=== PATIENT | male | born 1945 | race Caucasian/White ===

== ENCOUNTER 2016-07-30 07:43 | Day surgery (SDC) | payer MEDICARE, BC, OTHER ==
[2016-07-25 16:56] VITALS: BMI 29.7
[~2016-07-30 07:43] MED LIST: MOXIFLOXACIN HCL 0.5% DROPS 3 ML BTL OP ONE; TETRACAINE 0.5% OPHTH (PF) DROPS 4 ML BTL OP ONE; TIMOLOL 0.5% OPHTH SOLN (PF) 0.2 ML DROPERETTE OP ONE
[2016-07-30] MEDS ORDERED: LACTATED RINGERS 1,000 ML IV ONE (08:40)
[2016-07-30 08:45] VITALS: RESP 16; TEMP 97.2
[2016-07-30] MEDS: CYCLOPENTOLATE 1% OPHTH SOLN 2 ML BTL OP ONE ×3 (08:46→09:02)
[2016-07-30] MEDS: PHENYLEPHRINE 2.5% OPHTH DRP 2ML OP NR ×3 (08:50→09:05)
[2016-07-30] MEDS ORDERED: LACTATED RINGERS 1,000 ML IV SCH (09:03)
[2016-07-30] MEDS ORDERED: ALBUTEROL NEBULIZED 2.5 MG/3 ML INHALATION STA (09:07)
[2016-07-30 09:24] LABS: Glucose,Whole Blood 106 mg/dL (75-99)
[2016-07-30] MEDS ORDERED: BALANCED SALT IRRIG SOLN COMB2 15 ML IRRIG.SOLN IRRIGATION ONE (09:55)
[2016-07-30] MEDS ORDERED: LIDOCAINE 1% (PF) 10MG/ML VIAL MISCELLANE ONE (09:55)
[2016-07-30] MEDS ORDERED: HYALURONATE SODIUM INTRAOCULAR 1 EACH SYRINGE (12MG/ML) INTRAOCULA ONE (09:55)
[2016-07-30] MEDS ORDERED: ATROPINE OPHTH SOLN 1% 5ML BTL RIGHT EYE ONE (10:00)
[2016-07-30] MEDS ORDERED: MIDAZOLAM 2 MG/2 ML VIAL ONE (10:02)
[2016-07-30] MEDS ORDERED: EPINEPHrine (PF) 0.3 ML in BALANCED SALT IRRIG SOLN COMB2 500 ML IRRIGATION ONE (10:02)
[2016-07-30] MEDS ORDERED: fentaNYL (PF) 50 MCG/ML 2 ML AMP ONE (10:02)
--- NOTE | 2016-07-30 10:43 | P.OP ---
Date of Procedure: 07/30/16 Preoperative Diagnosis: NS & CS & reg Astig Postoperative Diagnosis: same Procedure(s) Performed: PIOL, OD Implants: BL1UT 19.50 x 2.00 Anesthesia: MAC Surgeon: Rickie Castaneda Estimated Blood Loss (ml): 0 Pathology: none sent Condition: stable Disposition: same day Indications for Procedure: blurry vision Operative Findings: no complications Description of Procedure:
[2016-07-30 11:02] VITALS: BP 152/87; PULSE 63
--- NOTE | 2016-07-31 07:09 | OP ---
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 POSTOPERATIVE DIAGNOSES: Nuclear sclerosis, cortical sclerosis, posterior subcapsular cataract and regular astigmatism. OPERATION: Phacoemulsification of cataract and intraocular lens implant of the right eye. ANESTHESIA: Topical. ESTIMATED BLOOD LOSS: None. SPECIMENS REMOVED: None. COMPLICATIONS: OPERATIVE FINDINGS: NARRATIVE: After obtaining the appropriate consent, the patient was brought to the operating room. There, he was asked to sit upright and the axis of 0 and 180 degrees was identified and marked with a gentian eric marker on the patient's corneal limbus. He was then laid in the proper supine position, prepped and draped in the usual sterile manner. He was approached from his right temporal side and a 5.5 mm Gustavo ring was placed centrally on the patient's cornea of the corneal reflection. The axis of 95 degrees which had been previously identified on preoperative examination was marked with a ( [employer] ) axis marker. At the 11 o'clock position a 1.1 mm stab blade was used to create a paracentesis port. Through this opening, 1% Xylocaine MPF 50-50 mix with balance salt solution was injected into the anterior chamber. This was followed by stabilization of the anterior chamber with Amvisc. At the 9 o'clock position a 2.75 mm sarahy keratome was used to create a self-sealing corneal flap incision. Through this opening, a cystotome was introduced to begin a continuous tear capsulorrhexis, which was completed using the Utrata forceps. Care was taken to ensure that the size of the rhexis was at least the size of the Gustavo eda placed on the patient's cornea. Hydrodissection and hydrodelineation of the lens was accomplished with balanced salt solution. Phacoemulsification of the lens utilizing phaco chop was accomplished in 14.8 seconds at 10% power. Additional Xylocaine MPF was instilled into the anterior chamber. This was followed by removal of the remaining cortex under irrigation and aspiration. Careful polishing was accomplished over the posterior capsule. Viscoelastic was then introduced into the capsular bag, and using both Clinton and pappose capsule polishers the equator and underside of the anterior capsule were polished using these devices. Additionally, the temporal incision was enlarged slightly with the sarahy keratome previously used to make the temporal incision. A [employer] Trulign Toric model BL1UT spherical equivalent of 19.5 diopters, cylindrical power 2.0, was inserted into the capsular bag without difficulty. The lens was rotated approximately 180 degrees to ensure that there was no residual cortex within the capsular bag. The lens was then brought back in alignment with the 95 degrees axis which had previously been noted on the patient's cornea. Removal of the viscoelastic from in and around the intraocular lens was accomplished using irrigation and aspiration as well as from within the anterior chamber. Final adjustments of the intraocular lens were made with a Sinskey hook to bring it into proper alignment. The eye was brought to normal intraocular pressure through the paracentesis port with balanced salt solution. ReSure was used to insure that the temporal and paracentesis wounds were to remain sealed to ensure watertight integrity. The patient received 2 drops of 0.5% timolol followed by 2 drops of Vigamox and a 1% drop of atropine. He was then lightly patched and shielded in the usual manner. There were no complications from the procedure. He tolerated the procedure well and was returned to outpatient recovery in good condition. CALVIN
== END 2016-07-30 11:47 | disposition home or self-care (01) ==
LOC: OR 07:43
PROVIDERS: ATTEND Ophthalmology
DX: H25.13 Age-related nuclear cataract, bilateral (principal); H25.013 Cortical age-related cataract, bilateral; H25.043 Posterior subcapsular polar age-related cataract, bilateral; H52.229 Regular astigmatism, unspecified eye; I10 Essential (primary) hypertension; J44.9 Chronic obstructive pulmonary disease, unspecified; J43.9 Emphysema, unspecified; Z79.82 Long term (current) use of aspirin; Z79.52 Long term (current) use of systemic steroids; Z79.899 Other long term (current) drug therapy; Z88.1 Allergy status to other antibiotic agents; Z91.030 Bee allergy status
CPT/HCPCS: 94640; 66984; V2632; V2788; J2250; J0171; J3010; J2001

== ENCOUNTER 2016-08-20 13:54 | Day surgery (SDC) | payer MEDICARE, BC ==
[2016-08-19 09:01] VITALS: BMI 29.7
[~2016-08-20 13:54] MED LIST changes: +LACTATED RINGERS 1,000 ML IV SCH
[2016-08-20 16:13] VITALS: TEMP 97.4
[2016-08-20] MEDS: PHENYLEPHRINE 2.5% OPHTH DRP 2ML OP NR ×3 (16:14→16:44)
[2016-08-20] MEDS: CYCLOPENTOLATE 1% OPHTH SOLN 2 ML BTL OP ONE ×3 (16:17→16:50)
[2016-08-20] MEDS ORDERED: ALBUTEROL NEBULIZED 2.5 MG/3 ML INHALATION STA (16:35)
[2016-08-20] MEDS ORDERED: MIDAZOLAM 2 MG/2 ML VIAL ONE (17:07)
[2016-08-20] MEDS ORDERED: fentaNYL (PF) 50 MCG/ML 2 ML AMP ONE (17:07)
[2016-08-20] MEDS ORDERED: DUOVISC KIT (GREEN BOX) INTRAOCULA ONE (17:22)
[2016-08-20] MEDS ORDERED: BALANCED SALT IRRIG SOLN COMB2 15 ML IRRIG.SOLN INTRAOCULA ONE (17:22)
[2016-08-20] MEDS ORDERED: EPINEPHrine (PF) 0.3 ML in BALANCED SALT IRRIG SOLN COMB2 500 ML IRRIGATION ONE (17:23)
[2016-08-20] MEDS ORDERED: LIDOCAINE 1% (PF) 10MG/ML VIAL MISCELLANE ONE (17:23)
[2016-08-20] MEDS ORDERED: ATROPINE OPHTH SOLN 1% 5ML BTL LEFT EYE ONE (17:45)
--- NOTE | 2016-08-20 17:51 | P.OP ---
Date of Procedure: 08/20/16 Preoperative Diagnosis: NS & CS & PSC reg astigmatism Postoperative Diagnosis: same Procedure(s) Performed: PIOL, OS Implants: BL1UT 20.50x1.25 Anesthesia: MAC Surgeon: Rickie Castaneda Estimated Blood Loss (ml): 0 Pathology: none sent Condition: stable Disposition: same day Indications for Procedure: blurry vision Operative Findings: No cmoplications Description of Procedure:
[2016-08-20 17:56] VITALS: RESP 16
[2016-08-20 18:12] VITALS: BP 156/73; PULSE 74
--- NOTE | 2016-08-21 12:42 | OP ---
DATE OF SERVICE: 08/20/2016 SURGEON: CATY CARPENTER MD PREOPERATIVE DIAGNOSIS: Nuclear sclerosis, cortical sclerosis, posterior subcapsular cataract and regular astigmatism. POSTOPERATIVE DIAGNOSIS: Nuclear sclerosis, cortical sclerosis, posterior subcapsular cataract and regular astigmatism. OPERATION: Phacoemulsification of cataract and intraocular lens implant of the left eye. ANESTHESIA: Topical. ESTIMATED BLOOD LOSS: None. SPECIMEN TAKEN: None. NARRATIVE: After obtaining the appropriate consent, the patient was brought to the operating room, he was asked to sit upright so that his corneal markings at 0 and 180 degrees were accomplished. This was done using a gentian eric marker. He was then placed in the proper supine position under cardiac monitoring then prepped and draped in the usual sterile manner. He was approached from his left temporal side. Using previously acquired corneal tomographic information axis of 65 degrees was identified and marked using the corneal axis marker inked in gentian eric. In addition to that a 5.5 mm Gustavo ring was placed directly over the Purkinje reflex. At the 5 o'clock position a 1.1 mm stab blade was used to create a paracentesis port. Through this opening, 1% Xylocaine MPF 50-50 mix with balance salt solution was injected into the anterior chamber. This was followed by stabilization of the anterior chamber with Amvisc. At the 3 o'clock position a 2.75 mm sarahy keratome was used to create a self-sealing corneal flap incision in a Langerman fashion. For this opening, a cystotome was introduced to begin a continuous tear capsulorrhexis, which was completed using the Utrata forceps. Care was taken to ensure that the size of the anterior rhexis was at least the size of the eda on the patient's eye from the Gustavo ring. Hydrodissection and hydrodelineation of the lens was accomplished with balanced salt solution. Phacoemulsification of the lens utilizing phaco chop was accomplished in 10.89 seconds at 8% power. Additional Xylocaine MPF was instilled into the anterior chamber. This was followed by removal of the remaining cortex under irrigation and aspiration along with careful polishing of the posterior capsule and capsule vacuum mode. Additional viscoelastic was then used to stabilize the capsular bag using both Elyssa and papoose capsule polishers. Care was taken to ensure as much of the debris from within the capsular equator, anterior capsule and any stubborn debris that was noted was removed from the posterior capsule. The temporal incision was then enlarged slightly with the keratome and a [employer] Trulign model BL1UT 20.5 diopter, 1.25 cylindrical intraocular lens was then inserted into the capsular bag without difficulty. The intraocular lens was rotated approximately 270 degrees and then finally set for alignment with the previously placed corneal axis [place]. The remaining viscoelastic was then removed from in and around the intraocular lens using irrigation and aspiration. Final adjustment of the intraocular lens position was confirmed using the corneal axis marker and the eye was then brought to normal intraocular pressure through the paracentesis port. The temporal incision was coated with ( ReSure ) to ensure proper maintenance of closure so that the intraocular lens did not rotate. He then received 2 drops of 0.5% timolol, 2 drops of 1% atropine and 2 drops of Vigamox. He was then lightly patched and shielded in the usual manner. There were no complications from the procedure. He tolerated the procedure well and was returned to outpatient recovery in good condition. CALVIN
== END 2016-08-20 18:31 | disposition home or self-care (01) ==
LOC: OR 13:54
PROVIDERS: ATTEND Ophthalmology
DX: H25.12 Age-related nuclear cataract, left eye (principal); H25.042 Posterior subcapsular polar age-related cataract, left eye; H52.222 Regular astigmatism, left eye; Z79.82 Long term (current) use of aspirin; Z79.899 Other long term (current) drug therapy; Z88.5 Allergy status to narcotic agent; J44.9 Chronic obstructive pulmonary disease, unspecified; I10 Essential (primary) hypertension
CPT/HCPCS: 94640; 66984; V2632; V2788; J2250; J0171; J3010; J2001

== ENCOUNTER 2018-09-01 15:31 | Inpatient (IN) | payer MEDICARE, BC ==
[2018-09-01] MEDS ORDERED: methylPREDNISolone SOD SUCCI 125 MG/2 ML VIAL IV STA (17:01)
[2018-09-01] MEDS ORDERED: IPRATROPIUM-ALBUTEROL 3 ML NEB INHALATION STA ×3 (17:01→19:43)
--- NOTE | 2018-09-01 17:08 | ED ---
SOB HPI - General Chief Complaint: Shortness of Breath Stated Complaint: SOB Time Seen by Provider: 09/01/18 15:50 Source: patient, RN notes reviewed Mode of arrival: wheelchair Limitations: no limitations - History of Present Illness Initial Comments: This is a 72-year-old male with a history of COPD who states he went out fishing in [place] 3 and 4 days ago who is been having trouble breathing since that time. He seen his advice clerk as late as yesterday with medications and increased home medication. He states is not helping very much she is here today because of the shortness of breath. He denies any fevers chills nausea vomiting sweats he was started on her right as well as amoxicillin. He states he is not getting better he denies any chest pain or other symptoms at this time MD Complaint: shortness of breath - Related Data Home Medications Medication Instructions Recorded Confirmed Montelukast Sodium [Singulair] 10 mg PO HS 01/24/14 09/01/18 Albuterol Nebulized [Ventolin 2.5 mg INHALATION RT-TID 07/25/16 09/01/18 Nebulized] Aspirin [Adult Low Dose Aspirin EC] 81 mg PO DAILY 07/25/16 09/01/18 Metoprolol Tartrate [Lopressor] 25 mg PO BID 07/25/16 09/01/18 Omeprazole 20 mg PO DAILY 07/25/16 09/01/18 Tiotropium [place] [Spiriva] 1 cap INHALATION RT-DAILY 07/25/16 09/01/18 Cetirizine HCl [Zyrtec] 10 mg PO DAILY 08/19/16 09/01/18 ALPRAZolam [Xanax] 0.5 mg PO TID 09/01/18 09/01/18 Amoxic-Pot Clav 875-125Mg 1 tab PO BID 09/01/18 09/01/18 [Augmentin 875-125] Ascorbic Acid [Vitamin C] 1,000 mg PO DAILY 09/01/18 09/01/18 Budesonide [Pulmicort] 0.5 mg INHALATION RT-BID 09/01/18 09/01/18 Cholecalciferol [Vitamin D3 (25 1,000 unit PO DAILY 09/01/18 09/01/18 Mcg = 1000 Iu)] Doxazosin [Cardura] 4 mg PO HS 09/01/18 09/01/18 Ipratropium-Albuterol Nebulize 3 ml INHALATION RT-BID 09/01/18 09/01/18 [Duoneb 0.5 mg-3 mg/3 ml Soln] L.acidoph,Paracasei, B.lactis 1 cap PO DAILY 09/01/18 09/01/18 [Probiotic] Lisinopril [Zestril] 5 mg PO DAILY 09/01/18 09/01/18 Melatonin 10 mg PO DAILY 09/01/18 09/01/18 Sodium Chloride 0.9% Nebuliz 3 ml INHALATION RT-BID 09/01/18 09/01/18 [Saline 0.9% For Nebulization] Tiotropium 18 Mcg/Puff [Spiriva] 1 puff INHALATION RT-DAILY 09/01/18 09/01/18 guaiFENesin 400 mg PO BID 09/01/18 09/01/18 predniSONE See Taper PO DAILY 09/01/18 09/01/18 Allergies Allergy/AdvReac Type Severity Reaction Status Date / Time cefepime Allergy SHUT DOWN Verified 09/01/18 16:41 KIDNEYS ether Allergy Anaphylaxis Verified 09/01/18 16:41 Iodinated Contrast- Oral and Allergy PAST Verified 09/01/18 16:41 IV Dye HISTORY OF [Iodinated Contrast Media - KIDNEY Oral and] PROBLEMS venom-honey bee Allergy Anaphylaxis Verified 09/01/18 16:41 Review of Systems ROS Statement: Those systems with pertinent positive or pertinent negative responses have been documented in the HPI. ROS Other: All systems not noted in ROS Statement are negative. Past Medical History Past Medical History: Blood Disorder, COPD, Eye Disorder, GERD/Reflux, Hypertension Additional Past Medical History / Comment(s): arthritis, diverticulits, Factor V Leiden, bronchial silicone stent, BILAT CATARACTS History of Any Multi-Drug Resistant Organisms: None Reported Past Surgical History: Tonsillectomy Additional Past Surgical History / Comment(s): bronchial silicone stent, fatty tumor removed from chest area, COLONOSCOPY,CATARACT RIGHT EYE Past Anesthesia/Blood Transfusion Reactions: Previous Problems w/ Anesthesia Additional Past Anesthesia/Blood Transfusion Reaction / Comment(s): "as infant turned black and blue from ETHER". FACTOR V LEIDEN Past Psychological History: Anxiety Smoking Status: Former smoker - Past Family History Father Family Medical History: Cancer Mother Family Medical History: Cancer General Exam - General Exam Comments Initial Comments: Is a well-developed sec appearing male who is awake alert oriented 3 Limitations: no limitations General appearance: alert, in no apparent distress Head exam: Present: atraumatic, normocephalic, normal inspection Eye exam: Present: normal appearance, PERRL, EOMI. Absent: scleral icterus, conjunctival injection, periorbital swelling ENT exam: Present: normal exam, mucous membranes moist Neck exam: Present: normal inspection. Absent: tenderness, meningismus, lymph adenopathy Respiratory exam: Present: wheezes, decreased breath sounds. Absent: respiratory distress, rales, rhonchi, stridor Cardiovascular Exam: Present: normal rhythm, tachycardia, normal heart sounds. Absent: systolic murmur, diastolic murmur, rubs, gallop, clicks GI/Abdominal exam: Present: soft, normal bowel sounds. Absent: distended, tenderness, guarding, rebound, rigid Extremities exam: Present: normal inspection, full ROM, normal capillary refill. Absent: tenderness, pedal edema, joint swelling, calf tenderness Back exam: Present: normal inspection Neurological exam: Present: alert, oriented X3, CN II-XII intact Psychiatric exam: Present: normal affect, normal mood Skin exam: Present: warm, dry, intact, normal color. Absent: rash Course Vital Signs 09/01/18 09/01/18 09/01/18 15:35 16:00 16:30 Temperature 97.9 F Pulse Rate 101 H 96 84 Respiratory 24 18 19 Rate Blood Pressure 155/80 146/74 141/69 O2 Sat by Pulse 94 L 94 L 97 Oximetry 09/01/18 09/01/18 09/01/18 17:00 17:02 17:27 Temperature Pulse Rate 80 77 79 Respiratory 20 22 Rate Blood Pressure 132/75 131/74 O2 Sat by Pulse 95 95 Oximetry 09/01/18 09/01/18 09/01/18 17:30 17:36 17:53 Temperature 97.8 F Pulse Rate 80 78 Respiratory 20 Rate Blood Pressure 131/74 O2 Sat by Pulse 97 Oximetry Medical Decision Making - Medical Decision Making I did reevaluate patient several occasions he seem very minimal improvement in his presenting symptoms this far he will be admitted to Dr. Pickering who is on city call Dr. Curry will be consulted. - Lab Data Result diagrams: 09/01/18 17:45 06/26/19 17:45 Lab Results 09/01/18 09/01/18 09/01/18 Range/Units 17:45 17:45 17:45 WBC 12.6 H (3.8-10.6) k/uL RBC 4.21 L (4.30-5.90) m/uL Hgb 12.1 L (13.0-17.5) gm/dL Hct 38.6 L (39.0-53.0) % MCV 91.7 (80.0-100.0) fL MCH 28.8 (25.0-35.0) pg MCHC 31.4 (31.0-37.0) g/dL RDW 15.0 (11.5-15.5) % Plt Count 316 (150-450) k/uL Neutrophils % 86 % Lymphocytes % 9 % Monocytes % 3 % Eosinophils % 1 % Basophils % 0 % Neutrophils # 10.9 H (1.3-7.7) k/uL Lymphocytes # 1.2 (1.0-4.8) k/uL Monocytes # 0.4 (0-1.0) k/uL Eosinophils # 0.1 (0-0.7) k/uL Basophils # 0.0 (0-0.2) k/uL PT (9.0-12.0) sec INR (<1.2) APTT (22.0-30.0) sec Sodium 140 (137-145) mmol/L Potassium 4.5 (3.5-5.1) mmol/L Chloride 106 (98-107) mmol/L Carbon Dioxide 25 (22-30) mmol/L Anion Gap 9 mmol/L BUN 33 H (9-20) mg/dL Creatinine 1.16 (0.66-1.25) mg/dL Est GFR (CKD-EPI)AfAm 72 (>60 ml/min/1.73 sqM) Est GFR (CKD-EPI)NonAf 62 (>60 ml/min/1.73 sqM) Glucose 111 H (74-99) mg/dL Calcium 9.7 (8.4-10.2) mg/dL Magnesium 1.9 (1.6-2.3) mg/dL Total Bilirubin 0.5 (0.2-1.3) mg/dL AST 27 (17-59) U/L ALT 30 (21-72) U/L Alkaline Phosphatase 64 (38-126) U/L Troponin I (0.000-0.034) ng/mL NT-Pro-B Natriuret Pep 1010 pg/mL Total Protein 7.0 (6.3-8.2) g/dL Albumin 4.2 (3.5-5.0) g/dL 09/01/18 09/01/18 Range/Units 17:45 17:45 WBC (3.8-10.6) k/uL RBC (4.30-5.90) m/uL Hgb (13.0-17.5) gm/dL Hct (39.0-53.0) % MCV (80.0-100.0) fL MCH (25.0-35.0) pg MCHC (31.0-37.0) g/dL RDW (11.5-15.5) % Plt Count (150-450) k/uL Neutrophils % % Lymphocytes % % Monocytes % % Eosinophils % % Basophils % % Neutrophils # (1.3-7.7) k/uL Lymphocytes # (1.0-4.8) k/uL Monocytes # (0-1.0) k/uL Eosinophils # (0-0.7) k/uL Basophils # (0-0.2) k/uL PT 10.0 (9.0-12.0) sec INR 0.9 (<1.2) APTT 24.3 (22.0-30.0) sec Sodium (137-145) mmol/L Potassium (3.5-5.1) mmol/L Chloride (98-107) mmol/L Carbon Dioxide (22-30) mmol/L Anion Gap mmol/L BUN (9-20) mg/dL Creatinine (0.66-1.25) mg/dL Est GFR (CKD-EPI)AfAm (>60 ml/min/1.73 sqM) Est GFR (CKD-EPI)NonAf (>60 ml/min/1.73 sqM) Glucose (74-99) mg/dL Calcium (8.4-10.2) mg/dL Magnesium (1.6-2.3) mg/dL Total Bilirubin (0.2-1.3) mg/dL AST (17-59) U/L ALT (21-72) U/L Alkaline Phosphatase (38-126) U/L Troponin I <0.012 (0.000-0.034) ng/mL NT-Pro-B Natriuret Pep pg/mL Total Protein (6.3-8.2) g/dL Albumin (3.5-5.0) g/dL - EKG Data -: EKG Interpreted by Me EKG shows normal: sinus rhythm (Sinus rhythm with frequent PVCs rate was 95. Interval 192 QRS duration 106 QT since QTC 368/[address] configuration) - Radiology Data Radiology results: report reviewed (I did review the imaging and report no acute changes are noted chronic changes are seen), image reviewed Critical Care Time Critical Care Time: Yes Critical Care Time: 31 minutes of critical care time which was initial presentation with history physical labs x-rays multiple reevaluation the patient responsive therapy review of old charting was available discussed with patient family members discussion with the main physician admission orders and documentation of the above Disposition Clinical Impression: Acute exacerbation of chronic obstructive airways disease, Adult respiratory distress syndrome, Failure of outpatient treatment Disposition: ADMITTED IP TO THIS HOSP Condition: Fair Referrals: Keshawn Suarez MD [Primary Care Provider] - 1-2 days
[2018-09-01 18:00] LABS: Basophils % (A) 0 %; Eosinophils # (A) 0.1 k/uL (0-0.7); Eosinophils % (A) 1 %; HCT 38.6 % (39.0-53.0); HGB 12.1 gm/dL (13.0-17.5); Lymphocytes # (A) 1.2 k/uL (1.0-4.8); Lymphocytes % (A) 9 %; MCH 28.8 pg (25.0-35.0); MCHC 31.4 g/dL (31.0-37.0); MCV 91.7 fL (80.0-100.0); Mean Platelet Volume 7.2; Monocytes # (A) 0.4 k/uL (0-1.0); Monocytes % (A) 3 %; Neutrophils # (A) 10.9 k/uL (1.3-7.7); Neutrophils % (A) 86 %; Platelet Count 316 k/uL (150-450); RBC 4.21 m/uL (4.30-5.90); WBC 12.6 k/uL (3.8-10.6)
--- NOTE | 2018-09-01 18:05 | XR ---
EXAMINATION: XR chest 2V DATE AND TIME: 09/01/2018 5:24 PM CLINICAL INDICATION: PHH; difficulty breathing TECHNIQUE: Departmental protocol COMPARISON: 08/31/2018 FINDINGS: There is hyperinflation, but the lungs are clear of acute processes. The lateral radiograph redemonst rates the previously seen band of added opacity over the cardiac silhouette, corresponding with the r ight middle lobe lateral segment. The pleural spaces are negative. The cardiac silhouette is not enlarged. The remainder of the mediastinal silhouette is unremarkable. The skeletal structures and soft tissues are negative for acute findings. IMPRESSION: 1. NO ACUTE PROCESS. 2. Chronic right middle lobe lateral segment band of volume loss redemonstrated, going back to 2018 r adiographs. Nonurgent follow-up chest CT with contrast is advised to further characterize.
[2018-09-01 18:09] LABS: INR 0.9 (<1.2); Partial Thromboplastin Time 24.3 sec (22.0-30.0)
[2018-09-01 18:11] LABS: Albumin 4.2 g/dL (3.5-5.0); Calcium 9.7 mg/dL (8.4-10.2); Magnesium 1.9 mg/dL (1.6-2.3); Potassium 4.5 mmol/L (3.5-5.1); Total Bilirubin 0.5 mg/dL (0.2-1.3)
[2018-09-01] MEDS ORDERED: MAGNESIUM SULFATE-D5W PMX 1 GM in DEXTROSE/WATER 1 100ML.BAG IVPB ONE (19:20)
[2018-09-01] MEDS: BUDESONIDE 0.5 MG/2 ML NEBU INHALATION SCH (20:11)
[2018-09-01] MEDS: IPRATROPIUM-ALBUTEROL 3 ML NEB INHALATION SCH ×2 (20:12→23:43)
[2018-09-01] MEDS: MONTELUKAST 10 MG TAB PO SCH (22:01)
[2018-09-01] MEDS: guaiFENesin SYRUP 100MG/5ML 200 MG/10 ML CUP PO SCH (22:02)
[2018-09-01] MEDS: METOPROLOL TARTRATE 25 MG TAB PO SCH (22:02)
[2018-09-01] MEDS: ALPRAZolam 0.5 MG TAB PO SCH (22:02)
[2018-09-01] MEDS: DOXAZOSIN 4 MG TAB PO SCH (22:02)
[2018-09-01] MEDS: AMOXIC-POT CLAV 875-125MG 1 EACH TAB PO SCH (22:05)
[2018-09-02] MEDS: methylPREDNISolone SOD SUCCI 125 MG/2 ML VIAL IV SCH ×5 (00:18→23:25)
[2018-09-02] MEDS: IPRATROPIUM-ALBUTEROL 3 ML NEB INHALATION SCH ×7 (03:08→23:32)
[2018-09-02] MEDS: BUDESONIDE 0.5 MG/2 ML NEBU INHALATION SCH ×2 (06:59→18:55)
[2018-09-02] MEDS ORDERED: NON-FORMULARY DRUG (Tiotropium Bromide [Spiriva] 1 CAP) INHALATION SCH (08:00)
[2018-09-02] MEDS ORDERED: MELATONIN 5 MG TABLET PO SCH ×2 (09:00→21:00)
[2018-09-02] MEDS ORDERED: PANTOPRAZOLE 40 MG TABLET PO SCH (09:00)
[2018-09-02] MEDS: CHOLECALCIFEROL 1,000 UNIT TAB PO SCH ×2 (09:19→09:20)
[2018-09-02] MEDS: METOPROLOL TARTRATE 25 MG TAB PO SCH ×2 (09:19→20:51)
[2018-09-02] MEDS: LISINOPRIL 5 MG TAB PO SCH (09:20)
[2018-09-02] MEDS: ALPRAZolam 0.5 MG TAB PO SCH ×3 (09:20→21:12)
[2018-09-02] MEDS: AMOXIC-POT CLAV 875-125MG 1 EACH TAB PO SCH ×2 (09:20→20:50)
[2018-09-02] MEDS: ASPIRIN 81 MG PO SCH (09:20)
[2018-09-02] MEDS: ASCORBIC ACID 500 MG TAB PO SCH (09:20)
[2018-09-02] MEDS: LORATADINE 10 MG TAB PO SCH (09:21)
[2018-09-02] MEDS: guaiFENesin SYRUP 100MG/5ML 200 MG/10 ML CUP PO SCH ×2 (09:21→20:52)
[2018-09-02] MEDS: LACTOBACILLUS ACIDOPH & BULGAR 1 EACH PACKET PO SCH (09:21)
--- NOTE | 2018-09-02 11:13 | P.HPIM ---
History of Present Illness This is a pleasant 72 years old male with past medical history of COPD status post bronchial stent, GERD, hypertension, diverticulitis, factor V laiden deficiency , bilateral cataract. [facility] His primary care physician is Dr. Keshawn Suarez. He presents with dyspnea and worsening cough with clear phlegm for 4-5 days duration. He denies chest pain only with coughing. 2 days ago on Thursday he so Dr. Cortez in the office, where his chest x-ray was negative as per patient, he was placed on prednisone and Augmentin. However Thursday evening and yesterday morning he noticed his oxygen was a dropping in the 80s on exertion and coming back to normal at rest so he came to emergency room. He has pulse oximetry at home He denies abdominal pain, no change in urine or bowel habits. No dizziness. Patient states that he has history of hyponatremia and certain point was 118 and that his physician recommended salt with diets, so his diet was changed from a heart healthy to regular upon his request he is not on home oxygen or steroids. Vital signs stable and patient is afebrile, saturating 93% on 3 L. leukocytosis of 12.6 k, creatinine 1.1, troponin is negative, rest of CBC and BMP were unremarkable. INR 0.9, liver enzymes not elevated. EKG showing normal sinus rhythm at 95 with PVC, nonspecific ST-T elevation, QTC 462. Chest x-ray: No acute process and right [place] lobe band of volume loss, recommended computed tomography scan with contrast. In the emergency room patient was started on bronchodilator and parenteral steroids. also Augmentin Review of Systems CONSTITUTIONAL: No fever, no malaise, no fatigue. HEENT: No recent visual problems or hearing problems. Denied any sore throat. CARDIOVASCULAR: No orthopnea, PND, no palpitations, no syncope. PULMONARY: No shortness of breath, no cough, no hemoptysis. GASTROINTESTINAL: No diarrhea, no nausea, no vomiting, no abdominal pain. Normoactive bowel sounds. NEUROLOGICAL: No headaches, no weakness, no numbness. HEMATOLOGICAL: Denies any bleeding or petechiae. GENITOURINARY: Denies any burning micturition, frequency, or urgency. MUSCULOSKELETAL/RHEUMATOLOGICAL: Denies any joint pain, swelling, or any muscle pain. ENDOCRINE: Denies any polyuria or polydipsia. Past Medical History Past Medical History: Blood Disorder, COPD, Eye Disorder, GERD/Reflux, Hypertension Additional Past Medical History / Comment(s): arthritis, diverticulits, Factor V Leiden, bronchial silicone stent, BILAT CATARACTS History of Any Multi-Drug Resistant Organisms: None Reported Past Surgical History: Hernia Repair, Tonsillectomy Additional Past Surgical History / Comment(s): bronchial silicone stent, fatty tumor removed from chest area, COLONOSCOPY,CATARACT RIGHT EYE Past Anesthesia/Blood Transfusion Reactions: Previous Problems w/ Anesthesia Additional Past Anesthesia/Blood Transfusion Reaction / Comment(s): "as turned black and blue from ETHER". FACTOR V LEIDEN Past Psychological History: Anxiety Smoking Status: Former smoker Past Alcohol Use History: None Reported Additional Past Alcohol Use History / Comment(s): STARTED SMOKING AT AGE 14 ,QUIT SMOKING 2012 Past Drug Use History: None Reported - Past Family History Father Family Medical History: Cancer Additional Family Medical History / Comment(s): colon cancer Mother Family Medical History: Cancer Additional Family Medical History / Comment(s): leukemia Medications and Allergies Home Medications Medication Instructions Recorded Confirmed Type Montelukast Sodium [Singulair] 10 mg PO HS 01/24/14 09/01/18 History Albuterol Nebulized [Ventolin 2.5 mg INHALATION RT-TID 07/25/16 09/01/18 History Nebulized] Aspirin [Adult Low Dose Aspirin EC] 81 mg PO DAILY 07/25/16 09/01/18 History Metoprolol Tartrate [Lopressor] 25 mg PO BID 07/25/16 09/01/18 History Omeprazole 20 mg PO DAILY 07/25/16 09/01/18 History Tiotropium [place] [Spiriva] 1 cap INHALATION RT-DAILY 07/25/16 09/01/18 History Cetirizine HCl [Zyrtec] 10 mg PO DAILY 08/19/16 09/01/18 History ALPRAZolam [Xanax] 0.5 mg PO TID 09/01/18 09/01/18 History Amoxic-Pot Clav 875-125Mg 1 tab PO BID 09/01/18 09/01/18 History [Augmentin 875-125] Ascorbic Acid [Vitamin C] 1,000 mg PO DAILY 09/01/18 09/01/18 History Budesonide [Pulmicort] 0.5 mg INHALATION RT-BID 09/01/18 09/01/18 History Cholecalciferol [Vitamin D3 (25 1,000 unit PO DAILY 09/01/18 09/01/18 History Mcg = 1000 Iu)] Doxazosin [Cardura] 4 mg PO HS 09/01/18 09/01/18 History Ipratropium-Albuterol Nebulize 3 ml INHALATION RT-BID 09/01/18 09/01/18 History [Duoneb 0.5 mg-3 mg/3 ml Soln] L.acidoph,Paracasei, B.lactis 1 cap PO DAILY 09/01/18 09/01/18 History [Probiotic] Lisinopril [Zestril] 5 mg PO DAILY 09/01/18 09/01/18 History Melatonin 10 mg PO DAILY 09/01/18 09/01/18 History Sodium Chloride 0.9% Nebuliz 3 ml INHALATION RT-BID 09/01/18 09/01/18 History [Saline 0.9% For Nebulization] Tiotropium 18 Mcg/Puff [Spiriva] 1 puff INHALATION RT-DAILY 09/01/18 09/01/18 History guaiFENesin 400 mg PO BID 09/01/18 09/01/18 History predniSONE See Taper PO DAILY 09/01/18 09/01/18 History Allergies Allergy/AdvReac Type Severity Reaction Status Date / Time cefepime Allergy SHUT DOWN Verified 09/01/18 16:41 KIDNEYS ether Allergy Anaphylaxis Verified 09/01/18 16:41 Iodinated Contrast- Oral and Allergy PAST Verified 09/01/18 16:41 IV Dye HISTORY OF [Iodinated Contrast Media - KIDNEY Oral and] PROBLEMS venom-honey bee Allergy Anaphylaxis Verified 09/01/18 16:41 Physical Exam Vitals: Vital Signs Temp Pulse Pulse Pulse Resp BP BP 09/02/18 10:52 98.2 F 83 20 128/67 09/02/18 08:00 77 18 09/02/18 07:15 82 09/02/18 06:59 80 09/02/18 04:57 88 09/02/18 04:49 88 09/02/18 04:35 97.5 F L 77 18 116/59 09/02/18 00:00 18 09/01/18 20:57 97.5 F L 88 18 136/64 09/01/18 20:08 84 09/01/18 19:40 80 09/01/18 19:23 98.2 F 95 18 118/66 09/01/18 17:53 97.8 F 09/01/18 17:36 78 09/01/18 17:30 80 20 131/74 09/01/18 17:27 79 09/01/18 17:02 77 22 131/74 09/01/18 17:00 80 20 132/75 09/01/18 16:30 84 19 141/69 09/01/18 16:00 96 18 146/74 09/01/18 15:35 97.9 F 101 H 24 155/80 Pulse Ox 09/02/18 10:52 95 09/02/18 08:00 09/02/18 07:15 09/02/18 06:59 09/02/18 04:57 09/02/18 04:49 09/02/18 04:35 93 L 09/02/18 00:00 09/01/18 20:57 96 09/01/18 20:08 09/01/18 19:40 09/01/18 19:23 97 09/01/18 17:53 09/01/18 17:36 09/01/18 17:30 97 09/01/18 17:27 09/01/18 17:02 95 09/01/18 17:00 95 09/01/18 16:30 97 09/01/18 16:00 94 L 09/01/18 15:35 94 L Intake and Output 09/01/18 09/02/18 09/02/18 22:59 06:59 14:59 Intake Total 236 Balance 236 Intake: Oral 236 Other: Voiding Method Toilet Toilet # Voids 1 Weight 74.843 kg GENERAL: The patient is alert and oriented x3, not in any acute distress. Well developed, well nourished. HEENT: Pupils are round and equally reacting to light. EOMI. No scleral icterus. No conjunctival pallor. Normocephalic, atraumatic. No pharyngeal erythema. No thyromegaly. CARDIOVASCULAR: S1 and S2 present. No murmurs, rubs, or gallops. -PULMONARY: Chest is clear to auscultation, scattered expiratory wheezing. No c rackles. ABDOMEN: Soft, nontender, nondistended, normoactive bowel sounds. No palpable organomegaly. MUSCULOSKELETAL: No joint swelling or deformity. EXTREMITIES: No cyanosis, clubbing, or pedal edema. NEUROLOGICAL: Gross neurological examination did not reveal any focal deficits. SKIN: No rashes. Results CBC & Chem 7: 09/01/18 17:45 09/01/18 17:45 Labs: Abnormal Lab Results - Last 24 Hours (Table) 09/01/18 09/01/18 Range/Units 17:45 17:45 WBC 12.6 H (3.8-10.6) k/uL RBC 4.21 L (4.30-5.90) m/uL Hgb 12.1 L (13.0-17.5) gm/dL Hct 38.6 L (39.0-53.0) % Neutrophils # 10.9 H (1.3-7.7) k/uL BUN 33 H (9-20) mg/dL Glucose 111 H (74-99) mg/dL Thrombosis Risk Factor Assmnt - Choose All That Apply Any of the Below Risk Factors Present?: Yes Each Factor Represents 1 point: Abnormal pulmonary function (COPD), Age 41-60 years Other Risk Factors: Yes Each Risk Factor Represents 2 Points: Age 61-74 years Thrombosis Risk Factor Assessment Total Risk Factor Score: 4 Thrombosis Risk Factor Assessment Level: Moderate Risk Assessment and Plan Assessment: Acute COPD exacerbation. Failed outpatient management Acute hypoxic respiratory failure Right middle lobe band of volume loss, recommended CAT scan of the chest by radiologist Hypertension Leukocytosis, He is on steroids as well History of hyponatremia History of GERD History of Diverticulitis History of factor V laiden deficiency Bilateral cataract Plan: This is a pleasant 72 years old male who presents because of COPD exacerbation. Continue with oxygen, steroids, breathing treatment and bronchodilator. Continue with antibiotic. Pulmonary consult. Labs and medication were reviewed.. Continue same treatment. Continue with symptomatic treatment. Resume home medication. Monitor lytes and vitals. DVT and GI prophylaxis. Further recommendations of the clinical course of the patient DVT prophylaxis: Subcutaneous heparin GI Prophylaxis: Pepcid PT/OT: Pending Prognosis is guarded
--- NOTE | 2018-09-02 13:02 | P.CNPUL ---
History of Present Illness Consult date: 09/02/18 Requesting physician: Beau Curry Reason for consult: dyspnea, cough, COPD, hypoxemia Chief complaint: Cough, congestion, acute on chronic hypoxemic respiratory failure History of present illness: This is a 72-year-old white male patient with past medical history of advanced COPD, with baseline FEV1 of 1.04 L or 39% of predicted, consistent with stage III COPD, patient used to wear oxygen, but has not worn it in the last year, who presented to the emergency department on 09/01/2018 with significant trouble breathing, patient's pulse ox was in the 80s at home, he has been progressively worse since the weekend. He states he has been out fishing on Thursday and Thursday morning, in the morning temp's were 49F, and increased humidity, may have precipitated his exacerbation of COPD. He denied any fevers, chills, denies any nausea vomiting. Patient follows with Dr. Keshawn Suarez for primary care services, also follows with Dr. Cortez in the pulmonary clinic, he was seen by Dr. Cortez on outpatient basis on Thursday, was given IM dose of Depo-Medrol, was started on Augmentin. He was started on a prednisone burst taper, his maintenance inhalers include nebulized Pulmicort and Perforomist, he was recently restarted on Spiriva, patient is on Singulair, and Claritin. Chest x-ray was completed showed no acute process. Showed chronic right middle lobe lateral segment volume loss, previously seen on radiographs from 2018. Lab work showed a white blood cell count of 12.6, hemoglobin of 12.1, platelet count was 316, electrodes are within normal limits, BUN is 33, creatinine is 1.16, proBNP is 1010, troponin was negative 1, LFTs within normal limits. Review of Systems All systems: negative Constitutional: Denies chills, Denies fever Eyes: denies blurred vision, denies pain Ears, nose, mouth and throat: Denies headache, Denies sore throat Cardiovascular: Denies chest pain, Denies shortness of breath Respiratory: Reports cough with sputum, Reports dyspnea, Reports home oxygen, Reports respiratory infections, Reports wheezing, Denies cough Gastrointestinal: Denies abdominal pain, Denies diarrhea, Denies nausea, Denies vomiting Musculoskeletal: Denies myalgias Integumentary: Denies pruritus, Denies rash Neurological: Denies numbness, Denies weakness Psychiatric: Denies anxiety, Denies depression Endocrine: Denies fatigue, Denies weight change Past Medical History Past Medical History: Blood Disorder, COPD, Eye Disorder, GERD/Reflux, Hypertension Additional Past Medical History / Comment(s): arthritis, diverticulits, Factor V Leiden, bronchial silicone stent, BILAT CATARACTS History of Any Multi-Drug Resistant Organisms: None Reported Past Surgical History: Hernia Repair, Tonsillectomy Additional Past Surgical History / Comment(s): bronchial silicone stent, fatty tumor removed from chest area, COLONOSCOPY,CATARACT RIGHT EYE Past Anesthesia/Blood Transfusion Reactions: Previous Problems w/ Anesthesia Additional Past Anesthesia/Blood Transfusion Reaction / Comment(s): "as infant turned black and blue from ETHER". FACTOR V LEIDEN Past Psychological History: Anxiety Smoking Status: Former smoker Past Alcohol Use History: None Reported Additional Past Alcohol Use History / Comment(s): STARTED SMOKING AT AGE 14 ,QUIT SMOKING 2012 Past Drug Use History: None Reported - Past Family History Father Family Medical History: Cancer Additional Family Medical History / Comment(s): colon cancer Mother Family Medical History: Cancer Additional Family Medical History / Comment(s): leukemia Medications and Allergies Home Medications Medication Instructions Recorded Confirmed Type Montelukast Sodium [Singulair] 10 mg PO HS 01/24/14 09/01/18 History Albuterol Nebulized [Ventolin 2.5 mg INHALATION RT-TID 07/25/16 09/01/18 History Nebulized] Aspirin [Adult Low Dose Aspirin EC] 81 mg PO DAILY 07/25/16 09/01/18 History Metoprolol Tartrate [Lopressor] 25 mg PO BID 07/25/16 09/01/18 History Omeprazole 20 mg PO DAILY 07/25/16 09/01/18 History Tiotropium [place] [Spiriva] 1 cap INHALATION RT-DAILY 07/25/16 09/01/18 History Cetirizine HCl [Zyrtec] 10 mg PO DAILY 08/19/16 09/01/18 History ALPRAZolam [Xanax] 0.5 mg PO TID 09/01/18 09/01/18 History Amoxic-Pot Clav 875-125Mg 1 tab PO BID 09/01/18 09/01/18 History [Augmentin 875-125] Ascorbic Acid [Vitamin C] 1,000 mg PO DAILY 09/01/18 09/01/18 History Budesonide [Pulmicort] 0.5 mg INHALATION RT-BID 09/01/18 09/01/18 History Cholecalciferol [Vitamin D3 (25 1,000 unit PO DAILY 09/01/18 09/01/18 History Mcg = 1000 Iu)] Doxazosin [Cardura] 4 mg PO HS 09/01/18 09/01/18 History Ipratropium-Albuterol Nebulize 3 ml INHALATION RT-BID 09/01/18 09/01/18 History [Duoneb 0.5 mg-3 mg/3 ml Soln] L.acidoph,Paracasei, B.lactis 1 cap PO DAILY 09/01/18 09/01/18 History [Probiotic] Lisinopril [Zestril] 5 mg PO DAILY 09/01/18 09/01/18 History Melatonin 10 mg PO DAILY 09/01/18 09/01/18 History Sodium Chloride 0.9% Nebuliz 3 ml INHALATION RT-BID 09/01/18 09/01/18 History [Saline 0.9% For Nebulization] Tiotropium 18 Mcg/Puff [Spiriva] 1 puff INHALATION RT-DAILY 09/01/18 09/01/18 History guaiFENesin 400 mg PO BID 09/01/18 09/01/18 History predniSONE See Taper PO DAILY 09/01/18 09/01/18 History Allergies Allergy/AdvReac Type Severity Reaction Status Date / Time cefepime Allergy SHUT DOWN Verified 09/01/18 16:41 KIDNEYS ether Allergy Anaphylaxis Verified 09/01/18 16:41 Iodinated Contrast- Oral and Allergy PAST Verified 09/01/18 16:41 IV Dye HISTORY OF [Iodinated Contrast Media - KIDNEY Oral and] PROBLEMS venom-honey bee Allergy Anaphylaxis Verified 09/01/18 16:41 Physical Exam Vitals: Vital Signs Temp Pulse Pulse Pulse Resp BP BP 09/02/18 12:14 97.6 F 80 17 115/65 09/02/18 12:12 83 77 20 09/02/18 11:05 85 09/02/18 10:54 84 09/02/18 10:52 98.2 F 83 20 128/67 09/02/18 08:00 77 18 09/02/18 07:15 82 09/02/18 06:59 80 09/02/18 04:57 88 09/02/18 04:49 88 09/02/18 04:35 97.5 F L 77 18 116/59 09/02/18 00:00 18 09/01/18 20:57 97.5 F L 88 18 136/64 09/01/18 20:08 84 09/01/18 19:40 80 09/01/18 19:23 98.2 F 95 18 118/66 09/01/18 17:53 97.8 F 09/01/18 17:36 78 09/01/18 17:30 80 20 131/74 09/01/18 17:27 79 09/01/18 17:02 77 22 131/74 09/01/18 17:00 80 20 132/75 09/01/18 16:30 84 19 141/69 09/01/18 16:00 96 18 146/74 09/01/18 15:35 97.9 F 101 H 24 155/80 Pulse Ox 09/02/18 12:14 95 09/02/18 12:12 09/02/18 11:05 09/02/18 10:54 09/02/18 10:52 95 09/02/18 08:00 09/02/18 07:15 09/02/18 06:59 09/02/18 04:57 09/02/18 04:49 09/02/18 04:35 93 L 09/02/18 00:00 09/01/18 20:57 96 09/01/18 20:08 09/01/18 19:40 09/01/18 19:23 97 09/01/18 17:53 09/01/18 17:36 09/01/18 17:30 97 09/01/18 17:27 09/01/18 17:02 95 09/01/18 17:00 95 09/01/18 16:30 97 09/01/18 16:00 94 L 09/01/18 15:35 94 L Intake and Output 09/01/18 09/02/18 09/02/18 22:59 06:59 14:59 Intake Total 236 240 Balance 236 240 Intake: Oral 236 240 Other: Voiding Method Toilet Toilet # Voids 1 3 Weight 74.843 kg GENERAL EXAM: Alert, wasn't, 72-year-old white male on 2 L of oxygen with a pulse ox of 95%, comfortable in no apparent distress. HEAD: Normocephalic/atraumatic. EYES: Normal reaction of pupils, equal size. Conjunctiva pink, sclera white. NOSE: Clear with pink turbinates. THROAT: No erythema or exudates. NECK: No masses, no JVD, no thyroid enlargement, no adenopathy. CHEST: No chest wall deformity. Symmetrical expansion. LUNGS: Equal air entry with diminished breath sounds at the bases, no significant wheezing, rhonchi or rales CVS: Regular rate and rhythm, normal S1 and S2, no gallops, no murmurs, no rubs ABDOMEN: Soft, nontender. No hepatosplenomegaly, normal bowel sounds, no guarding or rigidity. EXTREMITIES: No clubbing, no edema, no cyanosis, 2+ pulses and upper and lower extremities. MUSCULOSKELETAL: Muscle strength and tone normal. SPINE: No scoliosis or deformity SKIN: No rashes CENTRAL NERVOUS SYSTEM: Alert and oriented -3. No focal deficits, tone is normal in all 4 extremities. PSYCHIATRIC: Alert and oriented -3. Appropriate affect. Intact judgment and insight. Results - Laboratory Findings CBC and BMP: 09/01/18 17:45 09/01/18 17:45 PT/INR, D-dimer PT 10.0 sec (9.0-12.0) 09/01/18 17:45 INR 0.9 (<1.2) 09/01/18 17:45 Abnormal lab findings: Abnormal Labs 09/01/18 09/01/18 17:45 17:45 WBC 12.6 H RBC 4.21 L Hgb 12.1 L Hct 38.6 L Neutrophils # 10.9 H BUN 33 H Glucose 111 H - Diagnostic Findings Chest x-ray: report reviewed, image reviewed Assessment and Plan Plan: Assessment: #1. Acute on chronic hypoxemic respiratory failure related to acute exacerbation of COPD, chest x-ray showed no acute pulmonary process, failure of outpatient treatment. #2. History of advanced COPD, with a baseline FEV1 of 1.04 L or 39% predicted, consistent with stage III COPD, patient used to wear oxygen at home, however has not worn it lately in the last year, history of bronchial stenting, tracheobronchomalacia #3. GERD/reflux #4. Hypertension #5. Factor V Leiden deficiency #6. Bilateral cataracts #7. Former smoker, quit smoking 2012, carries 53 years of smoking #8. Anxiety #9. History of recurrent pseudomonal pulmonary infections #10. Obstructive sleep apnea on CPAP therapy Plan: We'll continue with current medical treatment, IV steroids, nebulized bronchodilators, Pulmicort and Perforomist, and antibiotics, will treat the patient's acute exacerbation of COPD. Chest X-ray has been reviewed, showing no acute pulmonary process. We'll obtain a sputum culture in view of patient's history of pseudomonal infections. We'll continue to follow. I performed a history & physical examination of the patient and discussed their management with my nurse practitioner, Koki Dwyer. I reviewed the nurse practitioner's note and agree with the documented findings and plan of care. Lung sounds are positive for diminished breath sounds throughout the lung diaz. The findings and the impression was discussed with the patient. I attest to the documentation by the nurse practitioner. Time with Patient: Greater than 30
[2018-09-02] MEDS: INSULIN ASPART (NovoLOG) 100 UNIT/ML VIAL SQ SCH ×3 (13:07→20:33)
[2018-09-02 17:50] LABS: Glucose,Whole Blood 199 mg/dL (75-99)
[2018-09-02 20:21] LABS: Glucose,Whole Blood 104 mg/dL (75-99)
[2018-09-02] MEDS: MONTELUKAST 10 MG TAB PO SCH (20:51)
[2018-09-02] MEDS: DOXAZOSIN 4 MG TAB PO SCH (21:13)
[2018-09-03] MEDS: IPRATROPIUM-ALBUTEROL 3 ML NEB INHALATION SCH ×3 (04:01→11:32)
[2018-09-03 05:59] VITALS: RESP 18; TEMP 97.6
[2018-09-03] MEDS ORDERED: PANTOPRAZOLE 40 MG TABLET PO SCH (06:00)
[2018-09-03] MEDS: methylPREDNISolone SOD SUCCI 125 MG/2 ML VIAL IV SCH ×2 (06:02→13:11)
[2018-09-03 07:23] LABS: Glucose,Whole Blood 146 mg/dL (75-99)
[2018-09-03] MEDS: BUDESONIDE 0.5 MG/2 ML NEBU INHALATION SCH (07:32)
[2018-09-03] MEDS: INSULIN ASPART (NovoLOG) 100 UNIT/ML VIAL SQ SCH ×2 (09:12→13:11)
[2018-09-03] MEDS: ASPIRIN 81 MG PO SCH (09:14)
[2018-09-03] MEDS: ALPRAZolam 0.5 MG TAB PO SCH (09:14)
[2018-09-03] MEDS: ASCORBIC ACID 500 MG TAB PO SCH (09:14)
[2018-09-03] MEDS: AMOXIC-POT CLAV 875-125MG 1 EACH TAB PO SCH (09:14)
[2018-09-03] MEDS: guaiFENesin SYRUP 100MG/5ML 200 MG/10 ML CUP PO SCH (09:15)
[2018-09-03] MEDS: LACTOBACILLUS ACIDOPH & BULGAR 1 EACH PACKET PO SCH (09:16)
[2018-09-03] MEDS: LORATADINE 10 MG TAB PO SCH (09:16)
[2018-09-03] MEDS: METOPROLOL TARTRATE 25 MG TAB PO SCH (09:25)
[2018-09-03] MEDS: LISINOPRIL 5 MG TAB PO SCH (09:25)
[2018-09-03 11:01] LABS: Glucose,Whole Blood 168 mg/dL (75-99)
[2018-09-03 11:29] VITALS: BP 113/62
[2018-09-03 11:35] VITALS: PULSE 74
--- NOTE | 2018-09-03 12:09 | P.DS ---
Providers Date of admission: 09/01/18 19:22 Attending physician: Beau Curry MD Consults: 09/01/18 19:22 Consult Physician Routine Consulting Provider: Ramona Cortez Consult Reason/Comments: COPD exacerbation, outpatient treatment failure Do you want consulting provider notified?: Yes 09/02/18 11:12 Consult Physician Urgent Consulting Provider: Roque Perez Consult Reason/Comments: copd failed outpt Rx Do you want consulting provider notified?: Yes Primary care physician: Keshawn Suarez MD Hospital Course: Diagnoses: Acute COPD exacerbation. Failed outpatient management Acute hypoxic respiratory failure Right middle lobe band of volume loss, recommended CAT scan of the chest by radiologist Hypertension Leukocytosis, He is on steroids as well History of hyponatremia History of GERD History of Diverticulitis History of factor V laiden deficiency Bilateral cataract Hospital course This is a pleasant 72 years old male with past medical history of COPD status post bronchial stent, GERD, hypertension, diverticulitis, factor V laiden deficiency , bilateral cataract. He follows with Dr. Cortez/Chris in the outpatient setting. His primary care physician is Dr. Keshawn Suarez. He presents with dyspnea and worsening cough with clear phlegm for 4-5 days duration. He denies chest pain only with coughing. 2 days ago on Thursday he so Dr. Cortez in the office, where his chest x-ray was negative as per patient, he was placed on prednisone and Augmentin. However Thursday evening and yesterday morning he noticed his oxygen was a dropping in the 80s on exertion and coming back to normal at rest so he came to emergency room. He has pulse oximetry at home. Patient was admitted to the hospital treated with intravenous steroids and antibiotics Augmentin, patient showed interval improvement in his back to his baseline. Patient has been evaluated by [facility] director Dr. Perez sees him in the office as well, Dr. Perez clears the patient today for discharge. Patient was eager to go home and states that his back to his baseline. Exertional oxygen is checked and about 90%. Problems and management plan were discussed with the patient and he verbalized understanding and acceptance Patient was found stable and can be discharged home however he needs follow-up as an outpatient. Patient was instructed to follow up with his PCP in one week and with his [facility] director Dr. Cortez in 2 weeks and he agrees Gen: patient is a AAOx3, no distress CVS: S1-S2, RRR, no murmur Lungs: B/L CTA, no wheezing Abdomen: soft, no distention, no tenderness, positive bowel sounds Extremity: no leg edema or induration Time spent more than 35 minutes Patient Condition at Discharge: Fair Plan - Discharge Summary Discharge Rx Participant: No New Discharge Prescriptions: Continue RX: Montelukast Sodium [Singulair] 10 mg PO HS RX: Tiotropium [place] [Spiriva] 1 cap INHALATION RT-DAILY RX: Omeprazole 20 mg PO DAILY RX: Metoprolol Tartrate [Lopressor] 25 mg PO BID RX: Albuterol Nebulized [Ventolin Nebulized] 2.5 mg INHALATION RT-TID RX: Aspirin [Adult Low Dose Aspirin EC] 81 mg PO DAILY RX: Cetirizine HCl [Zyrtec] 10 mg PO DAILY RX: Tiotropium 18 Mcg/Puff [Spiriva] 1 puff INHALATION RT-DAILY RX: Melatonin 10 mg PO DAILY RX: L.acidoph,Paracasei, B.lactis [Probiotic] 1 cap PO DAILY RX: Ascorbic Acid [Vitamin C] 1,000 mg PO DAILY RX: Sodium Chloride 0.9% Nebuliz [Saline 0.9% For Nebulization] 3 ml INHALATION RT-BID RX: Budesonide [Pulmicort] 0.5 mg INHALATION RT-BID RX: Lisinopril [Zestril] 5 mg PO DAILY RX: Ipratropium-Albuterol Nebulize [Duoneb 0.5 mg-3 mg/3 ml Soln] 3 ml INHALATION RT-BID RX: Cholecalciferol [Vitamin D3 (25 Mcg = 1000 Iu)] 1,000 unit PO DAILY RX: Doxazosin [Cardura] 4 mg PO HS RX: predniSONE See Taper PO DAILY RX: ALPRAZolam [Xanax] 0.5 mg PO TID RX: Amoxic-Pot Clav 875-125Mg [Augmentin 875-125] 1 tab PO BID RX: guaiFENesin 400 mg PO BID Discharge Medication List RX: Montelukast Sodium [Singulair] 10 mg PO HS 01/24/14 [History] RX: Albuterol Nebulized [Ventolin Nebulized] 2.5 mg INHALATION RT-TID 07/25/16 [History] RX: Aspirin [Adult Low Dose Aspirin EC] 81 mg PO DAILY 07/25/16 [History] RX: Metoprolol Tartrate [Lopressor] 25 mg PO BID 07/25/16 [History] RX: Omeprazole 20 mg PO DAILY 07/25/16 [History] RX: Tiotropium [place] [Spiriva] 1 cap INHALATION RT-DAILY 07/25/16 [History] RX: Cetirizine HCl [Zyrtec] 10 mg PO DAILY 08/19/16 [History] RX: ALPRAZolam [Xanax] 0.5 mg PO TID 09/01/18 [History] RX: Amoxic-Pot Clav 875-125Mg [Augmentin 875-125] 1 tab PO BID 09/01/18 [History] RX: Ascorbic Acid [Vitamin C] 1,000 mg PO DAILY 09/01/18 [History] RX: Budesonide [Pulmicort] 0.5 mg INHALATION RT-BID 09/01/18 [History] RX: Cholecalciferol [Vitamin D3 (25 Mcg = 1000 Iu)] 1,000 unit PO DAILY 09/01/18 [History] RX: Doxazosin [Cardura] 4 mg PO HS 09/01/18 [History] RX: Ipratropium-Albuterol Nebulize [Duoneb 0.5 mg-3 mg/3 ml Soln] 3 ml INHALATION RT-BID 09/01/18 [History] RX: L.acidoph,Paracasei, B.lactis [Probiotic] 1 cap PO DAILY 09/01/18 [History] RX: Lisinopril [Zestril] 5 mg PO DAILY 09/01/18 [History] RX: Melatonin 10 mg PO DAILY 09/01/18 [History] RX: Sodium Chloride 0.9% Nebuliz [Saline 0.9% For Nebulization] 3 ml INHALATION RT-BID 09/01/18 [History] RX: Tiotropium 18 Mcg/Puff [Spiriva] 1 puff INHALATION RT-DAILY 09/01/18 [History] RX: guaiFENesin 400 mg PO BID 09/01/18 [History] RX: predniSONE See Taper PO DAILY 09/01/18 [History] Follow up Appointment(s)/Referral(s): Keshawn Suarez MD [Primary Care Provider] - 1-2 days
--- NOTE | 2018-09-03 12:32 | P.PN ---
Subjective Progress Note Date: 09/03/18 Principal diagnosis: Cough, congestion, acute on chronic hypoxic respiratory failure This is a 72-year-old white male patient with past medical history of advanced COPD, with baseline FEV1 of 1.04 L or 39% of predicted, consistent with stage III COPD, patient used to wear oxygen, but has not worn it in the last year, who presented to the emergency department on 09/01/2018 with significant trouble breathing, patient's pulse ox was in the 80s at home, he has been progressively worse since the weekend. He states he has been out fishing on Thursday and Thursday morning, in the morning temp's were 49F, and increased humidity, may have precipitated his exacerbation of COPD. He denied any fevers, chills, denies any nausea vomiting. Patient follows with Dr. Keshawn Suarez for primary care services, also follows with Dr. Cortez in the pulmonary clinic, he was seen by Dr. Cortez on outpatient basis on Thursday, was given IM dose of Depo-Medrol, was started on Augmentin. He was started on a prednisone burst taper, his maintenance inhalers include nebulized Pulmicort and Perforomist, he was recently restarted on Spiriva, patient is on Singulair, and Claritin. Chest x- ray was completed showed no acute process. Showed chronic right middle lobe lateral segment volume loss, previously seen on radiographs from 2018. Lab work showed a white blood cell count of 12.6, hemoglobin of 12.1, platelet count was 316, electrodes are within normal limits, BUN is 33, creatinine is 1.16, proBNP is 1010, troponin was negative 1, LFTs within normal limits. On 09/03/2018 patient seen in follow-up on medical surgical floor. He is breathing much easier today, pulse ox is 95%, he has been up ambulating in the room, tolerating activity well, afebrile, hemodynamically stable, lung sounds are essentially clear on today's exam, slightly diminished in the bases, no significant cough or congestion. Much improved since admission, no new chest x- rays, no new labs. Objective - Vital Signs Vital signs: Vital Signs Temp 97.6 F 09/03/18 11:06 Pulse 74 09/03/18 11:45 Resp 18 09/03/18 11:06 BP 113/62 09/03/18 11:06 Pulse Ox 95 09/03/18 11:06 Intake & Output 09/02/18 09/03/18 09/03/18 18:59 06:59 18:59 Intake Total 240 540 Balance 240 540 Intake: Oral 240 540 Other: Voiding Method Toilet Toilet Toilet # Voids 3 2 - Exam GENERAL EXAM: Alert, wasn't, 72-year-old white male on room air, comfortable in no apparent distress. HEAD: Normocephalic/atraumatic. EYES: Normal reaction of pupils, equal size. Conjunctiva pink, sclera white. NOSE: Clear with pink turbinates. THROAT: No erythema or exudates. NECK: No masses, no JVD, no thyroid enlargement, no adenopathy. CHEST: No chest wall deformity. Symmetrical expansion. LUNGS: Equal air entry with diminished breath sounds at the bases, no significant wheezing, rhonchi or rales CVS: Regular rate and rhythm, normal S1 and S2, no gallops, no murmurs, no rubs ABDOMEN: Soft, nontender. No hepatosplenomegaly, normal bowel sounds, no guarding or rigidity. EXTREMITIES: No clubbing, no edema, no cyanosis, 2+ pulses and upper and lower extremities. MUSCULOSKELETAL: Muscle strength and tone normal. SPINE: No scoliosis or deformity SKIN: No rashes CENTRAL NERVOUS SYSTEM: Alert and oriented -3. No focal deficits, tone is normal in all 4 extremities. PSYCHIATRIC: Alert and oriented -3. Appropriate affect. Intact judgment and insight. - Labs CBC & Chem 7: 09/01/18 17:45 09/01/18 17:45 Labs: Abnormal Lab Results - Last 24 Hours (Table) 09/02/18 09/02/18 09/03/18 Range/Units 17:49 20:20 07:21 POC Glucose (mg/dL) 199 H 104 H 146 H (75-99) mg/dL 09/03/18 Range/Units 10:57 POC Glucose (mg/dL) 168 H (75-99) mg/dL Assessment and Plan Plan: Assessment: #1. Acute on chronic hypoxemic respiratory failure related to acute exacerbation of COPD, chest x-ray showed no acute pulmonary process, failure of outpatient treatment. #2. History of advanced COPD, with a baseline FEV1 of 1.04 L or 39% predicted, consistent with stage III COPD, patient used to wear oxygen at home, however has not worn it lately in the last year, history of bronchial stenting, tracheobronchomalacia #3. GERD/reflux #4. Hypertension #5. Factor V Leiden deficiency #6. Bilateral cataracts #7. Former smoker, quit smoking 2012, carries 53 years of smoking #8. Anxiety #9. History of recurrent pseudomonal pulmonary infections #10. Obstructive sleep apnea on CPAP therapy Plan: Patient significant improvement since admission, responded well to inpatient treatments, vital signs are stable, afebrile, room air pulse ox is 95%. No acute events overnight, tolerating ambulation, from pulmonary perspective patient is stable for discharge home today on prednisone taper, he can resume his Spiriva, and DuoNeb, and nebulized Pulmicort. Follow up Dr. Cortez in the office in 7-10 days. I performed a history & physical examination of the patient and discussed their management with my nurse practitioner, Koki Dwyer. I reviewed the nurse practitioner's note and agree with the documented findings and plan of care. Lung sounds are positive for diminished breath sounds throughout the lung diaz. The findings and the impression was discussed with the patient. I attest to the documentation by the nurse practitioner. Time with Patient: Less than 30
== END 2018-09-03 14:20 | disposition home or self-care (01) | DRG 190 ==
LOC: EC 15:31 → 3NMEDONC 19:22
PROVIDERS: ADMIT Internal Medicine; ATTEND Internal Medicine
DX: J44.1 Chronic obstructive pulmonary disease with (acute) exacerbation (principal); J96.21 Acute and chronic respiratory failure with hypoxia; D68.51 Activated protein C resistance; F41.9 Anxiety disorder, unspecified; G47.33 Obstructive sleep apnea (adult) (pediatric); I10 Essential (primary) hypertension; K21.9 Gastro-esophageal reflux disease without esophagitis; M19.90 Unspecified osteoarthritis, unspecified site; J98.4 Other disorders of lung; D72.829 Elevated white blood cell count, unspecified; Z79.82 Long term (current) use of aspirin; Z79.899 Other long term (current) drug therapy; Z80.0 Family history of malignant neoplasm of digestive organs; Z80.6 Family history of leukemia; Z87.891 Personal history of nicotine dependence; Z99.81 Dependence on supplemental oxygen; Z88.1 Allergy status to other antibiotic agents; Z91.030 Bee allergy status; Z91.041 Radiographic dye allergy status; Z98.42 Cataract extraction status, left eye; Z98.41 Cataract extraction status, right eye; Z90.89 Acquired absence of other organs; Z98.890 Other specified postprocedural states; Z86.39 Personal history of other endocrine, nutritional and metabolic disease; Z87.19 Personal history of other diseases of the digestive system; Z99.89 Dependence on other enabling machines and devices; Z88.8 Allergy status to other drugs, medicaments and biological substances
CPT/HCPCS: 36415; 71046; 80053; 83735; 83880; 84484; 85025; 85610; 85730; 93005; 94640; 94760; 96365; 96375; 99291

== ENCOUNTER → 2018-12-17 | Day surgery (SDC) | payer MEDICARE, BC ==
[2018-12-16 09:06] VITALS: BMI 27.4
[~2018-12-17] MED LIST changes: +ALBUTEROL NEB (CONC) 2.5 MG/0.5 ML INHALATION ONE; +GLYCOPYRROLATE 0.2 MG/ML 2 ML VIAL ONE; +KETAMINE 10 MG/ML 20 ML VIAL ONE; +LIDOCAINE 1% 20 ML VIAL (10MG/ML) FOR IV START INTRADERMA PRN; +LIDOCAINE 1% INJ 10MG/ML (20 ML MDV) ONE; +LIDOCAINE 2% (PF) 20 MG/ML 2 ML VIAL MISCELLANE ONE; +LIDOCAINE 2% (PF) 20 MG/ML 5 ML VIAL INHALATION ONE; +LIDOCAINE VISCOUS 300 MG/15 ML CUP MUCOUS MEM ONE; +MIDAZOLAM 2 MG/2 ML VIAL ONE; -MOXIFLOXACIN HCL 0.5% DROPS 3 ML BTL OP ONE; +PROPOFOL 10 MG/ML 20 ML VIAL IV ONE; +SODIUM CHLORIDE 0.9% 1,000 ML IV SCH; -TETRACAINE 0.5% OPHTH (PF) DROPS 4 ML BTL OP ONE; -TIMOLOL 0.5% OPHTH SOLN (PF) 0.2 ML DROPERETTE OP ONE
[2018-12-17 11:18] VITALS: TEMP 97.5
[2018-12-17 11:47] LABS: Glucose,Whole Blood 85 mg/dL (75-99)
--- NOTE | 2018-12-17 12:36 | P.PCN ---
Date of Procedure: 12/17/18 Preoperative Diagnosis: tracheobronchomalacia, recurrent respiratory infections including infections with pseudomonas aeruginosa Postoperative Diagnosis: 1 severe tracheobronchomalacia 2 copious purulent respiratory secretions, consider recurrent pseudomonal infection. Procedure(s) Performed: Flexible bronchoscopy, bronchioloalveolar lavage of the right lower lobe Anesthesia: RACHAEL Surgeon: Ramona Cortez Pathology: other Condition: stable Disposition: same day Operative Findings: This is a 73-year-old male patient with known history of severe tracheobronchomalacia/COPD. The patient has had also recurrent respiratory infections with pseudomonas. Recently he has been having increased shortness of breath and he was unable to give me any adequate sputum for analysis. For that reason, the patient was brought in for a bronchoscopy and a airway inspection and a BAL This procedure was done in the endoscopy suite. The patient was treated with a combination of propofol, ketamine and Versed. After achieving adequate sedation, the flexible bronchoscope was inserted to the right nostril. Exam ination of the posterior pharynx was within normal. Examination of the larynx involving the epiglottis, arytenoids, vallecula and the vocal cords and all of the structures were within normal limits. A total of 2 mL of 1% lidocaine was applied to the vocal cords and following that the bronchoscope was advanced into the upper trachea. As expected, there was evidence of severe tracheobronchomalacia with dynamic obstruction of the airway with exhalation and cough and. The membranous trachea was very much collapsible. There was also some irregularities over the anterior tracheal wall with the cartilaginous rings are present. In any rate, airway inspection was done and the patient was found to have significant amount of thick yellowish to creamy beige rest or secretions abundant mainly in the bilateral mainstem bronchi more so on the right and there was significant amount of rest or secretions occupying the orifice of the right lower lobe and the right middle lobe. As airway inspection was completed, therapeutic airway suctioning was done with a respiratory secretions were taken out without any major difficulties. The rest of the airway showed also bronchomalacia involving the lower lobes bilaterally and the various segments of the lower lobes. There was anatomic distortion yet the airways were patent and the colitis was essentially dynamic with exhalation and cough and. The visualized airways including the right upper lobe bronchus, bronchus intermedius, right middle lobe bronchus, right lower lobe bronchus, left upper lobe bronchus and left lower lobe bronchus and the various segments and subsegments. A lavage of the right lower lobe was done with a total of 30 mL of purulent secretion was suctioned out and 60 mL of saline was infused. At the completion of the procedure, therapeutic it was suctioning was done and the bronchoscope was removed. The bronchial mucosa was slightly inflamed specially in the right lower lobe. No endobronchial tumors or lesions. No polyps. No foreign bodies. Bronchoscope was removed and the patient was transferred recovery in stable condition.
[2018-12-17 13:07] VITALS: BP 106/78; PULSE 81; RESP 18
== END | disposition home or self-care (01) ==
LOC: ORWHC2ENDO 10:58
PROVIDERS: ATTEND Internal Medicine Critical Care Medicine
DX: Q32.2 Congenital bronchomalacia (principal); J44.9 Chronic obstructive pulmonary disease, unspecified; J15.1 Pneumonia due to Pseudomonas; I10 Essential (primary) hypertension; D68.51 Activated protein C resistance; F41.9 Anxiety disorder, unspecified; N28.9 Disorder of kidney and ureter, unspecified; K21.9 Gastro-esophageal reflux disease without esophagitis; Z88.2 Allergy status to sulfonamides; Z91.041 Radiographic dye allergy status; Z88.1 Allergy status to other antibiotic agents; Z87.891 Personal history of nicotine dependence; Z79.82 Long term (current) use of aspirin; Z79.51 Long term (current) use of inhaled steroids; Z79.899 Other long term (current) drug therapy; Z86.718 Personal history of other venous thrombosis and embolism; Z99.89 Dependence on other enabling machines and devices; Z86.14 Personal history of Methicillin resistant Staphylococcus aureus infection
CPT/HCPCS: 94640; 87798 ×3; 87496; 87498; 87529 ×2; 88108; 88305; 87252; 87502; 87634; 87070; 87205; 87102; 87077; 87186; 31624; J2250; J2001 ×3; J2704

== ENCOUNTER → 2019-09-24 | Outpatient (CLI) | payer MEDICARE, BC ==
--- NOTE | 2019-09-26 06:14 | PE ---
EXAMINATION TYPE: PET CT fusion skull to thigh DATE OF EXAM: 09/24/2019 COMPARISON: NONE at this institution. HISTORY: Right upper lung cancer diagnosed March 2019 treated with radiation through April. TECHNIQUE: Following the intravenous administration of 12.87 mCi of F-18 FDG, whole body images are performed from the skull base to the midthigh. Images are reviewed on the computer in the coronal, a xial, and sagittal planes. Reconstructed rotating images are created on independent workstation and reviewed on the computer. A noncontrast CT is performed in conjunction with the PET scan. SCAN: Subsequent Scan FINDINGS: SKULL BASE AND NECK: No areas of abnormal hypermetabolic uptake. CHEST, MEDIASTINUM, AND HILAR REGION: Background mild to moderate underlying emphysematous change. There is 9 x 8 mm right upper lobe nodule axial image 77 posteriorly that is ametabolic. Focal area of consolidation/atelectasis right middle lobe abutting mediastinum axial image 110 for re ference that is ametabolic. Additional mild to moderate linear scarring and/or atelectasis in both bases. No areas of suspicious hypermetabolic uptake or suspicious greater than 1 cm thoracic adenopathy. ABDOMEN AND PELVIS: Cortical bulging with increased hypermetabolic uptake measuring roughly 2.4 x 2.2 cm axial image 139 favoring solid mass or neoplasm. Max SUV is 5.36. Area of hypermetabolic uptake on PET images axial image 139 outside body without definitive CT correl ate. Presumed contamination. Focal increased bowel uptake sigmoid colon axial image 201, max SUV 6.[address] correlate presume d benign. No adrenal masses or additional areas of suspicious hypermetabolic uptake. OSSEOUS STRUCTURES: No areas of suspicious hypermetabolic uptake. OTHER CT: Moderate to severe calcified plaque right carotid bulb level with more mild calcified plaqu e left carotid bulb level. Mild to moderate coronary artery calcification which is noted marked underlying coronary artery disea se. Nonspecific scattered hypodense lesions throughout the liver favoring thin-walled cysts. No suspiciou s hypermetabolic uptake noted. Cortical thinning of both kidneys consistent with product of chronic m edical renal disease. Occasional distal colonic diverticula. Mildly enlarged prostate gland consistent with BPH. Central ca lcifications are present. Scoliotic curvature in the lumbar spine. Multilevel spurring and disc space narrowing. IMPRESSION: No residual hypermetabolic uptake in the 9 mm posterior right upper lobe nodule. Suspicio us area right kidney worrisome for focal renal cell carcinoma. No hypermetabolic metastatic malignanc y.
== END | disposition home or self-care (01) ==
LOC: RADPETMAIN 12:19
PROVIDERS: ATTEND Internal Medicine Critical Care Medicine
DX: R91.1 Solitary pulmonary nodule (principal)
CPT/HCPCS: 78815; A9552

== ENCOUNTER → 2019-10-24 | Outpatient (CLI) | payer MEDICARE, BC ==
--- NOTE | 2019-10-25 05:27 | MR ---
EXAMINATION TYPE: MR kidney wo con DATE OF EXAM: 10/24/2019 COMPARISON: HISTORY: Abnormal PET CT/renal mass, lung ca 2019 Multiplanar multiecho imaging of the kidneys was performed without contrast. FINDINGS: There are multiple cysts in the liver that measure up to 4.5 cm. Most of the cysts are less than 2 cm . Spleen has normal size and contour without focal defect. Stomach is intact. There is no evidence of pancreatic mass. Pancreatic duct appears normal. The bile ducts are not dilated. Common bile duct is 5 mm. There is no adrenal mass. There is sharply marginated rounded mass involving the anterior right kidney that measures 2.4 x 3.1 cm. This is not a cyst and has intermediate signal on T2 images. There are scattered cysts in both ki dneys that measure up to 1 cm. There is minimal bilateral perinephric edema. There are spondylotic changes in the lumbar spine with mild dextroscoliosis. There is no lumbar raman xiao mass. On the T2 images there is slight increased signal in the L2 vertebral body on the left si de that probably relates to degenerative phenomenon. There is no evidence of pleural effusion. There is no evidence of ascites. IMPRESSION: Sharply marginated rounded mass in the anterior right kidney consistent with tumor. This is shown to have increased metabolic activity on the recent PET/CT scan of 09/24/2019. Multiple hepatic cysts. Multiple small renal cortical cysts.
== END | disposition home or self-care (01) ==
LOC: RADMRIMAIN 18:21
PROVIDERS: ATTEND Internal Medicine Critical Care Medicine
DX: N28.89 Other specified disorders of kidney and ureter (principal); K76.89 Other specified diseases of liver; N28.1 Cyst of kidney, acquired
CPT/HCPCS: 74181

== ENCOUNTER → 2020-09-21 | Outpatient (CLI) | payer MEDICARE, BC ==
--- NOTE | 2020-09-25 10:16 | PE ---
Nuclear medicine PET/CT HISTORY: Solitary pulmonary nodule in the right, initial Patient received 12 mCi F-18 FDG intravenously in delayed scanning was performed from the skull base to the mid thighs. Localization and attenuation correction CT scan was performed. Correlation to prior nuclear medicine PET/CT 09/24/2019 Chest and neck: There is no supraclavicular or cervical adenopathy. No mediastinal, axillary adenopat hy. Calcified subcarinal node is present as is calcified left hilar node with mild uptake, SUV 2.1, l eft lower lobe calcified nodule. There is no pleural or pericardial effusion. There are coronary mandy ry calcifications. Calcification present at the root of the aorta. At the posterior right lung base there is abnormal increased attenuation present, mild uptake, SUV 1. 6, along the right lower lobe more anteriorly there may be seen mucous plugging, SUV 2.0. Right middl e lobe shows bronchiectasis and collapse as on prior exam, lower lobe on the right shows scattered ar eas of groundglass, tree-in-bud type density. Right upper lobe nodule seen on prior exam shows a amrita lar appearance, some local pleural thickening is present, groundglass opacity not seen on prior exam. No associated uptake. Prominence of pulmonary artery suggests possible pulmonary artery hypertension . ABDOMEN: Hypodense foci scattered within liver again noted likely represent cysts. There is a hiatal hernia. No retroperitoneal adenopathy or ascites. No suspicious uptake. Diverticular change noted in the sigmoid colon, there are associated areas of uptake which may represent inflammatory change, diff icult to exclude a mucosal lesion. Prostate shows calcification. There is a soft tissue mass associat ed with the anterior right kidney, there is associated uptake, SUV 4.2, the mass measures approximate ly 3.5 cm which is increased compared to prior exam. Osseous structures are remarkable for a focus of increased uptake seen at the level of the right acet abulum anteriorly questionable clinical significance. There is a spinal curvature present lumbar spin e, degenerative disc changes and facet arthropathy are present. IMPRESSION: Findings may represent renal cell carcinoma. Coronary artery disease, possible pulmonary artery hypertension. Old granulomatous disease. There may be underlying changes of aspiration pneumon ia, atelectasis, follow-up chest evaluation recommended.
== END | disposition home or self-care (01) ==
LOC: RADPETMAIN 12:27
PROVIDERS: ATTEND Internal Medicine Critical Care Medicine
DX: I25.10 Atherosclerotic heart disease of native coronary artery without angina pectoris (principal); J84.10 Pulmonary fibrosis, unspecified
CPT/HCPCS: 78815; A9552

== ENCOUNTER → 2021-09-13 | Outpatient (CLI) | payer MEDICARE, BC ==
--- NOTE | 2021-09-16 07:01 | PE ---
EXAMINATION TYPE: PET CT fusion skull to thigh DATE OF EXAM: 09/13/2021 COMPARISON: Prior PET/CT September 21, 2020 and September 24, 2019. HISTORY: Right upper lung cancer diagnosed March 2019 treated with radiation through 2020. TECHNIQUE: Following the intravenous administration of 14.4 mCi of F-18 FDG, whole body images are p erformed from the skull base to the midthigh. Images are reviewed on the computer in the coronal, ax ial, and sagittal planes. Reconstructed rotating images are created on independent workstation and r eviewed on the computer. A localization and attenuation correction CT is performed in conjunction w ith the PET scan. Blood glucose level equals 109. SCAN: Subsequent Scan FINDINGS: SKULL BASE AND NECK: Mild uptake anterior mandible is nonspecific. No new hypermetabolic adenopathy. CHEST, MEDIASTINUM, AND HILAR REGION: Background mild to moderate underlying emphysematous change is redemonstrated. There is a larger 2.3 x 2.1 cm right upper lobe nodule and/or nodular consolidation axial image 76 . This is ametabolic. Stable focal area of chronic consolidation/atelectasis right middle lobe abutting mediastinum axial i mage 115 for reference that remains ametabolic. More prominent right basilar acute opacities including lateral 1.8 x 1.4 cm nodule axial image 115. T his however is ametabolic. Trace right pleural effusion noted. No new areas of suspicious hypermetabolic uptake or suspicious greater than 1 cm thoracic adenopathy. ABDOMEN AND PELVIS: Cortical bulging anterior upper pole right kidney less prominent from Prior. Focal increased bowel left pelvis, adjacent to sigmoid rectal stump and sutures axial image 197 is co ncerning, the max SUV is 6.56. No suspicious new adrenal masses or additional areas of suspicious hypermetabolic uptake. OSSEOUS STRUCTURES: No areas of suspicious hypermetabolic uptake. OTHER CT: Moderate to severe calcified plaque right carotid bulb level with more mild calcified plaqu e left carotid bulb level. Mild to moderate coronary artery calcification which is noted marker for underlying coronary artery d isease. Nonspecific scattered hypodense lesions throughout the liver favoring thin-walled cysts. No suspiciou s hypermetabolic uptake noted. Cortical thinning of both kidneys consistent with product of chronic m edical renal disease. Occasional distal colonic diverticula. Mildly enlarged prostate gland consistent with BPH. Central ca lcifications are present. Left-sided ostomy Slight Scoliotic curvature in the lumbar spine. Multilevel spurring and disc space narrowing. IMPRESSION: Enlarging right-sided nodules are concerning despite lack of hypermetabolic uptake. Suspi cious lesion in the pelvis adjacent to surgical sutures should be correlated with diagnostic CT study to exclude recurrent colonic neoplasm as differential includes bladder diverticulum.
== END | disposition home or self-care (01) ==
LOC: RADPETMAIN 11:25
PROVIDERS: ATTEND Internal Medicine Critical Care Medicine
DX: C34.11 Malignant neoplasm of upper lobe, right bronchus or lung (principal)
CPT/HCPCS: 78815; A9552

== ENCOUNTER → 2021-09-20 | Outpatient (CLI) | payer MEDICARE, BC | END | disposition home or self-care (01) | LOC: LABWHC1 12:13 | PROVIDERS: ATTEND Internal Medicine Critical Care Medicine | DX: Z86.14 Personal history of Methicillin resistant Staphylococcus aureus infection (principal) | CPT/HCPCS: 87070; 87205 ==

== ENCOUNTER 2021-11-20 08:30 | Emergency (ER) | payer MEDICARE, BC ==
[2021-11-20 08:49] VITALS: TEMP 98.1
[2021-11-20] MEDS ORDERED: IPRATROPIUM-ALBUTEROL 3 ML NEB INHALATION STA (09:05)
[2021-11-20] MEDS ORDERED: methylPREDNISolone SOD SUCCI 125 MG/2 ML VIAL IV STA (09:05)
[2021-11-20] MEDS ORDERED: SODIUM CHLORIDE 0.9% 500 ML 500 ML IV STA (09:05)
--- NOTE | 2021-11-20 09:14 | ED ---
SOB HPI - General Chief Complaint: Shortness of Breath Stated Complaint: SOB Time Seen by Provider: 11/20/21 09:00 Source: patient, family, RN notes reviewed, old records reviewed Mode of arrival: wheelchair Limitations: no limitations - History of Present Illness Initial Comments: 76-year-old male alert and oriented 4 presents to the emergency room with family complaining of shortness of breath that started yesterday. Patient does have a known history of COPD. States that he has a productive cough that is creamy white in color. Denies any fevers. States he also has a sore throat. States that he does use oxygen occasionally at home usually couple liters in the morning and then he scattered throughout the day without oxygen. Patient also h as history of kidney disease, hypertension, DVT. He is a nonsmoker. MD Complaint: shortness of breath, cough -: days(s) (2) Severity scale (1-10): 0 Known History Of: COPD Associated Symptoms: cough, sputum production (cream), other (sore throat) Treatments Prior to Arrival: oxygen - Related Data Home Medications Medication Instructions Recorded Confirmed Montelukast Sodium [Singulair] 10 mg PO DAILY 01/24/14 10/21/21 Albuterol Nebulized [Ventolin 2.5 mg INHALATION RT-TID PRN 07/25/16 10/21/21 Nebulized] Aspirin [Adult Low Dose Aspirin EC] 81 mg PO DAILY 07/25/16 10/21/21 Metoprolol Tartrate [Lopressor] 25 mg PO BID 07/25/16 10/21/21 Cetirizine HCl [Zyrtec] 10 mg PO DAILY 08/19/16 10/21/21 ALPRAZolam [Xanax] 0.5 mg PO TID PRN 09/01/18 10/21/21 Cholecalciferol [Vitamin D3 (25 1,000 unit PO DAILY 09/01/18 10/21/21 Mcg = 1000 Iu)] Doxazosin [Cardura] 4 mg PO DAILY 09/01/18 10/21/21 L.acidoph,Paracasei, B.lactis 1 cap PO DAILY 09/01/18 10/21/21 [Probiotic] Sodium Chloride 0.9% Nebuliz 3 ml INHALATION RT-QID 09/01/18 10/21/21 [Saline 0.9% For Nebulization] guaiFENesin 400 mg PO BID 09/01/18 10/21/21 allopurinoL [Zyloprim] 100 mg PO DAILY 11/21/19 10/21/21 Albuterol Sulfate [Ventolin HFA] 2 puff INHALATION RT-QID PRN 10/21/21 10/21/21 Budesonide 0.25 mg INHALATION RT-BID 10/21/21 10/21/21 Fluticasone/Umeclidin/Vilanter 1 puff INHALATION RT-DAILY 10/21/21 10/21/21 [Trelegy Ellipta 100-62.5-25] Previous Rx's Medication Instructions Recorded Acetaminophen Tab [Tylenol] 650 mg PO Q6HR PRN tab 10/25/21 Amoxic-Pot Clav 875-125Mg 1 tab PO BID 7 Days #14 tab 10/25/21 [Augmentin 875-125] predniSONE 0 mg PO DIRECTED 15 Days #30 tab 10/25/21 Allergies Allergy/AdvReac Type Severity Reaction Status Date / Time cefepime Allergy SHUT DOWN Verified 11/20/21 08:46 KIDNEYS ether Allergy Anaphylaxis Verified 11/20/21 08:46 Iodinated Contrast Media Allergy PAST Verified 11/20/21 08:46 [Iodinated Contrast Media - HISTORY OF Oral and] KIDNEY PROBLEMS venom-honey bee Allergy Anaphylaxis Verified 11/20/21 08:46 sulfamethoxazole AdvReac states Verified 11/20/21 08:46 [From Bactrim] effects kidneys trimethoprim [From Bactrim] AdvReac states Verified 11/20/21 08:46 effects kidneys Review of Systems ROS Statement: Those systems with pertinent positive or pertinent negative responses have been documented in the HPI. ROS Other: All systems not noted in ROS Statement are negative. Past Medical History Past Medical History: Blood Disorder, Cancer, COPD, Deep Vein Thrombosis (DVT), GERD/Reflux, Hypertension, Renal Disease Additional Past Medical History / Comment(s): hx of pseudomonus lung infection, uses CPAP not for sleep apnea, O2 prn 2l prn, diverticulits, Factor V Leiden, hx of bronchial silicone stent now removed, PICC line in past now removed, past hx dialysis for kidney damage, none currently, Stage 3 renal disease, Lung cancer - diagnosed and treated down in [place], Colostomy, hernia repair History of Any Multi-Drug Resistant Organisms: MRSA Date of last positivie culture/infection: 08/30/21 MDRO Source:: Sputum Past Surgical History: Hernia Repair, Tonsillectomy Additional Past Surgical History / Comment(s): bronchoscopy, bronchial silicone stent, now removed, fatty tumor removed from chest area, COLONOSCOPY, alexandre cataract, hernia repair Past Anesthesia/Blood Transfusion Reactions: Previous Problems w/ Anesthesia Additional Past Anesthesia/Blood Transfusion Reaction / Comment(s): "as turned black and blue from ETHER". FACTOR V LEIDEN Past Psychological History: Anxiety Smoking Status: Former smoker Past Alcohol Use History: None Reported Past Drug Use History: None Reported - Past Family History Father Family Medical History: Cancer Additional Family Medical History / Comment(s): colon cancer Mother Family Medical History: Cancer Additional Family Medical History / Comment(s): leukemia General Exam Limitations: no limitations General appearance: alert, in no apparent distress Head exam: Present: atraumatic Eye exam: Present: normal appearance. Absent: scleral icterus, conjunctival injection, periorbital swelling ENT exam: Present: mucous membranes moist Neck exam: Present: normal inspection, full ROM. Absent: tenderness, meningismus Respiratory exam: Present: wheezes, rhonchi. Absent: respiratory distress, stridor, chest wall tenderness, accessory muscle use Cardiovascular Exam: Present: regular rate GI/Abdominal exam: Present: soft. Absent: distended, tenderness, guarding, rebound, rigid Extremities exam: Present: normal capillary refill. Absent: tenderness, pedal edema Neurological exam: Present: alert, oriented X3 Psychiatric exam: Present: normal affect, normal mood Skin exam: Present: warm, dry, normal color. Absent: cyanosis, diaphoretic, petechiae, pallor Course Vital Signs 11/20/21 11/20/21 11/20/21 08:47 10:00 10:13 Temperature 98.1 F Pulse Rate 69 85 Respiratory 16 24 24 Rate Blood Pressure 147/76 142/65 O2 Sat by Pulse 98 95 Oximetry 11/20/21 11/20/21 11/20/21 10:21 10:26 11:00 Temperature Pulse Rate 68 88 78 Respiratory 22 22 18 Rate Blood Pressure 145/68 O2 Sat by Pulse 95 Oximetry 11/20/21 11/20/21 12:37 13:01 Temperature Pulse Rate 78 78 Respiratory 18 18 Rate Blood Pressure 138/78 145/78 O2 Sat by Pulse 96 96 Oximetry Medical Decision Making - Medical Decision Making Patient presents with shortness of breath worsening since yesterday. Patient states over the weekend he was working out in the barn stirred up a lot of dust. He states he just finished antibiotics prescribed by his scale attendant on Thursday. X-ray shows a upper lobe nodule seen on PET scan 09/13/2021. There is a small right pleural effusion. Labs show no evidence of leukocytosis. Hemoglobin and hematocrit are stable. Troponin 0.026. EKG shows sinus rhythm with a left axis deviation. No ST elevation. Patient denies any chest pain. Patient will be discharged home to follow up with Dr. Cortez this week, use his oxygen 2 L nasal cannula at home and continue his breathing treatments and medications as previously prescribed. He was directed to return to the emergency room with any new other concerning symptoms. Patient is agreeable to this plan of care. Vital signs are stable Case discussed with Dr. Bhandari, - Lab Data Result diagrams: 11/20/21 09:17 11/20/21 09:17 Lab Results 11/20/21 11/20/21 11/20/21 Range/Units 09:17 09:17 09:17 WBC 9.3 (3.8-10.6) k/uL RBC 3.72 L (4.30-5.90) m/uL Hgb 11.2 L (13.0-17.5) gm/dL Hct 37.1 L (39.0-53.0) % MCV 99.6 (80.0-100.0) fL MCH 30.2 (25.0-35.0) pg MCHC 30.3 L (31.0-37.0) g/dL RDW 15.6 H (11.5-15.5) % Plt Count 220 (150-450) k/uL MPV 8.1 Neutrophils % 87 % Lymphocytes % 7 % Monocytes % 5 % Eosinophils % 0 % Basophils % 0 % Neutrophils # 8.1 H (1.3-7.7) k/uL Lymphocytes # 0.7 L (1.0-4.8) k/uL Monocytes # 0.4 (0-1.0) k/uL Eosinophils # 0.0 (0-0.7) k/uL Basophils # 0.0 (0-0.2) k/uL Hypochromasia Slight Macrocytosis Slight PT 10.2 (9.0-12.0) sec INR 0.9 (<1.2) APTT 24.3 (22.0-30.0) sec Sodium 138 (137-145) mmol/L Potassium 5.2 H (3.5-5.1) mmol/L Chloride 102 (98-107) mmol/L Carbon Dioxide 27 (22-30) mmol/L Anion Gap 9 mmol/L BUN 44 H (9-20) mg/dL Creatinine 1.15 (0.66-1.25) mg/dL Est GFR (CKD-EPI)AfAm 71 (>60 ml/min/1.73 sqM) Est GFR (CKD-EPI)NonAf 61 (>60 ml/min/1.73 sqM) Glucose 134 H (74-99) mg/dL Plasma Lactic Acid Fadi (0.7-2.0) mmol/L Calcium 9.1 (8.4-10.2) mg/dL Magnesium 2.0 (1.6-2.3) mg/dL Total Bilirubin 1.2 (0.2-1.3) mg/dL AST 62 H (17-59) U/L ALT 79 H (4-49) U/L Alkaline Phosphatase 64 (38-126) U/L Troponin I (0.000-0.034) ng/mL Total Protein 6.0 L (6.3-8.2) g/dL Albumin 3.8 (3.5-5.0) g/dL 11/20/21 11/20/21 Range/Units 09:17 09:17 WBC (3.8-10.6) k/uL RBC (4.30-5.90) m/uL Hgb (13.0-17.5) gm/dL Hct (39.0-53.0) % MCV (80.0-100.0) fL MCH (25.0-35.0) pg MCHC (31.0-37.0) g/dL RDW (11.5-15.5) % Plt Count (150-450) k/uL MPV Neutrophils % % Lymphocytes % % Monocytes % % Eosinophils % % Basophils % % Neutrophils # (1.3-7.7) k/uL Lymphocytes # (1.0-4.8) k/uL Monocytes # (0-1.0) k/uL Eosinophils # (0-0.7) k/uL Basophils # (0-0.2) k/uL Hypochromasia Macrocytosis PT (9.0-12.0) sec INR (<1.2) APTT (22.0-30.0) sec Sodium (137-145) mmol/L Potassium (3.5-5.1) mmol/L Chloride (98-107) mmol/L Carbon Dioxide (22-30) mmol/L Anion Gap mmol/L BUN (9-20) mg/dL Creatinine (0.66-1.25) mg/dL Est GFR (CKD-EPI)AfAm (>60 ml/min/1.73 sqM) Est GFR (CKD-EPI)NonAf (>60 ml/min/1.73 sqM) Glucose (74-99) mg/dL Plasma Lactic Acid Fadi 0.7 (0.7-2.0) mmol/L Calcium (8.4-10.2) mg/dL Magnesium (1.6-2.3) mg/dL Total Bilirubin (0.2-1.3) mg/dL AST (17-59) U/L ALT (4-49) U/L Alkaline Phosphatase (38-126) U/L Troponin I 0.026 (0.000-0.034) ng/mL Total Protein (6.3-8.2) g/dL Albumin (3.5-5.0) g/dL - EKG Data EKG shows normal: sinus rhythm (Ventricular rate 64, MD interval 0.169, QRS 0.143, QTC 0.407) Disposition Clinical Impression: COPD (chronic obstructive pulmonary disease) Disposition: HOME SELF-CARE Condition: Good Instructions (If sedation given, give patient instructions): COPD (Chronic Obstructive Pulmonary Disease) (ED) Additional Instructions: Increase your fluid intake. Use your oxygen at home for shortness of breath. Follow-up with Dr. Cortez this week. Return to the emergency room with any new or concerning symptoms including fevers, chest pain or difficulty in breathing. Is patient prescribed a controlled substance at d/c from ED?: No Referrals: Keshawn Suarez MD [Primary Care Provider] - 1-2 days Ramona Cortez MD [STAFF PHYSICIAN] - 1-2 days Time of Disposition: 12:33
[2021-11-20 09:36] LABS: Basophils % (A) 0 %; Eosinophils % (A) 0 %; HCT 37.1 % (39.0-53.0); HGB 11.2 gm/dL (13.0-17.5); Hypochromasia Slight; Lymphocytes # (A) 0.7 k/uL (1.0-4.8); Lymphocytes % (A) 7 %; MCH 30.2 pg (25.0-35.0); MCHC 30.3 g/dL (31.0-37.0); MCV 99.6 fL (80.0-100.0); Macrocytosis Slight; Mean Platelet Volume 8.1; Monocytes # (A) 0.4 k/uL (0-1.0); Monocytes % (A) 5 %; Neutrophils # (A) 8.1 k/uL (1.3-7.7); Neutrophils % (A) 87 %; Platelet Count 220 k/uL (150-450); RBC 3.72 m/uL (4.30-5.90); RDW 15.6 % (11.5-15.5); WBC 9.3 k/uL (3.8-10.6)
[2021-11-20 09:46] LABS: Albumin 3.8 g/dL (3.5-5.0); Calcium 9.1 mg/dL (8.4-10.2); Potassium 5.2 mmol/L (3.5-5.1); Total Bilirubin 1.2 mg/dL (0.2-1.3)
[2021-11-20 09:48] LABS: INR 0.9 (<1.2); Partial Thromboplastin Time 24.3 sec (22.0-30.0); Prothrombin Time 10.2 sec (9.0-12.0)
--- NOTE | 2021-11-20 11:57 | XR ---
EXAMINATION TYPE: XR chest 2V DATE OF EXAM: 11/20/2021 11:42 AM COMPARISON: PET 09/13/2021 TECHNIQUE: XR chest 2V Frontal and lateral views of the chest. CLINICAL INDICATION:Male, 76 years old with history of difficulty breathing; FINDINGS: Lungs/Pleura: small right pleural effusion with blunting of costophrenic angle. There is a opacity in the right upper lobe measuring up to 12 mm. This is similar to 10/22/2011. Streaky atelectasis seen l leonard bases. Pulmonary vascularity: Unremarkable. Heart/mediastinum: Cardiomediastinal silhouette is unremarkable. Musculoskeletal: No acute osseous pathology. IMPRESSION: 1. Similar upper lobe nodule which was FDG avid on prior PET on 09/13/2021. 2. Small right pleural effusion.
[2021-11-20 12:37] VITALS: PULSE 78; RESP 18
[2021-11-20 13:02] VITALS: BP 145/78
== END 2021-11-20 13:28 | disposition home or self-care (01) ==
LOC: EC 08:30
DX: J44.9 Chronic obstructive pulmonary disease, unspecified (principal); I10 Essential (primary) hypertension; K21.9 Gastro-esophageal reflux disease without esophagitis; Z79.83 Long term (current) use of bisphosphonates; Z87.891 Personal history of nicotine dependence; Z88.8 Allergy status to other drugs, medicaments and biological substances; Z88.2 Allergy status to sulfonamides; Z91.041 Radiographic dye allergy status; Z91.030 Bee allergy status
CPT/HCPCS: 36415; 94640; 93005; 80053; 83605; 83735; 84484; 85025; 85610; 85730; 87040; 87070; 87205; 71046; 99285; 96374; 96361; J2930

== ENCOUNTER 2021-12-06 12:56 | Inpatient (IN) | payer MEDICARE, BC ==
[2021-12-06] MEDS ORDERED: IPRATROPIUM-ALBUTEROL 3 ML NEB INHALATION STA (13:27)
[2021-12-06] MEDS ORDERED: methylPREDNISolone SOD SUCCI 125 MG/2 ML VIAL IV STA (13:27)
--- NOTE | 2021-12-06 13:29 | ED ---
General Adult HPI - General Chief complaint: Shortness of Breath Stated complaint: MARTA Time Seen by Provider: 12/06/21 13:11 Source: patient, RN notes reviewed Mode of arrival: wheelchair Limitations: no limitations - History of Present Illness Initial comments: Patient is a pleasant 76-year-old male presenting to the emergency department with difficulty in breathing. Symptoms have worsened over the past 3-4 days. Patient did see Dr. Cortez and started on antibiotics over a week ago. Patient was diagnosed with E. coli of the long. Patient does have COPD. Patient has been having yellow/green sputum. No fever. - Related Data Home Medications Medication Instructions Recorded Confirmed Montelukast Sodium [Singulair] 10 mg PO DAILY 01/24/14 10/21/21 Albuterol Nebulized [Ventolin 2.5 mg INHALATION RT-TID PRN 07/25/16 10/21/21 Nebulized] Aspirin [Adult Low Dose Aspirin EC] 81 mg PO DAILY 07/25/16 10/21/21 Metoprolol Tartrate [Lopressor] 25 mg PO BID 07/25/16 10/21/21 Cetirizine HCl [Zyrtec] 10 mg PO DAILY 08/19/16 10/21/21 ALPRAZolam [Xanax] 0.5 mg PO TID PRN 09/01/18 10/21/21 Cholecalciferol [Vitamin D3 (25 1,000 unit PO DAILY 09/01/18 10/21/21 Mcg = 1000 Iu)] Doxazosin [Cardura] 4 mg PO DAILY 09/01/18 10/21/21 L.acidoph,Paracasei, B.lactis 1 cap PO DAILY 09/01/18 10/21/21 [Probiotic] Sodium Chloride 0.9% Nebuliz 3 ml INHALATION RT-QID 09/01/18 10/21/21 [Saline 0.9% For Nebulization] guaiFENesin 400 mg PO BID 09/01/18 10/21/21 allopurinoL [Zyloprim] 100 mg PO DAILY 11/21/19 10/21/21 Albuterol Sulfate [Ventolin HFA] 2 puff INHALATION RT-QID PRN 10/21/21 10/21/21 Budesonide 0.25 mg INHALATION RT-BID 10/21/21 10/21/21 Fluticasone/Umeclidin/Vilanter 1 puff INHALATION RT-DAILY 10/21/21 10/21/21 [Trelegy Ellipta 100-62.5-25] Previous Rx's Medication Instructions Recorded Acetaminophen Tab [Tylenol] 650 mg PO Q6HR PRN tab 10/25/21 Amoxic-Pot Clav 875-125Mg 1 tab PO BID 7 Days #14 tab 10/25/21 [Augmentin 875-125] predniSONE 0 mg PO DIRECTED 15 Days #30 tab 10/25/21 Allergies Allergy/AdvReac Type Severity Reaction Status Date / Time cefepime Allergy SHUT DOWN Verified 12/06/21 13:00 KIDNEYS ether Allergy Anaphylaxis Verified 12/06/21 13:00 Iodinated Contrast Media Allergy PAST Verified 12/06/21 13:00 [Iodinated Contrast Media - HISTORY OF Oral and] KIDNEY PROBLEMS venom-honey bee Allergy Anaphylaxis Verified 12/06/21 13:00 sulfamethoxazole AdvReac states Verified 12/06/21 13:00 [From Bactrim] effects kidneys trimethoprim [From Bactrim] AdvReac states Verified 12/06/21 13:00 effects kidneys Review of Systems ROS Statement: Those systems with pertinent positive or pertinent negative responses have been documented in the HPI. ROS Other: All systems not noted in ROS Statement are negative. Constitutional: Denies: fever Eyes: Denies: eye pain ENT: Denies: ear pain Respiratory: Reports: cough, dyspnea Cardiovascular: Denies: chest pain Endocrine: Denies: fatigue Gastrointestinal: Denies: abdominal pain Genitourinary: Denies: dysuria Musculoskeletal: Denies: back pain Skin: Denies: rash Neurological: Denies: weakness Past Medical History Past Medical History: Blood Disorder, Cancer, COPD, Deep Vein Thrombosis (DVT), GERD/Reflux, Hypertension, Renal Disease Additional Past Medical History / Comment(s): hx of pseudomonus lung infection, uses CPAP not for sleep apnea, O2 prn 2l prn, diverticulits, Factor V Leiden, hx of bronchial silicone stent now removed, PICC line in past now removed, past hx dialysis for kidney damage, none currently, Stage 3 renal disease, Lung cancer - diagnosed and treated down in [place], Colostomy, hernia repair History of Any Multi-Drug Resistant Organisms: MRSA Date of last positivie culture/infection: 08/30/21 MDRO Source:: Sputum Past Surgical History: Hernia Repair, Tonsillectomy Additional Past Surgical History / Comment(s): bronchoscopy, bronchial silicone stent, now removed, fatty tumor removed from chest area, COLONOSCOPY, alexandre cataract, hernia repair Past Anesthesia/Blood Transfusion Reactions: Previous Problems w/ Anesthesia Additional Past Anesthesia/Blood Transfusion Reaction / Comment(s): "as infant turned black and blue from ETHER". FACTOR V LEIDEN Past Psychological History: Anxiety Smoking Status: Former smoker Past Alcohol Use History: None Reported Past Drug Use History: None Reported - Past Family History Father Family Medical History: Cancer Additional Family Medical History / Comment(s): colon cancer Mother Family Medical History: Cancer Additional Family Medical History / Comment(s): leukemia General Exam Limitations: no limitations General appearance: alert, in no apparent distress Head exam: Present: normocephalic Eye exam: Present: normal appearance Neck exam: Present: normal inspection Respiratory exam: Present: wheezes, rhonchi Cardiovascular Exam: Present: regular rate, normal rhythm GI/Abdominal exam: Present: soft. Absent: tenderness Extremities exam: Present: normal inspection. Absent: pedal edema, calf tenderness Neurological exam: Present: alert Psychiatric exam: Present: normal affect, normal mood Skin exam: Present: normal color Course Vital Signs 12/06/21 12/06/21 12/06/21 12:58 13:21 13:52 Temperature 98.0 F Pulse Rate 74 73 66 Respiratory 20 16 Rate Blood Pressure 193/79 160/78 O2 Sat by Pulse 98 99 Oximetry 12/06/21 12/06/21 12/06/21 14:01 14:05 14:08 Temperature Pulse Rate 64 85 Respiratory 22 22 Rate Blood Pressure 145/85 O2 Sat by Pulse 95 Oximetry 12/06/21 14:39 Temperature Pulse Rate 64 Respiratory 16 Rate Blood Pressure 172/77 O2 Sat by Pulse 96 Oximetry EKG Findings - EKG Comments: EKG Findings:: Sinus rhythm rate 69. MN 187. QRS 122. QT 372. QTC 391. Left axis. Right bundle branch block. No acute ST change. Medical Decision Making - Medical Decision Making Patient reevaluated. Patient updated on results and plan. Dr. Cervantes has been paged for admission covering Dr. Suarez - Lab Data Result diagrams: 12/06/21 14:03 12/06/21 14:03 Lab Results 09/12/06/21 12/06/21 Range/Units 14:03 14:03 14:03 WBC 10.5 (3.8-10.6) k/uL RBC 3.80 L (4.30-5.90) m/uL Hgb 11.5 L (13.0-17.5) gm/dL Hct 37.4 L (39.0-53.0) % MCV 98.4 (80.0-100.0) fL MCH 30.2 (25.0-35.0) pg MCHC 30.6 L (31.0-37.0) g/dL RDW 14.7 (11.5-15.5) % Plt Count 231 (150-450) k/uL MPV 8.3 Neutrophils % 93 % Lymphocytes % 4 % Monocytes % 3 % Eosinophils % 0 % Basophils % 0 % Neutrophils # 9.7 H (1.3-7.7) k/uL Lymphocytes # 0.4 L (1.0-4.8) k/uL Monocytes # 0.3 (0-1.0) k/uL Eosinophils # 0.0 (0-0.7) k/uL Basophils # 0.0 (0-0.2) k/uL Hypochromasia Moderate PT 10.4 (9.0-12.0) sec INR 1.0 (<1.2) APTT 23.6 (22.0-30.0) sec Sodium 137 (137-145) mmol/L Potassium 4.7 (3.5-5.1) mmol/L Chloride 100 (98-107) mmol/L Carbon Dioxide 30 (22-30) mmol/L Anion Gap 7 mmol/L BUN 52 H (9-20) mg/dL Creatinine 1.27 H (0.66-1.25) mg/dL Est GFR (CKD-EPI)AfAm 62 (>60 ml/min/1.73 sqM) Est GFR (CKD-EPI)NonAf 54 (>60 ml/min/1.73 sqM) Glucose 138 H (74-99) mg/dL Plasma Lactic Acid Fadi (0.7-2.0) mmol/L Calcium 9.3 (8.4-10.2) mg/dL Total Bilirubin 1.3 (0.2-1.3) mg/dL AST 25 (17-59) U/L ALT 34 (4-49) U/L Alkaline Phosphatase 57 (38-126) U/L Total Protein 6.4 (6.3-8.2) g/dL Albumin 4.0 (3.5-5.0) g/dL Coronavirus (PCR) (Not Detectd) Influenza Type A RNA (Not Detectd) Influenza Type B (PCR) (Not Detectd) 12/06/21 12/06/21 12/06/21 Range/Units 14:03 14:03 14:03 WBC (3.8-10.6) k/uL RBC (4.30-5.90) m/uL Hgb (13.0-17.5) gm/dL Hct (39.0-53.0) % MCV (80.0-100.0) fL MCH (25.0-35.0) pg MCHC (31.0-37.0) g/dL RDW (11.5-15.5) % Plt Count (150-450) k/uL MPV Neutrophils % % Lymphocytes % % Monocytes % % Eosinophils % % Basophils % % Neutrophils # (1.3-7.7) k/uL Lymphocytes # (1.0-4.8) k/uL Monocytes # (0-1.0) k/uL Eosinophils # (0-0.7) k/uL Basophils # (0-0.2) k/uL Hypochromasia PT (9.0-12.0) sec INR (<1.2) APTT (22.0-30.0) sec Sodium (137-145) mmol/L Potassium (3.5-5.1) mmol/L Chloride (98-107) mmol/L Carbon Dioxide (22-30) mmol/L Anion Gap mmol/L BUN (9-20) mg/dL Creatinine (0.66-1.25) mg/dL Est GFR (CKD-EPI)AfAm (>60 ml/min/1.73 sqM) Est GFR (CKD-EPI)NonAf (>60 ml/min/1.73 sqM) Glucose (74-99) mg/dL Plasma Lactic Acid Fadi 1.2 (0.7-2.0) mmol/L Calcium (8.4-10.2) mg/dL Total Bilirubin (0.2-1.3) mg/dL AST (17-59) U/L ALT (4-49) U/L Alkaline Phosphatase (38-126) U/L Total Protein (6.3-8.2) g/dL Albumin (3.5-5.0) g/dL Coronavirus (PCR) Not Detected (Not Detectd) Influenza Type A RNA Not Detected (Not Detectd) Influenza Type B (PCR) Not Detected (Not Detectd) - Radiology Data Radiology results: image reviewed (Chest x-ray shows right lower lobe infiltrate with effusion. 1.3 cm right upper lobe density.) Disposition Clinical Impression: Pneumonia Disposition: ADMITTED IP TO THIS HOSP Is patient prescribed a controlled substance at d/c from ED?: No Referrals: Keshawn Suarez MD [Primary Care Provider] - 1-2 days Time of Disposition: 15:13
[2021-12-06 14:18] LABS: Basophils % (A) 0 %; Eosinophils % (A) 0 %; HCT 37.4 % (39.0-53.0); HGB 11.5 gm/dL (13.0-17.5); Hypochromasia Moderate; Lymphocytes # (A) 0.4 k/uL (1.0-4.8); Lymphocytes % (A) 4 %; MCH 30.2 pg (25.0-35.0); MCHC 30.6 g/dL (31.0-37.0); MCV 98.4 fL (80.0-100.0); Mean Platelet Volume 8.3; Monocytes # (A) 0.3 k/uL (0-1.0); Monocytes % (A) 3 %; Neutrophils # (A) 9.7 k/uL (1.3-7.7); Neutrophils % (A) 93 %; Platelet Count 231 k/uL (150-450); RDW 14.7 % (11.5-15.5); WBC 10.5 k/uL (3.8-10.6)
[2021-12-06 14:31] LABS: Partial Thromboplastin Time 23.6 sec (22.0-30.0); Prothrombin Time 10.4 sec (9.0-12.0)
[2021-12-06 14:43] LABS: Calcium 9.3 mg/dL (8.4-10.2); Potassium 4.7 mmol/L (3.5-5.1); Total Bilirubin 1.3 mg/dL (0.2-1.3); Total Protein 6.4 g/dL (6.3-8.2)
--- NOTE | 2021-12-06 15:00 | XR ---
EXAMINATION TYPE: XR chest 2V DATE OF EXAM: 12/06/2021 COMPARISON: NONE HISTORY: Shortness of breath TECHNIQUE: Frontal and lateral views of the chest are obtained. FINDINGS: Right lower lobe infiltrate and/or atelectasis persists with small effusion. Nodular density right up per lobe measures 1.3 cm. The left lung is clear. Heart size is stable. Mediastinal structures are stable and grossly unremarkable. No evidence for hilar prominence. Degenerative changes dorsal spine. IMPRESSION: 1. Right lower lobe infiltrate and/or atelectasis persists with small effusion. Nodular density right upper lobe measures 1.3 cm. The left lung is clear.
[2021-12-06] MEDS ORDERED: AZITHROMYCIN 500 MG in SODIUM CHLORIDE 0.9% 250 ML IVPB STA (15:13)
[2021-12-06] MEDS ORDERED: IPRATROPIUM-ALBUTEROL 3 ML NEB INHALATION PRN (15:13)
[2021-12-06] MEDS ORDERED: PNEUMONIA PROTOCOL UTILIZED 1 EACH MISC PO PRN (15:13)
[2021-12-06] MEDS: IPRATROPIUM-ALBUTEROL 3 ML NEB INHALATION SCH ×2 (15:58→20:03)
[2021-12-06] MEDS: SODIUM CHLORIDE 0.9% 1,000 ML IV SCH (16:12)
[2021-12-06] MEDS ORDERED: ACETAMINOPHEN TAB 325 MG TAB PO PRN (18:01)
[2021-12-06] MEDS ORDERED: ALBUTEROL HFA INHALER INHALATION PRN (18:01)
[2021-12-06] MEDS ORDERED: ONDANSETRON 4 MG/2 ML VIAL IVP PRN (19:23)
[2021-12-06] MEDS ORDERED: CALCIUM CARBONATE 500 MG CHEWABLE PO PRN (19:23)
[2021-12-06] MEDS ORDERED: NALOXONE 0.4 MG/ML 1 ML VIAL IV PRN (19:23)
[2021-12-06] MEDS ORDERED: LACTULOSE 20 GM/30 ML CUP PO PRN (19:23)
--- NOTE | 2021-12-06 19:35 | P.HPIM ---
History of Present Illness H&P Date: 12/06/21 Chief Complaint: Cough This is a 76-year-old patient who follows with Dr. Keshawn Suarez. Chronic stable medical conditions include DVT, GERD, hypertension, uses CPAP, home oxygen 2 L as needed, factor 5 Leyden, bronchial silicone stent now removed, prior history of hemodialysis, lung cancer diagnosed and treated in [place]. Colostomy. On April 12 2021, in [place] - bowel perforation -had 4 inches of large bowel removed. - colostomy. During that hospitalization he also pneumonia. Then in July again had a lung infection. - port placed / 2 weeks of antibiotics. October 2021 admitted to [facility] in treated with ceftazidime. Following discharge diagnosed with E. coli on November 20 and treated with antibiotics by Dr. Cortez. Sputum color improved feeling better. Now for last 3 foot is having increasing sputum production take yellow-green in color. More congested in the chest. Short of breath. No fever and chills. Some decrease in appetite. Tired rundown. Admitted for the same. Possible pneumonia. Review of systems: GEN.: Tired EYES: None HEENT: None NECK: None RESPIRATORY: As above CARDIOVASCULAR: None GASTROINTESTINAL: None GENITOURINARY: None MUSCULOSKELETAL: joint pain LYMPHATICS: None HEMATOLOGICAL: None PSYCHIATRY: None NEUROLOGICAL: None Past medical history to include: Factor V Leyden mutation, COPD, DVT, GERD, hypertension, COPD, Pseudomonas lung infection, uses CPAP, oxygen when necessary, diverticulitis, bronchial silicone stent now removed, hemodialysis now discontinued CK D stage III, right lung solid nodule with radiation treatment. Social history: Lives alone. Smoked 1-2 packs a day for 50 years stopped in 2012. Did drink significant alcohol stopped some time ago. Retired from [employer] and [employer]. Family history: Colon cancer Physical examination: VITAL SIGNS: 88.3, 76, 19, 149/71, 98% on 2 L GENERAL: BMI 28, sitting up in chair, congested cough EYES: Pupils equal. Conjunctiva normal. HEENT: External appearance of nose and ears normal, oral cavity grossly normal. NECK: JVD not raised; masses not palpable. HEART: First and second heart sounds are normal; no edema. LUNGS:[ Respiratory rate increased; decreased breath sounds, coarse expiratory crackles especially anteriorly, expiratory wheezing. ABDOMEN: Soft, nontender, liver spleen not palpable, no masses palpable. PSYCH: Alert and oriented x3; mood and affect normal. MUSCULOSKELETAL:No Clubbing/cyanosis;muscles-grossly intact. OA NEUROLOGICAL: Cranial nerves grossly intact; no facial asymmetry, power and sensation grossly intact. LYMPHATICS: No lymph nodes palpable in the axilla and neck INVESTIGATIONS, reviewed in the clinical context: WBC 10.5 hemoglobin 11.5 platelets 231 potassium 4.7 BUN 52 creatinine 1.27 EKG tracing personally reviewed by me-normal sinus rhythm, right bundle branch block Chest x-ray film personally reviewed by [id number] nodule, right basilar infiltrate Previous labs: Creatinine 1.15 on November 20 Sputum E. coli on November 20 Assessment plan: -Acute pneumonia in a patient with Recurrent pneumonia in a patient with underlying COPD. recent cultures have been positive sputum positive for stenitophomas maltophilia, MRSA, E. coli. s received several courses of antibio tics. Consult pulmonary. May need bronchoscopy with lavage. Sputum for Gram stain and culture. -Acute COPD exacerbation in a previous smoker: DuoNeb. Add IV Solu-Medrol. Perforomist. Nebulized steroids. -Hyperuricemia Allopurinol 100 mg a day -Factor V Leyden mutation -Right upper lung nodule treated with the radiation Follow with pulmonary -Essential hypertension Lopressor 25 mg twice a day -Chronic kidney disease stage II likely nephrosclerosis Follow renal function -BPH Cardura 4 mg a day -Anxiety not otherwise specified Xanax when necessary DuoNeb. IV ceftriaxone. Nebulized Perforomist, Pulmicort. Mucinex. Flutter valve. Humidified oxygen. Consult pulmonary. Discussed with the patient. Past Medical History Past Medical History: Blood Disorder, Cancer, COPD, Deep Vein Thrombosis (DVT), GERD/Reflux, Hypertension, Renal Disease Additional Past Medical History / Comment(s): hx of pseudomonus lung infection, uses CPAP not for sleep apnea, O2 prn 2l prn, diverticulits, Factor V Leiden, hx of bronchial silicone stent now removed, PICC line in past now removed, past hx dialysis for kidney damage, none currently, Stage 3 renal disease, Lung cancer - diagnosed and treated down in [place], Colostomy, hernia repair History of Any Multi-Drug Resistant Organisms: MRSA Date of last positivie culture/infection: 08/30/21 MDRO Source:: Sputum Past Surgical History: Hernia Repair, Tonsillectomy Additional Past Surgical History / Comment(s): bronchoscopy, bronchial silicone stent, now removed, fatty tumor removed from chest area, COLONOSCOPY, alexandre cataract, hernia repair Past Anesthesia/Blood Transfusion Reactions: Previous Problems w/ Anesthesia Additional Past Anesthesia/Blood Transfusion Reaction / Comment(s): "as t urned black and blue from ETHER". FACTOR V LEIDEN Past Psychological History: Anxiety Smoking Status: Former smoker Past Alcohol Use History: None Reported Additional Past Alcohol Use History / Comment(s): STARTED SMOKING AT AGE 14, QUIT SMOKING 2012 Past Drug Use History: None Reported - Past Family History Father Family Medical History: Cancer Additional Family Medical History / Comment(s): colon cancer Mother Family Medical History: Cancer Additional Family Medical History / Comment(s): leukemia Medications and Allergies Home Medications Medication Instructions Recorded Confirmed Type Montelukast Sodium [Singulair] 10 mg PO DAILY 01/24/14 12/06/21 History Albuterol Nebulized [Ventolin 2.5 mg INHALATION RT-TID PRN 07/25/16 12/06/21 History Nebulized] Aspirin [Adult Low Dose Aspirin EC] 81 mg PO DAILY 07/25/16 12/06/21 History Metoprolol Tartrate [Lopressor] 25 mg PO BID 07/25/16 12/06/21 History Cetirizine HCl [Zyrtec] 10 mg PO DAILY 08/19/16 12/06/21 History ALPRAZolam [Xanax] 0.5 mg PO TID PRN 09/01/18 12/06/21 History Cholecalciferol [Vitamin D3 (25 1,000 unit PO DAILY 09/01/18 12/06/21 History Mcg = 1000 Iu)] Doxazosin [Cardura] 4 mg PO DAILY 09/01/18 12/06/21 History L.acidoph,Paracasei, B.lactis 1 cap PO DAILY 09/01/18 12/06/21 History [Probiotic] Sodium Chloride 0.9% Nebuliz 3 ml INHALATION RT-QID 09/01/18 12/06/21 History [Saline 0.9% For Nebulization] guaiFENesin 400 mg PO BID 09/01/18 12/06/21 History allopurinoL [Zyloprim] 100 mg PO DAILY 11/21/19 12/06/21 History Albuterol Sulfate [Ventolin HFA] 2 puff INHALATION RT-QID PRN 10/21/21 12/06/21 History Budesonide 0.25 mg INHALATION RT-BID 10/21/21 12/06/21 History Fluticasone/Umeclidin/Vilanter 1 puff INHALATION RT-DAILY 10/21/21 12/06/21 History [Trelegy Ellipta 100-62.5-25] Acetaminophen Tab [Tylenol] 650 mg PO Q6HR PRN tab 10/25/21 12/06/21 Rx cefUROXime axetiL [Ceftin] 500 mg PO BID 12/06/21 12/06/21 History Allergies Allergy/AdvReac Type Severity Reaction Status Date / Time cefepime Allergy SHUT DOWN Verified 12/06/21 13:00 KIDNEYS ether Allergy Anaphylaxis Verified 12/06/21 13:00 Iodinated Contrast Media Allergy PAST Verified 12/06/21 13:00 [Iodinated Contrast Media - HISTORY OF Oral and] KIDNEY PROBLEMS venom-honey bee Allergy Anaphylaxis Verified 12/06/21 13:00 sulfamethoxazole AdvReac states Verified 12/06/21 13:00 [From Bactrim] effects kidneys trimethoprim [From Bactrim] AdvReac states Verified 12/06/21 13:00 effects kidneys Physical Exam Vitals: Vital Signs Temp Pulse Pulse Resp BP BP Pulse Ox 12/06/21 18:45 98.3 F 76 19 149/71 98 12/06/21 16:07 66 18 12/06/21 16:00 66 18 12/06/21 14:39 64 16 172/77 96 12/06/21 14:08 22 12/06/21 14:05 85 22 145/85 95 12/06/21 14:01 64 12/06/21 13:52 66 12/06/21 13:21 73 16 160/78 99 12/06/21 12:58 98.0 F 74 20 193/79 98 Intake and Output 12/06/21 12/06/21 12/06/21 06:59 14:59 22:59 Intake Total 100 Balance 100 Intake: Intake, IV Titration 100 Amount cefTRIAXone 2 gm In 50 Sodium Chloride 0.9% 50 ml @ 100 mls/hr IVPB ONCE STA Rx#:[id number] cefTRIAXone 2 gm In 50 Sodium Chloride 0.9% 50 ml @ 100 mls/hr IVPB Q24HR [facility] Rx#:[id number] Other: Weight 76.204 kg 76.204 kg Results CBC & Chem 7: 12/06/21 14:03 12/06/21 14:03 Labs: Abnormal Lab Results - Last 24 Hours (Table) 12/06/21 12/06/21 Range/Units 14:03 14:03 RBC 3.80 L (4.30-5.90) m/uL Hgb 11.5 L (13.0-17.5) gm/dL Hct 37.4 L (39.0-53.0) % MCHC 30.6 L (31.0-37.0) g/dL Neutrophils # 9.7 H (1.3-7.7) k/uL Lymphocytes # 0.4 L (1.0-4.8) k/uL BUN 52 H (9-20) mg/dL Creatinine 1.27 H (0.66-1.25) mg/dL Glucose 138 H (74-99) mg/dL Thrombosis Risk Factor Assmnt - Choose All That Apply Any of the Below Risk Factors Present?: No Other Risk Factors: Yes Each Risk Factor Represents 3 Points: Age 75 years or older Thrombosis Risk Factor Assessment Total Risk Factor Score: 3 Thrombosis Risk Factor Assessment Level: Moderate Risk
[2021-12-06] MEDS ORDERED: BUDESONIDE 0.25 MG/2 ML NEBU INHALATION SCH (20:00)
[2021-12-06] MEDS: FORMOTEROL FUMARATE 20 MCG/2 ML NEBU INHALATION SCH (20:05)
[2021-12-06] MEDS: BUDESONIDE 1 MG/2 ML NEBU INHALATION SCH (20:06)
[2021-12-06] MEDS: SODIUM CHLORIDE 0.9% NEBULIZ 3 ML INHALATION SCH (20:07)
[2021-12-06] MEDS: methylPREDNISolone SOD SUCCI 40 MG/ML 1 ML VIAL IV SCH (20:55)
[2021-12-06] MEDS: METOPROLOL TARTRATE 25 MG TAB PO SCH (20:55)
[2021-12-06] MEDS: guaiFENesin 600 MG TABLET.ER PO SCH (20:55)
[2021-12-06] MEDS: ALPRAZolam 0.5 MG TAB PO PRN (21:00)
[2021-12-07] MEDS: methylPREDNISolone SOD SUCCI 40 MG/ML 1 ML VIAL IV SCH ×3 (00:10→16:49)
[2021-12-07] MEDS: SODIUM CHLORIDE 0.9% 1,000 ML IV SCH ×2 (04:17→16:49)
[2021-12-07] MEDS: BUDESONIDE 1 MG/2 ML NEBU INHALATION SCH ×2 (07:19→19:23)
[2021-12-07] MEDS: IPRATROPIUM-ALBUTEROL 3 ML NEB INHALATION SCH ×4 (07:19→19:27)
[2021-12-07] MEDS: FORMOTEROL FUMARATE 20 MCG/2 ML NEBU INHALATION SCH ×2 (07:19→19:23)
[2021-12-07] MEDS: SODIUM CHLORIDE 0.9% NEBULIZ 3 ML INHALATION SCH (07:23)
--- NOTE | 2021-12-07 08:08 | XR ---
EXAMINATION TYPE: XR chest 2V DATE OF EXAM: 12/07/2021 6:32 AM COMPARISON: Chest radiographs from 12/06/2021 TECHNIQUE: XR chest 2V Frontal and lateral views of the chest. CLINICAL INDICATION:Male, 76 years old with history of pneumonia; FINDINGS: Lungs/Pleura: Right basilar airspace opacities with pleural effusion. Similar right upper lobe airspa ce nodular-like opacity. The left lung is clear. Pulmonary vascularity: Unremarkable. Heart/mediastinum: Cardiomediastinal silhouette is unremarkable. Musculoskeletal: No acute osseous pathology. IMPRESSION: Slightly worsened right basilar airspace opacities and right trace pleural fusion. This could be due to phase of inspiration. Attention follow-up imaging.
[2021-12-07] MEDS: LORATADINE 10 MG TAB PO SCH (08:17)
[2021-12-07] MEDS: METOPROLOL TARTRATE 25 MG TAB PO SCH ×2 (08:17→20:19)
[2021-12-07] MEDS: CHOLECALCIFEROL 25 MCG (1000 IU) TABLET PO SCH (08:17)
[2021-12-07] MEDS: ASPIRIN 81 MG PO SCH (08:17)
[2021-12-07] MEDS: guaiFENesin 600 MG TABLET.ER PO SCH ×4 (08:18→21:41)
[2021-12-07] MEDS: LACTOBACILLUS ACIDOPH & BULGAR 1 EACH PACKET PO SCH (08:18)
[2021-12-07] MEDS ORDERED: VANCOMYCIN IV PER PHARMACY 1 EACH MISC MISCELLANE PRN (08:22)
[2021-12-07] MEDS ORDERED: DOXAZOSIN 4 MG TAB PO SCH (09:00)
[2021-12-07] MEDS ORDERED: allopurinoL 100 MG TAB PO SCH (09:00)
[2021-12-07] MEDS ORDERED: AZITHROMYCIN 500 MG TAB PO SCH (09:00)
[2021-12-07] MEDS ORDERED: MONTELUKAST 10 MG TAB PO SCH (09:00)
[2021-12-07] MEDS: PIPERACILLIN-TAZOBACTAM 3.375 GM in SODIUM CHLORIDE 0.9% 100 ML IVPB SCH ×2 (09:30→16:50)
[2021-12-07 10:39] LABS: African American GFR (CKD) 69.5 (60.0-200.0); Anion Gap 9.5 mmol/L (10.00-18.00); BUN/Creat Ratio 38.36 Ratio (12.00-20.00); Blood Urea Nitrogen 44.5 mg/dL (9.0-27.0); Calcium 8.6 mg/dL (8.7-10.3); Carbon Dioxide 26.3 mmol/L (20.0-27.5); Potassium 4.9 mmol/L (3.5-5.5)
[2021-12-07] MEDS ORDERED: guaiFENesin-Coden 100-10MG/5ML 10 ML CUP PO PRN (11:02)
[2021-12-07] MEDS: BENZONATATE 100 MG CAP PO SCH ×3 (11:16→21:43)
--- NOTE | 2021-12-07 11:20 | P.CNPUL ---
History of Present Illness Consult date: 12/07/21 Requesting physician: Brodie Cervantes Reason for consult: COPD Chief complaint: Shortness of breath, cough, congestion History of present illness: This is a 76-year-old male patient with a history of anxiety, factor V Leiden mutation, hypertension, chronic kidney disease, right renal mass, left lower extremity DVT, perforation the colon post colectomy with previous colostomy, tracheobronchomalacia, lung nodules, chronic obstructive pulmonary disease with an FEV1 value 55% of predicted and is maintained on Trelegy in the outpatient setting. He also has a history of a solitary nodule of the lung and the right upper lobe he did receive radiation therapy while in [place]. No biopsy was performed. No significant metabolic uptake of the nodule of the right upper lobe. He patient also has a history of multiple pulmonary infections with a previous pseudomonas aeruginosa infection back in 2019. More recently on 08/30/2021 is sputum was positive for MRSA. In September 2021 he was positive for E. coli and Stenotrophomonas maltophilia, 11/20/2021 sputum culture was positive for E. coli. He follows with Dr. Cortez in our office. He was just seen 12/02/2021 and was initiated on cefuroxime. He presented here to the emergency room yesterday with complaints of increasing shortness of breath, cough and congestion. Chest x-ray continues to show right basilar airspace opacities and a trace right pleural effusion. Some of which may be chronic in nature. Sputum culture pending. White count 10.5. Hemoglobin 11.5. Sodium 141. Potassium 4.9. BUN 45. Creatinine 1.2. Pro-calcitonin 0.19. Coronavirus by PCR not detected. Influenza screen negative. He is seen today in consultation on the regular medical floor. Awake and alert in no acute distress. Maintaining O2 saturations in the 90s on 2 L/m per nasal cannula. Afebrile. Hemodynamically stable. Review of Systems REVIEW OF SYSTEMS: CONSTITUTIONAL: Denies any recent significant weight loss or weight gain. EYES: Denies change in vision. EARS, NOSE, MOUTH, THROAT: Denies headaches, denies sore throat. CARDIOVASCULAR: Denies chest pain, palpitations or syncopal episodes. RESPIRATORY: Positive for shortness of breath, cough, congestion no hemoptysis. GASTROINTESTINAL: Denies change in appetite, denies abdominal pain GENITOURINARY: Denies hematuria, denies infections. MUSKULOSKELETAL: Denies pain, denies swelling. INTEGUMENTARY: Denies rash, denies eczema. NEUROLOGICAL: Denies recent memory loss, no recent seizure activity. PSYCHIATRIC: Denies anxiety, denies depression. HEMATOLOGIC/LYMPHATIC: Denies anemia, denies enlarged lymph nodes. Past Medical History Past Medical History: Blood Disorder, Cancer, COPD, Deep Vein Thrombosis (DVT), GERD/Reflux, Hypertension, Renal Disease Additional Past Medical History / Comment(s): hx of pseudomonus lung infection, uses CPAP not for sleep apnea, O2 prn 2l prn, diverticulits, Factor V Leiden, hx of bronchial silicone stent now removed, PICC line in past now removed, past hx dialysis for kidney damage, none currently, Stage 3 renal disease, Lung cancer - diagnosed and treated down in [place], Colostomy, hernia repair History of Any Multi-Drug Resistant Organisms: MRSA Date of last positivie culture/infection: 08/30/21 MDRO Source:: Sputum Past Surgical History: Hernia Repair, Tonsillectomy Additional Past Surgical History / Comment(s): bronchoscopy, bronchial silicone stent, now removed, fatty tumor removed from chest area, COLONOSCOPY, alexandre cataract, hernia repair Past Anesthesia/Blood Transfusion Reactions: Previous Problems w/ Anesthesia Additional Past Anesthesia/Blood Transfusion Reaction / Comment(s): "as turned black and blue from ETHER". FACTOR V LEIDEN Past Psychological History: Anxiety Smoking Status: Former smoker Past Alcohol Use History: None Reported Additional Past Alcohol Use History / Comment(s): STARTED SMOKING AT AGE 14, QUIT SMOKING 2012 Past Drug Use History: None Reported - Past Family History Father Family Medical History: Cancer Additional Family Medical History / Comment(s): colon cancer Mother Family Medical History: Cancer Additional Family Medical History / Comment(s): leukemia Medications and Allergies Home Medications Medication Instructions Recorded Confirmed Type Montelukast Sodium [Singulair] 10 mg PO DAILY 01/24/14 12/06/21 History Albuterol Nebulized [Ventolin 2.5 mg INHALATION RT-TID PRN 07/25/16 12/06/21 History Nebulized] Aspirin [Adult Low Dose Aspirin EC] 81 mg PO DAILY 07/25/16 12/06/21 History Metoprolol Tartrate [Lopressor] 25 mg PO BID 07/25/16 12/06/21 History Cetirizine HCl [Zyrtec] 10 mg PO DAILY 08/19/16 12/06/21 History ALPRAZolam [Xanax] 0.5 mg PO TID PRN 09/01/18 12/06/21 History Cholecalciferol [Vitamin D3 (25 1,000 unit PO DAILY 09/01/18 12/06/21 History Mcg = 1000 Iu)] Doxazosin [Cardura] 4 mg PO DAILY 09/01/18 12/06/21 History L.acidoph,Paracasei, B.lactis 1 cap PO DAILY 09/01/18 12/06/21 History [Probiotic] Sodium Chloride 0.9% Nebuliz 3 ml INHALATION RT-QID 09/01/18 12/06/21 History [Saline 0.9% For Nebulization] guaiFENesin 400 mg PO BID 09/01/18 12/06/21 History allopurinoL [Zyloprim] 100 mg PO DAILY 11/21/19 12/06/21 History Albuterol Sulfate [Ventolin HFA] 2 puff INHALATION RT-QID PRN 10/21/21 12/06/21 History Budesonide 0.25 mg INHALATION RT-BID 10/21/21 12/06/21 History Fluticasone/Umeclidin/Vilanter 1 puff INHALATION RT-DAILY 10/21/21 12/06/21 History [Trelegy Ellipta 100-62.5-25] Acetaminophen Tab [Tylenol] 650 mg PO Q6HR PRN tab 10/25/21 12/06/21 Rx cefUROXime axetiL [Ceftin] 500 mg PO BID 12/06/21 12/06/21 History Allergies Allergy/AdvReac Type Severity Reaction Status Date / Time cefepime Allergy SHUT DOWN Verified 12/06/21 13:00 KIDNEYS ether Allergy Anaphylaxis Verified 12/06/21 13:00 Iodinated Contrast Media Allergy PAST Verified 12/06/21 13:00 [Iodinated Contrast Media - HISTORY OF Oral and] KIDNEY PROBLEMS venom-honey bee Allergy Anaphylaxis Verified 12/06/21 13:00 sulfamethoxazole AdvReac states Verified 12/06/21 13:00 [From Bactrim] effects kidneys trimethoprim [From Bactrim] AdvReac states Verified 12/06/21 13:00 effects kidneys Physical Exam Vitals: Vital Signs Temp Pulse Pulse Resp BP BP Pulse Ox 12/07/21 07:48 70 12/07/21 07:41 72 12/07/21 07:40 72 12/07/21 07:23 66 98 12/07/21 05:00 97.7 F 63 12 153/79 93 L 12/06/21 20:27 70 12/06/21 20:15 68 12/06/21 20:14 68 12/06/21 20:05 67 12/06/21 18:45 98.3 F 76 19 149/71 98 12/06/21 16:07 66 18 12/06/21 16:00 66 18 12/06/21 14:39 64 16 172/77 96 12/06/21 14:08 22 12/06/21 14:05 85 22 145/85 95 12/06/21 14:01 64 12/06/21 13:52 66 12/06/21 13:21 73 16 160/78 99 12/06/21 12:58 98.0 F 74 20 193/79 98 Intake and Output 12/06/21 12/07/21 12/07/21 22:59 06:59 14:59 Intake Total 100 Balance 100 Intake: Intake, IV Titration 100 Amount cefTRIAXone 2 gm In 50 Sodium Chloride 0.9% 50 ml @ 100 mls/hr IVPB ONCE STA Rx#:[id number] cefTRIAXone 2 gm In 50 Sodium Chloride 0.9% 50 ml @ 100 mls/hr IVPB Q24HR ON LICENSE OF [facility] Rx#:[id number] Other: Voiding Method Toilet # Voids 2 Weight 76.204 kg GENERAL EXAM: Alert, pleasant 68-year-old male, on 2 L nasal cannula, comforta ble in no apparent distress. HEAD: Normocephalic. EYES: Normal reaction of pupils, equal size. NOSE: Clear with pink turbinates. THROAT: No erythema or exudates. NECK: No masses, no JVD. CHEST: No chest wall deformity. LUNGS: Equal air entry with crackles in the right lung base CVS: S1 and S2 normal with no audible murmur, regular rhythm. ABDOMEN: No hepatosplenomegaly, normal bowel sounds, no guarding or rigidity. SPINE: No scoliosis or deformity SKIN: No rashes CENTRAL NERVOUS SYSTEM: No focal deficits, tone is normal in all 4 extremities. EXTREMITIES: There is no peripheral edema. No clubbing, no cyanosis. Peripheral pulses are intact. Results - Laboratory Findings CBC and BMP: 12/06/21 14:03 12/07/21 03:44 PT/INR, D-dimer PT 10.4 sec (9.0-12.0) 12/06/21 14:03 INR 1.0 (<1.2) 12/06/21 14:03 Abnormal lab findings: Abnormal Labs 12/06/21 12/06/21 12/07/21 14:03 14:03 03:44 RBC 3.80 L Hgb 11.5 L Hct 37.4 L MCHC 30.6 L Neutrophils # 9.7 H Lymphocytes # 0.4 L Anion Gap BUN 52 H Creatinine 1.27 H BUN/Creatinine Ratio Glucose 138 H Calcium Procalcitonin 0.19 H 12/07/21 03:44 RBC Hgb Hct MCHC Neutrophils # Lymphocytes # Anion Gap 9.50 L BUN 44.5 H Creatinine BUN/Creatinine Ratio 38.36 H Glucose 172 H Calcium 8.6 L Procalcitonin - Diagnostic Findings Chest x-ray: image reviewed Assessment and Plan Assessment: Acute on chronic hypoxemic respiratory failure secondary to suspected right lower lobe pneumonia. Some changes of which are chronic. Sputum culture pending. Pro-calcitonin's and 0.19. Most recently on cefuroxime in the outpatient setting Frequent pulmonary infections and admissions, including pseudomonas aeruginosa, MRSA, E. coli, Stenotrophomonas maltophilia History of renal failure secondary to Bactrim Right upper lobe nodule being monitored in the outpatient setting. PET scan from 09/13/2021 revealed a 2.3 x 2.1 cm right upper lobe nodule. No metabolic uptake. Stable chronic consolidation/atelectasis of the right middle lobe. More prominent right basilar acute opacities including a 1.8 x 1.4 cm nodule that also has ametabolic. Did receive radiation therapy while in [place]. Chronic obstructive pulmonary disease on home oxygen Right renal mass being followed in the outpatient setting Severe tracheobronchomalacia Factor V Leiden mutation History of left lower extremity DVT Hypertension Chronic kidney disease stage II History of perforated colon with colectomy/colostomy Plan: The patient was seen and evaluated Chest x-rays, labs and medications reviewed Sputum culture pending, pro-calcitonin 0.19 Initiate Zosyn for now Continue DuoNeb inhalations, Pulmicort and Perforomist inhalations, IV Solu- Medrol We will continue to follow and make further recommendations based on his clini ashley status I have personally seen and examined the patient, performed the documentation and the assessment and plan as written. Number of minutes spent on the visit: 20.
--- NOTE | 2021-12-07 14:18 | P.PN ---
Progress Note - Text Progress Note Date: 12/07/21 Chief Complaint: Cough This is a 76-year-old patient who follows with Dr. Keshawn Suarez. Chronic stable medical conditions include DVT, GERD, hypertension, uses CPAP, home oxygen 2 L as needed, factor 5 Leyden, bronchial silicone stent now removed, prior history of hemodialysis, lung cancer diagnosed and treated in [place]. Colostomy. On April 12 2021, in [place] - bowel perforation -had 4 inches of large bowel removed. - colostomy. During that hospitalization he also pneumonia. Then in July again had a lung infection. - port placed / 2 weeks of antibiotics. October 2021 admitted to [facility] in treated with ceftazidime. Following discharge diagnosed with E. coli on November 20 and treated with antibiotics by Dr. Cortez. Sputum color improved feeling better. Now for last 3 days is having increasing sputum production take yellow-green in color. More congested in the chest. Short of breath. No fever and chills. Some decrease in appetite. Tired rundown. Admitted for the same. Possible pneumonia. December 07: Congested cough. Shortness of breath. IV Zosyn. Being followed by pulmonary. Discussed with the patient. May benefit from bronchial lavage. Will discuss with pulmonary. Active Medications Acetaminophen (Acetaminophen Tab 325 Mg Tab) 650 mg PO Q6HR PRN PRN Reason: Mild Pain or Fever > 100.5 Albuterol Sulfate (Albuterol Hfa Inhaler) 2 puff INHALATION RT-QID PRN PRN Reason: Shortness Of Breath Albuterol/Ipratropium (Ipratropium-Albuterol 3 Ml Neb) 3 ml INHALATION RT-QID [facility] Last Admin: 12/07/21 10:49 Dose: 3 ml Albuterol/Ipratropium (Ipratropium-Albuterol 3 Ml Neb) 3 ml INHALATION RT-Q4H PRN PRN Reason: shortness of breath Allopurinol (Allopurinol 100 Mg Tab) 100 mg PO HS [facility] Alprazolam (Alprazolam 0.5 Mg Tab) 0.5 mg PO TID PRN PRN Reason: Anxiety Last Admin: 12/06/21 21:00 Dose: 0.5 mg Aspirin (Aspirin 81 Mg) 81 mg PO DAILY [facility] Last Admin: 12/07/21 08:17 Dose: 81 mg Benzonatate (Benzonatate 100 Mg Cap) 200 mg PO TID [facility] Last Admin: 12/07/21 11:16 Dose: 200 mg Budesonide (Budesonide 1 Mg/2 Ml Nebu) 1 mg INHALATION RT-BID [facility] Last Admin: 12/07/21 07:19 Dose: 1 mg Calcium Carbonate/Glycine (Calcium Carbonate 500 Mg Chewable) 1,000 mg PO Q4HR PRN PRN Reason: Dyspepsia Cholecalciferol (Cholecalciferol 25 Mcg (1000 Iu) Tablet) 25 mcg PO DAILY [facility] Last Admin: 12/07/21 08:17 Dose: 25 mcg Doxazosin Mesylate (Doxazosin 4 Mg Tab) 4 mg PO [facility] Formoterol Fumarate (Formoterol Fumarate 20 Mcg/2 Ml Nebu) 20 mcg INHALATION RT-BID [facility] Last Admin: 12/07/21 07:19 Dose: 20 mcg Guaifenesin (Guaifenesin 600 Mg Tablet.Er) 600 mg PO QID [facility] Last Admin: 12/07/21 08:18 Dose: 600 mg Guaifenesin/Codeine Phosphate (Guaifenesin-Coden 100-10mg/5ml 10 Ml Cup) 5 ml PO Q4HR PRN PRN Reason: Cough Sodium Chloride (Saline 0.9%) 1,000 mls @ 100 mls/hr IV .Q10H [facility] Last Admin: 12/07/21 04:17 Dose: 100 mls/hr Piperacillin Sod/Tazobactam (Sod 3.375 gm/ Sodium Chloride) 100 mls @ 25 mls/hr IVPB Q8HR [facility]; Protocol Last Admin: 12/07/21 09:30 Dose: 25 mls/hr Lactobacillus Acidoph/Bulgaricus (Lactobacillus Acidoph & Bulgar 1 Each Packet) 1 each PO DAILY [facility] Last Admin: 12/07/21 08:18 Dose: 1 each Lactulose (Lactulose 20 Gm/30 Ml Cup) 20 gm PO DAILY PRN PRN Reason: Constipation Loratadine (Loratadine 10 Mg Tab) 10 mg PO DAILY [facility] Last Admin: 12/07/21 08:17 Dose: 10 mg Methylprednisolone Sodium Succinate (Methylprednisolone Sod Succi 40 Mg/Ml 1 Ml Vial) 40 mg IV Q8HR [facility] Last Admin: 12/07/21 08:18 Dose: 40 mg Metoprolol Tartrate (Metoprolol Tartrate 25 Mg Tab) 25 mg PO BID [facility] Last Admin: 12/07/21 08:17 Dose: 25 mg Miscellaneous Information (Pneumonia Protocol Utilized [address] [facility]) 1 each PO ONCE PRN PRN Reason: Per Protocol Montelukast Sodium (Montelukast 10 Mg Tab) 10 mg PO HS [facility] Naloxone HCl (Naloxone 0.4 Mg/Ml 1 Ml Vial) 0.2 mg IV Q2M PRN PRN Reason: Opioid Reversal Ondansetron HCl (Ondansetron 4 Mg/2 Ml Vial) 4 mg IVP Q8HR PRN PRN Reason: Nausea And Vomiting Past medical history to include: Factor V Leyden mutation, COPD, DVT, GERD, hypertension, COPD, Pseudomonas lung infection, uses CPAP, oxygen when necessary, diverticulitis, bronchial silicone stent now removed, hemodialysis now discontinued CK D stage III, right lung solid nodule with radiation treatment. Social history: Lives alone. Smoked 1-2 packs a day for 50 years stopped in 2012. Did drink significant alcohol stopped some time ago. Retired from [employer]. Family history: Colon cancer Physical examination: VITAL SIGNS: 97.8, 66, 17, 156.76, 94% room air GENERAL: BMI 28, sitting edge of the bed congested cough EYES: Pupils equal. Conjunctiva normal. HEENT: External appearance of nose and ears normal, oral cavity grossly normal. NECK: JVD not raised; masses not palpable. HEART: First and second heart sounds are normal; no edema. LUNGS:[ Respiratory rate increased; decreased breath sounds, coarse expiratory crackles especially anteriorly, expiratory wheezing. ABDOMEN: Soft, nontender, liver spleen not palpable, no masses palpable. PSYCH: Alert and oriented x3; mood and affect normal. MUSCULOSKELETAL:No Clubbing/cyanosis;muscles-grossly intact. OA INVESTIGATIONS, reviewed in the clinical context: December 07: Pro-calcitonin 0.19 WBC 10.5 hemoglobin 11.5 platelets 231 potassium 4.7 BUN 52 creatinine 1.27 EKG tracing personally reviewed by me-normal sinus rhythm, right bundle branch block Chest x-ray film personally reviewed by [id number] nodule, right basilar infiltrate Previous labs: Creatinine 1.15 on November 20 Sputum E. coli on November 20 Assessment plan: -Acute pneumonia in a patient with Recurrent pneumonia in a patient with underlying COPD. recent cultures have been positive sputum positive for stenitophomas maltophilia, MRSA, E. coli. s received several courses of antibiotics.: Slow to respond Follow with pulmonary. May need bronchoscopy with lavage. Sputum for Gram stain and culture. IV Zosyn -Acute COPD exacerbation in a previous smoker: Slow to respond DuoNeb. IV Solu-Medrol. Perforomist. Nebulized steroids. -Hyperuricemia Allopurinol 100 mg a day -Factor V Leyden mutation -Right upper lung nodule treated with the radiation Follow with pulmonary -Essential hypertension Lopressor 25 mg twice a day -Chronic kidney disease stage II likely nephrosclerosis Follow renal function -BPH Cardura 4 mg a day -Anxiety not otherwise specified Xanax when necessary DuoNeb. IV Zosyn. Nebulized Perforomist, Pulmicort. Mucinex. Flutter valve. Humidified oxygen. Follow with pulmonary. Discussed with the patient and daughter the bedside. Patient may benefit from bronchial lavage. Has a spade of multiple pneumonias recently.
[2021-12-07] MEDS: MONTELUKAST 10 MG TAB PO SCH (20:19)
[2021-12-07] MEDS: ALPRAZolam 0.5 MG TAB PO PRN (20:29)
[2021-12-08] MEDS: PIPERACILLIN-TAZOBACTAM 3.375 GM in SODIUM CHLORIDE 0.9% 100 ML IVPB SCH ×3 (00:16→15:26)
[2021-12-08] MEDS: methylPREDNISolone SOD SUCCI 40 MG/ML 1 ML VIAL IV SCH ×3 (00:16→15:25)
[2021-12-08] MEDS: SODIUM CHLORIDE 0.9% 1,000 ML IV SCH ×3 (00:18→15:25)
[2021-12-08] MEDS: IPRATROPIUM-ALBUTEROL 3 ML NEB INHALATION SCH ×4 (07:06→19:33)
[2021-12-08] MEDS: BUDESONIDE 1 MG/2 ML NEBU INHALATION SCH ×2 (07:06→19:31)
[2021-12-08] MEDS: FORMOTEROL FUMARATE 20 MCG/2 ML NEBU INHALATION SCH ×2 (07:08→19:31)
[2021-12-08] MEDS: LACTOBACILLUS ACIDOPH & BULGAR 1 EACH PACKET PO SCH (08:11)
[2021-12-08] MEDS: guaiFENesin 600 MG TABLET.ER PO SCH ×4 (08:11→21:32)
[2021-12-08] MEDS: ASPIRIN 81 MG PO SCH (08:11)
[2021-12-08] MEDS: LORATADINE 10 MG TAB PO SCH (08:11)
[2021-12-08] MEDS: CHOLECALCIFEROL 25 MCG (1000 IU) TABLET PO SCH (08:11)
[2021-12-08] MEDS: METOPROLOL TARTRATE 25 MG TAB PO SCH ×2 (08:11→21:32)
[2021-12-08] MEDS: BENZONATATE 100 MG CAP PO SCH ×3 (08:11→21:33)
[2021-12-08 11:36] LABS: African American GFR (CKD) 60.6 (60.0-200.0); Anion Gap 9.9 mmol/L (10.00-18.00); BUN/Creat Ratio 37.23 Ratio (12.00-20.00); Blood Urea Nitrogen 48.4 mg/dL (9.0-27.0); Calcium 8.5 mg/dL (8.7-10.3); Carbon Dioxide 24.1 mmol/L (20.0-27.5); Non-African American GFR(CKD) 52.3 (60.0-200.0); Potassium 4.7 mmol/L (3.5-5.5)
--- NOTE | 2021-12-08 12:59 | P.PN ---
Progress Note - Text Progress Note Date: 12/08/21 Chief Complaint: Cough This is a 76-year-old patient who follows with Dr. Keshawn Suarez. Chronic stable medical conditions include DVT, GERD, hypertension, uses CPAP, home oxygen 2 L as needed, factor 5 Leyden, bronchial silicone stent now removed, prior history of hemodialysis, lung cancer diagnosed and treated in [place]. Colostomy. On April 12 2021, in [place] - bowel perforation -had 4 inches of large bowel removed. - colostomy. During that hospitalization he also pneumonia. Then in July again had a lung infection. - port placed / 2 weeks of antibiotics. October 2021 admitted to [facility] in treated with ceftazidime. Following discharge diagnosed with E. coli on November 20 and treated with antibiotics by Dr. Cortez. Sputum color improved feeling better. Now for last 3 days is having increasing sputum production take yellow-green in color. More congested in the chest. Short of breath. No fever and chills. Some decrease in appetite. Tired rundown. Admitted for the same. Possible pneumonia. December 07: Congested cough. Shortness of breath. IV Zosyn. Being followed by pulmonary. Discussed with the patient. May benefit from bronchial lavage. Will discuss with pulmonary. December 08: Sitting at edge of bed. Less congested cough. Some shortness breath. On IV Zosyn. Using his flutter valve and incentive spirometry. Oral intake fair. Active Medications Acetaminophen (Acetaminophen Tab 325 Mg Tab) 650 mg PO Q6HR PRN PRN Reason: Mild Pain or Fever > 100.5 Albuterol Sulfate (Albuterol Hfa Inhaler) 2 puff INHALATION RT-QID PRN PRN Reason: Shortness Of Breath Albuterol/Ipratropium (Ipratropium-Albuterol 3 Ml Neb) 3 ml INHALATION RT-QID [facility] Last Admin: 12/08/21 11:00 Dose: 3 ml Albuterol/Ipratropium (Ipratropium-Albuterol 3 Ml Neb) 3 ml INHALATION RT-Q4H PRN PRN Reason: shortness of breath Allopurinol (Allopurinol 100 Mg Tab) 100 mg PO HS [facility] Alprazolam (Alprazolam 0.5 Mg Tab) 0.5 mg PO TID PRN PRN Reason: Anxiety Last Admin: 12/07/21 20:29 Dose: 0.5 mg Aspirin (Aspirin 81 Mg) 81 mg PO DAILY [facility] Last Admin: 12/08/21 08:11 Dose: 81 mg Benzonatate (Benzonatate 100 Mg Cap) 200 mg PO TID [facility] Last Admin: 12/08/21 08:11 Dose: 200 mg Budesonide (Budesonide 1 Mg/2 Ml Nebu) 1 mg INHALATION RT-BID [facility] Last Admin: 12/08/21 07:06 Dose: 1 mg Calcium Carbonate/Glycine (Calcium Carbonate 500 Mg Chewable) 1,000 mg PO Q4HR PRN PRN Reason: Dyspepsia Cholecalciferol (Cholecalciferol 25 Mcg (1000 Iu) Tablet) 25 mcg PO DAILY [facility] Last Admin: 12/08/21 08:11 Dose: 25 mcg Doxazosin Mesylate (Doxazosin 4 Mg Tab) 4 mg PO [facility] Formoterol Fumarate (Formoterol Fumarate 20 Mcg/2 Ml Nebu) 20 mcg INHALATION RT-BID [facility] Last Admin: 12/08/21 07:08 Dose: 20 mcg Guaifenesin (Guaifenesin 600 Mg Tablet.Er) 600 mg PO QID [facility] Last Admin: 12/08/21 12:45 Dose: 600 mg Guaifenesin/Codeine Phosphate (Guaifenesin-Coden 100-10mg/5ml 10 Ml Cup) 5 ml PO Q4HR PRN PRN Reason: Cough Last Admin: 12/07/21 14:19 Dose: 5 ml Sodium Chloride (Saline 0.9%) 1,000 mls @ 100 mls/hr IV .Q10H [facility] Last Admin: 12/08/21 12:31 Dose: Not Given Piperacillin Sod/Tazobactam (Sod 3.375 gm/ Sodium Chloride) 100 mls @ 25 mls/hr IVPB Q8HR [facility]; Protocol Last Admin: 12/08/21 08:14 Dose: 25 mls/hr Lactobacillus Acidoph/Bulgaricus (Lactobacillus Acidoph & Bulgar 1 Each Packet) 1 each PO DAILY [facility] Last Admin: 12/08/21 08:11 Dose: 1 each Lactulose (Lactulose 20 Gm/30 Ml Cup) 20 gm PO DAILY PRN PRN Reason: Constipation Loratadine (Loratadine 10 Mg Tab) 10 mg PO DAILY [facility] Last Admin: 12/08/21 08:11 Dose: 10 mg Methylprednisolone Sodium Succinate (Methylprednisolone Sod Succi 40 Mg/Ml 1 Ml Vial) 40 mg IV Q8HR [facility] Last Admin: 12/08/21 08:11 Dose: 40 mg Metoprolol Tartrate (Metoprolol Tartrate 25 Mg Tab) 25 mg PO BID [facility] Last Admin: 12/08/21 08:11 Dose: 25 mg Miscellaneous Information (Pneumonia Protocol Utilized 1 Each Misc) 1 each PO ONCE PRN PRN Reason: Per Protocol Montelukast Sodium (Montelukast 10 Mg Tab) 10 mg PO HS [facility] Last Admin: 12/07/21 20:19 Dose: 10 mg Naloxone HCl (Naloxone 0.4 Mg/Ml 1 Ml Vial) 0.2 mg IV Q2M PRN PRN Reason: Opioid Reversal Ondansetron HCl (Ondansetron 4 Mg/2 Ml Vial) 4 mg IVP Q8HR PRN PRN Reason: Nausea And Vomiting Past medical history to include: Factor V Leyden mutation, COPD, DVT, GERD, hypertension, COPD, Pseudomonas lung infection, uses CPAP, oxygen when necessary, diverticulitis, bronchial silicone stent now removed, hemodialysis now discontinued CK D stage III, right lung solid nodule with radiation treatment. Social history: Lives alone. Smoked 1-2 packs a day for 50 years stopped in 2012. Did drink significant alcohol stopped some time ago. Retired from [employer]. Family history: Colon cancer Physical examination: VITAL SIGNS: 97.6, 57, 17, 180/77, 100% room air GENERAL:, sitting edge of the bed, less congested cough EYES: Pupils equal. Conjunctiva normal. HEENT: External appearance of nose and ears normal, oral cavity grossly normal. NECK: JVD not raised; masses not palpable. HEART: First and second heart sounds are normal; no edema. LUNGS:[ Respiratory rate increased; decreased breath sounds, decreased coarse expiratory crackles especially anteriorly, less wheezing. ABDOMEN: Soft, nontender, liver spleen not palpable, no masses palpable. PSYCH: Alert and oriented x3; mood and affect normal. MUSCULOSKELETAL:No Clubbing/cyanosis;muscles-grossly intact. OA INVESTIGATIONS, reviewed in the clinical context: Sputum E. coli December 07: Pro-calcitonin 0.19 WBC 10.5 hemoglobin 11.5 platelets 231 potassium 4.7 BUN 52 creatinine 1.27 EKG tracing personally reviewed by me-normal sinus rhythm, right bundle branch block Chest x-ray film personally reviewed by [id number] nodule, right basilar infiltrate Previous labs: Creatinine 1.15 on November 20 Sputum E. coli on November 20 Assessment plan: -Acute pneumonia in a patient with Recurrent pneumonia in a patient with underlying COPD. recent cultures have been positive sputum positive for stenitophomas maltophilia, MRSA, E. coli. s received several courses of antibiotics.: This admission sputum culture positive for E. coli Slow to respond Follow with pulmonary. Consider bronchoscopy with lavage. IV Zosyn -Acute COPD exacerbation in a previous smoker: Slow to respond DuoNeb. IV Solu-Medrol. Perforomist. Nebulized steroids. -Hyperuricemia Allopurinol 100 mg a day -Factor V Leyden mutation -Right upper lung nodule treated with the radiation Follow with pulmonary -Essential hypertension Lopressor 25 mg twice a day -Chronic kidney disease stage II likely nephrosclerosis Follow renal function -BPH Cardura 4 mg a day -Anxiety not otherwise specified Xanax when necessary DuoNeb. IV Zosyn. Nebulized Perforomist, Pulmicort. Mucinex. Flutter valve. Humidified oxygen. Follow with pulmonary. Discussed with patient.
--- NOTE | 2021-12-08 14:44 | P.PN ---
Subjective Progress Note Date: 12/08/21 Principal diagnosis: Acute on chronic hypoxic respiratory failure secondary to right lower lobe pneumonia This is a 76-year-old male patient with a history of anxiety, factor V Leiden mutation, hypertension, chronic kidney disease, right renal mass, left lower extremity DVT, perforation the colon post colectomy with previous colostomy, tracheobronchomalacia, lung nodules, chronic obstructive pulmonary disease with an FEV1 value 55% of predicted and is maintained on Trelegy in the outpatient setting. He also has a history of a solitary nodule of the lung and the right upper lobe he did receive radiation therapy while in [place]. No biopsy was performed. No significant metabolic uptake of the nodule of the right upper lobe. He patient also has a history of multiple pulmonary infections with a previous pseudomonas aeruginosa infection back in 2019. More recently on 08/30/2021 is sputum was positive for MRSA. In September 2021 he was positive for E. coli and Stenotrophomonas maltophilia, 11/20/2021 sputum culture was positive for E. coli. He follows with Dr. Cortez in our office. He was just seen 12/02/2021 and was initiated on cefuroxime. He presented here to the emergency room yesterday with complaints of increasing shortness of breath, cough and congestion. Chest x-ray continues to show right basilar airspace opacities and a trace right pleural effusion. Some of which may be chronic in nature. Sputum culture pending. White count 10.5. Hemoglobin 11.5. Sodium 141. Potassium 4.9. BUN 45. Creatinine 1.2. Pro-calcitonin 0.19. Coronavirus by PCR not detected. Influenza screen negative. He is seen today in consultation on the regular medical floor. Awake and alert in no acute distress. Maintaining O2 saturations in the 90s on 2 L/m per nasal cannula. Afebrile. Hemodynamically stable. Reevaluated today on 12/08/21, patient is feeling better today, he remains on broad-spectrum antibiotics, patient is on Zosyn, off vancomycin, his sputum cultures are positive for E. coli, sensitive to Zosyn, resistant to multiple other antibiotics. Clinically the patient is feeling better, breathing easier, nonetheless he continues to have productive cough. WBC count was 10.5 on admission electrolytes are normal renal profile is slightly abnormal with a BUN of 48 creatinine 1.3 Objective - Vital Signs Vital signs: Vital Signs Temp 97.6 F 12/08/21 11:13 Pulse 57 L 12/08/21 11:13 Resp 17 12/08/21 11:13 BP 180/77 12/08/21 11:13 Pulse Ox 100 12/08/21 11:13 FiO2 Intake & Output 12/07/21 12/08/21 12/08/21 18:59 06:59 18:59 Intake Total 1400 500 Balance 1400 500 Intake: Intake, IV Titration 1400 500 Amount Piperacillin-Tazobactam 3 200 .375 gm In Sodium Chloride 0.9% 100 ml @ 25 mls/hr IVPB Q8HR [facility] Rx# :[id number] Sodium Chloride 0.9% 1, 1200 500 000 ml @ 100 mls/hr IV . Q10H [facility] Rx#:[id number] Other: Voiding Method Toilet # Voids 2 - Exam Physical Exam: Revealed a 76-year-old white male in no distress on 2 L nasal cannula Head: Atraumatic, normocephalic. HEENT:[Neck is supple.] [No neck masses.] [No thyromegaly.] [No JVD.] Chest: [The medical chest expansion crackles at the bases especially at the right base Cardiac Exam: [Normal S1 and S2, no S3 gallop, no murmur.] Abdomen: [Soft, nontender, no megaly, no rebound, no guarding, normal bowel sounds.] Extremities: [No clubbing, no edema, no cyanosis.] Neurological Exam: [No focal neurologic deficit.] Alert oriented 3 Psychiatric: Normal, affect and normal mental status examination. Skin: No rashes - Labs CBC & Chem 7: 12/06/21 14:03 12/08/21 06:53 Labs: Abnormal Lab Results - Last 24 Hours (Table) 12/08/21 Range/Units 06:53 Anion Gap 9.90 L (10.00-18.00) mmol/L BUN 48.4 H (9.0-27.0) mg/dL Est GFR (CKD-EPI)NonAf 52.3 L (60.0-200.0) BUN/Creatinine Ratio 37.23 H (12.00-20.00) Ratio Glucose 168 H (70-110) mg/dL Calcium 8.5 L (8.7-10.3) mg/dL Microbiology - Last 24 Hours (Table) 12/06/21 15:00 Gram Stain - Final Sputum Sputum Culture - Final Escherichia coli 12/06/21 14:03 Blood Culture - Preliminary Blood No Growth after 24 hours 12/06/21 14:03 Blood Culture - Preliminary Blood No Growth after 24 hours Assessment and Plan Assessment: Impression: Acute on chronic hypoxic respiratory failure secondary to E. coli pneumonia Recurrent multiple pulmonary infections in the past with multiple organisms Right upper lobe nodule being monitored by Dr. Cortez outpatient basis Chronic hypoxic respiratory failure secondary to COPD Right renal mass being followed on outpatient basis Severe tracheobronchomalacia Factor V Leyden mutation History of left lower extremity DVT Chronic kidney disease stage II History of colectomy/colostomy Recommendation: Continue Zosyn Continue bronchodilators Continue Solu-Medrol Consider discharge planning in the next 2-3 days. Follow-up with Dr. Cortez on outpatient basis. Time with Patient: Less than 30
[2021-12-08] MEDS: allopurinoL 100 MG TAB PO SCH (21:32)
[2021-12-08] MEDS: MONTELUKAST 10 MG TAB PO SCH (21:32)
[2021-12-08] MEDS: DOXAZOSIN 4 MG TAB PO SCH (21:33)
[2021-12-08] MEDS: ALPRAZolam 0.5 MG TAB PO PRN (21:33)
[2021-12-09] MEDS: PIPERACILLIN-TAZOBACTAM 3.375 GM in SODIUM CHLORIDE 0.9% 100 ML IVPB SCH ×4 (00:04→23:26)
[2021-12-09] MEDS: methylPREDNISolone SOD SUCCI 40 MG/ML 1 ML VIAL IV SCH ×4 (00:05→23:27)
[2021-12-09] MEDS: BUDESONIDE 1 MG/2 ML NEBU INHALATION SCH ×2 (07:19→20:58)
[2021-12-09] MEDS: IPRATROPIUM-ALBUTEROL 3 ML NEB INHALATION SCH ×4 (07:19→20:58)
[2021-12-09] MEDS: FORMOTEROL FUMARATE 20 MCG/2 ML NEBU INHALATION SCH ×2 (07:19→20:58)
[2021-12-09] MEDS: SODIUM CHLORIDE 0.9% 1,000 ML IV SCH ×2 (08:31→15:54)
[2021-12-09] MEDS: guaiFENesin 600 MG TABLET.ER PO SCH ×4 (08:35→23:27)
[2021-12-09] MEDS: METOPROLOL TARTRATE 25 MG TAB PO SCH ×2 (08:35→20:55)
[2021-12-09] MEDS: LORATADINE 10 MG TAB PO SCH ×2 (08:35→08:40)
[2021-12-09] MEDS: LACTOBACILLUS ACIDOPH & BULGAR 1 EACH PACKET PO SCH (08:35)
[2021-12-09] MEDS: BENZONATATE 100 MG CAP PO SCH ×3 (08:35→20:55)
[2021-12-09] MEDS: ASPIRIN 81 MG PO SCH (08:35)
[2021-12-09] MEDS: CHOLECALCIFEROL 25 MCG (1000 IU) TABLET PO SCH (08:35)
[2021-12-09 09:31] LABS: African American GFR (CKD) 50.5 (60.0-200.0); Anion Gap 8.2 mmol/L (10.00-18.00); BUN/Creat Ratio 34.64 Ratio (12.00-20.00); Blood Urea Nitrogen 52.3 mg/dL (9.0-27.0); Calcium 8.5 mg/dL (8.7-10.3); Carbon Dioxide 24.7 mmol/L (20.0-27.5); Non-African American GFR(CKD) 43.6 (60.0-200.0); Potassium 4.8 mmol/L (3.5-5.5)
--- NOTE | 2021-12-09 13:24 | P.PN ---
Progress Note - Text Progress Note Date: 12/09/21 Chief Complaint: Cough This is a 76-year-old patient who follows with Dr. Keshawn Suarez. Chronic stable medical conditions include DVT, GERD, hypertension, uses CPAP, home oxygen 2 L as needed, factor 5 Leyden, bronchial silicone stent now removed, prior history of hemodialysis, lung cancer diagnosed and treated in [place]. Colostomy. On April 12 2021, in [place] - bowel perforation -had 4 inches of large bowel removed. - colostomy. During that hospitalization he also pneumonia. Then in July again had a lung infection. - port placed / 2 weeks of antibiotics. October 2021 admitted to [place] in treated with ceftazidime. Following discharge diagnosed with E. coli on November 20 and treated with antibiotics by Dr. Cortez. Sputum color improved feeling better. Now for last 3 days is having increasing sputum production take yellow-green in color. More congested in the chest. Short of breath. No fever and chills. Some decrease in appetite. Tired rundown. Admitted for the same. Possible pneumonia. December 07: Congested cough. Shortness of breath. IV Zosyn. Being followed by pulmonary. Discussed with the patient. May benefit from bronchial lavage. Will discuss with pulmonary. December 08: Sitting at edge of bed. Less congested cough. Some shortness breath. On IV Zosyn. Using his flutter valve and incentive spirometry. Oral intake fair. December 09: Sitting up. Congested cough with some shortness of breath. IV Zosyn. Oral intake fair. Seen by Dr. Perez from pulmonary. ID consulted for outpatient IV antibiotics. Discussed with patient. Came back to speak to the patient and the daughter again. Blood pressure uncontrolled. Add lisinopril hydrochlorothiazide 12/18.5 one tablet twice a Active Medications Acetaminophen (Acetaminophen Tab 325 Mg Tab) 650 mg PO Q6HR PRN PRN Reason: Mild Pain or Fever > 100.5 Albuterol Sulfate (Albuterol Hfa Inhaler) 2 puff INHALATION RT-QID PRN PRN Reason: Shortness Of Breath Albuterol/Ipratropium (Ipratropium-Albuterol 3 Ml Neb) 3 ml INHALATION RT-QID [facility] Last Admin: 12/09/21 11:29 Dose: 3 ml Albuterol/Ipratropium (Ipratropium-Albuterol 3 Ml Neb) 3 ml INHALATION RT-Q4H PRN PRN Reason: shortness of breath Allopurinol (Allopurinol 100 Mg Tab) 100 mg PO HS [facility] Last Admin: 12/08/21 21:32 Dose: 100 mg Alprazolam (Alprazolam 0.5 Mg Tab) 0.5 mg PO TID PRN PRN Reason: Anxiety Last Admin: 12/08/21 21:33 Dose: 0.5 mg Aspirin (Aspirin 81 Mg) 81 mg PO DAILY [facility] Last Admin: 12/09/21 08:35 Dose: 81 mg Benzonatate (Benzonatate 100 Mg Cap) 200 mg PO TID [facility] Last Admin: 12/09/21 08:35 Dose: 200 mg Budesonide (Budesonide 1 Mg/2 Ml Nebu) 1 mg INHALATION RT-BID [facility] Last Admin: 12/09/21 07:19 Dose: 1 mg Calcium Carbonate/Glycine (Calcium Carbonate 500 Mg Chewable) 1,000 mg PO Q4HR PRN PRN Reason: Dyspepsia Cholecalciferol (Cholecalciferol 25 Mcg (1000 Iu) Tablet) 25 mcg PO DAILY [facility] Last Admin: 12/09/21 08:35 Dose: 25 mcg Doxazosin Mesylate (Doxazosin 4 Mg Tab) 4 mg PO HS [facility] Last Admin: 12/08/21 21:33 Dose: 4 mg Formoterol Fumarate (Formoterol Fumarate 20 Mcg/2 Ml Nebu) 20 mcg INHALATION RT-BID [facility] Last Admin: 12/09/21 07:19 Dose: 20 mcg Guaifenesin (Guaifenesin 600 Mg Tablet.Er) 600 mg PO QID [facility] Last Admin: 12/09/21 12:30 Dose: 600 mg Guaifenesin/Codeine Phosphate (Guaifenesin-Coden 100-10mg/5ml 10 Ml Cup) 5 ml PO Q4HR PRN PRN Reason: Cough Last Admin: 12/07/21 14:19 Dose: 5 ml Sodium Chloride (Saline 0.9%) 1,000 mls @ 100 mls/hr IV .Q10H [facility] Last Admin: 12/09/21 08:31 Dose: 100 mls/hr Piperacillin Sod/Tazobactam (Sod 3.375 gm/ Sodium Chloride) 100 mls @ 25 mls/hr IVPB Q8HR [facility]; Protocol Last Admin: 12/09/21 08:35 Dose: 25 mls/hr Lactobacillus Acidoph/Bulgaricus (Lactobacillus Acidoph & Bulgar 1 Each Packet) 1 each PO DAILY [facility] Last Admin: 12/09/21 08:35 Dose: 1 each Lactulose (Lactulose 20 Gm/30 Ml Cup) 20 gm PO DAILY PRN PRN Reason: Constipation Loratadine (Loratadine 10 Mg Tab) 10 mg PO DAILY [facility] Last Admin: 12/09/21 08:40 Dose: Not Given Methylprednisolone Sodium Succinate (Methylprednisolone Sod Succi 40 Mg/Ml 1 Ml Vial) 40 mg IV Q8HR [facility] Last Admin: 12/09/21 08:35 Dose: 40 mg Metoprolol Tartrate (Metoprolol Tartrate 25 Mg Tab) 25 mg PO BID [facility] Last Admin: 12/09/21 08:35 Dose: 25 mg Miscellaneous Information (Pneumonia Protocol Utilized 1 Each Misc) 1 each PO ONCE PRN PRN Reason: Per Protocol Montelukast Sodium (Montelukast 10 Mg Tab) 10 mg PO HS [facility] Last Admin: 12/08/21 21:32 Dose: 10 mg Naloxone HCl (Naloxone 0.4 Mg/Ml 1 Ml Vial) 0.2 mg IV Q2M PRN PRN Reason: Opioid Reversal Ondansetron HCl (Ondansetron 4 Mg/2 Ml Vial) 4 mg IVP Q8HR PRN PRN Reason: Nausea And Vomiting Past medical history to include: Factor V Leyden mutation, COPD, DVT, GERD, hypertension, COPD, Pseudomonas lung infection, uses CPAP, oxygen when necessary, diverticulitis, bronchial silicone stent now removed, hemodialysis now discontinued CK D stage III, right lung solid nodule with radiation treatment. Social history: Lives alone. Smoked 1-2 packs a day for 50 years stopped in 2012. Did drink significant alcohol stopped some time ago. 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 Family history: Colon cancer Physical examination: VITAL SIGNS: 37.8, 60, 20, 172/80, 98% room air GENERAL:, sitting edge of the bed, less congested cough EYES: Pupils equal. Conjunctiva normal. HEENT: External appearance of nose and ears normal, oral cavity grossly normal. NECK: JVD not raised; masses not palpable. HEART: First and second heart sounds are normal; no edema. LUNGS:[ Respiratory rate increased; decreased breath sounds, decreased coarse expiratory crackles especially anteriorly, less wheezing. ABDOMEN: Soft, nontender, liver spleen not palpable, no masses palpable. PSYCH: Alert and oriented x3; mood and affect normal. MUSCULOSKELETAL:No Clubbing/cyanosis;muscles-grossly intact. OA INVESTIGATIONS, reviewed in the clinical context: December 09: Potassium 4.8 creatinine 1.5 Sputum E. coli December 07: Pro-calcitonin 0.19 WBC 10.5 hemoglobin 11.5 platelets 231 potassium 4.7 BUN 52 creatinine 1.27 EKG tracing personally reviewed by me-normal sinus rhythm, right bundle branch block Chest x-ray film personally reviewed by [id number] nodule, right basilar infiltrate Previous labs: Creatinine 1.15 on November 20 Sputum E. coli on November 20 Assessment plan: -Acute pneumonia in a patient with Recurrent pneumonia in a patient with underlying COPD. recent cultures have been positive sputum positive for stenitophomas maltophilia, MRSA, E. coli. s received several courses of antibiotics.: This admission sputum culture positive for E. coli Slow to respond Follow with pulmonary. ID consulted.. IV Zosyn -Acute COPD exacerbation in a previous smoker: Slow to respond DuoNeb. IV Solu-Medrol. Perforomist. Nebulized steroids. -Hyperuricemia Allopurinol 100 mg a day -Factor V Leyden mutation -Right upper lung nodule treated with the radiation Follow with pulmonary -Essential hypertension Lopressor 25 mg twice a day -Chronic kidney disease stage II likely nephrosclerosis Follow renal function -BPH Cardura 4 mg a day -Anxiety not otherwise specified Xanax when necessary -Chronic kidney disease likely nephrosclerosis stage III Follow renal function DuoNeb. IV Zosyn. Nebulized Perforomist, Pulmicort. Mucinex. Flutter valve. Humidified oxygen. Discussed with patient daughter, pulmonary. ID consulted. For possible outpatient IV antibiotics.
[2021-12-09] MEDS: LISINOPRIL-HCTZ 10-12.5 MG 1 EACH TAB PO SCH ×2 (13:42→23:27)
--- NOTE | 2021-12-09 13:47 | P.PN ---
Subjective Progress Note Date: 12/09/21 This is a 76-year-old male patient with a history of anxiety, factor V Leiden mutation, hypertension, chronic kidney disease, right renal mass, left lower extremity DVT, perforation the colon post colectomy with previous colostomy, tracheobronchomalacia, lung nodules, chronic obstructive pulmonary disease with an FEV1 value 55% of predicted and is maintained on Trelegy in the outpatient setting. He also has a history of a solitary nodule of the lung and the right upper lobe he did receive radiation therapy while in [place]. No biopsy was performed. No significant metabolic uptake of the nodule of the right upper lobe. He patient also has a history of multiple pulmonary infections with a previous pseudomonas aeruginosa infection back in 2019. More recently on 08/30/2021 is sputum was positive for MRSA. In September 2021 he was positive for E. coli and Stenotrophomonas maltophilia, 11/20/2021 sputum culture was positive for E. coli. He follows with Dr. Cortez in our office. He was just seen 12/02/2021 and was initiated on cefuroxime. He presented here to the emergency room yesterday with complaints of increasing shortness of breath, cough and congestion. Chest x-ray continues to show right basilar airspace opacities and a trace right pleural effusion. Some of which may be chronic in nature. Sputum culture pending. White count 10.5. Hemoglobin 11.5. Sodium 141. Potassium 4.9. BUN 45. Creatinine 1.2. Pro-calcitonin 0.19. Coronavirus by PCR not detected. Influenza screen negative. He is seen today in consultation on the regular medical floor. Awake and alert in no acute distress. Maintaining O2 saturations in the 90s on 2 L/m per nasal cannula. Afebrile. Hemodynamically stable. Reevaluated today on 12/08/21, patient is feeling better today, he remains on broad-spectrum antibiotics, patient is on Zosyn, off vancomycin, his sputum cultures are positive for E. coli, sensitive to Zosyn, resistant to multiple other antibiotics. Clinically the patient is feeling better, breathing easier, nonetheless he continues to have productive cough. WBC count was 10.5 on admission electrolytes are normal renal profile is slightly abnormal with a BUN of 48 creatinine 1.3 The patient is seen today 12/09/2021 in follow-up on the regular medical floor. He is currently sitting up at the bedside. Awake and alert in no acute distress. He is currently maintaining O2 saturation 98% on room air. His sputum culture was positive for E. coli. Currently on Zosyn. He is feeling better. Less phlegm and congestion. The cultures revealed no growth. Sodium 137. Potassium 4.8. BUN 52. Creatinine 1.5. Glucose 178. He is continued on DuoNeb inhalations, Pulmicort and Perforomist inhalations, Mucinex, Robitussin, IV Solu-Medrol, Singulair. Objective - Vital Signs Vital signs: Vital Signs Temp 97.8 F 12/09/21 11:31 Pulse 61 12/09/21 11:41 Resp 20 12/09/21 11:31 BP 172/80 12/09/21 12:03 Pulse Ox 98 12/09/21 11:31 FiO2 Intake & Output 12/08/21 12/09/21 12/09/21 18:59 06:59 18:59 Intake Total 1400 1380 Balance 1400 1380 Intake: Intake, IV Titration 1400 900 Amount Piperacillin-Tazobactam 3 200 100 .375 gm In Sodium Chloride 0.9% 100 ml @ 25 mls/hr IVPB Q8HR [facility] Rx# :[id number] Sodium Chloride 0.9% 1, 1200 800 000 ml @ 100 mls/hr IV . Q10H [facility] Rx#:[id number] Oral 480 Other: Voiding Method Toilet # Voids 1 - Exam GENERAL EXAM: Alert, 76-year-old male, on room air, comfortable in no apparent distress. HEAD: Normocephalic. EYES: Normal reaction of pupils, equal size. NOSE: Clear with pink turbinates. THROAT: No erythema or exudates. NECK: No masses, no JVD. CHEST: No chest wall deformity. LUNGS: Equal air entry with crackles in the right lung base CVS: S1 and S2 normal with no audible murmur, regular rhythm. ABDOMEN: No hepatosplenomegaly, normal bowel sounds, no guarding or rigidity. SPINE: No scoliosis or deformity SKIN: No rashes CENTRAL NERVOUS SYSTEM: No focal deficits, tone is normal in all 4 extremities. EXTREMITIES: There is no peripheral edema. No clubbing, no cyanosis. Peripheral pulses are intact. - Labs CBC & Chem 7: 12/06/21 14:03 12/09/21 05:14 Labs: Abnormal Lab Results - Last 24 Hours (Table) 12/09/21 Range/Units 05:14 Anion Gap 8.20 L (10.00-18.00) mmol/L BUN 52.3 H (9.0-27.0) mg/dL Est GFR (CKD-EPI)AfAm 50.5 L (60.0-200.0) Est GFR (CKD-EPI)NonAf 43.6 L (60.0-200.0) BUN/Creatinine Ratio 34.64 H (12.00-20.00) Ratio Glucose 178 H (70-110) mg/dL Calcium 8.5 L (8.7-10.3) mg/dL Microbiology - Last 24 Hours (Table) 12/06/21 14:03 Blood Culture - Preliminary Blood No Growth after 48 hours 12/06/21 14:03 Blood Culture - Preliminary Blood No Growth after 48 hours Assessment and Plan Assessment: Acute on chronic hypoxemic respiratory failure secondary to suspected right lower lobe pneumonia. Some changes of which are chronic. Sputum culture positive for E. coli. Pro-calcitonin's and 0.19. Currently on Zosyn. Most recently on cefuroxime in the outpatient setting Frequent pulmonary infections and admissions, including pseudomonas aeruginosa, MRSA, E. coli, Stenotrophomonas maltophilia History of renal failure secondary to Bactrim Right upper lobe nodule being monitored in the outpatient setting. PET scan from 09/13/2021 revealed a 2.3 x 2.1 cm right upper lobe nodule. No metabolic uptake. Stable chronic consolidation/atelectasis of the right middle lobe. More prominent right basilar acute opacities including a 1.8 x 1.4 cm nodule that also has ametabolic. Did receive radiation therapy while in [place]. Chronic obstructive pulmonary disease on home oxygen Right renal mass being followed in the outpatient setting Severe tracheobronchomalacia Factor V Leiden mutation History of left lower extremity DVT Hypertension Chronic kidney disease stage II History of perforated colon with colectomy/colostomy Plan: The patient was seen and evaluated Labs and medications reviewed Sputum culture positive for E. coli, pro-calcitonin 0.19 Currently on Zosyn for now Consult ID services for long-term antibiotic use Continue DuoNebs, Pulmicort and Perforomist inhalations, IV Solu-Medrol We will continue to follow I have personally seen and examined the patient, performed the documentation and the assessment and plan as written. Number of minutes spent on the visit: 10.
[2021-12-09] MEDS: MONTELUKAST 10 MG TAB PO SCH (20:55)
[2021-12-09] MEDS: allopurinoL 100 MG TAB PO SCH (20:55)
[2021-12-09] MEDS: DOXAZOSIN 4 MG TAB PO SCH (20:55)
[2021-12-09] MEDS: ALPRAZolam 0.5 MG TAB PO PRN (20:56)
[2021-12-10] MEDS: FORMOTEROL FUMARATE 20 MCG/2 ML NEBU INHALATION SCH ×2 (07:22→19:36)
[2021-12-10] MEDS: BUDESONIDE 1 MG/2 ML NEBU INHALATION SCH ×2 (07:22→19:36)
[2021-12-10] MEDS: PIPERACILLIN-TAZOBACTAM 3.375 GM in SODIUM CHLORIDE 0.9% 100 ML IVPB SCH ×2 (07:22→15:27)
[2021-12-10] MEDS: IPRATROPIUM-ALBUTEROL 3 ML NEB INHALATION SCH ×4 (07:22→19:36)
[2021-12-10] MEDS: methylPREDNISolone SOD SUCCI 40 MG/ML 1 ML VIAL IV SCH ×3 (07:22→20:03)
--- NOTE | 2021-12-10 08:17 | P.CONS ---
History of Present Illness - Reason for Consult Consult date: 12/09/21 - History of Present Illness Patient is a 76-year-old male with a past medical history significant for advanced COPD home O2 history of recurrent pneumonia patient also have a recent admission at [facility] with the patient did have a perforated diverticulitis status post diverting colostomy presenting to the ER on 12/06/2021 for evaluation of increasing shortness of breath that has been getting worse for the last 3 to 4 days before presentation to the hospital patient complaining of shortness of breath on minimal exertion even at rest patient also have a cough moderate intensity and is bringing up some brian sputum no hemoptysis no pleuritic chest pain, patient did have some nausea but no vomiting no abdominal pain no diarrhea on presentation to the hospital patient was afebrile and no fever have been recorded subsequently patient did have a normal white count BUN/creatinine was elevated however creatinine is trending down platelets was mildly elevated influenza and COVID testing was negative patient did have a chest x-ray worsening right basilar airspace opacity and right effusion sputum culture has been finalized with the E. coli which showed some resistant pattern patient is allergic to cefepime currently on Zosyn infectious disease was consulted today for further management of antibiotic therapy Past Medical History Past Medical History: Blood Disorder, Cancer, COPD, Deep Vein Thrombosis (DVT), GERD/Reflux, Hypertension, Renal Disease Additional Past Medical History / Comment(s): hx of pseudomonus lung infection, uses CPAP not for sleep apnea, O2 prn 2l prn, diverticulits, Factor V Leiden, hx of bronchial silicone stent now removed, PICC line in past now removed, past hx dialysis for kidney damage, none currently, Stage 3 renal disease, Lung cancer - diagnosed and treated down in [place], Colostomy, hernia repair History of Any Multi-Drug Resistant Organisms: MRSA Year Discovered:: 08/30/21 MDRO Source:: Sputum Past Surgical History: Hernia Repair, Tonsillectomy Additional Past Surgical History / Comment(s): bronchoscopy, bronchial silicone stent, now removed, fatty tumor removed from chest area, COLONOSCOPY, alexandre cataract, hernia repair Past Anesthesia/Blood Transfusion Reactions: Previous Problems w/ Anesthesia Additional Past Anesthesia/Blood Transfusion Reaction / Comm: "as infant turned black and blue from ETHER". FACTOR V LEIDEN Past Psychological History: Anxiety Smoking Status: Former smoker Past Alcohol Use History: None Reported Additional Past Alcohol Use History / Comment(s): STARTED SMOKING AT AGE 14, QUIT SMOKING 2012 Past Drug Use History: None Reported - Past Family History Father Family Medical History: Cancer Additional Family Medical History / Comment(s): colon cancer Mother Family Medical History: Cancer Additional Family Medical History / Comment(s): leukemia Medications and Allergies Home Medications Medication Instructions Recorded Confirmed Type Montelukast Sodium [Singulair] 10 mg PO DAILY 01/24/14 12/06/21 History Albuterol Nebulized [Ventolin 2.5 mg INHALATION RT-TID PRN 07/25/16 12/06/21 History Nebulized] Aspirin [Adult Low Dose Aspirin EC] 81 mg PO DAILY 07/25/16 12/06/21 History Metoprolol Tartrate [Lopressor] 25 mg PO BID 07/25/16 12/06/21 History Cetirizine HCl [Zyrtec] 10 mg PO DAILY 08/19/16 12/06/21 History ALPRAZolam [Xanax] 0.5 mg PO TID PRN 09/01/18 12/06/21 History Cholecalciferol [Vitamin D3 (25 1,000 unit PO DAILY 09/01/18 12/06/21 History Mcg = 1000 Iu)] Doxazosin [Cardura] 4 mg PO DAILY 09/01/18 12/06/21 History L.acidoph,Paracasei, B.lactis 1 cap PO DAILY 09/01/18 12/06/21 History [Probiotic] Sodium Chloride 0.9% Nebuliz 3 ml INHALATION RT-QID 09/01/18 12/06/21 History [Saline 0.9% For Nebulization] guaiFENesin 400 mg PO BID 09/01/18 12/06/21 History allopurinoL [Zyloprim] 100 mg PO DAILY 11/21/19 12/06/21 History Albuterol Sulfate [Ventolin HFA] 2 puff INHALATION RT-QID PRN 10/21/21 12/06/21 History Budesonide 0.25 mg INHALATION RT-BID 10/21/21 12/06/21 History Fluticasone/Umeclidin/Vilanter 1 puff INHALATION RT-DAILY 10/21/21 12/06/21 History [Trelegy Ellipta 100-62.5-25] Acetaminophen Tab [Tylenol] 650 mg PO Q6HR PRN tab 10/25/21 12/06/21 Rx cefUROXime axetiL [Ceftin] 500 mg PO BID 12/06/21 12/06/21 History Allergies Allergy/AdvReac Type Severity Reaction Status Date / Time cefepime Allergy SHUT DOWN Verified 12/06/21 13:00 KIDNEYS ether Allergy Anaphylaxis Verified 12/06/21 13:00 Iodinated Contrast Media Allergy PAST Verified 12/06/21 13:00 [Iodinated Contrast Media - HISTORY OF Oral and] KIDNEY PROBLEMS venom-honey bee Allergy Anaphylaxis Verified 12/06/21 13:00 sulfamethoxazole AdvReac states Verified 12/06/21 13:00 [From Bactrim] effects kidneys trimethoprim [From Bactrim] AdvReac states Verified 12/06/21 13:00 effects kidneys Physical Exam Vitals: Vital Signs Temp Pulse Pulse Resp BP Pulse Ox 12/09/21 08:00 16 12/09/21 07:51 74 12/09/21 07:40 75 12/09/21 07:39 75 12/09/21 07:20 72 98 12/09/21 05:00 97.6 F 59 L 16 155/74 96 12/08/21 20:51 97.8 F 72 18 172/73 94 L 12/08/21 19:53 76 12/08/21 19:43 76 12/08/21 19:42 76 12/08/21 19:33 77 12/08/21 15:20 74 12/08/21 15:10 76 12/08/21 11:13 97.6 F 57 L 17 180/77 100 Intake and Output 12/08/21 12/09/21 12/09/21 22:59 06:59 14:59 Intake Total 1640 1140 Balance 1640 1140 Intake: Intake, IV Titration 1400 900 Amount Piperacillin-Tazobactam 3 200 100 .375 gm In Sodium Chloride 0.9% 100 ml @ 25 mls/hr IVPB Q8HR [facility] Rx# :[id number] Sodium Chloride 0.9% 1, 1200 800 000 ml @ 100 mls/hr IV . Q10H [facility] Rx#:[id number] Oral 240 240 Other: Voiding Method Toilet # Voids 1 Results CBC & Chem 7: 12/06/21 14:03 12/09/21 05:14 Labs: Abnormal Lab Results - Last 24 Hours (Table) 12/08/21 12/09/21 Range/Units 06:53 05:14 Anion Gap 9.90 L 8.20 L (10.00-18.00) mmol/L BUN 48.4 H 52.3 H (9.0-27.0) mg/dL Est GFR (CKD-EPI)AfAm 50.5 L (60.0-200.0) Est GFR (CKD-EPI)NonAf 52.3 L 43.6 L (60.0-200.0) BUN/Creatinine Ratio 37.23 H 34.64 H (12.00-20.00) Ratio Glucose 168 H 178 H (70-110) mg/dL Calcium 8.5 L 8.5 L (8.7-10.3) mg/dL Microbiology - Last 24 Hours (Table) 12/06/21 14:03 Blood Culture - Preliminary Blood No Growth after 48 hours 12/06/21 14:03 Blood Culture - Preliminary Blood No Growth after 48 hours 12/06/21 15:00 Gram Stain - Final Sputum Sputum Culture - Final Escherichia coli Assessment and Plan Plan: 1patient presented to hospital with increasing shortness of breath and cough in this patient with evidence of worsening pneumonia right lower lobe and sputum has been positive for drug-resistant E. coli likely etiology of his underlying pneumonia. 2-patient with multiple antibiotic allergies that would limit the number of antibiotics safe to use. 3Zosyn to continue and may need midline and outpatient IV antibiotics on discharge We will follow on clinical condition and cultures to further adjust medication if needed Thank you for this consultation will follow this patient along with you
[2021-12-10] MEDS: LACTOBACILLUS ACIDOPH & BULGAR 1 EACH PACKET PO SCH (08:40)
[2021-12-10] MEDS: guaiFENesin 600 MG TABLET.ER PO SCH ×3 (08:40→18:09)
[2021-12-10] MEDS: LISINOPRIL-HCTZ 10-12.5 MG 1 EACH TAB PO SCH ×2 (08:40→20:12)
[2021-12-10] MEDS: ASPIRIN 81 MG PO SCH (08:40)
[2021-12-10] MEDS: CHOLECALCIFEROL 25 MCG (1000 IU) TABLET PO SCH (08:40)
[2021-12-10] MEDS: BENZONATATE 100 MG CAP PO SCH ×3 (08:40→20:11)
[2021-12-10] MEDS: LORATADINE 10 MG TAB PO SCH (08:41)
[2021-12-10] MEDS: METOPROLOL TARTRATE 25 MG TAB PO SCH ×2 (08:41→20:12)
--- NOTE | 2021-12-10 13:43 | P.PN ---
Subjective Progress Note Date: 12/10/21 This is a 76-year-old male patient with a history of anxiety, factor V Leiden mutation, hypertension, chronic kidney disease, right renal mass, left lower extremity DVT, perforation the colon post colectomy with previous colostomy, tracheobronchomalacia, lung nodules, chronic obstructive pulmonary disease with an FEV1 value 55% of predicted and is maintained on Trelegy in the outpatient setting. He also has a history of a solitary nodule of the lung and the right upper lobe he did receive radiation therapy while in [place]. No biopsy was performed. No significant metabolic uptake of the nodule of the right upper lobe. He patient also has a history of multiple pulmonary infections with a previous pseudomonas aeruginosa infection back in 2019. More recently on 08/30/2021 is sputum was positive for MRSA. In September 2021 he was positive for E. coli and Stenotrophomonas maltophilia, 11/20/2021 sputum culture was positive for E. coli. He follows with Dr. Cortez in our office. He was just seen 12/02/2021 and was initiated on cefuroxime. He presented here to the emergency room yesterday with complaints of increasing shortness of breath, cough and congestion. Chest x-ray continues to show right basilar airspace opacities and a trace right pleural effusion. Some of which may be chronic in nature. Sputum culture pending. White count 10.5. Hemoglobin 11.5. Sodium 141. Potassium 4.9. BUN 45. Creatinine 1.2. Pro-calcitonin 0.19. Coronavirus by PCR not detected. Influenza screen negative. He is seen today in consultation on the regular medical floor. Awake and alert in no acute distress. Maintaining O2 saturations in the 90s on 2 L/m per nasal cannula. Afebrile. Hemodynamically stable. Reevaluated today on 12/08/21, patient is feeling better today, he remains on broad-spectrum antibiotics, patient is on Zosyn, off vancomycin, his sputum cultures are positive for E. coli, sensitive to Zosyn, resistant to multiple other antibiotics. Clinically the patient is feeling better, breathing easier, nonetheless he continues to have productive cough. WBC count was 10.5 on admission electrolytes are normal renal profile is slightly abnormal with a BUN of 48 creatinine 1.3 The patient is seen today 12/09/2021 in follow-up on the regular medical floor. He is currently sitting up at the bedside. Awake and alert in no acute distress. He is currently maintaining O2 saturation 98% on room air. His sputum culture was positive for E. coli. Currently on Zosyn. He is feeling better. Less phlegm and congestion. The cultures revealed no growth. Sodium 137. Potassium 4.8. BUN 52. Creatinine 1.5. Glucose 178. He is continued on DuoNeb inhalations, Pulmicort and Perforomist inhalations, Mucinex, Robitussin, IV Solu-Medrol, Singulair. The patient is seen today 12/10/2021 in follow-up on the regular medical floor. He is awake and alert in no acute distress. Sitting up at the bedside. He denies any worsening shortness of breath, cough or congestion. He is still dyspneic with conversation. Dyspneic on exertion. Loose productive cough. Sputum culture was positive drug resistant for E. coli. Blood cultures reveal no growth. He is currently on Zosyn. He may need a midline and outpatient IV antibiotics. ID is on the case. Objective - Vital Signs Vital signs: Vital Signs Temp 97.5 F L 12/10/21 11:03 Pulse 68 12/10/21 11:14 Resp 22 12/10/21 11:03 BP 188/82 12/10/21 11:03 Pulse Ox 95 12/10/21 11:03 FiO2 Intake & Output 12/09/21 12/10/21 12/10/21 18:59 06:59 18:59 Other: Voiding Method Toilet Toilet # Voids 2 2 - Exam GENERAL EXAM: Alert, pleasant 76-year-old male, on room air, comfortable in no apparent distress. HEAD: Normocephalic. EYES: Normal reaction of pupils, equal size. NOSE: Clear with pink turbinates. THROAT: No erythema or exudates. NECK: No masses, no JVD. CHEST: No chest wall deformity. LUNGS: Equal air entry with crackles in the right lung base CVS: S1 and S2 normal with no audible murmur, regular rhythm. ABDOMEN: No hepatosplenomegaly, normal bowel sounds, no guarding or rigidity. SPINE: No scoliosis or deformity SKIN: No rashes CENTRAL NERVOUS SYSTEM: No focal deficits, tone is normal in all 4 extremities. EXTREMITIES: There is no peripheral edema. No clubbing, no cyanosis. Peripheral pulses are intact. - Labs CBC & Chem 7: 12/06/21 14:03 12/09/21 05:14 Labs: Microbiology - Last 24 Hours (Table) 12/06/21 14:03 Blood Culture - Preliminary Blood No Growth after 72 hours 12/06/21 14:03 Blood Culture - Preliminary Blood No Growth after 72 hours Assessment and Plan Assessment: Acute on chronic hypoxemic respiratory failure secondary to suspected right lower lobe pneumonia. Some changes of which are chronic. Sputum culture positive for drug-resistant E. coli. Pro-calcitonin's and 0.19. Currently on Zosyn. Frequent pulmonary infections and admissions, including pseudomonas aeruginosa, MRSA, E. coli, Stenotrophomonas maltophilia History of renal failure secondary to Bactrim Right upper lobe nodule being monitored in the outpatient setting. PET scan from 09/13/2021 revealed a 2.3 x 2.1 cm right upper lobe nodule. No metabolic uptake. Stable chronic consolidation/atelectasis of the right middle lobe. More prominent right basilar acute opacities including a 1.8 x 1.4 cm nodule that also has ametabolic. Did receive radiation therapy while in [place]. Chronic obstructive pulmonary disease on home oxygen Right renal mass being followed in the outpatient setting Severe tracheobronchomalacia Factor V Leiden mutation History of left lower extremity DVT Hypertension Chronic kidney disease stage II History of perforated colon with colectomy/colostomy Plan: The patient was seen and evaluated Stable and on room air Sputum culture positive for drug-resistant E. coli Currently on Zosyn for now Continue DuoNebs, Pulmicort and Perforomist inhalations, IV Solu-Medrol We will continue to follow I have personally seen and examined the patient, performed the documentation and the assessment and plan as written. Number of minutes spent on the visit: 10.
[2021-12-10] MEDS: SODIUM CHLORIDE 0.9% 1,000 ML IV SCH ×2 (14:07→14:15)
--- NOTE | 2021-12-10 16:28 | P.PN ---
Progress Note - Text Progress Note Date: 12/10/21 Chief Complaint: Cough This is a 76-year-old patient who follows with Dr. Keshawn Suarez. Chronic stable medical conditions include DVT, GERD, hypertension, uses CPAP, home oxygen 2 L as needed, factor 5 Leyden, bronchial silicone stent now removed, prior history of hemodialysis, lung cancer diagnosed and treated in [place]. Colostomy. On April 12 2021, in [place] - bowel perforation -had 4 inches of large bowel removed. - colostomy. During that hospitalization he also pneumonia. Then in July again had a lung infection. - port placed / 2 weeks of antibiotics. October 2021 admitted to [place] in treated with ceftazidime. Following discharge diagnosed with E. coli on November 20 and treated with antibiotics by Dr. Cortez. Sputum color improved feeling better. Now for last 3 days is having increasing sputum production take yellow-green in color. More congested in the chest. Short of breath. No fever and chills. Some decrease in appetite. Tired rundown. Admitted for the same. Possible pneumonia. December 07: Congested cough. Shortness of breath. IV Zosyn. Being followed by pulmonary. Discussed with the patient. May benefit from bronchial lavage. Will discuss with pulmonary. December 08: Sitting at edge of bed. Less congested cough. Some shortness breath. On IV Zosyn. Using his flutter valve and incentive spirometry. Oral intake fair. December 09: Sitting up. Congested cough with some shortness of breath. IV Zosyn. Oral intake fair. Seen by Dr. Perez from pulmonary. ID consulted for outpatient IV antibiotics. Discussed with patient. Came back to speak to the patient and the daughter again. Blood pressure uncontrolled. Add lisinopril hydrochlorothiazide 12/18.5 one tablet twice daily December 10: Breathing stable. Some congested cough. Decrease sputum. Midline ordered. On IV Zosyn. Blood pressure medications adjusted yesterday. Awaiting manual blood pressure reading. Oral intake better. Active Medications Acetaminophen (Acetaminophen Tab 325 Mg Tab) 650 mg PO Q6HR PRN PRN Reason: Mild Pain or Fever > 100.5 Albuterol Sulfate (Albuterol Hfa Inhaler) 2 puff INHALATION RT-QID PRN PRN Reason: Shortness Of Breath Albuterol/Ipratropium (Ipratropium-Albuterol 3 Ml Neb) 3 ml INHALATION RT-QID PENDING SALE TO [facility] Last Admin: 12/10/21 15:17 Dose: 3 ml Albuterol/Ipratropium (Ipratropium-Albuterol 3 Ml Neb) 3 ml INHALATION RT-Q4H PRN PRN Reason: shortness of breath Allopurinol (Allopurinol 100 Mg Tab) 100 mg PO [facility] Last Admin: 12/09/21 20:55 Dose: 100 mg Alprazolam (Alprazolam 0.5 Mg Tab) 0.5 mg PO TID PRN PRN Reason: Anxiety Last Admin: 12/09/21 20:56 Dose: 0.5 mg Aspirin (Aspirin 81 Mg) 81 mg PO DAILY PENDING SALE TO [facility] Last Admin: 12/10/21 08:40 Dose: 81 mg Benzonatate (Benzonatate 100 Mg Cap) 200 mg PO TID PENDING SALE TO [facility] Last Admin: 12/10/21 15:28 Dose: 200 mg Budesonide (Budesonide 1 Mg/2 Ml Nebu) 1 mg INHALATION RT-BID PENDING SALE TO [facility] Last Admin: 12/10/21 07:22 Dose: 1 mg Calcium Carbonate/Glycine (Calcium Carbonate 500 Mg Chewable) 1,000 mg PO Q4HR PRN PRN Reason: Dyspepsia Cholecalciferol (Cholecalciferol 25 Mcg (1000 Iu) Tablet) 25 mcg PO DAILY [facility]END[facility] TO [facility] Last Admin: 12/10/21 08:40 Dose: 25 mcg Doxazosin Mesylate (Doxazosin 4 Mg Tab) 4 mg PO [facility] Last Admin: 12/09/21 20:55 Dose: 4 mg Formoterol Fumarate (Formoterol Fumarate 20 Mcg/2 Ml Nebu) 20 mcg INHALATION RT-BID PENDING SALE TO [facility] Last Admin: 12/10/21 07:22 Dose: 20 mcg Guaifenesin (Guaifenesin 600 Mg Tablet.Er) 600 mg PO QID PENDING SALE TO [facility] Last Admin: 12/10/21 14:07 Dose: 600 mg Guaifenesin/Codeine Phosphate (Guaifenesin-Coden 100-10mg/5ml 10 Ml Cup) 5 ml PO Q4HR PRN PRN Reason: Cough Last Admin: 12/07/21 14:19 Dose: 5 ml Lisinopril/HCTZ (Lisinopril-Hctz 10-12.5 Mg 1 Each Tab) 1 each PO BID PENDING SALE TO [facility] Last Admin: 12/10/21 08:40 Dose: 1 each Sodium Chloride (Saline 0.9%) 1,000 mls @ 100 mls/hr IV .Q10H PENDING SALE TO [facility] Last Admin: 12/10/21 14:15 Dose: Not Given Piperacillin Sod/Tazobactam (Sod 3.375 gm/ Sodium Chloride) 100 mls @ 25 mls/hr IVPB Q8HR PENDING SALE TO [facility]; Protocol Last Admin: 12/10/21 15:27 Dose: 25 mls/hr Lactobacillus Acidoph/Bulgaricus (Lactobacillus Acidoph & Bulgar 1 Each Packet) 1 each PO DAILY PENDING SALE TO [facility] Last Admin: 12/10/21 08:40 Dose: 1 each Lactulose (Lactulose 20 Gm/30 Ml Cup) 20 gm PO DAILY PRN PRN Reason: Constipation Loratadine (Loratadine 10 Mg Tab) 10 mg PO DAILY PENDING SALE TO [facility] Last Admin: 12/10/21 08:41 Dose: Not Given Methylprednisolone Sodium Succinate (Methylprednisolone Sod Succi 40 Mg/Ml 1 Ml Vial) 40 mg IV Q8HR PENDING SALE TO [facility] Last Admin: 12/10/21 15:28 Dose: 40 mg Metoprolol Tartrate (Metoprolol Tartrate 25 Mg Tab) 25 mg PO BID PENDING SALE TO [facility] Last Admin: 12/10/21 08:41 Dose: 25 mg Miscellaneous Information (Pneumonia Protocol Utilized 1 Each Misc) 1 each PO ONCE PRN PRN Reason: Per Protocol Montelukast Sodium (Montelukast 10 Mg Tab) 10 mg PO HS PENDING SALE TO [facility] Last Admin: 12/09/21 20:55 Dose: 10 mg Naloxone HCl (Naloxone 0.4 Mg/Ml 1 Ml Vial) 0.2 mg IV Q2M PRN PRN Reason: Opioid Reversal Ondansetron HCl (Ondansetron 4 Mg/2 Ml Vial) 4 mg IVP Q8HR PRN PRN Reason: Nausea And Vomiting Past medical history to include: Factor V Leyden mutation, COPD, DVT, GERD, hypertension, COPD, Pseudomonas lung infection, uses CPAP, oxygen when necessary, diverticulitis, bronchial silicone stent now removed, hemodialysis now discontinued CK D stage III, right lung solid nodule with radiation treatment. Social history: Lives alone. Smoked 1-2 packs a day for 50 years stopped in 2012. Did drink significant alcohol stopped some time ago. Retired from [employer]. Family history: Colon cancer Physical examination: VITAL SIGNS: 97.5, 63, 22, 180/82, 95% on room air GENERAL:, sitting edge of the bed, feeling better EYES: Pupils equal. Conjunctiva normal. HEENT: External appearance of nose and ears normal, oral cavity grossly normal. NECK: JVD not raised; masses not palpable. HEART: First and second heart sounds are normal; no edema. LUNGS:[ Respiratory rate increased; decreased breath sounds, decreased wheezing. ABDOMEN: Soft, nontender, liver spleen not palpable, no masses palpable. PSYCH: Alert and oriented x3; mood and affect normal. MUSCULOSKELETAL:No Clubbing/cyanosis;muscles-grossly intact. OA INVESTIGATIONS, reviewed in the clinical context: December 09: Potassium 4.8 creatinine 1.5 Sputum E. coli December 07: Pro-calcitonin 0.19 WBC 10.5 hemoglobin 11.5 platelets 231 potassium 4.7 BUN 52 creatinine 1.27 EKG tracing personally reviewed by me-normal sinus rhythm, right bundle branch block Chest x-ray film personally reviewed by [id number] nodule, right basilar infiltrate Previous labs: Creatinine 1.15 on November 20 Sputum E. coli on November 20 Assessment plan: -Acute pneumonia in a patient with Recurrent pneumonia in a patient with underlying COPD. recent cultures have been positive sputum positive for stenitophomas maltophilia, MRSA, E. coli. s received several courses of antibiotics.: This admission sputum culture positive for E. coli Slow to respond Follow with pulmonary. An infectious disease. IV Zosyn. Midline ordered. -Acute COPD exacerbation in a previous smoker: Slow to respond DuoNeb. IV Solu-Medrol decreased to 40 every 12. Perforomist. Nebulized steroids. -Hyperuricemia Allopurinol 100 mg a day -Factor V Leyden mutation -Right upper lung nodule treated with the radiation Follow with pulmonary -Essential hypertension Lopressor 25 mg twice a day -Chronic kidney disease stage II likely nephrosclerosis Follow renal function -BPH Cardura 4 mg a day -Anxiety not otherwise specified Xanax when necessary -Chronic kidney disease likely nephrosclerosis stage III Follow renal function DuoNeb. IV Zosyn. Nebulized Perforomist, Pulmicort. Mucinex. Flutter valve. Humidified oxygen. Pending midline. Decreased solid by every 12. Discussed with the patient.
[2021-12-10] MEDS: MONTELUKAST 10 MG TAB PO SCH (20:11)
[2021-12-10] MEDS: DOXAZOSIN 4 MG TAB PO SCH (20:11)
[2021-12-10] MEDS: allopurinoL 100 MG TAB PO SCH (20:12)
[2021-12-10] MEDS: ALPRAZolam 0.5 MG TAB PO PRN (20:27)
[2021-12-11] MEDS: PIPERACILLIN-TAZOBACTAM 3.375 GM in SODIUM CHLORIDE 0.9% 100 ML IVPB SCH ×4 (00:16→23:56)
[2021-12-11] MEDS: guaiFENesin 600 MG TABLET.ER PO SCH ×5 (00:16→22:32)
[2021-12-11] MEDS: SODIUM CHLORIDE 0.9% 1,000 ML IV SCH ×3 (00:20→16:59)
[2021-12-11] MEDS: IPRATROPIUM-ALBUTEROL 3 ML NEB INHALATION SCH ×4 (07:04→20:29)
[2021-12-11] MEDS: FORMOTEROL FUMARATE 20 MCG/2 ML NEBU INHALATION SCH ×2 (07:04→20:29)
[2021-12-11] MEDS: BUDESONIDE 1 MG/2 ML NEBU INHALATION SCH ×2 (07:04→20:29)
[2021-12-11] MEDS: CHOLECALCIFEROL 25 MCG (1000 IU) TABLET PO SCH (07:57)
[2021-12-11] MEDS: LORATADINE 10 MG TAB PO SCH (07:58)
[2021-12-11] MEDS: METOPROLOL TARTRATE 25 MG TAB PO SCH ×2 (07:58→22:32)
[2021-12-11] MEDS: LACTOBACILLUS ACIDOPH & BULGAR 1 EACH PACKET PO SCH (07:58)
[2021-12-11] MEDS: BENZONATATE 100 MG CAP PO SCH ×3 (07:58→22:32)
[2021-12-11] MEDS: LISINOPRIL-HCTZ 10-12.5 MG 1 EACH TAB PO SCH ×2 (07:58→22:33)
[2021-12-11] MEDS: ASPIRIN 81 MG PO SCH (07:58)
[2021-12-11] MEDS: methylPREDNISolone SOD SUCCI 40 MG/ML 1 ML VIAL IV SCH ×2 (07:59→22:33)
--- NOTE | 2021-12-11 11:15 | P.PN ---
Subjective Progress Note Date: 12/10/21 Principal diagnosis: MDRO E. coli pneumonia Patient is a 76-year male with a past medical history significant for end-stage COPD patient also have a history of recurrent pneumonias presented to hospital with an episode of pneumonia sputum has been finalized with the drug- resistant E. coli in this patient who do have a cefepime allergy. On today's evaluation that is 11/10/2021, the patient denies having any fever or any chills patient is breathing slightly comfortably the patient denies having any chest pain he did have a cough with occasional sputum no nausea no vomiting no abdominal pain or diarrhea Objective - Vital Signs Vital signs: Vital Signs Temp 97.5 F L 12/10/21 11:03 Pulse 68 12/10/21 11:14 Resp 22 12/10/21 11:03 BP 188/82 12/10/21 11:03 Pulse Ox 95 12/10/21 11:03 FiO2 Intake & Output 12/09/21 12/10/21 12/10/21 18:59 06:59 18:59 Other: Voiding Method Toilet Toilet # Voids 2 2 - Exam GENERAL DESCRIPTION elderly male lying in bed, no distress. No tachypnea or accessory muscle of respiration use. LUNGS: Unlabored breathing. Coarse breath sounds bilaterally occasional wheeze HEART: S1, S2, regular rate and rhythm. No loud murmur ABDOMEN: Soft, no tenderness , guarding or rigidity, no organomegaly EXTREMITIES: No edema of feet. - Labs CBC & Chem 7: 12/06/21 14:03 12/09/21 05:14 Labs: Microbiology - Last 24 Hours (Table) 12/06/21 14:03 Blood Culture - Preliminary Blood No Growth after 72 hours 12/06/21 14:03 Blood Culture - Preliminary Blood No Growth after 72 hours Assessment and Plan (1) Pneumonia Current Visit: Yes Status: Acute Code(s): J18.9 - PNEUMONIA, UNSPECIFIED ORGANISM SNOMED Code(s): 085225801 Plan: 1patient presented to hospital with increasing shortness of breath and cough in this patient with evidence of worsening pneumonia right lower lobe and sputum has been positive for drug-resistant E. coli likely etiology of his underlying pneumonia. 2-patient with multiple antibiotic allergies that would limit the number of antibiotics safe to use. 3Patient to continue with Zosyn in view of clinical response we will get a midline for outpatient IV antibiotic therapy Time with Patient: Less than 30
--- NOTE | 2021-12-11 11:16 | P.PN ---
Subjective Progress Note Date: 12/11/21 Principal diagnosis: MDRO E. coli pneumonia Patient is a 76-year male with a past medical history significant for end-stage COPD patient also have a history of recurrent pneumonias presented to hospital with an episode of pneumonia sputum has been finalized with the drug- resistant E. coli in this patient who do have a cefepime allergy. On today's evaluation that is 12/11/2021, the patient remains to be afebrile the patient is breathing more comfortably the patient denies having any chest pain no worsening cough or sputum production no abdominal pain and no diarrhea Objective - Vital Signs Vital signs: Vital Signs Temp 97.8 F 12/11/21 07:25 Pulse 74 12/11/21 07:25 Resp 18 12/11/21 07:25 BP 173/71 12/11/21 07:25 Pulse Ox 96 12/11/21 07:25 FiO2 Intake & Output 12/10/21 12/11/21 12/11/21 18:59 06:59 18:59 Intake Total 900 Balance 900 Intake: Intake, IV Titration 900 Amount Piperacillin-Tazobactam 3 100 .375 gm In Sodium Chloride 0.9% 100 ml @ 25 mls/hr IVPB Q8HR [facility] Rx# :[id number] Sodium Chloride 0.9% 1, 800 000 ml @ 100 mls/hr IV . Q10H [facility] Rx#:[id number] Other: Voiding Method Toilet Toilet - Exam GENERAL DESCRIPTION elderly male lying in bed, no distress. No tachypnea or accessory muscle of respiration use. LUNGS: Unlabored breathing. Coarse breath sounds bilaterally occasional wheeze HEART: S1, S2, regular rate and rhythm. No loud murmur ABDOMEN: Soft, no tenderness , guarding or rigidity, no organomegaly EXTREMITIES: No edema of feet. - Labs CBC & Chem 7: 12/06/21 14:03 12/09/21 05:14 Labs: Microbiology - Last 24 Hours (Table) 12/06/21 14:03 Blood Culture - Preliminary Blood No Growth after 96 hours 12/06/21 14:03 Blood Culture - Preliminary Blood No Growth after 96 hours Assessment and Plan (1) Pneumonia Current Visit: Yes Status: Acute Code(s): J18.9 - PNEUMONIA, UNSPECIFIED ORGANISM SNOMED Code(s): 370173453 Plan: 1patient presented to hospital with increasing shortness of breath and cough in this patient with evidence of worsening pneumonia right lower lobe and sputum has been positive for drug-resistant E. coli likely etiology of his underlying pneumonia. 2-patient with multiple antibiotic allergies that would limit the number of antibiotics safe to use. 3Patient to continue with Zosyn in view of clinical response , However we will be able to switch him over to Invanz 1 g daily x2 weeks on discharge currently waiting for midline placement and outpatient IV antibiotic arrangement Time with Patient: Less than 30
--- NOTE | 2021-12-11 12:56 | P.PN ---
Subjective Progress Note Date: 12/11/21 This is a 76-year-old male patient with a history of anxiety, factor V Leiden mutation, hypertension, chronic kidney disease, right renal mass, left lower extremity DVT, perforation the colon post colectomy with previous colostomy, tracheobronchomalacia, lung nodules, chronic obstructive pulmonary disease with an FEV1 value 55% of predicted and is maintained on Trelegy in the outpatient setting. He also has a history of a solitary nodule of the lung and the right upper lobe he did receive radiation therapy while in [place]. No biopsy was performed. No significant metabolic uptake of the nodule of the right upper lobe. He patient also has a history of multiple pulmonary infections with a previous pseudomonas aeruginosa infection back in 2019. More recently on 08/30/2021 is sputum was positive for MRSA. In September 2021 he was positive for E. coli and Stenotrophomonas maltophilia, 11/20/2021 sputum culture was positive for E. coli. He follows with Dr. Cortez in our office. He was just seen 12/02/2021 and was initiated on cefuroxime. He presented here to the emergency room yesterday with complaints of increasing shortness of breath, cough and congestion. Chest x-ray continues to show right basilar airspace opacities and a trace right pleural effusion. Some of which may be chronic in nature. Sputum culture pending. White count 10.5. Hemoglobin 11.5. Sodium 141. Potassium 4.9. BUN 45. Creatinine 1.2. Pro-calcitonin 0.19. Coronavirus by PCR not detected. Influenza screen negative. He is seen today in consultation on the regular medical floor. Awake and alert in no acute distress. Maintaining O2 saturations in the 90s on 2 L/m per nasal cannula. Afebrile. Hemodynamically stable. Reevaluated today on 12/08/21, patient is feeling better today, he remains on broad-spectrum antibiotics, patient is on Zosyn, off vancomycin, his sputum cultures are positive for E. coli, sensitive to Zosyn, resistant to multiple other antibiotics. Clinically the patient is feeling better, breathing easier, nonetheless he continues to have productive cough. WBC count was 10.5 on admission electrolytes are normal renal profile is slightly abnormal with a BUN of 48 creatinine 1.3 The patient is seen today 12/09/2021 in follow-up on the regular medical floor. He is currently sitting up at the bedside. Awake and alert in no acute distress. He is currently maintaining O2 saturation 98% on room air. His sputum culture was positive for E. coli. Currently on Zosyn. He is feeling better. Less phlegm and congestion. The cultures revealed no growth. Sodium 137. Potassium 4.8. BUN 52. Creatinine 1.5. Glucose 178. He is continued on DuoNeb inhalations, Pulmicort and Perforomist inhalations, Mucinex, Robitussin, IV Solu-Medrol, Singulair. The patient is seen today 12/10/2021 in follow-up on the regular medical floor. He is awake and alert in no acute distress. Sitting up at the bedside. He denies any worsening shortness of breath, cough or congestion. He is still dyspneic with conversation. Dyspneic on exertion. Loose productive cough. Sputum culture was positive drug resistant for E. coli. Blood cultures reveal no growth. He is currently on Zosyn. He may need a midline and outpatient IV antibiotics. ID is on the case. The patient is seen today 12/11/2021 in follow-up on the regular medical floor. Sitting up at the bedside. Awake and alert in no acute distress. Maintaining good O2 saturations in the 90s on 2 L/m per nasal cannula. He remains on Zosyn. Plan is for midline/PICC line placement today. Continued on DuoNeb inhalation s, Pulmicort and Perforomist inhalations, IV Solu-Medrol. Objective - Vital Signs Vital signs: Vital Signs Temp 97.8 F 12/11/21 07:25 Pulse 72 12/11/21 11:39 Resp 18 12/11/21 07:25 BP 173/71 12/11/21 07:25 Pulse Ox 96 12/11/21 07:25 FiO2 Intake & Output 12/10/21 12/11/21 12/11/21 18:59 06:59 18:59 Intake Total 900 Balance 900 Intake: Intake, IV Titration 900 Amount Piperacillin-Tazobactam 3 100 .375 gm In Sodium Chloride 0.9% 100 ml @ 25 mls/hr IVPB Q8HR [facility] Rx# :[id number] Sodium Chloride 0.9% 1, 800 000 ml @ 100 mls/hr IV . Q10H [facility] Rx#:[id number] Other: Voiding Method Toilet Toilet - Exam GENERAL EXAM: Alert, pleasant 76-year-old male, on room air, comfortable in no apparent distress. HEAD: Normocephalic. EYES: Normal reaction of pupils, equal size. NOSE: Clear with pink turbinates. THROAT: No erythema or exudates. NECK: No masses, no JVD. CHEST: No chest wall deformity. LUNGS: Equal air entry with crackles in the right lung base CVS: S1 and S2 normal with no audible murmur, regular rhythm. ABDOMEN: No hepatosplenomegaly, normal bowel sounds, no guarding or rigidity. SPINE: No scoliosis or deformity SKIN: No rashes CENTRAL NERVOUS SYSTEM: No focal deficits, tone is normal in all 4 extremities. EXTREMITIES: There is no peripheral edema. No clubbing, no cyanosis. Peripheral pulses are intact. - Labs CBC & Chem 7: 12/06/21 14:03 12/09/21 05:14 Labs: Microbiology - Last 24 Hours (Table) 12/06/21 14:03 Blood Culture - Preliminary Blood No Growth after 96 hours 12/06/21 14:03 Blood Culture - Preliminary Blood No Growth after 96 hours Assessment and Plan Assessment: Acute on chronic hypoxemic respiratory failure secondary to suspected right lower lobe pneumonia. Some changes of which are chronic. Sputum culture positive for drug-resistant E. coli. Pro-calcitonin's and 0.19. Currently on Zosyn. Frequent pulmonary infections and admissions, including pseudomonas aeruginosa, MRSA, E. coli, Stenotrophomonas maltophilia History of renal failure secondary to Bactrim Right upper lobe nodule being monitored in the outpatient setting. PET scan from 09/13/2021 revealed a 2.3 x 2.1 cm right upper lobe nodule. No metabolic uptake. Stable chronic consolidation/atelectasis of the right middle lobe. More prominent right basilar acute opacities including a 1.8 x 1.4 cm nodule that also has ametabolic. Did receive radiation therapy while in [place]. Chronic obstructive pulmonary disease on home oxygen Right renal mass being followed in the outpatient setting Severe tracheobronchomalacia Factor V Leiden mutation History of left lower extremity DVT Hypertension Chronic kidney disease stage II History of perforated colon with colectomy/colostomy Plan: The patient was seen and evaluated Sputum culture positive for drug-resistant E. coli Currently on Zosyn Plan is for midline/PICC line today Continue antibiotics per ID services Probable discharge in the a.m. We will continue to follow I have personally seen and examined the patient, performed the documentation and the assessment and plan as written. Number of minutes spent on the visit: 10.
--- NOTE | 2021-12-11 15:03 | CDI ---
Documentation Clarification Form Date: 12/11/2021 02:35:20 PM From: Tere Lee RN, CCDS Admit Date: 12/06/2021 03:13:00 PM Patient Name: Anival Chavez Visit Number: [id number] Discharge Date: ATTENTION: The Clinical Documentation Specialists (CDI) and [employer] Coding Staff appreciate your assistance in clarifying documentation. Please respond to the clarification below the line at the bottom and electronically sign. The CDI & [employer] Coding staff will review the response and follow-up if needed. Please note: Queries are made part of the Legal Health Record. If you have any questions, please contact the author of this message via ITS. Dr. Brodie Cervantes Conflicting documentation has been found in the medical record. As attending physician, please provide clarification. 12/08 attending progress note: chronic kidney disease likely nephrosclerosis stage II 12/09 attending progress note: chronic kidney disease stage II likely nephrosclerosis. Chronic kidney disease likely nephrosclerosis stage III History/Risk Factors: Cancer, COPD, DVT, Hypertension, Renal disease (hx of dialysis) Clinical Indicators: 76-year-olf male present with shortness of breath. He has a past history of dialysis for kidney damage. Past medical history indicates stage 2 renal disease. Progress notes has documentation of stage II and stage III renal failure. 12/06 BUN 52 CR 1.27 GFR 54 12/07 BUN 44.5 CR 1.2 GFR 60 12/08 BUN 48.4 CR 1.3 GFR 52 12/09 BUN 52 CR 1.5 GFR 43.6 Treatment: Monitor BUN, CR, Lytes, Daily per orders Please clarify which diagnosis is most appropriate: [ ] Chronic kidney disease stage II [ ] Chronic kidney disease stage III [ ] Other (please specify) [ ] Unable to determine (Template Last Revised: May 2020) Chronic kidney disease stage III MTDD
--- NOTE | 2021-12-11 16:07 | P.PN ---
Progress Note - Text Progress Note Date: 12/11/21 Chief Complaint: Cough This is a 76-year-old patient who follows with Dr. Keshawn Suarez. Chronic stable medical conditions include DVT, GERD, hypertension, uses CPAP, home oxygen 2 L as needed, factor 5 Leyden, bronchial silicone stent now removed, prior history of hemodialysis, lung cancer diagnosed and treated in [place]. Colostomy. On April 12 2021, in [place] - bowel perforation -had 4 inches of large bowel removed. - colostomy. During that hospitalization he also pneumonia. Then in July again had a lung infection. - port placed / 2 weeks of antibiotics. October 2021 admitted to [place] in treated with ceftazidime. Following discharge diagnosed with E. coli on November 20 and treated with antibiotics by Dr. Cortez. Sputum color improved feeling better. Now for last 3 days is having increasing sputum production take yellow-green in color. More congested in the chest. Short of breath. No fever and chills. Some decrease in appetite. Tired rundown. Admitted for the same. Possible pneumonia. December 07: Congested cough. Shortness of breath. IV Zosyn. Being followed by pulmonary. Discussed with the patient. May benefit from bronchial lavage. Will discuss with pulmonary. December 08: Sitting at edge of bed. Less congested cough. Some shortness breath. On IV Zosyn. Using his flutter valve and incentive spirometry. Oral intake fair. December 09: Sitting up. Congested cough with some shortness of breath. IV Zosyn. Oral intake fair. Seen by Dr. Perez from pulmonary. ID consulted for outpatient IV antibiotics. Discussed with patient. Came back to speak to the patient and the daughter again. Blood pressure uncontrolled. Add lisinopril hydrochlorothiazide 12/18.5 one tablet twice daily December 10: Breathing stable. Some congested cough. Decrease sputum. Midline ordered. On IV Zosyn. Blood pressure medications adjusted yesterday. Awaiting manual blood pressure reading. Oral intake better. December 11: Saw the patient this morning. Pending PICC line. Some cough. No sputum. Oral intake fair. Active Medications Acetaminophen (Acetaminophen Tab 325 Mg Tab) 650 mg PO Q6HR PRN PRN Reason: Mild Pain or Fever > 100.5 Albuterol Sulfate (Albuterol Hfa Inhaler) 2 puff INHALATION RT-QID PRN PRN Reason: Shortness Of Breath Albuterol/Ipratropium (Ipratropium-Albuterol 3 Ml Neb) 3 ml INHALATION RT-QID [facility] Last Admin: 12/11/21 15:46 Dose: 3 ml Albuterol/Ipratropium (Ipratropium-Albuterol 3 Ml Neb) 3 ml INHALATION RT-Q4H PRN PRN Reason: shortness of breath Allopurinol (Allopurinol 100 Mg Tab) 100 mg PO [facility] Last Admin: 12/10/21 20:12 Dose: 100 mg Alprazolam (Alprazolam 0.5 Mg Tab) 0.5 mg PO TID PRN PRN Reason: Anxiety Last Admin: 12/10/21 20:27 Dose: 0.5 mg Aspirin (Aspirin 81 Mg) 81 mg PO DAILY [facility] Last Admin: 12/11/21 07:58 Dose: 81 mg Benzonatate (Benzonatate 100 Mg Cap) 200 mg PO TID [facility] Last Admin: 12/11/21 07:58 Dose: 200 mg Budesonide (Budesonide 1 Mg/2 Ml Nebu) 1 mg INHALATION RT-BID [facility] Last Admin: 12/11/21 07:04 Dose: 1 mg Calcium Carbonate/Glycine (Calcium Carbonate 500 Mg Chewable) 1,000 mg PO Q4HR PRN PRN Reason: Dyspepsia Cholecalciferol (Cholecalciferol 25 Mcg (1000 Iu) Tablet) 25 mcg PO DAILY [facility] Last Admin: 12/11/21 07:57 Dose: 25 mcg Doxazosin Mesylate (Doxazosin 4 Mg Tab) 4 mg PO [facility] Last Admin: 12/10/21 20:11 Dose: 4 mg Formoterol Fumarate (Formoterol Fumarate 20 Mcg/2 Ml Nebu) 20 mcg INHALATION RT-BID [facility] Last Admin: 12/11/21 07:04 Dose: 20 mcg Guaifenesin (Guaifenesin 600 Mg Tablet.Er) 600 mg PO QID [facility] Last Admin: 12/11/21 12:05 Dose: 600 mg Guaifenesin/Codeine Phosphate (Guaifenesin-Coden 100-10mg/5ml 10 Ml Cup) 5 ml PO Q4HR PRN PRN Reason: Cough Last Admin: 12/07/21 14:19 Dose: 5 ml Lisinopril/HCTZ (Lisinopril-Hctz 10-12.5 Mg 1 Each Tab) 1 each PO BID [facility] Last Admin: 12/11/21 07:58 Dose: 1 each Sodium Chloride (Saline 0.9%) 1,000 mls @ 100 mls/hr IV .Q10H [facility] Last Admin: 12/11/21 09:54 Dose: Not Given Piperacillin Sod/Tazobactam (Sod 3.375 gm/ Sodium Chloride) 100 mls @ 25 mls/hr IVPB Q8HR [facility]; Protocol Last Admin: 12/11/21 07:58 Dose: 25 mls/hr Lactobacillus Acidoph/Bulgaricus (Lactobacillus Acidoph & Bulgar 1 Each Packet) 1 each PO DAILY [facility] Last Admin: 12/11/21 07:58 Dose: 1 each Lactulose (Lactulose 20 Gm/30 Ml Cup) 20 gm PO DAILY PRN PRN Reason: Constipation Loratadine (Loratadine 10 Mg Tab) 10 mg PO DAILY [facility] Last Admin: 12/11/21 07:58 Dose: 10 mg Methylprednisolone Sodium Succinate (Methylprednisolone Sod Succi 40 Mg/Ml 1 Ml Vial) 40 mg IV Q12H [facility] Last Admin: 12/11/21 07:59 Dose: 40 mg Metoprolol Tartrate (Metoprolol Tartrate 25 Mg Tab) 25 mg PO BID [facility] Last Admin: 12/11/21 07:58 Dose: 25 mg Miscellaneous Information (Pneumonia Protocol Utilized 1 Each Misc) 1 each PO ONCE PRN PRN Reason: Per Protocol Montelukast Sodium (Montelukast 10 Mg Tab) 10 mg PO HS [facility] Last Admin: 12/10/21 20:11 Dose: 10 mg Naloxone HCl (Naloxone 0.4 Mg/Ml 1 Ml Vial) 0.2 mg IV Q2M PRN PRN Reason: Opioid Reversal Ondansetron HCl (Ondansetron 4 Mg/2 Ml Vial) 4 mg IVP Q8HR PRN PRN Reason: Nausea And Vomiting Past medical history to include: Factor V Leyden mutation, COPD, DVT, GERD, hypertension, COPD, Pseudomonas lung infection, uses CPAP, oxygen when necessary, diverticulitis, bronchial silicone stent now removed, hemodialysis now discontinued CK D stage III, right lung solid nodule with radiation treatment. Social history: Lives alone. Smoked 1-2 packs a day for 50 years stopped in 2012. Did drink significant alcohol stopped some time ago. Retired from [employer]. Family history: Colon cancer Physical examination: VITAL SIGNS: 98.4, 66, 18, 1 75 x 70, 95% room air GENERAL:, sitting edge of the bed, comfortable EYES: Pupils equal. Conjunctiva normal. HEENT: External appearance of nose and ears normal, oral cavity grossly normal. NECK: JVD not raised; masses not palpable. HEART: First and second heart sounds are normal; no edema. LUNGS:[ Respiratory rate increased; decreased breath sounds, ABDOMEN: Soft, nontender, liver spleen not palpable, no masses palpable. PSYCH: Alert and oriented x3; mood and affect normal. MUSCULOSKELETAL:No Clubbing/cyanosis;muscles-grossly intact. OA INVESTIGATIONS, reviewed in the clinical context: December 09: Potassium 4.8 creatinine 1.5 Sputum E. coli December 07: Pro-calcitonin 0.19 WBC 10.5 hemoglobin 11.5 platelets 231 potassium 4.7 BUN 52 creatinine 1.27 EKG tracing personally reviewed by me-normal sinus rhythm, right bundle branch block Chest x-ray film personally reviewed by [id number] nodule, right basilar infiltrate Previous labs: Creatinine 1.15 on November 20 Sputum E. coli on November 20 Assessment plan: -Acute pneumonia in a patient with Recurrent pneumonia in a patient with underlying COPD. recent cultures have been positive sputum positive for stenitophomas maltophilia, MRSA, E. coli. s received several courses of antibiotics.: This admission sputum culture positive for E. coli Follow with pulmonary. An infectious disease. IV Zosyn. Midline pending -Acute COPD exacerbation in a previous smoker: Slow to respond DuoNeb. Changed to oral prednisone. Perforomist. Nebulized steroids. -Hyperuricemia Allopurinol 100 mg a day -Factor V Leyden mutation -Right upper lung nodule treated with the radiation Follow with pulmonary -Essential hypertension Lopressor 25 mg twice a day -Chronic kidney disease stage II likely nephrosclerosis Follow renal function -BPH Cardura 4 mg a day -Anxiety not otherwise specified Xanax when necessary -Chronic kidney disease likely nephrosclerosis stage III Follow renal function DuoNeb. IV Zosyn. Nebulized Perforomist, Pulmicort. Mucinex. Flutter valve. Humidified oxygen. Pending midline. Change IV Solu-Medrol to oral prednisone tomorrow. Follow with ID.
[2021-12-11 20:05] VITALS: RESP 16; TEMP 98.1
[2021-12-11] MEDS: allopurinoL 100 MG TAB PO SCH (22:32)
[2021-12-11] MEDS: MONTELUKAST 10 MG TAB PO SCH (22:32)
[2021-12-11] MEDS: DOXAZOSIN 4 MG TAB PO SCH (22:33)
[2021-12-11] MEDS: ALPRAZolam 0.5 MG TAB PO PRN (22:36)
[2021-12-12] MEDS: FORMOTEROL FUMARATE 20 MCG/2 ML NEBU INHALATION SCH (07:15)
[2021-12-12] MEDS: BUDESONIDE 1 MG/2 ML NEBU INHALATION SCH (07:15)
[2021-12-12] MEDS: IPRATROPIUM-ALBUTEROL 3 ML NEB INHALATION SCH ×3 (07:15→14:48)
[2021-12-12] MEDS: PIPERACILLIN-TAZOBACTAM 3.375 GM in SODIUM CHLORIDE 0.9% 100 ML IVPB SCH (08:00)
[2021-12-12] MEDS: LORATADINE 10 MG TAB PO SCH (08:01)
[2021-12-12] MEDS: CHOLECALCIFEROL 25 MCG (1000 IU) TABLET PO SCH (08:01)
[2021-12-12] MEDS: LACTOBACILLUS ACIDOPH & BULGAR 1 EACH PACKET PO SCH (08:01)
[2021-12-12] MEDS: guaiFENesin 600 MG TABLET.ER PO SCH (08:01)
[2021-12-12] MEDS: LISINOPRIL-HCTZ 10-12.5 MG 1 EACH TAB PO SCH (08:01)
[2021-12-12] MEDS: METOPROLOL TARTRATE 25 MG TAB PO SCH (08:01)
[2021-12-12] MEDS: ASPIRIN 81 MG PO SCH (08:01)
[2021-12-12] MEDS: BENZONATATE 100 MG CAP PO SCH (08:01)
[2021-12-12 08:09] VITALS: BP 153/71
--- NOTE | 2021-12-12 08:15 | P.PN ---
Subjective Progress Note Date: 12/12/21 This is a 76-year-old male patient with a history of anxiety, factor V Leiden mutation, hypertension, chronic kidney disease, right renal mass, left lower extremity DVT, perforation the colon post colectomy with previous colostomy, tracheobronchomalacia, lung nodules, chronic obstructive pulmonary disease with an FEV1 value 55% of predicted and is maintained on Trelegy in the outpatient setting. He also has a history of a solitary nodule of the lung and the right upper lobe he did receive radiation therapy while in [place]. No biopsy was performed. No significant metabolic uptake of the nodule of the right upper lobe. He patient also has a history of multiple pulmonary infections with a previous pseudomonas aeruginosa infection back in 2019. More recently on 08/30/2021 is sputum was positive for MRSA. In September 2021 he was positive for E. coli and Stenotrophomonas maltophilia, 11/20/2021 sputum culture was positive for E. coli. He follows with Dr. Cortez in our office. He was just seen 12/02/2021 and was initiated on cefuroxime. He presented here to the emergency room yesterday with complaints of increasing shortness of breath, cough and congestion. Chest x-ray continues to show right basilar airspace opacities and a trace right pleural effusion. Some of which may be chronic in nature. Sputum culture pending. White count 10.5. Hemoglobin 11.5. Sodium 141. Potassium 4.9. BUN 45. Creatinine 1.2. Pro-calcitonin 0.19. Coronavirus by PCR not detected. Influenza screen negative. He is seen today in consultation on the regular medical floor. Awake and alert in no acute distress. Maintaining O2 saturations in the 90s on 2 L/m per nasal cannula. Afebrile. Hemodynamically stable. Reevaluated today on 12/08/21, patient is feeling better today, he remains on broad-spectrum antibiotics, patient is on Zosyn, off vancomycin, his sputum cultures are positive for E. coli, sensitive to Zosyn, resistant to multiple other antibiotics. Clinically the patient is feeling better, breathing easier, nonetheless he continues to have productive cough. WBC count was 10.5 on admission electrolytes are normal renal profile is slightly abnormal with a BUN of 48 creatinine 1.3 The patient is seen today 12/09/2021 in follow-up on the regular medical floor. He is currently sitting up at the bedside. Awake and alert in no acute distress. He is currently maintaining O2 saturation 98% on room air. His sputum culture was positive for E. coli. Currently on Zosyn. He is feeling better. Less phlegm and congestion. The cultures revealed no growth. Sodium 137. Potassium 4.8. BUN 52. Creatinine 1.5. Glucose 178. He is continued on DuoNeb inhalations, Pulmicort and Perforomist inhalations, Mucinex, Robitussin, IV Solu-Medrol, Singulair. The patient is seen today 12/10/2021 in follow-up on the regular medical floor. He is awake and alert in no acute distress. Sitting up at the bedside. He denies any worsening shortness of breath, cough or congestion. He is still dyspneic with conversation. Dyspneic on exertion. Loose productive cough. Sputum culture was positive drug resistant for E. coli. Blood cultures reveal no growth. He is currently on Zosyn. He may need a midline and outpatient IV antibiotics. ID is on the case. The patient is seen today 12/11/2021 in follow-up on the regular medical floor. Sitting up at the bedside. Awake and alert in no acute distress. Maintaining good O2 saturations in the 90s on 2 L/m per nasal cannula. He remains on Zosyn. Plan is for midline/PICC line placement today. Continued on DuoNeb inhalation s, Pulmicort and Perforomist inhalations, IV Solu-Medrol. Patient is seen today 12/12/2021 in follow-up on the regular medical floor. He is currently sitting up in bed. Awake and alert in no acute distress. Maintaining good O2 saturations in the 90s on 2 L/m per nasal cannula. He is afebrile. Hemodynamically stable. Sputum cultures positive for E. coli. He is currently on Zosyn. The plan is to discharge home on Invanz. Midline in place. Continued on DuoNeb inhalations, Pulmicort and Perforomist inhalations, prednisone. Objective - Vital Signs Vital signs: Vital Signs Temp 98.1 F 12/12/21 05:00 Pulse 71 12/12/21 07:56 Resp 16 12/12/21 05:00 BP 153/71 12/12/21 07:56 Pulse Ox 98 12/12/21 05:00 FiO2 Intake & Output 12/11/21 12/12/21 12/12/21 18:59 06:59 18:59 Intake Total 220 590 Balance 220 590 Intake: Intake, IV Titration 220 Amount Piperacillin-Tazobactam 3 100 .375 gm In Sodium Chloride 0.9% 100 ml @ 25 mls/hr IVPB Q8HR [facility] Rx# :[id number] Sodium Chloride 0.9% 1, 120 000 ml @ 10 mls/hr IV . Q24H [facility] Rx#:[id number] Oral 590 Other: Voiding Method Toilet # Voids 2 - Exam GENERAL EXAM: Alert, 76-year-old male, on 2 L nasal cannula, comfortable in no apparent distress. HEAD: Normocephalic. EYES: Normal reaction of pupils, equal size. NOSE: Clear with pink turbinates. THROAT: No erythema or exudates. NECK: No masses, no JVD. CHEST: No chest wall deformity. LUNGS: Equal air entry with crackles in the right lung base CVS: S1 and S2 normal with no audible murmur, regular rhythm. ABDOMEN: No hepatosplenomegaly, normal bowel sounds, no guarding or rigidity. SPINE: No scoliosis or deformity SKIN: No rashes CENTRAL NERVOUS SYSTEM: No focal deficits, tone is normal in all 4 extremities. EXTREMITIES: There is no peripheral edema. No clubbing, no cyanosis. Peripheral pulses are intact. - Labs CBC & Chem 7: 12/06/21 14:03 12/09/21 05:14 Labs: Microbiology - Last 24 Hours (Table) 12/06/21 14:03 Blood Culture - Preliminary Blood No Growth after 120 hours 12/06/21 14:03 Blood Culture - Preliminary Blood No Growth after 120 hours Assessment and Plan Assessment: Acute on chronic hypoxemic respiratory failure secondary to suspected right lower lobe pneumonia. Some changes of which are chronic. Sputum culture positive for drug-resistant E. coli. Pro-calcitonin's and 0.19. Currently on Zosyn. Frequent pulmonary infections and admissions, including pseudomonas aeruginosa, MRSA, E. coli, Stenotrophomonas maltophilia History of renal failure secondary to Bactrim Right upper lobe nodule being monitored in the outpatient setting. PET scan from 09/13/2021 revealed a 2.3 x 2.1 cm right upper lobe nodule. No metabolic uptake. Stable chronic consolidation/atelectasis of the right middle lobe. More prominent right basilar acute opacities including a 1.8 x 1.4 cm nodule that also has ametabolic. Did receive radiation therapy while in [place]. Chronic obstructive pulmonary disease on home oxygen Right renal mass being followed in the outpatient setting Severe tracheobronchomalacia Factor V Leiden mutation History of left lower extremity DVT Hypertension Chronic kidney disease stage II History of perforated colon with colectomy/colostomy Plan: The patient was seen and evaluated Sputum culture positive for drug-resistant E. coli Currently on Zosyn Midline in place Cleared for discharge from pulmonary standpoint Plan is for continued on IV Invanz per ID services Follow-up in the office with Dr. Cortez in 1 week I have personally seen and examined the patient, performed the documentation and the assessment and plan as written. Number of minutes spent on the visit: 10.
[2021-12-12] MEDS ORDERED: predniSONE 20 MG TAB PO SCH (09:00)
[2021-12-12 10:24] VITALS: BMI 27.9
[2021-12-12 10:27] VITALS: PULSE 62
[2021-12-12] MEDS ORDERED: ERTAPENEM 1 GM in SODIUM CHLORIDE 0.9% 50 ML IVPB STA (10:43)
[2021-12-12 10:57] LABS: African American GFR (CKD) 61 (>60 ml/min/1.73 sqM); Anion Gap 7 mmol/L; Blood Urea Nitrogen 53 mg/dL (9-20); Calcium 8.8 mg/dL (8.4-10.2); Carbon Dioxide 28 mmol/L (22-30); Chloride 102 mmol/L (98-107); Glucose 154 mg/dL (74-99); Non-African American GFR(CKD) 53 (>60 ml/min/1.73 sqM); Potassium 4.9 mmol/L (3.5-5.1); Sodium 137 mmol/L (137-145)
[2021-12-12 12:02] LABS: HCT 36.7 % (39.0-53.0); HGB 11.5 gm/dL (13.0-17.5); Hypochromasia Slight; MCH 30.5 pg (25.0-35.0); MCHC 31.2 g/dL (31.0-37.0); MCV 97.5 fL (80.0-100.0); Mean Platelet Volume 8.9; Platelet Count 180 k/uL (150-450); RBC 3.76 m/uL (4.30-5.90); RDW 14.6 % (11.5-15.5); WBC 9.3 k/uL (3.8-10.6)
--- NOTE | 2021-12-12 17:37 | P.DS ---
Providers Date of admission: 12/06/21 15:13 Expected date of discharge: 12/12/21 Attending physician: Brodie Cervantes Consults: 12/06/21 15:13 Consult Physician Routine Consulting Provider: Ramona Cortez Consult Reason/Comments: pneumonia Do you want consulting provider notified?: Yes 12/09/21 10:57 Consult Physician Routine Consulting Provider: Leandro Castillo Consult Reason/Comments: Resistant e coli sputum Do you want consulting provider notified?: Yes Primary care physician: Keshawn Suarez MD Hospital Course: Chief Complaint: Cough This is a 76-year-old patient who follows with Dr. Keshawn Saurez. Chronic stable medical conditions include DVT, GERD, hypertension, uses CPAP, home oxygen 2 L as needed, factor 5 Leyden, bronchial silicone stent now removed, prior history of hemodialysis, lung cancer diagnosed and treated in [place]. Colostomy. On April 12 2021, in [place] - bowel perforation -had 4 inches of large bowel removed. - colostomy. During that hospitalization he also pneumonia. Then in July again had a lung infection. - port placed / 2 weeks of antibiotics. October 2021 admitted to [facility] in treated with ceftazidime. Following discharge diagnosed with E. coli on November 20 and treated with antibiotics by Dr. Cortez. Sputum color improved feeling better. Now for last 3 days is having increasing sputum production take yellow-green in color. More congested in the chest. Short of breath. No fever and chills. Some decrease in appetite. Tired rundown. Admitted for the same. Possible pneumonia. December 07: Congested cough. Shortness of breath. IV Zosyn. Being followed by pulmonary. Discussed with the patient. May benefit from bronchial lavage. Will discuss with pulmonary. December 08: Sitting at edge of bed. Less congested cough. Some shortness breath. On IV Zosyn. Using his flutter valve and incentive spirometry. Oral intake fair. December 09: Sitting up. Congested cough with some shortness of breath. IV Zosyn. Oral intake fair. Seen by Dr. Perez from pulmonary. ID consulted for outpatient IV antibiotics. Discussed with patient. Came back to speak to the patient and the daughter again. Blood pressure uncontrolled. Add lisinopril hydrochlorothiazide 12/18.5 one tablet twice daily December 10: Breathing stable. Some congested cough. Decrease sputum. Midline ordered. On IV Zosyn. Blood pressure medications adjusted yesterday. Awaiting manual blood pressure reading. Oral intake better. December 11: Saw the patient this morning. Pending PICC line. Some cough. No sputum. Oral intake fair. December 12: Discussed with ID. To be discharged today. Cleared by pulmonary. Prednisone taper. Discussed with patient. Discussed with telephonic nurse case manager. IV Invanz daily for 2 weeks. Discussion and discharge planning more than 35 minutes Past medical history to include: Factor V Leyden mutation, COPD, DVT, GERD, hypertension, COPD, Pseudomonas lung infection, uses CPAP, oxygen when necessary, diverticulitis, bronchial silicone stent now removed, hemodialysis now discontinued CK D stage III, right lung solid nodule with radiation treatment. Social history: Lives alone. Smoked 1-2 packs a day for 50 years stopped in 2012. Did drink significant alcohol stopped some time ago. Retired from [employer]. Family history: Colon cancer Physical examination: VITAL SIGNS: 98.1, 65, 16, 120/62, 98% on 2 L GENERAL:, sitting edge of the bed, comfortable EYES: Pupils equal. Conjunctiva normal. HEENT: External appearance of nose and ears normal, oral cavity grossly normal. NECK: JVD not raised; masses not palpable. HEART: First and second heart sounds are normal; no edema. LUNGS:[ Respiratory rate increased; decreased breath sounds, ABDOMEN: Soft, nontender, liver spleen not palpable, no masses palpable. PSYCH: Alert and oriented x3; mood and affect normal. MUSCULOSKELETAL:No Clubbing/cyanosis;muscles-grossly intact. OA INVESTIGATIONS, reviewed in the clinical context: December 12: White count 9.3 hemoglobin 10.5 potassium 4.9 BUN 53 creatinine 1.29 Sputum E. coli December 07: Pro-calcitonin 0.19 WBC 10.5 hemoglobin 11.5 platelets 231 potassium 4.7 BUN 52 creatinine 1.27 EKG tracing personally reviewed by me-normal sinus rhythm, right bundle branch block Chest x-ray film personally reviewed by [id number] nodule, right basilar infiltrate Previous labs: Creatinine 1.15 on November 20 Sputum E. coli on November 20 Assessment plan: -Acute pneumonia in a patient with Recurrent pneumonia in a patient with underlying COPD. recent cultures have been positive sputum positive for stenitophomas maltophilia, MRSA, E. coli. s received several courses of antibiotics.: This admission sputum culture positive for E. coli Follow with pulmonary. An infectious disease. Midline place. IV Invanz for 2 weeks -Acute COPD exacerbation in a previous smoker: Better DuoNeb. Prednisone taper. Perforomist. Nebulized steroids. -Hyperuricemia Allopurinol 100 mg a day -Factor V Leyden mutation -Right upper lung nodule treated with the radiation Follow with pulmonary -Essential hypertension Lopressor 25 mg twice a day -Chronic kidney disease stage II likely nephrosclerosis Follow renal function -BPH Cardura 4 mg a day -Anxiety not otherwise specified Xanax when necessary -Chronic kidney disease likely nephrosclerosis stage III Follow renal function Disposition: Home Plan - Discharge Summary Discharge Rx Participant: No New Discharge Prescriptions: New Ipratropium-Albuterol Nebulize [Duoneb 0.5 mg-3 mg/3 ml Soln] 3 ml INHALATION RT-QID #120 each Lisinopril-Hctz 10-12.5 mg [Zestoretic 10-12.5] 1 each PO BID #60 tab predniSONE 10 mg PO DAILY #30 tab Continue Montelukast Sodium [Singulair] 10 mg PO DAILY Metoprolol Tartrate [Lopressor] 25 mg PO BID Albuterol Nebulized [Ventolin Nebulized] 2.5 mg INHALATION RT-TID PRN PRN Reason: Shortness Of Breath Aspirin [Adult Low Dose Aspirin EC] 81 mg PO DAILY Cetirizine HCl [Zyrtec] 10 mg PO DAILY L.acidoph,Paracasei, B.lactis [Probiotic] 1 cap PO DAILY Sodium Chloride 0.9% Nebuliz [Saline 0.9% For Nebulization] 3 ml INHALATION RT-QID Cholecalciferol [Vitamin D3 (25 Mcg = 1000 Iu)] 1,000 unit PO DAILY Doxazosin [Cardura] 4 mg PO DAILY ALPRAZolam [Xanax] 0.5 mg PO TID PRN PRN Reason: Anxiety guaiFENesin 400 mg PO BID allopurinoL [Zyloprim] 100 mg PO DAILY Albuterol Sulfate [Ventolin HFA] 2 puff INHALATION RT-QID PRN PRN Reason: Shortness Of Breath Budesonide 0.25 mg INHALATION RT-BID Fluticasone/Umeclidin/Vilanter [Trelegy Ellipta 100-62.5-25] 1 puff INHALATION RT-DAILY Acetaminophen Tab [Tylenol] 650 mg PO Q6HR PRN tab PRN Reason: Mild Pain Or Fever > 100.5 Discontinued cefUROXime axetiL [Ceftin] 500 mg PO BID Discharge Medication List Montelukast Sodium [Singulair] 10 mg PO DAILY 01/24/14 [History] Albuterol Nebulized [Ventolin Nebulized] 2.5 mg INHALATION RT-TID PRN 07/25/16 [History] Aspirin [Adult Low Dose Aspirin EC] 81 mg PO DAILY 07/25/16 [History] Metoprolol Tartrate [Lopressor] 25 mg PO BID 07/25/16 [History] Cetirizine HCl [Zyrtec] 10 mg PO DAILY 08/19/16 [History] ALPRAZolam [Xanax] 0.5 mg PO TID PRN 09/01/18 [History] Cholecalciferol [Vitamin D3 (25 Mcg = 1000 Iu)] 1,000 unit PO DAILY 09/01/18 [History] Doxazosin [Cardura] 4 mg PO DAILY 09/01/18 [History] L.acidoph,Paracasei, B.lactis [Probiotic] 1 cap PO DAILY 09/01/18 [History] Sodium Chloride 0.9% Nebuliz [Saline 0.9% For Nebulization] 3 ml INHALATION RT- QID 09/01/18 [History] guaiFENesin 400 mg PO BID 09/01/18 [History] allopurinoL [Zyloprim] 100 mg PO DAILY 11/21/19 [History] Albuterol Sulfate [Ventolin HFA] 2 puff INHALATION RT-QID PRN 10/21/21 [History] Budesonide 0.25 mg INHALATION RT-BID 10/21/21 [History] Fluticasone/Umeclidin/Vilanter [Trelegy Ellipta 100-62.5-25] 1 puff INHALATION RT-DAILY 10/21/21 [History] Acetaminophen Tab [Tylenol] 650 mg PO Q6HR PRN tab 10/25/21 [Rx] Ipratropium-Albuterol Nebulize [Duoneb 0.5 mg-3 mg/3 ml Soln] 3 ml INHALATION RT-QID #120 each 12/12/21 [Rx] Lisinopril-Hctz 10-12.5 mg [Zestoretic 10-12.5] 1 each PO BID #60 tab 12/12/21 [Rx] predniSONE 10 mg PO DAILY #30 tab 12/12/21 [Rx] Follow up Appointment(s)/Referral(s): Keshawn Suarez MD [Primary Care Provider] - 12/18/21 1:30 pm [facility] [NON-STAFF] - 1 Week Leandro Castillo MD [STAFF PHYSICIAN] - 12/24/21 3:15 pm Ramona Cortez MD [STAFF PHYSICIAN] - 12/27/21 10:30 am [facility] Visiting Nurse, [NON-STAFF] - 1 Week Patient Instructions/Handouts: Pneumonia (DC) Activity/Diet/Wound Care/Special Instructions: antibiotics per ID Discharge Disposition: HOME SELF-CARE
== END 2021-12-12 15:18 | disposition home or self-care (01) | DRG 177 ==
LOC: EC 12:56 → 5NMEDONC 15:13
PROVIDERS: ADMIT Hospitalist; ATTEND Hospitalist
PROC: 05HA33Z Insertion of Infusion Device into Left Brachial Vein, Percutaneous Approach (ICD-10-PCS; principal; 2021-12-11 10:00)
DX: J15.5 Pneumonia due to Escherichia coli (principal); J96.21 Acute and chronic respiratory failure with hypoxia; D68.51 Activated protein C resistance; J44.0 Chronic obstructive pulmonary disease with (acute) lower respiratory infection; J44.1 Chronic obstructive pulmonary disease with (acute) exacerbation; Z16.24 Resistance to multiple antibiotics; J98.11 Atelectasis; I12.9 Hypertensive chronic kidney disease with stage 1 through stage 4 chronic kidney disease, or unspecified chronic kidney disease; N18.30 Chronic kidney disease, stage 3 unspecified; J39.8 Other specified diseases of upper respiratory tract; Z99.81 Dependence on supplemental oxygen; F41.9 Anxiety disorder, unspecified; N28.89 Other specified disorders of kidney and ureter; E79.0 Hyperuricemia without signs of inflammatory arthritis and tophaceous disease; K21.9 Gastro-esophageal reflux disease without esophagitis; I45.10 Unspecified right bundle-branch block; N40.0 Benign prostatic hyperplasia without lower urinary tract symptoms; Z20.822 Contact with and (suspected) exposure to COVID-19; Z93.3 Colostomy status; Z92.3 Personal history of irradiation; Z87.01 Personal history of pneumonia (recurrent); Z87.891 Personal history of nicotine dependence; Z85.118 Personal history of other malignant neoplasm of bronchus and lung; Z79.51 Long term (current) use of inhaled steroids; Z79.82 Long term (current) use of aspirin; Z86.718 Personal history of other venous thrombosis and embolism; Z86.19 Personal history of other infectious and parasitic diseases; Z86.14 Personal history of Methicillin resistant Staphylococcus aureus infection; Z91.030 Bee allergy status; Z88.1 Allergy status to other antibiotic agents; Z90.49 Acquired absence of other specified parts of digestive tract; Z79.899 Other long term (current) drug therapy; Z91.048 Other nonmedicinal substance allergy status; Z91.041 Radiographic dye allergy status
CPT/HCPCS: 36410; 36415; 71046; 76937; 80048; 80053; 83605; 84145; 85025; 85027; 85610; 85730; 87040; 87070; 87077; 87186; 87205; 87502; 87635; 93005; 94640; 94760; 96365; 96367; 96368; 96375; 99285

== ENCOUNTER → 2021-12-30 | Outpatient (CLI) | payer MEDICARE, BC ==
--- NOTE | 2021-12-30 11:27 | CT ---
EXAMINATION TYPE: CT chest wo con DATE OF EXAM: 12/30/2021 COMPARISON: PET/CT 09/13/2021 HISTORY: Pulmonary nodule CT DLP: 959.0 mGycm High-resolution noncontrast CT of the chest was performed with the patient in the prone and supine po sitions. Lung and mediastinal window settings are submitted. Mild/moderate underlying emphysematous changes noted. Mildly Spiculated right upper lobe pulmonary nodule measuring 2.1 cm is noted which demonstrated amet abolic activity on PET/CT. Additional 7.2 mm nodule right lower lobe superior segment. 5.4 cm area of right infrahilar right middle lobe atelectasis. Nodule right lower lobe medially measuring 1.2 cm. A dditional posterior sulcus nodule right lower lobe measuring 8.3 mm. 6 mm right upper lobe pulmonary nodule image 153. Bronchial wall thickening with mild bronchiectasis greatest at the right lower lobe. Mild right lower lobe pleural thickening seen. Subpleural fibrosis mild in degree left lower lobe laterally. No adenopathy greater than 1 cm. There is mild cardiomegaly. Ectasia of the thoracic aorta. Aneurysma l dilatation ascending thoracic aorta 4.1 cm. Calcified hilar mediastinal lymph nodes may reflect rem ote granulomatous process. Hypoattenuating lesions within the liver likely reflect cysts. IMPRESSION: 1. Pulmonary nodules as described are nonspecific however could reflect noncalcified granulomas given ametabolic activity on the recent PET/CT and calcified hilar lymph nodes. Low-grade neoplasm difficu lt to exclude however. Continued follow-up is advised. 2. Bronchiectasis with bronchial wall thickening greatest at the right lower lobe. Small area of subp leural fibrosis left lower lobe.
== END | disposition home or self-care (01) ==
LOC: RADCTMAIN 10:25
PROVIDERS: ATTEND Internal Medicine Critical Care Medicine
DX: J84.10 Pulmonary fibrosis, unspecified (principal); J47.9 Bronchiectasis, uncomplicated; R91.8 Other nonspecific abnormal finding of lung field
CPT/HCPCS: 71250

== ENCOUNTER 2022-01-25 14:23 | Emergency (ER) | payer MEDICARE, BC ==
[2022-01-25 14:43] VITALS: RESP 18; TEMP 98
--- NOTE | 2022-01-25 15:54 | ED ---
General Adult HPI - General Chief complaint: Abdominal Pain Stated complaint: bowel blockage Time Seen by Provider: 01/25/22 15:54 Source: patient Mode of arrival: wheelchair Limitations: no limitations - History of Present Illness Initial comments: Patient presents to the ED complaining of having generalized abdominal pain and watery colostomy output for the past 3-4 days or so. Patient also states that he has had an umbilical hernia since his colostomy surgery, and he states that his hernia has been less protuberant than usual over the past 3-4 days. Patient denies trauma or injury, fever or chills, headache, focal neuro deficit, chest pain or pressure, dyspnea, dizziness, nausea or vomiting, bloody colostomy output, dysuria or urinary symptoms, decreased urine output, back pain, or any other symptoms or complaints. Patient declines any pain medication at this time. - Related Data Home Medications Medication Instructions Recorded Confirmed Montelukast Sodium [Singulair] 10 mg PO DAILY 01/24/14 12/06/21 Albuterol Nebulized [Ventolin 2.5 mg INHALATION RT-TID PRN 07/25/16 12/06/21 Nebulized] Aspirin [Adult Low Dose Aspirin EC] 81 mg PO DAILY 07/25/16 12/06/21 Metoprolol Tartrate [Lopressor] 25 mg PO BID 07/25/16 12/06/21 Cetirizine HCl [Zyrtec] 10 mg PO DAILY 08/19/16 12/06/21 ALPRAZolam [Xanax] 0.5 mg PO TID PRN 09/01/18 12/06/21 Cholecalciferol [Vitamin D3 (25 1,000 unit PO DAILY 09/01/18 12/06/21 Mcg = 1000 Iu)] Doxazosin [Cardura] 4 mg PO DAILY 09/01/18 12/06/21 L.acidoph,Paracasei, B.lactis 1 cap PO DAILY 09/01/18 12/06/21 [Probiotic] Sodium Chloride 0.9% Nebuliz 3 ml INHALATION RT-QID 09/01/18 12/06/21 [Saline 0.9% For Nebulization] guaiFENesin 400 mg PO BID 09/01/18 12/06/21 allopurinoL [Zyloprim] 100 mg PO DAILY 11/21/19 12/06/21 Albuterol Sulfate [Ventolin HFA] 2 puff INHALATION RT-QID PRN 10/21/21 12/06/21 Budesonide 0.25 mg INHALATION RT-BID 10/21/21 12/06/21 Fluticasone/Umeclidin/Vilanter 1 puff INHALATION RT-DAILY 10/21/21 12/06/21 [Trelegy Ellipta 100-62.5-25] Previous Rx's Medication Instructions Recorded Acetaminophen Tab [Tylenol] 650 mg PO Q6HR PRN tab 10/25/21 Ipratropium-Albuterol Nebulize 3 ml INHALATION RT-QID #120 each 12/12/21 [Duoneb 0.5 mg-3 mg/3 ml Soln] Lisinopril-Hctz 10-12.5 mg 1 each PO BID #60 tab 12/12/21 [Zestoretic 10-12.5] predniSONE 10 mg PO DAILY #30 tab 12/12/21 Allergies Allergy/AdvReac Type Severity Reaction Status Date / Time cefepime Allergy SHUT DOWN Verified 01/25/22 14:43 KIDNEYS ether Allergy Anaphylaxis Verified 01/25/22 14:43 Iodinated Contrast Media Allergy PAST Verified 01/25/22 14:43 [Iodinated Contrast Media - HISTORY OF Oral and] KIDNEY PROBLEMS venom-honey bee Allergy Anaphylaxis Verified 01/25/22 14:43 sulfamethoxazole AdvReac states Verified 01/25/22 14:43 [From Bactrim] effects kidneys trimethoprim [From Bactrim] AdvReac states Verified 01/25/22 14:43 effects kidneys Review of Systems ROS Statement: Those systems with pertinent positive or pertinent negative responses have been documented in the HPI. ROS Other: All systems not noted in ROS Statement are negative. Past Medical History Past Medical History: Blood Disorder, Cancer, COPD, Deep Vein Thrombosis (DVT), GERD/Reflux, Hypertension, Renal Disease Additional Past Medical History / Comment(s): hx of pseudomonus lung infection, uses CPAP not for sleep apnea, O2 prn 2l prn, diverticulits, Factor V Leiden, hx of bronchial silicone stent now removed, PICC line in past now removed, past hx dialysis for kidney damage, none currently, Stage 3 renal disease, Lung cancer - diagnosed and treated down in [place], Colostomy, hernia repair History of Any Multi-Drug Resistant Organisms: MRSA Date of last positivie culture/infection: 08/30/21 MDRO Source:: Sputum Past Surgical History: Hernia Repair, Tonsillectomy Additional Past Surgical History / Comment(s): bronchoscopy, bronchial silicone stent, now removed, fatty tumor removed from chest area, COLONOSCOPY, alexandre cataract, hernia repair Past Anesthesia/Blood Transfusion Reactions: Previous Problems w/ Anesthesia Additional Past Anesthesia/Blood Transfusion Reaction / Comment(s): "as infant turned black and blue from ETHER". FACTOR V LEIDEN Past Psychological History: Anxiety Smoking Status: Former smoker Past Alcohol Use History: None Reported Past Drug Use History: None Reported - Past Family History Father Family Medical History: Cancer Additional Family Medical History / Comment(s): colon cancer Mother Family Medical History: Cancer Additional Family Medical History / Comment(s): leukemia General Exam Limitations: no limitations General appearance: alert, in no apparent distress Head exam: Present: atraumatic, normocephalic Eye exam: Present: normal appearance, EOMI ENT exam: Present: mucous membranes moist Neck exam: Present: other (Trachea is in midline) Respiratory exam: Present: normal lung sounds bilaterally. Absent: respiratory distress, wheezes, rales, rhonchi, stridor Cardiovascular Exam: Present: regular rate, normal rhythm, normal heart sounds, other (Normal radial pulses bilaterally) GI/Abdominal exam: Present: soft, hyperactive bowel sounds, other (Mild generalized abdominal tenderness; a soft and nontender periumbilical hernia is noted; + colostomy with bag). Absent: distended, guarding, rebound Extremities exam: Absent: tenderness, pedal edema Back exam: Absent: CVA tenderness (R), CVA tenderness (L) Neurological exam: Present: alert, oriented X3. Absent: motor sensory deficit Psychiatric exam: Present: normal affect, normal mood Skin exam: Present: warm, dry, intact, normal color Course Vital Signs 01/25/22 01/25/22 14:34 17:47 Temperature 98.0 F Pulse Rate 90 78 Respiratory 18 18 Rate Blood Pressure 133/74 137/78 O2 Sat by Pulse 96 99 Oximetry - Reevaluation(s) Reevaluation #1: 01/25/22 18:55 Patient denies development of any new symptoms while in the ED. Patient continues to have a soft and nonsurgical abdominal exam. Patient is aware of his test results CT findings, and he feels comfortable being discharged home at this time. Patient was counseled about abdominal pain and diarrhea. Patient was clearly explained return and follow-up instructions. Patient was instructed to follow up closely with his primary care provider, as well as his documentation manager. Patient feels comfortable with this plan. Medical Decision Making - Medical Decision Making Patient is afebrile and without leukocytosis. Patient's labs are fairly unremarkable. Patient's CT abdomen/pelvis is negative for acute abnormality in the abdomen and pelvis. Patient has a soft and nonsurgical abdominal exam. I have explained to the patient that I am uncertain of the exact etiology of his abdominal pain and watery colostomy output, but I do not suspect an emergent medical or surgical condition. Patient reports that he was recently being treated with IV Zosyn for a pulmonary infection, which likely explains his lung findings on CT. A C. diff study was ordered, but ED RN states that there is not enough specimen available in the patient's colostomy bag at this time to send for a C. diff study. Will discharge patient home at this time with instructions to follow up closely with his primary care provider, as well as his documentation manager. Patient feels comfortable with this plan. - Lab Data Result diagrams: 01/25/22 16:39 01/25/22 16:39 Lab Results 01/25/22 01/25/22 01/25/22 Range/Units 16:39 16:39 16:39 WBC 10.6 (3.8-10.6) k/uL RBC 3.77 L (4.30-5.90) m/uL Hgb 11.7 L (13.0-17.5) gm/dL Hct 35.5 L (39.0-53.0) % MCV 94.4 (80.0-100.0) fL MCH 31.1 (25.0-35.0) pg MCHC 33.0 (31.0-37.0) g/dL RDW 14.6 (11.5-15.5) % Plt Count 268 (150-450) k/uL MPV 8.9 Neutrophils % 77 % Lymphocytes % 12 % Monocytes % 6 % Eosinophils % 3 % Basophils % 0 % Neutrophils # 8.1 H (1.3-7.7) k/uL Lymphocytes # 1.3 (1.0-4.8) k/uL Monocytes # 0.6 (0-1.0) k/uL Eosinophils # 0.3 (0-0.7) k/uL Basophils # 0.0 (0-0.2) k/uL Hypochromasia Slight Sodium 137 (137-145) mmol/L Potassium 5.3 H (3.5-5.1) mmol/L Chloride 104 (98-107) mmol/L Carbon Dioxide 23 (22-30) mmol/L Anion Gap 10 mmol/L BUN 29 H (9-20) mg/dL Creatinine 1.18 (0.66-1.25) mg/dL Est GFR (CKD-EPI)AfAm 68 (>60 ml/min/1.73 sqM) Est GFR (CKD-EPI)NonAf 59 (>60 ml/min/1.73 sqM) Glucose 102 H (74-99) mg/dL Plasma Lactic Acid Fadi (0.7-2.0) mmol/L Calcium 9.4 (8.4-10.2) mg/dL Total Bilirubin 0.8 (0.2-1.3) mg/dL AST 34 (17-59) U/L ALT 17 (4-49) U/L Alkaline Phosphatase 43 (38-126) U/L Total Protein 6.7 (6.3-8.2) g/dL Albumin 4.0 (3.5-5.0) g/dL Lipase 60 (23-300) U/L Urine Color Yellow Urine Appearance Clear (Clear) Urine pH 5.5 (5.0-8.0) Ur Specific Monroe 1.015 (1.001-1.035) Urine Protein 1+ H (Negative) Urine Glucose (UA) Negative (Negative) Urine Ketones 1+ H (Negative) Urine Blood Negative (Negative) Urine Nitrite Negative (Negative) Urine Bilirubin Negative (Negative) Urine Urobilinogen <2.0 (<2.0) mg/dL Ur Leukocyte Esterase Moderate H (Negative) Urine RBC 2 (0-5) /hpf Urine WBC 11 H (0-5) /hpf Ur Squamous Epith Cells <1 (0-4) /hpf Hyaline Casts 3 H (0-2) /lpf Urine Mucus Rare H (None) /hpf 01/25/ Range/Units 16:39 WBC (3.8-10.6) k/uL RBC (4.30-5.90) m/uL Hgb (13.0-17.5) gm/dL Hct (39.0-53.0) % MCV (80.0-100.0) fL MCH (25.0-35.0) pg MCHC (31.0-37.0) g/dL RDW (11.5-15.5) % Plt Count (150-450) k/uL MPV Neutrophils % % Lymphocytes % % Monocytes % % Eosinophils % % Basophils % % Neutrophils # (1.3-7.7) k/uL Lymphocytes # (1.0-4.8) k/uL Monocytes # (0-1.0) k/uL Eosinophils # (0-0.7) k/uL Basophils # (0-0.2) k/uL Hypochromasia Sodium (137-145) mmol/L Potassium (3.5-5.1) mmol/L Chloride (98-107) mmol/L Carbon Dioxide (22-30) mmol/L Anion Gap mmol/L BUN (9-20) mg/dL Creatinine (0.66-1.25) mg/dL Est GFR (CKD-EPI)AfAm (>60 ml/min/1.73 sqM) Est GFR (CKD-EPI)NonAf (>60 ml/min/1.73 sqM) Glucose (74-99) mg/dL Plasma Lactic Acid Fadi 1.3 (0.7-2.0) mmol/L Calcium (8.4-10.2) mg/dL Total Bilirubin (0.2-1.3) mg/dL AST (17-59) U/L ALT (4-49) U/L Alkaline Phosphatase (38-126) U/L Total Protein (6.3-8.2) g/dL Albumin (3.5-5.0) g/dL Lipase (23-300) U/L Urine Color Urine Appearance (Clear) Urine pH (5.0-8.0) Ur Specific Monroe (1.001-1.035) Urine Protein (Negative) Urine Glucose (UA) (Negative) Urine Ketones (Negative) Urine Blood (Negative) Urine Nitrite (Negative) Urine Bilirubin (Negative) Urine Urobilinogen (<2.0) mg/dL Ur Leukocyte Esterase (Negative) Urine RBC (0-5) /hpf Urine WBC (0-5) /hpf Ur Squamous Epith Cells (0-4) /hpf Hyaline Casts (0-2) /lpf Urine Mucus (None) /hpf - Radiology Data Noncontrast CT abdomen/pelvis: Right pleural effusion and right lower lobe patchy infiltrates appear slightly worse than on computed tomography scan of 09/13/2021 consistent with progression of disease in this patient with a history of lung cancer. Colonic diverticulosis without diverticulitis. No acute abnormality within the abdomen and pelvis. Disposition Clinical Impression: Abdominal pain, Diarrhea Disposition: HOME SELF-CARE Condition: Stable Instructions (If sedation given, give patient instructions): Abdominal Pain (ED), Acute Diarrhea (ED) Additional Instructions: Return to the ER immediately should you develop new or worsening pain, bloody colostomy output, a fever, shortness of breath, feeling dizzy or faint, vomiting, or new or worsening symptoms. Follow up closely with your primary care provider, as well as your documentation manager. Is patient prescribed a controlled substance at d/c from ED?: No Referrals: Keshawn Suarez MD [Primary Care Provider] - 1-2 days Ramona Cortez MD [Family Provider] - 1-2 days Time of Disposition: 18:59
[2022-01-25] MEDS ORDERED: SODIUM CHLORIDE 0.9% 500 ML 500 ML IV ONE (16:09)
[2022-01-25 17:02] LABS: Basophils % (A) 0 %; Eosinophils # (A) 0.3 k/uL (0-0.7); Eosinophils % (A) 3 %; HCT 35.5 % (39.0-53.0); HGB 11.7 gm/dL (13.0-17.5); Hypochromasia Slight; Lymphocytes # (A) 1.3 k/uL (1.0-4.8); Lymphocytes % (A) 12 %; MCH 31.1 pg (25.0-35.0); MCV 94.4 fL (80.0-100.0); Mean Platelet Volume 8.9; Monocytes # (A) 0.6 k/uL (0-1.0); Monocytes % (A) 6 %; Neutrophils # (A) 8.1 k/uL (1.3-7.7); Neutrophils % (A) 77 %; Platelet Count 268 k/uL (150-450); RBC 3.77 m/uL (4.30-5.90); RDW 14.6 % (11.5-15.5); WBC 10.6 k/uL (3.8-10.6)
[2022-01-25 17:08] LABS: Appearance,Urine Clear (Clear); Bilirubin,Urine Negative (Negative); Blood,Urine Negative (Negative); Color,Urine Yellow; Glucose,Urine (UA) Negative (Negative); Hyaline Casts,Urine 3 /lpf (0-2); Ketones,Urine 1+ (Negative); Leukocyte Esterase,Urine Moderate (Negative); Mucus,Urine Rare /hpf; Nitrite,Urine Negative (Negative); PH, Urine 5.5 (5.0-8.0); Protein,Urine 1+ (Negative); RBC,Urine 2 /hpf (0-5); Specific Gravity,Urine 1.015 (1.001-1.035); Squamous Epithelial Cell,Urine <1 /hpf (0-4); Urobilinogen,Urine <2.0 mg/dL (<2.0); WBC,Urine 11 /hpf (0-5)
[2022-01-25 17:19] LABS: Calcium 9.4 mg/dL (8.4-10.2); Total Bilirubin 0.8 mg/dL (0.2-1.3); Total Protein 6.7 g/dL (6.3-8.2)
[2022-01-25 17:21] LABS: Potassium 5.3 mmol/L (3.5-5.1)
--- NOTE | 2022-01-25 17:21 | CT ---
EXAMINATION TYPE: CT abdomen pelvis wo con DATE OF EXAM: 01/25/2022 COMPARISON: 09/13/2021 HISTORY: abdominal pain, diarrhea CT DLP: 590 mGycm Automated exposure control for dose reduction was used. Images obtained from the diaphragm to the floor the pelvis without contrast. There is right pleural effusion. There is patchy consolidation in the right lower lobe. There are mul tiple hypodense foci in the liver that measure up to 4 cm. These have fluid density and are likely mu ltiple cysts. Unchanged. Spleen is intact. There is no evidence of pancreatic mass. The stomach is in tact the bile ducts are not dilated. Gallbladder is intact. There is no adrenal mass. Kidneys of normal size. No hydronephrosis. There is 2 cm cyst anterior righ t kidney. No retroperitoneal adenopathy. There is left side loop colostomy noted. There are multiple colonic diverticula. No diverticulitis. No evidence of a pelvic mass. Urinary bladder is almost empty . There is prostate calcification. No inguinal hernia there is a periumbilical hernia that is broad-b ased and measures 4 cm. No evidence of a bowel obstruction. Appendix not seen. There are surgical clips at the right colon. The lumbar vertebrae have normal alignment. There is degenerative disc space narrowing throughout the lumbar spine. No compression fracture. There is multilevel vacuum disc. The bony pelvis is intact. IMPRESSION: Right pleural effusion and right lower lobe patchy infiltrates appear slightly worse than on CT scan of 09/13/2021 and consistent with progression of disease in this patient with a history of lung cancer. Colonic diverticulosis without diverticulitis. No acute abnormality within the abdomen pelvis.
[2022-01-25 17:48] VITALS: BP 137/78; PULSE 78
== END 2022-01-25 19:38 | disposition home or self-care (01) ==
LOC: EC 14:23
DX: R10.33 Periumbilical pain (principal); R19.7 Diarrhea, unspecified; J44.9 Chronic obstructive pulmonary disease, unspecified; I82.409 Acute embolism and thrombosis of unspecified deep veins of unspecified lower extremity; K21.9 Gastro-esophageal reflux disease without esophagitis; I12.9 Hypertensive chronic kidney disease with stage 1 through stage 4 chronic kidney disease, or unspecified chronic kidney disease; N18.30 Chronic kidney disease, stage 3 unspecified; F41.9 Anxiety disorder, unspecified; Z87.891 Personal history of nicotine dependence; Z79.899 Other long term (current) drug therapy; Z79.51 Long term (current) use of inhaled steroids; Z79.82 Long term (current) use of aspirin; Z88.8 Allergy status to other drugs, medicaments and biological substances; Z88.2 Allergy status to sulfonamides; Z91.041 Radiographic dye allergy status; Z91.030 Bee allergy status
CPT/HCPCS: 36415; 74176; 80053; 81001; 83605; 83690; 85025; 87086; 96360; 96361; 99284

== ENCOUNTER 2022-01-29 15:09 | Inpatient (IN) | payer MEDICARE, BC ==
[2022-01-29] MEDS ORDERED: IPRATROPIUM-ALBUTEROL 3 ML NEB INHALATION STA (16:29)
[2022-01-29] MEDS ORDERED: methylPREDNISolone SOD SUCCI 125 MG/2 ML VIAL IV STA (16:29)
[2022-01-29] MEDS ORDERED: MEROPENEM 2 GM in SODIUM CHLORIDE 0.9% 100 ML IVPB ONE (16:45)
[2022-01-29 17:18] LABS: Basophils # (A) 0.1 k/uL (0-0.2); Basophils % (A) 1 %; Eosinophils # (A) 0.6 k/uL (0-0.7); Eosinophils % (A) 6 %; HCT 35.3 % (39.0-53.0); HGB 11.5 gm/dL (13.0-17.5); Hypochromasia Slight; Lymphocytes # (A) 1.7 k/uL (1.0-4.8); Lymphocytes % (A) 17 %; MCH 31.2 pg (25.0-35.0); MCHC 32.8 g/dL (31.0-37.0); MCV 95.3 fL (80.0-100.0); Mean Platelet Volume 8.6; Monocytes # (A) 0.4 k/uL (0-1.0); Monocytes % (A) 4 %; Neutrophils # (A) 6.9 k/uL (1.3-7.7); Neutrophils % (A) 70 %; Platelet Count 310 k/uL (150-450); RDW 14.7 % (11.5-15.5); WBC 9.9 k/uL (3.8-10.6)
[2022-01-29 17:29] LABS: INR 0.9 (<1.2); Partial Thromboplastin Time 24.4 sec (22.0-30.0); Prothrombin Time 10.3 sec (9.0-12.0)
--- NOTE | 2022-01-29 17:38 | XR ---
EXAMINATION TYPE: XR chest 2V DATE OF EXAM: 01/29/2022 COMPARISON: 12/27/2021 HISTORY: Difficulty breathing TECHNIQUE: 2 views FINDINGS: Heart is normal. There is some blunting of the right costophrenic angle with infiltrate rig ht lung base. There is right pleural effusion. Left lung is fairly clear. No heart failure. There are chest leads. IMPRESSION: Right lower lobe infiltrate and right pleural effusion are increased compared to old exam . No heart failure
[2022-01-29 17:39] LABS: Calcium 9.7 mg/dL (8.4-10.2); Magnesium 1.8 mg/dL (1.6-2.3); Potassium 4.6 mmol/L (3.5-5.1); Total Bilirubin 0.4 mg/dL (0.2-1.3); Total Protein 6.7 g/dL (6.3-8.2)
[2022-01-29] MEDS ORDERED: NALOXONE 0.4 MG/ML 1 ML VIAL IV PRN (17:53)
[2022-01-29] MEDS ORDERED: IPRATROPIUM-ALBUTEROL 3 ML NEB INHALATION PRN (18:32)
[2022-01-29] MEDS ORDERED: ACETAMINOPHEN TAB 325 MG TAB PO PRN (19:12)
[2022-01-29] MEDS ORDERED: LACTULOSE 20 GM/30 ML CUP PO PRN (19:15)
[2022-01-29] MEDS ORDERED: CALCIUM CARBONATE 500 MG CHEWABLE PO PRN (19:15)
[2022-01-29] MEDS ORDERED: ONDANSETRON 4 MG/2 ML VIAL IVP PRN (19:15)
--- NOTE | 2022-01-29 19:26 | P.HPIM ---
History of Present Illness H&P Date: 01/29/22 Chief Complaint: Congested cough This is a 76-year-old patient who follows with Dr. Keshawn Suarez. Chronic stable medical conditions include DVT, GERD, hypertension, uses CPAP, home oxygen 2 L , factor 5 Leyden, bronchial silicone stent now removed, prior history of hemodialysis, lung cancer diagnosed and treated in [place]. Colostomy. On April 12 2021, in [place] - bowel perforation -had 4 inches of large bowel removed. - colostomy. During that hospitalization he also pneumonia. Then in July again had a lung infection. - port placed / 2 weeks of antibiotics. October 2021 admitted to [facility] in treated with ceftazidime. Following discharge diagnosed with E. coli on November 20 and treated with antibiotics by Dr. Cortez. Patient discharged from the hospital on December 12 with drug- resistant E. coli with 2 weeks of IV Invanz. A weak following the patient started happening this very symptoms again. Congested cough. Tired. More short of breath. More limited exercise tolerance. No fever no chills. Fresh sputum samples were called. Came back positive for multidrug resistance Pseudomonas aeruginosa, sensitive to imipenem. Appetite is fair. Slightly loose stools. No abdominal pain. No fever no chills. Review of systems: GEN.: Tired EYES: None HEENT: None NECK: None RESPIRATORY: As above CARDIOVASCULAR: None GASTROINTESTINAL: As above GENITOURINARY: None MUSCULOSKELETAL: joint pain LYMPHATICS: None HEMATOLOGICAL: None PSYCHIATRY: None NEUROLOGICAL: None Past medical history to include: Factor V Leyden mutation, COPD, DVT, GERD, hypertension, COPD, Pseudomonas lung infection, uses CPAP, 2 L home oxygen when necessary, diverticulitis, bronchial silicone stent now removed, hemodialysis now discontinued CK D stage III, right lung solid nodule with radiation treatment. Social history: Lives alone. Smoked 1-2 packs a day for 50 years stopped in 2012. Did drink significant alcohol stopped some time ago. Retired from [employer]. Family history: Colon cancer Physical examination: VITAL SIGNS: 98.1, 92, 22, 155/70, 82% on 2 L GENERAL: Reclining in bed BMI 27.5 congested cough EYES: Pupils equal. Conjunctiva normal. HEENT: External appearance of nose and ears normal, oral cavity grossly normal. NECK: JVD not raised; masses not palpable. HEART: First and second heart sounds are normal; no edema. LUNGS:[ Respiratory rate increased; decreased breath sounds, some wheezing. ABDOMEN: Soft, nontender, liver spleen not palpable, no masses palpable. PSYCH: Alert and oriented x3; mood and affect normal. MUSCULOSKELETAL:No Clubbing/cyanosis;muscles-grossly intact. OA NEUROLOGICAL: Cranial nerves grossly intact; no facial asymmetry, power and sensation grossly intact. LYMPHATICS: No lymph nodes palpable in the axilla and neck INVESTIGATIONS, reviewed in the clinical context: White count 9.9 hemoglobin 11.5 platelets 310 potassium 4.6 BUN 37 creatinine 1.08 COVID 19/influenza type A/diabetes: Not detected Chest x-ray film personally reviewed by me-right lower lobe infiltrate with some confusion Previous labs: Sputum culture [January 23]: Pseudomonas aeruginosa Computed tomography scan chest abdomen pelvis without contrast: [January 25]: Right pleural effusion with right lower lobe patchy infiltrate. Worse September 13. Colonic diverticulosis. Assessment plan: -Acute right basal pneumonia in a patient with Recurrent pneumonia in a patient with underlying COPD. recent cultures have been positive sputum positive for stenitophomas maltophilia, MRSA, E. coli. And now on January 23 positive for pseudomonas aeruginosa. Start IV meropenem. Consult ID and pulmonary -Acute COPD exacerbation in a previous smoker: DuoNeb. IV Solu-Medrol. Perforomist. Nebulized steroids. -Chronic hypoxic respiratory failure from COPD Home oxygen 2 L -Hyperuricemia Allopurinol 100 mg a day -Factor V Leyden mutation -Right upper lung nodule treated with the radiation Follow with pulmonary -Essential hypertension Lopressor 25 mg twice a day -BPH Cardura 4 mg a day -Anxiety not otherwise specified Xanax when necessary -Chronic kidney disease likely nephrosclerosis stage III Follow renal function IV meropenem. Bronchodilators. IV Solu-Medrol. Resume home medications. Subcu Lovenox. Discussed with patient. Oxygen supplementation. Past Medical History Past Medical History: Blood Disorder, Cancer, COPD, Deep Vein Thrombosis (DVT), GERD/Reflux, Hypertension, Pneumonia, Renal Disease Additional Past Medical History / Comment(s): hx of pseudomonus lung infection, uses CPAP not for sleep apnea, O2 prn 2l prn, diverticulits, Factor V Leiden, hx of bronchial silicone stent now removed, PICC line in past now removed, past hx dialysis for kidney damage, none currently, Stage 3 renal disease, Lung cancer - diagnosed and treated down in [place], Colostomy, hernia repair History of Any Multi-Drug Resistant Organisms: MRSA Date of last positivie culture/infection: 08/30/21 MDRO Source:: Sputum Past Surgical History: Hernia Repair, Tonsillectomy Additional Past Surgical History / Comment(s): bronchoscopy, bronchial silicone stent, now removed, fatty tumor removed from chest area, COLONOSCOPY, alexandre cataract, hernia repair Past Anesthesia/Blood Transfusion Reactions: Previous Problems w/ Anesthesia Additional Past Anesthesia/Blood Transfusion Reaction / Comment(s): "as infant turned black and blue from ETHER". FACTOR V LEIDEN Past Psychological History: Anxiety Smoking Status: Former smoker Past Alcohol Use History: None Reported Past Drug Use History: None Reported - Past Family History Father Family Medical History: Cancer Additional Family Medical History / Comment(s): colon cancer Mother Family Medical History: Cancer Additional Family Medical History / Comment(s): leukemia Medications and Allergies Home Medications Medication Instructions Recorded Confirmed Type Montelukast Sodium [Singulair] 10 mg PO DAILY 01/24/14 01/29/22 History Albuterol Nebulized [Ventolin 2.5 mg INHALATION RT-TID PRN 07/25/16 01/29/22 History Nebulized] Metoprolol Tartrate [Lopressor] 25 mg PO BID 07/25/16 01/29/22 History Cetirizine HCl [Zyrtec] 10 mg PO DAILY 08/19/16 01/29/22 History ALPRAZolam [Xanax] 0.5 mg PO TID PRN 09/01/18 01/29/22 History Doxazosin [Cardura] 4 mg PO DAILY 09/01/18 01/29/22 History L.acidoph,Paracasei, B.lactis 1 cap PO DAILY 09/01/18 01/29/22 History [Probiotic] Sodium Chloride 0.9% Nebuliz 3 ml INHALATION RT-QID 09/01/18 01/29/22 History [Saline 0.9% For Nebulization] guaiFENesin 400 mg PO BID 09/01/18 01/29/22 History allopurinoL [Zyloprim] 100 mg PO DAILY 11/21/19 01/29/22 History Albuterol Sulfate [Ventolin HFA] 2 puff INHALATION RT-QID PRN 10/21/21 01/29/22 History Budesonide 0.25 mg INHALATION RT-BID 10/21/21 01/29/22 History Fluticasone/Umeclidin/Vilanter 1 puff INHALATION RT-DAILY 10/21/21 01/29/22 History [Trelegy Ellipta 100-62.5-25] Acetaminophen Tab [Tylenol] 650 mg PO Q6HR PRN tab 10/25/21 01/29/22 Rx Ascorbic Acid [Vitamin C] 1,000 mg PO DAILY 01/29/22 01/29/22 History Aspirin 81 mg PO DAILY 01/29/22 01/29/22 History Azithromycin [Zithromax] 250 mg PO DIRECTED 01/29/22 01/29/22 History Cholecalciferol [Vitamin D3 (25 50 mcg PO DAILY 01/29/22 01/29/22 History Mcg = 1000 Iu)] Ipratropium-Albuterol Nebulize 3 ml INHALATION RT-BID 01/29/22 01/29/22 History [Duoneb 0.5 mg-3 mg/3 ml Soln] Lisinopril-Hctz 10-12.5 mg 0.5 tab PO DAILY 01/29/22 01/29/22 History [Zestoretic 10-12.5] Magnesium Oxide [Mag-Ox] 400 mg PO HS 01/29/22 01/29/22 History Pantoprazole Sodium [Protonix] 20 mg PO DAILY 01/29/22 01/29/22 History Allergies Allergy/AdvReac Type Severity Reaction Status Date / Time cefepime Allergy SHUT DOWN Verified 01/29/22 17:51 KIDNEYS ether Allergy Anaphylaxis Verified 01/29/22 17:51 Iodinated Contrast Media Allergy PAST Verified 01/29/22 17:51 [Iodinated Contrast Media - HISTORY OF Oral and] KIDNEY PROBLEMS venom-honey bee Allergy Anaphylaxis Verified 01/29/22 17:51 sulfamethoxazole AdvReac states Verified 01/29/22 17:51 [From Bactrim] effects kidneys trimethoprim [From Bactrim] AdvReac states Verified 01/29/22 17:51 effects kidneys Physical Exam Vitals: Vital Signs Temp Pulse Resp BP Pulse Ox 01/29/22 18:28 75 18 141/70 01/29/22 18:12 77 01/29/22 18:03 74 01/29/22 15:33 98.1 F 92 22 155/70 92 L Intake and Output 01/29/22 01/29/22 01/29/22 06:59 14:59 22:59 Other: Weight 74.843 kg Results CBC & Chem 7: 01/29/22 16:45 01/29/22 16:45 Labs: Abnormal Lab Results - Last 24 Hours (Table) 01/29/22 01/29/22 Range/Units 16:45 16:45 RBC 3.70 L (4.30-5.90) m/uL Hgb 11.5 L (13.0-17.5) gm/dL Hct 35.3 L (39.0-53.0) % BUN 37 H (9-20) mg/dL Creatinine 1.28 H (0.66-1.25) mg/dL Glucose 109 H (74-99) mg/dL
[2022-01-29] MEDS ORDERED: IPRATROPIUM-ALBUTEROL 3 ML NEB INHALATION SCH (20:00)
[2022-01-29] MEDS ORDERED: BUDESONIDE 0.25 MG/2 ML NEBU INHALATION SCH (20:00)
[2022-01-29] MEDS ORDERED: SODIUM CHLORIDE 0.9% NEBULIZ 3 ML INHALATION SCH (20:00)
[2022-01-29] MEDS: IPRATROPIUM-ALBUTEROL 3 ML NEB INHALATION SCH (20:13)
[2022-01-29] MEDS: guaiFENesin 600 MG TABLET.ER PO SCH (20:58)
[2022-01-29] MEDS: MAGNESIUM OXIDE 400 MG TAB PO SCH (20:58)
[2022-01-29] MEDS: METOPROLOL TARTRATE 25 MG TAB PO SCH (20:58)
[2022-01-29] MEDS ORDERED: HEPARIN SODIUM,PORCINE/PF 5,000 UNIT/0.5 ML SYRINGE SQ SCH (21:00)
[2022-01-29] MEDS: ALPRAZolam 0.5 MG TAB PO PRN (21:05)
--- NOTE | 2022-01-29 22:00 | ED ---
General Adult HPI - General Chief complaint: Shortness of Breath Stated complaint: pneumonia Time Seen by Provider: 01/29/22 16:00 Source: patient, RN notes reviewed, old records reviewed Mode of arrival: ambulatory Limitations: no limitations - History of Present Illness Initial comments: Patient is a 76-year-old male who presents emergency department after being sent in with unknown sputum cultures with multidrug resistant Pseudomonas. Patient completed a course of IV antibiotics at home the midline last week. Sputum cultures obtained on the of this month group multidrug resistant Pseudomonas. He presents emergency department after being told to come back in for admission for IV antibiotics. Midline has been pulled. He does endorse m ild productive cough and shortness of breath. Does have a history of COPD as well. Is on when necessary oxygen at home. Denies any chest pain, abdominal pain, nausea, vomiting. Denies any fevers. Presents for admission for IV antibiotics. - Related Data Home Medications Medication Instructions Recorded Confirmed Montelukast Sodium [Singulair] 10 mg PO DAILY 01/24/14 01/29/22 Albuterol Nebulized [Ventolin 2.5 mg INHALATION RT-TID PRN 07/25/16 01/29/22 Nebulized] Metoprolol Tartrate [Lopressor] 25 mg PO BID 07/25/16 01/29/22 Cetirizine HCl [Zyrtec] 10 mg PO DAILY 08/19/16 01/29/22 ALPRAZolam [Xanax] 0.5 mg PO TID PRN 09/01/18 01/29/22 Doxazosin [Cardura] 4 mg PO DAILY 09/01/18 01/29/22 L.acidoph,Paracasei, B.lactis 1 cap PO DAILY 09/01/18 01/29/22 [Probiotic] Sodium Chloride 0.9% Nebuliz 3 ml INHALATION RT-QID 09/01/18 01/29/22 [Saline 0.9% For Nebulization] guaiFENesin 400 mg PO BID 09/01/18 01/29/22 allopurinoL [Zyloprim] 100 mg PO DAILY 11/21/19 01/29/22 Albuterol Sulfate [Ventolin HFA] 2 puff INHALATION RT-QID PRN 10/21/21 01/29/22 Budesonide 0.25 mg INHALATION RT-BID 10/21/21 01/29/22 Fluticasone/Umeclidin/Vilanter 1 puff INHALATION RT-DAILY 10/21/21 01/29/22 [Aria Lynnta 100-62.5-25] Ascorbic Acid [Vitamin C] 1,000 mg PO DAILY 01/29/22 01/29/22 Aspirin 81 mg PO DAILY 01/29/22 01/29/22 Azithromycin [Zithromax] 250 mg PO DIRECTED 01/29/22 01/29/22 Cholecalciferol [Vitamin D3 (25 50 mcg PO DAILY 01/29/22 01/29/22 Mcg = 1000 Iu)] Ipratropium-Albuterol Nebulize 3 ml INHALATION RT-BID 01/29/22 01/29/22 [Duoneb 0.5 mg-3 mg/3 ml Soln] Lisinopril-Hctz 10-12.5 mg 0.5 tab PO DAILY 01/29/22 01/29/22 [Zestoretic 10-12.5] Magnesium Oxide [Mag-Ox] 400 mg PO HS 01/29/22 01/29/22 Pantoprazole Sodium [Protonix] 20 mg PO DAILY 01/29/22 01/29/22 Previous Rx's Medication Instructions Recorded Acetaminophen Tab [Tylenol] 650 mg PO Q6HR PRN tab 10/25/21 Allergies Allergy/AdvReac Type Severity Reaction Status Date / Time cefepime Allergy SHUT DOWN Verified 01/29/22 17:51 KIDNEYS ether Allergy Anaphylaxis Verified 01/29/22 17:51 Iodinated Contrast Media Allergy PAST Verified 01/29/22 17:51 [Iodinated Contrast Media - HISTORY OF Oral and] KIDNEY PROBLEMS venom-honey bee Allergy Anaphylaxis Verified 01/29/22 17:51 sulfamethoxazole AdvReac states Verified 01/29/22 17:51 [From Bactrim] effects kidneys trimethoprim [From Bactrim] AdvReac states Verified 01/29/22 17:51 effects kidneys Review of Systems ROS Statement: Those systems with pertinent positive or pertinent negative responses have been documented in the HPI. Review of Systems: CONST: Denies fever EYES: Denies blurry vision ENT: Denies nasal congestion C/V: Denies Chest pain RESP: Endorses cough GI: Denies abdominal pain : Denies dysuria SKIN: Denies rash. MSK: Denies joint pain. NEURO: Denies headache ROS Other: All systems not noted in ROS Statement are negative. Past Medical History Past Medical History: Blood Disorder, Cancer, COPD, Deep Vein Thrombosis (DVT), GERD/Reflux, Hypertension, Pneumonia, Renal Disease Additional Past Medical History / Comment(s): hx of pseudomonus lung infection, uses CPAP not for sleep apnea, O2 prn 2l prn, diverticulits, Factor V Leiden, hx of bronchial silicone stent now removed, PICC line in past now removed, past hx dialysis for kidney damage, none currently, Stage 3 renal disease, Lung cancer - diagnosed and treated down in [place], Colostomy, hernia repair History of Any Multi-Drug Resistant Organisms: MRSA Date of last positivie culture/infection: 08/30/21 MDRO Source:: Sputum Past Surgical History: Hernia Repair, Tonsillectomy Additional Past Surgical History / Comment(s): bronchoscopy, bronchial silicone stent, now removed, fatty tumor removed from chest area, COLONOSCOPY, alexandre cataract, hernia repair Past Anesthesia/Blood Transfusion Reactions: Previous Problems w/ Anesthesia Additional Past Anesthesia/Blood Transfusion Reaction / Comment(s): "as turned black and blue from ETHER". FACTOR V LEIDEN Past Psychological History: Anxiety Smoking Status: Former smoker Past Alcohol Use History: None Reported Additional Past Alcohol Use History / Comment(s): STARTED SMOKING AT AGE 14, QUIT SMOKING 2012 Past Drug Use History: None Reported - Past Family History Father Family Medical History: Cancer Additional Family Medical History / Comment(s): colon cancer Mother Family Medical History: Cancer Additional Family Medical History / Comment(s): leukemia General Exam - General Exam Comments Initial Comments: General: Appears in no acute distress. HEAD: Normal with no signs of head trauma. EYES: PERRLA, EOMI, conjunctiva normal, no discharge. ENT: Hearing grossly intact, normal oropharynx. RESPIRATORY: Bilateral end expiratory wheezing. Mild hypoxia on his baseline 2- 3 L nasal cannula. Minimal increased work of breathing. C/V: Regular rate and rhythm. S1 and S2 auscultated, no edema, peripheral pulses 2+ and intact throughout ABD: Abd is soft, nontender, nondistended EXT: Normal range of motion, no obvious deformity SKIN: No rashes or lesions observed on exposed skin. NEURO: Alert and oriented 4. Limitations: no limitations Course Vital Signs 01/29/22 01/29/22 01/29/22 15:33 18:03 18:12 Temperature 98.1 F Pulse Rate 92 74 77 Respiratory 22 Rate Blood Pressure 155/70 O2 Sat by Pulse 92 L Oximetry 01/29/22 18:28 Temperature Pulse Rate 75 Respiratory 18 Rate Blood Pressure 141/70 O2 Sat by Pulse Oximetry Medical Decision Making - Medical Decision Making Based on the patient's presentation and physical exam, he presents for IV antibiotics for a known multidrug resistant Pseudomonas pneumonia. We will obtain cardiopulmonary labs. Chest x-ray will be repeated. We'll start an IV and start the patient on meropenem, which based on his susceptibility report is appropriate. He will be also treated for COPD exacerbation at this time. Patient was in agreement this plan. Vital signs are within acceptable limits at this time. He is requiring supplemental oxygenation. Patient's EKG shows no signs of acute ischemia. Chest x-ray as interpreted by myself reveals right lower lobe infiltrate and a right-sided pleural effusion which seems slightly worse from prior exam. No pneumothorax. No acute bony trauma process. Laboratory studies are remarkable for chronic normocytic anemia. Patient is a slightly elevated BUN/creatinine the setting of CK D. Lactic acid is within normal limits. Patient is Covid and flu negative. Remainder of the labs are unremarkable. At this time, I updated the patient on his workup. He will be admitted. His wheezing is somewhat improved. He was in agreement this plan. Dr. Castillo will be consulted, Dr. Cortez of pulmonology will be consulted. I spoke with Dr. Cervantes the admitting physician who accepted the patient. Patient was admitted in stable condition. We'll continue to treat him for his COPD exacerbation with IV steroids, breathing treatments. - Lab Data Result diagrams: 01/29/22 16:45 01/29/22 16:45 Lab Results 01/29/22 01/29/22 01/29/22 Range/Units 16:45 16:45 16:45 WBC 9.9 (3.8-10.6) k/uL RBC 3.70 L (4.30-5.90) m/uL Hgb 11.5 L (13.0-17.5) gm/dL Hct 35.3 L (39.0-53.0) % MCV 95.3 (80.0-100.0) fL MCH 31.2 (25.0-35.0) pg MCHC 32.8 (31.0-37.0) g/dL RDW 14.7 (11.5-15.5) % Plt Count 310 (150-450) k/uL MPV 8.6 Neutrophils % 70 % Lymphocytes % 17 % Monocytes % 4 % Eosinophils % 6 % Basophils % 1 % Neutrophils # 6.9 (1.3-7.7) k/uL Lymphocytes # 1.7 (1.0-4.8) k/uL Monocytes # 0.4 (0-1.0) k/uL Eosinophils # 0.6 (0-0.7) k/uL Basophils # 0.1 (0-0.2) k/uL Hypochromasia Slight PT 10.3 (9.0-12.0) sec INR 0.9 (<1.2) APTT 24.4 (22.0-30.0) sec Sodium 141 (137-145) mmol/L Potassium 4.6 (3.5-5.1) mmol/L Chloride 106 (98-107) mmol/L Carbon Dioxide 28 (22-30) mmol/L Anion Gap 7 mmol/L BUN 37 H (9-20) mg/dL Creatinine 1.28 H (0.66-1.25) mg/dL Est GFR (CKD-EPI)AfAm 62 (>60 ml/min/1.73 sqM) Est GFR (CKD-EPI)NonAf 53 (>60 ml/min/1.73 sqM) Glucose 109 H (74-99) mg/dL Plasma Lactic Acid Fadi (0.7-2.0) mmol/L Calcium 9.7 (8.4-10.2) mg/dL Magnesium 1.8 (1.6-2.3) mg/dL Total Bilirubin 0.4 (0.2-1.3) mg/dL AST 35 (17-59) U/L ALT 25 (4-49) U/L Alkaline Phosphatase 60 (38-126) U/L Total Protein 6.7 (6.3-8.2) g/dL Albumin 4.0 (3.5-5.0) g/dL Coronavirus (PCR) (Not Detectd) Influenza Type A RNA (Not Detectd) Influenza Type B (PCR) (Not Detectd) 01/29/22 01/29/2201/29/22 Range/Units 16:45 16:45 16:45 WBC (3.8-10.6) k/uL RBC (4.30-5.90) m/uL Hgb (13.0-17.5) gm/dL Hct (39.0-53.0) % MCV (80.0-100.0) fL MCH (25.0-35.0) pg MCHC (31.0-37.0) g/dL RDW (11.5-15.5) % Plt Count (150-450) k/uL MPV Neutrophils % % Lymphocytes % % Monocytes % % Eosinophils % % Basophils % % Neutrophils # (1.3-7.7) k/uL Lymphocytes # (1.0-4.8) k/uL Monocytes # (0-1.0) k/uL Eosinophils # (0-0.7) k/uL Basophils # (0-0.2) k/uL Hypochromasia PT (9.0-12.0) sec INR (<1.2) APTT (22.0-30.0) sec Sodium (137-145) mmol/L Potassium (3.5-5.1) mmol/L Chloride (98-107) mmol/L Carbon Dioxide (22-30) mmol/L Anion Gap mmol/L BUN (9-20) mg/dL Creatinine (0.66-1.25) mg/dL Est GFR (CKD-EPI)AfAm (>60 ml/min/1.73 sqM) Est GFR (CKD-EPI)NonAf (>60 ml/min/1.73 sqM) Glucose (74-99) mg/dL Plasma Lactic Acid Fadi 1.3 (0.7-2.0) mmol/L Calcium (8.4-10.2) mg/dL Magnesium (1.6-2.3) mg/dL Total Bilirubin (0.2-1.3) mg/dL AST (17-59) U/L ALT (4-49) U/L Alkaline Phosphatase (38-126) U/L Total Protein (6.3-8.2) g/dL Albumin (3.5-5.0) g/dL Coronavirus (PCR) Not Detected (Not Detectd) Influenza Type A RNA Not Detected (Not Detectd) Influenza Type B (PCR) Not Detected (Not Detectd) - EKG Data -: EKG Interpreted by Me EKG Comments: 12-lead Electrocardiogram Interpretation Note EKG was reviewed and interpreted by myself. 12-lead ECG performed at 1710 is interpreted by me as revealing normal sinus rhythm at a rate of 80 beats per minute. [place] is normal. VA interval is 202 ms, QRS durations 150 ms, QTc is 438 ms.. There is an isolated T-wave inversion in lead III.. R wave progression across the precordium was satisfactory. By my interpretation this EKG is non- diagnostic for acute ischemia. There are no acute ST segment or T-wave abnormalities to suggest acute ischemia. When compared with EKG from 11/20/2021, no significant change. Disposition Clinical Impression: Pneumonia, Infection due to multidrug-resistant Pseudomonas aeruginosa, COPD exacerbation Disposition: ADMITTED IP TO THIS HOSP Condition: Stable Is patient prescribed a controlled substance at d/c from ED?: No Time of Disposition: 17:45
[2022-01-29] MEDS: MEROPENEM 1 GM in SODIUM CHLORIDE 0.9% 100 ML IVPB SCH (23:25)
[2022-01-30] MEDS: PANTOPRAZOLE 40 MG TABLET PO SCH (05:07)
[2022-01-30] MEDS ORDERED: MEROPENEM 2 GM in SODIUM CHLORIDE 0.9% 100 ML IVPB SCH (06:00)
[2022-01-30] MEDS: SYMBICORT 80-4.5 MCG INHALER INHALATION SCH ×3 (07:16→20:14)
[2022-01-30] MEDS: IPRATROPIUM-ALBUTEROL 3 ML NEB INHALATION SCH ×4 (07:16→20:14)
[2022-01-30] MEDS: LORATADINE 10 MG TAB PO SCH (08:55)
[2022-01-30] MEDS: LACTOBACILLUS ACIDOPH & BULGAR 1 EACH PACKET PO SCH (08:55)
[2022-01-30] MEDS: MONTELUKAST 10 MG TAB PO SCH (08:55)
[2022-01-30] MEDS: MEROPENEM 1 GM in SODIUM CHLORIDE 0.9% 100 ML IVPB SCH ×2 (08:55→16:10)
[2022-01-30] MEDS: ASPIRIN 81 MG PO SCH (08:55)
[2022-01-30] MEDS: ASCORBIC ACID 500 MG TAB PO SCH (08:55)
[2022-01-30] MEDS: METOPROLOL TARTRATE 25 MG TAB PO SCH ×2 (08:55→20:56)
[2022-01-30] MEDS: guaiFENesin 600 MG TABLET.ER PO SCH ×2 (08:55→20:56)
[2022-01-30] MEDS: CHOLECALCIFEROL 25 MCG (1000 IU) TABLET PO SCH (08:55)
[2022-01-30] MEDS: allopurinoL 100 MG TAB PO SCH (08:55)
[2022-01-30] MEDS: DOXAZOSIN 4 MG TAB PO SCH (08:56)
[2022-01-30] MEDS: LISINOPRIL-HCTZ 10-12.5 MG 1 EACH TAB PO SCH (08:56)
[2022-01-30] MEDS: methylPREDNISolone SOD SUCCI 40 MG/ML 1 ML VIAL IV SCH (08:57)
[2022-01-30 12:12] LABS: Basophils # (A) 0.02 X 10*3/uL (0.00-0.10); Basophils % (A) 0.2 %; Eosinophils # (A) 0 X 10*3/uL (0.04-0.35); Eosinophils % (A) 0 %; HCT 32.8 % (39.6-50.0); HGB 10.4 g/dL (13.0-17.0); Immature Grans, Automated 0.6 %; Lymphocytes % (A) 6.7 %; MCHC 31.7 g/dL (32.0-37.0); MCV 94.5 fL (80.0-97.0); Mean Platelet Volume 11.4 fL (9.5-12.2); Monocytes # (A) 0.11 X 10*3/uL (0.20-1.00); Monocytes % (A) 1.2 %; NRBC Per 100 WBC 0 /100 WBCS (0.0-0.0); Neutrophils # (A) 8.11 X 10*3/uL (1.80-7.70); Neutrophils % (A) 91.3 %; Platelet Count 358 X 10*3/uL (140-440); RBC 3.47 X 10*6/uL (4.40-5.60); RDW 15.3 % (11.5-14.5); WBC 8.89 X 10*3/uL (4.50-10.00)
[2022-01-30 12:22] LABS: African American GFR (CKD) 59.5 (60.0-200.0); Anion Gap 10.1 mmol/L (10.00-18.00); BUN/Creat Ratio 30.98 Ratio (12.00-20.00); Blood Urea Nitrogen 40.9 mg/dL (9.0-27.0); Calcium 9.6 mg/dL (8.7-10.3); Carbon Dioxide 24.9 mmol/L (20.0-27.5); Non-African American GFR(CKD) 51.3 (60.0-200.0); Potassium 5.5 mmol/L (3.5-5.5)
--- NOTE | 2022-01-30 14:31 | P.PN ---
Progress Note - Text Progress Note Date: 01/30/22 Chief Complaint: Congested cough This is a 76-year-old patient who follows with Dr. Keshawn Suarez. Chronic stable medical conditions include DVT, GERD, hypertension, uses CPAP, home oxygen 2 L , factor 5 [place], bronchial silicone stent now removed, prior history of hemodialysis, lung cancer diagnosed and treated in [place]. Colostomy. On April 12 2021, in [place] - bowel perforation -had 4 inches of large bowel removed. - colostomy. During that hospitalization he also pneumonia. Then in July again had a lung infection. - port placed / 2 weeks of antibiotics. October 2021 admitted to [facility] in treated with ceftazidime. Following discharge diagnosed with E. coli on November 20 and treated with antibiotics by Dr. Cortez. Patient discharged from the hospital on December 12 with drug- resistant E. coli with 2 weeks of IV Invanz. A weak following the patient started happening this very symptoms again. Congested cough. Tired. More short of breath. More limited exercise tolerance. No fever no chills. Fresh sputum samples were called. Came back positive for multidrug resistance Pseudomonas aeruginosa, sensitive to imipenem. Appetite is fair. Slightly loose stools. No abdominal pain. No fever no chills. 01/30/2022: Admitted with Pseudomonas pneumonia. On IV meropenem. Some congested cough and expectoration. Some sputum. Tolerating diet. Daughter visiting. Active Medications Acetaminophen (Acetaminophen Tab 325 Mg Tab) 650 mg PO Q6HR PRN PRN Reason: Mild Pain or Fever > 100.5 Albuterol/Ipratropium (Ipratropium-Albuterol 3 Ml Neb) 3 ml INHALATION RT-QID [facility] Last Admin: 01/30/22 10:59 Dose: 3 ml Albuterol/Ipratropium (Ipratropium-Albuterol 3 Ml Neb) 3 ml INHALATION RT-Q2H PRN PRN Reason: Shortness Of Breath Or Wheezing Allopurinol (Allopurinol 100 Mg Tab) 100 mg PO DAILY [facility] Last Admin: 01/30/22 08:55 Dose: 100 mg Alprazolam (Alprazolam 0.5 Mg Tab) 0.5 mg PO TID PRN PRN Reason: Anxiety Last Admin: 01/29/22 21:05 Dose: 0.5 mg Ascorbic Acid (Ascorbic Acid 500 Mg Tab) 1,000 mg PO DAILY [facility] Last Admin: 01/30/22 08:55 Dose: 1,000 mg Aspirin (Aspirin 81 Mg) 81 mg PO DAILY [facility] Last Admin: 01/30/22 08:55 Dose: 81 mg Budesonide/Formoterol Fumarate (Symbicort 80-4.5 Mcg Inhaler) 2 puff INHALATION RT-BID [facility] Last Admin: 01/30/22 07:21 Dose: Not Given Calcium Carbonate/Glycine (Calcium Carbonate 500 Mg Chewable) 1,000 mg PO Q4HR PRN PRN Reason: Dyspepsia Cholecalciferol (Cholecalciferol 25 Mcg (1000 Iu) Tablet) 50 mcg PO DAILY [facility] Last Admin: 01/30/22 08:55 Dose: 50 mcg Doxazosin Mesylate (Doxazosin 4 Mg Tab) 4 mg PO DAILY [facility] Last Admin: 01/30/22 08:56 Dose: 4 mg Guaifenesin (Guaifenesin 600 Mg Tablet.Er) 600 mg PO BID [facility] Last Admin: 01/30/22 08:55 Dose: 600 mg Lisinopril/HCTZ (Lisinopril-Hctz 10-12.5 Mg 1 Each Tab) 0.5 each PO DAILY [facility] Last Admin: 01/30/22 08:56 Dose: 0.5 each Meropenem 1 gm/ Sodium (Chloride) 100 mls @ 33.3 mls/hr IVPB Q8H [facility]; Protocol Last Admin: 01/30/22 08:55 Dose: 33.3 mls/hr Lactobacillus Acidoph/Bulgaricus (Lactobacillus Acidoph & Bulgar 1 Each Packet) 1 each PO DAILY [facility] Last Admin: 01/30/22 08:55 Dose: 1 each Lactulose (Lactulose 20 Gm/30 Ml Cup) 20 gm PO DAILY PRN PRN Reason: Constipation Loratadine (Loratadine 10 Mg Tab) 10 mg PO DAILY [facility] Last Admin: 01/30/22 08:55 Dose: 10 mg Magnesium Oxide (Magnesium Oxide 400 Mg Tab) 400 mg PO HS [facility] Last Admin: 01/29/22 20:58 Dose: 400 mg Methylprednisolone Sodium Succinate (Methylprednisolone Sod Succi 40 Mg/Ml 1 Ml Vial) 40 mg IV DAILY [facility] Last Admin: 01/30/22 08:57 Dose: 40 mg Metoprolol Tartrate (Metoprolol Tartrate 25 Mg Tab) 25 mg PO BID [facility] Last Admin: 01/30/22 08:55 Dose: 25 mg Montelukast Sodium (Montelukast 10 Mg Tab) 10 mg PO DAILY [facility] Last Admin: 01/30/22 08:55 Dose: 10 mg Naloxone HCl (Naloxone 0.4 Mg/Ml 1 Ml Vial) 0.2 mg IV Q2M PRN PRN Reason: Opioid Reversal Ondansetron HCl (Ondansetron 4 Mg/2 Ml Vial) 4 mg IVP Q8HR PRN PRN Reason: Nausea And Vomiting Pantoprazole Sodium (Pantoprazole 40 Mg Tablet) 40 mg PO AC-BRKFST [facility] Last Admin: 01/30/22 05:07 Dose: 40 mg Past medical history to include: Factor V Leyden mutation, COPD, DVT, GERD, hypertension, COPD, Pseudomonas lung infection, uses CPAP, 2 L home oxygen when necessary, diverticulitis, bronchial silicone stent now removed, hemodialysis now discontinued CK D stage III, right lung solid nodule with radiation treatment. Social history: Lives alone. Smoked 1-2 packs a day for 50 years stopped in 2012. Did drink significant alcohol stopped some time ago. Retired from [employer]. Family history: Colon cancer Physical examination: VITAL SIGNS: 97.7, 83, 18, 1 46 x 71, 93% on 2 L GENERAL: Sitting regimen bed, sitting up slightly short of breath EYES: Pupils equal. Conjunctiva normal. HEENT: External appearance of nose and ears normal, oral cavity grossly normal. NECK: JVD not raised; masses not palpable. HEART: First and second heart sounds are normal; no edema. LUNGS:[ Respiratory rate increased; decreased breath sounds, some wheezing. ABDOMEN: Soft, nontender, liver spleen not palpable, no masses palpable. PSYCH: Alert and oriented x3; mood and affect normal. MUSCULOSKELETAL:No Clubbing/cyanosis;muscles-grossly intact. OA INVESTIGATIONS, reviewed in the clinical context: White count 8.8 hemoglobin 10.4 potassium 5.5 creatinine 1.3 White count 9.9 hemoglobin 11.5 platelets 310 potassium 4.6 BUN 37 creatinine 1.08 COVID 19/influenza type A/diabetes: Not detected Chest x-ray film personally reviewed by me-right lower lobe infiltrate with some confusion EKG tracing personally reviewed by me-normal sinus rhythm. Right bundle branch block. Previous labs: Sputum culture [January 23]: Pseudomonas aeruginosa Computed tomography scan chest abdomen pelvis without contrast: [January 25]: Right pleural effusion with right lower lobe patchy infiltrate. Worse September 13. Colonic diverticulosis. Assessment plan: -Acute right basal pneumonia in a patient with Recurrent pneumonia in a patient with underlying COPD. recent cultures have been positive sputum positive for stenitophomas maltophilia, MRSA, E. coli. And now on January 23 positive for pseudomonas aeruginosa. IV meropenem. Consult ID and pulmonary -Acute COPD exacerbation in a previous smoker: Slow to respond DuoNeb. IV Solu-Medrol. Perforomist. Nebulized steroids. -Chronic hypoxic respiratory failure from COPD Home oxygen 2 L -Hyperuricemia Allopurinol 100 mg a day -Factor V Leyden mutation -Right upper lung nodule treated with the radiation Follow with pulmonary -Essential hypertension Lopressor 25 mg twice a day -BPH Cardura 4 mg a day -Anxiety not otherwise specified Xanax when necessary -Chronic kidney disease likely nephrosclerosis stage III Follow renal function -Hyperkalemia from CK D No potassium diet. Lokelma for 3 doses. IV meropenem. Bronchodilators. IV Solu-Medrol. Lokelma. Renal diet. Discussed with Dr. Cortez and the patient.
[2022-01-30] MEDS: SODIUM ZIRCONIUM CYCLOSILICATE 10 GM PACKET PO SCH ×3 (15:50→20:56)
--- NOTE | 2022-01-30 16:25 | P.CNPUL ---
History of Present Illness Consult date: 01/30/22 Reason for consult: dyspnea, pneumonia History of present illness: This is another admission for this 76-year-old mentation was recurrent pneumon ias and tracheal bronchitis with gram-negative bacteria specifically pseudomonas. The patient has history of COPD, lung mass that was treated with SBR T and history of tracheal bronchomalacia. He has had multiple pneumonias and multiple hospitalizations in the past for the same. During the most recent hospitalization of November 2021, the patient was treated for an acute gram- negative pneumonia and his sputum culture was positive for E. coli. Note that the patient has had previous infections with Pseudomonas, stenotrophomonas, and MRSA. After his E. coli infection, the patient was treated with antibiotics and the patient also received outpatient antibiotics with Ceftin. Subsequently, he was given a midline/PICC line and he was given a course of Zosyn on outpatient basis. After completion of the antibiotic course, the patient started having true dyspnea and congestion and the patient has outpatient sputum showed pseudomonas aeruginosa and the patient was hospitalized. A chest x-ray showed a right lower lobe pulmonary infiltrate and right-sided pleural effusion. Currently is on IV meropenem. The WBC count of 8.8 with a hemoglobin of 10.4 and a platelet count of 358. D-dimer is 2.64. BUN is at 40 with a creatinine of 1.3 and a sodium level is at 142. The pro-calcitonin level is at 0.19. Covid 19 testing is negative. Influenza A and B are both negative. Review of Systems CONSTITUTIONAL: Denies any recent significant weight loss or weight gain. EYES: Denies change in vision. EARS, NOSE, MOUTH, THROAT: Denies headaches, denies sore throat. CARDIOVASCULAR: Denies chest pain, palpitations or syncopal episodes. RESPIRATORY: Positive for shortness of breath, cough, congestion no hemoptysis. GASTROINTESTINAL: Denies change in appetite, denies abdominal pain GENITOURINARY: Denies hematuria, denies infections. MUSKULOSKELETAL: Denies pain, denies swelling. INTEGUMENTARY: Denies rash, denies eczema. NEUROLOGICAL: Denies recent memory loss, no recent seizure activity. PSYCHIATRIC: Denies anxiety, denies depression. HEMATOLOGIC/LYMPHATIC: Denies anemia, denies enlarged lymph nodes. Past Medical History Past Medical History: Blood Disorder, Cancer, COPD, Deep Vein Thrombosis (DVT), GERD/Reflux, Hypertension, Pneumonia, Renal Disease Additional Past Medical History / Comment(s): hx of pseudomonus lung infection, uses CPAP not for sleep apnea, O2 prn 2l prn, diverticulits, Factor V Leiden, hx of bronchial silicone stent now removed, PICC line in past now removed, past hx dialysis for kidney damage, none currently, Stage 3 renal disease, Lung cancer - diagnosed and treated down in [place], Colostomy, hernia repair History of Any Multi-Drug Resistant Organisms: MRSA Date of last positivie culture/infection: 08/30/21 MDRO Source:: Sputum Past Surgical History: Hernia Repair, Tonsillectomy Additional Past Surgical History / Comment(s): bronchoscopy, bronchial silicone stent, now removed, fatty tumor removed from chest area, COLONOSCOPY, alexandre cataract, hernia repair Past Anesthesia/Blood Transfusion Reactions: Previous Problems w/ Anesthesia Additional Past Anesthesia/Blood Transfusion Reaction / Comment(s): "as infant turned black and blue from ETHER". FACTOR V LEIDEN Past Psychological History: Anxiety Smoking Status: Former smoker Past Alcohol Use History: None Reported Additional Past Alcohol Use History / Comment(s): STARTED SMOKING AT AGE 14, QUIT SMOKING 2012 Past Drug Use History: None Reported - Past Family History Father Family Medical History: Cancer Additional Family Medical History / Comment(s): colon cancer Mother Family Medical History: Cancer Additional Family Medical History / Comment(s): leukemia Medications and Allergies Home Medications Medication Instructions Recorded Confirmed Type Montelukast Sodium [Singulair] 10 mg PO DAILY 01/24/14 01/29/22 History Albuterol Nebulized [Ventolin 2.5 mg INHALATION RT-TID PRN 07/25/16 01/29/22 H istory Nebulized] Metoprolol Tartrate [Lopressor] 25 mg PO BID 07/25/16 01/29/22 History Cetirizine HCl [Zyrtec] 10 mg PO DAILY 08/19/16 01/29/22 History ALPRAZolam [Xanax] 0.5 mg PO TID PRN 09/01/18 01/29/22 History Doxazosin [Cardura] 4 mg PO DAILY 09/01/18 01/29/22 History L.acidoph,Paracasei, B.lactis 1 cap PO DAILY 09/01/18 01/29/22 History [Probiotic] Sodium Chloride 0.9% Nebuliz 3 ml INHALATION RT-QID 09/01/18 01/29/22 History [Saline 0.9% For Nebulization] guaiFENesin 400 mg PO BID 09/01/18 01/29/22 History allopurinoL [Zyloprim] 100 mg PO DAILY 11/21/19 01/29/22 History Albuterol Sulfate [Ventolin HFA] 2 puff INHALATION RT-QID PRN 10/21/21 01/29/22 History Budesonide 0.25 mg INHALATION RT-BID 10/21/21 01/29/22 History Fluticasone/Umeclidin/Vilanter 1 puff INHALATION RT-DAILY 10/21/21 01/29/22 History [Treleok Ellipta 100-62.5-25] Acetaminophen Tab [Tylenol] 650 mg PO Q6HR PRN tab 10/25/21 01/29/22 Rx Ascorbic Acid [Vitamin C] 1,000 mg PO DAILY 01/29/22 01/29/22 History Aspirin 81 mg PO DAILY 01/29/22 01/29/22 History Azithromycin [Zithromax] 250 mg PO DIRECTED 01/29/22 01/29/22 History Cholecalciferol [Vitamin D3 (25 50 mcg PO DAILY 01/29/22 01/29/22 History Mcg = 1000 Iu)] Ipratropium-Albuterol Nebulize 3 ml INHALATION RT-BID 01/29/22 01/29/22 History [Duoneb 0.5 mg-3 mg/3 ml Soln] Lisinopril-Hctz 10-12.5 mg 0.5 tab PO DAILY 01/29/22 01/29/22 History [Zestoretic 10-12.5] Magnesium Oxide [Mag-Ox] 400 mg PO HS 01/29/22 01/29/22 History Pantoprazole Sodium [Protonix] 20 mg PO DAILY 01/29/22 01/29/22 History Allergies Allergy/AdvReac Type Severity Reaction Status Date / Time cefepime Allergy SHUT DOWN Verified 01/29/22 17:51 KIDNEYS ether Allergy Anaphylaxis Verified 01/29/22 17:51 Iodinated Contrast Media Allergy PAST Verified 01/29/22 17:51 [Iodinated Contrast Media - HISTORY OF Oral and] KIDNEY PROBLEMS venom-honey bee Allergy Anaphylaxis Verified 01/29/22 17:51 sulfamethoxazole AdvReac states Verified 01/29/22 17:51 [From Bactrim] effects kidneys trimethoprim [From Bactrim] AdvReac states Verified 01/29/22 17:51 effects kidneys Physical Exam Vitals: Vital Signs Temp Pulse Pulse Resp BP BP Pulse Ox 01/30/22 16:06 74 01/30/22 15:54 74 01/30/22 14:00 97.4 F L 75 16 137/75 97 01/30/22 11:09 72 01/30/22 10:59 72 01/30/22 08:00 97.7 F 83 18 146/71 93 L 01/30/22 07:29 84 01/30/22 07:16 80 01/30/22 02:00 98.2 F 71 20 110/64 97 01/29/22 20:23 88 01/29/22 20:18 86 01/29/22 20:00 97.7 F 86 22 159/87 92 L 01/29/22 18:28 75 18 141/70 01/29/22 18:12 77 01/29/22 18:03 74 Intake and Output 01/30/22 01/30/22 01/30/22 06:59 14:59 22:59 Intake Total 780 Balance 780 Intake: Intake, IV Titration 100 Amount Meropenem 1 gm In Sodium 100 Chloride 0.9% 100 ml @ 33 .3 mls/hr IVPB Q8H [facility] Rx #:[id number] Oral 680 Other: # Voids 3 GENERAL EXAM: Alert, pleasant 68-year-old male, on 2 L nasal cannula, comfortable in no apparent distress. HEAD: Normocephalic. EYES: Normal reaction of pupils, equal size. NOSE: Clear with pink turbinates. THROAT: No erythema or exudates. NECK: No masses, no JVD. CHEST: No chest wall deformity. LUNGS: Equal air entry with crackles in the right lung base CVS: S1 and S2 normal with no audible murmur, regular rhythm. ABDOMEN: No hepatosplenomegaly, normal bowel sounds, no guarding or rigidity. SPINE: No scoliosis or deformity SKIN: No rashes CENTRAL NERVOUS SYSTEM: No focal deficits, tone is normal in all 4 extremities. EXTREMITIES: There is no peripheral edema. No clubbing, no cyanosis. Peripheral pulses are intact. Results - Laboratory Findings CBC and BMP: 01/30/22 06:59 01/30/22 06:59 PT/INR, D-dimer PT 10.3 sec (9.0-12.0) 01/29/22 16:45 INR 0.9 (<1.2) 01/29/22 16:45 D-Dimer 2.64 mg/L FEU (<0.60) H 01/30/22 06:59 Abnormal lab findings: Abnormal Labs 01/29/22 01/29/22 01/30/22 16:45 16:45 06:59 RBC 3.70 L Hgb 11.5 L Hct 35.3 L MCHC RDW Immature Gran # Neutrophils # Lymphocytes # Monocytes # Eosinophils # D-Dimer 2.64 H BUN 37 H Creatinine 1.28 H Est GFR (CKD-EPI)AfAm Est GFR (CKD-EPI)NonAf BUN/Creatinine Ratio Glucose 109 H Procalcitonin 01/30/22 01/30/22 01/30/22 06:59 06:59 06:59 RBC 3.47 L Hgb 10.4 L Hct 32.8 L MCHC 31.7 L RDW 15.3 H Immature Gran # 0.05 H Neutrophils # 8.11 H Lymphocytes # 0.60 L Monocytes # 0.11 L Eosinophils # 0 L D-Dimer BUN 40.9 H Creatinine Est GFR (CKD-EPI)AfAm 59.5 L Est GFR (CKD-EPI)NonAf 51.3 L BUN/Creatinine Ratio 30.98 H Glucose 160 H Procalcitonin 0.19 H - Diagnostic Findings Chest x-ray: image reviewed Assessment and Plan Plan: Recurrent pneumonia. The patient is having recurrent pneumonia/tracheobronchitis with pseudomonas and other gram-negative bacteria. Patient was treated recently for E. coli tracheal bronchitis/pneumonia with received inpatient and subsequent outpatient IV antibiotics. He is coming in for another bout of an infection with pseudomonas aeruginosa based on the most recent sputum sample. Currently on IV meropenem. Right-sided pleural effusion with patchy consolidation of the right lower lobe Acute on chronic hypoxic respiratory failure currently on 2 L of Oxymizer nasal cannula COPD maintain on Trelegy Ellipta on an outpatient basis Tracheobronchomalacia Recurrent respiratory tract infection with pseudomonas aeruginosa, E. coli, MRSA Right upper lobe pulmonary nodule avid on the previous PET scan and this was active on a PET scan and the patient was treated with SBR T Right renal mass being followed up on outpatient basis Infected 5 Leyden mutation Previous history of left lower extremity DVT Hypertension Chronic stage III kidney disease History of colonic perforation requiring colectomy and colostomy. Obstructive sleep apnea not using CPAP therapy Diverticulosis with previous history of diverticulitis Multiple hepatic cysts Plan Agree on the current treatment Continue same antibiotics with IV meropenem Continue DuoNeb about treatments [id number] Mass the patient uses on Trelegy Ellipta from home 1 puff a day Resume all medications Mucinex for cough and congestion We'll continue to follow
[2022-01-30] MEDS: MAGNESIUM OXIDE 400 MG TAB PO SCH (20:56)
[2022-01-30] MEDS: ALPRAZolam 0.5 MG TAB PO PRN (20:57)
[2022-01-31] MEDS: MEROPENEM 1 GM in SODIUM CHLORIDE 0.9% 100 ML IVPB SCH ×4 (00:05→23:44)
[2022-01-31] MEDS: PANTOPRAZOLE 40 MG TABLET PO SCH (06:15)
[2022-01-31] MEDS: CHOLECALCIFEROL 25 MCG (1000 IU) TABLET PO SCH (08:12)
[2022-01-31] MEDS: LORATADINE 10 MG TAB PO SCH (08:12)
[2022-01-31] MEDS: MONTELUKAST 10 MG TAB PO SCH (08:12)
[2022-01-31] MEDS: guaiFENesin 600 MG TABLET.ER PO SCH ×2 (08:12→20:08)
[2022-01-31] MEDS: ASCORBIC ACID 500 MG TAB PO SCH (08:12)
[2022-01-31] MEDS: ASPIRIN 81 MG PO SCH (08:13)
[2022-01-31] MEDS: SODIUM ZIRCONIUM CYCLOSILICATE 10 GM PACKET PO SCH ×2 (08:13→15:42)
[2022-01-31] MEDS: METOPROLOL TARTRATE 25 MG TAB PO SCH ×2 (08:13→20:08)
[2022-01-31] MEDS: allopurinoL 100 MG TAB PO SCH (08:13)
[2022-01-31] MEDS: LACTOBACILLUS ACIDOPH & BULGAR 1 EACH PACKET PO SCH (08:14)
[2022-01-31] MEDS: methylPREDNISolone SOD SUCCI 40 MG/ML 1 ML VIAL IV SCH (08:27)
[2022-01-31] MEDS: SYMBICORT 80-4.5 MCG INHALER INHALATION SCH ×4 (08:52→21:04)
[2022-01-31] MEDS: IPRATROPIUM-ALBUTEROL 3 ML NEB INHALATION SCH ×4 (08:52→20:58)
[2022-01-31] MEDS: DOXAZOSIN 4 MG TAB PO SCH (08:55)
[2022-01-31] MEDS: LISINOPRIL-HCTZ 10-12.5 MG 1 EACH TAB PO SCH (08:55)
--- NOTE | 2022-01-31 09:04 | P.CONS ---
History of Present Illness - Reason for Consult Consult date: 01/30/22 Multidrug-resistant Pseudomonas pneumonia Requesting physician: Madi Rodriguez - Chief Complaint Increasing shortness of breath and cough x few days - History of Present Illness Patient is a 76-year old male with a past medical history significant for end-stage COPD in this patient also with a history of recurrent pneumonia and has been on multiple courses of antibiotics patient recently did have a sputum culture in the outpatient setting by his engine tester on 01/23/2022 there was reported with a Pseudomonas aeruginosa drug-resistant sensitive only to the meropenem and tobramycin for the patient was advised to come back to the hospital patient denies any fever or any chills however has been complaining of increasing shortness of breath patient also having a congested cough which is moderate in intensity and is productive of mild dark sputum however mention he is not able to cough up sputum that frequently he is also complaining of becoming more hypoxic and need for supplemental oxygen with February the patient was evaluated on arrival to the ER the patient was afebrile patient did have a normal white count BUN/creatinine was mildly elevated patient was mildly hypoxic with O2 sats of 92% room air is currently 96% on 2 L nasal cannula patient did have a chest x-ray with right lower lobe infiltrate and right effusion has increased compared to old exam patient was started on meropenem admitted to hospital infectious disease was consulted for further management of antibiotic therapy Review of Systems Positive point has been mentioned in the HPI rest of the systems are negative Past Medical History Past Medical History: Blood Disorder, Cancer, COPD, Deep Vein Thrombosis (DVT), GERD/Reflux, Hypertension, Pneumonia, Renal Disease Additional Past Medical History / Comment(s): hx of pseudomonus lung infection, uses CPAP not for sleep apnea, O2 prn 2l prn, diverticulits, Factor V Leiden, hx of bronchial silicone stent now removed, PICC line in past now removed, past hx dialysis for kidney damage, none currently, Stage 3 renal disease, Lung cancer - diagnosed and treated down in [place], Colostomy, hernia repair History of Any Multi-Drug Resistant Organisms: MRSA Year Discovered:: 08/30/21 MDRO Source:: Sputum Past Surgical History: Hernia Repair, Tonsillectomy Additional Past Surgical History / Comment(s): bronchoscopy, bronchial silicone stent, now removed, fatty tumor removed from chest area, COLONOSCOPY, alexandre cataract, hernia repair Past Anesthesia/Blood Transfusion Reactions: Previous Problems w/ Anesthesia Additional Past Anesthesia/Blood Transfusion Reaction / Comm: "as infant turned black and blue from ETHER". FACTOR V LEIDEN Past Psychological History: Anxiety Smoking Status: Former smoker Past Alcohol Use History: None Reported Additional Past Alcohol Use History / Comment(s): STARTED SMOKING AT AGE 14, QUIT SMOKING 2012 Past Drug Use History: None Reported - Past Family History Father Family Medical History: Cancer Additional Family Medical History / Comment(s): colon cancer Mother Family Medical History: Cancer Additional Family Medical History / Comment(s): leukemia Medications and Allergies Home Medications Medication Instructions Recorded Confirmed Type Montelukast Sodium [Singulair] 10 mg PO DAILY 01/24/14 01/29/22 History Albuterol Nebulized [Ventolin 2.5 mg INHALATION RT-TID PRN 07/25/16 01/29/22 History Nebulized] Metoprolol Tartrate [Lopressor] 25 mg PO BID 07/25/16 01/29/22 History Cetirizine HCl [Zyrtec] 10 mg PO DAILY 08/19/16 01/29/22 History ALPRAZolam [Xanax] 0.5 mg PO TID PRN 09/01/18 01/29/22 History Doxazosin [Cardura] 4 mg PO DAILY 09/01/18 01/29/22 History L.acidoph,Paracasei, B.lactis 1 cap PO DAILY 09/01/18 01/29/22 History [Probiotic] Sodium Chloride 0.9% Nebuliz 3 ml INHALATION RT-QID 09/01/18 01/29/22 History [Saline 0.9% For Nebulization] allopurinoL [Zyloprim] 100 mg PO DAILY 11/21/19 01/29/22 History Albuterol Sulfate [Ventolin HFA] 2 puff INHALATION RT-QID PRN 10/21/21 01/29/22 History Budesonide 0.25 mg INHALATION RT-BID 10/21/21 01/29/22 History Fluticasone/Umeclidin/Vilanter 1 puff INHALATION RT-DAILY 10/21/21 01/29/22 History [Trelegy Ellipta 100-62.5-25] Acetaminophen Tab [Tylenol] 650 mg PO Q6HR PRN tab 10/25/21 01/29/22 Rx Ascorbic Acid [Vitamin C] 1,000 mg PO DAILY 01/29/22 01/29/22 History Aspirin 81 mg PO DAILY 01/29/22 01/29/22 History Cholecalciferol [Vitamin D3 (25 50 mcg PO DAILY 01/29/22 01/29/22 History Mcg = 1000 Iu)] Ipratropium-Albuterol Nebulize 3 ml INHALATION RT-BID 01/29/22 01/29/22 History [Duoneb 0.5 mg-3 mg/3 ml Soln] Lisinopril-Hctz 10-12.5 mg 0.5 tab PO DAILY 01/29/22 01/29/22 History [Zestoretic 10-12.5] Magnesium Oxide [Mag-Ox] 400 mg PO HS 01/29/22 01/29/22 History Pantoprazole Sodium [Protonix] 20 mg PO DAILY 01/29/22 01/29/22 History Levofloxacin [Levaquin] 750 mg PO DAILY 13 Days #13 tab 02/03/22 Rx Meropenem [Merrem] 1 gm IVPB Q8H each 02/03/22 Rx Psyllium Husk 100% [Metamucil 6 gm PO DAILY packet 02/03/22 Rx Packet] guaiFENesin [Mucinex] 600 mg PO TID #90 tab 02/03/22 Rx predniSONE 10 mg PO DAILY #30 tab 02/03/22 Rx Allergies Allergy/AdvReac Type Severity Reaction Status Date / Time cefepime Allergy SHUT DOWN Verified 01/29/22 17:51 KIDNEYS ether Allergy Anaphylaxis Verified 01/29/22 17:51 Iodinated Contrast Media Allergy PAST Verified 01/29/22 17:51 [Iodinated Contrast Media - HISTORY OF Oral and] KIDNEY PROBLEMS venom-honey bee Allergy Anaphylaxis Verified 01/29/22 17:51 sulfamethoxazole AdvReac states Verified 01/29/22 17:51 [From Bactrim] effects kidneys trimethoprim [From Bactrim] AdvReac states Verified 01/29/22 17:51 effects kidneys Physical Exam Vitals: Vital Signs Temp Pulse Pulse Resp BP BP Pulse Ox 01/30/22 11:09 72 01/30/22 10:59 72 01/30/22 08:00 97.7 F 83 18 146/71 93 L 01/30/22 07:29 84 01/30/22 07:16 80 01/30/22 02:00 98.2 F 71 20 110/64 97 01/29/22 20:23 88 01/29/22 20:18 86 01/29/22 20:00 97.7 F 86 22 159/87 92 L 01/29/22 18:28 75 18 141/70 01/29/22 18:12 77 01/29/22 18:03 74 01/29/22 15:33 98.1 F 92 22 155/70 92 L Intake and Output 01/29/22 01/30/22 01/30/22 22:59 06:59 14:59 Intake Total 780 Balance 780 Intake: Intake, IV Titration 100 Amount Meropenem 1 gm In Sodium 100 Chloride 0.9% 100 ml @ 33 .3 mls/hr IVPB Q8H [facility] Rx #:[id number] Oral 680 Other: # Voids 3 Weight 74.843 kg GENERAL DESCRIPTION: Elderly male lying in bed, no distress. No tachypnea or accessory muscle of respiration use. HEENT: Shows Pallor , no scleral icterus. Oral mucous membrane is dry. No pharyngeal erythema or thrush NECK: Trachea central, no thyromegaly. LUNGS: Unlabored breathing. Coarse breath sounds bilaterally. HEART: S1, S2, regular rate and rhythm. No loud murmur ABDOMEN: Soft, no tenderness , guarding or rigidity, no organomegaly EXTREMITIES: No edema of feet. SKIN: No rash, no masses palpable. NEUROLOGICAL: The patient is awake, alert, oriented x3, mood and affect normal. Results CBC & Chem 7: 02/03/22 04:49 02/03/22 04:49 Labs: Abnormal Lab Results - Last 24 Hours (Table) 01/29/22 01/29/22 01/30/22 Range/Units 16:45 16:45 06:59 RBC 3.70 L (4.30-5.90) m/uL Hgb 11.5 L (13.0-17.5) gm/dL Hct 35.3 L (39.0-53.0) % MCHC (32.0-37.0) g/dL RDW (11.5-14.5) % Immature Gran # (0.00-0.04) X 10*3/uL Neutrophils # (1.80-7.70) X 10*3/uL Lymphocytes # (0.90-5.00) X 10*3/uL Monocytes # (0.20-1.00) X 10*3/uL Eosinophils # (0.04-0.35) X 10*3/uL D-Dimer 2.64 H (<0.60) mg/L FEU BUN 37 H (9-20) mg/dL Creatinine 1.28 H (0.66-1.25) mg/dL Est GFR (CKD-EPI)AfAm (60.0-200.0) Est GFR (CKD-EPI)NonAf (60.0-200.0) BUN/Creatinine Ratio (12.00-20.00) Ratio Glucose 109 H (74-99) mg/dL Procalcitonin (0.02-0.09) ng/mL 01/30/22 01/30/22 01/30/22 Range/Units 06:59 06:59 06:59 RBC 3.47 L (4.30-5.90) m/uL Hgb 10.4 L (13.0-17.5) gm/dL Hct 32.8 L (39.0-53.0) % MCHC 31.7 L (32.0-37.0) g/dL RDW 15.3 H (11.5-14.5) % Immature Gran # 0.05 H (0.00-0.04) X 10*3/uL Neutrophils # 8.11 H (1.80-7.70) X 10*3/uL Lymphocytes # 0.60 L (0.90-5.00) X 10*3/uL Monocytes # 0.11 L (0.20-1.00) X 10*3/uL Eosinophils # 0 L (0.04-0.35) X 10*3/uL D-Dimer (<0.60) mg/L FEU BUN 40.9 H (9-20) mg/dL Creatinine (0.66-1.25) mg/dL Est GFR (CKD-EPI)AfAm 59.5 L (60.0-200.0) Est GFR (CKD-EPI)NonAf 51.3 L (60.0-200.0) BUN/Creatinine Ratio 30.98 H (12.00-20.00) Ratio Glucose 160 H (74-99) mg/dL Procalcitonin 0.19 H (0.02-0.09) ng/mL Assessment and Plan (1) Infection due to multidrug-resistant Pseudomonas aeruginosa Status: Acute Code(s): A49.8 - OTHER BACTERIAL INFECTIONS OF UNSPECIFIED SITE; Z16.24 - RESISTANCE TO MULTIPLE ANTIBIOTICS SNOMED Code(s): 600370351 (2) Pneumonia Status: Acute Code(s): J18.9 - PNEUMONIA, UNSPECIFIED ORGANISM SNOMED Code(s): 176919106 Plan: 1patient with positive sputum culture for multidrug-resistant Pseudomonas aeruginosa in this patient with end-stage COPD did have increased infiltrate right lower lobe concerning for possible pneumonia the patient not running any fever or elevated white count however keeping in mind his worsening respiratory symptoms and high risk of respiratory failure patient will need more aggressive treatment with antibiotic. 2meropenem 1 g every 8 hours. 3await repeat sputum and possible bronchoscopy planned by pulmonary. 4we will need a PICC line and outpatient IV antibiotic therapy and will be an ideal candidatefor suppressive inhaled tobramycin to prevent recurrent pseudomonal pneumonia We will follow on clinical condition and cultures to further adjust medication if needed Thank you for this consultation will follow this patient along with you Time with Patient: Greater than 30
[2022-01-31] MEDS: PSYLLIUM HUSK 100% 6 GM PACKET PO SCH (11:25)
--- NOTE | 2022-01-31 16:32 | P.PN ---
Subjective Progress Note Date: 01/31/22 This is another admission for this 76-year-old mentation was recurrent pneumonias and tracheal bronchitis with gram-negative bacteria specifically pseudomonas. The patient has history of COPD, lung mass that was treated with SBR T and history of tracheal bronchomalacia. He has had multiple pneumonias a nd multiple hospitalizations in the past for the same. During the most recent hospitalization of November 2021, the patient was treated for an acute gram- negative pneumonia and his sputum culture was positive for E. coli. Note that the patient has had previous infections with Pseudomonas, stenotrophomonas, and MRSA. After his E. coli infection, the patient was treated with antibiotics and the patient also received outpatient antibiotics with Ceftin. Subsequently, he was given a midline/PICC line and he was given a course of Zosyn on outpatient basis. After completion of the antibiotic course, the patient started having true dyspnea and congestion and the patient has outpatient sputum showed pseudomonas aeruginosa and the patient was hospitalized. A chest x-ray showed a right lower lobe pulmonary infiltrate and right-sided pleural effusion. Currently is on IV meropenem. The WBC count of 8.8 with a hemoglobin of 10.4 and a platelet count of 358. D-dimer is 2.64. BUN is at 40 with a creatinine of 1.3 and a sodium level is at 142. The pro-calcitonin level is at 0.19. Covid 19 testing is negative. Influenza A and B are both negative. . On 01/31/2022, the patient's condition is stable. The patient remains on IV meropenem. The patient on DuoNeb about treatments [id number] and IV Solu- Medrol. Doing well. No new complaints. No fever or chills. The pro-calciton in level was at 0.19. The vital screening was negative. Objective - Vital Signs Vital signs: Vital Signs Temp 97.6 F 01/31/22 14:01 Pulse 77 01/31/22 14:01 Resp 16 01/31/22 14:01 BP 152/79 01/31/22 14:01 Pulse Ox 96 01/31/22 14:01 FiO2 Intake & Output 01/30/22 01/31/22 01/31/22 18:59 06:59 18:59 Intake Total 1080 Balance 1080 Intake: Oral 1080 Other: Voiding Method Toilet # Voids 3 3 # Bowel Movements 1 - Exam GENERAL EXAM: Alert, pleasant 68-year-old male, on 2 L nasal cannula, comfortable in no apparent distress. HEAD: Normocephalic. EYES: Normal reaction of pupils, equal size. NOSE: Clear with pink turbinates. THROAT: No erythema or exudates. NECK: No masses, no JVD. CHEST: No chest wall deformity. LUNGS: Equal air entry with crackles in the right lung base CVS: S1 and S2 normal with no audible murmur, regular rhythm. ABDOMEN: No hepatosplenomegaly, normal bowel sounds, no guarding or rigidity. SPINE: No scoliosis or deformity SKIN: No rashes CENTRAL NERVOUS SYSTEM: No focal deficits, tone is normal in all 4 extremities. EXTREMITIES: There is no peripheral edema. No clubbing, no cyanosis. Perip heral pulses are intact. - Labs CBC & Chem 7: 01/30/22 06:59 01/30/22 06:59 Labs: Microbiology - Last 24 Hours (Table) 01/30/22 11:00 Gram Stain - Preliminary Sputum Sputum Culture - Preliminary 01/29/22 16:45 Blood Culture - Preliminary Blood No Growth after 24 hours 01/29/22 17:00 Blood Culture - Preliminary Blood No Growth after 24 hours Assessment and Plan Plan: Recurrent pneumonia. The patient is having recurrent pneumonia/tracheobronchitis with pseudomonas and other gram-negative bacteria. Patient was treated recently for E. coli tracheal bronchitis/pneumonia with received inpatient and subsequent outpatient IV antibiotics. He is coming in for another bout of an infection with pseudomonas aeruginosa based on the most recent sputum sample. Currently on IV meropenem. Clinically stable, slightly improved Right-sided pleural effusion with patchy consolidation of the right lower lobe Acute on chronic hypoxic respiratory failure currently on 2 L of Oxymizer nasal cannula COPD maintain on Trelegy Ellipta on an outpatient basis Tracheobronchomalacia Recurrent respiratory tract infection with pseudomonas aeruginosa, E. coli, MRSA Right upper lobe pulmonary nodule avid on the previous PET scan and this was active on a PET scan and the patient was treated with SBR T Right renal mass being followed up on outpatient basis Infected 5 Leyden mutation Previous history of left lower extremity DVT Hypertension Chronic stage III kidney disease History of colonic perforation requiring colectomy and colostomy. Obstructive sleep apnea not using CPAP therapy Diverticulosis with previous history of diverticulitis Multiple hepatic cysts Plan Continue same treatment Clinically slightly improved Infectious diseases on the case Continue same antibiotics with IV meropenem Continue DuoNeb about treatments [id number] Mass the patient uses on Trelegy Ellipta from home 1 puff a day Resume all medications Mucinex for cough and congestion We'll continue to follow
--- NOTE | 2022-01-31 20:03 | P.PN ---
Progress Note - Text Progress Note Date: 01/31/22 Chief Complaint: Congested cough This is a 76-year-old patient who follows with Dr. Keshawn Suarez. Chronic stable medical conditions include DVT, GERD, hypertension, uses CPAP, home oxygen 2 L , factor 5 Leyden, bronchial silicone stent now removed, prior history of hemodialysis, lung cancer diagnosed and treated in [place]. Colostomy. On April 12 2021, in [place] - bowel perforation -had 4 inches of large bowel removed. - colostomy. During that hospitalization he also pneumonia. Then in July again had a lung infection. - port placed / 2 weeks of antibiotics. October 2021 admitted to [facility] in treated with ceftazidime. Following discharge diagnosed with E. coli on November 20 and treated with antibiotics by Dr. Cortez. Patient discharged from the hospital on December 12 with drug- resistant E. coli with 2 weeks of IV Invanz. A weak following the patient started happening this very symptoms again. Congested cough. Tired. More short of breath. More limited exercise tolerance. No fever no chills. Fresh sputum samples were called. Came back positive for multidrug resistance Pseudomonas aeruginosa, sensitive to imipenem. Appetite is fair. Slightly loose stools. No abdominal pain. No fever no chills. 01/30/2022: Admitted with Pseudomonas pneumonia. On IV meropenem. Some congested cough and expectoration. Some sputum. Tolerating diet. Daughter visiting. 01/31/2022: Sitting at the edge of the bed. Some congested cough. Oral intake fair. Some sputum production. On IV meropenem. Active Medications Acetaminophen (Acetaminophen Tab 325 Mg Tab) 650 mg PO Q6HR PRN PRN Reason: Mild Pain or Fever > 100.5 Albuterol/Ipratropium (Ipratropium-Albuterol 3 Ml Neb) 3 ml INHALATION RT-QID [facility] Last Admin: 01/31/22 16:42 Dose: 3 ml Albuterol/Ipratropium (Ipratropium-Albuterol 3 Ml Neb) 3 ml INHALATION RT-Q2H PRN PRN Reason: Shortness Of Breath Or Wheezing Allopurinol (Allopurinol 100 Mg Tab) 100 mg PO DAILY [facility] Last Admin: 01/31/22 08:13 Dose: 100 mg Alprazolam (Alprazolam 0.5 Mg Tab) 0.5 mg PO TID PRN PRN Reason: Anxiety Last Admin: 01/30/22 20:57 Dose: 0.5 mg Ascorbic Acid (Ascorbic Acid 500 Mg Tab) 1,000 mg PO DAILY [facility] Last Admin: 01/31/22 08:12 Dose: 1,000 mg Aspirin (Aspirin 81 Mg) 81 mg PO DAILY [facility] Last Admin: 01/31/22 08:13 Dose: 81 mg Budesonide/Formoterol Fumarate (Symbicort 80-4.5 Mcg Inhaler) 2 puff INHALATION RT-BID [facility] Last Admin: 01/31/22 08:53 Dose: Not Given Calcium Carbonate/Glycine (Calcium Carbonate 500 Mg Chewable) 1,000 mg PO Q4HR PRN PRN Reason: Dyspepsia Cholecalciferol (Cholecalciferol 25 Mcg (1000 Iu) Tablet) 50 mcg PO DAILY [facility] Last Admin: 01/31/22 08:12 Dose: 50 mcg Doxazosin Mesylate (Doxazosin 4 Mg Tab) 4 mg PO DAILY [facility] Last Admin: 01/31/22 08:55 Dose: 4 mg Guaifenesin (Guaifenesin 600 Mg Tablet.Er) 600 mg PO BID [facility] Last Admin: 01/31/22 08:12 Dose: 600 mg Lisinopril/HCTZ (Lisinopril-Hctz 10-12.5 Mg 1 Each Tab) 0.5 each PO DAILY [facility] Last Admin: 01/31/22 08:55 Dose: 0.5 each Meropenem 1 gm/ Sodium (Chloride) 100 mls @ 33.3 mls/hr IVPB Q8H [facility]; Protocol Last Admin: 01/31/22 15:43 Dose: 33.3 mls/hr Lactobacillus Acidoph/Bulgaricus (Lactobacillus Acidoph & Bulgar 1 Each Packet) 1 each PO DAILY [facility] Last Admin: 01/31/22 08:14 Dose: 1 each Lactulose (Lactulose 20 Gm/30 Ml Cup) 20 gm PO DAILY PRN PRN Reason: Constipation Loratadine (Loratadine 10 Mg Tab) 10 mg PO DAILY [facility] Last Admin: 01/31/22 08:12 Dose: 10 mg Magnesium Oxide (Magnesium Oxide 400 Mg Tab) 400 mg PO HS [facility] Last Admin: 01/30/22 20:56 Dose: 400 mg Methylprednisolone Sodium Succinate (Methylprednisolone Sod Succi 40 Mg/Ml 1 Ml Vial) 40 mg IV DAILY [facility] Last Admin: 01/31/22 08:27 Dose: 40 mg Metoprolol Tartrate (Metoprolol Tartrate 25 Mg Tab) 25 mg PO BID [facility] Last Admin: 01/31/22 08:13 Dose: 25 mg Montelukast Sodium (Montelukast 10 Mg Tab) 10 mg PO DAILY [facility] Last Admin: 01/31/22 08:12 Dose: 10 mg Naloxone HCl (Naloxone 0.4 Mg/Ml 1 Ml Vial) 0.2 mg IV Q2M PRN PRN Reason: Opioid Reversal Ondansetron HCl (Ondansetron 4 Mg/2 Ml Vial) 4 mg IVP Q8HR PRN PRN Reason: Nausea And Vomiting Pantoprazole Sodium (Pantoprazole 40 Mg Tablet) 40 mg PO AC-BRKFST [facility] Last Admin: 01/31/22 06:15 Dose: 40 mg Psyllium Hydrophilic Mucilloid (Psyllium Husk 100% 6 Gm Packet) 6 gm PO DAILY [facility] Last Admin: 01/31/22 11:25 Dose: 6 gm Past medical history to include: Factor V Leyden mutation, COPD, DVT, GERD, hypertension, COPD, Pseudomonas lung infection, uses CPAP, 2 L home oxygen when necessary, diverticulitis, bronchial silicone stent now removed, hemodialysis now discontinued CK D stage III, right lung solid nodule with radiation treatment. Social history: Lives alone. Smoked 1-2 packs a day for 50 years stopped in 2012. Did drink significant alcohol stopped some time ago. Retired from [employer] and [employer]. Family history: Colon cancer Physical examination: VITAL SIGNS: 97.6, 77, 16, 152/79, 96% on 2 L GENERAL: Sitting on the bed, some shortness of breath EYES: Pupils equal. Conjunctiva normal. HEENT: External appearance of nose and ears normal, oral cavity grossly normal. NECK: JVD not raised; masses not palpable. HEART: First and second heart sounds are normal; no edema. LUNGS:[ Respiratory rate increased; decreased breath sounds, some wheezing. ABDOMEN: Soft, nontender, liver spleen not palpable, no masses palpable. PSYCH: Alert and oriented x3; mood and affect normal. MUSCULOSKELETAL:No Clubbing/cyanosis;muscles-grossly intact. OA INVESTIGATIONS, reviewed in the clinical context: White count 8.8 hemoglobin 10.4 potassium 5.5 creatinine 1.3 White count 9.9 hemoglobin 11.5 platelets 310 potassium 4.6 BUN 37 creatinine 1.08 COVID 19/influenza type A/diabetes: Not detected Chest x-ray film personally reviewed by me-right lower lobe infiltrate with some confusion EKG tracing personally reviewed by me-normal sinus rhythm. Right bundle branch block. Previous labs: Sputum culture [January 23]: Pseudomonas aeruginosa Computed tomography scan chest abdomen pelvis without contrast: [January 25]: Right pleural effusion with right lower lobe patchy infiltrate. Worse September 13. Colonic diverticulosis. Assessment plan: -Acute right basal pneumonia in a patient with Recurrent pneumonia in a patient with underlying COPD. recent cultures have been positive sputum positive for stenitophomas maltophilia, MRSA, E. coli. And now on January 23 positive for pseudomonas aeruginosa. IV meropenem. Follow with pulmonary and ID.. Late midline. -Acute COPD exacerbation in a previous smoker: DuoNeb. IV Solu-Medrol. Perforomist. Nebulized steroids. -Chronic hypoxic respiratory failure from COPD Home oxygen 2 L -Hyperuricemia Allopurinol 100 mg a day -Factor V Leyden mutation -Right upper lung nodule treated with the radiation Follow with pulmonary -Essential hypertension Lopressor 25 mg twice a day -BPH Cardura 4 mg a day -Anxiety not otherwise specified Xanax when necessary -Chronic kidney disease likely nephrosclerosis stage III Follow renal function -Hyperkalemia from CK D Low potassium diet. Lokelma for 3 doses. IV meropenem. Bronchodilators. IV Solu-Medrol. Renal diet. Discussed with patient. 4 PICC line.
[2022-01-31] MEDS: ALPRAZolam 0.5 MG TAB PO PRN (20:08)
[2022-01-31] MEDS: MAGNESIUM OXIDE 400 MG TAB PO SCH (20:08)
[2022-02-01] MEDS: PANTOPRAZOLE 40 MG TABLET PO SCH (06:13)
[2022-02-01 09:09] LABS: African American GFR (CKD) 73 (>60 ml/min/1.73 sqM); Anion Gap 6 mmol/L; Blood Urea Nitrogen 44 mg/dL (9-20); Calcium 9.3 mg/dL (8.4-10.2); Carbon Dioxide 28 mmol/L (22-30); Chloride 105 mmol/L (98-107); Glucose 120 mg/dL (74-99); Non-African American GFR(CKD) 63 (>60 ml/min/1.73 sqM); Potassium 4.7 mmol/L (3.5-5.1); Sodium 139 mmol/L (137-145)
[2022-02-01] MEDS: SYMBICORT 80-4.5 MCG INHALER INHALATION SCH ×2 (09:12→18:59)
[2022-02-01] MEDS: IPRATROPIUM-ALBUTEROL 3 ML NEB INHALATION SCH ×4 (09:12→18:59)
[2022-02-01] MEDS: MEROPENEM 1 GM in SODIUM CHLORIDE 0.9% 100 ML IVPB SCH ×3 (09:30→23:50)
[2022-02-01] MEDS: DOXAZOSIN 4 MG TAB PO SCH (09:31)
[2022-02-01] MEDS: MONTELUKAST 10 MG TAB PO SCH (09:31)
[2022-02-01] MEDS: LORATADINE 10 MG TAB PO SCH (09:31)
[2022-02-01] MEDS: PSYLLIUM HUSK 100% 6 GM PACKET PO SCH ×2 (09:31→20:14)
[2022-02-01] MEDS: LISINOPRIL-HCTZ 10-12.5 MG 1 EACH TAB PO SCH (09:31)
[2022-02-01] MEDS: METOPROLOL TARTRATE 25 MG TAB PO SCH ×2 (09:31→20:14)
[2022-02-01] MEDS: ASPIRIN 81 MG PO SCH (09:31)
[2022-02-01] MEDS: guaiFENesin 600 MG TABLET.ER PO SCH ×2 (09:31→20:14)
[2022-02-01] MEDS: allopurinoL 100 MG TAB PO SCH (09:31)
[2022-02-01] MEDS: ASCORBIC ACID 500 MG TAB PO SCH (09:31)
[2022-02-01] MEDS: CHOLECALCIFEROL 25 MCG (1000 IU) TABLET PO SCH (09:31)
[2022-02-01] MEDS: LACTOBACILLUS ACIDOPH & BULGAR 1 EACH PACKET PO SCH (09:31)
[2022-02-01] MEDS: methylPREDNISolone SOD SUCCI 40 MG/ML 1 ML VIAL IV SCH (10:22)
--- NOTE | 2022-02-01 15:12 | P.PN ---
Progress Note - Text Progress Note Date: 02/01/22 Chief Complaint: Congested cough This is a 76-year-old patient who follows with Dr. Keshawn Suarez. Chronic stable medical conditions include DVT, GERD, hypertension, uses CPAP, home oxygen 2 L , factor 5 Leyden, bronchial silicone stent now removed, prior history of hemodialysis, lung cancer diagnosed and treated in [place]. Colostomy. On April 12 2021, in [place] - bowel perforation -had 4 inches of large bowel removed. - colostomy. During that hospitalization he also pneumonia. Then in July again had a lung infection. - port placed / 2 weeks of antibiotics. October 2021 admitted to [facility] in treated with ceftazidime. Following discharge diagnosed with E. coli on November 20 and treated with antibiotics by Dr. Cortez. Patient discharged from the hospital on December 12 with drug- resistant E. coli with 2 weeks of IV Invanz. A weak following the patient started happening this very symptoms again. Congested cough. Tired. More short of breath. More limited exercise tolerance. No fever no chills. Fresh sputum samples were called. Came back positive for multidrug resistance Pseudomonas aeruginosa, sensitive to imipenem. Appetite is fair. Slightly loose stools. No abdominal pain. No fever no chills. 01/30/2022: Admitted with Pseudomonas pneumonia. On IV meropenem. Some congested cough and expectoration. Some sputum. Tolerating diet. Daughter visiting. 01/31/2022: Sitting at the edge of the bed. Some congested cough. Oral intake fair. Some sputum production. On IV meropenem. 02/01/2022: Congested cough present. Some sputum. Remains on IV meropenem. Oral intake good. Up to the bathroom. Patient had been having liquid stools. Colostomy pouch. More formed after being started on Metamucil. Active Medications Acetaminophen (Acetaminophen Tab 325 Mg Tab) 650 mg PO Q6HR PRN PRN Reason: Mild Pain or Fever > 100.5 Albuterol/Ipratropium (Ipratropium-Albuterol 3 Ml Neb) 3 ml INHALATION RT-QID [facility] Last Admin: 02/01/22 12:43 Dose: 3 ml Albuterol/Ipratropium (Ipratropium-Albuterol 3 Ml Neb) 3 ml INHALATION RT-Q2H PRN PRN Reason: Shortness Of Breath Or Wheezing Allopurinol (Allopurinol 100 Mg Tab) 100 mg PO DAILY [facility] Last Admin: 02/01/22 09:31 Dose: 100 mg Alprazolam (Alprazolam 0.5 Mg Tab) 0.5 mg PO TID PRN PRN Reason: Anxiety Last Admin: 01/31/22 20:08 Dose: 0.5 mg Ascorbic Acid (Ascorbic Acid 500 Mg Tab) 1,000 mg PO DAILY [facility] Last Admin: 02/01/22 09:31 Dose: 1,000 mg Aspirin (Aspirin 81 Mg) 81 mg PO DAILY [facility] Last Admin: 02/01/22 09:31 Dose: 81 mg Budesonide/Formoterol Fumarate (Symbicort 80-4.5 Mcg Inhaler) 2 puff INHALATION RT-BID [facility] Last Admin: 02/01/22 09:12 Dose: Not Given Calcium Carbonate/Glycine (Calcium Carbonate 500 Mg Chewable) 1,000 mg PO Q4HR PRN PRN Reason: Dyspepsia Cholecalciferol (Cholecalciferol 25 Mcg (1000 Iu) Tablet) 50 mcg PO DAILY [facility] Last Admin: 02/01/22 09:31 Dose: 50 mcg Doxazosin Mesylate (Doxazosin 4 Mg Tab) 4 mg PO DAILY [facility] Last Admin: 02/01/22 09:31 Dose: 4 mg Guaifenesin (Guaifenesin 600 Mg Tablet.Er) 600 mg PO BID [facility] Last Admin: 02/01/22 09:31 Dose: 600 mg Lisinopril/HCTZ (Lisinopril-Hctz 10-12.5 Mg 1 Each Tab) 0.5 each PO DAILY [facility] Last Admin: 02/01/22 09:31 Dose: 0.5 each Meropenem 1 gm/ Sodium (Chloride) 100 mls @ 33.3 mls/hr IVPB Q8H [facility]; Protocol Last Admin: 02/01/22 09:30 Dose: 33.3 mls/hr Lactobacillus Acidoph/Bulgaricus (Lactobacillus Acidoph & Bulgar 1 Each Packet) 1 each PO DAILY [facility] Last Admin: 02/01/22 09:31 Dose: 1 each Lactulose (Lactulose 20 Gm/30 Ml Cup) 20 gm PO DAILY PRN PRN Reason: Constipation Loratadine (Loratadine 10 Mg Tab) 10 mg PO DAILY [facility] Last Admin: 02/01/22 09:31 Dose: 10 mg Magnesium Oxide (Magnesium Oxide 400 Mg Tab) 400 mg PO HS [facility] Last Admin: 01/31/22 20:08 Dose: 400 mg Methylprednisolone Sodium Succinate (Methylprednisolone Sod Succi 40 Mg/Ml 1 Ml Vial) 40 mg IV DAILY [facility] Last Admin: 02/01/22 10:22 Dose: 40 mg Metoprolol Tartrate (Metoprolol Tartrate 25 Mg Tab) 25 mg PO BID [facility] Last Admin: 02/01/22 09:31 Dose: 25 mg Montelukast Sodium (Montelukast 10 Mg Tab) 10 mg PO DAILY [facility] Last Admin: 02/01/22 09:31 Dose: 10 mg Naloxone HCl (Naloxone 0.4 Mg/Ml 1 Ml Vial) 0.2 mg IV Q2M PRN PRN Reason: Opioid Reversal Ondansetron HCl (Ondansetron 4 Mg/2 Ml Vial) 4 mg IVP Q8HR PRN PRN Reason: Nausea And Vomiting Pantoprazole Sodium (Pantoprazole 40 Mg Tablet) 40 mg PO AC-BRKFST [facility] Last Admin: 02/01/22 06:13 Dose: 40 mg Psyllium Hydrophilic Mucilloid (Psyllium Husk 100% 6 Gm Packet) 6 gm PO DAILY [facility] Last Admin: 02/01/22 09:31 Dose: 6 gm Past medical history to include: Factor V Leyden mutation, COPD, DVT, GERD, hypertension, COPD, Pseudomonas lung infection, uses CPAP, 2 L home oxygen when necessary, diverticulitis, bronchial silicone stent now removed, hemodialysis now discontinued CK D stage III, right lung solid nodule with radiation treatment. Social history: Lives alone. Smoked 1-2 packs a day for 50 years stopped in 2012. Did drink significant alcohol stopped some time ago. Retired from [employer] and [employer]. Family history: Colon cancer Physical examination: VITAL SIGNS: 98.3, 62, 18, 1 37 x 70, 95% on 2 L GENERAL: some shortness of breath EYES: Pupils equal. Conjunctiva normal. HEENT: External appearance of nose and ears normal, oral cavity grossly normal. NECK: JVD not raised; masses not palpable. HEART: First and second heart sounds are normal; no edema. LUNGS:[ Respiratory rate increased; decreased breath sounds, some wheezing. ABDOMEN: Soft, nontender, liver spleen not palpable, no masses palpable. Colostomy pouch PSYCH: Alert and oriented x3; mood and affect normal. MUSCULOSKELETAL:No Clubbing/cyanosis;muscles-grossly intact. OA INVESTIGATIONS, reviewed in the clinical context: White count 8.8 hemoglobin 10.4 potassium 5.5 creatinine 1.3 White count 9.9 hemoglobin 11.5 platelets 310 potassium 4.6 BUN 37 creatinine 1.08 COVID 19/influenza type A/diabetes: Not detected Chest x-ray film personally reviewed by me-right lower lobe infiltrate with some confusion EKG tracing personally reviewed by me-normal sinus rhythm. Right bundle branch block. Previous labs: Sputum culture [January 23]: Pseudomonas aeruginosa Computed tomography scan chest abdomen pelvis without contrast: [January 25]: Right pleural effusion with right lower lobe patchy infiltrate. Worse September 13. Colonic diverticulosis. Assessment plan: -Acute right basal pneumonia in a patient with Recurrent pneumonia in a patient with underlying COPD. recent cultures have been positive sputum positive for stenitophomas maltophilia, MRSA, E. coli. And now on January 23 positive for pseudomonas aeruginosa. IV meropenem. Follow with pulmonary and ID.. -Acute COPD exacerbation in a previous smoker: DuoNeb. IV [id number] to oral prednisone. Perforomist. Nebulized steroids. -Chronic hypoxic respiratory failure from COPD Home oxygen 2 L -Hyperuricemia Allopurinol 100 mg a day -Factor V Leyden mutation -Right upper lung nodule treated with the radiation Follow with pulmonary -Essential hypertension Lopressor 25 mg twice a day -BPH Cardura 4 mg a day -Anxiety not otherwise specified Xanax when necessary -Chronic kidney disease likely nephrosclerosis stage III Follow renal function -Hyperkalemia from CK D Low potassium diet. Lokelma for 3 doses. IV meropenem. Bronchodilators. IV [id number] to prednisone. Renal diet. Discussed with patient.
--- NOTE | 2022-02-01 16:01 | P.PN ---
Subjective Progress Note Date: 02/01/22 This is another admission for this 76-year-old mentation was recurrent pneumonias and tracheal bronchitis with gram-negative bacteria specifically pseudomonas. The patient has history of COPD, lung mass that was treated with SBR T and history of tracheal bronchomalacia. He has had multiple pneumonias a nd multiple hospitalizations in the past for the same. During the most recent hospitalization of November 2021, the patient was treated for an acute gram- negative pneumonia and his sputum culture was positive for E. coli. Note that the patient has had previous infections with Pseudomonas, stenotrophomonas, and MRSA. After his E. coli infection, the patient was treated with antibiotics and the patient also received outpatient antibiotics with Ceftin. Subsequently, he was given a midline/PICC line and he was given a course of Zosyn on outpatient basis. After completion of the antibiotic course, the patient started having true dyspnea and congestion and the patient has outpatient sputum showed pseudomonas aeruginosa and the patient was hospitalized. A chest x-ray showed a right lower lobe pulmonary infiltrate and right-sided pleural effusion. Currently is on IV meropenem. The WBC count of 8.8 with a hemoglobin of 10.4 and a platelet count of 358. D-dimer is 2.64. BUN is at 40 with a creatinine of 1.3 and a sodium level is at 142. The pro-calcitonin level is at 0.19. Covid 19 testing is negative. Influenza A and B are both negative. . On 01/31/2022, the patient's condition is stable. The patient remains on IV meropenem. The patient on DuoNeb about treatments [id number] and IV Solu- Medrol. Doing well. No new complaints. No fever or chills. The pro-calciton in level was at 0.19. The vital screening was negative. On 02/01/2022, the patient remains on IV meropenem. He is active. No fever or chills. Producing sputum. Repeat sputum sample was collected and is showing gram-negative bacillus. Remains on bronchodilators. He remains on IV Solu- Medrol 40 mg every 24 hours. No other complaints otherwise for now. Vitals are all stable. No side effects of the antibiotics. No antibiotic toxicity. BUN is 44 with a creatinine of 1.1 and sodium level is at 139. Pro-calcitonin level is at 0.19. Objective - Vital Signs Vital signs: Vital Signs Temp 97.5 F L 02/01/22 14:00 Pulse 78 02/01/22 14:00 Resp 18 02/01/22 14:00 BP 137/70 02/01/22 08:00 Pulse Ox 97 02/01/22 14:00 FiO2 Intake & Output 01/31/22 02/01/22 02/01/22 18:59 06:59 18:59 Intake Total 1080 120 Balance 1080 120 Intake: Oral 1080 120 Other: Voiding Method Toilet # Voids 3 - Exam GENERAL EXAM: Alert, pleasant 68-year-old male, on 2 L nasal cannula, comfortable in no apparent distress. HEAD: Normocephalic. EYES: Normal reaction of pupils, equal size. NOSE: Clear with pink turbinates. THROAT: No erythema or exudates. NECK: No masses, no JVD. CHEST: No chest wall deformity. LUNGS: Equal air entry with crackles in the right lung base CVS: S1 and S2 normal with no audible murmur, regular rhythm. ABDOMEN: No hepatosplenomegaly, normal bowel sounds, no guarding or rigidity. SPINE: No scoliosis or deformity SKIN: No rashes CENTRAL NERVOUS SYSTEM: No focal deficits, tone is normal in all 4 extremities. EXTREMITIES: There is no peripheral edema. No clubbing, no cyanosis. Peripheral pulses are intact. - Labs CBC & Chem 7: 01/30/22 06:59 02/01/22 07:39 Labs: Abnormal Lab Results - Last 24 Hours (Table) 02/01/22 Range/Units 07:39 BUN 44 H (9-20) mg/dL Glucose 120 H (74-99) mg/dL Microbiology - Last 24 Hours (Table) 01/30/22 11:00 Gram Stain - Preliminary Sputum Sputum Culture - Preliminary Gram Neg Bacilli 01/29/22 17:00 Blood Culture - Preliminary Blood No Growth after 48 hours 01/29/22 16:45 Blood Culture - Preliminary Blood No Growth after 48 hours Assessment and Plan Plan: Recurrent pneumonia. The patient is having recurrent pneumonia/tracheobronchitis with pseudomonas and other gram-negative bacteria. Patient was treated recently for E. coli tracheal bronchitis/pneumonia with received inpatient and subsequent outpatient IV antibiotics. He is coming in for another bout of an infection with pseudomonas aeruginosa based on the most recent sputum sample. Currently on IV meropenem. Clinically stable, slightly improved Right-sided pleural effusion with patchy consolidation of the right lower lobe Acute on chronic hypoxic respiratory failure currently on 2 L of Oxymizer nasal cannula COPD maintain on Trelegy Ellipta on an outpatient basis Tracheobronchomalacia Recurrent respiratory tract infection with pseudomonas aeruginosa, E. coli, MRSA Right upper lobe pulmonary nodule avid on the previous PET scan and this was active on a PET scan and the patient was treated with SBR T Right renal mass being followed up on outpatient basis Infected 5 Leyden mutation Previous history of left lower extremity DVT Hypertension Chronic stage III kidney disease History of colonic perforation requiring colectomy and colostomy. Obstructive sleep apnea not using CPAP therapy Diverticulosis with previous history of diverticulitis Multiple hepatic cysts Plan Continue same treatment Clinically slightly improved Infectious diseases on the case Continue same antibiotics with IV meropenem no reported side effects to antibiotic treatment Continue DuoNeb about treatments [id number] The patient uses Trelegy Ellipta from home 1 puff a day, which should be able to allow the patient to use the same medication during his hospital stay. Awaiting the repeat sputum Ramsden and culture Pro calcitonin level is low at 0.19 Mucinex for cough and congestion We'll continue to follow
[2022-02-01] MEDS: MAGNESIUM OXIDE 400 MG TAB PO SCH (20:14)
[2022-02-01] MEDS: ALPRAZolam 0.5 MG TAB PO PRN (20:14)
--- NOTE | 2022-02-02 00:06 | P.PN ---
Subjective Progress Note Date: 01/31/22 Principal diagnosis: MDR Pseudomonas pneumonia Patient is a 76-year-old male with a past medical history significant for end-stage COPD history of recurrent pneumonia presented to hospital with increasing shortness of breath, hypoxemia with recent outpatient sputum culture positive for multidrug-resistant pseudomonas. On today's evaluation and that is 01/31/2022, the patient denies having any fever or any chills, the patient is feeling slightly comfortably, patient denies having any chest pain, contusion have a cough with occasional sputum, no hemoptysis. no abdominal pain or diarrhea Objective - Vital Signs Vital signs: Vital Signs Temp 97.6 F 01/31/22 07:24 Pulse 60 01/31/22 12:54 Resp 15 01/31/22 07:24 BP 143/69 01/31/22 07:24 Pulse Ox 96 01/31/22 08:52 FiO2 Intake & Output 01/30/22 01/31/22 01/31/22 18:59 06:59 18:59 Intake Total 1080 Balance 1080 Intake: Oral 1080 Other: Voiding Method Toilet # Voids 3 3 # Bowel Movements 1 - Exam GENERAL DESCRIPTION: An elderly male lying in bed in no distress RESPIRATORY SYSTEM: Unlabored breathing , course breath sounds bilaterally HEART: S1 S2 regular rate and rhythm , ABDOMEN: Soft , no tenderness EXTREMITIES: No edema feet - Labs CBC & Chem 7: 01/30/22 06:59 02/01/22 07:39 Labs: Microbiology - Last 24 Hours (Table) 01/30/22 11:00 Gram Stain - Preliminary Sputum Sputum Culture - Preliminary 01/29/22 16:45 Blood Culture - Preliminary Blood No Growth after 24 hours 01/29/22 17:00 Blood Culture - Preliminary Blood No Growth after 24 hours Assessment and Plan (1) Infection due to multidrug-resistant Pseudomonas aeruginosa Current Visit: Yes Status: Acute Code(s): A49.8 - OTHER BACTERIAL INFECTIONS OF UNSPECIFIED SITE; Z16.24 - RESISTANCE TO MULTIPLE ANTIBIOTICS SNOMED Code(s): 271380145 (2) Pneumonia Current Visit: Yes Status: Acute Code(s): J18.9 - PNEUMONIA, UNSPECIFIED ORGANISM SNOMED Code(s): 671505772 Plan: 1patient with positive sputum culture for multidrug-resistant Pseudomonas aeruginosa in this patient with end-stage COPD did have increased infiltrate right lower lobe concerning for possible pneumonia the patient not running any fever or elevated white count however keeping in mind his worsening respiratory symptoms and high risk of respiratory failure patient will need more aggressive treatment with antibiotic. 2patient seemed to have some clinical improvement and will continue with meropenem 1 g every 8 hours. Time with Patient: Less than 30
--- NOTE | 2022-02-02 00:07 | P.PN ---
Subjective Progress Note Date: 02/01/22 Principal diagnosis: MDR Pseudomonas pneumonia Patient is a 76-year-old male with a past medical history significant for end-stage COPD history of recurrent pneumonia presented to hospital with increasing shortness of breath, hypoxemia with recent outpatient sputum culture positive for multidrug-resistant pseudomonas. On today's evaluation and that is 02/01/2022, the patient remains to be afebrile, the patient is breathing comfortably on room air, patient denies hav ing any chest pain, contusion have a cough with occasional sputum, the patient denies nausea no vomiting no abdominal pain or diarrhea Objective - Vital Signs Vital signs: Vital Signs Temp 97.5 F L 02/01/22 14:00 Pulse 78 02/01/22 14:00 Resp 18 02/01/22 14:00 BP 137/70 02/01/22 08:00 Pulse Ox 97 02/01/22 14:00 FiO2 Intake & Output 01/31/22 02/01/22 02/01/22 18:59 06:59 18:59 Intake Total 1080 120 Balance 1080 120 Intake: Oral 1080 120 Other: Voiding Method Toilet # Voids 3 - Exam GENERAL DESCRIPTION: An elderly male lying in bed in no distress RESPIRATORY SYSTEM: Unlabored breathing , course breath sounds bilaterally HEART: S1 S2 regular rate and rhythm , ABDOMEN: Soft , no tenderness EXTREMITIES: No edema feet - Labs CBC & Chem 7: 01/30/22 06:59 02/01/22 07:39 Labs: Abnormal Lab Results - Last 24 Hours (Table) 02/01/22 Range/Units 07:39 BUN 44 H (9-20) mg/dL Glucose 120 H (74-99) mg/dL Microbiology - Last 24 Hours (Table) 01/30/22 11:00 Gram Stain - Preliminary Sputum Sputum Culture - Preliminary Gram Neg Bacilli 01/29/22 17:00 Blood Culture - Preliminary Blood No Growth after 48 hours 01/29/22 16:45 Blood Culture - Preliminary Blood No Growth after 48 hours Assessment and Plan (1) Infection due to multidrug-resistant Pseudomonas aeruginosa Current Visit: Yes Status: Acute Code(s): A49.8 - OTHER BACTERIAL INFECTIONS OF UNSPECIFIED SITE; Z16.24 - RESISTANCE TO MULTIPLE ANTIBIOTICS SNOMED Code(s): 455029266 (2) Pneumonia Current Visit: Yes Status: Acute Code(s): J18.9 - PNEUMONIA, UNSPECIFIED ORGANISM SNOMED Code(s): 859792542 Plan: 1patient with positive sputum culture for multidrug-resistant Pseudomonas aeruginosa in this patient with end-stage COPD did have increased infiltrate right lower lobe concerning for possible pneumonia the patient not running any fever or elevated white count however keeping in mind his worsening respiratory symptoms and high risk of respiratory failure patient will need more aggressive treatment with antibiotic. 2patient seemed to have some clinical improvement, repeat sputum culture showing gram-negative with the sensitivities pending, blood cultures so far negative, patient will continue with meropenem 1 g every 8 hours. Time with Patient: Less than 30
[2022-02-02] MEDS: PANTOPRAZOLE 40 MG TABLET PO SCH (06:35)
[2022-02-02] MEDS: SYMBICORT 80-4.5 MCG INHALER INHALATION SCH ×2 (07:43→21:26)
[2022-02-02] MEDS: IPRATROPIUM-ALBUTEROL 3 ML NEB INHALATION SCH ×4 (07:43→21:25)
[2022-02-02] MEDS: allopurinoL 100 MG TAB PO SCH (09:07)
[2022-02-02] MEDS: PSYLLIUM HUSK 100% 6 GM PACKET PO SCH ×2 (09:07→22:41)
[2022-02-02] MEDS: ASPIRIN 81 MG PO SCH (09:07)
[2022-02-02] MEDS: LACTOBACILLUS ACIDOPH & BULGAR 1 EACH PACKET PO SCH (09:07)
[2022-02-02] MEDS: ASCORBIC ACID 500 MG TAB PO SCH (09:08)
[2022-02-02] MEDS: METOPROLOL TARTRATE 25 MG TAB PO SCH ×2 (09:08→22:40)
[2022-02-02] MEDS: MEROPENEM 1 GM in SODIUM CHLORIDE 0.9% 100 ML IVPB SCH ×2 (09:08→15:53)
[2022-02-02] MEDS: LORATADINE 10 MG TAB PO SCH (09:08)
[2022-02-02] MEDS: CHOLECALCIFEROL 25 MCG (1000 IU) TABLET PO SCH (09:08)
[2022-02-02] MEDS: MONTELUKAST 10 MG TAB PO SCH (09:08)
[2022-02-02] MEDS: methylPREDNISolone SOD SUCCI 40 MG/ML 1 ML VIAL IV SCH (09:08)
[2022-02-02] MEDS: guaiFENesin 600 MG TABLET.ER PO SCH ×2 (09:08→22:40)
[2022-02-02] MEDS: LISINOPRIL-HCTZ 10-12.5 MG 1 EACH TAB PO SCH (09:17)
[2022-02-02] MEDS: DOXAZOSIN 4 MG TAB PO SCH (09:17)
--- NOTE | 2022-02-02 13:11 | P.PN ---
Subjective Progress Note Date: 02/02/22 This is another admission for this 76-year-old mentation was recurrent pneumonias and tracheal bronchitis with gram-negative bacteria specifically pseudomonas. The patient has history of COPD, lung mass that was treated with SBR T and history of tracheal bronchomalacia. He has had multiple pneumonias a nd multiple hospitalizations in the past for the same. During the most recent hospitalization of November 2021, the patient was treated for an acute gram- negative pneumonia and his sputum culture was positive for E. coli. Note that the patient has had previous infections with Pseudomonas, stenotrophomonas, and MRSA. After his E. coli infection, the patient was treated with antibiotics and the patient also received outpatient antibiotics with Ceftin. Subsequently, he was given a midline/PICC line and he was given a course of Zosyn on outpatient basis. After completion of the antibiotic course, the patient started having true dyspnea and congestion and the patient has outpatient sputum showed pseudomonas aeruginosa and the patient was hospitalized. A chest x-ray showed a right lower lobe pulmonary infiltrate and right-sided pleural effusion. Currently is on IV meropenem. The WBC count of 8.8 with a hemoglobin of 10.4 and a platelet count of 358. D-dimer is 2.64. BUN is at 40 with a creatinine of 1.3 and a sodium level is at 142. The pro-calcitonin level is at 0.19. Covid 19 testing is negative. Influenza A and B are both negative. . On 01/31/2022, the patient's condition is stable. The patient remains on IV meropenem. The patient on DuoNeb about treatments [id number] and IV Solu- Medrol. Doing well. No new complaints. No fever or chills. The pro-calciton in level was at 0.19. The vital screening was negative. On 02/01/2022, the patient remains on IV meropenem. He is active. No fever or chills. Producing sputum. Repeat sputum sample was collected and is showing gram-negative bacillus. Remains on bronchodilators. He remains on IV Solu- Medrol 40 mg every 24 hours. No other complaints otherwise for now. Vitals are all stable. No side effects of the antibiotics. No antibiotic toxicity. BUN is 44 with a creatinine of 1.1 and sodium level is at 139. Pro-calcitonin level is at 0.19. 02/02/2022, the patient continues to be on IV. Sputum Gram stain and culture showing gram-negative bacillus. The most recent sputum culture showed pseu domonas aeruginosa and antibiotic adjustments were made accordingly. Infectious diseases on the case. The patient is able to take antibiotic without any major side effects. Is also on IV Solu-Medrol. He is on bronchodilators. His cough is congested. No chest pain. No hemoptysis. No pleurisy. No altered mentation. No other significant events overnight. Objective - Vital Signs Vital signs: Vital Signs Temp 97.8 F 02/02/22 08:00 Pulse 78 02/02/22 11: Resp 17 02/02/22 08:00 BP 154/76 02/02/22 08:00 Pulse Ox 97 02/02/22 08:00 FiO2 28 02/01/22 18:59 Intake & Output 02/01/22 02/02/22 02/02/22 18:59 06:59 18:59 Other: Voiding Method Toilet # Voids 2 2 - Exam GENERAL EXAM: Alert, pleasant 68-year-old male, on 2 L nasal cannula, comf ortable in no apparent distress. HEAD: Normocephalic. EYES: Normal reaction of pupils, equal size. NOSE: Clear with pink turbinates. THROAT: No erythema or exudates. NECK: No masses, no JVD. CHEST: No chest wall deformity. LUNGS: Equal air entry with crackles in the right lung base CVS: S1 and S2 normal with no audible murmur, regular rhythm. ABDOMEN: No hepatosplenomegaly, normal bowel sounds, no guarding or rigidity. SPINE: No scoliosis or deformity SKIN: No rashes CENTRAL NERVOUS SYSTEM: No focal deficits, tone is normal in all 4 extremities. EXTREMITIES: There is no peripheral edema. No clubbing, no cyanosis. Peripheral pulses are intact. - Labs CBC & Chem 7: 01/30/22 06:59 02/01/22 07:39 Labs: Abnormal Lab Results - Last 24 Hours (Table) 02/02/22 Range/Units 04:40 Procalcitonin 0.14 H (0.02-0.09) ng/mL Microbiology - Last 24 Hours (Table) 01/29/22 17:00 Blood Culture - Preliminary Blood No Growth after 72 hours 01/29/22 16:45 Blood Culture - Preliminary Blood No Growth after 72 hours 01/30/22 11:00 Gram Stain - Preliminary Sputum Sputum Culture - Preliminary Gram Neg Bacilli Assessment and Plan Plan: Recurrent pneumonia. The patient is having recurrent pneumonia/tracheobronchitis with pseudomonas and other gram-negative bacteria. Patient was treated recently for E. coli tracheal bronchitis/pneumonia with received inpatient and subsequent outpatient IV antibiotics. He is coming in f or another bout of an infection with pseudomonas aeruginosa based on the most recent sputum sample. Currently on IV meropenem. Clinically stable, slightly improved Right-sided pleural effusion with patchy consolidation of the right lower lobe Acute on chronic hypoxic respiratory failure currently on 2 L of O2 nasal cannula COPD maintain on Trelegy Ellipta on an outpatient basis Tracheobronchomalacia Recurrent respiratory tract infection with pseudomonas aeruginosa, E. coli, MRSA Right upper lobe pulmonary nodule avid on the previous PET scan and this was active on a PET scan and the patient was treated with SBR T Right renal mass being followed up on outpatient basis Infected 5 Leyden mutation Previous history of left lower extremity DVT Hypertension Chronic stage III kidney disease History of colonic perforation requiring colectomy and colostomy. Obstructive sleep apnea not using CPAP therapy Diverticulosis with previous history of diverticulitis Multiple hepatic cysts Plan Seeing the results of the repeat sputum Gram stain and culture. Currently showing gram-negative bacteria Continue same treatment Continue same antibiotics with IV meropenem no reported side effects to antibiotic treatment Continue DuoNeb about treatments [id number] The patient uses Trelegy Ellipta from home 1 puff a day, which should be able to allow the patient to use the same medication during his hospital stay. Pro calcitonin level is low at 0.19 Mucinex for cough and congestion We'll continue to follow
--- NOTE | 2022-02-02 15:49 | P.PN ---
Subjective Progress Note Date: 02/02/22 Principal diagnosis: MDR Pseudomonas pneumonia Patient is a 76-year-old male with a past medical history significant for end-stage COPD history of recurrent pneumonia presented to hospital with increasing shortness of breath, hypoxemia with recent outpatient sputum culture positive for multidrug-resistant pseudomonas. On today's evaluation and that is 02/02/2022, the patient continues to be afebrile, the patient is breathing comfortably on room air, patient denies h aving any chest pain, the patient cough has decreased in intensity with occasional sputum the patient denies having any nausea no vomiting no abdominal pain or diarrhea Objective - Vital Signs Vital signs: Vital Signs Temp 97.8 F 02/02/22 14:00 Pulse 76 02/02/22 14:00 Resp 18 02/02/22 14:00 BP 119/73 02/02/22 14:00 Pulse Ox 93 L 02/02/22 14:00 FiO2 28 02/01/22 18:59 Intake & Output 02/01/22 02/02/22 02/02/22 18:59 06:59 18:59 Other: Voiding Method Toilet # Voids 2 2 - Exam GENERAL DESCRIPTION: An elderly male lying in bed in no distress RESPIRATORY SYSTEM: Unlabored breathing , course breath sounds bilaterally HEART: S1 S2 regular rate and rhythm , ABDOMEN: Soft , no tenderness EXTREMITIES: No edema feet - Labs CBC & Chem 7: 01/30/22 06:59 02/01/22 07:39 Labs: Abnormal Lab Results - Last 24 Hours (Table) 02/02/22 Range/Units 04:40 Procalcitonin 0.14 H (0.02-0.09) ng/mL Microbiology - Last 24 Hours (Table) 01/29/22 17:00 Blood Culture - Preliminary Blood No Growth after 72 hours 01/29/22 16:45 Blood Culture - Preliminary Blood No Growth after 72 hours 01/30/22 11:00 Gram Stain - Preliminary Sputum Sputum Culture - Preliminary Gram Neg Bacilli Assessment and Plan (1) Infection due to multidrug-resistant Pseudomonas aeruginosa Current Visit: Yes Status: Acute Code(s): A49.8 - OTHER BACTERIAL INFECTIONS OF UNSPECIFIED SITE; Z16.24 - RESISTANCE TO MULTIPLE ANTIBIOTICS SNOMED Code(s): 936471531 (2) Pneumonia Current Visit: Yes Status: Acute Code(s): J18.9 - PNEUMONIA, UNSPECIFIED ORGANISM SNOMED Code(s): 974110772 Plan: 1patient with positive sputum culture for multidrug-resistant Pseudomonas aeruginosa in this patient with end-stage COPD did have increased infiltrate right lower lobe concerning for possible pneumonia the patient not running any fever or elevated white count however keeping in mind his worsening respiratory symptoms and high risk of respiratory failure patient will need more aggressive treatment with antibiotic. 2patient slowly clinically improving, repeat sputum culture showing gram- negative with the sensitivities pending, the patient blood cultures so far negat hugh, patient will continue with meropenem 1 g every 8 hours, PICC line for outpatient IV antibiotics has been ordered Time with Patient: Less than 30
--- NOTE | 2022-02-02 18:39 | P.PN ---
Progress Note - Text Progress Note Date: 02/02/22 Chief Complaint: Congested cough This is a 76-year-old patient who follows with Dr. Keshawn Suarez. Chronic stable medical conditions include DVT, GERD, hypertension, uses CPAP, home oxygen 2 L , factor 5 Leyden, bronchial silicone stent now removed, prior history of hemodialysis, lung cancer diagnosed and treated in [place]. Colostomy. On April 12 2021, in [place] - bowel perforation -had 4 inches of large bowel removed. - colostomy. During that hospitalization he also pneumonia. Then in July again had a lung infection. - port placed / 2 weeks of antibiotics. October 2021 admitted to [facility] in treated with ceftazidime. Following discharge diagnosed with E. coli on November 20 and treated with antibiotics by Dr. Cortez. Patient discharged from the hospital on December 12 with drug- resistant E. coli with 2 weeks of IV Invanz. A weak following the patient started happening this very symptoms again. Congested cough. Tired. More short of breath. More limited exercise tolerance. No fever no chills. Fresh sputum samples were called. Came back positive for multidrug resistance Pseudomonas aeruginosa, sensitive to imipenem. Appetite is fair. Slightly loose stools. No abdominal pain. No fever no chills. 01/30/2022: Admitted with Pseudomonas pneumonia. On IV meropenem. Some congested cough and expectoration. Some sputum. Tolerating diet. Daughter visiting. 01/31/2022: Sitting at the edge of the bed. Some congested cough. Oral intake fair. Some sputum production. On IV meropenem. 02/01/2022: Congested cough present. Some sputum. Remains on IV meropenem. Oral intake good. Up to the bathroom. Patient had been having liquid stools. Colostomy pouch. More formed after being started on Metamucil. 02/02/2022: Sitting on edge of the bed. Some congested cough. Tolerating diet. Daughter the bedside. On IV meropenem. Repeat sputum culture pending. Active Medications Acetaminophen (Acetaminophen Tab 325 Mg Tab) 650 mg PO Q6HR PRN PRN Reason: Mild Pain or Fever > 100.5 Albuterol/Ipratropium (Ipratropium-Albuterol 3 Ml Neb) 3 ml INHALATION RT-QID [facility] Last Admin: 02/02/22 15:33 Dose: 3 ml Albuterol/Ipratropium (Ipratropium-Albuterol 3 Ml Neb) 3 ml INHALATION RT-Q2H PRN PRN Reason: Shortness Of Breath Or Wheezing Allopurinol (Allopurinol 100 Mg Tab) 100 mg PO DAILY [facility] Last Admin: 02/02/22 09:07 Dose: 100 mg Alprazolam (Alprazolam 0.5 Mg Tab) 0.5 mg PO TID PRN PRN Reason: Anxiety Last Admin: 02/01/22 20:14 Dose: 0.5 mg Ascorbic Acid (Ascorbic Acid 500 Mg Tab) 1,000 mg PO DAILY [facility] Last Admin: 02/02/22 09:08 Dose: 1,000 mg Aspirin (Aspirin 81 Mg) 81 mg PO DAILY [facility] Last Admin: 02/02/22 09:07 Dose: 81 mg Budesonide/Formoterol Fumarate (Symbicort 80-4.5 Mcg Inhaler) 2 puff INHALATION RT-BID [facility] Last Admin: 02/02/22 07:43 Dose: Not Given Calcium Carbonate/Glycine (Calcium Carbonate 500 Mg Chewable) 1,000 mg PO Q4HR PRN PRN Reason: Dyspepsia Cholecalciferol (Cholecalciferol 25 Mcg (1000 Iu) Tablet) 50 mcg PO DAILY [facility] Last Admin: 02/02/22 09:08 Dose: 50 mcg Doxazosin Mesylate (Doxazosin 4 Mg Tab) 4 mg PO DAILY [facility] Last Admin: 02/02/22 09:17 Dose: 4 mg Guaifenesin (Guaifenesin 600 Mg Tablet.Er) 600 mg PO BID [facility] Last Admin: 02/02/22 09:08 Dose: 600 mg Lisinopril/HCTZ (Lisinopril-Hctz 10-12.5 Mg 1 Each Tab) 0.5 each PO DAILY [facility] Last Admin: 02/02/22 09:17 Dose: 0.5 each Meropenem 1 gm/ Sodium (Chloride) 100 mls @ 33.3 mls/hr IVPB Q8H [facility]; Protocol Last Admin: 02/02/22 15:53 Dose: 33.3 mls/hr Lactobacillus Acidoph/Bulgaricus (Lactobacillus Acidoph & Bulgar 1 Each Packet) 1 each PO DAILY [facility] Last Admin: 02/02/22 09:07 Dose: 1 each Lactulose (Lactulose 20 Gm/30 Ml Cup) 20 gm PO DAILY PRN PRN Reason: Constipation Loratadine (Loratadine 10 Mg Tab) 10 mg PO DAILY [facility] Last Admin: 02/02/22 09:08 Dose: 10 mg Magnesium Oxide (Magnesium Oxide 400 Mg Tab) 400 mg PO HS [facility] Last Admin: 02/01/22 20:14 Dose: 400 mg Methylprednisolone Sodium Succinate (Methylprednisolone Sod Succi 40 Mg/Ml 1 Ml Vial) 40 mg IV DAILY [facility] Last Admin: 02/02/22 09:08 Dose: 40 mg Metoprolol Tartrate (Metoprolol Tartrate 25 Mg Tab) 25 mg PO BID [facility] Last Admin: 02/02/22 09:08 Dose: 25 mg Montelukast Sodium (Montelukast 10 Mg Tab) 10 mg PO DAILY [facility] Last Admin: 02/02/22 09:08 Dose: 10 mg Naloxone HCl (Naloxone 0.4 Mg/Ml 1 Ml Vial) 0.2 mg IV Q2M PRN PRN Reason: Opioid Reversal Ondansetron HCl (Ondansetron 4 Mg/2 Ml Vial) 4 mg IVP Q8HR PRN PRN Reason: Nausea And Vomiting Pantoprazole Sodium (Pantoprazole 40 Mg Tablet) 40 mg PO AC-BRKFST [facility] Last Admin: 02/02/22 06:35 Dose: 40 mg Psyllium Hydrophilic Mucilloid (Psyllium Husk 100% 6 Gm Packet) 6 gm PO BID [facility] Last Admin: 02/02/22 09:07 Dose: 6 gm Past medical history to include: Factor V Leyden mutation, COPD, DVT, GERD, hypertension, COPD, Pseudomonas lung infection, uses CPAP, 2 L home oxygen when necessary, diverticulitis, bronchial silicone stent now removed, hemodialysis now discontinued CK D stage III, right lung solid nodule with radiation treatment. Social history: Lives alone. Smoked 1-2 packs a day for 50 years stopped in 2012. Did drink significant alcohol stopped some time ago. Retired from [employer]. Family history: Colon cancer Physical examination: VITAL SIGNS: 97.8, 76, 18, 109/73, 93% on 2 L GENERAL: Sitting of the edge of the bed, slight short of breath EYES: Pupils equal. Conjunctiva normal. HEENT: External appearance of nose and ears normal, oral cavity grossly normal. NECK: JVD not raised; masses not palpable. HEART: First and second heart sounds are normal; no edema. LUNGS:[ Respiratory rate increased; decreased breath sounds, some wheezing. ABDOMEN: Soft, nontender, liver spleen not palpable, no masses palpable. Colostomy pouch PSYCH: Alert and oriented x3; mood and affect normal. MUSCULOSKELETAL:No Clubbing/cyanosis;muscles-grossly intact. OA INVESTIGATIONS, reviewed in the clinical context: February 02: Pro-calcitonin 0.14 White count 8.8 hemoglobin 10.4 potassium 5.5 creatinine 1.3 White count 9.9 hemoglobin 11.5 platelets 310 potassium 4.6 BUN 37 creatinine 1.08 COVID 19/influenza type A/diabetes: Not detected Chest x-ray film personally reviewed by me-right lower lobe infiltrate with some confusion EKG tracing personally reviewed by me-normal sinus rhythm. Right bundle branch block. Previous labs: Sputum culture [January 23]: Pseudomonas aeruginosa Computed tomography scan chest abdomen pelvis without contrast: [January 25]: Right pleural effusion with right lower lobe patchy infiltrate. Worse September 13. Colonic diverticulosis. Assessment plan: -Acute right basal pneumonia in a patient with Recurrent pneumonia in a patient with underlying COPD. recent cultures have been positive sputum positive for stenitophomas maltophilia, MRSA, E. coli. And now on January 23 positive for pseudomonas aeruginosa. IV meropenem. PICC line ordered. Follow with pulmonary and ID.. -Acute COPD exacerbation in a previous smoker: DuoNeb. oral prednisone. Perforomist. Nebulized steroids. -Chronic hypoxic respiratory failure from COPD Home oxygen 2 L -Hyperuricemia Allopurinol 100 mg a day -Factor V Leyden mutation -Right upper lung nodule treated with the radiation Follow with pulmonary -Essential hypertension Lopressor 25 mg twice a day -BPH Cardura 4 mg a day -Anxiety not otherwise specified Xanax when necessary -Chronic kidney disease likely nephrosclerosis stage III Follow renal function -Hyperkalemia from CK D Low potassium diet. Lokelma for 3 doses. IV meropenem. Bronchodilators. IV [id number] to prednisone. Renal diet. Discussed with patient.
[2022-02-02] MEDS: MAGNESIUM OXIDE 400 MG TAB PO SCH (22:40)
[2022-02-02] MEDS: ALPRAZolam 0.5 MG TAB PO PRN (22:42)
[2022-02-03] MEDS: MEROPENEM 1 GM in SODIUM CHLORIDE 0.9% 100 ML IVPB SCH ×3 (00:15→15:08)
[2022-02-03 05:20] LABS: Basophils % (A) 0 %; Eosinophils % (A) 0 %; HCT 34.9 % (39.0-53.0); HGB 11.5 gm/dL (13.0-17.5); Hypochromasia Slight; Lymphocytes # (A) 1.8 k/uL (1.0-4.8); Lymphocytes % (A) 15 %; MCH 31.4 pg (25.0-35.0); Mean Platelet Volume 8.8; Monocytes # (A) 0.6 k/uL (0-1.0); Monocytes % (A) 5 %; Neutrophils # (A) 9.2 k/uL (1.3-7.7); Neutrophils % (A) 79 %; Platelet Count 341 k/uL (150-450); RBC 3.67 m/uL (4.30-5.90); RDW 14.6 % (11.5-15.5); WBC 11.8 k/uL (3.8-10.6)
[2022-02-03 05:47] LABS: African American GFR (CKD) 71 (>60 ml/min/1.73 sqM); Anion Gap 5 mmol/L; Blood Urea Nitrogen 46 mg/dL (9-20); Calcium 9.3 mg/dL (8.4-10.2); Carbon Dioxide 29 mmol/L (22-30); Chloride 104 mmol/L (98-107); Glucose 89 mg/dL (74-99); Non-African American GFR(CKD) 62 (>60 ml/min/1.73 sqM); Potassium 4.8 mmol/L (3.5-5.1); Sodium 138 mmol/L (137-145)
[2022-02-03] MEDS: PANTOPRAZOLE 40 MG TABLET PO SCH (06:31)
[2022-02-03] MEDS: IPRATROPIUM-ALBUTEROL 3 ML NEB INHALATION SCH ×3 (07:17→16:06)
[2022-02-03] MEDS: ASCORBIC ACID 500 MG TAB PO SCH (08:22)
[2022-02-03] MEDS: guaiFENesin 600 MG TABLET.ER PO SCH (08:22)
[2022-02-03] MEDS: ASPIRIN 81 MG PO SCH (08:22)
[2022-02-03] MEDS: CHOLECALCIFEROL 25 MCG (1000 IU) TABLET PO SCH (08:22)
[2022-02-03] MEDS: allopurinoL 100 MG TAB PO SCH (08:23)
[2022-02-03] MEDS: DOXAZOSIN 4 MG TAB PO SCH (08:23)
[2022-02-03] MEDS: MONTELUKAST 10 MG TAB PO SCH (08:23)
[2022-02-03] MEDS: LACTOBACILLUS ACIDOPH & BULGAR 1 EACH PACKET PO SCH (08:23)
[2022-02-03] MEDS: METOPROLOL TARTRATE 25 MG TAB PO SCH (08:23)
[2022-02-03] MEDS: PSYLLIUM HUSK 100% 6 GM PACKET PO SCH (08:23)
[2022-02-03] MEDS: LORATADINE 10 MG TAB PO SCH (08:23)
[2022-02-03] MEDS: LISINOPRIL-HCTZ 10-12.5 MG 1 EACH TAB PO SCH (08:23)
[2022-02-03] MEDS ORDERED: predniSONE 20 MG TAB PO SCH (09:00)
[2022-02-03] MEDS ORDERED: LEVOFLOXACIN 750 MG TAB PO SCH (12:00)
[2022-02-03] MEDS ORDERED: LIDOCAINE 1% INJ 10MG/ML (5 ML VIAL-PF) SQ ONE (13:47)
--- NOTE | 2022-02-03 14:29 | P.PN ---
Progress Note - Text Progress Note Date: 02/03/22 Chief Complaint: Congested cough This is a 76-year-old patient who follows with Dr. Keshawn Suarez. Chronic stable medical conditions include DVT, GERD, hypertension, uses CPAP, home oxygen 2 L , factor 5 Leyden, bronchial silicone stent now removed, prior history of hemodialysis, lung cancer diagnosed and treated in [place]. Colostomy. On April 12 2021, in [place] - bowel perforation -had 4 inches of large bowel removed. - colostomy. During that hospitalization he also pneumonia. Then in July again had a lung infection. - port placed / 2 weeks of antibiotics. October 2021 admitted to [facility] in treated with ceftazidime. Following discharge diagnosed with E. coli on November 20 and treated with antibiotics by Dr. Cortez. Patient discharged from the hospital on December 12 with drug- resistant E. coli with 2 weeks of IV Invanz. A weak following the patient started happening this very symptoms again. Congested cough. Tired. More short of breath. More limited exercise tolerance. No fever no chills. Fresh sputum samples were called. Came back positive for multidrug resistance Pseudomonas aeruginosa, sensitive to imipenem. Appetite is fair. Slightly loose stools. No abdominal pain. No fever no chills. 01/30/2022: Admitted with Pseudomonas pneumonia. On IV meropenem. Some congested cough and expectoration. Some sputum. Tolerating diet. Daughter visiting. 01/31/2022: Sitting at the edge of the bed. Some congested cough. Oral intake fair. Some sputum production. On IV meropenem. 02/01/2022: Congested cough present. Some sputum. Remains on IV meropenem. Oral intake good. Up to the bathroom. Patient had been having liquid stools. Colostomy pouch. More formed after being started on Metamucil. 02/02/2022: Sitting on edge of the bed. Some congested cough. Tolerating diet. Daughter the bedside. On IV meropenem. Repeat sputum culture pending. 02/03/2022: Ambulatory in the hallway. Without oxygen. Pulse ox around 94%. Congested cough. Pending PICC line. Active Medications Acetaminophen (Acetaminophen Tab 325 Mg Tab) 650 mg PO Q6HR PRN PRN Reason: Mild Pain or Fever > 100.5 Albuterol/Ipratropium (Ipratropium-Albuterol 3 Ml Neb) 3 ml INHALATION RT-QID [facility] Last Admin: 02/03/22 11:03 Dose: 3 ml Albuterol/Ipratropium (Ipratropium-Albuterol 3 Ml Neb) 3 ml INHALATION RT-Q2H PRN PRN Reason: Shortness Of Breath Or Wheezing Allopurinol (Allopurinol 100 Mg Tab) 100 mg PO DAILY [facility] Last Admin: 02/03/22 08:23 Dose: 100 mg Alprazolam (Alprazolam 0.5 Mg Tab) 0.5 mg PO TID PRN PRN Reason: Anxiety Last Admin: 02/02/22 22:42 Dose: 0.5 mg Ascorbic Acid (Ascorbic Acid 500 Mg Tab) 1,000 mg PO DAILY [facility] Last Admin: 02/03/22 08:22 Dose: 1,000 mg Aspirin (Aspirin 81 Mg) 81 mg PO DAILY [facility] Last Admin: 02/03/22 08:22 Dose: 81 mg Calcium Carbonate/Glycine (Calcium Carbonate 500 Mg Chewable) 1,000 mg PO Q4HR PRN PRN Reason: Dyspepsia Cholecalciferol (Cholecalciferol 25 Mcg (1000 Iu) Tablet) 50 mcg PO DAILY [facility] Last Admin: 02/03/22 08:22 Dose: 50 mcg Doxazosin Mesylate (Doxazosin 4 Mg Tab) 4 mg PO DAILY [facility] Last Admin: 02/03/22 08:23 Dose: 4 mg Guaifenesin (Guaifenesin 600 Mg Tablet.Er) 600 mg PO BID [facility] Last Admin: 02/03/22 08:22 Dose: 600 mg Lisinopril/HCTZ (Lisinopril-Hctz 10-12.5 Mg 1 Each Tab) 0.5 each PO DAILY [facility] Last Admin: 02/03/22 08:23 Dose: 0.5 each Meropenem 1 gm/ Sodium (Chloride) 100 mls @ 33.3 mls/hr IVPB Q8H [facility]; Protocol Last Admin: 02/03/22 08:40 Dose: 33.3 mls/hr Lactobacillus Acidoph/Bulgaricus (Lactobacillus Acidoph & Bulgar 1 Each Packet) 1 each PO DAILY [facility] Last Admin: 02/03/22 08:23 Dose: 1 each Lactulose (Lactulose 20 Gm/30 Ml Cup) 20 gm PO DAILY PRN PRN Reason: Constipation Levofloxacin (Levofloxacin 750 Mg Tab) 750 mg PO DAILY [facility]; Protocol Stop: 02/03/22 18:00 Levofloxacin (Levofloxacin 750 Mg Tab) 750 mg PO Q48H [facility]; Protocol Loratadine (Loratadine 10 Mg Tab) 10 mg PO DAILY [facility] Last Admin: 02/03/22 08:23 Dose: 10 mg Magnesium Oxide (Magnesium Oxide 400 Mg Tab) 400 mg PO HS [facility] Last Admin: 02/02/22 22:40 Dose: 400 mg Metoprolol Tartrate (Metoprolol Tartrate 25 Mg Tab) 25 mg PO BID [facility] Last Admin: 02/03/22 08:23 Dose: 25 mg Montelukast Sodium (Montelukast 10 Mg Tab) 10 mg PO DAILY [facility] Last Admin: 02/03/22 08:23 Dose: 10 mg Naloxone HCl (Naloxone 0.4 Mg/Ml 1 Ml Vial) 0.2 mg IV Q2M PRN PRN Reason: Opioid Reversal Ondansetron HCl (Ondansetron 4 Mg/2 Ml Vial) 4 mg IVP Q8HR PRN PRN Reason: Nausea And Vomiting Pantoprazole Sodium (Pantoprazole 40 Mg Tablet) 40 mg PO AC-BRKFST [facility] Last Admin: 02/03/22 06:31 Dose: 40 mg Prednisone (Prednisone 20 Mg Tab) 60 mg PO DAILY [facility] Last Admin: 02/03/22 08:23 Dose: 60 mg Psyllium Hydrophilic Mucilloid (Psyllium Husk 100% 6 Gm Packet) 6 gm PO BID [facility] Last Admin: 02/03/22 08:23 Dose: 6 gm Past medical history to include: Factor V Leyden mutation, COPD, DVT, GERD, hypertension, COPD, Pseudomonas lung infection, uses CPAP, 2 L home oxygen when necessary, diverticulitis, bronchial silicone stent now removed, hemodialysis now discontinued CK D stage III, right lung solid nodule with radiation treatment. Social history: Lives alone. Smoked 1-2 packs a day for 50 years stopped in 2012. Did drink significant alcohol stopped some time ago. Retired from [employer]. Family history: Colon cancer Physical examination: VITAL SIGNS: 97.4, 72, 17, 134-73, 95% on 2 L GENERAL: slight short of breath EYES: Pupils equal. Conjunctiva normal. HEENT: External appearance of nose and ears normal, oral cavity grossly normal. NECK: JVD not raised; masses not palpable. HEART: First and second heart sounds are normal; no edema. LUNGS:[ Respiratory rate increased; decreased breath sounds, some wheezing. ABDOMEN: Soft, nontender, liver spleen not palpable, no masses palpable. Colostomy pouch PSYCH: Alert and oriented x3; mood and affect normal. MUSCULOSKELETAL:No Clubbing/cyanosis;muscles-grossly intact. OA INVESTIGATIONS, reviewed in the clinical context: February 03: White count 11.8 hemoglobin 9.5 potassium 4.8 creatinine 1.14 February 02: Pro-calcitonin 0.14 White count 8.8 hemoglobin 10.4 potassium 5.5 creatinine 1.3 White count 9.9 hemoglobin 11.5 platelets 310 potassium 4.6 BUN 37 creatinine 1.08 COVID 19/influenza type A/diabetes: Not detected Chest x-ray film personally reviewed by me-right lower lobe infiltrate with some confusion EKG tracing personally reviewed by me-normal sinus rhythm. Right bundle branch block. Previous labs: Sputum culture [January 23]: Pseudomonas aeruginosa Computed tomography scan chest abdomen pelvis without contrast: [January 25]: Right pleural effusion with right lower lobe patchy infiltrate. Worse 10 September 13. Colonic diverticulosis. Assessment plan: -Acute right basal pneumonia in a patient with Recurrent pneumonia in a patient with underlying COPD. recent cultures have been positive sputum positive for stenitophomas maltophilia, MRSA, E. coli. And now on January 23 positive for pseudomonas aeruginosa. IV meropenem. PICC line ordered. Follow with pulmonary and ID.. -Acute COPD exacerbation in a previous smoker: Better DuoNeb. oral prednisone. Perforomist. Nebulized steroids. -Chronic hypoxic respiratory failure from COPD Home oxygen 2 L -Hyperuricemia Allopurinol 100 mg a day -Factor V Leyden mutation -Right upper lung nodule treated with the radiation Follow with pulmonary -Essential hypertension Lopressor 25 mg twice a day -BPH Cardura 4 mg a day -Anxiety not otherwise specified Xanax when necessary -Chronic kidney disease likely nephrosclerosis stage III Follow renal function -Hyperkalemia from CK D Low potassium diet. Lokelma for 3 doses. IV meropenem. Bronchodilators. prednisone. Renal diet. Pending PICC line placement and home IV antibiotics and arrangement
--- NOTE | 2022-02-03 15:00 | P.DS ---
Providers Date of admission: 01/29/22 17:58 Expected date of discharge: 02/03/22 Attending physician: Brodie Cervantes Consults: 01/29/22 17:53 Consult Physician Routine Consulting Provider: Ramona Cortez Consult Reason/Comments: pneumonia, pleural effusion, copd Do you want consulting provider notified?: Yes, Notify in am Consult Physician Routine Consulting Provider: Leandro Castillo Consult Reason/Comments: multi drug resistant pseudomonas Do you want consulting provider notified?: Yes, Notify in am Primary care physician: Keshawn Suarez MD Hospital Course: Chief Complaint: Congested cough This is a 76-year-old patient who follows with Dr. Keshawn Suarez. Chronic stable medical conditions include DVT, GERD, hypertension, uses CPAP, home oxygen 2 L , factor 5 Leyden, bronchial silicone stent now removed, prior history of hemodialysis, lung cancer diagnosed and treated in [place]. Colostomy. On April 12 2021, in [place] - bowel perforation -had 4 inches of large bowel removed. - colostomy. During that hospitalization he also pneumonia. Then in July again had a lung infection. - port placed / 2 weeks of antibiotics. October 2021 admitted to [facility] in treated with ceftazidime. Following discharge diagnosed with E. coli on November 20 and treated with antibiotics by Dr. Cortez. Patient discharged from the hospital on December 12 with drug- resistant E. coli with 2 weeks of IV Invanz. A weak following the patient started happening this very symptoms again. Congested cough. Tired. More short of breath. More limited exercise tolerance. No fever no chills. Fresh sputum samples were called. Came back positive for multidrug resistance Pseudomonas aeruginosa, sensitive to imipenem. Appetite is fair. Slightly loose stools. No abdominal pain. No fever no chills. 01/30/2022: Admitted with Pseudomonas pneumonia. On IV meropenem. Some congested cough and expectoration. Some sputum. Tolerating diet. Daughter visiting. 01/31/2022: Sitting at the edge of the bed. Some congested cough. Oral intake fair. Some sputum production. On IV meropenem. 02/01/2022: Congested cough present. Some sputum. Remains on IV meropenem. Oral intake good. Up to the bathroom. Patient had been having liquid stools. Colostomy pouch. More formed after being started on Metamucil. 02/02/2022: Sitting on edge of the bed. Some congested cough. Tolerating diet. Daughter the bedside. On IV meropenem. Repeat sputum culture pending. 02/03/2022: Ambulatory in the hallway. . Pulse ox around 94%. Congested co ugh. PICC line placed. IV meropenem for home approved for every 8 hours. Discussed with transplant case manager. Discussion and discharge planning more than 35 minutes Past medical history to include: Factor V Leyden mutation, COPD, DVT, GERD, hypertension, COPD, Pseudomonas lung infection, uses CPAP, 2 L home oxygen when necessary, diverticulitis, bronchial silicone stent now removed, hemodialysis now discontinued CK D stage III, right lung solid nodule with radiation treatment. Social history: Lives alone. Smoked 1-2 packs a day for 50 years stopped in 2012. Did drink significant alcohol stopped some time ago. Retired from [employer]. Family history: Colon cancer Physical examination: VITAL SIGNS: 97.4, 72, 17, 134-73, 95% on 2 L GENERAL: slight short of breath EYES: Pupils equal. Conjunctiva normal. HEENT: External appearance of nose and ears normal, oral cavity grossly normal. NECK: JVD not raised; masses not palpable. HEART: First and second heart sounds are normal; no edema. LUNGS:[ Respiratory rate increased; decreased breath sounds, some wheezing. ABDOMEN: Soft, nontender, liver spleen not palpable, no masses palpable. Colostomy pouch PSYCH: Alert and oriented x3; mood and affect normal. MUSCULOSKELETAL:No Clubbing/cyanosis;muscles-grossly intact. OA INVESTIGATIONS, reviewed in the clinical context: February 03: White count 11.8 hemoglobin 9.5 potassium 4.8 creatinine 1.14 February 02: Pro-calcitonin 0.14 White count 8.8 hemoglobin 10.4 potassium 5.5 creatinine 1.3 White count 9.9 hemoglobin 11.5 platelets 310 potassium 4.6 BUN 37 creatinine 1.08 COVID 19/influenza type A/diabetes: Not detected Chest x-ray film personally reviewed by me-right lower lobe infiltrate with some confusion EKG tracing personally reviewed by me-normal sinus rhythm. Right bundle branch block. Previous labs: Sputum culture [January 23]: Pseudomonas aeruginosa Computed tomography scan chest abdomen pelvis without contrast: [January 25]: Right pleural effusion with right lower lobe patchy infiltrate. Worse 10 Dorcas 8. Colonic diverticulosis. Assessment plan: -Acute right basal pneumonia in a patient with Recurrent pneumonia in a patient with underlying COPD. recent cultures have been positive sputum positive for stenitophomas maltophilia, MRSA, E. coli. And now on January 23 positive for pseudomonas aeruginosa. IV meropenem every 8. PICC line . Follow with pulmonary and ID.. -Acute COPD exacerbation in a previous smoker: Better DuoNeb. oral prednisone. Perforomist. Nebulized steroids. -Chronic hypoxic respiratory failure from COPD Home oxygen 2 L -Hyperuricemia Allopurinol 100 mg a day -Factor V Leyden mutation -Right upper lung nodule treated with the radiation Follow with pulmonary -Essential hypertension Lopressor 25 mg twice a day -BPH Cardura 4 mg a day -Anxiety not otherwise specified Xanax when necessary -Chronic kidney disease likely nephrosclerosis stage III Follow renal function -Hyperkalemia from CK D Low potassium diet. Lokelma for 3 doses. Disposition: Home Plan - Discharge Summary Discharge Rx Participant: No New Discharge Prescriptions: No Action Montelukast Sodium [Singulair] 10 mg PO DAILY Metoprolol Tartrate [Lopressor] 25 mg PO BID Albuterol Nebulized [Ventolin Nebulized] 2.5 mg INHALATION RT-TID PRN PRN Reason: Shortness Of Breath Cetirizine HCl [Zyrtec] 10 mg PO DAILY L.acidoph,Paracasei, B.lactis [Probiotic] 1 cap PO DAILY Sodium Chloride 0.9% Nebuliz [Saline 0.9% For Nebulization] 3 ml INHALATION RT-QID Doxazosin [Cardura] 4 mg PO DAILY ALPRAZolam [Xanax] 0.5 mg PO TID PRN PRN Reason: Anxiety guaiFENesin 400 mg PO BID allopurinoL [Zyloprim] 100 mg PO DAILY Albuterol Sulfate [Ventolin HFA] 2 puff INHALATION RT-QID PRN PRN Reason: Shortness Of Breath Cholecalciferol [Vitamin D3 (25 Mcg = 1000 Iu)] 50 mcg PO DAILY Magnesium Oxide [Mag-Ox] 400 mg PO HS Budesonide 0.25 mg INHALATION RT-BID Fluticasone/Umeclidin/Vilanter [Trelegy Ellipta 100-62.5-25] 1 puff INHALATION RT-DAILY Acetaminophen Tab [Tylenol] 650 mg PO Q6HR PRN tab PRN Reason: Mild Pain Or Fever > 100.5 Aspirin 81 mg PO DAILY Lisinopril-Hctz 10-12.5 mg [Zestoretic 10-12.5] 0.5 tab PO DAILY Ipratropium-Albuterol Nebulize [Duoneb 0.5 mg-3 mg/3 ml Soln] 3 ml INHALATION RT-BID Pantoprazole Sodium [Protonix] 20 mg PO DAILY Azithromycin [Zithromax] 250 mg PO DIRECTED Ascorbic Acid [Vitamin C] 1,000 mg PO DAILY Discharge Medication List Montelukast Sodium [Singulair] 10 mg PO DAILY 01/24/14 [History] Albuterol Nebulized [Ventolin Nebulized] 2.5 mg INHALATION RT-TID PRN 07/25/16 [History] Metoprolol Tartrate [Lopressor] 25 mg PO BID 07/25/16 [History] Cetirizine HCl [Zyrtec] 10 mg PO DAILY 08/19/16 [History] ALPRAZolam [Xanax] 0.5 mg PO TID PRN 09/01/18 [History] Doxazosin [Cardura] 4 mg PO DAILY 09/01/18 [History] L.acidoph,Paracasei, B.lactis [Probiotic] 1 cap PO DAILY 09/01/18 [History] Sodium Chloride 0.9% Nebuliz [Saline 0.9% For Nebulization] 3 ml INHALATION RT- QID 09/01/18 [History] guaiFENesin 400 mg PO BID 09/01/18 [History] allopurinoL [Zyloprim] 100 mg PO DAILY 11/21/19 [History] Albuterol Sulfate [Ventolin HFA] 2 puff INHALATION RT-QID PRN 10/21/21 [History] Budesonide 0.25 mg INHALATION RT-BID 10/21/21 [History] Fluticasone/Umeclidin/Vilanter [Trelegy Ellipta 100-62.5-25] 1 puff INHALATION RT-DAILY 10/21/21 [History] Acetaminophen Tab [Tylenol] 650 mg PO Q6HR PRN tab 10/25/21 [Rx] Ascorbic Acid [Vitamin C] 1,000 mg PO DAILY 01/29/22 [History] Aspirin 81 mg PO DAILY 01/29/22 [History] Azithromycin [Zithromax] 250 mg PO DIRECTED 01/29/22 [History] Cholecalciferol [Vitamin D3 (25 Mcg = 1000 Iu)] 50 mcg PO DAILY 01/29/22 [History] Ipratropium-Albuterol Nebulize [Duoneb 0.5 mg-3 mg/3 ml Soln] 3 ml INHALATION RT-BID 01/29/22 [History] Lisinopril-Hctz 10-12.5 mg [Zestoretic 10-12.5] 0.5 tab PO DAILY 01/29/22 [History] Magnesium Oxide [Mag-Ox] 400 mg PO HS 01/29/22 [History] Pantoprazole Sodium [Protonix] 20 mg PO DAILY 01/29/22 [History] Follow up Appointment(s)/Referral(s): Keshawn Suarez MD [Primary Care Provider] - 1 Week [facility], [REFERRING] - As Needed ([facility] will deliver supplies for outpatient IV antibiotics to your house by the morning of 02/04/22.) Leandro Castillo MD [STAFF PHYSICIAN] - 1 Week [facility] Visiting Nurse, [NON-STAFF] - ([facility] will call you to schedule your in home visits. Your first visit will be on the morning of 02/04/22. )
--- NOTE | 2022-02-03 15:06 | IR ---
PICC LINE PLACEMENT: HISTORY: Infection requiring long-term antibiotic therapy PROCEDURE: Ultrasound and fluoroscopic guidance of PICC line placement. COMPLICATIONS: None ANESTHESIA: 1. 1% Lidocaine locally. FLUOROSCOPY TIME: 0.7 minutes RADIATION DOSE, Ka,r: 0.200 Gy*cm FINDINGS/TECHNIQUE: The procedure was explained to the patient. The risks, complications, benefits and alternatives were discussed and any questions were answered. Informed consent was obtained. The patient was placed supine on the fluoroscopic table and prepped and draped in the usual sterile replaced by [facility]. Utilizing a 21 gauge needle and sonographic and fluoroscopic guidance, access in the left basi lic vein was achieved and there is placement of a 0.018 guidewire. The vein is patent. A 4-F sheath was placed over the guidewire. The guidewire and dilator were removed and a 4-F. PICC line was plac ed through the sheath with the tip at the level of the SVC. The sheath was removed, the catheter was flushed and sutured into position. The patient was stable throughout the procedure and remained sta ble upon discharge from the Department of Radiology. The vein puncture was patent under ultrasound. A brain scale image was obtained to document patency of the vein punctured. All elements of the maximal barrier technique were utilized. IMPRESSION: Successful 4 [place] single lumen 43 cm PICC line placement under ultrasound and fluoroscopic guidance .
--- NOTE | 2022-02-03 15:45 | P.PN ---
Subjective Progress Note Date: 02/03/22 This is another admission for this 76-year-old mentation was recurrent pneumonias and tracheal bronchitis with gram-negative bacteria specifically pseudomonas. The patient has history of COPD, lung mass that was treated with SBR T and history of tracheal bronchomalacia. He has had multiple pneumonias an d multiple hospitalizations in the past for the same. During the most recent hospitalization of November 2021, the patient was treated for an acute gram- negative pneumonia and his sputum culture was positive for E. coli. Note that the patient has had previous infections with Pseudomonas, stenotrophomonas, and MRSA. After his E. coli infection, the patient was treated with antibiotics and the patient also received outpatient antibiotics with Ceftin. Subsequently, he was given a midline/PICC line and he was given a course of Zosyn on outpatient basis. After completion of the antibiotic course, the patient started having true dyspnea and congestion and the patient has outpatient sputum showed pseudomonas aeruginosa and the patient was hospitalized. A chest x-ray showed a right lower lobe pulmonary infiltrate and right-sided pleural effusion. Currently is on IV meropenem. The WBC count of 8.8 with a hemoglobin of 10.4 and a platelet count of 358. D-dimer is 2.64. BUN is at 40 with a creatinine of 1.3 and a sodium level is at 142. The pro-calcitonin level is at 0.19. Covid 19 testing is negative. Influenza A and B are both negative. . On 01/31/2022, the patient's condition is stable. The patient remains on IV meropenem. The patient on DuoNeb about treatments [id number] and IV Solu- Medrol. Doing well. No new complaints. No fever or chills. The pro-calcitoni n level was at 0.19. The vital screening was negative. On 02/01/2022, the patient remains on IV meropenem. He is active. No fever or chills. Producing sputum. Repeat sputum sample was collected and is showing gram-negative bacillus. Remains on bronchodilators. He remains on IV Solu- Medrol 40 mg every 24 hours. No other complaints otherwise for now. Vitals are all stable. No side effects of the antibiotics. No antibiotic toxicity. BUN is 44 with a creatinine of 1.1 and sodium level is at 139. Pro-calcitonin level is at 0.19. 02/02/2022, the patient continues to be on IV. Sputum Gram stain and culture showing gram-negative bacillus. The most recent sputum culture showed pseud omonas aeruginosa and antibiotic adjustments were made accordingly. Infectious diseases on the case. The patient is able to take antibiotic without any major side effects. Is also on IV Solu-Medrol. He is on bronchodilators. His cough is congested. No chest pain. No hemoptysis. No pleurisy. No altered mentation. No other significant events overnight. The patient is seen today 02/03/2022 in follow-up on the regular medical floor. He is currently sitting up at the bedside. Awake and alert in no acute distress. He is currently maintaining good O2 saturations in the mid 90s on 2 L/m per nasal cannula. Afebrile. Hemodynamically stable. White count 11.8. Hemoglobin 11.5. Sodium 1:30. Potassium 4.8. BUN 46. Creatinine 1.14. Pro- calcitonin 0.14. Blood cultures positive for pseudomonas aeruginosa and stenotrophomonas maltophilia. A PICC line has been placed. The plan is for a prolonged treatment with meropenem 1 g every 8 hours per ID services. Objective - Vital Signs Vital signs: Vital Signs Temp 97.4 F L 02/03/22 08:01 Pulse 76 02/03/22 11:12 Resp 17 02/03/22 08:01 BP 134/73 02/03/22 08:01 Pulse Ox 95 02/03/22 08:01 FiO2 28 02/01/22 18:59 Intake & Output 02/02/22 02/03/22 02/03/22 18:59 06:59 18:59 Other: Voiding Method Toilet # Voids 1 - Exam GENERAL EXAM: Alert, pleasant 68-year-old male, on 2 L nasal cannula, comfortable in no apparent distress. HEAD: Normocephalic. EYES: Normal reaction of pupils, equal size. NOSE: Clear with pink turbinates. THROAT: No erythema or exudates. NECK: No masses, no JVD. CHEST: No chest wall deformity. LUNGS: Equal air entry with crackles in the right lung base CVS: S1 and S2 normal with no audible murmur, regular rhythm. ABDOMEN: No hepatosplenomegaly, normal bowel sounds, no guarding or rigidity. SPINE: No scoliosis or deformity SKIN: No rashes CENTRAL NERVOUS SYSTEM: No focal deficits, tone is normal in all 4 extremities. EXTREMITIES: There is no peripheral edema. No clubbing, no cyanosis. Peripheral pulses are intact. - Labs CBC & Chem 7: 02/03/22 04:49 02/03/22 04:49 Labs: Abnormal Lab Results - Last 24 Hours (Table) 02/03/22 02/03/22 Range/Units 04:49 04:49 WBC 11.8 H (3.8-10.6) k/uL RBC 3.67 L (4.30-5.90) m/uL Hgb 11.5 L (13.0-17.5) gm/dL Hct 34.9 L (39.0-53.0) % Neutrophils # 9.2 H (1.3-7.7) k/uL BUN 46 H (9-20) mg/dL Microbiology - Last 24 Hours (Table) 01/30/22 11:00 Gram Stain - Final Sputum Sputum Culture - Final Pseudomonas aeruginosa Stenotrophomonas maltophilia 01/29/22 17:00 Blood Culture - Preliminary Blood No Growth after 96 hours 01/29/22 16:45 Blood Culture - Preliminary Blood No Growth after 96 hours Assessment and Plan Assessment: Recurrent pneumonia. The patient is having recurrent pneumonia/tracheobro nchitis with pseudomonas and other gram-negative bacteria. Patient was treated recently for E. coli tracheal bronchitis/pneumonia with received inpatient and subsequent outpatient IV antibiotics. He is coming in for another bout of an infection with pseudomonas aeruginosa and stenotrophomonas maltophilia based on the most recent sputum sample. Currently on IV meropenem. PICC line has been placed. Duration of antibiotics per ID services. Right-sided pleural effusion with patchy consolidation of the right lower lobe Acute on chronic hypoxic respiratory failure currently on 2 L of O2 nasal cannula COPD maintain on Trelegy Ellipta on an outpatient basis Tracheobronchomalacia Recurrent respiratory tract infection with pseudomonas aeruginosa, E. coli, MRSA Right upper lobe pulmonary nodule avid on the previous PET scan and this was active on a PET scan and the patient was treated with SBR T Right renal mass being followed up on outpatient basis Infected 5 Leyden mutation Previous history of left lower extremity DVT Hypertension Chronic stage III kidney disease History of colonic perforation requiring colectomy and colostomy. Obstructive sleep apnea not using CPAP therapy Diverticulosis with previous history of diverticulitis Multiple hepatic cysts Plan: The patient was seen and evaluated Labs and medications reviewed PICC line has been placed To continue meropenem per ID services Follow up in our office in 1 week I have personally seen and examined the patient, performed the documentation and the assessment and plan as written. Number of minutes spent on the visit: 10.
[2022-02-03 16:00] VITALS: BP 129/65; RESP 18; TEMP 97.5
[2022-02-03 16:21] VITALS: PULSE 73
[2022-02-05] MEDS ORDERED: LEVOFLOXACIN 750 MG TAB PO SCH (12:00)
--- NOTE | 2022-02-10 23:00 | P.PN ---
Subjective Progress Note Date: 02/03/22 Principal diagnosis: MDR Pseudomonas pneumonia Patient is a 76-year-old male with a past medical history significant for end-stage COPD history of recurrent pneumonia presented to hospital with increasing shortness of breath, hypoxemia with recent outpatient sputum culture positive for multidrug-resistant pseudomonas. On today's evaluation and that is 02/03/2022, the patient is afebrile, the patient is breathing comfortably on room air, patient denies having any chest pain, the patient cough has decreased in intensity and mostly dry in nature, the patient denies having any nausea no vomiting no abdominal pain or diarrhea patient is feeling better Objective - Vital Signs Vital signs: Vital Signs Temp 97.4 F L 02/03/22 08:01 Pulse 76 02/03/22 11:12 Resp 17 02/03/22 08:01 BP 134/73 02/03/22 08:01 Pulse Ox 95 02/03/22 08:01 FiO2 28 02/01/22 18:59 Intake & Output 02/02/22 02/03/22 02/03/22 18:59 06:59 18:59 Other: Voiding Method Toilet # Voids 1 - Exam GENERAL DESCRIPTION: An elderly male lying in bed in no distress RESPIRATORY SYSTEM: Unlabored breathing , course breath sounds bilaterally HEART: S1 S2 regular rate and rhythm , ABDOMEN: Soft , no tenderness EXTREMITIES: No edema feet - Labs CBC & Chem 7: 02/03/22 04:49 02/03/22 04:49 Labs: Abnormal Lab Results - Last 24 Hours (Table) 02/03/22 02/03/22 Range/Units 04:49 04:49 WBC 11.8 H (3.8-10.6) k/uL RBC 3.67 L (4.30-5.90) m/uL Hgb 11.5 L (13.0-17.5) gm/dL Hct 34.9 L (39.0-53.0) % Neutrophils # 9.2 H (1.3-7.7) k/uL BUN 46 H (9-20) mg/dL Microbiology - Last 24 Hours (Table) 01/30/22 11:00 Gram Stain - Final Sputum Sputum Culture - Final Pseudomonas aeruginosa Stenotrophomonas maltophilia 01/29/22 17:00 Blood Culture - Preliminary Blood No Growth after 96 hours 11/23/22 16:45 Blood Culture - Preliminary Blood No Growth after 96 hours Assessment and Plan (1) Infection due to multidrug-resistant Pseudomonas aeruginosa Status: Acute Code(s): A49.8 - OTHER BACTERIAL INFECTIONS OF UNSPECIFIED SITE; Z16.24 - RESISTANCE TO MULTIPLE ANTIBIOTICS SNOMED Code(s): 922496947 (2) Pneumonia Status: Acute Code(s): J18.9 - PNEUMONIA, UNSPECIFIED ORGANISM SNOMED Code(s): 315055047 Plan: 1patient with positive sputum culture for multidrug-resistant Pseudomonas aeruginosa in this patient with end-stage COPD did have increased infiltrate right lower lobe concerning for possible pneumonia the patient not running any fever or elevated white count however keeping in mind his worsening respiratory symptoms and high risk of respiratory failure patient will need more aggressive treatment with antibiotic. 2patient slowly clinically improving, repeat sputum culture is growing Pseudomonas multidrug resistant and stenotrophomonas patient did cut the midline and is to continue with the meropenem 1 g daily 2 week along with oral Levaquin 750 mg daily for 2 weeks and close outpatient follow-up prescription sent to the pharmacy Time with Patient: Less than 30
== END 2022-02-03 18:45 | disposition home health service (06) | DRG 177 ==
LOC: EC 15:09 → 4SSUR 17:58
PROVIDERS: ADMIT Hospitalist; ATTEND Hospitalist
PROC: 02HV33Z Insertion of Infusion Device into Superior Vena Cava, Percutaneous Approach (ICD-10-PCS; principal; 2022-02-03 15:30)
DX: J15.1 Pneumonia due to Pseudomonas (principal); J96.21 Acute and chronic respiratory failure with hypoxia; D68.51 Activated protein C resistance; J44.0 Chronic obstructive pulmonary disease with (acute) lower respiratory infection; J44.1 Chronic obstructive pulmonary disease with (acute) exacerbation; J90 Pleural effusion, not elsewhere classified; Z16.24 Resistance to multiple antibiotics; Z87.891 Personal history of nicotine dependence; I12.9 Hypertensive chronic kidney disease with stage 1 through stage 4 chronic kidney disease, or unspecified chronic kidney disease; N18.30 Chronic kidney disease, stage 3 unspecified; D63.1 Anemia in chronic kidney disease; F41.9 Anxiety disorder, unspecified; I45.10 Unspecified right bundle-branch block; G47.33 Obstructive sleep apnea (adult) (pediatric); J39.8 Other specified diseases of upper respiratory tract; K21.9 Gastro-esophageal reflux disease without esophagitis; K57.30 Diverticulosis of large intestine without perforation or abscess without bleeding; K59.00 Constipation, unspecified; K76.89 Other specified diseases of liver; E87.5 Hyperkalemia; N28.89 Other specified disorders of kidney and ureter; Z99.81 Dependence on supplemental oxygen; Z20.822 Contact with and (suspected) exposure to COVID-19; Z79.2 Long term (current) use of antibiotics; Z79.51 Long term (current) use of inhaled steroids; N40.0 Benign prostatic hyperplasia without lower urinary tract symptoms; Z79.82 Long term (current) use of aspirin; Z79.899 Other long term (current) drug therapy; R91.1 Solitary pulmonary nodule; Z86.718 Personal history of other venous thrombosis and embolism; Z87.01 Personal history of pneumonia (recurrent); Z93.3 Colostomy status; Z85.118 Personal history of other malignant neoplasm of bronchus and lung; Z88.2 Allergy status to sulfonamides; Z88.1 Allergy status to other antibiotic agents; Z91.030 Bee allergy status; Z91.041 Radiographic dye allergy status; Z60.2 Problems related to living alone; Z86.14 Personal history of Methicillin resistant Staphylococcus aureus infection; Z90.49 Acquired absence of other specified parts of digestive tract
CPT/HCPCS: 36415; 36573; 71046; 80048; 80053; 83605; 83735; 84145; 85025; 85379; 85610; 85730; 87040; 87070; 87077; 87186; 87205; 87502; 87635; 93005; 94640; 94760; 96374; 96375; 99285

== ENCOUNTER 2022-02-17 09:07 | Inpatient (IN) | payer MEDICARE, BC ==
[2022-02-17] MEDS ORDERED: SODIUM CHLORIDE 0.9% 1,000 ML IV STA (09:35)
[2022-02-17 10:01] LABS: Basophils # (A) 0.1 k/uL (0-0.2); Basophils % (A) 1 %; Eosinophils # (A) 0.3 k/uL (0-0.7); Eosinophils % (A) 3 %; HCT 36.9 % (39.0-53.0); HGB 12.3 gm/dL (13.0-17.5); Lymphocytes # (A) 0.6 k/uL (1.0-4.8); Lymphocytes % (A) 5 %; MCH 31.4 pg (25.0-35.0); MCHC 33.2 g/dL (31.0-37.0); MCV 94.5 fL (80.0-100.0); Monocytes # (A) 0.5 k/uL (0-1.0); Monocytes % (A) 4 %; Neutrophils % (A) 87 %; Platelet Count 209 k/uL (150-450); RBC 3.91 m/uL (4.30-5.90); RDW 14.8 % (11.5-15.5); WBC 11.6 k/uL (3.8-10.6)
[2022-02-17 10:10] LABS: Albumin 3.3 g/dL (3.5-5.0); Potassium 4.7 mmol/L (3.5-5.1); Total Bilirubin 2.2 mg/dL (0.2-1.3); Total Protein 5.8 g/dL (6.3-8.2)
--- NOTE | 2022-02-17 10:12 | CT ---
EXAMINATION TYPE: CT abdomen pelvis wo con DATE OF EXAM: 02/17/2022 COMPARISON: 01/25/2022 HISTORY: abd pain and distention CT DLP: 672.1 mGycm Examination of the solid and hollow viscera is limited given the lack of contrast. FINDINGS: LUNG BASES: No evidence for nodule. No evidence for infiltrate. Bronchiectasis right lower lobe. LIVER/GB: Gallbladder sludge suggested. Hypoattenuating hepatic lesions may reflect multiple cysts un changed from prior examination. PANCREAS: No pancreatic mass identified. No inflammatory process seen . SPLEEN: No evidence for splenomegaly. No intrasplenic lesions seen. ADRENALS: No adrenal nodules identified. No evidence for thickening. KIDNEYS: No evidence for renal mass. No nephrolithiasis. No hydronephrosis. BOWEL: There is dilated small bowel measuring up to 4.4 cm compatible with obstruction. There is umbi lical hernia which contains fluid density. This could reflect a small portion of the bowel as well. D ifficult to say with certainty. There is left lower quadrant ostomy with fluid surrounding the coloni c segment. Colon demonstrates moderate fecal stasis. Lymph nodes: No evidence for adenopathy greater than 1 cm. Abdominal aorta: Atheromatous changes seen. No evidence for aneurysm. Genital organs: No significant abnormality. Other: No significant abnormality. IMPRESSION: 1. Findings compatible with small bowel obstruction with distal right lower quadrant transition zone noted. There is also umbilical hernia which may contain a short segment of small bowel and/or fluid. 2. Left lower quadrant ostomy 3. Multiple hepatic cysts. 4 right lower lobe bronchiectasis.
[2022-02-17] MEDS ORDERED: NALOXONE 0.4 MG/ML 1 ML VIAL IV PRN (10:54)
[2022-02-17] MEDS ORDERED: ONDANSETRON 4 MG/2 ML VIAL IVP PRN ×2 (10:54→14:25)
--- NOTE | 2022-02-17 10:54 | ED ---
Abdominal Pain HPI - General Chief Complaint: Abdominal Pain Stated Complaint: Abd pain Time Seen by Provider: 02/17/22 09:09 Source: patient, RN notes reviewed Mode of arrival: EMS Limitations: no limitations - History of Present Illness Initial Comments: 76-year-old male presents emergency department tingling abdominal pain. Patient states that something he had severe abdominal pain has persisted. Patient states his abdomen is hard, distended. Patient states she's had essentially no output in his colostomy. Patient states he had prior resection with colostomy after diverticulitis with perforation. Patient reports no fevers or chills. Patient states that he is currently on meropenem for Pseudomonas lung infection. Patient denies any dysuria, hematuria or decreased in output. Patient offers no other associated complaints. - Related Data Home Medications Medication Instructions Recorded Confirmed Montelukast Sodium [Singulair] 10 mg PO DAILY 01/24/14 01/29/22 Albuterol Nebulized [Ventolin 2.5 mg INHALATION RT-TID PRN 07/25/16 01/29/22 Nebulized] Metoprolol Tartrate [Lopressor] 25 mg PO BID 07/25/16 01/29/22 Cetirizine HCl [Zyrtec] 10 mg PO DAILY 08/19/16 01/29/22 ALPRAZolam [Xanax] 0.5 mg PO TID PRN 09/01/18 01/29/22 Doxazosin [Cardura] 4 mg PO DAILY 09/01/18 01/29/22 L.acidoph,Paracasei, B.lactis 1 cap PO DAILY 09/01/18 01/29/22 [Probiotic] Sodium Chloride 0.9% Nebuliz 3 ml INHALATION RT-QID 09/01/18 01/29/22 [Saline 0.9% For Nebulization] allopurinoL [Zyloprim] 100 mg PO DAILY 11/21/19 01/29/22 Albuterol Sulfate [Ventolin HFA] 2 puff INHALATION RT-QID PRN 10/21/21 01/29/22 Budesonide 0.25 mg INHALATION RT-BID 10/21/21 01/29/22 Fluticasone/Umeclidin/Vilanter 1 puff INHALATION RT-DAILY 10/21/21 01/29/22 [Trelegy Ellipta 100-62.5-25] Ascorbic Acid [Vitamin C] 1,000 mg PO DAILY 01/29/22 01/29/22 Aspirin 81 mg PO DAILY 01/29/22 01/29/22 Cholecalciferol [Vitamin D3 (25 50 mcg PO DAILY 01/29/22 01/29/22 Mcg = 1000 Iu)] Ipratropium-Albuterol Nebulize 3 ml INHALATION RT-BID 01/29/22 01/29/22 [Duoneb 0.5 mg-3 mg/3 ml Soln] Lisinopril-Hctz 10-12.5 mg 0.5 tab PO DAILY 01/29/22 01/29/22 [Zestoretic 10-12.5] Magnesium Oxide [Mag-Ox] 400 mg PO HS 01/29/22 01/29/22 Pantoprazole Sodium [Protonix] 20 mg PO DAILY 01/29/22 01/29/22 Previous Rx's Medication Instructions Recorded Acetaminophen Tab [Tylenol] 650 mg PO Q6HR PRN tab 10/25/21 Levofloxacin [Levaquin] 750 mg PO DAILY 13 Days #13 tab 02/03/22 Meropenem [Merrem] 1 gm IVPB Q8H each 02/03/22 Psyllium Husk 100% [Metamucil 6 gm PO DAILY packet 02/03/22 Packet] guaiFENesin [Mucinex] 600 mg PO TID #90 tab 02/03/22 predniSONE 10 mg PO DAILY #30 tab 02/03/22 Allergies Allergy/AdvReac Type Severity Reaction Status Date / Time cefepime Allergy SHUT DOWN Verified 02/17/22 09:11 KIDNEYS ether Allergy Anaphylaxis Verified 02/17/22 09:11 Iodinated Contrast Media Allergy PAST Verified 02/17/22 09:11 [Iodinated Contrast Media - HISTORY OF Oral and] KIDNEY PROBLEMS venom-honey bee Allergy Anaphylaxis Verified 02/17/22 09:11 sulfamethoxazole AdvReac states Verified 02/17/22 09:11 [From Bactrim] effects kidneys trimethoprim [From Bactrim] AdvReac states Verified 02/17/22 09:11 effects kidneys Review of Systems ROS Statement: Those systems with pertinent positive or pertinent negative responses have been documented in the HPI. ROS Other: All systems not noted in ROS Statement are negative. Past Medical History Past Medical History: Blood Disorder, Cancer, COPD, Deep Vein Thrombosis (DVT), GERD/Reflux, Hypertension, Pneumonia, Renal Disease Additional Past Medical History / Comment(s): hx of pseudomonus lung infection, uses CPAP not for sleep apnea, O2 prn 2l prn, diverticulits, Factor V Leiden, hx of bronchial silicone stent now removed, PICC line in past now removed, past hx dialysis for kidney damage, none currently, Stage 3 renal disease, Lung cancer - diagnosed and treated down in [place], Colostomy, hernia repair History of Any Multi-Drug Resistant Organisms: MRSA Date of last positivie culture/infection: 08/30/21 MDRO Source:: Sputum Past Surgical History: Hernia Repair, Tonsillectomy Additional Past Surgical History / Comment(s): bronchoscopy, bronchial silicone stent, now removed, fatty tumor removed from chest area, COLONOSCOPY, alexandre ca taract, hernia repair Past Anesthesia/Blood Transfusion Reactions: Previous Problems w/ Anesthesia Additional Past Anesthesia/Blood Transfusion Reaction / Comment(s): "as infant turned black and blue from ETHER". FACTOR V LEIDEN Past Psychological History: Anxiety Smoking Status: Former smoker Past Alcohol Use History: None Reported Past Drug Use History: None Reported - Past Family History Father Family Medical History: Cancer Additional Family Medical History / Comment(s): colon cancer Mother Family Medical History: Cancer Additional Family Medical History / Comment(s): leukemia General Exam Limitations: no limitations Course Vital Signs 02/17/22 09:08 Temperature 97.5 F L Pulse Rate 96 Respiratory 24 Rate Blood Pressure 97/55 O2 Sat by Pulse 97 Oximetry Medical Decision Making - Medical Decision Making Patient CT interpreted shows evidence of small bowel obstruction, umbilical hernia. Transition point in the right lower. Patient's lab work did not reveal any acute findings. Patient's case discussed with surgery Dr. Munoz accepts admission with consult to medicine. - Lab Data Result diagrams: 02/17/22 09:48 02/17/22 09:48 Lab Results 02/17/22 02/17/22 Range/Units 09:48 09:48 WBC 11.6 H (3.8-10.6) k/uL RBC 3.91 L (4.30-5.90) m/uL Hgb 12.3 L (13.0-17.5) gm/dL Hct 36.9 L (39.0-53.0) % MCV 94.5 (80.0-100.0) fL MCH 31.4 (25.0-35.0) pg MCHC 33.2 (31.0-37.0) g/dL RDW 14.8 (11.5-15.5) % Plt Count 209 (150-450) k/uL MPV 9.0 Neutrophils % 87 % Lymphocytes % 5 % Monocytes % 4 % Eosinophils % 3 % Basophils % 1 % Neutrophils # 10.0 H (1.3-7.7) k/uL Lymphocytes # 0.6 L (1.0-4.8) k/uL Monocytes # 0.5 (0-1.0) k/uL Eosinophils # 0.3 (0-0.7) k/uL Basophils # 0.1 (0-0.2) k/uL Sodium 137 (137-145) mmol/L Potassium 4.7 (3.5-5.1) mmol/L Chloride 102 (98-107) mmol/L Carbon Dioxide 28 (22-30) mmol/L Anion Gap 7 mmol/L BUN 39 H (9-20) mg/dL Creatinine 1.55 H (0.66-1.25) mg/dL Est GFR (CKD-EPI)AfAm 49 (>60 ml/min/1.73 sqM) Est GFR (CKD-EPI)NonAf 42 (>60 ml/min/1.73 sqM) Glucose 106 H (74-99) mg/dL Calcium 9.0 (8.4-10.2) mg/dL Total Bilirubin 2.2 H (0.2-1.3) mg/dL AST 25 (17-59) U/L ALT 23 (4-49) U/L Alkaline Phosphatase 51 (38-126) U/L Total Protein 5.8 L (6.3-8.2) g/dL Albumin 3.3 L (3.5-5.0) g/dL Amylase 96 (30-110) U/L Lipase 327 H (23-300) U/L Disposition Clinical Impression: SBO (small bowel obstruction) Disposition: ADMITTED IP TO THIS [facility] Condition: Fair Referrals: Keshawn Suarez MD [Primary Care Provider] - 1-2 days Time of Disposition: 10:41
[2022-02-17] MEDS: SODIUM CHLORIDE 0.9% 1,000 ML IV SCH ×2 (12:21→23:58)
--- NOTE | 2022-02-17 12:39 | XR ---
EXAMINATION TYPE: XR chest 1V portable DATE OF EXAM: 02/17/2022 12:27 PM COMPARISON: Chest radiographs from 01/29/2022 TECHNIQUE: XR chest 1V portable Portable AP radiograph of the chest. CLINICAL INDICATION:Male, 76 years old with history of NG tube placement; FINDINGS: Lungs/Pleura: Bibasilar atelectasis. No evidence for pneumothorax, pleural effusion or focal consolid ation. Pulmonary vascularity: Unremarkable. Heart/mediastinum: Cardiomediastinal silhouette is unremarkable. Musculoskeletal: No acute osseous pathology. Left-sided PICC with distal tip at the superior vena cava. Nasogastric tube with distal tip and side-port projecting under the diaphragm. IMPRESSION: 1. Nasogastric tube in appropriate position. 2. Left PICC in appropriate position. 3. Bibasilar atelectasis
[2022-02-17] MEDS ORDERED: ALBUTEROL NEBULIZED 2.5 MG/3 ML INHALATION PRN (13:03)
[2022-02-17 13:26] LABS: Appearance,Urine Clear (Clear); Bilirubin,Urine Negative (Negative); Blood,Urine Negative (Negative); Color,Urine Yellow; Glucose,Urine (UA) Negative (Negative); Ketones,Urine 1+ (Negative); Leukocyte Esterase,Urine Small (Negative); Mucus,Urine Rare /hpf; Nitrite,Urine Negative (Negative); Protein,Urine 1+ (Negative); RBC,Urine 1 /hpf (0-5); Squamous Epithelial Cell,Urine <1 /hpf (0-4); Urobilinogen,Urine <2.0 mg/dL (<2.0); WBC,Urine 7 /hpf (0-5)
--- NOTE | 2022-02-17 14:27 | P.GSHP ---
History of Present Illness H&P Date: 02/17/22 CHIEF COMPLAINT: Abdominal pain HISTORY OF PRESENT ILLNESS: This is a 76-year-old male who presented to the ER with complaints of diffuse abdominal pain but more in the right lower abdomen. Patient reports that his abdominal pain started Thursday morning. The pain came on suddenly. He'd been nauseated and having acid reflux. She reports that his ostomy output had decreased he was still making a small amount of stool through his ostomy. But has stopped having any flatus over the last couple a days. Patient does have a prior history of diverticulitis with perforation requiring bowel resection with colostomy placement in March 2021 in [place]. He also has a past surgical history of a right inguinal hernia repair. Patient had a computed tomography scan abdomen and pelvis showing a small bowel obstruction. NG tube is being placed in the ER. History of a pulmonary lung nodule requiring radiation treatment. He also has active pneumonia and Pseudomonas infection on antibiotics outpatient. He does have factor V Leiden mutation. PAST MEDICAL HISTORY: Lung nodule status post radiation treatment, factor V Leiden mutation, right renal mass followed outpatient, Pseudomonas pneumonia on antibiotics outpatient, hepatic cysts, chronic kidney disease PAST SURGICAL HISTORY: See below MEDICATIONS: See below ALLERGIES: See below SOCIAL HISTORY: No illicit drug use. REVIEW OF SYSTEMS: CONSTITUTIONAL: Denies fever or chills. HEENT: Denies blurred vision, vision changes, or eye pain. Denies hemoptysis CARDIOVASCULAR: Denies chest pain or pressure. RESPIRATORY: No shortness of breath. GASTROINTESTINAL: See HPI for pertinent findings HEMATOLOGIC: Denies bleeding disorders. GENITOURINARY: Denies any blood in urine or increased urinary frequency. SKIN: Denies pruitis. Denies rash. PHYSICAL EXAM: VITAL SIGNS: Reviewed GENERAL: Well-developed in no acute distress. HEENT: No sclera icterus. Extraocular movements grossly intact. Moist buccal mucosa. Head is atraumatic, normocephalic. No nasal drainage. ABDOMEN: Distended. Umbilical hernia reducible nontender. Tenderness at palpation diffuse abdomen but more in the right lower quadrant. Ostomy bag on the side of abdomen NEUROLOGIC: Alert and oriented. Cranial nerves II through XII grossly intact. LABORATORY DATA: WBC 11.6 Hgb 12.3 platelets 209 Sodium is 137 potassium 4.7 creatinine 1.55 Glucose 106 Total bilirubin 2.2 AST 25 ALT 23 alk phos 51 lipase 327 Urinalysis small leukocyte esterase WBC 7 IMAGING: Computed tomography scan abdomen and pelvis findings compatible with small bowel obstruction with distal right lower quadrant transition zone noted. There is also umbilical hernia which may contain a short segment of small bowel and/or fluid. Left lower quadrant ostomy. Multiple hepatic cysts. Right lower lobe bronchiectasis. Gallbladder sludge ASSESSMENT: 1. Small bowel obstruction with distal right lower quadrant transition point noted on computed tomography scan 2. Umbilical hernia reducible 3. Gallbladder sludge noted on CT. Patient denies any right upper quadrant kleber n 4. Prior history of diverticulitis with perforation and bowel resection with colostomy placement PLAN: -NG tube placed for decompression -Keep patient nothing by mouth -Continue IV fluids -Continue pain medication as needed -Continue antiemetics as needed -Medical service consulted for medical management -GI prophylaxis Protonix and DVT prophylaxis subcu heparin Physician Human Factors Engineer note has been reviewed by physician. Signing provider agrees with the documented findings, assessment, and plan of care. Past Medical History Past Medical History: Blood Disorder, Cancer, COPD, Deep Vein Thrombosis (DVT), GERD/Reflux, Hypertension, Pneumonia, Renal Disease Additional Past Medical History / Comment(s): hx of pseudomonus lung infection, uses CPAP not for sleep apnea, O2 prn 2l prn, diverticulits, Factor V Leiden, hx of bronchial silicone stent now removed, PICC line in past now removed, past hx dialysis for kidney damage, none currently, Stage 3 renal disease, Lung cancer - diagnosed and treated down in [place], Colostomy, hernia repair History of Any Multi-Drug Resistant Organisms: MRSA Date of last positivie culture/infection: 08/30/21 MDRO Source:: Sputum Past Surgical History: Hernia Repair, Tonsillectomy Additional Past Surgical History / Comment(s): bronchoscopy, bronchial silicone stent, now removed, fatty tumor removed from chest area, COLONOSCOPY, alexandre cataract, hernia repair Past Anesthesia/Blood Transfusion Reactions: Previous Problems w/ Anesthesia Additional Past Anesthesia/Blood Transfusion Reaction / Comment(s): "as turned black and blue from ETHER". FACTOR V LEIDEN Past Psychological History: Anxiety Smoking Status: Former smoker Past Alcohol Use History: None Reported Past Drug Use History: None Reported - Past Family History Father Family Medical History: Cancer Additional Family Medical History / Comment(s): colon cancer Mother Family Medical History: Cancer Additional Family Medical History / Comment(s): leukemia Medications and Allergies Home Medications Medication Instructions Recorded Confirmed Type Montelukast Sodium [Singulair] 10 mg PO DAILY 01/24/14 02/17/22 History Albuterol Nebulized [Ventolin 2.5 mg INHALATION RT-TID PRN 07/25/16 02/17/22 History Nebulized] Metoprolol Tartrate [Lopressor] 25 mg PO BID 07/25/16 02/17/22 History Cetirizine HCl [Zyrtec] 10 mg PO DAILY 08/19/16 02/17/22 History ALPRAZolam [Xanax] 0.5 mg PO TID PRN 09/01/18 02/17/22 History Doxazosin [Cardura] 4 mg PO DAILY 09/01/18 02/17/22 History L.acidoph,Paracasei, B.lactis 1 cap PO DAILY 09/01/18 02/17/22 History [Probiotic] Sodium Chloride 0.9% Nebuliz 3 ml INHALATION RT-QID 09/01/18 02/17/22 History [Saline 0.9% For Nebulization] allopurinoL [Zyloprim] 100 mg PO DAILY 11/21/19 02/17/22 History Albuterol Sulfate [Ventolin HFA] 2 puff INHALATION RT-QID PRN 10/21/21 02/17/22 History Budesonide 0.25 mg INHALATION RT-BID 10/21/21 02/17/22 History Fluticasone/Umeclidin/Vilanter 1 puff INHALATION RT-DAILY 10/21/21 02/17/22 History [Trelegy Ellipta 100-62.5-25] Acetaminophen Tab [Tylenol] 650 mg PO Q6HR PRN tab 10/25/21 02/17/22 Rx Ascorbic Acid [Vitamin C] 1,000 mg PO DAILY 01/29/22 02/17/22 History Aspirin 81 mg PO DAILY 01/29/22 02/17/22 History Cholecalciferol [Vitamin D3 (25 50 mcg PO DAILY 01/29/22 02/17/22 History Mcg = 1000 Iu)] Ipratropium-Albuterol Nebulize 3 ml INHALATION RT-BID 01/29/22 02/17/22 History [Duoneb 0.5 mg-3 mg/3 ml Soln] Lisinopril-Hctz 10-12.5 mg 0.5 tab PO DAILY 01/29/22 02/17/22 History [Zestoretic 10-12.5] Magnesium Oxide [Mag-Ox] 400 mg PO HS 01/29/22 02/17/22 History Pantoprazole Sodium [Protonix] 20 mg PO DAILY 01/29/22 02/17/22 History Psyllium Husk 100% [Metamucil 6 gm PO DAILY packet 02/03/22 02/17/22 Rx Packet] Levofloxacin [Levaquin] 750 mg PO DAILY@1200 02/17/22 02/17/22 History Meropenem [Merrem] 1 gm IVPB TID@0000,0800,1600 02/17/22 02/17/22 History guaiFENesin [Mucinex] 600 mg PO BID 02/17/22 02/17/22 History Allergies Allergy/AdvReac Type Severity Reaction Status Date / Time cefepime Allergy SHUT DOWN Verified 02/17/22 11:36 KIDNEYS ether Allergy Anaphylaxis Verified 02/17/22 11:36 Iodinated Contrast Media Allergy PAST Verified 02/17/22 11:36 [Iodinated Contrast Media - HISTORY OF Oral and] KIDNEY PROBLEMS venom-honey bee Allergy Anaphylaxis Verified 02/17/22 11:36 sulfamethoxazole AdvReac states Verified 02/17/22 11:36 [From Bactrim] effects kidneys trimethoprim [From Bactrim] AdvReac states Verified 02/17/22 11:36 effects kidneys Surgical - Exam Vital Signs Temp Pulse Resp BP Pulse Ox 97.5 F L 96 24 97/55 97 02/17/22 09:08 02/17/22 09:08 02/17/22 09:08 02/17/22 09:08 02/17/22 09:08 Results - Labs 02/17/22 09:48 02/17/22 09:48 Abnormal Lab Results - Last 24 Hours (Table) 02/17/22 02/17/22 Range/Units 09:48 09:48 WBC 11.6 H (3.8-10.6) k/uL RBC 3.91 L (4.30-5.90) m/uL Hgb 12.3 L (13.0-17.5) gm/dL Hct 36.9 L (39.0-53.0) % Neutrophils # 10.0 H (1.3-7.7) k/uL Lymphocytes # 0.6 L (1.0-4.8) k/uL BUN 39 H (9-20) mg/dL Creatinine 1.55 H (0.66-1.25) mg/dL Glucose 106 H (74-99) mg/dL Total Bilirubin 2.2 H (0.2-1.3) mg/dL Total Protein 5.8 L (6.3-8.2) g/dL Albumin 3.3 L (3.5-5.0) g/dL Lipase 327 H (23-300) U/L Diabetes panel 02/17/22 Range/Units 09:48 Sodium 137 (137-145) mmol/L Potassium 4.7 (3.5-5.1) mmol/L Chloride 102 (98-107) mmol/L Carbon Dioxide 28 (22-30) mmol/L BUN 39 H (9-20) mg/dL Creatinine 1.55 H (0.66-1.25) mg/dL Glucose 106 H (74-99) mg/dL Calcium 9.0 (8.4-10.2) mg/dL AST 25 (17-59) U/L ALT 23 (4-49) U/L Alkaline Phosphatase 51 (38-126) U/L Total Protein 5.8 L (6.3-8.2) g/dL Albumin 3.3 L (3.5-5.0) g/dL Calcium panel 02/17/22 Range/Units 09:48 Calcium 9.0 (8.4-10.2) mg/dL Albumin 3.3 L (3.5-5.0) g/dL Pituitary panel 02/17/22 Range/Units 09:48 Sodium 137 (137-145) mmol/L Potassium 4.7 (3.5-5.1) mmol/L Chloride 102 (98-107) mmol/L Carbon Dioxide 28 (22-30) mmol/L BUN 39 H (9-20) mg/dL Creatinine 1.55 H (0.66-1.25) mg/dL Glucose 106 H (74-99) mg/dL Calcium 9.0 (8.4-10.2) mg/dL Adrenal panel 02/17/22 Range/Units 09:48 Sodium 137 (137-145) mmol/L Potassium 4.7 (3.5-5.1) mmol/L Chloride 102 (98-107) mmol/L Carbon Dioxide 28 (22-30) mmol/L BUN 39 H (9-20) mg/dL Creatinine 1.55 H (0.66-1.25) mg/dL Glucose 106 H (74-99) mg/dL Calcium 9.0 (8.4-10.2) mg/dL Total Bilirubin 2.2 H (0.2-1.3) mg/dL AST 25 (17-59) U/L ALT 23 (4-49) U/L Alkaline Phosphatase 51 (38-126) U/L Total Protein 5.8 L (6.3-8.2) g/dL Albumin 3.3 L (3.5-5.0) g/dL
--- NOTE | 2022-02-17 14:45 | P.CONS ---
History of Present Illness - Reason for Consult Consult date: 02/17/22 Medical management Requesting physician: Que Munoz - Chief Complaint Abdominal pain - History of Present Illness This is a 76-year-old patient who follows with Dr. Keshawn Suarez. Chronic stable medical conditions include DVT, GERD, hypertension, uses CPAP, home oxy gen 2 L , factor 5 Leyden, bronchial silicone stent now removed, prior history of hemodialysis, lung cancer diagnosed and treated in [place]. Colostomy.April 12 2021, in [place] - bowel perforation -had 4 inches of large bowel removed. - colostomy. During that hospitalization he also pneumonia. Then in July again had a lung infection. - port placed / 2 weeks of antibiotics. October 2021 admitted to [facility] in treated with ceftazidime. Following discharge diagnosed with E. coli on November 20 and treated with antibiotics by Dr. Cortez. Patient discharged from the hospital on December 12 with drug-resistant E. coli with 2 weeks of IV Invanz. Subsequent pneumonia with multidrug resistance Pseudomonas aeruginosa, sensitive to imipenem. 01/30/2022 again admitted with pneumonia. This occasion sputum positive for Pseudomonas aeruginosa and Stenotrophomonas maltophilia. Discharge and IV meropenem and Levaquin. To be completed on February 17. Yesterday morning around 3:00 patient started having increasing abdominal pain. Pain progressed to get worse. No nausea vomiting. Became somewhat uncomfortable. Last bowel movement was 2 days ago. Patient's breathing is better. Some congestion. She does phlegm. No fever no chills. Finally presented to the ER. Computed tomography scan showed small bowel obstruction. NG tube placed. Review of systems: GEN.: Tired EYES: None HEENT: None NECK: None RESPIRATORY: As above CARDIOVASCULAR: None GASTROINTESTINAL: As above GENITOURINARY: None MUSCULOSKELETAL: joint pain LYMPHATICS: None HEMATOLOGICAL: None PSYCHIATRY: None NEUROLOGICAL: None Past medical history to include: Factor V Leyden mutation, COPD, DVT, GERD, hypertension, COPD, Pseudomonas lung infection, uses CPAP, 2 L home oxygen when necessary, diverticulitis, bronchial silicone stent now removed, hemodialysis now discontinued CK D stage III, right lung solid nodule with radiation treatment. Social history: Lives alone. Smoked 1-2 packs a day for 50 years stopped in 2012. Did drink significant alcohol stopped some time ago. Retired from [employer] and [employer]. Family history: Colon cancer Physical examination: VITAL SIGNS: 97.1, 67, 16, 87/59, 95% on 2 L] GENERAL: [BMI 27.6 reclining in bed awake COVID anxious. EYES: Pupils equal. Conjunctiva normal. HEENT: External appearance of nose and ears normal, oral cavity grossly normal NG tube to suction. NECK: JVD not raised; masses not palpable. HEART: First and second heart sounds are normal; no edema. LUNGS: Respiratory rate increased; increased breath sound mild wheezing. ABDOMEN: Soft, nontender, liver spleen not palpable, no masses palpable colostomy. PSYCH: Alert and oriented x3; mood and affect anxiousl. MUSCULOSKELETAL:No Clubbing/cyanosis;muscles-grossly intact. OA NEUROLOGICAL: Cranial nerves grossly intact; no facial asymmetry, power and sensation grossly intact. LYMPHATICS: No lymph nodes palpable in the axilla and neck INVESTIGATIONS, reviewed in the clinical context: WBC 11.6 hemoglobin 12.3 platelets 209 potassium 4.7 BUN 39 creatinine 1.55 Computed tomography scan abdomen and pelvis: Small bowel obstruction with distal right lower quadrant transition zone noted. Umbilical hernia may contain a short segment of small bowel. Assessment plan: -'s acute small bowel obstruction with distal right lower quadrant transition zone noted. Patient had surgery earlier in the year in [place]. NG tube to suction. Patient may take his medications. -Recent Acute right basal pneumonia in a patient with Recurrent pneumonia in a patient with underlying COPD. recent cultures have been positive sputum positive for stenitophomas maltophilia, MRSA, E. coli. And now on January 23 positive for pseudomonas aeruginosa. IV meropenem every 8. Levaquin. PICC line . Patient will complete after today 2 weeks of antibiotics as prescribed. -COPD in a previous smoker: Better DuoNeb 4 times a day. oral prednisone. Perforomist. Nebulized steroids. -Chronic hypoxic respiratory failure from COPD Home oxygen 2 L -Hyperuricemia Allopurinol 100 mg a day -Factor V Leyden mutation -Right upper lung nodule treated with the radiation Follow with pulmonary -Essential hypertension Lopressor 25 mg twice a day -BPH Cardura 4 mg a day -Anxiety not otherwise specified Xanax when necessary -Chronic kidney disease likely nephrosclerosis stage III Follow renal function -Acute kidney injury, prerenal from decreased oral intake. IV fluids Baseline creatinine 1.11 Continue IV meropenem and Levaquin through today. That'll complete 2 weeks of antibiotics. NG tube to suction. GIVE medications through NG tube. Also suction 2 hours of the same. IV fluids. Repeat labs. Care was discussed with the patient. Thank you Dr. Munoz Past Medical History Past Medical History: Blood Disorder, Cancer, COPD, Deep Vein Thrombosis (DVT), GERD/Reflux, Hypertension, Pneumonia, Renal Disease Additional Past Medical History / Comment(s): hx of pseudomonus lung infection, uses CPAP not for sleep apnea, O2 prn 2l prn, diverticulits, Factor V Leiden, hx of bronchial silicone stent now removed, PICC line in past now removed, past hx dialysis for kidney damage, none currently, Stage 3 renal disease, Lung cancer - diagnosed and treated down in [place], Colostomy, hernia repair History of Any Multi-Drug Resistant Organisms: MRSA Year Discovered:: 08/30/21 MDRO Source:: Sputum Past Surgical History: Hernia Repair, Tonsillectomy Additional Past Surgical History / Comment(s): bronchoscopy, bronchial silicone stent, now removed, fatty tumor removed from chest area, COLONOSCOPY, alexandre cataract, hernia repair Past Anesthesia/Blood Transfusion Reactions: Previous Problems w/ Anesthesia Additional Past Anesthesia/Blood Transfusion Reaction / Comm: "as turned black and blue from ETHER". FACTOR V LEIDEN Past Psychological History: Anxiety Smoking Status: Former smoker Past Alcohol Use History: None Reported Past Drug Use History: None Reported - Past Family History Father Family Medical History: Cancer Additional Family Medical History / Comment(s): colon cancer Mother Family Medical History: Cancer Additional Family Medical History / Comment(s): leukemia Medications and Allergies Home Medications Medication Instructions Recorded Confirmed Type Montelukast Sodium [Singulair] 10 mg PO DAILY 01/24/14 02/17/22 History Albuterol Nebulized [Ventolin 2.5 mg INHALATION RT-TID PRN 07/25/16 02/17/22 History Nebulized] Metoprolol Tartrate [Lopressor] 25 mg PO BID 07/25/16 02/17/22 History Cetirizine HCl [Zyrtec] 10 mg PO DAILY 08/19/16 02/17/22 History ALPRAZolam [Xanax] 0.5 mg PO TID PRN 09/01/18 02/17/22 History Doxazosin [Cardura] 4 mg PO DAILY 09/01/18 02/17/22 History L.acidoph,Paracasei, B.lactis 1 cap PO DAILY 09/01/18 02/17/22 History [Probiotic] Sodium Chloride 0.9% Nebuliz 3 ml INHALATION RT-QID 09/01/18 02/17/22 History [Saline 0.9% For Nebulization] allopurinoL [Zyloprim] 100 mg PO DAILY 11/21/19 02/17/22 History Albuterol Sulfate [Ventolin HFA] 2 puff INHALATION RT-QID PRN 10/21/21 02/17/22 History Budesonide 0.25 mg INHALATION RT-BID 10/21/21 02/17/22 History Fluticasone/Umeclidin/Vilanter 1 puff INHALATION RT-DAILY 10/21/21 02/17/22 History [Trelegy Ellipta 100-62.5-25] Acetaminophen Tab [Tylenol] 650 mg PO Q6HR PRN tab 10/25/21 02/17/22 Rx Ascorbic Acid [Vitamin C] 1,000 mg PO DAILY 01/29/22 02/17/22 History Aspirin 81 mg PO DAILY 01/29/22 02/17/22 History Cholecalciferol [Vitamin D3 (25 50 mcg PO DAILY 01/29/22 02/17/22 History Mcg = 1000 Iu)] Ipratropium-Albuterol Nebulize 3 ml INHALATION RT-BID 01/29/22 02/17/22 History [Duoneb 0.5 mg-3 mg/3 ml Soln] Lisinopril-Hctz 10-12.5 mg 0.5 tab PO DAILY 01/29/22 02/17/22 History [Zestoretic 10-12.5] Magnesium Oxide [Mag-Ox] 400 mg PO HS 01/29/22 02/17/22 History Pantoprazole Sodium [Protonix] 20 mg PO DAILY 01/29/22 02/17/22 History Psyllium Husk 100% [Metamucil 6 gm PO DAILY packet 02/03/22 02/17/22 Rx Packet] Levofloxacin [Levaquin] 750 mg PO DAILY@1200 02/17/22 02/17/22 History Meropenem [Merrem] 1 gm IVPB TID@0000,0800,1600 02/17/22 02/17/22 History guaiFENesin [Mucinex] 600 mg PO BID 02/17/22 02/17/22 History Allergies Allergy/AdvReac Type Severity Reaction Status Date / Time cefepime Allergy SHUT DOWN Verified 02/17/22 11:36 KIDNEYS ether Allergy Anaphylaxis Verified 02/17/22 11:36 Iodinated Contrast Media Allergy PAST Verified 02/17/22 11:36 [Iodinated Contrast Media - HISTORY OF Oral and] KIDNEY PROBLEMS venom-honey bee Allergy Anaphylaxis Verified 02/17/22 11:36 sulfamethoxazole AdvReac states Verified 02/17/22 11:36 [From Bactrim] effects kidneys trimethoprim [From Bactrim] AdvReac states Verified 02/17/22 11:36 effects kidneys Physical Exam Vitals: Vital Signs Temp Pulse Resp BP Pulse Ox 02/17/22 14:00 66 17 109/63 100 02/17/22 12:50 97.1 F L 67 16 87/59 95 02/17/22 12:48 69 17 92 L 02/17/22 09:08 97.5 F L 96 24 97/55 97 Intake and Output 02/16/22 02/17/22 02/17/22 22:59 06:59 14:59 Other: Weight 75.296 kg Results CBC & Chem 7: 02/17/22 09:48 02/17/22 09:48 Labs: Abnormal Lab Results - Last 24 Hours (Table) 02/17/22 02/17/22 02/17/22 Range/Units 09:48 09:48 13:06 WBC 11.6 H (3.8-10.6) k/uL RBC 3.91 L (4.30-5.90) m/uL Hgb 12.3 L (13.0-17.5) gm/dL Hct 36.9 L (39.0-53.0) % Neutrophils # 10.0 H (1.3-7.7) k/uL Lymphocytes # 0.6 L (1.0-4.8) k/uL BUN 39 H (9-20) mg/dL Creatinine 1.55 H (0.66-1.25) mg/dL Glucose 106 H (74-99) mg/dL Total Bilirubin 2.2 H (0.2-1.3) mg/dL Total Protein 5.8 L (6.3-8.2) g/dL Albumin 3.3 L (3.5-5.0) g/dL Lipase 327 H (23-300) U/L Urine Protein 1+ H (Negative) Urine Ketones 1+ H (Negative) Ur Leukocyte Esterase Small H (Negative) Urine WBC 7 H (0-5) /hpf Urine Mucus Rare H (None) /hpf
[2022-02-17] MEDS ORDERED: MEROPENEM 1 GM VIAL IVPB SCH (16:00)
[2022-02-17] MEDS: MEROPENEM 1 GM in SODIUM CHLORIDE 0.9% 100 ML IVPB SCH ×2 (16:27→23:58)
[2022-02-17] MEDS: HYDROmorphone 0.5 MG/0.5 ML SYRINGE IVP PRN ×3 (16:30→22:00)
[2022-02-17] MEDS: IPRATROPIUM 0.5 MG/2.5 ML NEBU INHALATION SCH ×2 (16:53→18:08)
[2022-02-17] MEDS: IPRATROPIUM-ALBUTEROL 3 ML NEB INHALATION SCH ×3 (16:53→20:00)
[2022-02-17] MEDS ORDERED: IPRATROPIUM-ALBUTEROL 3 ML NEB INHALATION SCH (20:00)
[2022-02-17] MEDS: SYMBICORT 80-4.5 MCG INHALER INHALATION SCH (20:00)
[2022-02-17] MEDS ORDERED: BUDESONIDE 0.25 MG/2 ML NEBU INHALATION SCH (20:00)
--- NOTE | 2022-02-17 20:03 | P.CNPUL ---
History of Present Illness Consult date: 02/17/22 Reason for consult: COPD History of present illness: This is a 76-year-old male who is very well-known to me, hospitalized on multiple occasions for pneumonia with gram-negative most recent infection was related to Pseudomonas and the patient was taken off the patient antibiotics with IV meropenem. The patient has history of COPD, lung mass that was treated with SBR T and history of tracheal bronchomalacia. He has had multiple pneumonias and multiple hospitalizations in the past for the same. During the most recent hospitalization of jan 2022, the patient was treated for a recurrent Pseudomonas pneumonia Note that the patient has had previous infections with Pseudomonas, stenotrophomonas, and MRSA. The patient came into the ED with complaints of diffuse abdominal pain but more in the right lower abdomen. Patient reports that his abdominal pain started Thursday morning. The pain came on suddenly. He'd been nauseated and having acid reflux. She reports that his ostomy output had decreased he was still making a small amount of stool through his ostomy. But has stopped having any flatus over the last couple a days. Patient does have a prior history of diverticulitis with perforation requiring bowel resection with colostomy placement in March 2021 in [place]. He also has a past surgical history of a right inguinal hernia repair. Patient had a computed tomography scan abdomen and pelvis showing a small bowel obstruction. NG tube is being placed in the ER. History of a pulmonary lung nodule requiring radiation treatment. . He does have factor V Leiden mutation. Review of Systems CONSTITUTIONAL: Denies any recent significant weight loss or weight gain. EYES: Denies change in vision. EARS, NOSE, MOUTH, THROAT: Denies headaches, denies sore throat. CARDIOVASCULAR: Denies chest pain, palpitations or syncopal episodes. RESPIRATORY: Positive for shortness of breath, cough, congestion no hemoptysis. GASTROINTESTINAL: Abdominal pain and distention and diminished with from the colostomy site GENITOURINARY: Denies hematuria, denies infections. MUSKULOSKELETAL: Denies pain, denies swelling. INTEGUMENTARY: Denies rash, denies eczema. NEUROLOGICAL: Denies recent memory loss, no recent seizure activity. PSYCHIATRIC: Denies anxiety, denies depression. HEMATOLOGIC/LYMPHATIC: Denies anemia, denies enlarged lymph nodes. Past Medical History Past Medical History: Blood Disorder, Cancer, COPD, Deep Vein Thrombosis (DVT), GERD/Reflux, Hypertension, Pneumonia, Renal Disease Additional Past Medical History / Comment(s): hx of pseudomonus lung infection, uses CPAP not for sleep apnea, O2 prn 2l prn, diverticulits, Factor V Leiden, hx of bronchial silicone stent now removed, PICC line in past now removed, past hx dialysis for kidney damage, none currently, Stage 3 renal disease, Lung cancer - diagnosed and treated down in [place], Colostomy, hernia repair History of Any Multi-Drug Resistant Organisms: MRSA Date of last positivie culture/infection: 08/30/21 MDRO Source:: Sputum Past Surgical History: Hernia Repair, Tonsillectomy Additional Past Surgical History / Comment(s): bronchoscopy, bronchial silicone stent, now removed, fatty tumor removed from chest area, COLONOSCOPY, alexandre cataract, hernia repair Past Anesthesia/Blood Transfusion Reactions: Previous Problems w/ Anesthesia Additional Past Anesthesia/Blood Transfusion Reaction / Comment(s): "as turned black and blue from ETHER". FACTOR V LEIDEN Past Psychological History: Anxiety Smoking Status: Former smoker Past Alcohol Use History: None Reported Past Drug Use History: None Reported - Past Family History Father Family Medical History: Cancer Additional Family Medical History / Comment(s): colon cancer Mother Family Medical History: Cancer Additional Family Medical History / Comment(s): leukemia Medications and Allergies Home Medications Medication Instructions Recorded Confirmed Type Montelukast Sodium [Singulair] 10 mg PO DAILY 01/24/14 02/17/22 History Albuterol Nebulized [Ventolin 2.5 mg INHALATION RT-TID PRN 07/25/16 02/17/22 History Nebulized] Metoprolol Tartrate [Lopressor] 25 mg PO BID 07/25/16 02/17/22 History Cetirizine HCl [Zyrtec] 10 mg PO DAILY 08/19/16 02/17/22 History ALPRAZolam [Xanax] 0.5 mg PO TID PRN 09/01/18 02/17/22 History Doxazosin [Cardura] 4 mg PO DAILY 09/01/18 02/17/22 History L.acidoph,Paracasei, B.lactis 1 cap PO DAILY 09/01/18 02/17/22 History [Probiotic] Sodium Chloride 0.9% Nebuliz 3 ml INHALATION RT-QID 09/01/18 02/17/22 History [Saline 0.9% For Nebulization] allopurinoL [Zyloprim] 100 mg PO DAILY 11/21/19 02/17/22 History Albuterol Sulfate [Ventolin HFA] 2 puff INHALATION RT-QID PRN 10/21/21 02/17/22 History Budesonide 0.25 mg INHALATION RT-BID 10/21/21 02/17/22 History Fluticasone/Umeclidin/Vilanter 1 puff INHALATION RT-DAILY 10/21/21 02/17/22 History [Trelegy Ellipta 100-62.5-25] Acetaminophen Tab [Tylenol] 650 mg PO Q6HR PRN tab 10/25/21 02/17/22 Rx Ascorbic Acid [Vitamin C] 1,000 mg PO DAILY 01/29/22 02/17/22 History Aspirin 81 mg PO DAILY 01/29/22 02/17/22 History Cholecalciferol [Vitamin D3 (25 50 mcg PO DAILY 01/29/22 02/17/22 History Mcg = 1000 Iu)] Ipratropium-Albuterol Nebulize 3 ml INHALATION RT-BID 01/29/22 02/17/22 History [Duoneb 0.5 mg-3 mg/3 ml Soln] Lisinopril-Hctz 10-12.5 mg 0.5 tab PO DAILY 01/29/22 02/17/22 History [Zestoretic 10-12.5] Magnesium Oxide [Mag-Ox] 400 mg PO HS 01/29/22 02/17/22 History Pantoprazole Sodium [Protonix] 20 mg PO DAILY 01/29/22 02/17/22 History Psyllium Husk 100% [Metamucil 6 gm PO DAILY packet 02/03/22 02/17/22 Rx Packet] Levofloxacin [Levaquin] 750 mg PO DAILY@1200 02/17/22 02/17/22 History Meropenem [Merrem] 1 gm IVPB TID@0000,0800,1600 02/17/22 02/17/22 History guaiFENesin [Mucinex] 600 mg PO BID 02/17/22 02/17/22 History Allergies Allergy/AdvReac Type Severity Reaction Status Date / Time cefepime Allergy SHUT DOWN Verified 02/17/22 11:36 KIDNEYS ether Allergy Anaphylaxis Verified 02/17/22 11:36 Iodinated Contrast Media Allergy PAST Verified 02/17/22 11:36 [Iodinated Contrast Media - HISTORY OF Oral and] KIDNEY PROBLEMS venom-honey bee Allergy Anaphylaxis Verified 02/17/22 11:36 sulfamethoxazole AdvReac states Verified 02/17/22 11:36 [From Bactrim] effects kidneys trimethoprim [From Bactrim] AdvReac states Verified 02/17/22 11:36 effects kidneys Physical Exam Vitals: Vital Signs Temp Pulse Resp BP Pulse Ox 02/17/22 19:20 103 H 13 112/66 93 L 02/17/22 18:34 90 22 104/77 94 L 02/17/22 16:32 77 16 107/65 94 L 02/17/22 15:37 77 17 116/67 96 02/17/22 14:00 66 17 109/63 100 02/17/22 12:50 97.1 F L 67 16 87/59 95 02/17/22 12:48 69 17 92 L 02/17/22 09:08 97.5 F L 96 24 97/55 97 Intake and Output 02/17/22 02/17/22 02/17/22 06:59 14:59 22:59 Other: Weight 75.296 kg GENERAL EXAM: Alert, pleasant 68-year-old male, on 2 L nasal cannula, comfortable in no apparent distress. The patient is a NG tube in place HEAD: Normocephalic. EYES: Normal reaction of pupils, equal size. NOSE: Clear with pink turbinates. THROAT: No erythema or exudates. NECK: No masses, no JVD. CHEST: No chest wall deformity. LUNGS: Equal air entry with crackles in the right lung base CVS: S1 and S2 normal with no audible murmur, regular rhythm. ABDOMEN: Distended. Umbilical hernia reducible nontender. Tenderness at palpation diffuse abdomen but more in the right lower quadrant. Ostomy bag on the side of abdomen SPINE: No scoliosis or deformity SKIN: No rashes CENTRAL NERVOUS SYSTEM: No focal deficits, tone is normal in all 4 extremities. EXTREMITIES: There is no peripheral edema. No clubbing, no cyanosis. Peripheral pulses are intact. Results - Laboratory Findings CBC and BMP: 02/17/22 09:48 02/17/22 09:48 Abnormal lab findings: Abnormal Labs 02/17/22 02/17/2222 09:48 09:48 13:06 WBC 11.6 H RBC 3.91 L Hgb 12.3 L Hct 36.9 L Neutrophils # 10.0 H Lymphocytes # 0.6 L BUN 39 H Creatinine 1.55 H Glucose 106 H Total Bilirubin 2.2 H Total Protein 5.8 L Albumin 3.3 L Lipase 327 H Urine Protein 1+ H Urine Ketones 1+ H Ur Leukocyte Esterase Small H Urine WBC 7 H Urine Mucus Rare H - Diagnostic Findings Chest x-ray: image reviewed Assessment and Plan Plan: Small bowel obstruction with distal right lower quadrant transition point noted on computed tomography scan, Prior history of diverticulitis with perforation and bowel resection with colostomy placement Umbilical hernia reducible Gallbladder sludge noted on CT, no evidence of cholecystitis Recurrent pneumonia. The patient is having recurrent pneumon ia/tracheobronchitis with pseudomonas and other gram-negative bacteria. Currently on IV meropenem. 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 coli, MRSA Right upper lobe pulmonary nodule avid on the previous PET scan and this was active on a PET scan and the patient was treated with SBRT Right renal mass being followed up on outpatient basis Factor 5 Leyden mutation Previous history of left lower extremity DVT Hypertension Chronic stage III kidney disease History of colonic perforation requiring colectomy and colostomy. Obstructive sleep apnea not using CPAP therapy Diverticulosis with previous history of diverticulitis Multiple hepatic cysts Plan NG tube placed for decompression Gen surgery consult Keep patient nothing by mouth Continue IV fluids Continue pain medication as needed Continue antiemetics as needed Continue and complete the course of Merrem Use Trelegy from home for COPD Heparin SC for DVT prophylaxis
[2022-02-17] MEDS: HEPARIN SODIUM,PORCINE/PF 5,000 UNIT/0.5 ML SYRINGE SQ SCH (21:59)
[2022-02-17] MEDS: METOPROLOL TARTRATE 25 MG TAB PO SCH (22:01)
[2022-02-17] MEDS: MAGNESIUM OXIDE 400 MG TAB PO SCH (22:01)
[2022-02-17] MEDS: guaiFENesin 600 MG TABLET.ER PO SCH (22:01)
[2022-02-18] MEDS: HYDROmorphone 0.5 MG/0.5 ML SYRINGE IVP PRN ×5 (05:26→21:42)
[2022-02-18] MEDS: SYMBICORT 80-4.5 MCG INHALER INHALATION SCH ×2 (07:14→20:32)
[2022-02-18] MEDS: IPRATROPIUM-ALBUTEROL 3 ML NEB INHALATION SCH ×4 (07:14→20:32)
[2022-02-18 09:02] LABS: Basophils # (A) 0.02 X 10*3/uL (0.00-0.10); Basophils % (A) 0.1 %; Eosinophils # (A) 0.18 X 10*3/uL (0.04-0.35); Eosinophils % (A) 1.2 %; HCT 30.2 % (39.6-50.0); Immature Grans, Automated 0.6 %; Lymphocytes # (A) 0.73 X 10*3/uL (0.90-5.00); Lymphocytes % (A) 4.9 %; MCH 30.8 pg (27.0-32.0); MCHC 33.1 g/dL (32.0-37.0); MCV 92.9 fL (80.0-97.0); Mean Platelet Volume 11.6 fL (9.5-12.2); Monocytes # (A) 0.83 X 10*3/uL (0.20-1.00); Monocytes % (A) 5.5 %; NRBC Per 100 WBC 0 /100 WBCS (0.0-0.0); Neutrophils # (A) 13.15 X 10*3/uL (1.80-7.70); Neutrophils % (A) 87.7 %; Platelet Count 199 X 10*3/uL (140-440); RBC 3.25 X 10*6/uL (4.40-5.60); RDW 15.8 % (11.5-14.5)
[2022-02-18 09:27] LABS: African American GFR (CKD) 43.8 (60.0-200.0); Anion Gap 7.9 mmol/L (10.00-18.00); BUN/Creat Ratio 22.47 Ratio (12.00-20.00); Blood Urea Nitrogen 38.2 mg/dL (9.0-27.0); Calcium 8.4 mg/dL (8.7-10.3); Carbon Dioxide 25.1 mmol/L (20.0-27.5); Non-African American GFR(CKD) 37.8 (60.0-200.0); Potassium 4.8 mmol/L (3.5-5.5)
[2022-02-18] MEDS: MEROPENEM 1 GM in SODIUM CHLORIDE 0.9% 100 ML IVPB SCH ×3 (09:36→23:16)
[2022-02-18] MEDS: PANTOPRAZOLE 40 MG TABLET PO SCH (09:38)
[2022-02-18] MEDS: LACTOBACILLUS ACIDOPH & BULGAR 1 EACH PACKET PO SCH (09:38)
[2022-02-18] MEDS: DOXAZOSIN 4 MG TAB PO SCH (09:38)
[2022-02-18] MEDS: LISINOPRIL-HCTZ 10-12.5 MG 1 EACH TAB PO SCH (09:38)
[2022-02-18] MEDS: allopurinoL 100 MG TAB PO SCH (09:38)
[2022-02-18] MEDS: guaiFENesin 600 MG TABLET.ER PO SCH ×2 (09:38→20:08)
[2022-02-18] MEDS: HEPARIN SODIUM,PORCINE/PF 5,000 UNIT/0.5 ML SYRINGE SQ SCH ×2 (09:38→20:08)
[2022-02-18] MEDS: MONTELUKAST 10 MG TAB PO SCH (09:38)
[2022-02-18] MEDS: METOPROLOL TARTRATE 25 MG TAB PO SCH ×2 (09:38→20:08)
[2022-02-18] MEDS ORDERED: LEVOFLOXACIN 750 MG TAB PO SCH (12:00)
--- NOTE | 2022-02-18 13:25 | P.PN ---
Subjective Progress Note Date: 02/18/22 This is a 76-year-old male who is very well-known to me, hospitalized on multiple occasions for pneumonia with gram-negative most recent infection was related to Pseudomonas and the patient was taken off the patient antibiotics with IV meropenem. The patient has history of COPD, lung mass that was treated with SBR T and history of tracheal bronchomalacia. He has had multiple pneumonias and multiple hospitalizations in the past for the same. During the most recent hospitalization of jan 2022, the patient was treated for a recurrent Pseudomonas pneumonia Note that the patient has had previous infections with Pseudomonas, stenotrophomonas, and MRSA. The patient came into the ED with complaints of diffuse abdominal pain but more in the right lower abdomen. Patient reports that his abdominal pain started Thursday morning. The pain came on suddenly. He'd been nauseated and having acid reflux. She reports that his ostomy output had decreased he was still making a small amount of stool through his ostomy. But has stopped having any flatus over the last couple a days. Patient does have a prior history of diverticulitis with perforation requiring bowel resection with colostomy placement in March 2021 in [place]. He also has a past surgical history of a right inguinal hernia repair. Patient had a computed tomography scan abdomen and pelvis showing a small bowel obstruction. NG tube is being placed in the ER. History of a pulmonary lung nodule requiring radiation treatment. He does have factor V Leiden mutation. The patient is seen today 02/18/2022 in follow-up on the regular medical floor. He is currently sitting up at the bedside. Awake and alert in no acute distr ess. Nasogastric tube remains in place. Still with very minimal output of the ostomy. White count 15.0. Hemoglobin 10.0. Sodium 139. Potassium 4.8. BUN 38. Creatinine 1.7. He is continued on DuoNeb inhalations, Symbicort, Singulair. Heparin for DVT prophylaxis. Surgical services are on the case. He is currently on antibiotics in the form of meropenem. Objective - Vital Signs Vital signs: Vital Signs Temp 99.7 F H 02/18/22 04:57 Pulse 106 H 02/18/22 11:25 Resp 20 02/18/22 04:57 BP 115/66 02/18/22 09:31 Pulse Ox 89 L 02/18/22 07:19 FiO2 Intake & Output 02/17/22 02/18/22 02/18/22 18:59 06:59 18:59 Intake Total 0 Output Total 300 Balance -300 Weight 75.296 kg Intake: Oral 0 Output: Urine 300 - Exam GENERAL EXAM: Alert, pleasant 76-year-old male, on 4 L nasal cannula, comfortable in no apparent distress. HEAD: Normocephalic. EYES: Normal reaction of pupils, equal size. NOSE: Nasogastric tube secured in place. Clear with pink turbinates. THROAT: No erythema or exudates. NECK: No masses, no JVD. CHEST: No chest wall deformity. LUNGS: Equal air entry with crackles in the right lung base CVS: S1 and S2 normal with no audible murmur, regular rhythm. ABDOMEN: Distended. Umbilical hernia reducible nontender. Tenderness at palpation diffuse abdomen but more in the right lower quadrant. Ostomy bag on the side of abdomen SPINE: No scoliosis or deformity SKIN: No rashes CENTRAL NERVOUS SYSTEM: No focal deficits, tone is normal in all 4 extremities. EXTREMITIES: There is no peripheral edema. No clubbing, no cyanosis. Peripheral pulses are intact. - Labs CBC & Chem 7: 02/18/22 06:13 02/18/22 06:13 Labs: Abnormal Lab Results - Last 24 Hours (Table) 02/17/22 02/18/22 02/18/22 Range/Units 13:06 06:13 06:13 WBC 15.00 H (4.50-10.00) X 10*3/uL RBC 3.25 L (4.40-5.60) X 10*6/uL Hgb 10.0 L (13.0-17.0) g/dL Hct 30.2 L (39.6-50.0) % RDW 15.8 H (11.5-14.5) % Immature Gran # 0.09 H (0.00-0.04) X 10*3/uL Neutrophils # 13.15 H (1.80-7.70) X 10*3/uL Lymphocytes # 0.73 L (0.90-5.00) X 10*3/uL Anion Gap 7.90 L (10.00-18.00) mmol/L BUN 38.2 H (9.0-27.0) mg/dL Creatinine 1.7 H (0.6-1.5) mg/dL Est GFR (CKD-EPI)AfAm 43.8 L (60.0-200.0) Est GFR (CKD-EPI)NonAf 37.8 L (60.0-200.0) BUN/Creatinine Ratio 22.47 H (12.00-20.00) Ratio Calcium 8.4 L (8.7-10.3) mg/dL Urine Protein 1+ H (Negative) Urine Ketones 1+ H (Negative) Ur Leukocyte Esterase Small H (Negative) Urine WBC 7 H (0-5) /hpf Urine Mucus Rare H (None) /hpf Assessment and Plan Assessment: Small bowel obstruction with distal right lower quadrant transition point noted on computed tomography scan, Prior history of diverticulitis with perforation and bowel resection with colostomy placement Umbilical hernia reducible Gallbladder sludge noted on CT, no evidence of cholecystitis Recurrent pneumonia. The patient is having recurrent pneumonia/tracheobronchitis with pseudomonas and other gram-negative bacteria. Currently on IV meropenem. 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 coli, MRSA Right upper lobe pulmonary nodule avid on the previous PET scan and this was active on a PET scan and the patient was treated with SBRT Right renal mass being followed up on outpatient basis Factor 5 Leyden mutation Previous history of left lower extremity DVT Hypertension Chronic stage III kidney disease History of colonic perforation requiring colectomy and colostomy. Obstructive sleep apnea not using CPAP therapy Diverticulosis with previous history of diverticulitis Multiple hepatic cysts Plan: The patient was seen and evaluated Medications and labs reviewed Currently stable from the pulmonary standpoint Remains nothing by mouth with nasogastric tube in place per surgical services We will continue to follow I have personally seen and examined the patient, performed the documentation and the assessment and plan as written. Number of minutes spent on the visit: 10. There is a joint evaluation that was done along with a nurse practitioner. His evaluation was done in more than 20 minutes.
[2022-02-18] MEDS: SODIUM CHLORIDE 0.9% 1,000 ML IV SCH ×2 (13:37→23:17)
--- NOTE | 2022-02-18 14:52 | P.PN ---
Subjective Progress Note Date: 02/18/22 CHIEF COMPLAINT: Small bowel obstruction HISTORY OF PRESENT ILLNESS: Patient continues to have abdominal pain. No output through his ostomy. He denies any nausea. He does have NG tube in place there is about 200 mL output in canister. He is afebrile. Mildly tachycardic. He is followed closely by pulmonary service. He does have active pneumonia. He does have cough. WBC is up from 11-15 hemoglobin is 10 platelets 199 sodium is 139 potassium 4.8 creatinine is 1.7 Patient seen and examined by Dr. mackay PHYSICAL EXAM: VITAL SIGNS: Reviewed. GENERAL: Well-developed in no acute distress. HEENT: No sclera icterus. Extraocular movements grossly intact. Moist buccal mucosa. Head is atraumatic, normocephalic. ABDOMEN: Distended. Right lower abdomen tenderness. Ostomy bag with no air or stool. Does have evidence of a parastomal hernia and umbilical hernia NEUROLOGIC: Alert and oriented. Cranial nerves II through XII grossly intact. ASSESSMENT: 1. Small bowel obstruction with distal right lower quadrant transition point noted on computed tomography scan 2. Umbilical hernia reducible 3. Parastomal hernia 4. Gallbladder sludge noted on CT. Patient denies any right upper quadrant pain 5. Prior history of diverticulitis with perforation and bowel resection with colostomy placement PLAN: -Patient scheduled for exploratory laparotomy and lysis of adhesions tomorrow, 1 04/22/[address] mackay -Keep patient nothing by mouth -Continue NG tube for decompression -Appreciate pulmonary services recommendations -Continue antibiotics for pneumonia -Continue IV fluids -Continue pain medication and antiemetics -Continue GI and DVT prophylaxis Physician Exhibit Technician note has been reviewed by physician. Signing provider agrees with the documented findings, assessment, and plan of care. Objective - Vital Signs Vital signs: Vital Signs Temp 98.2 F 02/18/22 12:55 Pulse 81 02/18/22 12:55 Resp 18 02/18/22 12:55 BP 98/61 02/18/22 12:55 Pulse Ox 97 02/18/22 12:55 FiO2 Intake & Output 02/17/22 02/18/22 02/18/22 18:59 06:59 18:59 Intake Total 0 Output Total 300 Balance -300 Weight 75.296 kg Intake: Oral 0 Output: Urine 300 - Labs CBC & Chem 7: 02/18/22 06:13 02/18/22 06:13 Labs: Abnormal Lab Results - Last 24 Hours (Table) 02/18/22 02/18/22 Range/Units 06:13 06:13 WBC 15.00 H (4.50-10.00) X 10*3/uL RBC 3.25 L (4.40-5.60) X 10*6/uL Hgb 10.0 L (13.0-17.0) g/dL Hct 30.2 L (39.6-50.0) % RDW 15.8 H (11.5-14.5) % Immature Gran # 0.09 H (0.00-0.04) X 10*3/uL Neutrophils # 13.15 H (1.80-7.70) X 10*3/uL Lymphocytes # 0.73 L (0.90-5.00) X 10*3/uL Anion Gap 7.90 L (10.00-18.00) mmol/L BUN 38.2 H (9.0-27.0) mg/dL Creatinine 1.7 H (0.6-1.5) mg/dL Est GFR (CKD-EPI)AfAm 43.8 L (60.0-200.0) Est GFR (CKD-EPI)NonAf 37.8 L (60.0-200.0) BUN/Creatinine Ratio 22.47 H (12.00-20.00) Ratio Calcium 8.4 L (8.7-10.3) mg/dL
--- NOTE | 2022-02-18 17:29 | P.PN ---
Progress Note - Text Progress Note Date: 02/18/22 - Chief Complaint Abdominal pain Hospital course: This is a 76-year-old patient who follows with Dr. Keshawn Suarez. Chronic stable medical conditions include DVT, GERD, hypertension, uses CPAP, home oxygen 2 L , factor 5 Leyden, bronchial silicone stent now removed, prior history of hemodialysis, lung cancer diagnosed and treated in [place]. Colostomy.April 12 2021, in [place] - bowel perforation -had 4 inches of large bowel removed. - colostomy. During that hospitalization he also pneumonia. Then in July again had a lung infection. - port placed / 2 weeks of antibiotics. October 2021 admitted to [facility] in treated with ceftazidime. Following discharge diagnosed with E. coli on November 20 and treated with antibiotics by Dr. Cortez. Patient discharged from the hospital on December 12 with drug-resistant E. coli with 2 weeks of IV Invanz. Subsequent pneumonia with multidrug resistance Pseudomonas aeruginosa, sensitive to imipenem. 01/30/2022 again admitted with pneumonia. This occasion sputum positive for Pseudomonas aeruginosa and Stenotrophomonas maltophilia. Discharge and IV meropenem and Levaquin. To be completed on February 17. Yesterday morning around 3:00 patient started having increasing abdominal pain. Pain progressed to get worse. No nausea vomiting. Became somewhat uncomfortable. Last bowel movement was 2 days ago. Patient's breathing is better. Some congestion. She does phlegm. No fever no chills. Finally presented to the ER. Computed tomography scan showed small bowel obstruction. NG tube placed. 02/18/2022: Seen by me this morning today. NG tube in place. No stool out of the ostomy bag. Abdomen still distended. We'll continue antibiotics for now. Active Medications Albuterol Sulfate (Albuterol Nebulized 2.5 Mg/3 Ml) 2.5 mg INHALATION RT-TID PRN PRN Reason: Shortness Of Breath Albuterol/Ipratropium (Ipratropium-Albuterol 3 Ml Neb) 3 ml INHALATION RT-QID [facility] Last Admin: 02/18/22 16:16 Dose: Not Given Allopurinol (Allopurinol 100 Mg Tab) 100 mg PO DAILY [facility] Last Admin: 02/18/22 09:38 Dose: 100 mg Alprazolam (Alprazolam 0.5 Mg Tab) 0.5 mg PO TID PRN PRN Reason: Anxiety Budesonide/Formoterol Fumarate (Symbicort 80-4.5 Mcg Inhaler) 2 puff INHALATION RT-BID [facility] Last Admin: 02/18/22 07:14 Dose: 2 puff Doxazosin Mesylate (Doxazosin 4 Mg Tab) 4 mg PO DAILY [facility] Last Admin: 02/18/22 09:38 Dose: 4 mg Guaifenesin (Guaifenesin 600 Mg Tablet.Er) 600 mg PO BID [facility] Last Admin: 02/18/22 09:38 Dose: 600 mg Lisinopril/HCTZ (Lisinopril-Hctz 10-12.5 Mg 1 Each Tab) 0.5 each PO DAILY [facility] Last Admin: 02/18/22 09:38 Dose: 0.5 each Heparin Sodium (Porcine) (Heparin Sodium,Porcine/Pf 5,000 Unit/0.5 Ml Syringe) 5,000 unit SQ Q12HR [facility] Last Admin: 02/18/22 09:38 Dose: 5,000 unit Hydromorphone HCl (Hydromorphone 0.5 Mg/0.5 Ml Syringe) 0.5 mg IVP Q3HR PRN PRN Reason: Moderate Pain (Scale 4 to 6) Last Admin: 02/18/22 13:36 Dose: 0.5 mg Sodium Chloride (Saline 0.9%) 1,000 mls @ 75 mls/hr IV .[id number] [facility] Last Admin: 02/18/22 13:37 Dose: 75 mls/hr Meropenem 1 gm/ Sodium (Chloride) 100 mls @ 33.333 mls/hr IVPB Q8HR [facility]; Protocol Last Admin: 02/18/22 16:32 Dose: 33.333 mls/hr Lactobacillus Acidoph/Bulgaricus (Lactobacillus Acidoph & Bulgar 1 Each Packet) 1 each PO DAILY [facility] Last Admin: 02/18/22 09:38 Dose: Not Given Magnesium Oxide (Magnesium Oxide 400 Mg Tab) 400 mg PO HS [facility] Last Admin: 02/17/22 22:01 Dose: Not Given Metoprolol Tartrate (Metoprolol Tartrate 25 Mg Tab) 25 mg PO BID [facility] Last Admin: 02/18/22 09:38 Dose: 25 mg Montelukast Sodium (Montelukast 10 Mg Tab) 10 mg PO DAILY [facility] Last Admin: 02/18/22 09:38 Dose: Not Given Naloxone HCl (Naloxone 0.4 Mg/Ml 1 Ml Vial) 0.2 mg IV Q2M PRN PRN Reason: Opioid Reversal Ondansetron HCl (Ondansetron 4 Mg/2 Ml Vial) 4 mg IVP Q6HR PRN PRN Reason: Nausea And Vomiting Pantoprazole Sodium (Pantoprazole 40 Mg Tablet) 40 mg PO DAILY [facility] Last Admin: 02/18/22 09:38 Dose: 40 mg Past medical history to include: Factor V Leyden mutation, COPD, DVT, GERD, hypertension, COPD, Pseudomonas lung infection, uses CPAP, 2 L home oxygen when necessary, diverticulitis, bronchial silicone stent now removed, hemodialysis now discontinued CK D stage III, right lung solid nodule with radiation treatment. Social history: Lives alone. Smoked 1-2 packs a day for 50 years stopped in 2012. Did drink significant alcohol stopped some time ago. Retired from [employer] and [employer]. Family history: Colon cancer Physical examination: VITAL SIGNS: 98.2, 81, 18, 98/61, 97% on 3 L GENERAL: reclining in bed, anxious. EYES: Pupils equal. Conjunctiva normal. HEENT: External appearance of nose and ears normal, oral cavity grossly normal NG tube to suction. NECK: JVD not raised; masses not palpable. HEART: First and second heart sounds are normal; no edema. LUNGS: Respiratory rate increased; increased breath sound mild wheezing. ABDOMEN: Soft, distended, minimally tender, liver spleen not palpable, no masses palpable colostomy bag with no stool. PSYCH: Alert and oriented x3; mood and affect anxiousl. MUSCULOSKELETAL:No Clubbing/cyanosis;muscles-grossly intact. OA INVESTIGATIONS, reviewed in the clinical context: 02/18/2022: White count 15 hemoglobin 10 potassium 4.8 creatinine 1.7 WBC 11.6 hemoglobin 12.3 platelets 209 potassium 4.7 BUN 39 creatinine 1.55 Computed tomography scan abdomen and pelvis: Small bowel obstruction with distal right lower quadrant transition zone noted. Umbilical hernia may contain a short segment of small bowel. Assessment plan: - acute small bowel obstruction with distal right lower quadrant transition zone noted. Bowel surgery earlier in the year in [place].: Not improving NG tube to suction. Patient may take his medications. -Recent Acute right basal pneumonia in a patient with Recurrent pneumonia in a patient with underlying COPD. recent cultures have been positive sputum positive for stenitophomas maltophilia, MRSA, E. coli. And now on January 23 positive for pseudomonas aeruginosa. IV meropenem every 8. Levaquin. PICC line . Patient will complete after today 2 weeks of antibiotics as prescribed. -COPD in a previous smoker: Better DuoNeb 4 times a day. oral prednisone. Perforomist. Nebulized steroids. -Chronic hypoxic respiratory failure from COPD Home oxygen 2 L -Hyperuricemia Allopurinol 100 mg a day -Factor V Leyden mutation -Right upper lung nodule treated with the radiation Follow with pulmonary -Essential hypertension Lopressor 25 mg twice a day -BPH Cardura 4 mg a day -Anxiety not otherwise specified Xanax when necessary -Chronic kidney disease likely nephrosclerosis stage III Follow renal function -Acute kidney injury, prerenal from decreased oral intake. IV fluids Baseline creatinine 1.11 Continue IV meropenem and Levaquin in view of possible surgery coming up. NG tube continue with medications. Discussed with patient. Thank you Dr. Munoz
[2022-02-18] MEDS: MAGNESIUM OXIDE 400 MG TAB PO SCH (20:08)
[2022-02-19] MEDS: HYDROmorphone 0.5 MG/0.5 ML SYRINGE IVP PRN ×3 (05:31→21:34)
[2022-02-19 06:44] LABS: African American GFR (CKD) 53 (>60 ml/min/1.73 sqM); Anion Gap 9 mmol/L; Blood Urea Nitrogen 39 mg/dL (9-20); Carbon Dioxide 22 mmol/L (22-30); Chloride 108 mmol/L (98-107); Glucose 69 mg/dL (74-99); Non-African American GFR(CKD) 45 (>60 ml/min/1.73 sqM); Potassium 4.3 mmol/L (3.5-5.1); Sodium 139 mmol/L (137-145)
[2022-02-19 06:56] LABS: Basophils % (A) 0 %; Eosinophils % (A) 0 %; HCT 30.1 % (39.0-53.0); Hypochromasia Slight; Lymphocytes # (A) 0.6 k/uL (1.0-4.8); Lymphocytes % (A) 4 %; MCH 31.2 pg (25.0-35.0); MCHC 32.4 g/dL (31.0-37.0); MCV 96.4 fL (80.0-100.0); Mean Platelet Volume 9.1; Monocytes # (A) 0.5 k/uL (0-1.0); Monocytes % (A) 3 %; Neutrophils # (A) 13.3 k/uL (1.3-7.7); Neutrophils % (A) 92 %; Platelet Count 180 k/uL (150-450); RBC 3.12 m/uL (4.30-5.90); RDW 14.5 % (11.5-15.5); WBC 14.5 k/uL (3.8-10.6)
[2022-02-19 06:57] LABS: HGB 9.8 gm/dL (13.0-17.5)
[2022-02-19 07:20] LABS: Partial Thromboplastin Time 29.1 sec (22.0-30.0); Prothrombin Time 10.2 sec (9.0-12.0)
[2022-02-19] MEDS: IPRATROPIUM-ALBUTEROL 3 ML NEB INHALATION SCH ×4 (07:34→21:29)
[2022-02-19] MEDS: SYMBICORT 80-4.5 MCG INHALER INHALATION SCH ×2 (07:34→21:29)
[2022-02-19] MEDS: DOXAZOSIN 4 MG TAB PO SCH (09:27)
[2022-02-19] MEDS: PANTOPRAZOLE 40 MG TABLET PO SCH (09:27)
[2022-02-19] MEDS: METOPROLOL TARTRATE 25 MG TAB PO SCH ×2 (09:27→21:34)
[2022-02-19] MEDS: LISINOPRIL-HCTZ 10-12.5 MG 1 EACH TAB PO SCH (09:27)
[2022-02-19] MEDS: allopurinoL 100 MG TAB PO SCH (09:27)
[2022-02-19] MEDS: guaiFENesin 600 MG TABLET.ER PO SCH ×2 (09:27→21:34)
[2022-02-19] MEDS: MEROPENEM 1 GM in SODIUM CHLORIDE 0.9% 100 ML IVPB SCH ×3 (09:29→23:46)
[2022-02-19] MEDS: HEPARIN SODIUM,PORCINE/PF 5,000 UNIT/0.5 ML SYRINGE SQ SCH ×2 (09:42→21:34)
[2022-02-19] MEDS: LACTOBACILLUS ACIDOPH & BULGAR 1 EACH PACKET PO SCH (09:42)
[2022-02-19] MEDS: MONTELUKAST 10 MG TAB PO SCH (09:43)
[2022-02-19] MEDS: SODIUM CHLORIDE 0.9% 1,000 ML IV SCH ×2 (11:45→12:47)
[2022-02-19 11:47] LABS: Glucose,Whole Blood 76 mg/dL (70-110)
[2022-02-19] MEDS ORDERED: HEPARIN SODIUM,PORCINE 5,000 UNIT/ML 1 ML VIAL SQ ONE (12:20)
[2022-02-19] MEDS ORDERED: PHENYLEPHRINE-0.9% NACL SYG 1,000 MCG/10 ML SYRINGE ONE (12:42)
[2022-02-19] MEDS ORDERED: SUCCINYLCHOLINE CHLORIDE 200 MG/10 ML VIAL IV ONE (12:42)
[2022-02-19] MEDS ORDERED: LIDOCAINE 2% INJ 20 MG/ML (2 ML VIAL) ONE (12:42)
[2022-02-19] MEDS ORDERED: ROCURONIUM 10 MG/ML (5 ML VIAL) IV ONE (12:42)
[2022-02-19] MEDS ORDERED: HYDROmorphone (PF) 1 MG/ML ONE (12:42)
[2022-02-19] MEDS ORDERED: PROPOFOL 10 MG/ML 20 ML VIAL IV ONE (12:42)
[2022-02-19] MEDS ORDERED: GLYCOPYRROLATE 0.2 MG/ML 2 ML VIAL ONE (12:42)
[2022-02-19] MEDS ORDERED: NEOSTIGMINE 1 MG/ML 10 ML VIAL ONE (12:42)
[2022-02-19] MEDS ORDERED: fentaNYL (PF) 50 MCG/ML 2 ML AMP ONE (12:42)
[2022-02-19] MEDS ORDERED: SODIUM CHLORIDE 0.9% 1,000 ML IV ONE (14:04)
[2022-02-19] MEDS ORDERED: HYDROmorphone 0.5 MG/0.5 ML SYRINGE IVP ONE (14:24)
--- NOTE | 2022-02-19 14:56 | P.PN ---
Subjective Progress Note Date: 02/19/22 This is a 76-year-old male who is very well-known to me, hospitalized on multiple occasions for pneumonia with gram-negative most recent infection was related to Pseudomonas and the patient was taken off the patient antibiotics with IV meropenem. The patient has history of COPD, lung mass that was treated with SBR T and history of tracheal bronchomalacia. He has had multiple pneumonias and multiple hospitalizations in the past for the same. During the most recent hospitalization of jan 2022, the patient was treated for a recurrent Pseudomonas pneumonia Note that the patient has had previous infections with Pseudomonas, stenotrophomonas, and MRSA. The patient came into the ED with complaints of diffuse abdominal pain but more in the right lower abdomen. Patient reports that his abdominal pain started Thursday morning. The pain came on suddenly. He'd been nauseated and having acid reflux. She reports that his ostomy output had decreased he was still making a small amount of stool through his ostomy. But has stopped having any flatus over the last couple a days. Patient does have a prior history of diverticulitis with perforation requiring bowel resection with colostomy placement in March 2021 in [place]. He also has a past surgical history of a right inguinal hernia repair. Patient had a computed tomography scan abdomen and pelvis showing a small bowel obstruction. NG tube is being placed in the ER. History of a pulmonary lung nodule requiring radiation treatment. He does have factor V Leiden mutation. The patient is seen today 02/18/2022 in follow-up on the regular medical floor. He is currently sitting up at the bedside. Awake and alert in no acute distr ess. Nasogastric tube remains in place. Still with very minimal output of the ostomy. White count 15.0. Hemoglobin 10.0. Sodium 139. Potassium 4.8. BUN 38. Creatinine 1.7. He is continued on DuoNeb inhalations, Symbicort, Singulair. Heparin for DVT prophylaxis. Surgical services are on the case. He is currently on antibiotics in the form of meropenem. The patient is seen today 02/19/2022 in follow-up. He did undergo a exploratory laparotomy with lysis of adhesions with Dr. Maribel laguna. He tolerated the procedure well. His back in the regular medical floor. He is maintaining good O2 saturations in the 90s on 2 L/m per nasal cannula. Afebrile. Hemodynamically stable. White count 14.5. Hemoglobin 9.8. Sodium 139. Potassium 4.3. Chloride 108. Bicarb 22. BUN 39. Creatinine 1.46. Glucose 69. Objective - Vital Signs Vital signs: Vital Signs Temp 97.6 F 02/19/22 14:04 Pulse 90 02/19/22 14:30 Resp 18 02/19/22 14:30 BP 121/56 02/19/22 14:30 Pulse Ox 96 02/19/22 14:30 FiO2 Intake & Output 02/18/22 02/19/22 02/19/22 18:59 06:59 18:59 Intake Total 1100 1000 50 Output Total 760 Balance 1100 240 50 Weight 75.296 kg Intake: IV 50 Intake, IV Titration 1100 1000 Amount Meropenem 1 gm In Sodium 200 100 Chloride 0.9% 100 ml @ 33 .333 mls/hr IVPB Q8HR [facility] Rx#:[id number] Sodium Chloride 0.9% 1, 900 900 000 ml @ 75 mls/hr IV . [id number] Rx#:[id number] Output: Gastric Drainage 260 Urine 500 Other: # Voids 400 - Exam GENERAL EXAM: Alert, 76-year-old male, on 2 L nasal cannula, comfortable in no apparent distress. HEAD: Normocephalic. EYES: Normal reaction of pupils, equal size. NOSE: Nasogastric tube secured in place. Clear with pink turbinates. THROAT: No erythema or exudates. NECK: No masses, no JVD. CHEST: No chest wall deformity. LUNGS: Equal air entry with crackles in the right lung base CVS: S1 and S2 normal with no audible murmur, regular rhythm. ABDOMEN: Surgical dressing dry and intact. Umbilical hernia reducible nontender. Ostomy bag on the side of abdomen SPINE: No scoliosis or deformity SKIN: No rashes CENTRAL NERVOUS SYSTEM: No focal deficits, tone is normal in all 4 extremities. EXTREMITIES: There is no peripheral edema. No clubbing, no cyanosis. Peripheral pulses are intact. - Labs CBC & Chem 7: 02/19/22 05:52 02/19/22 05:52 Labs: Abnormal Lab Results - Last 24 Hours (Table) 02/19/22 02/19/22 Range/Units 05:52 05:52 WBC 14.5 H (3.8-10.6) k/uL RBC 3.12 L (4.30-5.90) m/uL Hgb 9.8 L D (13.0-17.5) gm/dL Hct 30.1 L (39.0-53.0) % Neutrophils # 13.3 H (1.3-7.7) k/uL Lymphocytes # 0.6 L (1.0-4.8) k/uL Chloride 108 H (98-107) mmol/L BUN 39 H (9-20) mg/dL Creatinine 1.46 H (0.66-1.25) mg/dL Glucose 69 L (74-99) mg/dL Calcium 8.0 L (8.4-10.2) mg/dL Assessment and Plan Assessment: Small bowel obstruction with distal right lower quadrant transition point noted on computed tomography scan, Prior history of diverticulitis with perforation and bowel resection with colostomy placement. Status post exploratory laparotomy with lysis of adhesions. Postoperative day #0. Umbilical hernia reducible Gallbladder sludge noted on CT, no evidence of cholecystitis Recurrent pneumonia. The patient is having recurrent pneumonia/tracheobronchitis with pseudomonas and other gram-negative bacteria. Currently on IV meropenem. 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 coli, MRSA Right upper lobe pulmonary nodule avid on the previous PET scan and this was active on a PET scan and the patient was treated with SBRT Right renal mass being followed up on outpatient basis Factor 5 Leyden mutation Previous history of left lower extremity DVT Hypertension Chronic stage III kidney disease History of colonic perforation requiring colectomy and colostomy. Obstructive sleep apnea not using CPAP therapy Diverticulosis with previous history of diverticulitis Multiple hepatic cysts Plan: The patient was seen and evaluated Medications and labs reviewed The patient had undergone an exploratory laparotomy with lysis of adhesions today Tolerated the procedure well and currently on 2 L nasal cannula We will continue to follow I have personally seen and examined the patient, performed the documentation and the assessment and plan as written. Number of minutes spent on the visit: 10. This is a joint evaluation that was done along with CUSTOMER SERVICE OPERATOR. The patient was seen and evaluated personally. I reviewed and discussed the the above-mentioned plan with the patient and the CUSTOMER SERVICE OPERATOR. This evaluation was done in more than 20 minutes. I agree to the above-mentioned evaluation, information and planning.
[2022-02-19] MEDS: HYDROmorphone 1 MG/ML 1 ML SYRINGE IVP PRN ×2 (15:02→18:06)
--- NOTE | 2022-02-19 15:41 | P.OP ---
Date of Procedure: 02/19/22 Preoperative Diagnosis: Small bowel obstruction Postoperative Diagnosis: Small bowel obstruction secondary to internal hernia from adhesive band Incisional hernia Procedure(s) Performed: Extensive lysis of adhesions Small bowel resection Repair of incisional hernia Anesthesia: CAYDEN Surgeon: Que Munoz Estimated Blood Loss (ml): 5 Pathology: other (Small bowel) Condition: stable Disposition: PACU Description of Procedure: The patient's placed on the operative table in the supine position. He received general endotracheal tube anesthesia. His abdomen was prepped and draped in sterile fashion. The patient a colostomy in the left lower quadrant. A midline skin incision was made. Then using left cautery subcu tissue divided. The peritoneal cavity is opened. There was an incisional hernia noted. There was some ascites in the pleural cavity. This was aspirated. The small bowel was grossly dilated. Small bowel was then run and then in the level of the right lower quadrant there was adhesive band causing an internal hernia. This was approximately 6 inches from the the cecal valve. The feasibility lysed. There is evidence of some focal necrosis of the small bowel this area. The small bowel was then transected approximately distally around the stricture using the MARK stapler. And then using the MARK and TA stapler a [id number] functional end-to-end staple anastomosis created between the small bowel loops. A 3-0 GI silk sutures a crotch stitch. There were several other adhesions that were lysed. There were extensive adhesions that were lysed in the left side of the abdomen. Proximally 20 minutes of operative time used to lyse adhesions. There was a small bowel enterotomy made with the adhesive band was cut off of the small bowel. This was repaired using 3-0 GI silk suture. The abdomen was irrigated. There is no bleeding seen. At this point the fascia was closed with looped #1 PDS suture. The incisional hernia repair was performed during fascial closure. The skin was closed escobar. Patient top she will was sent to recovery room in stable condition.
--- NOTE | 2022-02-19 17:59 | P.PN ---
Progress Note - Text Progress Note Date: 02/19/22 - Chief Complaint Abdominal pain Hospital course: This is a 76-year-old patient who follows with Dr. Keshawn Suarez. Chronic stable medical conditions include DVT, GERD, hypertension, uses CPAP, home oxygen 2 L , factor 5 Leyden, bronchial silicone stent now removed, prior history of hemodialysis, lung cancer diagnosed and treated in [place]. Colostomy.April 12 2021, in [place] - bowel perforation -had 4 inches of large bowel removed. - colostomy. During that hospitalization he also pneumonia. Then in July again had a lung infection. - port placed / 2 weeks of antibiotics. October 2021 admitted to [facility] in treated with ceftazidime. Following discharge diagnosed with E. coli on November 20 and treated with antibiotics by Dr. Cortez. Patient discharged from the hospital on December 12 with drug-resistant E. coli with 2 weeks of IV Invanz. Subsequent pneumonia with multidrug resistance Pseudomonas aeruginosa, sensitive to imipenem. 01/30/2022 again admitted with pneumonia. This occasion sputum positive for Pseudomonas aeruginosa and Stenotrophomonas maltophilia. Discharge and IV meropenem and Levaquin. To be completed on February 17. Yesterday morning around 3:00 patient started having increasing abdominal pain. Pain progressed to get worse. No nausea vomiting. Became somewhat uncomfortable. Last bowel movement was 2 days ago. Patient's breathing is better. Some congestion. She does phlegm. No fever no chills. Finally presented to the ER. Computed tomography scan showed small bowel obstruction. NG tube placed. 02/18/2022: Seen by me this morning today. NG tube in place. No stool out of the ostomy bag. Abdomen still distended. We'll continue antibiotics for now. In 02/19/2022: NG tube remains in place. No stool output fluoroscopy back. Breathing stable. Will need surgical intervention. Later this afternoon patient did undergo surgery. Lysis of adhesions. Internal hernia. Some small bowel resection. Active Medications Albuterol Sulfate (Albuterol Nebulized 2.5 Mg/3 Ml) 2.5 mg INHALATION RT-TID PRN PRN Reason: Shortness Of Breath Albuterol/Ipratropium (Ipratropium-Albuterol 3 Ml Neb) 3 ml INHALATION RT-QID [facility] Last Admin: 02/19/22 16:28 Dose: 3 ml Allopurinol (Allopurinol 100 Mg Tab) 100 mg PO DAILY [facility] Last Admin: 02/19/22 09:27 Dose: 100 mg Alprazolam (Alprazolam 0.5 Mg Tab) 0.5 mg PO TID PRN PRN Reason: Anxiety Budesonide/Formoterol Fumarate (Symbicort 80-4.5 Mcg Inhaler) 2 puff INHALATION RT-BID [facility] Last Admin: 02/19/22 07:34 Dose: 2 puff Doxazosin Mesylate (Doxazosin 4 Mg Tab) 4 mg PO DAILY [facility] Last Admin: 02/19/22 09:27 Dose: 4 mg Enoxaparin Sodium (Enoxaparin 40 Mg/0.4 Ml Syringe) 40 mg SQ DAILY [facility] Guaifenesin (Guaifenesin 600 Mg Tablet.Er) 600 mg PO BID [facility] Last Admin: 02/19/22 09:27 Dose: 600 mg Lisinopril/HCTZ (Lisinopril-Hctz 10-12.5 Mg 1 Each Tab) 0.5 each PO DAILY [facility] Last Admin: 02/19/22 09:27 Dose: 0.5 each Heparin Sodium (Porcine) (Heparin Sodium,Porcine/Pf 5,000 Unit/0.5 Ml Syringe) 5,000 unit SQ Q12HR [facility] Stop: 02/19/22 23:00 Last Admin: 02/19/22 09:42 Dose: Not Given Hydromorphone HCl (Hydromorphone 0.5 Mg/0.5 Ml Syringe) 0.5 mg IVP Q3HR PRN PRN Reason: Moderate Pain (Scale 4 to 6) Last Admin: 02/19/22 09:27 Dose: 0.5 mg Hydromorphone HCl (Hydromorphone 1 Mg/Ml 1 Ml Syringe) 1 mg IVP Q3HR PRN PRN Reason: SEVERE Pain Last Admin: 02/19/22 15:02 Dose: 1 mg Sodium Chloride (Saline 0.9%) 1,000 mls @ 75 mls/hr IV .[id number] [facility] Last Admin: 02/19/22 12:47 Dose: 50 mls Meropenem 1 gm/ Sodium (Chloride) 100 mls @ 33.333 mls/hr IVPB Q8HR [facility]; Prot ocol Last Admin: 02/19/22 15:03 Dose: 33.333 mls/hr Lactobacillus Acidoph/Bulgaricus (Lactobacillus Acidoph & Bulgar 1 Each Packet) 1 each PO DAILY [facility] Last Admin: 02/19/22 09:42 Dose: Not Given Magnesium Oxide (Magnesium Oxide 400 Mg Tab) 400 mg PO HS [facility] Last Admin: 02/18/22 20:08 Dose: 400 mg Metoprolol Tartrate (Metoprolol Tartrate 25 Mg Tab) 25 mg PO BID [facility] Last Admin: 02/19/22 09:27 Dose: 25 mg Montelukast Sodium (Montelukast 10 Mg Tab) 10 mg PO DAILY [facility] Last Admin: 02/19/22 09:43 Dose: Not Given Naloxone HCl (Naloxone 0.4 Mg/Ml 1 Ml Vial) 0.2 mg IV Q2M PRN PRN Reason: Opioid Reversal Ondansetron HCl (Ondansetron 4 Mg/2 Ml Vial) 4 mg IVP Q6HR PRN PRN Reason: Nausea And Vomiting Pantoprazole Sodium (Pantoprazole 40 Mg Tablet) 40 mg PO DAILY [facility] Last Admin: 02/19/22 09:27 Dose: 40 mg Past medical history to include: Factor V Leyden mutation, COPD, DVT, GERD, hypertension, COPD, Pseudomonas lung infection, uses CPAP, 2 L home oxygen when necessary, diverticulitis, bronchial silicone stent now removed, hemodialysis now discontinued CK D stage III, right lung solid nodule with radiation treatment. Social history: Lives alone. Smoked 1-2 packs a day for 50 years stopped in 2012. Did drink significant alcohol stopped some time ago. Retired from [employer]. Family history: Colon cancer Physical examination: VITAL SIGNS: 98.7, 95, 20, 98/62, 94% on 3 L GENERAL: Laying in bed, anxious. EYES: Pupils equal. Conjunctiva normal. HEENT: External appearance of nose and ears normal, oral cavity grossly normal NG tube to suction. NECK: JVD not raised; masses not palpable. HEART: First and second heart sounds are normal; no edema. LUNGS: Respiratory rate increased; increased breath sound mild wheezing. ABDOMEN: Soft, distended, minimally tender, liver spleen not palpable, no masses palpable colostomy bag with no stool. PSYCH: Alert and oriented x3; mood and affect anxiousl. MUSCULOSKELETAL:No Clubbing/cyanosis;muscles-grossly intact. OA INVESTIGATIONS, reviewed in the clinical context: 02/19/2022: White count 14.5 hemoglobin 9.8 platelets 182 potassium 4.3 creatinine 1.46 02/18/2022: White count 15 hemoglobin 10 potassium 4.8 creatinine 1.7 WBC 11.6 hemoglobin 12.3 platelets 209 potassium 4.7 BUN 39 creatinine 1.55 Computed tomography scan abdomen and pelvis: Small bowel obstruction with distal right lower quadrant transition zone noted. Umbilical hernia may contain a short segment of small bowel. Assessment plan: - acute small bowel obstruction with distal right lower quadrant transition zone noted. Bowel surgery earlier in the year in [place].: Not improving NG tube to suction. 02/19/2022: Patient underwent extensive lysis of adhesions and small bowel resection and repair of incisional hernia by Dr. Munoz -Recent Acute right basal pneumonia in a patient with Recurrent pneumonia in a patient with underlying COPD. recent cultures have been positive sputum positive for stenitophomas maltophilia, MRSA, E. coli. And now on January 23 positive for pseudomonas aeruginosa. IV meropenem every 8. Levaquin. PICC line . Will DC Levaquin. -COPD in a previous smoker: Better DuoNeb 4 times a day. oral prednisone. Perforomist. Nebulized steroids. -Chronic hypoxic respiratory failure from COPD Home oxygen 2 L -Hyperuricemia Allopurinol 100 mg a day -Factor V Leyden mutation -Right upper lung nodule treated with the radiation Follow with pulmonary -Essential hypertension Lopressor 25 mg twice a day -BPH Cardura 4 mg a day -Anxiety not otherwise specified Xanax when necessary -Chronic kidney disease likely nephrosclerosis stage III Follow renal function -Acute kidney injury, prerenal from decreased oral intake. IV fluids Baseline creatinine 1.11 Continue IV meropenem . Levaquin discontinued. IV fluids. Postsurgical orders. Thank you Dr. Munoz
[2022-02-19] MEDS: ALPRAZolam 0.5 MG TAB PO PRN (21:34)
[2022-02-19] MEDS: MAGNESIUM OXIDE 400 MG TAB PO SCH (21:34)
[2022-02-20] MEDS: HYDROmorphone 1 MG/ML 1 ML SYRINGE IVP PRN ×8 (00:15→22:45)
[2022-02-20] MEDS: SODIUM CHLORIDE 0.9% 1,000 ML IV SCH ×2 (04:02→20:05)
[2022-02-20] MEDS: MEROPENEM 1 GM in SODIUM CHLORIDE 0.9% 100 ML IVPB SCH ×3 (08:31→23:18)
[2022-02-20] MEDS: DOXAZOSIN 4 MG TAB PO SCH (08:36)
[2022-02-20] MEDS: MONTELUKAST 10 MG TAB PO SCH (08:36)
[2022-02-20] MEDS: METOPROLOL TARTRATE 25 MG TAB PO SCH ×2 (08:36→19:46)
[2022-02-20] MEDS: PANTOPRAZOLE 40 MG TABLET PO SCH (08:36)
[2022-02-20] MEDS: guaiFENesin 600 MG TABLET.ER PO SCH ×2 (08:36→19:46)
[2022-02-20] MEDS: LISINOPRIL-HCTZ 10-12.5 MG 1 EACH TAB PO SCH (08:36)
[2022-02-20] MEDS: allopurinoL 100 MG TAB PO SCH (08:37)
[2022-02-20] MEDS: LACTOBACILLUS ACIDOPH & BULGAR 1 EACH PACKET PO SCH (08:37)
[2022-02-20] MEDS ORDERED: ENOXAPARIN 40 MG/0.4 ML SYRINGE SQ SCH (09:00)
[2022-02-20 09:01] LABS: African American GFR (CKD) 39 (>60 ml/min/1.73 sqM); Anion Gap 10 mmol/L; Blood Urea Nitrogen 56 mg/dL (9-20); Calcium 7.6 mg/dL (8.4-10.2); Carbon Dioxide 21 mmol/L (22-30); Chloride 111 mmol/L (98-107); Glucose 103 mg/dL (74-99); Non-African American GFR(CKD) 34 (>60 ml/min/1.73 sqM); Potassium 4.7 mmol/L (3.5-5.1); Sodium 142 mmol/L (137-145)
[2022-02-20] MEDS: IPRATROPIUM-ALBUTEROL 3 ML NEB INHALATION SCH ×4 (09:05→21:14)
[2022-02-20] MEDS: SYMBICORT 80-4.5 MCG INHALER INHALATION SCH ×2 (09:05→21:14)
[2022-02-20 09:17] LABS: Basophils % (A) 0 %; Eosinophils % (A) 0 %; HCT 30.8 % (39.0-53.0); HGB 9.7 gm/dL (13.0-17.5); Hypochromasia Slight; Lymphocytes # (A) 0.7 k/uL (1.0-4.8); Lymphocytes % (A) 7 %; MCH 30.7 pg (25.0-35.0); MCHC 31.5 g/dL (31.0-37.0); MCV 97.5 fL (80.0-100.0); Mean Platelet Volume 9.3; Monocytes # (A) 0.4 k/uL (0-1.0); Monocytes % (A) 4 %; Neutrophils # (A) 8.7 k/uL (1.3-7.7); Neutrophils % (A) 87 %; Platelet Count 177 k/uL (150-450); RBC 3.15 m/uL (4.30-5.90); RDW 14.8 % (11.5-15.5); WBC 9.9 k/uL (3.8-10.6)
--- NOTE | 2022-02-20 11:53 | P.PN ---
Subjective Progress Note Date: 02/20/22 This is a 76-year-old male who is very well-known to me, hospitalized on multiple occasions for pneumonia with gram-negative most recent infection was related to Pseudomonas and the patient was taken off the patient antibiotics with IV meropenem. The patient has history of COPD, lung mass that was treated with SBR T and history of tracheal bronchomalacia. He has had multiple pneumonias and multiple hospitalizations in the past for the same. During the most recent hospitalization of jan 2022, the patient was treated for a recurrent Pseudomonas pneumonia Note that the patient has had previous infections with Pseudomonas, stenotrophomonas, and MRSA. The patient came into the ED with complaints of diffuse abdominal pain but more in the right lower abdomen. Patient reports that his abdominal pain started Thursday morning. The pain came on suddenly. He'd been nauseated and having acid reflux. She reports that his ostomy output had decreased he was still making a small amount of stool through his ostomy. But has stopped having any flatus over the last couple a days. Patient does have a prior history of diverticulitis with perforation requiring bowel resection with colostomy placement in March 2021 in [place]. He also has a past surgical history of a right inguinal hernia repair. Patient had a computed tomography scan abdomen and pelvis showing a small bowel obstruction. NG tube is being placed in the ER. History of a pulmonary lung nodule requiring radiation treatment. He does have factor V Leiden mutation. The patient is seen today 02/18/2022 in follow-up on the regular medical floor. He is currently sitting up at the bedside. Awake and alert in no acute distr ess. Nasogastric tube remains in place. Still with very minimal output of the ostomy. White count 15.0. Hemoglobin 10.0. Sodium 139. Potassium 4.8. BUN 38. Creatinine 1.7. He is continued on DuoNeb inhalations, Symbicort, Singulair. Heparin for DVT prophylaxis. Surgical services are on the case. He is currently on antibiotics in the form of meropenem. The patient is seen today 02/19/2022 in follow-up. He did undergo a exploratory laparotomy with lysis of adhesions with Dr. Maribel laguna. He tolerated the procedure well. His back in the regular medical floor. He is maintaining good O2 saturations in the 90s on 2 L/m per nasal cannula. Afebrile. Hemodynamically stable. White count 14.5. Hemoglobin 9.8. Sodium 139. Potassium 4.3. Chloride 108. Bicarb 22. BUN 39. Creatinine 1.46. Glucose 69. The patient is seen today 02/20/2022 in follow-up on the regular medical floor. He is postoperative day #1. He did undergo extensive lysis of adhesions, small bowel resection and repair of incisional hernia. He is awake and alert. he is maintaining O2 saturations in the low 90s on 4 L/m per nasal cannula. There is a small amount of stool in his ostomy. White count 9.9. Hemoglobin 9.7. Sodium 142. Potassium 4.7. Bicarb 21. BUN 56. Creatinine 1.88. Glucose 103. He is working with the incentive spirometer. He is continued on DuoNeb inhalations, Symbicort, Mucinex, Singulair. He is on antibiotics in the form of meropenem. Objective - Vital Signs Vital signs: Vital Signs Temp 97.8 F 02/20/22 04:52 Pulse 92 02/20/22 09:23 Resp 18 02/20/22 04:52 BP 116/65 02/20/22 08:00 Pulse Ox 92 L 02/20/22 08:00 FiO2 Intake & Output 02/19/22 02/20/22 02/20/22 18:59 06:59 18:59 Intake Total 1150 118 Output Total 300 Balance 1150 -182 Weight 75.296 kg Intake: IV 50 Intake, IV Titration 1100 Amount Meropenem 1 gm In Sodium 200 Chloride 0.9% 100 ml @ 33 .333 mls/hr IVPB Q8HR [facility] Rx#:[id number] Sodium Chloride 0.9% 1, 900 000 ml @ 75 mls/hr IV . [id number] [facility] Rx#:[id number] Oral 118 Output: Urine 300 Other: Voiding Method Indwelling Catheter Indwelling Catheter - Exam GENERAL EXAM: Alert, pleasant 76-year-old male, on 4 L nasal cannula, comfortable in no apparent distress. HEAD: Normocephalic. EYES: Normal reaction of pupils, equal size. NOSE: Nasogastric tube secured in place. Clear with pink turbinates. THROAT: No erythema or exudates. NECK: No masses, no JVD. CHEST: No chest wall deformity. LUNGS: Equal air entry with crackles in the right lung base CVS: S1 and S2 normal with no audible murmur, regular rhythm. ABDOMEN: Surgical dressing dry and intact. Umbilical hernia reducible nontender. Ostomy bag on the side of abdomen SPINE: No scoliosis or deformity SKIN: No rashes CENTRAL NERVOUS SYSTEM: No focal deficits, tone is normal in all 4 extremities. EXTREMITIES: There is no peripheral edema. No clubbing, no cyanosis. Peripheral pulses are intact. - Labs CBC & Chem 7: 02/20/22 08:20 02/20/22 08:20 Labs: Abnormal Lab Results - Last 24 Hours (Table) 02/20/22 02/20/22 Range/Units 08:20 08:20 RBC 3.15 L (4.30-5.90) m/uL Hgb 9.7 L (13.0-17.5) gm/dL Hct 30.8 L (39.0-53.0) % Neutrophils # 8.7 H (1.3-7.7) k/uL Lymphocytes # 0.7 L (1.0-4.8) k/uL Chloride 111 H (98-107) mmol/L Carbon Dioxide 21 L (22-30) mmol/L BUN 56 H (9-20) mg/dL Creatinine 1.88 H (0.66-1.25) mg/dL Glucose 103 H (74-99) mg/dL Calcium 7.6 L (8.4-10.2) mg/dL Assessment and Plan Assessment: Small bowel obstruction with distal right lower quadrant transition point noted on computed tomography scan, Prior history of diverticulitis with perforation and bowel resection with colostomy placement. Status post exploratory laparotomy with lysis of adhesions, small bowel resection, repair of incisional hernia. Postoperative day #1. Umbilical hernia reduciblestatus post repair Gallbladder sludge noted on CT, no evidence of cholecystitis Recurrent pneumonia. The patient is having recurrent pneumonia/tracheobronchitis with pseudomonas and other gram-negative bacteria. Currently on IV meropenem. 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 coli, MRSA Right upper lobe pulmonary nodule avid on the previous PET scan and this was active on a PET scan and the patient was treated with SBRT Right renal mass being followed up on outpatient basis Factor 5 Leyden mutation Previous history of left lower extremity DVT Hypertension Chronic stage III kidney disease History of colonic perforation requiring colectomy and colostomy. Obstructive sleep apnea not using CPAP therapy Diverticulosis with previous history of diverticulitis Multiple hepatic cysts Plan: The patient was seen and evaluated Medications and labs reviewed Encourage increased use of the incentive spirometer and cough and deep breathing exercises Continue bronchodilators Remains on meropenem Increase his activity as tolerated We will continue to follow I have personally seen and examined the patient, performed the documentation and the assessment and plan as written. Number of minutes spent on the visit: 10. This is a joint evaluation that was done along with the nurse practitioner. I was present during the time of evaluation. I performed evaluation along with CONVEYOR LOADER and I reviewed the medical records and the treatment plan. I do agree on information mentioned above in the medical progress note. This information was done in more than 20 minutes.
--- NOTE | 2022-02-20 16:16 | P.PN ---
Subjective Progress Note Date: 02/20/22 CHIEF COMPLAINT: Small bowel obstruction HISTORY OF PRESENT ILLNESS: Patient is postop day #1 status post small bowel resection, extensive lysis of adhesions and repair of incisional hernia. Patient's pain is controlled. He has NG tube in place with bilious output. Has small amount of stool noted at ostomy. Afebrile Patient seen and examined by Dr. mackay PHYSICAL EXAM: VITAL SIGNS: Reviewed. GENERAL: Well-developed in no acute distress. HEENT: No sclera icterus. Extraocular movements grossly intact. Moist buccal mucosa. Head is atraumatic, normocephalic. ABDOMEN: Soft. Tender at incision site. Dressing clean dry and intact. Small amount of stool noted at stoma NEUROLOGIC: Alert and oriented. Cranial nerves II through XII grossly intact. ASSESSMENT: 1. Small bowel obstruction secondary to internal hernia from adhesive band status post extensive lysis of adhesions, small bowel resection and repair of incisional hernia 2. Gallbladder sludge noted on CT. Patient denies any right upper quadrant pain 3. Prior history of diverticulitis with perforation and bowel resection with colostomy placement 4. Pneumonia PLAN: -Keep patient nothing by mouth -Continue NG tube for decompression -Continue IV fluids -Continue pain management -Continue GI prophylaxis Protonix and DVT prophylaxis Lovenox Physician Nc Manager note has been reviewed by physician. Signing provider agrees with the documented findings, assessment, and plan of care. Objective - Vital Signs Vital signs: Vital Signs Temp 98.6 F 02/20/22 12:47 Pulse 96 02/20/22 13:15 Resp 18 02/20/22 12:47 BP 97/61 02/20/22 12:47 Pulse Ox 92 L 02/20/22 12:47 FiO2 Intake & Output 02/19/22 02/20/22 02/20/22 18:59 06:59 18:59 Intake Total 1150 118 Output Total 300 Balance 1150 -182 Weight 75.296 kg Intake: IV 50 Intake, IV Titration 1100 Amount Meropenem 1 gm In Sodium 200 Chloride 0.9% 100 ml @ 33 .333 mls/hr IVPB Q8HR [facility] Rx#:[id number] Sodium Chloride 0.9% 1, 900 000 ml @ 75 mls/hr IV . [id number] [facility] Rx#:[id number] Oral 118 Output: Urine 300 Other: Voiding Method Indwelling Catheter Indwelling Catheter - Labs CBC & Chem 7: 02/20/22 08:20 12 08:20 Labs: Abnormal Lab Results - Last 24 Hours (Table) 02/20/22 02/20/22 Range/Units 08:20 08:20 RBC 3.15 L (4.30-5.90) m/uL Hgb 9.7 L (13.0-17.5) gm/dL Hct 30.8 L (39.0-53.0) % Neutrophils # 8.7 H (1.3-7.7) k/uL Lymphocytes # 0.7 L (1.0-4.8) k/uL Chloride 111 H (98-107) mmol/L Carbon Dioxide 21 L (22-30) mmol/L BUN 56 H (9-20) mg/dL Creatinine 1.88 H (0.66-1.25) mg/dL Glucose 103 H (74-99) mg/dL Calcium 7.6 L (8.4-10.2) mg/dL
--- NOTE | 2022-02-20 17:29 | P.PN ---
Progress Note - Text Progress Note Date: 02/20/22 - Chief Complaint Abdominal pain Hospital course: This is a 76-year-old patient who follows with Dr. Keshawn Suarez. Chronic stable medical conditions include DVT, GERD, hypertension, uses CPAP, home oxygen 2 L , factor 5 Leyden, bronchial silicone stent now removed, prior history of hemodialysis, lung cancer diagnosed and treated in [place]. Colostomy.April 12 2021, in [place] - bowel perforation -had 4 inches of large bowel removed. - colostomy. During that hospitalization he also pneumonia. Then in July again had a lung infection. - port placed / 2 weeks of antibiotics. October 2021 admitted to [facility] in treated with ceftazidime. Following discharge diagnosed with E. coli on November 20 and treated with antibiotics by Dr. Cortez. Patient discharged from the hospital on December 12 with drug-resistant E. coli with 2 weeks of IV Invanz. Subsequent pneumonia with multidrug resistance Pseudomonas aeruginosa, sensitive to imipenem. 01/30/2022 again admitted with pneumonia. This occasion sputum positive for Pseudomonas aeruginosa and Stenotrophomonas maltophilia. Discharge and IV meropenem and Levaquin. To be completed on February 17. Yesterday morning around 3:00 patient started having increasing abdominal pain. Pain progressed to get worse. No nausea vomiting. Became somewhat uncomfortable. Last bowel movement was 2 days ago. Patient's breathing is better. Some congestion. She does phlegm. No fever no chills. Finally presented to the ER. Computed tomography scan showed small bowel obstruction. NG tube placed. 02/18/2022: Seen by me this morning today. NG tube in place. No stool out of the ostomy bag. Abdomen still distended. We'll continue antibiotics for now. In 02/19/2022: NG tube remains in place. No stool output colostomy bag.. Breathing stable. Will need surgical intervention. Later this afternoon patient did undergo surgery. Lysis of adhesions. Internal hernia. Some small bowel resection. 02/20/2022: NG tube to suction. Nothing by mouth. No output through the colostomy bag. Family is at bedside. Patient told to use a pillow if he coughs. IV meropenem. IV fluids. Active Medications Albuterol Sulfate (Albuterol Nebulized 2.5 Mg/3 Ml) 2.5 mg INHALATION RT-TID PRN PRN Reason: Shortness Of Breath Albuterol/Ipratropium (Ipratropium-Albuterol 3 Ml Neb) 3 ml INHALATION RT-QID [facility] Last Admin: 02/20/22 12:59 Dose: 3 ml Allopurinol (Allopurinol 100 Mg Tab) 100 mg PO DAILY [facility] Last Admin: 02/20/22 08:37 Dose: 100 mg Alprazolam (Alprazolam 0.5 Mg Tab) 0.5 mg PO TID PRN PRN Reason: Anxiety Last Admin: 02/19/22 21:34 Dose: 0.5 mg Budesonide/Formoterol Fumarate (Symbicort 80-4.5 Mcg Inhaler) 2 puff INHALATION RT-BID [facility] Last Admin: 02/20/22 09:05 Dose: 2 puff Doxazosin Mesylate (Doxazosin 4 Mg Tab) 4 mg PO DAILY [facility] Last Admin: 02/20/22 08:36 Dose: 4 mg Enoxaparin Sodium (Enoxaparin 30 Mg/0.3 Ml Syringe) 30 mg SQ DAILY [facility] Guaifenesin (Guaifenesin 600 Mg Tablet.Er) 600 mg PO BID [facility] Last Admin: 02/20/22 08:36 Dose: 600 mg Lisinopril/HCTZ (Lisinopril-Hctz 10-12.5 Mg 1 Each Tab) 0.5 each PO DAILY [facility] Last Admin: 02/20/22 08:36 Dose: 0.5 each Hydromorphone HCl (Hydromorphone 0.5 Mg/0.5 Ml Syringe) 0.5 mg IVP Q3HR PRN PRN Reason: Moderate Pain (Scale 4 to 6) Last Admin: 02/19/22 21:34 Dose: 0.5 mg Hydromorphone HCl (Hydromorphone 1 Mg/Ml 1 Ml Syringe) 1 mg IVP Q3HR PRN PRN Reason: SEVERE Pain Last Admin: 02/20/22 16:41 Dose: 1 mg Sodium Chloride (Saline 0.9%) 1,000 mls @ 75 mls/hr IV .[id number] [facility] Last Admin: 02/20/22 04:02 Dose: 75 mls/hr Meropenem 1 gm/ Sodium (Chloride) 100 mls @ 33.333 mls/hr IVPB Q8HR [facility]; Protocol Last Admin: 02/20/22 16:41 Dose: 33.333 mls/hr Lactobacillus Acidoph/Bulgaricus (Lactobacillus Acidoph & Bulgar 1 Each Packet) 1 each PO DAILY [facility] Last Admin: 02/20/22 08:37 Dose: 1 each Magnesium Oxide (Magnesium Oxide 400 Mg Tab) 400 mg PO HS [facility] Last Admin: 02/19/22 21:34 Dose: 400 mg Metoprolol Tartrate (Metoprolol Tartrate 25 Mg Tab) 25 mg PO BID [facility] Last Admin: 02/20/22 08:36 Dose: 25 mg Montelukast Sodium (Montelukast 10 Mg Tab) 10 mg PO DAILY [facility] Last Admin: 02/20/22 08:36 Dose: 10 mg Naloxone HCl (Naloxone 0.4 Mg/Ml 1 Ml Vial) 0.2 mg IV Q2M PRN PRN Reason: Opioid Reversal Ondansetron HCl (Ondansetron 4 Mg/2 Ml Vial) 4 mg IVP Q6HR PRN PRN Reason: Nausea And Vomiting Pantoprazole Sodium (Pantoprazole 40 Mg Tablet) 40 mg PO DAILY [facility] Last Admin: 02/20/22 08:36 Dose: 40 mg Past medical history to include: Factor V Leyden mutation, COPD, DVT, GERD, hypertension, COPD, Pseudomonas lung infection, uses CPAP, 2 L home oxygen when necessary, diverticulitis, bronchial silicone stent now removed, hemodialysis now discontinued CK D stage III, right lung solid nodule with radiation treatment. Social history: Lives alone. Smoked 1-2 packs a day for 50 years stopped in 2012. Did drink significant alcohol stopped some time ago. Retired from [employer] and [employer]. Family history: Colon cancer Physical examination: VITAL SIGNS: At 8.6, 90, 18, 97 was 61, 92% on 4 L GENERAL: Laying in bed, anxious. EYES: Pupils equal. Conjunctiva normal. HEENT: External appearance of nose and ears normal, oral cavity grossly normal NG tube to suction. NECK: JVD not raised; masses not palpable. HEART: First and second heart sounds are normal; no edema. LUNGS: Respiratory rate increased; decreased breath sounds occasional crackles. ABDOMEN: Soft, distended, minimally tender, liver spleen not palpable, no masses palpable colostomy bag with no stool. PSYCH: Alert and oriented x3; mood and affect anxiousl. MUSCULOSKELETAL:No Clubbing/cyanosis;muscles-grossly intact. OA INVESTIGATIONS, reviewed in the clinical context: 02/20/2022: White count 9.9 hemoglobin 9.7 potassium 4.7 BUN 56 creatinine 1.88 02/19/2022: White count 14.5 hemoglobin 9.8 platelets 182 potassium 4.3 creatinine 1.46 02/18/2022: White count 15 hemoglobin 10 potassium 4.8 creatinine 1.7 WBC 11.6 hemoglobin 12.3 platelets 209 potassium 4.7 BUN 39 creatinine 1.55 Computed tomography scan abdomen and pelvis: Small bowel obstruction with distal right lower quadrant transition zone noted. Umbilical hernia may contain a short segment of small bowel. Assessment plan: - acute small bowel obstruction with distal right lower quadrant transition zone noted. Bowel surgery earlier in the year in [place].: NG tube to suction. 02/19/2022:extensive lysis of adhesions and small bowel resection and repair of incisional hernia by Dr. Munoz -Recent Acute right basal pneumonia in a patient with Recurrent pneumonia in a patient with underlying COPD. recent cultures have been positive sputum positive for stenitophomas maltophilia, MRSA, E. coli. And now on January 23 positive for pseudomonas aeruginosa. IV meropenem every 8. -COPD in a previous smoker: Better DuoNeb 4 times a day. Symbicort -Chronic hypoxic respiratory failure from COPD Home oxygen 2 L -Hyperuricemia Allopurinol 100 mg a day -Factor V Leyden mutation -Right upper lung nodule treated with the radiation Follow with pulmonary -Essential hypertension Lopressor 25 mg twice a day -BPH Cardura 4 mg a day -Anxiety not otherwise specified Xanax when necessary -Chronic kidney disease likely nephrosclerosis stage III Follow renal function Continue IV meropenem . Nothing by mouth. IV fluids. This with patient and family at the bedside. Thank you Dr. Munoz
[2022-02-20] MEDS: MAGNESIUM OXIDE 400 MG TAB PO SCH (19:46)
[2022-02-21] MEDS: SYMBICORT 80-4.5 MCG INHALER INHALATION SCH ×3 (00:31→19:37)
[2022-02-21] MEDS: HYDROmorphone 1 MG/ML 1 ML SYRINGE IVP PRN ×7 (01:52→22:59)
[2022-02-21] MEDS: IPRATROPIUM-ALBUTEROL 3 ML NEB INHALATION SCH ×4 (09:09→19:37)
[2022-02-21] MEDS: MEROPENEM 1 GM in SODIUM CHLORIDE 0.9% 100 ML IVPB SCH ×3 (09:16→23:03)
[2022-02-21] MEDS: allopurinoL 100 MG TAB PO SCH (09:17)
[2022-02-21] MEDS: DOXAZOSIN 4 MG TAB PO SCH (09:17)
[2022-02-21] MEDS: guaiFENesin 600 MG TABLET.ER PO SCH ×2 (09:17→19:53)
[2022-02-21] MEDS: LACTOBACILLUS ACIDOPH & BULGAR 1 EACH PACKET PO SCH (09:17)
[2022-02-21] MEDS: ENOXAPARIN 30 MG/0.3 ML SYRINGE SQ SCH (09:17)
[2022-02-21] MEDS: LISINOPRIL-HCTZ 10-12.5 MG 1 EACH TAB PO SCH (09:18)
[2022-02-21] MEDS: MONTELUKAST 10 MG TAB PO SCH (09:18)
[2022-02-21] MEDS: METOPROLOL TARTRATE 25 MG TAB PO SCH ×2 (09:18→19:53)
[2022-02-21] MEDS: PANTOPRAZOLE 40 MG TABLET PO SCH (09:18)
[2022-02-21 11:13] VITALS: BMI 27.6
--- NOTE | 2022-02-21 14:19 | P.PN ---
Subjective Progress Note Date: 02/21/22 This is a 76-year-old male who is very well-known to me, hospitalized on multiple occasions for pneumonia with gram-negative most recent infection was related to Pseudomonas and the patient was taken off the patient antibiotics with IV meropenem. The patient has history of COPD, lung mass that was treated with SBR T and history of tracheal bronchomalacia. He has had multiple pneumonias and multiple hospitalizations in the past for the same. During the most recent hospitalization of jan 2022, the patient was treated for a recurrent Pseudomonas pneumonia Note that the patient has had previous infections with Pseudomonas, stenotrophomonas, and MRSA. The patient came into the ED with complaints of diffuse abdominal pain but more in the right lower abdomen. Patient reports that his abdominal pain started Thursday morning. The pain came on suddenly. He'd been nauseated and having acid reflux. She reports that his ostomy output had decreased he was still making a small amount of stool through his ostomy. But has stopped having any flatus over the last couple a days. Patient does have a prior history of diverticulitis with perforation requiring bowel resection with colostomy placement in March 2021 in [place]. He also has a past surgical history of a right inguinal hernia repair. Patient had a computed tomography scan abdomen and pelvis showing a small bowel obstruction. NG tube is being placed in the ER. History of a pulmonary lung nodule requiring radiation treatment. He does have factor V Leiden mutation. The patient is seen today 02/18/2022 in follow-up on the regular medical floor. He is currently sitting up at the bedside. Awake and alert in no acute distr ess. Nasogastric tube remains in place. Still with very minimal output of the ostomy. White count 15.0. Hemoglobin 10.0. Sodium 139. Potassium 4.8. BUN 38. Creatinine 1.7. He is continued on DuoNeb inhalations, Symbicort, Singulair. Heparin for DVT prophylaxis. Surgical services are on the case. He is currently on antibiotics in the form of meropenem. The patient is seen today 02/19/2022 in follow-up. He did undergo a exploratory laparotomy with lysis of adhesions with Dr. Maribel laguna. He tolerated the procedure well. His back in the regular medical floor. He is maintaining good O2 saturations in the 90s on 2 L/m per nasal cannula. Afebrile. Hemodynamically stable. White count 14.5. Hemoglobin 9.8. Sodium 139. Potassium 4.3. Chloride 108. Bicarb 22. BUN 39. Creatinine 1.46. Glucose 69. The patient is seen today 02/20/2022 in follow-up on the regular medical floor. He is postoperative day #1. He did undergo extensive lysis of adhesions, small bowel resection and repair of incisional hernia. He is awake and alert. he is maintaining O2 saturations in the low 90s on 4 L/m per nasal cannula. There is a small amount of stool in his ostomy. White count 9.9. Hemoglobin 9.7. Sodium 142. Potassium 4.7. Bicarb 21. BUN 56. Creatinine 1.88. Glucose 103. He is working with the incentive spirometer. He is continued on DuoNeb inhalations, Symbicort, Mucinex, Singulair. He is on antibiotics in the form of meropenem. 02/21/2022, Anival is doing well. He remains nothing by mouth. NG tube is in place and there are plans to remove the NG tube today. The colostomy site has without some minimal amount of output. Surgical once is striking and intact. Roland espana has a congested cough. he is bringing minimal amount of sputum. He remains on IV meropenem regarding recurrent pseudomonal pneumonias. Note that the patient underwent an extensive surgery which involved last of adhesions, small bowel resection and repair of an incisional hernia. He had complete bowel obstruction. He remains on Lovenox portably prophylaxis. Remains on bronchodilators. Incentive spirometer and flutter valve at the bedside. Labs from today are still pending. Creatinine from yesterday was 1.88 with a BUN of 56 and a sodium level of 142. Normocytic on is down to 9.9. He is awake and alert and sitting up on a chair is postop day #2. Objective - Vital Signs Vital signs: Vital Signs Temp 97.4 F L 02/21/22 12:00 Pulse 102 H 02/21/22 12:51 Resp 18 02/21/22 12:00 BP 127/61 02/21/22 12:00 Pulse Ox 95 02/21/22 12:00 FiO2 36 02/21/22 00:31 Intake & Output 02/20/22 02/21/22 02/21/22 18:59 06:59 18:59 Intake Total 200 1000 Output Total 1550 300 Balance 200 -550 -300 Weight 75.296 kg Intake: Intake, IV Titration 200 1000 Amount Meropenem 1 gm In Sodium 200 100 Chloride 0.9% 100 ml @ 33 .333 mls/hr IVPB Q8HR [facility] Rx#:[id number] Sodium Chloride 0.9% 1, 900 000 ml @ 75 mls/hr IV . [id number] [facility] Rx#:[id number] Output: Gastric Drainage 1150 Urine 400 300 Uretheral (Madsen) 300 Other: Voiding Method Indwelling Catheter Indwelling Catheter Indwelling Catheter - Exam GENERAL EXAM: Alert, pleasant 76-year-old male, on 4 L nasal cannula, comfortable in no apparent distress. NG tube still in place HEAD: Normocephalic. EYES: Normal reaction of pupils, equal size. NOSE: Nasogastric tube secured in place. Clear with pink turbinates. THROAT: No erythema or exudates. NECK: No masses, no JVD. CHEST: No chest wall deformity. LUNGS: Equal air entry with crackles in the right lung base CVS: S1 and S2 normal with no audible murmur, regular rhythm. ABDOMEN: Surgical dressing dry and intact. Umbilical hernia reducible nontender. Ostomy bag on the side of abdomen, bowel sounds are hypoactive SPINE: No scoliosis or deformity SKIN: No rashes CENTRAL NERVOUS SYSTEM: No focal deficits, tone is normal in all 4 extremities. EXTREMITIES: There is no peripheral edema. No clubbing, no cyanosis. Peripheral pulses are intact. - Labs CBC & Chem 7: 02/20/22 08:20 02/20/ 08:20 Assessment and Plan Assessment: Small bowel obstruction with distal right lower quadrant transition point noted on computed tomography scan, Prior history of diverticulitis with perforation and bowel resection with colostomy placement. Status post exploratory laparo joel with lysis of adhesions, small bowel resection, repair of incisional hernia. Postoperative day # 2, remains nothing by mouth and NG tube is still in place. There may be some minimal amount of activity in the ileostomy bag. Surgical one-sided dry clean and intact. Umbilical hernia reduciblestatus post repair Gallbladder sludge noted on CT, no evidence of cholecystitis Recurrent pneumonia. The patient is having recurrent pneumonia/tracheobronchitis with pseudomonas and other gram-negative bacteria. Currently on IV meropenem. 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 coli, MRSA Right upper lobe pulmonary nodule avid on the previous PET scan and this was active on a PET scan and the patient was treated with SBRT Right renal mass being followed up on outpatient basis Factor 5 Leyden mutation Previous history of left lower extremity DVT Hypertension Chronic stage III kidney disease History of colonic perforation requiring colectomy and colostomy. Obstructive sleep apnea not using CPAP therapy Diverticulosis with previous history of diverticulitis Multiple hepatic cysts Plan: Monitor the GI and the ball progression. Possible NG tube removal today Incentive spirometer Flutter valve Mobility 4 L of oxygen by nasal cannula Remains on meropenem Increase his activity as tolerated We will continue to follow repeat labs in the morning including CBC and complete metabolic profile
[2022-02-21] MEDS: SODIUM CHLORIDE 0.9% 1,000 ML IV SCH ×2 (14:40→23:00)
--- NOTE | 2022-02-21 14:43 | P.PN ---
Subjective Progress Note Date: 02/21/22 CHIEF COMPLAINT: Small bowel obstruction HISTORY OF PRESENT ILLNESS: Patient is postop day #2 status post small bowel resection, extensive lysis of adhesions and repair of incisional hernia. Patient's pain is controlled. He has NG tube in place with minimal output. No further output from ostomy. Afebrile. WBC has normalized from 14.5-9.9 Hgb 9.7 platelets 177; 42 potassium 4.7 creatinine 1.88 Patient seen and examined by Dr. mackay PHYSICAL EXAM: VITAL SIGNS: Reviewed. GENERAL: Well-developed in no acute distress. HEENT: No sclera icterus. Extraocular movements grossly intact. Moist buccal mucosa. Head is atraumatic, normocephalic. ABDOMEN: Soft. Incision site clean dry and intact. Small old stool in colostomy bag NEUROLOGIC: Alert and oriented. Cranial nerves II through XII grossly intact. ASSESSMENT: 1. Small bowel obstruction secondary to internal hernia from adhesive band status post extensive lysis of adhesions, small bowel resection and repair of incisional hernia 2. Gallbladder sludge noted on CT. Patient denies any right upper quadrant pain 3. Prior history of diverticulitis with perforation and bowel resection with colostomy placement 4. Pneumonia PLAN: -Discontinue NG tube -Keep patient nothing by mouth except for ice chips until bowel function incre ases -Continue IV fluids -Continue pain management -Encouraged patient to increase activity level -Encouraged patient she is incentive spirometer -Continue GI prophylaxis Protonix and DVT prophylaxis Lovenox [employer] note has been reviewed by physician. Signing provider agrees with the documented findings, assessment, and plan of care. Objective - Vital Signs Vital signs: Vital Signs Temp 97.4 F L 02/21/22 12:00 Pulse 102 H 02/21/22 12:51 Resp 18 02/21/22 12:00 BP 127/61 02/21/22 12:00 Pulse Ox 95 02/21/22 12:00 FiO2 36 02/21/22 00:31 Intake & Output 02/20/22 02/21/22 02/21/22 18:59 06:59 18:59 Intake Total 200 1000 Output Total 1550 300 Balance 200 -550 -300 Weight 75.296 kg Intake: Intake, IV Titration 200 1000 Amount Meropenem 1 gm In Sodium 200 100 Chloride 0.9% 100 ml @ 33 .333 mls/hr IVPB Q8HR [facility] Rx#:[id number] Sodium Chloride 0.9% 1, 900 000 ml @ 75 mls/hr IV . [id number] [id number] Rx#:[id number] Output: Gastric Drainage 1150 Urine 400 300 Uretheral (Madsen) 300 Other: Voiding Method Indwelling Catheter Indwelling Catheter Indwelling Catheter - Labs CBC & Chem 7: 02/20/22 08:20 02/20/22 08:20
--- NOTE | 2022-02-21 15:36 | P.PN ---
Progress Note - Text Progress Note Date: 02/21/22 - Chief Complaint Abdominal pain Hospital course: This is a 76-year-old patient who follows with Dr. Keshawn Suarez. Chronic stable medical conditions include DVT, GERD, hypertension, uses CPAP, home oxygen 2 L , factor 5 Leyden, bronchial silicone stent now removed, prior history of hemodialysis, lung cancer diagnosed and treated in [place]. Colostomy.April 12 2021, in [place] - bowel perforation -had 4 inches of large bowel removed. - colostomy. During that hospitalization he also pneumonia. Then in July again had a lung infection. - port placed / 2 weeks of antibiotics. October 2021 admitted to [facility] in treated with ceftazidime. Following discharge diagnosed with E. coli on November 20 and treated with antibiotics by Dr. Cortez. Patient discharged from the hospital on December 12 with drug-resistant E. coli with 2 weeks of IV Invanz. Subsequent pneumonia with multidrug resistance Pseudomonas aeruginosa, sensitive to imipenem. 01/30/2022 again admitted with pneumonia. This occasion sputum positive for Pseudomonas aeruginosa and Stenotrophomonas maltophilia. Discharge and IV meropenem and Levaquin. To be completed on February 17. Yesterday morning around 3:00 patient started having increasing abdominal pain. Pain progressed to get worse. No nausea vomiting. Became somewhat uncomfortable. Last bowel movement was 2 days ago. Patient's breathing is better. Some congestion. She does phlegm. No fever no chills. Finally presented to the ER. Computed tomography scan showed small bowel obstruction. NG tube placed. 02/18/2022: Seen by me this morning today. NG tube in place. No stool out of the ostomy bag. Abdomen still distended. We'll continue antibiotics for now. In 02/19/2022: NG tube remains in place. No stool output colostomy bag.. Breathing stable. Will need surgical intervention. Later this afternoon patient did undergo surgery. Lysis of adhesions. Internal hernia. Some small bowel resection. 02/20/2022: NG tube to suction. Nothing by mouth. No output through the colostomy bag. Family is at bedside. Patient told to use a pillow if he coughs. IV meropenem. IV fluids. 02/21/2022: NG tube to suction. Minimal output. No output from ostomy. Some cough. Getting IV cefepime. Up in a chair. Active Medications Albuterol Sulfate (Albuterol Nebulized 2.5 Mg/3 Ml) 2.5 mg INHALATION RT-TID PRN PRN Reason: Shortness Of Breath Last Admin: 02/21/22 00:31 Dose: 2.5 mg Albuterol/Ipratropium (Ipratropium-Albuterol 3 Ml Neb) 3 ml INHALATION RT-QID [facility] Last Admin: 02/21/22 12:40 Dose: 3 ml Allopurinol (Allopurinol 100 Mg Tab) 100 mg PO DAILY [facility] Last Admin: 02/21/22 09:17 Dose: 100 mg Alprazolam (Alprazolam 0.5 Mg Tab) 0.5 mg PO TID PRN PRN Reason: Anxiety Last Admin: 02/19/22 21:34 Dose: 0.5 mg Budesonide/Formoterol Fumarate (Symbicort 80-4.5 Mcg Inhaler) 2 puff INHALATION RT-BID [facility] Last Admin: 02/21/22 09:09 Dose: 2 puff Doxazosin Mesylate (Doxazosin 4 Mg Tab) 4 mg PO DAILY [facility] Last Admin: 02/21/22 09:17 Dose: 4 mg Enoxaparin Sodium (Enoxaparin 30 Mg/0.3 Ml Syringe) 30 mg SQ DAILY [facility] Last Admin: 02/21/22 09:17 Dose: 30 mg Guaifenesin (Guaifenesin 600 Mg Tablet.Er) 600 mg PO BID [facility] Last Admin: 02/21/22 09:17 Dose: 600 mg Lisinopril/HCTZ (Lisinopril-Hctz 10-12.5 Mg 1 Each Tab) 0.5 each PO DAILY [facility] Last Admin: 02/21/22 09:18 Dose: 0.5 each Hydromorphone HCl (Hydromorphone 0.5 Mg/0.5 Ml Syringe) 0.5 mg IVP Q3HR PRN PRN Reason: Moderate Pain (Scale 4 to 6) Last Admin: 02/19/22 21:34 Dose: 0.5 mg Hydromorphone HCl (Hydromorphone 1 Mg/Ml 1 Ml Syringe) 1 mg IVP Q3HR PRN PRN Reason: SEVERE Pain Last Admin: 02/21/22 12:37 Dose: 1 mg Sodium Chloride (Saline 0.9%) 1,000 mls @ 75 mls/hr IV .[id number] [facility] Last Admin: 02/21/22 14:40 Dose: 75 mls/hr Meropenem 1 gm/ Sodium (Chloride) 100 mls @ 33.333 mls/hr IVPB Q8HR [facility]; Protocol Last Admin: 02/21/22 09:16 Dose: 33.333 mls/hr Lactobacillus Acidoph/Bulgaricus (Lactobacillus Acidoph & Bulgar 1 Each Packet) 1 each PO DAILY [facility] Last Admin: 02/21/22 09:17 Dose: Not Given Magnesium Oxide (Magnesium Oxide 400 Mg Tab) 400 mg PO HS [facility] Last Admin: 02/20/22 19:46 Dose: 400 mg Metoprolol Tartrate (Metoprolol Tartrate 25 Mg Tab) 25 mg PO BID [facility] Last Admin: 02/21/22 09:18 Dose: 25 mg Montelukast Sodium (Montelukast 10 Mg Tab) 10 mg PO DAILY [facility] Last Admin: 02/21/22 09:18 Dose: Not Given Naloxone HCl (Naloxone 0.4 Mg/Ml 1 Ml Vial) 0.2 mg IV Q2M PRN PRN Reason: Opioid Reversal Ondansetron HCl (Ondansetron 4 Mg/2 Ml Vial) 4 mg IVP Q6HR PRN PRN Reason: Nausea And Vomiting Pantoprazole Sodium (Pantoprazole 40 Mg Tablet) 40 mg PO DAILY [facility] Last Admin: 02/21/22 09:18 Dose: 40 mg Past medical history to include: Factor V Leyden mutation, COPD, DVT, GERD, hypertension, COPD, Pseudomonas lung infection, uses CPAP, 2 L home oxygen when necessary, diverticulitis, bronchial silicone stent now removed, hemodialysis now discontinued CK D stage III, right lung solid nodule with radiation treatment. Social history: Lives alone. Smoked 1-2 packs a day for 50 years stopped in 2012. Did drink significant alcohol stopped some time ago. Retired from [employer]. Family history: Colon cancer Physical examination: VITAL SIGNS: 97.4, 98, 18, 127/61, 95% room air GENERAL: Up in a chair, slightly anxious EYES: Pupils equal. Conjunctiva normal. HEENT: External appearance of nose and ears normal, oral cavity grossly normal NG tube to suction. NECK: JVD not raised; masses not palpable. HEART: First and second heart sounds are normal; no edema. LUNGS: Respiratory rate increased; decreased breath sounds occasional crackles. ABDOMEN: Soft, distended, minimally tender, liver spleen not palpable, no masses palpable : colostomy bag with no stool. PSYCH: Alert and oriented x3; mood and affect anxiousl. MUSCULOSKELETAL:No Clubbing/cyanosis;muscles-grossly intact. OA INVESTIGATIONS, reviewed in the clinical context: 02/20/2022: White count 9.9 hemoglobin 9.7 potassium 4.7 BUN 56 creatinine 1.88 02/19/2022: White count 14.5 hemoglobin 9.8 platelets 182 potassium 4.3 creatinine 1.46 02/18/2022: White count 15 hemoglobin 10 potassium 4.8 creatinine 1.7 WBC 11.6 hemoglobin 12.3 platelets 209 potassium 4.7 BUN 39 creatinine 1.55 Computed tomography scan abdomen and pelvis: Small bowel obstruction with distal right lower quadrant transition zone noted. Umbilical hernia may contain a short segment of small bowel. Assessment plan: - acute small bowel obstruction with distal right lower quadrant transition zone noted. Bowel surgery earlier in the year in [place].: NG tube to suction. 02/19/2022:extensive lysis of adhesions and small bowel resection and repair of incisional hernia by Dr. Munoz. No output from colostomy bag. -Recent Acute right basal pneumonia in a patient with Recurrent pneumonia in a patient with underlying COPD. recent cultures have been positive sputum positive for stenitophomas maltophilia, MRSA, E. coli. And now on January 23 positive for pseudomonas aeruginosa. IV meropenem every 8. -COPD in a previous smoker: Better DuoNeb 4 times a day. Symbicort -Chronic hypoxic respiratory failure from COPD Home oxygen 2 L -Hyperuricemia Allopurinol 100 mg a day -Factor V Leyden mutation -Right upper lung nodule treated with the radiation Follow with pulmonary -Essential hypertension Lopressor 25 mg twice a day -BPH Cardura 4 mg a day -Anxiety not otherwise specified Xanax when necessary -Chronic kidney disease likely nephrosclerosis stage III Follow renal function Continue IV meropenem . Nothing by mouth. IV fluids. Up in a chair. Discussed with patient. Thank you Dr. Munoz
[2022-02-21] MEDS: MAGNESIUM OXIDE 400 MG TAB PO SCH (19:53)
[2022-02-22] MEDS: HYDROmorphone 1 MG/ML 1 ML SYRINGE IVP PRN ×5 (03:29→23:28)
[2022-02-22] MEDS: IPRATROPIUM-ALBUTEROL 3 ML NEB INHALATION SCH ×4 (07:40→19:17)
[2022-02-22] MEDS: SYMBICORT 80-4.5 MCG INHALER INHALATION SCH ×2 (07:40→19:17)
[2022-02-22] MEDS: MEROPENEM 1 GM in SODIUM CHLORIDE 0.9% 100 ML IVPB SCH ×3 (08:19→23:29)
[2022-02-22] MEDS: LISINOPRIL-HCTZ 10-12.5 MG 1 EACH TAB PO SCH (08:20)
[2022-02-22] MEDS: guaiFENesin 600 MG TABLET.ER PO SCH ×2 (08:20→21:26)
[2022-02-22] MEDS: PANTOPRAZOLE 40 MG TABLET PO SCH (08:20)
[2022-02-22] MEDS: METOPROLOL TARTRATE 25 MG TAB PO SCH ×2 (08:20→21:26)
[2022-02-22] MEDS: allopurinoL 100 MG TAB PO SCH (08:20)
[2022-02-22] MEDS: DOXAZOSIN 4 MG TAB PO SCH (08:20)
[2022-02-22] MEDS: MONTELUKAST 10 MG TAB PO SCH (08:21)
[2022-02-22] MEDS: ENOXAPARIN 30 MG/0.3 ML SYRINGE SQ SCH (08:21)
[2022-02-22] MEDS: LACTOBACILLUS ACIDOPH & BULGAR 1 EACH PACKET PO SCH (08:21)
--- NOTE | 2022-02-22 11:12 | P.PN ---
Subjective Progress Note Date: 02/22/22 Principal diagnosis: Bowel obstruction Patient doing fairly well. Denies nausea or vomiting. No bowel function. Pain is gradually improving he says. No labs from today. Mild tachycardia. Objective - Vital Signs Vital signs: Vital Signs Temp 98.5 F 02/22/22 03:45 Pulse 114 H 02/22/22 08:00 Resp 20 02/22/22 03:45 BP 107/63 02/22/22 08:00 Pulse Ox 96 02/22/22 08:00 FiO2 36 02/21/22 00:31 Intake & Output 02/21/22 02/22/22 02/22/22 18:59 06:59 18:59 Intake Total 775 900 Output Total 500 700 Balance 275 200 Weight 75.296 kg Intake: Intake, IV Titration 775 900 Amount Meropenem 1 gm In Sodium 100 Chloride 0.9% 100 ml @ 33 .333 mls/hr IVPB Q8HR [facility] Rx#:[id number] Sodium Chloride 0.9% 1, 675 900 000 ml @ 75 mls/hr IV . [id number] [facility] Rx#:[id number] Output: Urine 500 700 Uretheral (Madsen) 300 Other: Voiding Method Indwelling Catheter Urinal Urinal - Exam Abdomen: Soft, mild distention, mild tenderness, dressing clean and dry, ostomy with minimal output - Labs CBC & Chem 7: 02/20/22 08:20 02/20/22 08:20 Assessment and Plan (1) SBO (small bowel obstruction) Narrative/Plan: Patient doing slightly better today. Keep nothing by mouth until bowel function improved. Crease activity. Repeat labs tomorrow. Current Visit: Yes Status: Acute Code(s): K56.609 - UNSP INTESTNL OBST, UNSP TO PARTIAL VERSUS COMPLETE OBST SNOMED Code(s): 955614181
[2022-02-22 12:53] LABS: Basophils % (A) 0 %; Eosinophils # (A) 0.1 k/uL (0-0.7); Eosinophils % (A) 1 %; HCT 31.3 % (39.0-53.0); HGB 9.4 gm/dL (13.0-17.5); Hypochromasia Marked; Lymphocytes # (A) 0.3 k/uL (1.0-4.8); Lymphocytes % (A) 3 %; MCH 29.9 pg (25.0-35.0); MCHC 30.1 g/dL (31.0-37.0); MCV 99.2 fL (80.0-100.0); Monocytes # (A) 0.3 k/uL (0-1.0); Monocytes % (A) 3 %; Neutrophils # (A) 7.9 k/uL (1.3-7.7); Neutrophils % (A) 90 %; Platelet Count 206 k/uL (150-450); RBC 3.15 m/uL (4.30-5.90); RDW 14.5 % (11.5-15.5); WBC 8.8 k/uL (3.8-10.6)
[2022-02-22 13:09] LABS: African American GFR (CKD) 48 (>60 ml/min/1.73 sqM); Anion Gap 9 mmol/L; Blood Urea Nitrogen 66 mg/dL (9-20); Calcium 8.1 mg/dL (8.4-10.2); Carbon Dioxide 20 mmol/L (22-30); Chloride 112 mmol/L (98-107); Glucose 97 mg/dL (74-99); Non-African American GFR(CKD) 42 (>60 ml/min/1.73 sqM); Potassium 4.5 mmol/L (3.5-5.1); Sodium 141 mmol/L (137-145)
[2022-02-22] MEDS: SODIUM CHLORIDE 0.9% 1,000 ML IV SCH ×2 (14:24→23:30)
--- NOTE | 2022-02-22 15:06 | P.PN ---
Subjective Progress Note Date: 02/22/22 This is a 76 year old male who initially has been followed by Dr. Cervantes, picking up coverage today. He is monitored on medical floor, today he is postoperative day #3 for abdominal surgery secondary to bowel obstruction. Bowel sounds are noted on examination, there is small brown soft stool in ostomy bag. Stoma site in tact. midline dressing intact. He does report 10/10 abdominal pain has been receiving IV dialudid for this. Would benefit from adding oral pain medication. Reports some improvement with pain medication but not much. He is achieving 1500 on incentive spirometer. He continues on IV meropenem for history of recurrent pseudomonas pneumonia. White count today is 8.8, hgb 9.4, sodium 141, potassium 4.5, BUN 66, creatinine 1.57, glucose 97. He is currently NPO with ice chips. Being hydrated with normal saline at 75 mls per hour. He does report some left shoulder discomfort, has full range of motion no pain with range of motion exercises he had been ambulating in room with walker when happened. Will monitor. Review of Systems Constitutional: Denied any fatigue denied any fever. Cardio vascular: denied any chest pain, palpitations Gastrointestinal: denied any nausea, vomiting, diarrhea Pulmonary: Denied any shortness of breath cough Neurologic denied any new focal deficits All inpatient medications were reviewed and appropriate changes in these medications as dictated in the interval history and assessment and plan. PHYSICAL EXAMINATION: GENERAL: The patient is alert and oriented x3, not in any acute distress. Well developed, well nourished. HEENT: Pupils are round and equally reacting to light. EOMI. No scleral icterus. No conjunctival pallor. Normocephalic, atraumatic. No pharyngeal erythema. No thyromegaly. CARDIOVASCULAR: S1 and S2 present. No murmurs, rubs, or gallops. PULMONARY: Chest is clear to auscultation, no wheezing or crackles. ABDOMEN: Soft, nontender, nondistended, normoactive bowel sounds. No palpable organomegaly. MUSCULOSKELETAL: No joint swelling or deformity. EXTREMITIES: No cyanosis, clubbing, or pedal edema. NEUROLOGICAL: Gross neurological examination did not reveal any focal deficits. SKIN: No rashes. Assessment and Plan - Acute small bowel obstruction with distal right lower quadrant transition zone noted. Bowel surgery earlier in the year in [place].: 02/19/2022:extensive lysis of adhesions and small bowel resection and repair of incisional hernia by Dr. Munoz. NG tube has been discontinued he has minimal brown stool from colostomy. NPO with ice chips.Receiving IV hydration. Increased bowel sounds. -Recent Acute right basal pneumonia in a patient with Recurrent pneumonia in a patient with underlying COPD. recent cultures have been positive sputum positive for stenitophomas maltophilia, MRSA, E. coli. And now on January 23 positive for pseudomonas aeruginosa. IV meropenem every 8. Pulmonary following. -COPD in a previous smoker: Better DuoNeb 4 times a day. Symbicort -Chronic hypoxic respiratory failure from COPD Home oxygen 2 L currently with acute on chronic hypoxic respiratory failure on 4L nasal cannula -Hyperuricemia Allopurinol 100 mg a day -Factor V Leyden mutation -Right upper lung nodule treated with the radiation Follow with pulmonary -Essential hypertension Lopressor 25 mg twice a day also on lisonorpil/hctz, blood pressure is normotensive currently -BPH Cardura 4 mg a day -Anxiety not otherwise specified Xanax when necessary -Chronic kidney disease likely nephrosclerosis stage III Follow renal function Plan Continue IV meropenem, inhalers, oxygen support. Continue NPO diet with ice chips, Increase activity as tolerated. Continue with supportive care. Diet recommendations from surgery. Pulmonary following. The impression and plan of care has been dictated by Cathy Terry, Nurse Practitioner as directed. Dr. Marisol MD I have performed a history and physical examination and medical decision making of this patient, discussed the same with the dictator, and agree with the dictators assessment and plan as written, documented as a scribe. Based on total visit time, I have performed more than 50% of this visit. Objective - Vital Signs Vital signs: Vital Signs Temp 97.5 F L 02/22/22 11:04 Pulse 90 02/22/22 11:56 Resp 20 02/22/22 11:04 BP 114/65 02/22/22 11:04 Pulse Ox 95 02/22/22 11:04 FiO2 36 02/21/22 00:31 Intake & Output 02/21/22 02/22/22 02/22/22 18:59 06:59 18:59 Intake Total 775 900 Output Total 500 700 Balance 275 200 Weight 75.296 kg Intake: Intake, IV Titration 775 900 Amount Meropenem 1 gm In Sodium 100 Chloride 0.9% 100 ml @ 33 .333 mls/hr IVPB Q8HR [facility] Rx#:[id number] Sodium Chloride 0.9% 1, 675 900 000 ml @ 75 mls/hr IV . [id number] [facility] Rx#:[id number] Output: Urine 500 700 Uretheral (Madsen) 300 Other: Voiding Method Indwelling Catheter Urinal Urinal - Labs CBC & Chem 7: 02/22/22 12:36 02/22/22 12:36 Labs: Abnormal Lab Results - Last 24 Hours (Table) 02/22/22 02/22/22 Range/Units 12:36 12:36 RBC 3.15 L (4.30-5.90) m/uL Hgb 9.4 L (13.0-17.5) gm/dL Hct 31.3 L (39.0-53.0) % MCHC 30.1 L (31.0-37.0) g/dL Neutrophils # 7.9 H (1.3-7.7) k/uL Lymphocytes # 0.3 L (1.0-4.8) k/uL Chloride 112 H (98-107) mmol/L Carbon Dioxide 20 L (22-30) mmol/L BUN 66 H (9-20) mg/dL Creatinine 1.57 H (0.66-1.25) mg/dL Calcium 8.1 L (8.4-10.2) mg/dL Assessment and Plan Time with Patient: Less than 30
--- NOTE | 2022-02-22 18:35 | P.PN ---
Subjective Progress Note Date: 02/22/22 This is a 76-year-old male who is very well-known to me, hospitalized on multiple occasions for pneumonia with gram-negative most recent infection was related to Pseudomonas and the patient was taken off the patient antibiotics with IV meropenem. The patient has history of COPD, lung mass that was treated with SBR T and history of tracheal bronchomalacia. He has had multiple pneumonias and multiple hospitalizations in the past for the same. During the most recent hospitalization of jan 2022, the patient was treated for a recurrent Pseudomonas pneumonia Note that the patient has had previous infections with Pseudomonas, stenotrophomonas, and MRSA. The patient came into the ED with complaints of diffuse abdominal pain but more in the right lower abdomen. Patient reports that his abdominal pain started Thursday morning. The pain came on suddenly. He'd been nauseated and having acid reflux. She reports that his ostomy output had decreased he was still making a small amount of stool through his ostomy. But has stopped having any flatus over the last couple a days. Patient does have a prior history of diverticulitis with perforation requiring bowel resection with colostomy placement in March 2021 in [place]. He also has a past surgical history of a right inguinal hernia repair. Patient had a computed tomography scan abdomen and pelvis showing a small bowel obstruction. NG tube is being placed in the ER. History of a pulmonary lung nodule requiring radiation treatment. He does have factor V Leiden mutation. The patient is seen today 02/18/2022 in follow-up on the regular medical floor. He is currently sitting up at the bedside. Awake and alert in no acute distr ess. Nasogastric tube remains in place. Still with very minimal output of the ostomy. White count 15.0. Hemoglobin 10.0. Sodium 139. Potassium 4.8. BUN 38. Creatinine 1.7. He is continued on DuoNeb inhalations, Symbicort, Singulair. Heparin for DVT prophylaxis. Surgical services are on the case. He is currently on antibiotics in the form of meropenem. The patient is seen today 02/19/2022 in follow-up. He did undergo a exploratory laparotomy with lysis of adhesions with Dr. Maribel laguna. He tolerated the procedure well. His back in the regular medical floor. He is maintaining good O2 saturations in the 90s on 2 L/m per nasal cannula. Afebrile. Hemodynamically stable. White count 14.5. Hemoglobin 9.8. Sodium 139. Potassium 4.3. Chloride 108. Bicarb 22. BUN 39. Creatinine 1.46. Glucose 69. The patient is seen today 02/20/2022 in follow-up on the regular medical floor. He is postoperative day #1. He did undergo extensive lysis of adhesions, small bowel resection and repair of incisional hernia. He is awake and alert. he is maintaining O2 saturations in the low 90s on 4 L/m per nasal cannula. There is a small amount of stool in his ostomy. White count 9.9. Hemoglobin 9.7. Sodium 142. Potassium 4.7. Bicarb 21. BUN 56. Creatinine 1.88. Glucose 103. He is working with the incentive spirometer. He is continued on DuoNeb inhalations, Symbicort, Mucinex, Singulair. He is on antibiotics in the form of meropenem. 02/21/2022, Anival is doing well. He remains nothing by mouth. NG tube is in place and there are plans to remove the NG tube today. The colostomy site has without some minimal amount of output. Surgical once is striking and intact. Roland espana has a congested cough. he is bringing minimal amount of sputum. He remains on IV meropenem regarding recurrent pseudomonal pneumonias. Note that the patient underwent an extensive surgery which involved last of adhesions, small bowel resection and repair of an incisional hernia. He had complete bowel obstruction. He remains on Lovenox portably prophylaxis. Remains on bronchodilators. Incentive spirometer and flutter valve at the bedside. Labs from today are still pending. Creatinine from yesterday was 1.88 with a BUN of 56 and a sodium level of 142. Normocytic on is down to 9.9. He is awake and alert and sitting up on a chair is postop day #2. On 02/22/2022, the patient is sitting up on a chair. He has a congested cough. He remains on IV meropenem. Limited activity and his colostomy bag. Bowel sounds are still hypoactive. Surgical once is striking and intact. NG tube was removed. His taken no chills. No new complaints. White cell count is at 8.8 with a hemoglobin of 9.4. BUN is at 66 with a creatinine of 1.7 and sodium level is at 141. He is ambulating without a walker. Objective - Vital Signs Vital signs: Vital Signs Temp 97.5 F L 02/22/22 11:04 Pulse 94 02/22/22 15:55 Resp 20 02/22/22 11:04 BP 114/65 02/22/22 11:04 Pulse Ox 95 02/22/22 11:04 FiO2 36 02/21/22 00:31 Intake & Output 02/21/22 02/22/22 02/22/22 18:59 06:59 18:59 Intake Total 233 522 4416 Output Total 500 700 Balance 108 335 6355 Weight 75.296 kg Intake: Intake, IV Titration 368 657 2532 Amount Meropenem 1 gm In Sodium 100 200 Chloride 0.9% 100 ml @ 33 .333 mls/hr IVPB Q8HR [facility] Rx#:[id number] Sodium Chloride 0.9% 1, 675 900 900 000 ml @ 75 mls/hr IV . [id number] [facility] Rx#:[id number] Output: Urine 500 700 Uretheral (Madsen) 300 Other: Voiding Method Indwelling Catheter Urinal Urinal - Exam GENERAL EXAM: Alert, pleasant 76-year-old male, on 4 L nasal cannula, comfortable in no apparent distress. HEAD: Normocephalic. EYES: Normal reaction of pupils, equal size. NOSE: Nasogastric tube secured in place. Clear with pink turbinates. THROAT: No erythema or exudates. NECK: No masses, no JVD. CHEST: No chest wall deformity. LUNGS: Equal air entry with crackles in the right lung base CVS: S1 and S2 normal with no audible murmur, regular rhythm. ABDOMEN: Surgical dressing dry and intact. Umbilical hernia reducible nontender. Ostomy bag on the side of abdomen, bowel sounds are hypoactive SPINE: No scoliosis or deformity SKIN: No rashes CENTRAL NERVOUS SYSTEM: No focal deficits, tone is normal in all 4 extremities. EXTREMITIES: There is no peripheral edema. No clubbing, no cyanosis. Peripheral pulses are intact. - Labs CBC & Chem 7: 02/22/22 12:36 02/22/22 12:36 Labs: Abnormal Lab Results - Last 24 Hours (Table) 02/22/22 02/22/22 Range/Units 12:36 12:36 RBC 3.15 L (4.30-5.90) m/uL Hgb 9.4 L (13.0-17.5) gm/dL Hct 31.3 L (39.0-53.0) % MCHC 30.1 L (31.0-37.0) g/dL Neutrophils # 7.9 H (1.3-7.7) k/uL Lymphocytes # 0.3 L (1.0-4.8) k/uL Chloride 112 H (98-107) mmol/L Carbon Dioxide 20 L (22-30) mmol/L BUN 66 H (9-20) mg/dL Creatinine 1.57 H (0.66-1.25) mg/dL Calcium 8.1 L (8.4-10.2) mg/dL Assessment and Plan Assessment: Small bowel obstruction with distal right lower quadrant transition point noted on computed tomography scan, Prior history of diverticulitis with perforation and bowel resection with colostomy placement. Status post exploratory laparotomy with lysis of adhesions, small bowel resection, repair of incisional hernia. Postoperative day # 3, NG tube was removed. There may be some minimal amount of activity in the ileostomy bag. Surgical one-sided dry clean and intact. Umbilical hernia , post repair Gallbladder sludge noted on CT, no evidence of cholecystitis Recurrent pneumonia. The patient is having recurrent p neumonia/tracheobronchitis with pseudomonas and other gram-negative bacteria. Currently on IV meropenem. 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 coli, MRSA Right upper lobe pulmonary nodule avid on the previous PET scan and this was active on a PET scan and the patient was treated with SBRT Right renal mass being followed up on outpatient basis Factor 5 Leyden mutation Previous history of left lower extremity DVT Hypertension Chronic stage III kidney disease History of colonic perforation requiring colectomy and colostomy. Obstructive sleep apnea not using CPAP therapy Diverticulosis with previous history of diverticulitis Multiple hepatic cysts Plan: Incentive spirometer Flutter valve Mobility 4 L of oxygen by nasal cannula Remains on meropenem Increase his activity as tolerated NG tube was then removed We will continue to follow
[2022-02-22] MEDS: MAGNESIUM OXIDE 400 MG TAB PO SCH (21:26)
[2022-02-23] MEDS: HYDROmorphone 1 MG/ML 1 ML SYRINGE IVP PRN ×4 (05:11→22:08)
[2022-02-23] MEDS: SYMBICORT 80-4.5 MCG INHALER INHALATION SCH ×2 (07:27→19:41)
[2022-02-23] MEDS: IPRATROPIUM-ALBUTEROL 3 ML NEB INHALATION SCH ×4 (07:27→19:42)
[2022-02-23] MEDS: MEROPENEM 1 GM in SODIUM CHLORIDE 0.9% 100 ML IVPB SCH ×3 (08:43→23:27)
[2022-02-23] MEDS: METOPROLOL TARTRATE 25 MG TAB PO SCH ×2 (08:44→22:06)
[2022-02-23] MEDS: DOXAZOSIN 4 MG TAB PO SCH (08:44)
[2022-02-23] MEDS: LISINOPRIL-HCTZ 10-12.5 MG 1 EACH TAB PO SCH (08:44)
[2022-02-23] MEDS: MONTELUKAST 10 MG TAB PO SCH (08:45)
[2022-02-23] MEDS: LACTOBACILLUS ACIDOPH & BULGAR 1 EACH PACKET PO SCH (08:45)
[2022-02-23] MEDS: guaiFENesin 600 MG TABLET.ER PO SCH ×2 (08:45→21:52)
[2022-02-23] MEDS: PANTOPRAZOLE 40 MG TABLET PO SCH (08:45)
[2022-02-23] MEDS: ENOXAPARIN 40 MG/0.4 ML SYRINGE SQ SCH (08:45)
[2022-02-23] MEDS: allopurinoL 100 MG TAB PO SCH (08:45)
[2022-02-23 09:32] LABS: Basophils # (A) 0.02 X 10*3/uL (0.00-0.10); Basophils % (A) 0.3 %; Eosinophils # (A) 0.31 X 10*3/uL (0.04-0.35); HCT 30.6 % (39.6-50.0); HGB 9.5 g/dL (13.0-17.0); Immature Grans, Automated 0.4 %; Lymphocytes # (A) 0.64 X 10*3/uL (0.90-5.00); Lymphocytes % (A) 8.3 %; MCH 30.4 pg (27.0-32.0); MCV 97.8 fL (80.0-97.0); Mean Platelet Volume 11.8 fL (9.5-12.2); Monocytes # (A) 0.67 X 10*3/uL (0.20-1.00); Monocytes % (A) 8.7 %; NRBC Per 100 WBC 0 /100 WBCS (0.0-0.0); Neutrophils # (A) 6.07 X 10*3/uL (1.80-7.70); Neutrophils % (A) 78.3 %; Platelet Count 231 X 10*3/uL (140-440); RBC 3.13 X 10*6/uL (4.40-5.60); RDW 15.5 % (11.5-14.5); WBC 7.74 X 10*3/uL (4.50-10.00)
[2022-02-23 09:54] LABS: African American GFR (CKD) 47.1 (60.0-200.0); Anion Gap 12.7 mmol/L (10.00-18.00); BUN/Creat Ratio 38.31 Ratio (12.00-20.00); Blood Urea Nitrogen 61.3 mg/dL (9.0-27.0); Calcium 8.7 mg/dL (8.7-10.3); Carbon Dioxide 23.3 mmol/L (20.0-27.5); Non-African American GFR(CKD) 40.7 (60.0-200.0); Potassium 4.3 mmol/L (3.5-5.5)
--- NOTE | 2022-02-23 10:51 | P.PN ---
Subjective Progress Note Date: 02/23/22 Principal diagnosis: Bowel obstruction Patient is having some increased pain today. He says he was trying to space out his narcotic use. No bowel function. Denies nausea or vomiting. Labs noted. Objective - Vital Signs Vital signs: Vital Signs Temp 98.3 F 02/23/22 05:11 Pulse 105 H 02/23/22 08:40 Resp 18 02/23/22 05:11 BP 148/70 02/23/22 08:40 Pulse Ox 94 L 02/23/22 08:40 FiO2 36 02/21/22 00:31 Intake & Output 02/22/22 02/23/22 02/23/22 18:59 06:59 18:59 Intake Total 1100 1100 Output Total 1000 Balance 1100 100 Intake: Intake, IV Titration 1100 1100 Amount Meropenem 1 gm In Sodium 200 200 Chloride 0.9% 100 ml @ 33 .333 mls/hr IVPB Q8HR [facility] Rx#:[id number] Sodium Chloride 0.9% 1, 900 900 000 ml @ 75 mls/hr IV . [id number] [facility] Rx#:[id number] Output: Urine 1000 Other: Voiding Method Urinal Urinal - Exam Abdomen: Soft, mild distention, mild incisional tenderness, ostomy without significant function - Labs CBC & Chem 7: 02/23/22 05:38 02/23/22 05:38 Labs: Abnormal Lab Results - Last 24 Hours (Table) 02/22/22 02/22/22 02/23/22 Range/Units 12:36 12:36 05:38 RBC 3.15 L 3.13 L (4.30-5.90) m/uL Hgb 9.4 L 9.5 L (13.0-17.5) gm/dL Hct 31.3 L 30.6 L (39.0-53.0) % MCV 97.8 H (80.0-97.0) fL MCHC 30.1 L 31.0 L (31.0-37.0) g/dL RDW 15.5 H (11.5-14.5) % Neutrophils # 7.9 H (1.3-7.7) k/uL Lymphocytes # 0.3 L 0.64 L (1.0-4.8) k/uL Chloride 112 H (98-107) mmol/L Carbon Dioxide 20 L (22-30) mmol/L BUN 66 H (9-20) mg/dL Creatinine 1.57 H (0.66-1.25) mg/dL Est GFR (CKD-EPI)AfAm (60.0-200.0) Est GFR (CKD-EPI)NonAf (60.0-200.0) BUN/Creatinine Ratio (12.00-20.00) Ratio Calcium 8.1 L (8.4-10.2) mg/dL 02/23/22 Range/Units 05:38 RBC (4.30-5.90) m/uL Hgb (13.0-17.5) gm/dL Hct (39.0-53.0) % MCV (80.0-97.0) fL MCHC (31.0-37.0) g/dL RDW (11.5-14.5) % Neutrophils # (1.3-7.7) k/uL Lymphocytes # (1.0-4.8) k/uL Chloride (98-107) mmol/L Carbon Dioxide (22-30) mmol/L BUN 61.3 H (9-20) mg/dL Creatinine 1.6 H (0.66-1.25) mg/dL Est GFR (CKD-EPI)AfAm 47.1 L (60.0-200.0) Est GFR (CKD-EPI)NonAf 40.7 L (60.0-200.0) BUN/Creatinine Ratio 38.31 H (12.00-20.00) Ratio Calcium (8.4-10.2) mg/dL Assessment and Plan (1) SBO (small bowel obstruction) Narrative/Plan: Patient doing about the same. Bowel function still yet to return. Continue ice chips only. Increase activity as tolerated. We'll add Toradol for pain control so we can use less narcotics. Current Visit: Yes Status: Acute Code(s): K56.609 - UNSP INTESTNL OBST, UNSP TO PARTIAL VERSUS COMPLETE OBST SNOMED Code(s): 319509890
[2022-02-23] MEDS ORDERED: KETOROLAC 15 MG/ML 1 ML VIAL IVP SCH (12:00)
--- NOTE | 2022-02-23 13:09 | XR ---
EXAMINATION TYPE: XR chest 1V portable DATE OF EXAM: 02/23/2022 1:06 PM COMPARISON: Chest radiographs from 02/17/2022 TECHNIQUE: XR chest 1V portable Frontal view of the chest. CLINICAL INDICATION:Male, 76 years old with history of dyspnea; FINDINGS: Lungs/Pleura: Right lower lobe airspace opacities more prominent exam. There is no evidence of pleura l effusion, or pneumothorax. Pulmonary vascularity: Unremarkable. Heart/mediastinum: Cardiomediastinal silhouette is unremarkable. Musculoskeletal: No acute osseous pathology. IMPRESSION: Right lower lobe airspace opacities concerning for pneumonia.
[2022-02-23] MEDS: SIMETHICONE 40 MG/0.6 ML DROPS 2,000 MG/30 ML BOTTLE PO SCH ×3 (13:33→21:53)
--- NOTE | 2022-02-23 15:03 | P.PN ---
Subjective Progress Note Date: 02/23/22 This is a 76-year-old male who is very well-known to me, hospitalized on multiple occasions for pneumonia with gram-negative most recent infection was related to Pseudomonas and the patient was taken off the patient antibiotics with IV meropenem. The patient has history of COPD, lung mass that was treated with SBR T and history of tracheal bronchomalacia. He has had multiple pneumonias and multiple hospitalizations in the past for the same. During the most recent hospitalization of jan 2022, the patient was treated for a recurrent Pseudomonas pneumonia Note that the patient has had previous infections with Pseudomonas, stenotrophomonas, and MRSA. The patient came into the ED with complaints of diffuse abdominal pain but more in the right lower abdomen. Patient reports that his abdominal pain started Thursday morning. The pain came on suddenly. He'd been nauseated and having acid reflux. She reports that his ostomy output had decreased he was still making a small amount of stool through his ostomy. But has stopped having any flatus over the last couple a days. Patient does have a prior history of diverticulitis with perforation requiring bowel resection with colostomy placement in March 2021 in [place]. He also has a past surgical history of a right inguinal hernia repair. Patient had a computed tomography scan abdomen and pelvis showing a small bowel obstruction. NG tube is being placed in the ER. History of a pulmonary lung nodule requiring radiation treatment. He does have factor V Leiden mutation. The patient is seen today 02/18/2022 in follow-up on the regular medical floor. He is currently sitting up at the bedside. Awake and alert in no acute distr ess. Nasogastric tube remains in place. Still with very minimal output of the ostomy. White count 15.0. Hemoglobin 10.0. Sodium 139. Potassium 4.8. BUN 38. Creatinine 1.7. He is continued on DuoNeb inhalations, Symbicort, Singulair. Heparin for DVT prophylaxis. Surgical services are on the case. He is currently on antibiotics in the form of meropenem. The patient is seen today 02/19/2022 in follow-up. He did undergo a exploratory laparotomy with lysis of adhesions with Dr. Maribel laguna. He tolerated the procedure well. His back in the regular medical floor. He is maintaining good O2 saturations in the 90s on 2 L/m per nasal cannula. Afebrile. Hemodynamically stable. White count 14.5. Hemoglobin 9.8. Sodium 139. Potassium 4.3. Chloride 108. Bicarb 22. BUN 39. Creatinine 1.46. Glucose 69. The patient is seen today 02/20/2022 in follow-up on the regular medical floor. He is postoperative day #1. He did undergo extensive lysis of adhesions, small bowel resection and repair of incisional hernia. He is awake and alert. he is maintaining O2 saturations in the low 90s on 4 L/m per nasal cannula. There is a small amount of stool in his ostomy. White count 9.9. Hemoglobin 9.7. Sodium 142. Potassium 4.7. Bicarb 21. BUN 56. Creatinine 1.88. Glucose 103. He is working with the incentive spirometer. He is continued on DuoNeb inhalations, Symbicort, Mucinex, Singulair. He is on antibiotics in the form of meropenem. 02/21/2022, Anival is doing well. He remains nothing by mouth. NG tube is in place and there are plans to remove the NG tube today. The colostomy site has without some minimal amount of output. Surgical once is striking and intact. Roland espana has a congested cough. he is bringing minimal amount of sputum. He remains on IV meropenem regarding recurrent pseudomonal pneumonias. Note that the patient underwent an extensive surgery which involved last of adhesions, small bowel resection and repair of an incisional hernia. He had complete bowel obstruction. He remains on Lovenox portably prophylaxis. Remains on bronchodilators. Incentive spirometer and flutter valve at the bedside. Labs from today are still pending. Creatinine from yesterday was 1.88 with a BUN of 56 and a sodium level of 142. Normocytic on is down to 9.9. He is awake and alert and sitting up on a chair is postop day #2. On 02/22/2022, the patient is sitting up on a chair. He has a congested cough. He remains on IV meropenem. Limited activity and his colostomy bag. Bowel sounds are still hypoactive. Surgical once is striking and intact. NG tube was removed. His taken no chills. No new complaints. White cell count is at 8.8 with a hemoglobin of 9.4. BUN is at 66 with a creatinine of 1.7 and sodium level is at 141. He is ambulating without a walker. On today's evaluation of 02/23/2022, the patient denies having any nausea and vomiting. GI surgeries on the case regarding the progress of the surgery. NG tube remains out. The bowel function has not returned yet. The patient is taking anxious. He is active. He is having total for pain control. Restasis as remains stable and the patient remains on IV meropenem. Remains on DuoNeb about treatments [id number]. Using incentive spirometer. Blood work from today shows that the dermis count is at 7.4 with a hemoglobin drop 9.5. BUN is at 61 with a creatinine 1.6 and a sodium level is at 144. Objective - Vital Signs Vital signs: Vital Signs Temp 98.3 F 02/23/22 11:35 Pulse 98 02/23/22 11:35 Resp 20 02/23/22 11:35 BP 148/70 02/23/22 08:40 Pulse Ox 94 L 02/23/22 11:35 FiO2 36 02/21/22 00:31 Intake & Output 02/22/22 02/23/22 02/23/22 18:59 06:59 18:59 Intake Total 1100 1100 Output Total 1000 Balance 1100 100 Intake: Intake, IV Titration 1100 1100 Amount Meropenem 1 gm In Sodium 200 200 Chloride 0.9% 100 ml @ 33 .333 mls/hr IVPB Q8HR [facility] Rx#:[id number] Sodium Chloride 0.9% 1, 900 900 000 ml @ 75 mls/hr IV . [id number] [facility] Rx#:[id number] Output: Urine 1000 Other: Voiding Method Urinal Urinal - Exam GENERAL EXAM: Alert, pleasant 76-year-old male, on 4 L nasal cannula, comfortable in no apparent distress. HEAD: Normocephalic. EYES: Normal reaction of pupils, equal size. NOSE: Nasogastric tube secured in place. Clear with pink turbinates. THROAT: No erythema or exudates. NECK: No masses, no JVD. CHEST: No chest wall deformity. LUNGS: Equal air entry with crackles in the right lung base CVS: S1 and S2 normal with no audible murmur, regular rhythm. ABDOMEN: Surgical dressing dry and intact. Umbilical hernia reducible nontender. Ostomy bag on the side of abdomen, bowel sounds are hypoactive SPINE: No scoliosis or deformity SKIN: No rashes CENTRAL NERVOUS SYSTEM: No focal deficits, tone is normal in all 4 extremities. EXTREMITIES: There is no peripheral edema. No clubbing, no cyanosis. Peripheral pulses are intact. - Labs CBC & Chem 7: 02/23/22 05:38 02/23/22 05:38 Labs: Abnormal Lab Results - Last 24 Hours (Table) 02/23/22 02/23/22 Range/Units 05:38 05:38 RBC 3.13 L (4.40-5.60) X 10*6/uL Hgb 9.5 L (13.0-17.0) g/dL Hct 30.6 L (39.6-50.0) % MCV 97.8 H (80.0-97.0) fL MCHC 31.0 L (32.0-37.0) g/dL RDW 15.5 H (11.5-14.5) % Lymphocytes # 0.64 L (0.90-5.00) X 10*3/uL BUN 61.3 H (9.0-27.0) mg/dL Creatinine 1.6 H (0.6-1.5) mg/dL Est GFR (CKD-EPI)AfAm 47.1 L (60.0-200.0) Est GFR (CKD-EPI)NonAf 40.7 L (60.0-200.0) BUN/Creatinine Ratio 38.31 H (12.00-20.00) Ratio Assessment and Plan Assessment: Small bowel obstruction with distal right lower quadrant transition point noted on computed tomography scan, Prior history of diverticulitis with perforation and bowel resection with colostomy placement. Status post exploratory laparotomy with lysis of adhesions, small bowel resection, repair of incisional hernia. Postoperative day # 3, NG tube was removed. There may be some minimal amount of activity in the ileostomy bag. Surgical one-sided dry clean and intact. Umbilical hernia , post repair Gallbladder sludge noted on CT, no evidence of cholecystitis Recurrent pneumonia. The patient is having recurrent pneumonia/tracheobronchitis with pseudomonas and other gram-negative bacteria. Currently on IV meropenem. 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 coli, MRSA Right upper lobe pulmonary nodule avid on the previous PET scan and this was active on a PET scan and the patient was treated with SBRT Right renal mass being followed up on outpatient basis Factor 5 Leyden mutation Previous history of left lower extremity DVT Hypertension Chronic stage III kidney disease History of colonic perforation requiring colectomy and colostomy. Obstructive sleep apnea not using CPAP therapy Diverticulosis with previous history of diverticulitis Multiple hepatic cysts Plan: Ice chips Bowel function has not returned yet Incentive spirometer Flutter valve Mobility 4 L of oxygen by nasal cannula Continue meropenem Increase his activity as tolerated NG tube was then removed We will continue to follow
[2022-02-23] MEDS ORDERED: FUROSEMIDE 10 MG/ML 4 ML VIAL IV STA (15:18)
--- NOTE | 2022-02-23 15:28 | P.PN ---
Subjective Progress Note Date: 02/23/22 This is a 76 year old male who initially has been followed by Dr. Cervantes, picking up coverage today. He is monitored on medical floor, today he is postoperative day #3 for abdominal surgery secondary to bowel obstruction. Bowel sounds are noted on examination, there is small brown soft stool in ostomy bag. Stoma site in tact. midline dressing intact. He does report 10/10 abdominal pain has been receiving IV dialudid for this. Would benefit from adding oral pain medication. Reports some improvement with pain medication but not much. He is achieving 1500 on incentive spirometer. He continues on IV meropenem for history of recurrent pseudomonas pneumonia. White count today is 8.8, hgb 9.4, sodium 141, potassium 4.5, BUN 66, creatinine 1.57, glucose 97. He is currently NPO with ice chips. Being hydrated with normal saline at 75 mls per hour. He does report some left shoulder discomfort, has full range of motion no pain with range of motion exercises he had been ambulating in room with walker when happened. Will monitor. 02/23/2022 Patient is evaluated today resting in bed. He has increased abdominal pain today and also increased abdominal distention. Bowels are hypoactive, minimal stool in ostomy bag. He feels more gassy today which mylicon will be added. Additionally he is more short of breath today and has crackles noted on exam. Chest xray will be ordered and patient will most likely need a dose of IV lasix, no prior history of heart failure noted in medical history. Possibly volume overload. Patient is NPO at this time per surgery recommendations. Hold IV fluids for now, continues on IV meropenem. Hgb stable today at 7.5. No white count. Creatinine increased slightly to 1.6 today. 1L of urine output noted in the last 24 hours. Remains afebrile, oxygen has been increased to 5L nasal cannula. Review of Systems Constitutional: Denied any fatigue denied any fever. Cardio vascular: denied any chest pain, palpitations Gastrointestinal: denied any nausea, vomiting, diarrhea. Reports increased abdominal pain and increased gas and distention. Pulmonary: Reports shortness of breath, cough Neurologic denied any new focal deficits All inpatient medications were reviewed and appropriate changes in these medications as dictated in the interval history and assessment and plan. PHYSICAL EXAMINATION: GENERAL: The patient is alert and oriented x3, not in any acute distress. Well developed, well nourished. HEENT: Pupils are round and equally reacting to light. EOMI. No scleral icterus. No conjunctival pallor. Normocephalic, atraumatic. No pharyngeal erythema. No thyromegaly. CARDIOVASCULAR: S1 and S2 present. No murmurs, rubs, or gallops. PULMONARY: Scattered crackles noted with congested cough. ABDOMEN: Soft, Tender, distended, hypoactive bowel sounds. No palpable organomegaly. Post surgical abdomen with colostomy bag left lower quadrant small amount of brown stool in bag. MUSCULOSKELETAL: No joint swelling or deformity. EXTREMITIES: No cyanosis, clubbing, Pitting ankle edema +1. NEUROLOGICAL: Gross neurological examination did not reveal any focal deficits. SKIN: No rashes. Assessment and Plan -Acute hypoxic respiratory failure secondary to possible acute CHF, diastolic secondary to continued IV fluids. -Acute small bowel obstruction with distal right lower quadrant transition zone noted. Bowel surgery earlier in the year in [place].: 02/19/2022:extensive lysis of adhesions and small bowel resection and repair of incisional hernia by Dr. Munoz. NG tube has been discontinued he has minimal brown stool from colostomy. NPO with ice chips Increased abdominal distention and gas today mylicon gtts have been added QID -Recent Acute right basal pneumonia in a patient with Recurrent pneumonia in a patient with underlying COPD. recent cultures have been positive sputum positive for stenitophomas maltophilia, MRSA, E. coli. And now on January 23 positive for pseudomonas aeruginosa. IV meropenem every 8. Pulmonary following. -COPD in a previous smoker: Better DuoNeb 4 times a day. Symbicort -Chronic hypoxic respiratory failure from COPD Home oxygen 2 L currently with acute on chronic hypoxic respiratory failure on 5L nasal cannula -Hyperuricemia Allopurinol 100 mg a day -Factor V Leyden mutation -Right upper lung nodule treated with the radiation Follow with pulmonary -Essential hypertension Lopressor 25 mg twice a day also on lisonorpil/hctz, blood pressure is normotensive currently -BPH Cardura 4 mg a day -Anxiety not otherwise specified Xanax when necessary -Chronic kidney disease likely nephrosclerosis stage III Follow renal function Plan Continue IV meropenem, inhalers, oxygen support. Continue NPO diet with ice chips, Increase activity as tolerated. Continue with supportive care. Diet recommendations from surgery. Pulmonary following. Chest xray ordered and also proBNP recommend to hold IV fluids for now patient may need a dose of IV lasix. Has some ankle edema as well today. Reports increa sed shortness of breath. Mylicon gtts added for increased gas and abdominal distention. The impression and plan of care has been dictated by Cathy Terry, Nurse Practitioner as directed. Dr. Marisol MD I have performed a history and physical examination and medical decision making of this patient, discussed the same with the dictator, and agree with the dictators assessment and plan as written, documented as a scribe. Based on total visit time, I have performed more than 50% of this visit. Objective - Vital Signs Vital signs: Vital Signs Temp 98.3 F 02/23/22 11:35 Pulse 98 02/23/22 11:35 Resp 20 02/23/22 11:35 BP 148/70 02/23/22 08:40 Pulse Ox 94 L 02/23/22 11:35 FiO2 36 02/21/22 00:31 Intake & Output 02/22/22 02/23/22 02/23/22 18:59 06:59 18:59 Intake Total 1100 1100 Output Total 1000 Balance 1100 100 Intake: Intake, IV Titration 1100 1100 Amount Meropenem 1 gm In Sodium 200 200 Chloride 0.9% 100 ml @ 33 .333 mls/hr IVPB Q8HR [facility] Rx#:[id number] Sodium Chloride 0.9% 1, 900 900 000 ml @ 75 mls/hr IV . [id number] [facility] Rx#:[id number] Output: Urine 1000 Other: Voiding Method Urinal Urinal - Labs CBC & Chem 7: 02/23/22 05:38 02/23/22 05:38 Labs: Abnormal Lab Results - Last 24 Hours (Table) 02/22/22 02/22/22 02/23/22 Range/Units 12:36 12:36 05:38 RBC 3.15 L 3.13 L (4.30-5.90) m/uL Hgb 9.4 L 9.5 L (13.0-17.5) gm/dL Hct 31.3 L 30.6 L (39.0-53.0) % MCV 97.8 H (80.0-97.0) fL MCHC 30.1 L 31.0 L (31.0-37.0) g/dL RDW 15.5 H (11.5-14.5) % Neutrophils # 7.9 H (1.3-7.7) k/uL Lymphocytes # 0.3 L 0.64 L (1.0-4.8) k/uL Chloride 112 H (98-107) mmol/L Carbon Dioxide 20 L (22-30) mmol/L BUN 66 H (9-20) mg/dL Creatinine 1.57 H (0.66-1.25) mg/dL Est GFR (CKD-EPI)AfAm (60.0-200.0) Est GFR (CKD-EPI)NonAf (60.0-200.0) BUN/Creatinine Ratio (12.00-20.00) Ratio Calcium 8.1 L (8.4-10.2) mg/dL 02/23/22 Range/Units 05:38 RBC (4.30-5.90) m/uL Hgb (13.0-17.5) gm/dL Hct (39.0-53.0) % MCV (80.0-97.0) fL MCHC (31.0-37.0) g/dL RDW (11.5-14.5) % Neutrophils # (1.3-7.7) k/uL Lymphocytes # (1.0-4.8) k/uL Chloride (98-107) mmol/L Carbon Dioxide (22-30) mmol/L BUN 61.3 H (9-20) mg/dL Creatinine 1.6 H (0.66-1.25) mg/dL Est GFR (CKD-EPI)AfAm 47.1 L (60.0-200.0) Est GFR (CKD-EPI)NonAf 40.7 L (60.0-200.0) BUN/Creatinine Ratio 38.31 H (12.00-20.00) Ratio Calcium (8.4-10.2) mg/dL Assessment and Plan Time with Patient: Less than 30
[2022-02-23] MEDS: MAGNESIUM OXIDE 400 MG TAB PO SCH (21:52)
[2022-02-24] MEDS: HYDROmorphone 1 MG/ML 1 ML SYRINGE IVP PRN ×4 (06:28→22:01)
[2022-02-24] MEDS: SYMBICORT 80-4.5 MCG INHALER INHALATION SCH ×2 (08:08→20:28)
[2022-02-24] MEDS: IPRATROPIUM-ALBUTEROL 3 ML NEB INHALATION SCH ×4 (08:08→20:28)
[2022-02-24] MEDS: ENOXAPARIN 40 MG/0.4 ML SYRINGE SQ SCH (09:31)
[2022-02-24] MEDS: PANTOPRAZOLE 40 MG TABLET PO SCH (09:31)
[2022-02-24] MEDS: allopurinoL 100 MG TAB PO SCH (09:31)
[2022-02-24] MEDS: LACTOBACILLUS ACIDOPH & BULGAR 1 EACH PACKET PO SCH ×2 (09:31→11:19)
[2022-02-24] MEDS: MEROPENEM 1 GM in SODIUM CHLORIDE 0.9% 100 ML IVPB SCH ×2 (09:31→18:37)
[2022-02-24] MEDS: guaiFENesin 600 MG TABLET.ER PO SCH ×2 (09:31→22:01)
[2022-02-24] MEDS: MONTELUKAST 10 MG TAB PO SCH (09:31)
[2022-02-24] MEDS: METOPROLOL TARTRATE 25 MG TAB PO SCH ×2 (09:31→22:01)
[2022-02-24] MEDS: LISINOPRIL-HCTZ 10-12.5 MG 1 EACH TAB PO SCH (09:31)
[2022-02-24] MEDS: DOXAZOSIN 4 MG TAB PO SCH (09:32)
[2022-02-24] MEDS: SIMETHICONE 40 MG/0.6 ML DROPS 2,000 MG/30 ML BOTTLE PO SCH ×4 (09:35→22:13)
[2022-02-24 09:46] LABS: African American GFR (CKD) 51 (>60 ml/min/1.73 sqM); Anion Gap 7 mmol/L; Blood Urea Nitrogen 67 mg/dL (9-20); Calcium 8.4 mg/dL (8.4-10.2); Carbon Dioxide 27 mmol/L (22-30); Chloride 111 mmol/L (98-107); Glucose 81 mg/dL (74-99); Non-African American GFR(CKD) 44 (>60 ml/min/1.73 sqM); Potassium 3.9 mmol/L (3.5-5.1); Sodium 145 mmol/L (137-145)
[2022-02-24] MEDS ORDERED: SODIUM CHLORIDE 0.9% 1,000 ML IV SCH (10:00)
--- NOTE | 2022-02-24 12:24 | P.PN ---
Subjective Progress Note Date: 02/24/22 This is a 76-year-old male who is very well-known to me, hospitalized on multiple occasions for pneumonia with gram-negative most recent infection was related to Pseudomonas and the patient was taken off the patient antibiotics with IV meropenem. The patient has history of COPD, lung mass that was treated with SBR T and history of tracheal bronchomalacia. He has had multiple pneumonias and multiple hospitalizations in the past for the same. During the most recent hospitalization of jan 2022, the patient was treated for a recurrent Pseudomonas pneumonia Note that the patient has had previous infections with Pseudomonas, stenotrophomonas, and MRSA. The patient came into the ED with complaints of diffuse abdominal pain but more in the right lower abdomen. Patient reports that his abdominal pain started Thursday morning. The pain came on suddenly. He'd been nauseated and having acid reflux. She reports that his ostomy output had decreased he was still making a small amount of stool through his ostomy. But has stopped having any flatus over the last couple a days. Patient does have a prior history of diverticulitis with perforation requiring bowel resection with colostomy placement in March 2021 in [place]. He also has a past surgical history of a right inguinal hernia repair. Patient had a computed tomography scan abdomen and pelvis showing a small bowel obstruction. NG tube is being placed in the ER. History of a pulmonary lung nodule requiring radiation treatment. He does have factor V Leiden mutation. The patient is seen today 02/18/2022 in follow-up on the regular medical floor. He is currently sitting up at the bedside. Awake and alert in no acute distr ess. Nasogastric tube remains in place. Still with very minimal output of the ostomy. White count 15.0. Hemoglobin 10.0. Sodium 139. Potassium 4.8. BUN 38. Creatinine 1.7. He is continued on DuoNeb inhalations, Symbicort, Singulair. Heparin for DVT prophylaxis. Surgical services are on the case. He is currently on antibiotics in the form of meropenem. The patient is seen today 02/19/2022 in follow-up. He did undergo a exploratory laparotomy with lysis of adhesions with Dr. Maribel laguna. He tolerated the procedure well. His back in the regular medical floor. He is maintaining good O2 saturations in the 90s on 2 L/m per nasal cannula. Afebrile. Hemodynamically stable. White count 14.5. Hemoglobin 9.8. Sodium 139. Potassium 4.3. Chloride 108. Bicarb 22. BUN 39. Creatinine 1.46. Glucose 69. The patient is seen today 02/20/2022 in follow-up on the regular medical floor. He is postoperative day #1. He did undergo extensive lysis of adhesions, small bowel resection and repair of incisional hernia. He is awake and alert. he is maintaining O2 saturations in the low 90s on 4 L/m per nasal cannula. There is a small amount of stool in his ostomy. White count 9.9. Hemoglobin 9.7. Sodium 142. Potassium 4.7. Bicarb 21. BUN 56. Creatinine 1.88. Glucose 103. He is working with the incentive spirometer. He is continued on DuoNeb inhalations, Symbicort, Mucinex, Singulair. He is on antibiotics in the form of meropenem. 02/21/2022, Anival is doing well. He remains nothing by mouth. NG tube is in place and there are plans to remove the NG tube today. The colostomy site has without some minimal amount of output. Surgical once is striking and intact. He has a congested cough. he is bringing minimal amount of sputum. He remains on IV meropenem regarding recurrent pseudomonal pneumonias. Note that the patient underwent an extensive surgery which involved last of adhesions, small bowel resection and repair of an incisional hernia. He had complete bowel obstruction. He remains on Lovenox portably prophylaxis. Remains on bronchodilators. Incentive spirometer and flutter valve at the bedside. Labs from today are still pending. Creatinine from yesterday was 1.88 with a BUN of 56 and a sodium level of 142. Normocytic on is down to 9.9. He is awake and alert and sitting up on a chair is postop day #2. On 02/22/2022, the patient is sitting up on a chair. He has a congested cough. He remains on IV meropenem. Limited activity and his colostomy bag. Bowel sounds are still hypoactive. Surgical once is striking and intact. NG tube was removed. His taken no chills. No new complaints. White cell count is at 8.8 with a hemoglobin of 9.4. BUN is at 66 with a creatinine of 1.7 and sodium level is at 141. He is ambulating without a walker. On today's evaluation of 02/23/2022, the patient denies having any nausea and vomiting. GI surgeries on the case regarding the progress of the surgery. NG tube remains out. The bowel function has not returned yet. The patient is taking anxious. He is active. He is having total for pain control. Restasis as remains stable and the patient remains on IV meropenem. Remains on DuoNeb about treatments [id number]. Using incentive spirometer. Blood work from today shows that the dermis count is at 7.4 with a hemoglobin drop 9.5. BUN is at 61 with a creatinine 1.6 and a sodium level is at 144. The patient is seen today 02/24/2022 in follow-up on the regular medical floor. He is currently resting fairly comfortably in bed. He is awake and alert in no acute distress. He is having some ongoing issues with abdominal discomfort. He was having episodes of nausea and vomiting last night and a nasogastric tube was reinserted. He is maintaining good O2 saturation in the 90s on 4 L/m per nasal cannula. He is afebrile. Hemodynamically stable. Most recent chest x-ray still revealing a right lower lobe opacities. Sodium 145. Potassium 3.9. BUN 67. Creatinine 1.49. ProBNP 1400. The patient is continued on Symbicort, DuoNeb inhalations. Antibiotics in the form of meropenem. DVT prophylaxis with Lovenox. Normal saline at 50 MLS per hour. Objective - Vital Signs Vital signs: Vital Signs Temp 98 F 02/24/22 04:49 Pulse 80 02/24/22 12:08 Resp 16 02/24/22 08:00 BP 131/74 02/24/22 04:49 Pulse Ox 95 02/24/22 08:08 FiO2 36 02/21/22 00:31 Intake & Output 02/23/22 02/24/22 02/24/22 18:59 06:59 18:59 Intake Total 1100 1000 Output Total 2100 Balance 1100 -1100 Intake: Intake, IV Titration 1100 1000 Amount Meropenem 1 gm In Sodium 200 100 Chloride 0.9% 100 ml @ 33 .333 mls/hr IVPB Q8HR [facility] Rx#:[id number] Sodium Chloride 0.9% 1, 900 900 000 ml @ 75 mls/hr IV . [id number] [facility] Rx#:[id number] Output: Gastric Drainage 1000 Urine 1100 Other: Voiding Method Urinal Urinal - Exam GENERAL EXAM: Alert, 76-year-old male, on 4 L nasal cannula, fairly comfortable in no apparent distress. HEAD: Normocephalic. EYES: Normal reaction of pupils, equal size. NOSE: Nasogastric tube secured in place. Clear with pink turbinates. THROAT: No erythema or exudates. NECK: No masses, no JVD. CHEST: No chest wall deformity. LUNGS: Equal air entry with crackles in the right lung base CVS: S1 and S2 normal with no audible murmur, regular rhythm. ABDOMEN: Some tenderness on palpation. Surgical dressing dry and intact. Umbilical hernia reducible nontender. Ostomy bag on the side of abdomen SPINE: No scoliosis or deformity SKIN: No rashes CENTRAL NERVOUS SYSTEM: No focal deficits, tone is normal in all 4 extremities. EXTREMITIES: There is no peripheral edema. No clubbing, no cyanosis. Peripheral pulses are intact. - Labs CBC & Chem 7: 02/23/22 05:38 02/24/22 08:09 Labs: Abnormal Lab Results - Last 24 Hours (Table) 02/24/22 Range/Units 08:09 Chloride 111 H (98-107) mmol/L BUN 67 H (9-20) mg/dL Creatinine 1.49 H (0.66-1.25) mg/dL Assessment and Plan Assessment: Small bowel obstruction with distal right lower quadrant transition point noted on computed tomography scan, Prior history of diverticulitis with perforation and bowel resection with colostomy placement. Status post exploratory laparotomy with lysis of adhesions, small bowel resection, repair of incisional hernia on 02/19/2022. Developed nausea and vomiting and required nasal tube reinsertion on 02/23/2022. Umbilical hernia reduciblestatus post repair Gallbladder sludge noted on CT, no evidence of cholecystitis Recurrent pneumonia. The patient is having recurrent pneumonia/tracheobronchitis with pseudomonas and other gram-negative bacteria. Currently on IV meropenem. 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 coli, MRSA Right upper lobe pulmonary nodule avid on the previous PET scan and this was active on a PET scan and the patient was treated with SBRT Right renal mass being followed up on outpatient basis Factor 5 Leyden mutation Previous history of left lower extremity DVT Hypertension Chronic stage III kidney disease History of colonic perforation requiring colectomy and colostomy. Obstructive sleep apnea not using CPAP therapy Diverticulosis with previous history of diverticulitis Multiple hepatic cysts Plan: The patient was seen and evaluated Chest x-ray, medications and labs reviewed Required reinsertion of nasogastric tube Continues with abdominal discomfort Surgery remains on the case Remains on meropenem Increase his activity as tolerated We will continue to follow I have personally seen and examined the patient, performed the documentation and the assessment and plan as written. Number of minutes spent on the visit: 10.
[2022-02-24 13:03] LABS: Magnesium 2.2 mg/dL (1.6-2.3); Phosphorus 4.1 mg/dL (2.5-4.5)
--- NOTE | 2022-02-24 13:06 | P.PN ---
Subjective Progress Note Date: 02/24/22 CHIEF COMPLAINT: Small bowel obstruction HISTORY OF PRESENT ILLNESS: Patient is postop day #5 status post small bowel resection, extensive lysis of adhesions and repair of incisional hernia. Patient developed an ileus the weekend. Had have NG tube reinserted. He had been having vomiting, abdominal pain and abdominal distention. Patient reports improvement with the NG tube. He had 1 L output through NG tube when NG tube was inserted last night. Patient has very minimal output through ostomy. He reports that most of his pains in the right lower quadrant. Afebrile. Creatinine 1.49 chest x-ray right lower lobe airspace opacities concerning for pneumonia. Patient seen and examined by Dr. mackay PHYSICAL EXAM: VITAL SIGNS: Reviewed. GENERAL: Well-developed in no acute distress. HEENT: No sclera icterus. Extraocular movements grossly intact. Moist buccal mucosa. Head is atraumatic, normocephalic. ABDOMEN: Soft. Distended. Tenderness right lower quadrant. Ostomy with very minimal liquidy stool. Incision site clean dry and intact NEUROLOGIC: Alert and oriented. Cranial nerves II through XII grossly intact. ASSESSMENT: 1. Small bowel obstruction secondary to internal hernia from adhesive band status post extensive lysis of adhesions, small bowel resection and repair of incisional hernia 2. Gallbladder sludge noted on CT. Patient denies any right upper quadrant pain 3. Prior history of diverticulitis with perforation and bowel resection with colostomy placement 4. Pneumonia 5. Postoperative ileus PLAN: -Continue NG tube for decompression -Keep patient nothing by mouth except for ice chips -PICC line ordered for TPN -Consult dietitian for TPN for nutrition support -Start normal saline at 50 mL an hour -Continue pain management -Encouraged patient to increase activity level -Encouraged patient to use incentive spirometer -Continue GI prophylaxis Protonix and DVT prophylaxis Lovenox Physician Employment And Claims Aide note has been reviewed by physician. Signing provider agrees with the documented findings, assessment, and plan of care. Objective - Vital Signs Vital signs: Vital Signs Temp 97.7 F 02/24/22 12:15 Pulse 84 02/24/22 12:19 Resp 20 02/24/22 12:15 BP 105/63 02/24/22 12:15 Pulse Ox 94 L 02/24/22 12:15 FiO2 36 02/21/22 00:31 Intake & Output 1202/24/22 02/24/22 18:59 06:59 18:59 Intake Total 1100 1000 Output Total 2100 Balance 1100 -1100 Intake: Intake, IV Titration 1100 1000 Amount Meropenem 1 gm In Sodium 200 100 Chloride 0.9% 100 ml @ 33 .333 mls/hr IVPB Q8HR [facility] Rx#:[id number] Sodium Chloride 0.9% 1, 900 900 000 ml @ 75 mls/hr IV . [id number] [facility] Rx#:[id number] Output: Gastric Drainage 1000 Urine 1100 Other: Voiding Method Urinal Urinal - Labs CBC & Chem 7: 02/23/22 05:38 02/24/22 08:09 Labs: Abnormal Lab Results - Last 24 Hours (Table) 02/24/22 Range/Units 08:09 Chloride 111 H (98-107) mmol/L BUN 67 H (9-20) mg/dL Creatinine 1.49 H (0.66-1.25) mg/dL
[2022-02-24] MEDS ORDERED: MVI, ADULT NO.4 WITH VIT K 10 ML, TRACE (CONC-1ML/DOSE) 1 ML, SODIUM ACETATE 30 MEQ, PO... IV ONE ×6 (15:00)
[2022-02-24] MEDS: BARIUM SULFATE 450 ML ORAL.SUSP BOTTLE PO PRN ×2 (15:53→19:12)
[2022-02-24] MEDS: FAT EMULSION 20% 250 ML IV SCH (18:03)
[2022-02-24 18:17] LABS: Glucose,Whole Blood 90 mg/dL (70-110)
--- NOTE | 2022-02-24 20:51 | CT ---
EXAMINATION TYPE: CT abdomen pelvis wo con CT DLP: 668.5 mGycm, Automated exposure control for dose reduction was used. DATE OF EXAM: 02/24/2022 8:22 PM COMPARISON: CT abdomen pelvis most recent from 02/17/2022 . CLINICAL INDICATION:Male, 76 years old with history of abdominal pain, distention; PAIN, DISTENTION. SBO. TECHNIQUE: Standard CT of the abdomen and pelvis following the administration of oral contrast. Cor onal and sagittal reformats were performed. FINDINGS: LOWER CHEST: Small bilateral pleural effusions with associated atelectasis. Patchy tree-in-bud opacit ies within the bilateral lower lobes. ABDOMEN LIVER: Multiple hypoattenuating lesions within the liver most consistent with cysts. GALLBLADDER AND BILE DUCTS: Layering hyperattenuating material within the gallbladder which may repre sent vicarious region of contrast versus gallstones. PANCREAS: Unremarkable noncontrast appearance. SPLEEN: Calcified granuloma. ADRENAL GLANDS: Unremarkable noncontrast appearance. KIDNEYS AND URETERS: No evidence of hydronephrosis or renal calculus. Bilateral renal vascular calcif ications. Right renal cyst redemonstrated. Nonspecific bilateral perinephric fat stranding. PELVIS BLADDER: Unremarkable REPRODUCTIVE: Coarse calcifications of the prostate gland are identified. ABDOMEN & PELVIS STOMACH AND BOWEL: Enteric tube terminates within the stomach body lumen. Dilated gas and fluid-fille d small bowel measuring up to 4.5 cm. No focal transition point identified. Enteric contrast reaches the mid small bowel. Postsurgical changes with anastomosis in the right lower quadrant. Distal coloni c diverticulosis without evidence for acute diverticulitis. PERITONEUM: No evidence of pneumoperitoneum or free fluid. VASCULATURE: Moderate atherosclerotic calcifications are present throughout the abdominal aorta and i ts branches. No evidence of aortic aneurysm. MUSCULOSKELETAL: No acute osseous abnormalities. Mild disc degeneration changes are present throughou t the thoracolumbar spine. LYMPH NODES: No gross evidence for lymphadenopathy. SOFT TISSUE/ABDOMINAL WALL: Postsurgical changes of the anterior wall skin escobar identified. Few fo ci of gas identified likely related to recent postsurgical change. Left lower quadrant ostomy contain ing fat and fluid redemonstrated. IMPRESSION: 1. Fluid and gas-filled dilated small bowel with postsurgical changes. Focal transition point is not well identified. Findings suggest postoperative ileus. Continued follow-up is recommended. 2. Small bilateral pleural effusions with bilateral lower lobe tree-in-bud opacities concerning for i nfiltrates.
[2022-02-24] MEDS: MAGNESIUM OXIDE 400 MG TAB PO SCH (22:01)
--- NOTE | 2022-02-25 00:03 | P.PN ---
Subjective Progress Note Date: 02/24/22 This is a 76 year old male who initially has been followed by Dr. Cervantes, picking up coverage today. He is monitored on medical floor, today he is postoperative day #3 for abdominal surgery secondary to bowel obstruction. Bowel sounds are noted on examination, there is small brown soft stool in ostomy bag. Stoma site in tact. midline dressing intact. He does report 10/10 abdominal pain has been receiving IV dialudid for this. Would benefit from adding oral pain medication. Reports some improvement with pain medication but not much. He is achieving 1500 on incentive spirometer. He continues on IV meropenem for history of recurrent pseudomonas pneumonia. White count today is 8.8, hgb 9.4, sodium 141, potassium 4.5, BUN 66, creatinine 1.57, glucose 97. He is currently NPO with ice chips. Being hydrated with normal saline at 75 mls per hour. He does report some left shoulder discomfort, has full range of motion no pain with range of motion exercises he had been ambulating in room with walker when happened. Will monitor. 02/23/2022 Patient is evaluated today resting in bed. He has increased abdominal pain today and also increased abdominal distention. Bowels are hypoactive, minimal stool in ostomy bag. He feels more gassy today which mylicon will be added. Additionally he is more short of breath today and has crackles noted on exam. Chest xray will be ordered and patient will most likely need a dose of IV lasix, no prior history of heart failure noted in medical history. Possibly volume overload. Patient is NPO at this time per surgery recommendations. Hold IV fluids for now, continues on IV meropenem. Hgb stable today at 7.5. No white count. Creatinine increased slightly to 1.6 today. 1L of urine output noted in the last 24 hours. Remains afebrile, oxygen has been increased to 5L nasal cannula. 02/24/2022 Patient is evaluated today sitting up in chair, family at bedside. patient received a dose of IV lasix yesterday and appears to be breathing more comfortably today. He had NG tube reinserted last night which he had about 1.6 Liters of greenish output. He reports improvement in abdominal discomfort. Patient was monitored off IV fluids overnight. Creatinine did improve today down to 1.49. He diuresed about 1.1 L overnight. Echocardiogram has been ordered for further evaluation, proBNP was 1400 which is normal for patients age. Colostomy output remains same as yesterday. Patient has remained NPO with ice chips, will be started on TPN today. Review of Systems Constitutional: Denied any fatigue denied any fever. Cardio vascular: denied any chest pain, palpitations Gastrointestinal: Nausea vomiting overnight, reports decreased abdominal pain Pulmonary: Reports shortness of breath, cough Neurologic denied any new focal deficits All inpatient medications were reviewed and appropriate changes in these medications as dictated in the interval history and assessment and plan. PHYSICAL EXAMINATION: GENERAL: The patient is alert and oriented x3, not in any acute distress. Well developed, well nourished. HEENT: Pupils are round and equally reacting to light. EOMI. No scleral icterus. No conjunctival pallor. Normocephalic, atraumatic. No pharyngeal erythema. No thyromegaly. CARDIOVASCULAR: S1 and S2 present. No murmurs, rubs, or gallops. PULMONARY: Scattered crackles noted with congested cough. ABDOMEN: Soft, Tender, distended, hypoactive bowel sounds. No palpable organomegaly. Post surgical abdomen with colostomy bag left lower quadrant small amount of brown stool in bag. MUSCULOSKELETAL: No joint swelling or deformity. EXTREMITIES: No cyanosis, clubbing, Pitting ankle edema +1. NEUROLOGICAL: Gross neurological examination did not reveal any focal deficits. SKIN: No rashes. Assessment and Plan -Acute hypoxic respiratory failure secondary to possible acute CHF, diastolic secondary to continued IV fluids. IV lasix x 1 and monitored off fluids overnight. Breathing improved. -Acute small bowel obstruction with distal right lower quadrant transition zone noted. Bowel resection earlier in the year in [place] for colonic perforation with colostomy formation. 02/19/2022:extensive lysis of adhesions and small bowel resection and repair of incisional hernia by Dr. Munoz. NPO with ice chips NG tube reinserted on 02/23/22 secondary to nausea and vomiting. -Recent Acute right basal pneumonia in a patient with Recurrent pneumonia in a patient with underlying COPD. recent cultures have been positive sputum positive for stenitophomas maltophilia, MRSA, E. coli. And now on January 23 positive for pseudomonas aeruginosa. IV meropenem every 8. Pulmonary following. -COPD in a previous smoker: Better DuoNeb 4 times a day. Symbicort -Chronic hypoxic respiratory failure from COPD Home oxygen 2 L currently with acute on chronic hypoxic respiratory failure on 3L nasal cannula -Hyperuricemia Allopurinol 100 mg a day -Factor V Leyden mutation -Right upper lung nodule treated with the radiation Follow with pulmonary -Essential hypertension Lopressor 25 mg twice a day also on lisonorpil/hctz, blood pressure is no rmotensive currently -BPH Cardura 4 mg a day -Anxiety not otherwise specified Xanax when necessary -Chronic kidney disease likely nephrosclerosis stage III Follow renal function -Right renal mass being followed outpatient -History of DVT Plan NG tube reinserted 02/23/2022, started on TPN. Abdominal discomfort has somewhat improved with decompression. Continues NPO with Ice chips. Pulmonary following. Repeat labs in AM. The impression and plan of care has been dictated by Cathy Terry, Nurse Practitioner as directed. Dr. Marisol MD I have performed a history and physical examination and medical decision making of this patient, discussed the same with the dictator, and agree with the dictators assessment and plan as written, documented as a scribe. Based on total visit time, I have performed more than 50% of this visit. Objective - Vital Signs Vital signs: Vital Signs Temp 97.7 F 02/24/22 12:15 Pulse 84 02/24/22 16:20 Resp 20 02/24/22 12:15 BP 105/63 02/24/22 12:15 Pulse Ox 94 L 02/24/22 12:15 FiO2 36 02/21/22 00:31 Intake & Output 02/23/22 02/24/22 02/24/22 18:59 06:59 18:59 Intake Total 1100 1000 Output Total 2100 Balance 1100 -1100 Weight 75.296 kg Intake: Intake, IV Titration 1100 1000 Amount Meropenem 1 gm In Sodium 200 100 Chloride 0.9% 100 ml @ 33 .333 mls/hr IVPB Q8HR [facility] Rx#:[id number] Sodium Chloride 0.9% 1, 900 900 000 ml @ 75 mls/hr IV . [id number] Rx#:[id number] Output: Gastric Drainage 1000 Urine 1100 Other: Voiding Method Urinal Urinal - Labs CBC & Chem 7: 02/23/22 05:38 02/24/22 08:09 Labs: Abnormal Lab Results - Last 24 Hours (Table) 02/24/22 Range/Units 08:09 Chloride 111 H (98-107) mmol/L BUN 67 H (9-20) mg/dL Creatinine 1.49 H (0.66-1.25) mg/dL Assessment and Plan Time with Patient: Less than 30
[2022-02-25 00:38] LABS: Glucose,Whole Blood 153 mg/dL (70-110)
[2022-02-25] MEDS: HYDROmorphone 1 MG/ML 1 ML SYRINGE IVP PRN ×6 (02:59→21:24)
[2022-02-25 06:34] LABS: Glucose,Whole Blood 160 mg/dL (70-110)
[2022-02-25 06:59] LABS: ALT 13 U/L (4-49); AST 20 U/L (17-59); African American GFR (CKD) 52 (>60 ml/min/1.73 sqM); Albumin 2.4 g/dL (3.5-5.0); Albumin/Globulin Ratio 1.1; Alkaline Phosphatase 41 U/L (38-126); Anion Gap 0 mmol/L; Blood Urea Nitrogen 62 mg/dL (9-20); Calcium 8.5 mg/dL (8.4-10.2); Carbon Dioxide 35 mmol/L (22-30); Chloride 108 mmol/L (98-107); Globulin 2.2 g/dL; Glucose 161 mg/dL (74-99); Magnesium 2.1 mg/dL (1.6-2.3); Non-African American GFR(CKD) 45 (>60 ml/min/1.73 sqM); Phosphorus 3.3 mg/dL (2.5-4.5); Potassium 3.7 mmol/L (3.5-5.1); Sodium 143 mmol/L (137-145); Total Bilirubin 0.6 mg/dL (0.2-1.3); Total Protein 4.6 g/dL (6.3-8.2)
[2022-02-25 07:25] LABS: Ionized Calcium 5.3 mg/dL (4.5-5.3)
[2022-02-25] MEDS: METOPROLOL TARTRATE 25 MG TAB PO SCH ×2 (09:46→21:15)
[2022-02-25] MEDS: PANTOPRAZOLE 40 MG TABLET PO SCH (09:46)
[2022-02-25] MEDS: DOXAZOSIN 4 MG TAB PO SCH (09:46)
[2022-02-25] MEDS: allopurinoL 100 MG TAB PO SCH (09:46)
[2022-02-25] MEDS: ENOXAPARIN 40 MG/0.4 ML SYRINGE SQ SCH (09:46)
[2022-02-25] MEDS: MONTELUKAST 10 MG TAB PO SCH (09:46)
[2022-02-25] MEDS: LACTOBACILLUS ACIDOPH & BULGAR 1 EACH PACKET PO SCH (09:47)
[2022-02-25] MEDS: guaiFENesin 600 MG TABLET.ER PO SCH ×2 (09:47→21:15)
[2022-02-25] MEDS: LISINOPRIL-HCTZ 10-12.5 MG 1 EACH TAB PO SCH (09:47)
--- NOTE | 2022-02-25 11:39 | P.PN ---
Subjective Progress Note Date: 02/25/22 This is a 76-year-old male who is very well-known to me, hospitalized on multiple occasions for pneumonia with gram-negative most recent infection was related to Pseudomonas and the patient was taken off the patient antibiotics with IV meropenem. The patient has history of COPD, lung mass that was treated with SBR T and history of tracheal bronchomalacia. He has had multiple pneumonias and multiple hospitalizations in the past for the same. During the most recent hospitalization of jan 2022, the patient was treated for a recurrent Pseudomonas pneumonia Note that the patient has had previous infections with Pseudomonas, stenotrophomonas, and MRSA. The patient came into the ED with complaints of diffuse abdominal pain but more in the right lower abdomen. Patient reports that his abdominal pain started Thursday morning. The pain came on suddenly. He'd been nauseated and having acid reflux. She reports that his ostomy output had decreased he was still making a small amount of stool through his ostomy. But has stopped having any flatus over the last couple a days. Patient does have a prior history of diverticulitis with perforation requiring bowel resection with colostomy placement in March 2021 in [place]. He also has a past surgical history of a right inguinal hernia repair. Patient had a computed tomography scan abdomen and pelvis showing a small bowel obstruction. NG tube is being placed in the ER. History of a pulmonary lung nodule requiring radiation treatment. He does have factor V Leiden mutation. The patient is seen today 02/18/2022 in follow-up on the regular medical floor. He is currently sitting up at the bedside. Awake and alert in no acute distr ess. Nasogastric tube remains in place. Still with very minimal output of the ostomy. White count 15.0. Hemoglobin 10.0. Sodium 139. Potassium 4.8. BUN 38. Creatinine 1.7. He is continued on DuoNeb inhalations, Symbicort, Singulair. Heparin for DVT prophylaxis. Surgical services are on the case. He is currently on antibiotics in the form of meropenem. The patient is seen today 02/19/2022 in follow-up. He did undergo a exploratory laparotomy with lysis of adhesions with Dr. Maribel laguna. He tolerated the procedure well. His back in the regular medical floor. He is maintaining good O2 saturations in the 90s on 2 L/m per nasal cannula. Afebrile. Hemodynamically stable. White count 14.5. Hemoglobin 9.8. Sodium 139. Potassium 4.3. Chloride 108. Bicarb 22. BUN 39. Creatinine 1.46. Glucose 69. The patient is seen today 02/20/2022 in follow-up on the regular medical floor. He is postoperative day #1. He did undergo extensive lysis of adhesions, small bowel resection and repair of incisional hernia. He is awake and alert. he is maintaining O2 saturations in the low 90s on 4 L/m per nasal cannula. There is a small amount of stool in his ostomy. White count 9.9. Hemoglobin 9.7. Sodium 142. Potassium 4.7. Bicarb 21. BUN 56. Creatinine 1.88. Glucose 103. He is working with the incentive spirometer. He is continued on DuoNeb inhalations, Symbicort, Mucinex, Singulair. He is on antibiotics in the form of meropenem. 02/21/2022, Anival is doing well. He remains nothing by mouth. NG tube is in place and there are plans to remove the NG tube today. The colostomy site has without some minimal amount of output. Surgical once is striking and intact. He has a congested cough. he is bringing minimal amount of sputum. He remains on IV meropenem regarding recurrent pseudomonal pneumonias. Note that the patient underwent an extensive surgery which involved last of adhesions, small bowel resection and repair of an incisional hernia. He had complete bowel obstruction. He remains on Lovenox portably prophylaxis. Remains on bronchodilators. Incentive spirometer and flutter valve at the bedside. Labs from today are still pending. Creatinine from yesterday was 1.88 with a BUN of 56 and a sodium level of 142. Normocytic on is down to 9.9. He is awake and alert and sitting up on a chair is postop day #2. On 02/22/2022, the patient is sitting up on a chair. He has a congested cough. He remains on IV meropenem. Limited activity and his colostomy bag. Bowel sounds are still hypoactive. Surgical once is striking and intact. NG tube was removed. His taken no chills. No new complaints. White cell count is at 8.8 with a hemoglobin of 9.4. BUN is at 66 with a creatinine of 1.7 and sodium level is at 141. He is ambulating without a walker. On today's evaluation of 02/23/2022, the patient denies having any nausea and vomiting. GI surgeries on the case regarding the progress of the surgery. NG tube remains out. The bowel function has not returned yet. The patient is taking anxious. He is active. He is having total for pain control. Restasis as remains stable and the patient remains on IV meropenem. Remains on DuoNeb about treatments [id number]. Using incentive spirometer. Blood work from today shows that the dermis count is at 7.4 with a hemoglobin drop 9.5. BUN is at 61 with a creatinine 1.6 and a sodium level is at 144. The patient is seen today 02/24/2022 in follow-up on the regular medical floor. He is currently resting fairly comfortably in bed. He is awake and alert in no acute distress. He is having some ongoing issues with abdominal discomfort. He was having episodes of nausea and vomiting last night and a nasogastric tube was reinserted. He is maintaining good O2 saturation in the 90s on 4 L/m per nasal cannula. He is afebrile. Hemodynamically stable. Most recent chest x-ray still revealing a right lower lobe opacities. Sodium 145. Potassium 3.9. BUN 67. Creatinine 1.49. ProBNP 1400. The patient is continued on Symbicort, DuoNeb inhalations. Antibiotics in the form of meropenem. DVT prophylaxis with Lovenox. Normal saline at 50 MLS per hour. Evaluating this patient on 02/25/2022 on a regular medical floor. He appears fairly comfortable. NG tube remains in place to low intermittent suction. No more episodes of nausea and vomiting. Although, the abdomen is distillery manager to palpation. Abdominal CT from yesterday shows postoperative ileus, and small bilateral pleural effusions. Surgery is still on the case. His oxygen saturation is adequate on 4 L nasal cannula. Patient denies shortness of breath. He still has a congested productive cough. No new CBC today. BMP shows sodium 143, potassium 3.7, chloride 108, serum CO2 35, BUN 62, creatinine 1.47, glucose 161. He is receiving PPN at 80 ml/hr. He is receiving DuoNeb 4 times a day and Symbicort inhaler. DVT prophylaxis with Lovenox, and GI prophylaxis with Protonix. Objective - Vital Signs Vital signs: Vital Signs Temp 98.3 F 02/25/22 04:07 Pulse 91 02/25/22 08:00 Resp 18 02/25/22 08:00 BP 132/70 02/25/22 04:07 Pulse Ox 93 L 02/25/22 04:07 FiO2 36 02/21/22 00:31 Intake & Output 02/24/22 02/25/22 02/25/22 18:59 06:59 18:59 Intake Total 1300 Output Total 650 2200 Balance -650 -900 Weight 75.296 kg Intake: Intake, IV Titration 1300 Amount Fat Emulsion 20% 250 ml @ 240 20.833 mls/hr IV MoTh@ 1500 [facility] Rx#:[id number] Meropenem 1 gm In Sodium 100 Chloride 0.9% 100 ml @ 33 .333 mls/hr IVPB Q8HR [facility] Rx#:[id number] Mvi, Adult No.4 with Vit 960 K 10 ml Trace (Conc-1Ml/ Dose) 1 ml Sodium Acetate 30 meq Potassium Chloride 20 meq Calcium Gluconate 1 gm Magnesium Sulfate gm 0.5 gm In Amino Acids 5 %/Dextrose 20 % 1,000 ml @ 80 mls/hr IV .BY DURATION [facility] Rx#: [id number] Output: Gastric Drainage 650 1400 Urine 800 Other: Voiding Method Urinal Urinal Urinal - Exam GENERAL EXAM: Alert, 76-year-old male, on 4 L nasal cannula, fairly comfortable in no apparent distress. HEAD: Normocephalic. EYES: Normal reaction of pupils, equal size. NOSE: Nasogastric tube secured in place. Clear with pink turbinates. THROAT: No erythema or exudates. NECK: No masses, no JVD. CHEST: No chest wall deformity. LUNGS: Equal air entry with crackles in the right lung base CVS: S1 and S2 normal with no audible murmur, regular rhythm. ABDOMEN: Some tenderness on palpation. Surgical dressing dry and intact. Umbilical hernia reducible nontender. Ostomy bag on the side of abdomen SPINE: No scoliosis or deformity SKIN: No rashes CENTRAL NERVOUS SYSTEM: No focal deficits, tone is normal in all 4 extremities. EXTREMITIES: There is no peripheral edema. No clubbing, no cyanosis. Peripheral pulses are intact. - Labs CBC & Chem 7: 02/23/22 05:38 02/25/22 06:24 Labs: Abnormal Lab Results - Last 24 Hours (Table) 02/25/22 02/25/22 02/25/22 Range/Units 00:35 06:24 06:32 Chloride 108 H (98-107) mmol/L Carbon Dioxide 35 H (22-30) mmol/L BUN 62 H (9-20) mg/dL Creatinine 1.47 H (0.66-1.25) mg/dL Glucose 161 H (74-99) mg/dL POC Glucose (mg/dL) 153 H 160 H (70-110) mg/dL Total Protein 4.6 L (6.3-8.2) g/dL Albumin 2.4 L (3.5-5.0) g/dL Assessment and Plan Assessment: Small bowel obstruction with distal right lower quadrant transition point noted on computed tomography scan, Prior history of diverticulitis with perforation and bowel resection with colostomy placement. Status post exploratory laparotomy with lysis of adhesions, small bowel resection, repair of incisional hernia on 02/19/2022. Developed nausea and vomiting and required nasal tube reinsertion on 02/23/2022. Postoperative ileus. Continue gastric decompression with NG tube to low intermittent suction. Surgery is on the case. Umbilical hernia reducible. status post repair Gallbladder sludge noted on CT, no evidence of cholecystitis Recurrent pneumonia. The patient is having recurrent pneumonia/tracheobro nchitis with pseudomonas and other gram-negative bacteria. Completed course Meropenem. Patient remains afebrile. Right-sided pleural effusion with patchy consolidation of the right lower lobe chronic hypoxic respiratory failure currently on 4 L of O2 nasal cannula Chronic COPD maintain on Trelegy Ellipta on an outpatient basis Tracheobronchomalacia Recurrent respiratory tract infection with pseudomonas aeruginosa, E. coli, MRSA Right upper lobe pulmonary nodule avid on the previous PET scan and this was active on a PET scan and the patient was treated with SBRT Right renal mass being followed up on outpatient basis Factor 5 Leyden mutation Previous history of left lower extremity DVT Hypertension Chronic stage III kidney disease History of colonic perforation requiring colectomy and colostomy. Obstructive sleep apnea not using CPAP therapy Diverticulosis with previous history of diverticulitis Multiple hepatic cysts Plan: The patient was seen and evaluated Chest x-ray, medications and labs reviewed Continue gastric decompression with NG tube to low intermittent suction. Continued abdominal discomfort Surgery remains on the case Completed course of meropenem Increase his activity as tolerated We will continue to follow, prognosis is guarded. I have personally seen and examined the patient, performed the documentation and the assessment and plan as written. Number of minutes spent on the visit: [10 ]. Time with Patient: Less than 30
[2022-02-25] MEDS: SYMBICORT 80-4.5 MCG INHALER INHALATION SCH ×2 (12:15→19:23)
[2022-02-25] MEDS: IPRATROPIUM-ALBUTEROL 3 ML NEB INHALATION SCH ×4 (12:15→19:22)
[2022-02-25 12:31] LABS: Glucose,Whole Blood 140 mg/dL (70-110)
[2022-02-25] MEDS: SIMETHICONE 40 MG/0.6 ML DROPS 2,000 MG/30 ML BOTTLE PO SCH ×4 (12:41→21:36)
--- NOTE | 2022-02-25 12:47 | CDI ---
Documentation Clarification Form Date: 02/25/2022 12:34:12 PM From: Danuta SimpsonDEEPAK gomes, CCDS Admit Date: 02/17/2022 11:14:00 AM Patient Name: Anival Chavze Visit Number: [id number] Discharge Date: ATTENTION: The Clinical Documentation Specialists (CDI) and [facility] Coding Staff appreciate your assistance in clarifying documentation. Please respond to the clarification below the line at the bottom and electronically sign. The CDI & [facility] Coding staff will review the response and follow-up if needed. Please note: Queries are made part of the Legal Health Record. If you have any questions, please contact the author of this message via ITS. Dr. Que Munoz: Postoperative Ileus is documented in the 02/24 Surgeon's Progress note, the patient had a Bowel Resection on 02/19 for a SBO secondary to Internal Hernia from Adhesive Bands and Incisional Hernia. Additional clarification is requested regarding the relationship, if any, that exists between the diagnosis and the procedure. Patients Admitting Diagnosis 02/19: SBO secondary to Internal hernia from Adhesive Bands, Incisional Hernia and Extensive Lysis of Adhesions. Post-Operative Diagnosis 02/19: same. Procedure performed 02/19: Extensive Lysis of Adhesions, Small Bowel Resection, Repair of Incisional Hernia. History/Risk Factors per the 02/17 History & Physical: Diverticulitis with Perforation requiring a bowel resection with Colostomy in March 2021 in [place], history of Right Inguinal Hernia Repair. Recurrent Pneumonia, Factor V Leiden Mutation. Lung nodule status post radiation. Hepatic Cysts an CKD. Clinical Indicators: Presented to the ED on 02/17 via EMS with Abdominal pain, abdominal distention. Currently on antibiotics for Pseudomonas pneumonia. Admit with SBO. 02/17 CT Abdomen/Pelvis: Findings compatible with small bowel obstruction with distal right lower quadrant transition zone noted. There is also umbilical hernia which may contain a short segment of small bowel and/or fluid. Left lower quadrant ostomy. Multiple hepatic cysts. Right lower lobe bronchiectasis. 02/24 Ct Abdomen/Pelvis: Fluid and gas-filled dilated small bowel with postsurgical changes. Focal transition point is not well identified. Findings suggest postoperative ileus. Continued follow-up is recommended. Small bilateral pleural effusions with bilateral lower lobe tree-in-bud opacities concerning for infiltrates. Treatment status post Bowel Resection on 02/19: 02/21: NPO, Lovenox sq Daily. 02/23: NGT, IV Lasix 40 mg x1, IV Toradol 15 mg q6H 02/24: Dietitian Consult for Nutrition support, IV Na Chl 1,000 mls @ 50 ms/hr q20H, PICC line & TPN. What relationship, if any, exists between the diagnosis of Postoperative Ileus and the procedure: [ ] Postoperative Ileus is a complication of surgical procedure [ ] Postoperative Ileus is an expected outcome of the surgical procedure [ ] Postoperative Ileus is related to patients co-morbid condition(s), please specify: and is not a complication of the procedure [ ] Other please specify: [ xx] Unable to determine (Template Last Revised: May 2020) MTDD
--- NOTE | 2022-02-25 13:27 | P.PN ---
Subjective Progress Note Date: 02/25/22 CHIEF COMPLAINT: Small bowel obstruction HISTORY OF PRESENT ILLNESS: Patient is postop day #6 status post small bowel resection, extensive lysis of adhesions and repair of incisional hernia. Patient had computed tomography scan abdomen and pelvis showing fluid and gas- filled dilated small bowel with postsurgical changes. Focal transition point is not well identified. Findings suggest postoperative ileus. Patient has NG tube in place. He had 200 mL bilious output this morning either recording 1400 mL output through the day yesterday. Having ice chips. Ice chips but be contributing to the total output. Patient has had no bowel activity through his ostomy. He is on TPN for nutrition support. Pain is slightly decreased from yesterday. Pain is mostly in the right lower abdomen. Denies any nausea. Afebrile. Sodium 143 potassium 3.7 creatinine 1.47 mg 2.1 Patient seen and examined by Dr. mackay PHYSICAL EXAM: VITAL SIGNS: Reviewed. GENERAL: Well-developed in no acute distress. HEENT: No sclera icterus. Extraocular movements grossly intact. Moist buccal mucosa. Head is atraumatic, normocephalic. ABDOMEN: Soft. Distended. Tenderness right lower quadrant. Ostomy no new output. Incision with blood leakage. The area was cleaned. Now incision is clean dry and intact. NEUROLOGIC: Alert and oriented. Cranial nerves II through XII grossly intact. ASSESSMENT: 1. Small bowel obstruction secondary to internal hernia from adhesive band status post extensive lysis of adhesions, small bowel resection and repair of incisional hernia 2. Gallbladder sludge noted on CT. Patient denies any right upper quadrant pain 3. Prior history of diverticulitis with perforation and bowel resection with colostomy placement 4. Pneumonia 5. Postoperative ileus PLAN: -Continue NG tube for decompression -Keep patient nothing by mouth except for ice chips -Continue TPN for nutrition support -Continue pain management -Encouraged patient to increase activity level -Encouraged patient to use incentive spirometer -Continue GI prophylaxis Protonix and DVT prophylaxis Lovenox Physician Funeral Service Manager note has been reviewed by physician. Signing provider agrees with the documented findings, assessment, and plan of care. Objective - Vital Signs Vital signs: Vital Signs Temp 98.3 F 02/25/22 04:07 Pulse 96 02/25/22 12:34 Resp 18 02/25/22 08:00 BP 132/70 02/25/22 04:07 Pulse Ox 93 L 02/25/22 04:07 FiO2 36 02/21/22 00:31 Intake & Output 02/24/22 02/25/22 02/25/22 18:59 06:59 18:59 Intake Total 1300 Output Total 650 2200 Balance -650 -900 Weight 75.296 kg Intake: Intake, IV Titration 1300 Amount Fat Emulsion 20% 250 ml @ 240 20.833 mls/hr IV MoTh@ 1500 [facility] Rx#:[id number] Meropenem 1 gm In Sodium 100 Chloride 0.9% 100 ml @ 33 .333 mls/hr IVPB Q8HR [facility] Rx#:[id number] Mvi, Adult No.4 with Vit 960 K 10 ml Trace (Conc-1Ml/ Dose) 1 ml Sodium Acetate 30 meq Potassium Chloride 20 meq Calcium Gluconate 1 gm Magnesium Sulfate gm 0.5 gm In Amino Acids 5 %/Dextrose 20 % 1,000 ml @ 80 mls/hr IV .BY DURATION [facility] Rx#: [id number] Output: Gastric Drainage 650 1400 Urine 800 Other: Voiding Method Urinal Urinal Urinal - Labs CBC & Chem 7: 02/23/22 05:38 02/25/22 06:24 Labs: Abnormal Lab Results - Last 24 Hours (Table) 02/25/22 02/25/22 02/25/22 Range/Units 00:35 06:24 06:32 Chloride 108 H (98-107) mmol/L Carbon Dioxide 35 H (22-30) mmol/L BUN 62 H (9-20) mg/dL Creatinine 1.47 H (0.66-1.25) mg/dL Glucose 161 H (74-99) mg/dL POC Glucose (mg/dL) 153 H 160 H (70-110) mg/dL Total Protein 4.6 L (6.3-8.2) g/dL Albumin 2.4 L (3.5-5.0) g/dL 02/25/22 Range/Units 12:29 Chloride (98-107) mmol/L Carbon Dioxide (22-30) mmol/L BUN (9-20) mg/dL Creatinine (0.66-1.25) mg/dL Glucose (74-99) mg/dL POC Glucose (mg/dL) 140 H (70-110) mg/dL Total Protein (6.3-8.2) g/dL Albumin (3.5-5.0) g/dL
--- NOTE | 2022-02-25 15:39 | P.PN ---
Subjective Progress Note Date: 02/25/22 This is a 76 year old male who initially has been followed by Dr. Cervantes, picking up coverage today. He is monitored on medical floor, today he is postoperative day #3 for abdominal surgery secondary to bowel obstruction. Bowel sounds are noted on examination, there is small brown soft stool in ostomy bag. Stoma site in tact. midline dressing intact. He does report 10/10 abdominal pain has been receiving IV dialudid for this. Would benefit from adding oral pain medication. Reports some improvement with pain medication but not much. He is achieving 1500 on incentive spirometer. He continues on IV meropenem for history of recurrent pseudomonas pneumonia. White count today is 8.8, hgb 9.4, sodium 141, potassium 4.5, BUN 66, creatinine 1.57, glucose 97. He is currently NPO with ice chips. Being hydrated with normal saline at 75 mls per hour. He does report some left shoulder discomfort, has full range of motion no pain with range of motion exercises he had been ambulating in room with walker when happened. Will monitor. 02/23/2022 Patient is evaluated today resting in bed. He has increased abdominal pain today and also increased abdominal distention. Bowels are hypoactive, minimal stool in ostomy bag. He feels more gassy today which mylicon will be added. Additionally he is more short of breath today and has crackles noted on exam. Chest xray will be ordered and patient will most likely need a dose of IV lasix, no prior history of heart failure noted in medical history. Possibly volume overload. Patient is NPO at this time per surgery recommendations. Hold IV fluids for now, continues on IV meropenem. Hgb stable today at 7.5. No white count. Creatinine increased slightly to 1.6 today. 1L of urine output noted in the last 24 hours. Remains afebrile, oxygen has been increased to 5L nasal cannula. 02/24/2022 Patient is evaluated today sitting up in chair, family at bedside. patient received a dose of IV lasix yesterday and appears to be breathing more comfortably today. He had NG tube reinserted last night which he had about 1.6 Liters of greenish output. He reports improvement in abdominal discomfort. Patient was monitored off IV fluids overnight. Creatinine did improve today down to 1.49. He diuresed about 1.1 L overnight. Echocardiogram has been ordered for further evaluation, proBNP was 1400 which is normal for patients age. Colostomy output remains same as yesterday. Patient has remained NPO with ice chips, will be started on TPN today. 02/25/2022 Patient started on TPN currently infusing. He remains NPO with NG tube in place. Has 2.050 L gastric output overnight. 800 mls of urine output. Abdominal pelvis CT showing postoperative ileus. Labs today showing sodium 143, potassium 3.7, BUN 62, creatinine 1.47. He continues with congested cough. on 4L nasal cannula. proBNP improved continues with pitting lower extremity edema. Monitor off lasix. Review of Systems Constitutional: Denied any fatigue denied any fever. Cardio vascular: denied any chest pain, palpitations Gastrointestinal: Nausea vomiting overnight, reports decreased abdominal pain Pulmonary: Reports shortness of breath, cough Neurologic denied any new focal deficits All inpatient medications were reviewed and appropriate changes in these medications as dictated in the interval history and assessment and plan. PHYSICAL EXAMINATION: GENERAL: The patient is alert and oriented x3, not in any acute distress. Well developed, well nourished. HEENT: Pupils are round and equally reacting to light. EOMI. No scleral icterus. No conjunctival pallor. Normocephalic, atraumatic. No pharyngeal erythema. No thyromegaly. CARDIOVASCULAR: S1 and S2 present. No murmurs, rubs, or gallops. PULMONARY: Scattered crackles noted with congested cough. ABDOMEN: Soft, Tender, distended, hypoactive bowel sounds. No palpable organomegaly. Post surgical abdomen with colostomy bag left lower quadrant small amount of brown stool in bag. NG tube in place. MUSCULOSKELETAL: No joint swelling or deformity. EXTREMITIES: No cyanosis, clubbing, Pitting ankle edema +1. NEUROLOGICAL: Gross neurological examination did not reveal any focal deficits. SKIN: No rashes. Assessment and Plan -Acute hypoxic respiratory failure secondary to possible acute CHF, likely diastolic. Patient refused echocardiogram. Received a dose of lasix X1. Has had large amount of gastric output from NG Tube recommend to monitor off lasix. -Acute small bowel obstruction with distal right lower quadrant transition zone noted. Bowel resection earlier in the year in [place] for colonic perforation with colostomy formation. 02/19/2022:extensive lysis of adhesions and small bowel resection and repair of incisional hernia by Dr. Munoz. NPO with ice chips NG tube reinserted on 02/23/22 secondary to nausea and vomiting. Possible postoperative ileus per abdominal CT. -Recent Acute right basal pneumonia in a patient with Recurrent pneumonia in a patient with underlying COPD. recent cultures have been positive sputum positive for stenitophomas maltophilia, MRSA, E. coli. And now on January 23 positive for pseudomonas aeruginosa. IV meropenem every 8 - discontinued, finished therapy. Pulmonary following. -COPD in a previous smoker: Better DuoNeb 4 times a day. Symbicort -Chronic hypoxic respiratory failure from COPD Home oxygen 2 L currently with acute on chronic hypoxic respiratory failure on 3L nasal cannula -Hyperuricemia Allopurinol 100 mg a day -Factor V Leyden mutation -Right upper lung nodule treated with the radiation Follow with pulmonary -Essential hypertension Lopressor 25 mg twice a day also on lisonorpil/hctz, blood pressure is normotensive currently -BPH Cardura 4 mg a day -Anxiety not otherwise specified Xanax when necessary -Chronic kidney disease likely nephrosclerosis stage III Follow renal function -Right renal mass being followed outpatient -History of DVT Plan NG tube reinserted 02/23/2022, started on TPN. Abdominal discomfort has somewhat improved with decompression. Continues NPO with Ice chips. Pulmonary following. Repeat labs in AM. The impression and plan of care has been dictated by Cathy Terry, Nurse Practitioner as directed. Dr. Marisol MD I have performed a history and physical examination and medical decision making of this patient, discussed the same with the dictator, and agree with the dictators assessment and plan as written, documented as a scribe. Based on total visit time, I have performed more than 50% of this visit. Objective - Vital Signs Vital signs: Vital Signs Temp 98.3 F 02/25/22 04:07 Pulse 96 02/25/22 12:34 Resp 18 02/25/22 08:00 BP 132/70 02/25/22 04:07 Pulse Ox 93 L 02/25/22 04:07 FiO2 36 02/21/22 00:31 Intake & Output 02/24/22 02/25/22 02/25/22 18:59 06:59 18:59 Intake Total 1300 Output Total 650 2200 Balance -650 -900 Weight 75.296 kg Intake: Intake, IV Titration 1300 Amount Fat Emulsion 20% 250 ml @ 240 20.833 mls/hr IV MoTh@ 1500 [facility] Rx#:[id number] Meropenem 1 gm In Sodium 100 Chloride 0.9% 100 ml @ 33 .333 mls/hr IVPB Q8HR [facility] Rx#:[id number] Mvi, Adult No.4 with Vit 960 K 10 ml Trace (Conc-1Ml/ Dose) 1 ml Sodium Acetate 30 meq Potassium Chloride 20 meq Calcium Gluconate 1 gm Magnesium Sulfate gm 0.5 gm In Amino Acids 5 %/Dextrose 20 % 1,000 ml @ 80 mls/hr IV .BY DURATION [facility] Rx#: [id number] Output: Gastric Drainage 650 1400 Urine 800 Other: Voiding Method Urinal Urinal Urinal - Labs CBC & Chem 7: 02/23/22 05:38 02/25/22 06:24 Labs: Abnormal Lab Results - Last 24 Hours (Table) 02/25/22 02/25/22 02/25/22 Range/Units 00:35 06:24 06:32 Chloride 108 H (98-107) mmol/L Carbon Dioxide 35 H (22-30) mmol/L BUN 62 H (9-20) mg/dL Creatinine 1.47 H (0.66-1.25) mg/dL Glucose 161 H (74-99) mg/dL POC Glucose (mg/dL) 153 H 160 H (70-110) mg/dL Total Protein 4.6 L (6.3-8.2) g/dL Albumin 2.4 L (3.5-5.0) g/dL 02/25/22 Range/Units 12:29 Chloride (98-107) mmol/L Carbon Dioxide (22-30) mmol/L BUN (9-20) mg/dL Creatinine (0.66-1.25) mg/dL Glucose (74-99) mg/dL POC Glucose (mg/dL) 140 H (70-110) mg/dL Total Protein (6.3-8.2) g/dL Albumin (3.5-5.0) g/dL Assessment and Plan Time with Patient: Less than 30
[2022-02-25] MEDS: 1: MVI, ADULT NO.4 WITH VIT K 10 ML, TRACE (CONC-1ML/DOSE) 1 ML, SODIUM ACETATE 30 MEQ, IV SCH ×14 (17:36→17:39)
[2022-02-25 18:07] LABS: Glucose,Whole Blood 162 mg/dL (70-110)
[2022-02-25] MEDS: MAGNESIUM OXIDE 400 MG TAB PO SCH (21:15)
[2022-02-25] MEDS: ALPRAZolam 0.5 MG TAB PO PRN (21:22)
[2022-02-26 02:12] LABS: Glucose,Whole Blood 159 mg/dL (70-110)
[2022-02-26] MEDS: HYDROmorphone 1 MG/ML 1 ML SYRINGE IVP PRN (05:40)
[2022-02-26 06:28] LABS: Glucose,Whole Blood 180 mg/dL (70-110)
[2022-02-26 07:18] LABS: ALT 11 U/L (4-49); AST 19 U/L (17-59); African American GFR (CKD) 66 (>60 ml/min/1.73 sqM); Albumin 2.2 g/dL (3.5-5.0); Alkaline Phosphatase 41 U/L (38-126); Anion Gap 3 mmol/L; Blood Urea Nitrogen 59 mg/dL (9-20); Calcium 8.6 mg/dL (8.4-10.2); Carbon Dioxide 31 mmol/L (22-30); Chloride 108 mmol/L (98-107); Globulin 2.3 g/dL; Glucose 182 mg/dL (74-99); Non-African American GFR(CKD) 57 (>60 ml/min/1.73 sqM); Phosphorus 2.4 mg/dL (2.5-4.5); Potassium 3.6 mmol/L (3.5-5.1); Sodium 142 mmol/L (137-145); Total Bilirubin 0.5 mg/dL (0.2-1.3); Total Protein 4.5 g/dL (6.3-8.2)
[2022-02-26] MEDS: 1: MVI, ADULT NO.4 WITH VIT K 10 ML, TRACE (CONC-1ML/DOSE) 1 ML, SODIUM ACETATE 30 MEQ, IV SCH ×14 (07:39→21:58)
[2022-02-26] MEDS: SYMBICORT 80-4.5 MCG INHALER INHALATION SCH ×2 (07:49→20:12)
[2022-02-26] MEDS: IPRATROPIUM-ALBUTEROL 3 ML NEB INHALATION SCH ×4 (07:49→20:12)
[2022-02-26 08:05] LABS: Glucose,Whole Blood 156 mg/dL (70-110)
[2022-02-26 09:34] LABS: HCT 28.8 % (39.6-50.0); HGB 8.8 g/dL (13.0-17.0); MCH 30.2 pg (27.0-32.0); MCHC 30.6 g/dL (32.0-37.0); Mean Platelet Volume 12.1 fL (9.5-12.2); NRBC Per 100 WBC 0 /100 WBCS (0.0-0.0); Platelet Count 257 X 10*3/uL (140-440); RBC 2.91 X 10*6/uL (4.40-5.60); RDW 15.1 % (11.5-14.5); WBC 9.06 X 10*3/uL (4.50-10.00)
[2022-02-26] MEDS: LACTOBACILLUS ACIDOPH & BULGAR 1 EACH PACKET PO SCH (09:45)
[2022-02-26] MEDS: MONTELUKAST 10 MG TAB PO SCH (09:46)
[2022-02-26] MEDS: LISINOPRIL-HCTZ 10-12.5 MG 1 EACH TAB PO SCH (09:47)
[2022-02-26] MEDS: DOXAZOSIN 4 MG TAB PO SCH (09:47)
[2022-02-26] MEDS: allopurinoL 100 MG TAB PO SCH (09:47)
[2022-02-26] MEDS: METOPROLOL TARTRATE 25 MG TAB PO SCH ×2 (09:48→21:59)
[2022-02-26] MEDS: ENOXAPARIN 40 MG/0.4 ML SYRINGE SQ SCH (09:48)
[2022-02-26] MEDS: SIMETHICONE 40 MG/0.6 ML DROPS 2,000 MG/30 ML BOTTLE PO SCH ×4 (09:48→21:59)
[2022-02-26] MEDS: PANTOPRAZOLE 40 MG TABLET PO SCH (09:48)
[2022-02-26] MEDS: guaiFENesin 600 MG TABLET.ER PO SCH ×2 (09:53→21:59)
[2022-02-26] MEDS: POTASSIUM CHLORIDE 10 MEQ in WATER FOR INJECTION 1 100ML.BAG IVPB SCH ×2 (09:57→11:50)
[2022-02-26 12:19] LABS: Glucose,Whole Blood 161 mg/dL (70-110)
--- NOTE | 2022-02-26 12:58 | P.PN ---
Subjective Progress Note Date: 02/26/22 CHIEF COMPLAINT: Small bowel obstruction HISTORY OF PRESENT ILLNESS: Patient is postop day #7 status post small bowel resection, extensive lysis of adhesions and repair of incisional hernia. Patient with postoperative ileus. He is finally having some air in a small amount of stool noted in his ostomy bag. He is on TPN for nutrition support. NG tube output had been 800 tonight and 500 at this morning however patient is drinking the ice chip water and eating a lot of ice chips which is likely contr ibuting to the NG tube output. Patient noted to have a cough and upper airway congestion. Afebrile. WBC is 9.06 Hgb 8.8 platelets 257 then symptoms 142 potassium 3.6 creatinine 1.21 magnesium 2 phosphorus 2.4 Patient seen and examined by Dr. mackay PHYSICAL EXAM: VITAL SIGNS: Reviewed. GENERAL: Well-developed in no acute distress. HEENT: No sclera icterus. Extraocular movements grossly intact. Moist buccal mucosa. Head is atraumatic, normocephalic. ABDOMEN: Soft. mildly distended. Tenderness right lower quadrant. Ostomy with air and small amount of soft stool. Mild erythema noted at the lower mid incision site. no drainage. NEUROLOGIC: Alert and oriented. Cranial nerves II through XII grossly intact. ASSESSMENT: 1. Small bowel obstruction secondary to internal hernia from adhesive band status post extensive lysis of adhesions, small bowel resection and repair of incisional hernia 2. Gallbladder sludge noted on CT. Patient denies any right upper quadrant pain 3. Prior history of diverticulitis with perforation and bowel resection with colostomy placement 4. Pneumonia 5. Postoperative ileus PLAN: -Discontinue NG tube -Start clear liquid diet -Continue TPN for nutrition support -Continue pain management -Encouraged patient to increase activity level -Encouraged patient to use incentive spirometer -Continue GI prophylaxis Protonix and DVT prophylaxis Lovenox Physician Cotton Tipper note has been reviewed by physician. Signing provider agrees with the documented findings, assessment, and plan of care. Objective - Vital Signs Vital signs: Vital Signs Temp 98.6 F 02/26/22 05:00 Pulse 92 02/26/22 08:02 Resp 24 02/26/22 05:00 BP 128/71 02/26/22 05:00 Pulse Ox 94 L 02/26/22 05:00 FiO2 36 02/21/22 00:31 Intake & Output 02/25/22 02/26/22 02/26/22 18:59 06:59 18:59 Intake Total 600 1036 Output Total 800 1200 200 Balance -200 -164 -200 Intake: Intake, IV Titration 600 1036 Amount Sodium Acetate 30 meq 600 1036 Potassium Chloride 20 meq Calcium Gluconate 1 gm Magnesium Sulfate gm 0.5 gm In Amino Acids 5 %/ Dextrose 20 % 1,000 ml @ 80 mls/hr IV .BY DURATION [facility] Rx#:[id number] Output: Gastric Drainage 800 500 200 Urine 700 Other: Voiding Method Urinal Urinal Urinal - Labs CBC & Chem 7: 02/26/22 06:19 02/26/22 06:19 Labs: Abnormal Lab Results - Last 24 Hours (Table) 02/25/22 02/25/22 02/26/22 Range/Units 12:29 18:05 02:09 RBC (4.40-5.60) X 10*6/uL Hgb (13.0-17.0) g/dL Hct (39.6-50.0) % MCV (80.0-97.0) fL MCHC (32.0-37.0) g/dL RDW (11.5-14.5) % Chloride (98-107) mmol/L Carbon Dioxide (22-30) mmol/L BUN (9-20) mg/dL Glucose (74-99) mg/dL POC Glucose (mg/dL) 140 H 162 H 159 H (70-110) mg/dL Phosphorus (2.5-4.5) mg/dL Total Protein (6.3-8.2) g/dL Albumin (3.5-5.0) g/dL 02/26/22 02/26/22 02/26/22 Range/Units 06:19 06:19 06:27 RBC 2.91 L (4.40-5.60) X 10*6/uL Hgb 8.8 L (13.0-17.0) g/dL Hct 28.8 L (39.6-50.0) % MCV 99.0 H (80.0-97.0) fL MCHC 30.6 L (32.0-37.0) g/dL RDW 15.1 H (11.5-14.5) % Chloride 108 H (98-107) mmol/L Carbon Dioxide 31 H (22-30) mmol/L BUN 59 H (9-20) mg/dL Glucose 182 H (74-99) mg/dL POC Glucose (mg/dL) 180 H (70-110) mg/dL Phosphorus 2.4 L (2.5-4.5) mg/dL Total Protein 4.5 L (6.3-8.2) g/dL Albumin 2.2 L (3.5-5.0) g/dL 02/26/22 Range/Units 08:03 RBC (4.40-5.60) X 10*6/uL Hgb (13.0-17.0) g/dL Hct (39.6-50.0) % MCV (80.0-97.0) fL MCHC (32.0-37.0) g/dL RDW (11.5-14.5) % Chloride (98-107) mmol/L Carbon Dioxide (22-30) mmol/L BUN (9-20) mg/dL Glucose (74-99) mg/dL POC Glucose (mg/dL) 156 H (70-110) mg/dL Phosphorus (2.5-4.5) mg/dL Total Protein (6.3-8.2) g/dL Albumin (3.5-5.0) g/dL
--- NOTE | 2022-02-26 14:28 | P.PN ---
Subjective Progress Note Date: 02/26/22 Principal diagnosis: Small bowel obstruction, postoperative ileus. This is a 76-year-old male who is very well-known to me, hospitalized on multiple occasions for pneumonia with gram-negative most recent infection was related to Pseudomonas and the patient was taken off the patient antibiotics with IV meropenem. The patient has history of COPD, lung mass that was treated with SBR T and history of tracheal bronchomalacia. He has had multiple pneumonias and multiple hospitalizations in the past for the same. During the most recent hospitalization of jan 2022, the patient was treated for a recurrent Pseudomonas pneumonia Note that the patient has had previous infections with Pseudomonas, stenotrophomonas, and MRSA. The patient came into the ED with complaints of diffuse abdominal pain but more in the right lower abdomen. Patient reports that his abdominal pain started Thursday morning. The pain came on suddenly. He'd been nauseated and having acid reflux. She reports that his ostomy output had decreased he was still making a small amount of stool through his ostomy. But has stopped having any flatus over the last couple a days. Patient does have a prior history of diverticulitis with perforation requiring bowel resection with colostomy placement in March 2021 in [place]. He also has a past surgical history of a right inguinal hernia repair. Patient had a computed tomography scan abdomen and pelvis showing a small bowel obstruction. NG tube is being placed in the ER. History of a pulmonary lung nodule requiring radiation treatment. He does have factor V Leiden mutation. The patient is seen today 02/18/2022 in follow-up on the regular medical floor. He is currently sitting up at the bedside. Awake and alert in no acute distress. Nasogastric tube remains in place. Still with very minimal output of the ostomy. White count 15.0. Hemoglobin 10.0. Sodium 139. Potassium 4.8. BUN 38. Creatinine 1.7. He is continued on DuoNeb inhalations, Symbicort, Singulair. Heparin for DVT prophylaxis. Surgical services are on the case. He is currently on antibiotics in the form of meropenem. The patient is seen today 02/19/2022 in follow-up. He did undergo a exploratory laparotomy with lysis of adhesions with Dr. Maribel laguna. He tolerated the procedure well. His back in the regular medical floor. He is maintaining good O2 saturations in the 90s on 2 L/m per nasal cannula. Afebrile. Hemodynamically stable. White count 14.5. Hemoglobin 9.8. Sodium 139. Potassium 4.3. Chloride 108. Bicarb 22. BUN 39. Creatinine 1.46. Glucose 69. The patient is seen today 02/20/2022 in follow-up on the regular medical floor. He is postoperative day #1. He did undergo extensive lysis of adhesions, small bowel resection and repair of incisional hernia. He is awake and alert. he is maintaining O2 saturations in the low 90s on 4 L/m per nasal cannula. There is a small amount of stool in his ostomy. White count 9.9. Hemoglobin 9.7. Sodium 142. Potassium 4.7. Bicarb 21. BUN 56. Creatinine 1.88. Glucose 103. He is working with the incentive spirometer. He is continued on DuoNeb inhalations, Symbicort, Mucinex, Singulair. He is on antibiotics in the form of meropenem. 02/21/2022, Anival is doing well. He remains nothing by mouth. NG tube is in place and there are plans to remove the NG tube today. The colostomy site has without some minimal amount of output. Surgical once is striking and intact. He has a congested cough. he is bringing minimal amount of sputum. He remains on IV meropenem regarding recurrent pseudomonal pneumonias. Note that the patient underwent an extensive surgery which involved last of adhesions, small bowel resection and repair of an incisional hernia. He had complete bowel obstruction. He remains on Lovenox portably prophylaxis. Remains on bronchodilators. Incentive spirometer and flutter valve at the bedside. Labs from today are still pending. Creatinine from yesterday was 1.88 with a BUN of 56 and a sodium level of 142. Normocytic on is down to 9.9. He is awake and alert and sitting up on a chair is postop day #2. On 02/22/2022, the patient is sitting up on a chair. He has a congested cough. He remains on IV meropenem. Limited activity and his colostomy bag. Bowel sounds are still hypoactive. Surgical once is striking and intact. NG tube was removed. His taken no chills. No new complaints. White cell count is at 8.8 with a hemoglobin of 9.4. BUN is at 66 with a creatinine of 1.7 and sodium level is at 141. He is ambulating without a walker. On today's evaluation of 02/23/2022, the patient denies having any nausea and vomiting. GI surgeries on the case regarding the progress of the surgery. NG tube remains out. The bowel function has not returned yet. The patient is taking anxious. He is active. He is having total for pain control. Restasis as remains stable and the patient remains on IV meropenem. Remains on DuoNeb about treatments [id number]. Using incentive spirometer. Blood work from today shows that the dermis count is at 7.4 with a hemoglobin drop 9.5. BUN is at 61 with a creatinine 1.6 and a sodium level is at 144. The patient is seen today 02/24/2022 in follow-up on the regular medical floor. He is currently resting fairly comfortably in bed. He is awake and alert in no acute distress. He is having some ongoing issues with abdominal discomfort. He was having episodes of nausea and vomiting last night and a nasogastric tube was reinserted. He is maintaining good O2 saturation in the 90s on 4 L/m per nasal cannula. He is afebrile. Hemodynamically stable. Most recent chest x-ray still revealing a right lower lobe opacities. Sodium 145. Potassium 3.9. BUN 67. Creatinine 1.49. ProBNP 1400. The patient is continued on Symbicort, DuoNeb inhalations. Antibiotics in the form of meropenem. DVT prophylaxis with Lovenox. Normal saline at 50 MLS per hour. Evaluating this patient on 02/25/2022 on a regular medical floor. He appears fairly comfortable. NG tube remains in place to low intermittent suction. No more episodes of nausea and vomiting. Although, the abdomen is press and blow machine tender to palpation. Abdominal CT from yesterday shows postoperative ileus, and small bila teral pleural effusions. Surgery is still on the case. His oxygen saturation is adequate on 4 L nasal cannula. Patient denies shortness of breath. He still has a congested productive cough. No new CBC today. BMP shows sodium 143, potassium 3.7, chloride 108, serum CO2 35, BUN 62, creatinine 1.47, glucose 161. He is receiving PPN at 80 ml/hr. He is receiving DuoNeb 4 times a day and Symbicort inhaler. DVT prophylaxis with Lovenox, and GI prophylaxis with Protonix. Evaluating this patient today on 02/26/2022, on regular medical floor. His abdominal tenderness has slightly improved over the last 24 hours. His NG tube remains to low intermittent suction, and he denies any nausea or vomiting . Receiving TPN at 80 ML's per hour through left upper arm PICC. Patient reports small amount of air an ostomy pouch. Surgery continues to follow this patient daily. From respiratory standpoint, patient remains on 4 L nasal cannula. He denies any respiratory distress. He does have a congested, nonproductive cough and is receiving Mucinex. Incentive spirometer is at bedside. He remains afebrile. CBC count from today reveals no leukocytosis. WBC count 9, in Damar 8.8, hematocrit 29, platelet 250,000. BMP from today is stable sodium 142, potassium 3.6, chloride 108, serum CO2 31, BUN 59, serum creatinine 1.21, glucose 180. Maintained empirically on meropenem. Continues receiving DuoNeb nebulization and Symbicort inhaler. Receiving Lovenox for DVT prophylaxis and Protonix for GI prophylaxis. Overall condition is slightly improved from yesterday. Objective - Vital Signs Vital signs: Vital Signs Temp 97.9 F 02/26/22 13:00 Pulse 99 02/26/22 13:00 Resp 16 02/26/22 13:00 BP 115/68 02/26/22 13:00 Pulse Ox 95 02/26/22 13:00 FiO2 36 02/21/22 00:31 Intake & Output 02/25/22 02/26/22 02/26/22 18:59 06:59 18:59 Intake Total 600 1036 Output Total 800 1200 200 Balance -200 -164 -200 Weight 75.296 kg Intake: Intake, IV Titration 600 1036 Amount Sodium Acetate 30 meq 600 1036 Potassium Chloride 20 meq Calcium Gluconate 1 gm Magnesium Sulfate gm 0.5 gm In Amino Acids 5 %/ Dextrose 20 % 1,000 ml @ 80 mls/hr IV .BY DURATION [facility] Rx#:[id number] Output: Gastric Drainage 800 500 200 Urine 700 Other: Voiding Method Urinal Urinal Urinal - Exam GENERAL EXAM: Alert, 76-year-old male, on 4 L nasal cannula, fairly comfortable in no apparent distress. HEAD: Normocephalic. EYES: Normal reaction of pupils, equal size. NOSE: Nasogastric tube secured in place. Clear with pink turbinates. THROAT: No erythema or exudates. NECK: No masses, no JVD. CHEST: No chest wall deformity. LUNGS: Equal air entry with crackles in the right lung base. Congested cough. CVS: S1 and S2 normal with no audible murmur, regular rhythm. ABDOMEN: Improved tenderness on palpation. Surgical dressing dry and intact. Umbilical hernia reducible nontender. Ostomy bag on the side of abdomen with some air in the pouch. SPINE: No scoliosis or deformity SKIN: No rashes CENTRAL NERVOUS SYSTEM: No focal deficits, tone is normal in all 4 extremities. EXTREMITIES: There is no peripheral edema. No clubbing, no cyanosis. Peripheral pulses are intact. - Labs CBC & Chem 7: 02/26/22 06:19 02/26/22 06:19 Labs: Abnormal Lab Results - Last 24 Hours (Table) 02/25/22 02/26/22 02/26/22 Range/Units 18:05 02:09 06:19 RBC (4.40-5.60) X 10*6/uL Hgb (13.0-17.0) g/dL Hct (39.6-50.0) % MCV (80.0-97.0) fL MCHC (32.0-37.0) g/dL RDW (11.5-14.5) % Chloride 108 H (98-107) mmol/L Carbon Dioxide 31 H (22-30) mmol/L BUN 59 H (9-20) mg/dL Glucose 182 H (74-99) mg/dL POC Glucose (mg/dL) 162 H 159 H (70-110) mg/dL Phosphorus 2.4 L (2.5-4.5) mg/dL Total Protein 4.5 L (6.3-8.2) g/dL Albumin 2.2 L (3.5-5.0) g/dL 02/26/22 02/26/22 02/26/22 Range/Units 06:19 06:27 08:03 RBC 2.91 L (4.40-5.60) X 10*6/uL Hgb 8.8 L (13.0-17.0) g/dL Hct 28.8 L (39.6-50.0) % MCV 99.0 H (80.0-97.0) fL MCHC 30.6 L (32.0-37.0) g/dL RDW 15.1 H (11.5-14.5) % Chloride (98-107) mmol/L Carbon Dioxide (22-30) mmol/L BUN (9-20) mg/dL Glucose (74-99) mg/dL POC Glucose (mg/dL) 180 H 156 H (70-110) mg/dL Phosphorus (2.5-4.5) mg/dL Total Protein (6.3-8.2) g/dL Albumin (3.5-5.0) g/dL 02/26/22 Range/Units 12:13 RBC (4.40-5.60) X 10*6/uL Hgb (13.0-17.0) g/dL Hct (39.6-50.0) % MCV (80.0-97.0) fL MCHC (32.0-37.0) g/dL RDW (11.5-14.5) % Chloride (98-107) mmol/L Carbon Dioxide (22-30) mmol/L BUN (9-20) mg/dL Glucose (74-99) mg/dL POC Glucose (mg/dL) 161 H (70-110) mg/dL Phosphorus (2.5-4.5) mg/dL Total Protein (6.3-8.2) g/dL Albumin (3.5-5.0) g/dL Assessment and Plan Assessment: Small bowel obstruction with distal right lower quadrant transition point noted on computed tomography scan, Prior history of diverticulitis with perforation and bowel resection with colostomy placement. Status post exploratory laparotomy with lysis of adhesions, small bowel resection, repair of incisional hernia on 02/19/2022. Developed nausea and vomiting and required nasal tube reinsertion on 02/23/2022. Postoperative ileus. Continue gastric decompression with NG tube to low intermittent suction. Surgery is on the case. Umbilical hernia reducible. status post repair Gallbladder sludge noted on CT, no evidence of cholecystitis Recurrent pneumonia. The patient is having recurrent pneumonia /tracheobronchitis with pseudomonas and other gram-negative bacteria. Completed course Meropenem. Patient remains afebrile. Right-sided pleural effusion with patchy consolidation of the right lower lobe chronic hypoxic respiratory failure currently on 4 L of O2 nasal cannula Chronic COPD maintain on Trelegy Ellipta on an outpatient basis Tracheobronchomalacia Recurrent respiratory tract infection with pseudomonas aeruginosa, E. coli, MRSA Right upper lobe pulmonary nodule avid on the previous PET scan and this was active on a PET scan and the patient was treated with SBRT Right renal mass being followed up on outpatient basis Factor 5 Leyden mutation Previous history of left lower extremity DVT Hypertension Chronic stage III kidney disease History of colonic perforation requiring colectomy and colostomy. Obstructive sleep apnea not using CPAP therapy Diverticulosis with previous history of diverticulitis Multiple hepatic cystsis Plan: The patient was seen and evaluated Chest x-ray, medications and labs reviewed Continue gastric decompression with NG tube to low intermittent suction. Slightly improved abdominal tenderness Surgery remains on the case Continue course of meropenem Mucinex for congestion, Continue DuoNeb and Symbicort inhaler. Increase his activity as tolerated We will continue to follow I have personally seen and examined the patient, performed the documentation and the assessment and plan as written. Number of minutes spent on the visit: [10 ]. Time with Patient: Less than 30
[2022-02-26] MEDS: MEROPENEM 500 MG in SODIUM CHLORIDE 0.9% 100 ML IVPB SCH (16:38)
--- NOTE | 2022-02-26 17:31 | P.PN ---
Subjective Progress Note Date: 02/26/22 This is a 76 year old male who initially has been followed by Dr. Cervantes, picking up coverage today. He is monitored on medical floor, today he is postoperative day #3 for abdominal surgery secondary to bowel obstruction. Bowel sounds are noted on examination, there is small brown soft stool in ostomy bag. Stoma site in tact. midline dressing intact. He does report 10/10 abdominal pain has been receiving IV dialudid for this. Would benefit from adding oral pain medication. Reports some improvement with pain medication but not much. He is achieving 1500 on incentive spirometer. He continues on IV meropenem for history of recurrent pseudomonas pneumonia. White count today is 8.8, hgb 9.4, sodium 141, potassium 4.5, BUN 66, creatinine 1.57, glucose 97. He is currently NPO with ice chips. Being hydrated with normal saline at 75 mls per hour. He does report some left shoulder discomfort, has full range of motion no pain with range of motion exercises he had been ambulating in room with walker when happened. Will monitor. 02/23/2022 Patient is evaluated today resting in bed. He has increased abdominal pain today and also increased abdominal distention. Bowels are hypoactive, minimal stool in ostomy bag. He feels more gassy today which mylicon will be added. Additionally he is more short of breath today and has crackles noted on exam. Chest xray will be ordered and patient will most likely need a dose of IV lasix, no prior history of heart failure noted in medical history. Possibly volume overload. Patient is NPO at this time per surgery recommendations. Hold IV fluids for now, continues on IV meropenem. Hgb stable today at 7.5. No white count. Creatinine increased slightly to 1.6 today. 1L of urine output noted in the last 24 hours. Remains afebrile, oxygen has been increased to 5L nasal cannula. 02/24/2022 Patient is evaluated today sitting up in chair, family at bedside. patient received a dose of IV lasix yesterday and appears to be breathing more comfortably today. He had NG tube reinserted last night which he had about 1.6 Liters of greenish output. He reports improvement in abdominal discomfort. Patient was monitored off IV fluids overnight. Creatinine did improve today down to 1.49. He diuresed about 1.1 L overnight. Echocardiogram has been ordered for further evaluation, proBNP was 1400 which is normal for patients age. Colostomy output remains same as yesterday. Patient has remained NPO with ice chips, will be started on TPN today. 02/25/2022 Patient started on TPN currently infusing. He remains NPO with NG tube in place. Has 2.050 L gastric output overnight. 800 mls of urine output. Abdominal pelvis CT showing postoperative ileus. Labs today showing sodium 143, potassium 3.7, BUN 62, creatinine 1.47. He continues with congested cough. on 4L nasal cannula. proBNP improved continues with pitting lower extremity edema. Monitor off lasix. 02/26/2022 Patient evaluated today resting in bed. He has been up to the chair for meals. He has NG tube in place with about 1.5 L out in the last 24 hours. He has been started on TPN which is running at 80 mls /hr. His creatinine has improved to 1.21. Hemoglobin today is 8.8. Lisinopril has been stopped, blood pressure on the lower side. He does report some improvement in abdominal pain and will recommend to back off the dilaudid a bit. He does have increased bowel sounds today. Discussed with pulmonary who have added back on meropenem. Review of Systems Constitutional: Denied any fatigue denied any fever. Cardio vascular: denied any chest pain, palpitations Gastrointestinal: Nausea vomiting overnight, reports decreased abdominal pain Pulmonary: Reports shortness of breath, cough Neurologic denied any new focal deficits All inpatient medications were reviewed and appropriate changes in these medications as dictated in the interval history and assessment and plan. PHYSICAL EXAMINATION: GENERAL: The patient is alert and oriented x3, not in any acute distress. Well developed, well nourished. HEENT: Pupils are round and equally reacting to light. EOMI. No scleral icterus. No conjunctival pallor. Normocephalic, atraumatic. No pharyngeal erythema. No thyromegaly. CARDIOVASCULAR: S1 and S2 present. No murmurs, rubs, or gallops. PULMONARY: Scattered crackles noted with congested cough. ABDOMEN: Soft, Tender, distended, hypoactive bowel sounds. No palpable organomegaly. Post surgical abdomen with colostomy bag left lower quadrant small amount of brown stool in bag. There is also gas in the ostomy bag. NG tube in place. MUSCULOSKELETAL: No joint swelling or deformity. EXTREMITIES: No cyanosis, clubbing, Pitting ankle edema +1. NEUROLOGICAL: Gross neurological examination did not reveal any focal deficits. SKIN: No rashes. Assessment and Plan -Acute hypoxic respiratory failure secondary to possible acute CHF, likely diastolic. Patient refused echocardiogram. Received a dose of lasix X1. Has had large amount of gastric output from NG Tube recommend to monitor off lasix. -Acute small bowel obstruction with distal right lower quadrant transition zone noted. Bowel resection earlier in the year in [place] for colonic perforation with colostomy formation. 02/19/2022:extensive lysis of adhesions and small bowel resection and repair of incisional hernia by Dr. Munoz. NPO with ice chips NG tube reinserted on 02/23/22 secondary to nausea and vomiting. Possible postoperative ileus per abdominal CT. -Recent Acute right basal pneumonia in a patient with Recurrent pneumonia in a patient with underlying COPD. recent cultures have been positive sputum positive for stenitophomas maltophilia, MRSA, E. coli. And now on January 23 positive for pseudomonas aeruginosa. IV meropenem every 8hrs has been resumed. -COPD in a previous smoker: Better DuoNeb 4 times a day. Symbicort -Chronic hypoxic respiratory failure from COPD Home oxygen 2 L currently with acute on chronic hypoxic respiratory failure on 3L nasal cannula -Hyperuricemia Allopurinol 100 mg a day -Factor V Leyden mutation -Right upper lung nodule treated with the radiation Follow with pulmonary -Essential hypertension Lopressor 25 mg twice a day also on lisonorpil/hctz, blood pressure is normotensive currently -BPH Cardura 4 mg a day -Anxiety not otherwise specified Xanax when necessary -Chronic kidney disease likely nephrosclerosis stage III Follow renal function -Right renal mass being followed outpatient -History of DVT Plan NG tube reinserted 02/23/2022, started on TPN. Abdominal discomfort has somewhat improved with decompression. Continues NPO with Ice chips. Resumed on meropenem. Kidney function improving, repeat labs in AM. Encourage incentive spirometer. Pu lmonary following. Repeat labs in AM. The impression and plan of care has been dictated by Cathy Terry, Nurse Practitioner as directed. Dr. Marisol MD I have performed a history and physical examination and medical decision making of this patient, discussed the same with the dictator, and agree with the dictators assessment and plan as written, documented as a scribe. Based on total visit time, I have performed more than 50% of this visit. Objective - Vital Signs Vital signs: Vital Signs Temp 97.9 F 02/26/22 13:00 Pulse 101 H 02/26/22 15:53 Resp 16 02/26/22 13:00 BP 115/68 02/26/22 13:00 Pulse Ox 92 L 02/26/22 15:44 FiO2 36 02/21/22 00:31 Intake & Output 02/25/22 02/26/22 02/26/22 18:59 06:59 18:59 Intake Total 600 1036 Output Total 800 1200 200 Balance -200 -164 -200 Weight 75.296 kg Intake: Intake, IV Titration 600 1036 Amount Sodium Acetate 30 meq 600 1036 Potassium Chloride 20 meq Calcium Gluconate 1 gm Magnesium Sulfate gm 0.5 gm In Amino Acids 5 %/ Dextrose 20 % 1,000 ml @ 80 mls/hr IV .BY DURATION [facility] Rx#:[id number] Output: Gastric Drainage 800 500 200 Urine 700 Other: Voiding Method Urinal Urinal Urinal - Labs CBC & Chem 7: 02/26/22 06:19 02/26/22 06:19 Labs: Abnormal Lab Results - Last 24 Hours (Table) 02/25/22 02/26/22 02/26/22 Range/Units 18:05 02:09 06:19 RBC (4.40-5.60) X 10*6/uL Hgb (13.0-17.0) g/dL Hct (39.6-50.0) % MCV (80.0-97.0) fL MCHC (32.0-37.0) g/dL RDW (11.5-14.5) % Chloride 108 H (98-107) mmol/L Carbon Dioxide 31 H (22-30) mmol/L BUN 59 H (9-20) mg/dL Glucose 182 H (74-99) mg/dL POC Glucose (mg/dL) 162 H 159 H (70-110) mg/dL Phosphorus 2.4 L (2.5-4.5) mg/dL Total Protein 4.5 L (6.3-8.2) g/dL Albumin 2.2 L (3.5-5.0) g/dL 02/26/22 02/26/22 02/26/22 Range/Units 06:19 06:27 08:03 RBC 2.91 L (4.40-5.60) X 10*6/uL Hgb 8.8 L (13.0-17.0) g/dL Hct 28.8 L (39.6-50.0) % MCV 99.0 H (80.0-97.0) fL MCHC 30.6 L (32.0-37.0) g/dL RDW 15.1 H (11.5-14.5) % Chloride (98-107) mmol/L Carbon Dioxide (22-30) mmol/L BUN (9-20) mg/dL Glucose (74-99) mg/dL POC Glucose (mg/dL) 180 H 156 H (70-110) mg/dL Phosphorus (2.5-4.5) mg/dL Total Protein (6.3-8.2) g/dL Albumin (3.5-5.0) g/dL 02/26/22 Range/Units 12:13 RBC (4.40-5.60) X 10*6/uL Hgb (13.0-17.0) g/dL Hct (39.6-50.0) % MCV (80.0-97.0) fL MCHC (32.0-37.0) g/dL RDW (11.5-14.5) % Chloride (98-107) mmol/L Carbon Dioxide (22-30) mmol/L BUN (9-20) mg/dL Glucose (74-99) mg/dL POC Glucose (mg/dL) 161 H (70-110) mg/dL Phosphorus (2.5-4.5) mg/dL Total Protein (6.3-8.2) g/dL Albumin (3.5-5.0) g/dL Assessment and Plan Time with Patient: Less than 30
[2022-02-26 17:35] LABS: Glucose,Whole Blood 179 mg/dL (70-110)
[2022-02-26] MEDS: MAGNESIUM OXIDE 400 MG TAB PO SCH (21:59)
[2022-02-26 23:50] LABS: Glucose,Whole Blood 162 mg/dL (70-110)
[2022-02-27] MEDS: MEROPENEM 500 MG in SODIUM CHLORIDE 0.9% 100 ML IVPB SCH ×3 (00:48→18:52)
[2022-02-27 05:43] LABS: Glucose,Whole Blood 181 mg/dL (70-110)
[2022-02-27 08:19] LABS: ALT 12 U/L (4-49); AST 21 U/L (17-59); African American GFR (CKD) 68 (>60 ml/min/1.73 sqM); Albumin 2.1 g/dL (3.5-5.0); Alkaline Phosphatase 42 U/L (38-126); Anion Gap -1 mmol/L; Blood Urea Nitrogen 55 mg/dL (9-20); Calcium 8.5 mg/dL (8.4-10.2); Carbon Dioxide 33 mmol/L (22-30); Chloride 108 mmol/L (98-107); Globulin 2.2 g/dL; Glucose 164 mg/dL (74-99); Magnesium 1.9 mg/dL (1.6-2.3); Non-African American GFR(CKD) 59 (>60 ml/min/1.73 sqM); Phosphorus 1.7 mg/dL (2.5-4.5); Potassium 3.7 mmol/L (3.5-5.1); Sodium 140 mmol/L (137-145); Total Bilirubin 0.5 mg/dL (0.2-1.3); Total Protein 4.3 g/dL (6.3-8.2)
[2022-02-27] MEDS: SYMBICORT 80-4.5 MCG INHALER INHALATION SCH ×2 (09:02→19:49)
[2022-02-27] MEDS: IPRATROPIUM-ALBUTEROL 3 ML NEB INHALATION SCH ×4 (09:02→19:48)
--- NOTE | 2022-02-27 09:19 | XR ---
EXAMINATION TYPE: XR chest 1V portable DATE OF EXAM: 02/27/2022 COMPARISON: 02/23/2022 HISTORY: Shortness of breath TECHNIQUE: Frontal and lateral views of the chest are obtained. FINDINGS: Scattered senescent parenchymal changes noted. Hyperinflation compatible with COPD. Patchy basilar infiltrates with small effusions. Nodular density right upper lobe. Overall stable kimmie earance of the chest. Heart size is stable. Mediastinal structures are stable and grossly unremarkable. No evidence for hilar prominence. Degenerative changes dorsal spine. IMPRESSION: 1. Patchy basilar infiltrates with small effusions. Nodular density right upper lobe. Overall stable appearance of the chest.
[2022-02-27] MEDS: DOXAZOSIN 4 MG TAB PO SCH (09:21)
[2022-02-27] MEDS: PANTOPRAZOLE 40 MG TABLET PO SCH (09:21)
[2022-02-27] MEDS: guaiFENesin 600 MG TABLET.ER PO SCH ×3 (09:21→21:14)
[2022-02-27] MEDS: MONTELUKAST 10 MG TAB PO SCH (09:21)
[2022-02-27] MEDS: LACTOBACILLUS ACIDOPH & BULGAR 1 EACH PACKET PO SCH ×2 (09:21→09:32)
[2022-02-27] MEDS: allopurinoL 100 MG TAB PO SCH (09:22)
[2022-02-27] MEDS: HYDROmorphone 1 MG/ML 1 ML SYRINGE IVP PRN ×2 (09:22→15:10)
[2022-02-27] MEDS: ENOXAPARIN 40 MG/0.4 ML SYRINGE SQ SCH (09:22)
[2022-02-27] MEDS: METOPROLOL TARTRATE 25 MG TAB PO SCH ×2 (09:22→21:13)
[2022-02-27] MEDS: SIMETHICONE 40 MG/0.6 ML DROPS 2,000 MG/30 ML BOTTLE PO SCH ×4 (09:23→21:15)
[2022-02-27] MEDS: 1: MVI, ADULT NO.4 WITH VIT K 10 ML, TRACE (CONC-1ML/DOSE) 1 ML, SODIUM ACETATE 30 MEQ, IV SCH ×7 (11:30)
[2022-02-27] MEDS: SODIUM PHOSPHATE 10 MMOL in SODIUM CHLORIDE 0.9% 250 ML IVPB SCH ×3 (11:30→16:23)
--- NOTE | 2022-02-27 12:14 | P.PN ---
Subjective Progress Note Date: 02/27/22 Principal diagnosis: Small bowel obstruction, postoperative ileus. This is a 76-year-old male who is very well-known to me, hospitalized on multiple occasions for pneumonia with gram-negative most recent infection was related to Pseudomonas and the patient was taken off the patient antibiotics with IV meropenem. The patient has history of COPD, lung mass that was treated with SBR T and history of tracheal bronchomalacia. He has had multiple pneumonias and multiple hospitalizations in the past for the same. During the most recent hospitalization of jan 2022, the patient was treated for a recurrent Pseudomonas pneumonia Note that the patient has had previous infections with Pseudomonas, stenotrophomonas, and MRSA. The patient came into the ED with complaints of diffuse abdominal pain but more in the right lower abdomen. Patient reports that his abdominal pain started Thursday morning. The pain came on suddenly. He'd been nauseated and having acid reflux. She reports that his ostomy output had decreased he was still making a small amount of stool through his ostomy. But has stopped having any flatus over the last couple a days. Patient does have a prior history of diverticulitis with perforation requiring bowel resection with colostomy placement in March 2021 in [place]. He also has a past surgical history of a right inguinal hernia repair. Patient had a computed tomography scan abdomen and pelvis showing a small bowel obstruction. NG tube is being placed in the ER. History of a pulmonary lung nodule requiring radiation treatment. He does have factor V Leiden mutation. The patient is seen today 02/18/2022 in follow-up on the regular medical floor. He is currently sitting up at the bedside. Awake and alert in no acute distress. Nasogastric tube remains in place. Still with very minimal output of the ostomy. White count 15.0. Hemoglobin 10.0. Sodium 139. Potassium 4.8. BUN 38. Creatinine 1.7. He is continued on DuoNeb inhalations, Symbicort, Singulair. Heparin for DVT prophylaxis. Surgical services are on the case. He is currently on antibiotics in the form of meropenem. The patient is seen today 02/19/2022 in follow-up. He did undergo a exploratory laparotomy with lysis of adhesions with Dr. Maribel laguna. He tolerated the procedure well. His back in the regular medical floor. He is maintaining good O2 saturations in the 90s on 2 L/m per nasal cannula. Afebrile. Hemodynamically stable. White count 14.5. Hemoglobin 9.8. Sodium 139. Potassium 4.3. Chloride 108. Bicarb 22. BUN 39. Creatinine 1.46. Glucose 69. The patient is seen today 02/20/2022 in follow-up on the regular medical floor. He is postoperative day #1. He did undergo extensive lysis of adhesions, small bowel resection and repair of incisional hernia. He is awake and alert. he is maintaining O2 saturations in the low 90s on 4 L/m per nasal cannula. There is a small amount of stool in his ostomy. White count 9.9. Hemoglobin 9.7. Sodium 142. Potassium 4.7. Bicarb 21. BUN 56. Creatinine 1.88. Glucose 103. He is working with the incentive spirometer. He is continued on DuoNeb inhalations, Symbicort, Mucinex, Singulair. He is on antibiotics in the form of meropenem. 02/21/2022, Anival is doing well. He remains nothing by mouth. NG tube is in place and there are plans to remove the NG tube today. The colostomy site has without some minimal amount of output. Surgical once is striking and intact. He has a congested cough. he is bringing minimal amount of sputum. He remains on IV meropenem regarding recurrent pseudomonal pneumonias. Note that the patient underwent an extensive surgery which involved last of adhesions, small bowel resection and repair of an incisional hernia. He had complete bowel obstruction. He remains on Lovenox portably prophylaxis. Remains on bronchodilators. Incentive spirometer and flutter valve at the bedside. Labs from today are still pending. Creatinine from yesterday was 1.88 with a BUN of 56 and a sodium level of 142. Normocytic on is down to 9.9. He is awake and alert and sitting up on a chair is postop day #2. On 02/22/2022, the patient is sitting up on a chair. He has a congested cough. He remains on IV meropenem. Limited activity and his colostomy bag. Bowel sounds are still hypoactive. Surgical once is striking and intact. NG tube was removed. His taken no chills. No new complaints. White cell count is at 8.8 with a hemoglobin of 9.4. BUN is at 66 with a creatinine of 1.7 and sodium level is at 141. He is ambulating without a walker. On today's evaluation of 02/23/2022, the patient denies having any nausea and vomiting. GI surgeries on the case regarding the progress of the surgery. NG tube remains out. The bowel function has not returned yet. The patient is taking anxious. He is active. He is having total for pain control. Restasis as remains stable and the patient remains on IV meropenem. Remains on DuoNeb about treatments [id number]. Using incentive spirometer. Blood work from today shows that the dermis count is at 7.4 with a hemoglobin drop 9.5. BUN is at 61 with a creatinine 1.6 and a sodium level is at 144. The patient is seen today 02/24/2022 in follow-up on the regular medical floor. He is currently resting fairly comfortably in bed. He is awake and alert in no acute distress. He is having some ongoing issues with abdominal discomfort. He was having episodes of nausea and vomiting last night and a nasogastric tube was reinserted. He is maintaining good O2 saturation in the 90s on 4 L/m per nasal cannula. He is afebrile. Hemodynamically stable. Most recent chest x-ray still revealing a right lower lobe opacities. Sodium 145. Potassium 3.9. BUN 67. Creatinine 1.49. ProBNP 1400. The patient is continued on Symbicort, DuoNeb inhalations. Antibiotics in the form of meropenem. DVT prophylaxis with Lovenox. Normal saline at 50 MLS per hour. Evaluating this patient on 02/25/2022 on a regular medical floor. He appears fairly comfortable. NG tube remains in place to low intermittent suction. No more episodes of nausea and vomiting. 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 Abdominal CT from yesterday shows postoperative ileus, and small bila teral pleural effusions. Surgery is still on the case. His oxygen saturation is adequate on 4 L nasal cannula. Patient denies shortness of breath. He still has a congested productive cough. No new CBC today. BMP shows sodium 143, potassium 3.7, chloride 108, serum CO2 35, BUN 62, creatinine 1.47, glucose 161. He is receiving PPN at 80 ml/hr. He is receiving DuoNeb 4 times a day and Symbicort inhaler. DVT prophylaxis with Lovenox, and GI prophylaxis with Protonix. Evaluating this patient today on 02/26/2022, on regular medical floor. His abdominal tenderness has slightly improved over the last 24 hours. His NG tube remains to low intermittent suction, and he denies any nausea or vomiting . Receiving TPN at 80 ML's per hour through left upper arm PICC. Patient reports small amount of air an ostomy pouch. Surgery continues to follow this patient daily. From respiratory standpoint, patient remains on 4 L nasal cannula. He denies any respiratory distress. He does have a congested, nonproductive cough and is receiving Mucinex. Incentive spirometer is at bedside. He remains afebrile. CBC count from today reveals no leukocytosis. WBC count 9, in [place] 8.8, hematocrit 29, platelet 250,000. BMP from today is stable sodium 142, potassium 3.6, chloride 108, serum CO2 31, BUN 59, serum creatinine 1.21, glucose 180. Maintained empirically on meropenem. Continues receiving DuoNeb nebulization and Symbicort inhaler. Receiving Lovenox for DVT prophylaxis and Protonix for GI prophylaxis. Overall condition is slightly improved from yesterday. I'm reevaluating this patient today on 02/27/2022. He remains on a general medical floor. He is still on 4 L nasal cannula, and denies any respiratory distress. Sputum culture is pending. He continues to have a congested nonproductive cough receiving Mucinex. He has a flutter valve and incentive spirometer at bedside. His abdominal tenderness continues to improve, and he has not had any further nausea or vomiting. His NG tube was discontinued by surgery, and he was started on a clear liquid diet. He continues to's receiving supplemental nutrition in the form of TPN at 80 ML's per hour through a left upper arm PICC. Patient has small amount of air and stool in his ostomy pouch. Surgery is still following this patient. No CBC from today. BMP is stable sodium 140, potassium 3.7, chloride 108, serum CO2 33, BUN 55, creatinine 1.18, glucose 164. Continues receiving DuoNeb nebulization and Symbicort inhaler. Receiving Lovenox for DVT prophylaxis and Protonix for GI prophylaxis. Objective - Vital Signs Vital signs: Vital Signs Temp 98.5 F 02/27/22 04:20 Pulse 93 02/27/22 09:13 Resp 18 02/27/22 04:20 BP 114/61 02/27/22 04:20 Pulse Ox 95 02/27/22 09:04 FiO2 36 02/21/22 00:31 Intake & Output 02/26/22 02/27/22 02/27/22 18:59 06:59 18:59 Intake Total 2095 Output Total 200 1000 400 Balance -200 1096 -400 Weight 75.296 kg Intake: Intake, IV Titration 2095 Amount Meropenem 500 mg In 100 Sodium Chloride 0.9% 100 ml @ 33.3 mls/hr IVPB Q8HR [facility] Rx#:[id number] Mvi, Adult No.4 with Vit 960 K 10 ml Trace (Conc-1Ml/ Dose) 1 ml Sodium Acetate 30 meq Potassium Chloride 20 meq Calcium Gluconate 1 gm Magnesium Sulfate gm 0.5 gm In Amino Acids 5 %/Dextrose 20 % 1,000 ml @ 80 mls/hr IV .BY DURATION [facility] Rx#: [id number] Sodium Acetate 30 meq 1036 Potassium Chloride 20 meq Calcium Gluconate 1 gm Magnesium Sulfate gm 0.5 gm In Amino Acids 5 %/ Dextrose 20 % 1,000 ml @ 80 mls/hr IV .BY DURATION [facility] Rx#:[id number] Output: Gastric Drainage 200 Urine 750 Stool 250 400 Other: Voiding Method Urinal Urinal # Voids 3 2 - Exam GENERAL EXAM: Alert, 76-year-old male, on 4 L nasal cannula, fairly comfortable in no apparent distress. HEAD: Normocephalic. EYES: Normal reaction of pupils, equal size. NOSE: Nasogastric tube secured in place. Clear with pink turbinates. THROAT: No erythema or exudates. NECK: No masses, no JVD. CHEST: No chest wall deformity. LUNGS: Equal air entry with crackles in the right lung base. Congested cough. CVS: S1 and S2 normal with no audible murmur, regular rhythm. ABDOMEN: Improved tenderness on palpation. Surgical dressing dry and intact. Umbilical hernia reducible nontender. Ostomy bag on the side of abdomen with some air and stool in the pouch. SPINE: No scoliosis or deformity SKIN: No rashes CENTRAL NERVOUS SYSTEM: No focal deficits, tone is normal in all 4 extremities. EXTREMITIES: There is no peripheral edema. No clubbing, no cyanosis. Peripheral pulses are intact. - Labs CBC & Chem 7: 02/26/22 06:19 02/27/22 05:49 Labs: Abnormal Lab Results - Last 24 Hours (Table) 02/26/22 02/26/22 02/26/22 Range/Units 12:13 17:32 23:46 Chloride (98-107) mmol/L Carbon Dioxide (22-30) mmol/L BUN (9-20) mg/dL Glucose (74-99) mg/dL POC Glucose (mg/dL) 161 H 179 H 162 H (70-110) mg/dL Phosphorus (2.5-4.5) mg/dL Total Protein (6.3-8.2) g/dL Albumin (3.5-5.0) g/dL 02/27/22 02/27/22 Range/Units 05:41 05:49 Chloride 108 H (98-107) mmol/L Carbon Dioxide 33 H (22-30) mmol/L BUN 55 H (9-20) mg/dL Glucose 164 H (74-99) mg/dL POC Glucose (mg/dL) 181 H (70-110) mg/dL Phosphorus 1.7 L (2.5-4.5) mg/dL Total Protein 4.3 L (6.3-8.2) g/dL Albumin 2.1 L (3.5-5.0) g/dL Microbiology - Last 24 Hours (Table) 02/26/22 20:45 Sputum Culture - Preliminary Sputum Assessment and Plan Assessment: Small bowel obstruction with distal right lower quadrant transition point noted on computed tomography scan, Prior history of diverticulitis with perforation and bowel resection with colostomy placement. Status post exploratory laparoto my with lysis of adhesions, small bowel resection, repair of incisional hernia on 02/19/2022. Developed nausea and vomiting and required nasal tube reinsertion on 02/23/2022. Postoperative ileus. NG tube discontinued today 02/27/2022. Reinitiated on a clear liquid diet. Umbilical hernia reducible. status post repair Gallbladder sludge noted on CT, no evidence of cholecystitis Recurrent pneumonia. The patient is having recurrent pneumonia/tracheobronchitis with pseudomonas and other gram-negative bacteria. Completed course Meropenem. Patient remains afebrile. Right-sided pleural effusion with patchy consolidation of the right lower lobe chronic hypoxic respiratory failure currently on 4 L of O2 nasal cannula Chronic COPD maintain on Trelegy Ellipta on an outpatient basis Tracheobronchomalacia Recurrent respiratory tract infection with pseudomonas aeruginosa, E. coli, MRSA Right upper lobe pulmonary nodule avid on the previous PET scan and this was active on a PET scan and the patient was treated with SBRT Right renal mass being followed up on outpatient basis Factor 5 Leyden mutation Previous history of left lower extremity DVT Hypertension Chronic stage III kidney disease History of colonic perforation requiring colectomy and colostomy. Obstructive sleep apnea not using CPAP therapy Diverticulosis with previous history of diverticulitis Multiple hepatic cystsis Plan: The patient was seen and evaluated Chest x-ray, medications and labs reviewed Slightly improved abdominal tenderness Surgery remains on the case Continue course of meropenem Mucinex for congestion, Continue DuoNeb and Symbicort inhaler. Increase his activity as tolerated Lovenox for DVT prophylaxis Protonix for GI prophylaxis We will continue to follow I have personally seen and examined the patient, performed the documentation and the assessment and plan as written. Number of minutes spent on the visit: [10 ].
[2022-02-27 12:52] LABS: Glucose,Whole Blood 173 mg/dL (70-110)
--- NOTE | 2022-02-27 14:27 | P.PN ---
Progress Note - Text Progress Note Date: 02/27/22 patient is resting comfortably in his bed. He describes some crampy abdominal pain. He has had stool and flatus through his colostomy bag. On exam vital signs are stable. Abdomen is soft. Incision is clean dry intact. Colostomy bag shows evidence of stool and liquid and air. Status post small bowel resection for small bowel obstruction. Patient will continue on clear liquids today. We will plan on advancing his diet tomorrow.
[2022-02-27] MEDS: FAT EMULSION 20% 250 ML IV SCH (16:23)
[2022-02-27] MEDS ORDERED: FUROSEMIDE 10 MG/ML 4 ML VIAL IV STA (17:12)
[2022-02-27 17:13] LABS: Glucose,Whole Blood 135 mg/dL (70-110)
--- NOTE | 2022-02-27 17:52 | XR ---
EXAMINATION TYPE: XR chest 1V portable DATE OF EXAM: 02/27/2022 COMPARISON: 02/27/2022 earlier exam INDICATION: Short of breath CHF TECHNIQUE: Single frontal view of the chest is obtained. FINDINGS: The heart size is normal. The pulmonary vasculature is normal. There is a 1.9 spiculated density right upper lung field. Mild right lower lobe infiltrate is present . Small bilateral pleural effusions are likely present. IMPRESSION: 1. Suspicious spiculated 1.9 cm density right midlung. 2. Small bilateral pleural effusions. 3. Right lower lobe infiltrate. Correlate for atelectasis or pneumonia
[2022-02-27 20:30] LABS: Glucose,Whole Blood 149 mg/dL (70-110)
--- NOTE | 2022-02-27 20:40 | P.PN ---
Subjective Progress Note Date: 02/27/22 This is a 76 year old male who initially has been followed by Dr. Cervantes, picking up coverage today. He is monitored on medical floor, today he is postoperative day #3 for abdominal surgery secondary to bowel obstruction. Bowel sounds are noted on examination, there is small brown soft stool in ostomy bag. Stoma site in tact. midline dressing intact. He does report 10/10 abdominal pain has been receiving IV dialudid for this. Would benefit from adding oral pain medication. Reports some improvement with pain medication but not much. He is achieving 1500 on incentive spirometer. He continues on IV meropenem for history of recurrent pseudomonas pneumonia. White count today is 8.8, hgb 9.4, sodium 141, potassium 4.5, BUN 66, creatinine 1.57, glucose 97. He is currently NPO with ice chips. Being hydrated with normal saline at 75 mls per hour. He does report some left shoulder discomfort, has full range of motion no pain with range of motion exercises he had been ambulating in room with walker when happened. Will monitor. 02/23/2022 Patient is evaluated today resting in bed. He has increased abdominal pain today and also increased abdominal distention. Bowels are hypoactive, minimal stool in ostomy bag. He feels more gassy today which mylicon will be added. Additionally he is more short of breath today and has crackles noted on exam. Chest xray will be ordered and patient will most likely need a dose of IV lasix, no prior history of heart failure noted in medical history. Possibly volume overload. Patient is NPO at this time per surgery recommendations. Hold IV fluids for now, continues on IV meropenem. Hgb stable today at 7.5. No white count. Creatinine increased slightly to 1.6 today. 1L of urine output noted in the last 24 hours. Remains afebrile, oxygen has been increased to 5L nasal cannula. 02/24/2022 Patient is evaluated today sitting up in chair, family at bedside. patient received a dose of IV lasix yesterday and appears to be breathing more comfortably today. He had NG tube reinserted last night which he had about 1.6 Liters of greenish output. He reports improvement in abdominal discomfort. Patient was monitored off IV fluids overnight. Creatinine did improve today down to 1.49. He diuresed about 1.1 L overnight. Echocardiogram has been ordered for further evaluation, proBNP was 1400 which is normal for patients age. Colostomy output remains same as yesterday. Patient has remained NPO with ice chips, will be started on TPN today. 02/25/2022 Patient started on TPN currently infusing. He remains NPO with NG tube in place. Has 2.050 L gastric output overnight. 800 mls of urine output. Abdominal pelvis CT showing postoperative ileus. Labs today showing sodium 143, potassium 3.7, BUN 62, creatinine 1.47. He continues with congested cough. on 4L nasal cannula. proBNP improved continues with pitting lower extremity edema. Monitor off lasix. 02/26/2022 Patient evaluated today resting in bed. He has been up to the chair for meals. He has NG tube in place with about 1.5 L out in the last 24 hours. He has been started on TPN which is running at 80 mls /hr. His creatinine has improved to 1.21. Hemoglobin today is 8.8. Lisinopril has been stopped, blood pressure on the lower side. He does report some improvement in abdominal pain and will recommend to back off the dilaudid a bit. He does have increased bowel sounds today. Discussed with pulmonary who have added back on meropenem. 02/27/2022 Patient is evaluated today on medical floor. NG tube has been removed. He has had his ostomy emptied twice today. He is passing gas through ostomy as well as stool. Continues to receive TPN through PICC LIne. Kidney function has improved today creatinine is down to 1.18. Blood glucose in the 160s. He remains afebrile, heart rate 103, blood pressure 114/61, 97% on 4L nasal cannula. Repeat chest xray today shows suspicious spiculated 1.9 cm density right midlung, small bilateral pleural effusions, right lower lobe infiltrate, correlate for atelec tasis or pneumonia. He has been continued on IV meropenem from prior recommendation. Repeat sputum culture ordered and is pending. Labs today showing sodium 140, potassium 3.7, BUN 55 creatinine 1.18. Blood glucose 140s. Phosphorous is 1.7 and has been replaced. He has remained afebrile, heart rate 100s, blood pressure 104/62, 96% on 4L nasal cannula. Pulmonary and surgery following. Review of Systems Constitutional: Denied any fatigue denied any fever. Cardio vascular: denied any chest pain, palpitations Gastrointestinal: Denies nausea, vomiting, Passing stool through ostomy. Pulmonary: Reports shortness of breath, cough Neurologic denied any new focal deficits All inpatient medications were reviewed and appropriate changes in these medications as dictated in the interval history and assessment and plan. PHYSICAL EXAMINATION: GENERAL: The patient is alert and oriented x3, not in any acute distress. Well developed, well nourished. HEENT: Pupils are round and equally reacting to light. EOMI. No scleral icterus. No conjunctival pallor. Normocephalic, atraumatic. No pharyngeal erythema. No thyromegaly. CARDIOVASCULAR: S1 and S2 present. No murmurs, rubs, or gallops. PULMONARY: Scattered crackles noted with congested cough. ABDOMEN: Soft, Tender, nondistended hypoactive bowel sounds. No palpable organomegaly. Post surgical abdomen with colostomy bag LLQ with stool and gas in bag. NG tube discontinued. MUSCULOSKELETAL: No joint swelling or deformity. EXTREMITIES: No cyanosis, clubbing, Pitting ankle edema +1. NEUROLOGICAL: Gross neurological examination did not reveal any focal deficits. SKIN: No rashes. Assessment and Plan -Acute hypoxic respiratory failure secondary to possible acute CHF, likely diastolic. Patient refused echocardiogram. He has been monitored off lasix, creatinine is improving. -Acute small bowel obstruction with distal right lower quadrant transition zone noted. Bowel resection earlier in the year in [place] for colonic perforation w ith colostomy formation. 02/19/2022:extensive lysis of adhesions and small bowel resection and repair of incisional hernia by Dr. Munoz. NPO with ice chips NG tube reinserted on 02/23/22 secondary to nausea and vomiting. Possible postoperative ileus per abdominal CT. -Recent Acute right basal pneumonia in a patient with Recurrent pneumonia in a patient with underlying COPD. recent cultures have been positive sputum positive for stenitophomas maltophilia, MRSA, E. coli. And now on January 23 positive for pseudomonas aeruginosa. IV meropenem every 8hrs has been resumed. -COPD in a previous smoker: Better DuoNeb 4 times a day. Symbicort -Chronic hypoxic respiratory failure from COPD Home oxygen 2 L currently with acute on chronic hypoxic respiratory failure on 3L nasal cannula -Hyperuricemia Allopurinol 100 mg a day -Factor V Leyden mutation -Right upper lung nodule treated with the radiation Follow with pulmonary -Essential hypertension Lopressor 25 mg twice a day also on lisonorpil/hctz, blood pressure is normotensive currently -BPH Cardura 4 mg a day -Anxiety not otherwise specified Xanax when necessary -Chronic kidney disease likely nephrosclerosis stage III Follow renal function -Right renal mass being followed outpatient -History of DVT Plan NG tube has been discontinued, patient has been maintained on TPN and diet has been advanced to clear liquid. He is passing stool and gas through his ostomy. He is working with physical therapy. Has been continued on meropenem. Repeat sputum is pending. His abdominal pain is improving. Repeat labs in AM. Pulmonary and surgery following. The impression and plan of care has been dictated by Cathy Terry, Nurse Practitioner as directed. Dr. Marisol MD I have performed a history and physical examination and medical decision making of this patient, discussed the same with the dictator, and agree with the dictators assessment and plan as written, documented as a scribe. Based on total visit time, I have performed more than 50% of this visit. Objective - Vital Signs Vital signs: Vital Signs Temp 98.5 F 02/27/22 04:20 Pulse 79 02/27/22 04:20 Resp 18 02/27/22 04:20 BP 114/61 02/27/22 04:20 Pulse Ox 97 02/27/22 04:20 FiO2 36 02/21/22 00:31 Intake & Output 02/26/22 02/27/22 02/27/22 18:59 06:59 18:59 Intake Total 1060 Output Total 200 1000 Balance -200 60 Weight 75.296 kg Intake: Intake, IV Titration 1060 Amount Meropenem 500 mg In 100 Sodium Chloride 0.9% 100 ml @ 33.3 mls/hr IVPB Q8HR [facility] Rx#:[id number] Mvi, Adult No.4 with Vit 960 K 10 ml Trace (Conc-1Ml/ Dose) 1 ml Sodium Acetate 30 meq Potassium Chloride 20 meq Calcium Gluconate 1 gm Magnesium Sulfate gm 0.5 gm In Amino Acids 5 %/Dextrose 20 % 1,000 ml @ 80 mls/hr IV .BY DURATION BIJU Rx#: [id number] Output: Gastric Drainage 200 Urine 750 Stool 250 Other: Voiding Method Urinal Urinal # Voids 3 2 - Labs CBC & Chem 7: 02/26/22 06:19 02/27/22 05:49 Labs: Abnormal Lab Results - Last 24 Hours (Table) 02/26/22 02/26/22 02/26/22 Range/Units 06:19 12:13 17:32 RBC 2.91 L (4.40-5.60) X 10*6/uL Hgb 8.8 L (13.0-17.0) g/dL Hct 28.8 L (39.6-50.0) % MCV 99.0 H (80.0-97.0) fL MCHC 30.6 L (32.0-37.0) g/dL RDW 15.1 H (11.5-14.5) % Chloride (98-107) mmol/L Carbon Dioxide (22-30) mmol/L BUN (9-20) mg/dL Glucose (74-99) mg/dL POC Glucose (mg/dL) 161 H 179 H (70-110) mg/dL Phosphorus (2.5-4.5) mg/dL Total Protein (6.3-8.2) g/dL Albumin (3.5-5.0) g/dL 02/26/22 02/27/22 02/27/22 Range/Units 23:46 05:41 05:49 RBC (4.40-5.60) X 10*6/uL Hgb (13.0-17.0) g/dL Hct (39.6-50.0) % MCV (80.0-97.0) fL MCHC (32.0-37.0) g/dL RDW (11.5-14.5) % Chloride 108 H (98-107) mmol/L Carbon Dioxide 33 H (22-30) mmol/L BUN 55 H (9-20) mg/dL Glucose 164 H (74-99) mg/dL POC Glucose (mg/dL) 162 H 181 H (70-110) mg/dL Phosphorus 1.7 L (2.5-4.5) mg/dL Total Protein 4.3 L (6.3-8.2) g/dL Albumin 2.1 L (3.5-5.0) g/dL Microbiology - Last 24 Hours (Table) 02/26/22 20:45 Sputum Culture - Preliminary Sputum Assessment and Plan Time with Patient: Less than 30
--- NOTE | 2022-02-27 21:00 | P.CONS ---
History of Present Illness - Reason for Consult Consult date: 02/27/22 Pneumonia, antibiotic management Requesting physician: Cathy Terry - Chief Complaint Abdominal pain x few days - History of Present Illness Patient is a 76 year old male with a past medical history significant for end-stage COPD patient did have a history of recurrent pneumonias recently did have a multidrug resistant Pseudomonas for the patient was getting IV meropenem at home patient presented to [facility] ER on 02/17/2022 for evaluation of abdominal pain and vomiting patient has been diagnosed with a small bowel obstruction secondary to internal hernia and adhesive band patient is status post laparotomy on 02/19/2022 and did have excessive lysis of adhesion small bowel resection and repair of incisional hernia, patient did have a low-g rade fever of 99.7F on 02/18/2022 the patient has been afebrile since then patient did have mild tachycardia and is currently requiring 4 L nasal cannula oxygen with the patient mention has been more for him as he usually does not require supplemental oxygen patient also complaining of cough which has been moderate intensity and some thick sputum denies any hemoptysis or pleuritic chest pain, patient did have elevated white count admission however the patient white count has been normal for the last few days, daily for infection has been normal liver enzymes are normalx right lower lobe infiltrate correlate for His pneumonia sputum cultures have been repeated patient was restarted on meropenem infectious disease was consulted for further management of antibiotic therapy Review of Systems Positive point has been mentioned in the HPI rest of the systems are negative Past Medical History Past Medical History: Blood Disorder, Cancer, COPD, Deep Vein Thrombosis (DVT), GERD/Reflux, Hypertension, Pneumonia, Renal Disease Additional Past Medical History / Comment(s): hx of pseudomonus lung infection, uses CPAP not for sleep apnea, O2 prn 2l prn, diverticulits, Factor V Leiden, hx of bronchial silicone stent now removed, PICC line in past now removed, past hx dialysis for kidney damage, none currently, Stage 3 renal disease, Lung cancer - diagnosed and treated down in [place], Colostomy, hernia repair History of Any Multi-Drug Resistant Organisms: MRSA, Other MDRO Year Discovered:: 01/30/22-MDRO Pseudomonas; 08/30/21-MRSA MDRO Source:: Sputum-MDRO & MRSA Past Surgical History: Hernia Repair, Tonsillectomy Additional Past Surgical History / Comment(s): bronchoscopy, bronchial silicone stent, now removed, fatty tumor removed from chest area, COLONOSCOPY, alexandre ca taract, hernia repair Past Anesthesia/Blood Transfusion Reactions: Previous Problems w/ Anesthesia Additional Past Anesthesia/Blood Transfusion Reaction / Comm: "as turned black and blue from ETHER". FACTOR V LEIDEN Past Psychological History: Anxiety Smoking Status: Former smoker Past Alcohol Use History: None Reported Past Drug Use History: None Reported - Past Family History Father Family Medical History: Cancer Additional Family Medical History / Comment(s): colon cancer Mother Family Medical History: Cancer Additional Family Medical History / Comment(s): leukemia Medications and Allergies Home Medications Medication Instructions Recorded Confirmed Type Montelukast Sodium [Singulair] 10 mg PO DAILY 01/24/14 02/17/22 History Albuterol Nebulized [Ventolin 2.5 mg INHALATION RT-TID PRN 07/25/16 02/17/22 History Nebulized] Metoprolol Tartrate [Lopressor] 25 mg PO BID 07/25/16 02/17/22 History Cetirizine HCl [Zyrtec] 10 mg PO DAILY 08/19/16 02/17/22 History Doxazosin [Cardura] 4 mg PO DAILY 09/01/18 02/17/22 History L.acidoph,Paracasei, B.lactis 1 cap PO DAILY 09/01/18 02/17/22 History [Probiotic] Sodium Chloride 0.9% Nebuliz 3 ml INHALATION RT-QID 09/01/18 02/17/22 History [Saline 0.9% For Nebulization] allopurinoL [Zyloprim] 100 mg PO DAILY 11/21/19 02/17/22 History Albuterol Sulfate [Ventolin HFA] 2 puff INHALATION RT-QID PRN 10/21/21 02/17/22 History Budesonide 0.25 mg INHALATION RT-BID 10/21/21 02/17/22 History Fluticasone/Umeclidin/Vilanter 1 puff INHALATION RT-DAILY 10/21/21 02/17/22 History [Trelegy Ellipta 100-62.5-25] Acetaminophen Tab [Tylenol] 650 mg PO Q6HR PRN tab 10/25/21 02/17/22 Rx Ascorbic Acid [Vitamin C] 1,000 mg PO DAILY 01/29/22 02/17/22 History Aspirin 81 mg PO DAILY 01/29/22 02/17/22 History Cholecalciferol [Vitamin D3 (25 50 mcg PO DAILY 01/29/22 02/17/22 History Mcg = 1000 Iu)] Ipratropium-Albuterol Nebulize 3 ml INHALATION RT-BID 01/29/22 02/17/22 History [Duoneb 0.5 mg-3 mg/3 ml Soln] Magnesium Oxide [Mag-Ox] 400 mg PO HS 01/29/22 02/17/22 History Pantoprazole Sodium [Protonix] 20 mg PO DAILY 01/29/22 02/17/22 History Meropenem [Merrem] 1 gm IVPB TID@0000,0800,1600 02/17/22 02/17/22 History HYDROcodone/APAP 5-325MG [Montross 1 each PO Q6HR PRN 5 Days #20 tab 03/07/22 Rx 5-325] Piperacillin-Tazobactam [Zosyn] 3.375 gm IVPB Q8HR #42 each 03/07/22 Rx Psyllium Husk 100% [Metamucil 6 gm PO DAILY PRN #0 packet 03/07/22 02/17/22 Rx Packet] guaiFENesin [Mucinex] 600 mg PO BID PRN #0 03/07/22 02/17/22 Rx Allergies Allergy/AdvReac Type Severity Reaction Status Date / Time cefepime Allergy SHUT DOWN Verified 02/17/22 11:36 KIDNEYS ether Allergy Anaphylaxis Verified 02/17/22 11:36 Iodinated Contrast Media Allergy PAST Verified 02/17/22 11:36 [Iodinated Contrast Media - HISTORY OF Oral and] KIDNEY PROBLEMS venom-honey bee Allergy Anaphylaxis Verified 02/17/22 11:36 sulfamethoxazole AdvReac states Verified 02/17/22 11:36 [From Bactrim] effects kidneys trimethoprim [From Bactrim] AdvReac states Verified 02/17/22 11:36 effects kidneys Physical Exam Vitals: Vital Signs Temp Pulse Pulse Resp BP Pulse Ox 02/27/22 09:13 93 02/27/22 09:04 95 02/27/22 09:02 91 02/27/22 04:20 98.5 F 79 18 114/61 97 12/21/22 20:26 103 H 02/26/22 20:15 106 H 02/26/22 20:00 18 02/26/22 19:23 98.5 F 102 H 19 124/68 96 02/26/22 15:53 101 H 02/26/22 15:44 98 92 L 02/26/22 13:00 97.9 F 99 16 115/68 95 02/26/22 12:00 96 02/26/22 11:48 96 Intake and Output 02/26/22 02/27/22 02/27/22 22:59 06:59 14:59 Intake Total 1060 Output Total 500 500 400 Balance -500 560 -400 Intake: Intake, IV Titration 1060 Amount Meropenem 500 mg In 100 Sodium Chloride 0.9% 100 ml @ 33.3 mls/hr IVPB Q8HR [facility] Rx#:[id number] Mvi, Adult No.4 with Vit 960 K 10 ml Trace (Conc-1Ml/ Dose) 1 ml Sodium Acetate 30 meq Potassium Chloride 20 meq Calcium Gluconate 1 gm Magnesium Sulfate gm 0.5 gm In Amino Acids 5 %/Dextrose 20 % 1,000 ml @ 80 mls/hr IV .BY DURATION BIJ[facility] Rx#: [id number] Output: Urine 500 250 Stool 250 400 Other: Voiding Method Urinal # Voids 2 GENERAL DESCRIPTION: Elderly male lying in bed, no distress. No tachypnea or accessory muscle of respiration use. HEENT: Shows Pallor , no scleral icterus. Oral mucous membrane is dry. No pharyngeal erythema or thrush NECK: Trachea central, no thyromegaly. LUNGS: Unlabored breathing. Course this was bilaterally. No wheeze or crackle. HEART: S1, S2, regular rate and rhythm. No loud murmur ABDOMEN: Soft, midline incision is intact with minimal swelling no redness or drainage EXTREMITIES: No edema of feet. SKIN: No rash, no masses palpable. NEUROLOGICAL: The patient is awake, alert, oriented x3, mood and affect normal. Results CBC & Chem 7: 03/07/22 06:58 03/07/22 06:58 Labs: Abnormal Lab Results - Last 24 Hours (Table) 02/26/22 02/26/22 02/26/22 Range/Units 12:13 17:32 23:46 Chloride (98-107) mmol/L Carbon Dioxide (22-30) mmol/L BUN (9-20) mg/dL Glucose (74-99) mg/dL POC Glucose (mg/dL) 161 H 179 H 162 H (70-110) mg/dL Phosphorus (2.5-4.5) mg/dL Total Protein (6.3-8.2) g/dL Albumin (3.5-5.0) g/dL 02/27/22 02/27/22 Range/Units 05:41 05:49 Chloride 108 H (98-107) mmol/L Carbon Dioxide 33 H (22-30) mmol/L BUN 55 H (9-20) mg/dL Glucose 164 H (74-99) mg/dL POC Glucose (mg/dL) 181 H (70-110) mg/dL Phosphorus 1.7 L (2.5-4.5) mg/dL Total Protein 4.3 L (6.3-8.2) g/dL Albumin 2.1 L (3.5-5.0) g/dL Microbiology - Last 24 Hours (Table) 02/26/22 20:45 Sputum Culture - Preliminary Sputum Assessment and Plan (1) Pneumonia Status: Acute Code(s): J18.9 - PNEUMONIA, UNSPECIFIED ORGANISM SNOMED Code(s): 748086439 Plan: 1patient with end-stage COPD this patient with a history of recurrent pneumonias and patient was getting treatment for multidrug resistant Pseudomonas pneumonia when he got admitted to the hospital for Bowel obstruction in this patient who is status post laparotomy lysis of adhesion repair of incisional hernia and small bowel resection patient becomes the gum or shortness of breath requiring supplemental oxygen concerning for possible pneumonia. 2sputum culture had been obtained and results will be followed. 3UA check his inflammatory markers. 4continue with the meropenem while waiting for the cultures to finalize. We will follow on clinical condition and cultures to further adjust medication if needed Thank you for this consultation will follow this patient with you Time with Patient: Greater than 30
[2022-02-27] MEDS: MAGNESIUM OXIDE 400 MG TAB PO SCH (21:13)
[2022-02-28 00:23] LABS: Glucose,Whole Blood 190 mg/dL (70-110)
[2022-02-28] MEDS: 1: MVI, ADULT NO.4 WITH VIT K 10 ML, TRACE (CONC-1ML/DOSE) 1 ML, SODIUM ACETATE 30 MEQ, IV SCH ×22 (00:55→13:48)
[2022-02-28] MEDS: MEROPENEM 500 MG in SODIUM CHLORIDE 0.9% 100 ML IVPB SCH ×4 (00:55→23:42)
[2022-02-28 06:04] LABS: Glucose,Whole Blood 178 mg/dL (70-110)
[2022-02-28 08:02] LABS: Basophils % (A) 0 %; Eosinophils # (A) 0.5 k/uL (0-0.7); Eosinophils % (A) 6 %; HCT 26.4 % (39.0-53.0); HGB 8.5 gm/dL (13.0-17.5); Hypochromasia Slight; Lymphocytes # (A) 0.9 k/uL (1.0-4.8); Lymphocytes % (A) 11 %; MCH 31.1 pg (25.0-35.0); MCHC 32.3 g/dL (31.0-37.0); MCV 96.3 fL (80.0-100.0); Mean Platelet Volume 10.1; Monocytes # (A) 0.4 k/uL (0-1.0); Monocytes % (A) 5 %; Neutrophils # (A) 6.7 k/uL (1.3-7.7); Neutrophils % (A) 77 %; Platelet Count 286 k/uL (150-450); RBC 2.74 m/uL (4.30-5.90); RDW 13.9 % (11.5-15.5); WBC 8.7 k/uL (3.8-10.6)
[2022-02-28 08:05] LABS: ALT 20 U/L (4-49); AST 31 U/L (17-59); African American GFR (CKD) 70 (>60 ml/min/1.73 sqM); Albumin/Globulin Ratio 0.8; Alkaline Phosphatase 48 U/L (38-126); Anion Gap 2 mmol/L; Blood Urea Nitrogen 52 mg/dL (9-20); Calcium 8.3 mg/dL (8.4-10.2); Carbon Dioxide 32 mmol/L (22-30); Chloride 102 mmol/L (98-107); Globulin 2.4 g/dL; Glucose 171 mg/dL (74-99); Magnesium 1.6 mg/dL (1.6-2.3); Non-African American GFR(CKD) 60 (>60 ml/min/1.73 sqM); Phosphorus 1.8 mg/dL (2.5-4.5); Potassium 3.5 mmol/L (3.5-5.1); Sodium 136 mmol/L (137-145); Total Bilirubin 0.5 mg/dL (0.2-1.3); Total Protein 4.4 g/dL (6.3-8.2)
[2022-02-28] MEDS: HYDROmorphone 1 MG/ML 1 ML SYRINGE IVP PRN ×4 (08:11→21:25)
[2022-02-28] MEDS: ENOXAPARIN 40 MG/0.4 ML SYRINGE SQ SCH (08:14)
[2022-02-28] MEDS: SIMETHICONE 40 MG/0.6 ML DROPS 2,000 MG/30 ML BOTTLE PO SCH ×4 (08:14→20:41)
[2022-02-28] MEDS: LACTOBACILLUS ACIDOPH & BULGAR 1 EACH PACKET PO SCH (08:15)
[2022-02-28] MEDS: METOPROLOL TARTRATE 25 MG TAB PO SCH ×2 (08:15→20:38)
[2022-02-28] MEDS: allopurinoL 100 MG TAB PO SCH (08:15)
[2022-02-28] MEDS: guaiFENesin 600 MG TABLET.ER PO SCH ×2 (08:15→20:38)
[2022-02-28] MEDS: PANTOPRAZOLE 40 MG TABLET PO SCH (08:15)
[2022-02-28] MEDS: MONTELUKAST 10 MG TAB PO SCH (08:15)
[2022-02-28] MEDS: DOXAZOSIN 4 MG TAB PO SCH (08:20)
[2022-02-28] MEDS: IPRATROPIUM-ALBUTEROL 3 ML NEB INHALATION SCH ×4 (08:49→20:58)
[2022-02-28] MEDS: SYMBICORT 80-4.5 MCG INHALER INHALATION SCH ×2 (08:49→20:58)
[2022-02-28 09:33] LABS: C Reactive Protein 7.3 mg/dL (<1.0)
--- NOTE | 2022-02-28 11:21 | P.PN ---
Progress Note - Text Progress Note Date: 02/28/22 The patient still has complaints of pain. He is requiring IV pain control. He is tolerating his liquid diet. On exam vessels are still. Abdomen soft. Incisions clean and intact. There is some minimal tenderness throughout. There is no rebound or guarding. There is stool the colostomy site. Status post exploratory brought with small bowel resection for small bowel obstruction. The patient will have his diet increased. Hopefully his pain medicine requirement we'll decrease. We despite discharged next 48 hours.
--- NOTE | 2022-02-28 12:37 | P.PN ---
Subjective Progress Note Date: 02/28/22 Principal diagnosis: Small bowel obstruction, postoperative ileus. This is a 76-year-old male who is very well-known to me, hospitalized on multiple occasions for pneumonia with gram-negative most recent infection was related to Pseudomonas and the patient was taken off the patient antibiotics with IV meropenem. The patient has history of COPD, lung mass that was treated with SBR T and history of tracheal bronchomalacia. He has had multiple pneumonias and multiple hospitalizations in the past for the same. During the most recent hospitalization of jan 2022, the patient was treated for a recurrent Pseudomonas pneumonia Note that the patient has had previous infections with Pseudomonas, stenotrophomonas, and MRSA. The patient came into the ED with complaints of diffuse abdominal pain but more in the right lower abdomen. Patient reports that his abdominal pain started Thursday morning. The pain came on suddenly. He'd been nauseated and having acid reflux. She reports that his ostomy output had decreased he was still making a small amount of stool through his ostomy. But has stopped having any flatus over the last couple a days. Patient does have a prior history of diverticulitis with perforation requiring bowel resection with colostomy placement in March 2021 in [place]. He also has a past surgical history of a right inguinal hernia repair. Patient had a computed tomography scan abdomen and pelvis showing a small bowel obstruction. NG tube is being placed in the ER. History of a pulmonary lung nodule requiring radiation treatment. He does have factor V Leiden mutation. The patient is seen today 02/18/2022 in follow-up on the regular medical floor. He is currently sitting up at the bedside. Awake and alert in no acute distress. Nasogastric tube remains in place. Still with very minimal output of the ostomy. White count 15.0. Hemoglobin 10.0. Sodium 139. Potassium 4.8. BUN 38. Creatinine 1.7. He is continued on DuoNeb inhalations, Symbicort, Singulair. Heparin for DVT prophylaxis. Surgical services are on the case. He is currently on antibiotics in the form of meropenem. The patient is seen today 02/19/2022 in follow-up. He did undergo a exploratory laparotomy with lysis of adhesions with Dr. Maribel laguna. He tolerated the procedure well. His back in the regular medical floor. He is maintaining good O2 saturations in the 90s on 2 L/m per nasal cannula. Afebrile. Hemodynamically stable. White count 14.5. Hemoglobin 9.8. Sodium 139. Potassium 4.3. Chloride 108. Bicarb 22. BUN 39. Creatinine 1.46. Glucose 69. The patient is seen today 02/20/2022 in follow-up on the regular medical floor. He is postoperative day #1. He did undergo extensive lysis of adhesions, small bowel resection and repair of incisional hernia. He is awake and alert. he is maintaining O2 saturations in the low 90s on 4 L/m per nasal cannula. There is a small amount of stool in his ostomy. White count 9.9. Hemoglobin 9.7. Sodium 142. Potassium 4.7. Bicarb 21. BUN 56. Creatinine 1.88. Glucose 103. He is working with the incentive spirometer. He is continued on DuoNeb inhalations, Symbicort, Mucinex, Singulair. He is on antibiotics in the form of meropenem. 02/21/2022, Anival is doing well. He remains nothing by mouth. NG tube is in place and there are plans to remove the NG tube today. The colostomy site has without some minimal amount of output. Surgical once is striking and intact. He has a congested cough. he is bringing minimal amount of sputum. He remains on IV meropenem regarding recurrent pseudomonal pneumonias. Note that the patient underwent an extensive surgery which involved last of adhesions, small bowel resection and repair of an incisional hernia. He had complete bowel obstruction. He remains on Lovenox portably prophylaxis. Remains on bronchodilators. Incentive spirometer and flutter valve at the bedside. Labs from today are still pending. Creatinine from yesterday was 1.88 with a BUN of 56 and a sodium level of 142. Normocytic on is down to 9.9. He is awake and alert and sitting up on a chair is postop day #2. On 02/22/2022, the patient is sitting up on a chair. He has a congested cough. He remains on IV meropenem. Limited activity and his colostomy bag. Bowel sounds are still hypoactive. Surgical once is striking and intact. NG tube was removed. His taken no chills. No new complaints. White cell count is at 8.8 with a hemoglobin of 9.4. BUN is at 66 with a creatinine of 1.7 and sodium level is at 141. He is ambulating without a walker. On today's evaluation of 02/23/2022, the patient denies having any nausea and vomiting. GI surgeries on the case regarding the progress of the surgery. NG tube remains out. The bowel function has not returned yet. The patient is taking anxious. He is active. He is having total for pain control. Restasis as remains stable and the patient remains on IV meropenem. Remains on DuoNeb about treatments [id number]. Using incentive spirometer. Blood work from today shows that the dermis count is at 7.4 with a hemoglobin drop 9.5. BUN is at 61 with a creatinine 1.6 and a sodium level is at 144. The patient is seen today 02/24/2022 in follow-up on the regular medical floor. He is currently resting fairly comfortably in bed. He is awake and alert in no acute distress. He is having some ongoing issues with abdominal discomfort. He was having episodes of nausea and vomiting last night and a nasogastric tube was reinserted. He is maintaining good O2 saturation in the 90s on 4 L/m per nasal cannula. He is afebrile. Hemodynamically stable. Most recent chest x-ray still revealing a right lower lobe opacities. Sodium 145. Potassium 3.9. BUN 67. Creatinine 1.49. ProBNP 1400. The patient is continued on Symbicort, DuoNeb inhalations. Antibiotics in the form of meropenem. DVT prophylaxis with Lovenox. Normal saline at 50 MLS per hour. Evaluating this patient on 02/25/2022 on a regular medical floor. He appears fairly comfortable. NG tube remains in place to low intermittent suction. No more episodes of nausea and vomiting. Although, the abdomen is [place] tender to palpation. Abdominal CT from yesterday shows postoperative ileus, and small bila teral pleural effusions. Surgery is still on the case. His oxygen saturation is adequate on 4 L nasal cannula. Patient denies shortness of breath. He still has a congested productive cough. No new CBC today. BMP shows sodium 143, potassium 3.7, chloride 108, serum CO2 35, BUN 62, creatinine 1.47, glucose 161. He is receiving PPN at 80 ml/hr. He is receiving DuoNeb 4 times a day and Symbicort inhaler. DVT prophylaxis with Lovenox, and GI prophylaxis with Protonix. Evaluating this patient today on 02/26/2022, on regular medical floor. His abdominal tenderness has slightly improved over the last 24 hours. His NG tube remains to low intermittent suction, and he denies any nausea or vomiting . Receiving TPN at 80 ML's per hour through left upper arm PICC. Patient reports small amount of air an ostomy pouch. Surgery continues to follow this patient daily. From respiratory standpoint, patient remains on 4 L nasal cannula. He denies any respiratory distress. He does have a congested, nonproductive cough and is receiving Mucinex. Incentive spirometer is at bedside. He remains afebrile. CBC count from today reveals no leukocytosis. WBC count 9, in [place] 8.8, hematocrit 29, platelet 250,000. BMP from today is stable sodium 142, potassium 3.6, chloride 108, serum CO2 31, BUN 59, serum creatinine 1.21, glucose 180. Maintained empirically on meropenem. Continues receiving DuoNeb nebulization and Symbicort inhaler. Receiving Lovenox for DVT prophylaxis and Protonix for GI prophylaxis. Overall condition is slightly improved from yesterday. I'm reevaluating this patient today on 02/27/2022. He remains on a general medical floor. He is still on 4 L nasal cannula, and denies any respiratory distress. Sputum culture is pending. He continues to have a congested nonproductive cough receiving Mucinex. He has a flutter valve and incentive spirometer at bedside. His abdominal tenderness continues to improve, and he has not had any further nausea or vomiting. His NG tube was discontinued by surgery, and he was started on a clear liquid diet. He continues to's receiving supplemental nutrition in the form of TPN at 80 ML's per hour through a left upper arm PICC. Patient has small amount of air and stool in his ostomy pouch. Surgery is still following this patient. No CBC from today. BMP is stable sodium 140, potassium 3.7, chloride 108, serum CO2 33, BUN 55, creatinine 1.18, glucose 164. Continues receiving DuoNeb nebulization and Symbicort inhaler. Receiving Lovenox for DVT prophylaxis and Protonix for GI prophylaxis. Reevaluating this patient today on 02/28/2022. He remains on a general medical floor. He remains on 4 L nasal cannula, and denies any respiratory distress. He does have congested nonproductive cough and is receiving Mucinex. Repeat chest x-ray was performed yesterday on 02/27/2022. It showed suspicious spiculated 1.9 cm density in the right midlung, small bilateral pleural effusions, and a right lower lobe infiltrate. The right lower lobe infiltrate looks slightly better from prior study The preliminary results of the patient's sputum culture is negative so far. Patient remains afebrile. CBC from today 1222 continues to show no leukocytosis WBC count is 8.7, hemoglobin 5, hematocrit 26, platelet 286,000. Patient remains on meropenem. He is still receiving DuoNeb nebulization and Symbicort inhaler. He is receiving supplemental nutritional support form of TPN at 80 ML's per hour through a left upper arm PICC. BMP remained stable with a sodium level of 136, potassium 3.5, chloride 102, serum CO2 32, BUN 52, creatinine 1.16, glucose 171. Patient's generalized abdominal pain continues. He has good ostomy output. Surgery is on the case. Coughing and deep breathing have been encouraged. Incentive spirometer at bedside. Receiving Lovenox for DVT prophylaxis and Protonix for GI prophylaxis. Objective - Vital Signs Vital signs: Vital Signs Temp 98.2 F 02/28/22 07:05 Pulse 89 02/28/22 11:53 Resp 19 02/28/22 07:05 BP 124/65 02/28/22 07:05 Pulse Ox 95 02/28/22 08:50 FiO2 36 02/21/22 00:31 Intake & Output 02/27/22 02/28/22 02/28/22 18:59 06:59 18:59 Intake Total 1036 Output Total 1000 2300 300 Balance -1000 -1264 -300 Intake: Intake, IV Titration 1036 Amount Sodium Acetate 30 meq 1036 Potassium Chloride 20 meq Calcium Gluconate 1 gm Magnesium Sulfate gm 0.5 gm In Amino Acids 5 %/ Dextrose 20 % 1,000 ml @ 80 mls/hr IV .BY DURATION [facility] Rx#:[id number] Output: Urine 1600 300 Stool 1000 700 Other: Voiding Method Urinal # Voids 2 - Exam GENERAL EXAM: Alert, 76-year-old male, on 4 L nasal cannula, fairly comfortable in no apparent distress. HEAD: Normocephalic. EYES: Normal reaction of pupils, equal size. NOSE: Nasogastric tube secured in place. Clear with pink turbinates. THROAT: No erythema or exudates. NECK: No masses, no JVD. CHEST: No chest wall deformity. LUNGS: Equal air entry with crackles in the right lung base. Congested cough. CVS: S1 and S2 normal with no audible murmur, regular rhythm. ABDOMEN: Improved tenderness on palpation. Surgical dressing dry and intact. Umbilical hernia reducible nontender. Ostomy bag on the side of abdomen with some air and stool in the pouch. SPINE: No scoliosis or deformity SKIN: No rashes CENTRAL NERVOUS SYSTEM: No focal deficits, tone is normal in all 4 extremities. EXTREMITIES: There is no peripheral edema. No clubbing, no cyanosis. Peripheral pulses are intact. - Labs CBC & Chem 7: 02/28/22 05:32 02/28/22 05:32 Labs: Abnormal Lab Results - Last 24 Hours (Table) 02/27/22 02/27/22 02/27/22 Range/Units 12:51 17:04 20:27 RBC (4.30-5.90) m/uL Hgb (13.0-17.5) gm/dL Hct (39.0-53.0) % Lymphocytes # (1.0-4.8) k/uL Sodium (137-145) mmol/L Carbon Dioxide (22-30) mmol/L BUN (9-20) mg/dL Glucose (74-99) mg/dL POC Glucose (mg/dL) 173 H 135 H 149 H (70-110) mg/dL Calcium (8.4-10.2) mg/dL Phosphorus (2.5-4.5) mg/dL C-Reactive Protein (<1.0) mg/dL Total Protein (6.3-8.2) g/dL Albumin (3.5-5.0) g/dL 02/28/22 02/28/22 02/28/22 Range/Units 00:20 05:32 05:32 RBC 2.74 L (4.30-5.90) m/uL Hgb 8.5 L (13.0-17.5) gm/dL Hct 26.4 L (39.0-53.0) % Lymphocytes # 0.9 L (1.0-4.8) k/uL Sodium 136 L (137-145) mmol/L Carbon Dioxide 32 H (22-30) mmol/L BUN 52 H (9-20) mg/dL Glucose 171 H (74-99) mg/dL POC Glucose (mg/dL) 190 H (70-110) mg/dL Calcium 8.3 L (8.4-10.2) mg/dL Phosphorus 1.8 L (2.5-4.5) mg/dL C-Reactive Protein 7.3 H (<1.0) mg/dL Total Protein 4.4 L (6.3-8.2) g/dL Albumin 2.0 L (3.5-5.0) g/dL 02/28/22 Range/Units 05:58 RBC (4.30-5.90) m/uL Hgb (13.0-17.5) gm/dL Hct (39.0-53.0) % Lymphocytes # (1.0-4.8) k/uL Sodium (137-145) mmol/L Carbon Dioxide (22-30) mmol/L BUN (9-20) mg/dL Glucose (74-99) mg/dL POC Glucose (mg/dL) 178 H (70-110) mg/dL Calcium (8.4-10.2) mg/dL Phosphorus (2.5-4.5) mg/dL C-Reactive Protein (<1.0) mg/dL Total Protein (6.3-8.2) g/dL Albumin (3.5-5.0) g/dL Microbiology - Last 24 Hours (Table) 02/26/22 20:45 Gram Stain - Preliminary Sputum Sputum Culture - Preliminary Assessment and Plan Assessment: Small bowel obstruction with distal right lower quadrant transition point noted on computed tomography scan, Prior history of diverticulitis with perforation and bowel resection with colostomy placement. Status post exploratory laparotomy with lysis of adhesions, small bowel resection, repair of incisional hernia on 02/19/2022. Developed nausea and vomiting and required nasal tube reinsertion on 02/23/2022. Postoperative ileus. NG tube discontinued today 02/27/2022. Reinitiated on a clear liquid diet. Abdominal pain continues, but no further nausea or vomiting. There is good ostomy output. Umbilical hernia reducible. status post repair Gallbladder sludge noted on CT, no evidence of cholecystitis Recurrent pneumonia. The patient is having recurrent pneumonia/tracheobronchitis with pseudomonas and other gram-negative bacteria. Completed course Meropenem. Patient remains afebrile. Right-sided pleural effusion with patchy consolidation of the right lower lobe chronic hypoxic respiratory failure currently on 4 L of O2 nasal cannula Chronic COPD maintain on Trelegy Ellipta on an outpatient basis Tracheobronchomalacia Recurrent respiratory tract infection with pseudomonas aeruginosa, E. coli, MRSA Right upper lobe pulmonary nodule avid on the previous PET scan and this was active on a PET scan and the patient was treated with SBRT Right renal mass being followed up on outpatient basis Factor 5 Leyden mutation Previous history of left lower extremity DVT Hypertension Chronic stage III kidney disease History of colonic perforation requiring colectomy and colostomy. Obstructive sleep apnea not using CPAP therapy Diverticulosis with previous history of diverticulitis Multiple hepatic cystsis Plan: The patient was seen and evaluated Chest x-ray, medications and labs reviewed Slightly improved abdominal tenderness with good ostomy output. Surgery remains on the case Continue course of meropenem Mucinex for congestion, Continue DuoNeb and Symbicort inhaler. Increase his activity as tolerated Lovenox for DVT prophylaxis Protonix for GI prophylaxis We will continue to follow I have personally seen and examined the patient, performed the documentation and the assessment and plan as written. Number of minutes spent on the visit: [10 ].
[2022-02-28 13:09] LABS: Glucose,Whole Blood 148 mg/dL (70-110)
[2022-02-28] MEDS: MAGNESIUM SULFATE-D5W PMX 1 GM in DEXTROSE/WATER 1 100ML.BAG IVPB SCH ×2 (13:45→15:40)
[2022-02-28] MEDS: POTASSIUM PHOSPHATE 10 MMOL in SODIUM CHLORIDE 0.9% 100 ML IV SCH ×2 (13:47→15:39)
[2022-02-28 17:50] LABS: Glucose,Whole Blood 163 mg/dL (70-110)
[2022-02-28] MEDS: MAGNESIUM OXIDE 400 MG TAB PO SCH (20:38)
--- NOTE | 2022-02-28 20:58 | P.PN ---
Subjective Progress Note Date: 02/28/22 Principal diagnosis: Pneumonia Patient is a 76 year old male with a past medical history significant for end-stage COPD patient did have a history of recurrent pneumonias recently did have a multidrug resistant Pseudomonas , admitted to the hospital abdominal pain diagnosed with a small bowel obstruction status post lysis of adhesions probable resection and repair of incisional hernia. On today's evaluation that is 02/28/2022, the patient denies having any fever or any chills has been complaining of increasing shortness of breath and also having a cough, the patient did have abdominal pain this morning subsequently has resolved no nausea or vomiting Objective - Vital Signs Vital signs: Vital Signs Temp 98.2 F 02/28/22 07:05 Pulse 89 02/28/22 11:53 Resp 19 02/28/22 07:05 BP 124/65 02/28/22 07:05 Pulse Ox 95 02/28/22 08:50 FiO2 36 02/21/22 00:31 Intake & Output 02/27/22 02/28/22 02/28/22 18:59 06:59 18:59 Intake Total 1036 Output Total 1000 2300 300 Balance -1000 -1264 -300 Intake: Intake, IV Titration 1036 Amount Sodium Acetate 30 meq 1036 Potassium Chloride 20 meq Calcium Gluconate 1 gm Magnesium Sulfate gm 0.5 gm In Amino Acids 5 %/ Dextrose 20 % 1,000 ml @ 80 mls/hr IV .BY DURATION [facility] Rx#:[id number] Output: Urine 1600 300 Stool 1000 700 Other: Voiding Method Urinal # Voids 2 - Exam GENERAL DESCRIPTION: An elderly male lying in bed in no distress RESPIRATORY SYSTEM: Unlabored breathing , coarse breath sounds bilaterally HEART: S1 S2 regular rate and rhythm , ABDOMEN: Soft , no tenderness EXTREMITIES: No edema feet - Labs CBC & Chem 7: 02/28/22 05:32 02/28/22 05:32 Labs: Abnormal Lab Results - Last 24 Hours (Table) 02/27/22 02/27/22 02/28/22 Range/Units 17:04 20:27 00:20 RBC (4.30-5.90) m/uL Hgb (13.0-17.5) gm/dL Hct (39.0-53.0) % Lymphocytes # (1.0-4.8) k/uL Sodium (137-145) mmol/L Carbon Dioxide (22-30) mmol/L BUN (9-20) mg/dL Glucose (74-99) mg/dL POC Glucose (mg/dL) 135 H 149 H 190 H (70-110) mg/dL Calcium (8.4-10.2) mg/dL Phosphorus (2.5-4.5) mg/dL C-Reactive Protein (<1.0) mg/dL Total Protein (6.3-8.2) g/dL Albumin (3.5-5.0) g/dL 02/28/22 02/28/22 02/28/22 Range/Units 05:32 05:32 05:58 RBC 2.74 L (4.30-5.90) m/uL Hgb 8.5 L (13.0-17.5) gm/dL Hct 26.4 L (39.0-53.0) % Lymphocytes # 0.9 L (1.0-4.8) k/uL Sodium 136 L (137-145) mmol/L Carbon Dioxide 32 H (22-30) mmol/L BUN 52 H (9-20) mg/dL Glucose 171 H (74-99) mg/dL POC Glucose (mg/dL) 178 H (70-110) mg/dL Calcium 8.3 L (8.4-10.2) mg/dL Phosphorus 1.8 L (2.5-4.5) mg/dL C-Reactive Protein 7.3 H (<1.0) mg/dL Total Protein 4.4 L (6.3-8.2) g/dL Albumin 2.0 L (3.5-5.0) g/dL Microbiology - Last 24 Hours (Table) 02/26/22 20:45 Gram Stain - Preliminary Sputum Sputum Culture - Preliminary Assessment and Plan (1) Pneumonia Current Visit: No Status: Acute Code(s): J18.9 - PNEUMONIA, UNSPECIFIED ORGANISM SNOMED Code(s): 448984501 Plan: 1patient with end-stage COPD this patient with a history of recurrent pneumonias and patient was getting treatment for multidrug resistant Pseudomonas pneumonia when he got admitted to the hospital for Bowel obstruction in this patient who is status post laparotomy lysis of adhesion repair of incisional hernia and small bowel resection patient becomes the gum or shortness of breath requiring supplemental oxygen concerning for possible pneumonia. 2sputum culture had been obtained and currently pending. 3patient did have mildly elevated pro calcitonin. 4patient to continue with the meropenem while waiting for the cultures to finalize. Time with Patient: Less than 30
[2022-03-01 00:15] LABS: Glucose,Whole Blood 195 mg/dL (70-110)
[2022-03-01] MEDS: HYDROmorphone 1 MG/ML 1 ML SYRINGE IVP PRN ×2 (02:55→21:33)
[2022-03-01] MEDS: 1: MVI, ADULT NO.4 WITH VIT K 10 ML, TRACE (CONC-1ML/DOSE) 1 ML, SODIUM ACETATE 30 MEQ, IV SCH ×8 (04:05)
[2022-03-01 05:50] LABS: Glucose,Whole Blood 165 mg/dL (70-110)
--- NOTE | 2022-03-01 06:51 | PN ---
PROGRESS NOTE DATE OF SERVICE: 02/28/2022 SUBJECTIVE: This 76-year-old gentleman who was admitted initially after small-bowel obstruction and also respiratory difficulties. Patient was closely monitored. No chest pain. No palpitations. OBJECTIVE: VITAL SIGNS: Pulse n, blood pressure n, respirations 19. HEENT: Conjunctivae normal. n CARDIOVASCULAR: S1, S2. RESPIRATIONS: n. Scattered rhonchi and crackles. ABDOMEN: Soft, status post surgery. LABS: Reviewed. ASSESSMENT: 1. Status post small bowel resection for small-bowel obstruction. 2. Congestive heart failure with acute exacerbation and acute hypoxic respiratory failure. 3. Right basilar pneumonia. 4. Chronic obstructive pulmonary disease. 5. Chronic hypoxic respiratory failure. 6. Factor 5 Leiden mutation. 7. Multiple medical issues. RECOMMENDATIONS: Repeat labs. Continue the medications. PT/OT evaluation. Closely follow up with multiple consultants. Bronchodilators. Further recommendations to follow. MMODL / IJN: [id number] / MTDD
[2022-03-01] MEDS: IPRATROPIUM-ALBUTEROL 3 ML NEB INHALATION SCH ×4 (07:21→19:12)
[2022-03-01] MEDS: SYMBICORT 80-4.5 MCG INHALER INHALATION SCH ×2 (07:21→19:12)
[2022-03-01] MEDS: MEROPENEM 500 MG in SODIUM CHLORIDE 0.9% 100 ML IVPB SCH (07:52)
[2022-03-01] MEDS: allopurinoL 100 MG TAB PO SCH (08:30)
[2022-03-01] MEDS: guaiFENesin 600 MG TABLET.ER PO SCH ×2 (08:30→21:31)
[2022-03-01] MEDS: ENOXAPARIN 40 MG/0.4 ML SYRINGE SQ SCH (08:30)
[2022-03-01] MEDS: DOXAZOSIN 4 MG TAB PO SCH (08:30)
[2022-03-01] MEDS: MONTELUKAST 10 MG TAB PO SCH (08:31)
[2022-03-01] MEDS: METOPROLOL TARTRATE 25 MG TAB PO SCH ×2 (08:31→21:31)
[2022-03-01] MEDS: LACTOBACILLUS ACIDOPH & BULGAR 1 EACH PACKET PO SCH (08:31)
[2022-03-01] MEDS: PANTOPRAZOLE 40 MG TABLET PO SCH (08:31)
[2022-03-01] MEDS: SIMETHICONE 40 MG/0.6 ML DROPS 2,000 MG/30 ML BOTTLE PO SCH ×4 (08:31→21:32)
[2022-03-01 10:53] LABS: Basophils # (A) 0.01 X 10*3/uL (0.00-0.10); Basophils % (A) 0.1 %; Eosinophils # (A) 0.48 X 10*3/uL (0.04-0.35); Eosinophils % (A) 4.5 %; HCT 24.2 % (39.6-50.0); HGB 7.8 g/dL (13.0-17.0); Immature Grans, Automated 1.1 %; Lymphocytes # (A) 0.88 X 10*3/uL (0.90-5.00); Lymphocytes % (A) 8.3 %; MCH 29.8 pg (27.0-32.0); MCHC 32.2 g/dL (32.0-37.0); MCV 92.4 fL (80.0-97.0); Mean Platelet Volume 12.2 fL (9.5-12.2); Monocytes # (A) 1.04 X 10*3/uL (0.20-1.00); Monocytes % (A) 9.8 %; NRBC Per 100 WBC 0 /100 WBCS (0.0-0.0); Neutrophils % (A) 76.2 %; Platelet Count 290 X 10*3/uL (140-440); RBC 2.62 X 10*6/uL (4.40-5.60); RDW 14.9 % (11.5-14.5); WBC 10.63 X 10*3/uL (4.50-10.00)
[2022-03-01 11:37] LABS: African American GFR (CKD) 66.7 (60.0-200.0); Anion Gap 8.4 mmol/L (10.00-18.00); BUN/Creat Ratio 41.17 Ratio (12.00-20.00); Blood Urea Nitrogen 49.4 mg/dL (9.0-27.0); Calcium 8.5 mg/dL (8.7-10.3); Carbon Dioxide 28.6 mmol/L (20.0-27.5); Magnesium 1.9 mg/dL (1.5-2.4); Non-African American GFR(CKD) 57.6 (60.0-200.0); Phosphorus 3.2 mg/dL (2.4-5.1); Potassium 4.2 mmol/L (3.5-5.5)
[2022-03-01 12:14] LABS: Glucose,Whole Blood 182 mg/dL (70-110)
--- NOTE | 2022-03-01 12:40 | P.PN ---
Subjective Progress Note Date: 03/01/22 This is a 76-year-old male who is very well-known to me, hospitalized on multiple occasions for pneumonia with gram-negative most recent infection was related to Pseudomonas and the patient was taken off the patient antibiotics with IV meropenem. The patient has history of COPD, lung mass that was treated with SBR T and history of tracheal bronchomalacia. He has had multiple pneumonias and multiple hospitalizations in the past for the same. During the most recent hospitalization of jan 2022, the patient was treated for a recurrent Pseudomonas pneumonia Note that the patient has had previous infections with Pseudomonas, stenotrophomonas, and MRSA. The patient came into the ED with complaints of diffuse abdominal pain but more in the right lower abdomen. Patient reports that his abdominal pain started Thursday morning. The pain came on suddenly. He'd been nauseated and having acid reflux. She reports that his ostomy output had decreased he was still making a small amount of stool through his ostomy. But has stopped having any flatus over the last couple a days. Patient does have a prior history of diverticulitis with perforation requiring bowel resection with colostomy placement in March 2021 in [place]. He also has a past surgical history of a right inguinal hernia repair. Patient had a computed tomography scan abdomen and pelvis showing a small bowel obstruction. NG tube is being placed in the ER. History of a pulmonary lung nodule requiring radiation treatment. He does have factor V Leiden mutation. The patient is seen today 02/18/2022 in follow-up on the regular medical floor. He is currently sitting up at the bedside. Awake and alert in no acute distr ess. Nasogastric tube remains in place. Still with very minimal output of the ostomy. White count 15.0. Hemoglobin 10.0. Sodium 139. Potassium 4.8. BUN 38. Creatinine 1.7. He is continued on DuoNeb inhalations, Symbicort, Singulair. Heparin for DVT prophylaxis. Surgical services are on the case. He is currently on antibiotics in the form of meropenem. The patient is seen today 02/19/2022 in follow-up. He did undergo a exploratory laparotomy with lysis of adhesions with Dr. Maribel laguna. He tolerated the procedure well. His back in the regular medical floor. He is maintaining good O2 saturations in the 90s on 2 L/m per nasal cannula. Afebrile. Hemodynamically stable. White count 14.5. Hemoglobin 9.8. Sodium 139. Potassium 4.3. Chloride 108. Bicarb 22. BUN 39. Creatinine 1.46. Glucose 69. The patient is seen today 02/20/2022 in follow-up on the regular medical floor. He is postoperative day #1. He did undergo extensive lysis of adhesions, small bowel resection and repair of incisional hernia. He is awake and alert. he is maintaining O2 saturations in the low 90s on 4 L/m per nasal cannula. There is a small amount of stool in his ostomy. White count 9.9. Hemoglobin 9.7. Sodium 142. Potassium 4.7. Bicarb 21. BUN 56. Creatinine 1.88. Glucose 103. He is working with the incentive spirometer. He is continued on DuoNeb inhalations, Symbicort, Mucinex, Singulair. He is on antibiotics in the form of meropenem. 02/21/2022, Anival is doing well. He remains nothing by mouth. NG tube is in place and there are plans to remove the NG tube today. The colostomy site has without some minimal amount of output. Surgical once is striking and intact. He has a congested cough. he is bringing minimal amount of sputum. He remains on IV meropenem regarding recurrent pseudomonal pneumonias. Note that the patient underwent an extensive surgery which involved last of adhesions, small bowel resection and repair of an incisional hernia. He had complete bowel obstruction. He remains on Lovenox portably prophylaxis. Remains on bronchodilators. Incentive spirometer and flutter valve at the bedside. Labs from today are still pending. Creatinine from yesterday was 1.88 with a BUN of 56 and a sodium level of 142. Normocytic on is down to 9.9. He is awake and alert and sitting up on a chair is postop day #2. On 02/22/2022, the patient is sitting up on a chair. He has a congested cough. He remains on IV meropenem. Limited activity and his colostomy bag. Bowel sounds are still hypoactive. Surgical once is striking and intact. NG tube was removed. His taken no chills. No new complaints. White cell count is at 8.8 with a hemoglobin of 9.4. BUN is at 66 with a creatinine of 1.7 and sodium level is at 141. He is ambulating without a walker. On today's evaluation of 02/23/2022, the patient denies having any nausea and vomiting. GI surgeries on the case regarding the progress of the surgery. NG tube remains out. The bowel function has not returned yet. The patient is taking anxious. He is active. He is having total for pain control. Restasis as remains stable and the patient remains on IV meropenem. Remains on DuoNeb about treatments [id number]. Using incentive spirometer. Blood work from today shows that the dermis count is at 7.4 with a hemoglobin drop 9.5. BUN is at 61 with a creatinine 1.6 and a sodium level is at 144. The patient is seen today 02/24/2022 in follow-up on the regular medical floor. He is currently resting fairly comfortably in bed. He is awake and alert in no acute distress. He is having some ongoing issues with abdominal discomfort. He was having episodes of nausea and vomiting last night and a nasogastric tube was reinserted. He is maintaining good O2 saturation in the 90s on 4 L/m per nasal cannula. He is afebrile. Hemodynamically stable. Most recent chest x-ray still revealing a right lower lobe opacities. Sodium 145. Potassium 3.9. BUN 67. Creatinine 1.49. ProBNP 1400. The patient is continued on Symbicort, DuoNeb inhalations. Antibiotics in the form of meropenem. DVT prophylaxis with Lovenox. Normal saline at 50 MLS per hour. The patient is seen today 03/01/2022 in follow-up on the regular medical floor. He is awake and alert in no acute distress. He is still having some abdominal discomfort. He is passing flatus and stool in the ostomy bag. He is tolerating a regular diet. Patient culture is positive for pseudomonas aeruginosa. The patient is a colonizer. He is currently on meropenem however this is resistant. He is maintaining good O2 saturation in the 90s on 4 L/m per nasal cannula. He is afebrile. Hemodynamically stable. Remains on Symbicort, DuoNeb inhalations. Adequate pain control. Objective - Vital Signs Vital signs: Vital Signs Temp 98.6 F 03/01/22 08:18 Pulse 94 03/01/22 11:16 Resp 20 03/01/22 08:18 BP 119/64 12/24/22 08:18 Pulse Ox 91 L 03/01/22 08:18 FiO2 36 02/21/22 00:31 Intake & Output 02/28/22 03/01/22 03/01/22 18:59 06:59 18:59 Intake Total 250 Output Total 900 600 Balance -650 -600 Weight 75.296 kg Intake: Oral 250 Output: Urine 800 600 Stool 100 Other: Voiding Method Urinal Urinal Urinal # Voids 2 - Exam GENERAL EXAM: Alert, 76-year-old male, on 4 L nasal cannula, fairly comfortable in no apparent distress. HEAD: Normocephalic. EYES: Normal reaction of pupils, equal size. NOSE: Nasogastric tube secured in place. Clear with pink turbinates. THROAT: No erythema or exudates. NECK: No masses, no JVD. CHEST: No chest wall deformity. LUNGS: Equal air entry with scattered rhonchi, crackles in the right lung base CVS: S1 and S2 normal with no audible murmur, regular rhythm. ABDOMEN: Some tenderness on palpation. Ostomy bag on the side of abdomen extending. SPINE: No scoliosis or deformity SKIN: No rashes CENTRAL NERVOUS SYSTEM: No focal deficits, tone is normal in all 4 extremities. EXTREMITIES: There is no peripheral edema. No clubbing, no cyanosis. Peripheral pulses are intact. - Labs CBC & Chem 7: 03/01/22 05:33 03/01/22 05:33 Labs: Abnormal Lab Results - Last 24 Hours (Table) 02/28/22 02/28/22 02/28/22 Range/Units 05:32 13:07 17:48 WBC (4.50-10.00) X 10*3/uL RBC (4.40-5.60) X 10*6/uL Hgb (13.0-17.0) g/dL Hct (39.6-50.0) % RDW (11.5-14.5) % Immature Gran # (0.00-0.04) X 10*3/uL Neutrophils # (1.80-7.70) X 10*3/uL Lymphocytes # (0.90-5.00) X 10*3/uL Monocytes # (0.20-1.00) X 10*3/uL Eosinophils # (0.04-0.35) X 10*3/uL Carbon Dioxide (20.0-27.5) mmol/L Anion Gap (10.00-18.00) mmol/L BUN (9.0-27.0) mg/dL Est GFR (CKD-EPI)NonAf (60.0-200.0) BUN/Creatinine Ratio (12.00-20.00) Ratio Glucose (70-110) mg/dL POC Glucose (mg/dL) 148 H 163 H (70-110) mg/dL Calcium (8.7-10.3) mg/dL Procalcitonin 0.38 H (0.02-0.09) ng/mL 03/01/22 03/01/22 03/01/22 Range/Units 00:13 05:33 05:33 WBC 10.63 H (4.50-10.00) X 10*3/uL RBC 2.62 L (4.40-5.60) X 10*6/uL Hgb 7.8 L (13.0-17.0) g/dL Hct 24.2 L (39.6-50.0) % RDW 14.9 H (11.5-14.5) % Immature Gran # 0.12 H (0.00-0.04) X 10*3/uL Neutrophils # 8.10 H (1.80-7.70) X 10*3/uL Lymphocytes # 0.88 L (0.90-5.00) X 10*3/uL Monocytes # 1.04 H (0.20-1.00) X 10*3/uL Eosinophils # 0.48 H (0.04-0.35) X 10*3/uL Carbon Dioxide 28.6 H (20.0-27.5) mmol/L Anion Gap 8.40 L (10.00-18.00) mmol/L BUN 49.4 H (9.0-27.0) mg/dL Est GFR (CKD-EPI)NonAf 57.6 L (60.0-200.0) BUN/Creatinine Ratio 41.17 H (12.00-20.00) Ratio Glucose 177 H (70-110) mg/dL POC Glucose (mg/dL) 195 H (70-110) mg/dL Calcium 8.5 L (8.7-10.3) mg/dL Procalcitonin (0.02-0.09) ng/mL 03/01/22 03/01/22 Range/Units 05:47 12:12 WBC (4.50-10.00) X 10*3/uL RBC (4.40-5.60) X 10*6/uL Hgb (13.0-17.0) g/dL Hct (39.6-50.0) % RDW (11.5-14.5) % Immature Gran # (0.00-0.04) X 10*3/uL Neutrophils # (1.80-7.70) X 10*3/uL Lymphocytes # (0.90-5.00) X 10*3/uL Monocytes # (0.20-1.00) X 10*3/uL Eosinophils # (0.04-0.35) X 10*3/uL Carbon Dioxide (20.0-27.5) mmol/L Anion Gap (10.00-18.00) mmol/L BUN (9.0-27.0) mg/dL Est GFR (CKD-EPI)NonAf (60.0-200.0) BUN/Creatinine Ratio (12.00-20.00) Ratio Glucose (70-110) mg/dL POC Glucose (mg/dL) 165 H 182 H (70-110) mg/dL Calcium (8.7-10.3) mg/dL Procalcitonin (0.02-0.09) ng/mL Microbiology - Last 24 Hours (Table) 02/26/22 20:45 Gram Stain - Final Sputum Sputum Culture - Final Pseudomonas aeruginosa Assessment and Plan Assessment: Small bowel obstruction with distal right lower quadrant transition point noted on computed tomography scan, Prior history of diverticulitis with perforation and bowel resection with colostomy placement. Status post exploratory laparotomy with lysis of adhesions, small bowel resection, repair of incisional hernia on 02/19/2022. Developed nausea and vomiting and required nasal tube reinsertion on 02/23/2022 and again subsequent removal. Ostomy functioning. Recovered and tolerating a regular diet today 03/01/2022 Recurrent pneumonia. The patient is having recurrent pneumonia/tracheobronchitis with recurrent pseudomonas. Currently on IV meropenem. 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 coli, MRSA Right upper lobe pulmonary nodule avid on the previous PET scan and this was active on a PET scan and the patient was treated with SBRT Right renal mass being followed up on outpatient basis Factor 5 Leyden mutation Previous history of left lower extremity DVT Hypertension Chronic stage III kidney disease History of colonic perforation requiring colectomy and colostomy. Obstructive sleep apnea not using CPAP therapy Diverticulosis with previous history of diverticulitis Multiple hepatic cysts Plan: The patient was seen and evaluated Medications and labs reviewed Remains on meropenem but resistant to pseudomonas ID service is on the case, may need to change to Zosyn Increase his activity as tolerated Titrate the FiO2 as tolerated Currently tolerating a regular diet We will continue to follow I have personally seen and examined the patient, performed the documentation and the assessment and plan as written. Number of minutes spent on the visit: 10.
--- NOTE | 2022-03-01 12:45 | P.PN ---
Progress Note - Text Progress Note Date: 03/01/22 Patient is resting in his bed. He is tolerating her diet. He is having stool through his colostomy. He still has a productive cough. On exam vital signs are stable. Abdomen soft incision is clean dry intact. Colostomy dysfunction. The patient is doing well from a surgical standpoint. However he will need IV antibody therapy for his pseudomonas infection of his lungs. When he is cleared by the medical team he'll be discharged.
--- NOTE | 2022-03-01 14:12 | P.PN ---
Subjective Progress Note Date: 03/01/22 Principal diagnosis: Pneumonia Patient is a 76 year old male with a past medical history significant for end-stage COPD patient did have a history of recurrent pneumonias recently did have a multidrug resistant Pseudomonas , admitted to the hospital abdominal pain diagnosed with a small bowel obstruction status post lysis of adhesions probable resection and repair of incisional hernia. On today's evaluation that is 03/01/2022, the patient remains to be afebrile, the patient continued to be complaining of shortness of breath and also having a cough with some thick purulent sputum, the patient abdominal pain has resolved no nausea or vomiting Objective - Vital Signs Vital signs: Vital Signs Temp 98.6 F 03/01/22 08:18 Pulse 94 03/01/22 11:16 Resp 20 03/01/22 08:18 BP 119/64 03/01/22 08:18 Pulse Ox 91 L 03/01/22 08:18 FiO2 36 02/21/22 00:31 Intake & Output 02/28/22 03/01/22 03/01/22 18:59 06:59 18:59 Intake Total 250 Output Total 900 600 Balance -650 -600 Weight 75.296 kg Intake: Oral 250 Output: Urine 800 600 Stool 100 Other: Voiding Method Urinal Urinal Urinal # Voids 2 - Exam GENERAL DESCRIPTION: An elderly male lying in bed in no distress RESPIRATORY SYSTEM: Unlabored breathing , coarse breath sounds bilaterally HEART: S1 S2 regular rate and rhythm , ABDOMEN: Soft , no tenderness EXTREMITIES: No edema feet - Labs CBC & Chem 7: 03/01/22 05:33 03/01/22 05:33 Labs: Abnormal Lab Results - Last 24 Hours (Table) 02/28/22 02/28/22 02/28/22 Range/Units 05:32 13:07 17:48 WBC (4.50-10.00) X 10*3/uL RBC (4.40-5.60) X 10*6/uL Hgb (13.0-17.0) g/dL Hct (39.6-50.0) % RDW (11.5-14.5) % Immature Gran # (0.00-0.04) X 10*3/uL Neutrophils # (1.80-7.70) X 10*3/uL Lymphocytes # (0.90-5.00) X 10*3/uL Monocytes # (0.20-1.00) X 10*3/uL Eosinophils # (0.04-0.35) X 10*3/uL Carbon Dioxide (20.0-27.5) mmol/L Anion Gap (10.00-18.00) mmol/L BUN (9.0-27.0) mg/dL Est GFR (CKD-EPI)NonAf (60.0-200.0) BUN/Creatinine Ratio (12.00-20.00) Ratio Glucose (70-110) mg/dL POC Glucose (mg/dL) 148 H 163 H (70-110) mg/dL Calcium (8.7-10.3) mg/dL Procalcitonin 0.38 H (0.02-0.09) ng/mL 03/01/22 03/01/22 03/01/22 Range/Units 00:13 05:33 05:33 WBC 10.63 H (4.50-10.00) X 10*3/uL RBC 2.62 L (4.40-5.60) X 10*6/uL Hgb 7.8 L (13.0-17.0) g/dL Hct 24.2 L (39.6-50.0) % RDW 14.9 H (11.5-14.5) % Immature Gran # 0.12 H (0.00-0.04) X 10*3/uL Neutrophils # 8.10 H (1.80-7.70) X 10*3/uL Lymphocytes # 0.88 L (0.90-5.00) X 10*3/uL Monocytes # 1.04 H (0.20-1.00) X 10*3/uL Eosinophils # 0.48 H (0.04-0.35) X 10*3/uL Carbon Dioxide 28.6 H (20.0-27.5) mmol/L Anion Gap 8.40 L (10.00-18.00) mmol/L BUN 49.4 H (9.0-27.0) mg/dL Est GFR (CKD-EPI)NonAf 57.6 L (60.0-200.0) BUN/Creatinine Ratio 41.17 H (12.00-20.00) Ratio Glucose 177 H (70-110) mg/dL POC Glucose (mg/dL) 195 H (70-110) mg/dL Calcium 8.5 L (8.7-10.3) mg/dL Procalcitonin (0.02-0.09) ng/mL 03/01/22 03/01/22 Range/Units 05:47 12:12 WBC (4.50-10.00) X 10*3/uL RBC (4.40-5.60) X 10*6/uL Hgb (13.0-17.0) g/dL Hct (39.6-50.0) % RDW (11.5-14.5) % Immature Gran # (0.00-0.04) X 10*3/uL Neutrophils # (1.80-7.70) X 10*3/uL Lymphocytes # (0.90-5.00) X 10*3/uL Monocytes # (0.20-1.00) X 10*3/uL Eosinophils # (0.04-0.35) X 10*3/uL Carbon Dioxide (20.0-27.5) mmol/L Anion Gap (10.00-18.00) mmol/L BUN (9.0-27.0) mg/dL Est GFR (CKD-EPI)NonAf (60.0-200.0) BUN/Creatinine Ratio (12.00-20.00) Ratio Glucose (70-110) mg/dL POC Glucose (mg/dL) 165 H 182 H (70-110) mg/dL Calcium (8.7-10.3) mg/dL Procalcitonin (0.02-0.09) ng/mL Microbiology - Last 24 Hours (Table) 02/26/22 20:45 Gram Stain - Final Sputum Sputum Culture - Final Pseudomonas aeruginosa Assessment and Plan (1) Pneumonia Current Visit: No Status: Acute Code(s): J18.9 - PNEUMONIA, UNSPECIFIED ORGANISM SNOMED Code(s): 078754950 Plan: 1patient with end-stage COPD this patient with a history of recurrent pneumonias and patient was getting treatment for multidrug resistant Pseudomonas pneumonia when he got admitted to the hospital for Bowel obstruction in this patient who is status post laparotomy lysis of adhesion repair of incisional hernia and small bowel resection patient becomes the gum or shortness of breath requiring supplemental oxygen concerning for possible pneumonia. 2sputum culture had been obtained and currently pending. 3patient did have mildly elevated pro calcitonin. 4patient sputum did grow pseudomonas that is resistant to meropenem but sensitive to Zosyn antibiotic will be switched over to Zosyn and will monitor his clinical course closely Time with Patient: Less than 30
[2022-03-01] MEDS: PIPERACILLIN-TAZOBACTAM 3.375 GM in SODIUM CHLORIDE 0.9% 100 ML IVPB SCH (16:00)
[2022-03-01] MEDS: MAGNESIUM OXIDE 400 MG TAB PO SCH (21:31)
[2022-03-02] MEDS: PIPERACILLIN-TAZOBACTAM 3.375 GM in SODIUM CHLORIDE 0.9% 100 ML IVPB SCH ×3 (00:38→17:41)
[2022-03-02] MEDS: HYDROmorphone 1 MG/ML 1 ML SYRINGE IVP PRN ×2 (04:23→22:00)
[2022-03-02] MEDS: SYMBICORT 80-4.5 MCG INHALER INHALATION SCH ×2 (07:54→20:05)
[2022-03-02] MEDS: IPRATROPIUM-ALBUTEROL 3 ML NEB INHALATION SCH ×4 (07:54→20:05)
[2022-03-02 09:36] LABS: Basophils # (A) 0.02 X 10*3/uL (0.00-0.10); Basophils % (A) 0.3 %; Eosinophils # (A) 0.44 X 10*3/uL (0.04-0.35); Eosinophils % (A) 5.5 %; HCT 25.2 % (39.6-50.0); HGB 7.9 g/dL (13.0-17.0); Immature Grans, Automated 1.9 %; Lymphocytes % (A) 12.5 %; MCH 29.5 pg (27.0-32.0); MCHC 31.3 g/dL (32.0-37.0); Mean Platelet Volume 12.3 fL (9.5-12.2); Monocytes # (A) 1.02 X 10*3/uL (0.20-1.00); Monocytes % (A) 12.8 %; NRBC Per 100 WBC 0 /100 WBCS (0.0-0.0); Neutrophils # (A) 5.34 X 10*3/uL (1.80-7.70); Platelet Count 329 X 10*3/uL (140-440); RBC 2.68 X 10*6/uL (4.40-5.60); RDW 14.9 % (11.5-14.5); WBC 7.97 X 10*3/uL (4.50-10.00)
[2022-03-02 09:42] LABS: Magnesium 1.9 mg/dL (1.5-2.4); Phosphorus 2.8 mg/dL (2.4-5.1)
[2022-03-02] MEDS: PANTOPRAZOLE 40 MG TABLET PO SCH (09:45)
[2022-03-02] MEDS: allopurinoL 100 MG TAB PO SCH (09:45)
[2022-03-02] MEDS: MONTELUKAST 10 MG TAB PO SCH (09:46)
[2022-03-02] MEDS: ENOXAPARIN 40 MG/0.4 ML SYRINGE SQ SCH (09:46)
[2022-03-02] MEDS: DOXAZOSIN 4 MG TAB PO SCH (09:46)
[2022-03-02] MEDS: guaiFENesin 600 MG TABLET.ER PO SCH ×2 (09:46→20:34)
[2022-03-02] MEDS: SIMETHICONE 40 MG/0.6 ML DROPS 2,000 MG/30 ML BOTTLE PO SCH ×4 (09:46→19:43)
[2022-03-02] MEDS: LACTOBACILLUS ACIDOPH & BULGAR 1 EACH PACKET PO SCH (09:46)
[2022-03-02] MEDS: METOPROLOL TARTRATE 25 MG TAB PO SCH ×2 (09:46→20:34)
--- NOTE | 2022-03-02 09:53 | XR ---
EXAMINATION TYPE: XR chest 1V portable DATE OF EXAM: 03/02/2022 Comparison: 02/27/2022, 08/30/2021. Clinical History: 76-year-old male SOB Findings: The heart is upper limits of normal in size. Low lung volumes. Small right foraminal pleural effusion s persist. Increasing adjacent patchy bibasilar opacities. 2.4 cm oval nodule projecting of the right upper lobe/lung cancer should be excluded. Impression: 1. Ongoing small right greater the left pleural effusions. Slight increasing adjacent bibasilar atele ctasis and/or consolidation. 2. Right upper lobe nodule appears larger compared to prior exam of 08/30/2021. Early lung cancer stan ins to be excluded. Appropriate pulmonary medicine follow-up recommended.
[2022-03-02 10:12] LABS: African American GFR (CKD) 61.7 (60.0-200.0); Anion Gap 5.9 mmol/L (10.00-18.00); BUN/Creat Ratio 33.44 Ratio (12.00-20.00); Blood Urea Nitrogen 42.8 mg/dL (9.0-27.0); Calcium 8.5 mg/dL (8.7-10.3); Carbon Dioxide 30.5 mmol/L (20.0-27.5); Non-African American GFR(CKD) 53.3 (60.0-200.0); Potassium 4.6 mmol/L (3.5-5.5)
--- NOTE | 2022-03-02 12:09 | P.PN ---
Progress Note - Text Progress Note Date: 03/02/22 The patient's complaint productive cough. On exam vital signs are stable. Abdomen soft. Incision is clean dry intact. Status post small bowel resection for small bowel obstruction. Patient is doing well from a surgical standpoint however his chronic Pseudomonas pneumonia is still causing pulmonary issues. The patient is not ready to be discharged due to his chronic pneumonia. Patient will be evaluated by the infectious disease services and pulmonary service.
--- NOTE | 2022-03-02 13:50 | P.PN ---
Subjective Progress Note Date: 03/02/22 Principal diagnosis: Small bowel obstruction, postoperative ileus. This is a 76-year-old male who is very well-known to me, hospitalized on multiple occasions for pneumonia with gram-negative most recent infection was related to Pseudomonas and the patient was taken off the patient antibiotics with IV meropenem. The patient has history of COPD, lung mass that was treated with SBR T and history of tracheal bronchomalacia. He has had multiple pneumonias and multiple hospitalizations in the past for the same. During the most recent hospitalization of jan 2022, the patient was treated for a recurrent Pseudomonas pneumonia Note that the patient has had previous infections with Pseudomonas, stenotrophomonas, and MRSA. The patient came into the ED with complaints of diffuse abdominal pain but more in the right lower abdomen. Patient reports that his abdominal pain started Thursday morning. The pain came on suddenly. He'd been nauseated and having acid reflux. She reports that his ostomy output had decreased he was still making a small amount of stool through his ostomy. But has stopped having any flatus over the last couple a days. Patient does have a prior history of diverticulitis with perforation requiring bowel resection with colostomy placement in March 2021 in [place]. He also has a past surgical history of a right inguinal hernia repair. Patient had a computed tomography scan abdomen and pelvis showing a small bowel obstruction. NG tube is being placed in the ER. History of a pulmonary lung nodule requiring radiation treatment. He does have factor V Leiden mutation. The patient is seen today 02/18/2022 in follow-up on the regular medical floor. He is currently sitting up at the bedside. Awake and alert in no acute distress. Nasogastric tube remains in place. Still with very minimal output of the ostomy. White count 15.0. Hemoglobin 10.0. Sodium 139. Potassium 4.8. BUN 38. Creatinine 1.7. He is continued on DuoNeb inhalations, Symbicort, Singulair. Heparin for DVT prophylaxis. Surgical services are on the case. He is currently on antibiotics in the form of meropenem. The patient is seen today 02/19/2022 in follow-up. He did undergo a exploratory laparotomy with lysis of adhesions with Dr. Maribel laguna. He tolerated the procedure well. His back in the regular medical floor. He is maintaining good O2 saturations in the 90s on 2 L/m per nasal cannula. Afebrile. Hemodynamically stable. White count 14.5. Hemoglobin 9.8. Sodium 139. Potassium 4.3. Chloride 108. Bicarb 22. BUN 39. Creatinine 1.46. Glucose 69. The patient is seen today 02/20/2022 in follow-up on the regular medical floor. He is postoperative day #1. He did undergo extensive lysis of adhesions, small bowel resection and repair of incisional hernia. He is awake and alert. he is maintaining O2 saturations in the low 90s on 4 L/m per nasal cannula. There is a small amount of stool in his ostomy. White count 9.9. Hemoglobin 9.7. Sodium 142. Potassium 4.7. Bicarb 21. BUN 56. Creatinine 1.88. Glucose 103. He is working with the incentive spirometer. He is continued on DuoNeb inhalations, Symbicort, Mucinex, Singulair. He is on antibiotics in the form of meropenem. 02/21/2022, Anival is doing well. He remains nothing by mouth. NG tube is in place and there are plans to remove the NG tube today. The colostomy site has without some minimal amount of output. Surgical once is striking and intact. He has a congested cough. he is bringing minimal amount of sputum. He remains on IV meropenem regarding recurrent pseudomonal pneumonias. Note that the patient underwent an extensive surgery which involved last of adhesions, small bowel resection and repair of an incisional hernia. He had complete bowel obstruction. He remains on Lovenox portably prophylaxis. Remains on bronchodilators. Incentive spirometer and flutter valve at the bedside. Labs from today are still pending. Creatinine from yesterday was 1.88 with a BUN of 56 and a sodium level of 142. Normocytic on is down to 9.9. He is awake and alert and sitting up on a chair is postop day #2. On 02/22/2022, the patient is sitting up on a chair. He has a congested cough. He remains on IV meropenem. Limited activity and his colostomy bag. Bowel sounds are still hypoactive. Surgical once is striking and intact. NG tube was removed. His taken no chills. No new complaints. White cell count is at 8.8 with a hemoglobin of 9.4. BUN is at 66 with a creatinine of 1.7 and sodium level is at 141. He is ambulating without a walker. On today's evaluation of 02/23/2022, the patient denies having any nausea and vomiting. GI surgeries on the case regarding the progress of the surgery. NG tube remains out. The bowel function has not returned yet. The patient is taking anxious. He is active. He is having total for pain control. Restasis as remains stable and the patient remains on IV meropenem. Remains on DuoNeb about treatments [id number]. Using incentive spirometer. Blood work from today shows that the dermis count is at 7.4 with a hemoglobin drop 9.5. BUN is at 61 with a creatinine 1.6 and a sodium level is at 144. The patient is seen today 02/24/2022 in follow-up on the regular medical floor. He is currently resting fairly comfortably in bed. He is awake and alert in no acute distress. He is having some ongoing issues with abdominal discomfort. He was having episodes of nausea and vomiting last night and a nasogastric tube was reinserted. He is maintaining good O2 saturation in the 90s on 4 L/m per nasal cannula. He is afebrile. Hemodynamically stable. Most recent chest x-ray still revealing a right lower lobe opacities. Sodium 145. Potassium 3.9. BUN 67. Creatinine 1.49. ProBNP 1400. The patient is continued on Symbicort, DuoNeb inhalations. Antibiotics in the form of meropenem. DVT prophylaxis with Lovenox. Normal saline at 50 MLS per hour. Evaluating this patient on 02/25/2022 on a regular medical floor. He appears fairly comfortable. NG tube remains in place to low intermittent suction. No more episodes of nausea and vomiting. Although, the abdomen is lead oxide mill tender to palpation. Abdominal CT from yesterday shows postoperative ileus, and small bila teral pleural effusions. Surgery is still on the case. His oxygen saturation is adequate on 4 L nasal cannula. Patient denies shortness of breath. He still has a congested productive cough. No new CBC today. BMP shows sodium 143, potassium 3.7, chloride 108, serum CO2 35, BUN 62, creatinine 1.47, glucose 161. He is receiving PPN at 80 ml/hr. He is receiving DuoNeb 4 times a day and Symbicort inhaler. DVT prophylaxis with Lovenox, and GI prophylaxis with Protonix. Evaluating this patient today on 02/26/2022, on regular medical floor. His abdominal tenderness has slightly improved over the last 24 hours. His NG tube remains to low intermittent suction, and he denies any nausea or vomiting . Receiving TPN at 80 ML's per hour through left upper arm PICC. Patient reports small amount of air an ostomy pouch. Surgery continues to follow this patient daily. From respiratory standpoint, patient remains on 4 L nasal cannula. He denies any respiratory distress. He does have a congested, nonproductive cough and is receiving Mucinex. Incentive spirometer is at bedside. He remains afebrile. CBC count from today reveals no leukocytosis. WBC count 9, in [place] 8.8, hematocrit 29, platelet 250,000. BMP from today is stable sodium 142, potassium 3.6, chloride 108, serum CO2 31, BUN 59, serum creatinine 1.21, glucose 180. Maintained empirically on meropenem. Continues receiving DuoNeb nebulization and Symbicort inhaler. Receiving Lovenox for DVT prophylaxis and Protonix for GI prophylaxis. Overall condition is slightly improved from yesterday. I'm reevaluating this patient today on 02/27/2022. He remains on a general medical floor. He is still on 4 L nasal cannula, and denies any respiratory distress. Sputum culture is pending. He continues to have a congested nonproductive cough receiving Mucinex. He has a flutter valve and incentive spirometer at bedside. His abdominal tenderness continues to improve, and he has not had any further nausea or vomiting. His NG tube was discontinued by surgery, and he was started on a clear liquid diet. He continues to's receiving supplemental nutrition in the form of TPN at 80 ML's per hour through a left upper arm PICC. Patient has small amount of air and stool in his ostomy pouch. Surgery is still following this patient. No CBC from today. BMP is stable sodium 140, potassium 3.7, chloride 108, serum CO2 33, BUN 55, creatinine 1.18, glucose 164. Continues receiving DuoNeb nebulization and Symbicort inhaler. Receiving Lovenox for DVT prophylaxis and Protonix for GI prophylaxis. Reevaluated today on 03/02/22, yesterday patient had sputum culture positive for Pseudomonas which is resistant to Merrem, patient is now on Zosyn. Doing well, continues to gradually improve, continues to have intermittent episode of vague abdominal pain, intermittent cough, intermittent wheezing, overall the patient is slowly getting better. Objective - Vital Signs Vital signs: Vital Signs Temp 98.1 F 03/02/22 12:10 Pulse 65 03/02/22 12:10 Resp 18 03/02/22 12:10 BP 93/54 03/02/22 12:10 Pulse Ox 94 L 03/02/22 12:10 FiO2 36 02/21/22 00:31 Intake & Output 03/01/22 03/02/22 03/02/22 18:59 06:59 18:59 Intake Total 100 Output Total 150 350 50 Balance -50 -350 -50 Intake: Intake, IV Titration 100 Amount Piperacillin-Tazobactam 3 100 .375 gm In Sodium Chloride 0.9% 100 ml @ 25 mls/hr IVPB Q8HR [facility] Rx# :[id number] Output: Urine 150 200 Stool 100 50 Urine/Stool Mix 50 Other: Voiding Method Urinal Urinal Urinal # Voids 0 # Bowel Movements 0 - Exam GENERAL EXAM: Alert, 76-year-old male, on 4 L nasal cannula, fairly comfortable in no apparent distress. HEAD: Normocephalic. EYES: Normal reaction of pupils, equal size. THROAT: No erythema or exudates. NECK: No masses, no JVD. CHEST: No chest wall deformity. LUNGS: Fine crackles at the right base CVS: S1 and S2 normal with no audible murmur, regular rhythm. ABDOMEN: Soft, slightly tender, colostomy bag is functioning SPINE: No scoliosis or deformity SKIN: No rashes CENTRAL NERVOUS SYSTEM: No focal deficits, tone is normal in all 4 extremities. EXTREMITIES: There is no peripheral edema. No clubbing, no cyanosis. Pe ripheral pulses are intact. - Labs CBC & Chem 7: 03/02/22 05:46 03/02/22 05:46 Labs: Abnormal Lab Results - Last 24 Hours (Table) 03/02/22 03/02/22 Range/Units 05:46 05:46 RBC 2.68 L (4.40-5.60) X 10*6/uL Hgb 7.9 L (13.0-17.0) g/dL Hct 25.2 L (39.6-50.0) % MCHC 31.3 L (32.0-37.0) g/dL RDW 14.9 H (11.5-14.5) % MPV 12.3 H (9.5-12.2) fL Immature Gran # 0.15 H (0.00-0.04) X 10*3/uL Monocytes # 1.02 H (0.20-1.00) X 10*3/uL Eosinophils # 0.44 H (0.04-0.35) X 10*3/uL Carbon Dioxide 30.5 H (20.0-27.5) mmol/L Anion Gap 5.90 L (10.00-18.00) mmol/L BUN 42.8 H (9.0-27.0) mg/dL Est GFR (CKD-EPI)NonAf 53.3 L (60.0-200.0) BUN/Creatinine Ratio 33.44 H (12.00-20.00) Ratio Calcium 8.5 L (8.7-10.3) mg/dL Microbiology - Last 24 Hours (Table) 02/26/22 20:45 Gram Stain - Final Sputum Sputum Culture - Final Pseudomonas aeruginosa Assessment and Plan Assessment: Impression: Small bowel obstruction with distal right lower quadrant transition point noted on computed tomography scan, Prior history of diverticulitis with perforation and bowel resection with colostomy placement. Status post exploratory laparotomy with lysis of adhesions, small bowel resection, repair of incisional hernia on 02/19/2022. Developed nausea and vomiting and required nasal tube reinsertion on 02/23/2022 and again subsequent removal. Ostomy functioning. Recovered and tolerating a regular diet today 03/01/2022 Recurrent pneumonia. The patient is having recurrent pneumoni a/tracheobronchitis with recurrent pseudomonas. Currently on IV Zosyn Right-sided pleural effusion with patchy consolidation of the right lower lobe chronic hypoxic respiratory failure currently on 2 L of O2 nasal cannula COPD maintain on Trelegy Ellipta on an outpatient basis Tracheobronchomalacia Recurrent respiratory tract infection with pseudomonas aeruginosa, E. coli, MRSA Right upper lobe pulmonary nodule avid on the previous PET scan and this was active on a PET scan and the patient was treated with SBRT Right renal mass being followed up on outpatient basis Factor 5 Leyden mutation Previous history of left lower extremity DVT Hypertension Chronic stage III kidney disease History of colonic perforation requiring colectomy and colostomy. Obstructive sleep apnea not using CPAP therapy Diverticulosis with previous history of diverticulitis Multiple hepatic cysts Plan: Tinea Zosyn Medications and labs reviewed no changes. Increase his activity as tolerated Titrate the FiO2 as tolerated Currently tolerating a regular diet We will continue to follow Time with Patient: Less than 30
--- NOTE | 2022-03-02 15:38 | P.PN ---
Subjective Progress Note Date: 03/02/22 Principal diagnosis: Pneumonia Patient is a 76 year old male with a past medical history significant for end-stage COPD patient did have a history of recurrent pneumonias recently did have a multidrug resistant Pseudomonas , admitted to the hospital abdominal pain diagnosed with a small bowel obstruction status post lysis of adhesions probable resection and repair of incisional hernia. On today's evaluation that is 03/02/2022, the patient continues to be afebrile, the patient is breathing slightly comfortably on 4 L nasal cannula, the patient continued to have a cough with some thick purulent sputum, the patient abdominal pain has resolved no nausea or vomiting Objective - Vital Signs Vital signs: Vital Signs Temp 98.1 F 03/02/22 12:10 Pulse 65 03/02/22 12:10 Resp 18 03/02/22 12:10 BP 93/54 03/02/22 12:10 Pulse Ox 94 L 03/02/22 12:10 FiO2 36 02/21/22 00:31 Intake & Output 03/01/22 03/02/22 03/02/22 18:59 06:59 18:59 Intake Total 100 Output Total 150 350 50 Balance -50 -350 -50 Intake: Intake, IV Titration 100 Amount Piperacillin-Tazobactam 3 100 .375 gm In Sodium Chloride 0.9% 100 ml @ 25 mls/hr IVPB Q8HR [facility] Rx# :[id number] Output: Urine 150 200 Stool 100 50 Urine/Stool Mix 50 Other: Voiding Method Urinal Urinal Urinal # Voids 0 # Bowel Movements 0 - Exam GENERAL DESCRIPTION: An elderly male lying in bed in no distress RESPIRATORY SYSTEM: Unlabored breathing , coarse breath sounds bilaterally HEART: S1 S2 regular rate and rhythm , ABDOMEN: Soft , no tenderness EXTREMITIES: No edema feet - Labs CBC & Chem 7: 03/02/22 05:46 03/02/22 05:46 Labs: Abnormal Lab Results - Last 24 Hours (Table) 03/02/22 03/02/22 Range/Units 05:46 05:46 RBC 2.68 L (4.40-5.60) X 10*6/uL Hgb 7.9 L (13.0-17.0) g/dL Hct 25.2 L (39.6-50.0) % MCHC 31.3 L (32.0-37.0) g/dL RDW 14.9 H (11.5-14.5) % MPV 12.3 H (9.5-12.2) fL Immature Gran # 0.15 H (0.00-0.04) X 10*3/uL Monocytes # 1.02 H (0.20-1.00) X 10*3/uL Eosinophils # 0.44 H (0.04-0.35) X 10*3/uL Carbon Dioxide 30.5 H (20.0-27.5) mmol/L Anion Gap 5.90 L (10.00-18.00) mmol/L BUN 42.8 H (9.0-27.0) mg/dL Est GFR (CKD-EPI)NonAf 53.3 L (60.0-200.0) BUN/Creatinine Ratio 33.44 H (12.00-20.00) Ratio Calcium 8.5 L (8.7-10.3) mg/dL Microbiology - Last 24 Hours (Table) 02/26/22 20:45 Gram Stain - Final Sputum Sputum Culture - Final Pseudomonas aeruginosa Assessment and Plan (1) Pneumonia Current Visit: No Status: Acute Code(s): J18.9 - PNEUMONIA, UNSPECIFIED ORGANISM SNOMED Code(s): 799019801 Plan: 1patient with end-stage COPD this patient with a history of recurrent pneumonias and patient was getting treatment for multidrug resistant Pseudomonas pneumonia when he got admitted to the hospital for Bowel obstruction in this patient who is status post laparotomy lysis of adhesion repair of incisional hernia and small bowel resection patient becomes the gum or shortness of breath requiring supplemental oxygen concerning for possible pneumonia. 2sputum culture had been obtained and currently pending. 3patient did have mildly elevated pro calcitonin. 4patient sputum did grow pseudomonas that is resistant to meropenem but sensitive to Zosyn, patient to continue with the Zosyn and will monitor clinical course closely Time with Patient: Less than 30
--- NOTE | 2022-03-02 16:13 | PN ---
PROGRESS NOTE DATE OF SERVICE: 03/01/2022 SUBJECTIVE: This is a 76-year-old gentleman, who was admitted with small bowel resection, also had respiratory difficulties. The patient is being closely monitored. No chest pain. No palpitations. No fever. OBJECTIVE: VITAL SIGNS: Pulse is 93, blood pressure 119/64, respirations 20. HEENT: Conjunctivae are normal. NECK: No jugular venous distention. CARDIOVASCULAR: S1 and S2. RESPIRATORY: Breath sounds diminished at the bases. Few scattered rhonchi. ABDOMEN: Soft. LABORATORY DATA: Hemoglobin 7.8. The rest of the labs are noted. ASSESSMENT: 1. Status post small bowel resection for small bowel obstruction. 2. Congestive heart failure acute exacerbation with acute hypoxic respiratory failure. 3. Right basilar pneumonia. 4. Chronic obstructive pulmonary disease. 5. Chronic hypoxic respiratory failure. 6. Factor V Leiden mutation. 7. Multiple medical issues. RECOMMENDATIONS: Recommend to continue current medications and symptomatic treatment. Otherwise, PT and OT evaluation. Closely follow with Pulmonary. Guarded prognosis because of the multiple complex medical issues. See orders for the details. Further recommendations to follow. MMODL / IJN: [id number] /
[2022-03-02] MEDS: MAGNESIUM OXIDE 400 MG TAB PO SCH (20:34)
[2022-03-03] MEDS: PIPERACILLIN-TAZOBACTAM 3.375 GM in SODIUM CHLORIDE 0.9% 100 ML IVPB SCH ×3 (00:01→16:15)
--- NOTE | 2022-03-03 03:25 | PN ---
PROGRESS NOTE DATE OF SERVICE: 03/02/2022 SUBJECTIVE: This 76-year-old gentleman was admitted with small bowel obstruction, also had respiratory difficulties. The patient is being closely monitored. No chest pain. No palpitation. The most recent chest x-ray, which I reviewed personally, showed pleural effusion and nodular changes. OBJECTIVE: VITAL SIGNS: Pulse is 88, blood pressure 115/60, respiration 20. CHEST: A few scattered rhonchi. ABDOMEN: Soft. NERVOUS SYSTEM: No focal deficits. LABORATORY DATA: Hemoglobin 7.9. The rest of the labs reviewed. ASSESSMENT: 1. Status post small bowel resection for small-bowel obstruction. 2. Congestive heart failure acute exacerbation with acute hypoxic respiratory failure. 3. Right basilar pneumonia. 4. Chronic obstructive pulmonary disease. 5. Chronic hypoxic respiratory failure. 6. Factor 5 Leiden mutation. 7. Multiple medical issues. RECOMMENDATIONS: Recommend to continue current medications and symptomatic PT, OT evaluation. Closely follow with multiple consultants. Possible ECF rehab. Further recommendations to follow. Repeat labs will be ordered. MMROLANDL / CONCHAN: [id number] /
[2022-03-03] MEDS: ENOXAPARIN 40 MG/0.4 ML SYRINGE SQ SCH (08:45)
[2022-03-03] MEDS: IPRATROPIUM-ALBUTEROL 3 ML NEB INHALATION SCH ×4 (08:57→19:14)
[2022-03-03] MEDS: SYMBICORT 80-4.5 MCG INHALER INHALATION SCH ×2 (08:57→19:15)
[2022-03-03 09:22] LABS: African American GFR (CKD) 55.9 (60.0-200.0); Anion Gap 8.2 mmol/L (10.00-18.00); BUN/Creat Ratio 25.97 Ratio (12.00-20.00); Basophils # (A) 0.02 X 10*3/uL (0.00-0.10); Basophils % (A) 0.3 %; Blood Urea Nitrogen 36.1 mg/dL (9.0-27.0); Calcium 8.6 mg/dL (8.7-10.3); Carbon Dioxide 30.2 mmol/L (20.0-27.5); Eosinophils # (A) 0.38 X 10*3/uL (0.04-0.35); Eosinophils % (A) 5.4 %; HCT 25.1 % (39.6-50.0); Immature Grans, Automated 1.3 %; Lymphocytes # (A) 1.04 X 10*3/uL (0.90-5.00); Lymphocytes % (A) 14.7 %; MCH 30.8 pg (27.0-32.0); MCHC 31.9 g/dL (32.0-37.0); MCV 96.5 fL (80.0-97.0); Mean Platelet Volume 12.5 fL (9.5-12.2); Monocytes # (A) 0.92 X 10*3/uL (0.20-1.00); NRBC Per 100 WBC 0 /100 WBCS (0.0-0.0); Neutrophils # (A) 4.62 X 10*3/uL (1.80-7.70); Neutrophils % (A) 65.3 %; Non-African American GFR(CKD) 48.2 (60.0-200.0); Platelet Count 367 X 10*3/uL (140-440); Potassium 4.7 mmol/L (3.5-5.5); RDW 14.9 % (11.5-14.5); WBC 7.07 X 10*3/uL (4.50-10.00)
--- NOTE | 2022-03-03 12:22 | P.PN ---
Progress Note - Text Progress Note Date: 03/03/22 The patient states he feels better today. He is doing well from his abdominal surgery aspect. However his lungs remain an issue. A pair of on exam vital signs are stable. Abdomen soft. Incisions clean dry intact. Colostomy function well. Patient appears to have have less upper rectum, today. Patient to receive IV antibiotics for his chronic Pseudomonas pneumonia.
--- NOTE | 2022-03-03 12:55 | FL ---
EXAMINATION TYPE: FL barium swallow w video DATE OF EXAM: 03/03/2022 CLINICAL HISTORY: 76-year-old male possible aspiration, patient on nectar thickened consistencies, Dy sphagia. TECHNIQUE: Deglutition study is performed utilizing thin liquid barium, nectar thick liquid barium, barium thick pudding, and barium coated cracker. COMPARISON: None. Total fluoroscopy time: 1 minute 30 seconds. Total images: None. Real-time fluoroscopy support was provided to speech pathology. FINDINGS: The oral and pharyngeal phases show satisfactory initiation and propagation with all modalities teste d. There is silent aspiration with thin liquids. Single episode of transient penetration with nectar consistency. No other penetration or aspiration is seen. No significant pharyngeal residue was appre ciated. IMPRESSION: Silent aspiration with thin liquids. Please refer to speech therapist notes for further details if n ecessary.
[2022-03-03] MEDS: CHOLECALCIFEROL 25 MCG (1000 IU) TABLET PO SCH (13:04)
[2022-03-03] MEDS: METOPROLOL TARTRATE 25 MG TAB PO SCH ×2 (13:05→22:09)
[2022-03-03] MEDS: PANTOPRAZOLE 40 MG TABLET PO SCH (13:05)
[2022-03-03] MEDS: guaiFENesin 600 MG TABLET.ER PO SCH ×2 (13:05→22:07)
[2022-03-03] MEDS: MONTELUKAST 10 MG TAB PO SCH (13:05)
[2022-03-03] MEDS: LACTOBACILLUS ACIDOPH & BULGAR 1 EACH PACKET PO SCH ×2 (13:05→13:12)
[2022-03-03] MEDS: ASCORBIC ACID 500 MG TAB PO SCH (13:05)
[2022-03-03] MEDS: DOXAZOSIN 4 MG TAB PO SCH (13:05)
[2022-03-03] MEDS: allopurinoL 100 MG TAB PO SCH (13:05)
[2022-03-03] MEDS: SIMETHICONE 40 MG/0.6 ML DROPS 2,000 MG/30 ML BOTTLE PO SCH ×4 (13:05→22:22)
--- NOTE | 2022-03-03 13:53 | P.PN ---
Subjective Progress Note Date: 03/03/22 This is a 76-year-old male who is very well-known to me, hospitalized on multiple occasions for pneumonia with gram-negative most recent infection was related to Pseudomonas and the patient was taken off the patient antibiotics with IV meropenem. The patient has history of COPD, lung mass that was treated with SBR T and history of tracheal bronchomalacia. He has had multiple pneumonias and multiple hospitalizations in the past for the same. During the most recent hospitalization of jan 2022, the patient was treated for a recurrent Pseudomonas pneumonia Note that the patient has had previous infections with Pseudomonas, stenotrophomonas, and MRSA. The patient came into the ED with complaints of diffuse abdominal pain but more in the right lower abdomen. Patient reports that his abdominal pain started Thursday morning. The pain came on suddenly. He'd been nauseated and having acid reflux. She reports that his ostomy output had decreased he was still making a small amount of stool through his ostomy. But has stopped having any flatus over the last couple a days. Patient does have a prior history of diverticulitis with perforation requiring bowel resection with colostomy placement in March 2021 in [place]. He also has a past surgical history of a right inguinal hernia repair. Patient had a computed tomography scan abdomen and pelvis showing a small bowel obstruction. NG tube is being placed in the ER. History of a pulmonary lung nodule requiring radiation treatment. He does have factor V Leiden mutation. The patient is seen today 02/18/2022 in follow-up on the regular medical floor. He is currently sitting up at the bedside. Awake and alert in no acute distr ess. Nasogastric tube remains in place. Still with very minimal output of the ostomy. White count 15.0. Hemoglobin 10.0. Sodium 139. Potassium 4.8. BUN 38. Creatinine 1.7. He is continued on DuoNeb inhalations, Symbicort, Singulair. Heparin for DVT prophylaxis. Surgical services are on the case. He is currently on antibiotics in the form of meropenem. The patient is seen today 02/19/2022 in follow-up. He did undergo a exploratory laparotomy with lysis of adhesions with Dr. Maribel laguna. He tolerated the procedure well. His back in the regular medical floor. He is maintaining good O2 saturations in the 90s on 2 L/m per nasal cannula. Afebrile. Hemodynamically stable. White count 14.5. Hemoglobin 9.8. Sodium 139. Potassium 4.3. Chloride 108. Bicarb 22. BUN 39. Creatinine 1.46. Glucose 69. The patient is seen today 02/20/2022 in follow-up on the regular medical floor. He is postoperative day #1. He did undergo extensive lysis of adhesions, small bowel resection and repair of incisional hernia. He is awake and alert. he is maintaining O2 saturations in the low 90s on 4 L/m per nasal cannula. There is a small amount of stool in his ostomy. White count 9.9. Hemoglobin 9.7. Sodium 142. Potassium 4.7. Bicarb 21. BUN 56. Creatinine 1.88. Glucose 103. He is working with the incentive spirometer. He is continued on DuoNeb inhalations, Symbicort, Mucinex, Singulair. He is on antibiotics in the form of meropenem. 02/21/2022, Anival is doing well. He remains nothing by mouth. NG tube is in place and there are plans to remove the NG tube today. The colostomy site has without some minimal amount of output. Surgical once is striking and intact. He has a congested cough. he is bringing minimal amount of sputum. He remains on IV meropenem regarding recurrent pseudomonal pneumonias. Note that the patient underwent an extensive surgery which involved last of adhesions, small bowel resection and repair of an incisional hernia. He had complete bowel obstruction. He remains on Lovenox portably prophylaxis. Remains on bronchodilators. Incentive spirometer and flutter valve at the bedside. Labs from today are still pending. Creatinine from yesterday was 1.88 with a BUN of 56 and a sodium level of 142. Normocytic on is down to 9.9. He is awake and alert and sitting up on a chair is postop day #2. On 02/22/2022, the patient is sitting up on a chair. He has a congested cough. He remains on IV meropenem. Limited activity and his colostomy bag. Bowel sounds are still hypoactive. Surgical once is striking and intact. NG tube was removed. His taken no chills. No new complaints. White cell count is at 8.8 with a hemoglobin of 9.4. BUN is at 66 with a creatinine of 1.7 and sodium level is at 141. He is ambulating without a walker. On today's evaluation of 02/23/2022, the patient denies having any nausea and vomiting. GI surgeries on the case regarding the progress of the surgery. NG tube remains out. The bowel function has not returned yet. The patient is taking anxious. He is active. He is having total for pain control. Restasis as remains stable and the patient remains on IV meropenem. Remains on DuoNeb about treatments [id number]. Using incentive spirometer. Blood work from today shows that the dermis count is at 7.4 with a hemoglobin drop 9.5. BUN is at 61 with a creatinine 1.6 and a sodium level is at 144. The patient is seen today 02/24/2022 in follow-up on the regular medical floor. He is currently resting fairly comfortably in bed. He is awake and alert in no acute distress. He is having some ongoing issues with abdominal discomfort. He was having episodes of nausea and vomiting last night and a nasogastric tube was reinserted. He is maintaining good O2 saturation in the 90s on 4 L/m per nasal cannula. He is afebrile. Hemodynamically stable. Most recent chest x-ray still revealing a right lower lobe opacities. Sodium 145. Potassium 3.9. BUN 67. Creatinine 1.49. ProBNP 1400. The patient is continued on Symbicort, DuoNeb inhalations. Antibiotics in the form of meropenem. DVT prophylaxis with Lovenox. Normal saline at 50 MLS per hour. The patient is seen today 03/01/2022 in follow-up on the regular medical floor. He is awake and alert in no acute distress. He is still having some abdominal discomfort. He is passing flatus and stool in the ostomy bag. He is tolerating a regular diet. Patient culture is positive for pseudomonas aeruginosa. The patient is a colonizer. He is currently on meropenem however this is resistant. He is maintaining good O2 saturation in the 90s on 4 L/m per nasal cannula. He is afebrile. Hemodynamically stable. Remains on Symbicort, DuoNeb inhalations. Adequate pain control. The patient is seen today 03/03/2022 in follow-up on the regular medical floor. He is currently resting fairly comfortably in bed. Awake and alert in no acute distress. Currently maintaining good O2 saturations in the 90s on 4 L/m per nasal cannula. He is afebrile. Hemodynamically stable. Barium swallow today reveals silent aspiration with thin liquids. Single episode of transient penetration with nectar consistency. No other penetration or aspiration is seen. Patient's therapy recommending continuation of a dysphagia III, chopped texture diet. Colostomy continues to function well. White count 7.0. Hem oglobin 8.0. Platelets 367. Sodium 140. Potassium 4.7. BUN 36. Creatinine 1.4. Glucose 75. He remains on Symbicort, DuoNeb inhalations. Antibiotics in the form of Zosyn. Lovenox for DVT prophylaxis. Objective - Vital Signs Vital signs: Vital Signs Temp 98.2 F 03/03/22 07:16 Pulse 90 03/03/22 09:11 Resp 19 03/03/22 07:16 BP 106/59 03/03/22 07:16 Pulse Ox 94 L 03/03/22 07:16 FiO2 36 02/21/22 00:31 Intake & Output 03/02/22 03/03/22 03/03/22 18:59 06:59 18:59 Intake Total 240 100 Output Total 450 800 100 Balance -210 -700 -100 Intake: Intake, IV Titration 100 Amount Piperacillin-Tazobactam 3 100 .375 gm In Sodium Chloride 0.9% 100 ml @ 25 mls/hr IVPB Q8HR [facility] Rx# :[id number] Oral 240 Output: Urine 400 600 Stool 50 200 100 Other: Voiding Method Urinal Urinal # Voids 0 # Bowel Movements 1 1 - Exam GENERAL EXAM: Alert, 76-year-old male, resting in bed, on 4 L nasal cannula, fairly comfortable in no apparent distress. HEAD: Normocephalic. EYES: Normal reaction of pupils, equal size. NOSE: Nasogastric tube secured in place. Clear with pink turbinates. THROAT: No erythema or exudates. NECK: No masses, no JVD. CHEST: No chest wall deformity. LUNGS: Equal air entry with scattered rhonchi, crackles in the right lung base CVS: S1 and S2 normal with no audible murmur, regular rhythm. ABDOMEN: Some tenderness on palpation. Ostomy bag on the side of abdomen, functional. SPINE: No scoliosis or deformity SKIN: No rashes CENTRAL NERVOUS SYSTEM: No focal deficits, tone is normal in all 4 extremities. EXTREMITIES: There is no peripheral edema. No clubbing, no cyanosis. Peripheral pulses are intact. - Labs CBC & Chem 7: 03/03/22 05:12 03/03/22 05:12 Labs: Abnormal Lab Results - Last 24 Hours (Table) 03/03/22 03/03/22 Range/Units 05:12 05:12 RBC 2.60 L (4.40-5.60) X 10*6/uL Hgb 8.0 L (13.0-17.0) g/dL Hct 25.1 L (39.6-50.0) % MCHC 31.9 L (32.0-37.0) g/dL RDW 14.9 H (11.5-14.5) % MPV 12.5 H (9.5-12.2) fL Immature Gran # 0.09 H (0.00-0.04) X 10*3/uL Eosinophils # 0.38 H (0.04-0.35) X 10*3/uL Carbon Dioxide 30.2 H (20.0-27.5) mmol/L Anion Gap 8.20 L (10.00-18.00) mmol/L BUN 36.1 H (9.0-27.0) mg/dL Est GFR (CKD-EPI)AfAm 55.9 L (60.0-200.0) Est GFR (CKD-EPI)NonAf 48.2 L (60.0-200.0) BUN/Creatinine Ratio 25.97 H (12.00-20.00) Ratio Calcium 8.6 L (8.7-10.3) mg/dL Assessment and Plan Assessment: Small bowel obstruction with distal right lower quadrant transition point noted on computed tomography scan, Prior history of diverticulitis with perforation and bowel resection with colostomy placement. Status post exploratory laparotomy with lysis of adhesions, small bowel resection, repair of incisional hernia on 02/19/2022. Developed nausea and vomiting and required nasal tube reinsertion on 02/23/2022 and again subsequent removal. Ostomy functioning. Recovered and tolerating a dysphagia 3 chopped diet today 03/03/2022 Recurrent pneumonia. The patient is having recurrent pneumonia/tracheobronchitis with recurrent pseudomonas. Currently on Zosyn. 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 coli, MRSA Right upper lobe pulmonary nodule avid on the previous PET scan and this was active on a PET scan and the patient was treated with SBRT Right renal mass being followed up on outpatient basis Factor 5 Leyden mutation Previous history of left lower extremity DVT Hypertension Chronic stage III kidney disease History of colonic perforation requiring colectomy and colostomy. Obstructive sleep apnea not using CPAP therapy Diverticulosis with previous history of diverticulitis Multiple hepatic cysts Plan: The patient was seen and evaluated Medications and labs reviewed Remains on [facility] services for out patient treatment Increase his activity as tolerated Titrate the FiO2 as tolerated Cleared for transfer to subacute rehab once cleared surgically/medically I have personally seen and examined the patient, performed the documentation and the assessment and plan as written. Number of minutes spent on the visit: 10.
--- NOTE | 2022-03-03 16:35 | P.PN ---
Subjective Progress Note Date: 03/03/22 Principal diagnosis: Pneumonia Patient is a 76 year old male with a past medical history significant for end-stage COPD patient did have a history of recurrent pneumonias recently did have a multidrug resistant Pseudomonas , admitted to the hospital abdominal pain diagnosed with a small bowel obstruction status post lysis of adhesions probable resection and repair of incisional hernia. On today's evaluation that is 03/03/2022, the patient remains to be afebrile, the patient is breathing comfortably on 4 L nasal cannula, the patient continued to have a cough however overall intensity has decreased to have some thick sputum no hemoptysis, no chest pain no abdominal pain or diarrhea Objective - Vital Signs Vital signs: Vital Signs Temp 98.2 F 03/03/22 07:16 Pulse 90 03/03/22 09:11 Resp 19 03/03/22 07:16 BP 106/59 03/03/22 07:16 Pulse Ox 94 L 03/03/22 07:16 FiO2 36 02/21/22 00:31 Intake & Output 03/02/22 03/03/22 03/03/22 18:59 06:59 18:59 Intake Total 240 100 Output Total 450 800 100 Balance -210 -700 -100 Intake: Intake, IV Titration 100 Amount Piperacillin-Tazobactam 3 100 .375 gm In Sodium Chloride 0.9% 100 ml @ 25 mls/hr IVPB Q8HR [facility] Rx# :[id number] Oral 240 Output: Urine 400 600 Stool 50 200 100 Other: Voiding Method Urinal Urinal # Voids 0 # Bowel Movements 1 1 - Exam GENERAL DESCRIPTION: An elderly male lying in bed in no distress RESPIRATORY SYSTEM: Unlabored breathing , coarse breath sounds bilaterally HEART: S1 S2 regular rate and rhythm , ABDOMEN: Soft , no tenderness EXTREMITIES: No edema feet - Labs CBC & Chem 7: 03/03/22 05:12 03/03/22 05:12 Labs: Abnormal Lab Results - Last 24 Hours (Table) 03/03/22 03/03/22 Range/Units 05:12 05:12 RBC 2.60 L (4.40-5.60) X 10*6/uL Hgb 8.0 L (13.0-17.0) g/dL Hct 25.1 L (39.6-50.0) % MCHC 31.9 L (32.0-37.0) g/dL RDW 14.9 H (11.5-14.5) % MPV 12.5 H (9.5-12.2) fL Immature Gran # 0.09 H (0.00-0.04) X 10*3/uL Eosinophils # 0.38 H (0.04-0.35) X 10*3/uL Carbon Dioxide 30.2 H (20.0-27.5) mmol/L Anion Gap 8.20 L (10.00-18.00) mmol/L BUN 36.1 H (9.0-27.0) mg/dL Est GFR (CKD-EPI)AfAm 55.9 L (60.0-200.0) Est GFR (CKD-EPI)NonAf 48.2 L (60.0-200.0) BUN/Creatinine Ratio 25.97 H (12.00-20.00) Ratio Calcium 8.6 L (8.7-10.3) mg/dL Assessment and Plan (1) Pneumonia Current Visit: No Status: Acute Code(s): J18.9 - PNEUMONIA, UNSPECIFIED ORGANISM SNOMED Code(s): 253365970 Plan: 1patient with end-stage COPD this patient with a history of recurrent pneumonias and patient was getting treatment for multidrug resistant Pseudomonas pneumonia when he got admitted to the hospital for Bowel obstruction in this patient who is status post laparotomy lysis of adhesion repair of incisional hernia and small bowel resection patient becomes the gum or shortness of breath requiring supplemental oxygen concerning for possible pneumonia. 2sputum culture had been obtained and currently pending. 3patient did have mildly elevated pro calcitonin. 4patient sputum did grow pseudomonas that is resistant to meropenem but sensitive to Zosyn 5- patient seemed to have shown some clinical improvement and will continue with the Zosyn and will monitor clinical course closely Time with Patient: Less than 30
[2022-03-03] MEDS: MAGNESIUM OXIDE 400 MG TAB PO SCH (22:09)
[2022-03-03] MEDS: HYDROmorphone 1 MG/ML 1 ML SYRINGE IVP PRN (22:10)
[2022-03-04] MEDS: PIPERACILLIN-TAZOBACTAM 3.375 GM in SODIUM CHLORIDE 0.9% 100 ML IVPB SCH ×4 (00:47→23:08)
--- NOTE | 2022-03-04 01:28 | PN ---
PROGRESS NOTE DATE OF SERVICE: 03/03/2022 SUBJECTIVE: This 76-year-old gentleman, who was admitted after small bowel resection, had multiple medical issues including CHF, pneumonia, and possible right lung nodule. Also multiple consultations including Infectious Disease and Pulmonary are following the patient. No chest pain. No palpitations. No fever. OBJECTIVE: VITAL SIGNS: Pulse is 78, blood pressure ntd_, respirations 16. CHEST: Few scattered rhonchi. ABDOMEN: Soft, status post surgery. CARDIOVASCULAR: S1, S2 normal. LABORATORY DATA: Hemoglobin 8. Rest of the labs reviewed. ASSESSMENT: 1. Status post small bowel resection for small bowel obstruction. 2. Congestive heart failure with acute exacerbation and acute hypoxic respiratory failure. 3. Right basilar pneumonia. 4. Right pulmonary nodule. 5. Chronic obstructive pulmonary disease. 6. Chronic hypoxic respiratory failure. 7. Factor V Leiden mutation. 8. Multiple medical issues. RECOMMENDATIONS: I recommend to continue current management and symptomatic treatment. Closely follow with Infectious Disease and Pulmonary. Recommend close followup with Pulmonary and Infectious Disease in the outpatient setting also. The patient understands and agrees. Further recommendations to follow. The rest of the recommendations per Surgery. MMODL / IJN: [id number] / CALVIN
[2022-03-04] MEDS: HYDROmorphone 1 MG/ML 1 ML SYRINGE IVP PRN ×3 (04:06→23:07)
[2022-03-04 06:54] LABS: African American GFR (CKD) 49 (>60 ml/min/1.73 sqM); Anion Gap 2 mmol/L; Blood Urea Nitrogen 32 mg/dL (9-20); Calcium 8.1 mg/dL (8.4-10.2); Carbon Dioxide 31 mmol/L (22-30); Chloride 103 mmol/L (98-107); Glucose 92 mg/dL (74-99); Magnesium 1.8 mg/dL (1.6-2.3); Non-African American GFR(CKD) 42 (>60 ml/min/1.73 sqM); Potassium 4.3 mmol/L (3.5-5.1); Sodium 136 mmol/L (137-145)
[2022-03-04 07:52] LABS: Basophils % (A) 0 %; Eosinophils # (A) 0.3 k/uL (0-0.7); Eosinophils % (A) 3 %; HCT 25.1 % (39.0-53.0); Hypochromasia Slight; Lymphocytes # (A) 1.2 k/uL (1.0-4.8); Lymphocytes % (A) 15 %; MCH 30.3 pg (25.0-35.0); MCHC 31.7 g/dL (31.0-37.0); MCV 95.4 fL (80.0-100.0); Mean Platelet Volume 10.4; Monocytes # (A) 0.5 k/uL (0-1.0); Monocytes % (A) 6 %; Neutrophils # (A) 5.8 k/uL (1.3-7.7); Neutrophils % (A) 73 %; Platelet Count 378 k/uL (150-450); RBC 2.63 m/uL (4.30-5.90); RDW 14.3 % (11.5-15.5); WBC 7.9 k/uL (3.8-10.6)
[2022-03-04] MEDS: ASCORBIC ACID 500 MG TAB PO SCH (09:01)
[2022-03-04] MEDS: ENOXAPARIN 40 MG/0.4 ML SYRINGE SQ SCH (09:01)
[2022-03-04] MEDS: PANTOPRAZOLE 40 MG TABLET PO SCH (09:01)
[2022-03-04] MEDS: SIMETHICONE 40 MG/0.6 ML DROPS 2,000 MG/30 ML BOTTLE PO SCH ×4 (09:01→21:35)
[2022-03-04] MEDS: allopurinoL 100 MG TAB PO SCH (09:01)
[2022-03-04] MEDS: DOXAZOSIN 4 MG TAB PO SCH (09:01)
[2022-03-04] MEDS: CHOLECALCIFEROL 25 MCG (1000 IU) TABLET PO SCH (09:01)
[2022-03-04] MEDS: MONTELUKAST 10 MG TAB PO SCH (09:01)
[2022-03-04] MEDS: METOPROLOL TARTRATE 25 MG TAB PO SCH ×2 (09:01→21:34)
[2022-03-04] MEDS: LACTOBACILLUS ACIDOPH & BULGAR 1 EACH PACKET PO SCH (09:11)
[2022-03-04] MEDS: IPRATROPIUM-ALBUTEROL 3 ML NEB INHALATION SCH ×4 (09:46→19:03)
[2022-03-04] MEDS: SYMBICORT 80-4.5 MCG INHALER INHALATION SCH (09:46)
[2022-03-04] MEDS: guaiFENesin 600 MG TABLET.ER PO SCH ×2 (10:30→21:34)
--- NOTE | 2022-03-04 11:02 | XR ---
EXAMINATION TYPE: XR chest 1V portable DATE OF EXAM: 03/04/2022 Comparison: 03/02/2022 Clinical History: 76-year-old male SOB Findings: Heart margin is partially obscured by adjacent parenchymal opacity. Ongoing small to moderate right p leural effusion and patchy retrocardiac and left basilar opacity. Right upper lobe nodularity 1.8 cm versus 2.4 cm, previously. Left PICC tip not well seen due to the degree of penetration. Impression: Underlying [id number] right pleural effusion with prominent bilateral lower lung atelectasis a nd/or consolidation. Right upper lobe nodularity redemonstrated. Early lung cancer remains to be excl uded. Appropriate pulmonary medicine follow-up recommended.
--- NOTE | 2022-03-04 11:30 | P.PN ---
Subjective Progress Note Date: 03/04/22 This is a 76-year-old male who is very well-known to me, hospitalized on multiple occasions for pneumonia with gram-negative most recent infection was related to Pseudomonas and the patient was taken off the patient antibiotics with IV meropenem. The patient has history of COPD, lung mass that was treated with SBR T and history of tracheal bronchomalacia. He has had multiple pneumonias and multiple hospitalizations in the past for the same. During the most recent hospitalization of jan 2022, the patient was treated for a recurrent Pseudomonas pneumonia Note that the patient has had previous infections with Pseudomonas, stenotrophomonas, and MRSA. The patient came into the ED with complaints of diffuse abdominal pain but more in the right lower abdomen. Patient reports that his abdominal pain started Thursday morning. The pain came on suddenly. He'd been nauseated and having acid reflux. She reports that his ostomy output had decreased he was still making a small amount of stool through his ostomy. But has stopped having any flatus over the last couple a days. Patient does have a prior history of diverticulitis with perforation requiring bowel resection with colostomy placement in March 2021 in [place]. He also has a past surgical history of a right inguinal hernia repair. Patient had a computed tomography scan abdomen and pelvis showing a small bowel obstruction. NG tube is being placed in the ER. History of a pulmonary lung nodule requiring radiation treatment. He does have factor V Leiden mutation. The patient is seen today 02/18/2022 in follow-up on the regular medical floor. He is currently sitting up at the bedside. Awake and alert in no acute distr ess. Nasogastric tube remains in place. Still with very minimal output of the ostomy. White count 15.0. Hemoglobin 10.0. Sodium 139. Potassium 4.8. BUN 38. Creatinine 1.7. He is continued on DuoNeb inhalations, Symbicort, Singulair. Heparin for DVT prophylaxis. Surgical services are on the case. He is currently on antibiotics in the form of meropenem. The patient is seen today 02/19/2022 in follow-up. He did undergo a exploratory laparotomy with lysis of adhesions with Dr. Maribel laguna. He tolerated the procedure well. His back in the regular medical floor. He is maintaining good O2 saturations in the 90s on 2 L/m per nasal cannula. Afebrile. Hemodynamically stable. White count 14.5. Hemoglobin 9.8. Sodium 139. Potassium 4.3. Chloride 108. Bicarb 22. BUN 39. Creatinine 1.46. Glucose 69. The patient is seen today 02/20/2022 in follow-up on the regular medical floor. He is postoperative day #1. He did undergo extensive lysis of adhesions, small bowel resection and repair of incisional hernia. He is awake and alert. he is maintaining O2 saturations in the low 90s on 4 L/m per nasal cannula. There is a small amount of stool in his ostomy. White count 9.9. Hemoglobin 9.7. Sodium 142. Potassium 4.7. Bicarb 21. BUN 56. Creatinine 1.88. Glucose 103. He is working with the incentive spirometer. He is continued on DuoNeb inhalations, Symbicort, Mucinex, Singulair. He is on antibiotics in the form of meropenem. 02/21/2022, Anival is doing well. He remains nothing by mouth. NG tube is in place and there are plans to remove the NG tube today. The colostomy site has without some minimal amount of output. Surgical once is striking and intact. He has a congested cough. he is bringing minimal amount of sputum. He remains on IV meropenem regarding recurrent pseudomonal pneumonias. Note that the patient underwent an extensive surgery which involved last of adhesions, small bowel resection and repair of an incisional hernia. He had complete bowel obstruction. He remains on Lovenox portably prophylaxis. Remains on bronchodilators. Incentive spirometer and flutter valve at the bedside. Labs from today are still pending. Creatinine from yesterday was 1.88 with a BUN of 56 and a sodium level of 142. Normocytic on is down to 9.9. He is awake and alert and sitting up on a chair is postop day #2. On 02/22/2022, the patient is sitting up on a chair. He has a congested cough. He remains on IV meropenem. Limited activity and his colostomy bag. Bowel sounds are still hypoactive. Surgical once is striking and intact. NG tube was removed. His taken no chills. No new complaints. White cell count is at 8.8 with a hemoglobin of 9.4. BUN is at 66 with a creatinine of 1.7 and sodium level is at 141. He is ambulating without a walker. On today's evaluation of 02/23/2022, the patient denies having any nausea and vomiting. GI surgeries on the case regarding the progress of the surgery. NG tube remains out. The bowel function has not returned yet. The patient is taking anxious. He is active. He is having total for pain control. Restasis as remains stable and the patient remains on IV meropenem. Remains on DuoNeb about treatments [id number]. Using incentive spirometer. Blood work from today shows that the dermis count is at 7.4 with a hemoglobin drop 9.5. BUN is at 61 with a creatinine 1.6 and a sodium level is at 144. The patient is seen today 02/24/2022 in follow-up on the regular medical floor. He is currently resting fairly comfortably in bed. He is awake and alert in no acute distress. He is having some ongoing issues with abdominal discomfort. He was having episodes of nausea and vomiting last night and a nasogastric tube was reinserted. He is maintaining good O2 saturation in the 90s on 4 L/m per nasal cannula. He is afebrile. Hemodynamically stable. Most recent chest x-ray still revealing a right lower lobe opacities. Sodium 145. Potassium 3.9. BUN 67. Creatinine 1.49. ProBNP 1400. The patient is continued on Symbicort, DuoNeb inhalations. Antibiotics in the form of meropenem. DVT prophylaxis with Lovenox. Normal saline at 50 MLS per hour. The patient is seen today 03/01/2022 in follow-up on the regular medical floor. He is awake and alert in no acute distress. He is still having some abdominal discomfort. He is passing flatus and stool in the ostomy bag. He is tolerating a regular diet. Patient culture is positive for pseudomonas aeruginosa. The patient is a colonizer. He is currently on meropenem however this is resistant. He is maintaining good O2 saturation in the 90s on 4 L/m per nasal cannula. He is afebrile. Hemodynamically stable. Remains on Symbicort, DuoNeb inhalations. Adequate pain control. The patient is seen today 03/03/2022 in follow-up on the regular medical floor. He is currently resting fairly comfortably in bed. Awake and alert in no acute distress. Currently maintaining good O2 saturations in the 90s on 4 L/m per nasal cannula. He is afebrile. Hemodynamically stable. Barium swallow today reveals silent aspiration with thin liquids. Single episode of transient penetration with nectar consistency. No other penetration or aspiration is seen. Patient's therapy recommending continuation of a dysphagia III, chopped texture diet. Colostomy continues to function well. White count 7.0. Hem oglobin 8.0. Platelets 367. Sodium 140. Potassium 4.7. BUN 36. Creatinine 1.4. Glucose 75. He remains on Symbicort, DuoNeb inhalations. Antibiotics in the form of Zosyn. Lovenox for DVT prophylaxis. The patient is seen today 03/04/2022 in follow-up on the regular medical floor. He is awake and alert in no acute distress. Currently resting fairly comfortably in bed. Maintaining O2 saturations in the low 90s on 4 L/m per nasal cannula. He is afebrile. Hemodynamically stable. Continues with a loose cough. Sputum culture again positive for pseudomonas aeruginosa. White count 7.9. Hemoglobin 8.0. Sodium 136. Potassium 4.6. BUN 32. Creatinine 1.56. He remains on Zosyn, DuoNeb inhalations, Symbicort. Lovenox for DVT prophylaxis. Dilaudid for pain control. Encouraged regarding the increased use of the incentive spirometer. Chest x-ray continues to show small to moderate right pleural effusion with bilateral lower lung atelectasis/consolidation. Right upper lobe nodularity region demonstrated. The patient has received stereotactic radiation treatment to the right upper lobe in the past. Objective - Vital Signs Vital signs: Vital Signs Temp 98.2 F 03/04/22 08:00 Pulse 92 03/04/22 09:58 Resp 19 03/04/22 08:00 BP 126/69 03/04/22 08:00 Pulse Ox 91 L 03/04/22 08:00 FiO2 36 02/21/22 00:31 Intake & Output 03/03/22 03/04/22 03/04/22 18:59 06:59 18:59 Output Total 100 250 Balance -100 -250 Weight 75.296 kg Output: Urine 250 Stool 100 Other: Voiding Method Urinal # Voids 1 # Bowel Movements 1 3 - Exam GENERAL EXAM: Alert, 76-year-old male, weak, debilitated, on 4 L nasal cannula, fairly comfortable in no apparent distress. HEAD: Normocephalic. EYES: Normal reaction of pupils, equal size. NOSE: Nasogastric tube secured in place. Clear with pink turbinates. THROAT: No erythema or exudates. NECK: No masses, no JVD. CHEST: No chest wall deformity. LUNGS: Equal air entry with scattered rhonchi, crackles in the right lung base CVS: S1 and S2 normal with no audible murmur, regular rhythm. ABDOMEN: Some tenderness on palpation. Ostomy bag on the side of abdomen, functional. SPINE: No scoliosis or deformity SKIN: No rashes CENTRAL NERVOUS SYSTEM: No focal deficits, tone is normal in all 4 extremities. EXTREMITIES: There is no peripheral edema. No clubbing, no cyanosis. Peripheral pulses are intact. - Labs CBC & Chem 7: 03/04/22 06:24 03/04/22 06:24 Labs: Abnormal Lab Results - Last 24 Hours (Table) 03/04/22 03/04/22 Range/Units 06:24 06:24 RBC 2.63 L (4.30-5.90) m/uL Hgb 8.0 L (13.0-17.5) gm/dL Hct 25.1 L (39.0-53.0) % Sodium 136 L (137-145) mmol/L Carbon Dioxide 31 H (22-30) mmol/L BUN 32 H (9-20) mg/dL Creatinine 1.56 H (0.66-1.25) mg/dL Calcium 8.1 L (8.4-10.2) mg/dL Assessment and Plan Assessment: Small bowel obstruction with distal right lower quadrant transition point noted on computed tomography scan, Prior history of diverticulitis with perforation and bowel resection with colostomy placement. Status post exploratory laparotomy with lysis of adhesions, small bowel resection, repair of incisional hernia on 02/19/2022. Developed nausea and vomiting and required nasal tube reinsertion on 02/23/2022 and again subsequent removal. Ostomy functioning. Recovered and tolerating a dysphagia 3 chopped diet Recurrent pneumonia. The patient is having recurrent pneumonia/tra cheobronchitis with recurrent pseudomonas. Currently on Zosyn. 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 coli, MRSA Right upper lobe pulmonary nodule avid on the previous PET scan and this was active on a PET scan and the patient was treated with SBRT Right renal mass being followed up on outpatient basis Factor 5 Leyden mutation Previous history of left lower extremity DVT Hypertension Chronic stage III kidney disease History of colonic perforation requiring colectomy and colostomy. Obstructive sleep apnea not using CPAP therapy Diverticulosis with previous history of diverticulitis Multiple hepatic cysts Plan: The patient was seen and evaluated Chest x-ray, medications and labs reviewed Remains on [facility] services for out patient treatment Increase his activity as tolerated Titrate the FiO2 as tolerated Encourage increased use of the incentive spirometer and cough and deep breathing exercises Cleared for transfer to subacute rehab once cleared surgically/medically I have personally seen and examined the patient, performed the documentation and the assessment and plan as written. Number of minutes spent on the visit: 10.
--- NOTE | 2022-03-04 14:33 | P.PN ---
Subjective Progress Note Date: 03/04/22 CHIEF COMPLAINT: Small bowel obstruction HISTORY OF PRESENT ILLNESS: Patient is Status post small bowel resection, extensive lysis of adhesions and repair of incisional hernia on 02/19/22. Patient is having stool and air through his ostomy. Denies any nausea or vomiting. He did report increased right-sided abdominal pain that started last night. It did recur again this morning and he is due for pain medication. He reports increased drainage from his abdomen. He denies any nausea or vomiting. He still sounds congested. Patient evaluated by speech therapy they have adjusted diet to dysphagia chopped nectar thin liquids. Afebrile. WBC is 7.9 Patient seen and examined by Dr. mackay PHYSICAL EXAM: VITAL SIGNS: Reviewed. GENERAL: Well-developed in no acute distress. HEENT: No sclera icterus. Extraocular movements grossly intact. Moist buccal mucosa. Head is atraumatic, normocephalic. ABDOMEN: Soft. Nondistended Tenderness right lower quadrant. Ostomy with stool present. Incision site is clean dry and intact. On the left side of the incision there appears to be a skin tissue flap with serosanguineous drainage. NEUROLOGIC: Alert and oriented. Cranial nerves II through XII grossly intact. ASSESSMENT: 1. Small bowel obstruction secondary to internal hernia from adhesive band status post extensive lysis of adhesions, small bowel resection and repair of incisional hernia 2. Gallbladder sludge noted on CT. Patient denies any right upper quadrant pain 3. Prior history of diverticulitis with perforation and bowel resection with colostomy placement 4. Pneumonia 5. Postoperative ileus resolved PLAN: -Continue dysphagia chopped diet -Continue pain management -Continue to monitor incision site -Encouraged patient to increase activity level -Encouraged patient to use incentive spirometer -Continue GI prophylaxis Protonix and DVT prophylaxis Lovenox Physician Control Analyst note has been reviewed by physician. Signing provider agrees with the documented findings, assessment, and plan of care. Objective - Vital Signs Vital signs: Vital Signs Temp 98.2 F 03/04/22 08:00 Pulse 88 03/04/22 13:09 Resp 19 03/04/22 08:00 BP 126/69 03/04/22 08:00 Pulse Ox 91 L 03/04/22 08:00 FiO2 36 02/21/22 00:31 Intake & Output 03/03/22 03/04/22 03/04/22 18:59 06:59 18:59 Output Total 100 250 Balance -100 -250 Weight 75.296 kg Output: Urine 250 Stool 100 Other: Voiding Method Urinal # Voids 1 # Bowel Movements 1 3 - Labs CBC & Chem 7: 03/04/22 06:24 03/04/22 06:24 Labs: Abnormal Lab Results - Last 24 Hours (Table) 03/04/22 03/04/22 Range/Units 06:24 06:24 RBC 2.63 L (4.30-5.90) m/uL Hgb 8.0 L (13.0-17.5) gm/dL Hct 25.1 L (39.0-53.0) % Sodium 136 L (137-145) mmol/L Carbon Dioxide 31 H (22-30) mmol/L BUN 32 H (9-20) mg/dL Creatinine 1.56 H (0.66-1.25) mg/dL Calcium 8.1 L (8.4-10.2) mg/dL
--- NOTE | 2022-03-04 15:56 | P.PN ---
Subjective Progress Note Date: 03/04/22 Principal diagnosis: Pneumonia Patient is a 76 year old male with a past medical history significant for end-stage COPD patient did have a history of recurrent pneumonias recently did have a multidrug resistant Pseudomonas , admitted to the hospital abdominal pain diagnosed with a small bowel obstruction status post lysis of adhesions probable resection and repair of incisional hernia. On today's evaluation that is 03/04/2022, the patient continues to be afebrile, the patient is breathing comfortably on 4 L nasal cannula, the patient coughs it up slightly decreased in intensity still bringing up some purulent sputum no hemoptysis patient denies any abdominal pain however noticed to have some drainage from the incision Objective - Vital Signs Vital signs: Vital Signs Temp 98.2 F 03/04/22 08:00 Pulse 92 03/04/22 09:58 Resp 19 03/04/22 08:00 BP 126/69 03/04/22 08:00 Pulse Ox 91 L 03/04/22 08:00 FiO2 36 02/21/22 00:31 Intake & Output 03/03/22 03/04/22 03/04/22 18:59 06:59 18:59 Output Total 100 250 Balance -100 -250 Weight 75.296 kg Output: Urine 250 Stool 100 Other: Voiding Method Urinal # Voids 1 # Bowel Movements 1 3 - Exam GENERAL DESCRIPTION: An elderly male lying in bed in no distress RESPIRATORY SYSTEM: Unlabored breathing , coarse breath sounds bilaterally HEART: S1 S2 regular rate and rhythm , ABDOMEN: Soft , incision is intact no redness did have some serous drainage on the dressing EXTREMITIES: No edema feet - Labs CBC & Chem 7: 03/04/22 06:24 03/04/22 06:24 Labs: Abnormal Lab Results - Last 24 Hours (Table) 03/04/22 03/04/22 Range/Units 06:24 06:24 RBC 2.63 L (4.30-5.90) m/uL Hgb 8.0 L (13.0-17.5) gm/dL Hct 25.1 L (39.0-53.0) % Sodium 136 L (137-145) mmol/L Carbon Dioxide 31 H (22-30) mmol/L BUN 32 H (9-20) mg/dL Creatinine 1.56 H (0.66-1.25) mg/dL Calcium 8.1 L (8.4-10.2) mg/dL Assessment and Plan (1) Pneumonia Current Visit: No Status: Acute Code(s): J18.9 - PNEUMONIA, UNSPECIFIED ORGANISM SNOMED Code(s): 700628037 Plan: 1patient with end-stage COPD this patient with a history of recurrent pneumonias and patient was getting treatment for multidrug resistant Pseudomonas pneumonia when he got admitted to the hospital for Bowel obstruction in this patient who is status post laparotomy lysis of adhesion repair of incisional hernia and small bowel resection patient becomes the gum or shortness of breath requiring supplemental oxygen concerning for possible pneumonia. 2 patient sputum did grow pseudomonas that is resistant to meropenem but sensitive to Zosyn 5- patient did have some clinical improvement and the patient will continue with the Zosyn and continues with supportive care Time with Patient: Less than 30
[2022-03-04] MEDS: FORMOTEROL FUMARATE 20 MCG/2 ML NEBU INHALATION SCH (19:03)
[2022-03-04] MEDS: BUDESONIDE 1 MG/2 ML NEBU INHALATION SCH (19:03)
[2022-03-04] MEDS: MAGNESIUM OXIDE 400 MG TAB PO SCH (21:34)
--- NOTE | 2022-03-05 03:11 | PN ---
PROGRESS NOTE DATE OF SERVICE: 03/04/2022 SUBJECTIVE: This 76-year-old gentleman admitted after surgery and multiple complex medical issues. The patient is complaining of some respiratory difficulties at this time. Chest x-ray showed bilateral lower lobe consolidation possibly with some effusions also. The patient is already receiving antibiotic. Reviewed the x-ray personally. Multiple consultants including Infectious Disease, Pulmonary, and Surgery following the patient closely. Dr. Castillo has seen the patient and is being closely monitored. The sputum culture showed multidrug-resistant Pseudomonas. PAST MEDICAL HISTORY: Reviewed. REVIEW OF SYSTEMS: A 14-point review of systems is negative as mentioned earlier. CURRENT MEDICATIONS: Reviewed include DuoNeb, dose and rest of medications noted. PHYSICAL EXAMINATION: VITAL SIGNS: Pulse is 93, blood pressure n, respirations 20. HEENT: Conjunctivae are normal. NECK: No JVD. CARDIOVASCULAR: S1, S2. RESPIRATIONS: A few scattered rhonchi and crackles. ABDOMEN: Soft. Status post surgery. LABORATORY DATA: Noted the hemoglobin is 8, creatinine is 1.56. ASSESSMENT: 1. Status post small bowel resection for small bowel obstruction. 2. Bibasilar pneumonia with resistant Pseudomonas aeruginosa. 3. Congestive heart failure with acute exacerbation and acute hypoxic respiratory failure. 4. Right pulmonary nodule. 5. Chronic obstructive pulmonary disease. 6. Chronic hypoxic respiratory failure. 7. Factor V Leiden mutation. 8. Multiple medical issues. RECOMMENDATIONS: Recommend to continue current medications and symptomatic treatment. Otherwise, optimize bronchodilator treatment. Other than that, I would recommend to continue the antibiotics. Incentive spirometry. The patient is currently on Zosyn and further recommendations to follow. MMODL / IJN: [id number] / MTDD
[2022-03-05] MEDS: HYDROmorphone 1 MG/ML 1 ML SYRINGE IVP PRN ×4 (03:55→21:24)
[2022-03-05] MEDS: FORMOTEROL FUMARATE 20 MCG/2 ML NEBU INHALATION SCH ×2 (07:56→20:13)
[2022-03-05] MEDS: IPRATROPIUM-ALBUTEROL 3 ML NEB INHALATION SCH ×4 (07:56→20:13)
[2022-03-05] MEDS: BUDESONIDE 1 MG/2 ML NEBU INHALATION SCH ×2 (07:56→20:13)
[2022-03-05] MEDS: PIPERACILLIN-TAZOBACTAM 3.375 GM in SODIUM CHLORIDE 0.9% 100 ML IVPB SCH ×3 (08:56→23:20)
[2022-03-05] MEDS: METOPROLOL TARTRATE 25 MG TAB PO SCH ×2 (08:57→20:51)
[2022-03-05] MEDS: PANTOPRAZOLE 40 MG TABLET PO SCH (08:57)
[2022-03-05] MEDS: allopurinoL 100 MG TAB PO SCH (08:57)
[2022-03-05] MEDS: LACTOBACILLUS ACIDOPH & BULGAR 1 EACH PACKET PO SCH (08:57)
[2022-03-05] MEDS: SIMETHICONE 40 MG/0.6 ML DROPS 2,000 MG/30 ML BOTTLE PO SCH ×4 (08:57→19:35)
[2022-03-05] MEDS: CHOLECALCIFEROL 25 MCG (1000 IU) TABLET PO SCH (08:57)
[2022-03-05] MEDS: DOXAZOSIN 4 MG TAB PO SCH (08:57)
[2022-03-05] MEDS: ENOXAPARIN 40 MG/0.4 ML SYRINGE SQ SCH (08:57)
[2022-03-05] MEDS: MONTELUKAST 10 MG TAB PO SCH (08:57)
[2022-03-05] MEDS: ASCORBIC ACID 500 MG TAB PO SCH (08:57)
[2022-03-05] MEDS: guaiFENesin 600 MG TABLET.ER PO SCH ×3 (08:57→19:35)
[2022-03-05 10:23] LABS: Basophils # (A) 0.01 X 10*3/uL (0.00-0.10); Basophils % (A) 0.1 %; Eosinophils # (A) 0.29 X 10*3/uL (0.04-0.35); Eosinophils % (A) 3.6 %; HGB 7.1 g/dL (13.0-17.0); Immature Grans, Automated 1.1 %; Lymphocytes # (A) 1.59 X 10*3/uL (0.90-5.00); Lymphocytes % (A) 19.7 %; MCH 30.5 pg (27.0-32.0); MCHC 32.3 g/dL (32.0-37.0); MCV 94.4 fL (80.0-97.0); Mean Platelet Volume 11.7 fL (9.5-12.2); Monocytes # (A) 0.71 X 10*3/uL (0.20-1.00); Monocytes % (A) 8.8 %; NRBC Per 100 WBC 0 /100 WBCS (0.0-0.0); Neutrophils # (A) 5.38 X 10*3/uL (1.80-7.70); Neutrophils % (A) 66.7 %; Platelet Count 420 X 10*3/uL (140-440); RBC 2.33 X 10*6/uL (4.40-5.60); RDW 15.2 % (11.5-14.5); WBC 8.07 X 10*3/uL (4.50-10.00)
[2022-03-05 10:24] LABS: African American GFR (CKD) 43.8 (60.0-200.0); Anion Gap 10.2 mmol/L (10.00-18.00); BUN/Creat Ratio 14.94 Ratio (12.00-20.00); Blood Urea Nitrogen 25.4 mg/dL (9.0-27.0); Calcium 8.6 mg/dL (8.7-10.3); Carbon Dioxide 26.8 mmol/L (20.0-27.5); Non-African American GFR(CKD) 37.8 (60.0-200.0); Potassium 4.7 mmol/L (3.5-5.5)
--- NOTE | 2022-03-05 13:38 | P.PN ---
Subjective Progress Note Date: 03/05/22 CHIEF COMPLAINT: Small bowel obstruction HISTORY OF PRESENT ILLNESS: Patient is status post small bowel resection, extensive lysis of adhesions and repair of incisional hernia on 02/19/22. Ostomy is functioning. He reports his pain is controlled. He is eating and tolerating diet. Patient reports improvement in his breathing. He still has cough. Afebrile. WBC is 8.07 Hgb dropped from 8 to 7.1 and platelets 07/03/2040 potassium 4.7 creatinine 1.7. Medicine service has ordered 1 unit of blood for hemoglobin 7.1 PHYSICAL EXAM: VITAL SIGNS: Reviewed. GENERAL: Well-developed in no acute distress. HEENT: No sclera icterus. Extraocular movements grossly intact. Moist buccal mucosa. Head is atraumatic, normocephalic. ABDOMEN: Soft. Nondistended. Ostomy with stool present. Incision site is clean dry and intact. And left-sided abdomen between the incision and ostomy there is an area of loose skin with small pinpoint opening with serossanguinous drainage. NEUROLOGIC: Alert and oriented. Cranial nerves II through XII grossly intact. ASSESSMENT: 1. Small bowel obstruction secondary to internal hernia from adhesive band status post extensive lysis of adhesions, small bowel resection and repair of incisional hernia 2. Gallbladder sludge noted on CT. Patient denies any right upper quadrant pain 3. Prior history of diverticulitis with perforation and bowel resection with co lostomy placement 4. Pneumonia 5. Postoperative ileus resolved PLAN: -Continue dysphagia chopped diet -Continue pain management -Continue to monitor incision site -Encouraged patient to increase activity level -Encouraged patient to use incentive spirometer -Continue GI prophylaxis Protonix and DVT prophylaxis Lovenox Physician Electronic Equipment Repairer note has been reviewed by physician. Signing provider agrees with the documented findings, assessment, and plan of care. Objective - Vital Signs Vital signs: Vital Signs Temp 99.0 F 03/05/22 13:25 Pulse 95 03/05/22 13:25 Resp 16 03/05/22 13:25 BP 113/68 03/05/22 13:25 Pulse Ox 97 03/05/22 13:25 FiO2 36 02/21/22 00:31 Intake & Output 03/04/22 03/05/22 03/05/22 18:59 06:59 18:59 Intake Total 100 240 Output Total 400 200 Balance 100 -400 40 Weight 75.296 kg Intake: Intake, IV Titration 100 Amount Piperacillin-Tazobactam 3 100 .375 gm In Sodium Chloride 0.9% 100 ml @ 25 mls/hr IVPB Q8HR [facility] Rx# :[id number] Oral 240 Output: Urine 200 200 Stool 200 Other: Voiding Method Urinal Urinal # Bowel Movements 1 - Labs CBC & Chem 7: 03/05/22 07:08 03/05/22 07:08 Labs: Abnormal Lab Results - Last 24 Hours (Table) 03/05/22 03/05/22 Range/Units 07:08 07:08 RBC 2.33 L (4.40-5.60) X 10*6/uL Hgb 7.1 L (13.0-17.0) g/dL Hct 22.0 L (39.6-50.0) % RDW 15.2 H (11.5-14.5) % Immature Gran # 0.09 H (0.00-0.04) X 10*3/uL Creatinine 1.7 H (0.6-1.5) mg/dL Est GFR (CKD-EPI)AfAm 43.8 L (60.0-200.0) Est GFR (CKD-EPI)NonAf 37.8 L (60.0-200.0) Calcium 8.6 L (8.7-10.3) mg/dL
--- NOTE | 2022-03-05 14:08 | PN ---
PROGRESS NOTE DATE OF SERVICE: 03/05/2022 SUBJECTIVE: This is a 76-year-old gentleman who was admitted after small-bowel obstruction and multiple medical issues including pneumonia and CHF, also patient was closely monitored. Most recent chest x-ray reviewed. OBJECTIVE: VITAL SIGNS: Pulse is 90, blood pressure is 111/60, and respirations 18. CHEST: Few scattered rhonchi. ABDOMEN: Soft, status post surgery. LEGS: No edema. LABORATORY DATA: Hemoglobin 7.1. ASSESSMENT: 1. Status post small bowel resection for small-bowel obstruction. 2. Bibasilar pneumonia, persistent Pseudomonas aeruginosa. 3. Congestive heart failure acute exacerbation, acute hypoxic respiratory failure. 4. Right pulmonary nodule. 5. Chronic obstructive pulmonary disease. 6. Chronic hypoxic respiratory failure. 7. Factor V Leiden mutation. 8. Symptomatic anemia. 9. Multiple medical issues. RECOMMENDATIONS: Recommended to continue current medical management and continue symptomatic treatment. I recommend 1 unit of transfusion with Lasix. Continue the rest of medications. Repeat labs. Guarded prognosis. Further recommendations to follow. See orders for further details. MMODL / IJN: [id number] /
--- NOTE | 2022-03-05 14:41 | P.PN ---
Subjective Progress Note Date: 03/05/22 Principal diagnosis: Small bowel obstruction, postoperative ileus. This is a 76-year-old male who is very well-known to me, hospitalized on multiple occasions for pneumonia with gram-negative most recent infection was related to Pseudomonas and the patient was taken off the patient antibiotics with IV meropenem. The patient has history of COPD, lung mass that was treated with SBR T and history of tracheal bronchomalacia. He has had multiple pneumonias and multiple hospitalizations in the past for the same. During the most recent hospitalization of jan 2022, the patient was treated for a recurrent Pseudomonas pneumonia Note that the patient has had previous infections with Pseudomonas, stenotrophomonas, and MRSA. The patient came into the ED with complaints of diffuse abdominal pain but more in the right lower abdomen. Patient reports that his abdominal pain started Thursday morning. The pain came on suddenly. He'd been nauseated and having acid reflux. She reports that his ostomy output had decreased he was still making a small amount of stool through his ostomy. But has stopped having any flatus over the last couple a days. Patient does have a prior history of diverticulitis with perforation requiring bowel resection with colostomy placement in March 2021 in [place]. He also has a past surgical history of a right inguinal hernia repair. Patient had a computed tomography scan abdomen and pelvis showing a small bowel obstruction. NG tube is being placed in the ER. History of a pulmonary lung nodule requiring radiation treatment. He does have factor V Leiden mutation. The patient is seen today 02/18/2022 in follow-up on the regular medical floor. He is currently sitting up at the bedside. Awake and alert in no acute distress. Nasogastric tube remains in place. Still with very minimal output of the ostomy. White count 15.0. Hemoglobin 10.0. Sodium 139. Potassium 4.8. BUN 38. Creatinine 1.7. He is continued on DuoNeb inhalations, Symbicort, Singulair. Heparin for DVT prophylaxis. Surgical services are on the case. He is currently on antibiotics in the form of meropenem. The patient is seen today 02/19/2022 in follow-up. He did undergo a exploratory laparotomy with lysis of adhesions with Dr. Maribel laguna. He tolerated the procedure well. His back in the regular medical floor. He is maintaining good O2 saturations in the 90s on 2 L/m per nasal cannula. Afebrile. Hemodynamically stable. White count 14.5. Hemoglobin 9.8. Sodium 139. Potassium 4.3. Chloride 108. Bicarb 22. BUN 39. Creatinine 1.46. Glucose 69. The patient is seen today 02/20/2022 in follow-up on the regular medical floor. He is postoperative day #1. He did undergo extensive lysis of adhesions, small bowel resection and repair of incisional hernia. He is awake and alert. he is maintaining O2 saturations in the low 90s on 4 L/m per nasal cannula. There is a small amount of stool in his ostomy. White count 9.9. Hemoglobin 9.7. Sodium 142. Potassium 4.7. Bicarb 21. BUN 56. Creatinine 1.88. Glucose 103. He is working with the incentive spirometer. He is continued on DuoNeb inhalations, Symbicort, Mucinex, Singulair. He is on antibiotics in the form of meropenem. 02/21/2022, Anival is doing well. He remains nothing by mouth. NG tube is in place and there are plans to remove the NG tube today. The colostomy site has without some minimal amount of output. Surgical once is striking and intact. He has a congested cough. he is bringing minimal amount of sputum. He remains on IV meropenem regarding recurrent pseudomonal pneumonias. Note that the patient underwent an extensive surgery which involved last of adhesions, small bowel resection and repair of an incisional hernia. He had complete bowel obstruction. He remains on Lovenox portably prophylaxis. Remains on bronchodilators. Incentive spirometer and flutter valve at the bedside. Labs from today are still pending. Creatinine from yesterday was 1.88 with a BUN of 56 and a sodium level of 142. Normocytic on is down to 9.9. He is awake and alert and sitting up on a chair is postop day #2. On 02/22/2022, the patient is sitting up on a chair. He has a congested cough. He remains on IV meropenem. Limited activity and his colostomy bag. Bowel sounds are still hypoactive. Surgical once is striking and intact. NG tube was removed. His taken no chills. No new complaints. White cell count is at 8.8 with a hemoglobin of 9.4. BUN is at 66 with a creatinine of 1.7 and sodium level is at 141. He is ambulating without a walker. On today's evaluation of 02/23/2022, the patient denies having any nausea and vomiting. GI surgeries on the case regarding the progress of the surgery. NG tube remains out. The bowel function has not returned yet. The patient is taking anxious. He is active. He is having total for pain control. Restasis as remains stable and the patient remains on IV meropenem. Remains on DuoNeb about treatments [id number]. Using incentive spirometer. Blood work from today shows that the dermis count is at 7.4 with a hemoglobin drop 9.5. BUN is at 61 with a creatinine 1.6 and a sodium level is at 144. The patient is seen today 02/24/2022 in follow-up on the regular medical floor. He is currently resting fairly comfortably in bed. He is awake and alert in no acute distress. He is having some ongoing issues with abdominal discomfort. He was having episodes of nausea and vomiting last night and a nasogastric tube was reinserted. He is maintaining good O2 saturation in the 90s on 4 L/m per nasal cannula. He is afebrile. Hemodynamically stable. Most recent chest x-ray still revealing a right lower lobe opacities. Sodium 145. Potassium 3.9. BUN 67. Creatinine 1.49. ProBNP 1400. The patient is continued on Symbicort, DuoNeb inhalations. Antibiotics in the form of meropenem. DVT prophylaxis with Lovenox. Normal saline at 50 MLS per hour. Evaluating this patient on 02/25/2022 on a regular medical floor. He appears fairly comfortable. NG tube remains in place to low intermittent suction. No more episodes of nausea and vomiting. Although, the abdomen is naphthalene still operator to palpation. Abdominal CT from yesterday shows postoperative ileus, and small bila teral pleural effusions. Surgery is still on the case. His oxygen saturation is adequate on 4 L nasal cannula. Patient denies shortness of breath. He still has a congested productive cough. No new CBC today. BMP shows sodium 143, potassium 3.7, chloride 108, serum CO2 35, BUN 62, creatinine 1.47, glucose 161. He is receiving PPN at 80 ml/hr. He is receiving DuoNeb 4 times a day and Symbicort inhaler. DVT prophylaxis with Lovenox, and GI prophylaxis with Protonix. Evaluating this patient today on 02/26/2022, on regular medical floor. His abdominal tenderness has slightly improved over the last 24 hours. His NG tube remains to low intermittent suction, and he denies any nausea or vomiting . Receiving TPN at 80 ML's per hour through left upper arm PICC. Patient reports small amount of air an ostomy pouch. Surgery continues to follow this patient daily. From respiratory standpoint, patient remains on 4 L nasal cannula. He denies any respiratory distress. He does have a congested, nonproductive cough and is receiving Mucinex. Incentive spirometer is at bedside. He remains afebrile. CBC count from today reveals no leukocytosis. WBC count 9, in [place] 8.8, hematocrit 29, platelet 250,000. BMP from today is stable sodium 142, potassium 3.6, chloride 108, serum CO2 31, BUN 59, serum creatinine 1.21, glucose 180. Maintained empirically on meropenem. Continues receiving DuoNeb nebulization and Symbicort inhaler. Receiving Lovenox for DVT prophylaxis and Protonix for GI prophylaxis. Overall condition is slightly improved from yesterday. I'm reevaluating this patient today on 02/27/2022. He remains on a general medical floor. He is still on 4 L nasal cannula, and denies any respiratory distress. Sputum culture is pending. He continues to have a congested nonproductive cough receiving Mucinex. He has a flutter valve and incentive spirometer at bedside. His abdominal tenderness continues to improve, and he has not had any further nausea or vomiting. His NG tube was discontinued by surgery, and he was started on a clear liquid diet. He continues to's receiving supplemental nutrition in the form of TPN at 80 ML's per hour through a left upper arm PICC. Patient has small amount of air and stool in his ostomy pouch. Surgery is still following this patient. No CBC from today. BMP is stable sodium 140, potassium 3.7, chloride 108, serum CO2 33, BUN 55, creatinine 1.18, glucose 164. Continues receiving DuoNeb nebulization and Symbicort inhaler. Receiving Lovenox for DVT prophylaxis and Protonix for GI prophylaxis. Reevaluating this patient today on 02/28/2022. He remains on a general medical floor. He remains on 4 L nasal cannula, and denies any respiratory distress. He does have congested nonproductive cough and is receiving Mucinex. Repeat chest x-ray was performed yesterday on 02/27/2022. It showed suspicious spiculated 1.9 cm density in the right midlung, small bilateral pleural effusions, and a right lower lobe infiltrate. The right lower lobe infiltrate looks slightly better from prior study The preliminary results of the patient's sputum culture is negative so far. Patient remains afebrile. CBC from today 1222 continues to show no leukocytosis WBC count is 8.7, hemoglobin 5, hematocrit 26, platelet 286,000. Patient remains on meropenem. He is still receiving DuoNeb nebulization and Symbicort inhaler. He is receiving supplemental nutritional support form of TPN at 80 ML's per hour through a left upper arm PICC. BMP remained stable with a sodium level of 136, potassium 3.5, chloride 102, serum CO2 32, BUN 52, creatinine 1.16, glucose 171. Patient's generalized abdominal pain continues. He has good ostomy output. Surgery is on the case. Coughing and deep breathing have been encouraged. Incentive spirometer at bedside. Receiving Lovenox for DVT prophylaxis and Protonix for GI prophylaxis. The patient is seen today 03/01/2022 in follow-up on the regular medical floor. He is awake and alert in no acute distress. He is still having some abdominal discomfort. He is passing flatus and stool in the ostomy bag. He is tolerating a regular diet. Patient culture is positive for pseudomonas aeruginosa. The patient is a colonizer. He is currently on meropenem however this is resistant. He is maintaining good O2 saturation in the 90s on 4 L/m per nasal cannula. He is afebrile. Hemodynamically stable. Remains on Symbicort, DuoNeb inhalations. Adequate pain control. The patient is seen today 03/03/2022 in follow-up on the regular medical floor. He is currently resting fairly comfortably in bed. Awake and alert in no acute distress. Currently maintaining good O2 saturations in the 90s on 4 L/m per nasal cannula. He is afebrile. Hemodynamically stable. Barium swallow today reveals silent aspiration with thin liquids. Single episode of transient penetration with nectar consistency. No other penetration or aspiration is seen. Patient's therapy recommending continuation of a dysphagia III, chopped texture diet. Colostomy continues to function well. White count 7.0. Hemoglobin 8.0. Platelets 367. Sodium 140. Potassium 4.7. BUN 36. Creatinine 1.4. Glucose 75. He remains on Symbicort, DuoNeb inhalations. Antibiotics in the form of Zosyn. Lovenox for DVT prophylaxis. The patient is seen today 03/04/2022 in follow-up on the regular medical floor. He is awake and alert in no acute distress. Currently resting fairly comfortably in bed. Maintaining O2 saturations in the low 90s on 4 L/m per nasal cannula. He is afebrile. Hemodynamically stable. Continues with a loose cough. Sputum culture again positive for pseudomonas aeruginosa. White count 7.9. Hemoglobin 8.0. Sodium 136. Potassium 4.6. BUN 32. Creatinine 1.56. He remains on Zosyn, DuoNeb inhalations, Symbicort. Lovenox for DVT prophylaxis. Dilaudid for pain control. Encouraged regarding the increased use of the incentive spirometer. Chest x-ray continues to show small to moderate right pleural effusion with bilateral lower lung atelectasis/consolidation. Right upper lobe nodularity region demonstrated. The patient has received stereotactic radiation treatment to the right upper lobe in the past. I'm reevaluating this patient today on 03/05/2022 on a regular medical floor. He is awake and alert in no acute distress, sitting up in bed, on 4 L nasal cannula. Denies any significant shortness of breath, chest pain, fever. His abdominal tenderness continues to improve, there is output in his ostomy pouch. Vital signs all remain stable. CBC from today is continues to show some anemia with a WBC count of 8, hemoglobin is 7.1, hematocrit 22, platelets 120,000. BMP from today was stable with a sodium of 141, potassium 4.7, chloride 104, serum CO2 27, BUN 25, creatinine 1.7, glucose 92. He remains on Zosyn for a positive sputum culture on 02/25/2022 for pseudomonas aerogunisa. No new x-rays to review today. Patient continues to receive DuoNeb inhalation, budesonide inhalation, formoterol inhalation, Singulair, Mucinex. Patient has been encouraged to use his incentive spirometer is currently at his bedside. Objective - Vital Signs Vital signs: Vital Signs Temp 99.0 F 03/05/22 13:25 Pulse 95 03/05/22 13:25 Resp 16 03/05/22 13:25 BP 113/68 03/05/22 13:25 Pulse Ox 97 03/05/22 13:25 FiO2 36 02/21/22 00:31 Intake & Output 03/04/22 03/05/22 03/05/22 18:59 06:59 18:59 Intake Total 100 358 Output Total 400 200 Balance 100 -400 158 Weight 75.296 kg Intake: Intake, IV Titration 100 Amount Piperacillin-Tazobactam 3 100 .375 gm In Sodium Chloride 0.9% 100 ml @ 25 mls/hr IVPB Q8HR [facility] Rx# :[id number] Oral 358 Output: Urine 200 200 Stool 200 Other: Voiding Method Urinal Urinal # Bowel Movements 1 - Exam GENERAL EXAM: Alert, 76-year-old male, on 4 L nasal cannula, fairly comfortable in no apparent distress. HEAD: Normocephalic. EYES: Normal reaction of pupils, equal size. NOSE: Clear with pink turbinates. THROAT: No erythema or exudates. NECK: No masses, no JVD. CHEST: No chest wall deformity. LUNGS: Equal air entry with crackles in the right lung base. Congested cough. CVS: S1 and S2 normal with no audible murmur, regular rhythm. ABDOMEN: Improved tenderness on palpation. Incisional dressing dry and intact. Umbilical hernia reducible nontender. Ostomy bag on the side of abdomen with some air and stool in the pouch. SPINE: No scoliosis or deformity SKIN: No rashes CENTRAL NERVOUS SYSTEM: No focal deficits, tone is normal in all 4 extremities. EXTREMITIES: There is no peripheral edema. No clubbing, no cyanosis. Peripheral pulses are intact. - Labs CBC & Chem 7: 03/05/22 07:08 03/05/22 07:08 Labs: Abnormal Lab Results - Last 24 Hours (Table) 03/05/22 03/05/22 03/05/22 Range/Units 07:08 07:08 12: RBC 2.33 L (4.40-5.60) X 10*6/uL Hgb 7.1 L (13.0-17.0) g/dL Hct 22.0 L (39.6-50.0) % RDW 15.2 H (11.5-14.5) % Immature Gran # 0.09 H (0.00-0.04) X 10*3/uL Creatinine 1.7 H (0.6-1.5) mg/dL Est GFR (CKD-EPI)AfAm 43.8 L (60.0-200.0) Est GFR (CKD-EPI)NonAf 37.8 L (60.0-200.0) Calcium 8.6 L (8.7-10.3) mg/dL Crossmatch See Detail Assessment and Plan Assessment: Small bowel obstruction with distal right lower quadrant transition point noted on computed tomography scan, Prior history of diverticulitis with perforation and bowel resection with colostomy placement. Status post exploratory laparotomy with lysis of adhesions, small bowel resection, repair of incisional hernia on 02/19/2022. Developed nausea and vomiting and required nasal tube reinsertion on 02/23/2022. Postoperative ileus resolved. NG tube discontinued 02/27/2022. Abdominal pain improved, and no further nausea or vomiting. Diet was advanced to a dysphagia level III chopped diet with nectar thick liquids. There is good ostomy output. Umbilical hernia reducible. status post repair Gallbladder sludge noted on CT, no evidence of cholecystitis Recurrent pneumonia. The patient is having recurrent pneumoni a/tracheobronchitis with pseudomonas and other gram-negative bacteria. Completed course Meropenem. Patient remains afebrile. Right-sided pleural effusion with patchy consolidation of the right lower lobe chronic hypoxic respiratory failure currently on 4 L of O2 nasal cannula Chronic COPD maintain on Trelegy Ellipta on an outpatient basis Tracheobronchomalacia Recurrent respiratory tract infection with pseudomonas aeruginosa, E. coli, MRSA Right upper lobe pulmonary nodule avid on the previous PET scan and this was active on a PET scan and the patient was treated with SBRT Right renal mass being followed up on outpatient basis Factor 5 Leyden mutation Previous history of left lower extremity DVT Hypertension Chronic stage III kidney disease History of colonic perforation requiring colectomy and colostomy. Obstructive sleep apnea not using CPAP therapy Diverticulosis with previous history of diverticulitis Multiple hepatic cystsis Plan: The patient was seen and evaluated medications and labs reviewed Continue Zosyn Mucinex for congestion, Continue DuoNeb, budesonide, formoterol inhalations. Encourage incentive spirometer use. Increase his activity as tolerated Lovenox for DVT prophylaxis Protonix for GI prophylaxis Cleared from a pulmonary standpoint, to a subacute rehab center in order to finish outpatient treatment. We will continue to follow as needed I have personally seen and examined the patient, performed the documentation and the assessment and plan as written. Number of minutes spent on the visit: [10 ]. Time with Patient: Less than 30
--- NOTE | 2022-03-05 15:11 | P.PN ---
Subjective Progress Note Date: 03/05/22 Principal diagnosis: Pneumonia Patient is a 76 year old male with a past medical history significant for end-stage COPD patient did have a history of recurrent pneumonias recently did have a multidrug resistant Pseudomonas , admitted to the hospital abdominal pain diagnosed with a small bowel obstruction status post lysis of adhesions probable resection and repair of incisional hernia. On today's evaluation that is 03/05/2022, the patient remains to be afebrile, the patient is breathing comfortably on 4 L nasal cannula, the patient cough has slightly decreased in intensity, however still bringing up some purulent sputum no hemoptysis patient denies any abdominal pain or any worsening drainage from incision Objective - Vital Signs Vital signs: Vital Signs Temp 97.9 F 03/05/22 07:15 Pulse 90 03/05/22 08:16 Resp 18 03/05/22 07:15 BP 111/63 03/05/22 07:15 Pulse Ox 97 03/05/22 07:58 FiO2 36 02/21/22 00:31 Intake & Output 03/04/22 03/05/22 03/05/22 18:59 06:59 18:59 Intake Total 100 240 Output Total 400 200 Balance 100 -400 40 Weight 75.296 kg Intake: Intake, IV Titration 100 Amount Piperacillin-Tazobactam 3 100 .375 gm In Sodium Chloride 0.9% 100 ml @ 25 mls/hr IVPB Q8HR [facility] Rx# :[id number] Oral 240 Output: Urine 200 200 Stool 200 Other: Voiding Method Urinal Urinal - Exam GENERAL DESCRIPTION: An elderly male lying in bed in no distress RESPIRATORY SYSTEM: Unlabored breathing , coarse breath sounds bilaterally HEART: S1 S2 regular rate and rhythm , ABDOMEN: Soft , incision is intact and currently dressed EXTREMITIES: No edema feet - Labs CBC & Chem 7: 03/05/22 07:08 03/05/22 07:08 Labs: Abnormal Lab Results - Last 24 Hours (Table) 03/05/22 03/05/22 Range/Units 07:08 07:08 RBC 2.33 L (4.40-5.60) X 10*6/uL Hgb 7.1 L (13.0-17.0) g/dL Hct 22.0 L (39.6-50.0) % RDW 15.2 H (11.5-14.5) % Immature Gran # 0.09 H (0.00-0.04) X 10*3/uL Creatinine 1.7 H (0.6-1.5) mg/dL Est GFR (CKD-EPI)AfAm 43.8 L (60.0-200.0) Est GFR (CKD-EPI)NonAf 37.8 L (60.0-200.0) Calcium 8.6 L (8.7-10.3) mg/dL Assessment and Plan (1) Pneumonia Current Visit: No Status: Acute Code(s): J18.9 - PNEUMONIA, UNSPECIFIED ORGANISM SNOMED Code(s): 646201371 Plan: 1patient with end-stage COPD this patient with a history of recurrent pneumo nias and patient was getting treatment for multidrug resistant Pseudomonas pneumonia when he got admitted to the hospital for Bowel obstruction in this patient who is status post laparotomy lysis of adhesion repair of incisional hernia and small bowel resection patient becomes the gum or shortness of breath requiring supplemental oxygen concerning for possible pneumonia. 2 patient sputum did grow pseudomonas that is resistant to meropenem but sensitive to Zosyn 5- patient did have a minimal clinical improvement as far as respiratory status and the patient will continue with the Zosyn and monitor clinical course closely Time with Patient: Less than 30
[2022-03-05] MEDS: MAGNESIUM OXIDE 400 MG TAB PO SCH (20:51)
[2022-03-06] MEDS: HYDROmorphone 1 MG/ML 1 ML SYRINGE IVP PRN ×2 (00:27→23:49)
[2022-03-06 07:54] VITALS: RESP 18
[2022-03-06] MEDS: FORMOTEROL FUMARATE 20 MCG/2 ML NEBU INHALATION SCH ×2 (08:08→20:14)
[2022-03-06] MEDS: BUDESONIDE 1 MG/2 ML NEBU INHALATION SCH ×2 (08:08→20:14)
[2022-03-06] MEDS: IPRATROPIUM-ALBUTEROL 3 ML NEB INHALATION SCH ×4 (08:08→20:14)
[2022-03-06 08:31] LABS: Basophils # (A) 0.04 X 10*3/uL (0.00-0.10); Basophils % (A) 0.4 %; Eosinophils # (A) 0.38 X 10*3/uL (0.04-0.35); Eosinophils % (A) 3.7 %; HCT 25.3 % (39.6-50.0); Immature Grans, Automated 1.3 %; Lymphocytes # (A) 1.81 X 10*3/uL (0.90-5.00); Lymphocytes % (A) 17.4 %; MCH 30.7 pg (27.0-32.0); MCHC 31.6 g/dL (32.0-37.0); MCV 96.9 fL (80.0-97.0); Mean Platelet Volume 11.7 fL (9.5-12.2); Monocytes # (A) 0.88 X 10*3/uL (0.20-1.00); Monocytes % (A) 8.5 %; NRBC Per 100 WBC 0 /100 WBCS (0.0-0.0); Neutrophils # (A) 7.14 X 10*3/uL (1.80-7.70); Neutrophils % (A) 68.7 %; Platelet Count 474 X 10*3/uL (140-440); RBC 2.61 X 10*6/uL (4.40-5.60); RDW 14.6 % (11.5-14.5); WBC 10.38 X 10*3/uL (4.50-10.00)
[2022-03-06] MEDS: PIPERACILLIN-TAZOBACTAM 3.375 GM in SODIUM CHLORIDE 0.9% 100 ML IVPB SCH ×3 (08:35→23:30)
[2022-03-06] MEDS: LACTOBACILLUS ACIDOPH & BULGAR 1 EACH PACKET PO SCH (08:36)
[2022-03-06] MEDS: MONTELUKAST 10 MG TAB PO SCH (08:36)
[2022-03-06] MEDS: METOPROLOL TARTRATE 25 MG TAB PO SCH ×2 (08:36→20:19)
[2022-03-06] MEDS: CHOLECALCIFEROL 25 MCG (1000 IU) TABLET PO SCH (08:36)
[2022-03-06] MEDS: PANTOPRAZOLE 40 MG TABLET PO SCH (08:36)
[2022-03-06] MEDS: DOXAZOSIN 4 MG TAB PO SCH (08:36)
[2022-03-06] MEDS: ASCORBIC ACID 500 MG TAB PO SCH (08:36)
[2022-03-06] MEDS: ENOXAPARIN 40 MG/0.4 ML SYRINGE SQ SCH (08:36)
[2022-03-06] MEDS: guaiFENesin 600 MG TABLET.ER PO SCH ×2 (08:36→19:58)
[2022-03-06] MEDS: allopurinoL 100 MG TAB PO SCH (08:36)
[2022-03-06] MEDS: SIMETHICONE 40 MG/0.6 ML DROPS 2,000 MG/30 ML BOTTLE PO SCH ×4 (08:37→19:58)
[2022-03-06 08:44] LABS: African American GFR (CKD) 47.1 (60.0-200.0); Anion Gap 8.6 mmol/L (10.00-18.00); BUN/Creat Ratio 13.13 Ratio (12.00-20.00); Calcium 8.6 mg/dL (8.7-10.3); Carbon Dioxide 28.4 mmol/L (20.0-27.5); Non-African American GFR(CKD) 40.7 (60.0-200.0); Potassium 4.5 mmol/L (3.5-5.5)
--- NOTE | 2022-03-06 13:56 | P.PN ---
Subjective Progress Note Date: 03/06/22 CHIEF COMPLAINT: Small bowel obstruction HISTORY OF PRESENT ILLNESS: Patient is status post small bowel resection, extensive lysis of adhesions and repair of incisional hernia on 02/19/22. Ostomy is functioning. He reports his pain is controlled. He is eating and tolerating diet. Patient reports improvement in his breathing. He still has cough. Afebrile. WBC is mildly up 10.38. hgb 7.1 to 8 after 1 unit. Cr 1.6. Pulmonary is cleared patient for discharge PHYSICAL EXAM: VITAL SIGNS: Reviewed. GENERAL: Well-developed in no acute distress. HEENT: No sclera icterus. Extraocular movements grossly intact. Moist buccal mucosa. Head is atraumatic, normocephalic. ABDOMEN: Soft. Nondistended. Ostomy with stool present. Incision intact. Mild drainage noted at the distal aspect of the incision And left-sided abdomen between the incision and ostomy there is an area of loose skin with small pinpoint opening with serossanguinous drainage. NEUROLOGIC: Alert and oriented. Cranial nerves II through XII grossly intact. ASSESSMENT: 1. Small bowel obstruction secondary to internal hernia from adhesive band status post extensive lysis of adhesions, small bowel resection and repair of incisional hernia 2. Gallbladder sludge noted on CT. Patient denies any right upper quadrant pain 3. Prior history of diverticulitis with perforation and bowel resection with colostomy placement 4. Pneumonia 5. Postoperative ileus resolved PLAN: -Continue dysphagia chopped diet -Continue pain management -Continue to monitor incision site -Encouraged patient to increase activity level -Encouraged patient to use incentive spirometer -Continue GI prophylaxis Protonix and DVT prophylaxis Lovenox Physician Character Artist note has been reviewed by physician. Signing provider agrees with the documented findings, assessment, and plan of care. Objective - Vital Signs Vital signs: Vital Signs Temp 98.5 F 03/06/22 13:38 Pulse 77 03/06/22 13:38 Resp 18 03/06/22 13:38 BP 111/65 03/06/22 13:38 Pulse Ox 96 03/06/22 13:38 FiO2 36 02/21/22 00:31 Intake & Output 03/05/22 03/06/22 03/06/22 18:59 06:59 18:59 Intake Total 645 500 Output Total 500 1700 200 Balance 145 -1200 -200 Weight 75.296 kg Intake: Intake, IV Titration 100 Amount Piperacillin-Tazobactam 3 100 .375 gm In Sodium Chloride 0.9% 100 ml @ 25 mls/hr IVPB Q8HR [facility] Rx# :[id number] Oral 358 400 Blood Product 287 Rc Pheresis 2 As3 Unit 287 [id number] Output: Urine 200 1500 Stool 300 200 200 Other: Voiding Method Urinal Urinal # Bowel Movements 1 - Labs CBC & Chem 7: 03/06/22 06:23 03/06/22 06:23 Labs: Abnormal Lab Results - Last 24 Hours (Table) 03/05/22 03/06/22 03/06/22 Range/Units 12: 06:23 06:23 WBC 10.38 H (4.50-10.00) X 10*3/uL RBC 2.61 L (4.40-5.60) X 10*6/uL Hgb 8.0 L (13.0-17.0) g/dL Hct 25.3 L (39.6-50.0) % MCHC 31.6 L (32.0-37.0) g/dL RDW 14.6 H (11.5-14.5) % Plt Count 474 H (140-440) X 10*3/uL Immature Gran # 0.13 H (0.00-0.04) X 10*3/uL Eosinophils # 0.38 H (0.04-0.35) X 10*3/uL Carbon Dioxide 28.4 H (20.0-27.5) mmol/L Anion Gap 8.60 L (10.00-18.00) mmol/L Creatinine 1.6 H (0.6-1.5) mg/dL Est GFR (CKD-EPI)AfAm 47.1 L (60.0-200.0) Est GFR (CKD-EPI)NonAf 40.7 L (60.0-200.0) Calcium 8.6 L (8.7-10.3) mg/dL Crossmatch See Detail
--- NOTE | 2022-03-06 14:13 | P.PN ---
Subjective Progress Note Date: 03/06/22 Principal diagnosis: Small bowel obstruction, postoperative ileus. This is a 76-year-old male who is very well-known to me, hospitalized on multiple occasions for pneumonia with gram-negative most recent infection was related to Pseudomonas and the patient was taken off the patient antibiotics with IV meropenem. The patient has history of COPD, lung mass that was treated with SBR T and history of tracheal bronchomalacia. He has had multiple pneumonias and multiple hospitalizations in the past for the same. During the most recent hospitalization of jan 2022, the patient was treated for a recurrent Pseudomonas pneumonia Note that the patient has had previous infections with Pseudomonas, stenotrophomonas, and MRSA. The patient came into the ED with complaints of diffuse abdominal pain but more in the right lower abdomen. Patient reports that his abdominal pain started Thursday morning. The pain came on suddenly. He'd been nauseated and having acid reflux. She reports that his ostomy output had decreased he was still making a small amount of stool through his ostomy. But has stopped having any flatus over the last couple a days. Patient does have a prior history of diverticulitis with perforation requiring bowel resection with colostomy placement in March 2021 in [place]. He also has a past surgical history of a right inguinal hernia repair. Patient had a computed tomography scan abdomen and pelvis showing a small bowel obstruction. NG tube is being placed in the ER. History of a pulmonary lung nodule requiring radiation treatment. He does have factor V Leiden mutation. The patient is seen today 02/18/2022 in follow-up on the regular medical floor. He is currently sitting up at the bedside. Awake and alert in no acute distress. Nasogastric tube remains in place. Still with very minimal output of the ostomy. White count 15.0. Hemoglobin 10.0. Sodium 139. Potassium 4.8. BUN 38. Creatinine 1.7. He is continued on DuoNeb inhalations, Symbicort, Singulair. Heparin for DVT prophylaxis. Surgical services are on the case. He is currently on antibiotics in the form of meropenem. The patient is seen today 02/19/2022 in follow-up. He did undergo a exploratory laparotomy with lysis of adhesions with Dr. Maribel laguna. He tolerated the procedure well. His back in the regular medical floor. He is maintaining good O2 saturations in the 90s on 2 L/m per nasal cannula. Afebrile. Hemodynamically stable. White count 14.5. Hemoglobin 9.8. Sodium 139. Potassium 4.3. Chloride 108. Bicarb 22. BUN 39. Creatinine 1.46. Glucose 69. The patient is seen today 02/20/2022 in follow-up on the regular medical floor. He is postoperative day #1. He did undergo extensive lysis of adhesions, small bowel resection and repair of incisional hernia. He is awake and alert. he is maintaining O2 saturations in the low 90s on 4 L/m per nasal cannula. There is a small amount of stool in his ostomy. White count 9.9. Hemoglobin 9.7. Sodium 142. Potassium 4.7. Bicarb 21. BUN 56. Creatinine 1.88. Glucose 103. He is working with the incentive spirometer. He is continued on DuoNeb inhalations, Symbicort, Mucinex, Singulair. He is on antibiotics in the form of meropenem. 02/21/2022, Anival is doing well. He remains nothing by mouth. NG tube is in place and there are plans to remove the NG tube today. The colostomy site has without some minimal amount of output. Surgical once is striking and intact. He has a congested cough. he is bringing minimal amount of sputum. He remains on IV meropenem regarding recurrent pseudomonal pneumonias. Note that the patient underwent an extensive surgery which involved last of adhesions, small bowel resection and repair of an incisional hernia. He had complete bowel obstruction. He remains on Lovenox portably prophylaxis. Remains on bronchodilators. Incentive spirometer and flutter valve at the bedside. Labs from today are still pending. Creatinine from yesterday was 1.88 with a BUN of 56 and a sodium level of 142. Normocytic on is down to 9.9. He is awake and alert and sitting up on a chair is postop day #2. On 02/22/2022, the patient is sitting up on a chair. He has a congested cough. He remains on IV meropenem. Limited activity and his colostomy bag. Bowel sounds are still hypoactive. Surgical once is striking and intact. NG tube was removed. His taken no chills. No new complaints. White cell count is at 8.8 with a hemoglobin of 9.4. BUN is at 66 with a creatinine of 1.7 and sodium level is at 141. He is ambulating without a walker. On today's evaluation of 02/23/2022, the patient denies having any nausea and vomiting. GI surgeries on the case regarding the progress of the surgery. NG tube remains out. The bowel function has not returned yet. The patient is taking anxious. He is active. He is having total for pain control. Restasis as remains stable and the patient remains on IV meropenem. Remains on DuoNeb about treatments [id number]. Using incentive spirometer. Blood work from today shows that the dermis count is at 7.4 with a hemoglobin drop 9.5. BUN is at 61 with a creatinine 1.6 and a sodium level is at 144. The patient is seen today 02/24/2022 in follow-up on the regular medical floor. He is currently resting fairly comfortably in bed. He is awake and alert in no acute distress. He is having some ongoing issues with abdominal discomfort. He was having episodes of nausea and vomiting last night and a nasogastric tube was reinserted. He is maintaining good O2 saturation in the 90s on 4 L/m per nasal cannula. He is afebrile. Hemodynamically stable. Most recent chest x-ray still revealing a right lower lobe opacities. Sodium 145. Potassium 3.9. BUN 67. Creatinine 1.49. ProBNP 1400. The patient is continued on Symbicort, DuoNeb inhalations. Antibiotics in the form of meropenem. DVT prophylaxis with Lovenox. Normal saline at 50 MLS per hour. Evaluating this patient on 02/25/2022 on a regular medical floor. He appears fairly comfortable. NG tube remains in place to low intermittent suction. No more episodes of nausea and vomiting. Although, the abdomen is mason tender restoration labor to palpation. Abdominal CT from yesterday shows postoperative ileus, and small bila teral pleural effusions. Surgery is still on the case. His oxygen saturation is adequate on 4 L nasal cannula. Patient denies shortness of breath. He still has a congested productive cough. No new CBC today. BMP shows sodium 143, potassium 3.7, chloride 108, serum CO2 35, BUN 62, creatinine 1.47, glucose 161. He is receiving PPN at 80 ml/hr. He is receiving DuoNeb 4 times a day and Symbicort inhaler. DVT prophylaxis with Lovenox, and GI prophylaxis with Protonix. Evaluating this patient today on 02/26/2022, on regular medical floor. His abdominal tenderness has slightly improved over the last 24 hours. His NG tube remains to low intermittent suction, and he denies any nausea or vomiting . Receiving TPN at 80 ML's per hour through left upper arm PICC. Patient reports small amount of air an ostomy pouch. Surgery continues to follow this patient daily. From respiratory standpoint, patient remains on 4 L nasal cannula. He denies any respiratory distress. He does have a congested, nonproductive cough and is receiving Mucinex. Incentive spirometer is at bedside. He remains afebrile. CBC count from today reveals no leukocytosis. WBC count 9, in [place] 8.8, hematocrit 29, platelet 250,000. BMP from today is stable sodium 142, potassium 3.6, chloride 108, serum CO2 31, BUN 59, serum creatinine 1.21, glucose 180. Maintained empirically on meropenem. Continues receiving DuoNeb nebulization and Symbicort inhaler. Receiving Lovenox for DVT prophylaxis and Protonix for GI prophylaxis. Overall condition is slightly improved from yesterday. I'm reevaluating this patient today on 02/27/2022. He remains on a general medical floor. He is still on 4 L nasal cannula, and denies any respiratory distress. Sputum culture is pending. He continues to have a congested nonproductive cough receiving Mucinex. He has a flutter valve and incentive spirometer at bedside. His abdominal tenderness continues to improve, and he has not had any further nausea or vomiting. His NG tube was discontinued by surgery, and he was started on a clear liquid diet. He continues to's receiving supplemental nutrition in the form of TPN at 80 ML's per hour through a left upper arm PICC. Patient has small amount of air and stool in his ostomy pouch. Surgery is still following this patient. No CBC from today. BMP is stable sodium 140, potassium 3.7, chloride 108, serum CO2 33, BUN 55, creatinine 1.18, glucose 164. Continues receiving DuoNeb nebulization and Symbicort inhaler. Receiving Lovenox for DVT prophylaxis and Protonix for GI prophylaxis. Reevaluating this patient today on 02/28/2022. He remains on a general medical floor. He remains on 4 L nasal cannula, and denies any respiratory distress. He does have congested nonproductive cough and is receiving Mucinex. Repeat chest x-ray was performed yesterday on 02/27/2022. It showed suspicious spiculated 1.9 cm density in the right midlung, small bilateral pleural effusions, and a right lower lobe infiltrate. The right lower lobe infiltrate looks slightly better from prior study The preliminary results of the patient's sputum culture is negative so far. Patient remains afebrile. CBC from today 1222 continues to show no leukocytosis WBC count is 8.7, hemoglobin 5, hematocrit 26, platelet 286,000. Patient remains on meropenem. He is still receiving DuoNeb nebulization and Symbicort inhaler. He is receiving supplemental nutritional support form of TPN at 80 ML's per hour through a left upper arm PICC. BMP remained stable with a sodium level of 136, potassium 3.5, chloride 102, serum CO2 32, BUN 52, creatinine 1.16, glucose 171. Patient's generalized abdominal pain continues. He has good ostomy output. Surgery is on the case. Coughing and deep breathing have been encouraged. Incentive spirometer at bedside. Receiving Lovenox for DVT prophylaxis and Protonix for GI prophylaxis. The patient is seen today 03/01/2022 in follow-up on the regular medical floor. He is awake and alert in no acute distress. He is still having some abdominal discomfort. He is passing flatus and stool in the ostomy bag. He is tolerating a regular diet. Patient culture is positive for pseudomonas aeruginosa. The patient is a colonizer. He is currently on meropenem however this is resistant. He is maintaining good O2 saturation in the 90s on 4 L/m per nasal cannula. He is afebrile. Hemodynamically stable. Remains on Symbicort, DuoNeb inhalations. Adequate pain control. The patient is seen today 03/03/2022 in follow-up on the regular medical floor. He is currently resting fairly comfortably in bed. Awake and alert in no acute distress. Currently maintaining good O2 saturations in the 90s on 4 L/m per nasal cannula. He is afebrile. Hemodynamically stable. Barium swallow today reveals silent aspiration with thin liquids. Single episode of transient penetration with nectar consistency. No other penetration or aspiration is seen. Patient's therapy recommending continuation of a dysphagia III, chopped texture diet. Colostomy continues to function well. White count 7.0. Hemoglobin 8.0. Platelets 367. Sodium 140. Potassium 4.7. BUN 36. Creatinine 1.4. Glucose 75. He remains on Symbicort, DuoNeb inhalations. Antibiotics in the form of Zosyn. Lovenox for DVT prophylaxis. The patient is seen today 03/04/2022 in follow-up on the regular medical floor. He is awake and alert in no acute distress. Currently resting fairly comfortably in bed. Maintaining O2 saturations in the low 90s on 4 L/m per nasal cannula. He is afebrile. Hemodynamically stable. Continues with a loose cough. Sputum culture again positive for pseudomonas aeruginosa. White count 7.9. Hemoglobin 8.0. Sodium 136. Potassium 4.6. BUN 32. Creatinine 1.56. He remains on Zosyn, DuoNeb inhalations, Symbicort. Lovenox for DVT prophylaxis. Dilaudid for pain control. Encouraged regarding the increased use of the incentive spirometer. Chest x-ray continues to show small to moderate right pleural effusion with bilateral lower lung atelectasis/consolidation. Right upper lobe nodularity region demonstrated. The patient has received stereotactic radiation treatment to the right upper lobe in the past. I'm reevaluating this patient today on 03/05/2022 on a regular medical floor. He is awake and alert in no acute distress, sitting up in bed, on 4 L nasal cannula. Denies any significant shortness of breath, chest pain, fever. His abdominal tenderness continues to improve, there is output in his ostomy pouch. Vital signs all remain stable. CBC from today is continues to show some anemia with a WBC count of 8, hemoglobin is 7.1, hematocrit 22, platelets 120,000. BMP from today was stable with a sodium of 141, potassium 4.7, chloride 104, serum CO2 27, BUN 25, creatinine 1.7, glucose 92. He remains on Zosyn for a positive sputum culture on 02/25/2022 for pseudomonas aerogunisa. No new x-rays to review today. Patient continues to receive DuoNeb inhalation, budesonide inhalation, formoterol inhalation, Singulair, Mucinex. Patient has been encouraged to use his incentive spirometer is currently at his bedside. I'm reevaluating this patient today on 03/06/2022 on a regular medical floor. Patient in bed on 4 L nasal cannula. Denies any significant respiratory distress. he continues to have a nonproductive congested cough. Incentive spirometer is at bedside. saline is using KVO. He continues on Zosyn for a positive sputum culture on 02/25/2022 for pseudomonas. He remains afebrile. CBC from today is stable with a WBC count of 10.4, hemoglobin 8, hematocrit 25, platelets 474,000. BMP results include a sodium of 140, potassium 4.5, chloride 103, serum CO2 28.4, BUN 21, creatinine 1.6, glucose 76. Continuing DuoNeb inhalation, budesonide inhalation, formoterol inhalation. Patient is hemodynamically stable. The plan is for discharge to [facility] for rehab. Objective - Vital Signs Vital signs: Vital Signs Temp 98.5 F 03/06/22 13:38 Pulse 77 03/06/22 13:38 Resp 18 03/06/22 13:38 BP 111/65 03/06/22 13:38 Pulse Ox 96 03/06/22 13:38 FiO2 36 02/21/22 00:31 Intake & Output 03/05/22 03/06/22 03/06/22 18:59 06:59 18:59 Intake Total 645 500 Output Total 500 1700 200 Balance 145 -1200 -200 Weight 75.296 kg Intake: Intake, IV Titration 100 Amount Piperacillin-Tazobactam 3 100 .375 gm In Sodium Chloride 0.9% 100 ml @ 25 mls/hr IVPB Q8HR [facility] Rx# :[id number] Oral 358 400 Blood Product 287 Rc Pheresis 2 As3 Unit 287 [id number] Output: Urine 200 1500 Stool 300 200 200 Other: Voiding Method Urinal Urinal # Bowel Movements 1 - Exam GENERAL EXAM: Alert, 76-year-old male, on 4 L nasal cannula, fairly comfortable in no apparent distress. HEAD: Normocephalic. EYES: Normal reaction of pupils, equal size. NOSE: Clear with pink turbinates. THROAT: No erythema or exudates. NECK: No masses, no JVD. CHEST: No chest wall deformity. LUNGS: Equal air entry with scattered crackles in the right lung base. Congested cough. CVS: S1 and S2 normal with no audible murmur, regular rhythm. ABDOMEN: Improved tenderness on palpation. Incisional dressing dry and intact. Umbilical hernia reducible nontender. Ostomy bag on the side of abdomen with some air and stool in the pouch. SPINE: No scoliosis or deformity SKIN: No rashes CENTRAL NERVOUS SYSTEM: No focal deficits, tone is normal in all 4 extremities. EXTREMITIES: There is no peripheral edema. No clubbing, no cyanosis. Periphera l pulses are intact. - Labs CBC & Chem 7: 03/06/22 06:23 03/06/22 06:23 Labs: Abnormal Lab Results - Last 24 Hours (Table) 03/05/22 03/06/22 03/06/22 Range/Units : 06: 06:23 WBC 10.38 H (4.50-10.00) X 10*3/uL RBC 2.61 L (4.40-5.60) X 10*6/uL Hgb 8.0 L (13.0-17.0) g/dL Hct 25.3 L (39.6-50.0) % MCHC 31.6 L (32.0-37.0) g/dL RDW 14.6 H (11.5-14.5) % Plt Count 474 H (140-440) X 10*3/uL Immature Gran # 0.13 H (0.00-0.04) X 10*3/uL Eosinophils # 0.38 H (0.04-0.35) X 10*3/uL Carbon Dioxide 28.4 H (20.0-27.5) mmol/L Anion Gap 8.60 L (10.00-18.00) mmol/L Creatinine 1.6 H (0.6-1.5) mg/dL Est GFR (CKD-EPI)AfAm 47.1 L (60.0-200.0) Est GFR (CKD-EPI)NonAf 40.7 L (60.0-200.0) Calcium 8.6 L (8.7-10.3) mg/dL Crossmatch See Detail Assessment and Plan Assessment: Small bowel obstruction with distal right lower quadrant transition point noted on computed tomography scan, Prior history of diverticulitis with perforation and bowel resection with colostomy placement. Status post exploratory laparotomy with lysis of adhesions, small bowel resection, repair of incisional hernia on 02/19/2022. Developed nausea and vomiting and required nasal tube reinsertion on 02/23/2022. Postoperative ileus resolved. NG tube discontinued 02/27/2022. Abdominal pain improved, and no further nausea or vomiting. Diet was advanced to a dysphagia level III chopped diet with nectar thick liquids. There is good ostomy output. Umbilical hernia reducible. status post repair Gallbladder sludge noted on CT, no evidence of cholecystitis Recurrent pneumonia. The patient is having recurrent pneumonia/tracheobronchitis with pseudomonas and other gram-negative bacteria. Completed course Meropenem. Patient remains afebrile. Right-sided pleural effusion with patchy consolidation of the right lower lobe chronic hypoxic respiratory failure currently on 4 L of O2 nasal cannula Chronic COPD maintain on Trelegy Ellipta on an outpatient basis Tracheobronchomalacia Recurrent respiratory tract infection with pseudomonas aeruginosa, E. coli, MRSA Right upper lobe pulmonary nodule avid on the previous PET scan and this was active on a PET scan and the patient was treated with SBRT Right renal mass being followed up on outpatient basis Factor 5 Ley[place] mutation Previous history of left lower extremity DVT Hypertension Chronic stage III kidney disease History of colonic perforation requiring colectomy and colostomy. Obstructive sleep apnea not using CPAP therapy Diverticulosis with previous history of diverticulitis Multiple hepatic cystsis Plan: The patient was seen and evaluated medications and labs reviewed Continue Zosyn Mucinex for congestion, Continue DuoNeb, budesonide, formoterol inhalations. Encourage incentive spirometer use. Increase his activity as tolerated Lovenox for DVT prophylaxis Protonix for GI prophylaxis Cleared from a pulmonary standpoint, to a subacute rehab center in order to finish outpatient treatment. I have personally seen and examined the patient, performed the documentation and the assessment and plan as written. Number of minutes spent on the visit: [10 ] . Time with Patient: Less than 30
--- NOTE | 2022-03-06 14:46 | CDI ---
Documentation Clarification Form Date: 03/06/2022 02:31:19 PM From: Danuta Simpson CCS, CCDS Admit Date: 02/17/2022 11:14:00 AM Patient Name: Anival Chavez Visit Number: [id number] Discharge Date: ATTENTION: The Clinical Documentation Specialists (CDI) and [facility] Coding Staff appreciate your assistance in clarifying documentation. Please respond to the clarification below the line at the bottom and electronically sign. The CDI & [facility] Coding staff will review the response and follow-up if needed. Please note: Queries are made part of the Legal Health Record. If you have any questions, please contact the author of this message via ITS. Dr. Sloan Chen: Symptomatic Anemia is documented in the 03/05 Attending Physician Progress note without further specificity. Additional specificity regarding the Type & Acuity of Anemia is requested. History/Risk Factors per the 02/17 H/P: Diverticulitis with perforation requiring bowel resection with Colostomy March 2021 in [place] & history of right inguinal hernia repair. Factor V Leiden mutation, Renal mass, Pseudomonas Pneumonia, Hepatic cysts, CKD, Hypertension, GERD, COPD, DVT, Home O2, Sleep apnea, MRSA sputum infection 08/28. Clinical indicators: presented to the ED on 02/17 with Abdominal pain via EMS. Abdomen is hard & distended. Admit with SBO 02/19 Procedure for SBO: Extensive lysis of adhesions, Small bowel resection, Repair of incisional hernia. Hemoglobin 02/17: 12.3. 02/19: 9.8. 02/26: 8.8. 02/28: 8.5. 03/01: 7.8. 03/04: 8.0. 03/06: 8.0. Hematocrit 02/17: 36.9. 02/19: 30.1. 02/26: 28.8. 02/28: 26.4. 03/01: 24.2. 03/04: 25.1. 03/06: 25.3. Treatment 02/17: Pulmonary Consult. IVF Na Chl 1,000 mls @ 999 mls/hr q1H, IV Dilaudid 0.5 mg q3H/prn, IV Zofran 4 mg q8H/prn, IVF 1,000 mls @ 75 mls/hr q13H, INH Ventolin, IV Merrem 1 gm TID, IV Meropenem 100 mls @ 33.333 mls/hr q8H, INH Duoneb BID, INH Pulmicort 0.25 mg BID, INH Symbicort 2 puffs BID, Heparin sq 03/05 Blood Transfusion: 1 unit PRBCs. Please clarify the Type & Acuity of Anemia: [ ] Acute blood loss anemia [ ] Acute on chronic blood loss anemia [ ] Chronic blood loss anemia [ ] Hemolytic anemia [ ] Drug induced anemia [ ] Anemia due to malignancy [ ] Nutritional anemia [ ] Anemia of chronic kidney disease [ ] Anemia due to other chronic disease [ ] Unable to determine [ ] Other, please specify (Template Last Revised: April 2020) Unable to determine MTDD
--- NOTE | 2022-03-06 19:00 | P.PN ---
Subjective This is a pleasant 76 years old male with multiple medical problems including COPD, history of deep venous thrombosis more than 10 years ago with history of factor V Leiden mutation, patient currently is not on anticoagulation. History of GERD, hypertension, chronic kidney disease, sleep apnea, chronic hypoxic respiratory failure and 2 L, history of lung cancer patient was admitted secondary to signs symptoms of small bowel obstruction secondary to internal hernia he then underwent exploratory laparotomy with lysis of adhesion and 02/19 with hernia repair by surgery team, patient has been monitored in the ICU closely and transferred to the general medical floor recently. Patient currently lying in bed, not in distress, mildly tachypneic. No significant abdominal pain or tenderness, tenderness diet well and is eating 2500% of his meals. Patient states that he is having bowel movements, it looks brown stool in his left lower quadrant colostomy bag. Patient is been filled closely by surgery team Also patient is on antibiotics Zosyn with ID team on the case. Patient also with evidence of right lower lobe pneumonia, recurrent with sputum culture grown Pseudomonas, it looks improving and pulmonary team or rigidity. The patient for discharge to rehab. When I talked to the patient today is feeling he needs to go to rehab and he is agreeable. He denies chest pain or dyspnea at rest however he complains from exertional dyspnea, no urinary complaints, no headache dizziness weakness or numbness. Patient also aware about his right upper lung nodule, stating he will follow up with pulmonology service as an outpatient Also he follows up with [facility] for his renal mass, patient states he will follow-up in 2 weeks and he has the contact information with family who help him follow up with his appointment. He is saturating 9742 oxygen via nasal cannula WBC 10.3, hemoglobin 8 is stable, creatinine at baseline of 1.6 Objective - Vital Signs Vital signs: Vital Signs Temp 98.2 F 03/06/22 07:53 Pulse 90 03/06/22 08:30 Resp 18 03/06/22 07:53 BP 125/72 03/06/22 07:53 Pulse Ox 94 L 03/06/22 08:09 FiO2 36 02/21/22 00:31 Intake & Output 03/05/22 03/06/22 03/06/22 18:59 06:59 18:59 Intake Total 645 500 Output Total 500 1700 200 Balance 145 -1200 -200 Weight 75.296 kg Intake: Intake, IV Titration 100 Amount Piperacillin-Tazobactam 3 100 .375 gm In Sodium Chloride 0.9% 100 ml @ 25 mls/hr IVPB Q8HR ON LICENSE OF [facility] Rx# :[id number] Oral 358 400 Blood Product 287 Rc Pheresis 2 As3 Unit 287 [id number] Output: Urine 200 1500 Stool 300 200 200 Other: Voiding Method Urinal Urinal # Bowel Movements 1 - Exam -GENERAL: The patient is alert and oriented x3, not in any acute distress. Well developed, well nourished. Generally weak HEENT: Pupils are round and equally reacting to light. EOMI. No scleral icterus. No conjunctival pallor. Normocephalic, atraumatic. No pharyngeal erythema. No thyromegaly. CARDIOVASCULAR: S1 and S2 present. No murmurs, rubs, or gallops. -PULMONARY: Chest is clear to auscultation, no wheezing or crackles. Mildly tachypneic -ABDOMEN: Soft, nontender, nondistended, normoactive bowel sounds. No palpable organomegaly. Colostomy with light brown stool MUSCULOSKELETAL: No joint swelling or deformity. EXTREMITIES: No cyanosis, clubbing, or pedal edema. NEUROLOGICAL: Gross neurological examination did not reveal any focal deficits. SKIN: No rashes. no petechiae. - Labs CBC & Chem 7: 03/06/22 06:23 03/06/22 06:23 Labs: Abnormal Lab Results - Last 24 Hours (Table) 03/05/22 03/06/22 03/06/22 Range/Units 12: 06:23 06:23 WBC 10.38 H (4.50-10.00) X 10*3/uL RBC 2.61 L (4.40-5.60) X 10*6/uL Hgb 8.0 L (13.0-17.0) g/dL Hct 25.3 L (39.6-50.0) % MCHC 31.6 L (32.0-37.0) g/dL RDW 14.6 H (11.5-14.5) % Plt Count 474 H (140-440) X 10*3/uL Immature Gran # 0.13 H (0.00-0.04) X 10*3/uL Eosinophils # 0.38 H (0.04-0.35) X 10*3/uL Carbon Dioxide 28.4 H (20.0-27.5) mmol/L Anion Gap 8.60 L (10.00-18.00) mmol/L Creatinine 1.6 H (0.6-1.5) mg/dL Est GFR (CKD-EPI)AfAm 47.1 L (60.0-200.0) Est GFR (CKD-EPI)NonAf 40.7 L (60.0-200.0) Calcium 8.6 L (8.7-10.3) mg/dL Crossmatch See Detail Assessment and Plan Assessment: Small bowel obstruction secondary to internal hernia status post exploratory laparotomy and lysis of adhesion and hernia repair on 02/19 Recurrent right lower lobe pneumonia Acute and chronic hypoxic respiratory failure History of diverticulitis and perforation status post colostomy Chronic kidney disease stage III Chronic hypoxic respiratory failure Right upper lung pulmonary nodule, patient is aware of the testis to follow up with pulmonary as an outpatient History of factor V Leiden mutation with remote history of DVT more than 10 years, currently not on anticoagulation History of renal mass status post SBFT and follow-up outpatient Plan: Continue with diet as tolerated Continue assisting Off IV fluid Pulmonary team cleared the patient for discharge Patient still follow by surgery and infectious disease team Labs and medication were reviewed.. Continue same treatment. Continue with symptomatic treatment. Resume home medication. Monitor lytes and vitals. DVT and GI prophylaxis. Further recommendations as per clinical course of the patient DVT prophylaxis: Subcutaneous Lovenox GI Prophylaxis: Ppi PT/OT: CR, patient is agreeable Prognosis is guarded
[2022-03-06] MEDS: MAGNESIUM OXIDE 400 MG TAB PO SCH (20:19)
--- NOTE | 2022-03-06 20:19 | P.PN ---
Subjective Progress Note Date: 03/06/22 Principal diagnosis: Pneumonia Patient is a 76 year old male with a past medical history significant for end-stage COPD patient did have a history of recurrent pneumonias recently did have a multidrug resistant Pseudomonas , admitted to the hospital abdominal pain diagnosed with a small bowel obstruction status post lysis of adhesions probable resection and repair of incisional hernia. On today's evaluation that is 03/06/2022, the patient continues to be afebrile, the patient is breathing comfortably on 4 L nasal cannula, the patient cough has decreased in intensity and less productive patient denies any abdominal pain , no nausea no vomiting Objective - Vital Signs Vital signs: Vital Signs Temp 98.5 F 03/06/22 13:38 Pulse 77 03/06/22 13:38 Resp 18 03/06/22 13:38 BP 111/65 03/06/22 13:38 Pulse Ox 96 03/06/22 13:38 FiO2 36 02/21/22 00:31 Intake & Output 03/05/22 03/06/22 03/06/22 18:59 06:59 18:59 Intake Total 645 500 Output Total 500 1700 200 Balance 145 -1200 -200 Weight 75.296 kg Intake: Intake, IV Titration 100 Amount Piperacillin-Tazobactam 3 100 .375 gm In Sodium Chloride 0.9% 100 ml @ 25 mls/hr IVPB Q8HR [facility] Rx# :[id number] Oral 358 400 Blood Product 287 Rc Pheresis 2 As3 Unit 287 [id number] Output: Urine 200 1500 Stool 300 200 200 Other: Voiding Method Urinal Urinal # Bowel Movements 1 - Exam GENERAL DESCRIPTION: An elderly male lying in bed in no distress RESPIRATORY SYSTEM: Unlabored breathing , coarse breath sounds bilaterally HEART: S1 S2 regular rate and rhythm , ABDOMEN: Soft , incision is intact and currently dressed EXTREMITIES: No edema feet - Labs CBC & Chem 7: 03/06/22 06:23 03/06/22 06:23 Labs: Abnormal Lab Results - Last 24 Hours (Table) 03/05/22 03/06/22 03/06/22 Range/Units 12: 06:23 06:23 WBC 10.38 H (4.50-10.00) X 10*3/uL RBC 2.61 L (4.40-5.60) X 10*6/uL Hgb 8.0 L (13.0-17.0) g/dL Hct 25.3 L (39.6-50.0) % MCHC 31.6 L (32.0-37.0) g/dL RDW 14.6 H (11.5-14.5) % Plt Count 474 H (140-440) X 10*3/uL Immature Gran # 0.13 H (0.00-0.04) X 10*3/uL Eosinophils # 0.38 H (0.04-0.35) X 10*3/uL Carbon Dioxide 28.4 H (20.0-27.5) mmol/L Anion Gap 8.60 L (10.00-18.00) mmol/L Creatinine 1.6 H (0.6-1.5) mg/dL Est GFR (CKD-EPI)AfAm 47.1 L (60.0-200.0) Est GFR (CKD-EPI)NonAf 40.7 L (60.0-200.0) Calcium 8.6 L (8.7-10.3) mg/dL Crossmatch See Detail Assessment and Plan (1) Pneumonia Current Visit: No Status: Acute Code(s): J18.9 - PNEUMONIA, UNSPECIFIED ORGANISM SNOMED Code(s): 719276162 Plan: 1patient with end-stage COPD this patient with a history of recurrent pneumonias and patient was getting treatment for multidrug resistant Pseudomonas pneumonia when he got admitted to the hospital for Bowel obstruction in this patient who is status post laparotomy lysis of adhesion repair of incisional hernia and small bowel resection patient becomes the gum or shortness of breath requiring supplemental oxygen concerning for possible pneumonia. 2 patient sputum did grow pseudomonas that is resistant to meropenem but sensitive to Zosyn 5- patient did have been improvement in his respiratory status, patient to continue continue with the Zosyn and monitor clinical course closely Time with Patient: Less than 30
[2022-03-07] MEDS: HYDROmorphone 1 MG/ML 1 ML SYRINGE IVP PRN (06:12)
[2022-03-07] MEDS: FORMOTEROL FUMARATE 20 MCG/2 ML NEBU INHALATION SCH (07:29)
[2022-03-07] MEDS: IPRATROPIUM-ALBUTEROL 3 ML NEB INHALATION SCH ×3 (07:29→15:19)
[2022-03-07] MEDS: BUDESONIDE 1 MG/2 ML NEBU INHALATION SCH (07:29)
[2022-03-07] MEDS: PIPERACILLIN-TAZOBACTAM 3.375 GM in SODIUM CHLORIDE 0.9% 100 ML IVPB SCH (08:22)
[2022-03-07] MEDS: ASCORBIC ACID 500 MG TAB PO SCH (08:23)
[2022-03-07] MEDS: MONTELUKAST 10 MG TAB PO SCH (08:23)
[2022-03-07] MEDS: DOXAZOSIN 4 MG TAB PO SCH (08:23)
[2022-03-07] MEDS: allopurinoL 100 MG TAB PO SCH (08:23)
[2022-03-07] MEDS: ENOXAPARIN 40 MG/0.4 ML SYRINGE SQ SCH (08:23)
[2022-03-07] MEDS: PANTOPRAZOLE 40 MG TABLET PO SCH (08:23)
[2022-03-07] MEDS: LACTOBACILLUS ACIDOPH & BULGAR 1 EACH PACKET PO SCH (08:24)
[2022-03-07] MEDS: CHOLECALCIFEROL 25 MCG (1000 IU) TABLET PO SCH (08:24)
[2022-03-07] MEDS: METOPROLOL TARTRATE 25 MG TAB PO SCH (08:24)
[2022-03-07] MEDS: SIMETHICONE 40 MG/0.6 ML DROPS 2,000 MG/30 ML BOTTLE PO SCH (08:24)
[2022-03-07] MEDS: guaiFENesin 600 MG TABLET.ER PO SCH (08:26)
--- NOTE | 2022-03-07 10:08 | P.PN ---
Subjective Progress Note Date: 03/07/22 Principal diagnosis: Bowel obstruction Patient feels better today. Yesterday he was quite depressed about his shortness of breath. He says he slept well last night and his breathing is improved this morning. No abdominal pain. Tolerating diet. Normal bowel function through ostomy. Objective - Vital Signs Vital signs: Vital Signs Temp 98.5 F 03/07/22 07:43 Pulse 84 03/07/22 07:55 Resp 18 03/07/22 07:43 BP 120/70 03/07/22 07:43 Pulse Ox 97 03/07/22 07:43 FiO2 36 02/21/22 00:31 Intake & Output 03/06/22 03/07/22 03/07/22 18:59 06:59 18:59 Intake Total 200 1060 Output Total 1700 1000 Balance -1500 60 Intake: Intake, IV Titration 200 100 Amount Piperacillin-Tazobactam 3 200 100 .375 gm In Sodium Chloride 0.9% 100 ml @ 25 mls/hr IVPB Q8HR REPLACED BY [facility] Rx# :[id number] Oral 960 Output: Urine 600 Stool 1100 1000 Other: Voiding Method Urinal Urinal # Voids 2 - Exam Abdomen: Soft, nondistended, serous drainage from the lower midline incision and a small area between the midline incision and the ostomy, nontender - Labs CBC & Chem 7: 03/06/22 06:23 03/06/22 06:23 Assessment and Plan (1) SBO (small bowel obstruction) Narrative/Plan: Patient slowly improving. Continue pulmonary optimization. Continue diet as tolerated. Monitor incisional drainage. Will follow. Current Visit: Yes Status: Acute Code(s): K56.609 - UNSP INTESTNL OBST, UNSP TO PARTIAL VERSUS COMPLETE OBST SNOMED Code(s): 765210022
[2022-03-07] MEDS ORDERED: HYDROcodone/APAP 5-325MG 1 EACH TAB PO PRN (10:43)
[2022-03-07 10:45] LABS: Basophils # (A) 0.03 X 10*3/uL (0.00-0.10); Basophils % (A) 0.3 %; Eosinophils # (A) 0.36 X 10*3/uL (0.04-0.35); Eosinophils % (A) 3.4 %; HCT 24.9 % (39.6-50.0); HGB 7.7 g/dL (13.0-17.0); Immature Grans, Automated 0.8 %; Lymphocytes # (A) 1.51 X 10*3/uL (0.90-5.00); Lymphocytes % (A) 14.3 %; MCH 30.3 pg (27.0-32.0); MCHC 30.9 g/dL (32.0-37.0); Mean Platelet Volume 11.5 fL (9.5-12.2); Monocytes # (A) 0.71 X 10*3/uL (0.20-1.00); Monocytes % (A) 6.7 %; NRBC Per 100 WBC 0 /100 WBCS (0.0-0.0); Neutrophils # (A) 7.86 X 10*3/uL (1.80-7.70); Neutrophils % (A) 74.5 %; Platelet Count 484 X 10*3/uL (140-440); RBC 2.54 X 10*6/uL (4.40-5.60); RDW 14.6 % (11.5-14.5); WBC 10.55 X 10*3/uL (4.50-10.00)
[2022-03-07 11:03] LABS: African American GFR (CKD) 47.1 (60.0-200.0); Anion Gap 8.1 mmol/L (10.00-18.00); BUN/Creat Ratio 10.56 Ratio (12.00-20.00); Blood Urea Nitrogen 16.9 mg/dL (9.0-27.0); Calcium 8.6 mg/dL (8.7-10.3); Carbon Dioxide 27.9 mmol/L (20.0-27.5); Non-African American GFR(CKD) 40.7 (60.0-200.0); Potassium 4.4 mmol/L (3.5-5.5)
--- NOTE | 2022-03-07 11:30 | P.DS ---
Providers Date of admission: 02/17/22 11:14 Attending physician: Sloan Chen Consults: 02/17/22 13:01 Consult Physician Routine Consulting Provider: Ramona Cortez Consult Reason/Comments: copd Do you want consulting provider notified?: Yes 02/27/22 09:34 Consult Physician Routine Consulting Provider: Leandro Castillo Consult Reason/Comments: pneumonia, antibiotic mgt Do you want consulting provider notified?: Yes 03/03/22 12:35 Consult Physician Routine Consulting Provider: Que Munoz Consult Reason/Comments: abdominal pain Do you want consulting provider notified?: Already Contacted Primary care physician: Keshawn Suarez MD Hospital Course: Diagnoses: -Right lower lobe pneumonia, sputum culture growing Pseudomonas, resistant to Cipro Small bowel obstruction secondary to internal hernia status post exploratory laparotomy and lysis of adhesion and hernia repair on 02/19 Recurrent right lower lobe pneumonia -Acute on chronic hypoxic respiratory failure -History of diverticulitis and perforation status post colostomy -Chronic kidney disease stage III -Chronic hypoxic respiratory failure -Right upper lung pulmonary nodule, patient is aware of these nodules and he intends to follow up with pulmonary as an outpatient -History of factor V Leiden mutation with remote history of DVT more than 10 years, currently not on anticoagulation -History of renal mass status post SBFT and follow-up outpatient patient states that he follow up with efficiency miner Dr. Heath -history of lung cancer, diagnosed and treated down in [place]. He was treated with radiotherapy 2 years ago and currently he follow-up with Dr. Comer in every 6 months, next appointment should be on this coming March Hospital course: This is a pleasant 76 years old male with multiple medical problems including COPD, history of deep venous thrombosis more than 10 years ago with history of factor V Leiden mutation, patient currently is not on anticoagulation. History of GERD, hypertension, chronic kidney disease, sleep apnea, chronic hypoxic respiratory failure and 2 L, history of lung cancer patient was admitted secondary to signs symptoms of small bowel obstruction secondary to internal hernia he then underwent exploratory laparotomy with lysis of adhesion and 02/19 with hernia repair by surgery team, patient has been monitored in the ICU closely and transferred to the general medical floor recently. Patient Doing well and he has normal bowel movement with normal color going through the ostomy, patient tolerates diet well 25 -100%. A shunt was cleared for discharge by surgery team with recommendation to follow up as an outpatient and he has some very mild oozing from the surgical midline woundfor his laparotomy, however I looked at the wounds, escobar in place, wound is closed and there is very mild serous fluid from the middle , no purulent discharge, no bleeding. Besides patient was cleared by surgery team however over this. Patient also has been covered with Zosyn for culture is growing Pseudomonas which is resistant. Patient will be discharged on antibiotic as per ID team. Other than that patient denies chest pain or dyspnea, no abdominal pain, he is fully awake and oriented with no weakness or numbness. No neurologic complaints. Patient feels generally weak. He agrees for discharge to rehab today. Patient is aware about his left kidney mass and he states that he follows up with Dr. Heath regarding this and also he is aware about his lung nodule and he was to follow up with wood pattern maker Dr. Cortez. Patient was cleared for discharge by all consultants including infectious disease, pulmonary team and surgery team. Problems and management plan were discussed with the patient and he verbalized understanding and acceptance Patient was found stable and can be dischargedto ECF for rehab in guarded prognosis however he needs follow-up as an outpatient. Patient was instructed to follow up with PCP Dr. Suarez within one week and patient agrees Patient was instructed to follow up with wood pattern maker Dr. Cortez in 1-2 weeks and he agrees with the surgical team Dr. Godfrey in one week and he agrees as well as with his efficiency miner Dr. Heath in 1-2 weeks and he agrees to call and make his own appointments Upon patient request I called Dr. Suarez's office, he was not available and I left message with Dr. tacho cortez the took a message to follow-up with Dr. Cortez regarding his lung nodules and efficiency miner regarding his kidney mass. Also I called to the PCP sales promotion officer Caitlin and family preservation caseworker came is going to call the patient with a 24 hours for appointment Physical exam -GENERAL: The patient is alert and oriented x3, not in any acute distress. Well developed, well nourished. Generally weak HEENT: Pupils are round and equally reacting to light. EOMI. No scleral icterus. No conjunctival pallor. Normocephalic, atraumatic. No pharyngeal erythema. No thyromegaly. CARDIOVASCULAR: S1 and S2 present. No murmurs, rubs, or gallops. -PULMONARY: Chest is clear to auscultation, no wheezing or crackles. Mildly tachypneic -ABDOMEN: Soft, nontender, nondistended, normoactive bowel sounds. No palpable organomegaly. Colostomy with light brown stool MUSCULOSKELETAL: No joint swelling or deformity. EXTREMITIES: No cyanosis, clubbing, or pedal edema. NEUROLOGICAL: Gross neurological examination did not reveal any focal deficits. SKIN: No rashes. no petechiae. Time spent more than 35 minutes Patient Condition at Discharge: Fair Plan - Discharge Summary New Discharge Prescriptions: New Piperacillin-Tazobactam [Zosyn] 3.375 gm IVPB Q8HR #42 each HYDROcodone/APAP 5-325MG [Varna 5-325] 1 each PO Q6HR PRN 5 Days #20 tab PRN Reason: Moderate Pain (Scale 4 To 6) Changed Psyllium Husk 100% [Metamucil Packet] 6 gm PO DAILY PRN #0 packet PRN Reason: Constipation guaiFENesin [Mucinex] 600 mg PO BID PRN #0 PRN Reason: Cough Discontinued ALPRAZolam [Xanax] 0.5 mg PO TID PRN PRN Reason: Anxiety Levofloxacin [Levaquin] 750 mg PO DAILY@1200 Lisinopril-Hctz 10-12.5 mg [Zestoretic 10-12.5] 0.5 tab PO DAILY No Action Montelukast Sodium [Singulair] 10 mg PO DAILY Metoprolol Tartrate [Lopressor] 25 mg PO BID Albuterol Nebulized [Ventolin Nebulized] 2.5 mg INHALATION RT-TID PRN PRN Reason: Shortness Of Breath Cetirizine HCl [Zyrtec] 10 mg PO DAILY L.acidoph,Paracasei, B.lactis [Probiotic] 1 cap PO DAILY Sodium Chloride 0.9% Nebuliz [Saline 0.9% For Nebulization] 3 ml INHALATION RT-QID Doxazosin [Cardura] 4 mg PO DAILY allopurinoL [Zyloprim] 100 mg PO DAILY Albuterol Sulfate [Ventolin HFA] 2 puff INHALATION RT-QID PRN PRN Reason: Shortness Of Breath Cholecalciferol [Vitamin D3 (25 Mcg = 1000 Iu)] 50 mcg PO DAILY Magnesium Oxide [Mag-Ox] 400 mg PO HS Meropenem [Merrem] 1 gm IVPB TID@0000,0800,1600 Budesonide 0.25 mg INHALATION RT-BID Fluticasone/Umeclidin/Vilanter [Trelegy Ellipta 100-62.5-25] 1 puff INHALATION RT-DAILY Acetaminophen Tab [Tylenol] 650 mg PO Q6HR PRN tab PRN Reason: Mild Pain Or Fever > 100.5 Aspirin 81 mg PO DAILY Ipratropium-Albuterol Nebulize [Duoneb 0.5 mg-3 mg/3 ml Soln] 3 ml INHALATION RT-BID Pantoprazole Sodium [Protonix] 20 mg PO DAILY Ascorbic Acid [Vitamin C] 1,000 mg PO DAILY Discharge Medication List Montelukast Sodium [Singulair] 10 mg PO DAILY 01/24/14 [History] Albuterol Nebulized [Ventolin Nebulized] 2.5 mg INHALATION RT-TID PRN 07/25/16 [History] Metoprolol Tartrate [Lopressor] 25 mg PO BID 07/25/16 [History] Cetirizine HCl [Zyrtec] 10 mg PO DAILY 08/19/16 [History] Doxazosin [Cardura] 4 mg PO DAILY 09/01/18 [History] L.acidoph,Paracasei, B.lactis [Probiotic] 1 cap PO DAILY 09/01/18 [History] Sodium Chloride 0.9% Nebuliz [Saline 0.9% For Nebulization] 3 ml INHALATION RT- QID 09/01/18 [History] allopurinoL [Zyloprim] 100 mg PO DAILY 11/21/19 [History] Albuterol Sulfate [Ventolin HFA] 2 puff INHALATION RT-QID PRN 10/21/21 [History] Budesonide 0.25 mg INHALATION RT-BID 10/21/21 [History] Fluticasone/Umeclidin/Vilanter [Trelegy Ellipta 100-62.5-25] 1 puff INHALATION RT-DAILY 10/21/21 [History] Acetaminophen Tab [Tylenol] 650 mg PO Q6HR PRN tab 10/25/21 [Rx] Ascorbic Acid [Vitamin C] 1,000 mg PO DAILY 01/29/22 [History] Aspirin 81 mg PO DAILY 01/29/22 [History] Cholecalciferol [Vitamin D3 (25 Mcg = 1000 Iu)] 50 mcg PO DAILY 01/29/22 [History] Ipratropium-Albuterol Nebulize [Duoneb 0.5 mg-3 mg/3 ml Soln] 3 ml INHALATION RT-BID 01/29/22 [History] Magnesium Oxide [Mag-Ox] 400 mg PO HS 01/29/22 [History] Pantoprazole Sodium [Protonix] 20 mg PO DAILY 01/29/22 [History] Meropenem [Merrem] 1 gm IVPB TID@0000,0800,1600 02/17/22 [History] HYDROcodone/APAP 5-325MG [Varna 5-325] 1 each PO Q6HR PRN 5 Days #20 tab 03/07/22 [Rx] Piperacillin-Tazobactam [Zosyn] 3.375 gm IVPB Q8HR #42 each 03/07/22 [Rx] Psyllium Husk 100% [Metamucil Packet] 6 gm PO DAILY PRN #0 packet 03/07/22 [Rx] guaiFENesin [Mucinex] 600 mg PO BID PRN #0 03/07/22 [Rx] Follow up Appointment(s)/Referral(s): Keshawn Suarez MD [Primary Care Provider] - 1-2 days Anthony Heath DO [STAFF PHYSICIAN] - 10 Days ([facility] for your kidney mass) Ramona Cortez MD [STAFF PHYSICIAN] - 1 Week Que Munoz MD [STAFF PHYSICIAN] - 1 Week Activity/Diet/Wound Care/Special Instructions: Dysphagia level III: Chopped diet with nectar thick liquids Activity as tolerated
--- NOTE | 2022-03-07 12:52 | CDI ---
Documentation Clarification Form Date: 03/07/2022 12:33:19 PM From: Danuta Simpson CCS, CCDS Admit Date: 02/17/2022 11:14:00 AM Patient Name: Anival Chavez Visit Number: [id number] Discharge Date: ATTENTION: The Clinical Documentation Specialists (CDI) and [facility] Coding Staff appreciate your assistance in clarifying documentation. Please respond to the clarification below the line at the bottom and electronically sign. The CDI & [facility] Coding staff will review the response and follow-up if needed. Please note: Queries are made part of the Legal Health Record. If you have any questions, please contact the author of this message via ITS. Dr. Denisa Damon: Your patient has the documented diagnosis of unspecified CHF requiring a dose of IV Lasix in the 02/23 Attending Physician Progress Note and in subsequent Progress Notes including the 02/28, & Attending Physician Progress Note: CHF acute exacerbation with Acute Hypoxic Respiratory Failure without further specificity. Additional information regarding the Type & Acuity of CHF is requested. History/Risk Factors per the 02/17 H/P: Diverticulitis and bowel perforation requiring bowel resection with Colostomy in 2021 in [place] and history of a Right Inguinal Hernia Repair. Lung Nodule status post radiation treatment. Factor V Leiden mutation, Renal mass being followed outpatient, Pseudomonas Pneumonia on antibiotic, Hepatic Cysts, CKD stage 3, COPD, DVT, Sleep Apnea, Anxiety & Former smoker. Clinical Indicators: Presented to the ED on 02/17 via EMS with Abdominal pain, abdomen hard & distention, currently on Meropenem for Pseudomonas Pneumonia. Admit with SOB 02/17 VS: T 97.5, P 96, R 24, BP 97/55, PO 97 2Lnc - 92 RA, BMI: 27.6 02/17 LAB: CO2 28, BUN 39, Creatinine 1.55, Glucose 106, Total Bilirubin 2.2, Total Protein 5.8, Albumin 3.3, Lipase 327. 02/23 BNP: 1400 02/17 CXR: NGT, Left PICC line, Bibasilar atelectasis. 02/23 CXR: RLL airspace opacities concerning for pneumonia. 03/02 CXR: Ongoing small right > left pleural effusions. Treatment 02/17: O2, IV Fluid bolus Na Chl 1,000 mls @ 999 mls/hr q1H, IV Dilaudid 0.5 mg q3H, IV Zofran 4 mg q8H/prn, IV fluid Na Chl 1,000 mls @ 75 mls/hr q13H, INH Ventolin 2.5 mg TID/prn, INH Atrovent 0.5 mg John, IV Meropenem 1 gm 100 mls @ 33.333 mls/hr q8H, INH Duoneb 3 ml QID, INH Pulmicort 0.25 mg BID, INH Symbicort 2 puff BID. 02/23: IV Lasix 40 mg x1. 02/27: IV Lasix 40 mg x1. No ECHO, Cardiology not consulted. In your professional opinion, can you please clarify the Acuity & Type of CHF if known? [ ] Acute Systolic Heart Failure [ ] Chronic Systolic Heart Failure [ ] Acute on Chronic Systolic Heart Failure [ ] Acute Diastolic Heart Failure [ ] Chronic Diastolic Heart Failure [ ] Acute on Chronic Diastolic Heart Failure [ ] Acute Systolic & Diastolic Heart Failure [ ] Chronic Systolic & Diastolic Heart Failure [ ] Acute on Chronic Heart Failure Systolic & Diastolic Heart Failure [ ] Other, please specify [ x] Unable to determine (Template Last Revised: April 2020) MTDD
[2022-03-07 13:37] VITALS: BP 110/65; TEMP 98.6
--- NOTE | 2022-03-07 14:57 | P.PN ---
Subjective Progress Note Date: 03/07/22 Principal diagnosis: Small bowel obstruction, postoperative ileus, COPD exacerbation This is a 76-year-old male who is very well-known to me, hospitalized on multiple occasions for pneumonia with gram-negative most recent infection was related to Pseudomonas and the patient was taken off the patient antibiotics with IV meropenem. The patient has history of COPD, lung mass that was treated with SBR T and history of tracheal bronchomalacia. He has had multiple pneumonias and multiple hospitalizations in the past for the same. During the most recent hospitalization of jan 2022, the patient was treated for a recurrent Pseudomonas pneumonia Note that the patient has had previous infections with Pseudomonas, stenotrophomonas, and MRSA. The patient came into the ED with complaints of diffuse abdominal pain but more in the right lower abdomen. Patient reports that his abdominal pain started Thursday morning. The pain came on suddenly. He'd been nauseated and having acid reflux. She reports that his ostomy output had decreased he was still making a small amount of stool through his ostomy. But has stopped having any flatus over the last couple a days. Patient does have a prior history of diverticulitis with perforation requiring bowel resection with colostomy placement in March 2021 in [place]. He also has a past surgical history of a right inguinal hernia repair. Patient had a computed tomography scan abdomen and pelvis showing a small bowel obstruction. NG tube is being placed in the ER. History of a pulmonary lung nodule requiring radiation treatment. He does have factor V Leiden mutation. The patient is seen today 02/18/2022 in follow-up on the regular medical floor. He is currently sitting up at the bedside. Awake and alert in no acute distress. Nasogastric tube remains in place. Still with very minimal output of the ostomy. White count 15.0. Hemoglobin 10.0. Sodium 139. Potassium 4.8. BUN 38. Creatinine 1.7. He is continued on DuoNeb inhalations, Symbicort, Singulair. Heparin for DVT prophylaxis. Surgical services are on the case. He is currently on antibiotics in the form of meropenem. The patient is seen today 02/19/2022 in follow-up. He did undergo a exploratory laparotomy with lysis of adhesions with Dr. Maribel laguna. He tolerated the procedure well. His back in the regular medical floor. He is maintaining good O2 saturations in the 90s on 2 L/m per nasal cannula. Afebrile. Hemodynamically stable. White count 14.5. Hemoglobin 9.8. Sodium 139. Potassium 4.3. Chloride 108. Bicarb 22. BUN 39. Creatinine 1.46. Glucose 69. The patient is seen today 02/20/2022 in follow-up on the regular medical floor. He is postoperative day #1. He did undergo extensive lysis of adhesions, small bowel resection and repair of incisional hernia. He is awake and alert. he is maintaining O2 saturations in the low 90s on 4 L/m per nasal cannula. There is a small amount of stool in his ostomy. White count 9.9. Hemoglobin 9.7. Sodium 142. Potassium 4.7. Bicarb 21. BUN 56. Creatinine 1.88. Glucose 103. He is working with the incentive spirometer. He is continued on DuoNeb inhalations, Symbicort, Mucinex, Singulair. He is on antibiotics in the form of meropenem. 02/21/2022, Anival is doing well. He remains nothing by mouth. NG tube is in place and there are plans to remove the NG tube today. The colostomy site has without some minimal amount of output. Surgical once is striking and intact. He has a congested cough. he is bringing minimal amount of sputum. He remains on IV meropenem regarding recurrent pseudomonal pneumonias. Note that the patient underwent an extensive surgery which involved last of adhesions, small bowel resection and repair of an incisional hernia. He had complete bowel obstruction. He remains on Lovenox portably prophylaxis. Remains on bronchodi lators. Incentive spirometer and flutter valve at the bedside. Labs from today are still pending. Creatinine from yesterday was 1.88 with a BUN of 56 and a sodium level of 142. Normocytic on is down to 9.9. He is awake and alert and sitting up on a chair is postop day #2. On 02/22/2022, the patient is sitting up on a chair. He has a congested cough. He remains on IV meropenem. Limited activity and his colostomy bag. Bowel sounds are still hypoactive. Surgical once is striking and intact. NG tube was removed. His taken no chills. No new complaints. White cell count is at 8.8 with a hemoglobin of 9.4. BUN is at 66 with a creatinine of 1.7 and sodium level is at 141. He is ambulating without a walker. On today's evaluation of 02/23/2022, the patient denies having any nausea and vomiting. GI surgeries on the case regarding the progress of the surgery. NG tube remains out. The bowel function has not returned yet. The patient is taking anxious. He is active. He is having total for pain control. Restasis as remains stable and the patient remains on IV meropenem. Remains on DuoNeb about treatments [id number]. Using incentive spirometer. Blood work from today shows that the dermis count is at 7.4 with a hemoglobin drop 9.5. BUN is at 61 with a creatinine 1.6 and a sodium level is at 144. The patient is seen today 02/24/2022 in follow-up on the regular medical floor. He is currently resting fairly comfortably in bed. He is awake and alert in no acute distress. He is having some ongoing issues with abdominal discomfort. He was having episodes of nausea and vomiting last night and a nasogastric tube was reinserted. He is maintaining good O2 saturation in the 90s on 4 L/m per nasal cannula. He is afebrile. Hemodynamically stable. Most recent chest x-ray still revealing a right lower lobe opacities. Sodium 145. Potassium 3.9. BUN 67. Creatinine 1.49. ProBNP 1400. The patient is continued on Symbicort, DuoNeb inhalations. Antibiotics in the form of meropenem. DVT prophylaxis with Lovenox. Normal saline at 50 MLS per hour. Evaluating this patient on 02/25/2022 on a regular medical floor. He appears fairly comfortable. NG tube remains in place to low intermittent suction. No more episodes of nausea and vomiting. Although, the abdomen is hydrogenation still operator to palpation. Abdominal CT from yesterday shows postoperative ileus, and small bilateral pleural effusions. Surgery is still on the case. His oxygen saturation is adequate on 4 L nasal cannula. Patient denies shortness of breath. He still has a congested productive cough. No new CBC today. BMP shows sodium 143, potassium 3.7, chloride 108, serum CO2 35, BUN 62, creatinine 1.47, glucose 161. He is receiving PPN at 80 ml/hr. He is receiving DuoNeb 4 times a day and Symbicort inhaler. DVT prophylaxis with Lovenox, and GI prophylaxis with Protonix. Evaluating this patient today on 02/26/2022, on regular medical floor. His abdominal tenderness has slightly improved over the last 24 hours. His NG tube remains to low intermittent suction, and he denies any nausea or vomiting . Receiving TPN at 80 ML's per hour through left upper arm PICC. Patient reports small amount of air an ostomy pouch. Surgery continues to follow this patient daily. From respiratory standpoint, patient remains on 4 L nasal cannula. He denies any respiratory distress. He does have a congested, nonproductive cough and is receiving Mucinex. Incentive spirometer is at bedside. He remains afebrile. CBC count from today reveals no leukocytosis. WBC count 9, in [place] 8.8, hematocrit 29, platelet 250,000. BMP from today is stable sodium 142, potassium 3.6, chloride 108, serum CO2 31, BUN 59, serum creatinine 1.21, glucose 180. Maintained empirically on meropenem. Continues receiving DuoNeb nebulization and Symbicort inhaler. Receiving Lovenox for DVT prophylaxis and Protonix for GI prophylaxis. Overall condition is slightly improved from yesterday. I'm reevaluating this patient today on 02/27/2022. He remains on a general medical floor. He is still on 4 L nasal cannula, and denies any respiratory distress. Sputum culture is pending. He continues to have a congested nonproductive cough receiving Mucinex. He has a flutter valve and incentive spi rometer at bedside. His abdominal tenderness continues to improve, and he has not had any further nausea or vomiting. His NG tube was discontinued by surgery, and he was started on a clear liquid diet. He continues to's receiving supplemental nutrition in the form of TPN at 80 ML's per hour through a left upper arm PICC. Patient has small amount of air and stool in his ostomy pouch. Surgery is still following this patient. No CBC from today. BMP is stable sodium 140, potassium 3.7, chloride 108, serum CO2 33, BUN 55, creatinine 1.18, glucose 164. Continues receiving DuoNeb nebulization and Symbicort inhaler. Receiving Lovenox for DVT prophylaxis and Protonix for GI prophylaxis. Reevaluating this patient today on 02/28/2022. He remains on a general medical floor. He remains on 4 L nasal cannula, and denies any respiratory distress. He does have congested nonproductive cough and is receiving Mucinex. Repeat chest x-ray was performed yesterday on 02/27/2022. It showed suspicious spiculated 1.9 cm density in the right midlung, small bilateral pleural effusions, and a right lower lobe infiltrate. The right lower lobe infiltrate looks slightly better from prior study The preliminary results of the patient's sputum culture is negative so far. Patient remains afebrile. CBC from today 1222 continues to show no leukocytosis WBC count is 8.7, hemoglobin 5, hematocrit 26, platelet 286,000. Patient remains on meropenem. He is still receiving DuoNeb nebulization and Symbicort inhaler. He is receiving supplemental nutritional support form of TPN at 80 ML's per hour through a left upper arm PICC. BMP remained stable with a sodium level of 136, potassium 3.5, chloride 102, serum CO2 32, BUN 52, creatinine 1.16, glucose 171. Patient's generalized abdominal pain continues. He has good ostomy output. Surgery is on the case. Coughing and deep breathing have been encouraged. Incentive spirometer at bedside. Receiving Lovenox for DVT prophylaxis and Protonix for GI prophylaxis. The patient is seen today 03/01/2022 in follow-up on the regular medical floor. He is awake and alert in no acute distress. He is still having some abdominal discomfort. He is passing flatus and stool in the ostomy bag. He is tolerating a regular diet. Patient culture is positive for pseudomonas aeruginosa. The patient is a colonizer. He is currently on meropenem however this is resistant. He is maintaining good O2 saturation in the 90s on 4 L/m per nasal cannula. He is afebrile. Hemodynamically stable. Remains on Symbicort, DuoNeb inhalations. Adequate pain control. The patient is seen today 03/03/2022 in follow-up on the regular medical floor. He is currently resting fairly comfortably in bed. Awake and alert in no acute distress. Currently maintaining good O2 saturations in the 90s on 4 L/m per nasal cannula. He is afebrile. Hemodynamically stable. Barium swallow today reveals silent aspiration with thin liquids. Single episode of transient penetr ation with nectar consistency. No other penetration or aspiration is seen. Patient's therapy recommending continuation of a dysphagia III, chopped texture diet. Colostomy continues to function well. White count 7.0. Hemoglobin 8.0. Platelets 367. Sodium 140. Potassium 4.7. BUN 36. Creatinine 1.4. Glucose 75. He remains on Symbicort, DuoNeb inhalations. Antibiotics in the form of Zosyn. Lovenox for DVT prophylaxis. The patient is seen today 03/04/2022 in follow-up on the regular medical floor. He is awake and alert in no acute distress. Currently resting fairly comfortably in bed. Maintaining O2 saturations in the low 90s on 4 L/m per nasal cannula. He is afebrile. Hemodynamically stable. Continues with a loose cough. Sputum culture again positive for pseudomonas aeruginosa. White count 7.9. Hemoglobin 8.0. Sodium 136. Potassium 4.6. BUN 32. Creatinine 1.56. H e remains on Zosyn, DuoNeb inhalations, Symbicort. Lovenox for DVT prophylaxis. Dilaudid for pain control. Encouraged regarding the increased use of the incentive spirometer. Chest x-ray continues to show small to moderate right pleural effusion with bilateral lower lung atelectasis/consolidation. Right upper lobe nodularity region demonstrated. The patient has received stereotactic radiation treatment to the right upper lobe in the past. I'm reevaluating this patient today on 03/05/2022 on a regular medical floor. He is awake and alert in no acute distress, sitting up in bed, on 4 L nasal cannula. Denies any significant shortness of breath, chest pain, fever. His abdominal tenderness continues to improve, there is output in his ostomy pouch. Vital signs all remain stable. CBC from today is continues to show some anemia with a WBC count of 8, hemoglobin is 7.1, hematocrit 22, platelets 120,000. BMP from today was stable with a sodium of 141, potassium 4.7, chloride 104, serum CO2 27, BUN 25, creatinine 1.7, glucose 92. He remains on Zosyn for a positive sputum culture on 02/25/2022 for pseudomonas aerogunisa. No new x-rays to review today. Patient continues to receive DuoNeb inhalation, budesonide inhalation, formoterol inhalation, Singulair, Mucinex. Patient has been encouraged to use his incentive spirometer is currently at his bedside. I'm reevaluating this patient today on 03/06/2022 on a regular medical floor. Patient in bed on 4 L nasal cannula. Denies any significant respiratory distress. he continues to have a nonproductive congested cough. Incentive spirometer is at bedside. saline is using KVO. He continues on Zosyn for a positive sputum culture on 02/25/2022 for pseudomonas. He remains afebrile. CBC from today is stable with a WBC count of 10.4, hemoglobin 8, hematocrit 25, platelets 474,000. BMP results include a sodium of 140, potassium 4.5, chloride 103, serum CO2 28.4, BUN 21, creatinine 1.6, glucose 76. Continuing DuoNeb inhalation, budesonide inhalation, formoterol inhalation. Patient is hemodynamically stable. The plan is for discharge to [facility] for rehab. Patient today on 03/07/2022 regular medical floor. Patient is resting comfortably, in bed, on 4 L nasal cannula. Denies any significant respiratory distress, fever, or chest pain. He continues to have a nonproductive congested cough. Flutter valve is at bedside. Patient is hemodynamically stable. Patient is awaiting discharge to [facility]. New chest x-ray to review. CBC is stable today with a WBC count of 10.6, hemoglobin 7.7, hematocrit 24.9, p latelets 484,000. BMP also stable with a sodium 142, potassium 4.4, chloride 106, serum CO2 28, creatinine 1.6, BUN 17, glucose 90. He continues to receive Zosyn empirically, Protonix for GI prophylaxis, Lovenox for DVT prophylaxis. He is also receiving DuoNeb inhalation, budesonide inhalation, formoterol inhalation, and Singulair. Objective - Vital Signs Vital signs: Vital Signs Temp 98.6 F 03/07/22 13:36 Pulse 77 03/07/22 13:36 Resp 18 03/07/22 13:36 BP 110/65 03/07/22 13:36 Pulse Ox 97 03/07/22 13:36 FiO2 36 02/21/22 00:31 Intake & Output 03/06/22 03/07/22 03/07/22 18:59 06:59 18:59 Intake Total 200 1060 Output Total 1700 1000 300 Balance -1500 60 -300 Weight 75.296 kg Intake: Intake, IV Titration 200 100 Amount Piperacillin-Tazobactam 3 200 100 .375 gm In Sodium Chloride 0.9% 100 ml @ 25 mls/hr IVPB Q8HR [facility] Rx# :[id number] Oral 960 Output: Urine 600 Stool 1100 1000 300 Other: Voiding Method Urinal Urinal # Voids 2 - Exam GENERAL EXAM: Alert, 76-year-old male, on 4 L nasal cannula, fairly comfortable in no apparent distress. HEAD: Normocephalic. EYES: Normal reaction of pupils, equal size. NOSE: Clear with pink turbinates. THROAT: No erythema or exudates. NECK: No masses, no JVD. CHEST: No chest wall deformity. LUNGS: Equal air entry with scattered crackles in the right lung base. Congested cough. CVS: S1 and S2 normal with no audible murmur, regular rhythm. ABDOMEN: Improved tenderness on palpation. Incisional dressing dry and intact. Umbilical hernia reducible nontender. Ostomy bag on the side of abdomen with some air and stool in the pouch. SPINE: No scoliosis or deformity SKIN: No rashes CENTRAL NERVOUS SYSTEM: No focal deficits, tone is normal in all 4 extremities. EXTREMITIES: There is no peripheral edema. No clubbing, no cyanosis. Peripheral pulses are intact. - Labs CBC & Chem 7: 03/07/22 06:58 03/07/22 06:58 Labs: Abnormal Lab Results - Last 24 Hours (Table) 03/07/22 03/07/22 Range/Units 06:58 06:58 WBC 10.55 H (4.50-10.00) X 10*3/uL RBC 2.54 L (4.40-5.60) X 10*6/uL Hgb 7.7 L (13.0-17.0) g/dL Hct 24.9 L (39.6-50.0) % MCV 98.0 H (80.0-97.0) fL MCHC 30.9 L (32.0-37.0) g/dL RDW 14.6 H (11.5-14.5) % Plt Count 484 H (140-440) X 10*3/uL Immature Gran # 0.08 H (0.00-0.04) X 10*3/uL Neutrophils # 7.86 H (1.80-7.70) X 10*3/uL Eosinophils # 0.36 H (0.04-0.35) X 10*3/uL Carbon Dioxide 27.9 H (20.0-27.5) mmol/L Anion Gap 8.10 L (10.00-18.00) mmol/L Creatinine 1.6 H (0.6-1.5) mg/dL Est GFR (CKD-EPI)AfAm 47.1 L (60.0-200.0) Est GFR (CKD-EPI)NonAf 40.7 L (60.0-200.0) BUN/Creatinine Ratio 10.56 L (12.00-20.00) Ratio Calcium 8.6 L (8.7-10.3) mg/dL Assessment and Plan Assessment: Small bowel obstruction with distal right lower quadrant transition point noted on computed tomography scan, Prior history of diverticulitis with perforation and bowel resection with colostomy placement. Status post exploratory laparotomy with lysis of adhesions, small bowel resection, repair of incisional hernia on 02/19/2022. Developed nausea and vomiting and required nasal tube reinsertion on 02/23/2022. Postoperative ileus resolved. NG tube discontinued 02/27/2022. Abdominal pain improved, and no further nausea or vomiting. Diet was advanced to a dysphagia level III chopped diet with nectar thick liquids. There is good ostomy output. Umbilical hernia reducible. status post repair Gallbladder sludge noted on CT, no evidence of cholecystitis Recurrent pneumonia. The patient is having recurrent pneumonia/tracheobronchitis with pseudomonas and other gram-negative bacteria. Completed course Meropenem. Patient remains afebrile. Right-sided pleural effusion with patchy consolidation of the right lower lobe chronic hypoxic respiratory failure currently on 4 L of O2 nasal cannula Chronic COPD maintain on Trelegy Ellipta on an outpatient basis Tracheobronchomalacia Recurrent respiratory tract infection with pseudomonas aeruginosa, E. coli, MRSA Right upper lobe pulmonary nodule avid on the previous PET scan and this was active on a PET scan and the patient was treated with SBRT Right renal mass being followed up on outpatient basis Factor 5 Leyden mutation Previous history of left lower extremity DVT Hypertension Chronic stage III kidney disease History of colonic perforation requiring colectomy and colostomy. Obstructive sleep apnea not using CPAP therapy Diverticulosis with previous history of diverticulitis Multiple hepatic cystsis Plan: The patient was seen and evaluated medications and labs reviewed Continue Zosyn Mucinex for congestion, Continue DuoNeb, budesonide, formoterol inhalations. Encourage incentive spirometer use and flutter valve. Increase his activity as tolerated Lovenox for DVT prophylaxis Protonix for GI prophylaxis Cleared from a pulmonary standpoint, to a subacute rehab center in order to finish outpatient treatment. I have personally seen and examined the patient, performed the documentation and the assessment and plan as written. Number of minutes spent on the visit: [10 ]. Time with Patient: Less than 30
[2022-03-07 15:30] VITALS: PULSE 90
--- NOTE | 2022-03-07 15:56 | P.PN ---
Subjective Progress Note Date: 03/07/22 Principal diagnosis: Pneumonia Patient is a 76 year old male with a past medical history significant for end-stage COPD patient did have a history of recurrent pneumonias recently did have a multidrug resistant Pseudomonas , admitted to the hospital abdominal pain diagnosed with a small bowel obstruction status post lysis of adhesions probable resection and repair of incisional hernia. On today's evaluation that is 03/07/2022, the patient remains to be afebrile, the patient is breathing comfortably on 4 L nasal cannula, the patient cough has decreased in intensity and occasional sputum production no hemoptysis, patient denies any abdominal pain mention some drainage from the incision surgery is following the patient closely , no nausea no vomiting Objective - Vital Signs Vital signs: Vital Signs Temp 98.5 F 03/07/22 07:43 Pulse 84 03/07/22 07:55 Resp 18 03/07/22 07:43 BP 120/70 03/07/22 07:43 Pulse Ox 97 03/07/22 07:43 FiO2 36 02/21/22 00:31 Intake & Output 03/06/22 03/07/22 03/07/22 18:59 06:59 18:59 Intake Total 200 1060 Output Total 1700 1000 Balance -1500 60 Intake: Intake, IV Titration 200 100 Amount Piperacillin-Tazobactam 3 200 100 .375 gm In Sodium Chloride 0.9% 100 ml @ 25 mls/hr IVPB Q8HR [facility] Rx# :[id number] Oral 960 Output: Urine 600 Stool 1100 1000 Other: Voiding Method Urinal Urinal # Voids 2 - Exam GENERAL DESCRIPTION: An elderly male lying in bed in no distress RESPIRATORY SYSTEM: Unlabored breathing , coarse breath sounds bilaterally HEART: S1 S2 regular rate and rhythm , ABDOMEN: Soft , incision is intact and currently dressed EXTREMITIES: No edema feet - Labs CBC & Chem 7: 03/07/22 06:58 03/07/22 06:58 Labs: Abnormal Lab Results - Last 24 Hours (Table) 03/07/22 03/07/22 Range/Units 06:58 06:58 WBC 10.55 H (4.50-10.00) X 10*3/uL RBC 2.54 L (4.40-5.60) X 10*6/uL Hgb 7.7 L (13.0-17.0) g/dL Hct 24.9 L (39.6-50.0) % MCV 98.0 H (80.0-97.0) fL MCHC 30.9 L (32.0-37.0) g/dL RDW 14.6 H (11.5-14.5) % Plt Count 484 H (140-440) X 10*3/uL Immature Gran # 0.08 H (0.00-0.04) X 10*3/uL Neutrophils # 7.86 H (1.80-7.70) X 10*3/uL Eosinophils # 0.36 H (0.04-0.35) X 10*3/uL Carbon Dioxide 27.9 H (20.0-27.5) mmol/L Anion Gap 8.10 L (10.00-18.00) mmol/L Creatinine 1.6 H (0.6-1.5) mg/dL Est GFR (CKD-EPI)AfAm 47.1 L (60.0-200.0) Est GFR (CKD-EPI)NonAf 40.7 L (60.0-200.0) BUN/Creatinine Ratio 10.56 L (12.00-20.00) Ratio Calcium 8.6 L (8.7-10.3) mg/dL Assessment and Plan (1) Pneumonia Status: Acute Code(s): J18.9 - PNEUMONIA, UNSPECIFIED ORGANISM SNOMED Code(s): 963754991 Plan: 1patient with end-stage COPD this patient with a history of recurrent pneumonias and patient was getting treatment for multidrug resistant Pseudomonas pneumonia when he got admitted to the hospital for Bowel obstruction in this patient who is status post laparotomy lysis of adhesion repair of incisional hernia and small bowel resection patient becomes the gum or shortness of breath requiring supplemental oxygen concerning for possible pneumonia. 2 patient sputum did grow pseudomonas that is resistant to meropenem but sensitive to Zosyn 5- patient continued to show slow clinical improvement in his respiratory status, patient to continue continue with the Zosyn 2 weeks on discharge and close outpatient follow-up Time with Patient: Less than 30
== END 2022-03-07 15:47 | DRG 329 ==
LOC: EC 09:07 → 5NMEDONC 11:14
PROVIDERS: ADMIT Hospitalist; ATTEND Hospitalist
PROC: 0D9670Z Drainage of Stomach with Drainage Device, Via Natural or Artificial Opening (ICD-10-PCS; 2022-02-17)
PROC: 0DN80ZZ Release Small Intestine, Open Approach (ICD-10-PCS; 2022-02-19)
PROC: 0WQF0ZZ Repair Abdominal Wall, Open Approach (ICD-10-PCS; 2022-02-19)
PROC: 0DT90ZZ Resection of Duodenum, Open Approach (ICD-10-PCS; principal; 2022-02-19 13:25)
PROC: 3E0436Z Introduction of Nutritional Substance into Central Vein, Percutaneous Approach (ICD-10-PCS; 2022-02-24)
DX: K56.50 Intestinal adhesions [bands], unspecified as to partial versus complete obstruction (principal); J15.1 Pneumonia due to Pseudomonas; K55.029 Acute infarction of small intestine, extent unspecified; J96.21 Acute and chronic respiratory failure with hypoxia; K91.89 Other postprocedural complications and disorders of digestive system; K94.03 Colostomy malfunction; N17.9 Acute kidney failure, unspecified; I13.0 Hypertensive heart and chronic kidney disease with heart failure and stage 1 through stage 4 chronic kidney disease, or unspecified chronic kidney disease; K43.0 Incisional hernia with obstruction, without gangrene; K42.0 Umbilical hernia with obstruction, without gangrene; Z16.24 Resistance to multiple antibiotics; D68.51 Activated protein C resistance; Z16.23 Resistance to quinolones and fluoroquinolones; J98.11 Atelectasis; Z16.19 Resistance to other specified beta lactam antibiotics; J39.8 Other specified diseases of upper respiratory tract; R13.10 Dysphagia, unspecified; I50.9 Heart failure, unspecified; K76.89 Other specified diseases of liver; Z99.81 Dependence on supplemental oxygen; N18.30 Chronic kidney disease, stage 3 unspecified; J47.9 Bronchiectasis, uncomplicated; F10.11 Alcohol abuse, in remission; Z95.828 Presence of other vascular implants and grafts; D64.9 Anemia, unspecified; K56.7 Ileus, unspecified; R91.1 Solitary pulmonary nodule; K21.9 Gastro-esophageal reflux disease without esophagitis; K82.8 Other specified diseases of gallbladder; E79.0 Hyperuricemia without signs of inflammatory arthritis and tophaceous disease; N40.0 Benign prostatic hyperplasia without lower urinary tract symptoms; F41.9 Anxiety disorder, unspecified; G47.33 Obstructive sleep apnea (adult) (pediatric); R00.0 Tachycardia, unspecified; Z20.822 Contact with and (suspected) exposure to COVID-19; Z79.899 Other long term (current) drug therapy; Z79.82 Long term (current) use of aspirin; Z79.51 Long term (current) use of inhaled steroids; Z91.030 Bee allergy status; Z91.041 Radiographic dye allergy status; Z88.1 Allergy status to other antibiotic agents; Z91.048 Other nonmedicinal substance allergy status; Z85.118 Personal history of other malignant neoplasm of bronchus and lung; Z87.891 Personal history of nicotine dependence; Z86.718 Personal history of other venous thrombosis and embolism; Z92.3 Personal history of irradiation; Z86.14 Personal history of Methicillin resistant Staphylococcus aureus infection; Z87.01 Personal history of pneumonia (recurrent)
CPT/HCPCS: 36415; 71045; 74176; 74230; 80048; 80053; 81001; 82150; 82330; 83690; 83735; 83880; 84100; 84145; 84478; 85025; 85027; 85610; 85730; 86140; 86850; 86900; 86901; 86920; 87070; 87077; 87186; 87205; 87502; 87634; 87635; 88307; 88309; 94640; 94760; 96361; 96374; 96376; 99285

== ENCOUNTER 2022-07-02 10:16 | Inpatient (IN) | payer MEDICARE, BC ==
[2022-07-02 11:28] LABS: Basophils % (A) 0 %; Eosinophils % (A) 0 %; HCT 31.5 % (39.0-53.0); HGB 10.2 gm/dL (13.0-17.5); Lymphocytes # (A) 0.9 k/uL (1.0-4.8); Lymphocytes % (A) 8 %; MCH 30.6 pg (25.0-35.0); MCHC 32.4 g/dL (31.0-37.0); MCV 94.4 fL (80.0-100.0); Mean Platelet Volume 9.5; Monocytes # (A) 0.4 k/uL (0-1.0); Monocytes % (A) 4 %; Neutrophils # (A) 9.3 k/uL (1.3-7.7); Neutrophils % (A) 86 %; Platelet Count 217 k/uL (150-450); RBC 3.34 m/uL (4.30-5.90); RDW 15.6 % (11.5-15.5); WBC 10.8 k/uL (3.8-10.6)
[2022-07-02 11:33] LABS: Albumin 3.9 g/dL (3.5-5.0); Calcium 9.3 mg/dL (8.4-10.2); Potassium 5.8 mmol/L (3.5-5.1); Total Bilirubin 0.7 mg/dL (0.2-1.3); Total Protein 6.8 g/dL (6.3-8.2)
--- NOTE | 2022-07-02 12:14 | ED ---
General Adult HPI - General Chief complaint: Recheck/Abnormal Lab/Rx Stated complaint: Cough Dr sent Time Seen by Provider: 07/02/22 10:53 Source: patient, RN notes reviewed Mode of arrival: ambulatory Limitations: no limitations - History of Present Illness Initial comments: 76-year-old male presents emergency Department with chief complaint of elevated potassium. Patient states he follow-up with nephrology yesterday had lab work drawn she is a phone call today stating that his kidney function was elevated along with his potassium. Patient states he's had kidney problems in the past in which this is why he is followed by nephrology. They found it was caused by antibiotics. He denies any recent antibiotic usage. Patient denies any chest pain shortness breath of usual, headache dizziness - Related Data Home Medications Medication Instructions Recorded Confirmed Montelukast Sodium [Singulair] 10 mg PO DAILY 01/24/14 02/17/22 Albuterol Nebulized [Ventolin 2.5 mg INHALATION RT-TID PRN 07/25/16 02/17/22 Nebulized] Metoprolol Tartrate [Lopressor] 25 mg PO BID 07/25/16 02/17/22 Cetirizine HCl [Zyrtec] 10 mg PO DAILY 08/19/16 02/17/22 Doxazosin [Cardura] 4 mg PO DAILY 09/01/18 02/17/22 L.acidoph,Paracasei, B.lactis 1 cap PO DAILY 09/01/18 02/17/22 [Probiotic] Sodium Chloride 0.9% Nebuliz 3 ml INHALATION RT-QID 09/01/18 02/17/22 [Saline 0.9% For Nebulization] allopurinoL [Zyloprim] 100 mg PO DAILY 11/21/19 02/17/22 Albuterol Sulfate [Ventolin HFA] 2 puff INHALATION RT-QID PRN 10/21/21 02/17/22 Budesonide 0.25 mg INHALATION RT-BID 10/21/21 02/17/22 Fluticasone/Umeclidin/Vilanter 1 puff INHALATION RT-DAILY 10/21/21 02/17/22 [Trelegy Ellipta 100-62.5-25] Ascorbic Acid [Vitamin C] 1,000 mg PO DAILY 01/29/22 02/17/22 Aspirin 81 mg PO DAILY 01/29/22 02/17/22 Cholecalciferol [Vitamin D3 (25 50 mcg PO DAILY 01/29/22 02/17/22 Mcg = 1000 Iu)] Ipratropium-Albuterol Nebulize 3 ml INHALATION RT-BID 01/29/22 02/17/22 [Duoneb 0.5 mg-3 mg/3 ml Soln] Magnesium Oxide [Mag-Ox] 400 mg PO HS 01/29/22 02/17/22 Pantoprazole Sodium [Protonix] 20 mg PO DAILY 01/29/22 02/17/22 Meropenem [Merrem] 1 gm IVPB TID@0000,0800,1600 02/17/22 02/17/22 Previous Rx's Medication Instructions Recorded Acetaminophen Tab [Tylenol] 650 mg PO Q6HR PRN tab 10/25/21 HYDROcodone/APAP 5-325MG [Bosler 1 each PO Q6HR PRN 5 Days #20 tab 03/07/22 5-325] Piperacillin-Tazobactam [Zosyn] 3.375 gm IVPB Q8HR #42 each 03/07/22 Psyllium Husk 100% [Metamucil 6 gm PO DAILY PRN #0 packet 03/07/22 Packet] guaiFENesin [Mucinex] 600 mg PO BID PRN #0 03/07/22 Allergies Allergy/AdvReac Type Severity Reaction Status Date / Time cefepime Allergy SHUT DOWN Verified 07/02/22 10:30 KIDNEYS ether Allergy Anaphylaxis Verified 07/02/22 10:30 Iodinated Contrast Media Allergy PAST Verified 07/02/22 10:30 [Iodinated Contrast Media - HISTORY OF Oral and] KIDNEY PROBLEMS venom-honey bee Allergy Anaphylaxis Verified 07/02/22 10:30 sulfamethoxazole AdvReac states Verified 07/02/22 10:30 [From Bactrim] effects kidneys trimethoprim [From Bactrim] AdvReac states Verified 07/02/22 10:30 effects kidneys Review of Systems ROS Statement: Those systems with pertinent positive or pertinent negative responses have been documented in the HPI. ROS Other: All systems not noted in ROS Statement are negative. Past Medical History Past Medical History: Blood Disorder, Cancer, COPD, Deep Vein Thrombosis (DVT), GERD/Reflux, Hypertension, Pneumonia, Renal Disease Additional Past Medical History / Comment(s): hx of pseudomonus lung infection, uses CPAP not for sleep apnea, O2 prn 2l prn, diverticulits, Factor V Leiden, hx of bronchial silicone stent now removed, PICC line in past now removed, past hx dialysis for kidney damage, none currently, Stage 3 renal disease, Lung cancer - diagnosed and treated down in [place], Colostomy, hernia repair History of Any Multi-Drug Resistant Organisms: MRSA, Other MDRO Date of last positivie culture/infection: 08/30/21-MRSA MDRO Source:: Sputum-MDRO & MRSA Past Surgical History: Hernia Repair, Tonsillectomy Additional Past Surgical History / Comment(s): bronchoscopy, bronchial silicone stent, now removed, fatty tumor removed from chest area, COLONOSCOPY, alexandre cataract, hernia repair Past Anesthesia/Blood Transfusion Reactions: Previous Problems w/ Anesthesia Additional Past Anesthesia/Blood Transfusion Reaction / Comment(s): "as infant turned black and blue from ETHER". FACTOR V LEIDEN Past Psychological History: Anxiety Smoking Status: Former smoker Past Alcohol Use History: None Reported Past Drug Use History: None Reported - Past Family History Father Family Medical History: Cancer Additional Family Medical History / Comment(s): colon cancer Mother Family Medical History: Cancer Additional Family Medical History / Comment(s): leukemia General Exam Limitations: no limitations General appearance: alert, in no apparent distress Head exam: Present: atraumatic, normocephalic, normal inspection Eye exam: Present: normal appearance, PERRL, EOMI. Absent: scleral icterus, conjunctival injection, periorbital swelling ENT exam: Present: normal exam, normal oropharynx, mucous membranes moist Neck exam: Present: normal inspection, full ROM. Absent: tenderness, meningismus, lymphadenopathy Respiratory exam: Present: wheezes. Absent: normal lung sounds bilaterally, respiratory distress, rales, rhonchi, stridor Cardiovascular Exam: Present: regular rate, normal rhythm, normal heart sounds. Absent: systolic murmur, diastolic murmur, rubs, gallop, clicks GI/Abdominal exam: Present: soft, normal bowel sounds, other (Colostomy noted). Absent: distended, tenderness, guarding, rebound, rigid Course Vital Signs 07/02/22 10:27 Temperature 97.9 F Pulse Rate 64 Respiratory 20 Rate Blood Pressure 110/62 O2 Sat by Pulse 96 Oximetry EKG Findings - EKG Comments: EKG Findings:: EKG performed at 10:53 sinus rhythm with rate of 72 ME 202 QRS 146 QT/QTC 388/408 - EKG Results: EKG: interpreted by GUERREROD Medical Decision Making - Medical Decision Making Was pt. sent in by a medical professional or institution (, [employer], [employer], urgent care, hospital, or [facility]...) When possible be specific @ -Manager Demand Dr. Heath Did you speak to anyone other than the patient for history (EMS, parent, family, police, friend...)? What history was obtained from this source @ -No Did you review nursing and triage notes (agree or disagree)? Why? @ -I reviewed and agree with nursing and triage notes Were old charts reviewed (outside hosp., previous admission, EMS record, old EKG, old radiological studies, urgent care reports/EKG's, [facility] records)? Report findings @ -Review prior CBC, comp, ultrasounds Differential Diagnosis (chest pain, altered mental status, abdominal pain women, abdominal pain men, vaginal bleeding, weakness, fever, dyspnea, syncope, headache, dizziness, GI bleed, back pain, seizure, CVA, palpatations, mental health, musculoskeletal)? @ -Renal failure, dehydration, hyperkalemia EKG interpreted by me (3pts min.). @ -As above X-rays interpreted by me (1pt min.). @ -None done CT interpreted by me (1pt min.). @ -None done U/S interpreted by me (1pt. min.). @ -None done What testing was considered but not performed or refused? (CT, X-rays, U/S, labs)? Why? @ -None What meds were considered but not given or refused? Why? @ -None Did you discuss the management of the patient with other professionals (professionals i.e. , [employer], [employer], lab, RT, psych nurse, social media sr strategy manager, pet supplies salesperson, teacher, mobile patrol officer, showcase trimmer)? Give summary @ - sheet covering for for admission with consult to nephrology Was smoking cessation discussed for >3mins.? @ -No Was critical care preformed (if so, how long)? @ -No Were there social determinants of health that impacted care today? How? (Homelessness, low income, unemployed, alcoholism, drug addiction, transportation, low edu. Level, literacy, decrease access to med. care, senior care, rehab)? @ -No Was there de-escalation of care discussed even if they declined (Discuss DNR or withdrawal of care, Hospice)? DNR status @ -No What co-morbidities impacted this encounter? (DM, HTN, Smoking, COPD, CAD, Cancer, CVA, ARF, Chemo, Hep., AIDS, mental health diagnosis, sleep apnea, morbid obesity)? @ -Chronic renal disease Was patient admitted / discharged? Hospital course, mention meds given and route, prescriptions, significant lab abnormalities, going to OR and other pertinent info. @ -Admitted for acute kidney injury, dehydration, hyperkalemia. Patient will have consult to nephrology Undiagnosed new problem with uncertain prognosis? @ -No Drug Therapy requiring intensive monitoring for toxicity (Heparin, Nitro, Insulin, Cardizem)? @ -No Were any procedures done? @ -No Diagnosis/symptom? @ -Acute kidney injury, hyperkalemia Acute, or Chronic, or Acute on Chronic? @ -Acute Uncomplicated (without systemic symptoms) or Complicated (systemic symptoms)? @ -Uncomplicated Side effects of treatment? @ -No Exacerbation, Progression, or Severe Exacerbation? @ -No Poses a threat to life or bodily function? How? (Chest pain, USA, ND, pneumonia, PE, COPD, DKA, ARF, appy, cholecystitis, CVA, Diverticulitis, Homicidal, Suicidal, threat to staff... and all critical care pts) @ -No - Lab Data Result diagrams: 07/02/22 11:16 07/02/22 11:16 Lab Results 07/02/22 07/02/22 07/02/22 Range/Units 11:16 11:16 11:16 WBC 10.8 H (3.8-10.6) k/uL RBC 3.34 L (4.30-5.90) m/uL Hgb 10.2 L (13.0-17.5) gm/dL Hct 31.5 L (39.0-53.0) % MCV 94.4 (80.0-100.0) fL MCH 30.6 (25.0-35.0) pg MCHC 32.4 (31.0-37.0) g/dL RDW 15.6 H (11.5-15.5) % Plt Count 217 (150-450) k/uL MPV 9.5 Neutrophils % 86 % Lymphocytes % 8 % Monocytes % 4 % Eosinophils % 0 % Basophils % 0 % Neutrophils # 9.3 H (1.3-7.7) k/uL Lymphocytes # 0.9 L (1.0-4.8) k/uL Monocytes # 0.4 (0-1.0) k/uL Eosinophils # 0.0 (0-0.7) k/uL Basophils # 0.0 (0-0.2) k/uL Sodium 138 (137-145) mmol/L Potassium 5.8 H (3.5-5.1) mmol/L Chloride 109 H (98-107) mmol/L Carbon Dioxide 19 L (22-30) mmol/L Anion Gap 10 mmol/L BUN 92 H (9-20) mg/dL Creatinine 3.08 H (0.66-1.25) mg/dL Est GFR (CKD-EPI)AfAm 21 (>60 ml/min/1.73 sqM) Est GFR (CKD-EPI)NonAf 18 (>60 ml/min/1.73 sqM) Glucose 103 H (74-99) mg/dL Calcium 9.3 (8.4-10.2) mg/dL Magnesium 2.0 (1.6-2.3) mg/dL Total Bilirubin 0.7 (0.2-1.3) mg/dL AST 22 (17-59) U/L ALT 17 (4-49) U/L Alkaline Phosphatase 61 (38-126) U/L Total Protein 6.8 (6.3-8.2) g/dL Albumin 3.9 (3.5-5.0) g/dL Urine Color Light Yellow Urine Appearance Clear (Clear) Urine pH 5.0 (5.0-8.0) Ur Specific Anna 1.011 (1.001-1.035) Urine Protein Trace H (Negative) Urine Glucose (UA) Negative (Negative) Urine Ketones Negative (Negative) Urine Blood Negative (Negative) Urine Nitrite Negative (Negative) Urine Bilirubin Negative (Negative) Urine Urobilinogen <2.0 (<2.0) mg/dL Ur Leukocyte Esterase Moderate H (Negative) Urine RBC 1 (0-5) /hpf Urine WBC 13 H (0-5) /hpf Ur Squamous Epith Cells <1 (0-4) /hpf Urine Bacteria Rare H (None) /hpf Urine Mucus Rare H (None) /hpf Disposition Clinical Impression: Hyperkalemia, VIOLET (acute kidney injury) Disposition: ADMITTED IP TO THIS HOSP Condition: Fair Referrals: Keshawn Suarez MD [Primary Care Provider] - 1-2 days Time of Disposition: 13:01
[2022-07-02 12:19] LABS: Appearance,Urine Clear (Clear); Bacteria,Urine Rare /hpf; Bilirubin,Urine Negative (Negative); Blood,Urine Negative (Negative); Color,Urine Light Yellow; Glucose,Urine (UA) Negative (Negative); Ketones,Urine Negative (Negative); Leukocyte Esterase,Urine Moderate (Negative); Mucus,Urine Rare /hpf; Nitrite,Urine Negative (Negative); Protein,Urine Trace (Negative); RBC,Urine 1 /hpf (0-5); Specific Gravity,Urine 1.011 (1.001-1.035); Squamous Epithelial Cell,Urine <1 /hpf (0-4); Urobilinogen,Urine <2.0 mg/dL (<2.0); WBC,Urine 13 /hpf (0-5)
[2022-07-02] MEDS ORDERED: SODIUM BICARB 8.4% 50 ML SYR (1 MEQ/ML) IV STA (13:41)
[2022-07-02] MEDS ORDERED: DEXTROSE 50% SYRINGE 50 ML IVP STA (13:43)
[2022-07-02] MEDS ORDERED: INSULIN REGULAR 100 UNIT/ML VIAL (IV) IV ONE (13:43)
[2022-07-02] MEDS ORDERED: SODIUM ZIRCONIUM CYCLOSILICATE 10 GM PACKET PO ONE (13:44)
--- NOTE | 2022-07-02 13:45 | P.HPIM ---
History of Present Illness This is a pleasant 76 years old male with multiple medical problems. Patient states that about 2 weeks ago he had similar problem of high potassium and he was in the hospital and discharge home from [facility], yesterday she was doing regular follow-up with his plasticator Dr. Heath and he was called today to come to emergency room because of high potassium level and high creatinine. Patient denies any specific symptoms other than feel little more tired than usual Also reports increased frequency of urination but no change in volume or dysuria or urgency He denies chest pain or dyspnea or coughing, no headache dizziness weakness of extremities or abnormal sensation. No blurred vision or slurred speech. No diarrhea abdominal pain or vomiting. He does not take any extra pain medication currently, he is not on antibiotic currently. He states only baby aspirin and brought on anticoagulation patient supposed to follow-up with his surgeon Dr. Sainz next Thursday for reversal of his colostomy, he states that 1 year ago he had the sigmoid colon removed and had colostomy since then. Vital signs stable That showed mild leukocytosis of 13.8, hemoglobin 10.2, platelet count normal. Creatinine is elevated 3.0, baseline 1.3-1.7 Potassium 5.8. Liver enzymes not elevated. Urine analysis showing trace protein and moderate leukocyte esterase and WBC 13. EKG showing normal sinus rhythm at 70 bpm with left axis deviation, no ST-T changes. QRS is 146 prolonged which is similar to old EKG Review of Systems Review of systems CONSTITUTIONAL: No fever, no malaise, no fatigue. HEENT: No recent visual problems or hearing problems. Denied any sore throat. CARDIOVASCULAR: No orthopnea, PND, no palpitations, no syncope. PULMONARY: No shortness of breath, no cough, no hemoptysis. GASTROINTESTINAL: No diarrhea, no nausea, no vomiting, no abdominal pain. Normoactive bowel sounds. NEUROLOGICAL: No headaches, no weakness, no numbness. HEMATOLOGICAL: Denies any bleeding or petechiae. GENITOURINARY: Denies any burning micturition, frequency, or urgency. MUSCULOSKELETAL/RHEUMATOLOGICAL: Denies any joint pain, swelling, or any muscle pain. ENDOCRINE: Denies any polyuria or polydipsia. Past Medical History Past Medical History: Blood Disorder, Cancer, COPD, Deep Vein Thrombosis (DVT), GERD/Reflux, Hypertension, Pneumonia, Renal Disease Additional Past Medical History / Comment(s): hx of pseudomonus lung infection, uses CPAP not for sleep apnea, O2 prn 2l prn, diverticulits, Factor V Leiden, hx of bronchial silicone stent now removed, PICC line in past now removed, past hx dialysis for kidney damage, none currently, Stage 3 renal disease, Lung cancer - diagnosed and treated down in [place], Colostomy, hernia repair History of Any Multi-Drug Resistant Organisms: MRSA, Other MDRO Date of last positivie culture/infection: 08/30/21-MRSA MDRO Source:: Sputum-MDRO & MRSA Past Surgical History: Hernia Repair, Tonsillectomy Additional Past Surgical History / Comment(s): bronchoscopy, bronchial silicone stent, now removed, fatty tumor removed from chest area, COLONOSCOPY, alexandre cataract, hernia repair Past Anesthesia/Blood Transfusion Reactions: Previous Problems w/ Anesthesia Additional Past Anesthesia/Blood Transfusion Reaction / Comment(s): "as infant turned black and blue from ETHER". FACTOR V LEIDEN Past Psychological History: Anxiety Smoking Status: Former smoker Past Alcohol Use History: None Reported Past Drug Use History: None Reported - Past Family History Father Family Medical History: Cancer Additional Family Medical History / Comment(s): colon cancer Mother Family Medical History: Cancer Additional Family Medical History / Comment(s): leukemia Medications and Allergies Home Medications Medication Instructions Recorded Confirmed Type Montelukast Sodium [Singulair] 10 mg PO DAILY 01/24/14 02/17/22 History Albuterol Nebulized [Ventolin 2.5 mg INHALATION RT-TID PRN 07/25/16 02/17/22 History Nebulized] Metoprolol Tartrate [Lopressor] 25 mg PO BID 07/25/16 02/17/22 History Cetirizine HCl [Zyrtec] 10 mg PO DAILY 08/19/16 02/17/22 History Doxazosin [Cardura] 4 mg PO DAILY 09/01/18 02/17/22 History L.acidoph,Paracasei, B.lactis 1 cap PO DAILY 09/01/18 02/17/22 History [Probiotic] Sodium Chloride 0.9% Nebuliz 3 ml INHALATION RT-QID 09/01/18 02/17/22 History [Saline 0.9% For Nebulization] allopurinoL [Zyloprim] 100 mg PO DAILY 11/21/19 02/17/22 History Albuterol Sulfate [Ventolin HFA] 2 puff INHALATION RT-QID PRN 10/21/21 02/17/22 History Budesonide 0.25 mg INHALATION RT-BID 10/21/21 02/17/22 History Fluticasone/Umeclidin/Vilanter 1 puff INHALATION RT-DAILY 10/21/21 02/17/22 History [Trelegy Ellipta 100-62.5-25] Acetaminophen Tab [Tylenol] 650 mg PO Q6HR PRN tab 10/25/21 02/17/22 Rx Ascorbic Acid [Vitamin C] 1,000 mg PO DAILY 01/29/22 02/17/22 History Aspirin 81 mg PO DAILY 01/29/22 02/17/22 History Cholecalciferol [Vitamin D3 (25 50 mcg PO DAILY 01/29/22 02/17/22 History Mcg = 1000 Iu)] Ipratropium-Albuterol Nebulize 3 ml INHALATION RT-BID 01/29/22 02/17/22 History [Duoneb 0.5 mg-3 mg/3 ml Soln] Magnesium Oxide [Mag-Ox] 400 mg PO HS 01/29/22 02/17/22 History Pantoprazole Sodium [Protonix] 20 mg PO DAILY 01/29/22 02/17/22 History Meropenem [Merrem] 1 gm IVPB TID@0000,0800,1600 02/17/22 02/17/22 History HYDROcodone/APAP 5-325MG [Barlow 1 each PO Q6HR PRN 5 Days #20 tab 03/07/22 Rx 5-325] Piperacillin-Tazobactam [Zosyn] 3.375 gm IVPB Q8HR #42 each 03/07/22 Rx Psyllium Husk 100% [Metamucil 6 gm PO DAILY PRN #0 packet 03/07/22 02/17/22 Rx Packet] guaiFENesin [Mucinex] 600 mg PO BID PRN #0 03/07/22 02/17/22 Rx Allergies Allergy/AdvReac Type Severity Reaction Status Date / Time cefepime Allergy SHUT DOWN Verified 07/02/22 10:30 KIDNEYS ether Allergy Anaphylaxis Verified 07/02/22 10:30 Iodinated Contrast Media Allergy PAST Verified 07/02/22 10:30 [Iodinated Contrast Media - HISTORY OF Oral and] KIDNEY PROBLEMS venom-honey bee Allergy Anaphylaxis Verified 07/02/22 10:30 sulfamethoxazole AdvReac states Verified 07/02/22 10:30 [From Bactrim] effects kidneys trimethoprim [From Bactrim] AdvReac states Verified 07/02/22 10:30 effects kidneys Physical Exam Vitals: Vital Signs Temp Pulse Resp BP Pulse Ox 07/02/22 10:27 97.9 F 64 20 110/62 96 Intake and Output 07/01/22 07/02/22 07/02/22 22:59 06:59 14:59 Other: Weight 68.039 kg GENERAL: The patient is alert and oriented x3, not in any acute distress. Well developed, well nourished. HEENT: Pupils are round and equally reacting to light. EOMI. No scleral icterus. No conjunctival pallor. Normocephalic, atraumatic. No pharyngeal erythema. No thyromegaly. CARDIOVASCULAR: S1 and S2 present. No murmurs, rubs, or gallops. PULMONARY: Chest is clear to auscultation, no wheezing or crackles. ABDOMEN: Soft, nontender, nondistended, normoactive bowel sounds. No palpable organomegaly. MUSCULOSKELETAL: No joint swelling or deformity. EXTREMITIES: No cyanosis, clubbing, or pedal edema. NEUROLOGICAL: Gross neurological examination did not reveal any focal deficits. SKIN: No rashes. no petechiae. Results CBC & Chem 7: 07/02/22 11:16 07/02/22 11:16 Labs: Abnormal Lab Results - Last 24 Hours (Table) 07/02/22 07/02/22 07/02/22 Range/Units 11:16 11:16 11:16 WBC 10.8 H (3.8-10.6) k/uL RBC 3.34 L (4.30-5.90) m/uL Hgb 10.2 L (13.0-17.5) gm/dL Hct 31.5 L (39.0-53.0) % RDW 15.6 H (11.5-15.5) % Neutrophils # 9.3 H (1.3-7.7) k/uL Lymphocytes # 0.9 L (1.0-4.8) k/uL Potassium 5.8 H (3.5-5.1) mmol/L Chloride 109 H (98-107) mmol/L Carbon Dioxide 19 L (22-30) mmol/L BUN 92 H (9-20) mg/dL Creatinine 3.08 H (0.66-1.25) mg/dL Glucose 103 H (74-99) mg/dL Urine Protein Trace H (Negative) Ur Leukocyte Esterase Moderate H (Negative) Urine WBC 13 H (0-5) /hpf Urine Bacteria Rare H (None) /hpf Urine Mucus Rare H (None) /hpf Assessment and Plan Assessment: Acute kidney injury Hyperkalemia secondary to above Hypertension History of the venous thrombosis (not on anticoagulation) History of gastroesophageal reflux disease COPD with no acute exacerbation Chronic kidney disease, stage III History of small bowel resection status post colostomy Factor V leiden def history of bronchitis History of lung cancer diagnosed and treated in [place] Plan: Continue with IV hydration Nephrology consult monitor potassium. calcium gluconate, sodium bicarb, bicarb, insluin/dextrose 50 and lokelma x1 Labs and medication were reviewed.. Continue same treatment. Continue with symptomatic treatment. Resume home medication. Monitor labs and vitals. DVT and GI prophylaxis. Further recommendations as per clinical course of the patient DVT prophylaxis: Subcutaneous heparin GI Prophylaxis: Pepcid PT/OT: Pending Prognosis is guarded
[2022-07-02] MEDS ORDERED: CALCIUM GLUCONATE IN NACL 1 GM in SALINE 1 100ML.BAG IVPB ONE (14:00)
[2022-07-02 14:27] LABS: Glucose,Whole Blood 94 mg/dL (70-110)
[2022-07-02] MEDS ORDERED: NALOXONE 0.4 MG/ML 1 ML VIAL IV PRN (14:32)
[2022-07-02] MEDS ORDERED: ONDANSETRON 4 MG/2 ML VIAL IVP PRN (14:32)
[2022-07-02] MEDS: SODIUM CHLORIDE 0.9% 1,000 ML IV SCH (15:54)
[2022-07-02] MEDS ORDERED: ALBUTEROL NEBULIZED 2.5 MG/3 ML INHALATION PRN (20:11)
[2022-07-02] MEDS ORDERED: ALBUTEROL HFA INHALER INHALATION PRN (20:11)
[2022-07-02] MEDS: allopurinoL 100 MG TAB PO SCH (20:41)
[2022-07-02] MEDS: METOPROLOL TARTRATE 25 MG TAB PO SCH (20:41)
[2022-07-02] MEDS: HEPARIN SODIUM,PORCINE/PF 5,000 UNIT/0.5 ML SYRINGE SQ SCH (20:42)
[2022-07-02] MEDS: DOXAZOSIN 4 MG TAB PO SCH (20:42)
[2022-07-02] MEDS: FAMOTIDINE 20 MG/2 ML VIAL IV SCH (22:39)
[2022-07-03] MEDS: SODIUM CHLORIDE 0.9% 1,000 ML IV SCH ×2 (04:00→18:23)
[2022-07-03] MEDS: BUDESONIDE 0.25 MG/2 ML NEBU INHALATION SCH ×2 (09:21→23:05)
[2022-07-03] MEDS: IPRATROPIUM-ALBUTEROL 3 ML NEB INHALATION PRN (09:21)
[2022-07-03 09:29] LABS: Basophils % (A) 0 %; Eosinophils # (A) 0.1 k/uL (0-0.7); Eosinophils % (A) 1 %; HCT 32.9 % (39.0-53.0); HGB 10.1 gm/dL (13.0-17.5); Lymphocytes # (A) 1.2 k/uL (1.0-4.8); Lymphocytes % (A) 13 %; MCH 30.1 pg (25.0-35.0); MCHC 30.8 g/dL (31.0-37.0); MCV 97.7 fL (80.0-100.0); Mean Platelet Volume 9.3; Monocytes # (A) 0.5 k/uL (0-1.0); Monocytes % (A) 5 %; Neutrophils # (A) 7.2 k/uL (1.3-7.7); Neutrophils % (A) 78 %; Platelet Count 213 k/uL (150-450); RBC 3.37 m/uL (4.30-5.90); RDW 15.1 % (11.5-15.5); WBC 9.2 k/uL (3.8-10.6)
[2022-07-03 09:46] LABS: African American GFR (CKD) 21 (>60 ml/min/1.73 sqM); Anion Gap 12 mmol/L; Blood Urea Nitrogen 79 mg/dL (9-20); Calcium 9.2 mg/dL (8.4-10.2); Carbon Dioxide 19 mmol/L (22-30); Chloride 111 mmol/L (98-107); Glucose 97 mg/dL (74-99); Non-African American GFR(CKD) 18 (>60 ml/min/1.73 sqM); Sodium 142 mmol/L (137-145)
[2022-07-03 09:47] LABS: Potassium 5.3 mmol/L (3.5-5.1)
[2022-07-03] MEDS: HEPARIN SODIUM,PORCINE/PF 5,000 UNIT/0.5 ML SYRINGE SQ SCH ×2 (10:07→21:39)
[2022-07-03] MEDS: FOLIC ACID 1 MG TAB PO SCH (10:07)
[2022-07-03] MEDS: METOPROLOL TARTRATE 25 MG TAB PO SCH ×2 (10:07→21:39)
--- NOTE | 2022-07-03 11:08 | P.NPCON ---
History of Present Illness - Reason for Consult hyperkalemia - History of Present Illness Patient is a 76-year-old male with history of chronic kidney disease being followed at our office for CKD stage IIIB with baseline creatinine about 1.6-1.8 mg/dL. Patient was admitted to the hospital due to abnormal labs with elevated potassium at 6.2 and creatinine elevated at 3.2 mg/dL. Patient states that he has had a similar admission about 2 weeks ago for hyperkalemia. Patient denies any significant increase in potassium-containing foods. He there is no history of use of NSAIDs. Patient states he is been voiding well. No new medications. Blood sugar was not elevated Repeat potassium is down to 5.2 and 5.3 today however serum creatinine remains elevated at 3.1. Maintained on IV fluids No urinary symptoms per patient Review of Systems As per HPI Past Medical History Past Medical History: Blood Disorder, Cancer, COPD, Deep Vein Thrombosis (DVT), GERD/Reflux, Hypertension, Pneumonia, Renal Disease Additional Past Medical History / Comment(s): hx of pseudomonus lung infection, uses CPAP not for sleep apnea, O2 prn 2l prn, diverticulits, Factor V Leiden, hx of bronchial silicone stent now removed, PICC line in past now removed, past hx dialysis for kidney damage, none currently, Stage 3 renal disease, Lung cancer - diagnosed and treated down in [place], Colostomy, hernia repair History of Any Multi-Drug Resistant Organisms: MRSA, Other MDRO Date of last positivie culture/infection: 08/30/21-MRSA MDRO Source:: Sputum-MDRO & MRSA Past Surgical History: Hernia Repair, Tonsillectomy Additional Past Surgical History / Comment(s): bronchoscopy, bronchial silicone stent, now removed, fatty tumor removed from chest area, COLONOSCOPY, alexandre cataract, hernia repair Past Anesthesia/Blood Transfusion Reactions: Previous Problems w/ Anesthesia Additional Past Anesthesia/Blood Transfusion Reaction / Comment(s): "as turned black and blue from ETHER". FACTOR V LEIDEN Past Psychological History: Anxiety Smoking Status: Former smoker Past Alcohol Use History: None Reported Additional Past Alcohol Use History / Comment(s): STARTED SMOKING AT AGE 14, QUIT SMOKING 2012 Past Drug Use History: None Reported - Past Family History Father Family Medical History: Cancer Additional Family Medical History / Comment(s): colon cancer Mother Family Medical History: Cancer Additional Family Medical History / Comment(s): leukemia Medications and Allergies Home Medications Medication Instructions Recorded Confirmed Type Montelukast Sodium [Singulair] 10 mg PO HS 01/24/14 07/02/22 History Albuterol Nebulized [Ventolin 2.5 mg INHALATION RT-TID PRN 07/25/16 07/02/22 History Nebulized] Metoprolol Tartrate [Lopressor] 25 mg PO BID 07/25/16 07/02/22 History Doxazosin [Cardura] 4 mg PO HS 09/01/18 07/02/22 History L.acidoph,Paracasei, B.lactis 1 cap PO DAILY 09/01/18 07/02/22 History [Probiotic] allopurinoL [Zyloprim] 100 mg PO HS 11/21/19 07/02/22 History Albuterol Sulfate [Ventolin HFA] 2 puff INHALATION RT-QID PRN 10/21/21 07/02/22 History Budesonide 0.25 mg INHALATION RT-BID 10/21/21 07/02/22 History Fluticasone/Umeclidin/Vilanter 1 puff INHALATION RT-DAILY 10/21/21 07/02/22 History [Trelegy Ellipta 100-62.5-25] Ascorbic Acid [Vitamin C] 1,000 mg PO HS 01/29/22 07/02/22 History Cholecalciferol [Vitamin D3 (25 50 mcg PO DAILY 01/29/22 07/02/22 History Mcg = 1000 Iu)] Ipratropium-Albuterol Nebulize 3 ml INHALATION RT-QID PRN 01/29/22 07/02/22 History [Duoneb 0.5 mg-3 mg/3 ml Soln] Magnesium Oxide [Mag-Ox] 400 mg PO HS 01/29/22 07/02/22 History Cyanocobalamin (Vitamin B-12) 1,000 mcg PO DAILY 07/02/22 07/02/22 History [Vitamin B-12] Folic Acid 0.4 mg PO DAILY 07/02/22 07/02/22 History Loratadine [Claritin] 10 mg PO DAILY 07/02/22 07/02/22 History guaiFENesin [Mucinex] 600 mg PO TID PRN 07/02/22 07/02/22 History Allergies Allergy/AdvReac Type Severity Reaction Status Date / Time cefepime Allergy SHUT DOWN Verified 07/02/22 14:41 KIDNEYS ether Allergy Anaphylaxis Verified 07/02/22 14:41 Iodinated Contrast Media Allergy PAST Verified 07/02/22 14:41 [Iodinated Contrast Media - HISTORY OF Oral and] KIDNEY PROBLEMS venom-honey bee Allergy Anaphylaxis Verified 07/02/22 14:41 sulfamethoxazole AdvReac states Verified 07/02/22 14:41 [From Bactrim] effects kidneys trimethoprim [From Bactrim] AdvReac states Verified 07/02/22 14:41 effects kidneys Physical Exam Vitals: Vital Signs Temp Pulse Pulse Resp BP BP Pulse Ox 07/03/22 09:36 90 07/03/22 09:23 88 97 07/03/22 07:09 98.1 F 89 18 105/56 97 07/03/22 02:00 98.6 F 100 17 124/64 94 L 07/02/22 19:48 97.9 F 86 18 155/68 92 L 07/02/22 18:27 98.8 F 75 16 140/62 98 Intake and Output 07/02/22 07/03/22 07/03/22 22:59 06:59 14:59 Output Total 900 500 Balance -900 -500 Output: Urine 900 500 Other: Voiding Method Toilet Urinal Weight 68.039 kg Patient is awake, comfortable, no acute distress Examination of the heart S1 and S2 Examination the lungs bilateral breath sounds are heard Examination of lower extremities shows no evidence of edema [employer] INSPECTOR exam grossly intact Results - Lab Results Most recent lab results Calcium 9.2 mg/dL (8.4-10.2) 07/03/22 09:08 Magnesium 2.0 mg/dL (1.6-2.3) 07/02/22 11:16 07/03/22 09:08 07/03/22 09:08 Assessment and Plan Assessment: 1. Acute kidney injury rule out urine retention. Possibly prerenal. Patient is maintained on IV fluids. UA shows WBCs 13 and trace protein. No new medications noted. Check random urine eosinophils for possible acute in terstitial nephritis. 2. Hyperkalemia associated with acute kidney injury. No other obvious cause notified. Patient also has mild metabolic acidosis which is corrected will help with the hyperkalemia as well. 3. Chronic kidney disease NKF stage IIIB with baseline creatinine around 1.6- 1.8 mg/dL as of February 2022 Plan: Check bladder scan Add oral sodium bicarb Patient will need follow-up as outpatient in 1-2 weeks Check random urine eosinophils to rule out acute interstitial nephritis Will obtain results of ultrasound done 2 weeks ago at [facility]
[2022-07-03] MEDS: SODIUM BICARBONATE TAB 650 MG TAB PO SCH ×2 (13:27→21:39)
--- NOTE | 2022-07-03 13:42 | P.GSCN ---
History of Present Illness Consult date: 07/03/22 History of present illness: CHIEF COMPLAINT: Elevated potassium Reason for consult: Colostomy reversal HISTORY OF PRESENT ILLNESS: This is a 76-year-old male who presented to the hospital due to elevated potassium level and acute kidney injury. He is followed by nephrology. 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 Patient is scheduled for a colostomy reversal on Thursday with Dr. Sainz out of [facility]. Patient is eager to keep that appointment. He also has a known ventral hernia. He reports that the plan is to repair that after the colostomy reversal. Patient is up and ambulating. He reports ostomy is functioning appropriately. Denies any abdominal pain. He is wearing an abdominal binder. Denies any nausea or vomiting. PAST MEDICAL HISTORY: See below PAST SURGICAL HISTORY: See below MEDICATIONS: See below ALLERGIES: See below SOCIAL HISTORY: No illicit drug use. REVIEW OF SYSTEMS: CONSTITUTIONAL: Denies fever or chills. HEENT: Denies blurred vision, vision changes, or eye pain. Denies hemoptysis CARDIOVASCULAR: Denies chest pain or pressure. RESPIRATORY: No shortness of breath. GASTROINTESTINAL: See HPI for pertinent findings HEMATOLOGIC: Denies bleeding disorders. GENITOURINARY: Denies any blood in urine or increased urinary frequency. SKIN: Denies pruitis. Denies rash. PHYSICAL EXAM: VITAL SIGNS: Reviewed GENERAL: Well-developed in no acute distress. HEENT: No sclera icterus. Extraocular movements grossly intact. Moist buccal m ucosa. Head is atraumatic, normocephalic. No nasal drainage. ABDOMEN: Soft. large Ventral hernia present. Colostomy on the left with stool NEUROLOGIC: Alert and oriented. Cranial nerves II through XII grossly intact. LABORATORY DATA: WBC 10.8 down to 9.2 Hgb 10.1 platelets 213 Sodium 142 potassium is 5.3 creatinine 3.12 IMAGING: ASSESSMENT: 1. History of sigmoid colon resection with colostomy placement for colovesical fistula 2. Ventral hernia PLAN: -Patient to keep his surgical appointment on Thursday with Dr. Sainz out of [place] for colostomy reversal -Continue supportive Physician Wrapper Caser note has been reviewed by physician. Signing provider agrees with the documented findings, assessment, and plan of care. Past Medical History Past Medical History: Blood Disorder, Cancer, COPD, Deep Vein Thrombosis (DVT), GERD/Reflux, Hypertension, Pneumonia, Renal Disease Additional Past Medical History / Comment(s): hx of pseudomonus lung infection, uses CPAP not for sleep apnea, O2 prn 2l prn, diverticulits, Factor V Leiden, hx of bronchial silicone stent now removed, PICC line in past now removed, past hx dialysis for kidney damage, none currently, Stage 3 renal disease, Lung cancer - diagnosed and treated down in [place], Colostomy, hernia repair History of Any Multi-Drug Resistant Organisms: MRSA, Other MDRO Year Discovered:: 08/30/21-MRSA MDRO Source:: Sputum-MDRO & MRSA Past Surgical History: Hernia Repair, Tonsillectomy Additional Past Surgical History / Comment(s): bronchoscopy, bronchial silicone stent, now removed, fatty tumor removed from chest area, COLONOSCOPY, alexandre cataract, hernia repair Past Anesthesia/Blood Transfusion Reactions: Previous Problems w/ Anesthesia Additional Past Anesthesia/Blood Transfusion Reaction / Comm: "as turned black and blue from ETHER". FACTOR V LEIDEN Past Psychological History: Anxiety Smoking Status: Former smoker Past Alcohol Use History: None Reported Additional Past Alcohol Use History / Comment(s): STARTED SMOKING AT AGE 14, QUIT SMOKING 2012 Past Drug Use History: None Reported - Past Family History Father Family Medical History: Cancer Additional Family Medical History / Comment(s): colon cancer Mother Family Medical History: Cancer Additional Family Medical History / Comment(s): leukemia Medications and Allergies Home Medications Medication Instructions Recorded Confirmed Type Montelukast Sodium [Singulair] 10 mg PO HS 01/24/14 07/02/22 History Albuterol Nebulized [Ventolin 2.5 mg INHALATION RT-TID PRN 07/25/16 07/02/22 History Nebulized] Metoprolol Tartrate [Lopressor] 25 mg PO BID 07/25/16 07/02/22 History Doxazosin [Cardura] 4 mg PO HS 09/01/18 07/02/22 History L.acidoph,Paracasei, B.lactis 1 cap PO DAILY 09/01/18 07/02/22 History [Probiotic] allopurinoL [Zyloprim] 100 mg PO HS 11/21/19 07/02/22 History Albuterol Sulfate [Ventolin HFA] 2 puff INHALATION RT-QID PRN 10/21/21 07/02/22 History Budesonide 0.25 mg INHALATION RT-BID 10/21/21 07/02/22 History Fluticasone/Umeclidin/Vilanter 1 puff INHALATION RT-DAILY 10/21/21 07/02/22 History [Aria Ellipta 100-62.5-25] Ascorbic Acid [Vitamin C] 1,000 mg PO HS 01/29/22 07/02/22 History Cholecalciferol [Vitamin D3 (25 50 mcg PO DAILY 01/29/22 07/02/22 History Mcg = 1000 Iu)] Ipratropium-Albuterol Nebulize 3 ml INHALATION RT-QID PRN 01/29/22 07/02/22 History [Duoneb 0.5 mg-3 mg/3 ml Soln] Magnesium Oxide [Mag-Ox] 400 mg PO HS 01/29/22 07/02/22 History Cyanocobalamin (Vitamin B-12) 1,000 mcg PO DAILY 07/02/22 07/02/22 History [Vitamin B-12] Folic Acid 0.4 mg PO DAILY 07/02/22 07/02/22 History Loratadine [Claritin] 10 mg PO DAILY 07/02/22 07/02/22 History guaiFENesin [Mucinex] 600 mg PO TID PRN 07/02/22 07/02/22 History Allergies Allergy/AdvReac Type Severity Reaction Status Date / Time cefepime Allergy SHUT DOWN Verified 07/02/22 14:41 KIDNEYS ether Allergy Anaphylaxis Verified 07/02/22 14:41 Iodinated Contrast Media Allergy PAST Verified 07/02/22 14:41 [Iodinated Contrast Media - HISTORY OF Oral and] KIDNEY PROBLEMS venom-honey bee Allergy Anaphylaxis Verified 07/02/22 14:41 sulfamethoxazole AdvReac states Verified 07/02/22 14:41 [From Bactrim] effects kidneys trimethoprim [From Bactrim] AdvReac states Verified 07/02/22 14:41 effects kidneys Surgical - Exam Vital Signs Temp Pulse Resp BP Pulse Ox 97.9 F 64 20 110/62 96 07/02/22 10:27 07/02/22 10:27 07/02/22 10:27 07/02/22 10:27 07/02/22 10:27 Results - Labs 07/03/22 09:08 07/03/22 09:08 Abnormal Lab Results - Last 24 Hours (Table) 07/02/22 07/03/22 07/03/22 Range/Units 19:01 09:08 09:08 RBC 3.37 L (4.30-5.90) m/uL Hgb 10.1 L (13.0-17.5) gm/dL Hct 32.9 L (39.0-53.0) % MCHC 30.8 L (31.0-37.0) g/dL Potassium 5.2 H 5.3 H (3.5-5.1) mmol/L Chloride 111 H (98-107) mmol/L Carbon Dioxide 19 L (22-30) mmol/L BUN 79 H (9-20) mg/dL Creatinine 3.12 H (0.66-1.25) mg/dL Diabetes panel 07/02/22 07/03/22 Range/Units 19:01 09:08 Sodium 142 (137-145) mmol/L Potassium 5.2 H 5.3 H (3.5-5.1) mmol/L Chloride 111 H (98-107) mmol/L Carbon Dioxide 19 L (22-30) mmol/L BUN 79 H (9-20) mg/dL Creatinine 3.12 H (0.66-1.25) mg/dL Glucose 97 (74-99) mg/dL Calcium 9.2 (8.4-10.2) mg/dL Calcium panel 07/03/22 Range/Units 09:08 Calcium 9.2 (8.4-10.2) mg/dL Pituitary panel 07/02/22 07/03/22 Range/Units 19:01 09:08 Sodium 142 (137-145) mmol/L Potassium 5.2 H 5.3 H (3.5-5.1) mmol/L Chloride 111 H (98-107) mmol/L Carbon Dioxide 19 L (22-30) mmol/L BUN 79 H (9-20) mg/dL Creatinine 3.12 H (0.66-1.25) mg/dL Glucose 97 (74-99) mg/dL Calcium 9.2 (8.4-10.2) mg/dL Adrenal panel 07/02/22 07/03/22 Range/Units 19:01 09:08 Sodium 142 (137-145) mmol/L Potassium 5.2 H 5.3 H (3.5-5.1) mmol/L Chloride 111 H (98-107) mmol/L Carbon Dioxide 19 L (22-30) mmol/L BUN 79 H (9-20) mg/dL Creatinine 3.12 H (0.66-1.25) mg/dL Glucose 97 (74-99) mg/dL Calcium 9.2 (8.4-10.2) mg/dL
--- NOTE | 2022-07-03 19:39 | P.PN ---
Subjective This is a pleasant 76 years old male with multiple medical problems. 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 Heath and he was called today to come to emergency room because of high potassium level and high creatinine. Patient denies any specific symptoms other than feel little more tired than usual Also reports increased frequency of urination but no change in volume or dysuria or urgency He denies chest pain or dyspnea or coughing, no headache dizziness weakness of extremities or abnormal sensation. No blurred vision or slurred speech. No diarrhea abdominal pain or vomiting. He does not take any extra pain medication currently, he is not on antibiotic c urrently. He states only baby aspirin and brought on anticoagulation patient supposed to follow-up with his surgeon Dr. Sainz next Thursday for reversal of his colostomy, he states that 1 year ago he had the sigmoid colon removed and had colostomy since then. Vital signs stable That showed mild leukocytosis of 13.8, hemoglobin 10.2, platelet count normal. Creatinine is elevated 3.0, baseline 1.3-1.7 Potassium 5.8. Liver enzymes not elevated. Urine analysis showing trace protein and moderate leukocyte esterase and WBC 13. EKG showing normal sinus rhythm at 70 bpm with left axis deviation, no ST-T changes. QRS is 146 prolonged which is similar to old EKG Objective - Vital Signs Vital signs: Vital Signs Temp 98.1 F 07/03/22 07:09 Pulse 90 07/03/22 09:36 Resp 18 07/03/22 07:09 BP 105/56 07/03/22 07:09 Pulse Ox 97 07/03/22 09:23 FiO2 Intake & Output 07/02/22 07/03/22 07/03/22 18:59 06:59 18:59 Output Total 900 500 Balance -900 -500 Weight 68.039 kg 68.039 kg Output: Urine 900 500 Other: Voiding Method Toilet Urinal - Exam GENERAL: The patient is alert and oriented x3, not in any acute distress. Well developed, well nourished. HEENT: Pupils are round and equally reacting to light. EOMI. No scleral icterus. No conjunctival pallor. Normocephalic, atraumatic. No pharyngeal erythema. No thyromegaly. CARDIOVASCULAR: S1 and S2 present. No murmurs, rubs, or gallops. PULMONARY: Chest is clear to auscultation, no wheezing or crackles. ABDOMEN: Soft, nontender, nondistended, normoactive bowel sounds. No palpable organomegaly. MUSCULOSKELETAL: No joint swelling or deformity. EXTREMITIES: No cyanosis, clubbing, or pedal edema. NEUROLOGICAL: Gross neurological examination did not reveal any focal deficits. SKIN: No rashes. no petechiae. 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 Patient has appointment with Dr. Sainz for colostomy reversal on Friday 07/07 Hypertension History of the venous thrombosis (not on anticoagulation) History of gastroesophageal reflux disease COPD with no acute exacerbation Chronic kidney disease, stage III History of small bowel resection status post colostomy Factor V leiden def history of bronchitis History of lung cancer diagnosed and treated in [place] Plan: Continue with IV hydration Nephrology consult is appreciated, and surgery consult Continue with sodium bicarb Check a bladder scan Labs and medication were reviewed.. Continue same treatment. Continue with symptomatic treatment. Resume home medication. Monitor labs and vitals. DVT and GI prophylaxis. Further recommendations as per clinical course of the patient DVT prophylaxis: Subcutaneous heparin GI Prophylaxis: Pepcid PT/OT: Pending Prognosis is guarded
[2022-07-03] MEDS: DOXAZOSIN 4 MG TAB PO SCH (21:38)
[2022-07-03] MEDS: allopurinoL 100 MG TAB PO SCH (21:39)
[2022-07-03] MEDS: FAMOTIDINE 20 MG/2 ML VIAL IV SCH (21:59)
[2022-07-04] MEDS: SODIUM CHLORIDE 0.9% 1,000 ML IV SCH (04:53)
[2022-07-04] MEDS: BUDESONIDE 0.25 MG/2 ML NEBU INHALATION SCH (08:50)
[2022-07-04 09:30] LABS: African American GFR (CKD) 18.9 (60.0-200.0); Anion Gap 9.5 mmol/L (10.00-18.00); BUN/Creat Ratio 20.91 Ratio (12.00-20.00); Blood Urea Nitrogen 71.1 mg/dL (9.0-27.0); Calcium 8.7 mg/dL (8.7-10.3); Carbon Dioxide 19.5 mmol/L (20.0-27.5); Non-African American GFR(CKD) 16.3 (60.0-200.0); Potassium 5.2 mmol/L (3.5-5.5)
--- NOTE | 2022-07-04 10:10 | XR ---
EXAMINATION TYPE: XR chest 1V DATE OF EXAM: 07/04/2022 CLINICAL HISTORY: Difficulty breathing hand CHF progress study. TECHNIQUE: Single AP portable upright view of the chest is obtained. COMPARISON: Chest x-ray from March 04, 2022 FINDINGS: Background chronic parenchymal change bilaterally redemonstrated. Persistent small to mode rate size right pleural effusion and associated right basilar opacity. Persistent spiculated right up per lung 2.0 cm area concerning for neoplasm. Less prominent patchy left basilar opacity on current s tudy. No pneumothorax seen bilaterally. Cardiac silhouette size stable mildly enlarged with atheroscl erotic and ectatic thoracic aorta. Osseous structures are intact. IMPRESSION: Small to moderate size right pleural effusion with associated right basilar atelectasis a nd/or infiltrate redemonstrated. No significant change from prior. Patchy left basilar atelectasis is improved from prior. Suspicious spiculated right upper lobe nodule remains present. Consider diagnos tic CT follow-up to reassess.
[2022-07-04] MEDS: FOLIC ACID 1 MG TAB PO SCH (10:17)
[2022-07-04] MEDS: HEPARIN SODIUM,PORCINE/PF 5,000 UNIT/0.5 ML SYRINGE SQ SCH (10:17)
[2022-07-04] MEDS: SODIUM BICARBONATE TAB 650 MG TAB PO SCH (10:17)
[2022-07-04] MEDS: METOPROLOL TARTRATE 25 MG TAB PO SCH (10:17)
[2022-07-04] MEDS: IPRATROPIUM-ALBUTEROL 3 ML NEB INHALATION PRN (10:35)
--- NOTE | 2022-07-04 11:56 | P.PN ---
Subjective Progress Note Date: 07/04/22 CHIEF COMPLAINT: Colostomy reversal HISTORY OF PRESENT ILLNESS: Patient is scheduled for acute kidney injury and hyperkalemia. Surgical service is following in regards to possible colostomy reversal. Patient is already scheduled with Dr. Sainz out [facility] for colostomy reversal. Patient does report that his surgery is canceled for Thursday. But he is planning on rescheduling surgery with Dr. Sainz. Denies abdominal pain. Ostomy functioning. Afebrile. Denies any nausea or vomiting. Afebrile. Potassium is down to 5.2 creatinine 3.4 PHYSICAL EXAM: VITAL SIGNS: Reviewed. GENERAL: Well-developed in no acute distress. HEENT: No sclera icterus. Extraocular movements grossly intact. Moist buccal mucosa. Head is atraumatic, normocephalic. ABDOMEN: Soft. Nondistended. Nontender. Colostomy with stool. Ventral hernia is reduced while lying down. NEUROLOGIC: Alert and oriented. Cranial nerves II through XII grossly intact. ASSESSMENT: 1. History of sigmoid colon resection with colostomy placement for colovesical fistula 2. Ventral hernia PLAN: -Patient to follow with his surgeon out [facility] for colostomy reversal and eventually ventral hernia repair -Hyperkalemia and acute kidney injury managed by nephrology Physician Director Operating note has been reviewed by physician. Signing provider agrees with the documented findings, assessment, and plan of care. Objective - Vital Signs Vital signs: Vital Signs Temp 98.3 F 07/04/22 07:04 Pulse 90 07/04/22 10:53 Resp 21 07/04/22 07:04 BP 102/48 07/04/22 07:04 Pulse Ox 96 07/04/22 08:50 FiO2 Intake & Output 07/03/22 07/04/22 07/04/22 18:59 06:59 18:59 Output Total 500 Balance -500 Output: Urine 500 Other: # Voids 4 - Labs CBC & Chem 7: 07/03/22 09:08 07/04/22 05:52 Labs: Abnormal Lab Results - Last 24 Hours (Table) 07/04/22 Range/Units 05:52 Chloride 111 H (96-109) mmol/L Carbon Dioxide 19.5 L (20.0-27.5) mmol/L Anion Gap 9.50 L (10.00-18.00) mmol/L BUN 71.1 H (9.0-27.0) mg/dL Creatinine 3.4 H (0.6-1.5) mg/dL Est GFR (CKD-EPI)AfAm 18.9 L (60.0-200.0) Est GFR (CKD-EPI)NonAf 16.3 L (60.0-200.0) BUN/Creatinine Ratio 20.91 H (12.00-20.00) Ratio
[2022-07-04 14:39] VITALS: BP 129/55; PULSE 64; RESP 17; TEMP 97.7
--- NOTE | 2022-07-16 11:58 | P.DS ---
Providers Date of admission: 07/02/22 14:29 Attending physician: El Krishnan MD Consults: 07/02/22 14:32 Consult Physician Urgent Consulting Provider: Delma Bryant Consult Reason/Comments: Acute kidney injury, hyperkalemia Do you want consulting provider notified?: Yes 07/03/22 11:23 Consult Physician Routine Consulting Provider: Que Munoz Consult Reason/Comments: recent surgery, need reversal Do you want consulting provider notified?: Yes Primary care physician: Keshawn Suarez MD Hospital Course: Diagnoses: Acute kidney injury Hyperkalemia secondary to above Hypertension. 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 Patient states that about 2 weeks ago he had similar problem of high potassium and he was in the hospital and discharge home from [facility], yesterday she was doing regular follow-up with his director of online merchandising Dr. Heath and he was called today to come to emergency room because of high potassium level and high creatinine. Patient denies any specific symptoms other than feel little more tired than usual Patient developed by director of online merchandising, creatinine stable, potassium level improved, patient is as symptomatic and patient was cleared for discharge by Dr. Bryant. Patient also evaluated by surgery clinic for reversal of his colostomy and they recommended follow-up with his surgeon as already been planed previously Patient was cleared by consultants including nephrology team Problems and management plan were discussed with the patient and he verbalized understanding and acceptance Patient was found stable and can be discharged home in guarded prognosis however he needs follow-up as an outpatient. Patient was instructed to follow up with PCP Dr. Suarez within one week and patient agrees patient was instructed to follow up with his director of online merchandising Dr. Cortés/Dr. Bryant in one week and he agrees to call and make appointments Patient also referred to jewel setter Dr. Cortez for right lung nodule and patient agrees with the appointments made for him on 07/24 stating that he will follow-up, Risks including but not limited to cancer are explained for the patient and he verbalized understanding and acceptance Physical exam Gen: patient is a AAOx3, no distress CVS: S1-S2, RRR, no murmur Lungs: B/L CTA, no wheezing Abdomen: soft, no distention, no tenderness, positive bowel sounds Extremity: no leg edema or induration Time spent more than 35 minutes Patient Condition at Discharge: Fair Plan - Discharge Summary Discharge Rx Participant: Yes New Discharge Prescriptions: New Sodium Bicarbonate Tab 650 mg PO BID #60 tab Continue Montelukast Sodium [Singulair] 10 mg PO HS Metoprolol Tartrate [Lopressor] 25 mg PO BID L.acidoph,Paracasei, B.lactis [Probiotic] 1 cap PO DAILY Doxazosin [Cardura] 4 mg PO HS allopurinoL [Zyloprim] 100 mg PO HS Albuterol Sulfate [Ventolin HFA] 2 puff INHALATION RT-QID PRN PRN Reason: Shortness Of Breath Cholecalciferol [Vitamin D3 (25 Mcg = 1000 Iu)] 50 mcg PO DAILY Cyanocobalamin (Vitamin B-12) [Vitamin B-12] 1,000 mcg PO DAILY Folic Acid 0.4 mg PO DAILY Budesonide 0.25 mg INHALATION RT-BID Fluticasone/Umeclidin/Vilanter [Trelegy Ellipta 100-62.5-25] 1 puff INHALATION RT-DAILY Ipratropium-Albuterol Nebulize [Duoneb 0.5 mg-3 mg/3 ml Soln] 3 ml INHALATION RT-QID PRN PRN Reason: Shortness Of Breath Loratadine [Claritin] 10 mg PO DAILY Discontinued Magnesium Oxide [Mag-Ox] 400 mg PO HS Ascorbic Acid [Vitamin C] 1,000 mg PO HS guaiFENesin [Mucinex] 600 mg PO TID PRN PRN Reason: Cough No Action Famotidine [Pepcid] 20 mg PO DAILY Discharge Medication List Montelukast Sodium [Singulair] 10 mg PO HS 01/24/14 [History] Metoprolol Tartrate [Lopressor] 25 mg PO BID 07/25/16 [History] Doxazosin [Cardura] 4 mg PO HS 09/01/18 [History] L.acidoph,Paracasei, B.lactis [Probiotic] 1 cap PO DAILY 09/01/18 [History] allopurinoL [Zyloprim] 100 mg PO HS 11/21/19 [History] Albuterol Sulfate [Ventolin HFA] 2 puff INHALATION RT-QID PRN 10/21/21 [History] Budesonide 0.25 mg INHALATION RT-BID 10/21/21 [History] Fluticasone/Umeclidin/Vilanter [Trelegy Ellipta 100-62.5-25] 1 puff INHALATION RT-DAILY 10/21/21 [History] Cholecalciferol [Vitamin D3 (25 Mcg = 1000 Iu)] 50 mcg PO DAILY 01/29/22 [History] Ipratropium-Albuterol Nebulize [Duoneb 0.5 mg-3 mg/3 ml Soln] 3 ml INHALATION RT-QID PRN 01/29/22 [History] Cyanocobalamin (Vitamin B-12) [Vitamin B-12] 1,000 mcg PO DAILY 07/02/22 [His tory] Folic Acid 0.4 mg PO DAILY 07/02/22 [History] Loratadine [Claritin] 10 mg PO DAILY 07/02/22 [History] Sodium Bicarbonate Tab 650 mg PO BID #60 tab 07/04/22 [Rx] Famotidine [Pepcid] 20 mg PO DAILY 07/11/22 [History] Follow up Appointment(s)/Referral(s): Delma Bryant MD [STAFF PHYSICIAN] - 07/09/22 2:20 pm Ramona Cortez MD [STAFF PHYSICIAN] - 07/24/22 9:15 am (for your right lung nodule) Keshawn Suarez MD [Primary Care Provider] - 1-2 days Patient Instructions/Handouts: Acute Kidney Injury (DC) Activity/Diet/Wound Care/Special Instructions: Renal diet, low potassium, low sodium diet activity is restricted till you see your doctor Discharge Disposition: HOME SELF-CARE
== END 2022-07-04 15:35 | disposition home or self-care (01) | DRG 683 ==
LOC: EC 10:16 → 4SSUR 14:29
PROVIDERS: ADMIT Internal Medicine; ATTEND Internal Medicine
DX: N17.9 Acute kidney failure, unspecified (principal); D68.51 Activated protein C resistance; E87.20 Acidosis, unspecified; E87.5 Hyperkalemia; K21.9 Gastro-esophageal reflux disease without esophagitis; J44.9 Chronic obstructive pulmonary disease, unspecified; F41.9 Anxiety disorder, unspecified; K43.9 Ventral hernia without obstruction or gangrene; N18.32 Chronic kidney disease, stage 3b; Z86.14 Personal history of Methicillin resistant Staphylococcus aureus infection; Z88.2 Allergy status to sulfonamides; Z88.4 Allergy status to anesthetic agent; Z88.1 Allergy status to other antibiotic agents; Z91.030 Bee allergy status; Z91.041 Radiographic dye allergy status; Z86.718 Personal history of other venous thrombosis and embolism; Z79.82 Long term (current) use of aspirin; Z79.899 Other long term (current) drug therapy; Z80.0 Family history of malignant neoplasm of digestive organs; Z90.49 Acquired absence of other specified parts of digestive tract; I12.9 Hypertensive chronic kidney disease with stage 1 through stage 4 chronic kidney disease, or unspecified chronic kidney disease; R91.1 Solitary pulmonary nodule; Z93.3 Colostomy status; Z85.118 Personal history of other malignant neoplasm of bronchus and lung
CPT/HCPCS: 36415; 71045; 80048; 80053; 81001; 83735; 84132; 85025; 93005; 94640; 94760; 96361; 96365; 96375; 99285

== ENCOUNTER → 2022-08-09 | Outpatient (CLI) | payer MEDICARE, BC ==
--- NOTE | 2022-08-10 22:59 | PE ---
EXAMINATION TYPE: PET CT fusion skull to thigh DATE OF EXAM: 08/09/2022 CLINICAL INDICATION:Male, 76 years old with history of R91.1; TECHNIQUE: Following the intravenous administration of 12.55 mCi of F-18 FDG, whole body images are performed from the skull base to the midthigh. Images are reviewed on the computer in the coronal, axial, and sagittal planes. Reconstructed rotating images are created on independent workstation and reviewed on the computer. A non-contrast CT is performed in conjunction with the PET scan. Glucose level 100 mg/dL COMPARISON: CT 02/24/2022, PET/CT 09/13/2021, FINDINGS: Mediastinal SUV mean is 1.3. Hepatic parenchyma SUV mean is 2.1. SKULL BASE AND NECK: No suspicious radiotracer activity. CHEST, MEDIASTINUM, AND HILAR REGION: * There is more solid appearance of the right upper lobe spiculated nodule measuring up to 2.0 cm pr eviously more groundglass appearing with small solid component measuring up to 10 mm. Max SUV 1.1, pr eviously 0.9. * There is right-sided pleural effusion somewhat loculated appearance. * Similar morphology to the mediastinal lymph nodes. No abnormal FDG activity within the mediastinal lymph nodes. ABDOMEN AND PELVIS: Areas seen in the pelvis next the surgical bed of increased FDG activity has decreased area max SUV 3 .2, previously 6.6, a more focal area towards midline now max SUV 3.3, previously 3.6. OSSEOUS STRUCTURES: No suspicious radiotracer activity. OTHER CT: Moderate to severe calcified plaque right carotid bulb level with more mild calcified plaqu e left carotid bulb level. Mild to moderate coronary artery calcification which is noted marker for u nderlying coronary artery disease. Nonspecific scattered hypodense lesions throughout the liver favor ing thin-walled cysts. No suspicious hypermetabolic uptake noted. Cortical thinning of both kidneys c onsistent with product of chronic medical renal disease. Colonic diverticula. Mildly enlarged prostat e gland consistent with BPH. Central calcifications are present. Left-sided ostomy. Slight Scoliotic curvature in the lumbar spine. Multilevel spurring and disc space narrowing. IMPRESSION: 1. More solid appearance of the right upper lobe pulmonary nodule compared to prior PET/CT. Findings remain concerning for malignancy bronchioloalveolar malignancy can have low FDG values. No other echo picious FDG activity within the lungs. 2. Decrease in FDG activity near the surgical bed of the sigmoid colon/rectum. Continued surveillanc e is recommended with CT. There is ill-defined tissue within this region which is which limits evalua tion. A CT with rectal contrast could be performed to evaluate this region if clinically warranted in the future.
== END | disposition home or self-care (01) ==
LOC: RADPETMAIN 10:59
PROVIDERS: ATTEND Internal Medicine Critical Care Medicine
DX: R91.1 Solitary pulmonary nodule (principal); K63.89 Other specified diseases of intestine
CPT/HCPCS: 78815; A9552

== ENCOUNTER 2022-12-20 10:40 | Inpatient (IN) | payer MEDICARE, BC ==
[2022-12-20] MEDS ORDERED: IPRATROPIUM-ALBUTEROL 3 ML NEB INHALATION STA (10:56)
[2022-12-20] MEDS ORDERED: methylPREDNISolone SOD SUCCI 125 MG/2 ML VIAL IV STA (10:56)
[2022-12-20 11:20] LABS: Anisocytosis Slight; Basophils % (A) 0 %; Eosinophils # (A) 0.1 k/uL (0-0.7); Eosinophils % (A) 1 %; HCT 28.4 % (39.0-53.0); Hypochromasia Marked; Lymphocytes # (A) 1.3 k/uL (1.0-4.8); Lymphocytes % (A) 18 %; MCH 28.4 pg (25.0-35.0); MCHC 29.9 g/dL (31.0-37.0); MCV 95.1 fL (80.0-100.0); Mean Platelet Volume 9.2; Monocytes # (A) 0.3 k/uL (0-1.0); Monocytes % (A) 4 %; Neutrophils # (A) 5.2 k/uL (1.3-7.7); Neutrophils % (A) 74 %; Platelet Count 290 k/uL (150-450); RBC 2.99 m/uL (4.30-5.90); RDW 17.1 % (11.5-15.5); WBC 6.9 k/uL (3.8-10.6)
[2022-12-20 11:30] LABS: ALT 18 U/L (4-49); AST 30 U/L (17-59); African American GFR (CKD) 54 (>60 ml/min/1.73 sqM); Albumin 3.3 g/dL (3.5-5.0); Alkaline Phosphatase 44 U/L (38-126); Anion Gap 7 mmol/L; Blood Urea Nitrogen 42 mg/dL (9-20); Carbon Dioxide 27 mmol/L (22-30); Chloride 102 mmol/L (98-107); Glucose 87 mg/dL (74-99); HGB 8.5 gm/dL (13.0-17.5); Magnesium 1.9 mg/dL (1.6-2.3); Non-African American GFR(CKD) 47 (>60 ml/min/1.73 sqM); Sodium 136 mmol/L (137-145); Total Bilirubin 0.6 mg/dL (0.2-1.3); Total Protein 6.2 g/dL (6.3-8.2)
[2022-12-20 11:34] LABS: INR 0.9 (<1.2); Partial Thromboplastin Time 26.6 sec (22.0-30.0); Prothrombin Time 10.5 sec (10.0-12.5)
[2022-12-20 11:38] LABS: NT-Pro-B-Type Natriuretic Pept 3100 pg/mL
[2022-12-20 11:45] LABS: Potassium 4.9 mmol/L (3.5-5.1)
--- NOTE | 2022-12-20 11:56 | XR ---
EXAMINATION TYPE: XR chest 2V DATE OF EXAM: 12/20/2022 COMPARISON: 11/07/2022 HISTORY: Shortness of breath TECHNIQUE: Frontal and lateral views of the chest are obtained. FINDINGS: Scattered senescent parenchymal changes noted. Hyperinflation compatible with COPD. Patchy basilar infiltrates and/or atelectasis with small effusions have increased since the prior zak dy. Heart size is stable. Mediastinal structures are stable and grossly unremarkable. No evidence for hilar prominence. Degenerative changes dorsal spine. IMPRESSION: 1. Patchy basilar infiltrates and/or atelectasis with small effusions have increased since the prior study.
[2022-12-20] MEDS ORDERED: PNEUMONIA PROTOCOL UTILIZED 1 EACH MISC PO PRN (12:57)
[2022-12-20] MEDS ORDERED: AZITHROMYCIN 500 MG in SODIUM CHLORIDE 0.9% 250 ML IVPB STA (12:57)
[2022-12-20] MEDS ORDERED: PIPERACILLIN-TAZOBACTAM 3.375 GM in SODIUM CHLORIDE 0.9% 100 ML IVPB STA (12:57)
[2022-12-20] MEDS ORDERED: ALBUTEROL NEBULIZED 2.5 MG/3 ML INHALATION PRN (12:57)
--- NOTE | 2022-12-20 13:08 | ED ---
General Adult HPI - General Chief complaint: Shortness of Breath Stated complaint: Upper Resp. Time Seen by Provider: 12/20/22 10:50 Source: patient, RN notes reviewed Mode of arrival: ambulatory Limitations: no limitations - History of Present Illness Initial comments: 77-year-old male presents emergency department tingling or shortness of breath. He's been having increasing shortness breath last 4-5 days. He states his productive cough he does have a history of COPD, lung cancer. Patient states that he also has a history of Pseudomonas lung infections. Patient states she does not feel well states that he does breathing treatments twice daily he still been having increasing shortness of breath. - Related Data Home Medications Medication Instructions Recorded Confirmed Montelukast Sodium [Singulair] 10 mg PO HS 01/24/14 11/06/22 Metoprolol Tartrate [Lopressor] 25 mg PO BID 07/25/16 11/06/22 L.acidoph,Paracasei, B.lactis 1 cap PO DAILY 09/01/18 11/06/22 [Probiotic] allopurinoL [Zyloprim] 100 mg PO HS 11/21/19 11/06/22 Albuterol Sulfate [Ventolin HFA] 2 puff INHALATION RT-QID PRN 10/21/21 11/06/22 Fluticasone/Umeclidin/Vilanter 1 puff INHALATION RT-DAILY 10/21/21 11/06/22 [Trelegy Ellipta 100-62.5-25] Cyanocobalamin (Vitamin B-12) 1,000 mcg PO DAILY 07/02/22 11/06/22 [Vitamin B-12] Famotidine [Pepcid] 20 mg PO DAILY 07/11/22 11/06/22 ALPRAZolam [Xanax] 0.5 mg PO HS 11/06/22 11/06/22 Albuterol Nebulized [Ventolin 2.5 mg INHALATION RT-TID 11/06/22 11/06/22 Nebulized] Azithromycin [Zithromax Z Pack] See Taper PO DAILY 11/06/22 11/06/22 Budesonide 0.5 mg INHALATION RT-BID 11/06/22 11/06/22 Cetirizine HCl [Zyrtec] 10 mg PO DAILY 11/06/22 11/06/22 Folic Acid 1 mg PO DAILY 11/06/22 11/06/22 Sodium Zirconium Cyclosilicate 10 gm PO DAILY@1400 11/06/22 11/06/22 [Lokelma] guaiFENesin [guaiFENesin ER] 600 mg PO BID 11/06/22 11/06/22 methylPREDNISolone [Medrol Dose See Taper PO DIRECTED 11/06/22 11/06/22 Pack] Previous Rx's Medication Instructions Recorded Sodium Bicarbonate Tab 650 mg PO BID #60 tab 07/04/22 Magnesium Oxide [Mag-Ox] 400 mg PO BID 30 Days #60 tab 11/10/22 Allergies Allergy/AdvReac Type Severity Reaction Status Date / Time cefepime Allergy SHUT DOWN Verified 12/20/22 10:48 KIDNEYS ether Allergy Anaphylaxis Verified 12/20/22 10:48 Iodinated Contrast Media Allergy PAST Verified 12/20/22 10:48 [Iodinated Contrast Media - HISTORY OF Oral and] KIDNEY PROBLEMS venom-honey bee Allergy Anaphylaxis Verified 12/20/22 10:48 sulfamethoxazole AdvReac states Verified 12/20/22 10:48 [From Bactrim] effects kidneys trimethoprim [From Bactrim] AdvReac states Verified 12/20/22 10:48 effects kidneys Review of Systems ROS Statement: Those systems with pertinent positive or pertinent negative responses have been documented in the HPI. ROS Other: All systems not noted in ROS Statement are negative. Past Medical History Past Medical History: Blood Disorder, Cancer, COPD, Deep Vein Thrombosis (DVT), GERD/Reflux, Hypertension, Pneumonia, Renal Disease Additional Past Medical History / Comment(s): hx of pseudomonus lung infection, uses CPAP not for sleep apnea, O2 prn 2l prn, diverticulits, Factor V Leiden, hx of bronchial silicone stent now removed, PICC line in past now removed, past hx dialysis for kidney damage, none currently, Stage 3 renal disease, Lung cancer - diagnosed and treated down in [place], Colostomy, hernia repair History of Any Multi-Drug Resistant Organisms: MRSA, Other MDRO Date of last positivie culture/infection: 08/30/21-MRSA MDRO Source:: Sputum-MDRO & MRSA Past Surgical History: Hernia Repair, Tonsillectomy Additional Past Surgical History / Comment(s): bronchoscopy, bronchial silicone stent, now removed, fatty tumor removed from chest area, COLONOSCOPY, alexandre cataract, hernia repair, ileostomy Past Anesthesia/Blood Transfusion Reactions: Previous Problems w/ Anesthesia Additional Past Anesthesia/Blood Transfusion Reaction / Comment(s): "as infant turned black and blue from ETHER". FACTOR V LEIDEN Past Psychological History: Anxiety Smoking Status: Former smoker Past Alcohol Use History: None Reported Past Drug Use History: None Reported - Past Family History Father Family Medical History: Cancer Additional Family Medical History / Comment(s): colon cancer Mother Family Medical History: Cancer Additional Family Medical History / Comment(s): leukemia General Exam Limitations: no limitations General appearance: alert, in no apparent distress Head exam: Present: atraumatic, normocephalic, normal inspection Eye exam: Present: normal appearance, PERRL, EOMI. Absent: scleral icterus, conjunctival injection, periorbital swelling Neck exam: Present: normal inspection. Absent: tenderness, meningismus, lymphadenopathy Respiratory exam: Present: wheezes, rhonchi. Absent: respiratory distress, rales, stridor Cardiovascular Exam: Present: regular rate, normal rhythm, normal heart sounds. Absent: systolic murmur, diastolic murmur, rubs, gallop, clicks GI/Abdominal exam: Present: soft, normal bowel sounds. Absent: distended, tenderness, guarding, rebound, rigid Course Vital Signs 12/20/22 12/20/22 12/20/22 10:45 11:09 11:35 Temperature 97.8 F Pulse Rate 71 93 95 Respiratory 22 Rate Blood Pressure 130/66 O2 Sat by Pulse 96 Oximetry EKG Findings - EKG Comments: EKG Findings:: EKG performed at 11:09 sinus rhythm with frequent PVCs with a rate of 64 AK 178 QRS 146 QT/QTC 431/444 - EKG Results: EKG: interpreted by ERMD Medical Decision Making - Medical Decision Making Was pt. sent in by a medical professional or institution (, PA, BIOLOGY LECTURER, urgent care, hospital, or shelter...) When possible be specific @ -No Did you speak to anyone other than the patient for history (EMS, parent, family, police, friend...)? What history was obtained from this source @ -No Did you review nursing and triage notes (agree or disagree)? Why? @ -I reviewed and agree with nursing and triage notes Were old charts reviewed (outside hosp., previous admission, EMS record, old EKG, old radiological studies, urgent care reports/EKG's, shelter records)? Report findings @ -Reviewed prior laboratory studies, cultures, chest x-rays Differential Diagnosis (chest pain, altered mental status, abdominal pain women, abdominal pain men, vaginal bleeding, weakness, fever, dyspnea, syncope, headache, dizziness, GI bleed, back pain, seizure, CVA, palpatations, mental health, musculoskeletal)? @ -nDifferential Dyspnea: Coronary syndrome, arrhythmia, tamponade, asthma, COPD, pulmonary embolism, pneumonia, pneumothorax, pulmonary effusion, anaphylaxis, diabetic ketoacidosis, flailed chest, pulmonary contusion, diaphragmatic rupture, anemia, neuromuscular, this is not meant to be an all-inclusive list. able EKG interpreted by me (3pts min.). @ -As above X-rays interpreted by me (1pt min.). @ -Chest x-ray shows bilateral pneumonia, COPD changes CT interpreted by me (1pt min.). @ -None done U/S interpreted by me (1pt. min.). @ -None done What testing was considered but not performed or refused? (CT, X-rays, U/S, labs)? Why? @ -None What meds were considered but not given or refused? Why? @ -None Did you discuss the management of the patient with other professionals (professionals i.e. , PA, BIOLOGY LECTURER, lab, RT, psych nurse, social worker school, clay stain mixer, teacher, photographic intelligence officer, showcase trimmer)? Give summary @ -[EMH for admission secondary to right basilar pneumonia, COPD with a history of pseudomonas infections Was smoking cessation discussed for >3mins.? @ -No Was critical care preformed (if so, how long)? @ -No Were there social determinants of health that impacted care today? How? (Homelessness, low income, unemployed, alcoholism, drug addiction, transportation, low edu. Level, literacy, decrease access to med. care, snf, rehab)? @ -No Was there de-escalation of care discussed even if they declined (Discuss DNR or withdrawal of care, Hospice)? DNR status @ -No What co-morbidities impacted this encounter? (DM, HTN, Smoking, COPD, CAD, Cancer, CVA, ARF, Chemo, Hep., AIDS, mental health diagnosis, sleep apnea, m orbid obesity)? @ -COPD Was patient admitted / discharged? Hospital course, mention meds given and route, prescriptions, significant lab abnormalities, going to OR and other pertinent info. @ -Admitted patient has a history of pseudomonas lung infection patient has bilateral pneumonia, COPD exacerbation patient was given Zosyn, azithromycin, Solu-Medrol, breathing treatments will be admitted with consult to pulmonary Undiagnosed new problem with uncertain prognosis? @ -No Drug Therapy requiring intensive monitoring for toxicity (Heparin, Nitro, Insulin, Cardizem)? @ -No Were any procedures done? @ -No Diagnosis/symptom? @ -Bilateral pneumonia, COPD exacerbation, anemia Acute, or Chronic, or Acute on Chronic? @ -Acute Uncomplicated (without systemic symptoms) or Complicated (systemic symptoms)? @ - complicated Side effects of treatment? @ -No Exacerbation, Progression, or Severe Exacerbation? @ -No Poses a threat to life or bodily function? How? (Chest pain, [place], [place], pneumonia, PE, COPD, DKA, ARF, appy, cholecystitis, CVA, Diverticulitis, Homicidal, Suicidal, threat to staff... and all critical care pts) @ -[Yes patient has pneumonia, respiratory failure is possible - Lab Data Result diagrams: 12/20/22 11:05 12/20/22 11:05 Lab Results 12/20/22 12/20/22 12/20/22 Range/Units 11:05 11:05 11:05 WBC 6.9 (3.8-10.6) k/uL RBC 2.99 L (4.30-5.90) m/uL Hgb 8.5 L D (13.0-17.5) gm/dL Hct 28.4 L (39.0-53.0) % MCV 95.1 (80.0-100.0) fL MCH 28.4 (25.0-35.0) pg MCHC 29.9 L (31.0-37.0) g/dL RDW 17.1 H (11.5-15.5) % Plt Count 290 (150-450) k/uL MPV 9.2 Neutrophils % 74 % Lymphocytes % 18 % Monocytes % 4 % Eosinophils % 1 % Basophils % 0 % Neutrophils # 5.2 (1.3-7.7) k/uL Lymphocytes # 1.3 (1.0-4.8) k/uL Monocytes # 0.3 (0-1.0) k/uL Eosinophils # 0.1 (0-0.7) k/uL Basophils # 0.0 (0-0.2) k/uL Hypochromasia Marked Anisocytosis Slight PT 10.5 (10.0-12.5) sec INR 0.9 (<1.2) APTT 26.6 (22.0-30.0) sec Sodium 136 L (137-145) mmol/L Potassium 4.9 (3.5-5.1) mmol/L Chloride 102 (98-107) mmol/L Carbon Dioxide 27 (22-30) mmol/L Anion Gap 7 mmol/L BUN 42 H (9-20) mg/dL Creatinine 1.42 H (0.66-1.25) mg/dL Est GFR (CKD-EPI)AfAm 54 (>60 ml/min/1.73 sqM) Est GFR (CKD-EPI)NonAf 47 (>60 ml/min/1.73 sqM) Glucose 87 (74-99) mg/dL Plasma Lactic Acid Fadi (0.7-2.0) mmol/L Calcium 9.0 (8.4-10.2) mg/dL Magnesium 1.9 (1.6-2.3) mg/dL Total Bilirubin 0.6 (0.2-1.3) mg/dL AST 30 (17-59) U/L ALT 18 (4-49) U/L Alkaline Phosphatase 44 (38-126) U/L Troponin I (0.000-0.034) ng/mL NT-Pro-B Natriuret Pep 3100 pg/mL Total Protein 6.2 L (6.3-8.2) g/dL Albumin 3.3 L (3.5-5.0) g/dL 12/20/22 12/20/22 Range/Units 11:05 11:05 WBC (3.8-10.6) k/uL RBC (4.30-5.90) m/uL Hgb (13.0-17.5) gm/dL Hct (39.0-53.0) % MCV (80.0-100.0) fL MCH (25.0-35.0) pg MCHC (31.0-37.0) g/dL RDW (11.5-15.5) % Plt Count (150-450) k/uL MPV Neutrophils % % Lymphocytes % % Monocytes % % Eosinophils % % Basophils % % Neutrophils # (1.3-7.7) k/uL Lymphocytes # (1.0-4.8) k/uL Monocytes # (0-1.0) k/uL Eosinophils # (0-0.7) k/uL Basophils # (0-0.2) k/uL Hypochromasia Anisocytosis PT (10.0-12.5) sec INR (<1.2) APTT (22.0-30.0) sec Sodium (137-145) mmol/L Potassium (3.5-5.1) mmol/L Chloride (98-107) mmol/L Carbon Dioxide (22-30) mmol/L Anion Gap mmol/L BUN (9-20) mg/dL Creatinine (0.66-1.25) mg/dL Est GFR (CKD-EPI)AfAm (>60 ml/min/1.73 sqM) Est GFR (CKD-EPI)NonAf (>60 ml/min/1.73 sqM) Glucose (74-99) mg/dL Plasma Lactic Acid Fadi 1.8 (0.7-2.0) mmol/L Calcium (8.4-10.2) mg/dL Magnesium (1.6-2.3) mg/dL Total Bilirubin (0.2-1.3) mg/dL AST (17-59) U/L ALT (4-49) U/L Alkaline Phosphatase (38-126) U/L Troponin I <0.012 (0.000-0.034) ng/mL NT-Pro-B Natriuret Pep pg/mL Total Protein (6.3-8.2) g/dL Albumin (3.5-5.0) g/dL Disposition Clinical Impression: Acute exacerbation of chronic obstructive airways disease, Bilateral pneumonia Disposition: ADMITTED IP TO THIS HOSP Condition: Fair Referrals: None,Stated [Primary Care Provider] - 1-2 days Time of Disposition: 12:40
[2022-12-20] MEDS: IPRATROPIUM-ALBUTEROL 3 ML NEB INHALATION SCH ×2 (14:44→20:26)
[2022-12-20] MEDS ORDERED: SODIUM ZIRCONIUM CYCLOSILICATE 10 GM PACKET PO ONE (22:45)
[2022-12-20] MEDS: allopurinoL 100 MG TAB PO SCH (23:23)
[2022-12-20] MEDS: METOPROLOL TARTRATE 25 MG TAB PO SCH (23:23)
[2022-12-20] MEDS: guaiFENesin 600 MG TABLET.ER PO SCH (23:23)
[2022-12-20] MEDS: DOXAZOSIN 4 MG TAB PO SCH (23:23)
[2022-12-20] MEDS: ALPRAZolam 0.5 MG TAB PO SCH (23:23)
[2022-12-20] MEDS: MAGNESIUM OXIDE 400 MG TAB PO SCH (23:23)
[2022-12-20] MEDS: MONTELUKAST 10 MG TAB PO SCH (23:23)
[2022-12-21] MEDS: PIPERACILLIN-TAZOBACTAM 3.375 GM in SODIUM CHLORIDE 0.9% 100 ML IVPB SCH ×3 (01:00→14:35)
[2022-12-21] MEDS: SODIUM BICARBONATE TAB 650 MG TAB PO SCH ×3 (01:00→22:27)
[2022-12-21] MEDS: HEPARIN SODIUM,PORCINE 5,000 UNIT/ML 1 ML VIAL SQ SCH ×3 (01:03→16:52)
--- NOTE | 2022-12-21 01:09 | P.HPIM ---
History of Present Illness H&P Date: 12/20/22 Chief Complaint: MARTA Patient is a 77-year-old male with a past medical history of COPD on home oxygen 2 L as needed, history of Pseudomonas pneumonia, history of bronchial stent placement/removal, CKD stage III, history of lung cancer, history of DVT, hypertension anxiety and prior history of smoking presents to ER with complaints of worsening shortness of breath. Patient has been having symptoms for the past 4 to 5 days and also having exertional dyspnea. Denies any fever or chills. No complaints of chest pain. Denies any leg swelling. No nausea vomiting abdomina l pain or diarrhea. Patient was discharged from hospital on 11/10/2022, admitted due to acute kidney injury and was seen by nephrology. Patient was hydrated and was also on bicarb drip. Patient underwent extensive lysis of adhesions, small bowel resection and repair of incisional hernia on 02/09/2022. Patient states that he had a reversal of ostomy and repair of incisional hernia done on November 14, 2022. On admission chest x-ray showed patchy bibasilar infiltrates/atelectasis with small effusions have increased since prior study. EKG showed sinus rhythm with frequent ventricular premature complexes. Laboratory data showed WBC 6.9 hemoglobin 8.9 platelets 290, sodium 136 potassium 4.9 chloride 102 bicarb is 27 BUN 42 and creatinine 1.42 Liver enzymes are not elevated. Troponin 0.012 and proBNP 3100 and albumin 3.3. Review of Systems Constitutional: Patient denies any fever or chills . no Generalized weakness. Abdomen: Patient denied any nausea or vomiting or abd. pain Cardiovascular: Patient denies any chest pain. Patient does have short of breath and exertional dyspnea. No palpitations. Respiratory: patient does have cough without sputum production. Positive for shortness of breath Neurologic: Patient denied any numbness or tingling headache. Musculoskeletal: Patient denies any complaints of joint swelling or deformity. Skin: Negative Psychiatric: Negative Endocrine: No heat or cold intolerance. No recent weight gain. Genitourinary: No dysuria or hematuria. All other 14 point ROS negative except the above Past Medical History Past Medical History: Blood Disorder, Cancer, COPD, Deep Vein Thrombosis (DVT), GERD/Reflux, Hypertension, Pneumonia, Renal Disease Additional Past Medical History / Comment(s): hx of pseudomonus lung infection, uses CPAP not for sleep apnea, O2 prn 2l prn, diverticulits, Factor V Leiden, hx of bronchial silicone stent now removed, PICC line in past now removed, past hx dialysis for kidney damage, none currently, Stage 3 renal disease, Lung cancer - diagnosed and treated down in [place], Colostomy, hernia repair History of Any Multi-Drug Resistant Organisms: MRSA, Other MDRO Date of last positivie culture/infection: 08/30/21-MRSA MDRO Source:: Sputum-MDRO & MRSA Past Surgical History: Hernia Repair, Tonsillectomy Additional Past Surgical History / Comment(s): bronchoscopy, bronchial silicone stent, now removed, fatty tumor removed from chest area, COLONOSCOPY, alexandre cataract, hernia repair, ileostomy Past Anesthesia/Blood Transfusion Reactions: Previous Problems w/ Anesthesia Additional Past Anesthesia/Blood Transfusion Reaction / Comment(s): "as infant turned black and blue from ETHER". FACTOR V LEIDEN Past Psychological History: Anxiety Smoking Status: Former smoker Past Alcohol Use History: None Reported Past Drug Use History: None Reported - Past Family History Father Family Medical History: Cancer Additional Family Medical History / Comment(s): colon cancer Mother Family Medical History: Cancer Additional Family Medical History / Comment(s): leukemia Medications and Allergies Home Medications Medication Instructions Recorded Confirmed Type Montelukast Sodium [Singulair] 10 mg PO HS 01/24/14 12/20/22 History Metoprolol Tartrate [Lopressor] 25 mg PO BID 07/25/16 12/20/22 History L.acidoph,Paracasei, B.lactis 1 cap PO DAILY 09/01/18 12/20/22 History [Probiotic] allopurinoL [Zyloprim] 100 mg PO HS 11/21/19 12/20/22 History Albuterol Sulfate [Ventolin HFA] 2 puff INHALATION RT-QID PRN 10/21/21 12/20/22 History Fluticasone/Umeclidin/Vilanter 1 puff INHALATION RT-DAILY 10/21/21 12/20/22 History [Trelegy Ellipta 100-62.5-25] Cyanocobalamin (Vitamin B-12) 1,000 mcg PO DAILY 07/02/22 12/20/22 History [Vitamin B-12] Sodium Bicarbonate Tab 650 mg PO BID #60 tab 07/04/22 12/20/22 Rx Famotidine [Pepcid] 20 mg PO DAILY 07/11/22 12/20/22 History ALPRAZolam [Xanax] 0.5 mg PO HS 11/06/22 12/20/22 History Albuterol Nebulized [Ventolin 2.5 mg INHALATION RT-TID 11/06/22 12/20/22 History Nebulized] Budesonide 0.5 mg INHALATION RT-BID 11/06/22 12/20/22 History Cetirizine HCl [Zyrtec] 10 mg PO DAILY 11/06/22 12/20/22 History Folic Acid 1 mg PO DAILY 11/06/22 12/20/22 History Sodium Zirconium Cyclosilicate 10 gm PO DAILY@1400 11/06/22 12/20/22 History [Lokelma] guaiFENesin [guaiFENesin ER] 600 mg PO BID 11/06/22 12/20/22 History Magnesium Oxide [Mag-Ox] 400 mg PO BID 30 Days #60 tab 11/10/22 12/20/22 Rx Aspirin EC [Ecotrin Low Dose] 81 mg PO DAILY 12/20/22 12/20/22 History Cholecalciferol [Vitamin D3 (25 50 mcg PO DAILY 12/20/22 12/20/22 History Mcg = 1000 Iu)] Doxazosin [Cardura] 4 mg PO HS 12/20/22 12/20/22 History polyethylene glycoL 3350 [Miralax] 17 gm PO DAILY 12/20/22 12/20/22 History Allergies Allergy/AdvReac Type Severity Reaction Status Date / Time cefepime Allergy SHUT DOWN Verified 12/20/22 13:37 KIDNEYS ether Allergy Anaphylaxis Verified 12/20/22 13:37 Iodinated Contrast Media Allergy PAST Verified 12/20/22 13:37 [Iodinated Contrast Media - HISTORY OF Oral and] KIDNEY PROBLEMS venom-honey bee Allergy Anaphylaxis Verified 12/20/22 13:37 sulfamethoxazole AdvReac states Verified 12/20/22 13:37 [From Bactrim] effects kidneys trimethoprim [From Bactrim] AdvReac states Verified 12/20/22 13:37 effects kidneys Physical Exam Vitals: Vital Signs Temp Pulse Resp BP Pulse Ox 12/20/22 20:39 78 12/20/22 20:26 80 12/20/22 19:30 97.2 F L 64 15 131/67 97 12/20/22 16:53 85 18 94/69 98 12/20/22 14:56 87 12/20/22 14:44 86 12/20/22 14:30 80 18 117/66 98 12/20/22 11:35 95 12/20/22 11:09 93 12/20/22 10:45 97.8 F 71 22 130/66 96 Intake and Output 12/20/22 12/20/22 12/20/22 06:59 14:59 22:59 Other: Weight 62.142 kg PHYSICAL EXAMINATION: Patient is lying in the bed comfortably, no acute distress, awake alert and oriented.. HEENT: Normocephalic. Neck is supple. Pupils reactive. Nostrils clear. Oral cavity is moist. Neck reveals no JVD, carotid bruits, or thyromegaly. CHEST EXAMINATION: Trachea is central. Symmetrical expansion. Bibasilar diminished sounds and mild expiratory wheeze. Nonlabored breathing.. CARDIAC: Normal S1, S2 with no gallops. No murmurs ABDOMEN: Soft. Bowel sounds present. Nontender. No organomegaly. No abdominal bruits. Extremities: reveal no edema. No clubbing or cyanosis Neurologically awake, alert, oriented x3 with well-coordinated movements. No focal deficits noted Skin: No rash or skin lesions. Psychiatric: Coperative. Nonsuicidal, Musculoskeletal: No joint swelling or deformity. Normal range of motion. Results CBC & Chem 7: 12/20/22 11:05 12/20/22 11:05 Labs: Abnormal Lab Results - Last 24 Hours (Table) 12/20/22 12/20/22 Range/Units 11:05 11:05 RBC 2.99 L (4.30-5.90) m/uL Hgb 8.5 L D (13.0-17.5) gm/dL Hct 28.4 L (39.0-53.0) % MCHC 29.9 L (31.0-37.0) g/dL RDW 17.1 H (11.5-15.5) % Sodium 136 L (137-145) mmol/L BUN 42 H (9-20) mg/dL Creatinine 1.42 H (0.66-1.25) mg/dL Total Protein 6.2 L (6.3-8.2) g/dL Albumin 3.3 L (3.5-5.0) g/dL Thrombosis Risk Factor Assmnt - DVT/VTE Prophylaxis DVT/VTE Prophylaxis: Pharmacologic Prophylaxis ordered Assessment and Plan Assessment: Bibasilar infiltrates/atelectasis with small pleural effusions. Possible pneumonia versus acute CHF. EF not known. Elevated proBNP level Chronic kidney disease stage III baseline creatinine level1.4-1.6. Recent history of reversal of colostomy and umbilical hernia repair on 11/14/2022. Prior history of Pseudomonas pneumonia Right upper lobe pulmonary nodule. Patient had PET scan and was treated with SBRT History of colonic perforation requiring colectomy and colostomy History of small bowel obstruction Obstructive sleep apnea not on CPAP COPD on home oxygen 2 L as needed at home History of DVT Hypertension Anxiety Prior history of smoking Factor V Leyden DVT prophylaxis heparin subcu Plan: Patient will be continued on antibiotics Zosyn and azithromycin., Due to prior history of Pseudomonas pneumonia. Follow-up blood cultures.Procalcitonin level was ordered. Patient was given IV Solu-Medrol 125 mg x 1 in the ER. Continue with DuoNebs and Breo inhaler. Continue with oxygen supplementation. Patient will be given 1 dose of IV Lasix 20 mg x 1 and 2D echocardiogram was ordered. Continue with abdominal incisional wound care. Pulmonary was consulted for evaluation. Follow-up renal function. Prognosis is guarded with multiple active problems and comorbid conditions. Time with Patient: Greater than 30
--- NOTE | 2022-12-21 06:32 | XR ---
EXAMINATION TYPE: XR chest 2V DATE OF EXAM: 12/21/2022 COMPARISON: Chest x-ray from one day earlier HISTORY: Pneumonia. TECHNIQUE: Frontal and lateral views of the chest are obtained. FINDINGS: There is chronic parenchymal changes with small to moderate size bilateral pleural effusio ns and associated bibasilar opacities redemonstrated. The cardiac silhouette size is stable and uppe r limits of normal. The osseous structures are intact. IMPRESSION: Persistent small bilateral pleural effusions with associated bibasilar opacities favorin g atelectasis redemonstrated. Correlate for fluid overload state. No significant change from one day earlier.
[2022-12-21] MEDS ORDERED: FUROSEMIDE 10 MG/ML 2 ML VIAL IV ONE (08:00)
[2022-12-21] MEDS ORDERED: NON FORMULARY DRUG (Fluticasone/Umeclidin/Vilanter [Trelegy Ellipta 100-62.5-25] 1 EACH Bl INHALATION SCH (08:00)
[2022-12-21] MEDS: METOPROLOL TARTRATE 25 MG TAB PO SCH ×2 (08:24→22:28)
[2022-12-21] MEDS: allopurinoL 100 MG TAB PO SCH ×2 (08:24→22:28)
[2022-12-21] MEDS: MAGNESIUM OXIDE 400 MG TAB PO SCH ×2 (08:24→22:27)
[2022-12-21] MEDS: guaiFENesin 600 MG TABLET.ER PO SCH ×2 (08:24→22:28)
[2022-12-21] MEDS: BUDESONIDE 0.5 MG/2 ML NEBU INHALATION SCH ×2 (08:52→21:26)
[2022-12-21] MEDS: IPRATROPIUM-ALBUTEROL 3 ML NEB INHALATION SCH ×4 (08:52→21:26)
[2022-12-21] MEDS ORDERED: polyethylene glycoL 3350 17 GM POWD.PACK PO PRN (09:00)
[2022-12-21] MEDS ORDERED: AZITHROMYCIN 500 MG in SODIUM CHLORIDE 0.9% 250 ML IVPB SCH ×2 (09:00→12:00)
[2022-12-21 09:04] LABS: Basophils # (A) 0 X 10*3/uL (0.00-0.10); Basophils % (A) 0 %; Eosinophils # (A) 0 X 10*3/uL (0.04-0.35); Eosinophils % (A) 0 %; HCT 25.3 % (39.6-50.0); HGB 7.5 d/dL (13.0-17.0); Lymphocytes # (A) 0.46 X 10*3/uL (0.90-5.00); Lymphocytes % (A) 10.3 %; MCH 28.3 pg (27.0-32.0); MCHC 29.6 d/dL (32.0-37.0); MCV 95.5 FL (80.0-97.0); Monocytes # (A) 0.07 X 10*3/uL (0.20-1.00); Monocytes % (A) 1.6 %; NRBC Per 100 WBC 0 X 10*3/uL (0.00-0.01); Neutrophils # (A) 3.92 X 10*3/uL (1.80-7.70); Neutrophils % (A) 87.7 %; Platelet Count 298 X 10*3/uL (140-440); RBC 2.65 X 10*6/uL (4.40-5.60); RDW 17.5 % (11.5-14.5); WBC 4.47 X 10*3/uL (4.50-10.00)
[2022-12-21 09:21] LABS: BUN/Creat Ratio 26.47 Ratio (12.00-20.00); Calcium 9.1 mg/dL (8.7-10.3); Carbon Dioxide 27.3 mmol/L (21.6-31.8); Chloride 104 mmol/L (96-109); Glucose 158 mg/dL (70-110); Sodium 142 mmol/L (135-145)
--- NOTE | 2022-12-21 14:32 | P.CNPUL ---
History of Present Illness Consult date: 12/21/22 Requesting physician: El E Ariella Reason for consult: dyspnea, cough Chief complaint: Shortness of breath, cough, congestion History of present illness: This is a pleasant 77-year-old male patient with a known history of chronic kidney disease, post colectomy secondary to perforation and subsequent colostomy with recent reversal, left lower extremity DVT, factor V laden mutation, tracheobronchial malacia, moderate chronic obstructive pulmonary disease, solitary lung nodule status post radiation, history of frequent MRSA and pseudomonas pneumonias. He presented here to the emergency room yesterday after a 2 to three-day history of increasing shortness of breath, cough and congestion. X-ray shows patchy basilar infiltrates and/or atelectasis with small effusions. White count 4.4. Hemoglobin 7.5. Platelets 298. Sodium 142. Potassium 5.0. Bicarb 27. BUN 45. Creatinine 1.7. Glucose 158. ProBNP 3100. Pro-calcitonin 0.40. He is seen today in consultation on the regular [facility] floor. He is up ambulating in his room. Awake and alert in no acute distress. Maintaining O2 saturations in the 90s on 2 L/m per nasal cannula. He is afebrile. Hemodynamically stable. Review of Systems REVIEW OF SYSTEMS: CONSTITUTIONAL: Denies any recent significant weight loss or weight gain. EYES: Denies change in vision. EARS, NOSE, MOUTH, THROAT: Denies headaches, denies sore throat. CARDIOVASCULAR: Denies chest pain, palpitations or syncopal episodes. RESPIRATORY: Positive for shortness of breath, cough, congestion no hemoptysis. GASTROINTESTINAL: Denies change in appetite, denies abdominal pain GENITOURINARY: Denies hematuria, denies infections. MUSKULOSKELETAL: Denies pain, denies swelling. INTEGUMENTARY: Denies rash, denies eczema. NEUROLOGICAL: Denies recent memory loss, no recent seizure activity. PSYCHIATRIC: Denies anxiety, denies depression. HEMATOLOGIC/LYMPHATIC: Denies anemia, denies enlarged lymph nodes. Past Medical History Past Medical History: Blood Disorder, Cancer, COPD, Deep Vein Thrombosis (DVT), GERD/Reflux, Hypertension, Pneumonia, Renal Disease Additional Past Medical History / Comment(s): hx of pseudomonus lung infection, uses CPAP not for sleep apnea, O2 prn 2l prn, diverticulits, Factor V Leiden, hx of bronchial silicone stent now removed, PICC line in past now removed, past hx dialysis for kidney damage, none currently, Stage 3 renal disease, Lung cancer - diagnosed and treated down in [place], colostomy with reversal, hernia repair History of Any Multi-Drug Resistant Organisms: MRSA, Other MDRO Date of last positivie culture/infection: 08/30/21-MRSA MDRO Source:: Sputum-MDRO & MRSA Past Surgical History: Hernia Repair, Tonsillectomy Additional Past Surgical History / Comment(s): bronchoscopy, bronchial silicone stent, now removed, fatty tumor removed from chest area, COLONOSCOPY, alexandre cataract, hernia repair, ileostomy/colostomy reversal Past Anesthesia/Blood Transfusion Reactions: Previous Problems w/ Anesthesia Additional Past Anesthesia/Blood Transfusion Reaction / Comment(s): "as turned black and blue from ETHER". FACTOR V LEIDEN Past Psychological History: Anxiety Smoking Status: Former smoker Past Alcohol Use History: None Reported Additional Past Alcohol Use History / Comment(s): STARTED SMOKING AT AGE 14, QUIT SMOKING 2012 Past Drug Use History: None Reported - Past Family History Father Family Medical History: Cancer Additional Family Medical History / Comment(s): colon cancer Mother Family Medical History: Cancer Additional Family Medical History / Comment(s): leukemia Medications and Allergies Home Medications Medication Instructions Recorded Confirmed Type Montelukast Sodium [Singulair] 10 mg PO HS 01/24/14 12/20/22 History Metoprolol Tartrate [Lopressor] 25 mg PO BID 07/25/16 12/20/22 History L.acidoph,Paracasei, B.lactis 1 cap PO DAILY 09/01/18 12/20/22 History [Probiotic] allopurinoL [Zyloprim] 100 mg PO HS 11/21/19 12/20/22 History Albuterol Sulfate [Ventolin HFA] 2 puff INHALATION RT-QID PRN 10/21/21 12/20/22 History Fluticasone/Umeclidin/Vilanter 1 puff INHALATION RT-DAILY 10/21/21 12/20/22 History [Trelegy Ellipta 100-62.5-25] Cyanocobalamin (Vitamin B-12) 1,000 mcg PO DAILY 07/02/22 12/20/22 History [Vitamin B-12] Sodium Bicarbonate Tab 650 mg PO BID #60 tab 04/28/23 10/14/23 Rx Famotidine [Pepcid] 20 mg PO DAILY 07/11/22 12/20/22 History ALPRAZolam [Xanax] 0.5 mg PO HS 11/06/22 12/20/22 History Albuterol Nebulized [Ventolin 2.5 mg INHALATION RT-TID 11/06/22 12/20/22 History Nebulized] Budesonide 0.5 mg INHALATION RT-BID 11/06/22 12/20/22 History Cetirizine HCl [Zyrtec] 10 mg PO DAILY 11/06/22 12/20/22 History Folic Acid 1 mg PO DAILY 11/06/22 12/20/22 History Sodium Zirconium Cyclosilicate 10 gm PO DAILY@1400 11/06/22 12/20/22 History [Lokelma] guaiFENesin [guaiFENesin ER] 600 mg PO BID 11/06/22 12/20/22 History Magnesium Oxide [Mag-Ox] 400 mg PO BID 30 Days #60 tab 11/10/22 12/20/22 Rx Aspirin EC [Ecotrin Low Dose] 81 mg PO DAILY 12/20/22 12/20/22 History Cholecalciferol [Vitamin D3 (25 50 mcg PO DAILY 12/20/22 12/20/22 History Mcg = 1000 Iu)] Doxazosin [Cardura] 4 mg PO HS 12/20/22 12/20/22 History polyethylene glycoL 3350 [Miralax] 17 gm PO DAILY 12/20/22 12/20/22 History Allergies Allergy/AdvReac Type Severity Reaction Status Date / Time cefepime Allergy SHUT DOWN Verified 12/20/22 13:37 KIDNEYS ether Allergy Anaphylaxis Verified 12/20/22 13:37 Iodinated Contrast Media Allergy PAST Verified 12/20/22 13:37 [Iodinated Contrast Media - HISTORY OF Oral and] KIDNEY PROBLEMS venom-honey bee Allergy Anaphylaxis Verified 12/20/22 13:37 sulfamethoxazole AdvReac states Verified 12/20/22 13:37 [From Bactrim] effects kidneys trimethoprim [From Bactrim] AdvReac states Verified 12/20/22 13:37 effects kidneys Physical Exam Vitals: Vital Signs Temp Pulse Pulse Resp BP BP Pulse Ox 12/21/22 13:19 76 12/21/22 13:07 72 12/21/22 12:50 97.5 F L 72 17 114/59 96 12/21/22 09:13 84 12/21/22 08:54 80 12/21/22 07:45 80 19 131/78 94 L 12/21/22 07:28 96.8 F L 59 L 19 106/54 98 12/21/22 05:51 67 17 108/54 98 12/20/22 23:20 97.3 F L 85 17 111/75 97 12/20/22 20:39 78 12/20/22 20:26 80 12/20/22 19:30 97.2 F L 64 15 131/67 97 12/20/22 16:53 85 18 94/69 98 12/20/22 14:56 87 12/20/22 14:44 86 12/20/22 14:30 80 18 117/66 98 Intake and Output 12/20/22 12/21/22 12/21/22 22:59 06:59 14:59 Intake Total 350 Output Total 225 Balance -225 350 Intake: Intake, IV Titration 350 Amount Azithromycin 500 mg In 250 Sodium Chloride 0.9% 250 ml @ 250 mls/hr IVPB DAILY@1200 [facility] Rx#: [id number] Piperacillin-Tazobactam 3 100 .375 gm In Sodium Chloride 0.9% 100 ml @ 25 mls/hr IVPB Q8HR [facility] Rx# :[id number] Output: Urine 225 Other: # Voids 2 Weight 62.142 kg GENERAL EXAM: Alert, active, 77-year-old male, on 2 L nasal cannula, comfortable in no apparent distress. HEAD: Normocephalic. EYES: Normal reaction of pupils, equal size. NOSE: Clear with pink turbinates. THROAT: No erythema or exudates. NECK: No masses, no JVD. CHEST: No chest wall deformity. LUNGS: Equal air entry with scattered rhonchi. CVS: S1 and S2 normal with no audible murmur, regular rhythm. ABDOMEN: Dressing/binder in place. No hepatosplenomegaly, normal bowel sounds, no guarding or rigidity. SPINE: No scoliosis or deformity SKIN: No rashes CENTRAL NERVOUS SYSTEM: No focal deficits, tone is normal in all 4 extremities. EXTREMITIES: There is no peripheral edema. No clubbing, no cyanosis. Peripheral pulses are intact. Results - Laboratory Findings CBC and BMP: 12/21/22 04:17 12/21/22 04:17 PT/INR, D-dimer PT 10.5 sec (10.0-12.5) 12/20/22 11:05 INR 0.9 (<1.2) 12/20/22 11:05 Abnormal lab findings: Abnormal Labs 12/20/22 12/20/22 12/21/22 11:05 11:05 04:17 WBC 4.47 L RBC 2.99 L 2.65 L Hgb 8.5 L D 7.5 L Hct 28.4 L 25.3 L MCHC 29.9 L 29.6 L RDW 17.1 H 17.5 H Lymphocytes # 0.46 L Monocytes # 0.07 L Eosinophils # 0 L Sodium 136 L BUN 42 H Creatinine 1.42 H Est GFR (CKD-EPI) BUN/Creatinine Ratio Glucose Total Protein 6.2 L Albumin 3.3 L Procalcitonin 12/21/22 12/21/22 04:17 04:17 WBC RBC Hgb Hct MCHC RDW Lymphocytes # Monocytes # Eosinophils # Sodium BUN 45.0 H Creatinine 1.7 H Est GFR (CKD-EPI) 40 L BUN/Creatinine Ratio 26.47 H Glucose 158 H Total Protein Albumin Procalcitonin 0.40 H - Diagnostic Findings Chest x-ray: image reviewed Assessment and Plan Assessment: Acute hypoxic respiratory failure secondary to acute exacerbation of chronic obstructive pulmonary disease with bibasilar opacities favoring atelectasis Previous history of multiple pneumonias from pseudomonas, MRSA, E. coli History of right upper lobe pulmonary nodule with previous radiation, being monitored in the outpatient setting History of perforated colon requiring colectomy and colostomy and subsequent recent reversal Chronic kidney disease Tracheobronchomalacia Factor V Leiden mutation Hypertension History of anxiety History of dysphagia Plan: The patient was seen and evaluated Chest x-rays, labs and medications reviewed ProCalcitonin 0.44 Continue Zosyn, bronchodilators Heparin for DVT prophylaxis Titrate the FiO2 as tolerated We will continue to follow and make further recommendations based on his clinical status I have personally seen and examined the patient, performed the documentation and the assessment and plan as written. Number of minutes spent on the visit: 20.
[2022-12-21] MEDS: FAMOTIDINE 20 MG TAB PO SCH (14:34)
[2022-12-21] MEDS: polyethylene glycoL 3350 17 GM POWD.PACK PO SCH (14:34)
[2022-12-21] MEDS: FOLIC ACID 1 MG TAB PO SCH (14:34)
[2022-12-21] MEDS: SODIUM ZIRCONIUM CYCLOSILICATE 10 GM PACKET PO SCH (14:47)
--- NOTE | 2022-12-21 19:04 | P.PN ---
Progress Note - Text Progress Note Date: 12/21/22 Chief Complaint: MARTA Patient is a 77-year-old male with a past medical history of COPD on home oxygen 2 L as needed, history of Pseudomonas pneumonia, history of bronchial stent placement/removal, CKD stage III, history of lung cancer, history of DVT, hypertension anxiety and prior history of smoking presents to ER with complaints of worsening shortness of breath. Patient has been having symptoms for the past 4 to 5 days and also having exertional dyspnea. Denies any fever or chills. No complaints of chest pain. Denies any leg swelling. No nausea vomiting abdominal pain or diarrhea. Patient was discharged from hospital on 11/10/2022, admitted due to acute kidney injury and was seen by nephrology. Patient was hydrated and was also on bicarb drip. Patient underwent extensive lysis of adhesions, small bowel resection and repair of incisional hernia on 02/09/2022. Patient states that he had a reversal of ostomy and repair of incisional hernia done on November 14, 2022. On admission chest x-ray showed patchy bibasilar infiltrates/atelectasis with small effusions have increased since prior study. EKG showed sinus rhythm with frequent ventricular premature complexes. Laboratory data showed WBC 6.9 hemoglobin 8.9 platelets 290, sodium 136 potassium 4.9 chloride 102 bicarb is 27 BUN 42 and creatinine 1.42 Liver enzymes are not elevated. Troponin 0.012 and proBNP 3100 and albumin 3.3. 12/21/2022: Sitting at the edge of the bed. Some cough. Does have 2 L of oxygen and at home. On antibiotics bronchodilators. Did tolerate some diet. Active Medications Albuterol Sulfate (Albuterol Nebulized 2.5 Mg/3 Ml) 2.5 mg INHALATION RT-Q2H PRN PRN Reason: Shortness Of Breath Or Wheezing Albuterol/Ipratropium (Ipratropium-Albuterol 3 Ml Neb) 3 ml INHALATION RT-QID [facility] Last Admin: 12/21/22 16:49 Dose: 3 ml Allopurinol (Allopurinol 100 Mg Tab) 100 mg PO HS [facility] Alprazolam (Alprazolam 0.5 Mg Tab) 0.5 mg PO HS [facility] Last Admin: 12/20/22 23:23 Dose: 0.5 mg Aspirin (Aspirin 81 Mg) 81 mg PO DAILY [facility] Budesonide (Budesonide 0.5 Mg/2 Ml Nebu) 0.5 mg INHALATION RT-BID [facility] Last Admin: 12/21/22 08:52 Dose: 0.5 mg Cyanocobalamin (Cyanocobalamin 500 Mcg Tab) 1,000 mcg PO DAILY [facility] Doxazosin Mesylate (Doxazosin 4 Mg Tab) 4 mg PO HS [facility] Last Admin: 12/20/22 23:23 Dose: 4 mg Famotidine (Famotidine 20 Mg Tab) 20 mg PO DAILY [facility] Last Admin: 12/21/22 14:34 Dose: 20 mg Folic Acid (Folic Acid 1 Mg Tab) 1 mg PO DAILY [facility] Last Admin: 12/21/22 14:34 Dose: 1 mg Guaifenesin (Guaifenesin 600 Mg Tablet.Er) 600 mg PO Q12HR [facility] Last Admin: 12/21/22 08:24 Dose: 600 mg Heparin Sodium (Porcine) (Heparin Sodium,Porcine 5,000 Unit/Ml 1 Ml Vial) 5,000 unit SQ Q8HR [facility] Last Admin: 12/21/22 16:52 Dose: 5,000 unit Piperacillin Sod/Tazobactam (Sod 3.375 gm/ Sodium Chloride) 100 mls @ 25 mls/hr IVPB Q8HR [facility]; Protocol Stop: 12/25/22 00:01 Last Admin: 12/21/22 14:35 Dose: 25 mls/hr Magnesium Oxide (Magnesium Oxide 400 Mg Tab) 400 mg PO BID [facility] Last Admin: 12/21/22 08:24 Dose: 400 mg Metoprolol Tartrate (Metoprolol Tartrate 25 Mg Tab) 25 mg PO BID [facility] Last Admin: 12/21/22 08:24 Dose: 25 mg Miscellaneous Information (Pneumonia Protocol Utilized 1 Each Misc) 1 each PO ONCE PRN PRN Reason: Per Protocol Montelukast Sodium (Montelukast 10 Mg Tab) 10 mg PO HS [facility] Last Admin: 12/20/22 23:23 Dose: 10 mg Polyethylene Glycol (Polyethylene Glycol 3350 17 Gm Powd.Pack) 17 gm PO DAILY [facility] Last Admin: 12/21/22 14:34 Dose: 17 gm Sodium Bicarbonate (Sodium Bicarbonate Tab 650 Mg Tab) 650 mg PO BID [facility] Last Admin: 12/21/22 08:24 Dose: 650 mg Sodium Zirconium Cyclosilicate (Sodium Zirconium Cyclosilicate 10 Gm Packet) 10 gm PO DAILY@1400 [facility] Last Admin: 12/21/22 14:47 Dose: 10 gm Past Medical History Past Medical History: Blood Disorder, Cancer, COPD, Deep Vein Thrombosis (DVT), GERD/Reflux, Hypertension, Pneumonia, Renal Disease Additional Past Medical History / Comment(s): hx of pseudomonus lung infection, uses CPAP not for sleep apnea, O2 prn 2l prn, diverticulits, Factor V Leiden, hx of bronchial silicone stent now removed, PICC line in past now removed, past hx dialysis for kidney damage, none currently, Stage 3 renal disease, Lung cancer - diagnosed and treated down in [place], Colostomy, hernia repair History of Any Multi-Drug Resistant Organisms: MRSA, Other MDRO Date of last positivie culture/infection: 08/30/21-MRSA MDRO Source:: Sputum-MDRO & MRSA Past Surgical History: Hernia Repair, Tonsillectomy Additional Past Surgical History / Comment(s): bronchoscopy, bronchial silicone stent, now removed, fatty tumor removed from chest area, COLONOSCOPY, alexandre cataract, hernia repair, ileostomy Past Anesthesia/Blood Transfusion Reactions: Previous Problems w/ Anesthesia Additional Past Anesthesia/Blood Transfusion Reaction / Comment(s): "as turned black and blue from ETHER". FACTOR V LEIDEN Past Psychological History: Anxiety Smoking Status: Former smoker Past Alcohol Use History: None Reported Past Drug Use History: None Reported - Past Family History Father Family Medical History: Cancer Additional Family Medical History / Comment(s): colon cancer Mother Family Medical History: Cancer Additional Family Medical History / Comment(s): leukemia On examination: VITAL SIGNS: [97.5, 72, 17, 156% on 2 L] GENERAL APPEARANCE: Sitting at the edge of the bed, using nebulizer HEENT: Normal external appearance of nose and ear. Oral cavity normal EYES: Pupils equal. Conjunctiva normal. NECK: JVD not raised. Mass not palpable. RESPIRATORY: Respiratory effort increase. His breath sounds or wheezing CARDIOVASCULAR: First and second sounds normal. No edema. ABDOMEN: Soft. Liver and spleen not palpable. No tenderness. No mass palpable. PSYCHIATRY: Alert and oriented x3. Mood and affect normal. INVESTIGATIONS, reviewed in the clinical context: Chest x-ray film personally reviewed by me-small bilateral effusion. Possible basis this letter opacities. December 21: White count 4.4 hemoglobin 7.5 platelets 298 potassium 5. 45 crit and 1.7. Procalcitonin 0.40 Prior labs: 08/06/2022: Creatinine 1.7 11/07/2022: Hemoglobin 10.1 Assessment and plan: Bibasilar infiltrates/atelectasis with small pleural effusions. Possible pneumonia versus acute CHF. EF not known. -IV Zosyn and azithromycin. Acute hypoxic respiratory failure -On oxygen Elevated proBNP level Chronic kidney disease stage III baseline creatinine level -Creatinine 1.7 on July 2022 Suspect anemia of chronic kidney disease Check iron stores, B12, folate Chronic hyperkalemia from underlying CK D -Continue Lokelma Recent history of reversal of colostomy and umbilical hernia repair on 11/14/2022. -On laxative at home Prior history of Pseudomonas pneumonia Right upper lobe pulmonary nodule. Patient had PET scan and was treated with SBRT History of colonic perforation requiring colectomy and colostomy History of small bowel obstruction Obstructive sleep apnea not on CPAP COPD in a previous smoker -DuoNeb Chronic hypoxic respiratory failure -on home oxygen 2 L History of DVT Essential Hypertension -Lopressor 25 mg twice a day Anxiety Prior history of smoking Factor V Leyden DVT prophylaxis heparin subcu Discussed with patient
[2022-12-21] MEDS: DOXAZOSIN 4 MG TAB PO SCH (22:28)
[2022-12-21] MEDS: MONTELUKAST 10 MG TAB PO SCH (22:28)
[2022-12-21] MEDS: ALPRAZolam 0.5 MG TAB PO SCH (22:28)
[2022-12-22] MEDS: PIPERACILLIN-TAZOBACTAM 3.375 GM in SODIUM CHLORIDE 0.9% 100 ML IVPB SCH ×3 (00:04→17:26)
[2022-12-22] MEDS: HEPARIN SODIUM,PORCINE 5,000 UNIT/ML 1 ML VIAL SQ SCH ×3 (00:06→17:25)
[2022-12-22] MEDS: SODIUM BICARBONATE TAB 650 MG TAB PO SCH ×2 (08:59→20:38)
[2022-12-22] MEDS: FAMOTIDINE 20 MG TAB PO SCH (08:59)
[2022-12-22] MEDS: polyethylene glycoL 3350 17 GM POWD.PACK PO SCH (08:59)
[2022-12-22] MEDS: METOPROLOL TARTRATE 25 MG TAB PO SCH ×2 (08:59→20:38)
[2022-12-22] MEDS: MAGNESIUM OXIDE 400 MG TAB PO SCH ×2 (08:59→20:38)
[2022-12-22] MEDS: ASPIRIN 81 MG PO SCH (08:59)
[2022-12-22] MEDS: CYANOCOBALAMIN 500 MCG TAB PO SCH (08:59)
[2022-12-22] MEDS: guaiFENesin 600 MG TABLET.ER PO SCH ×2 (08:59→20:38)
[2022-12-22] MEDS: FOLIC ACID 1 MG TAB PO SCH (08:59)
[2022-12-22] MEDS: IPRATROPIUM-ALBUTEROL 3 ML NEB INHALATION SCH ×4 (09:21→21:01)
[2022-12-22] MEDS: BUDESONIDE 0.5 MG/2 ML NEBU INHALATION SCH ×2 (09:21→21:01)
[2022-12-22 11:52] LABS: % Iron Saturation 36.7 (15.00-50.00)
--- NOTE | 2022-12-22 12:50 | P.CONS ---
History of Present Illness - Reason for Consult Consult date: 12/22/22 wound care - History of Present Illness This is a 77-year-old patient being seen for a nonhealing ulceration to the abdomen. Patient had surgery at the end of November resulting in an ulceration. Patient has a midline ulceration measuring approximately 4.5 x 0.2 x 0.1 cm with granulation throughout the wound that no tunneling or undermining noted. Patient also has a 1 x 1 x 0.1 cm ulceration to the right lower quadra nt. Patient has been utilizing triple antibiotic ointment and Xeroform to both ulcerations. He was under care with his surgeon. With homecare changing the dressings. Review Of Systems: Constitutional: No fever, no chills, no night sweats. No weight change. No weakness, fatigue or lethargy. No daytime sleepiness. Integumentary:reports wounds, no lesions. No rash or pruritus. No unusual bru ising. No change in hair or nails. Physical exam: General Appearance: Alert, cooperative, no distress, appears stated age. Skin: See HPI all other Skin color, texture, tugor normal, no rashes or lesions. Neurologic: Alert oriented x3 Assessment: 1. Nonhealing ulceration with fatty layer exposure other site Plan: 1. Apply collagen silver saline moistened gauze and border foam to the site milka hernández Thursday. Thank you for the consultation any questions to contact the wound care center DNP note has been reviewed and discussed with Dr. Turner and the impression and plan of care has been directed as dictated. Past Medical History Past Medical History: Blood Disorder, Cancer, COPD, Deep Vein Thrombosis (DVT), GERD/Reflux, Hypertension, Pneumonia, Renal Disease Additional Past Medical History / Comment(s): hx of pseudomonus lung infection, uses CPAP not for sleep apnea, O2 prn 2l prn, diverticulits, Factor V Leiden, hx of bronchial silicone stent now removed, PICC line in past now removed, past hx dialysis for kidney damage, none currently, Stage 3 renal disease, Lung cancer - diagnosed and treated down in [place], colostomy with reversal, hernia repair History of Any Multi-Drug Resistant Organisms: MRSA, Other MDRO Year Discovered:: 08/30/21-MRSA MDRO Source:: Sputum-MDRO & MRSA Past Surgical History: Hernia Repair, Tonsillectomy Additional Past Surgical History / Comment(s): bronchoscopy, bronchial silicone stent, now removed, fatty tumor removed from chest area, COLONOSCOPY, alexandre cataract, hernia repair, ileostomy/colostomy reversal Past Anesthesia/Blood Transfusion Reactions: Previous Problems w/ Anesthesia Additional Past Anesthesia/Blood Transfusion Reaction / Comm: "as infant turned black and blue from ETHER". FACTOR V LEIDEN Past Psychological History: Anxiety Smoking Status: Former smoker Past Alcohol Use History: None Reported Additional Past Alcohol Use History / Comment(s): STARTED SMOKING AT AGE 14, QUIT SMOKING 2012 Past Drug Use History: None Reported - Past Family History Father Family Medical History: Cancer Additional Family Medical History / Comment(s): colon cancer Mother Family Medical History: Cancer Additional Family Medical History / Comment(s): leukemia Medications and Allergies Home Medications Medication Instructions Recorded Confirmed Type Montelukast Sodium [Singulair] 10 mg PO HS 01/24/14 12/20/22 History Metoprolol Tartrate [Lopressor] 25 mg PO BID 07/25/16 12/20/22 History L.acidoph,Paracasei, B.lactis 1 cap PO DAILY 09/01/18 12/20/22 History [Probiotic] allopurinoL [Zyloprim] 100 mg PO HS 11/21/19 12/20/22 History Albuterol Sulfate [Ventolin HFA] 2 puff INHALATION RT-QID PRN 10/21/21 12/20/22 History Fluticasone/Umeclidin/Vilanter 1 puff INHALATION RT-DAILY 10/21/21 12/20/22 History [Trelegy Ellipta 100-62.5-25] Cyanocobalamin (Vitamin B-12) 1,000 mcg PO DAILY 07/02/22 12/20/22 History [Vitamin B-12] Sodium Bicarbonate Tab 650 mg PO BID #60 tab 07/04/22 12/20/22 Rx Famotidine [Pepcid] 20 mg PO DAILY 07/11/22 12/20/22 History ALPRAZolam [Xanax] 0.5 mg PO HS 11/06/22 12/20/22 History Albuterol Nebulized [Ventolin 2.5 mg INHALATION RT-TID 11/06/22 12/20/22 History Nebulized] Budesonide 0.5 mg INHALATION RT-BID 11/06/22 12/20/22 History Cetirizine HCl [Zyrtec] 10 mg PO DAILY 11/06/22 12/20/22 History Folic Acid 1 mg PO DAILY 11/06/22 12/20/22 History Sodium Zirconium Cyclosilicate 10 gm PO DAILY@1400 11/06/22 12/20/22 History [Lokelma] guaiFENesin [guaiFENesin ER] 600 mg PO BID 11/06/22 12/20/22 History Magnesium Oxide [Mag-Ox] 400 mg PO BID 30 Days #60 tab 11/10/22 12/20/22 Rx Aspirin EC [Ecotrin Low Dose] 81 mg PO DAILY 12/20/22 12/20/22 History Cholecalciferol [Vitamin D3 (25 50 mcg PO DAILY 12/20/22 12/20/22 History Mcg = 1000 Iu)] Doxazosin [Cardura] 4 mg PO HS 12/20/22 12/20/22 History polyethylene glycoL 3350 [Miralax] 17 gm PO DAILY 12/20/22 12/20/22 History Allergies Allergy/AdvReac Type Severity Reaction Status Date / Time cefepime Allergy SHUT DOWN Verified 12/20/22 13:37 KIDNEYS ether Allergy Anaphylaxis Verified 12/20/22 13:37 Iodinated Contrast Media Allergy PAST Verified 12/20/22 13:37 [Iodinated Contrast Media - HISTORY OF Oral and] KIDNEY PROBLEMS venom-honey bee Allergy Anaphylaxis Verified 12/20/22 13:37 sulfamethoxazole AdvReac states Verified 12/20/22 13:37 [From Bactrim] effects kidneys trimethoprim [From Bactrim] AdvReac states Verified 12/20/22 13:37 effects kidneys Physical Exam Vitals: Vital Signs Temp Pulse Pulse Resp BP Pulse Ox 12/22/22 12:28 80 12/22/22 12:19 80 12/22/22 09:31 76 12/22/22 09:22 77 97 12/22/22 06:50 97.9 F 82 19 124/61 96 12/22/22 01:45 97.8 F 72 18 100/51 97 12/21/22 21:44 76 12/21/22 21:26 80 12/21/22 18:56 97.8 F 78 18 110/66 98 12/21/22 16:59 80 12/21/22 16:49 72 10/15/23 13:19 76 12/21/22 13:07 72 12/21/22 12:50 97.5 F L 72 17 114/59 96 Intake and Output 12/21/22 12/22/22 12/22/22 22:59 06:59 14:59 Output Total 250 Balance -250 Output: Urine 250 Other: # Voids 1 Results CBC & Chem 7: 12/21/22 04:17 12/21/22 04:17 Labs: Abnormal Lab Results - Last 24 Hours (Table) 12/22/22 Range/Units 07:02 TIBC 218 L (228-460) UG/DL Transferrin 156.0 L (204.0-354.0) mg/dL Ferritin 522.0 H (22.0-322.0) ng/mL Vitamin B12 1050.0 H (200.0-944.0) pg/mL Microbiology - Last 24 Hours (Table) 12/20/22 14:15 Blood Culture - Preliminary Blood 12/20/22 14:00 Blood Culture - Preliminary Blood Assessment and Plan (1) Non-pressure chronic ulcer of skin of other sites with fat layer exposed Current Visit: Yes Status: Acute Code(s): L98.492 - NON-PRS CHRONIC ULCER OF SKIN OF SITES W FAT LAYER EXPOSED SNOMED Code(s): 94383990
[2022-12-22] MEDS: SODIUM ZIRCONIUM CYCLOSILICATE 10 GM PACKET PO SCH (13:15)
[2022-12-22 14:43] LABS: African American GFR (CKD) 42 (>60 ml/min/1.73 sqM); Anion Gap 9 mmol/L; Blood Urea Nitrogen 47 mg/dL (9-20); Calcium 8.5 mg/dL (8.4-10.2); Carbon Dioxide 25 mmol/L (22-30); Chloride 104 mmol/L (98-107); Glucose 113 mg/dL (74-99); Non-African American GFR(CKD) 37 (>60 ml/min/1.73 sqM); Sodium 138 mmol/L (137-145)
--- NOTE | 2022-12-22 15:14 | P.PN ---
Subjective Progress Note Date: 12/22/22 This is a pleasant 77-year-old male patient with a known history of chronic kidney disease, post colectomy secondary to perforation and subsequent colostomy with recent reversal, left lower extremity DVT, factor V laden mutation, tracheobronchial malacia, moderate chronic obstructive pulmonary disease, so litary lung nodule status post radiation, history of frequent MRSA and pseudomonas pneumonias. He presented here to the emergency room yesterday after a 2 to three-day history of increasing shortness of breath, cough and congestion. X-ray shows patchy basilar infiltrates and/or atelectasis with sm all effusions. White count 4.4. Hemoglobin 7.5. Platelets 298. Sodium 142. Potassium 5.0. Bicarb 27. BUN 45. Creatinine 1.7. Glucose 158. ProBNP 3100. Pro-calcitonin 0.40. He is seen today in consultation on the regular medical floor. He is up ambulating in his room. Awake and alert in no acute distress. Maintaining O2 saturations in the 90s on 2 L/m per nasal cannula. He is afebri le. Hemodynamically stable. The patient is seen today 12/22/2022 in follow-up on the regular medical floor. He is awake and alert in no acute distress. Up ambulating to his bathroom. Maintaining O2 saturations up to 99% on 2 L/m per nasal cannula. He is afebrile. Hemodynamically stable. Blood cultures pending. Sodium 138. Potassium 4.2. Bicarb 25. BUN 47. Creatinine 1.74. Glucose 113. Pro- calcitonin 0.40. He remains on DuoNeb inhalations, Pulmicort inhalations, Mucinex, Singulair. Continued on Zosyn. Heparin for DVT prophylaxis. Objective - Vital Signs Vital signs: Vital Signs Temp 97.8 F 12/22/22 13:20 Pulse 65 12/22/22 13:20 Resp 18 12/22/22 13:20 BP 106/61 12/22/22 13:20 Pulse Ox 99 12/22/22 13:20 FiO2 Intake & Output 12/21/22 12/22/22 12/22/22 18:59 06:59 18:59 Intake Total 350 Output Total 250 Balance 350 -250 Weight 62.142 kg Intake: Intake, IV Titration 350 Amount Azithromycin 500 mg In 250 Sodium Chloride 0.9% 250 ml @ 250 mls/hr IVPB DAILY@1200 [facility] Rx#: [id number] Piperacillin-Tazobactam 3 100 .375 gm In Sodium Chloride 0.9% 100 ml @ 25 mls/hr IVPB Q8HR [facility] Rx# :[id number] Output: Urine 250 Other: # Voids 1 - Exam GENERAL EXAM: Alert, very pleasant 77-year-old male, ambulating in his room, on 2 L nasal cannula, comfortable in no apparent distress. HEAD: Normocephalic. EYES: Normal reaction of pupils, equal size. NOSE: Clear with pink turbinates. THROAT: No erythema or exudates. NECK: No masses, no JVD. CHEST: No chest wall deformity. LUNGS: Equal air entry with scattered rhonchi. CVS: S1 and S2 normal with no audible murmur, regular rhythm. ABDOMEN: Dressing/binder in place. No hepatosplenomegaly, normal bowel sounds, no guarding or rigidity. SPINE: No scoliosis or deformity SKIN: No rashes CENTRAL NERVOUS SYSTEM: No focal deficits, tone is normal in all 4 extremities. EXTREMITIES: There is no peripheral edema. No clubbing, no cyanosis. Peripheral pulses are intact. - Labs CBC & Chem 7: 12/21/22 04:17 12/22/22 14:12 Labs: Abnormal Lab Results - Last 24 Hours (Table) 12/22/22 12/22/22 Range/Units 07:02 14:12 BUN 47 H (9-20) mg/dL Creatinine 1.74 H (0.66-1.25) mg/dL Glucose 113 H (74-99) mg/dL TIBC 218 L (228-460) UG/DL Transferrin 156.0 L (204.0-354.0) mg/dL Ferritin 522.0 H (22.0-322.0) ng/mL Vitamin B12 1050.0 H (200.0-944.0) pg/mL Microbiology - Last 24 Hours (Table) 12/20/22 14:15 Blood Culture - Preliminary Blood 12/20/22 14:00 Blood Culture - Preliminary Blood Assessment and Plan Assessment: Acute hypoxic respiratory failure secondary to acute exacerbation of chronic obstructive pulmonary disease with bibasilar opacities favoring atelectasis Previous history of multiple pneumonias from pseudomonas, MRSA, E. coli History of right upper lobe pulmonary nodule with previous radiation, being monitored in the outpatient setting History of perforated colon requiring colectomy and colostomy and subsequent recent reversal Chronic kidney disease Tracheobronchomalacia Factor V Leiden mutation Hypertension History of anxiety History of dysphagia Plan: The patient was seen and evaluated Labs and medications reviewed Continue Zosyn, bronchodilators Heparin for DVT prophylaxis Titrate the FiO2 as tolerated Increase his activity as tolerated We will continue to follow I have personally seen and examined the patient, performed the documentation and the assessment and plan as written. Number of minutes spent on the visit: 10.
--- NOTE | 2022-12-22 18:38 | CA ---
Transthoracic Echo Report Name: Anival Chavez Age: 77 Gender: M : 1945 Exam Date: 12/22/2022 14:12 Exam Location: [place] [facility] Ht (in): 65 Wt (lb): 137 Ordering Physician: Km Kaiser MD Attending/Referring Phys: Machine Fancy Stitcher Ritesh Wynne Procedure CPT: Indications: chf Cardiac Hx: Technical Quality: Fair Contrast 1: Total Dose (mL): Contrast 2: Total Dose (mL): MEASUREMENTS (Male / Female) Normal Values 2D ECHO LV Diastolic Diameter PLAX 5.6 cm 4.2 - 5.9 / 3.9 - 5.3 cm LV Systolic Diameter PLAX 2.9 cm IVS Diastolic Thickness 0.9 cm 0.6 - 1.0 / 0.6 - 0.9 cm LVPW Diastolic Thickness 1.2 cm 0.6 - 1.0 / 0.6 - 0.9 cm LV Relative Wall Thickness 0.4 RV Internal Dim ED PLAX 2.3 cm LVOT Diameter 2.2 cm Aortic Root Diameter 3.1 cm LA Systolic Diameter LX 2.9 cm 3.0 - 4.0 / 2.7 - 3.8 cm LV Diastolic Volume MOD BP 103.0 cm??? 67 - 155 / 56 - 104 cm??? LV Systolic Volume MOD BP 41.6 cm??? - 58 / 19 - 49 cm??? LV Ejection Fraction MOD BP 59.6 % >= 55 % LV Cardiac Index MOD BP 2793.2 cm???/min???m??? LV Diastolic Volume MOD 4C 93.5 cm??? LV Systolic Volume MOD 4C 41.1 cm??? LV Ejection Fraction MOD 4C 56.0 % LV Cardiac Index MOD 4C 2382.5 cm???/min???m??? LV Diastolic Length 4C 7.9 cm LV Systolic Length 4C 6.4 cm LV Diastolic Volume MOD 2C 105.1 cm??? LV Systolic Volume MOD 2C 39.7 cm??? LV Ejection Fraction MOD 2C 62.2 % LV Cardiac Index MOD 2C 2976.2 cm???/min???m??? LV Diastolic Length 2C 7.3 cm LV Systolic Length 2C 6.0 cm LA Volume 58.8 cm??? 18 - 58 / 22 - 52 cm??? LA Volume Index 34.7 cm???/m??? 16 - 28 cm???/m??? DOPPLER AV Peak Velocity 147.1 cm/s AV Peak Gradient 8.7 mmHg LVOT Peak Velocity 99.8 cm/s LVOT Peak Gradient 4.0 mmHg LVOT Velocity Time Integral 22.6 cm LVOT Stroke Volume 84.8 cm??? LVOT Stroke Volume Index 50.4 ml/m??? LVOT Cardiac Index 3858.7 cm???/min???m??? AV Area Cont Eq pk 2.6 cm??? MV Peak Velocity 118.5 cm/s MV Peak Gradient 5.6 mmHg MV Mean Velocity 61.5 cm/s MV Mean Gradient 1.9 mmHg MV Velocity Time Integral 38.7 cm MR Peak Velocity 334.4 cm/s MR Peak Gradient 44.7 mmHg Mitral E Point Velocity 112.8 cm/s Mitral A Point Velocity 103.1 cm/s Mitral E to A Ratio 1.1 MV Deceleration Time 130.6 ms TR Peak Velocity 328.9 cm/s TR Peak Gradient 43.3 mmHg Right Ventricular Systolic Press 48.3 mmHg PV Peak Velocity 112.0 cm/s PV Peak Gradient 5.0 mmHg FINDINGS Left Ventricle Normal LV size and wall thickness. Left ventricular ejection fraction is estimated at 55-60 %. Right Ventricle Normal right ventricular size. RVSP=48mmHg. Right Atrium Normal right atrial size. Left Atrium Moderately increased left atrial volume. LAvolume index= 35ml/m2 Mitral Valve Mild mitral valve thicknening. Trace MR. Aortic Valve Aortic valve not well visualized. Trileaflet aortic valve. No aortic regurgitation. Tricuspid Valve Structurally normal tricuspid valve. Moderate TR. Pulmonic Valve Pulmonic valve not well visualized. Trace PI. Pericardium Normal pericardium. Aorta Normal size aortic root. CONCLUSIONS Normal LV size and systolic function Elevated RVSP, moderate tricuspid regurgitation Left atrial enlargement Atherosclerotic plaque noted in the ascending aorta and root Previewed by: Dr. Chance Jose MD (Electronically Signed) Final Date: 22 December 2022 18:37
[2022-12-22] MEDS: allopurinoL 100 MG TAB PO SCH (20:37)
[2022-12-22] MEDS: MONTELUKAST 10 MG TAB PO SCH (20:38)
[2022-12-22] MEDS: DOXAZOSIN 4 MG TAB PO SCH (20:38)
[2022-12-22] MEDS: ALPRAZolam 0.5 MG TAB PO SCH (20:39)
--- NOTE | 2022-12-22 21:13 | P.PN ---
Progress Note - Text Progress Note Date: 12/22/22 Chief Complaint: MARTA Patient is a 77-year-old male with a past medical history of COPD on home oxygen 2 L as needed, history of Pseudomonas pneumonia, history of bronchial stent placement/removal, CKD stage III, history of lung cancer, history of DVT, hypertension anxiety and prior history of smoking presents to ER with complaints of worsening shortness of breath. Patient has been having symptoms for the past 4 to 5 days and also having exertional dyspnea. Denies any fever or chills. No complaints of chest pain. Denies any leg swelling. No nausea vomiting abdominal pain or diarrhea. Patient was discharged from hospital on 11/10/2022, admitted due to acute kidney injury and was seen by nephrology. Patient was hydrated and was also on bicarb drip. Patient underwent extensive lysis of adhesions, small bowel resection and repair of incisional hernia on 02/09/2022. Patient states that he had a reversal of ostomy and repair of incisional hernia done on November 14, 2022. On admission chest x-ray showed patchy bibasilar infiltrates/atelectasis with small effusions have increased since prior study. EKG showed sinus rhythm with frequent ventricular premature complexes. Laboratory data showed WBC 6.9 hemoglobin 8.9 platelets 290, sodium 136 potassium 4.9 chloride 102 bicarb is 27 BUN 42 and creatinine 1.42 Liver enzymes are not elevated. Troponin 0.012 and proBNP 3100 and albumin 3.3. 12/21/2022: Sitting at the edge of the bed. Some cough. Does have 2 L of oxygen and at home. On antibiotics bronchodilators. Did tolerate some diet. December 22: Does bring up some sputum when he lies down. For his midline abdominal ulceration wound care and ID consulted. Also consultation to nephrology and. Oral intake good. Active Medications Albuterol Sulfate (Albuterol Nebulized 2.5 Mg/3 Ml) 2.5 mg INHALATION RT-Q2H PRN PRN Reason: Shortness Of Breath Or Wheezing Albuterol/Ipratropium (Ipratropium-Albuterol 3 Ml Neb) 3 ml INHALATION RT-QID [facility] Last Admin: 12/22/22 21:01 Dose: 3 ml Allopurinol (Allopurinol 100 Mg Tab) 100 mg PO HS [facility] Last Admin: 12/22/22 20:37 Dose: 100 mg Alprazolam (Alprazolam 0.5 Mg Tab) 0.5 mg PO HS [facility] Last Admin: 12/22/22 20:39 Dose: 0.5 mg Aspirin (Aspirin 81 Mg) 81 mg PO DAILY [facility] Last Admin: 12/22/22 08:59 Dose: 81 mg Budesonide (Budesonide 0.5 Mg/2 Ml Nebu) 0.5 mg INHALATION RT-BID [facility] Last Admin: 12/22/22 21:01 Dose: 0.5 mg Cyanocobalamin (Cyanocobalamin 500 Mcg Tab) 1,000 mcg PO DAILY [facility] Last Admin: 12/22/22 08:59 Dose: 1,000 mcg Doxazosin Mesylate (Doxazosin 4 Mg Tab) 4 mg PO HS [facility] Last Admin: 12/22/22 20:38 Dose: 4 mg Famotidine (Famotidine 20 Mg Tab) 20 mg PO DAILY [facility] Last Admin: 12/22/22 08:59 Dose: 20 mg Folic Acid (Folic Acid 1 Mg Tab) 1 mg PO DAILY [facility] Last Admin: 12/22/22 08:59 Dose: 1 mg Guaifenesin (Guaifenesin 600 Mg Tablet.Er) 600 mg PO Q12HR [facility] Last Admin: 12/22/22 20:38 Dose: 600 mg Heparin Sodium (Porcine) (Heparin Sodium,Porcine 5,000 Unit/Ml 1 Ml Vial) 5,000 unit SQ Q8HR [facility] Last Admin: 12/22/22 17:25 Dose: 5,000 unit Piperacillin Sod/Tazobactam (Sod 3.375 gm/ Sodium Chloride) 100 mls @ 25 mls/hr IVPB Q8HR [facility]; Protocol Stop: 12/25/22 00:01 Last Admin: 12/22/22 17:26 Dose: 25 mls/hr Magnesium Oxide (Magnesium Oxide 400 Mg Tab) 400 mg PO BID [facility] Last Admin: 12/22/22 20:38 Dose: 400 mg Metoprolol Tartrate (Metoprolol Tartrate 25 Mg Tab) 25 mg PO BID [facility] Last Admin: 12/22/22 20:38 Dose: 25 mg Miscellaneous Information (Pneumonia Protocol Utilized 1 Each Misc) 1 each PO ONCE PRN PRN Reason: Per Protocol Montelukast Sodium (Montelukast 10 Mg Tab) 10 mg PO HS [facility] Last Admin: 10/16/23 20:38 Dose: 10 mg Polyethylene Glycol (Polyethylene Glycol 3350 17 Gm Powd.Pack) 17 gm PO DAILY [facility] Last Admin: 12/22/22 08:59 Dose: 17 gm Sodium Bicarbonate (Sodium Bicarbonate Tab 650 Mg Tab) 650 mg PO BID [facility] Last Admin: 12/22/22 20:38 Dose: 650 mg Sodium Zirconium Cyclosilicate (Sodium Zirconium Cyclosilicate 10 Gm Packet) 10 gm PO DAILY@1400 [facility] Last Admin: 12/22/22 13:15 Dose: 10 gm Past Medical History Past Medical History: Blood Disorder, Cancer, COPD, Deep Vein Thrombosis (DVT), GERD/Reflux, Hypertension, Pneumonia, Renal Disease Additional Past Medical History / Comment(s): hx of pseudomonus lung infection, uses CPAP not for sleep apnea, O2 prn 2l prn, diverticulits, Factor V Leiden, hx of bronchial silicone stent now removed, PICC line in past now removed, past hx dialysis for kidney damage, none currently, Stage 3 renal disease, Lung cancer - diagnosed and treated down in [place], Colostomy, hernia repair History of Any Multi-Drug Resistant Organisms: MRSA, Other MDRO Date of last positivie culture/infection: 08/30/21-MRSA MDRO Source:: Sputum-MDRO & MRSA Past Surgical History: Hernia Repair, Tonsillectomy Additional Past Surgical History / Comment(s): bronchoscopy, bronchial silicone stent, now removed, fatty tumor removed from chest area, COLONOSCOPY, alexandre cataract, hernia repair, ileostomy Past Anesthesia/Blood Transfusion Reactions: Previous Problems w/ Anesthesia Additional Past Anesthesia/Blood Transfusion Reaction / Comment(s): "as infant turned black and blue from ETHER". FACTOR V LEIDEN Past Psychological History: Anxiety Smoking Status: Former smoker Past Alcohol Use History: None Reported Past Drug Use History: None Reported - Past Family History Father Family Medical History: Cancer Additional Family Medical History / Comment(s): colon cancer Mother Family Medical History: Cancer Additional Family Medical History / Comment(s): leukemia On examination: VITAL SIGNS: [97.5, 72, 17, 156% on 2 L] GENERAL APPEARANCE: Sitting at the edge of the bed, using nebulizer HEENT: Normal external appearance of nose and ear. Oral cavity normal EYES: Pupils equal. Conjunctiva normal. NECK: JVD not raised. Mass not palpable. RESPIRATORY: Respiratory effort increase. His breath sounds or wheezing CARDIOVASCULAR: First and second sounds normal. No edema. ABDOMEN: Soft. Liver and spleen not palpable. No tenderness. No mass palpable. Postop incision wound. PSYCHIATRY: Alert and oriented x3. Mood and affect normal. INVESTIGATIONS, reviewed in the clinical context: December 22: Potassium 4 BUN 47 creatinine is 1.74 I a KEN TIBC 218 transferrin 156 ferritin 522. B12 1050. Folate greater than 20. Chest x-ray film personally reviewed by me-small bilateral effusion. Possible basis this letter opacities. December 21: White count 4.4 hemoglobin 7.5 platelets 298 potassium 5. 45 crit and 1.7. Procalcitonin 0.40 Prior labs: 08/06/2022: Creatinine 1.7 11/07/2022: Hemoglobin 10.1 Assessment and plan: Bibasilar infiltrates/atelectasis with small pleural effusions. Possible pneumonia versus acute CHF. EF not known. -IV Zosyn and azithromycin. Acute hypoxic respiratory failure -On oxygen Chronic kidney disease stage III baseline creatinine level -Creatinine 1.7 on July 2022 Suspect anemia of chronic kidney disease. I diffuse anemia. , B12, folate: Normal Chronic hyperkalemia from underlying CK D -Continue Lokelnc Recent history of reversal of colostomy and umbilical hernia repair on 11/14/2022. -On laxative at home Prior history of Pseudomonas pneumonia Right upper lobe pulmonary nodule. Patient had PET scan and was treated with SBRT Abdominal wall wound from incision. [History of colonic perforation requiring colectomy and colostomy] -Wound care/ID Obstructive sleep apnea not on CPAP COPD in a previous smoker -DuoNeb Chronic hypoxic respiratory failure -on home oxygen 2 L History of DVT Essential Hypertension -Lopressor 25 mg twice a day Anxiety Consult ID, nephrology. IV Zosyn. IV Ferrlecit. Up in chair as tolerated.
[2022-12-22] MEDS: SODIUM FERRIC GLUCONAT-SUCROSE 125 MG in SODIUM CHLORIDE 0.9% 100 ML IVPB SCH (21:46)
--- NOTE | 2022-12-22 23:40 | P.CONS ---
History of Present Illness - Reason for Consult Consult date: 12/22/22 - History of Present Illness Patient is a 77-year-old male with a past medical history significant for hypertension reflux COPD history of recurrent pseudomonal pneumonia with a last admission to the hospital back in March 2022 patient has been on suppressive tobramycin inhalation that has been interrupted few times because of his kidney function patient is presenting to the hospital 2 days ago for evaluation of increasing shortness of breath that apparently has been getting worse for the last 4 to 5 days patient also have a cough which is moderate intensity and is bringing up some sputum no hemoptysis denies any pleuritic chest pain no nausea no vomiting no abdominal pain or diarrhea patient have abdominal wall wound after he did have reversal of his colostomy denies any drainage from it on presentation to the hospital the patient was afebrile and no fever has been gone subsequently patient is on 3 L nasal cannula oxygen did have a normal white count BUN/creatinine was mildly elevated liver enzymes are normal procalcitonin 0.40 blood cultures obtained currently pending patient did have a chest x-ray patchy basilar infiltrate and/or atelectasis with small effusion slightly increased patient is currently being treated with the [facility] infectious was consulted today regarding his antibiotics and abdominal wound Past Medical History Past Medical History: Blood Disorder, Cancer, COPD, Deep Vein Thrombosis (DVT), GERD/Reflux, Hypertension, Pneumonia, Renal Disease Additional Past Medical History / Comment(s): hx of pseudomonus lung infection, uses CPAP not for sleep apnea, O2 prn 2l prn, diverticulits, Factor V Leiden, hx of bronchial silicone stent now removed, PICC line in past now removed, past hx dialysis for kidney damage, none currently, Stage 3 renal disease, Lung cancer - diagnosed and treated down in [place], colostomy with reversal, hernia repair History of Any Multi-Drug Resistant Organisms: MRSA, Other MDRO Year Discovered:: 08/30/21-MRSA MDRO Source:: Sputum-MDRO & MRSA Past Surgical History: Hernia Repair, Tonsillectomy Additional Past Surgical History / Comment(s): bronchoscopy, bronchial silicone stent, now removed, fatty tumor removed from chest area, COLONOSCOPY, alexandre catar act, hernia repair, ileostomy/colostomy reversal Past Anesthesia/Blood Transfusion Reactions: Previous Problems w/ Anesthesia Additional Past Anesthesia/Blood Transfusion Reaction / Comm: "as turned black and blue from ETHER". FACTOR V LEIDEN Past Psychological History: Anxiety Smoking Status: Former smoker Past Alcohol Use History: None Reported Additional Past Alcohol Use History / Comment(s): STARTED SMOKING AT AGE 14, QUIT SMOKING 2012 Past Drug Use History: None Reported - Past Family History Father Family Medical History: Cancer Additional Family Medical History / Comment(s): colon cancer Mother Family Medical History: Cancer Additional Family Medical History / Comment(s): leukemia Medications and Allergies Home Medications Medication Instructions Recorded Confirmed Type Montelukast Sodium [Singulair] 10 mg PO HS 01/24/14 12/20/22 History Metoprolol Tartrate [Lopressor] 25 mg PO BID 07/25/16 12/20/22 History L.acidoph,Paracasei, B.lactis 1 cap PO DAILY 09/01/18 12/20/22 History [Probiotic] allopurinoL [Zyloprim] 100 mg PO HS 11/21/19 12/20/22 History Albuterol Sulfate [Ventolin HFA] 2 puff INHALATION RT-QID PRN 10/21/21 12/20/22 History Fluticasone/Umeclidin/Vilanter 1 puff INHALATION RT-DAILY 10/21/21 12/20/22 History [Trelegy Ellipta 100-62.5-25] Cyanocobalamin (Vitamin B-12) 1,000 mcg PO DAILY 07/02/22 12/20/22 History [Vitamin B-12] Sodium Bicarbonate Tab 650 mg PO BID #60 tab 07/04/22 12/20/22 Rx Famotidine [Pepcid] 20 mg PO DAILY 07/11/22 12/20/22 History ALPRAZolam [Xanax] 0.5 mg PO HS 11/06/22 12/20/22 History Albuterol Nebulized [Ventolin 2.5 mg INHALATION RT-TID 11/06/22 12/20/22 History Nebulized] Budesonide 0.5 mg INHALATION RT-BID 11/06/22 12/20/22 History Cetirizine HCl [Zyrtec] 10 mg PO DAILY 11/06/22 12/20/22 History Folic Acid 1 mg PO DAILY 11/06/22 12/20/22 History Sodium Zirconium Cyclosilicate 10 gm PO DAILY@1400 11/06/22 12/20/22 History [Lokelma] guaiFENesin [guaiFENesin ER] 600 mg PO BID 11/06/22 12/20/22 History Magnesium Oxide [Mag-Ox] 400 mg PO BID 30 Days #60 tab 11/10/22 12/20/22 Rx Aspirin EC [Ecotrin Low Dose] 81 mg PO DAILY 12/20/22 12/20/22 History Cholecalciferol [Vitamin D3 (25 50 mcg PO DAILY 12/20/22 12/20/22 History Mcg = 1000 Iu)] Doxazosin [Cardura] 4 mg PO HS 12/20/22 12/20/22 History polyethylene glycoL 3350 [Miralax] 17 gm PO DAILY 12/20/22 12/20/22 History Allergies Allergy/AdvReac Type Severity Reaction Status Date / Time cefepime Allergy SHUT DOWN Verified 12/20/22 13:37 KIDNEYS ether Allergy Anaphylaxis Verified 12/20/22 13:37 Iodinated Contrast Media Allergy PAST Verified 12/20/22 13:37 [Iodinated Contrast Media - HISTORY OF Oral and] KIDNEY PROBLEMS venom-honey bee Allergy Anaphylaxis Verified 12/20/22 13:37 sulfamethoxazole AdvReac states Verified 12/20/22 13:37 [From Bactrim] effects kidneys trimethoprim [From Bactrim] AdvReac states Verified 12/20/22 13:37 effects kidneys Physical Exam Vitals: Vital Signs Temp Pulse Pulse Resp BP Pulse Ox 12/22/22 13:20 97.8 F 65 18 106/61 99 12/22/22 12:28 80 12/22/22 12:19 80 12/22/22 09:31 76 12/22/22 09:22 77 97 12/22/22 06:50 97.9 F 82 19 124/61 96 12/22/22 01:45 97.8 F 72 18 100/51 97 12/21/22 21:44 76 12/21/22 21:26 80 12/21/22 18:56 97.8 F 78 18 110/66 98 12/21/22 16:59 80 12/21/22 16:49 72 Intake and Output 12/22/22 12/22/22 12/22/22 06:59 14:59 22:59 Output Total 250 Balance -250 Output: Urine 250 Other: # Voids 1 Results CBC & Chem 7: 12/21/22 04:17 12/22/22 14:12 Labs: Abnormal Lab Results - Last 24 Hours (Table) 12/22/22 12/22/22 Range/Units 07:02 14:12 BUN 47 H (9-20) mg/dL Creatinine 1.74 H (0.66-1.25) mg/dL Glucose 113 H (74-99) mg/dL TIBC 218 L (228-460) UG/DL Transferrin 156.0 L (204.0-354.0) mg/dL Ferritin 522.0 H (22.0-322.0) ng/mL Vitamin B12 1050.0 H (200.0-944.0) pg/mL Microbiology - Last 24 Hours (Table) 12/20/22 14:15 Blood Culture - Preliminary Blood 12/20/22 14:00 Blood Culture - Preliminary Blood Assessment and Plan Plan: 1patient presented hospital with increasing shortness of breath cough purulent sputum in this patient with evidence of lower lobe infiltrate and mild elevated procalcitonin concerning for possible gram-negative pneumonia. 2abdominal wall wound with no slough tissue or surrounding erythema we will recommend local wound care with the Aquacel silver dressing change every 48 hour. 3we will obtain a sputum for Gram stain and culture and follow-up on the blood culture. 4continue with the Zosyn 3.37 g every 8 hours while waiting for the culture to finalize We will follow on clinical condition and cultures to further adjust medication if needed Thank you for this consultation we will follow the patient along with you Dictation was produced using [employer] dictation software. please excuse any grammatical, word or spelling errors. Time with Patient: Greater than 30
[2022-12-23] MEDS: HEPARIN SODIUM,PORCINE 5,000 UNIT/ML 1 ML VIAL SQ SCH ×4 (00:28→22:26)
[2022-12-23] MEDS: PIPERACILLIN-TAZOBACTAM 3.375 GM in SODIUM CHLORIDE 0.9% 100 ML IVPB SCH ×4 (00:28→23:07)
[2022-12-23] MEDS: BUDESONIDE 0.5 MG/2 ML NEBU INHALATION SCH ×2 (08:58→20:17)
[2022-12-23] MEDS: IPRATROPIUM-ALBUTEROL 3 ML NEB INHALATION SCH ×4 (08:58→20:17)
[2022-12-23] MEDS: FOLIC ACID 1 MG TAB PO SCH (09:00)
[2022-12-23] MEDS: CYANOCOBALAMIN 500 MCG TAB PO SCH (09:00)
[2022-12-23] MEDS: SODIUM BICARBONATE TAB 650 MG TAB PO SCH ×2 (09:00→22:26)
[2022-12-23] MEDS: guaiFENesin 600 MG TABLET.ER PO SCH ×2 (09:00→22:26)
[2022-12-23] MEDS: METOPROLOL TARTRATE 25 MG TAB PO SCH ×2 (09:00→22:26)
[2022-12-23] MEDS: FAMOTIDINE 20 MG TAB PO SCH (09:00)
[2022-12-23] MEDS: polyethylene glycoL 3350 17 GM POWD.PACK PO SCH (09:00)
[2022-12-23] MEDS: MAGNESIUM OXIDE 400 MG TAB PO SCH ×2 (09:00→22:26)
[2022-12-23] MEDS: ASPIRIN 81 MG PO SCH (09:00)
[2022-12-23] MEDS: SODIUM FERRIC GLUCONAT-SUCROSE 125 MG in SODIUM CHLORIDE 0.9% 100 ML IVPB SCH (09:24)
--- NOTE | 2022-12-23 11:49 | P.PN ---
Subjective Progress Note Date: 12/23/22 This is a pleasant 77-year-old male patient with a known history of chronic kidney disease, post colectomy secondary to perforation and subsequent colostomy with recent reversal, left lower extremity DVT, factor V laden mutation, tracheobronchial malacia, moderate chronic obstructive pulmonary disease, so litary lung nodule status post radiation, history of frequent MRSA and pseudomonas pneumonias. He presented here to the emergency room yesterday after a 2 to three-day history of increasing shortness of breath, cough and congestion. X-ray shows patchy basilar infiltrates and/or atelectasis with sm all effusions. White count 4.4. Hemoglobin 7.5. Platelets 298. Sodium 142. Potassium 5.0. Bicarb 27. BUN 45. Creatinine 1.7. Glucose 158. ProBNP 3100. Pro-calcitonin 0.40. He is seen today in consultation on the regular medical floor. He is up ambulating in his room. Awake and alert in no acute distress. Maintaining O2 saturations in the 90s on 2 L/m per nasal cannula. He is afebri le. Hemodynamically stable. The patient is seen today 12/22/2022 in follow-up on the regular medical floor. He is awake and alert in no acute distress. Up ambulating to his bathroom. Maintaining O2 saturations up to 99% on 2 L/m per nasal cannula. He is afebrile. Hemodynamically stable. Blood cultures pending. Sodium 138. Potassium 4.2. Bicarb 25. BUN 47. Creatinine 1.74. Glucose 113. Pro- calcitonin 0.40. He remains on DuoNeb inhalations, Pulmicort inhalations, Mucinex, Singulair. Continued on Zosyn. Heparin for DVT prophylaxis. The patient is seen today 12/23/2022 in follow-up on the regular medical floor. He is currently resting comfortably in bed. Awake and alert in no acute distress. He is maintaining O2 saturations in the 90s on 2 L/m per nasal cannula. His pro calcitonin was 0.40. Blood cultures reveal no growth. He is receiving iron replacement therapy. He remains on bronchodilators, Singulair, Mucinex. Antibiotics in the form of Zosyn. Heparin for DVT prophylaxis. Objective - Vital Signs Vital signs: Vital Signs Temp 98.2 F 12/23/22 06:57 Pulse 80 12/23/22 09:09 Resp 16 12/23/22 06:57 BP 122/68 12/23/22 06:57 Pulse Ox 96 12/23/22 06:57 FiO2 Intake & Output 12/22/22 12/23/22 12/23/22 18:59 06:59 18:59 Intake Total 100 Output Total 250 Balance 100 -250 Intake: Intake, IV Titration 100 Amount Piperacillin-Tazobactam 3 100 .375 gm In Sodium Chloride 0.9% 100 ml @ 25 mls/hr IVPB Q8HR [facility] Rx# :[id number] Output: Urine 250 Other: # Voids 0 - Exam GENERAL EXAM: Alert, 77-year-old male, resting in bed, on 2 L nasal cannula, comfortable in no apparent distress. HEAD: Normocephalic. EYES: Normal reaction of pupils, equal size. NOSE: Clear with pink turbinates. THROAT: No erythema or exudates. NECK: No masses, no JVD. CHEST: No chest wall deformity. LUNGS: Equal air entry with scattered rhonchi. CVS: S1 and S2 normal with no audible murmur, regular rhythm. ABDOMEN: Dressing/binder in place. No hepatosplenomegaly, normal bowel sounds, no guarding or rigidity. SPINE: No scoliosis or deformity SKIN: No rashes CENTRAL NERVOUS SYSTEM: No focal deficits, tone is normal in all 4 extremities. EXTREMITIES: There is no peripheral edema. No clubbing, no cyanosis. Peripheral pulses are intact. - Labs CBC & Chem 7: 12/21/22 04:17 12/22/22 14:12 Labs: Abnormal Lab Results - Last 24 Hours (Table) 12/22/22 12/22/22 Range/Units 07:02 14:12 BUN 47 H (9-20) mg/dL Creatinine 1.74 H (0.66-1.25) mg/dL Glucose 113 H (74-99) mg/dL TIBC 218 L (228-460) UG/DL Transferrin 156.0 L (204.0-354.0) mg/dL Ferritin 522.0 H (22.0-322.0) ng/mL Vitamin B12 1050.0 H (200.0-944.0) pg/mL Microbiology - Last 24 Hours (Table) 12/20/22 14:15 Blood Culture - Preliminary Blood 12/20/22 14:00 Blood Culture - Preliminary Blood Assessment and Plan Assessment: Acute hypoxic respiratory failure secondary to acute exacerbation of chronic obstructive pulmonary disease with bibasilar opacities. Pro calcitonin 0.40. Currently on Zosyn. Previous history of multiple pneumonias from pseudomonas, MRSA, E. coli History of right upper lobe pulmonary nodule with previous radiation, being monitored in the outpatient setting History of perforated colon requiring colectomy and colostomy and subsequent recent reversal Chronic kidney disease Acute on chronic anemia, iron deficiency Tracheobronchomalacia Factor V Leiden mutation Hypertension History of anxiety History of dysphagia Plan: The patient was seen and evaluated Medications reviewed Receiving iron replacement Continue Zosyn, bronchodilators Titrate the FiO2 as tolerated Increase his activity as tolerated We will continue to follow This patient was seen independently by the nurse practitioner I have personally seen and examined the patient, performed the documentation and the assessment and plan as written. Number of minutes spent on the visit: 20.
--- NOTE | 2022-12-23 11:53 | P.NPCON ---
History of Present Illness - Reason for Consult chronic renal failure - History of Present Illness Reason for consultation: Chronic kidney disease History of present illness: Patient is a 77-year-old male seen in renal consultation for chronic kidney disease. Patient has chronic kidney disease stage III with baseline creatinine near 1.5. Etiology is nonrecovered ATN as well as multiple acute kidney injury episodes from inhaled tobramycin. Patient was admitted here in November 2022 with vasomotor nephropathy and improved with IV hydration. Creatinine at the time of discharge 11/10/2022 was 2.11. This measures patient's creatinine has been in the range of 1.4-1.7. He underwent reversal of colostomy on 11/15/2022. He admits to good urine output. Patient came to the hospital this time due to shortness of breath and cough. Patient admits to clear phlegm. He denies use of nonsteroidals. No vomiting or diarrhea. No chest pain. Oral intake is good. Hemodynamically stable. Vital signs are stable. General: No acute distress. HEENT: Head exam is unremarkable. LUNGS: No audible rhonchi or wheezes. HEART: Rate and Rhythm are regular. ABDOMEN: Nontender. EXTREMITITES: No edema. Past Medical History Past Medical History: Blood Disorder, Cancer, COPD, Deep Vein Thrombosis (DVT), GERD/Reflux, Hypertension, Pneumonia, Renal Disease Additional Past Medical History / Comment(s): hx of pseudomonus lung infection, uses CPAP not for sleep apnea, O2 prn 2l prn, diverticulits, Factor V Leiden, hx of bronchial silicone stent now removed, PICC line in past now removed, past hx dialysis for kidney damage, none currently, Stage 3 renal disease, Lung cancer - diagnosed and treated down in [place], colostomy with reversal, hernia repair History of Any Multi-Drug Resistant Organisms: MRSA, Other MDRO Date of last positivie culture/infection: 08/30/21-MRSA MDRO Source:: Sputum-MDRO & MRSA Past Surgical History: Hernia Repair, Tonsillectomy Additional Past Surgical History / Comment(s): bronchoscopy, bronchial silicone stent, now removed, fatty tumor removed from chest area, COLONOSCOPY, alexandre catar act, hernia repair, ileostomy/colostomy reversal Past Anesthesia/Blood Transfusion Reactions: Previous Problems w/ Anesthesia Additional Past Anesthesia/Blood Transfusion Reaction / Comment(s): "as turned black and blue from ETHER". FACTOR V LEIDEN Past Psychological History: Anxiety Smoking Status: Former smoker Past Alcohol Use History: None Reported Additional Past Alcohol Use History / Comment(s): STARTED SMOKING AT AGE 14, QUIT SMOKING 2012 Past Drug Use History: None Reported - Past Family History Father Family Medical History: Cancer Additional Family Medical History / Comment(s): colon cancer Mother Family Medical History: Cancer Additional Family Medical History / Comment(s): leukemia Medications and Allergies Home Medications Medication Instructions Recorded Confirmed Type Montelukast Sodium [Singulair] 10 mg PO HS 01/24/14 12/20/22 History Metoprolol Tartrate [Lopressor] 25 mg PO BID 07/25/16 12/20/22 History L.acidoph,Paracasei, B.lactis 1 cap PO DAILY 09/01/18 12/20/22 History [Probiotic] allopurinoL [Zyloprim] 100 mg PO HS 11/21/19 12/20/22 History Albuterol Sulfate [Ventolin HFA] 2 puff INHALATION RT-QID PRN 10/21/21 12/20/22 History Fluticasone/Umeclidin/Vilanter 1 puff INHALATION RT-DAILY 10/21/21 12/20/22 History [Trelegy Ellipta 100-62.5-25] Cyanocobalamin (Vitamin B-12) 1,000 mcg PO DAILY 07/02/22 12/20/22 History [Vitamin B-12] Sodium Bicarbonate Tab 650 mg PO BID #60 tab 07/04/22 12/20/22 Rx Famotidine [Pepcid] 20 mg PO DAILY 07/11/22 12/20/22 History ALPRAZolam [Xanax] 0.5 mg PO HS 11/06/22 12/20/22 History Albuterol Nebulized [Ventolin 2.5 mg INHALATION RT-TID 11/06/22 12/20/22 History Nebulized] Budesonide 0.5 mg INHALATION RT-BID 11/06/22 12/20/22 History Cetirizine HCl [Zyrtec] 10 mg PO DAILY 11/06/22 12/20/22 History Folic Acid 1 mg PO DAILY 11/06/22 12/20/22 History Sodium Zirconium Cyclosilicate 10 gm PO DAILY@1400 11/06/22 12/20/22 History [Lokelma] guaiFENesin [guaiFENesin ER] 600 mg PO BID 11/06/22 12/20/22 History Magnesium Oxide [Mag-Ox] 400 mg PO BID 30 Days #60 tab 11/10/22 12/20/22 Rx Aspirin EC [Ecotrin Low Dose] 81 mg PO DAILY 12/20/22 12/20/22 History Cholecalciferol [Vitamin D3 (25 50 mcg PO DAILY 12/20/22 12/20/22 History Mcg = 1000 Iu)] Doxazosin [Cardura] 4 mg PO HS 12/20/22 12/20/22 History polyethylene glycoL 3350 [Miralax] 17 gm PO DAILY 12/20/22 12/20/22 History Allergies Allergy/AdvReac Type Severity Reaction Status Date / Time cefepime Allergy SHUT DOWN Verified 12/20/22 13:37 KIDNEYS ether Allergy Anaphylaxis Verified 12/20/22 13:37 Iodinated Contrast Media Allergy PAST Verified 12/20/22 13:37 [Iodinated Contrast Media - HISTORY OF Oral and] KIDNEY PROBLEMS venom-honey bee Allergy Anaphylaxis Verified 12/20/22 13:37 sulfamethoxazole AdvReac states Verified 12/20/22 13:37 [From Bactrim] effects kidneys trimethoprim [From Bactrim] AdvReac states Verified 12/20/22 13:37 effects kidneys Physical Exam Vitals: Vital Signs Temp Pulse Pulse Resp BP Pulse Ox 12/23/22 09:09 80 12/23/22 08:59 79 12/23/22 06:57 98.2 F 79 16 122/68 96 12/23/22 01:15 98.2 F 77 18 92/49 100 12/22/22 21:17 80 12/22/22 21:02 80 12/22/22 20:00 16 12/22/22 19:41 98.3 F 79 16 111/57 99 12/22/22 16:23 76 12/22/22 16:15 68 12/22/22 13:20 97.8 F 65 18 106/61 99 12/22/22 12:28 80 12/22/22 12:19 80 Intake and Output 12/22/22 12/23/22 12/23/22 22:59 06:59 14:59 Intake Total 100 Output Total 250 Balance -150 Intake: Intake, IV Titration 100 Amount Piperacillin-Tazobactam 3 100 .375 gm In Sodium Chloride 0.9% 100 ml @ 25 mls/hr IVPB Q8HR [facility] Rx# :[id number] Output: Urine 250 Other: # Voids 1 0 Results - Lab Results Most recent lab results Calcium 8.5 mg/dL (8.4-10.2) 12/22/22 14:12 Magnesium 1.9 mg/dL (1.6-2.3) 12/20/22 11:05 12/21/22 04:17 12/22/22 14:12 Assessment and Plan Plan: Assessment: 1. Chronic kidney disease stage IIIa/B with baseline creatinine near 1.5 secon domenica to non-recovered ATN, multiple acute kidney injury episodes as well as inhaled tobramycin. Creatinine 1.4-1.7 this admission. 2. Pneumonia on antibiotics. 3. Chronic hyperkalemia maintained on lokelma. 4. Anemia of chronic kidney disease. Receiving IV iron. Hematology following. 5. History of colonic perforation with recent reversal of colostomy in November 2022. 6. Moderate tricuspid regurgitation. 7. History of right renal lesion versus cyst. Patient states intervention was done at [facility]. Plan: Encourage oral intake. Avoid nephrotoxins. Add Aranesp. Continue to monitor renal function and urine output. Thank you for the consultation. I will continue to follow the patient with you during his hospital stay.
[2022-12-23] MEDS ORDERED: DARBEPOETIN ALFA 40 MCG/0.4 ML SYRINGE SQ SCH (12:00)
[2022-12-23] MEDS: SODIUM ZIRCONIUM CYCLOSILICATE 10 GM PACKET PO SCH (14:27)
--- NOTE | 2022-12-23 17:56 | P.CONS ---
History of Present Illness - Reason for Consult Consult date: 12/23/22 anemia Requesting physician: Brodie Cervantes - Chief Complaint MARTA - History of Present Illness Mr. Chavez is a male pt of Dr. Lopez, referred to him for Hx iron deficiency an emia. Pt has Hx pseudomonas colonization of a bronchial stent in 2021. Around that same time he developed diverticulitis and fistula which required surgery and creation of colostomy. He subsequently became anemic, in part related to iron deficiency and in part related to chronic kidney disease. He was treated with parenteral iron and TEOFILO, this treatment was initiated in [place]. Also, Hx rt lung NSCLC, Tx with SBRT in [facility]. He cont care here, Dr. Lopez for anemia and Dr. Cortez for NSCLC. Earlier this year he had surgery for bowel obstruction. He then has revision of colostomy 08/2022 to ileostomy, then reversal more recently. Found to have pseudomous colonization of bronchial stent again, prolonged abx course that caused a degree of kidney injury. Last procrit 10/15/22. Hgb 11.6 on 10/29, TEOFILO held since, has not been seen in ofc since end of October. Pt is inpt now for SOB, cough also non-healing ulceration of the abd. Most recent Hgb 7.5, iron saturation adequate at 36%, ferritin 522, B12 and folate normal. Pt has no acute physical c/o when seen. He is inquiring about getting back on his TEOFILO injections. Review of Systems 10 point ROS is neg except as stated in HPI Past Medical History Past Medical History: Blood Disorder, Cancer, COPD, Deep Vein Thrombosis (DVT), GERD/Reflux, Hypertension, Pneumonia, Renal Disease Additional Past Medical History / Comment(s): hx of pseudomonus lung infection, uses CPAP not for sleep apnea, O2 prn 2l prn, diverticulits, Factor V Leiden, hx of bronchial silicone stent now removed, PICC line in past now removed, past hx dialysis for kidney damage, none currently, Stage 3 renal disease, Lung cancer - diagnosed and treated down in [place], colostomy with reversal, hernia repair History of Any Multi-Drug Resistant Organisms: MRSA, Other MDRO Year Discovered:: 08/30/21-MRSA MDRO Source:: Sputum-MDRO & MRSA Past Surgical History: Hernia Repair, Tonsillectomy Additional Past Surgical History / Comment(s): bronchoscopy, bronchial silicone stent, now removed, fatty tumor removed from chest area, COLONOSCOPY, alexandre cataract, hernia repair, ileostomy/colostomy reversal Past Anesthesia/Blood Transfusion Reactions: Previous Problems w/ Anesthesia Additional Past Anesthesia/Blood Transfusion Reaction / Comm: "as infant turned black and blue from ETHER". FACTOR V LEIDEN Past Psychological History: Anxiety Smoking Status: Former smoker Past Alcohol Use History: None Reported Additional Past Alcohol Use History / Comment(s): STARTED SMOKING AT AGE 14, QUIT SMOKING 2012 Past Drug Use History: None Reported - Past Family History Father Family Medical History: Cancer Additional Family Medical History / Comment(s): colon cancer Mother Family Medical History: Cancer Additional Family Medical History / Comment(s): leukemia Medications and Allergies Home Medications Medication Instructions Recorded Confirmed Type Montelukast Sodium [Singulair] 10 mg PO HS 01/24/14 12/20/22 History Metoprolol Tartrate [Lopressor] 25 mg PO BID 07/25/16 12/20/22 History L.acidoph,Paracasei, B.lactis 1 cap PO DAILY 09/01/18 12/20/22 History [Probiotic] allopurinoL [Zyloprim] 100 mg PO HS 11/21/19 12/20/22 History Albuterol Sulfate [Ventolin HFA] 2 puff INHALATION RT-QID PRN 10/21/21 12/20/22 History Fluticasone/Umeclidin/Vilanter 1 puff INHALATION RT-DAILY 10/21/21 12/20/22 History [Trelegy Ellipta 100-62.5-25] Cyanocobalamin (Vitamin B-12) 1,000 mcg PO DAILY 07/02/22 12/20/22 History [Vitamin B-12] Sodium Bicarbonate Tab 650 mg PO BID #60 tab 07/04/22 12/20/22 Rx Famotidine [Pepcid] 20 mg PO DAILY 07/11/22 12/20/22 History ALPRAZolam [Xanax] 0.5 mg PO HS 11/06/22 12/20/22 History Albuterol Nebulized [Ventolin 2.5 mg INHALATION RT-TID 11/06/22 12/20/22 History Nebulized] Budesonide 0.5 mg INHALATION RT-BID 11/06/22 12/20/22 History Cetirizine HCl [Zyrtec] 10 mg PO DAILY 11/06/22 12/20/22 History Folic Acid 1 mg PO DAILY 11/06/22 12/20/22 History Sodium Zirconium Cyclosilicate 10 gm PO DAILY@1400 11/06/22 12/20/22 History [Lokelma] guaiFENesin [guaiFENesin ER] 600 mg PO BID 11/06/22 12/20/22 History Magnesium Oxide [Mag-Ox] 400 mg PO BID 30 Days #60 tab 11/10/22 12/20/22 Rx Aspirin EC [Ecotrin Low Dose] 81 mg PO DAILY 12/20/22 12/20/22 History Cholecalciferol [Vitamin D3 (25 50 mcg PO DAILY 12/20/22 12/20/22 History Mcg = 1000 Iu)] Doxazosin [Cardura] 4 mg PO HS 12/20/22 12/20/22 History polyethylene glycoL 3350 [Miralax] 17 gm PO DAILY 12/20/22 12/20/22 History Allergies Allergy/AdvReac Type Severity Reaction Status Date / Time cefepime Allergy SHUT DOWN Verified 12/20/22 13:37 KIDNEYS ether Allergy Anaphylaxis Verified 12/20/22 13:37 Iodinated Contrast Media Allergy PAST Verified 12/20/22 13:37 [Iodinated Contrast Media - HISTORY OF Oral and] KIDNEY PROBLEMS venom-honey bee Allergy Anaphylaxis Verified 12/20/22 13:37 sulfamethoxazole AdvReac states Verified 12/20/22 13:37 [From Bactrim] effects kidneys trimethoprim [From Bactrim] AdvReac states Verified 12/20/22 13:37 effects kidneys Physical Exam Vitals: Vital Signs Temp Pulse Pulse Resp BP Pulse Ox 12/23/22 06:57 98.2 F 79 16 122/68 96 12/23/22 01:15 98.2 F 77 18 92/49 100 12/22/22 21:17 80 12/22/22 21:02 80 12/22/22 20:00 16 12/22/22 19:41 98.3 F 79 16 111/57 99 12/22/22 16:23 76 12/22/22 16:15 68 12/22/22 13:20 97.8 F 65 18 106/61 99 12/22/22 12:28 80 12/22/22 12:19 80 10/16/23 09:31 76 12/22/22 09:22 77 97 Intake and Output 12/22/22 12/23/22 12/23/22 22:59 06:59 14:59 Intake Total 100 Output Total 250 Balance -150 Intake: Intake, IV Titration 100 Amount Piperacillin-Tazobactam 3 100 .375 gm In Sodium Chloride 0.9% 100 ml @ 25 mls/hr IVPB Q8HR [facility] Rx# :[id number] Output: Urine 250 Other: # Voids 1 0 - Constitutional General appearance: average body habitus, cooperative, no acute distress - EENT Eyes: anicteric sclerae, EOMI ENT: hearing grossly normal - Respiratory resp even and unlabored at rest - Cardiovascular skin warm and dry to touch, radial pulse 2+ leg Peripheral Edema: bilateral: None - Integumentary Integumentary: normal - Neurologic Neurologic: CNII-XII intact - Musculoskeletal Musculoskeletal: strength equal bilaterally - Psychiatric Psychiatric: A&O x's 3, appropriate affect, intact judgment & insight Results CBC & Chem 7: 12/21/22 04:17 12/22/22 14:12 Labs: Abnormal Lab Results - Last 24 Hours (Table) 12/22/22 12/22/22 Range/Units 07:02 14:12 BUN 47 H (9-20) mg/dL Creatinine 1.74 H (0.66-1.25) mg/dL Glucose 113 H (74-99) mg/dL TIBC 218 L (228-460) UG/DL Transferrin 156.0 L (204.0-354.0) mg/dL Ferritin 522.0 H (22.0-322.0) ng/mL Vitamin B12 1050.0 H (200.0-944.0) pg/mL Microbiology - Last 24 Hours (Table) 12/20/22 14:15 Blood Culture - Preliminary Blood 12/20/22 14:00 Blood Culture - Preliminary Blood Assessment and Plan (1) Anemia in chronic kidney disease Current Visit: Yes Status: Chronic Priority: Medium Code(s): N18.9 - CHRONIC KIDNEY DISEASE, UNSPECIFIED; D63.1 - ANEMIA IN CHRONIC KIDNEY DISEASE SNOMED Code(s): 004579380 Plan: Anemia of CKD -Pt has not needed TEOFILO since October -Current Iron saturation and ferritin adequate for TEOFILO, no supplementation n eeded at this time -Nephrology has seen pt and restarted TEOFILO -Ofc will contact pt to get him back on the schedule for TEOFILO injections -CBC in AM Hx NSCLC -Pt cont to have scans and f/u with Dr. Dana Zapata Attests: I have seen and examined pt, performed H&P, developed impression and plan of care. Discussed with dictator. Agree with documentation, dictated as a scribe.
--- NOTE | 2022-12-23 19:35 | P.PN ---
Progress Note - Text Progress Note Date: 12/23/22 Chief Complaint: MARTA Patient is a 77-year-old male with a past medical history of COPD on home oxygen 2 L as needed, history of Pseudomonas pneumonia, history of bronchial stent placement/removal, CKD stage III, history of lung cancer, history of DVT, hypertension anxiety and prior history of smoking presents to ER with complaints of worsening shortness of breath. Patient has been having symptoms for the past 4 to 5 days and also having exertional dyspnea. Denies any fever or chills. No complaints of chest pain. Denies any leg swelling. No nausea vomiting abdominal pain or diarrhea. Patient was discharged from hospital on 11/10/2022, admitted due to acute kidney injury and was seen by nephrology. Patient was hydrated and was also on bicarb drip. Patient underwent extensive lysis of adhesions, small bowel resection and repair of incisional hernia on 02/09/2022. Patient states that he had a reversal of ostomy and repair of incisional hernia done on November 14, 2022. On admission chest x-ray showed patchy bibasilar infiltrates/atelectasis with small effusions have increased since prior study. EKG showed sinus rhythm with frequent ventricular premature complexes. Laboratory data showed WBC 6.9 hemoglobin 8.9 platelets 290, sodium 136 potassium 4.9 chloride 102 bicarb is 27 BUN 42 and creatinine 1.42 Liver enzymes are not elevated. Troponin 0.012 and proBNP 3100 and albumin 3.3. 12/21/2022: Sitting at the edge of the bed. Some cough. Does have 2 L of oxygen and at home. On antibiotics bronchodilators. Did tolerate some diet. December 22: Does bring up some sputum when he lies down. For his midline abdominal ulceration wound care and ID consulted. Also consultation to nephrology and. Oral intake good. December 23: Breathing better. Seen by multiple consultants. Getting iron supplementation. IV Zosyn. Breathing better. Has been out of bed. Continue with IV Zosyn. Blood cultures negative until now. Eating well Active Medications Albuterol Sulfate (Albuterol Nebulized 2.5 Mg/3 Ml) 2.5 mg INHALATION RT-Q2H PRN PRN Reason: Shortness Of Breath Or Wheezing Albuterol/Ipratropium (Ipratropium-Albuterol 3 Ml Neb) 3 ml INHALATION RT-QID [facility] Last Admin: 12/23/22 16:10 Dose: 3 ml Allopurinol (Allopurinol 100 Mg Tab) 100 mg PO HS [facility] Last Admin: 12/22/22 20:37 Dose: 100 mg Alprazolam (Alprazolam 0.5 Mg Tab) 0.5 mg PO HS [facility] Last Admin: 12/22/22 20:39 Dose: 0.5 mg Aspirin (Aspirin 81 Mg) 81 mg PO DAILY [facility] Last Admin: 12/23/22 09:00 Dose: 81 mg Budesonide (Budesonide 0.5 Mg/2 Ml Nebu) 0.5 mg INHALATION RT-BID [facility] Last Admin: 12/23/22 08:58 Dose: 0.5 mg Cyanocobalamin (Cyanocobalamin 500 Mcg Tab) 1,000 mcg PO DAILY [facility] Last Admin: 12/23/22 09:00 Dose: 1,000 mcg Darbepoetin Bobby (Darbepoetin Bobby 40 Mcg/0.4 Ml Syringe) 40 mcg SQ Q7D [facility] Last Admin: 12/23/22 13:42 Dose: 40 mcg Doxazosin Mesylate (Doxazosin 4 Mg Tab) 4 mg PO HS [facility] Last Admin: 12/22/22 20:38 Dose: 4 mg Famotidine (Famotidine 20 Mg Tab) 20 mg PO DAILY [facility] Last Admin: 12/23/22 09:00 Dose: 20 mg Folic Acid (Folic Acid 1 Mg Tab) 1 mg PO DAILY [facility] Last Admin: 12/23/22 09:00 Dose: 1 mg Guaifenesin (Guaifenesin 600 Mg Tablet.Er) 600 mg PO Q12HR [facility] Last Admin: 12/23/22 09:00 Dose: 600 mg Heparin Sodium (Porcine) (Heparin Sodium,Porcine 5,000 Unit/Ml 1 Ml Vial) 5,000 unit SQ Q8HR [facility] Last Admin: 12/23/22 15:52 Dose: 5,000 unit Piperacillin Sod/Tazobactam (Sod 3.375 gm/ Sodium Chloride) 100 mls @ 25 mls/hr IVPB Q8HR [facility]; Protocol Stop: 12/25/22 00:01 Last Admin: 12/23/22 15:53 Dose: 25 mls/hr Ferric Sodium Gluconate 125 mg (/ Sodium Chloride) 110 mls @ 100 mls/hr IVPB DAILY [facility] Stop: 12/24/22 10:05 Last Admin: 12/23/22 09:24 Dose: 100 mls/hr Magnesium Oxide (Magnesium Oxide 400 Mg Tab) 400 mg PO BID [facility] Last Admin: 12/23/22 09:00 Dose: 400 mg Metoprolol Tartrate (Metoprolol Tartrate 25 Mg Tab) 25 mg PO BID [facility] Last Admin: 12/23/22 09:00 Dose: 25 mg Miscellaneous Information (Pneumonia Protocol Utilized 1 Each Misc) 1 each PO ONCE PRN PRN Reason: Per Protocol Montelukast Sodium (Montelukast 10 Mg Tab) 10 mg PO HS [facility] Last Admin: 12/22/22 20:38 Dose: 10 mg Polyethylene Glycol (Polyethylene Glycol 3350 17 Gm Powd.Pack) 17 gm PO DAILY [facility] Last Admin: 12/23/22 09:00 Dose: 17 gm Sodium Bicarbonate (Sodium Bicarbonate Tab 650 Mg Tab) 650 mg PO BID [facility] Last Admin: 12/23/22 09:00 Dose: 650 mg Sodium Zirconium Cyclosilicate (Sodium Zirconium Cyclosilicate 10 Gm Packet) 10 gm PO DAILY@1400 [facility] Last Admin: 12/23/22 14:27 Dose: 10 gm Past Medical History Past Medical History: Blood Disorder, Cancer, COPD, Deep Vein Thrombosis (DVT), GERD/Reflux, Hypertension, Pneumonia, Renal Disease Additional Past Medical History / Comment(s): hx of pseudomonus lung infection, uses CPAP not for sleep apnea, O2 prn 2l prn, diverticulits, Factor V Leiden, hx of bronchial silicone stent now removed, PICC line in past now removed, past hx dialysis for kidney damage, none currently, Stage 3 renal disease, Lung cancer - diagnosed and treated down in [place], Colostomy, hernia repair History of Any Multi-Drug Resistant Organisms: MRSA, Other MDRO Date of last positivie culture/infection: 08/30/21-MRSA MDRO Source:: Sputum-MDRO & MRSA Past Surgical History: Hernia Repair, Tonsillectomy Additional Past Surgical History / Comment(s): bronchoscopy, bronchial silicone stent, now removed, fatty tumor removed from chest area, COLONOSCOPY, alexandre cataract, hernia repair, ileostomy Past Anesthesia/Blood Transfusion Reactions: Previous Problems w/ Anesthesia Additional Past Anesthesia/Blood Transfusion Reaction / Comment(s): "as turned black and blue from ETHER". FACTOR V LEIDEN Past Psychological History: Anxiety Smoking Status: Former smoker Past Alcohol Use History: None Reported Past Drug Use History: None Reported - Past Family History Father Family Medical History: Cancer Additional Family Medical History / Comment(s): colon cancer Mother Family Medical History: Cancer Additional Family Medical History / Comment(s): leukemia On examination: VITAL SIGNS: [8.3, 74, 16, 100/58, GENERAL APPEARANCE: Reclining in bed, comfortable HEENT: Normal external appearance of nose and ear. Oral cavity normal EYES: Pupils equal. Conjunctiva normal. NECK: JVD not raised. Mass not palpable. RESPIRATORY: Respiratory effort increase. His breath sounds or wheezing CARDIOVASCULAR: First and second sounds normal. No edema. ABDOMEN: Soft. Liver and spleen not palpable. No tenderness. No mass palpable. Postop incision wound. PSYCHIATRY: Alert and oriented x3. Mood and affect normal. INVESTIGATIONS, reviewed in the clinical context: December 22: Potassium 4 BUN 47 creatinine is 1.74 I a KEN TIBC 218 transferrin 156 ferritin 522. B12 1050. Folate greater than 20. Chest x-ray film personally reviewed by me-small bilateral effusion. Possible basis this letter opacities. December 21: White count 4.4 hemoglobin 7.5 platelets 298 potassium 5. 45 crit and 1.7. Procalcitonin 0.40 Prior labs: 08/06/2022: Creatinine 1.7 11/07/2022: Hemoglobin 10.1 Assessment and plan: Bibasilar infiltrates/atelectasis with small pleural effusions. Possible pneumonia versus acute CHF. EF not known. -IV Zosyn and azithromycin. Acute hypoxic respiratory failure -On oxygen Chronic kidney disease stage III baseline creatinine level -Creatinine 1.7 on July 2022 Suspect anemia of chronic kidney disease. I indifferent deficiency anemia. , B12, folate: Normal IV Ferrlecit Chronic hyperkalemia from underlying CK D -Continue Lokeloh Recent history of reversal of colostomy and umbilical hernia repair on 11/14/2022. -On laxative at home Prior history of Pseudomonas pneumonia Right upper lobe pulmonary nodule. Patient had PET scan and was treated with SBRT Abdominal wall wound from incision. [History of colonic perforation requiring colectomy and colostomy] -Wound care/ID-local wound care Obstructive sleep apnea not on CPAP COPD in a previous smoker -DuoNeb Chronic hypoxic respiratory failure -on home oxygen 2 L History of DVT Essential Hypertension -pressor 25 mg twice a day Anxiety IV Zosyn. IV Ferrlecit. Increase activity. Doing better.
[2022-12-23] MEDS: DOXAZOSIN 4 MG TAB PO SCH (22:25)
[2022-12-23] MEDS: MONTELUKAST 10 MG TAB PO SCH (22:26)
[2022-12-23] MEDS: ALPRAZolam 0.5 MG TAB PO SCH (22:26)
[2022-12-23] MEDS: allopurinoL 100 MG TAB PO SCH (22:26)
--- NOTE | 2022-12-23 22:26 | CT ---
EXAMINATION TYPE: CT ChestAbdPelvis wo con DATE OF EXAM: 12/23/2022 INDICATION: pnumonia COMPARISON: PET/CT 08/09/2022 CT DLP: 512.1 mGycm CONTRAST: Performed without Oral Contrast. TECHNIQUE: Axial images at 5 mm thick sections. Reconstructed images in the coronal plane. Delayed images through the kidneys. FINDINGS: CT CHEST: Portion of the thyroid visualized is normal. Minimal infiltrate is within the lung bases. Small bilateral pleural effusions are present. Pneumonia and compressive atelectasis should be considered. There is a lung nodule in the posterior lateral right lung measuring 1.9 cm. This was present on the PET/CT. Small bilateral pleural effusions are present. Scattered small lymph nodes are within the mediastinum . No enlarged mediastinal or hilar adenopathy is evident. The ascending thoracic aorta is main pulmonary artery is 4.5 cm. The main pulmonary artery diameter at the bifurcation is 3.[address] ABDOMEN: Liver: Multiple cysts remain present within the liver. Spleen: Normal Pancreas: Normal Adrenal glands: The adrenal glands are normal. Gallbladder: Normal Kidneys: No masses are evident. No hydronephrosis is present. No cysts are present. No renal stone s are evident. Aorta: Vascular calcification is within the aorta. Inferior vena cava: Normal. CT PELVIS: Loops of bowel within the abdomen and pelvis are normal. There are loops of bowel which are incom pletely distended or lack oral contrast limiting their evaluation. Appendix: Not identified. Surgical clips are present. There may be a prior appendectomy. Urinary bladder: Normal. Genitourinary structures: Prostate contains calcification slightly prominent. Osseous structures: No suspicious lytic or sclerotic lesions. Scoliosis through the lumbar spine. De generative joint changes are noted of bilateral hips. IMPRESSION: 1. Small bilateral pleural effusions with adjacent infiltrates. Atelectasis and pneumonia could be co nsidered. 2. Hepatic cysts. 3. Right lower lobe lung nodule, present previously. 4. Ascending thoracic aortic aneurysm of 4.5 cm.
[2022-12-24 07:27] LABS: African American GFR (CKD) 40 (>60 ml/min/1.73 sqM); Anion Gap 3 mmol/L; Blood Urea Nitrogen 34 mg/dL (9-20); Calcium 8.4 mg/dL (8.4-10.2); Carbon Dioxide 29 mmol/L (22-30); Chloride 106 mmol/L (98-107); Glucose 78 mg/dL (74-99); Non-African American GFR(CKD) 34 (>60 ml/min/1.73 sqM); Sodium 138 mmol/L (137-145)
[2022-12-24] MEDS: HEPARIN SODIUM,PORCINE 5,000 UNIT/ML 1 ML VIAL SQ SCH ×2 (07:50→16:00)
[2022-12-24] MEDS: PIPERACILLIN-TAZOBACTAM 3.375 GM in SODIUM CHLORIDE 0.9% 100 ML IVPB SCH ×2 (07:50→16:00)
[2022-12-24] MEDS: polyethylene glycoL 3350 17 GM POWD.PACK PO SCH (07:51)
[2022-12-24] MEDS: ASPIRIN 81 MG PO SCH (07:51)
[2022-12-24] MEDS: FOLIC ACID 1 MG TAB PO SCH (07:51)
[2022-12-24] MEDS: SODIUM BICARBONATE TAB 650 MG TAB PO SCH ×2 (07:51→20:28)
[2022-12-24] MEDS: MAGNESIUM OXIDE 400 MG TAB PO SCH ×2 (07:51→20:28)
[2022-12-24] MEDS: FAMOTIDINE 20 MG TAB PO SCH (07:51)
[2022-12-24] MEDS: guaiFENesin 600 MG TABLET.ER PO SCH ×2 (07:51→20:28)
[2022-12-24] MEDS: CYANOCOBALAMIN 500 MCG TAB PO SCH (07:51)
[2022-12-24] MEDS: METOPROLOL TARTRATE 25 MG TAB PO SCH ×2 (07:51→20:28)
[2022-12-24] MEDS: IPRATROPIUM-ALBUTEROL 3 ML NEB INHALATION SCH ×4 (08:40→21:31)
[2022-12-24] MEDS: BUDESONIDE 0.5 MG/2 ML NEBU INHALATION SCH (08:40)
[2022-12-24] MEDS: SODIUM FERRIC GLUCONAT-SUCROSE 125 MG in SODIUM CHLORIDE 0.9% 100 ML IVPB SCH (10:07)
[2022-12-24 11:01] LABS: Basophils # (A) 0.03 X 10*3/uL (0.00-0.10); Basophils % (A) 0.5 %; Eosinophils # (A) 0.26 X 10*3/uL (0.04-0.35); Eosinophils % (A) 4.3 %; HCT 23.8 % (39.6-50.0); HGB 7.1 d/dL (13.0-17.0); Lymphocytes # (A) 1.71 X 10*3/uL (0.90-5.00); Lymphocytes % (A) 28.1 %; MCH 28.4 pg (27.0-32.0); MCHC 29.8 d/dL (32.0-37.0); MCV 95.2 FL (80.0-97.0); Mean Platelet Volume 12.3 FL (9.5-12.2); Monocytes # (A) 0.45 X 10*3/uL (0.20-1.00); Monocytes % (A) 7.4 %; NRBC Per 100 WBC 0 X 10*3/uL (0.00-0.01); Neutrophils # (A) 3.62 X 10*3/uL (1.80-7.70); Neutrophils % (A) 59.5 %; Platelet Count 282 X 10*3/uL (140-440); RDW 17.8 % (11.5-14.5); WBC 6.08 X 10*3/uL (4.50-10.00)
--- NOTE | 2022-12-24 11:36 | P.PN ---
Subjective Progress Note Date: 12/23/22 Principal diagnosis: Pneumonia and abdominal wall wound Patient is a 77-year-old male with a past medical history significant for hypertension reflux COPD history of recurrent pseudomonal pneumonia with a last admission to the hospital back in March 2022 patient has been on suppressive tobramycin inhalation that has been interrupted few times because of his kidney function patient is presenting to the hospital for evaluation of increasing shortness of breath and cough, patient chest x-ray with patchy basilar infiltrate concerning for pneumonia, also have an abdominal wound. On today's evaluation that is 12/23/2022, the patient continues to be afebrile the patient is breathing comfortably on 2 L nasal cannula oxygen, the patient denies chest pain, continued to complain of a cough and is bringing up some sputum, patient denies abdominal pain, no nausea/vomiting and no diarrhea Patient did have a creatinine 1.74 no CBC was done today, blood cultures pending sputum culture not collected Objective - Vital Signs Vital signs: Vital Signs Temp 98.2 F 12/23/22 06:57 Pulse 80 12/23/22 09:09 Resp 16 12/23/22 06:57 BP 122/68 12/23/22 06:57 Pulse Ox 96 12/23/22 06:57 FiO2 Intake & Output 12/22/22 12/23/22 12/23/22 18:59 06:59 18:59 Intake Total 100 Output Total 250 Balance 100 -250 Intake: Intake, IV Titration 100 Amount Piperacillin-Tazobactam 3 100 .375 gm In Sodium Chloride 0.9% 100 ml @ 25 mls/hr IVPB Q8HR [facility] Rx# :[id number] Output: Urine 250 Other: # Voids 0 - Exam GENERAL DESCRIPTION: An elderly male lying in bed in no distress RESPIRATORY SYSTEM: Unlabored breathing , coarse basilar sounds bilaterally HEART: S1 S2 regular rate and rhythm , ABDOMEN: Soft , no tenderness EXTREMITIES: No edema feet - Labs CBC & Chem 7: 12/24/22 06:34 12/24/22 06:34 Labs: Abnormal Lab Results - Last 24 Hours (Table) 12/22/22 12/22/22 Range/Units 07:02 14:12 BUN 47 H (9-20) mg/dL Creatinine 1.74 H (0.66-1.25) mg/dL Glucose 113 H (74-99) mg/dL TIBC 218 L (228-460) UG/DL Transferrin 156.0 L (204.0-354.0) mg/dL Ferritin 522.0 H (22.0-322.0) ng/mL Vitamin B12 1050.0 H (200.0-944.0) pg/mL Microbiology - Last 24 Hours (Table) 12/20/22 14:15 Blood Culture - Preliminary Blood 12/20/22 14:00 Blood Culture - Preliminary Blood Assessment and Plan (1) Pneumonia Current Visit: No Status: Acute Code(s): J18.9 - PNEUMONIA, UNSPECIFIED ORGANISM SNOMED Code(s): 805274399 Plan: 1patient presented hospital with increasing shortness of breath cough purulent sputum in this patient with evidence of lower lobe infiltrate and mild elevated procalcitonin concerning for possible gram-negative pneumonia. 2abdominal wall wound with no slough tissue or surrounding erythema we will recommend local wound care with the Aquacel silver dressing change every 48 hour. 3nursing staff has been advised to obtain sputum for Gram stain and culture 4patient to continue with the Zosyn 3.37 g every 8 hours while waiting for the culture to finalize Dictation was produced using [employer] dictation software. please excuse any grammatical, word or spelling errors. Time with Patient: Less than 30
--- NOTE | 2022-12-24 11:39 | P.PN ---
Subjective Progress Note Date: 12/24/22 Principal diagnosis: Pneumonia and abdominal wall wound Patient is a 77-year-old male with a past medical history significant for hypertension reflux COPD history of recurrent pseudomonal pneumonia with a last admission to the hospital back in March 2022 patient has been on suppressive tobramycin inhalation that has been interrupted few times because of his kidney function patient is presenting to the hospital for evaluation of increasing shortness of breath and cough, patient chest x-ray with patchy basilar infiltrate concerning for pneumonia, also have an abdominal wound. On today's evaluation that is 12/24/2022, the patient remains to be afebrile the patient is breathing comfortably on 2 L nasal cannula oxygen, the patient denies chest pain, however surrounding of significant amount of cough and is bringing up sputum unfortunately no sputum has been collected, patient denies nausea/vomiting , no diarrhea however complaining of some abdominal distention today Patient did have a creatinine 1.83 white count is 6.08, blood cultures pending sputum culture not collected Objective - Vital Signs Vital signs: Vital Signs Temp 97.9 F 12/24/22 06:53 Pulse 76 12/24/22 08:59 Resp 18 12/24/22 06:53 BP 140/64 12/24/22 06:53 Pulse Ox 95 12/24/22 06:53 FiO2 Intake & Output 12/23/22 12/24/22 12/24/22 18:59 06:59 18:59 Intake Total 1380 Output Total 2 Balance 1378 Intake: Intake, IV Titration 300 Amount Piperacillin-Tazobactam 3 200 .375 gm In Sodium Chloride 0.9% 100 ml @ 25 mls/hr IVPB Q8HR [facility] Rx# :[id number] Sodium Ferric Gluconat- 100 Sucrose 125 mg In Sodium Chloride 0.9% 100 ml @ 100 mls/hr IVPB DAILY [facility] Rx#:[id number] Oral 1080 Output: Stool 2 Other: # Voids 2 3 - Exam GENERAL DESCRIPTION: An elderly male lying in bed in no distress RESPIRATORY SYSTEM: Unlabored breathing , coarse basilar sounds bilaterally HEART: S1 S2 regular rate and rhythm , ABDOMEN: Soft , no tenderness EXTREMITIES: No edema feet - Labs CBC & Chem 7: 12/24/22 06:34 12/24/22 06:34 Labs: Abnormal Lab Results - Last 24 Hours (Table) 12/24/22 12/24/22 Range/Units 06:34 06:34 RBC 2.50 L (4.40-5.60) X 10*6/uL Hgb 7.1 L (13.0-17.0) d/dL Hct 23.8 L (39.6-50.0) % MCHC 29.8 L (32.0-37.0) d/dL RDW 17.8 H (11.5-14.5) % MPV 12.3 H (9.5-12.2) FL BUN 34 H (9-20) mg/dL Creatinine 1.83 H (0.66-1.25) mg/dL Microbiology - Last 24 Hours (Table) 12/20/22 14:15 Blood Culture - Preliminary Blood 12/20/22 14:00 Blood Culture - Preliminary Blood Assessment and Plan (1) Pneumonia Current Visit: No Status: Acute Code(s): J18.9 - PNEUMONIA, UNSPECIFIED ORGANISM SNOMED Code(s): 228255069 Plan: 1patient presented hospital with increasing shortness of breath cough purulent sputum in this patient with evidence of lower lobe infiltrate and mild elevated procalcitonin concerning for possible gram-negative pneumonia. 2abdominal wall wound with no slough tissue or surrounding erythema we will recommend local wound care with the Aquacel silver dressing change every 48 hour. 3still waiting for the nursing staff to collect obtain sputum for Gram stain and culture , blood cultures so far negative 4patient to continue with the Zosyn 3.37 g every 8 hours while waiting for the culture to finalize, may benefit from resumption of his suppressive tobramycin inhalation if cleared by nephrology Dictation was produced using [employer] dictation software. please excuse any grammatical, word or spelling errors. Time with Patient: Less than 30
--- NOTE | 2022-12-24 11:39 | P.PN ---
Subjective Patient is seen in follow-up for chronic kidney disease. Renal function fairly stable. Denies chest pain or shortness of breath. No vomiting or diarrhea. Vital signs are stable. General: No acute distress. HEENT: Head exam is unremarkable. On nasal cannula. LUNGS: No audible rhonchi or wheezes. HEART: Rate and Rhythm are regular. ABDOMEN: Nontender. EXTREMITITES: No edema. Objective - Vital Signs Vital signs: Vital Signs Temp 97.9 F 12/24/22 06:53 Pulse 76 12/24/22 08:59 Resp 18 12/24/22 06:53 BP 140/64 12/24/22 06:53 Pulse Ox 95 12/24/22 06:53 FiO2 Intake & Output 12/23/22 12/24/22 12/24/22 18:59 06:59 18:59 Intake Total 1380 Output Total 2 Balance 1378 Intake: Intake, IV Titration 300 Amount Piperacillin-Tazobactam 3 200 .375 gm In Sodium Chloride 0.9% 100 ml @ 25 mls/hr IVPB Q8HR [facility] Rx# :[id number] Sodium Ferric Gluconat- 100 Sucrose 125 mg In Sodium Chloride 0.9% 100 ml @ 100 mls/hr IVPB DAILY [facility] Rx#:[id number] Oral 1080 Output: Stool 2 Other: # Voids 2 3 - Labs CBC & Chem 7: 12/24/22 06:34 12/24/22 06:34 Labs: Abnormal Lab Results - Last 24 Hours (Table) 12/24/22 12/24/22 Range/Units 06:34 06:34 RBC 2.50 L (4.40-5.60) X 10*6/uL Hgb 7.1 L (13.0-17.0) d/dL Hct 23.8 L (39.6-50.0) % MCHC 29.8 L (32.0-37.0) d/dL RDW 17.8 H (11.5-14.5) % MPV 12.3 H (9.5-12.2) FL BUN 34 H (9-20) mg/dL Creatinine 1.83 H (0.66-1.25) mg/dL Microbiology - Last 24 Hours (Table) 12/20/22 14:15 Blood Culture - Preliminary Blood 12/20/22 14:00 Blood Culture - Preliminary Blood Assessment and Plan Plan: Assessment: 1. Chronic kidney disease stage IIIa/B with baseline creatinine near 1.5 secondary to non-recovered ATN, multiple acute kidney injury episodes as well as inhaled tobramycin. Creatinine 1.4-1.7 this admission. GFR near baseline. 2. Pneumonia on antibiotics. 3. Chronic hyperkalemia maintained on lokelma. Stable. 4. Anemia of chronic kidney disease. Receiving IV iron. Hematology following. On Aranesp. 5. History of colonic perforation with recent reversal of colostomy in November 2022. 6. Moderate tricuspid regurgitation. 7. History of right renal lesion versus cyst. Patient states intervention was done at [facility]. Plan: Encourage oral intake. Avoid nephrotoxins. Continue to monitor renal function and urine output.
[2022-12-24] MEDS: SODIUM ZIRCONIUM CYCLOSILICATE 10 GM PACKET PO SCH (14:02)
--- NOTE | 2022-12-24 15:58 | P.PN ---
Subjective Progress Note Date: 12/24/22 Principal diagnosis: anemia CKD Patient sitting at the bedside eating his lunch. He denies nausea, has mild shortness of breath with activity, generalized weakness but nothing severe. He denies any bleeding. Objective - Vital Signs Vital signs: Vital Signs Temp 98.0 F 12/24/22 13:37 Pulse 64 12/24/22 13:37 Resp 18 12/24/22 13:37 BP 118/59 12/24/22 13:37 Pulse Ox 97 12/24/22 13:37 FiO2 Intake & Output 12/23/22 12/24/22 12/24/22 18:59 06:59 18:59 Intake Total 1380 Output Total 2 Balance 1378 Intake: Intake, IV Titration 300 Amount Piperacillin-Tazobactam 3 200 .375 gm In Sodium Chloride 0.9% 100 ml @ 25 mls/hr IVPB Q8HR [facility] Rx# :[id number] Sodium Ferric Gluconat- 100 Sucrose 125 mg In Sodium Chloride 0.9% 100 ml @ 100 mls/hr IVPB DAILY [facility] Rx#:[id number] Oral 1080 Output: Stool 2 Other: # Voids 2 3 - Constitutional General appearance: Present: average body habitus, cooperative, no acute distress - EENT Eyes: Present: anicteric sclerae, EOMI ENT: Present: hearing grossly normal - Respiratory Details: Respirations even and unlabored - Cardiovascular Details: Skin warm and dry to the touch, radial pulse 2+ - Integumentary Integumentary: Present: pale - Neurologic Neurologic: Present: CNII-XII intact - Musculoskeletal Musculoskeletal: Present: strength equal bilaterally - Psychiatric Psychiatric: Present: A&O x's 3, appropriate affect, intact judgment & insight - Labs CBC & Chem 7: 12/24/22 06:34 12/24/22 06:34 Labs: Abnormal Lab Results - Last 24 Hours (Table) 12/24/22 12/24/22 Range/Units 06:34 06:34 RBC 2.50 L (4.40-5.60) X 10*6/uL Hgb 7.1 L (13.0-17.0) d/dL Hct 23.8 L (39.6-50.0) % MCHC 29.8 L (32.0-37.0) d/dL RDW 17.8 H (11.5-14.5) % MPV 12.3 H (9.5-12.2) FL BUN 34 H (9-20) mg/dL Creatinine 1.83 H (0.66-1.25) mg/dL Microbiology - Last 24 Hours (Table) 12/20/22 14:15 Blood Culture - Preliminary Blood 12/20/22 14:00 Blood Culture - Preliminary Blood Assessment and Plan (1) Anemia in chronic kidney disease Current Visit: Yes Status: Chronic Priority: Medium Code(s): N18.9 - CHRONIC KIDNEY DISEASE, UNSPECIFIED; D63.1 - ANEMIA IN CHRONIC KIDNEY DISEASE SNOMED Code(s): 084031829 Plan: Anemia of CKD -Pt has not needed TEOFILO since October -Current Iron saturation and ferritin adequate for TEOFILO, no supplementation needed at this time -Nephrology has seen pt and restarted TEOFILO -Ofc will contact pt to get him back on the schedule for TEOFILO injections -Hgb stable Hx NSCLC -Pt cont to have scans and f/u with Dr. Cortez
--- NOTE | 2022-12-24 16:14 | P.PN ---
Subjective Progress Note Date: 12/24/22 This is a pleasant 77-year-old male patient with a known history of chronic kidney disease, post colectomy secondary to perforation and subsequent colostomy with recent reversal, left lower extremity DVT, factor V laden mutation, tracheobronchial malacia, moderate chronic obstructive pulmonary disease, so litary lung nodule status post radiation, history of frequent MRSA and pseudomonas pneumonias. He presented here to the emergency room yesterday after a 2 to three-day history of increasing shortness of breath, cough and congestion. X-ray shows patchy basilar infiltrates and/or atelectasis with sm all effusions. White count 4.4. Hemoglobin 7.5. Platelets 298. Sodium 142. Potassium 5.0. Bicarb 27. BUN 45. Creatinine 1.7. Glucose 158. ProBNP 3100. Pro-calcitonin 0.40. He is seen today in consultation on the regular medical floor. He is up ambulating in his room. Awake and alert in no acute distress. Maintaining O2 saturations in the 90s on 2 L/m per nasal cannula. He is afebri le. Hemodynamically stable. The patient is seen today 12/22/2022 in follow-up on the regular medical floor. He is awake and alert in no acute distress. Up ambulating to his bathroom. Maintaining O2 saturations up to 99% on 2 L/m per nasal cannula. He is afebrile. Hemodynamically stable. Blood cultures pending. Sodium 138. Potassium 4.2. Bicarb 25. BUN 47. Creatinine 1.74. Glucose 113. Pro- calcitonin 0.40. He remains on DuoNeb inhalations, Pulmicort inhalations, Mucinex, Singulair. Continued on Zosyn. Heparin for DVT prophylaxis. The patient is seen today 12/23/2022 in follow-up on the regular medical floor. He is currently resting comfortably in bed. Awake and alert in no acute distress. He is maintaining O2 saturations in the 90s on 2 L/m per nasal cannula. His pro calcitonin was 0.40. Blood cultures reveal no growth. He is receiving iron replacement therapy. He remains on bronchodilators, Singulair, Mucinex. Antibiotics in the form of Zosyn. Heparin for DVT prophylaxis. The patient is seen today 12/24/2022 in follow-up on the regular medical floor. He is sitting up at the bedside. Awake and alert in no acute distress. Maintaining good O2 saturations in the 90s on 2 L/m per nasal cannula. Afebrile. Chest abdomen and pelvis performed yesterday revealed small bilateral pleural effusions with adjacent infiltrates. Atelectasis and pneumonia could be considered. Hepatic cyst. Right lower lobe lung nodule previously seen. Ascending thoracic aortic aneurysm of 4.5 cm. Blood cultures reveal no growth. White count 6.0. Hemoglobin 7.1. Sodium 138. Potassium 4.0. Bicarb 29. BUN 34. Creatinine 1.83. Glucose 78. He remains on bronchodilators, Singulair, Mucinex. Antibiotics in the form of Zosyn. Heparin for DVT prophylaxis. Objective - Vital Signs Vital signs: Vital Signs Temp 98.0 F 12/24/22 13:37 Pulse 75 12/24/22 16:06 Resp 18 12/24/22 13:37 BP 118/59 12/24/22 13:37 Pulse Ox 97 12/24/22 13:37 FiO2 Intake & Output 12/23/22 12/24/22 12/24/22 18:59 06:59 18:59 Intake Total 1380 Output Total 2 Balance 1378 Intake: Intake, IV Titration 300 Amount Piperacillin-Tazobactam 3 200 .375 gm In Sodium Chloride 0.9% 100 ml @ 25 mls/hr IVPB Q8HR [facility] Rx# :[id number] Sodium Ferric Gluconat- 100 Sucrose 125 mg In Sodium Chloride 0.9% 100 ml @ 100 mls/hr IVPB DAILY [facility] Rx#:[id number] Oral 1080 Output: Stool 2 Other: # Voids 2 3 - Exam GENERAL EXAM: Alert, pleasant 77-year-old male, on 2 L nasal cannula, comfortable in no apparent distress. HEAD: Normocephalic. EYES: Normal reaction of pupils, equal size. NOSE: Clear with pink turbinates. THROAT: No erythema or exudates. NECK: No masses, no JVD. CHEST: No chest wall deformity. LUNGS: Equal air entry with scattered rhonchi. CVS: S1 and S2 normal with no audible murmur, regular rhythm. ABDOMEN: Dressing/binder in place. No hepatosplenomegaly, normal bowel sounds, no guarding or rigidity. SPINE: No scoliosis or deformity SKIN: No rashes CENTRAL NERVOUS SYSTEM: No focal deficits, tone is normal in all 4 extremities. EXTREMITIES: There is no peripheral edema. No clubbing, no cyanosis. Peripheral pulses are intact. - Labs CBC & Chem 7: 12/24/22 06:34 12/24/22 06:34 Labs: Abnormal Lab Results - Last 24 Hours (Table) 12/24/22 12/24/22 Range/Units 06:34 06:34 RBC 2.50 L (4.40-5.60) X 10*6/uL Hgb 7.1 L (13.0-17.0) d/dL Hct 23.8 L (39.6-50.0) % MCHC 29.8 L (32.0-37.0) d/dL RDW 17.8 H (11.5-14.5) % MPV 12.3 H (9.5-12.2) FL BUN 34 H (9-20) mg/dL Creatinine 1.83 H (0.66-1.25) mg/dL Microbiology - Last 24 Hours (Table) 12/20/22 14:15 Blood Culture - Preliminary Blood 12/20/22 14:00 Blood Culture - Preliminary Blood Assessment and Plan Assessment: Acute hypoxic respiratory failure secondary to acute exacerbation of chronic obstructive pulmonary disease with bibasilar opacities. Pro calcitonin 0.40. Currently on Zosyn. Previous history of multiple pneumonias from pseudomonas, MRSA, E. coli History of right upper lobe pulmonary nodule with previous radiation, being monitored in the outpatient setting History of perforated colon requiring colectomy and colostomy and subsequent r ecent reversal Chronic kidney disease Acute on chronic anemia, iron deficiency Tracheobronchomalacia Factor V Leiden mutation Hypertension History of anxiety History of dysphagia Plan: The patient was seen and evaluated Computed tomography scan, labs, medications reviewed Continue Zosyn, bronchodilators Titrate the FiO2 as tolerated Increase his activity as tolerated We will continue to follow I have personally seen and examined the patient, performed the documentation and the assessment and plan as written. Number of minutes spent on the visit: 10.
--- NOTE | 2022-12-24 20:23 | P.PN ---
Progress Note - Text Progress Note Date: 12/24/22 Chief Complaint: MARTA Patient is a 77-year-old male with a past medical history of COPD on home oxygen 2 L as needed, history of Pseudomonas pneumonia, history of bronchial stent placement/removal, CKD stage III, history of lung cancer, history of DVT, hypertension anxiety and prior history of smoking presents to ER with complaints of worsening shortness of breath. Patient has been having symptoms for the past 4 to 5 days and also having exertional dyspnea. Denies any fever or chills. No complaints of chest pain. Denies any leg swelling. No nausea vomiting abdominal pain or diarrhea. Patient was discharged from hospital on 11/10/2022, admitted due to acute kidney injury and was seen by nephrology. Patient was hydrated and was also on bicarb drip. Patient underwent extensive lysis of adhesions, small bowel resection and repair of incisional hernia on 02/09/2022. Patient states that he had a reversal of ostomy and repair of incisional hernia done on November 14, 2022. On admission chest x-ray showed patchy bibasilar infiltrates/atelectasis with small effusions have increased since prior study. EKG showed sinus rhythm with frequent ventricular premature complexes. Laboratory data showed WBC 6.9 hemoglobin 8.9 platelets 290, sodium 136 potassium 4.9 chloride 102 bicarb is 27 BUN 42 and creatinine 1.42 Liver enzymes are not elevated. Troponin 0.012 and proBNP 3100 and albumin 3.3. 12/21/2022: Sitting at the edge of the bed. Some cough. Does have 2 L of oxygen and at home. On antibiotics bronchodilators. Did tolerate some diet. December 22: Does bring up some sputum when he lies down. For his midline abdominal ulceration wound care and ID consulted. Also consultation to nephrology and. Oral intake good. December 23: Breathing better. Seen by multiple consultants. Getting iron supplementation. IV Zosyn. Breathing better. Has been out of bed. Continue with IV Zosyn. Blood cultures negative until now. Eating well December 24: Very limited clear sputum. Eating well. On IV Zosyn. Overall feeling much better. Discussed with patient. Active Medications Albuterol/Ipratropium (Ipratropium-Albuterol 3 Ml Neb) 3 ml INHALATION RT-QID [facility] Last Admin: 12/24/22 15:55 Dose: 3 ml Allopurinol (Allopurinol 100 Mg Tab) 100 mg PO HS [facility] Last Admin: 12/23/22 22:26 Dose: 100 mg Alprazolam (Alprazolam 0.5 Mg Tab) 0.5 mg PO HS [facility] Last Admin: 12/23/22 22:26 Dose: 0.5 mg Aspirin (Aspirin 81 Mg) 81 mg PO DAILY [facility] Last Admin: 12/24/22 07:51 Dose: 81 mg Cyanocobalamin (Cyanocobalamin 500 Mcg Tab) 1,000 mcg PO DAILY [facility] Last Admin: 12/24/22 07:51 Dose: 1,000 mcg Darbepoetin Bobby (Darbepoetin Bobby 40 Mcg/0.4 Ml Syringe) 40 mcg SQ Q7D [facility] Last Admin: 12/23/22 13:42 Dose: 40 mcg Doxazosin Mesylate (Doxazosin 4 Mg Tab) 4 mg PO HS [facility] Last Admin: 12/23/22 22:25 Dose: 4 mg Famotidine (Famotidine 20 Mg Tab) 20 mg PO DAILY [facility] Last Admin: 12/24/22 07:51 Dose: 20 mg Folic Acid (Folic Acid 1 Mg Tab) 1 mg PO DAILY [facility] Last Admin: 12/24/22 07:51 Dose: 1 mg Guaifenesin (Guaifenesin 600 Mg Tablet.Er) 600 mg PO Q12HR [facility] Last Admin: 12/24/22 07:51 Dose: 600 mg Heparin Sodium (Porcine) (Heparin Sodium,Porcine 5,000 Unit/Ml 1 Ml Vial) 5,000 unit SQ Q8HR [facility] Last Admin: 12/24/22 16:00 Dose: 5,000 unit Piperacillin Sod/Tazobactam (Sod 3.375 gm/ Sodium Chloride) 100 mls @ 25 mls/hr IVPB Q8HR [facility]; Protocol Stop: 12/25/22 00:01 Last Admin: 12/24/22 16:00 Dose: 25 mls/hr Magnesium Oxide (Magnesium Oxide 400 Mg Tab) 400 mg PO BID [facility] Last Admin: 12/24/22 07:51 Dose: 400 mg Metoprolol Tartrate (Metoprolol Tartrate 25 Mg Tab) 25 mg PO BID [facility] Last Admin: 12/24/22 07:51 Dose: 25 mg Miscellaneous Information (Pneumonia Protocol Utilized 1 Each Misc) 1 each PO ONCE PRN PRN Reason: Per Protocol Montelukast Sodium (Montelukast 10 Mg Tab) 10 mg PO HS [facility] Last Admin: 12/23/22 22:26 Dose: 10 mg Polyethylene Glycol (Polyethylene Glycol 3350 17 Gm Powd.Pack) 17 gm PO DAILY [facility] Last Admin: 12/24/22 07:51 Dose: 17 gm Sodium Bicarbonate (Sodium Bicarbonate Tab 650 Mg Tab) 650 mg PO BID [facility] Last Admin: 12/24/22 07:51 Dose: 650 mg Sodium Zirconium Cyclosilicate (Sodium Zirconium Cyclosilicate 10 Gm Packet) 10 gm PO DAILY@1400 [facility] Last Admin: 12/24/22 14:02 Dose: 10 gm Past Medical History Past Medical History: Blood Disorder, Cancer, COPD, Deep Vein Thrombosis (DVT), GERD/Reflux, Hypertension, Pneumonia, Renal Disease Additional Past Medical History / Comment(s): hx of pseudomonus lung infection, uses CPAP not for sleep apnea, O2 prn 2l prn, diverticulits, Factor V Leiden, hx of bronchial silicone stent now removed, PICC line in past now removed, past hx dialysis for kidney damage, none currently, Stage 3 renal disease, Lung cancer - diagnosed and treated down in [place], Colostomy, hernia repair History of Any Multi-Drug Resistant Organisms: MRSA, Other MDRO Date of last positivie culture/infection: 08/30/21-MRSA MDRO Source:: Sputum-MDRO & MRSA Past Surgical History: Hernia Repair, Tonsillectomy Additional Past Surgical History / Comment(s): bronchoscopy, bronchial silicone stent, now removed, fatty tumor removed from chest area, COLONOSCOPY, laexandre cataract, hernia repair, ileostomy Past Anesthesia/Blood Transfusion Reactions: Previous Problems w/ Anesthesia Additional Past Anesthesia/Blood Transfusion Reaction / Comment(s): "as turned black and blue from ETHER". FACTOR V LEIDEN Past Psychological History: Anxiety Smoking Status: Former smoker Past Alcohol Use History: None Reported Past Drug Use History: None Reported - Past Family History Father Family Medical History: Cancer Additional Family Medical History / Comment(s): colon cancer Mother Family Medical History: Cancer Additional Family Medical History / Comment(s): leukemia On examination: VITAL SIGNS: 98, 64, 18, 118/59, 97% on 2 L GENERAL APPEARANCE: Sitting edge of the bed, eating lunch. HEENT: Normal external appearance of nose and ear. Oral cavity normal EYES: Pupils equal. Conjunctiva normal. NECK: JVD not raised. Mass not palpable. RESPIRATORY: Respiratory effort increase. His breath sounds or wheezing CARDIOVASCULAR: First and second sounds normal. No edema. ABDOMEN: Soft. Liver and spleen not palpable. No tenderness. No mass palpable. Postop incision wound /r dressing and binder. PSYCHIATRY: Alert and oriented x3. Mood and affect normal. INVESTIGATIONS, reviewed in the clinical context: Computed tomography scan chest abdomen pelvis: Hepatic cyst. Ascending thoracic aortic aneurysm 4.5 cm. December 24: White count 6.0 hemoglobin 7.1 platelets 22 potassium 4 BUN 34 creatinine 1.83 December 22: Potassium 4 BUN 47 creatinine is 1.74 I a KEN TIBC 218 transferrin 156 ferritin 522. B12 1050. Folate greater than 20. Chest x-ray film personally reviewed by me-small bilateral effusion. Possible basis this letter opacities. December 21: White count 4.4 hemoglobin 7.5 platelets 298 potassium 5. 45 crit and 1.7. Procalcitonin 0.40 Prior labs: 08/06/2022: Creatinine 1.7 11/07/2022: Hemoglobin 10.1 Assessment and plan: Bibasilar infiltrates/atelectasis with small pleural effusions. Possible pneumonia : Improving -IV Zosyn and azithromycin. Acute hypoxic respiratory failure -On oxygen Chronic kidney disease stage III baseline creatinine level -Creatinine 1.7 on July 2022 Suspect anemia of chronic kidney disease. I indifferent deficiency anemia. , B12, folate: Normal IV Ferrlecit Chronic hyperkalemia from underlying CK D -Continue [facility] Recent history of reversal of colostomy and umbilical hernia repair on 11/14/2022. -On laxative at home Prior history of Pseudomonas pneumonia Right upper lobe pulmonary nodule. Patient had PET scan and was treated with SBRT Abdominal wall wound from incision. [History of colonic perforation requiring colectomy and colostomy] -Wound care/ID-local wound care Obstructive sleep apnea not on CPAP COPD in a previous smoker -DuoNeb Chronic hypoxic respiratory failure -on home oxygen 2 L History of DVT Essential Hypertension -Lopressor 25 mg twice a day Anxiety IV Zosyn. Eating much better. Discussed with patient. Plan for discharge tomorrow.
[2022-12-24] MEDS: allopurinoL 100 MG TAB PO SCH (20:28)
[2022-12-24] MEDS: DOXAZOSIN 4 MG TAB PO SCH (20:28)
[2022-12-24] MEDS: MONTELUKAST 10 MG TAB PO SCH (20:28)
[2022-12-24] MEDS: ALPRAZolam 0.5 MG TAB PO SCH (20:28)
[2022-12-25] MEDS: PIPERACILLIN-TAZOBACTAM 3.375 GM in SODIUM CHLORIDE 0.9% 100 ML IVPB SCH (07:41)
[2022-12-25] MEDS: HEPARIN SODIUM,PORCINE 5,000 UNIT/ML 1 ML VIAL SQ SCH ×2 (07:41→08:45)
[2022-12-25] MEDS: IPRATROPIUM-ALBUTEROL 3 ML NEB INHALATION SCH ×3 (08:24→16:03)
[2022-12-25 08:39] VITALS: BMI 22.8
[2022-12-25] MEDS: SODIUM BICARBONATE TAB 650 MG TAB PO SCH (08:39)
[2022-12-25] MEDS: METOPROLOL TARTRATE 25 MG TAB PO SCH (08:40)
[2022-12-25] MEDS: FAMOTIDINE 20 MG TAB PO SCH (08:40)
[2022-12-25] MEDS: CYANOCOBALAMIN 500 MCG TAB PO SCH (08:40)
[2022-12-25] MEDS: guaiFENesin 600 MG TABLET.ER PO SCH (08:41)
[2022-12-25] MEDS: ASPIRIN 81 MG PO SCH (08:42)
[2022-12-25] MEDS: FOLIC ACID 1 MG TAB PO SCH (08:42)
[2022-12-25] MEDS: MAGNESIUM OXIDE 400 MG TAB PO SCH (08:42)
[2022-12-25] MEDS: polyethylene glycoL 3350 17 GM POWD.PACK PO SCH (08:43)
--- NOTE | 2022-12-25 11:56 | P.PN ---
Subjective Patient is seen in follow-up for chronic kidney disease. Renal function fairly stable as of yesterday. Denies chest pain or shortness of breath. No significant cough. No vomiting or diarrhea. Vital signs are stable. General: No acute distress. HEENT: Head exam is unremarkable. On nasal cannula. LUNGS: No audible rhonchi or wheezes. HEART: Rate and Rhythm are regular. ABDOMEN: Nontender. EXTREMITITES: No edema. Objective - Vital Signs Vital signs: Vital Signs Temp 98.3 F 12/25/22 07:26 Pulse 72 12/25/22 11:49 Resp 19 12/25/22 09:18 BP 152/75 12/25/22 07:26 Pulse Ox 97 12/25/22 06:40 FiO2 Intake & Output 12/24/22 12/25/22 12/25/22 18:59 06:59 18:59 Intake Total 300 Output Total 400 Balance 300 -400 Weight 62.142 kg Intake: Intake, IV Titration 300 Amount Piperacillin-Tazobactam 3 200 .375 gm In Sodium Chloride 0.9% 100 ml @ 25 mls/hr IVPB Q8HR [facility] Rx# :[id number] Sodium Ferric Gluconat- 100 Sucrose 125 mg In Sodium Chloride 0.9% 100 ml @ 100 mls/hr IVPB DAILY [facility] Rx#:[id number] Output: Urine 400 Other: # Voids 1 2 - Labs CBC & Chem 7: 12/24/22 06:34 12/24/22 06:34 Assessment and Plan Plan: Assessment: 1. Chronic kidney disease stage IIIa/B with baseline creatinine near 1.5 secondary to non-recovered ATN, multiple acute kidney injury episodes as well as inhaled tobramycin. Creatinine 1.4-1.7 this admission. GFR near baseline. 2. Pneumonia on antibiotics. 3. Chronic hyperkalemia maintained on lokelma. Stable. 4. Anemia of chronic kidney disease. Receiving IV iron. Hematology following. On Aranesp. 5. History of colonic perforation with recent reversal of colostomy in November 2022. 6. Moderate tricuspid regurgitation. 7. History of right renal lesion versus cyst. Patient states intervention was done at [facility]. Plan: Encourage oral intake. Avoid nephrotoxins. Continue to monitor renal function and urine output. Follow up outpatient 1-2 weeks post discharge.
[2022-12-25] MEDS ORDERED: FUROSEMIDE 40 MG TAB PO STA (13:29)
[2022-12-25] MEDS: SODIUM ZIRCONIUM CYCLOSILICATE 10 GM PACKET PO SCH (13:38)
[2022-12-25 14:17] VITALS: BP 137/61; PULSE 66; RESP 16; TEMP 98.1
--- NOTE | 2022-12-25 15:16 | P.PN ---
Subjective Progress Note Date: 12/25/22 This is a pleasant 77-year-old male patient with a known history of chronic kidney disease, post colectomy secondary to perforation and subsequent colostomy with recent reversal, left lower extremity DVT, factor V laden mutation, tracheobronchial malacia, moderate chronic obstructive pulmonary disease, so litary lung nodule status post radiation, history of frequent MRSA and pseudomonas pneumonias. He presented here to the emergency room yesterday after a 2 to three-day history of increasing shortness of breath, cough and congestion. X-ray shows patchy basilar infiltrates and/or atelectasis with sm all effusions. White count 4.4. Hemoglobin 7.5. Platelets 298. Sodium 142. Potassium 5.0. Bicarb 27. BUN 45. Creatinine 1.7. Glucose 158. ProBNP 3100. Pro-calcitonin 0.40. He is seen today in consultation on the regular medical floor. He is up ambulating in his room. Awake and alert in no acute distress. Maintaining O2 saturations in the 90s on 2 L/m per nasal cannula. He is afebri le. Hemodynamically stable. The patient is seen today 12/22/2022 in follow-up on the regular medical floor. He is awake and alert in no acute distress. Up ambulating to his bathroom. Maintaining O2 saturations up to 99% on 2 L/m per nasal cannula. He is afebrile. Hemodynamically stable. Blood cultures pending. Sodium 138. Potassium 4.2. Bicarb 25. BUN 47. Creatinine 1.74. Glucose 113. Pro- calcitonin 0.40. He remains on DuoNeb inhalations, Pulmicort inhalations, Mucinex, Singulair. Continued on Zosyn. Heparin for DVT prophylaxis. The patient is seen today 12/23/2022 in follow-up on the regular medical floor. He is currently resting comfortably in bed. Awake and alert in no acute distress. He is maintaining O2 saturations in the 90s on 2 L/m per nasal cannula. His pro calcitonin was 0.40. Blood cultures reveal no growth. He is receiving iron replacement therapy. He remains on bronchodilators, Singulair, Mucinex. Antibiotics in the form of Zosyn. Heparin for DVT prophylaxis. The patient is seen today 12/24/2022 in follow-up on the regular medical floor. He is sitting up at the bedside. Awake and alert in no acute distress. Maintaining good O2 saturations in the 90s on 2 L/m per nasal cannula. Afebrile. Chest abdomen and pelvis performed yesterday revealed small bilateral pleural effusions with adjacent infiltrates. Atelectasis and pneumonia could be considered. Hepatic cyst. Right lower lobe lung nodule previously seen. Ascending thoracic aortic aneurysm of 4.5 cm. Blood cultures reveal no growth. White count 6.0. Hemoglobin 7.1. Sodium 138. Potassium 4.0. Bicarb 29. BUN 34. Creatinine 1.83. Glucose 78. He remains on bronchodilators, Singulair, Mucinex. Antibiotics in the form of Zosyn. Heparin for DVT prophylaxis. The patient is seen today 12/25/2022 in follow-up on the regular medical floor. He is awake and alert in no acute distress. Denies any worsening shortness of breath, cough or congestion. Maintaining O2 saturation in the mid 90s on 1 L/m per nasal cannula. He is afebrile. Hemodynamically stable. Blood cultures reveal no growth. Sputum culture pending. Remains on DuoNeb inhalations, Mucinex, Singulair. Heparin for DVT prophylaxis. Currently on Zosyn. Objective - Vital Signs Vital signs: Vital Signs Temp 98.1 F 12/25/22 13:10 Pulse 66 12/25/22 13:10 Resp 16 12/25/22 13:10 BP 137/61 12/25/22 13:10 Pulse Ox 97 12/25/22 13:10 FiO2 Intake & Output 12/24/22 12/25/22 12/25/22 18:59 06:59 18:59 Intake Total 300 Output Total 400 Balance 300 -400 Weight 62.142 kg Intake: Intake, IV Titration 300 Amount Piperacillin-Tazobactam 3 200 .375 gm In Sodium Chloride 0.9% 100 ml @ 25 mls/hr IVPB Q8HR [facility] Rx# :[id number] Sodium Ferric Gluconat- 100 Sucrose 125 mg In Sodium Chloride 0.9% 100 ml @ 100 mls/hr IVPB DAILY [facility] Rx#:[id number] Output: Urine 400 Other: # Voids 1 2 - Exam GENERAL EXAM: Alert, pleasant 77-year-old male, on 1 L nasal cannula, in no apparent distress. HEAD: Normocephalic. EYES: Normal reaction of pupils, equal size. NOSE: Clear with pink turbinates. THROAT: No erythema or exudates. NECK: No masses, no JVD. CHEST: No chest wall deformity. LUNGS: Equal air entry with scattered rhonchi. CVS: S1 and S2 normal with no audible murmur, regular rhythm. ABDOMEN: Dressing/binder in place. No hepatosplenomegaly, normal bowel sounds, no guarding or rigidity. SPINE: No scoliosis or deformity SKIN: No rashes CENTRAL NERVOUS SYSTEM: No focal deficits, tone is normal in all 4 extremities. EXTREMITIES: There is no peripheral edema. No clubbing, no cyanosis. Peripheral pulses are intact. - Labs CBC & Chem 7: 12/24/22 06:34 12/24/22 06:34 Assessment and Plan Assessment: Acute hypoxic respiratory failure secondary to acute exacerbation of chronic obstructive pulmonary disease with bibasilar opacities. Pro calcitonin 0.40. Currently on Zosyn. Previous history of multiple pneumonias from pseudomonas, MRSA, E. coli History of right upper lobe pulmonary nodule with previous radiation, being monitored in the outpatient setting History of perforated colon requiring colectomy and colostomy and subsequent recent reversal Chronic kidney disease Acute on chronic anemia, iron deficiency Tracheobronchomalacia Factor V Leiden mutation Hypertension History of anxiety History of dysphagia Plan: The patient was seen and evaluated Medications reviewed Cleared for discharge from the pulmonary standpoint Will remain on Avelox for broad-spectrum coverage Continue his home pulmonary medications Follow-up in our office for culture results I have personally seen and examined the patient, performed the documentation and the assessment and plan as written. Number of minutes spent on the visit: 10.
--- NOTE | 2022-12-25 16:27 | P.PN ---
Subjective Progress Note Date: 12/25/22 Principal diagnosis: Pneumonia and abdominal wall wound Patient is a 77-year-old male with a past medical history significant for hypertension reflux COPD history of recurrent pseudomonal pneumonia with a last admission to the hospital back in March 2022 patient has been on suppressive tobramycin inhalation that has been interrupted few times because of his kidney function patient is presenting to the hospital for evaluation of increasing shortness of breath and cough, patient chest x-ray with patchy basilar infiltrate concerning for pneumonia, also have an abdominal wound. On today's evaluation that is 12/25/2022, the patient denies any fever or any chills, the patient is breathing comfortably on 1 L nasal cannula supplemental oxygen , the patient denies chest pain cough has decreased in intensity and less productive, patient denies abdominal pain, no nausea/vomiting and no diarrhea has been reported Patient did have a creatinine 1.83 white count is 6.08 as of yesterday no laboratory, blood cultures negative sputum pending Objective - Vital Signs Vital signs: Vital Signs Temp 98.3 F 12/25/22 07:26 Pulse 72 12/25/22 09:18 Resp 19 12/25/22 09:18 BP 152/75 12/25/22 07:26 Pulse Ox 97 12/25/22 06:40 FiO2 Intake & Output 12/24/22 12/25/22 12/25/22 18:59 06:59 18:59 Intake Total 300 Output Total 400 Balance 300 -400 Weight 62.142 kg Intake: Intake, IV Titration 300 Amount Piperacillin-Tazobactam 3 200 .375 gm In Sodium Chloride 0.9% 100 ml @ 25 mls/hr IVPB Q8HR [facility] Rx# :[id number] Sodium Ferric Gluconat- 100 Sucrose 125 mg In Sodium Chloride 0.9% 100 ml @ 100 mls/hr IVPB DAILY [facility] Rx#:[id number] Output: Urine 400 Other: # Voids 1 2 - Exam GENERAL DESCRIPTION: An elderly male lying in bed in no distress RESPIRATORY SYSTEM: Unlabored breathing , coarse basilar sounds bilaterally HEART: S1 S2 regular rate and rhythm , ABDOMEN: Soft , no tenderness EXTREMITIES: No edema feet - Labs CBC & Chem 7: 12/24/22 06:34 12/24/22 06:34 Assessment and Plan (1) Pneumonia Current Visit: No Status: Acute Code(s): J18.9 - PNEUMONIA, UNSPECIFIED ORGANISM SNOMED Code(s): 962138944 Plan: 1patient presented hospital with increasing shortness of breath cough purulent sputum in this patient with evidence of lower lobe infiltrate and mild elevated procalcitonin concerning for possible gram-negative pneumonia. 2abdominal wall wound with no slough tissue or surrounding erythema we will recommend local wound care with the Aquacel silver dressing change every 48 hour. 3sputum culture pending, blood cultures so far negative 4patient has shown clinical improvement and has been cleared for discharge we will consider short course of oral Avelox also advised to restart his tobramycin inhalation every other day and watch his kidney function Closely questions and concerns were answered Dictation was produced using makerist dictation software. please excuse any grammatical, word or spelling errors. Time with Patient: Less than 30
--- NOTE | 2022-12-25 21:51 | P.DS ---
Providers Date of admission: 12/20/22 12:57 Expected date of discharge: 12/25/22 Attending physician: Brodie Cervantes Consults: 12/20/22 12:57 Consult Physician Routine Consulting Provider: Mal Howard Consult Reason/Comments: Pneumonia Do you want consulting provider notified?: Yes 12/22/22 13:44 Consult Physician Routine Consulting Provider: Leandro Wise Consult Reason/Comments: abdominal wounds, pneumonia Do you want consulting provider notified?: Yes 12/22/22 13:46 Consult Physician Routine Consulting Provider: Anthony Heath Consult Reason/Comments: renal failure/known to you Do you want consulting provider notified?: Yes Consult Physician Routine Consulting Provider: Jean Chacon Consult Reason/Comments: anemia/pt known to you Do you want consulting provider notified?: Already Contacted Primary care physician: Madi [facility] Course: Chief Complaint: MARTA Patient is a 77-year-old male with a past medical history of COPD on home oxygen 2 L as needed, history of Pseudomonas pneumonia, history of bronchial stent placement/removal, CKD stage III, history of lung cancer, history of DVT, hypertension anxiety and prior history of smoking presents to ER with complaints of worsening shortness of breath. Patient has been having symptoms for the past 4 to 5 days and also having exertional dyspnea. Denies any fever or chills. No complaints of chest pain. Denies any leg swelling. No nausea vomiting abdominal pain or diarrhea. Patient was discharged from hospital on 11/10/2022, admitted due to acute kidney injury and was seen by nephrology. Patient was hydrated and was also on bicarb drip. Patient underwent extensive lysis of adhesions, small bowel resection and repair of incisional hernia on 02/09/2022. Patient states that he had a reversal of ostomy and repair of incisional hernia done on November 14, 2022. On admission chest x-ray showed patchy bibasilar infiltrates/atelectasis with small effusions have increased since prior study. EKG showed sinus rhythm with frequent ventricular premature complexes. Laboratory data showed WBC 6.9 hemoglobin 8.9 platelets 290, sodium 136 potassium 4.9 chloride 102 bicarb is 27 BUN 42 and creatinine 1.42 Liver enzymes are not elevated. Troponin 0.012 and proBNP 3100 and albumin 3.3. 12/21/2022: Sitting at the edge of the bed. Some cough. Does have 2 L of oxy gen and at home. On antibiotics bronchodilators. Did tolerate some diet. December 22: Does bring up some sputum when he lies down. For his midline abdominal ulceration wound care and ID consulted. Also consultation to nephrology and. Oral intake good. December 23: Breathing better. Seen by multiple consultants. Getting iron supplementation. IV Zosyn. Breathing better. Has been out of bed. Continue with IV Zosyn. Blood cultures negative until now. Eating well December 24: Very limited clear sputum. Eating well. On IV Zosyn. Overall feeling much better. Discussed with patient. December 25: Doing well. Discussed with patient. complete 5 days of Avelox per ID. Medications reviewed. Patient will follow-up with oncology, nephrology. Pulmonary. Questions answered. Discussion and discharge planning more than 35 minutes Past Medical History Past Medical History: Blood Disorder, Cancer, COPD, Deep Vein Thrombosis (DVT), GERD/Reflux, Hypertension, Pneumonia, Renal Disease Additional Past Medical History / Comment(s): hx of pseudomonus lung infection, uses CPAP not for sleep apnea, O2 prn 2l prn, diverticulits, Factor V Leiden, hx of bronchial silicone stent now removed, PICC line in past now removed, past hx dialysis for kidney damage, none currently, Stage 3 renal disease, Lung cancer - diagnosed and treated down in [place], Colostomy, hernia repair History of Any Multi-Drug Resistant Organisms: MRSA, Other MDRO Date of last positivie culture/infection: 08/30/21-MRSA MDRO Source:: Sputum-MDRO & MRSA Past Surgical History: Hernia Repair, Tonsillectomy Additional Past Surgical History / Comment(s): bronchoscopy, bronchial silicone stent, now removed, fatty tumor removed from chest area, COLONOSCOPY, alexandre cataract, hernia repair, ileostomy Past Anesthesia/Blood Transfusion Reactions: Previous Problems w/ Anesthesia Additional Past Anesthesia/Blood Transfusion Reaction / Comment(s): "as turned black and blue from ETHER". FACTOR V LEIDEN Past Psychological History: Anxiety Smoking Status: Former smoker Past Alcohol Use History: None Reported Past Drug Use History: None Reported - Past Family History Father Family Medical History: Cancer Additional Family Medical History / Comment(s): colon cancer Mother Family Medical History: Cancer Additional Family Medical History / Comment(s): leukemia On examination: VITAL SIGNS: 98.1, sitting 6, 16, 1 37 x 61, 97% on 1 L GENERAL APPEARANCE: Sitting edge of the bed, comfortable HEENT: Normal external appearance of nose and ear. Oral cavity normal EYES: Pupils equal. Conjunctiva normal. NECK: JVD not raised. Mass not palpable. RESPIRATORY: Respiratory effort normal. Decreased breath sound CARDIOVASCULAR: First and second sounds normal. No edema. ABDOMEN: Soft. Liver and spleen not palpable. No tenderness. No mass palpable. Postop incision wound /r dressing and binder. PSYCHIATRY: Alert and oriented x3. Mood and affect normal. INVESTIGATIONS, reviewed in the clinical context: Computed tomography scan chest abdomen pelvis: Hepatic cyst. Ascending thoracic aortic aneurysm 4.5 cm. December 24: White count 6.0 hemoglobin 7.1 platelets 22 potassium 4 BUN 34 creatinine 1.83 December 22: Potassium 4 BUN 47 creatinine is 1.74 I a KEN TIBC 218 transferrin 156 ferritin 522. B12 1050. Folate greater than 20. Chest x-ray film personally reviewed by me-small bilateral effusion. Possible basis this letter opacities. December 21: White count 4.4 hemoglobin 7.5 platelets 298 potassium 5. 45 crit a nd 1.7. Procalcitonin 0.40 Prior labs: 08/06/2022: Creatinine 1.7 11/07/2022: Hemoglobin 10.1 Assessment and plan: Bibasilar infiltrates/atelectasis with small pleural effusions. Possible pneumonia : Improving -IV Zosyn and azithromycin. Discharge on Avelox 4 mg a day for 5 days Acute on chronic hypoxic respiratory failure -On oxygen Chronic kidney disease stage III baseline creatinine level -Creatinine 1.7 on July 2022 Suspect anemia of chronic kidney disease. Iron deficiency anemia. , B12, folate: Normal IV Ferrlecit given Chronic hyperkalemia from underlying CK D -Continue Lokelma Recent history of reversal of colostomy and umbilical hernia repair on 11/14/2022. -On laxative at home Prior history of Pseudomonas pneumonia Right upper lobe pulmonary nodule. Patient had PET scan and was treated with SBRT Abdominal wall wound from incision. [History of colonic perforation requiring colectomy and colostomy] -Wound care/ID-local wound care Obstructive sleep apnea not on CPAP COPD in a previous smoker -DuoNeb Chronic hypoxic respiratory failure -on home oxygen 2 L History of DVT Essential Hypertension -Lopressor 25 mg twice a day Anxiety Disposition: Home Plan - Discharge Summary Discharge Rx Participant: No New Discharge Prescriptions: New Ipratropium-Albuterol Nebulize [Duoneb 0.5 mg-3 mg/3 ml Soln] 3 ml INHALATION RT-QID #120 each Moxifloxacin HCl [Avelox] 400 mg PO DAILY #5 tab Continue Montelukast Sodium [Singulair] 10 mg PO HS Metoprolol Tartrate [Lopressor] 25 mg PO BID L.acidoph,Paracasei, B.lactis [Probiotic] 1 cap PO DAILY allopurinoL [Zyloprim] 100 mg PO HS Albuterol Sulfate [Ventolin HFA] 2 puff INHALATION RT-QID PRN PRN Reason: Shortness Of Breath Cyanocobalamin (Vitamin B-12) [Vitamin B-12] 1,000 mcg PO DAILY Sodium Bicarbonate Tab 650 mg PO BID #60 tab Famotidine [Pepcid] 20 mg PO DAILY Folic Acid 1 mg PO DAILY Sodium Zirconium Cyclosilicate [Lokelma] 10 gm PO DAILY@1400 Magnesium Oxide [Mag-Ox] 400 mg PO BID 30 Days #60 tab polyethylene glycoL 3350 [Miralax] 17 gm PO DAILY Doxazosin [Cardura] 4 mg PO HS Fluticasone/Umeclidin/Vilanter [Trelegy Ellipta 100-62.5-25] 1 puff INHALATION RT-DAILY ALPRAZolam [Xanax] 0.5 mg PO HS Budesonide 0.5 mg INHALATION RT-BID Cetirizine HCl [Zyrtec] 10 mg PO DAILY guaiFENesin [guaiFENesin ER] 600 mg PO BID Cholecalciferol [Vitamin D3 (25 Mcg = 1000 Iu)] 50 mcg PO DAILY Aspirin EC [Ecotrin Low Dose] 81 mg PO DAILY Discontinued Albuterol Nebulized [Ventolin Nebulized] 2.5 mg INHALATION RT-TID Discharge Medication List Montelukast Sodium [Singulair] 10 mg PO HS 01/24/14 [History] Metoprolol Tartrate [Lopressor] 25 mg PO BID 07/25/16 [History] L.acidoph,Paracasei, B.lactis [Probiotic] 1 cap PO DAILY 09/01/18 [History] allopurinoL [Zyloprim] 100 mg PO HS 11/21/19 [History] Albuterol Sulfate [Ventolin HFA] 2 puff INHALATION RT-QID PRN 10/21/21 [History] Fluticasone/Umeclidin/Vilanter [Trelegy Ellipta 100-62.5-25] 1 puff INHALATION RT-DAILY 10/21/21 [History] Cyanocobalamin (Vitamin B-12) [Vitamin B-12] 1,000 mcg PO DAILY 07/02/22 [History] Sodium Bicarbonate Tab 650 mg PO BID #60 tab 07/04/22 [Rx] Famotidine [Pepcid] 20 mg PO DAILY 07/11/22 [History] ALPRAZolam [Xanax] 0.5 mg PO HS 11/06/22 [History] Budesonide 0.5 mg INHALATION RT-BID 11/06/22 [History] Cetirizine HCl [Zyrtec] 10 mg PO DAILY 11/06/22 [History] Folic Acid 1 mg PO DAILY 11/06/22 [History] Sodium Zirconium Cyclosilicate [Lokelma] 10 gm PO DAILY@1400 11/06/22 [History] guaiFENesin [guaiFENesin ER] 600 mg PO BID 11/06/22 [History] Magnesium Oxide [Mag-Ox] 400 mg PO BID 30 Days #60 tab 11/10/22 [Rx] Aspirin EC [Ecotrin Low Dose] 81 mg PO DAILY 12/20/22 [History] Cholecalciferol [Vitamin D3 (25 Mcg = 1000 Iu)] 50 mcg PO DAILY 12/20/22 [History] Doxazosin [Cardura] 4 mg PO HS 12/20/22 [History] polyethylene glycoL 3350 [Miralax] 17 gm PO DAILY 12/20/22 [History] Ipratropium-Albuterol Nebulize [Duoneb 0.5 mg-3 mg/3 ml Soln] 3 ml INHALATION RT-QID #120 each 12/25/22 [Rx] Moxifloxacin HCl [Avelox] 400 mg PO DAILY #5 tab 12/25/22 [Rx] Follow up Appointment(s)/Referral(s): Franchesca Riggins NPC [Nurse Practitioner] - 01/07/23 10:15 am (This is Dr. Lopez's nurse practitioner. The location of the appointment is at our office behind [facility]-[address]) Madi Munguia MD [Primary Care Provider] - 1 Week (Office stated they will call patient with follow-up appointment time and date.) Anthony Heath DO [STAFF PHYSICIAN] - 01/01/23 11:00 am Leandro Wise MD [STAFF PHYSICIAN] - 1 Week Activity/Diet/Wound Care/Special Instructions: antibiotics per dr wise Discharge Disposition: HOME SELF-CARE
--- NOTE | 2022-12-29 07:26 | CDI ---
Documentation Clarification Form Date: 12/29/22 From: Sena Toledo Admit Date: 12/20/2022 12:57:00 PM Patient Name: Anival Chavez Visit Number: [id number] Discharge Date: 12/25/2022 03:30:00 PM ATTENTION: The Clinical Documentation Specialists (CDI) and [facility] Coding Staff appreciate your assistance in clarifying documentation. Please respond to the clarification below the line at the bottom and electronically sign. The CDI & [facility] Coding staff will review the response and follow-up if needed. Please note: Queries are made part of the Legal Health Record. If you have any questions, please contact the author of this message via ITS. Dr. Brodie Cervantes, Pseudomonas aeruginosa is documented in the gram stain final sputum culture on 12/24, but is not noted in subsequent documentation. Clarification is requested. 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 Treatment: IV Zosyn and Azithromycin, IV Solu-Medrol, DuoNebs and Breo inhaler, O2 Please clarify if the pneumonia is: [ + ] Pseudomonas pneumonia [ ] Gram-negative pneumonia [ ] Other condition, please specify [ ] Unable to determine MTDD
== END 2022-12-25 15:30 | disposition home or self-care (01) | DRG 177 ==
LOC: EC 10:40 → 4SSUR 12:57
PROVIDERS: ADMIT Hospitalist; ATTEND Hospitalist
DX: J15.1 Pneumonia due to Pseudomonas (principal); J96.21 Acute and chronic respiratory failure with hypoxia; N17.0 Acute kidney failure with tubular necrosis; J44.0 Chronic obstructive pulmonary disease with (acute) lower respiratory infection; J44.1 Chronic obstructive pulmonary disease with (acute) exacerbation; J90 Pleural effusion, not elsewhere classified; Z16.24 Resistance to multiple antibiotics; J98.11 Atelectasis; D68.51 Activated protein C resistance; J18.9 Pneumonia, unspecified organism; J39.8 Other specified diseases of upper respiratory tract; D63.1 Anemia in chronic kidney disease; E11.22 Type 2 diabetes mellitus with diabetic chronic kidney disease; E11.622 Type 2 diabetes mellitus with other skin ulcer; D50.9 Iron deficiency anemia, unspecified; N18.31 Chronic kidney disease, stage 3a; L98.492 Non-pressure chronic ulcer of skin of other sites with fat layer exposed; K76.89 Other specified diseases of liver; I71.21 Aneurysm of the ascending aorta, without rupture; I12.9 Hypertensive chronic kidney disease with stage 1 through stage 4 chronic kidney disease, or unspecified chronic kidney disease; N14.19 Nephropathy induced by other drugs, medicaments and biological substances; I07.1 Rheumatic tricuspid insufficiency; G47.33 Obstructive sleep apnea (adult) (pediatric); F41.9 Anxiety disorder, unspecified; E87.5 Hyperkalemia; K21.9 Gastro-esophageal reflux disease without esophagitis; T36.5X5A Adverse effect of aminoglycosides, initial encounter; R91.1 Solitary pulmonary nodule; Z99.81 Dependence on supplemental oxygen; Z79.82 Long term (current) use of aspirin; Z79.51 Long term (current) use of inhaled steroids; Z79.899 Other long term (current) drug therapy; Z85.118 Personal history of other malignant neoplasm of bronchus and lung; Z92.3 Personal history of irradiation; Z87.891 Personal history of nicotine dependence; Z87.01 Personal history of pneumonia (recurrent); Z86.718 Personal history of other venous thrombosis and embolism; Z86.14 Personal history of Methicillin resistant Staphylococcus aureus infection; Z88.2 Allergy status to sulfonamides; Z88.4 Allergy status to anesthetic agent; Z88.1 Allergy status to other antibiotic agents; Z91.041 Radiographic dye allergy status
CPT/HCPCS: 36415; 71046; 71250; 74176; 80048; 80053; 82607; 82728; 82746; 83540; 83550; 83605; 83735; 83880; 84145; 84484; 85025; 85610; 85730; 87040; 87070; 87077; 87186; 87205; 87449; 93005; 93306; 94640; 94760; 96365; 96366; 96368; 96375; 99285

== ENCOUNTER 2023-01-04 22:48 | Inpatient (IN) | payer MEDICARE, BC ==
[2023-01-04] MEDS ORDERED: IPRATROPIUM-ALBUTEROL 3 ML NEB INHALATION STA (23:25)
[2023-01-04 23:43] LABS: Anisocytosis Slight; Basophils % (A) 0 %; Eosinophils # (A) 0.3 k/uL (0-0.7); Eosinophils % (A) 3 %; HCT 30.3 % (39.0-53.0); HGB 9.4 gm/dL (13.0-17.5); Hypochromasia Moderate; Lymphocytes # (A) 1.6 k/uL (1.0-4.8); Lymphocytes % (A) 19 %; MCH 30.2 pg (25.0-35.0); MCHC 30.9 g/dL (31.0-37.0); MCV 97.5 fL (80.0-100.0); Macrocytosis Slight; Mean Platelet Volume 8.8; Monocytes # (A) 0.4 k/uL (0-1.0); Monocytes % (A) 5 %; Neutrophils # (A) 6.2 k/uL (1.3-7.7); Neutrophils % (A) 71 %; Platelet Count 304 k/uL (150-450); RBC 3.11 m/uL (4.30-5.90); RDW 18.7 % (11.5-15.5); WBC 8.7 k/uL (3.8-10.6)
[2023-01-04 23:56] LABS: INR 0.9 (<1.2); Partial Thromboplastin Time 26.5 sec (22.0-30.0); Prothrombin Time 10.5 sec (10.0-12.5)
[2023-01-05] LABS: ALT 17 U/L (4-49); African American GFR (CKD) 60 (>60 ml/min/1.73 sqM); Albumin 3.1 g/dL (3.5-5.0); Anion Gap 9 mmol/L; Blood Urea Nitrogen 46 mg/dL (9-20); Calcium 8.5 mg/dL (8.4-10.2); Carbon Dioxide 27 mmol/L (22-30); Chloride 101 mmol/L (98-107); Glucose 89 mg/dL (74-99); Non-African American GFR(CKD) 52 (>60 ml/min/1.73 sqM); Sodium 137 mmol/L (137-145); Total Bilirubin 0.5 mg/dL (0.2-1.3); Total Protein 5.7 g/dL (6.3-8.2)
[2023-01-05 00:01] LABS: Potassium 4.6 mmol/L (3.5-5.1)
[2023-01-05 00:02] LABS: AST 46 U/L (17-59); Alkaline Phosphatase 71 U/L (38-126)
[2023-01-05 00:05] LABS: NT-Pro-B-Type Natriuretic Pept 4080 pg/mL
--- NOTE | 2023-01-05 00:36 | ED ---
SOB HPI - General Chief Complaint: Shortness of Breath Stated Complaint: Pneumonia Time Seen by Provider: 01/04/23 22:49 Source: patient, EMS Mode of arrival: EMS Limitations: no limitations - History of Present Illness Initial Comments: This patient is 77-year-old man who states he has underlying history of COPD. The patient had been admitted in the hospital until December 25 for COPD with suspected bilateral pneumonia. The patient states he was released did feel well for a few days and then started to have increasing dyspnea and cough. He states he has a little bit of sputum production though typically dry cough. He has been taking his home medications as prescribed but states it seems to be helping. Patient denies fever or chills. No chest pain. No change in urination or bowel movements. No leg pain or swelling. MD Complaint: shortness of breath, cough -: days(s) Severity scale (1-10): 0 Consistency: constant Improves With: nothing Worsens With: exertion Known History Of: COPD Associated Symptoms: cough Treatments Prior to Arrival: oxygen, bronchodilator - Related Data Home Oxygen Therapy: Yes (Overnight) Home Oxygen Amount: 2 Liters Home Medications Medication Instructions Recorded Confirmed Montelukast Sodium [Singulair] 10 mg PO HS 01/24/14 01/05/23 Metoprolol Tartrate [Lopressor] 25 mg PO BID 07/25/16 01/05/23 L.acidoph,Paracasei, B.lactis 1 cap PO DAILY 09/01/18 01/05/23 [Probiotic] allopurinoL [Zyloprim] 100 mg PO HS 11/21/19 01/05/23 Albuterol Sulfate [Ventolin HFA] 2 puff INHALATION RT-QID PRN 10/21/21 01/05/23 Fluticasone/Umeclidin/Vilanter 1 puff INHALATION RT-DAILY 10/21/21 01/05/23 [Trelegy Ellipta 100-62.5-25] Cyanocobalamin (Vitamin B-12) 1,000 mcg PO DAILY 07/02/22 01/05/23 [Vitamin B-12] Famotidine [Pepcid] 20 mg PO DAILY 07/11/22 01/05/23 ALPRAZolam [Xanax] 0.5 mg PO HS 11/06/22 01/05/23 Budesonide 0.5 mg INHALATION RT-BID 11/06/22 01/05/23 Cetirizine HCl [Zyrtec] 10 mg PO DAILY 11/06/22 01/05/23 Folic Acid 1 mg PO DAILY 11/06/22 01/05/23 Sodium Zirconium Cyclosilicate 10 gm PO DAILY@1400 11/06/22 01/05/23 [Lokelma] guaiFENesin [guaiFENesin ER] 600 mg PO BID 11/06/22 01/05/23 Aspirin EC [Ecotrin Low Dose] 81 mg PO DAILY 12/20/22 01/05/23 Cholecalciferol [Vitamin D3 (25 50 mcg PO DAILY 12/20/22 01/05/23 Mcg = 1000 Iu)] Doxazosin [Cardura] 4 mg PO HS 12/20/22 01/05/23 polyethylene glycoL 3350 [Miralax] 17 gm PO DAILY 12/20/22 01/05/23 Furosemide [Lasix] 20 mg PO Q2D 01/05/23 01/05/23 Previous Rx's Medication Instructions Recorded Sodium Bicarbonate Tab 650 mg PO BID #60 tab 07/04/22 Magnesium Oxide [Mag-Ox] 400 mg PO BID 30 Days #60 tab 11/10/22 Ipratropium-Albuterol Nebulize 3 ml INHALATION RT-QID #120 each 12/25/22 [Duoneb 0.5 mg-3 mg/3 ml Soln] Tobramycin [Tobramycin Nebules] 300 mg IH Q48H #15 each 12/26/22 Fluconazole [Diflucan] 100 mg PO DAILY 7 Days #7 tab 01/10/23 predniSONE 10 mg PO DAILY 8 Days #20 tab 01/10/23 Allergies Allergy/AdvReac Type Severity Reaction Status Date / Time cefepime Allergy SHUT DOWN Verified 01/05/23 08:14 KIDNEYS ether Allergy Anaphylaxis Verified 01/05/23 08:14 Iodinated Contrast Media Allergy PAST Verified 01/05/23 08:14 [Iodinated Contrast Media - HISTORY OF Oral and] KIDNEY PROBLEMS venom-honey bee Allergy Anaphylaxis Verified 01/05/23 08:14 sulfamethoxazole AdvReac states Verified 01/05/23 08:14 [From Bactrim] effects kidneys trimethoprim [From Bactrim] AdvReac states Verified 01/05/23 08:14 effects kidneys Review of Systems ROS Statement: Those systems with pertinent positive or pertinent negative responses have been documented in the HPI. ROS Other: All systems not noted in ROS Statement are negative. Constitutional: Reports: weakness. Denies: fever, chills Respiratory: Reports: cough, dyspnea, wheezes. Denies: hemoptysis Cardiovascular: Reports: dyspnea on exertion, orthopnea. Denies: chest pain, palpitations, edema, syncope Gastrointestinal: Denies: abdominal pain, nausea, vomiting, diarrhea, melena, hematochezia Genitourinary: Denies: dysuria, hematuria Musculoskeletal: Denies: back pain Skin: Denies: rash Neurological: Denies: headache, weakness, numbness Past Medical History Past Medical History: Blood Disorder, Cancer, COPD, Deep Vein Thrombosis (DVT), GERD/Reflux, Hypertension, Pneumonia, Renal Disease Additional Past Medical History / Comment(s): hx of pseudomonus lung infection, uses CPAP not for sleep apnea, O2 prn 2l prn, diverticulits, Factor V Leiden, hx of bronchial silicone stent now removed, PICC line in past now removed, past hx dialysis for kidney damage, none currently, Stage 3 renal disease, Lung cancer - diagnosed and treated down in [place], colostomy with reversal, hernia repair History of Any Multi-Drug Resistant Organisms: MRSA, Other MDRO Date of last positivie culture/infection: 08/30/21-MRSA MDRO Source:: Sputum-MDRO & MRSA Past Surgical History: Hernia Repair, Tonsillectomy Additional Past Surgical History / Comment(s): bronchoscopy, bronchial silicone stent, now removed, fatty tumor removed from chest area, COLONOSCOPY, a[place]andre cataract, hernia repair, ileostomy/colostomy reversal Past Anesthesia/Blood Transfusion Reactions: Previous Problems w/ Anesthesia Additional Past Anesthesia/Blood Transfusion Reaction / Comment(s): "as infant turned black and blue from ETHER". FACTOR V LEIDEN Past Psychological History: Anxiety Smoking Status: Former smoker Past Alcohol Use History: None Reported Past Drug Use History: None Reported - Past Family History Father Family Medical History: Cancer Additional Family Medical History / Comment(s): colon cancer Mother Family Medical History: Cancer Additional Family Medical History / Comment(s): leukemia General Exam Limitations: no limitations General appearance: alert, in no apparent distress Head exam: Present: atraumatic, normocephalic Eye exam: Present: normal appearance. Absent: scleral icterus, conjunctival injection ENT exam: Present: normal oropharynx Neck exam: Present: normal inspection Respiratory exam: Present: respiratory distress (Mild tachypnea), wheezes, rales (Bilateral bases). Absent: rhonchi, stridor, accessory muscle use, decreased breath sounds Cardiovascular Exam: Present: regular rate, normal rhythm, normal heart sounds. Absent: systolic murmur, diastolic murmur, rubs, gallop GI/Abdominal exam: Present: soft. Absent: distended, tenderness, guarding, rebound, rigid, mass Extremities exam: Present: normal inspection, normal capillary refill. Absent: pedal edema, calf tenderness Back exam: Present: normal inspection. Absent: CVA tenderness (R), CVA tenderness (L) Neurological exam: Present: alert Skin exam: Present: warm, dry, intact, normal color. Absent: rash Course Vital Signs 01/04/23 01/04/23 01/05/23 22:48 23:57 00:07 Temperature 98.1 F Pulse Rate 90 79 87 Respiratory 22 Rate Blood Pressure 161/82 O2 Sat by Pulse 95 Oximetry 01/05/23 01/05/23 01/05/23 00:59 06:25 07:30 Temperature Pulse Rate 88 71 71 Respiratory 20 20 Rate Blood Pressure 138/74 133/71 O2 Sat by Pulse 93 L 95 95 Oximetry 01/05/23 01/05/23 01/05/23 07:46 10:00 11:00 Temperature Pulse Rate 76 62 73 Respiratory 25 H 24 Rate Blood Pressure 140/77 153/80 O2 Sat by Pulse 95 95 Oximetry 01/05/23 01/05/23 01/05/23 11:26 11:37 13:30 Temperature Pulse Rate 72 68 81 Respiratory 18 Rate Blood Pressure 134/69 O2 Sat by Pulse 94 L Oximetry 01/05/23 01/05/23 01/05/23 15:20 15:32 17:40 Temperature Pulse Rate 80 84 84 Respiratory 18 Rate Blood Pressure 134/81 O2 Sat by Pulse 96 Oximetry Medical Decision Making - Medical Decision Making The patient had chest chair which I interpret as negative for acute infiltrate, pneumothorax, congestive heart failure Was pt. sent in by a medical professional or institution (, PA, COAT CHECK ATTENDANT, urgent care, hospital, or correction...) When possible be specific @ -[No] Did you speak to anyone other than the patient for history (EMS, parent, family, police, friend...)? What history was obtained from this source @ -[No] Did you review nursing and triage notes (agree or disagree)? Why? @ -[I reviewed and agree with nursing and triage notes] Were old charts reviewed (outside hosp., previous admission, EMS record, old EKG, old radiological studies, urgent care reports/EKG's, correction records)? Report findings @ -[No old charts were reviewed] Differential Diagnosis (chest pain, altered mental status, abdominal pain women, abdominal pain men, vaginal bleeding, weakness, fever, dyspnea, syncope, headache, dizziness, GI bleed, back pain, seizure, CVA, palpatations, mental health, musculoskeletal)? @ -[Differential Dyspnea: Coronary syndrome, arrhythmia, tamponade, asthma, COPD, pulmonary embolism, pneumonia, pneumothorax, pulmonary effusion, anaphylaxis, diabetic ketoacidosis, flailed chest, pulmonary contusion, diaphragmatic rupture, anemia, neuromuscular, this is not meant to be an all-inclusive list. EKG interpreted by me (3pts min.). @ -[Interpreted As above] X-rays interpreted by me (1pt min.). @ -[I interpreted as above CT interpreted by me (1pt min.). @ -[None done] U/S interpreted by me (1pt. min.). @ -[None done] What testing was considered but not performed or refused? (CT, X-rays, U/S, labs)? Why? @ -[None] What meds were considered but not given or refused? Why? @ -[None] Did you discuss the management of the patient with other professionals (professionals i.e. , PA, COAT CHECK ATTENDANT, lab, RT, psych nurse, social work supervisor, mechanical systems design engineer, teacher, forward air controller/air officer, assistant case manager)? Give summary @ -Case discussed with admitting physician and treatment recommendations are incorporated Was smoking cessation discussed for >3mins.? @ -[No] Was critical care preformed (if so, how long)? @ -[No] Were there social determinants of health that impacted care today? How? (Homelessness, low income, unemployed, alcoholism, drug addiction, transportation, low edu. Level, literacy, decrease access to med. care, fdc, rehab)? @ -[No] Was there de-escalation of care discussed even if they declined (Discuss DNR or withdrawal of care, Hospice)? DNR status @ -[No] What co-morbidities impacted this encounter? (DM, HTN, Smoking, COPD, CAD, Cancer, CVA, ARF, Chemo, Hep., AIDS, mental health diagnosis, sleep apnea, morbid obesity)? @ -[None] Was patient admitted / discharged? Hospital course, mention meds given and route, prescriptions, significant lab abnormalities, going to OR and other pertinent info. @ -[Patient will be admitted for further steroid and inhaled medications. Pulmonology consultation Undiagnosed new problem with uncertain prognosis? @ -[No] Drug Therapy requiring intensive monitoring for toxicity (Heparin, Nitro, Insulin, Cardizem)? @ -[No] Were any procedures done? @ -[No] Diagnosis/symptom? @ -Acute exacerbation of COPD Acute, or Chronic, or Acute on Chronic? @ -[Acute Uncomplicated (without systemic symptoms) or Complicated (systemic symptoms)? @ -[Uncomplicated Side effects of treatment? @ -[No] Exacerbation, Progression, or Severe Exacerbation? @ -[No] Poses a threat to life or bodily function? How? (Chest pain, USA, DC, pneumonia, PE, COPD, DKA, ARF, appy, cholecystitis, CVA, Diverticulitis, Homicidal, Suicidal, threat to staff... and all critical care pts) @ -[No] - Lab Data Result diagrams: 01/10/23 04:46 01/10/23 04:46 Lab Results 01/04/23 01/04/23 01/04/23 Range/Units 23:31 23:31 23:31 WBC 8.7 (3.8-10.6) k/uL RBC 3.11 L (4.30-5.90) m/uL Hgb 9.4 L (13.0-17.5) gm/dL Hct 30.3 L (39.0-53.0) % MCV 97.5 (80.0-100.0) fL MCH 30.2 (25.0-35.0) pg MCHC 30.9 L (31.0-37.0) g/dL RDW 18.7 H (11.5-15.5) % Plt Count 304 (150-450) k/uL MPV 8.8 Neutrophils % 71 % Lymphocytes % 19 % Monocytes % 5 % Eosinophils % 3 % Basophils % 0 % Neutrophils # 6.2 (1.3-7.7) k/uL Lymphocytes # 1.6 (1.0-4.8) k/uL Monocytes # 0.4 (0-1.0) k/uL Eosinophils # 0.3 (0-0.7) k/uL Basophils # 0.0 (0-0.2) k/uL Hypochromasia Moderate Anisocytosis Slight Macrocytosis Slight PT 10.5 (10.0-12.5) sec INR 0.9 (<1.2) APTT 26.5 (22.0-30.0) sec Sodium 137 (137-145) mmol/L Potassium 4.6 (3.5-5.1) mmol/L Chloride 101 (98-107) mmol/L Carbon Dioxide 27 (22-30) mmol/L Anion Gap 9 mmol/L BUN 46 H (9-20) mg/dL Creatinine 1.31 H (0.66-1.25) mg/dL Est GFR (CKD-EPI)AfAm 60 (>60 ml/min/1.73 sqM) Est GFR (CKD-EPI)NonAf 52 (>60 ml/min/1.73 sqM) Glucose 89 (74-99) mg/dL Plasma Lactic Acid Fadi (0.7-2.0) mmol/L Calcium 8.5 (8.4-10.2) mg/dL Total Bilirubin 0.5 (0.2-1.3) mg/dL AST 46 (17-59) U/L ALT 17 (4-49) U/L Alkaline Phosphatase 71 (38-126) U/L Troponin I (0.000-0.034) ng/mL NT-Pro-B Natriuret Pep 4080 pg/mL Total Protein 5.7 L (6.3-8.2) g/dL Albumin 3.1 L (3.5-5.0) g/dL Procalcitonin (0.02-0.09) ng/mL Coronavirus (PCR) (Not Detectd) 01/04/23 01/04/23 01/04/23 Range/Units 23:31 23:31 23:31 WBC (3.8-10.6) k/uL RBC (4.30-5.90) m/uL Hgb (13.0-17.5) gm/dL Hct (39.0-53.0) % MCV (80.0-100.0) fL MCH (25.0-35.0) pg MCHC (31.0-37.0) g/dL RDW (11.5-15.5) % Plt Count (150-450) k/uL MPV Neutrophils % % Lymphocytes % % Monocytes % % Eosinophils % % Basophils % % Neutrophils # (1.3-7.7) k/uL Lymphocytes # (1.0-4.8) k/uL Monocytes # (0-1.0) k/uL Eosinophils # (0-0.7) k/uL Basophils # (0-0.2) k/uL Hypochromasia Anisocytosis Macrocytosis PT (10.0-12.5) sec INR (<1.2) APTT (22.0-30.0) sec Sodium (137-145) mmol/L Potassium (3.5-5.1) mmol/L Chloride (98-107) mmol/L Carbon Dioxide (22-30) mmol/L Anion Gap mmol/L BUN (9-20) mg/dL Creatinine (0.66-1.25) mg/dL Est GFR (CKD-EPI)AfAm (>60 ml/min/1.73 sqM) Est GFR (CKD-EPI)NonAf (>60 ml/min/1.73 sqM) Glucose (74-99) mg/dL Plasma Lactic Acid Fadi 1.6 (0.7-2.0) mmol/L Calcium (8.4-10.2) mg/dL Total Bilirubin (0.2-1.3) mg/dL AST (17-59) U/L ALT (4-49) U/L Alkaline Phosphatase (38-126) U/L Troponin I <0.012 (0.000-0.034) ng/mL NT-Pro-B Natriuret Pep pg/mL Total Protein (6.3-8.2) g/dL Albumin (3.5-5.0) g/dL Procalcitonin 0.36 H (0.02-0.09) ng/mL Coronavirus (PCR) (Not Detectd) 01/05/23 Range/Units 01:16 WBC (3.8-10.6) k/uL RBC (4.30-5.90) m/uL Hgb (13.0-17.5) gm/dL Hct (39.0-53.0) % MCV (80.0-100.0) fL MCH (25.0-35.0) pg MCHC (31.0-37.0) g/dL RDW (11.5-15.5) % Plt Count (150-450) k/uL MPV Neutrophils % % Lymphocytes % % Monocytes % % Eosinophils % % Basophils % % Neutrophils # (1.3-7.7) k/uL Lymphocytes # (1.0-4.8) k/uL Monocytes # (0-1.0) k/uL Eosinophils # (0-0.7) k/uL Basophils # (0-0.2) k/uL Hypochromasia Anisocytosis Macrocytosis PT (10.0-12.5) sec INR (<1.2) APTT (22.0-30.0) sec Sodium (137-145) mmol/L Potassium (3.5-5.1) mmol/L Chloride (98-107) mmol/L Carbon Dioxide (22-30) mmol/L Anion Gap mmol/L BUN (9-20) mg/dL Creatinine (0.66-1.25) mg/dL Est GFR (CKD-EPI)AfAm (>60 ml/min/1.73 sqM) Est GFR (CKD-EPI)NonAf (>60 ml/min/1.73 sqM) Glucose (74-99) mg/dL Plasma Lactic Acid Fadi (0.7-2.0) mmol/L Calcium (8.4-10.2) mg/dL Total Bilirubin (0.2-1.3) mg/dL AST (17-59) U/L ALT (4-49) U/L Alkaline Phosphatase (38-126) U/L Troponin I (0.000-0.034) ng/mL NT-Pro-B Natriuret Pep pg/mL Total Protein (6.3-8.2) g/dL Albumin (3.5-5.0) g/dL Procalcitonin (0.02-0.09) ng/mL Coronavirus (PCR) Not Detected (Not Detectd) - EKG Data -: EKG Interpreted by Me EKG shows normal: sinus rhythm (Rate 87 bpm, with occasional PVC), intervals (IL interval 200 ms, borderline normal. QTC 436 ms, normal rate QRS duration 137 ms, prolonged consistent with the right bundle-branch block.), QRS complexes (Right bundle-branch block, old inferior infarct) Disposition Clinical Impression: Acute exacerbation of chronic obstructive airways disease Disposition: ADMITTED IP TO THIS HOSP Condition: Fair
[2023-01-05] MEDS ORDERED: FUROSEMIDE 10 MG/ML 4 ML VIAL IV STA (00:52)
[2023-01-05] MEDS ORDERED: NITROGLYCERIN OINT 1 INCH/GM PACKET TOPICAL STA (00:52)
[2023-01-05] MEDS ORDERED: MORPHINE SULFATE 2 MG/ML SYRINGE IV STA (00:53)
--- NOTE | 2023-01-05 01:03 | XR ---
EXAM: XR Chest, 2 Views CLINICAL HISTORY: ITS.REASON XR Reason: difficulty breathing TECHNIQUE: Frontal and lateral views of the chest. COMPARISON: No relevant prior studies available. FINDINGS: Lungs: Unremarkable. No consolidation. Pleural space: Small bilateral pleural effusions. No pneumothorax. Heart: Cardiomegaly. Mediastinum: Unremarkable. Bones/joints: Unremarkable. IMPRESSION: Small bilateral pleural effusions.
[2023-01-05] MEDS ORDERED: NALOXONE 0.4 MG/ML 1 ML VIAL IVP PRN (02:15)
[2023-01-05] MEDS ORDERED: IPRATROPIUM-ALBUTEROL 3 ML NEB INHALATION PRN (02:15)
[2023-01-05] MEDS ORDERED: methylPREDNISolone SOD SUCCI 125 MG/2 ML VIAL IV SCH (06:00)
[2023-01-05] MEDS: IPRATROPIUM-ALBUTEROL 3 ML NEB INHALATION SCH ×4 (07:29→20:22)
[2023-01-05] MEDS ORDERED: SYMBICORT 80-4.5 MCG INHALER INHALATION SCH (08:00)
[2023-01-05] MEDS ORDERED: BUDESONIDE 0.5 MG/2 ML NEBU INHALATION SCH (08:00)
[2023-01-05] MEDS: SODIUM BICARBONATE TAB 650 MG TAB PO SCH ×2 (08:40→21:06)
[2023-01-05] MEDS: ASPIRIN 81 MG PO SCH (08:41)
[2023-01-05] MEDS: CHOLECALCIFEROL 25 MCG (1000 IU) TABLET PO SCH (08:41)
[2023-01-05] MEDS: METOPROLOL TARTRATE 25 MG TAB PO SCH ×2 (08:45→21:06)
[2023-01-05] MEDS: MAGNESIUM OXIDE 400 MG TAB PO SCH ×2 (08:45→21:06)
[2023-01-05] MEDS: FAMOTIDINE 20 MG TAB PO SCH (08:45)
[2023-01-05] MEDS: guaiFENesin 600 MG TABLET.ER PO SCH ×2 (08:45→21:06)
[2023-01-05] MEDS: FOLIC ACID 1 MG TAB PO SCH (08:46)
[2023-01-05] MEDS: polyethylene glycoL 3350 17 GM POWD.PACK PO SCH (08:46)
[2023-01-05] MEDS ORDERED: AZITHROMYCIN 500 MG TAB PO SCH (09:00)
[2023-01-05] MEDS ORDERED: predniSONE 20 MG TAB PO SCH (09:00)
[2023-01-05] MEDS ORDERED: PIPERACILLIN-TAZOBACTAM 3.375 GM in SODIUM CHLORIDE 0.9% 100 ML IVPB ONE (11:00)
[2023-01-05] MEDS: LORATADINE 10 MG TAB PO SCH (11:49)
[2023-01-05] MEDS: LACTOBACILLUS ACIDOPHILUS/PECT 1 EACH CAPSULE PO SCH (11:49)
[2023-01-05] MEDS: CYANOCOBALAMIN 500 MCG TAB PO SCH (11:50)
[2023-01-05] MEDS: SODIUM ZIRCONIUM CYCLOSILICATE 10 GM PACKET PO SCH (13:39)
--- NOTE | 2023-01-05 14:10 | P.CNPUL ---
History of Present Illness Consult date: 01/05/23 Requesting physician: Brodie Cervantes Reason for consult: dyspnea, COPD Chief complaint: Shortness of breath History of present illness: This is a 77-year-old male patient with a history of chronic kidney disease, post colectomy secondary to perforation and subsequent colostomy with recent reversal, left lower extremity DVT, factor V laden mutation, tracheobronchial malacia, moderate chronic obstructive pulmonary disease, solitary lung nodule status post radiation, history of frequent MRSA and pseudomonas pneumonias. He was recently admitted for bilateral pneumonia and his sputum culture was positive for pseudomonas aeruginosa. He was discharged home 12/25/2022 on Avelox 5 days. Blood cultures were negative. He presented here again to the emergency room last evening after a 2 to three-day history of increasing shortness of breath, cough and congestion. Chest x-ray shows no consolidation. Small bilateral pleural effusions. White count 8.7. Hemoglobin 9.4. Platelets 304. Sodium 137. Potassium 4.6. Bicarb 27. BUN 46. Creatinine 1.31. Glucose 89. COVID-19 screen negative. Pro-calcitonin 0.36. ProBNP level 4080. Troponin negative 1. He's been initiated on DuoNeb inhalations, Mucinex, Singulair. He is seen today in consultation in the emergency department. He is currently sitting up on a stretcher. Awake and alert in no acute distress. He has a loose nonproductive cough. Maintaining O2 saturations in the 90s on room air. He's afebrile. Hemodynamically stable. Review of Systems REVIEW OF SYSTEMS: CONSTITUTIONAL: Denies any recent significant weight loss or weight gain. EYES: Denies change in vision. EARS, NOSE, MOUTH, THROAT: Denies headaches, denies sore throat. CARDIOVASCULAR: Denies chest pain, palpitations or syncopal episodes. RESPIRATORY: Positive for shortness of breath, cough, congestion no hemoptysis. GASTROINTESTINAL: Denies change in appetite, denies abdominal pain GENITOURINARY: Denies hematuria, denies infections. MUSKULOSKELETAL: Denies pain, denies swelling. INTEGUMENTARY: Denies rash, denies eczema. NEUROLOGICAL: Denies recent memory loss, no recent seizure activity. PSYCHIATRIC: Denies anxiety, denies depression. HEMATOLOGIC/LYMPHATIC: Denies anemia, denies enlarged lymph nodes. Past Medical History Past Medical History: Blood Disorder, Cancer, COPD, Deep Vein Thrombosis (DVT), GERD/Reflux, Hypertension, Pneumonia, Renal Disease Additional Past Medical History / Comment(s): hx of pseudomonus lung infection, uses CPAP not for sleep apnea, O2 prn 2l prn, diverticulits, Factor V Leiden, hx of bronchial silicone stent now removed, PICC line in past now removed, past hx dialysis for kidney damage, none currently, Stage 3 renal disease, Lung cancer - diagnosed and treated down in [place], colostomy with reversal, hernia repair History of Any Multi-Drug Resistant Organisms: MRSA, Other MDRO Date of last positivie culture/infection: 08/30/21-MRSA MDRO Source:: Sputum-MDRO & MRSA Past Surgical History: Hernia Repair, Tonsillectomy Additional Past Surgical History / Comment(s): bronchoscopy, bronchial silicone stent, now removed, fatty tumor removed from chest area, COLONOSCOPY, alexandre cataract, hernia repair, ileostomy/colostomy reversal Past Anesthesia/Blood Transfusion Reactions: Previous Problems w/ Anesthesia Additional Past Anesthesia/Blood Transfusion Reaction / Comment(s): "as turned black and blue from ETHER". FACTOR V LEIDEN Past Psychological History: Anxiety Smoking Status: Former smoker Past Alcohol Use History: None Reported Past Drug Use History: None Reported - Past Family History Father Family Medical History: Cancer Additional Family Medical History / Comment(s): colon cancer Mother Family Medical History: Cancer Additional Family Medical History / Comment(s): leukemia Medications and Allergies Home Medications Medication Instructions Recorded Confirmed Type Montelukast Sodium [Singulair] 10 mg PO HS 01/24/14 01/05/23 History Metoprolol Tartrate [Lopressor] 25 mg PO BID 07/25/16 01/05/23 History L.acidoph,Paracasei, B.lactis 1 cap PO DAILY 09/01/18 01/05/23 History [Probiotic] allopurinoL [Zyloprim] 100 mg PO HS 11/21/19 01/05/23 History Albuterol Sulfate [Ventolin HFA] 2 puff INHALATION RT-QID PRN 10/21/21 01/05/23 History Fluticasone/Umeclidin/Vilanter 1 puff INHALATION RT-DAILY 10/21/21 01/05/23 History [Trelegy Ellipta 100-62.5-25] Cyanocobalamin (Vitamin B-12) 1,000 mcg PO DAILY 07/02/22 01/05/23 History [Vitamin B-12] Sodium Bicarbonate Tab 650 mg PO BID #60 tab 07/04/22 01/05/23 Rx Famotidine [Pepcid] 20 mg PO DAILY 07/11/22 01/05/23 History ALPRAZolam [Xanax] 0.5 mg PO HS 11/06/22 01/05/23 History Budesonide 0.5 mg INHALATION RT-BID 11/06/22 01/05/23 History Cetirizine HCl [Zyrtec] 10 mg PO DAILY 11/06/22 01/05/23 History Folic Acid 1 mg PO DAILY 11/06/22 01/05/23 History Sodium Zirconium Cyclosilicate 10 gm PO DAILY@1400 11/06/22 01/05/23 History [Lokelma] guaiFENesin [guaiFENesin ER] 600 mg PO BID 11/06/22 01/05/23 History Magnesium Oxide [Mag-Ox] 400 mg PO BID 30 Days #60 tab 11/10/22 01/05/23 Rx Aspirin EC [Ecotrin Low Dose] 81 mg PO DAILY 12/20/22 01/05/23 History Cholecalciferol [Vitamin D3 (25 50 mcg PO DAILY 12/20/22 01/05/23 History Mcg = 1000 Iu)] Doxazosin [Cardura] 4 mg PO HS 12/20/22 01/05/23 History polyethylene glycoL 3350 [Miralax] 17 gm PO DAILY 12/20/22 01/05/23 History Ipratropium-Albuterol Nebulize 3 ml INHALATION RT-QID #120 each 12/25/22 01/05/23 Rx [Duoneb 0.5 mg-3 mg/3 ml Soln] Tobramycin [Tobramycin Nebules] 300 mg IH Q48H #15 each 12/26/22 01/05/23 Rx Furosemide [Lasix] 20 mg PO Q2D 01/05/23 01/05/23 History Allergies Allergy/AdvReac Type Severity Reaction Status Date / Time cefepime Allergy SHUT DOWN Verified 01/05/23 08:14 KIDNEYS ether Allergy Anaphylaxis Verified 01/05/23 08:14 Iodinated Contrast Media Allergy PAST Verified 01/05/23 08:14 [Iodinated Contrast Media - HISTORY OF Oral and] KIDNEY PROBLEMS venom-honey bee Allergy Anaphylaxis Verified 01/05/23 08:14 sulfamethoxazole AdvReac states Verified 01/05/23 08:14 [From Bactrim] effects kidneys trimethoprim [From Bactrim] AdvReac states Verified 01/05/23 08:14 effects kidneys Physical Exam Vitals: Vital Signs Temp Pulse Resp BP Pulse Ox 01/05/23 13:30 81 18 134/69 94 L 01/05/23 11:37 68 01/05/23 11:26 72 01/05/23 11:00 73 24 153/80 95 01/05/23 10:00 62 25 H 140/77 95 01/05/23 07:46 76 01/05/23 07:30 71 95 01/05/23 06:25 71 20 133/71 95 01/05/23 00:59 88 20 138/74 93 L 01/05/23 00:07 87 01/04/23 23:57 79 01/04/23 22:48 98.1 F 90 22 161/82 95 Intake and Output 01/04/23 01/05/23 01/05/23 22:59 06:59 14:59 Output Total 1700 Balance -1700 Output: Urine 1700 Other: Weight 63.503 kg GENERAL EXAM: Alert, thin 77-year-old male, on room air, comfortable in no apparent distress. HEAD: Normocephalic. EYES: Normal reaction of pupils, equal size. NOSE: Clear with pink turbinates. THROAT: No erythema or exudates. NECK: No masses, no JVD. CHEST: No chest wall deformity. LUNGS: Equal air entry with faint crackles in the bilateral bases. Diminished. CVS: S1 and S2 normal with no audible murmur, regular rhythm. ABDOMEN: Dressing/binder in place. No hepatosplenomegaly, normal bowel sounds, no guarding or rigidity. SPINE: No scoliosis or deformity SKIN: No rashes CENTRAL NERVOUS SYSTEM: No focal deficits, tone is normal in all 4 extremities. EXTREMITIES: There is no peripheral edema. No clubbing, no cyanosis. Peripheral pulses are intact. Results - Laboratory Findings CBC and BMP: 01/04/23 23:31 01/04/23 23:31 PT/INR, D-dimer PT 10.5 sec (10.0-12.5) 01/04/23 23:31 INR 0.9 (<1.2) 01/04/23 23:31 Abnormal lab findings: Abnormal Labs 01/04/23 01/04/23 01/04/23 23:31 23:31 23:31 RBC 3.11 L Hgb 9.4 L Hct 30.3 L MCHC 30.9 L RDW 18.7 H BUN 46 H Creatinine 1.31 H Total Protein 5.7 L Albumin 3.1 L Procalcitonin 0.36 H - Diagnostic Findings Chest x-ray: image reviewed Assessment and Plan Assessment: Dyspnea secondary to acute exacerbation of chronic obstructive pulmonary disease with small bibasilar pleural effusion Recent discharge 12/25/2022 for an acute pseudomonas aeruginosa pneumonia. Was on Avelox in the outpatient setting Previous history of multiple pneumonias from pseudomonas, MRSA, E. coli History of right upper lobe pulmonary nodule with previous radiation, being monitored in the outpatient setting Chronic obstructive pulmonary disease on Trelegy and DuoNeb's in the outpatient setting History of perforated colon requiring colectomy and colostomy and subsequent recent reversal Chronic kidney disease Tracheobronchomalacia Factor V Leiden mutation Hypertension History of anxiety History of dysphagia Plan: The patient was seen and evaluated Chest x-rays, labs and medications reviewed ProCalcitonin 0.36 Initiate Zosyn, bronchodilators, steroids May bring in home Trelegy May require bronchoscopy with BAL if no significant improvement We will continue to follow and make further recommendations based on his clinical status I have personally seen and examined the patient, performed the documentation and the assessment and plan as written. Number of minutes spent on the visit: 20.
[2023-01-05] MEDS ORDERED: PIPERACILLIN-TAZOBACTAM 3.375 GM in SODIUM CHLORIDE 0.9% 100 ML IVPB SCH (16:00)
--- NOTE | 2023-01-05 18:47 | P.HPIM ---
History of Present Illness H&P Date: 01/05/23 Chief Complaint: Short of breath Patient is a 77-year-old male with a past medical history of COPD on home oxygen 2 L as needed, history of Pseudomonas pneumonia, history of bronchial stent placement/removal, CKD stage III, history of lung cancer, history of DVT, hypertension anxiety and prior history of smoking presents underwent extensive lysis of adhesions, small bowel resection and repair of incisional hernia on 02/09/2022.reversal of ostomy and repair of incisional hernia done on November 14, 2022.-This is the wound care center for abdominal wound care. Recently in the hospital from December 20 through December 25. Admitted with pneumonia. Was discharged on Avelox. Sputum culture from December 24 was positive for Pseudomonas aeruginosa. Patient now presents to ER with increasing shortness of breath. Decreased pulse ox at home. Does use home oxygen 2 L. Dry cough. No fever no chills. Appetite is maintained. Tired. Review of systems: GEN.: Tired EYES: None HEENT: None NECK: None RESPIRATORY: As above CARDIOVASCULAR: None GASTROINTESTINAL: None GENITOURINARY: None MUSCULOSKELETAL: Joint pains LYMPHATICS: None HEMATOLOGICAL: None PSYCHIATRY: None NEUROLOGICAL: None Physical examination: VITAL SIGNS: [98.1, 90, 22, 161/82, 95% on 4 L upon presentation] GENERAL: [BMI 23.3, laying in bed awake tired]. EYES: [Pupils equal. Conjunctiva wisam]l. HEENT: [External appearance of nose and ears normal, oral cavity grossly normal]. NECK: [JVD not raised; masses not palpable]. HEART: [First and second heart sounds are normal; some edema]. LUNGS:[ Respiratory rate increased; diminished breath sounds]. ABDOMEN: [Soft, nontender, liver spleen not palpable, no masses palpable]. PSYCH: [Alert and oriented x3; mood and affect tired]l. MUSCULOSKELETAL:No Clubbing/cyanosis;muscles-grossly intact. OA NEUROLOGICAL: [Cranial nerves grossly intact; no facial asymmetry, power and sensation grossly intact]. LYMPHATICS: [No lymph nodes palpable in the axilla and neck] INVESTIGATIONS, reviewed in the clinical context: January 04: White count 8.7 hemoglobin 9.4 platelets 304 sodium 137 potassium 4.6 BUN 46 creatinine 1.31 Procalcitonin 0.36 proBNP 4080 COVID-19 PCR: Not detected EKG tracing personally reviewed by me-normal sinus rhythm. Right bundle-branch block. Chest x-ray film personally reviewed by me-possible bilateral small pleural effusion. Cannot rule out infiltrate. Previous labs: Creatinine 1.4--12/20/2022 Assessment and plan: -Acute COPD exacerbation in an ex-smoker Pulmicort 4 mg nebulizer twice a day, Perforomist twice a day, IV Solu-Medrol 40 mg every 8 Pneumonia suspect gram-negative organism. Patient was recently discharged on Avelox. Recent sputum culture positive for Pseudomonas aeruginosa -IV Zosyn Acute on chronic hypoxic respiratory failure -On oxygen Chronic kidney disease stage III baseline creatinine level -Creatinine 1.4 Suspect anemia of chronic kidney disease. Iron deficiency anemia. , Recently given IV Ferrlecit -Chronic hyperkalemia from underlying COPD Chronically on Lokelma Recent history of reversal of colostomy and umbilical hernia repair on 11/14/2022. Wound care to continue Right upper lobe pulmonary nodule. Patient had PET scan and was treated with SBRT Abdominal wall wound from incision. History of colonic perforation requiring colectomy and colostomy -Wound care-local wound care Obstructive sleep apnea not on CPAP Chronic hypoxic respiratory failure, from underlying COPD -on home oxygen 2 L -Chronic dysphagia On nectar thick liquids History of DVT Essential Hypertension -Lopressor 25 mg twice a day Care was discussed with the patient. Pulmonary and ID consulted. Patient is significantly short of breath. Given the complexity and severity of patient's condition expect the patient to be in the hospital at least for 2 overnights Past Medical History Past Medical History: Blood Disorder, Cancer, COPD, Deep Vein Thrombosis (DVT), GERD/Reflux, Hypertension, Pneumonia, Renal Disease Additional Past Medical History / Comment(s): hx of pseudomonus lung infection, uses CPAP not for sleep apnea, O2 prn 2l prn, diverticulits, Factor V Leiden, hx of bronchial silicone stent now removed, PICC line in past now removed, past hx dialysis for kidney damage, none currently, Stage 3 renal disease, Lung cancer - diagnosed and treated down in [place], colostomy with reversal, hernia repair History of Any Multi-Drug Resistant Organisms: MRSA, Other MDRO Date of last positivie culture/infection: 08/30/21-MRSA MDRO Source:: Sputum-MDRO & MRSA Past Surgical History: Hernia Repair, Tonsillectomy Additional Past Surgical History / Comment(s): bronchoscopy, bronchial silicone stent, now removed, fatty tumor removed from chest area, COLONOSCOPY, alexandre cataract, hernia repair, ileostomy/colostomy reversal Past Anesthesia/Blood Transfusion Reactions: Previous Problems w/ Anesthesia Additional Past Anesthesia/Blood Transfusion Reaction / Comment(s): "as turned black and blue from ETHER". FACTOR V LEIDEN Past Psychological History: Anxiety Smoking Status: Former smoker Past Alcohol Use History: None Reported Past Drug Use History: None Reported - Past Family History Father Family Medical History: Cancer Additional Family Medical History / Comment(s): colon cancer Mother Family Medical History: Cancer Additional Family Medical History / Comment(s): leukemia Medications and Allergies Home Medications Medication Instructions Recorded Confirmed Type Montelukast Sodium [Singulair] 10 mg PO HS 01/24/14 01/05/23 History Metoprolol Tartrate [Lopressor] 25 mg PO BID 07/25/16 01/05/23 History L.acidoph,Paracasei, B.lactis 1 cap PO DAILY 09/01/18 01/05/23 History [Probiotic] allopurinoL [Zyloprim] 100 mg PO HS 11/21/19 01/05/23 History Albuterol Sulfate [Ventolin HFA] 2 puff INHALATION RT-QID PRN 10/21/21 01/05/23 History Fluticasone/Umeclidin/Vilanter 1 puff INHALATION RT-DAILY 10/21/21 01/05/23 History [Trelegy Ellipta 100-62.5-25] Cyanocobalamin (Vitamin B-12) 1,000 mcg PO DAILY 07/02/22 01/05/23 History [Vitamin B-12] Sodium Bicarbonate Tab 650 mg PO BID #60 tab 07/04/22 01/05/23 Rx Famotidine [Pepcid] 20 mg PO DAILY 07/11/22 01/05/23 History ALPRAZolam [Xanax] 0.5 mg PO HS 11/06/22 01/05/23 History Budesonide 0.5 mg INHALATION RT-BID 11/06/22 01/05/23 History Cetirizine HCl [Zyrtec] 10 mg PO DAILY 11/06/22 01/05/23 History Folic Acid 1 mg PO DAILY 11/06/22 01/05/23 History Sodium Zirconium Cyclosilicate 10 gm PO DAILY@1400 11/06/22 01/05/23 History [Lokelma] guaiFENesin [guaiFENesin ER] 600 mg PO BID 11/06/22 01/05/23 History Magnesium Oxide [Mag-Ox] 400 mg PO BID 30 Days #60 tab 11/10/22 01/05/23 Rx Aspirin EC [Ecotrin Low Dose] 81 mg PO DAILY 12/20/22 01/05/23 History Cholecalciferol [Vitamin D3 (25 50 mcg PO DAILY 12/20/22 01/05/23 History Mcg = 1000 Iu)] Doxazosin [Cardura] 4 mg PO HS 12/20/22 01/05/23 History polyethylene glycoL 3350 [Miralax] 17 gm PO DAILY 12/20/22 01/05/23 History Ipratropium-Albuterol Nebulize 3 ml INHALATION RT-QID #120 each 12/25/22 01/05/23 Rx [Duoneb 0.5 mg-3 mg/3 ml Soln] Tobramycin [Tobramycin Nebules] 300 mg IH Q48H #15 each 12/26/22 01/05/23 Rx Furosemide [Lasix] 20 mg PO Q2D 01/05/23 01/05/23 History Allergies Allergy/AdvReac Type Severity Reaction Status Date / Time cefepime Allergy SHUT DOWN Verified 01/05/23 08:14 KIDNEYS ether Allergy Anaphylaxis Verified 01/05/23 08:14 Iodinated Contrast Media Allergy PAST Verified 01/05/23 08:14 [Iodinated Contrast Media - HISTORY OF Oral and] KIDNEY PROBLEMS venom-honey bee Allergy Anaphylaxis Verified 01/05/23 08:14 sulfamethoxazole AdvReac states Verified 01/05/23 08:14 [From Bactrim] effects kidneys trimethoprim [From Bactrim] AdvReac states Verified 01/05/23 08:14 effects kidneys Physical Exam Vitals: Vital Signs Temp Pulse Resp BP Pulse Ox 01/05/23 07:46 76 01/05/23 07:30 71 95 01/05/23 06:25 71 20 133/71 95 01/05/23 00:59 88 20 138/74 93 L 01/05/23 00:07 87 01/04/23 23:57 79 01/04/23 22:48 98.1 F 90 22 161/82 95 Intake and Output 01/04/23 01/05/23 01/05/23 22:59 06:59 14:59 Output Total 1700 Balance -1700 Output: Urine 1700 Other: Weight 63.503 kg Results CBC & Chem 7: 01/04/23 23:31 01/04/23 23:31 Labs: Abnormal Lab Results - Last 24 Hours (Table) 01/04/23 01/04/23 01/04/23 Range/Units 23:31 23:31 23:31 RBC 3.11 L (4.30-5.90) m/uL Hgb 9.4 L (13.0-17.5) gm/dL Hct 30.3 L (39.0-53.0) % MCHC 30.9 L (31.0-37.0) g/dL RDW 18.7 H (11.5-15.5) % BUN 46 H (9-20) mg/dL Creatinine 1.31 H (0.66-1.25) mg/dL Total Protein 5.7 L (6.3-8.2) g/dL Albumin 3.1 L (3.5-5.0) g/dL Procalcitonin 0.36 H (0.02-0.09) ng/mL
[2023-01-05] MEDS: FORMOTEROL FUMARATE 20 MCG/2 ML NEBU INHALATION SCH (20:22)
[2023-01-05] MEDS: BUDESONIDE 1 MG/2 ML NEBU INHALATION SCH (20:23)
[2023-01-05] MEDS: methylPREDNISolone SOD SUCCI 40 MG/ML 1 ML VIAL IV SCH (21:02)
[2023-01-05] MEDS: ENOXAPARIN 40 MG/0.4 ML SYRINGE SQ SCH (21:02)
[2023-01-05] MEDS: DOXAZOSIN 4 MG TAB PO SCH (21:06)
[2023-01-05] MEDS: ALPRAZolam 0.5 MG TAB PO SCH (21:06)
[2023-01-05] MEDS: allopurinoL 100 MG TAB PO SCH (21:06)
[2023-01-05] MEDS: MONTELUKAST 10 MG TAB PO SCH (21:06)
[2023-01-05] MEDS: PIPERACILLIN-TAZOBACTAM 3.375 GM in SODIUM CHLORIDE 0.9% 100 ML IVPB SCH (21:07)
--- NOTE | 2023-01-05 22:20 | P.CONS ---
History of Present Illness - Reason for Consult Consult date: 01/05/23 - History of Present Illness Patient is a 77-year-old male with a past medical history significant for hypertension COPD history of recurrent pseudomonal pneumonia did have diverticulitis requiring laparotomy diverticulosis subsequently reversal patient presenting to the hospital concerning for increasing shortness of breath and cough that apparently has been getting worse for the last day or 2 patient cough has been moderate intensity with minimal sputum production no hemoptysis denies any further chest pain. Denies any nausea no vomiting no abdominal pain or any diarrhea patient on presentation to the hospital was afebrile and no fever has been recorded subsequently patient was mildly hypoxic with O2 sats of 93% is currently on 2 L nasal cannula oxygen patient did have a normal white count [facility] has been mildly elevated liver enzymes are normal Pro-Prince to 0.36 COVID testing was negative patient did have a chest x-ray small bilateral pleural effusion patient was started on Zosyn infectious was consulted for further management of antibiotic therapy Past Medical History Past Medical History: Blood Disorder, Cancer, COPD, Deep Vein Thrombosis (DVT), GERD/Reflux, Hypertension, Pneumonia, Renal Disease Additional Past Medical History / Comment(s): hx of pseudomonus lung infection, uses CPAP not for sleep apnea, O2 prn 2l prn, diverticulits, Factor V Leiden, hx of bronchial silicone stent now removed, PICC line in past now removed, past hx dialysis for kidney damage, none currently, Stage 3 renal disease, Lung cancer - diagnosed and treated down in [place], colostomy with reversal, hernia repair History of Any Multi-Drug Resistant Organisms: MRSA, Other MDRO Year Discovered:: 08/30/21-MRSA MDRO Source:: Sputum-MDRO & MRSA Past Surgical History: Hernia Repair, Tonsillectomy Additional Past Surgical History / Comment(s): bronchoscopy, bronchial silicone stent, now removed, fatty tumor removed from chest area, COLONOSCOPY, alexandre cataract, hernia repair, ileostomy/colostomy reversal Past Anesthesia/Blood Transfusion Reactions: Previous Problems w/ Anesthesia Additional Past Anesthesia/Blood Transfusion Reaction / Comm: "as infant turned black and blue from ETHER". FACTOR V LEIDEN Past Psychological History: Anxiety Smoking Status: Former smoker Past Alcohol Use History: None Reported Past Drug Use History: None Reported - Past Family History Father Family Medical History: Cancer Additional Family Medical History / Comment(s): colon cancer Mother Family Medical History: Cancer Additional Family Medical History / Comment(s): leukemia Medications and Allergies Home Medications Medication Instructions Recorded Confirmed Type Montelukast Sodium [Singulair] 10 mg PO HS 01/24/14 01/05/23 History Metoprolol Tartrate [Lopressor] 25 mg PO BID 07/25/16 01/05/23 History L.acidoph,Paracasei, B.lactis 1 cap PO DAILY 09/01/18 01/05/23 History [Probiotic] allopurinoL [Zyloprim] 100 mg PO HS 11/21/19 01/05/23 History Albuterol Sulfate [Ventolin HFA] 2 puff INHALATION RT-QID PRN 10/21/21 01/05/23 History Fluticasone/Umeclidin/Vilanter 1 puff INHALATION RT-DAILY 10/21/21 01/05/23 History [Trelegy Ellipta 100-62.5-25] Cyanocobalamin (Vitamin B-12) 1,000 mcg PO DAILY 07/02/22 01/05/23 History [Vitamin B-12] Sodium Bicarbonate Tab 650 mg PO BID #60 tab 07/04/22 01/05/23 Rx Famotidine [Pepcid] 20 mg PO DAILY 07/11/22 01/05/23 History ALPRAZolam [Xanax] 0.5 mg PO HS 11/06/22 01/05/23 History Budesonide 0.5 mg INHALATION RT-BID 11/06/22 01/05/23 History Cetirizine HCl [Zyrtec] 10 mg PO DAILY 11/06/22 01/05/23 History Folic Acid 1 mg PO DAILY 11/06/22 01/05/23 History Sodium Zirconium Cyclosilicate 10 gm PO DAILY@1400 11/06/22 01/05/23 History [Lokelma] guaiFENesin [guaiFENesin ER] 600 mg PO BID 11/06/22 01/05/23 History Magnesium Oxide [Mag-Ox] 400 mg PO BID 30 Days #60 tab 11/10/22 01/05/23 Rx Aspirin EC [Ecotrin Low Dose] 81 mg PO DAILY 12/20/22 01/05/23 History Cholecalciferol [Vitamin D3 (25 50 mcg PO DAILY 12/20/22 01/05/23 History Mcg = 1000 Iu)] Doxazosin [Cardura] 4 mg PO HS 12/20/22 01/05/23 History polyethylene glycoL 3350 [Miralax] 17 gm PO DAILY 12/20/22 01/05/23 History Ipratropium-Albuterol Nebulize 3 ml INHALATION RT-QID #120 each 12/25/22 01/05/23 Rx [Duoneb 0.5 mg-3 mg/3 ml Soln] Tobramycin [Tobramycin Nebules] 300 mg IH Q48H #15 each 12/26/22 01/05/23 Rx Furosemide [Lasix] 20 mg PO Q2D 01/05/23 01/05/23 History Allergies Allergy/AdvReac Type Severity Reaction Status Date / Time cefepime Allergy SHUT DOWN Verified 01/05/23 08:14 KIDNEYS ether Allergy Anaphylaxis Verified 01/05/23 08:14 Iodinated Contrast Media Allergy PAST Verified 01/05/23 08:14 [Iodinated Contrast Media - HISTORY OF Oral and] KIDNEY PROBLEMS venom-honey bee Allergy Anaphylaxis Verified 01/05/23 08:14 sulfamethoxazole AdvReac states Verified 01/05/23 08:14 [From Bactrim] effects kidneys trimethoprim [From Bactrim] AdvReac states Verified 01/05/23 08:14 effects kidneys Physical Exam Vitals: Vital Signs Temp Pulse Resp BP Pulse Ox 01/05/23 11:37 68 01/05/23 11:26 72 01/05/23 10:00 62 25 H 140/77 95 01/05/23 07:46 76 01/05/23 07:30 71 95 01/05/23 06:25 71 20 133/71 95 01/05/23 00:59 88 20 138/74 93 L 01/05/23 00:07 87 01/04/23 23:57 79 01/04/23 22:48 98.1 F 90 22 161/82 95 Intake and Output 01/04/23 01/05/23 01/05/23 22:59 06:59 14:59 Output Total 1700 Balance -1700 Output: Urine 1700 Other: Weight 63.503 kg Results CBC & Chem 7: 01/04/23 23:31 01/04/23 23:31 Labs: Abnormal Lab Results - Last 24 Hours (Table) 10/01/04/23 01/04/23 Range/Units 23:31 23:31 23:31 RBC 3.11 L (4.30-5.90) m/uL Hgb 9.4 L (13.0-17.5) gm/dL Hct 30.3 L (39.0-53.0) % MCHC 30.9 L (31.0-37.0) g/dL RDW 18.7 H (11.5-15.5) % BUN 46 H (9-20) mg/dL Creatinine 1.31 H (0.66-1.25) mg/dL Total Protein 5.7 L (6.3-8.2) g/dL Albumin 3.1 L (3.5-5.0) g/dL Procalcitonin 0.36 H (0.02-0.09) ng/mL Assessment and Plan Plan: 1patient present to hospital with increasing shortness of breath and cough which is likely multifactorial with possible COPD exacerbation with tracheobronchitis clinically not behaving as pneumonia however did have elevated procalcitonin that is mildly concerning 2-patient with a history of recurrent Pseudomonas pneumonia in the last sputum culture Pseudomonas was pretty resistant to all antibiotics 3-we will try to obtain sputum for Gram stain and culture 4-May continue with empiric Zosyn along with the bronchodilators and steroids and diuretics We will follow on clinical condition and cultures to further adjust medication if needed Thank you for this consultation we will follow the patient along with you Dictation was produced using [employer] dictation software. please excuse any grammatical, word or spelling errors. Time with Patient: Greater than 30
[2023-01-06] MEDS: methylPREDNISolone SOD SUCCI 40 MG/ML 1 ML VIAL IV SCH ×3 (00:29→16:42)
[2023-01-06] MEDS: PIPERACILLIN-TAZOBACTAM 3.375 GM in SODIUM CHLORIDE 0.9% 100 ML IVPB SCH ×3 (05:39→20:21)
[2023-01-06] MEDS: IPRATROPIUM-ALBUTEROL 3 ML NEB INHALATION SCH ×4 (07:48→19:53)
[2023-01-06] MEDS: FORMOTEROL FUMARATE 20 MCG/2 ML NEBU INHALATION SCH ×2 (07:48→19:53)
[2023-01-06] MEDS: BUDESONIDE 1 MG/2 ML NEBU INHALATION SCH ×2 (07:48→19:53)
[2023-01-06] MEDS: ASPIRIN 81 MG PO SCH (08:53)
[2023-01-06] MEDS: polyethylene glycoL 3350 17 GM POWD.PACK PO SCH (08:53)
[2023-01-06] MEDS: guaiFENesin 600 MG TABLET.ER PO SCH ×2 (08:53→20:22)
[2023-01-06] MEDS: CHOLECALCIFEROL 25 MCG (1000 IU) TABLET PO SCH (08:53)
[2023-01-06] MEDS: ENOXAPARIN 40 MG/0.4 ML SYRINGE SQ SCH (08:53)
[2023-01-06] MEDS: SODIUM BICARBONATE TAB 650 MG TAB PO SCH ×2 (08:53→20:22)
[2023-01-06] MEDS: LACTOBACILLUS ACIDOPHILUS/PECT 1 EACH CAPSULE PO SCH (08:53)
[2023-01-06] MEDS: CYANOCOBALAMIN 500 MCG TAB PO SCH (08:53)
[2023-01-06] MEDS: MAGNESIUM OXIDE 400 MG TAB PO SCH ×2 (08:54→20:22)
[2023-01-06] MEDS: FAMOTIDINE 20 MG TAB PO SCH (08:54)
[2023-01-06] MEDS: FOLIC ACID 1 MG TAB PO SCH (08:54)
[2023-01-06] MEDS: LORATADINE 10 MG TAB PO SCH (08:54)
[2023-01-06] MEDS: METOPROLOL TARTRATE 25 MG TAB PO SCH ×2 (08:55→20:22)
--- NOTE | 2023-01-06 11:39 | P.PN ---
Subjective Progress Note Date: 01/06/23 This is a 77-year-old male patient with a history of chronic kidney disease, post colectomy secondary to perforation and subsequent colostomy with recent reversal, left lower extremity DVT, factor V laden mutation, tracheobronchial malacia, moderate chronic obstructive pulmonary disease, solitary lung nodule status post radiation, history of frequent MRSA and pseudomonas pneumonias. He was recently admitted for bilateral pneumonia and his sputum culture was positive for pseudomonas aeruginosa. He was discharged home 12/25/2022 on Avelox 5 days. Blood cultures were negative. He presented here again to the emergency room last evening after a 2 to three-day history of increasing shortness of breath, cough and congestion. Chest x-ray shows no consolidation. Small bilateral pleural effusions. White count 8.7. Hemoglobin 9.4. Platelets 304. Sodium 137. Potassium 4.6. Bicarb 27. BUN 46. Creatinine 1.31. Glucose 89. COVID-19 screen negative. Pro-calcitonin 0.36. ProBNP level 4080. Troponin negative 1. He's been initiated on DuoNeb inhalations, Mucinex, Singulair. He is seen today in consultation in the emergency department. He is currently sitting up on a stretcher. Awake and alert in no acute distress. He has a loose nonproductive cough. Maintaining O2 saturations in the 90s on room air. He's afebrile. Hemodynamically stable. The patient is seen today 01/06/2023 in follow-up on the regular medical floor. He is currently sitting up at the bedside. Awake and alert in no acute distress. Maintaining O2 saturations in the 90s on 3 L/m per nasal cannula. He still has a loose nonproductive cough. Still dyspneic with conversation and minimal activity. He is continued on DuoNeb inhalations, Pulmicort and Perforomist inhalations, Mucinex, IV steroids and Singulair. Antibiotics in the form of Zosyn. ID is on the case. We will plan for bronchoscopy with BAL tomorrow to help clear his secretions. Objective - Vital Signs Vital signs: Vital Signs Temp 98.0 F 01/06/23 07:00 Pulse 76 01/06/23 11:26 Resp 16 01/06/23 07:00 BP 138/77 01/06/23 11:01 Pulse Ox 98 01/06/23 07:51 FiO2 Intake & Output 01/05/23 01/06/23 01/06/23 18:59 06:59 18:59 Intake Total 180 Output Total 1800 Balance -1800 180 Weight 63.503 kg Intake: Oral 180 Output: Urine 1800 Other: Voiding Method Toilet # Voids 1 - Exam GENERAL EXAM: Alert, pleasant 77-year-old male, sitting up at the bedside, on 3 L nasal cannula, in no apparent distress. HEAD: Normocephalic. EYES: Normal reaction of pupils, equal size. NOSE: Clear with pink turbinates. THROAT: No erythema or exudates. NECK: No masses, no JVD. CHEST: No chest wall deformity. LUNGS: Equal air entry with faint crackles in the bilateral bases, few scattered rhonchi. Diminished. CVS: S1 and S2 normal with no audible murmur, regular rhythm. ABDOMEN: Dressing/binder in place. No hepatosplenomegaly, normal bowel sounds, no guarding or rigidity. SPINE: No scoliosis or deformity SKIN: No rashes CENTRAL NERVOUS SYSTEM: No focal deficits, tone is normal in all 4 extremities. EXTREMITIES: There is no peripheral edema. No clubbing, no cyanosis. Peripheral pulses are intact. - Labs CBC & Chem 7: 01/04/23 23:31 01/04/23 23:31 Assessment and Plan Assessment: Dyspnea secondary to acute exacerbation of chronic obstructive pulmonary disease with small bibasilar pleural effusion Recent discharge 12/25/2022 for an acute pseudomonas aeruginosa pneumonia. Was on Avelox in the outpatient setting Previous history of multiple pneumonias from multiple bacteria including pseudomonas, MRSA, E. coli History of right upper lobe pulmonary nodule with previous radiation, being monitored in the outpatient setting Chronic obstructive pulmonary disease on Trelegy and DuoNeb's in the outpatient setting History of perforated colon requiring colectomy and colostomy and subsequent recent reversal Chronic kidney disease Tracheobronchomalacia Factor V Leiden mutation Hypertension History of anxiety History of dysphagia Plan: The patient was seen and evaluated Medications reviewed Continue Zosyn, bronchodilators, steroids We'll plan for bronchoscopy with BAL tomorrow We will continue to follow I have personally seen and examined the patient, performed the documentation and the assessment and plan as written. Number of minutes spent on the visit: 10.
[2023-01-06] MEDS: SODIUM ZIRCONIUM CYCLOSILICATE 10 GM PACKET PO SCH (14:09)
--- NOTE | 2023-01-06 14:37 | P.CONS ---
History of Present Illness - Reason for Consult Consult date: 01/06/23 wound care - History of Present Illness This is a 77-year-old patient being seen for a nonhealing ulceration to the abdomen. Patient had surgery at the end of November resulting in an ulceration. Patient has a midline ulceration measuring approximately 4.0 x 0.3 x 0.1 cm with granulation throughout the wound that no tunneling or undermining noted. Patient has been utilizing triple antibiotic ointment and Xeroform to both ulcerations. He was under care with his surgeon. With homecare changing the dressings. Review Of Systems: Constitutional: No fever, no chills, no night sweats. No weight change. No weakness, fatigue or lethargy. No daytime sleepiness. Integumentary:reports wounds, no lesions. No rash or pruritus. No unusual bruising. No change in hair or nails. Physical exam: General Appearance: Alert, cooperative, no distress, appears stated age. Skin: See HPI all other Skin color, texture, tugor normal, no rashes or lesions. Neurologic: Alert oriented x3 Assessment: 1. Nonhealing ulceration with fatty layer exposure other site Plan: 1. Apply collagen, saline moistened gauze and border foam to the site. Use skin prep to the site. change Thursday Thank you for the consultation any questions to contact the wound care center DNP note has been reviewed and discussed with Dr. Turner and the impression and plan of care has been directed as dictated. Past Medical History Past Medical History: Blood Disorder, Cancer, COPD, Deep Vein Thrombosis (DVT), GERD/Reflux, Hypertension, Pneumonia, Renal Disease Additional Past Medical History / Comment(s): hx of pseudomonus lung infection, uses CPAP not for sleep apnea, O2 prn 2l prn, diverticulits, Factor V Leiden, hx of bronchial silicone stent now removed, PICC line in past now removed, past hx dialysis for kidney damage, none currently, Stage 3 renal disease, Lung cancer - diagnosed and treated down in [place], colostomy with reversal, hernia repair History of Any Multi-Drug Resistant Organisms: MRSA, Other MDRO Year Discovered:: 08/30/21-MRSA MDRO Source:: Sputum-MDRO & MRSA Past Surgical History: Hernia Repair, Tonsillectomy Additional Past Surgical History / Comment(s): bronchoscopy, bronchial silicone stent, now removed, fatty tumor removed from chest area, COLONOSCOPY, alexandre cataract, hernia repair, ileostomy/colostomy reversal Past Anesthesia/Blood Transfusion Reactions: Previous Problems w/ Anesthesia Additional Past Anesthesia/Blood Transfusion Reaction / Comm: "as infant turned black and blue from ETHER". FACTOR V LEIDEN Past Psychological History: Anxiety Smoking Status: Former smoker Past Alcohol Use History: None Reported Past Drug Use History: None Reported - Past Family History Father Family Medical History: Cancer Additional Family Medical History / Comment(s): colon cancer Mother Family Medical History: Cancer Additional Family Medical History / Comment(s): leukemia Medications and Allergies Home Medications Medication Instructions Recorded Confirmed Type Montelukast Sodium [Singulair] 10 mg PO HS 01/24/14 01/05/23 History Metoprolol Tartrate [Lopressor] 25 mg PO BID 07/25/16 01/05/23 History L.acidoph,Paracasei, B.lactis 1 cap PO DAILY 09/01/18 01/05/23 History [Probiotic] allopurinoL [Zyloprim] 100 mg PO HS 11/21/19 01/05/23 History Albuterol Sulfate [Ventolin HFA] 2 puff INHALATION RT-QID PRN 10/21/21 01/05/23 History Fluticasone/Umeclidin/Vilanter 1 puff INHALATION RT-DAILY 10/21/21 01/05/23 History [Trelegy Ellipta 100-62.5-25] Cyanocobalamin (Vitamin B-12) 1,000 mcg PO DAILY 07/02/22 01/05/23 History [Vitamin B-12] Sodium Bicarbonate Tab 650 mg PO BID #60 tab 07/04/22 01/05/23 Rx Famotidine [Pepcid] 20 mg PO DAILY 07/11/22 01/05/23 History ALPRAZolam [Xanax] 0.5 mg PO HS 11/06/22 01/05/23 History Budesonide 0.5 mg INHALATION RT-BID 11/06/22 01/05/23 History Cetirizine HCl [Zyrtec] 10 mg PO DAILY 11/06/22 01/05/23 History Folic Acid 1 mg PO DAILY 11/06/22 01/05/23 History Sodium Zirconium Cyclosilicate 10 gm PO DAILY@1400 11/06/22 01/05/23 History [Lokelma] guaiFENesin [guaiFENesin ER] 600 mg PO BID 11/06/22 01/05/23 History Magnesium Oxide [Mag-Ox] 400 mg PO BID 30 Days #60 tab 11/10/22 01/05/23 Rx Aspirin EC [Ecotrin Low Dose] 81 mg PO DAILY 12/20/22 01/05/23 History Cholecalciferol [Vitamin D3 (25 50 mcg PO DAILY 12/20/22 01/05/23 History Mcg = 1000 Iu)] Doxazosin [Cardura] 4 mg PO HS 12/20/22 01/05/23 History polyethylene glycoL 3350 [Miralax] 17 gm PO DAILY 12/20/22 01/05/23 History Ipratropium-Albuterol Nebulize 3 ml INHALATION RT-QID #120 each 12/25/22 01/05/23 Rx [Duoneb 0.5 mg-3 mg/3 ml Soln] Tobramycin [Tobramycin Nebules] 300 mg IH Q48H #15 each 12/26/22 01/05/23 Rx Furosemide [Lasix] 20 mg PO Q2D 01/05/23 01/05/23 History Allergies Allergy/AdvReac Type Severity Reaction Status Date / Time cefepime Allergy SHUT DOWN Verified 01/05/23 08:14 KIDNEYS ether Allergy Anaphylaxis Verified 01/05/23 08:14 Iodinated Contrast Media Allergy PAST Verified 01/05/23 08:14 [Iodinated Contrast Media - HISTORY OF Oral and] KIDNEY PROBLEMS venom-honey bee Allergy Anaphylaxis Verified 01/05/23 08:14 sulfamethoxazole AdvReac states Verified 01/05/23 08:14 [From Bactrim] effects kidneys trimethoprim [From Bactrim] AdvReac states Verified 01/05/23 08:14 effects kidneys Physical Exam Vitals: Vital Signs Temp Pulse Pulse Resp BP BP Pulse Ox 01/06/23 14:12 97.7 F 75 14 127/72 96 01/06/23 11:26 76 01/06/23 11:21 75 01/06/23 11:01 72 138/77 01/06/23 08:12 84 01/06/23 08:00 80 01/06/23 07:51 78 98 01/06/23 07:00 98.0 F 100 16 180/70 100 10/31/23 00:30 97.5 F L 85 17 93/50 99 01/05/23 20:46 90 01/05/23 20:37 87 01/05/23 20:36 87 01/05/23 20:25 85 01/05/23 18:29 18 01/05/23 18:04 97.6 F 82 14 150/78 99 01/05/23 17:40 84 18 134/81 96 01/05/23 15:32 84 01/05/23 15:20 80 Intake and Output 01/05/23 01/06/23 01/06/23 22:59 06:59 14:59 Intake Total 360 Balance 360 Intake: Oral 360 Other: Voiding Method Toilet Toilet Toilet # Voids 1 1 1 Weight 63.503 kg Results CBC & Chem 7: 01/04/23 23:31 01/04/23 23:31 Assessment and Plan (1) Non-pressure chronic ulcer of skin of other sites with fat layer exposed Current Visit: No Status: Acute Code(s): L98.492 - NON-PRS CHRONIC ULCER OF SKIN OF SITES W FAT LAYER EXPOSED SNOMED Code(s): 65628741
--- NOTE | 2023-01-06 15:37 | P.PN ---
Subjective Progress Note Date: 01/06/23 Principal diagnosis: Tracheobronchitis question of pneumonia Patient is a 77-year-old male with a past medical history significant for hypertension COPD history of recurrent pseudomonal pneumonia did have diverticulitis requiring laparotomy diverticulosis subsequently reversal patient presenting to the hospital concerning for increasing shortness of breath and cough , patient been diagnosed with possible COPD exacerbation and possible fluid overload. On today's evaluation that is01/06/2023, the patient remains to be afebrile , the patient is breathing comfortably on room air without need for supplemental oxygen, the patient denies any chest pain and cough has decreased in intensity and less sputum production, patient denies abdominal pain and no nausea/vomiting or diarrhea No lab draw today Objective - Vital Signs Vital signs: Vital Signs Temp 98.0 F 01/06/23 07:00 Pulse 76 01/06/23 11:26 Resp 16 01/06/23 07:00 BP 138/77 01/06/23 11:01 Pulse Ox 98 01/06/23 07:51 FiO2 Intake & Output 01/05/23 01/06/23 01/06/23 18:59 06:59 18:59 Intake Total 180 Output Total 1800 Balance -1800 180 Weight 63.503 kg Intake: Oral 180 Output: Urine 1800 Other: Voiding Method Toilet Toilet # Voids 1 - Exam GENERAL DESCRIPTION: An elderly male up in bed in no distress RESPIRATORY SYSTEM: Unlabored breathing , coarse breath sounds bilaterally HEART: S1 S2 regular rate and rhythm , ABDOMEN: Soft , no tenderness EXTREMITIES: No edema feet - Labs CBC & Chem 7: 01/04/23 23:31 01/04/23 23:31 Assessment and Plan (1) Tracheobronchitis Current Visit: Yes Status: Acute Code(s): J40 - BRONCHITIS, NOT SPECIFIED ACUTE OR CHRONIC SNOMED Code(s): 16581641 Plan: 1patient present to hospital with increasing shortness of breath and cough which is likely multifactorial with possible COPD exacerbation with tracheobronchitis clinically not behaving as pneumonia however did have elevated procalcitonin that is mildly concerning 2-patient with a history of recurrent Pseudomonas pneumonia in the last sputum culture Pseudomonas was resistant to all antibiotics 3-we will try to obtain sputum for Gram stain and culture 4Patient seemed to have shown some clinical improvement and will continue with empiric Zosyn along with the bronchodilators and steroids and diuretics Dictation was produced using [employer] dictation software. please excuse any grammatical, word or spelling errors. Time with Patient: Less than 30
--- NOTE | 2023-01-06 19:33 | P.PN ---
Progress Note - Text Progress Note Date: 01/06/23 Chief Complaint: Short of breath Patient is a 77-year-old male with a past medical history of COPD on home oxygen 2 L as needed, history of Pseudomonas pneumonia, history of bronchial stent placement/removal, CKD stage III, history of lung cancer, history of DVT, hypert ension anxiety and prior history of smoking presents underwent extensive lysis of adhesions, small bowel resection and repair of incisional hernia on 02/09/2022.reversal of ostomy and repair of incisional hernia done on November 14, 2022.-This is the wound care center for abdominal wound care. Recently in the hospital from December 20 through December 25. Admitted with pneumonia. Was discharged on Avelox. Sputum culture from December 24 was positive for Pseudomonas aeruginosa. Patient now presents to ER with increasing shortness of breath. Decreased pulse ox at home. Does use home oxygen 2 L. Dry cough. No fever no chills. Appetite is maintained. Tired. January 06: Bringing up some frothy sputum. Plan for bronchoscopy with lavage tomorrow. Oral intake good. Sitting at edge of the bed. Active Medications Albuterol/Ipratropium (Ipratropium-Albuterol 3 Ml Neb) 3 ml INHALATION RT-QID [facility] Last Admin: 01/06/23 15:15 Dose: 3 ml Albuterol/Ipratropium (Ipratropium-Albuterol 3 Ml Neb) 3 ml INHALATION RT-Q2H PRN PRN Reason: Shortness Of Breath Or Wheezing Allopurinol (Allopurinol 100 Mg Tab) 100 mg PO [facility] Last Admin: 01/05/23 21:06 Dose: 100 mg Alprazolam (Alprazolam 0.5 Mg Tab) 0.5 mg PO [facility] Last Admin: 01/05/23 21:06 Dose: 0.5 mg Aspirin (Aspirin 81 Mg) 81 mg PO DAILY [facility] Last Admin: 01/06/23 08:53 Dose: 81 mg Budesonide (Budesonide 1 Mg/2 Ml Nebu) 1 mg INHALATION RT-BID [facility] Last Admin: 01/06/23 07:48 Dose: 1 mg Cholecalciferol (Cholecalciferol 25 Mcg (1000 Iu) Tablet) 50 mcg PO DAILY [facility] Last Admin: 01/06/23 08:53 Dose: 50 mcg Cyanocobalamin (Cyanocobalamin 500 Mcg Tab) 1,000 mcg PO DAILY [facility] Last Admin: 01/06/23 08:53 Dose: 1,000 mcg Doxazosin Mesylate (Doxazosin 4 Mg Tab) 4 mg PO HS [facility] Last Admin: 01/05/23 21:06 Dose: 4 mg Enoxaparin Sodium (Enoxaparin 40 Mg/0.4 Ml Syringe) 40 mg SQ DAILY [facility] Last Admin: 01/06/23 08:53 Dose: 40 mg Famotidine (Famotidine 20 Mg Tab) 20 mg PO DAILY [facility] Last Admin: 01/06/23 08:54 Dose: 20 mg Folic Acid (Folic Acid 1 Mg Tab) 1 mg PO DAILY [facility] Last Admin: 01/06/23 08:54 Dose: 1 mg Formoterol Fumarate (Formoterol Fumarate 20 Mcg/2 Ml Nebu) 20 mcg INHALATION RT-BID [facility] Last Admin: 01/06/23 07:48 Dose: 20 mcg Guaifenesin (Guaifenesin 600 Mg Tablet.Er) 600 mg PO BID [facility] Last Admin: 01/06/23 08:53 Dose: 600 mg Piperacillin Sod/Tazobactam (Sod 3.375 gm/ Sodium Chloride) 100 mls @ 25 mls/hr IVPB Q8H [facility]; Protocol Last Admin: 01/06/23 12:23 Dose: 25 mls/hr Lactobacillus Acidophilus (Lactobacillus Acidophilus/Pect 1 Each Capsule) 1 each PO DAILY [facility] Last Admin: 01/06/23 08:53 Dose: 1 each Loratadine (Loratadine 10 Mg Tab) 10 mg PO DAILY [facility] Last Admin: 01/06/23 08:54 Dose: 10 mg Magnesium Oxide (Magnesium Oxide 400 Mg Tab) 400 mg PO BID [facility] Last Admin: 01/06/23 08:54 Dose: 400 mg Methylprednisolone Sodium Succinate (Methylprednisolone Sod Succi 40 Mg/Ml 1 Ml Vial) 40 mg IV Q8HR [facility] Last Admin: 01/06/23 16:42 Dose: 40 mg Metoprolol Tartrate (Metoprolol Tartrate 25 Mg Tab) 25 mg PO BID [facility] Last Admin: 01/06/23 08:55 Dose: 25 mg Montelukast Sodium (Montelukast 10 Mg Tab) 10 mg PO HS [facility] Last Admin: 01/05/23 21:06 Dose: 10 mg Naloxone HCl (Naloxone 0.4 Mg/Ml 1 Ml Vial) 0.2 mg IVP Q2M PRN PRN Reason: Opioid Reversal Polyethylene Glycol (Polyethylene Glycol 3350 17 Gm Powd.Pack) 17 gm PO DAILY [facility] Last Admin: 01/06/23 08:53 Dose: 17 gm Sodium Bicarbonate (Sodium Bicarbonate Tab 650 Mg Tab) 650 mg PO BID [facility] Last Admin: 01/06/23 08:53 Dose: 650 mg Sodium Zirconium Cyclosilicate (Sodium Zirconium Cyclosilicate 10 Gm Packet) 10 gm PO DAILY@1400 [facility] Last Admin: 01/06/23 14:09 Dose: 10 gm Physical examination: VITAL SIGNS: 97.7, 75, 14, 127/72, 96% room air GENERAL: Sitting of the patient's bed. Some coughing. EYES: Pupils equal. Conjunctiva normal. HEENT: External appearance of nose and ears normal, oral cavity grossly normal. NECK: JVD not raised; masses not palpable. HEART: First and second heart sounds are normal; some edema. LUNGS: Respiratory rate increased; diminished breath sounds. ABDOMEN: Soft, nontender, liver spleen not palpable, no masses palpable. PSYCH: Alert and oriented x3; mood and affect tiredl. MUSCULOSKELETAL:No Clubbing/cyanosis;muscles-grossly intact. OA NEUROLOGICAL: Cranial nerves grossly intact; no facial asymmetry, power and sensation grossly intact. LYMPHATICS: No lymph nodes palpable in the axilla and neck INVESTIGATIONS, reviewed in the clinical context: January 04: White count 8.7 hemoglobin 9.4 platelets 304 sodium 137 potassium 4.6 BUN 46 creatinine 1.31 Procalcitonin 0.36 proBNP 4080 COVID-19 PCR: Not detected EKG tracing personally reviewed by me-normal sinus rhythm. Right bundle-branch block. Chest x-ray film personally reviewed by me-possible bilateral small pleural effusion. Cannot rule out infiltrate. Previous labs: Creatinine 1.4--12/20/2022 Assessment and plan: -Acute COPD exacerbation in an ex-smoker: Slow to respond Pulmicort nebulizer twice a day, Perforomist twice a day, IV Solu-Medrol 40 mg every 8 Pneumonia suspect gram-negative organism. Patient was recently discharged on Avelox. Recent sputum culture positive for Pseudomonas aeruginosa: Slow to respond -IV Zosyn Pending bronchoscopy with lavage tomorrow. Acute on chronic hypoxic respiratory failure -On oxygen Chronic kidney disease stage III baseline creatinine level -Creatinine 1.4 Suspect anemia of chronic kidney disease. Iron deficiency anemia. , Recently given IV Ferrlecit -Chronic hyperkalemia from underlying COPD Chronically on Lokelma Recent history of reversal of colostomy and umbilical hernia repair on 11/14/2022. Wound care to continue Right upper lobe pulmonary nodule. Patient had PET scan and was treated with SBRT Abdominal wall wound from incision. History of colonic perforation requiring colectomy and colostomy -Wound care-local wound care Obstructive sleep apnea not on CPAP Chronic hypoxic respiratory failure, from underlying COPD -on home oxygen 2 L -Chronic dysphagia On nectar thick liquids History of DVT Essential Hypertension -Lopressor 25 mg twice a day Continue current treatment plan. For bronchoscopy with lavage tomorrow.
[2023-01-06] MEDS: DOXAZOSIN 4 MG TAB PO SCH (20:22)
[2023-01-06] MEDS: MONTELUKAST 10 MG TAB PO SCH (20:22)
[2023-01-06] MEDS: allopurinoL 100 MG TAB PO SCH (20:22)
[2023-01-06] MEDS: ALPRAZolam 0.5 MG TAB PO SCH (20:22)
[2023-01-07] MEDS: methylPREDNISolone SOD SUCCI 40 MG/ML 1 ML VIAL IV SCH ×4 (01:01→23:32)
[2023-01-07] MEDS: PIPERACILLIN-TAZOBACTAM 3.375 GM in SODIUM CHLORIDE 0.9% 100 ML IVPB SCH ×3 (05:55→20:19)
[2023-01-07] MEDS: IPRATROPIUM-ALBUTEROL 3 ML NEB INHALATION SCH ×4 (08:23→18:40)
[2023-01-07] MEDS: BUDESONIDE 1 MG/2 ML NEBU INHALATION SCH ×2 (08:23→18:40)
[2023-01-07] MEDS: FORMOTEROL FUMARATE 20 MCG/2 ML NEBU INHALATION SCH ×2 (08:44→18:49)
[2023-01-07] MEDS: ENOXAPARIN 40 MG/0.4 ML SYRINGE SQ SCH (08:45)
[2023-01-07] MEDS: ASPIRIN 81 MG PO SCH (08:45)
[2023-01-07] MEDS: LACTOBACILLUS ACIDOPHILUS/PECT 1 EACH CAPSULE PO SCH (08:45)
[2023-01-07] MEDS: SODIUM BICARBONATE TAB 650 MG TAB PO SCH ×2 (08:46→20:18)
[2023-01-07] MEDS: FAMOTIDINE 20 MG TAB PO SCH (08:46)
[2023-01-07] MEDS: METOPROLOL TARTRATE 25 MG TAB PO SCH ×2 (08:46→20:19)
[2023-01-07] MEDS: guaiFENesin 600 MG TABLET.ER PO SCH ×2 (08:46→20:18)
[2023-01-07] MEDS: MAGNESIUM OXIDE 400 MG TAB PO SCH ×2 (08:46→20:19)
--- NOTE | 2023-01-07 11:32 | P.PN ---
Subjective Progress Note Date: 01/07/23 This is a 77-year-old male patient with a history of chronic kidney disease, post colectomy secondary to perforation and subsequent colostomy with recent reversal, left lower extremity DVT, factor V laden mutation, tracheobronchial malacia, moderate chronic obstructive pulmonary disease, solitary lung nodule status post radiation, history of frequent MRSA and pseudomonas pneumonias. He was recently admitted for bilateral pneumonia and his sputum culture was positive for pseudomonas aeruginosa. He was discharged home 12/25/2022 on Avelox 5 days. Blood cultures were negative. He presented here again to the emergency room last evening after a 2 to three-day history of increasing shortness of breath, cough and congestion. Chest x-ray shows no consolidation. Small bilateral pleural effusions. White count 8.7. Hemoglobin 9.4. Platelets 304. Sodium 137. Potassium 4.6. Bicarb 27. BUN 46. Creatinine 1.31. Glucose 89. COVID-19 screen negative. Pro-calcitonin 0.36. ProBNP level 4080. Troponin negative 1. He's been initiated on DuoNeb inhalations, Mucinex, Singulair. He is seen today in consultation in the emergency department. He is currently sitting up on a stretcher. Awake and alert in no acute distress. He has a loose nonproductive cough. Maintaining O2 saturations in the 90s on room air. He's afebrile. Hemodynamically stable. The patient is seen today 01/06/2023 in follow-up on the regular medical floor. He is currently sitting up at the bedside. Awake and alert in no acute distress. Maintaining O2 saturations in the 90s on 3 L/m per nasal cannula. He still has a loose nonproductive cough. Still dyspneic with conversation and minimal activity. He is continued on DuoNeb inhalations, Pulmicort and Perforomist inhalations, Mucinex, IV steroids and Singulair. Antibiotics in the form of Zosyn. ID is on the case. We will plan for bronchoscopy with BAL tomorrow to help clear his secretions. The patient is seen today 01/07/2023 in follow-up on the regular medical floor. He is awake and alert in no acute distress. Sitting up at the bedside. Carmen clementsining O2 saturations in the mid 90s on 2 L/m per nasal cannula. He's been afebrile. Hemodynamically stable. He is nothing by mouth for bronchoscopy and BAL today. He is feeling a bit better. Less cough and congestion. Sputum culture pending. He remains on DuoNeb inhalations, Pulmicort and Perforomist inhalations, Solu-Medrol. Lovenox for DVT prophylaxis. Sputum culture pending. Remains on antibiotics in the form of Zosyn. He was seen by wound care center for nonhealing ulceration with fatty layer exposure from his recent abdominal surgery. Wound care recommendations received. Objective - Vital Signs Vital signs: Vital Signs Temp 97.7 F 01/07/23 07:00 Pulse 86 01/07/23 08:53 Resp 18 01/07/23 07:00 BP 114/67 01/07/23 07:00 Pulse Ox 97 01/07/23 07:00 FiO2 Intake & Output 01/06/23 01/07/23 01/07/23 18:59 06:59 18:59 Intake Total 720 Output Total 550 Balance 720 -550 Intake: Oral 720 Output: Urine 550 Other: Voiding Method Toilet Toilet Toilet # Voids 1 1 - Exam GENERAL EXAM: Alert, oriented pleasant 77-year-old male, on 2 L nasal cannula, in no apparent distress. HEAD: Normocephalic. EYES: Normal reaction of pupils, equal size. NOSE: Clear with pink turbinates. THROAT: No erythema or exudates. NECK: No masses, no JVD. CHEST: No chest wall deformity. LUNGS: Equal air entry with faint crackles in the bilateral bases, few scattered rhonchi. Diminished. CVS: S1 and S2 normal with no audible murmur, regular rhythm. ABDOMEN: Dressing in place over abdominal wound ulceration. No hep atosplenomegaly, normal bowel sounds, no guarding or rigidity. SPINE: No scoliosis or deformity SKIN: No rashes CENTRAL NERVOUS SYSTEM: No focal deficits, tone is normal in all 4 extremities. EXTREMITIES: There is no peripheral edema. No clubbing, no cyanosis. Peripheral pulses are intact. - Labs CBC & Chem 7: 01/04/23 23:31 01/04/23 23:31 Labs: Microbiology - Last 24 Hours (Table) 01/06/23 14:12 Gram Stain - Preliminary Sputum Assessment and Plan Assessment: Dyspnea secondary to acute exacerbation of chronic obstructive pulmonary disease with small bibasilar pleural effusion. Plan is for bronchoscopy with BAL today 01/07/2023 Recent discharge 12/25/2022 for an acute pseudomonas aeruginosa pneumonia. Was on Avelox in the outpatient setting Previous history of multiple pneumonias from multiple bacteria including pseudomonas, MRSA, E. coli History of right upper lobe pulmonary nodule with previous radiation, being monitored in the outpatient setting Chronic obstructive pulmonary disease on Trelegy and DuoNeb's in the outpatient setting History of perforated colon requiring colectomy and colostomy and subsequent recent reversal. There remains a nonhealing ulceration with fatty layer exposure. Chronic kidney disease Tracheobronchomalacia Factor V Leiden mutation Hypertension History of anxiety History of dysphagia Plan: The patient was seen and evaluated Medications reviewed Continue Zosyn, bronchodilators, steroids We'll plan for bronchoscopy with BAL today Titrate the FiO2 as tolerated Increase his activity as tolerated Wound Center treating abdominal ulceration We will continue to follow I have personally seen and examined the patient, performed the documentation and the assessment and plan as written. Number of minutes spent on the visit: 10.
[2023-01-07] MEDS ORDERED: PROPOFOL 10 MG/ML 20 ML VIAL IV ONE (12:41)
[2023-01-07] MEDS ORDERED: LIDOCAINE 1% INJ 10MG/ML (20 ML MDV) ONE (12:41)
[2023-01-07] MEDS ORDERED: MIDAZOLAM 2 MG/2 ML VIAL ONE (12:41)
[2023-01-07] MEDS ORDERED: KETAMINE HCL IN 0.9 % NACL 50 MG/5 ML SYRINGE ONE (12:41)
[2023-01-07] MEDS ORDERED: LACTATED RINGERS 1,000 ML IV ONE (12:42)
[2023-01-07] MEDS ORDERED: LIDOCAINE 2% INJ 20 MG/ML INTRATRACH ONE (12:58)
[2023-01-07] MEDS: LORATADINE 10 MG TAB PO SCH (14:38)
[2023-01-07] MEDS: polyethylene glycoL 3350 17 GM POWD.PACK PO SCH (14:38)
[2023-01-07] MEDS: CYANOCOBALAMIN 500 MCG TAB PO SCH (14:38)
[2023-01-07] MEDS: FOLIC ACID 1 MG TAB PO SCH (14:38)
[2023-01-07] MEDS: CHOLECALCIFEROL 25 MCG (1000 IU) TABLET PO SCH (14:38)
[2023-01-07] MEDS: SODIUM ZIRCONIUM CYCLOSILICATE 10 GM PACKET PO SCH (14:38)
--- NOTE | 2023-01-07 18:03 | P.PN ---
Progress Note - Text Progress Note Date: 01/07/23 Chief Complaint: Short of breath Patient is a 77-year-old male with a past medical history of COPD on home oxygen 2 L as needed, history of Pseudomonas pneumonia, history of bronchial stent placement/removal, CKD stage III, history of lung cancer, history of DVT, hypert ension anxiety and prior history of smoking presents underwent extensive lysis of adhesions, small bowel resection and repair of incisional hernia on 02/09/2022.reversal of ostomy and repair of incisional hernia done on November 14, 2022.-This is the wound care center for abdominal wound care. Recently in the hospital from December 20 through December 25. Admitted with pneumonia. Was discharged on Avelox. Sputum culture from December 24 was positive for Pseudomonas aeruginosa. Patient now presents to ER with increasing shortness of breath. Decreased pulse ox at home. Does use home oxygen 2 L. Dry cough. No fever no chills. Appetite is maintained. Tired. January 06: Bringing up some frothy sputum. Plan for bronchoscopy with lavage tomorrow. Oral intake good. Sitting at edge of the bed. January 07. Patient seen by me this morning. Pending bronchoscopy. Congested chest. Underwent bronchoscopy with lavage this afternoon per Dr. Howard. Formal operative note pending. Active Medications Albuterol/Ipratropium (Ipratropium-Albuterol 3 Ml Neb) 3 ml INHALATION RT-QID [facility] Last Admin: 01/07/23 15:59 Dose: 3 ml Albuterol/Ipratropium (Ipratropium-Albuterol 3 Ml Neb) 3 ml INHALATION RT-Q2H PRN PRN Reason: Shortness Of Breath Or Wheezing Allopurinol (Allopurinol 100 Mg Tab) 100 mg PO [facility] Last Admin: 01/06/23 20:22 Dose: 100 mg Alprazolam (Alprazolam 0.5 Mg Tab) 0.5 mg PO [facility] Last Admin: 01/06/23 20:22 Dose: 0.5 mg Aspirin (Aspirin 81 Mg) 81 mg PO DAILY [facility] Last Admin: 01/07/23 08:45 Dose: Not Given Budesonide (Budesonide 1 Mg/2 Ml Nebu) 1 mg INHALATION RT-BID [facility] Last Admin: 01/07/23 08:23 Dose: 1 mg Cholecalciferol (Cholecalciferol 25 Mcg (1000 Iu) Tablet) 50 mcg PO DAILY [facility] Last Admin: 01/07/23 14:38 Dose: 50 mcg Cyanocobalamin (Cyanocobalamin 500 Mcg Tab) 1,000 mcg PO DAILY [facility] Last Admin: 01/07/23 14:38 Dose: 1,000 mcg Doxazosin Mesylate (Doxazosin 4 Mg Tab) 4 mg PO HS [facility] Last Admin: 01/06/23 20:22 Dose: 4 mg Enoxaparin Sodium (Enoxaparin 40 Mg/0.4 Ml Syringe) 40 mg SQ DAILY [facility] Last Admin: 01/07/23 08:45 Dose: Not Given Famotidine (Famotidine 20 Mg Tab) 20 mg PO DAILY [facility] Last Admin: 01/07/23 08:46 Dose: 20 mg Folic Acid (Folic Acid 1 Mg Tab) 1 mg PO DAILY [facility] Last Admin: 01/07/23 14:38 Dose: 1 mg Formoterol Fumarate (Formoterol Fumarate 20 Mcg/2 Ml Nebu) 20 mcg INHALATION RT-BID [facility] Last Admin: 01/07/23 08:44 Dose: 20 mcg Guaifenesin (Guaifenesin 600 Mg Tablet.Er) 600 mg PO BID [facility] Last Admin: 01/07/23 08:46 Dose: 600 mg Piperacillin Sod/Tazobactam (Sod 3.375 gm/ Sodium Chloride) 100 mls @ 25 mls/hr IVPB Q8H [facility]; Protocol Last Admin: 01/07/23 13:32 Dose: 25 mls/hr Lactobacillus Acidophilus (Lactobacillus Acidophilus/Pect 1 Each Capsule) 1 e ach PO DAILY [facility] Last Admin: 01/07/23 08:45 Dose: 1 each Loratadine (Loratadine 10 Mg Tab) 10 mg PO DAILY [facility] Last Admin: 01/07/23 14:38 Dose: 10 mg Magnesium Oxide (Magnesium Oxide 400 Mg Tab) 400 mg PO BID [facility] Last Admin: 01/07/23 08:46 Dose: 400 mg Methylprednisolone Sodium Succinate (Methylprednisolone Sod Succi 40 Mg/Ml 1 Ml Vial) 40 mg IV Q8HR [facility] Last Admin: 01/07/23 16:34 Dose: 40 mg Metoprolol Tartrate (Metoprolol Tartrate 25 Mg Tab) 25 mg PO BID [facility] Last Admin: 01/07/23 08:46 Dose: 25 mg Montelukast Sodium (Montelukast 10 Mg Tab) 10 mg PO HS [facility] Last Admin: 01/06/23 20:22 Dose: 10 mg Naloxone HCl (Naloxone 0.4 Mg/Ml 1 Ml Vial) 0.2 mg IVP Q2M PRN PRN Reason: Opioid Reversal Polyethylene Glycol (Polyethylene Glycol 3350 17 Gm Powd.Pack) 17 gm PO DAILY [facility] Last Admin: 01/07/23 14:38 Dose: 17 gm Sodium Bicarbonate (Sodium Bicarbonate Tab 650 Mg Tab) 650 mg PO BID [facility] Last Admin: 01/07/23 08:46 Dose: 650 mg Sodium Zirconium Cyclosilicate (Sodium Zirconium Cyclosilicate 10 Gm Packet) 10 gm PO DAILY@1400 [facility] Last Admin: 01/07/23 14:38 Dose: 10 gm Physical examination: VITAL SIGNS: 97.3, 78, 16, 131/67, 96% on 2 L GENERAL: Sitting of the patient's bed. Some coughing. EYES: Pupils equal. Conjunctiva normal. HEENT: External appearance of nose and ears normal, oral cavity grossly normal. NECK: JVD not raised; masses not palpable. HEART: First and second heart sounds are normal; some edema. LUNGS: Respiratory rate increased; diminished breath sounds. ABDOMEN: Soft, nontender, liver spleen not palpable, no masses palpable. PSYCH: Alert and oriented x3; mood and affect tiredl. MUSCULOSKELETAL:No Clubbing/cyanosis;muscles-grossly intact. OA NEUROLOGICAL: Cranial nerves grossly intact; no facial asymmetry, power and sensation grossly intact. LYMPHATICS: No lymph nodes palpable in the axilla and neck INVESTIGATIONS, reviewed in the clinical context: January 04: White count 8.7 hemoglobin 9.4 platelets 304 sodium 137 potassium 4.6 BUN 46 creatinine 1.31 Procalcitonin 0.36 proBNP 4080 COVID-19 PCR: Not detected EKG tracing personally reviewed by me-normal sinus rhythm. Right bundle-branch block. Chest x-ray film personally reviewed by me-possible bilateral small pleural effusion. Cannot rule out infiltrate. Previous labs: Creatinine 1.4--12/20/2022 Assessment and plan: -Acute COPD exacerbation in an ex-smoker: Slow to respond Pulmicort nebulizer twice a day, Perforomist twice a day, IV Solu-Medrol 40 mg every 8 Pneumonia suspect gram-negative organism. Patient was recently discharged on Avelox. Recent sputum culture positive for Pseudomonas aeruginosa: Slow to respond -IV Zosyn bronchoscopy with lavage tomorrow done today. Acute on chronic hypoxic respiratory failure -On oxygen Chronic kidney disease stage III baseline creatinine level -Creatinine 1.4 Suspect anemia of chronic kidney disease. Iron deficiency anemia. , Recently given IV Ferrlecit -Chronic hyperkalemia from underlying COPD Chronically on Lokelma Recent history of reversal of colostomy and umbilical hernia repair on 11/14/2022. Wound care to continue Right upper lobe pulmonary nodule. Patient had PET scan and was treated with SBRT Abdominal wall wound from incision. History of colonic perforation requiring colectomy and colostomy -Wound care-local wound care Obstructive sleep apnea not on CPAP Chronic hypoxic respiratory failure, from underlying COPD -on home oxygen 2 L -Chronic dysphagia On nectar thick liquids History of DVT Essential Hypertension -Lopressor 25 mg twice a day Bronchoscopy with lavage done today. Await culture results. Sputum culture results pending. Follow with pulmonary.
--- NOTE | 2023-01-07 20:17 | OP ---
OPERATIVE REPORT DATE OF SERVICE : PROCEDURES PERFORMED: Bronchoscopy and bronchoalveolar lavage of right lower lobe, left lower lobe, right middle lobe, lingula, left upper lobe, and right upper lobe as well as right middle lobe. PREOPERATIVE DIAGNOSIS: Recurrent pneumonia secondary to polymicrobial infections, last 1 was pseudomonal infection. PREOPERATIVE DIAGNOSES: Recurrent pneumonia, tracheobronchomalacia, multiple broncholith noted in the airways especially on the left side, and collapsible membranous trachea. ANESTHESIA USED: IV conscious sedation. DESCRIPTION OF PROCEDURE: The patient was prepared according to the bronchoscopy protocol. The patient was placed in the supine position, O2 was applied via Ventimask. We were monitoring his O2 saturation continuously, blood pressure was intermittently monitored, cardiac rhythm was continuously monitored. After adequate IV conscious sedation, the right naris was anesthetized with lidocaine applied locally, instilled into the right naris, then the bronchoscope was advanced through the right naris down to the area of the vocal cords. Purulent secretions noted over the vocal cords, and the secretions were suctioned. Vocal cords were noted to be patent. Lidocaine was applied over the vocal cords, and the bronchoscope was advanced further down to the trachea. Examination of the trachea, poncho, right upper lobe, right middle lobe, right lower lobe, left upper lobe, lingula, and left lower lobe was done. There was clearly evidence of significant thick purulent yellow secretions noted throughout the airways including the trachea in the right upper lobe, right middle lobe, right lower lobe, left upper lobe, lingula, and left lower lobe. Random bronchoalveolar lavage was done of all these lobes until the secretions were cleared. There was clearly evidence of abnormal trachea, there was evidence of tracheal bronchomalacia, significant irregularities noted in the mucosa of the trachea, and there was clearly dynamic collapse of the trachea easily with taking a deep breath or even with exhalation. Further examination done on the left side showed multiple areas of what looked like broncholith in the lingula and in the left lower lobe areas. These were not bleeding, and seemed to be unremarkable otherwise. Again, the procedure was tolerated, the BAL from different lobes was sent for different diagnostic studies, and no evidence of any immediate complications. MMODL / IJN: [id number] /
[2023-01-07] MEDS: MONTELUKAST 10 MG TAB PO SCH (20:18)
[2023-01-07] MEDS: allopurinoL 100 MG TAB PO SCH (20:18)
[2023-01-07] MEDS: DOXAZOSIN 4 MG TAB PO SCH (20:19)
[2023-01-07] MEDS: ALPRAZolam 0.5 MG TAB PO SCH (20:30)
[2023-01-08] MEDS: PIPERACILLIN-TAZOBACTAM 3.375 GM in SODIUM CHLORIDE 0.9% 100 ML IVPB SCH ×3 (05:22→20:59)
[2023-01-08 06:08] LABS: Appearance,BF Turbid (Clear); RBC, Body Fluid 12625 /UL (0-2000)
[2023-01-08] MEDS: FORMOTEROL FUMARATE 20 MCG/2 ML NEBU INHALATION SCH ×2 (07:23→20:14)
[2023-01-08] MEDS: BUDESONIDE 1 MG/2 ML NEBU INHALATION SCH ×2 (07:23→20:15)
[2023-01-08] MEDS: IPRATROPIUM-ALBUTEROL 3 ML NEB INHALATION SCH ×4 (07:23→20:14)
[2023-01-08] MEDS: METOPROLOL TARTRATE 25 MG TAB PO SCH ×2 (09:38→21:03)
[2023-01-08] MEDS: CYANOCOBALAMIN 500 MCG TAB PO SCH (09:38)
[2023-01-08] MEDS: ASPIRIN 81 MG PO SCH (09:38)
[2023-01-08] MEDS: SODIUM BICARBONATE TAB 650 MG TAB PO SCH ×2 (09:38→21:03)
[2023-01-08] MEDS: FOLIC ACID 1 MG TAB PO SCH (09:38)
[2023-01-08] MEDS: LACTOBACILLUS ACIDOPHILUS/PECT 1 EACH CAPSULE PO SCH (09:38)
[2023-01-08] MEDS: MAGNESIUM OXIDE 400 MG TAB PO SCH ×2 (09:38→21:03)
[2023-01-08] MEDS: polyethylene glycoL 3350 17 GM POWD.PACK PO SCH (09:39)
[2023-01-08] MEDS: CHOLECALCIFEROL 25 MCG (1000 IU) TABLET PO SCH (09:39)
[2023-01-08] MEDS: LORATADINE 10 MG TAB PO SCH (09:39)
[2023-01-08] MEDS: FAMOTIDINE 20 MG TAB PO SCH (09:39)
[2023-01-08] MEDS: ENOXAPARIN 40 MG/0.4 ML SYRINGE SQ SCH (09:39)
[2023-01-08] MEDS: methylPREDNISolone SOD SUCCI 40 MG/ML 1 ML VIAL IV SCH ×2 (09:39→17:01)
[2023-01-08] MEDS: guaiFENesin 600 MG TABLET.ER PO SCH ×2 (09:39→21:03)
[2023-01-08 10:04] LABS: Nucleated Cells, Body Fluid 645 /UL
[2023-01-08] MEDS ORDERED: DARBEPOETIN ALFA 60 MCG/0.3 ML SYRINGE SQ SCH (12:00)
--- NOTE | 2023-01-08 12:38 | P.PN ---
Subjective Progress Note Date: 01/08/23 This is a 77-year-old male patient with a history of chronic kidney disease, post colectomy secondary to perforation and subsequent colostomy with recent reversal, left lower extremity DVT, factor V laden mutation, tracheobronchial malacia, moderate chronic obstructive pulmonary disease, solitary lung nodule status post radiation, history of frequent MRSA and pseudomonas pneumonias. He was recently admitted for bilateral pneumonia and his sputum culture was positive for pseudomonas aeruginosa. He was discharged home 12/25/2022 on Avelox 5 days. Blood cultures were negative. He presented here again to the emergency room last evening after a 2 to three-day history of increasing shortness of breath, cough and congestion. Chest x-ray shows no consolidation. Small bilateral pleural effusions. White count 8.7. Hemoglobin 9.4. Platelets 304. Sodium 137. Potassium 4.6. Bicarb 27. BUN 46. Creatinine 1.31. Glucose 89. COVID-19 screen negative. Pro-calcitonin 0.36. ProBNP level 4080. Troponin negative 1. He's been initiated on DuoNeb inhalations, Mucinex, Singulair. He is seen today in consultation in the emergency department. He is currently sitting up on a stretcher. Awake and alert in no acute distress. He has a loose nonproductive cough. Maintaining O2 saturations in the 90s on room air. He's afebrile. Hemodynamically stable. The patient is seen today 01/06/2023 in follow-up on the regular medical floor. He is currently sitting up at the bedside. Awake and alert in no acute distress. Maintaining O2 saturations in the 90s on 3 L/m per nasal cannula. He still has a loose nonproductive cough. Still dyspneic with conversation and minimal activity. He is continued on DuoNeb inhalations, Pulmicort and Perforomist inhalations, Mucinex, IV steroids and Singulair. Antibiotics in the form of Zosyn. ID is on the case. We will plan for bronchoscopy with BAL tomorrow to help clear his secretions. The patient is seen today 01/07/2023 in follow-up on the regular medical floor. He is awake and alert in no acute distress. Sitting up at the bedside. Carmen clementsining O2 saturations in the mid 90s on 2 L/m per nasal cannula. He's been afebrile. Hemodynamically stable. He is nothing by mouth for bronchoscopy and BAL today. He is feeling a bit better. Less cough and congestion. Sputum culture pending. He remains on DuoNeb inhalations, Pulmicort and Perforomist inhalations, Solu-Medrol. Lovenox for DVT prophylaxis. Sputum culture pending. Remains on antibiotics in the form of Zosyn. He was seen by wound care center for nonhealing ulceration with fatty layer exposure from his recent abdominal surgery. Wound care recommendations received. The patient is seen today 01/08/2023 in follow-up on the regular medical floor. Sitting up at the bedside. Having breakfast. Denies any worsening shortness of breath, cough or congestion. Sputum culture reveals Jaimie albicans. Feeling quite a bit better following his bronchoscopy. He did have a significant amount of thick tenacious sputum, cultures pending. He is continued on Zosyn. Remains on bronchodilators and steroids. Lovenox for DVT prophylaxis. Objective - Vital Signs Vital signs: Vital Signs Temp 97.6 F 01/08/23 08:00 Pulse 84 01/08/23 11:03 Resp 12 01/08/23 08:00 BP 113/77 01/08/23 08:00 Pulse Ox 94 L 01/08/23 08:00 FiO2 Intake & Output 01/07/23 01/08/23 01/08/23 18:59 06:59 18:59 Intake Total 572 118 Output Total 750 Balance -178 118 Intake: IV 100 Oral 472 118 Output: Urine 750 Other: Voiding Method Toilet # Voids 2 - Exam GENERAL EXAM: Alert, pleasant 77-year-old male, improving, on 2 L nasal cannula, in no apparent distress. HEAD: Normocephalic. EYES: Normal reaction of pupils, equal size. NOSE: Clear with pink turbinates. THROAT: No erythema or exudates. NECK: No masses, no JVD. CHEST: No chest wall deformity. LUNGS: Equal air entry with faint crackles in the bilateral bases, few scattered rhonchi. Diminished. CVS: S1 and S2 normal with no audible murmur, regular rhythm. ABDOMEN: Dressing in place over abdominal wound ulceration. No hepatosplenomegaly, normal bowel sounds, no guarding or rigidity. SPINE: No scoliosis or deformity SKIN: No rashes CENTRAL NERVOUS SYSTEM: No focal deficits, tone is normal in all 4 extremities. EXTREMITIES: There is no peripheral edema. No clubbing, no cyanosis. Peripheral pulses are intact. - Labs CBC & Chem 7: 01/04/23 23:31 01/04/23 23:31 Labs: Abnormal Lab Results - Last 24 Hours (Table) 01/07/23 Range/Units 12:57 Fluid Appearance Turbid A (Clear) Fluid RBC 63087 H (0-2000) /uL Microbiology - Last 24 Hours (Table) 01/06/23 14:12 Gram Stain - Final Sputum Sputum Culture - Final Jaimie albicans Assessment and Plan Assessment: Dyspnea secondary to acute exacerbation of chronic obstructive pulmonary disease with small bibasilar pleural effusion. Bronchoscopy with BAL on 01/07/2023, cultures pending Recent discharge 12/25/2022 for an acute pseudomonas aeruginosa pneumonia. Was on Avelox in the outpatient setting area currently on Zosyn Previous history of multiple pneumonias from multiple bacteria including pseudomonas, MRSA, E. coli History of right upper lobe pulmonary nodule with previous radiation, being monitored in the outpatient setting Chronic obstructive pulmonary disease on Trelegy and DuoNeb's in the outpatient setting History of perforated colon requiring colectomy and colostomy and subsequent recent reversal. There remains a nonhealing ulceration with fatty layer exposure. Chronic kidney disease Tracheobronchomalacia Factor V Leiden mutation Hypertension History of anxiety History of dysphagia Plan: The patient was seen and evaluated Medications reviewed Improved today post bronchoscopy Cultures pending Continue Zosyn, bronchodilators, steroids Titrate the FiO2 as tolerated Increase his activity as tolerated We will continue to follow I have personally seen and examined the patient, performed the documentation and the assessment and plan as written. Number of minutes spent on the visit: 10.
--- NOTE | 2023-01-08 15:09 | P.PN ---
Subjective Progress Note Date: 01/07/23 Principal diagnosis: Tracheobronchitis question of pneumonia Patient is a 77-year-old male with a past medical history significant for hypertension COPD history of recurrent pseudomonal pneumonia did have diverticulitis requiring laparotomy diverticulosis subsequently reversal patient presenting to the hospital concerning for increasing shortness of breath and cough , patient been diagnosed with possible COPD exacerbation and possible fluid overload. On today's evaluation that is 01/07/2023, the patient continues to be afebrile , the patient is breathing comfortably on 2 L nasal cannula oxygen and denies any worsening shortness of breath, the patient denies any chest pain and denies any worsening cough or sputum production, patient denies abdominal pain and no nausea/vomiting or diarrhea , feeling better no new symptoms Patient did have a white count of 8.7 on admission no lab draw today Objective - Vital Signs Vital signs: Vital Signs Temp 97.7 F 01/07/23 07:00 Pulse 86 01/07/23 08:53 Resp 18 01/07/23 07:00 BP 114/67 01/07/23 07:00 Pulse Ox 97 01/07/23 07:00 FiO2 Intake & Output 01/06/23 01/07/23 01/07/23 18:59 06:59 18:59 Intake Total 720 Output Total 550 Balance 720 -550 Intake: Oral 720 Output: Urine 550 Other: Voiding Method Toilet Toilet Toilet # Voids 1 1 - Exam GENERAL DESCRIPTION: An elderly male up in bed in no distress RESPIRATORY SYSTEM: Unlabored breathing , coarse breath sounds bilaterally HEART: S1 S2 regular rate and rhythm , ABDOMEN: Soft , no tenderness EXTREMITIES: No edema feet - Labs CBC & Chem 7: 01/04/23 23:31 01/04/23 23:31 Labs: Microbiology - Last 24 Hours (Table) 01/06/23 14:12 Gram Stain - Preliminary Sputum Assessment and Plan (1) Tracheobronchitis Current Visit: Yes Status: Acute Code(s): J40 - BRONCHITIS, NOT SPECIFIED ACUTE OR CHRONIC SNOMED Code(s): 27707906 Plan: 1patient present to hospital with increasing shortness of breath and cough which is likely multifactorial with possible COPD exacerbation with tracheobronchitis clinically not behaving as pneumonia however did have elevated procalcitonin that is mildly concerning 2-patient with a history of recurrent Pseudomonas pneumonia in the last sputum culture Pseudomonas was resistant to all antibiotics 3-patient is scheduled for bronchoscopy and Lavage this afternoon results will be followed 4Patient has shown some clinical improvement and will continue with empiric Zosyn along with the bronchodilators and steroids and diuretics Dictation was produced using [employer] dictation software. please excuse any grammatical, word or spelling errors. Time with Patient: Less than 30
--- NOTE | 2023-01-08 15:11 | P.PN ---
Subjective Progress Note Date: 01/08/23 Principal diagnosis: Tracheobronchitis question of pneumonia Patient is a 77-year-old male with a past medical history significant for hypertension COPD history of recurrent pseudomonal pneumonia did have diverticulitis requiring laparotomy diverticulosis subsequently reversal patient presenting to the hospital concerning for increasing shortness of breath and cough , patient been diagnosed with possible COPD exacerbation and possible fluid overload. Patient is status post bronchoscopy and lavage on 01/07/2023 On today's evaluation that is 01/08/2023, the patient denies any fever or any chills , the patient is breathing comfortably on room air and no need for s upplemental oxygen, the patient denies any chest pain or worsening cough and no sputum production, patient denies abdominal pain and no nausea/vomiting or diarrhea , feeling better Patient did have a white count of 8.7 on admission no lab draw today, BAL cultures pending sputum with jaimie Objective - Vital Signs Vital signs: Vital Signs Temp 97.7 F 01/08/23 14:00 Pulse 76 01/08/23 15:06 Resp 16 01/08/23 14:00 BP 135/68 01/08/23 14:00 Pulse Ox 95 01/08/23 14:00 FiO2 Intake & Output 01/07/23 01/08/23 01/08/23 18:59 06:59 18:59 Intake Total 572 118 Output Total 750 Balance -178 118 Intake: IV 100 Oral 472 118 Output: Urine 750 Other: Voiding Method Toilet # Voids 2 - Exam GENERAL DESCRIPTION: An elderly male up in bed in no distress RESPIRATORY SYSTEM: Unlabored breathing , coarse breath sounds bilaterally, occasional wheeze HEART: S1 S2 regular rate and rhythm , ABDOMEN: Soft , no tenderness EXTREMITIES: No edema feet - Labs CBC & Chem 7: 01/04/23 23:31 01/04/23 23:31 Labs: Abnormal Lab Results - Last 24 Hours (Table) 01/07/23 Range/Units 12:57 Fluid Appearance Turbid A (Clear) Fluid RBC 65782 H (0-2000) /uL Microbiology - Last 24 Hours (Table) 01/06/23 14:12 Gram Stain - Final Sputum Sputum Culture - Final Jaimie albicans Assessment and Plan (1) Tracheobronchitis Current Visit: Yes Status: Acute Code(s): J40 - BRONCHITIS, NOT SPECIFIED ACUTE OR CHRONIC SNOMED Code(s): 37029934 Plan: 1patient present to hospital with increasing shortness of breath and cough which is likely multifactorial with possible COPD exacerbation with tracheobronchitis clinically not behaving as pneumonia however did have elevated procalcitonin that is mildly concerning 2-patient with a history of recurrent Pseudomonas pneumonia in the last sputum culture Pseudomonas was resistant to all antibiotics 3-patient is status post bronchoscopy and Lavage and results will be followed, initial sputum with a Jaimie likely colonized 4Patient continued to show clinical improvement and will continue with empiric Zosyn while waiting for BAL cultures to finalize Dictation was produced using [employer] software. please excuse any grammatical, word or spelling errors.
[2023-01-08] MEDS: SODIUM ZIRCONIUM CYCLOSILICATE 10 GM PACKET PO SCH (15:33)
[2023-01-08] MEDS: MONTELUKAST 10 MG TAB PO SCH (21:03)
[2023-01-08] MEDS: ALPRAZolam 0.5 MG TAB PO SCH (21:03)
[2023-01-08] MEDS: allopurinoL 100 MG TAB PO SCH (21:03)
[2023-01-08] MEDS: DOXAZOSIN 4 MG TAB PO SCH (21:03)
[2023-01-08] MEDS ORDERED: FLUCONAZOLE 100 MG TAB PO ONE (22:55)
--- NOTE | 2023-01-08 22:56 | P.PN ---
Progress Note - Text Progress Note Date: 01/08/23 Chief Complaint: Short of breath Patient is a 77-year-old male with a past medical history of COPD on home oxygen 2 L as needed, history of Pseudomonas pneumonia, history of bronchial stent placement/removal, CKD stage III, history of lung cancer, history of DVT, hypert ension anxiety and prior history of smoking presents underwent extensive lysis of adhesions, small bowel resection and repair of incisional hernia on 02/09/2022.reversal of ostomy and repair of incisional hernia done on November 14, 2022.-This is the wound care center for abdominal wound care. Recently in the hospital from December 20 through December 25. Admitted with pneumonia. Was discharged on Avelox. Sputum culture from December 24 was positive for Pseudomonas aeruginosa. Patient now presents to ER with increasing shortness of breath. Decreased pulse ox at home. Does use home oxygen 2 L. Dry cough. No fever no chills. Appetite is maintained. Tired. January 06: Bringing up some frothy sputum. Plan for bronchoscopy with lavage tomorrow. Oral intake good. Sitting at edge of the bed. January 07. Patient seen by me this morning. Pending bronchoscopy. Congested chest. Underwent bronchoscopy with lavage this afternoon per Dr. Howard. Formal operative note pending. January 08: Underwent bronchoscopy with lavage yesterday. A lot of puslike secretions removed. Feeling much better today. Sitting at the edge of the bed. Eating fair. On IV Zosyn. Cutback Solu-Medrol. Active Medications Albuterol/Ipratropium (Ipratropium-Albuterol 3 Ml Neb) 3 ml INHALATION RT-QID [facility] Last Admin: 01/08/23 20:14 Dose: 3 ml Albuterol/Ipratropium (Ipratropium-Albuterol 3 Ml Neb) 3 ml INHALATION RT-Q2H PRN PRN Reason: Shortness Of Breath Or Wheezing Allopurinol (Allopurinol 100 Mg Tab) 100 mg PO [facility] Last Admin: 01/08/23 21:03 Dose: 100 mg Alprazolam (Alprazolam 0.5 Mg Tab) 0.5 mg PO [facility] Last Admin: 01/08/23 21:03 Dose: 0.5 mg Aspirin (Aspirin 81 Mg) 81 mg PO DAILY [facility] Last Admin: 01/08/23 09:38 Dose: 81 mg Budesonide (Budesonide 1 Mg/2 Ml Nebu) 1 mg INHALATION RT-BID [facility] Last Admin: 01/08/23 20:15 Dose: 1 mg Cholecalciferol (Cholecalciferol 25 Mcg (1000 Iu) Tablet) 50 mcg PO DAILY [facility] Last Admin: 01/08/23 09:39 Dose: 50 mcg Cyanocobalamin (Cyanocobalamin 500 Mcg Tab) 1,000 mcg PO DAILY [facility] Last Admin: 01/08/23 09:38 Dose: 1,000 mcg Darbepoetin Bobby (Darbepoetin Bobby 60 Mcg/0.3 Ml Syringe) 60 mcg SQ Q7D [facility] Last Admin: 01/08/23 13:11 Dose: 60 mcg Doxazosin Mesylate (Doxazosin 4 Mg Tab) 4 mg PO HS [facility] Last Admin: 01/08/23 21:03 Dose: 4 mg Enoxaparin Sodium (Enoxaparin 40 Mg/0.4 Ml Syringe) 40 mg SQ DAILY [facility] Last Admin: 01/08/23 09:39 Dose: 40 mg Famotidine (Famotidine 20 Mg Tab) 20 mg PO DAILY [facility] Last Admin: 01/08/23 09:39 Dose: 20 mg Folic Acid (Folic Acid 1 Mg Tab) 1 mg PO DAILY [facility] Last Admin: 01/08/23 09:38 Dose: 1 mg Formoterol Fumarate (Formoterol Fumarate 20 Mcg/2 Ml Nebu) 20 mcg INHALATION RT-BID [facility] Last Admin: 01/08/23 20:14 Dose: 20 mcg Guaifenesin (Guaifenesin 600 Mg Tablet.Er) 600 mg PO BID [facility] Last Admin: 01/08/23 21:03 Dose: 600 mg Piperacillin Sod/Tazobactam (Sod 3.375 gm/ Sodium Chloride) 100 mls @ 25 mls/hr IVPB Q8H [facility]; Protocol Last Admin: 01/08/23 20:59 Dose: 25 mls/hr Lactobacillus Acidophilus (Lactobacillus Acidophilus/Pect 1 Each Capsule) 1 each PO DAILY [facility] Last Admin: 01/08/23 09:38 Dose: 1 each Loratadine (Loratadine 10 Mg Tab) 10 mg PO DAILY [facility] Last Admin: 01/08/23 09:39 Dose: 10 mg Magnesium Oxide (Magnesium Oxide 400 Mg Tab) 400 mg PO BID [facility] Last Admin: 01/08/23 21:03 Dose: 400 mg Metoprolol Tartrate (Metoprolol Tartrate 25 Mg Tab) 25 mg PO BID [facility] Last Admin: 01/08/23 21:03 Dose: 25 mg Montelukast Sodium (Montelukast 10 Mg Tab) 10 mg PO HS [facility] Last Admin: 01/08/23 21:03 Dose: 10 mg Naloxone HCl (Naloxone 0.4 Mg/Ml 1 Ml Vial) 0.2 mg IVP Q2M PRN PRN Reason: Opioid Reversal Polyethylene Glycol (Polyethylene Glycol 3350 17 Gm Powd.Pack) 17 gm PO DAILY [facility] Last Admin: 01/08/23 09:39 Dose: 17 gm Sodium Bicarbonate (Sodium Bicarbonate Tab 650 Mg Tab) 650 mg PO BID [facility] Last Admin: 01/08/23 21:03 Dose: 650 mg Sodium Zirconium Cyclosilicate (Sodium Zirconium Cyclosilicate 10 Gm Packet) 10 gm PO DAILY@1400 [facility] Last Admin: 01/08/23 15:33 Dose: 10 gm Physical examination: VITAL SIGNS: 98.1, 87, 15, 131/88, 98% on 2 L GENERAL: Sitting of the patient's bed. Breathing better EYES: Pupils equal. Conjunctiva normal. HEENT: External appearance of nose and ears normal, oral cavity grossly normal. NECK: JVD not raised; masses not palpable. HEART: First and second heart sounds are normal; some edema. LUNGS: Respiratory rate increased; diminished breath sounds. ABDOMEN: Soft, nontender, liver spleen not palpable, no masses palpable. PSYCH: Alert and oriented x3; mood and affect tiredl. MUSCULOSKELETAL:No Clubbing/cyanosis;muscles-grossly intact. OA INVESTIGATIONS, reviewed in the clinical context: Sputum: Jaimie albicans January 04: White count 8.7 hemoglobin 9.4 platelets 304 sodium 137 potassium 4.6 BUN 46 creatinine 1.31 Procalcitonin 0.36 proBNP 4080 COVID-19 PCR: Not detected EKG tracing personally reviewed by me-normal sinus rhythm. Right bundle-branch block. Chest x-ray film personally reviewed by me-possible bilateral small pleural effusion. Cannot rule out infiltrate. Previous labs: Creatinine 1.4--12/20/2022 Assessment and plan: -Acute COPD exacerbation in an ex-smoker: Better Pulmicort nebulizer twice a day, Perforomist twice a day, cut back IV Solu- Medrol 40 mg to 12 Pneumonia suspect gram-negative organism. Patient was recently discharged on Avelox. Recent sputum culture positive for Pseudomonas aeruginosa: Slow to respond -IV Zosyn bronchoscopy with lavage -January 07 Gram stain cultures pending Acute on chronic hypoxic respiratory failure -On oxygen Chronic kidney disease stage III baseline creatinine level -Creatinine 1.4 Suspect anemia of chronic kidney disease. Iron deficiency anemia. , Recently given IV Ferrlecit -Chronic hyperkalemia from underlying COPD Chronically on Lokelma Recent history of reversal of colostomy and umbilical hernia repair on 11/14/2022. Wound care to continue Right upper lobe pulmonary nodule. Patient had PET scan and was treated with SBRT Abdominal wall wound from incision. History of colonic perforation requiring colectomy and colostomy -Wound care-local wound care Obstructive sleep apnea not on CPAP Chronic hypoxic respiratory failure, from underlying COPD -on home oxygen 2 L -Chronic dysphagia On nectar thick liquids History of DVT Essential Hypertension -Lopressor 25 mg twice a day Better. Cutback Solu-Medrol. Await cultures. Increase activity. Add Diflucan.
[2023-01-09] MEDS: PIPERACILLIN-TAZOBACTAM 3.375 GM in SODIUM CHLORIDE 0.9% 100 ML IVPB SCH ×3 (05:12→20:33)
[2023-01-09] MEDS: FORMOTEROL FUMARATE 20 MCG/2 ML NEBU INHALATION SCH ×2 (07:44→19:26)
[2023-01-09] MEDS: IPRATROPIUM-ALBUTEROL 3 ML NEB INHALATION SCH ×4 (07:44→19:26)
[2023-01-09] MEDS: BUDESONIDE 1 MG/2 ML NEBU INHALATION SCH ×2 (07:44→19:26)
[2023-01-09] MEDS: ASPIRIN 81 MG PO SCH (10:17)
[2023-01-09] MEDS: methylPREDNISolone SOD SUCCI 40 MG/ML 1 ML VIAL IV SCH ×2 (10:17→20:34)
[2023-01-09] MEDS: CYANOCOBALAMIN 500 MCG TAB PO SCH (10:18)
[2023-01-09] MEDS: CHOLECALCIFEROL 25 MCG (1000 IU) TABLET PO SCH (10:18)
[2023-01-09] MEDS: FLUCONAZOLE 100 MG TAB PO SCH (10:18)
[2023-01-09] MEDS: METOPROLOL TARTRATE 25 MG TAB PO SCH ×2 (10:18→20:33)
[2023-01-09] MEDS: guaiFENesin 600 MG TABLET.ER PO SCH ×2 (10:19→20:33)
[2023-01-09] MEDS: FOLIC ACID 1 MG TAB PO SCH (10:19)
[2023-01-09] MEDS: LACTOBACILLUS ACIDOPHILUS/PECT 1 EACH CAPSULE PO SCH (10:19)
[2023-01-09] MEDS: LORATADINE 10 MG TAB PO SCH (10:19)
[2023-01-09] MEDS: FAMOTIDINE 20 MG TAB PO SCH (10:19)
[2023-01-09] MEDS: MAGNESIUM OXIDE 400 MG TAB PO SCH ×2 (10:20→20:33)
[2023-01-09] MEDS: SODIUM BICARBONATE TAB 650 MG TAB PO SCH ×2 (10:20→20:33)
[2023-01-09] MEDS: ENOXAPARIN 40 MG/0.4 ML SYRINGE SQ SCH (10:30)
[2023-01-09] MEDS: polyethylene glycoL 3350 17 GM POWD.PACK PO SCH (10:31)
--- NOTE | 2023-01-09 10:59 | P.PN ---
Subjective Progress Note Date: 01/09/23 This is a 77-year-old male patient with a history of chronic kidney disease, post colectomy secondary to perforation and subsequent colostomy with recent reversal, left lower extremity DVT, factor V laden mutation, tracheobronchial malacia, moderate chronic obstructive pulmonary disease, solitary lung nodule status post radiation, history of frequent MRSA and pseudomonas pneumonias. He was recently admitted for bilateral pneumonia and his sputum culture was positive for pseudomonas aeruginosa. He was discharged home 12/25/2022 on Avelox 5 days. Blood cultures were negative. He presented here again to the emergency room last evening after a 2 to three-day history of increasing shortness of breath, cough and congestion. Chest x-ray shows no consolidation. Small bilateral pleural effusions. White count 8.7. Hemoglobin 9.4. Platelets 304. Sodium 137. Potassium 4.6. Bicarb 27. BUN 46. Creatinine 1.31. Glucose 89. COVID-19 screen negative. Pro-calcitonin 0.36. ProBNP level 4080. Troponin negative 1. He's been initiated on DuoNeb inhalations, Mucinex, Singulair. He is seen today in consultation in the emergency department. He is currently sitting up on a stretcher. Awake and alert in no acute distress. He has a loose nonproductive cough. Maintaining O2 saturations in the 90s on room air. He's afebrile. Hemodynamically stable. The patient is seen today 01/06/2023 in follow-up on the regular medical floor. He is currently sitting up at the bedside. Awake and alert in no acute distress. Maintaining O2 saturations in the 90s on 3 L/m per nasal cannula. He still has a loose nonproductive cough. Still dyspneic with conversation and minimal activity. He is continued on DuoNeb inhalations, Pulmicort and Perforomist inhalations, Mucinex, IV steroids and Singulair. Antibiotics in the form of Zosyn. ID is on the case. We will plan for bronchoscopy with BAL tomorrow to help clear his secretions. The patient is seen today 01/07/2023 in follow-up on the regular medical floor. He is awake and alert in no acute distress. Sitting up at the bedside. Carmen clementsining O2 saturations in the mid 90s on 2 L/m per nasal cannula. He's been afebrile. Hemodynamically stable. He is nothing by mouth for bronchoscopy and BAL today. He is feeling a bit better. Less cough and congestion. Sputum culture pending. He remains on DuoNeb inhalations, Pulmicort and Perforomist inhalations, Solu-Medrol. Lovenox for DVT prophylaxis. Sputum culture pending. Remains on antibiotics in the form of Zosyn. He was seen by wound care center for nonhealing ulceration with fatty layer exposure from his recent abdominal surgery. Wound care recommendations received. The patient is seen today 01/08/2023 in follow-up on the regular medical floor. Sitting up at the bedside. Having breakfast. Denies any worsening shortness of breath, cough or congestion. Sputum culture reveals Jaimie albicans. Feeling quite a bit better following his bronchoscopy. He did have a significant amount of thick tenacious sputum, cultures pending. He is continued on Zosyn. Remains on bronchodilators and steroids. Lovenox for DVT prophylaxis. The patient is seen today 01/09/2023 in follow-up on the regular medical floor. He is resting comfortably in bed. Awake and alert in no acute distress. Still with some cough and congestion but much improved. 18 in good O2 saturations in the mid 90s on 2 L/m per nasal cannula. He's been afebrile. Hemodynamically stable. Skin culture positive for Jaimie only. Bronchoscopy wash cultures pending. Remains on Zosyn. Continued on DuoNeb inhalations, Pulmicort and Perforomist inhalations, Solu-Medrol and Singulair. Treated with Diflucan. Infectious disease remains on the case. Objective - Vital Signs Vital signs: Vital Signs Temp 97.4 F L 01/09/23 07:05 Pulse 84 01/09/23 08:14 Resp 16 01/09/23 07:05 BP 158/66 01/09/23 07:05 Pulse Ox 95 01/09/23 07:47 FiO2 Intake & Output 01/08/23 01/09/23 01/09/23 18:59 06:59 18:59 Intake Total 118 Output Total 600 Balance 118 -600 Intake: Oral 118 Output: Urine 600 Other: # Voids 1 - Exam GENERAL EXAM: Alert, pleasant 77-year-old male, in no apparent distress. On 2 L nasal cannula. HEAD: Normocephalic. EYES: Normal reaction of pupils, equal size. NOSE: Clear with pink turbinates. THROAT: No erythema or exudates. NECK: No masses, no JVD. CHEST: No chest wall deformity. LUNGS: Equal air entry with faint crackles in the bilateral bases, few scattered rhonchi. Diminished. CVS: S1 and S2 normal with no audible murmur, regular rhythm. ABDOMEN: Dressing in place over abdominal wound ulceration. No hepatosplenomegaly, normal bowel sounds, no guarding or rigidity. SPINE: No scoliosis or deformity SKIN: No rashes CENTRAL NERVOUS SYSTEM: No focal deficits, tone is normal in all 4 extremities. EXTREMITIES: There is no peripheral edema. No clubbing, no cyanosis. Peripheral pulses are intact. - Labs CBC & Chem 7: 01/04/23 23:31 01/04/23 23:31 Labs: Microbiology - Last 24 Hours (Table) 01/07/23 12:57 Acid Fast Bacilli Smear - Preliminary Bronchial Washings - Random 01/06/23 14:12 Gram Stain - Final Sputum Sputum Culture - Final Jaimie albicans Assessment and Plan Assessment: Dyspnea secondary to acute exacerbation of chronic obstructive pulmonary disease with small bibasilar pleural effusion. Bronchoscopy with BAL on 01/07/2023, cultures pending. Remains on Zosyn Recent discharge 12/25/2022 for an acute pseudomonas aeruginosa pneumonia. Was on Avelox in the outpatient setting area currently on Zosyn Previous history of multiple pneumonias from multiple bacteria including pseudomonas, MRSA, E. coli History of right upper lobe pulmonary nodule with previous radiation, being monitored in the outpatient setting Chronic obstructive pulmonary disease on Trelegy and DuoNeb's in the outpatient setting History of perforated colon requiring colectomy and colostomy and subsequent recent reversal. There remains a nonhealing ulceration with fatty layer exposure. Chronic kidney disease Tracheobronchomalacia Factor V Leiden mutation Hypertension History of anxiety History of dysphagia Plan: The patient was seen and evaluated Medications reviewed Bronchoscopy cultures pending Continue Zosyn, bronchodilators, steroids Remains on Diflucan for Jaimie in the sputum We will continue to follow I have personally seen and examined the patient, performed the documentation and the assessment and plan as written. Number of minutes spent on the visit: 10.
[2023-01-09 11:32] LABS: ALT 25 U/L (4-49); AST 30 U/L (17-59); African American GFR (CKD) 40 (>60 ml/min/1.73 sqM); Albumin 3.9 g/dL (3.5-5.0); Albumin/Globulin Ratio 1.4; Alkaline Phosphatase 51 U/L (38-126); Anion Gap 13 mmol/L; Blood Urea Nitrogen 80 mg/dL (9-20); Calcium 9.5 mg/dL (8.4-10.2); Carbon Dioxide 26 mmol/L (22-30); Chloride 100 mmol/L (98-107); Globulin 2.8 g/dL; Glucose 144 mg/dL (74-99); Non-African American GFR(CKD) 35 (>60 ml/min/1.73 sqM); Potassium 4.4 mmol/L (3.5-5.1); Sodium 139 mmol/L (137-145); Total Bilirubin 0.6 mg/dL (0.2-1.3); Total Protein 6.7 g/dL (6.3-8.2)
[2023-01-09 11:48] LABS: Anisocytosis Slight; Basophils % (A) 0 %; Eosinophils % (A) 0 %; HGB 10.7 gm/dL (13.0-17.5); Hypochromasia Marked; Lymphocytes # (A) 0.5 k/uL (1.0-4.8); Lymphocytes % (A) 7 %; MCHC 30.6 g/dL (31.0-37.0); MCV 101.3 fL (80.0-100.0); Macrocytosis Moderate; Mean Platelet Volume 9.7; Monocytes # (A) 0.3 k/uL (0-1.0); Monocytes % (A) 4 %; Neutrophils # (A) 5.9 k/uL (1.3-7.7); Neutrophils % (A) 88 %; Platelet Count 192 k/uL (150-450); RBC 3.45 m/uL (4.30-5.90); RDW 18.3 % (11.5-15.5); WBC 6.7 k/uL (3.8-10.6)
[2023-01-09] MEDS: SODIUM ZIRCONIUM CYCLOSILICATE 10 GM PACKET PO SCH (13:43)
--- NOTE | 2023-01-09 14:33 | P.PN ---
Subjective Progress Note Date: 01/09/23 Patient is a 77-year-old male with a past medical history of COPD on home oxygen 2 L as needed, history of Pseudomonas pneumonia, history of bronchial stent placement/removal, CKD stage III, history of lung cancer, history of DVT, hypertension anxiety and prior history of smoking presents underwent extensive lysis of adhesions, small bowel resection and repair of incisional hernia on 02/09/2022.reversal of ostomy and repair of incisional hernia done on November 14, 2022.-This is the wound care center for abdominal wound care. Recently in the hospital from December 20 through December 25. Admitted with pneumonia. Was discharged on Avelox. Sputum culture from December 24 was positive for Pseudomonas aeruginosa. Patient now presents to ER with increasing shortness of breath. Decreased pulse ox at home. Does use home oxygen 2 L. Dry cough. No fever no chills. Appetite is maintained. Tired. January 06: Bringing up some frothy sputum. Plan for bronchoscopy with lavage tomorrow. Oral intake good. Sitting at edge of the bed. January 07. Patient seen by me this morning. Pending bronchoscopy. Congested chest. Underwent bronchoscopy with lavage this afternoon per Dr. Howard. Formal operative note pending. January 08: Underwent bronchoscopy with lavage yesterday. A lot of puslike s ecretions removed. Feeling much better today. Sitting at the edge of the bed. Eating fair. On IV Zosyn. Cutback Solu-Medrol. 01/09. Patient seen and examined. Currently on 2 L of oxygen. Pulmonology and ID following .still gets short of breath on exertion REVIEW OF SYSTEMS: CONSTITUTIONAL: No fever, no malaise,. CARDIOVASCULAR: No chest pain, no palpitations, no syncope. PULMONARY: No shortness of breath, no cough, GASTROINTESTINAL: No diarrhea, no nausea, no vomiting, no abdominal pain. NEUROLOGICAL: No headaches, no weakness, PHYSICAL EXAMINATION: GENERAL: The patient is alert and oriented x3, not in any acute distress. Well developed, well nourished. HEENT: Pupils are round and equally reacting to light. EOMI. No scleral icterus. No conjunctival pallor. Normocephalic, atraumatic. No pharyngeal erythema. No thyromegaly. CARDIOVASCULAR: S1 and S2 present. No murmurs, rubs, or gallops. PULMONARY: Chest is clear to auscultation, no wheezing or crackles. ABDOMEN: Soft, nontender, nondistended, normoactive bowel sounds. No palpable organomegaly. MUSCULOSKELETAL: No joint swelling or deformity. EXTREMITIES: No cyanosis, clubbing, or pedal edema. NEUROLOGICAL: Gross neurological examination did not reveal any focal deficits. SKIN: No rashes. Assessment and plan Acute COPD exacerbation in an ex-smoker Pneumonia suspect gram-negative organism. Patient was recently discharged on Avelox. Recent sputum culture positive for Pseudomonas aeruginosa: Slow to respond Acute on chronic hypoxic respiratory failure Chronic kidney disease stage III baseline creatinine level Suspect anemia of chronic kidney disease. Iron deficiency anemia. -Chronic hyperkalemia from underlying COPD Recent history of reversal of colostomy and umbilical hernia repair on 11/14/2022. Right upper lobe pulmonary nodule. Abdominal wall wound from incision. History of colonic perforation requiring colectomy and colostomy Obstructive sleep apnea not on CPAP Chronic hypoxic respiratory failure, from underlying COPD -Chronic dysphagia History of DVT Essential Hypertension Monitor vital signs Monitor CBC Monitor CMP Continue telemetry monitoring Encourage use of incentive spirometer Follow-up on cultures Continue IV Zosyn Status post bronchoscopy with lavage -January 07 In regards to hypertension continue Lopressor Pulmonology following ID following Labs and medication were reviewed.. Continue same treatment. Continue with symptomatic treatment. Resume home medication. Monitor labs and vitals. DVT and GI prophylaxis. Further recommendations as per clinical course of the patient Dictation was produced using [employer] dictation software. please excuse any grammatical, word or spelling errors. Objective - Vital Signs Vital signs: Vital Signs Temp 97.4 F L 01/09/23 07:05 Pulse 84 01/09/23 08:14 Resp 16 01/09/23 07:05 BP 158/66 01/09/23 07:05 Pulse Ox 95 01/09/23 07:47 FiO2 Intake & Output 01/08/23 01/09/23 01/09/23 18:59 06:59 18:59 Intake Total 118 Output Total 600 Balance 118 -600 Intake: Oral 118 Output: Urine 600 Other: # Voids 1 - Labs CBC & Chem 7: 01/09/23 10:34 01/09/23 10:34 Labs: Abnormal Lab Results - Last 24 Hours (Table) 01/07/23 Range/Units 12:57 Fluid RBC 76113 H (0-2000) /uL Microbiology - Last 24 Hours (Table) 01/07/23 12:57 Acid Fast Bacilli Smear - Preliminary Bronchial Washings - Random 01/06/23 14:12 Gram Stain - Final Sputum Sputum Culture - Final Jaimie albicans
[2023-01-09] MEDS: ALPRAZolam 0.5 MG TAB PO SCH (20:33)
[2023-01-09] MEDS: DOXAZOSIN 4 MG TAB PO SCH (20:33)
[2023-01-09] MEDS: MONTELUKAST 10 MG TAB PO SCH (20:33)
[2023-01-09] MEDS: allopurinoL 100 MG TAB PO SCH (20:33)
[2023-01-10] MEDS: PIPERACILLIN-TAZOBACTAM 3.375 GM in SODIUM CHLORIDE 0.9% 100 ML IVPB SCH (05:00)
[2023-01-10 05:32] LABS: Anisocytosis Slight; Basophils % (A) 0 %; Eosinophils % (A) 0 %; HCT 32.3 % (39.0-53.0); HGB 9.7 gm/dL (13.0-17.5); Hypochromasia Marked; Lymphocytes # (A) 0.3 k/uL (1.0-4.8); Lymphocytes % (A) 6 %; MCH 30.2 pg (25.0-35.0); MCHC 30.2 g/dL (31.0-37.0); Macrocytosis Moderate; Mean Platelet Volume 9.1; Monocytes # (A) 0.1 k/uL (0-1.0); Monocytes % (A) 3 %; Neutrophils # (A) 3.9 k/uL (1.3-7.7); Neutrophils % (A) 90 %; Platelet Count 265 k/uL (150-450); RBC 3.23 m/uL (4.30-5.90); RDW 18.2 % (11.5-15.5); WBC 4.3 k/uL (3.8-10.6)
[2023-01-10 05:48] LABS: ALT 22 U/L (4-49); AST 20 U/L (17-59); African American GFR (CKD) 41 (>60 ml/min/1.73 sqM); Albumin 3.3 g/dL (3.5-5.0); Albumin/Globulin Ratio 1.4; Alkaline Phosphatase 50 U/L (38-126); Anion Gap 9 mmol/L; Blood Urea Nitrogen 72 mg/dL (9-20); Carbon Dioxide 29 mmol/L (22-30); Chloride 100 mmol/L (98-107); Globulin 2.3 g/dL; Glucose 166 mg/dL (74-99); Non-African American GFR(CKD) 35 (>60 ml/min/1.73 sqM); Potassium 4.6 mmol/L (3.5-5.1); Sodium 138 mmol/L (137-145); Total Bilirubin 0.4 mg/dL (0.2-1.3); Total Protein 5.6 g/dL (6.3-8.2)
[2023-01-10] MEDS: IPRATROPIUM-ALBUTEROL 3 ML NEB INHALATION SCH ×2 (07:38→11:19)
[2023-01-10] MEDS: FORMOTEROL FUMARATE 20 MCG/2 ML NEBU INHALATION SCH (07:39)
[2023-01-10] MEDS: BUDESONIDE 1 MG/2 ML NEBU INHALATION SCH (07:39)
[2023-01-10 08:19] VITALS: BP 151/68; RESP 18; TEMP 97.7
[2023-01-10] MEDS ORDERED: ENOXAPARIN 30 MG/0.3 ML SYRINGE SQ SCH (09:00)
[2023-01-10] MEDS: FAMOTIDINE 20 MG TAB PO SCH (09:16)
[2023-01-10] MEDS: FOLIC ACID 1 MG TAB PO SCH (09:17)
[2023-01-10] MEDS: LORATADINE 10 MG TAB PO SCH (09:17)
[2023-01-10] MEDS: CYANOCOBALAMIN 500 MCG TAB PO SCH (09:17)
[2023-01-10] MEDS: guaiFENesin 600 MG TABLET.ER PO SCH (09:17)
[2023-01-10] MEDS: MAGNESIUM OXIDE 400 MG TAB PO SCH (09:17)
[2023-01-10] MEDS: CHOLECALCIFEROL 25 MCG (1000 IU) TABLET PO SCH (09:17)
[2023-01-10] MEDS: polyethylene glycoL 3350 17 GM POWD.PACK PO SCH (09:17)
[2023-01-10] MEDS: LACTOBACILLUS ACIDOPHILUS/PECT 1 EACH CAPSULE PO SCH (09:17)
[2023-01-10] MEDS: METOPROLOL TARTRATE 25 MG TAB PO SCH (09:17)
[2023-01-10] MEDS: ASPIRIN 81 MG PO SCH (09:17)
[2023-01-10] MEDS: methylPREDNISolone SOD SUCCI 40 MG/ML 1 ML VIAL IV SCH (09:18)
[2023-01-10] MEDS: SODIUM BICARBONATE TAB 650 MG TAB PO SCH (09:18)
[2023-01-10] MEDS: FLUCONAZOLE 100 MG TAB PO SCH (09:45)
--- NOTE | 2023-01-10 11:24 | P.PN ---
Subjective Progress Note Date: 01/10/23 This is a 77-year-old male patient with a history of chronic kidney disease, post colectomy secondary to perforation and subsequent colostomy with recent reversal, left lower extremity DVT, factor V laden mutation, tracheobronchial malacia, moderate chronic obstructive pulmonary disease, solitary lung nodule status post radiation, history of frequent MRSA and pseudomonas pneumonias. He was recently admitted for bilateral pneumonia and his sputum culture was positive for pseudomonas aeruginosa. He was discharged home 12/25/2022 on Avelox 5 days. Blood cultures were negative. He presented here again to the emergency room last evening after a 2 to three-day history of increasing shortness of breath, cough and congestion. Chest x-ray shows no consolidation. Small bilateral pleural effusions. White count 8.7. Hemoglobin 9.4. Platelets 304. Sodium 137. Potassium 4.6. Bicarb 27. BUN 46. Creatinine 1.31. Glucose 89. COVID-19 screen negative. Pro-calcitonin 0.36. ProBNP level 4080. Troponin negative 1. He's been initiated on DuoNeb inhalations, Mucinex, Singulair. He is seen today in consultation in the emergency department. He is currently sitting up on a stretcher. Awake and alert in no acute distress. He has a loose nonproductive cough. Maintaining O2 saturations in the 90s on room air. He's afebrile. Hemodynamically stable. The patient is seen today 01/06/2023 in follow-up on the regular medical floor. He is currently sitting up at the bedside. Awake and alert in no acute distress. Maintaining O2 saturations in the 90s on 3 L/m per nasal cannula. He still has a loose nonproductive cough. Still dyspneic with conversation and minimal activity. He is continued on DuoNeb inhalations, Pulmicort and Perforomist inhalations, Mucinex, IV steroids and Singulair. Antibiotics in the form of Zosyn. ID is on the case. We will plan for bronchoscopy with BAL tomorrow to help clear his secretions. The patient is seen today 01/07/2023 in follow-up on the regular medical floor. He is awake and alert in no acute distress. Sitting up at the bedside. Carmen clementsining O2 saturations in the mid 90s on 2 L/m per nasal cannula. He's been afebrile. Hemodynamically stable. He is nothing by mouth for bronchoscopy and BAL today. He is feeling a bit better. Less cough and congestion. Sputum culture pending. He remains on DuoNeb inhalations, Pulmicort and Perforomist inhalations, Solu-Medrol. Lovenox for DVT prophylaxis. Sputum culture pending. Remains on antibiotics in the form of Zosyn. He was seen by wound care center for nonhealing ulceration with fatty layer exposure from his recent abdominal surgery. Wound care recommendations received. The patient is seen today 01/08/2023 in follow-up on the regular medical floor. Sitting up at the bedside. Having breakfast. Denies any worsening shortness of breath, cough or congestion. Sputum culture reveals Jaimie albicans. Feeling quite a bit better following his bronchoscopy. He did have a significant amount of thick tenacious sputum, cultures pending. He is continued on Zosyn. Remains on bronchodilators and steroids. Lovenox for DVT prophylaxis. The patient is seen today 01/09/2023 in follow-up on the regular medical floor. He is resting comfortably in bed. Awake and alert in no acute distress. Still with some cough and congestion but much improved. 18 in good O2 saturations in the mid 90s on 2 L/m per nasal cannula. He's been afebrile. Hemodynamically stable. Skin culture positive for Jaimie only. Bronchoscopy wash cultures pending. Remains on Zosyn. Continued on DuoNeb inhalations, Pulmicort and Perforomist inhalations, Solu-Medrol and Singulair. Treated with Diflucan. Infectious disease remains on the case. The patient is seen today 01/10/2023 in follow-up on the regular medical floor. He is awake and alert in no acute distress. Maintaining good O2 saturations in the 90s on 2 L/m per nasal cannula. No worsening shortness of breath, cough or congestion. He is continued on DuoNeb inhalations, Pulmicort and Perforomist inhalations, solu Medrol, Singulair. Diflucan for candidiasis. Jaimie albicans found of both sputum and bronchial wash. White count 4.3. Hemoglobin 9.7. White blood to 65. Sodium 138. Potassium 4.6. Bicarb 29. BUN 72. Creatinine 1.79. Glucose 166. Objective - Vital Signs Vital signs: Vital Signs Temp 97.7 F 01/10/23 07:00 Pulse 80 01/10/23 08:03 Resp 18 01/10/23 07:00 BP 151/68 01/10/23 07:00 Pulse Ox 100 01/10/23 07:00 FiO2 Intake & Output 01/09/23 01/10/23 01/10/23 18:59 06:59 18:59 Intake Total 118 118 Output Total 300 Balance 118 -300 118 Intake: Oral 118 118 Output: Urine 300 Other: Voiding Method Toilet - Exam GENERAL EXAM: Alert, pleasant 77-year-old male, sitting up in bed, having breakfast, in no apparent distress. On 2 L nasal cannula. HEAD: Normocephalic. EYES: Normal reaction of pupils, equal size. NOSE: Clear with pink turbinates. THROAT: No erythema or exudates. NECK: No masses, no JVD. CHEST: No chest wall deformity. LUNGS: Equal air entry with faint crackles in the bilateral bases, few scattered rhonchi. Diminished. CVS: S1 and S2 normal with no audible murmur, regular rhythm. ABDOMEN: Dressing in place over abdominal wound ulceration. No hepatosplenomegaly, normal bowel sounds, no guarding or rigidity. SPINE: No scoliosis or deformity SKIN: No rashes CENTRAL NERVOUS SYSTEM: No focal deficits, tone is normal in all 4 extremities. EXTREMITIES: There is no peripheral edema. No clubbing, no cyanosis. Peripheral pulses are intact. - Labs CBC & Chem 7: 01/10/23 04:46 01/10/23 04:46 Labs: Abnormal Lab Results - Last 24 Hours (Table) 01/09/23 01/09/23 01/10/23 Range/Units 10:34 10:34 04:46 RBC 3.45 L 3.23 L (4.30-5.90) m/uL Hgb 10.7 L 9.7 L (13.0-17.5) gm/dL Hct 35.0 L 32.3 L (39.0-53.0) % MCV 101.3 H (80.0-100.0) fL MCHC 30.6 L 30.2 L (31.0-37.0) g/dL RDW 18.3 H 18.2 H (11.5-15.5) % Lymphocytes # 0.5 L 0.3 L (1.0-4.8) k/uL BUN 80 H (9-20) mg/dL Creatinine 1.81 H (0.66-1.25) mg/dL Glucose 144 H (74-99) mg/dL Total Protein (6.3-8.2) g/dL Albumin (3.5-5.0) g/dL 01/10/23 Range/Units 04:46 RBC (4.30-5.90) m/uL Hgb (13.0-17.5) gm/dL Hct (39.0-53.0) % MCV (80.0-100.0) fL MCHC (31.0-37.0) g/dL RDW (11.5-15.5) % Lymphocytes # (1.0-4.8) k/uL BUN 72 H (9-20) mg/dL Creatinine 1.79 H (0.66-1.25) mg/dL Glucose 166 H (74-99) mg/dL Total Protein 5.6 L (6.3-8.2) g/dL Albumin 3.3 L (3.5-5.0) g/dL Microbiology - Last 24 Hours (Table) 01/07/23 12:57 Gram Stain - Preliminary Bronchial Washings - Random Bronchial Washings Culture - Preliminary Jaimie albicans Assessment and Plan Assessment: Dyspnea secondary to acute exacerbation of chronic obstructive pulmonary disease with small bibasilar pleural effusion. Bronchoscopy with BAL on 01/07/2023, cultures done Jaimie thus far. On Diflucan. Completed Zosyn Recent discharge 12/25/2022 for an acute pseudomonas aeruginosa pneumonia. Was on Avelox in the outpatient setting Previous history of multiple pneumonias from multiple bacteria including pseudomonas, MRSA, E. coli History of right upper lobe pulmonary nodule with previous radiation, being monitored in the outpatient setting Chronic obstructive pulmonary disease on Trelegy and DuoNeb's in the outpatient setting History of perforated colon requiring colectomy and colostomy and subsequent recent reversal. There remains a nonhealing ulceration with fatty layer exposure. Chronic kidney disease Tracheobronchomalacia Factor V Leiden mutation Hypertension History of anxiety History of dysphagia Plan: The patient was seen and evaluated Medications and labs reviewed Bronchoscopy cultures with Jaimie only thus far Sputum culture with Jaimie Remains on Diflucan Transition Solu-Medrol to prednisone taper Continue his home pulmonary medications, oxygen post discharge This patient was seen independently by the nurse practitioner I have personally seen and examined the patient, performed the documentation and the assessment and plan as written. Number of minutes spent on the visit: 22.
[2023-01-10 11:37] VITALS: PULSE 76
--- NOTE | 2023-01-10 12:17 | P.DS ---
Providers Date of admission: 01/05/23 18:41 Expected date of discharge: 01/10/23 Attending physician: Brodie Cervantes Consults: 01/05/23 10:21 Consult Physician Routine Consulting Provider: Ramona Cortez Consult Reason/Comments: SOB Do you want consulting provider notified?: Yes Consult Physician Routine Consulting Provider: Leandro Castillo Consult Reason/Comments: resp infecion Do you want consulting provider notified?: Yes Primary care physician: Madi Munguia Hospital Course: Discharge diagnoses; Acute COPD exacerbation in an ex-smoker Pneumonia suspect gram-negative organism. Patient was recently discharged on Avelox. Recent sputum culture positive for Pseudomonas aeruginosa: Slow to respond Acute on chronic hypoxic respiratory failure Chronic kidney disease stage III baseline creatinine level Suspect anemia of chronic kidney disease. Iron deficiency anemia. -Chronic hyperkalemia from underlying COPD Recent history of reversal of colostomy and umbilical hernia repair on 11/14/2022. Right upper lobe pulmonary nodule. Abdominal wall wound from incision. History of colonic perforation requiring colectomy and colostomy Obstructive sleep apnea not on CPAP Chronic hypoxic respiratory failure, from underlying COPD -Chronic dysphagia History of DVT Essential Hypertension Hospital course; Patient is a 77-year-old male with a past medical history of COPD on home oxygen 2 L as needed, history of Pseudomonas pneumonia, history of bronchial stent placement/removal, CKD stage III, history of lung cancer, history of DVT, hypertension anxiety and prior history of smoking presents underwent extensive lysis of adhesions, small bowel resection and repair of incisional hernia on 02/09/2022.reversal of ostomy and repair of incisional hernia done on November 14, 2022.-This is the wound care center for abdominal wound care. Recently in the hospital from December 20 through December 25. Admitted with pneumonia. Was discharged on Avelox. Sputum culture from December 24 was positive for Pseudomonas aeruginosa. Patient now presents to ER with increasing shortness of breath. Decreased pulse ox at home. Does use home oxygen 2 L. Dry cough. No fever no chills. Appetite is maintained. Tired. January 06: Bringing up some frothy sputum. Plan for bronchoscopy with lavage tomorrow. Oral intake good. Sitting at edge of the bed. January 07. Patient seen by me this morning. Pending bronchoscopy. Congested chest. Underwent bronchoscopy with lavage this afternoon per Dr. Howard. Form al operative note pending. January 08: Underwent bronchoscopy with lavage yesterday. A lot of puslike secretions removed. Feeling much better today. Sitting at the edge of the bed. Eating fair. On IV Zosyn. Cutback Solu-Medrol. 01/09. Patient seen and examined. Currently on 2 L of oxygen. Pulmonology and ID following .still gets short of breath on exertion 01/10. Patient seen and examined. States he feels much better. ID recommended discharging patient on Diflucan for 1 week. Pulmonology cleared the patient for discharge as well. PHYSICAL EXAMINATION: GENERAL: The patient is alert and oriented x3, not in any acute distress. Well developed, well nourished. HEENT: Pupils are round and equally reacting to light. EOMI. No scleral icterus. No conjunctival pallor. Normocephalic, atraumatic. No pharyngeal erythema. No thyromegaly. CARDIOVASCULAR: S1 and S2 present. No murmurs, rubs, or gallops. PULMONARY: Chest is clear to auscultation, no wheezing or crackles. ABDOMEN: Soft, nontender, nondistended, normoactive bowel sounds. No palpable organomegaly. MUSCULOSKELETAL: No joint swelling or deformity. EXTREMITIES: No cyanosis, clubbing, or pedal edema. NEUROLOGICAL: Gross neurological examination did not reveal any focal deficits. SKIN: No rashes. Dictation was produced using [employer] dictation software. please excuse any grammatical, word or spelling errors. Patient Condition at Discharge: Fair Plan - Discharge Summary New Discharge Prescriptions: New Fluconazole [Diflucan] 100 mg PO DAILY 7 Days #7 tab predniSONE 10 mg PO DAILY 8 Days #20 tab Continue Montelukast Sodium [Singulair] 10 mg PO HS Metoprolol Tartrate [Lopressor] 25 mg PO BID L.acidoph,Paracasei, B.lactis [Probiotic] 1 cap PO DAILY allopurinoL [Zyloprim] 100 mg PO HS Albuterol Sulfate [Ventolin HFA] 2 puff INHALATION RT-QID PRN PRN Reason: Shortness Of Breath Cyanocobalamin (Vitamin B-12) [Vitamin B-12] 1,000 mcg PO DAILY Sodium Bicarbonate Tab 650 mg PO BID #60 tab Famotidine [Pepcid] 20 mg PO DAILY Folic Acid 1 mg PO DAILY Sodium Zirconium Cyclosilicate [Lokelma] 10 gm PO DAILY@1400 Magnesium Oxide [Mag-Ox] 400 mg PO BID 30 Days #60 tab polyethylene glycoL 3350 [Miralax] 17 gm PO DAILY Doxazosin [Cardura] 4 mg PO HS Ipratropium-Albuterol Nebulize [Duoneb 0.5 mg-3 mg/3 ml Soln] 3 ml INHALATION RT-QID #120 each Furosemide [Lasix] 20 mg PO Q2D Fluticasone/Umeclidin/Vilanter [Trelegy Ellipta 100-62.5-25] 1 puff INHALATION RT-DAILY ALPRAZolam [Xanax] 0.5 mg PO HS Budesonide 0.5 mg INHALATION RT-BID Cetirizine HCl [Zyrtec] 10 mg PO DAILY guaiFENesin [guaiFENesin ER] 600 mg PO BID Cholecalciferol [Vitamin D3 (25 Mcg = 1000 Iu)] 50 mcg PO DAILY Aspirin EC [Ecotrin Low Dose] 81 mg PO DAILY Tobramycin [Tobramycin Nebules] 300 mg IH Q48H #15 each Discharge Medication List Montelukast Sodium [Singulair] 10 mg PO HS 01/24/14 [History] Metoprolol Tartrate [Lopressor] 25 mg PO BID 07/25/16 [History] L.acidoph,Paracasei, B.lactis [Probiotic] 1 cap PO DAILY 09/01/18 [History] allopurinoL [Zyloprim] 100 mg PO HS 11/21/19 [History] Albuterol Sulfate [Ventolin HFA] 2 puff INHALATION RT-QID PRN 10/21/21 [History] Fluticasone/Umeclidin/Vilanter [Trelegy Ellipta 100-62.5-25] 1 puff INHALATION RT-DAILY 10/21/21 [History] Cyanocobalamin (Vitamin B-12) [Vitamin B-12] 1,000 mcg PO DAILY 07/02/22 [History] Sodium Bicarbonate Tab 650 mg PO BID #60 tab 07/04/22 [Rx] Famotidine [Pepcid] 20 mg PO DAILY 07/11/22 [History] ALPRAZolam [Xanax] 0.5 mg PO HS 11/06/22 [History] Budesonide 0.5 mg INHALATION RT-BID 11/06/22 [History] Cetirizine HCl [Zyrtec] 10 mg PO DAILY 11/06/22 [History] Folic Acid 1 mg PO DAILY 11/06/22 [History] Sodium Zirconium Cyclosilicate [Lokelma] 10 gm PO DAILY@1400 11/06/22 [History] guaiFENesin [guaiFENesin ER] 600 mg PO BID 11/06/22 [History] Magnesium Oxide [Mag-Ox] 400 mg PO BID 30 Days #60 tab 11/10/22 [Rx] Aspirin EC [Ecotrin Low Dose] 81 mg PO DAILY 12/20/22 [History] Cholecalciferol [Vitamin D3 (25 Mcg = 1000 Iu)] 50 mcg PO DAILY 12/20/22 [History] Doxazosin [Cardura] 4 mg PO HS 12/20/22 [History] polyethylene glycoL 3350 [Miralax] 17 gm PO DAILY 12/20/22 [History] Ipratropium-Albuterol Nebulize [Duoneb 0.5 mg-3 mg/3 ml Soln] 3 ml INHALATION RT-QID #120 each 12/25/22 [Rx] Tobramycin [Tobramycin Nebules] 300 mg IH Q48H #15 each 12/26/22 [Rx] Furosemide [Lasix] 20 mg PO Q2D 01/05/23 [History] Fluconazole [Diflucan] 100 mg PO DAILY 7 Days #7 tab 01/10/23 [Rx] predniSONE 10 mg PO DAILY 8 Days #20 tab 01/10/23 [Rx] Follow up Appointment(s)/Referral(s): Madi Munguia MD [Primary Care Provider] - 1-2 days Leandro Castillo MD [STAFF PHYSICIAN] - 1 Week Mal Howard MD [STAFF PHYSICIAN] - 1 Week Patient Instructions/Handouts: COPD (Chronic Obstructive Pulmonary Disease) (DC ) Discharge Disposition: HOME SELF-CARE
[2023-01-11] MEDS ORDERED: predniSONE 20 MG TAB PO SCH (09:00)
== END 2023-01-10 13:36 | disposition home or self-care (01) | DRG 177 ==
LOC: EC 22:48 → 6NMEDSUR 01-05 02:15 → OBSVTOIN 01-05 18:41
PROVIDERS: ADMIT Hospitalist; ATTEND Hospitalist
PROC: 0B9C8ZX Drainage of Right Upper Lung Lobe, Via Natural or Artificial Opening Endoscopic, Diagnostic (ICD-10-PCS; 2023-01-07)
PROC: 0B9G8ZX Drainage of Left Upper Lung Lobe, Via Natural or Artificial Opening Endoscopic, Diagnostic (ICD-10-PCS; 2023-01-07)
PROC: 0B9D8ZX Drainage of Right Middle Lung Lobe, Via Natural or Artificial Opening Endoscopic, Diagnostic (ICD-10-PCS; 2023-01-07)
PROC: 0B9H8ZX Drainage of Lung Lingula, Via Natural or Artificial Opening Endoscopic, Diagnostic (ICD-10-PCS; 2023-01-07)
PROC: 0B9F8ZX Drainage of Right Lower Lung Lobe, Via Natural or Artificial Opening Endoscopic, Diagnostic (ICD-10-PCS; 2023-01-07)
PROC: 0B9J8ZX Drainage of Left Lower Lung Lobe, Via Natural or Artificial Opening Endoscopic, Diagnostic (ICD-10-PCS; principal; 2023-01-07 12:30)
DX: J15.1 Pneumonia due to Pseudomonas (principal); J96.21 Acute and chronic respiratory failure with hypoxia; J44.0 Chronic obstructive pulmonary disease with (acute) lower respiratory infection; J44.1 Chronic obstructive pulmonary disease with (acute) exacerbation; D68.51 Activated protein C resistance; B37.89 Other sites of candidiasis; N18.30 Chronic kidney disease, stage 3 unspecified; L98.492 Non-pressure chronic ulcer of skin of other sites with fat layer exposed; T81.89XA Other complications of procedures, not elsewhere classified, initial encounter; J98.09 Other diseases of bronchus, not elsewhere classified; R13.19 Other dysphagia; D63.1 Anemia in chronic kidney disease; I12.9 Hypertensive chronic kidney disease with stage 1 through stage 4 chronic kidney disease, or unspecified chronic kidney disease; D50.9 Iron deficiency anemia, unspecified; I45.10 Unspecified right bundle-branch block; R91.1 Solitary pulmonary nodule; F41.9 Anxiety disorder, unspecified; E87.5 Hyperkalemia; G47.33 Obstructive sleep apnea (adult) (pediatric); K21.9 Gastro-esophageal reflux disease without esophagitis; E87.70 Fluid overload, unspecified; Y83.8 Other surgical procedures as the cause of abnormal reaction of the patient, or of later complication, without mention of misadventure at the time of the procedure; Z20.822 Contact with and (suspected) exposure to COVID-19; Z99.81 Dependence on supplemental oxygen; Z85.118 Personal history of other malignant neoplasm of bronchus and lung; Z87.891 Personal history of nicotine dependence; Z79.899 Other long term (current) drug therapy; Z79.82 Long term (current) use of aspirin; Z88.1 Allergy status to other antibiotic agents; Z91.048 Other nonmedicinal substance allergy status; Z91.041 Radiographic dye allergy status; Z91.030 Bee allergy status; Z86.718 Personal history of other venous thrombosis and embolism; Z86.14 Personal history of Methicillin resistant Staphylococcus aureus infection; Z87.01 Personal history of pneumonia (recurrent); Z87.19 Personal history of other diseases of the digestive system; Z92.3 Personal history of irradiation; Z86.19 Personal history of other infectious and parasitic diseases
CPT/HCPCS: 31624; 36415; 71046; 80053; 83605; 83880; 84145; 84484; 85025; 85610; 85730; 87070; 87102; 87116; 87205; 87206; 87635; 89050; 93005; 94640; 94760; 96365; 96366; 96375; 99285

== ENCOUNTER 2023-02-14 09:13 | Inpatient (IN) | payer MEDICARE, BC ==
--- NOTE | 2023-02-14 09:59 | ED ---
General Adult HPI - General Chief complaint: Shortness of Breath Stated complaint: sob,oxygen levels dropping Time Seen by Provider: 02/14/23 09:21 Source: patient, RN notes reviewed, old records reviewed Mode of arrival: ambulatory Limitations: no limitations - History of Present Illness Initial comments: 77 yo pill presenting with increased dyspnea, productive cough. Patient has history of COPD and wears oxygen at night only. He states over the past several days he's had increased oxygen requirements and has been wearing his oxygen throughout the day for hypoxia and increased dyspnea. He reports productive cough of yellow sputum. No fever. No chest pain. No lower extremity pain or swelling. - Related Data Home Medications Medication Instructions Recorded Confirmed Montelukast Sodium [Singulair] 10 mg PO HS 01/24/14 01/05/23 Metoprolol Tartrate [Lopressor] 25 mg PO BID 07/25/16 01/05/23 L.acidoph,Paracasei, B.lactis 1 cap PO DAILY 09/01/18 01/05/23 [Probiotic] allopurinoL [Zyloprim] 100 mg PO HS 11/21/19 01/05/23 Albuterol Sulfate [Ventolin HFA] 2 puff INHALATION RT-QID PRN 10/21/21 01/05/23 Fluticasone/Umeclidin/Vilanter 1 puff INHALATION RT-DAILY 10/21/21 01/05/23 [Trelegy Ellipta 100-62.5-25] Cyanocobalamin (Vitamin B-12) 1,000 mcg PO DAILY 07/02/22 01/05/23 [Vitamin B-12] Famotidine [Pepcid] 20 mg PO DAILY 07/11/22 01/05/23 ALPRAZolam [Xanax] 0.5 mg PO HS 11/06/22 01/05/23 Budesonide 0.5 mg INHALATION RT-BID 11/06/22 01/05/23 Cetirizine HCl [Zyrtec] 10 mg PO DAILY 11/06/22 01/05/23 Folic Acid 1 mg PO DAILY 11/06/22 01/05/23 Sodium Zirconium Cyclosilicate 10 gm PO DAILY@1400 11/06/22 01/05/23 [Lokelma] guaiFENesin [guaiFENesin ER] 600 mg PO BID 11/06/22 01/05/23 Aspirin EC [Ecotrin Low Dose] 81 mg PO DAILY 12/20/22 01/05/23 Cholecalciferol [Vitamin D3 (25 50 mcg PO DAILY 12/20/22 01/05/23 Mcg = 1000 Iu)] Doxazosin [Cardura] 4 mg PO HS 12/20/22 01/05/23 polyethylene glycoL 3350 [Miralax] 17 gm PO DAILY 12/20/22 01/05/23 Furosemide [Lasix] 20 mg PO Q2D 01/05/23 01/05/23 Previous Rx's Medication Instructions Recorded Sodium Bicarbonate Tab 650 mg PO BID #60 tab 07/04/22 Magnesium Oxide [Mag-Ox] 400 mg PO BID 30 Days #60 tab 11/10/22 Ipratropium-Albuterol Nebulize 3 ml INHALATION RT-QID #120 each 12/25/22 [Duoneb 0.5 mg-3 mg/3 ml Soln] Tobramycin [Tobramycin Nebules] 300 mg IH Q48H #15 each 12/26/22 Fluconazole [Diflucan] 100 mg PO DAILY 7 Days #7 tab 01/10/23 predniSONE 10 mg PO DAILY 8 Days #20 tab 01/10/23 Allergies Allergy/AdvReac Type Severity Reaction Status Date / Time cefepime Allergy SHUT DOWN Verified 02/14/23 09:21 KIDNEYS ether Allergy Anaphylaxis Verified 02/14/23 09:21 Iodinated Contrast Media Allergy PAST Verified 02/14/23 09:21 [Iodinated Contrast Media - HISTORY OF Oral and] KIDNEY PROBLEMS venom-honey bee Allergy Anaphylaxis Verified 02/14/23 09:21 sulfamethoxazole AdvReac states Verified 02/14/23 09:21 [From Bactrim] effects kidneys trimethoprim [From Bactrim] AdvReac states Verified 02/14/23 09:21 effects kidneys Review of Systems ROS Statement: Those systems with pertinent positive or pertinent negative responses have been documented in the HPI. ROS Other: All systems not noted in ROS Statement are negative. Past Medical History Past Medical History: Blood Disorder, Cancer, COPD, Deep Vein Thrombosis (DVT), GERD/Reflux, Hypertension, Pneumonia, Renal Disease Additional Past Medical History / Comment(s): hx of pseudomonus lung infection, uses CPAP not for sleep apnea, O2 prn 2l prn, diverticulits, Factor V Leiden, hx of bronchial silicone stent now removed, PICC line in past now removed, past hx dialysis for kidney damage, none currently, Stage 3 renal disease, Lung cancer - diagnosed and treated down in [place], colostomy with reversal, hernia repair History of Any Multi-Drug Resistant Organisms: MRSA, Other MDRO Date of last positivie culture/infection: 08/30/21-MRSA MDRO Source:: Sputum-MDRO & MRSA Past Surgical History: Hernia Repair, Tonsillectomy Additional Past Surgical History / Comment(s): bronchoscopy, bronchial silicone stent, now removed, fatty tumor removed from chest area, COLONOSCOPY, alexandre cataract, hernia repair, ileostomy/colostomy reversal Past Anesthesia/Blood Transfusion Reactions: Previous Problems w/ Anesthesia Additional Past Anesthesia/Blood Transfusion Reaction / Comment(s): "as infant turned black and blue from ETHER". FACTOR V LEIDEN Past Psychological History: Anxiety Smoking Status: Former smoker Past Alcohol Use History: None Reported Past Drug Use History: None Reported - Past Family History Father Family Medical History: Cancer Additional Family Medical History / Comment(s): colon cancer Mother Family Medical History: Cancer Additional Family Medical History / Comment(s): leukemia General Exam Limitations: no limitations General appearance: alert, in no apparent distress Head exam: Present: atraumatic, normocephalic Eye exam: Present: normal appearance, PERRL ENT exam: Present: normal exam Neck exam: Present: normal inspection. Absent: tenderness, meningismus Respiratory exam: Present: wheezes, rhonchi. Absent: respiratory distress Cardiovascular Exam: Present: regular rate, normal rhythm GI/Abdominal exam: Present: soft. Absent: distended, tenderness, guarding Extremities exam: Present: normal inspection, normal capillary refill. Absent: pedal edema Neurological exam: Present: alert, oriented X3 Psychiatric exam: Present: normal affect, normal mood Skin exam: Present: warm, dry, intact. Absent: cyanosis, diaphoretic Course Vital Signs 02/14/23 02/14/23 02/14/23 09:16 10:33 10:35 Temperature 98.2 F Pulse Rate 75 66 Respiratory 20 20 24 Rate Blood Pressure 170/75 157/71 O2 Sat by Pulse 96 97 Oximetry Medical Decision Making - Medical Decision Making Was pt. sent in by a medical professional or institution (, PA, CREMATORY OPERATOR, urgent care, hospital, or [facility]...) When possible be specific @ -No Did you speak to anyone other than the patient for history (EMS, parent, family, police, friend...)? What history was obtained from this source @ -No Did you review nursing and triage notes (agree or disagree)? Why? @ -I reviewed and agree with nursing and triage notes Were old charts reviewed (outside hosp., previous admission, EMS record, old EKG, old radiological studies, urgent care reports/EKG's, [facility] records)? Report findings @ -No old charts were reviewed Differential Diagnosis (chest pain, altered mental status, abdominal pain women, abdominal pain men, vaginal bleeding, weakness, fever, dyspnea, syncope, headache, dizziness, GI bleed, back pain, seizure, CVA, palpatations, mental health, musculoskeletal)? @ -Differential Dyspnea: Coronary syndrome, arrhythmia, tamponade, asthma, COPD, pulmonary embolism, pneumonia, pneumothorax, pulmonary effusion, anaphylaxis, diabetic ketoacidosis, flailed chest, pulmonary contusion, diaphragmatic rupture, anemia, neuromuscular, this is not meant to be an all-inclusive list. EKG interpreted by me (3pts min.). @ Sinus rhythm with first-degree AV block, right bundle branch block, rate of 70, TN interval 212, QRS duration 144, QTC 4:[address] segment elevation. X-rays interpreted by me (1pt min.). @ -[Chest x-ray showing bilateral pleural effusion and lower airspace opacity. CT interpreted by me (1pt min.). @ -None done U/S interpreted by me (1pt. min.). @ -None done What testing was considered but not performed or refused? (CT, X-rays, U/S, labs)? Why? @ -None What meds were considered but not given or refused? Why? @ -None Did you discuss the management of the patient with other professionals (professionals i.e. , PA, CREMATORY OPERATOR, lab, RT, psych nurse, professor of social work, ui ux developer, teacher, sewage reticulation drafting officer, family caseworker)? Give summary @ EM Was smoking cessation discussed for >3mins.? @ -No Was critical care preformed (if so, how long)? @ -No Were there social determinants of health that impacted care today? How? (Homelessness, low income, unemployed, alcoholism, drug addiction, transportation, low edu. Level, literacy, decrease access to med. care, penitentiary, rehab)? @ -No Was there de-escalation of care discussed even if they declined (Discuss DNR or withdrawal of care, Hospice)? DNR status @ -No What co-morbidities impacted this encounter? (DM, HTN, Smoking, COPD, CAD, Cancer, CVA, ARF, Chemo, Hep., AIDS, mental health diagnosis, sleep apnea, morbid obesity)? @ -[History of COPD Was patient admitted / discharged? Hospital course, mention meds given and route, prescriptions, significant lab abnormalities, going to OR and other pertinent info. @ -[77-year-old male with increased cough and dyspnea, cough productive of yellow sputum. Patient has increased oxygenation requirements. He has a stable CBC, normal CMP, chest x-ray showing bilateral lower lobe infiltrate. Patient will be admitted for COPD with pneumonia. Undiagnosed new problem with uncertain prognosis? @ -No Drug Therapy requiring intensive monitoring for toxicity (Heparin, Nitro, Insulin, Cardizem)? @ -No Were any procedures done? @ -No Diagnosis/symptom? @ -Yes, COPD, pneumonia Acute, or Chronic, or Acute on Chronic? @ -[Acute on chronic Uncomplicated (without systemic symptoms) or Complicated (systemic symptoms)? @ -default Side effects of treatment? @ -No Exacerbation, Progression, or Severe Exacerbation? @ -No Poses a threat to life or bodily function? How? (Chest pain, USA, MA, pneumonia, PE, COPD, DKA, ARF, appy, cholecystitis, CVA, Diverticulitis, Homicidal, Sandy cidal, threat to staff... and all critical care pts) @ -[Yes, respiratory failure - Lab Data Result diagrams: 02/14/23 09:41 02/14/23 09:41 Lab Results 02/14/23 02/14/23 02/14/23 Range/Units 09:41 09:41 09:41 WBC 8.2 (3.8-10.6) k/uL RBC 3.66 L (4.30-5.90) m/uL Hgb 11.3 L (13.0-17.5) gm/dL Hct 36.8 L (39.0-53.0) % MCV 100.6 H (80.0-100.0) fL MCH 30.8 (25.0-35.0) pg MCHC 30.7 L (31.0-37.0) g/dL RDW 15.5 (11.5-15.5) % Plt Count 269 (150-450) k/uL MPV 9.4 Neutrophils % 72 % Lymphocytes % 18 % Monocytes % 7 % Eosinophils % 1 % Basophils % 0 % Neutrophils # 5.9 (1.3-7.7) k/uL Lymphocytes # 1.5 (1.0-4.8) k/uL Monocytes # 0.5 (0-1.0) k/uL Eosinophils # 0.1 (0-0.7) k/uL Basophils # 0.0 (0-0.2) k/uL Hypochromasia Slight Macrocytosis Slight PT 10.2 (10.0-12.5) sec INR 0.9 (<1.2) APTT 25.2 (22.0-30.0) sec Sodium 141 (137-145) mmol/L Potassium 5.0 (3.5-5.1) mmol/L Chloride 102 (98-107) mmol/L Carbon Dioxide 31 H (22-30) mmol/L Anion Gap 8 mmol/L BUN 48 H (9-20) mg/dL Creatinine 1.43 H (0.66-1.25) mg/dL Est GFR (CKD-EPI)AfAm 54 (>60 ml/min/1.73 sqM) Est GFR (CKD-EPI)NonAf 47 (>60 ml/min/1.73 sqM) Glucose 99 (74-99) mg/dL Plasma Lactic Acid Fadi (0.7-2.0) mmol/L Calcium 9.2 (8.4-10.2) mg/dL Magnesium 2.4 H (1.6-2.3) mg/dL Total Bilirubin 0.9 (0.2-1.3) mg/dL AST 52 (17-59) U/L ALT 24 (4-49) U/L Alkaline Phosphatase 73 (38-126) U/L Total Protein 6.6 (6.3-8.2) g/dL Albumin 3.8 (3.5-5.0) g/dL Influenza Type A (PCR) (Not Detectd) Influenza Type B (PCR) (Not Detectd) RSV (PCR) (Not Detectd) SARS-CoV-2 (PCR) (Not Detectd) 02/14/23 02/14/23 Range/Units 09:41 09:41 WBC (3.8-10.6) k/uL RBC (4.30-5.90) m/uL Hgb (13.0-17.5) gm/dL Hct (39.0-53.0) % MCV (80.0-100.0) fL MCH (25.0-35.0) pg MCHC (31.0-37.0) g/dL RDW (11.5-15.5) % Plt Count (150-450) k/uL MPV Neutrophils % % Lymphocytes % % Monocytes % % Eosinophils % % Basophils % % Neutrophils # (1.3-7.7) k/uL Lymphocytes # (1.0-4.8) k/uL Monocytes # (0-1.0) k/uL Eosinophils # (0-0.7) k/uL Basophils # (0-0.2) k/uL Hypochromasia Macrocytosis PT (10.0-12.5) sec INR (<1.2) APTT (22.0-30.0) sec Sodium (137-145) mmol/L Potassium (3.5-5.1) mmol/L Chloride (98-107) mmol/L Carbon Dioxide (22-30) mmol/L Anion Gap mmol/L BUN (9-20) mg/dL Creatinine (0.66-1.25) mg/dL Est GFR (CKD-EPI)AfAm (>60 ml/min/1.73 sqM) Est GFR (CKD-EPI)NonAf (>60 ml/min/1.73 sqM) Glucose (74-99) mg/dL Plasma Lactic Acid Fadi 1.3 (0.7-2.0) mmol/L Calcium (8.4-10.2) mg/dL Magnesium (1.6-2.3) mg/dL Total Bilirubin (0.2-1.3) mg/dL AST (17-59) U/L ALT (4-49) U/L Alkaline Phosphatase (38-126) U/L Total Protein (6.3-8.2) g/dL Albumin (3.5-5.0) g/dL Influenza Type A (PCR) Not Detected (Not Detectd) Influenza Type B (PCR) Not Detected (Not Detectd) RSV (PCR) Not Detected (Not Detectd) SARS-CoV-2 (PCR) Not Detected (Not Detectd) Disposition Clinical Impression: Acute exacerbation of chronic obstructive airways disease, Pneumonia Disposition: ADMITTED IP TO THIS HOSP Condition: Stable Is patient prescribed a controlled substance at d/c from ED?: No Referrals: Madi Munguia MD [Primary Care Provider] - 1-2 days Time of Disposition: 11:29
[2023-02-14 10:20] LABS: Basophils % (A) 0 %; Eosinophils # (A) 0.1 k/uL (0-0.7); Eosinophils % (A) 1 %; HCT 36.8 % (39.0-53.0); HGB 11.3 gm/dL (13.0-17.5); Hypochromasia Slight; Lymphocytes # (A) 1.5 k/uL (1.0-4.8); Lymphocytes % (A) 18 %; MCH 30.8 pg (25.0-35.0); MCHC 30.7 g/dL (31.0-37.0); MCV 100.6 fL (80.0-100.0); Macrocytosis Slight; Mean Platelet Volume 9.4; Monocytes # (A) 0.5 k/uL (0-1.0); Monocytes % (A) 7 %; Neutrophils # (A) 5.9 k/uL (1.3-7.7); Neutrophils % (A) 72 %; Platelet Count 269 k/uL (150-450); RBC 3.66 m/uL (4.30-5.90); RDW 15.5 % (11.5-15.5); WBC 8.2 k/uL (3.8-10.6)
[2023-02-14 10:39] LABS: ALT 24 U/L (4-49); African American GFR (CKD) 54 (>60 ml/min/1.73 sqM); Albumin 3.8 g/dL (3.5-5.0); Anion Gap 8 mmol/L; Blood Urea Nitrogen 48 mg/dL (9-20); Calcium 9.2 mg/dL (8.4-10.2); Carbon Dioxide 31 mmol/L (22-30); Chloride 102 mmol/L (98-107); Glucose 99 mg/dL (74-99); Non-African American GFR(CKD) 47 (>60 ml/min/1.73 sqM); Sodium 141 mmol/L (137-145); Total Bilirubin 0.9 mg/dL (0.2-1.3); Total Protein 6.6 g/dL (6.3-8.2)
[2023-02-14 10:42] LABS: AST 52 U/L (17-59); Alkaline Phosphatase 73 U/L (38-126); Magnesium 2.4 mg/dL (1.6-2.3)
[2023-02-14 10:44] LABS: INR 0.9 (<1.2); Partial Thromboplastin Time 25.2 sec (22.0-30.0); Prothrombin Time 10.2 sec (10.0-12.5)
--- NOTE | 2023-02-14 11:07 | XR ---
EXAMINATION TYPE: XR chest 2V DATE OF EXAM: 02/14/2023 COMPARISON: 01/04/2023 HISTORY: 77 year-old male shortness of breath, difficulty breathing TECHNIQUE: AP and lateral views FINDINGS: Heart upper limits of normal in size. Interstitial prominence. Ongoing small to moderate bilateral pl eural effusions with lower lung opacity. Known right upper lobe spiculated nodule IMPRESSION: 1. Ongoing small to moderate bilateral pleural effusions with adjacent atelectasis and/or consolidati on. Correlate for CHF versus bibasilar infiltrates as possible etiologies. 2. Known suspicious right upper lobe pulmonary nodule. Appropriate oncologic follow-up recommended.
[2023-02-14] MEDS ORDERED: NALOXONE 0.4 MG/ML 1 ML VIAL IVP PRN (11:26)
[2023-02-14] MEDS ORDERED: IPRATROPIUM-ALBUTEROL 3 ML NEB INHALATION PRN (11:26)
[2023-02-14] MEDS: IPRATROPIUM-ALBUTEROL 3 ML NEB INHALATION SCH (12:12)
[2023-02-14] MEDS: LEVOFLOXACIN 500MG-D5W PMX 500 MG in DEXTROSE/WATER 1 100ML.BAG IVPB STA (15:17)
[2023-02-14] MEDS: methylPREDNISolone SOD SUCCI 125 MG/2 ML VIAL IV SCH (15:20)
[2023-02-14] MEDS: SODIUM ZIRCONIUM CYCLOSILICATE 10 GM PACKET PO SCH (15:20)
[2023-02-14] MEDS: LEVOFLOXACIN 500 MG TAB PO SCH (16:36)
[2023-02-14] MEDS: FUROSEMIDE 10 MG/ML 4 ML VIAL IV STA (16:38)
--- NOTE | 2023-02-14 17:06 | P.CNPUL ---
History of Present Illness Consult date: 02/14/23 Reason for consult: dyspnea, COPD History of present illness: 77-year-old male patient with known history of COPD, previous history of a lung mass treated by SBR T and previous history of a renal mass treated by cryotherapy, presented to the hospital because of worsening shortness of breath, cough and sputum production. His oxygen requirements have also increased and for that reason the patient decided to come into the hospital. No fever. No chills. No swelling in lower extremities. He has been maintained on Trelegy Ellipta on outpatient basis, he uses albuterol and ipratropium the blood she was on the clock. He is known to have chronic colonization with pseudomonas aeruginosa and the patient uses inhaled tobramycin every other month. The most recent bronchoscopy and bronchial lavage was done on 01/07/2023 and the patient was found to have Jaimie and his sputum and the bronchial alveolar lavage. On 12/24/2022, sputum sample was positive for pseudomonas aeruginosa. His echoes at 8.2, hemoglobin 11.3, normal coagulation profile, BUN is 48 and a creatinine is at 1.43 and the patient has chronic stage III kidney disease with a sodium level of 141. The viral screen was negative. The chest x-ray showing a right upper lobe opacity which is known from previous evaluations. Patient also has small to moderate-sized bilateral pleural effusion. LFTs are within normal limits. The most recent CAT scan of the chest abdomen and pelvis showed small bilateral pleural effusions and right lower lobe pulmonary nodule that has remained stable and the patient also has an ascending aortic aneurysm measuring 4.5 cm. This was done on 12/23/2022. The most recent echocardiogram that was done on 12/21/2022 showed a normal LV, elevated RVSP, moderate tricuspid regurgitation. Review of Systems CONSTITUTIONAL: Denies any recent significant weight loss or weight gain. EYES: Denies change in vision. EARS, NOSE, MOUTH, THROAT: Denies headaches, denies sore throat. CARDIOVASCULAR: Denies chest pain, palpitations or syncopal episodes. RESPIRATORY: Positive for shortness of breath, cough, congestion no hemoptysis. GASTROINTESTINAL: Denies change in appetite, denies abdominal pain GENITOURINARY: Denies hematuria, denies infections. MUSKULOSKELETAL: Denies pain, denies swelling. INTEGUMENTARY: Denies rash, denies eczema. NEUROLOGICAL: Denies recent memory loss, no recent seizure activity. PSYCHIATRIC: Denies anxiety, denies depression. HEMATOLOGIC/LYMPHATIC: Denies anemia, denies enlarged lymph nodes. Past Medical History Past Medical History: Blood Disorder, Cancer, COPD, Deep Vein Thrombosis (DVT), GERD/Reflux, Hypertension, Pneumonia, Renal Disease Additional Past Medical History / Comment(s): hx of pseudomonus lung infection, uses CPAP not for sleep apnea, O2 prn 2l prn, diverticulits, Factor V Leiden, hx of bronchial silicone stent now removed, PICC line in past now removed, past hx dialysis for kidney damage, none currently, Stage 3 renal disease, Lung cancer - diagnosed and treated down in [place], colostomy with reversal, hernia repair History of Any Multi-Drug Resistant Organisms: MRSA, Other MDRO Date of last positivie culture/infection: 08/30/21-MRSA MDRO Source:: Sputum-MDRO & MRSA Past Surgical History: Hernia Repair, Tonsillectomy Additional Past Surgical History / Comment(s): bronchoscopy, bronchial silicone stent, now removed, fatty tumor removed from chest area, COLONOSCOPY, alexandre cataract, hernia repair, ileostomy/colostomy reversal Past Anesthesia/Blood Transfusion Reactions: Previous Problems w/ Anesthesia Additional Past Anesthesia/Blood Transfusion Reaction / Comment(s): "as infant turned black and blue from ETHER". FACTOR V LEIDEN Past Psychological History: Anxiety Smoking Status: Former smoker Past Alcohol Use History: None Reported Past Drug Use History: None Reported - Past Family History Father Family Medical History: Cancer Additional Family Medical History / Comment(s): colon cancer Mother Family Medical History: Cancer Additional Family Medical History / Comment(s): leukemia Medications and Allergies Home Medications Medication Instructions Recorded Confirmed Type Montelukast Sodium [Singulair] 10 mg PO HS 01/24/14 02/14/23 History Metoprolol Tartrate [Lopressor] 25 mg PO BID 07/25/16 02/14/23 History L.acidoph,Paracasei, B.lactis 1 cap PO DAILY 09/01/18 02/14/23 History [Probiotic] allopurinoL [Zyloprim] 100 mg PO HS 11/21/19 02/14/23 History Albuterol Sulfate [Ventolin HFA] 2 puff INHALATION RT-QID PRN 10/21/21 02/14/23 History Fluticasone/Umeclidin/Vilanter 1 puff INHALATION RT-DAILY 10/21/21 02/14/23 History [Stuleok Ellipta 100-62.5-25] Cyanocobalamin (Vitamin B-12) 1,000 mcg PO DAILY 07/02/22 02/14/23 History [Vitamin B-12] Sodium Bicarbonate Tab 650 mg PO BID #60 tab 07/04/22 02/14/23 Rx Famotidine [Pepcid] 20 mg PO DAILY 07/11/22 02/14/23 History ALPRAZolam [Xanax] 0.5 mg PO HS 11/06/22 02/14/23 History Budesonide 0.5 mg INHALATION RT-BID 11/06/22 02/14/23 History Cetirizine HCl [Zyrtec] 10 mg PO DAILY 11/06/22 02/14/23 History Folic Acid 1 mg PO DAILY 11/06/22 02/14/23 History Sodium Zirconium Cyclosilicate 10 gm PO DAILY@1400 11/06/22 02/14/23 History [Lokelma] guaiFENesin [guaiFENesin ER] 600 mg PO BID 11/06/22 02/14/23 History Magnesium Oxide [Mag-Ox] 400 mg PO BID 30 Days #60 tab 11/10/22 02/14/23 Rx Aspirin EC [Ecotrin Low Dose] 81 mg PO DAILY 12/20/22 02/14/23 History Cholecalciferol [Vitamin D3 (25 50 mcg PO DAILY 12/20/22 02/14/23 History Mcg = 1000 Iu)] Doxazosin [Cardura] 4 mg PO HS 12/20/22 02/14/23 History polyethylene glycoL 3350 [Miralax] 17 gm PO DAILY 12/20/22 02/14/23 History Ipratropium-Albuterol Nebulize 3 ml INHALATION RT-QID #120 each 12/25/22 02/14/23 Rx [Duoneb 0.5 mg-3 mg/3 ml Soln] Tobramycin [Tobramycin Nebules] 300 mg IH Q48H #15 each 12/26/22 02/14/23 Rx Furosemide [Lasix] 20 mg PO Q2D 01/05/23 02/14/23 History Allergies Allergy/AdvReac Type Severity Reaction Status Date / Time cefepime Allergy SHUT DOWN Verified 02/14/23 13:15 KIDNEYS ether Allergy Anaphylaxis Verified 02/14/23 13:15 Iodinated Contrast Media Allergy PAST Verified 02/14/23 13:15 [Iodinated Contrast Media - HISTORY OF Oral and] KIDNEY PROBLEMS venom-honey bee Allergy Anaphylaxis Verified 02/14/23 13:15 sulfamethoxazole AdvReac states Verified 02/14/23 13:15 [From Bactrim] effects kidneys trimethoprim [From Bactrim] AdvReac states Verified 02/14/23 13:15 effects kidneys Physical Exam Vitals: Vital Signs Temp Pulse Resp BP Pulse Ox 02/14/23 16:12 69 02/14/23 16:04 69 02/14/23 15:14 70 22 144/66 97 02/14/23 12:20 69 02/14/23 12:12 69 16 97 02/14/23 10:35 24 02/14/23 10:33 66 20 157/71 97 02/14/23 09:16 98.2 F 75 20 170/75 96 Intake and Output 02/14/23 02/14/23 02/14/23 06:59 14:59 22:59 Other: Weight 67.132 kg GENERAL EXAM: Alert, thin 77-year-old male, on 2 L O2 nasal cannula, comfortable in no apparent distress. HEAD: Normocephalic. EYES: Normal reaction of pupils, equal size. NOSE: Clear with pink turbinates. THROAT: No erythema or exudates. NECK: No masses, no JVD. CHEST: No chest wall deformity. LUNGS: Equal air entry with faint crackles in the bilateral bases. Diminished. CVS: S1 and S2 normal with no audible murmur, regular rhythm. ABDOMEN: Dressing/binder in place. No hepatosplenomegaly, normal bowel sounds, no guarding or rigidity. SPINE: No scoliosis or deformity SKIN: No rashes CENTRAL NERVOUS SYSTEM: No focal deficits, tone is normal in all 4 extremities. EXTREMITIES: There is no peripheral edema. No clubbing, no cyanosis. Peripheral pulses are intact. Results - Laboratory Findings CBC and BMP: 02/14/23 09:41 02/14/23 09:41 PT/INR, D-dimer PT 10.2 sec (10.0-12.5) 02/14/23 09:41 INR 0.9 (<1.2) 02/14/23 09:41 Abnormal lab findings: Abnormal Labs 02/14/23 12 09:41 09:41 RBC 3.66 L Hgb 11.3 L Hct 36.8 L MCV 100.6 H MCHC 30.7 L Carbon Dioxide 31 H BUN 48 H Creatinine 1.43 H Magnesium 2.4 H - Diagnostic Findings Chest x-ray: image reviewed Assessment and Plan Plan: Acute on chronic dyspnea with development of an acute hypoxic respiratory failure currently on 2 L of oxygen by nasal cannula. Consider COPD exacerbation in addition to recurrent tracheobronchitis with pseudomonas aeruginosa. The vital screening was negative. Chest x-ray showing also some interval worsening in the bilateral pleural effusions. 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 Chronic stage III kidney disease Tracheobronchomalacia, confirmed by previous bronchoscopies History of infected 5 Leyden Hypertension History of renal mass treated by cryotherapy Previous history of a DVT of the left lower extremity Hypertension Obstructive sleep apnea Diverticulosis with previous diverticulitis History of colonic perforation requiring colectomy and colostomy Plan We'll treated patient with oxygen therapy at 2 L nasal cannula Start Symbicort DuoNeb updrafts 4 times a day IV Solu-Medrol 60 mg every 6 hours IV Zosyn Inhaled tobramycin every other day We'll give a dose of diuretics 40 mg IV push Lasix Check troponins Check pro BNP Repeat sputum sample Resume all medications We'll follow
[2023-02-14] MEDS: SYMBICORT 160-4.5 MCG INHALER INHALATION SCH (20:04)
[2023-02-14] MEDS ORDERED: FAMOTIDINE 20 MG/2 ML VIAL IV SCH ×2 (21:00)
[2023-02-14] MEDS: allopurinoL 100 MG TAB PO SCH (21:32)
[2023-02-14] MEDS: PIPERACILLIN-TAZOBACTAM 3.375 GM in SODIUM CHLORIDE 0.9% 100 ML IVPB SCH (21:32)
[2023-02-14] MEDS: HEPARIN SODIUM,PORCINE 5,000 UNIT/ML 1 ML VIAL SQ SCH (21:32)
[2023-02-14] MEDS: FAMOTIDINE 20 MG TAB PO SCH (21:32)
[2023-02-14] MEDS: MAGNESIUM OXIDE 400 MG TAB PO SCH (21:32)
[2023-02-14] MEDS: DOXAZOSIN 4 MG TAB PO SCH (21:32)
[2023-02-14] MEDS: SODIUM BICARBONATE TAB 650 MG TAB PO SCH (21:32)
[2023-02-14] MEDS: ALPRAZolam 0.5 MG TAB PO SCH (21:32)
[2023-02-14] MEDS: guaiFENesin 600 MG TABLET.ER PO SCH (21:32)
[2023-02-14] MEDS: METOPROLOL TARTRATE 25 MG TAB PO SCH (21:32)
[2023-02-14] MEDS: MONTELUKAST 10 MG TAB PO SCH (21:32)
--- NOTE | 2023-02-14 21:53 | P.HPIM ---
History of Present Illness H&P Date: 02/14/23 Chief Complaint: Shortness of breath 77 yo male patient with history of hypertension, DVT, COPD presenting with increased dyspnea, productive cough. Patient has history of COPD and wears oxygen at night only. He states over the past several days he's had increased oxygen requirements and has been wearing his oxygen throughout the day for hypoxia and increased dyspnea. He reports productive cough of yellow sputum. No fever. No chest pain. No lower extremity pain or swelling. Workup completed in ED to visit to be tapered from 8.2, hemoglobin 11.3 and platelet count of 269, sodium 141 cultures eventually to, BUN/creatinine of 48/1.43 Review of Systems REVIEW OF SYSTEMS: CONSTITUTIONAL: No fever, no malaise, no fatigue. HEENT: No recent visual problems or hearing problems. Denied any sore throat. CARDIOVASCULAR: No chest pain, orthopnea, PND, no palpitations, no syncope. PULMONARY: No shortness of breath, no cough, no hemoptysis. GASTROINTESTINAL: No diarrhea, no nausea, no vomiting, no abdominal pain. NEUROLOGICAL: No headaches, no weakness, no numbness. HEMATOLOGICAL: Denies any bleeding or petechiae. GENITOURINARY: Denies any burning micturition, frequency, or urgency. MUSCULOSKELETAL/RHEUMATOLOGICAL: Denies any joint pain, swelling, or any muscle pain. ENDOCRINE: Denies any polyuria or polydipsia. The rest of the 14-point review of systems is negative. Past Medical History Past Medical History: Blood Disorder, Cancer, COPD, Deep Vein Thrombosis (DVT), GERD/Reflux, Hypertension, Pneumonia, Renal Disease Additional Past Medical History / Comment(s): hx of pseudomonus lung infection, uses CPAP not for sleep apnea, O2 prn 2l prn, diverticulits, Factor V Leiden, hx of bronchial silicone stent now removed, PICC line in past now removed, past hx dialysis for kidney damage, none currently, Stage 3 renal disease, Lung cancer - diagnosed and treated down in [place], colostomy with reversal, hernia repair History of Any Multi-Drug Resistant Organisms: MRSA, Other MDRO Date of last positivie culture/infection: 08/30/21-MRSA MDRO Source:: Sputum-MDRO & MRSA Past Surgical History: Hernia Repair, Tonsillectomy Additional Past Surgical History / Comment(s): bronchoscopy, bronchial silicone stent, now removed, fatty tumor removed from chest area, COLONOSCOPY, alexandre cataract, hernia repair, ileostomy/colostomy reversal Past Anesthesia/Blood Transfusion Reactions: Previous Problems w/ Anesthesia Additional Past Anesthesia/Blood Transfusion Reaction / Comment(s): "as infant turned black and blue from ETHER". FACTOR V LEIDEN Past Psychological History: Anxiety Smoking Status: Former smoker Past Alcohol Use History: None Reported Past Drug Use History: None Reported - Past Family History Father Family Medical History: Cancer Additional Family Medical History / Comment(s): colon cancer Mother Family Medical History: Cancer Additional Family Medical History / Comment(s): leukemia Medications and Allergies Home Medications Medication Instructions Recorded Confirmed Type Montelukast Sodium [Singulair] 10 mg PO HS 01/24/14 02/14/23 History Metoprolol Tartrate [Lopressor] 25 mg PO BID 07/25/16 02/14/23 History L.acidoph,Paracasei, B.lactis 1 cap PO DAILY 09/01/18 02/14/23 History [Probiotic] allopurinoL [Zyloprim] 100 mg PO HS 11/21/19 02/14/23 History Albuterol Sulfate [Ventolin HFA] 2 puff INHALATION RT-QID PRN 10/21/21 02/14/23 History Fluticasone/Umeclidin/Vilanter 1 puff INHALATION RT-DAILY 10/21/21 02/14/23 History [Trelegy Ellipta 100-62.5-25] Cyanocobalamin (Vitamin B-12) 1,000 mcg PO DAILY 07/02/22 02/14/23 History [Vitamin B-12] Sodium Bicarbonate Tab 650 mg PO BID #60 tab 07/04/22 02/14/23 Rx Famotidine [Pepcid] 20 mg PO DAILY 07/11/22 02/14/23 History ALPRAZolam [Xanax] 0.5 mg PO HS 11/06/22 02/14/23 History Budesonide 0.5 mg INHALATION RT-BID 11/06/22 02/14/23 History Cetirizine HCl [Zyrtec] 10 mg PO DAILY 11/06/22 02/14/23 History Folic Acid 1 mg PO DAILY 11/06/22 02/14/23 History Sodium Zirconium Cyclosilicate 10 gm PO DAILY@1400 11/06/22 02/14/23 History [Lokelma] guaiFENesin [guaiFENesin ER] 600 mg PO BID 11/06/22 02/14/23 History Magnesium Oxide [Mag-Ox] 400 mg PO BID 30 Days #60 tab 11/10/22 02/14/23 Rx Aspirin EC [Ecotrin Low Dose] 81 mg PO DAILY 12/20/22 02/14/23 History Cholecalciferol [Vitamin D3 (25 50 mcg PO DAILY 12/20/22 02/14/23 History Mcg = 1000 Iu)] Doxazosin [Cardura] 4 mg PO HS 12/20/22 02/14/23 History polyethylene glycoL 3350 [Miralax] 17 gm PO DAILY 12/20/22 02/14/23 History Ipratropium-Albuterol Nebulize 3 ml INHALATION RT-QID #120 each 12/25/22 02/14/23 Rx [Duoneb 0.5 mg-3 mg/3 ml Soln] Tobramycin [Tobramycin Nebules] 300 mg IH Q48H #15 each 12/26/22 02/14/23 Rx Furosemide [Lasix] 20 mg PO Q2D 01/05/23 02/14/23 History Allergies Allergy/AdvReac Type Severity Reaction Status Date / Time cefepime Allergy SHUT DOWN Verified 02/14/23 13:15 KIDNEYS ether Allergy Anaphylaxis Verified 02/14/23 13:15 Iodinated Contrast Media Allergy PAST Verified 02/14/23 13:15 [Iodinated Contrast Media - HISTORY OF Oral and] KIDNEY PROBLEMS venom-honey bee Allergy Anaphylaxis Verified 02/14/23 13:15 sulfamethoxazole AdvReac states Verified 02/14/23 13:15 [From Bactrim] effects kidneys trimethoprim [From Bactrim] AdvReac states Verified 02/14/23 13:15 effects kidneys Physical Exam Vitals: Vital Signs Temp Pulse Resp BP Pulse Ox 02/14/23 12:20 69 02/14/23 12:12 69 16 97 02/14/23 10:35 24 02/14/23 10:33 66 20 157/71 97 02/14/23 09:16 98.2 F 75 20 170/75 96 Intake and Output 02/13/23 02/14/23 02/14/23 22:59 06:59 14:59 Other: Weight 67.132 kg General appearance: alert, in no apparent distress Head exam: Present: atraumatic, normocephalic Eye exam: Present: normal appearance, PERRL Neck exam: Present: normal inspection. Absent: tenderness, meningismus Respiratory exam: Present: wheezes, rhonchi. Absent: respiratory distress Cardiovascular Exam: Present: regular rate, normal rhythm GI/Abdominal exam: Present: soft. Absent: distended, tenderness, guarding Extremities exam: Present: normal inspection, normal capillary refill. Absent: pedal edema Neurological exam: Present: alert, oriented X3 Skin exam: Present: warm, dry, intact. Absent: cyanosis, diaphoretic Results CBC & Chem 7: 02/14/23 09:41 02/14/23 09:41 Labs: Abnormal Lab Results - Last 24 Hours (Table) 02/14/23 02/14/23 Range/Units 09:41 09:41 RBC 3.66 L (4.30-5.90) m/uL Hgb 11.3 L (13.0-17.5) gm/dL Hct 36.8 L (39.0-53.0) % MCV 100.6 H (80.0-100.0) fL MCHC 30.7 L (31.0-37.0) g/dL Carbon Dioxide 31 H (22-30) mmol/L BUN 48 H (9-20) mg/dL Creatinine 1.43 H (0.66-1.25) mg/dL Magnesium 2.4 H (1.6-2.3) mg/dL Assessment and Plan Assessment: 1. Acute on chronic hypoxic respiratory failure - Patient will remain on O2 per nasal cannula; we will titrate her weaning as able 2. Bilateral pneumonia; started on IV Levaquin 500 mg daily in ED; sputum culture and blood cultures are ordered - Monitor CBC, CRP and pro-calcitonin - Consult pulmonology for further recommendations 3. Acute exacerbation COPD; Solu-Medrol 60 mg IV every 6 hours; DuoNeb nebulizer treatments 4 times a day and when necessary; continue home dose of Singulair 10 mg daily 4. Acute on chronic kidney disease stage III; slow IV fluid hydration; monitor strict PILAR's, daily weights, renal function and electrolytes; avoid nephrotoxins and hypotension; continue Lokelma 10 g by mouth daily 5. Hypertension; Cardura 4 mg daily; metoprolol 25 mg twice a day 6. History of factor V Leyden deficiency/DVT; currently not on any anticoagulation therapy 7. Obstructive sleep apnea DVT prophylaxis; SCDs/subcu heparin CODE STATUS; full code
[2023-02-15] MEDS ORDERED: NON FORMULARY DRUG (Fluticasone/Umeclidin/Vilanter [Trelegy Ellipta 100-62.5-25] 1 EACH Bl INHALATION SCH (08:00)
[2023-02-15] MEDS: TOBRAMYCIN 300MG/7.5ML SYRG *FOR INHALATION INHALATION SCH (08:18)
[2023-02-15] MEDS: CYANOCOBALAMIN 500 MCG TAB PO SCH (10:24)
[2023-02-15] MEDS: LORATADINE 10 MG TAB PO SCH (10:24)
[2023-02-15] MEDS: CHOLECALCIFEROL 25 MCG (1000 IU) TABLET PO SCH (10:25)
[2023-02-15] MEDS: ASPIRIN 81 MG PO SCH (10:25)
[2023-02-15] MEDS: PIPERACILLIN-TAZOBACTAM 3.375 GM in SODIUM CHLORIDE 0.9% 100 ML IVPB SCH (10:25)
[2023-02-15] MEDS: LACTOBACILLUS ACIDOPHILUS/PECT 1 EACH CAPSULE PO SCH (10:38)
[2023-02-15] MEDS: FOLIC ACID 1 MG TAB PO SCH (10:39)
[2023-02-15] MEDS: polyethylene glycoL 3350 17 GM POWD.PACK PO SCH (12:41)
--- NOTE | 2023-02-15 12:50 | P.PN ---
Subjective Progress Note Date: 02/15/23 77-year-old male patient with known history of COPD, previous history of a lung mass treated by SBR T and previous history of a renal mass treated by cryotherapy, presented to the hospital because of worsening shortness of breath, cough and sputum production. His oxygen requirements have also increased and for that reason the patient decided to come into the hospital. No fever. No chills. No swelling in lower extremities. He has been maintained on Trelegy Ellipta on outpatient basis, he uses albuterol and ipratropium the blood she was on the clock. He is known to have chronic colonization with pseudomonas aeruginosa and the patient uses inhaled tobramycin every other month. The most recent bronchoscopy and bronchial lavage was done on 01/07/2023 and the patient was found to have Jaimie and his sputum and the bronchial alveolar lavage. On 12/24/2022, sputum sample was positive for pseudomonas aeruginosa. His echoes at 8.2, hemoglobin 11.3, normal coagulation profile, BUN is 48 and a creatinine is at 1.43 and the patient has chronic stage III kidney disease with a sodium level of 141. The viral screen was negative. The chest x-ray showing a right upper lobe opacity which is known from previous evaluations. Patient also has small to moderate-sized bilateral pleural effusion. LFTs are within normal limits. The most recent CAT scan of the chest abdomen and pelvis showed small bilateral pleural effusions and right lower lobe pulmonary nodule that has remained stable and the patient also has an ascending aortic aneurysm measuring 4.5 cm. This was done on 12/23/2022. The most recent echocardiogram that was done on 12/21/2022 showed a normal LV, elevated RVSP, moderate tricuspid regurgitation. On today's evaluation of 02/15/2023, no new complaints. Clinically improving. Marked improvement since yesterday. No new labs are available from today other than a pro-calcitonin level that was at 0.4. The proBNP level was 2790. The patient was given Lasix yesterday. Another dose of Lasix will be given today. He did have some small bilateral pleural effusions. He is currently on IV Zosyn. He is also on steroids. Objective - Vital Signs Vital signs: Vital Signs Temp 98.0 F 02/15/23 07:00 Pulse 46 L 02/15/23 08:51 Resp 16 02/15/23 07:00 BP 151/69 02/15/23 07:00 Pulse Ox 96 02/15/23 08:25 FiO2 Intake & Output 02/14/23 02/15/23 02/15/23 18:59 06:59 18:59 Weight 67.132 kg Other: # Voids 350 - Exam GENERAL EXAM: Alert, thin 77-year-old male, on 2 L O2 nasal cannula, comfortable in no apparent distress. HEAD: Normocephalic. EYES: Normal reaction of pupils, equal size. NOSE: Clear with pink turbinates. THROAT: No erythema or exudates. NECK: No masses, no JVD. CHEST: No chest wall deformity. LUNGS: Equal air entry with faint crackles in the bilateral bases. Diminished. CVS: S1 and S2 normal with no audible murmur, regular rhythm. ABDOMEN: Dressing/binder in place. No hepatosplenomegaly, normal bowel sounds, no guarding or rigidity. SPINE: No scoliosis or deformity SKIN: No rashes CENTRAL NERVOUS SYSTEM: No focal deficits, tone is normal in all 4 extremities. EXTREMITIES: There is no peripheral edema. No clubbing, no cyanosis. Peripheral pulses are intact. - Labs CBC & Chem 7: 02/14/23 09:41 02/14/23 09:41 Labs: Abnormal Lab Results - Last 24 Hours (Table) 02/14/23 Range/Units 16:36 Procalcitonin 0.49 H (0.02-0.09) ng/mL Assessment and Plan Plan: Acute on chronic dyspnea with development of an acute hypoxic respiratory failure currently on 2 L of oxygen by nasal cannula. Consider COPD exacerbation in addition to recurrent tracheobronchitis with pseudomonas aeruginosa. The vital screening was negative. Chest x-ray showing also some interval worsening in the bilateral pleural effusions. 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 Chronic stage III kidney disease Tracheobronchomalacia, confirmed by previous bronchoscopies History of infected 5 Leyden Hypertension History of renal mass treated by cryotherapy Previous history of a DVT of the left lower extremity Hypertension Obstructive sleep apnea Diverticulosis with previous diverticulitis History of colonic perforation requiring colectomy and colostomy Plan Clinically improving We'll treated patient with oxygen therapy at 2 L nasal cannula Continue DuoNeb updrafts 4 times a day IV Solu-Medrol 60 mg every 6 hours IV Zosyn Inhaled tobramycin every other day Give additional dose of Lasix 40 mg IV push 1 Check troponins Check pro BNP Repeat sputum sample is still pending Resume all medications We'll follow
--- NOTE | 2023-02-16 06:38 | P.PN ---
Subjective Progress Note Date: 02/15/23 77 yo male patient with history of hypertension, DVT, COPD presenting with increased dyspnea, productive cough. Patient has history of COPD and wears oxygen at night only. He states over the past several days he's had increased oxygen requirements and has been wearing his oxygen throughout the day for h ypoxia and increased dyspnea. He reports productive cough of yellow sputum. No fever. No chest pain. No lower extremity pain or swelling. Workup completed in ED to visit to be tapered from 8.2, hemoglobin 11.3 and platelet count of 269, sodium 141 cultures eventually to, BUN/creatinine of 48/1.43 Objective - Vital Signs Vital signs: Vital Signs Temp 98.0 F 02/15/23 07:00 Pulse 46 L 02/15/23 08:51 Resp 16 02/15/23 07:00 BP 151/69 02/15/23 07:00 Pulse Ox 96 02/15/23 08:25 FiO2 Intake & Output 02/14/23 02/15/23 02/15/23 18:59 06:59 18:59 Weight 67.132 kg Other: # Voids 350 - Exam General appearance: alert, in no apparent distress Head exam: Present: atraumatic, normocephalic Eye exam: Present: normal appearance, PERRL Neck exam: Present: normal inspection. Absent: tenderness, meningismus Respiratory exam: Present: wheezes, rhonchi. Absent: respiratory distress Cardiovascular Exam: Present: regular rate, normal rhythm GI/Abdominal exam: Present: soft. Absent: distended, tenderness, guarding Extremities exam: Present: normal inspection, normal capillary refill. Absent: pedal edema Neurological exam: Present: alert, oriented X3 Skin exam: Present: warm, dry, intact. Absent: cyanosis, diaphoretic - Labs CBC & Chem 7: 02/14/23 09:41 02/14/23 09:41 Labs: Abnormal Lab Results - Last 24 Hours (Table) 02/14/23 Range/Units 16:36 Procalcitonin 0.49 H (0.02-0.09) ng/mL Assessment and Plan Assessment: 1. Acute on chronic hypoxic respiratory failure - Patient will remain on O2 per nasal cannula; we will titrate her weaning as able 2. Bilateral pneumonia; started on IV Levaquin 500 mg daily in ED; sputum culture and blood cultures are ordered - Monitor CBC, CRP and pro-calcitonin - Consult pulmonology for further recommendations 3. Acute exacerbation COPD; Solu-Medrol 60 mg IV every 6 hours; DuoNeb nebulizer treatments 4 times a day and when necessary; continue home dose of Singulair 10 mg daily 4. Acute on chronic kidney disease stage III; slow IV fluid hydration; monitor strict PILAR's, daily weights, renal function and electrolytes; avoid nephrotoxins and hypotension; continue Lokelma 10 g by mouth daily 5. Hypertension; Cardura 4 mg daily; metoprolol 25 mg twice a day 6. History of factor V Leyden deficiency/DVT; currently not on any anticoagulation therapy 7. Obstructive sleep apnea DVT prophylaxis; SCDs/subcu heparin CODE STATUS; full code
--- NOTE | 2023-02-16 12:57 | P.CONS ---
History of Present Illness - Reason for Consult Consult date: 02/16/23 wound care - History of Present Illness 77-year-old patient with a nonhealing ulceration to the abdomen. Patient had surgery back in November and has a open ulceration since that time. Patient has been utilizing collagen and an occlusive dressing with the help of the nursing. Patient is a cluster of 2 ulcerations measuring 0.2 x 0.2 x 0.1 cm and 0.3 x 0.3 x 0.1 cm Limited to skin breakdown. No tunneling or undermining noted. Granulation seen throughout the wound bed. He has not seen an advance wound care center. Past medical history significant for lung cancer, stage III renal disease, deep vein pulses, GERD, hypertension. Review Of Systems: Constitutional: No fever, no chills, no night sweats. No weight change. No weakness, fatigue or lethargy. No daytime sleepiness. Integumentary:reports wounds, no lesions. No rash or pruritus. No unusual bruising. No change in hair or nails. Physical exam: General Appearance: Alert, cooperative, no distress, appears stated age. Skin: See HPI all other Skin color, texture, tugor normal, no rashes or lesions. Neurologic: Alert oriented x3 Assessment: 1. Nonhealing ulceration of other site Limited to skin breakdown Plan: 1. Apply collagen, saline moistened gauze and border foam. Change twice a week. Patient will continue with home care for dressing needs. Thank you for the consultation and questions to contact the wound care center DNP note has been reviewed and discussed with Dr. Turner and the impression and plan of care has been directed as dictated. Past Medical History Past Medical History: Blood Disorder, Cancer, COPD, Deep Vein Thrombosis (DVT), GERD/Reflux, Hypertension, Pneumonia, Renal Disease Additional Past Medical History / Comment(s): hx of pseudomonus lung infection, uses CPAP not for sleep apnea, O2 prn 2l prn, diverticulits, Factor V Leiden, hx of bronchial silicone stent now removed, PICC line in past now removed, past hx dialysis for kidney damage, none currently, Stage 3 renal disease, Lung cancer - diagnosed and treated down in [place], colostomy with reversal, hernia repair History of Any Multi-Drug Resistant Organisms: MRSA, Other MDRO Year Discovered:: 08/30/21-MRSA MDRO Source:: Sputum-MDRO & MRSA Past Surgical History: Hernia Repair, Tonsillectomy Additional Past Surgical History / Comment(s): bronchoscopy, bronchial silicone stent, now removed, fatty tumor removed from chest area, COLONOSCOPY, [facility] ct, hernia repair, ileostomy/colostomy reversal Past Anesthesia/Blood Transfusion Reactions: Previous Problems w/ Anesthesia Additional Past Anesthesia/Blood Transfusion Reaction / Comm: "as infant turned black and blue from ETHER". FACTOR V LEIDEN Past Psychological History: Anxiety Smoking Status: Former smoker Past Alcohol Use History: None Reported Past Drug Use History: None Reported - Past Family History Father Family Medical History: Cancer Additional Family Medical History / Comment(s): colon cancer Mother Family Medical History: Cancer Additional Family Medical History / Comment(s): leukemia Medications and Allergies Home Medications Medication Instructions Recorded Confirmed Type Montelukast Sodium [Singulair] 10 mg PO HS 01/24/14 02/14/23 History Metoprolol Tartrate [Lopressor] 25 mg PO BID 07/25/16 02/14/23 History L.acidoph,Paracasei, B.lactis 1 cap PO DAILY 09/01/18 02/14/23 History [Probiotic] allopurinoL [Zyloprim] 100 mg PO HS 11/21/19 02/14/23 History Albuterol Sulfate [Ventolin HFA] 2 puff INHALATION RT-QID PRN 10/21/21 02/14/23 History Fluticasone/Umeclidin/Vilanter 1 puff INHALATION RT-DAILY 10/21/21 02/14/23 History [Trelegy Ellipta 100-62.5-25] Cyanocobalamin (Vitamin B-12) 1,000 mcg PO DAILY 07/02/22 02/14/23 History [Vitamin B-12] Sodium Bicarbonate Tab 650 mg PO BID #60 tab 07/04/22 02/14/23 Rx Famotidine [Pepcid] 20 mg PO DAILY 07/11/22 02/14/23 History ALPRAZolam [Xanax] 0.5 mg PO HS 11/06/22 02/14/23 History Budesonide 0.5 mg INHALATION RT-BID 11/06/22 02/14/23 History Cetirizine HCl [Zyrtec] 10 mg PO DAILY 11/06/22 02/14/23 History Folic Acid 1 mg PO DAILY 11/06/22 02/14/23 History Sodium Zirconium Cyclosilicate 10 gm PO DAILY@1400 11/06/22 02/14/23 History [Lokelma] guaiFENesin [guaiFENesin ER] 600 mg PO BID 11/06/22 02/14/23 History Magnesium Oxide [Mag-Ox] 400 mg PO BID 30 Days #60 tab 11/10/22 02/14/23 Rx Aspirin EC [Ecotrin Low Dose] 81 mg PO DAILY 12/20/22 02/14/23 History Cholecalciferol [Vitamin D3 (25 50 mcg PO DAILY 12/20/22 02/14/23 History Mcg = 1000 Iu)] Doxazosin [Cardura] 4 mg PO HS 12/20/22 02/14/23 History polyethylene glycoL 3350 [Miralax] 17 gm PO DAILY 12/20/22 02/14/23 History Ipratropium-Albuterol Nebulize 3 ml INHALATION RT-QID #120 each 12/25/22 02/14/23 Rx [Duoneb 0.5 mg-3 mg/3 ml Soln] Tobramycin [Tobramycin Nebules] 300 mg IH Q48H #15 each 12/26/22 02/14/23 Rx Furosemide [Lasix] 20 mg PO Q2D 01/05/23 02/14/23 History Allergies Allergy/AdvReac Type Severity Reaction Status Date / Time cefepime Allergy SHUT DOWN Verified 02/14/23 13:15 KIDNEYS ether Allergy Anaphylaxis Verified 02/14/23 13:15 Iodinated Contrast Media Allergy PAST Verified 02/14/23 13:15 [Iodinated Contrast Media - HISTORY OF Oral and] KIDNEY PROBLEMS venom-honey bee Allergy Anaphylaxis Verified 02/14/23 13:15 sulfamethoxazole AdvReac states Verified 02/14/23 13:15 [From Bactrim] effects kidneys trimethoprim [From Bactrim] AdvReac states Verified 02/14/23 13:15 effects kidneys Physical Exam Vitals: Vital Signs Temp Pulse Pulse Resp BP Pulse Ox 02/16/23 12:24 68 02/16/23 12:12 68 02/16/23 09:10 72 02/16/23 08:54 68 02/16/23 07:00 97.8 F 81 16 143/75 99 02/16/23 02:00 97.8 F 75 16 156/69 99 02/16/23 01:59 18 02/15/23 20:52 53 L 02/15/23 20:42 50 L 02/15/23 20:00 97.9 F 78 18 141/62 97 02/15/23 16:54 50 L 02/15/23 16:44 47 L 02/15/23 14:12 98.0 F 65 16 152/71 97 02/15/23 14:00 16 Intake and Output 02/15/23 02/16/23 02/16/23 22:59 06:59 14:59 Output Total 500 Balance -500 Output: Urine 500 Other: Voiding Method Toilet Toilet # Voids 2 Results CBC & Chem 7: 02/14/23 09:41 02/14/23 09:41 Labs: Microbiology - Last 24 Hours (Table) 02/14/23 10:17 Blood Culture - Preliminary Blood 02/14/23 10:17 Blood Culture - Preliminary Blood Assessment and Plan (1) Non-pressure chronic ulcer of skin of other sites limited to breakdown of skin Current Visit: Yes Status: Acute Code(s): L98.491 - NON-PRS CHRONIC ULCER SKIN/ SITES LIMITED TO BRKDWN SKIN SNOMED Code(s): 64955796
--- NOTE | 2023-02-16 13:26 | P.PN ---
Subjective Progress Note Date: 02/16/23 77-year-old male patient with known history of COPD, previous history of a lung mass treated by SBR T and previous history of a renal mass treated by cryotherapy, presented to the hospital because of worsening shortness of breath, cough and sputum production. His oxygen requirements have also increased and for that reason the patient decided to come into the hospital. No fever. No chills. No swelling in lower extremities. He has been maintained on Trelegy Ellipta on outpatient basis, he uses albuterol and ipratropium the blood she was on the clock. He is known to have chronic colonization with pseudomonas aeruginosa and the patient uses inhaled tobramycin every other month. The most recent bronchoscopy and bronchial lavage was done on 01/07/2023 and the patient was found to have Jaimie and his sputum and the bronchial alveolar lavage. On 12/24/2022, sputum sample was positive for pseudomonas aeruginosa. His echoes at 8.2, hemoglobin 11.3, normal coagulation profile, BUN is 48 and a creatinine is at 1.43 and the patient has chronic stage III kidney disease with a sodium level of 141. The viral screen was negative. The chest x-ray showing a right upper lobe opacity which is known from previous evaluations. Patient also has small to moderate-sized bilateral pleural effusion. LFTs are within normal limits. The most recent CAT scan of the chest abdomen and pelvis showed small bilateral pleural effusions and right lower lobe pulmonary nodule that has remained stable and the patient also has an ascending aortic aneurysm measuring 4.5 cm. This was done on 12/23/2022. The most recent echocardiogram that was done on 12/21/2022 showed a normal LV, elevated RVSP, moderate tricuspid regurgitation. On today's evaluation of 02/15/2023, no new complaints. Clinically improving. Marked improvement since yesterday. No new labs are available from today other than a pro-calcitonin level that was at 0.4. The proBNP level was 2790. The patient was given Lasix yesterday. Another dose of Lasix will be given today. He did have some small bilateral pleural effusions. He is currently on IV Zosyn. He is also on steroids. The patient is seen today 02/16/2023 in follow-up on the regular medical floor. He is sitting up in bed. Awake and alert in no acute distress. Still with some loose nonproductive cough. Maintaining O2 saturations in the 90s on 3 L/m per n edgar cannula. He is afebrile. Hemodynamically stable. He is currently on Zosyn and inhaled tobramycin. Remains on bronchodilators, steroids, Mucinex. Objective - Vital Signs Vital signs: Vital Signs Temp 97.8 F 02/16/23 07:00 Pulse 68 02/16/23 12:24 Resp 16 02/16/23 07:00 BP 143/75 02/16/23 07:00 Pulse Ox 99 02/16/23 07:00 FiO2 Intake & Output 02/15/23 02/16/23 02/16/23 18:59 06:59 18:59 Intake Total 180 Output Total 500 Balance 180 -500 Intake: Oral 180 Output: Urine 500 Other: Voiding Method Toilet Toilet # Voids 3 2 - Exam GENERAL EXAM: Alert, thin 77-year-old male, sitting up in bed on 2 L O2 nasal cannula, comfortable in no apparent distress. HEAD: Normocephalic. EYES: Normal reaction of pupils, equal size. NOSE: Clear with pink turbinates. THROAT: No erythema or exudates. NECK: No masses, no JVD. CHEST: No chest wall deformity. LUNGS: Equal air entry with faint crackles in the bilateral bases. Diminished. CVS: S1 and S2 normal with no audible murmur, regular rhythm. ABDOMEN: Dressing/binder in place. No hepatosplenomegaly, normal bowel sounds, no guarding or rigidity. SPINE: No scoliosis or deformity SKIN: No rashes CENTRAL NERVOUS SYSTEM: No focal deficits, tone is normal in all 4 extremities. EXTREMITIES: There is no peripheral edema. No clubbing, no cyanosis. Peripheral pulses are intact. - Labs CBC & Chem 7: 02/14/23 09:41 02/14/23 09:41 Labs: Microbiology - Last 24 Hours (Table) 02/14/23 10:17 Blood Culture - Preliminary Blood 02/14/23 10:17 Blood Culture - Preliminary Blood Assessment and Plan Assessment: Acute on chronic dyspnea with development of an acute hypoxic respiratory failure currently on 2 L of oxygen by nasal cannula. Consider COPD exacerbation in addition to recurrent tracheobronchitis with pseudomonas aeruginosa. The v ital screening was negative. Chest x-ray showing also some interval worsening in the bilateral pleural effusions. 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 Chronic stage III kidney disease Tracheobronchomalacia, confirmed by previous bronchoscopies History of infected 5 Leyden Hypertension History of renal mass treated by cryotherapy Previous history of a DVT of the left lower extremity Hypertension Obstructive sleep apnea Diverticulosis with previous diverticulitis History of colonic perforation requiring colectomy and colostomy Plan The patient was seen and evaluated Medications reviewed Still not much improvement We'll plan for bronchoscopy with BAL tomorrow Continue Zosyn and inhaled tobramycin Continue bronchodilators, steroids We'll continue to follow I have personally seen and examined the patient, performed the documentation and the assessment and plan as written. Number of minutes spent on the visit: 10.
--- NOTE | 2023-02-16 23:56 | P.PN ---
Subjective Progress Note Date: 02/16/23 Patient evaluated on the medical floor, continues on oxygen support. Antibiotics in the form of zosyn and systemic steroids. He continues to have cough with sputum. Pulmonary following, patient will undergo bronchoscopy and lavage tomorrow. Blood culture remains negative. Patient does have history of pseud omonas and nadira in the sputum. He is maintained on inhaled tobramycin every other day for the recurrent pseudomonas infection. No new labs from today. Review of Systems Constitutional: Denied any fatigue denied any fever. Cardio vascular: denied any chest pain, palpitations Gastrointestinal: denied any nausea, vomiting, diarrhea Pulmonary: Denied any shortness of breath Reports cough Neurologic denied any new focal deficits All inpatient medications were reviewed and appropriate changes in these medications as dictated in the interval history and assessment and plan. PHYSICAL EXAMINATION: GENERAL: The patient is alert and oriented x3, not in any acute distress. Well developed, well nourished. HEENT: Pupils are round and equally reacting to light. EOMI. No scleral icterus. No conjunctival pallor. Normocephalic, atraumatic. No pharyngeal erythema. No thyromegaly. CARDIOVASCULAR: S1 and S2 present. No murmurs, rubs, or gallops. PULMONARY: Chest is clear to auscultation, no wheezing or crackles. ABDOMEN: Soft, nontender, nondistended, normoactive bowel sounds. No palpable organomegaly. MUSCULOSKELETAL: No joint swelling or deformity. EXTREMITIES: No cyanosis, clubbing, or pedal edema. NEUROLOGICAL: Gross neurological examination did not reveal any focal deficits. SKIN: No rashes. Assessment and Plan -Acute on chronic hypoxic respiratory failure due to acute tracheobronchitis continue on oxygen via nasal cannula. systemic steroids. -Acute exacerbation COPD; Solu-Medrol 60 mg IV every 6 hours; DuoNeb nebulizer treatments 4 times a day and when necessary; continue home dose of Singulair 10 mg daily. Currently on IV zosyn, blood culture remains negative patient to undergo bronchoscopy and BAL tomorrow pulmonary following closely. -Small to moderate bilateral pleural effusions most recent echo in Dec 2022 showing normal LV function patient is resumed on home lasix. -Acute on chronic kidney disease stage III; slow IV fluid hydration; monitor strict PILAR's, daily weights, renal function and electrolytes; avoid nephrotoxins and hypotension; continue Lokelma 10 g by mouth daily -Hypertension; Cardura 4 mg daily; metoprolol 25 mg twice a day -History of factor V Leyden deficiency/DVT; currently not on any anticoagulation therapy -Obstructive sleep apnea -Non healing ulceration abdomen since surgery in November continue with local wound care with collagen and change BID. Follow up at wound center on discharge. -Known right upper lobe pulmonary nodule treated outpatient and most recent PET scan showing no suspicious uptake. Pulmonary following. DVT prophylaxis; SCDs/subcu heparin CODE STATUS; full code recommend to repeat labs in AM, Continue current medications and supportive care. Pulmonary following closely. The impression and plan of care has been dictated by Cathy Terry Nurse Practitioner as directed. Dr. Marisol MD I have performed a history and physical examination and medical decision making of this patient, discussed the same with the dictator, and agree with the dictators assessment and plan as written, documented as a scribe. Based on total visit time, I have performed more than 50% of this visit. Objective - Vital Signs Vital signs: Vital Signs Temp 97.9 F 02/16/23 15:00 Pulse 70 02/16/23 15:00 Resp 16 02/16/23 15:00 BP 140/64 02/16/23 15:00 Pulse Ox 98 02/16/23 15:00 FiO2 Intake & Output 02/15/23 02/16/23 02/16/23 18:59 06:59 18:59 Intake Total 180 Output Total 500 Balance 180 -500 Intake: Oral 180 Output: Urine 500 Other: Voiding Method Toilet Toilet # Voids 3 2 2 # Bowel Movements 1 - Labs CBC & Chem 7: 02/14/23 09:41 02/14/23 09:41 Labs: Microbiology - Last 24 Hours (Table) 02/14/23 10:17 Blood Culture - Preliminary Blood 02/14/23 10:17 Blood Culture - Preliminary Blood Assessment and Plan Time with Patient: Less than 30
[2023-02-17] MEDS ORDERED: LIDOCAINE 1% (10MG/ML) FOR IV START INTRADERMA PRN (07:09)
[2023-02-17] MEDS: FUROSEMIDE 20 MG TAB PO SCH (08:56)
[2023-02-17] MEDS: LACTATED RINGERS 1,000 ML IV SCH (08:57)
[2023-02-17 11:09] LABS: Basophils # (A) 0 X 10*3/uL (0.00-0.10); Basophils % (A) 0 %; Eosinophils # (A) 0 X 10*3/uL (0.04-0.35); Eosinophils % (A) 0 %; HCT 32.4 % (39.6-50.0); HGB 10.3 g/dL (13.0-17.0); Lymphocytes % (A) 3.8 %; MCH 30.4 pg (27.0-32.0); MCHC 31.8 g/dL (32.0-37.0); MCV 95.6 FL (80.0-97.0); Mean Platelet Volume 11.5 FL (9.5-12.2); Monocytes # (A) 0.14 X 10*3/uL (0.20-1.00); Monocytes % (A) 1.3 %; NRBC Per 100 WBC 0 X 10*3/uL (0.00-0.01); Neutrophils # (A) 9.97 X 10*3/uL (1.80-7.70); Neutrophils % (A) 94.6 %; Platelet Count 269 X 10*3/uL (140-440); RBC 3.39 X 10*6/uL (4.40-5.60); RDW 15.4 % (11.5-14.5); WBC 10.54 X 10*3/uL (4.50-10.00)
[2023-02-17 11:35] LABS: BUN/Creat Ratio 35.33 Ratio (12.00-20.00); Blood Urea Nitrogen 63.6 mg/dL (9.0-27.0); Calcium 8.9 mg/dL (8.7-10.3); Chloride 102 mmol/L (96-109); Glucose 160 mg/dL (70-110); Potassium 3.5 mmol/L (3.5-5.5); Sodium 141 mmol/L (135-145)
[2023-02-17] MEDS: LIDOCAINE 2% INJ 20 MG/ML INTRATRACH ONE ×2 (12:24→12:52)
[2023-02-17] MEDS: SODIUM CHLORIDE 0.9% 500 ML 500 ML IV ONE (12:30)
[2023-02-17] MEDS ORDERED: MIDAZOLAM 2 MG/2 ML VIAL ONE (12:31)
[2023-02-17] MEDS ORDERED: KETAMINE HCL IN 0.9 % NACL 50 MG/5 ML SYRINGE ONE (12:31)
[2023-02-17] MEDS ORDERED: GLYCOPYRROLATE 0.2 MG/ML 2 ML VIAL ONE (12:31)
[2023-02-17] MEDS ORDERED: PROPOFOL 10 MG/ML 20 ML VIAL IV ONE (12:31)
--- NOTE | 2023-02-17 14:00 | P.PN ---
Subjective Progress Note Date: 02/17/23 77-year-old male patient with known history of COPD, previous history of a lung mass treated by SBR T and previous history of a renal mass treated by cryotherapy, presented to the hospital because of worsening shortness of breath, cough and sputum production. His oxygen requirements have also increased and for that reason the patient decided to come into the hospital. No fever. No chills. No swelling in lower extremities. He has been maintained on Trelegy Ellipta on outpatient basis, he uses albuterol and ipratropium the blood she was on the clock. He is known to have chronic colonization with pseudomonas aeruginosa and the patient uses inhaled tobramycin every other month. The most recent bronchoscopy and bronchial lavage was done on 01/07/2023 and the patient was found to have Jaimie and his sputum and the bronchial alveolar lavage. On 12/24/2022, sputum sample was positive for pseudomonas aeruginosa. His echoes at 8.2, hemoglobin 11.3, normal coagulation profile, BUN is 48 and a creatinine is at 1.43 and the patient has chronic stage III kidney disease with a sodium level of 141. The viral screen was negative. The chest x-ray showing a right upper lobe opacity which is known from previous evaluations. Patient also has small to moderate-sized bilateral pleural effusion. LFTs are within normal limits. The most recent CAT scan of the chest abdomen and pelvis showed small bilateral pleural effusions and right lower lobe pulmonary nodule that has remained stable and the patient also has an ascending aortic aneurysm measuring 4.5 cm. This was done on 12/23/2022. The most recent echocardiogram that was done on 12/21/2022 showed a normal LV, elevated RVSP, moderate tricuspid regurgitation. On today's evaluation of 02/15/2023, no new complaints. Clinically improving. Marked improvement since yesterday. No new labs are available from today other than a pro-calcitonin level that was at 0.4. The proBNP level was 2790. The patient was given Lasix yesterday. Another dose of Lasix will be given today. He did have some small bilateral pleural effusions. He is currently on IV Zosyn. He is also on steroids. The patient is seen today 02/16/2023 in follow-up on the regular medical floor. He is sitting up in bed. Awake and alert in no acute distress. Still with some loose nonproductive cough. Maintaining O2 saturations in the 90s on 3 L/m per n edgar cannula. He is afebrile. Hemodynamically stable. He is currently on Zosyn and inhaled tobramycin. Remains on bronchodilators, steroids, Mucinex. The patient is seen today 02/17/2023 in follow-up on the regular medical floor. He is up ambulating in his room. Awake and alert in no acute distress. Feeling about the same today compared to yesterday. Still with a loose nonproductive cough. No fever chills. 18 O2 saturation in the 90s on 2 L/m per nasal cannula. He's been afebrile. Hemodynamically stable. Blood cultures revealed no growth. White count 10.5. Hemoglobin 10.3. Platelets 269. Sodium 141. Potassium 3.5. Bicarb 28. BUN 64. Creatinine 1.8. Glucose 160. He remains on DuoNeb inhalations, Symbicort, Singulair, Solu-Medrol. Heparin for DVT prophylaxis. Antibiotics in the form of Zosyn. Remains on inhaled tobramycin. Plan is for bronchoscopy with BAL today. Objective - Vital Signs Vital signs: Vital Signs Temp 98 F 02/17/23 13:09 Pulse 75 02/17/23 13:31 Resp 16 02/17/23 13:31 BP 163/77 02/17/23 13:31 Pulse Ox 97 02/17/23 13:31 FiO2 Intake & Output 02/16/23 02/17/23 02/17/23 18:59 06:59 18:59 Intake Total 150 Output Total 500 Balance -500 150 Intake: IV 150 Output: Urine 500 Other: Voiding Method Toilet # Voids 2 1 # Bowel Movements 1 - Exam GENERAL EXAM: Alert, thin 77-year-old male, ambulating in his room, on 2 L O2 nasal cannula, comfortable in no apparent distress. HEAD: Normocephalic. EYES: Normal reaction of pupils, equal size. NOSE: Clear with pink turbinates. THROAT: No erythema or exudates. NECK: No masses, no JVD. CHEST: No chest wall deformity. LUNGS: Equal air entry with faint crackles in the bilateral bases. Diminished. CVS: S1 and S2 normal with no audible murmur, regular rhythm. ABDOMEN: Dressing/binder in place. No hepatosplenomegaly, normal bowel sounds, no guarding or rigidity. SPINE: No scoliosis or deformity SKIN: No rashes CENTRAL NERVOUS SYSTEM: No focal deficits, tone is normal in all 4 extremities. EXTREMITIES: There is no peripheral edema. No clubbing, no cyanosis. Peripheral pulses are intact. - Labs CBC & Chem 7: 02/17/23 06:27 02/17/23 06:27 Labs: Abnormal Lab Results - Last 24 Hours (Table) 02/17/23 02/17/23 Range/Units 06:27 06:27 WBC 10.54 H (4.50-10.00) X 10*3/uL RBC 3.39 L (4.40-5.60) X 10*6/uL Hgb 10.3 L (13.0-17.0) g/dL Hct 32.4 L (39.6-50.0) % MCHC 31.8 L (32.0-37.0) g/dL RDW 15.4 H (11.5-14.5) % Neutrophils # 9.97 H (1.80-7.70) X 10*3/uL Lymphocytes # 0.40 L (0.90-5.00) X 10*3/uL Monocytes # 0.14 L (0.20-1.00) X 10*3/uL Eosinophils # 0 L (0.04-0.35) X 10*3/uL BUN 63.6 H (9.0-27.0) mg/dL Creatinine 1.8 H (0.6-1.5) mg/dL Est GFR (CKD-EPI) 38 L (>=60) BUN/Creatinine Ratio 35.33 H (12.00-20.00) Ratio Glucose 160 H (70-110) mg/dL Microbiology - Last 24 Hours (Table) 02/14/23 10:17 Blood Culture - Preliminary Blood 02/14/23 10:17 Blood Culture - Preliminary Blood Assessment and Plan Assessment: Acute on chronic dyspnea with development of an acute hypoxic respiratory failure currently on 2 L of oxygen by nasal cannula. Consider COPD exacerbation in addition to recurrent tracheobronchitis with pseudomonas aeruginosa. The vital screening was negative. Chest x-ray showing also some interval worsening in the bilateral pleural effusions. Plan is for bronchoscopy today 02/17/2023. 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 Chronic stage III kidney disease Tracheobronchomalacia, confirmed by previous bronchoscopies History of infected 5 Leyden Hypertension History of renal mass treated by cryotherapy Previous history of a DVT of the left lower extremity Hypertension Obstructive sleep apnea Diverticulosis with previous diverticulitis History of colonic perforation requiring colectomy and colostomy Plan The patient was seen and evaluated Medications and labs reviewed We'll plan for bronchoscopy with BAL today Continue Zosyn and inhaled tobramycin Continue bronchodilators, steroids Titrate the FiO2 as tolerated Increase his activity as tolerated We'll continue to follow I have personally seen and examined the patient, performed the documentation and the assessment and plan as written. Number of minutes spent on the visit: 10.
--- NOTE | 2023-02-17 19:28 | OP ---
OPERATIVE REPORT DATE OF SERVICE : PROCEDURES PERFORMED: Bronchoscopy, and bronchoalveolar lavage of different lobes including right lower lobe, right upper lobe, right middle lobe, left upper lobe, lingula, and left lower lobe. PREOPERATIVE DIAGNOSES: Recurrent pneumonia secondary to polymicrobial infection, acute exacerbation of chronic obstructive pulmonary disease, and recurrent pseudomonal infection, tracheomalacia, and difficulty clearing secretions. POSTOPERATIVE DIAGNOSES: Tracheomalacia, multiple broncholiths noted in the airways, and bilateral purulent secretions in airways. ANESTHESIA USED: IV conscious sedation. DESCRIPTION OF PROCEDURE: The patient was prepared according to the bronchoscopy protocol. He was brought into the bronchoscopy suite, O2 was applied via Ventimask. At the same time, we monitored his O2 saturation, blood pressure was intermittently monitored, and cardiac rhythm was monitored. After adequate IV conscious sedation, the bronchoscope was inserted through a bite block, which was applied prior to the procedure, and the bronchoscope was advanced further down to the airway to the vocal cords. Lidocaine was applied over the vocal cords, and the bronchoscope was advanced further down into the trachea. Trachea was noted to be abnormal, there was clearly evidence of severe tracheomalacia. As we entered the right mainstem bronchus, there was significant purulent secretions filling up the whole right mainstem bronchus, and similar findings were noted in the left mainstem bronchus. Then, using saline, I was able to suction all the purulent secretions, and bronchoalveolar lavage was done of the right lower lobe, right middle lobe, and right upper lobe. I then moved to the left side, the same was done on the left side, bronchoalveolar lavage was done of the left upper lobe, lingula, and left lower lobe. Again, there was evidence of thick purulent secretions, which was suctioned and completely cleared his airways. Further examination of the airways clearly showed evidence of a broncholith mostly in the left side involving the left lower lobe and lingula, and these were similar findings compared to previous bronchoscopy findings. No endobronchial biopsies were done. Procedure was well tolerated, and the fluid obtained from the airways which was random BAL, was sent for cultures. Again, no complications. Procedure was well tolerated. MMODL / IJN: [id number] /
[2023-02-17 19:56] VITALS: RESP 18
--- NOTE | 2023-02-17 21:18 | P.PN ---
Subjective Progress Note Date: 02/17/23 Patient evaluated on the medical floor, continues on oxygen support. Antibiotics in the form of zosyn and systemic steroids. He continues to have cough with sputum. Pulmonary following, patient will undergo bronchoscopy and lavage tomorrow. Blood culture remains negative. Patient does have history of pseud omonas and nadira in the sputum. He is maintained on inhaled tobramycin every other day for the recurrent pseudomonas infection. No new labs from today. 02/17/2023 Patient evaluated today ambulating in room. He reports he is less short of breath. States he brought in a sputum sample on Thursday and frustrated the lab "lost his sample". The most recent sputum sample from january shows nadira. He is maintained on inhaled tobramycin for history of pseudomonas in the sputum. He will under bronchoscopy and BAL today revealing tick purulent secretions throughout and tracheomalacia. Chest xray on admission does reveal pleural effusions. Patient does not appear to be volume overloaded. His creatinine up to 1.8 today. we will hold off on resuming his home lasix and repeat labs in the AM. He continues on course of systemic steroids, IV zosyn. Review of Systems Constitutional: Denied any fatigue denied any fever. Cardio vascular: denied any chest pain, palpitations Gastrointestinal: denied any nausea, vomiting, diarrhea Pulmonary: Denied any shortness of breath Reports cough Neurologic denied any new focal deficits All inpatient medications were reviewed and appropriate changes in these medications as dictated in the interval history and assessment and plan. PHYSICAL EXAMINATION: GENERAL: The patient is alert and oriented x3, not in any acute distress. Well developed, well nourished. HEENT: Pupils are round and equally reacting to light. EOMI. No scleral icterus. No conjunctival pallor. Normocephalic, atraumatic. No pharyngeal erythema. No thyromegaly. CARDIOVASCULAR: S1 and S2 present. No murmurs, rubs, or gallops. PULMONARY: Chest is clear to auscultation, no wheezing or crackles. ABDOMEN: Soft, nontender, nondistended, normoactive bowel sounds. No palpable organomegaly. MUSCULOSKELETAL: No joint swelling or deformity. EXTREMITIES: No cyanosis, clubbing, or pedal edema. NEUROLOGICAL: Gross neurological examination did not reveal any focal deficits. SKIN: No rashes. Assessment and Plan -Acute on chronic hypoxic respiratory failure due to acute tracheobronchitis continue on oxygen via nasal cannula. systemic steroids. Bronchoscopy reveals thick secretions throughout the lung which were suctioned and sent for cultures. -Acute exacerbation COPD; Solu-Medrol 60 mg IV every 6 hours; DuoNeb nebulizer treatments 4 times a day and when necessary; continue home dose of Singulair 10 mg daily. Currently on IV zosyn, blood culture remains negative Patient has history of pseudomonas in the sputum. -Small to moderate bilateral pleural effusions most recent echo in Dec 2022 showing normal LV function patient is resumed on home lasix. -Acute on chronic kidney disease stage III; slow IV fluid hydration; monitor strict PILAR's, daily weights, renal function and electrolytes; avoid nephrotoxins and hypotension; continue Lokelma 10 g by mouth daily -Hypertension; Cardura 4 mg daily; metoprolol 25 mg twice a day -History of factor V Leyden deficiency/DVT; currently not on any anticoagulation therapy -Obstructive sleep apnea -Non healing ulceration abdomen since surgery in November continue with local wound care with collagen and change BID. Follow up at wound center on discharge. -Known right upper lobe pulmonary nodule treated outpatient and most recent PET scan showing no suspicious uptake. Pulmonary following. DVT prophylaxis; SCDs/subcu heparin CODE STATUS; full code recommend to repeat labs in AM, Continue current medications and supportive care. Pulmonary following closely. The impression and plan of care has been dictated by Cathy Terry, Nurse Practitioner as directed. Dr. Marisol MD I have performed a history and physical examination and medical decision making of this patient, discussed the same with the dictator, and agree with the dictators assessment and plan as written, documented as a scribe. Based on total visit time, I have performed more than 50% of this visit. Objective - Vital Signs Vital signs: Vital Signs Temp 97.6 F 02/17/23 08:35 Pulse 68 02/17/23 09:16 Resp 16 02/17/23 08:35 BP 160/76 02/17/23 08:35 Pulse Ox 98 02/17/23 08:35 FiO2 Intake & Output 02/16/23 02/17/23 02/17/23 18:59 06:59 18:59 Output Total 500 Balance -500 Output: Urine 500 Other: Voiding Method Toilet # Voids 2 1 # Bowel Movements 1 - Labs CBC & Chem 7: 02/17/23 06:27 02/17/23 06:27 Labs: Microbiology - Last 24 Hours (Table) 02/14/23 10:17 Blood Culture - Preliminary Blood 02/14/23 10:17 Blood Culture - Preliminary Blood Assessment and Plan Time with Patient: Less than 30
[2023-02-18] MEDS: predniSONE 20 MG TAB PO SCH (08:36)
[2023-02-18 10:39] VITALS: BP 153/61; TEMP 98.1
[2023-02-18 11:17] LABS: BUN/Creat Ratio 34.53 Ratio (12.00-20.00); Blood Urea Nitrogen 65.6 mg/dL (9.0-27.0); Calcium 8.7 mg/dL (8.7-10.3); Carbon Dioxide 27.5 mmol/L (21.6-31.8); Chloride 103 mmol/L (96-109); Glucose 173 mg/dL (70-110); Potassium 3.7 mmol/L (3.5-5.5); Sodium 143 mmol/L (135-145)
--- NOTE | 2023-02-18 12:54 | P.PN ---
Subjective Progress Note Date: 02/18/23 77-year-old male patient with known history of COPD, previous history of a lung mass treated by SBR T and previous history of a renal mass treated by cryotherapy, presented to the hospital because of worsening shortness of breath, cough and sputum production. His oxygen requirements have also increased and for that reason the patient decided to come into the hospital. No fever. No chills. No swelling in lower extremities. He has been maintained on Trelegy Ellipta on outpatient basis, he uses albuterol and ipratropium the blood she was on the clock. He is known to have chronic colonization with pseudomonas aeruginosa and the patient uses inhaled tobramycin every other month. The most recent bronchoscopy and bronchial lavage was done on 01/07/2023 and the patient was found to have Jaimie and his sputum and the bronchial alveolar lavage. On 12/24/2022, sputum sample was positive for pseudomonas aeruginosa. His echoes at 8.2, hemoglobin 11.3, normal coagulation profile, BUN is 48 and a creatinine is at 1.43 and the patient has chronic stage III kidney disease with a sodium level of 141. The viral screen was negative. The chest x-ray showing a right upper lobe opacity which is known from previous evaluations. Patient also has small to moderate-sized bilateral pleural effusion. LFTs are within normal limits. The most recent CAT scan of the chest abdomen and pelvis showed small bilateral pleural effusions and right lower lobe pulmonary nodule that has remained stable and the patient also has an ascending aortic aneurysm measuring 4.5 cm. This was done on 12/23/2022. The most recent echocardiogram that was done on 12/21/2022 showed a normal LV, elevated RVSP, moderate tricuspid regurgitation. On today's evaluation of 02/15/2023, no new complaints. Clinically improving. Marked improvement since yesterday. No new labs are available from today other than a pro-calcitonin level that was at 0.4. The proBNP level was 2790. The patient was given Lasix yesterday. Another dose of Lasix will be given today. He did have some small bilateral pleural effusions. He is currently on IV Zosyn. He is also on steroids. The patient is seen today 02/16/2023 in follow-up on the regular medical floor. He is sitting up in bed. Awake and alert in no acute distress. Still with some loose nonproductive cough. Maintaining O2 saturations in the 90s on 3 L/m per n edgar cannula. He is afebrile. Hemodynamically stable. He is currently on Zosyn and inhaled tobramycin. Remains on bronchodilators, steroids, Mucinex. The patient is seen today 02/17/2023 in follow-up on the regular medical floor. He is up ambulating in his room. Awake and alert in no acute distress. Feeling about the same today compared to yesterday. Still with a loose nonproductive cough. No fever chills. 18 O2 saturation in the 90s on 2 L/m per nasal cannula. He's been afebrile. Hemodynamically stable. Blood cultures revealed no growth. White count 10.5. Hemoglobin 10.3. Platelets 269. Sodium 141. Potassium 3.5. Bicarb 28. BUN 64. Creatinine 1.8. Glucose 160. He remains on DuoNeb inhalations, Symbicort, Singulair, Solu-Medrol. Heparin for DVT prophylaxis. Antibiotics in the form of Zosyn. Remains on inhaled tobramycin. Plan is for bronchoscopy with BAL today. The patient is seen today 02/18/2023 in follow-up on the regular medical floor. He is sitting up in the bedside. Awake and alert in no acute distress. Maintaining O2 saturations in the 90s on 2 L/m per nasal cannula. Feeling back to his baseline. He's been up ambulating in the hallway. No worsening shortness of breath, cough or congestion. Feeling much better after the bronchoscopy. Cultures and cytology pending. Sodium 143. Potassium 3.7. Bicarb 27. BUN 65. Creatinine 1.9. Glucose 173. He remains on DuoNeb inhalations, Symbicort, Singulair, Solu-Medrol. Antibiotics in the form of Zosyn. Remains on inhaled tobramycin. Heparin for DVT prophylaxis. Objective - Vital Signs Vital signs: Vital Signs Temp 98.1 F 02/18/23 08:00 Pulse 72 02/18/23 08:42 Resp 18 02/18/23 08:00 BP 153/61 02/18/23 08:00 Pulse Ox 98 02/18/23 10:30 FiO2 Intake & Output 02/17/23 02/18/23 02/18/23 18:59 06:59 18:59 Intake Total 268 Balance 268 Intake: IV 150 Oral 118 Other: Voiding Method Toilet # Voids 3 2 - Exam GENERAL EXAM: Alert, thin 77-year-old male, on 2 L O2 nasal cannula, comfortable in no apparent distress. HEAD: Normocephalic. EYES: Normal reaction of pupils, equal size. NOSE: Clear with pink turbinates. THROAT: No erythema or exudates. NECK: No masses, no JVD. CHEST: No chest wall deformity. LUNGS: Equal air entry with faint crackles in the bilateral bases. Diminished. CVS: S1 and S2 normal with no audible murmur, regular rhythm. ABDOMEN: Dressing/binder in place. No hepatosplenomegaly, normal bowel sounds, no guarding or rigidity. SPINE: No scoliosis or deformity SKIN: No rashes CENTRAL NERVOUS SYSTEM: No focal deficits, tone is normal in all 4 extremities. EXTREMITIES: There is no peripheral edema. No clubbing, no cyanosis. Peripheral pulses are intact. - Labs CBC & Chem 7: 02/17/23 06:27 02/18/23 05:41 Labs: Abnormal Lab Results - Last 24 Hours (Table) 02/18/23 Range/Units 05:41 Anion Gap 12.50 H (4.00-12.00) mmol/L BUN 65.6 H (9.0-27.0) mg/dL Creatinine 1.9 H (0.6-1.5) mg/dL Est GFR (CKD-EPI) 35 L (>=60) BUN/Creatinine Ratio 34.53 H (12.00-20.00) Ratio Glucose 173 H (70-110) mg/dL Microbiology - Last 24 Hours (Table) 02/14/23 10:17 Blood Culture - Preliminary Blood 02/14/23 10:17 Blood Culture - Preliminary Blood Assessment and Plan Assessment: Acute on chronic dyspnea with development of an acute hypoxic respiratory failure currently on 2 L of oxygen by nasal cannula. Consider COPD exacerbation in addition to recurrent tracheobronchitis with pseudomonas aeruginosa. The vital screening was negative. Chest x-ray showing also some interval worsening in the bilateral pleural effusions. Bronchoscopy done 02/17/2023. 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 Chronic stage III kidney disease Tracheobronchomalacia, confirmed by previous bronchoscopies History of infected 5 Leyden Hypertension History of renal mass treated by cryotherapy Previous history of a DVT of the left lower extremity Hypertension Obstructive sleep apnea Diverticulosis with previous diverticulitis History of colonic perforation requiring colectomy and colostomy Plan The patient was seen and evaluated Medications and labs reviewed Feeling back to his baseline Cleared for discharge from the pulmonary standpoint Continue his home pulmonary medications, oxygen Complete a prednisone taper Complete a course of antibiotics Follow up in our office in 1 week I have personally seen and examined the patient, performed the documentation and the assessment and plan as written. Number of minutes spent on the visit: 10.
[2023-02-18 13:41] VITALS: PULSE 70
--- NOTE | 2023-02-21 15:56 | P.DS ---
Providers Date of admission: 02/16/23 14:32 Attending physician: Sloan Chen Consults: 02/14/23 11:26 Consult Physician Routine Consulting Provider: Ramona Cortez Consult Reason/Comments: COPD, PNA Do you want consulting provider notified?: Yes Primary care physician: Madi Sanz [facility] Course: Final Diagnosis -Acute on chronic hypoxic respiratory failure due to acute tracheobronchitis continue on oxygen via nasal cannula. systemic steroids. Bronchoscopy reveals thick secretions throughout the lung. -Acute exacerbation COPD -Small to moderate bilateral pleural effusions most recent echo in Dec 2022 showing normal LV function patient is resumed on home lasix. -Acute on chronic kidney disease stage III -Hypertension -History of factor V Leyden deficiency/DVT; currently not on any anticoagulation therapy -Obstructive sleep apnea -Non healing ulceration abdomen since surgery in November continue with local wound care with collagen and change BID. Follow up at wound center on discharge. -Known right upper lobe pulmonary nodule treated outpatient and most recent PET scan showing no suspicious uptake. Pulmonary following. Discharge Disposition Patient is stable for discharge with overall guarded prognosis. Patient will continue on home oxygen. Pateint to continue on same home medications as well as oral steroid taper. He will follow up with machine former Dr. Cortez and has an appt scheduled for Thursday02/24/23. Per wound consultation for the abdomen patient to Apply collagen, saline moistened gauze and border foam. Change twice a week. Patient will continue with home care for dressing needs. He is given scrips to repeat labs in 2 to 3 days. Hospital Course This is a 77 year old male patient with history of hypertension, DVT, COPD presenting with increased dyspnea, productive cough. Patient also has history of pseudomonas on the sputum and is maintained on inhaled tobramycin. Patient has history of COPD and wears oxygen at night only. He states over the past several days he's had increased oxygen requirements and has been wearing his oxygen throughout the day for hypoxia and increased dyspnea. He reports productive cough of yellow sputum. No fever. No chest pain. No lower extremity pain or swelling. Had a creatinine of 1.43 on admission. Was admitted to the hospital under medicine with pulmonary consultation. He was also seen by wound care diony atwood back in November and has a open ulceration since that time. Patient has been utilizing collagen and an occlusive dressing with the help of the nursing. The viral screen was negative. His procalcitonin level was 0.49. The chest x-ray showing a right upper lobe opacity which is known from previous evaluations. Patient also has small to moderate-sized bilateral pleural effusion. He was luís [place] with IV zosyn, IV lasix, and IV steroids. He underwent bronchoscopy with Dr. Howard with BAL and cultures sent from the deep suctioning. Patient was evaluated post op day 1 and ambulating in the room. No chest pain, no shortness of breath. His lungs are diminished and clear. Pulmonary clearing for discharge home and will follow the cultures outpatient. Please see medication reconciliation for a list of current medication. Thank you for allowing us to participate in the care of this patient. The impression and plan of care has been dictated by Nurse Karla Trotter ctitioner as directed. Dr. Marisol MD I have performed a history and physical examination and medical decision making of this patient, discussed the same with the dictator, and agree with the dictat ors assessment and plan as written, documented as a scribe. Based on total visit time, I have performed more than 50% of this visit. Patient Condition at Discharge: Fair Plan - Discharge Summary Discharge Rx Participant: No New Discharge Prescriptions: New methylPREDNISolone Dose Pack [Medrol Dose Pack] 4 mg PO DIRECTED #21 tab predniSONE [Deltasone] 40 mg PO DAILY 4 Days #16 tab Continue Montelukast Sodium [Singulair] 10 mg PO HS Metoprolol Tartrate [Lopressor] 25 mg PO BID L.acidoph,Paracasei, B.lactis [Probiotic] 1 cap PO DAILY allopurinoL [Zyloprim] 100 mg PO HS Albuterol Sulfate [Ventolin HFA] 2 puff INHALATION RT-QID PRN PRN Reason: Shortness Of Breath Cyanocobalamin (Vitamin B-12) [Vitamin B-12] 1,000 mcg PO DAILY Sodium Bicarbonate Tab 650 mg PO BID #60 tab Famotidine [Pepcid] 20 mg PO DAILY Folic Acid 1 mg PO DAILY Sodium Zirconium Cyclosilicate [Lokelma] 10 gm PO DAILY@1400 Magnesium Oxide [Mag-Ox] 400 mg PO BID 30 Days #60 tab polyethylene glycoL 3350 [Miralax] 17 gm PO DAILY Doxazosin [Cardura] 4 mg PO HS Ipratropium-Albuterol Nebulize [Duoneb 0.5 mg-3 mg/3 ml Soln] 3 ml INHALATION RT-QID #120 each Furosemide [Lasix] 20 mg PO Q2D Fluticasone/Umeclidin/Vilanter [Trelegy Ellipta 100-62.5-25] 1 puff INHALATION RT-DAILY ALPRAZolam [Xanax] 0.5 mg PO HS Cetirizine HCl [Zyrtec] 10 mg PO DAILY guaiFENesin [guaiFENesin ER] 600 mg PO BID Cholecalciferol [Vitamin D3 (25 Mcg = 1000 Iu)] 50 mcg PO DAILY Aspirin EC [Ecotrin Low Dose] 81 mg PO DAILY Tobramycin [Tobramycin Nebules] 300 mg IH Q48H #15 each Discontinued Budesonide 0.5 mg INHALATION RT-BID Discharge Medication List Montelukast Sodium [Singulair] 10 mg PO HS 01/24/14 [History] Metoprolol Tartrate [Lopressor] 25 mg PO BID 07/25/16 [History] L.acidoph,Paracasei, B.lactis [Probiotic] 1 cap PO DAILY 09/01/18 [History] allopurinoL [Zyloprim] 100 mg PO HS 11/21/19 [History] Albuterol Sulfate [Ventolin HFA] 2 puff INHALATION RT-QID PRN 10/21/21 [History] Fluticasone/Umeclidin/Vilanter [Trelegy Ellipta 100-62.5-25] 1 puff INHALATION RT-DAILY 10/21/21 [History] Cyanocobalamin (Vitamin B-12) [Vitamin B-12] 1,000 mcg PO DAILY 07/02/22 [History] Sodium Bicarbonate Tab 650 mg PO BID #60 tab 07/04/22 [Rx] Famotidine [Pepcid] 20 mg PO DAILY 07/11/22 [History] ALPRAZolam [Xanax] 0.5 mg PO HS 11/06/22 [History] Cetirizine HCl [Zyrtec] 10 mg PO DAILY 11/06/22 [History] Folic Acid 1 mg PO DAILY 11/06/22 [History] Sodium Zirconium Cyclosilicate [Lokelma] 10 gm PO DAILY@1400 11/06/22 [History] guaiFENesin [guaiFENesin ER] 600 mg PO BID 11/06/22 [History] Magnesium Oxide [Mag-Ox] 400 mg PO BID 30 Days #60 tab 11/10/22 [Rx] Aspirin EC [Ecotrin Low Dose] 81 mg PO DAILY 12/20/22 [History] Cholecalciferol [Vitamin D3 (25 Mcg = 1000 Iu)] 50 mcg PO DAILY 12/20/22 [History] Doxazosin [Cardura] 4 mg PO HS 12/20/22 [History] polyethylene glycoL 3350 [Miralax] 17 gm PO DAILY 12/20/22 [History] Ipratropium-Albuterol Nebulize [Duoneb 0.5 mg-3 mg/3 ml Soln] 3 ml INHALATION RT-QID #120 each 12/25/22 [Rx] Tobramycin [Tobramycin Nebules] 300 mg IH Q48H #15 each 12/26/22 [Rx] Furosemide [Lasix] 20 mg PO Q2D 01/05/23 [History] methylPREDNISolone Dose Pack [Medrol Dose Pack] 4 mg PO DIRECTED #21 tab 02/18/23 [Rx] predniSONE [Deltasone] 40 mg PO DAILY 4 Days #16 tab 02/18/23 [Rx] Follow up Appointment(s)/Referral(s): Madi Munguia MD [Primary Care Provider] - 1-2 days (Office will call with appointment time and date) Ramona Cortez MD [STAFF PHYSICIAN] - 02/24/23 10:15 am Ambulatory/Diagnostic Orders: Basic Metabolic Panel [LAB.AMB] Location: None Selected Complete Blood Count w/diff [LAB.AMB] Time Frame: 3 Days, Location: None Selected Patient Instructions/Handouts: *Surgery [facility] - Bronchoscopy Discharge Instructions, COPD (Chronic Obstructive Pulmonary Disease) (DC) Activity/Diet/Wound Care/Special Instructions: bronchoscopy completed 02/17/2023 abdominal wound care: cleanse with saline, Collagen moistened to area, skin prep then optifoam. 2x/week. Last changed 02/17/23 Discharge Disposition: HOME SELF-CARE
== END 2023-02-18 14:20 | disposition home health service (06) | DRG 190 ==
LOC: EC 09:13 → 6NMEDSUR 11:26 → OBSVTOIN 02-16 14:32
PROVIDERS: ADMIT Hospitalist; ATTEND Hospitalist
PROC: 0B9G8ZX Drainage of Left Upper Lung Lobe, Via Natural or Artificial Opening Endoscopic, Diagnostic (ICD-10-PCS; 2023-02-17)
PROC: 0B9D8ZX Drainage of Right Middle Lung Lobe, Via Natural or Artificial Opening Endoscopic, Diagnostic (ICD-10-PCS; 2023-02-17)
PROC: 0B9H8ZX Drainage of Lung Lingula, Via Natural or Artificial Opening Endoscopic, Diagnostic (ICD-10-PCS; 2023-02-17)
PROC: 0B9F8ZX Drainage of Right Lower Lung Lobe, Via Natural or Artificial Opening Endoscopic, Diagnostic (ICD-10-PCS; 2023-02-17)
PROC: 0B9J8ZX Drainage of Left Lower Lung Lobe, Via Natural or Artificial Opening Endoscopic, Diagnostic (ICD-10-PCS; principal; 2023-02-17 07:30)
PROC: 0B9C8ZX Drainage of Right Upper Lung Lobe, Via Natural or Artificial Opening Endoscopic, Diagnostic (ICD-10-PCS; 2023-02-17 07:30)
DX: J44.1 Chronic obstructive pulmonary disease with (acute) exacerbation (principal); J15.1 Pneumonia due to Pseudomonas; J96.21 Acute and chronic respiratory failure with hypoxia; D68.51 Activated protein C resistance; J44.0 Chronic obstructive pulmonary disease with (acute) lower respiratory infection; J39.8 Other specified diseases of upper respiratory tract; J98.09 Other diseases of bronchus, not elsewhere classified; I71.21 Aneurysm of the ascending aorta, without rupture; I12.9 Hypertensive chronic kidney disease with stage 1 through stage 4 chronic kidney disease, or unspecified chronic kidney disease; I07.1 Rheumatic tricuspid insufficiency; N18.30 Chronic kidney disease, stage 3 unspecified; L98.491 Non-pressure chronic ulcer of skin of other sites limited to breakdown of skin; G47.33 Obstructive sleep apnea (adult) (pediatric); B96.5 Pseudomonas (aeruginosa) (mallei) (pseudomallei) as the cause of diseases classified elsewhere; R91.1 Solitary pulmonary nodule; I44.0 Atrioventricular block, first degree; I45.10 Unspecified right bundle-branch block; J20.8 Acute bronchitis due to other specified organisms; K57.90 Diverticulosis of intestine, part unspecified, without perforation or abscess without bleeding; Z87.891 Personal history of nicotine dependence; Z11.52 Encounter for screening for COVID-19; Z87.448 Personal history of other diseases of urinary system; Z87.19 Personal history of other diseases of the digestive system; Z87.01 Personal history of pneumonia (recurrent); Z79.899 Other long term (current) drug therapy; Z90.49 Acquired absence of other specified parts of digestive tract; Z86.19 Personal history of other infectious and parasitic diseases; Z79.51 Long term (current) use of inhaled steroids; Z79.82 Long term (current) use of aspirin; Z85.118 Personal history of other malignant neoplasm of bronchus and lung; Z86.14 Personal history of Methicillin resistant Staphylococcus aureus infection; Z88.1 Allergy status to other antibiotic agents; Z91.048 Other nonmedicinal substance allergy status; Z91.041 Radiographic dye allergy status; Z91.030 Bee allergy status; Z86.718 Personal history of other venous thrombosis and embolism
CPT/HCPCS: 31624; 31645; 36415; 71046; 80048; 80053; 83605; 83735; 83880; 84145; 84484; 85025; 85610; 85730; 87040; 87070; 87077; 87186; 87205; 87636; 93005; 94640; 94760; 96365; 96367; 96375; 96376; 99285

== ENCOUNTER → 2023-03-10 | Outpatient (CLI) | payer MEDICARE, BC | END | disposition home or self-care (01) | LOC: LABPRL 11:39 | PROVIDERS: ATTEND Internal Medicine Critical Care Medicine | DX: A49.02 Methicillin resistant Staphylococcus aureus infection, unspecified site (principal); J02.9 Acute pharyngitis, unspecified; R05.9 Cough, unspecified | CPT/HCPCS: 87070; 87205 ==

== ENCOUNTER 2023-05-01 11:18 | Day surgery (SDC) | payer MEDICARE, BC ==
[2023-04-30 10:36] VITALS: BMI 25.0
[~2023-05-01 11:18] MED LIST changes: -ALBUTEROL NEB (CONC) 2.5 MG/0.5 ML INHALATION ONE; -GLYCOPYRROLATE 0.2 MG/ML 2 ML VIAL ONE; -KETAMINE 10 MG/ML 20 ML VIAL ONE; -LIDOCAINE 1% 20 ML VIAL (10MG/ML) FOR IV START INTRADERMA PRN; -LIDOCAINE 1% INJ 10MG/ML (20 ML MDV) ONE; -LIDOCAINE 2% (PF) 20 MG/ML 2 ML VIAL MISCELLANE ONE; -LIDOCAINE 2% (PF) 20 MG/ML 5 ML VIAL INHALATION ONE; -LIDOCAINE VISCOUS 300 MG/15 ML CUP MUCOUS MEM ONE; -MIDAZOLAM 2 MG/2 ML VIAL ONE; -PROPOFOL 10 MG/ML 20 ML VIAL IV ONE; -SODIUM CHLORIDE 0.9% 1,000 ML IV SCH
[2023-05-01] MEDS: LACTATED RINGERS 1,000 ML IV SCH (11:42)
[2023-05-01 11:56] LABS: Glucose,Whole Blood 89 mg/dL (70-110)
[2023-05-01] MEDS: LIDOCAINE 2% GLYDO JELLY 6 ML APPL TOPICAL ONE ×2 (11:56→12:15)
[2023-05-01] MEDS: LIDOCAINE 2% INJ 20 MG/ML INTRATRACH ONE ×2 (11:58→12:15)
[2023-05-01 12:05] VITALS: TEMP 97
[2023-05-01] MEDS ORDERED: KETAMINE HCL IN 0.9 % NACL 50 MG/5 ML SYRINGE ONE (12:19)
[2023-05-01] MEDS ORDERED: PROPOFOL 10 MG/ML 20 ML VIAL IV ONE (12:19)
[2023-05-01] MEDS ORDERED: MIDAZOLAM 2 MG/2 ML VIAL ONE (12:19)
[2023-05-01] MEDS ORDERED: LIDOCAINE 1% INJ 10MG/ML (20 ML MDV) ONE (12:19)
--- NOTE | 2023-05-01 12:41 | P.PCN ---
Date of Procedure: 05/01/23 Preoperative Diagnosis: COPD, severe tracheobronchomalacia, recurrent respiratory tract infection and pneumonias Postoperative Diagnosis: same Procedure(s) Performed: Flexible bronchoscopy ,bronchoalveolar lavage Anesthesia: MAC Surgeon: Ramona Cortez Estimated Blood Loss (ml): 0 Pathology: other Condition: stable Disposition: same day Operative Findings: Indication for the procedure is recurrent respiratory tract infections and pneumonias including MRSA and Pseudomonas, and other gram-negative bacteria This procedure was done at the endoscopy suite. The patient was placed on a 10 L of oxygen nasal cannula. After achieving adequate sedation, the flexible bronchoscope was introduced through the right nostril and was advanced into the posterior oropharynx and larynx. Examination of the upper airway showed no significant abnormalities. Epiglottis was identified. The cords including the 2 and a false vocal cords were within normal limits and normally functional. Arytenoids and the vallecula was also within normal limits. Following that, a total of 2 cc of 1% lidocaine was applied to the vocal cord and the bronchoscope was moved to the upper trachea. There was copious amount of respiratory secretions pooled in the membranous trachea specially in the lower tracheal region. More secretions were found in the lower lobes bilaterally mainly in the bilateral mainstem bronchi and the various segments of the lower lobes bilaterally. Examination reveals severe tracheobronchomalacia. Careful inspection of the airway was done and there is no secretions were cleared up. Therapeutic airway suctioning was done and respiratory secretions were essentially suctioned out without any major difficulties. The airway inspection included the bilateral mainstem bronchi, right upper lobe bronchus, right middle lobe and right lower lobe bronchus. Examination of the left side include the left upper lobe bronchus and the left lower lobe bronchus. The very scant segments on the right and 8 segments on the left were also visualized. There was diffuse mucosal inflammatory changes. Dynamic collapsibility of the airway consistent with tracheobronchomalacia throughout the airways. Lavage of the lower lobe was done and a total of 35 cc of aspirate was obtained. This will be sent for cultures. No complications. The flexible bronchoscope was removed and the patient was transferred to recovery in stable condition. Oxygen desaturations. The patient will be contacted back regarding the results of the bronchial lavage. Will make further antibiotic adjustments accordingly.
[2023-05-01 13:08] VITALS: BP 150/69; PULSE 65; RESP 16
== END 2023-05-01 13:15 | disposition home or self-care (01) ==
LOC: ORWHC2ENDO 11:18
PROVIDERS: ATTEND Internal Medicine Critical Care Medicine
DX: J44.1 Chronic obstructive pulmonary disease with (acute) exacerbation (principal)
CPT/HCPCS: 87798 ×3; 87496; 87498; 87529; 87502; 87634; 87070; 87205; 87116; 87102; 87077; 87186; 87206; 87635; 31645; 31624; J2001 ×2; J2250; J2704

== ENCOUNTER 2023-05-07 09:42 | Inpatient (IN) | payer MEDICARE, BC ==
[2023-05-07 11:21] LABS: Anisocytosis Slight; Basophils % (A) 0 %; Eosinophils # (A) 0.1 k/uL (0-0.7); Eosinophils % (A) 2 %; HCT 33.9 % (39.0-53.0); HGB 10.9 gm/dL (13.0-17.5); Hypochromasia Slight; Lymphocytes # (A) 1.1 k/uL (1.0-4.8); Lymphocytes % (A) 24 %; MCH 31.2 pg (25.0-35.0); MCV 97.3 fL (80.0-100.0); Macrocytosis Slight; Mean Platelet Volume 9.9; Monocytes # (A) 0.3 k/uL (0-1.0); Monocytes % (A) 5 %; Neutrophils # (A) 3.1 k/uL (1.3-7.7); Neutrophils % (A) 67 %; Platelet Count 184 k/uL (150-450); RBC 3.49 m/uL (4.30-5.90); RDW 16.3 % (11.5-15.5); WBC 4.6 k/uL (3.8-10.6)
[2023-05-07 11:34] LABS: ALT 21 U/L (4-49); AST 34 U/L (17-59); African American GFR (CKD) 37 (>60 ml/min/1.73 sqM); Albumin 3.8 g/dL (3.5-5.0); Alkaline Phosphatase 77 U/L (38-126); Anion Gap 5 mmol/L; Blood Urea Nitrogen 49 mg/dL (9-20); Calcium 9.1 mg/dL (8.4-10.2); Carbon Dioxide 33 mmol/L (22-30); Chloride 102 mmol/L (98-107); Glucose 92 mg/dL (74-99); Non-African American GFR(CKD) 32 (>60 ml/min/1.73 sqM); Potassium 4.3 mmol/L (3.5-5.1); Sodium 140 mmol/L (137-145); Total Bilirubin 0.8 mg/dL (0.2-1.3); Total Protein 6.4 g/dL (6.3-8.2)
--- NOTE | 2023-05-07 12:08 | ED ---
SOB HPI - General Chief Complaint: Shortness of Breath Stated Complaint: URI Time Seen by Provider: 05/07/23 09:50 Source: patient Mode of arrival: ambulatory Limitations: no limitations - History of Present Illness Initial Comments: 77-year-old male presents to the emergency department under the direction of his scalp treatment operator. Patient has recurrent pneumonia with multiple drug-resistant organisms. He had a bronc on 01 May. He was called in [facility] yesterday but got a call from his pulmonology office last night stating that he is going to the hospital. He has chronic kidney disease. States that he would be better if the patient was treated while hospitalized to watch his kidney function. Patient has been seen by Dr. Castillo and Dr. Heath. He admits to shortness of breath and cough. He has had several rounds of antibiotics through PICC line. No chest pain - Related Data Home Medications Medication Instructions Recorded Confirmed Montelukast Sodium [Singulair] 10 mg PO HS 01/24/14 05/07/23 Metoprolol Tartrate [Lopressor] 25 mg PO BID 07/25/16 05/07/23 L.acidoph,Paracasei, B.lactis 1 cap PO DAILY 09/01/18 05/07/23 [Probiotic] allopurinoL [Zyloprim] 100 mg PO HS 11/21/19 05/07/23 Albuterol Sulfate [Ventolin HFA] 2 puff INHALATION RT-QID PRN 10/21/21 05/07/23 Fluticasone/Umeclidin/Vilanter 1 puff INHALATION RT-DAILY 10/21/21 05/07/23 [Trelegy Ellipta 100-62.5-25] Cyanocobalamin (Vitamin B-12) 1,000 mcg PO DAILY 07/02/22 05/07/23 [Vitamin B-12] ALPRAZolam [Xanax] 0.5 mg PO HS 11/06/22 05/07/23 Folic Acid 1 mg PO DAILY 11/06/22 05/07/23 guaiFENesin [guaiFENesin ER] 600 mg PO BID 11/06/22 05/07/23 Aspirin EC [Ecotrin Low Dose] 81 mg PO DAILY 12/20/22 05/07/23 Cholecalciferol [Vitamin D3 (25 75 mcg PO DAILY 12/20/22 05/07/23 Mcg = 1000 Iu)] Doxazosin [Cardura] 4 mg PO HS 12/20/22 05/07/23 Albuterol Nebulized [Ventolin 2.5 mg INHALATION RT-Q6H PRN 04/30/23 05/07/23 Nebulized] Budesonide [Pulmicort] 0.5 mg INHALATION RT-BID 04/30/23 05/07/23 Sodium Zirconium Cyclosilicate 1 packet PO DAILY 04/30/23 05/07/23 [Lokelma] Tobramycin [Tobramycin Nebules] 300 mg IH DIRECTED 04/30/23 05/07/23 ALPRAZolam [Xanax] 0.5 mg PO BID PRN 05/07/23 05/07/23 Furosemide [Lasix] 40 mg PO DAILY PRN 05/07/23 05/07/23 Sodium Bicarbonate Tab 650 mg PO DAILY 05/07/23 05/07/23 polyethylene glycoL 3350 [Miralax] 17 gm PO DAILY PRN 05/07/23 05/07/23 Previous Rx's Medication Instructions Recorded Magnesium Oxide [Mag-Ox] 400 mg PO BID 30 Days #60 tab 11/10/22 Allergies Allergy/AdvReac Type Severity Reaction Status Date / Time cefepime Allergy SHUT DOWN Verified 05/07/23 10:59 KIDNEYS ether Allergy Anaphylaxis Verified 05/07/23 10:59 Iodinated Contrast Media Allergy PAST Verified 05/07/23 10:59 [Iodinated Contrast Media - HISTORY OF Oral and] KIDNEY PROBLEMS venom-honey bee Allergy Anaphylaxis Verified 05/07/23 10:59 sulfamethoxazole AdvReac states Verified 05/07/23 10:59 [From Bactrim] effects kidneys trimethoprim [From Bactrim] AdvReac states Verified 05/07/23 10:59 effects kidneys Review of Systems ROS Statement: Those systems with pertinent positive or pertinent negative responses have been documented in the HPI. ROS Other: All systems not noted in ROS Statement are negative. Past Medical History Past Medical History: Blood Disorder, Cancer, COPD, Deep Vein Thrombosis (DVT), GERD/Reflux, Hypertension, Pneumonia, Renal Disease Additional Past Medical History / Comment(s): currently exasperbated SOB and productive coughing,hx of pseudomonus lung infection, O2 @ 3L ATC, diverticulits, Factor V Leiden, hx of bronchial silicone stent now removed, PICC line in past now removed, past hx dialysis for kidney damage-was in the hospital for 1 month 2016-none currently, Stage 3 renal disease, Lung cancer - diagnosed and treated down in [place] 2019, colostomy for tx of hole in colon and bladder- later reversal History of Any Multi-Drug Resistant Organisms: MRSA, Other MDRO Date of last positivie culture/infection: 04/13/23 MRSA; 12/24/22 MDRO Pseudomonas MDRO Source:: Sputum-MDRO & MRSA Past Surgical History: Hernia Repair, Tonsillectomy Additional Past Surgical History / Comment(s): bronchoscopy, bronchial silicone stent, now removed, fatty tumor removed from chest area, COLONOSCOPY, alexandre cataract, incisional hernia repair, ileostomy/colostomy reversal Past Anesthesia/Blood Transfusion Reactions: Previous Problems w/ Anesthesia Additional Past Anesthesia/Blood Transfusion Reaction / Comment(s): "as infant turned black and blue from ETHER". FACTOR V LEIDEN. no problems w/ prior blood transfusion Past Psychological History: Anxiety Smoking Status: Former smoker - Past Family History Father Family Medical History: Cancer Additional Family Medical History / Comment(s): colon cancer Mother Family Medical History: Cancer Additional Family Medical History / Comment(s): leukemia General Exam Limitations: no limitations Head exam: Present: atraumatic, normocephalic, normal inspection Eye exam: Present: normal appearance, PERRL, EOMI. Absent: scleral icterus, conjunctival injection, periorbital swelling Respiratory exam: Present: wheezes, other (coarse) Cardiovascular Exam: Present: regular rate, normal rhythm, normal heart sounds. Absent: systolic murmur, diastolic murmur, rubs, gallop, clicks GI/Abdominal exam: Present: soft, normal bowel sounds. Absent: distended, tenderness, guarding, rebound, rigid Neurological exam: Present: alert, oriented X3, CN II-XII intact Psychiatric exam: Present: normal affect, normal mood Course Vital Signs 05/07/23 05/07/23 05/07/23 09:44 10:20 11:00 Temperature 97.9 F Pulse Rate 69 65 Pulse Rate [ Sales Secretary ] Respiratory 24 16 12 Rate Blood Pressure 144/78 134/80 Blood Pressure [Left Arm] O2 Sat by Pulse 94 L 99 Oximetry 05/07/23 05/07/23 05/07/23 14:00 17:28 17:39 Temperature 98.4 F Pulse Rate 88 78 Pulse Rate [ 74 Sales Secretary ] Respiratory 16 Rate Blood Pressure Blood Pressure 140/74 [Left Arm] O2 Sat by Pulse 98 Oximetry Medical Decision Making - Medical Decision Making Was pt. sent in by a medical professional or institution (, PA, CAR CONDITIONER, urgent care, hospital, or halfway...) When possible be specific @ -Patient was sent in by Dr. Moctezuma office Did you speak to anyone other than the patient for history (EMS, parent, family, police, friend...)? What history was obtained from this source @ -Spoke with the patient's Did you review nursing and triage notes (agree or disagree)? Why? @ -I reviewed and agree with nursing and triage notes Were old charts reviewed (outside hosp., previous admission, EMS record, old EKG, old radiological studies, urgent care reports/EKG's, halfway records)? Report findings @ -I reviewed the bronchoscopy from the with the sensitivity results Differential Diagnosis (chest pain, altered mental status, abdominal pain women, abdominal pain men, vaginal bleeding, weakness, fever, dyspnea, syncope, h eadache, dizziness, GI bleed, back pain, seizure, CVA, palpatations, mental health, musculoskeletal)? @ -Differential Dyspnea: Coronary syndrome, arrhythmia, tamponade, asthma, COPD, pulmonary embolism, pneumonia, pneumothorax, pulmonary effusion, anaphylaxis, diabetic ketoacidosis, flailed chest, pulmonary contusion, diaphragmatic rupture, anemia, neuromuscular, this is not meant to be an all-inclusive list. EKG interpreted by me (3pts min.). @ -Yes and demonstrates sinus rhythm with a rate of 66. AK interval 189. QRS 147. QTc of 461. No acute ST segment elevations or depressions. Right bundle branch block X-rays interpreted by me (1pt min.). @ -None done CT interpreted by me (1pt min.). @ -None done U/S interpreted by me (1pt. min.). @ -None done What testing was considered but not performed or refused? (CT, X-rays, U/S, labs)? Why? @ -None What meds were considered but not given or refused? Why? @ -None Did you discuss the management of the patient with other professionals (professionals i.e. , PA, CAR CONDITIONER, lab, RT, psych nurse, social services coordinator, overweaver, teacher, air crew officer, vocational case manager)? Give summary @ -I spoke with Dr. Castillo in regards to antibiotic choices Was smoking cessation discussed for >3mins.? @ -No Was critical care preformed (if so, how long)? @ -No Were there social determinants of health that impacted care today? How? (Homelessness, low income, unemployed, alcoholism, drug addiction, transportation, low edu. Level, literacy, decrease access to med. care, fpc, rehab)? @ -No Was there de-escalation of care discussed even if they declined (Discuss DNR or withdrawal of care, Hospice)? DNR status @ -No What co-morbidities impacted this encounter? (DM, HTN, Smoking, COPD, CAD, Cancer, CVA, ARF, Chemo, Hep., AIDS, mental health diagnosis, sleep apnea, morbid obesity)? @ -COPD, recurrent respiratory infections Was patient admitted / discharged? Hospital course, mention meds given and route, prescriptions, significant lab abnormalities, going to OR and other pertinent info. @ -Admitted. Upon arrival patient was placed into room 1. Thorough history and physical exam was performed. Cultures obtained demonstrate that the patient is only sensitive to Bactrim. Patient sent in for IV Bactrim. I spoke with the inpatient pharmacy who does dose Bactrim for the patient. Spoke with Dr. Castillo in regards to other antibiotic choices however he states that IV Bactrim will be best at this time. I will place nephrology on consult. Poke with Dr. Cervantes for admission Undiagnosed new problem with uncertain prognosis? @ -No Drug Therapy requiring intensive monitoring for toxicity (Heparin, Nitro, Insulin, Cardizem)? @ -No Were any procedures done? @ -No Diagnosis/symptom? @ -Acute cough, recurrent pneumonia, history of multi drug-resistant organisms, ckd Acute, or Chronic, or Acute on Chronic? @ -Acute on chronic Uncomplicated (without systemic symptoms) or Complicated (systemic symptoms)? @ -Complicated Side effects of treatment? @ -No Exacerbation, Progression, or Severe Exacerbation? @ -Yes Poses a threat to life or bodily function? How? (Chest pain, USA, VT, pneumonia, PE, COPD, DKA, ARF, appy, cholecystitis, CVA, Diverticulitis, Homicidal, Suicidal, threat to staff... and all critical care pts) @ -Yes as patient has lung infection with only 1 current susceptible antibiotic - Lab Data Result diagrams: 05/08/23 06:15 05/08/23 06:15 Lab Results 05/07/23 05/07/23 Range/Units 11:05 11:05 WBC 4.6 (3.8-10.6) k/uL RBC 3.49 L (4.30-5.90) m/uL Hgb 10.9 L (13.0-17.5) gm/dL Hct 33.9 L (39.0-53.0) % MCV 97.3 (80.0-100.0) fL MCH 31.2 (25.0-35.0) pg MCHC 32.0 (31.0-37.0) g/dL RDW 16.3 H (11.5-15.5) % Plt Count 184 (150-450) k/uL MPV 9.9 Neutrophils % 67 % Lymphocytes % 24 % Monocytes % 5 % Eosinophils % 2 % Basophils % 0 % Neutrophils # 3.1 (1.3-7.7) k/uL Lymphocytes # 1.1 (1.0-4.8) k/uL Monocytes # 0.3 (0-1.0) k/uL Eosinophils # 0.1 (0-0.7) k/uL Basophils # 0.0 (0-0.2) k/uL Hypochromasia Slight Anisocytosis Slight Macrocytosis Slight Sodium 140 (137-145) mmol/L Potassium 4.3 (3.5-5.1) mmol/L Chloride 102 (98-107) mmol/L Carbon Dioxide 33 H (22-30) mmol/L Anion Gap 5 mmol/L BUN 49 H (9-20) mg/dL Creatinine 1.94 H (0.66-1.25) mg/dL Est GFR (CKD-EPI)AfAm 37 (>60 ml/min/1.73 sqM) Est GFR (CKD-EPI)NonAf 32 (>60 ml/min/1.73 sqM) Glucose 92 (74-99) mg/dL Calcium 9.1 (8.4-10.2) mg/dL Total Bilirubin 0.8 (0.2-1.3) mg/dL AST 34 (17-59) U/L ALT 21 (4-49) U/L Alkaline Phosphatase 77 (38-126) U/L Total Protein 6.4 (6.3-8.2) g/dL Albumin 3.8 (3.5-5.0) g/dL Disposition Clinical Impression: Failure of outpatient treatment, Tracheobronchomalacia determined by bronchoscopy, 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
[2023-05-07] MEDS ORDERED: NALOXONE 0.4 MG/ML 1 ML VIAL IV PRN (12:10)
[2023-05-07] MEDS ORDERED: FUROSEMIDE 40 MG TAB PO PRN (12:54)
[2023-05-07] MEDS: SODIUM CHLORIDE 0.9% 1,000 ML IV SCH (12:55)
[2023-05-07] MEDS: WATER IVPB ONE (12:55)
[2023-05-07] MEDS: DEXTROSE 5% IVPB ONE (12:55)
[2023-05-07] MEDS: SULFAMETHOX TMP IVPB ONE (12:55)
[2023-05-07] MEDS ORDERED: LACTULOSE 20 GM/30 ML CUP PO PRN (12:56)
[2023-05-07] MEDS ORDERED: ACETAMINOPHEN TAB 325 MG TAB PO PRN (12:56)
[2023-05-07] MEDS ORDERED: ONDANSETRON 4 MG/2 ML VIAL IVP PRN (12:56)
[2023-05-07] MEDS ORDERED: TEMAZEPAM 15 MG CAP PO PRN (12:56)
[2023-05-07] MEDS ORDERED: CALCIUM CARBONATE 500 MG CHEWABLE PO PRN (12:56)
--- NOTE | 2023-05-07 13:38 | P.HPIM ---
History of Present Illness H&P Date: 05/07/23 Chief Complaint: Cough Patient is a 77-year-old male with a past medical history of COPD on home oxygen 2 L as needed, , history of bronchial stent placement/removal, CKD stage III, history of lung cancer, history of DVT, hypertension anxiety and prior history of smoking presents underwent extensive lysis of adhesions, small bowel resection and repair of incisional hernia on 02/09/2022.reversal of ostomy and repair of incisional hernia done on November 14, 2022.-. Patient send repeated pneumonias. Also had bronchoscopy with lavages Patient has been having respiratory infection outpatient. Was given 10-day course of Zyvox. Then had a break. Underwent bronchoscopy with lavage on May 01, [address] Cortez. Cultures have come back showing Stenotrophomonas maltophilia. Based on the cultures patient be admitted for IV antibiotics. Started on IV Bactrim. ID consulted Patient is coughing of sputum. Appetite is fair. Short of breath. Some wheezing. Normally uses 2 L of oxygen at home as needed currently using 3 L at all times. Review of systems: GEN.: Tired EYES: None HEENT: None NECK: None RESPIRATORY: As above CARDIOVASCULAR: None GASTROINTESTINAL: None GENITOURINARY: None MUSCULOSKELETAL: Joint pains LYMPHATICS: None HEMATOLOGICAL: None PSYCHIATRY: None NEUROLOGICAL: None Physical examination: VITAL SIGNS: 97.9, 69, 24, 144/78, 94% on 3 L GENERAL: BMI 25, reclining in bed, a bit tired. EYES: Pupils equal. Conjunctiva wisam l. HEENT: External appearance of nose and ears normal, oral cavity grossly normal. NECK: JVD not raised; masses not palpable. HEART: First and second heart sounds are normal; some edema. LUNGS: Respiratory rate increased; diminished breath sounds, some scattered crackles. ABDOMEN: Soft, nontender, liver spleen not palpable, no masses palpable. PSYCH: Alert and oriented x3; mood and affect tired l. MUSCULOSKELETAL:No Clubbing/cyanosis;muscles-grossly intact. OA NEUROLOGICAL: Cranial nerves grossly intact; no facial asymmetry, power and sensation grossly intact. LYMPHATICS: No lymph nodes palpable in the axilla and neck INVESTIGATIONS, reviewed in the clinical context: May 07, 2023: White count 4.6 hemoglobin 10.9 platelets 184 potassium 4.3 BUN 49 creatinine 1.94 EKG tracing personally reviewed by me-right bundle bud block. Sinus rhythm. PVC. Previous labs: Sputum culture [May 01] Stenotrophomonas maltophilia Assessment and plan: -Pneumonia secondary to Stenotrophomonas maltophilia diagnosed on sputum culture following bronchoscopy with lavage on May [address] Dana Gonsalze. ID consulted. -Acute COPD exacerbation in an ex-smoker: Perform rest/Pulmicort nebulizer twice daily. Atrovent nebulizer. -Acute on chronic hypoxic respiratory failure On home oxygen 2 L at night. Currently on 3 L at all times Chronic kidney disease stage III baseline creatinine level -Creatinine 1.4 -Anemia of chronic kidney disease. Iron deficiency anemia. Has received IV iron in the past -Chronic hyperkalemia from underlying COPD Chronically on Lokelma -Reversal of colostomy and umbilical hernia repair on 11/14/2022. Wound care to continue Right upper lobe pulmonary nodule. Patient had PET scan and was treated with SBRT Obstructive sleep apnea not on CPAP Chronic hypoxic respiratory failure, from underlying COPD -on home oxygen 2 L at night -Chronic dysphagia On nectar thick liquids. Chin tuck History of DVT Essential Hypertension -Lopressor 25 mg twice a day Discussed with patient. IV Bactrim. Consultation to pulmonary and ID. Past Medical History Past Medical History: Blood Disorder, Cancer, COPD, Deep Vein Thrombosis (DVT), GERD/Reflux, Hypertension, Pneumonia, Renal Disease Additional Past Medical History / Comment(s): currently exasperbated SOB and productive coughing,hx of pseudomonus lung infection, O2 @ 3L ATC, diverticulits , Factor V Leiden, hx of bronchial silicone stent now removed, PICC line in past now removed, past hx dialysis for kidney damage-was in the hospital for 1 month 2016-none currently, Stage 3 renal disease, Lung cancer - diagnosed and treated down in [place] 2019, colostomy for tx of hole in colon and bladder-later reversal History of Any Multi-Drug Resistant Organisms: MRSA, Other MDRO Date of last positivie culture/infection: 04/13/23 MRSA; 12/24/22 MDRO Pseudomonas MDRO Source:: Sputum-MDRO & MRSA Past Surgical History: Hernia Repair, Tonsillectomy Additional Past Surgical History / Comment(s): bronchoscopy, bronchial silicone stent, now removed, fatty tumor removed from chest area, COLONOSCOPY, alexandre cataract, incisional hernia repair, ileostomy/colostomy reversal Past Anesthesia/Blood Transfusion Reactions: Previous Problems w/ Anesthesia Additional Past Anesthesia/Blood Transfusion Reaction / Comment(s): "as infant turned black and blue from ETHER". FACTOR V LEIDEN. no problems w/ prior blood transfusion Past Psychological History: Anxiety Smoking Status: Former smoker - Past Family History Father Family Medical History: Cancer Additional Family Medical History / Comment(s): colon cancer Mother Family Medical History: Cancer Additional Family Medical History / Comment(s): leukemia Medications and Allergies Home Medications Medication Instructions Recorded Confirmed Type Montelukast Sodium [Singulair] 10 mg PO HS 01/24/14 05/07/23 History Metoprolol Tartrate [Lopressor] 25 mg PO BID 07/25/16 05/07/23 History L.acidoph,Paracasei, B.lactis 1 cap PO DAILY 09/01/18 05/07/23 History [Probiotic] allopurinoL [Zyloprim] 100 mg PO HS 11/21/19 05/07/23 History Albuterol Sulfate [Ventolin HFA] 2 puff INHALATION RT-QID PRN 10/21/21 05/07/23 History Fluticasone/Umeclidin/Vilanter 1 puff INHALATION RT-DAILY 10/21/21 05/07/23 History [Trelegy Ellipta 100-62.5-25] Cyanocobalamin (Vitamin B-12) 1,000 mcg PO DAILY 07/02/22 05/07/23 History [Vitamin B-12] ALPRAZolam [Xanax] 0.5 mg PO HS 11/06/22 05/07/23 History Folic Acid 1 mg PO DAILY 11/06/22 05/07/23 History guaiFENesin [guaiFENesin ER] 600 mg PO BID 11/06/22 05/07/23 History Magnesium Oxide [Mag-Ox] 400 mg PO BID 30 Days #60 tab 11/10/22 05/07/23 Rx Aspirin EC [Ecotrin Low Dose] 81 mg PO DAILY 12/20/22 05/07/23 History Cholecalciferol [Vitamin D3 (25 75 mcg PO DAILY 12/20/22 05/07/23 History Mcg = 1000 Iu)] Doxazosin [Cardura] 4 mg PO HS 12/20/22 05/07/23 History Albuterol Nebulized [Ventolin 2.5 mg INHALATION RT-Q6H PRN 04/30/23 05/07/23 History Nebulized] Budesonide [Pulmicort] 0.5 mg INHALATION RT-BID 04/30/23 05/07/23 History Sodium Zirconium Cyclosilicate 1 packet PO DAILY 04/30/23 05/07/23 History [Lokelma] Tobramycin [Tobramycin Nebules] 300 mg IH DIRECTED 04/30/23 05/07/23 History ALPRAZolam [Xanax] 0.5 mg PO BID PRN 05/07/23 05/07/23 History Furosemide [Lasix] 40 mg PO DAILY PRN 05/07/23 05/07/23 History Sodium Bicarbonate Tab 650 mg PO DAILY 05/07/23 05/07/23 History polyethylene glycoL 3350 [Miralax] 17 gm PO DAILY PRN 05/07/23 05/07/23 History Allergies Allergy/AdvReac Type Severity Reaction Status Date / Time cefepime Allergy SHUT DOWN Verified 05/07/23 10:59 KIDNEYS ether Allergy Anaphylaxis Verified 05/07/23 10:59 Iodinated Contrast Media Allergy PAST Verified 05/07/23 10:59 [Iodinated Contrast Media - HISTORY OF Oral and] KIDNEY PROBLEMS venom-honey bee Allergy Anaphylaxis Verified 05/07/23 10:59 sulfamethoxazole AdvReac states Verified 05/07/23 10:59 [From Bactrim] effects kidneys trimethoprim [From Bactrim] AdvReac states Verified 05/07/23 10:59 effects kidneys Physical Exam Vitals: Vital Signs Temp Pulse Resp BP Pulse Ox 05/07/23 11:00 65 12 134/80 99 05/07/23 10:20 16 05/07/23 09:44 97.9 F 69 24 144/78 94 L Intake and Output 05/06/23 05/07/23 05/07/23 22:59 06:59 14:59 Other: Weight 68.039 kg Results CBC & Chem 7: 05/07/23 11:05 05/07/23 11:05 Labs: Abnormal Lab Results - Last 24 Hours (Table) 05/07/23 05/07/23 Range/Units 11:05 11:05 RBC 3.49 L (4.30-5.90) m/uL Hgb 10.9 L (13.0-17.5) gm/dL Hct 33.9 L (39.0-53.0) % RDW 16.3 H (11.5-15.5) % Carbon Dioxide 33 H (22-30) mmol/L BUN 49 H (9-20) mg/dL Creatinine 1.94 H (0.66-1.25) mg/dL
[2023-05-07] MEDS: ENOXAPARIN 30 MG/0.3 ML SYRINGE SQ SCH (14:17)
[2023-05-07] MEDS: guaiFENesin 600 MG TABLET.ER PO SCH (14:17)
--- NOTE | 2023-05-07 17:18 | P.CNPUL ---
History of Present Illness Consult date: 05/07/23 Reason for consult: dyspnea History of present illness: This patient is 77 with known history of advanced COPD and severe tracheobronchomalacia in addition to her previous history of a lung mass that was treated by SBRT and previous history of renal cell mass she is by cryotherapy who has had several and recurrent respiratory tract infection with various gram-negative microorganisms including Pseudomonas aeruginosa and gram- positive organisms including MRSA. Looking at the various sputum samples that the patient has had, the patient had MRSA infection back in 02/17/2023 and subsequently on 04/13/2023 and the patient was treated on outpatient basis with Zyvox. As far as gram-negative infections, the patient had a combination of E. coli and stenotrophomonas on 03/10/2023. He continues to be symptomatic and the patient underwent a bronchoscopy endobronchial lavage on 05/01/2023 and there was recurrent infection with stenotrophomonas and this was resistant to Levaquin and Fortaz. It was sensitive to Bactrim. However, there was concern about patient by treatment with Bactrim as the patient is known to have chronic kidney disease, stage III. Based on that, the patient was asked to come into the hospital to be hospitalized for inpatient treatment. ID consultation will be obtained in regards to further advice for antibiotic management. The patient is currently on oxygen and he is on 3 L with a pulse ox of 98% he is afebrile. He has a congested cough and ongoing sputum production. No altered mentation. Appetite is good. No other specific complaints otherwise for now. In terms of his COPD, he has been maintained on Trelegy Ellipta on outpatient basis. His oxygen dependent over this past 6 months at least and the patient is having to use albuterol nebulized treatments [id number] as needed. He also uses inhaled tobramycin on outpatient basis regarding recurrent gram-negative and pseudomonal infections. This is being utilized every other month.the patient's most recent CAT scan of the chest abdomen and pelvis showed small bilateral pleural effusions and right lower lobe pulmonary nodule that has remained stable and the patient also has an ascending aortic aneurysm measuring 4.5 cm. This was done on 12/23/2022. The most recent echocardiogram that was done on 12/21/2022 showed a normal LV, elevated RVSP, moderate tricuspid regurgitation. Review of Systems CONSTITUTIONAL: Denies any recent significant weight loss or weight gain. EYES: Denies change in vision. EARS, NOSE, MOUTH, THROAT: Denies headaches, denies sore throat. CARDIOVASCULAR: Denies chest pain, palpitations or syncopal episodes. RESPIRATORY: Positive for shortness of breath, cough, congestion no hemoptysis. GASTROINTESTINAL: Denies change in appetite, denies abdominal pain GENITOURINARY: Denies hematuria, denies infections. MUSKULOSKELETAL: Denies pain, denies swelling. INTEGUMENTARY: Denies rash, denies eczema. NEUROLOGICAL: Denies recent memory loss, no recent seizure activity. PSYCHIATRIC: Denies anxiety, denies depression. HEMATOLOGIC/LYMPHATIC: Denies anemia, denies enlarged lymph nodes. Past Medical History Past Medical History: Blood Disorder, Cancer, COPD, Deep Vein Thrombosis (DVT), GERD/Reflux, Hypertension, Pneumonia, Renal Disease Additional Past Medical History / Comment(s): currently exasperbated SOB and p roductive coughing,hx of pseudomonus lung infection, O2 @ 3L ATC, diverticulits, Factor V Leiden, hx of bronchial silicone stent now removed, PICC line in past now removed, past hx dialysis for kidney damage-was in the hospital for 1 month 2016-none currently, Stage 3 renal disease, Lung cancer - diagnosed and treated down in [place] 2019, colostomy for tx of hole in colon and bladder-later revers al History of Any Multi-Drug Resistant Organisms: MRSA, Other MDRO Date of last positivie culture/infection: 04/13/23 MRSA; 12/24/22 MDRO Pseudomonas MDRO Source:: Sputum-MDRO & MRSA Past Surgical History: Hernia Repair, Tonsillectomy Additional Past Surgical History / Comment(s): bronchoscopy, bronchial silicone stent, now removed, fatty tumor removed from chest area, COLONOSCOPY, alexandre cataract, incisional hernia repair, ileostomy/colostomy reversal Past Anesthesia/Blood Transfusion Reactions: Previous Problems w/ Anesthesia Additional Past Anesthesia/Blood Transfusion Reaction / Comment(s): "as turned black and blue from ETHER". FACTOR V LEIDEN. no problems w/ prior blood transfusion Past Psychological History: Anxiety Smoking Status: Former smoker - Past Family History Father Family Medical History: Cancer Additional Family Medical History / Comment(s): colon cancer Mother Family Medical History: Cancer Additional Family Medical History / Comment(s): leukemia Medications and Allergies Home Medications Medication Instructions Recorded Confirmed Type Montelukast Sodium [Singulair] 10 mg PO HS 01/24/14 05/07/23 History Metoprolol Tartrate [Lopressor] 25 mg PO BID 07/25/16 05/07/23 History L.acidoph,Paracasei, B.lactis 1 cap PO DAILY 09/01/18 05/07/23 History [Probiotic] allopurinoL [Zyloprim] 100 mg PO HS 11/21/19 05/07/23 History Albuterol Sulfate [Ventolin HFA] 2 puff INHALATION RT-QID PRN 10/21/21 05/07/23 History Fluticasone/Umeclidin/Vilanter 1 puff INHALATION RT-DAILY 10/21/21 05/07/23 History [Trelegy Ellipta 100-62.5-25] Cyanocobalamin (Vitamin B-12) 1,000 mcg PO DAILY 07/02/22 05/07/23 History [Vitamin B-12] ALPRAZolam [Xanax] 0.5 mg PO HS 11/06/22 05/07/23 History Folic Acid 1 mg PO DAILY 11/06/22 05/07/23 History guaiFENesin [guaiFENesin ER] 600 mg PO BID 11/06/22 05/07/23 History Magnesium Oxide [Mag-Ox] 400 mg PO BID 30 Days #60 tab 11/10/22 05/07/23 Rx Aspirin EC [Ecotrin Low Dose] 81 mg PO DAILY 12/20/22 05/07/23 History Cholecalciferol [Vitamin D3 (25 75 mcg PO DAILY 12/20/22 05/07/23 History Mcg = 1000 Iu)] Doxazosin [Cardura] 4 mg PO HS 12/20/22 05/07/23 History Albuterol Nebulized [Ventolin 2.5 mg INHALATION RT-Q6H PRN 04/30/23 05/07/23 History Nebulized] Budesonide [Pulmicort] 0.5 mg INHALATION RT-BID 04/30/23 05/07/23 History Sodium Zirconium Cyclosilicate 1 packet PO DAILY 04/30/23 05/07/23 History [Lokelma] Tobramycin [Tobramycin Nebules] 300 mg IH DIRECTED 04/30/23 05/07/23 History ALPRAZolam [Xanax] 0.5 mg PO BID PRN 05/07/23 05/07/23 History Furosemide [Lasix] 40 mg PO DAILY PRN 05/07/23 05/07/23 History Sodium Bicarbonate Tab 650 mg PO DAILY 05/07/23 05/07/23 History polyethylene glycoL 3350 [Miralax] 17 gm PO DAILY PRN 05/07/23 05/07/23 History Allergies Allergy/AdvReac Type Severity Reaction Status Date / Time cefepime Allergy SHUT DOWN Verified 05/07/23 10:59 KIDNEYS ether Allergy Anaphylaxis Verified 05/07/23 10:59 Iodinated Contrast Media Allergy PAST Verified 05/07/23 10:59 [Iodinated Contrast Media - HISTORY OF Oral and] KIDNEY PROBLEMS venom-honey bee Allergy Anaphylaxis Verified 05/07/23 10:59 sulfamethoxazole AdvReac states Verified 05/07/23 10:59 [From Bactrim] effects kidneys trimethoprim [From Bactrim] AdvReac states Verified 05/07/23 10:59 effects kidneys Physical Exam Vitals: Vital Signs Temp Pulse Pulse Resp BP BP Pulse Ox 05/07/23 14:00 98.4 F 74 16 140/74 98 05/07/23 11:00 65 12 134/80 99 05/07/23 10:20 16 05/07/23 09:44 97.9 F 69 24 144/78 94 L Intake and Output 05/07/23 05/07/23 05/07/23 06:59 14:59 22:59 Intake Total 118 Balance 118 Intake: Oral 118 Other: Weight 68.039 kg GENERAL EXAM: Alert, thin 77-year-old male, on 3 L O2 nasal cannula, comfortable in no apparent distress. HEAD: Normocephalic. EYES: Normal reaction of pupils, equal size. NOSE: Clear with pink turbinates. THROAT: No erythema or exudates. NECK: No masses, no JVD. CHEST: No chest wall deformity. LUNGS: Equal air entry with faint crackles in the bilateral bases. Diminished. CVS: S1 and S2 normal with no audible murmur, regular rhythm. ABDOMEN: Dressing/binder in place. No hepatosplenomegaly, normal bowel sounds, no guarding or rigidity. SPINE: No scoliosis or deformity SKIN: No rashes CENTRAL NERVOUS SYSTEM: No focal deficits, tone is normal in all 4 extremities. EXTREMITIES: There is no peripheral edema. No clubbing, no cyanosis. Peripheral pulses are intact. Results - Laboratory Findings CBC and BMP: 05/07/23 11:05 05/07/23 11:05 Abnormal lab findings: Abnormal Labs 05/07/23 05/07/23 11:05 11:05 RBC 3.49 L Hgb 10.9 L Hct 33.9 L RDW 16.3 H Carbon Dioxide 33 H BUN 49 H Creatinine 1.94 H Assessment and Plan Plan: Acute COPD exacerbation with ongoing r respiratory difficulties and cough and hypoxemic respiratory failure. The patient has been undergoing recurrent respit e tract infection with gram-negative bacteria including Pseudomonas/stenotrophomonas and E. coli and gram-positive bacteria including MRSA. The patient was recently treated with Zyvox for his MRSA infection. 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 The bacteria is sensitive to Bactrim. The patient is symptomatic with excessive respiratory secretions and mucus production and ongoing shortness of breath. Severe COPD with chronic hypoxic respiratory failure maintained on Trelegy Ellipta on outpatient basis in addition to DuoNeb updrafts Recurrent respiratory tract infection with Pseudomonas aeruginosa/stenotroph omonas and the patient has been maintained on inhaled tobramycin on outpatient basis every other month Previous history of MRSA lung infection treated with Zyvox Chronic stage III kidney disease Severe tracheobronchomalacia Previous bronchoscopies Previous history of a lung mass treated with SBRT and subsequent PET/CT showed no significant metabolic activity History of renal mass treated by cryotherapy Previous history of DVT and pulmonary embolism maintained on anticoagulation and the patient has factor V Leyden Hypertension Struct of sleep apnea Diverticulosis with previous history of diverticulitis and the patient has undergone previous colectomy and colostomy for colonic perforation. Chronic Anemia, anemia of chronic disease Plan I will be very cautious in treating this patient with Bactrim. Bactrim is already been started in the IV form. I am going to consult nephrology and infectious disease regarding possibility of other antibiotic treatment and close monitoring of the renal function to avoid any nephrotoxicity from use of Bactrim. Titrate oxygen flow to maintain saturation above 90% Continue using DuoNeb nebulizer treatments [id number] Allow the patient to utilize Trelegy Ellipta from home Home medication will be resumed Will continue to follow.
[2023-05-07] MEDS: IPRATROPIUM-ALBUTEROL 3 ML NEB INHALATION STA (17:24)
[2023-05-07] MEDS ORDERED: IPRATROPIUM-ALBUTEROL 3 ML NEB INHALATION PRN ×3 (17:34→17:47)
[2023-05-07] MEDS ORDERED: BUDESONIDE 0.5 MG/2 ML NEBU INHALATION SCH (20:00)
[2023-05-07] MEDS ORDERED: guaiFENesin 600 MG TABLET.ER PO SCH (21:00)
[2023-05-07] MEDS: allopurinoL 100 MG TAB PO SCH (21:14)
[2023-05-07] MEDS: METOPROLOL TARTRATE 25 MG TAB PO SCH (21:14)
[2023-05-07] MEDS: MONTELUKAST 10 MG TAB PO SCH (21:14)
[2023-05-07] MEDS: DOXAZOSIN 4 MG TAB PO SCH (21:14)
[2023-05-07] MEDS: ALPRAZolam 0.5 MG TAB PO SCH (21:14)
[2023-05-07] MEDS: MAGNESIUM OXIDE 400 MG TAB PO SCH (21:14)
[2023-05-07] MEDS: FORMOTEROL FUMARATE 20 MCG/2 ML NEBU INHALATION SCH (21:31)
[2023-05-07] MEDS: IPRATROPIUM-ALBUTEROL 3 ML NEB INHALATION SCH (21:31)
[2023-05-07] MEDS: BUDESONIDE 1 MG/2 ML NEBU INHALATION SCH (21:31)
--- NOTE | 2023-05-07 22:41 | P.CONS ---
History of Present Illness - Reason for Consult Consult date: 05/07/23 - History of Present Illness Patient is a 77-year-old male with a past medical history significant for COPD DVT reflux hypertension renal disease patient did have a history of recurrent Pseudomonas pneumonia and has been treated in the outpatient setting with the inhalational tobramycin as secondary prophylaxis patient apparently mentioned having a problem with the difficulty in breathing and chest congestion and has been treated with a course of oral Zyvox as patient did have a sputum culture on 04/13/2023 that was positive for MRSA subsequently the patient did have a bronchoscopy done on 05/01/2023 and the cultures came back positive with stenotrophomonas that was sensitive only to Bactrim DS keeping in mind his borderline kidney function high risk of nephrotoxicity patient has been advised admission to the hospital to be treated with IV Bactrim instead of outpatient oral Bactrim and putting him at risk of renal failure and the patient present to the hospital per advice of his informatics 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 analyst, patient has been complaining of chest congestion increasing shortness of breath the patient also have a cough that seem to have increased in intensity currently moderate and is bringing up some sputum mostly clear occasionally white no hemoptysis patient denies having any nausea no vomiting no abdominal pain no diarrhea on presentation to the hospital the patient was afebrile and no fever has been called subsequently patient was noticed to mildly hypoxic with O2 sats of 94% on room air did have a white count of 4.6 creatinine is 1.94 electrolytes normal liver enzymes are normal patient was started on IV Bactrim infectious disease was consulted for further management of antibiotic therapy Past Medical History Past Medical History: Blood Disorder, Cancer, COPD, Deep Vein Thrombosis (DVT), GERD/Reflux, Hypertension, Pneumonia, Renal Disease Additional Past Medical History / Comment(s): currently exasperbated SOB and productive coughing,hx of pseudomonus lung infection, O2 @ 3L ATC, diverticulits, Factor V Leiden, hx of bronchial silicone stent now removed, PICC line in past now removed, past hx dialysis for kidney damage-was in the hospital for 1 month 2016-none currently, Stage 3 renal disease, Lung cancer - diagnosed and treated down in [place] 2019, colostomy for tx of hole in colon and bladder- later reversal History of Any Multi-Drug Resistant Organisms: MRSA, Other MDRO Year Discovered:: 04/13/23 MRSA; 12/24/22 MDRO Pseudomonas MDRO Source:: Sputum-MDRO & MRSA Past Surgical History: Hernia Repair, Tonsillectomy Additional Past Surgical History / Comment(s): bronchoscopy, bronchial silicone stent, now removed, fatty tumor removed from chest area, COLONOSCOPY, alexandre cataract, incisional hernia repair, ileostomy/colostomy reversal Past Anesthesia/Blood Transfusion Reactions: Previous Problems w/ Anesthesia Additional Past Anesthesia/Blood Transfusion Reaction / Comm: "as turned black and blue from ETHER". FACTOR V LEIDEN. no problems w/ prior blood transfusion Past Psychological History: Anxiety Smoking Status: Former smoker - Past Family History Father Family Medical History: Cancer Additional Family Medical History / Comment(s): colon cancer Mother Family Medical History: Cancer Additional Family Medical History / Comment(s): leukemia Medications and Allergies Home Medications Medication Instructions Recorded Confirmed Type Montelukast Sodium [Singulair] 10 mg PO HS 01/24/14 05/07/23 History Metoprolol Tartrate [Lopressor] 25 mg PO BID 07/25/16 05/07/23 History L.acidoph,Paracasei, B.lactis 1 cap PO DAILY 09/01/18 05/07/23 History [Probiotic] allopurinoL [Zyloprim] 100 mg PO HS 11/21/19 05/07/23 History Albuterol Sulfate [Ventolin HFA] 2 puff INHALATION RT-QID PRN 10/21/21 05/07/23 History Fluticasone/Umeclidin/Vilanter 1 puff INHALATION RT-DAILY 10/21/21 05/07/23 History [Trelegy Ellipta 100-62.5-25] Cyanocobalamin (Vitamin B-12) 1,000 mcg PO DAILY 07/02/22 05/07/23 History [Vitamin B-12] ALPRAZolam [Xanax] 0.5 mg PO HS 11/06/22 05/07/23 History Folic Acid 1 mg PO DAILY 11/06/22 05/07/23 History guaiFENesin [guaiFENesin ER] 600 mg PO BID 11/06/22 05/07/23 History Magnesium Oxide [Mag-Ox] 400 mg PO BID 30 Days #60 tab 11/10/22 05/07/23 Rx Aspirin EC [Ecotrin Low Dose] 81 mg PO DAILY 12/20/22 05/07/23 History Cholecalciferol [Vitamin D3 (25 75 mcg PO DAILY 12/20/22 05/07/23 History Mcg = 1000 Iu)] Doxazosin [Cardura] 4 mg PO HS 12/20/22 05/07/23 History Albuterol Nebulized [Ventolin 2.5 mg INHALATION RT-Q6H PRN 04/30/23 05/07/23 History Nebulized] Budesonide [Pulmicort] 0.5 mg INHALATION RT-BID 04/30/23 05/07/23 History Sodium Zirconium Cyclosilicate 1 packet PO DAILY 04/30/23 05/07/23 History [Lokelma] Tobramycin [Tobramycin Nebules] 300 mg IH DIRECTED 04/30/23 05/07/23 History ALPRAZolam [Xanax] 0.5 mg PO BID PRN 05/07/23 05/07/23 History Furosemide [Lasix] 40 mg PO DAILY PRN 05/07/23 05/07/23 History Sodium Bicarbonate Tab 650 mg PO DAILY 05/07/23 05/07/23 History polyethylene glycoL 3350 [Miralax] 17 gm PO DAILY PRN 05/07/23 05/07/23 History Allergies Allergy/AdvReac Type Severity Reaction Status Date / Time cefepime Allergy SHUT DOWN Verified 05/07/23 10:59 KIDNEYS ether Allergy Anaphylaxis Verified 05/07/23 10:59 Iodinated Contrast Media Allergy PAST Verified 05/07/23 10:59 [Iodinated Contrast Media - HISTORY OF Oral and] KIDNEY PROBLEMS venom-honey bee Allergy Anaphylaxis Verified 05/07/23 10:59 sulfamethoxazole AdvReac states Verified 05/07/23 10:59 [From Bactrim] effects kidneys trimethoprim [From Bactrim] AdvReac states Verified 05/07/23 10:59 effects kidneys Physical Exam Vitals: Vital Signs Temp Pulse Resp BP Pulse Ox 05/07/23 11:00 65 12 134/80 99 05/07/23 10:20 16 05/07/23 09:44 97.9 F 69 24 144/78 94 L Intake and Output 05/06/23 05/07/23 05/07/23 22:59 06:59 14:59 Other: Weight 68.039 kg Results CBC & Chem 7: 05/07/23 11:05 05/07/23 11:05 Labs: Abnormal Lab Results - Last 24 Hours (Table) 05/07/23 05/07/23 Range/Units 11:05 11:05 RBC 3.49 L (4.30-5.90) m/uL Hgb 10.9 L (13.0-17.5) gm/dL Hct 33.9 L (39.0-53.0) % RDW 16.3 H (11.5-15.5) % Carbon Dioxide 33 H (22-30) mmol/L BUN 49 H (9-20) mg/dL Creatinine 1.94 H (0.66-1.25) mg/dL Assessment and Plan Plan: 1patient was in the hospital with increasing shortness of breath and cough in this patient who did have end-stage COPD and bronchiectasis and history of recurrent pneumonia with recent bronchoscopy culture positive for drug-resistant Stenotrophomonas maltophilia, patient did have a history of renal insufficiency and high risk of nephrotoxicity from Bactrim DS. 2I did discuss with the micro lab and advised to check sensitivity for minocycline as that may be another option 3we will check inflammatory markers and chest x-ray PA and lateral 4for now IV Bactrim DS and will watch his kidney function closely We will follow on clinical condition and cultures to further adjust medication if needed Thank you for this consultation we will follow the patient along with you Dictation was produced using [employer] dictation software. please excuse any grammatical, word or spelling errors. Time with Patient: Greater than 30
[2023-05-08] MEDS: SULFAMETHOX TMP IVPB SCH (03:04)
[2023-05-08] MEDS: DEXTROSE 5% IVPB SCH (03:04)
[2023-05-08] MEDS: WATER IVPB SCH (03:04)
--- NOTE | 2023-05-08 07:04 | XR ---
EXAMINATION TYPE: XR chest 1V portable DATE OF EXAM: 05/08/2023 COMPARISON: 02/14/2023 INDICATION: Pneumonia TECHNIQUE: Single frontal view of the chest is obtained. FINDINGS: The heart size is normal. The pulmonary vasculature is normal. Small bilateral pleural effusions are present. These are increasing. Adjacent compressive atelectasis is present. Density in the right upper lung field remains present IMPRESSION: 1. Increase in small to moderate bilateral pleural effusions. 2. Bibasilar infiltrates.: Atelectasis or pneumonia. 3. Right upper lobe nodular mass may be present. Continued follow-up is recommended.
[2023-05-08] MEDS ORDERED: SYMBICORT 80-4.5 MCG INHALER INHALATION SCH (08:00)
[2023-05-08] MEDS ORDERED: IPRATROPIUM 0.5 MG/2.5 ML NEBU INHALATION SCH (08:00)
[2023-05-08 09:20] LABS: BUN/Creat Ratio 19.67 Ratio (12.00-20.00); Blood Urea Nitrogen 41.3 mg/dL (9.0-27.0); Calcium 8.3 mg/dL (8.7-10.3); Carbon Dioxide 26.3 mmol/L (21.6-31.8); Chloride 103 mmol/L (96-109); Glucose 121 mg/dL (70-110); Sodium 140 mmol/L (135-145)
[2023-05-08 09:24] LABS: Basophils # (A) 0.02 X 10*3/uL (0.00-0.10); Basophils % (A) 0.5 %; Eosinophils # (A) 0.12 X 10*3/uL (0.04-0.35); HGB 8.7 g/dL (13.0-17.0); Lymphocytes # (A) 0.87 X 10*3/uL (0.90-5.00); Lymphocytes % (A) 21.5 %; MCH 29.9 pg (27.0-32.0); MCHC 31.1 g/dL (32.0-37.0); MCV 96.2 FL (80.0-97.0); Mean Platelet Volume 12.8 FL (9.5-12.2); Monocytes # (A) 0.35 X 10*3/uL (0.20-1.00); Monocytes % (A) 8.7 %; NRBC Per 100 WBC 0 X 10*3/uL (0.00-0.01); Neutrophils # (A) 2.67 X 10*3/uL (1.80-7.70); Neutrophils % (A) 66.1 %; Platelet Count 176 X 10*3/uL (140-440); RBC 2.91 X 10*6/uL (4.40-5.60); RDW 16.6 % (11.5-14.5); WBC 4.04 X 10*3/uL (4.50-10.00)
[2023-05-08] MEDS: FOLIC ACID 1 MG TAB PO SCH (09:38)
[2023-05-08] MEDS: CYANOCOBALAMIN 500 MCG TAB PO SCH (09:38)
[2023-05-08] MEDS: CHOLECALCIFEROL 25 MCG (1000 IU) TABLET PO SCH (09:38)
[2023-05-08] MEDS: LACTOBACILLUS ACIDOPHILUS/PECT 1 EACH CAPSULE PO SCH (09:39)
[2023-05-08] MEDS: SODIUM BICARBONATE TAB 650 MG TAB PO SCH (09:39)
[2023-05-08] MEDS: ASPIRIN 81 MG PO SCH (09:39)
[2023-05-08] MEDS: SODIUM ZIRCONIUM CYCLOSILICATE 10 GM PACKET PO SCH (09:40)
--- NOTE | 2023-05-08 10:32 | P.NPCON ---
History of Present Illness - Reason for Consult acute renal failure, chronic renal failure - History of Present Illness Reason for consultation: Acute kidney injury on chronic kidney disease History of present illness: Patient is a 77-year-old male seen in renal consultation for acute kidney injury on chronic kidney disease. Patient has chronic kidney disease stage IIIb with baseline creatinine 1.6-1.9 secondary to nonrecovered ATN and multiple acute kidney injury episodes in the past. Creatinine on admission was 1.94 and is 2.1 today. Patient came to the hospital due to pneumonia. Patient states he has been struggling with pneumonia and has had multiple episodes of Pseudomonas in the past. Patient states he was diagnosed with gram-positive pneumonia with culture positive for stenotrophomonas. Patient states he completed Zyvox but that did not completely treat the infection. Patient was then sent to the hospital to receive IV antibiotics. He is currently receiving IV Bactrim. He is being followed by infectious disease. Also being followed by pulmonology. Patient has history of hyperkalemia and is maintained on [facility] outpatient. He admits to a productive cough with brown phlegm. No vomiting or diarrhea. No edema. Denies use of NSAIDs. Hemodynamically stable. Afebrile. White count slightly low. Denies gross hematuria or dysuria. Vital signs are stable. General: No acute distress. HEENT: Head exam is unremarkable. On nasal cannula. LUNGS: Scattered rhonchi. HEART: Rate and Rhythm are regular. ABDOMEN: Nontender. EXTREMITITES: No edema. Past Medical History Past Medical History: Blood Disorder, Cancer, COPD, Deep Vein Thrombosis (DVT), GERD/Reflux, Hypertension, Pneumonia, Renal Disease Additional Past Medical History / Comment(s): currently exasperbated SOB and productive coughing,hx of pseudomonus lung infection, O2 @ 3L ATC, diverticulits, Factor V Leiden, hx of bronchial silicone stent now removed, PICC line in past now removed, past hx dialysis for kidney damage-was in the hospital for 1 month 2016-none currently, Stage 3 renal disease, Lung cancer - diagnosed and treated down in 2019, colostomy for tx of hole in colon and bladder- later reversal History of Any Multi-Drug Resistant Organisms: MRSA, Other MDRO Date of last positivie culture/infection: 04/13/23 MRSA; 12/24/22 MDRO Pseudomonas MDRO Source:: Sputum-MDRO & MRSA Past Surgical History: Hernia Repair, Tonsillectomy Additional Past Surgical History / Comment(s): bronchoscopy, bronchial silicone stent, now removed, fatty tumor removed from chest area, COLONOSCOPY, alexandre cataract, incisional hernia repair, ileostomy/colostomy reversal Past Anesthesia/Blood Transfusion Reactions: Previous Problems w/ Anesthesia Additional Past Anesthesia/Blood Transfusion Reaction / Comment(s): "as infant turned black and blue from ETHER". FACTOR V LEIDEN. no problems w/ prior blood transfusion Past Psychological History: Anxiety Smoking Status: Former smoker - Past Family History Father Family Medical History: Cancer Additional Family Medical History / Comment(s): colon cancer Mother Family Medical History: Cancer Additional Family Medical History / Comment(s): leukemia Medications and Allergies Home Medications Medication Instructions Recorded Confirmed Type Montelukast Sodium [Singulair] 10 mg PO HS 01/24/14 05/07/23 History Metoprolol Tartrate [Lopressor] 25 mg PO BID 07/25/16 05/07/23 History L.acidoph,Paracasei, B.lactis 1 cap PO DAILY 09/01/18 05/07/23 History [Probiotic] allopurinoL [Zyloprim] 100 mg PO HS 11/21/19 05/07/23 History Albuterol Sulfate [Ventolin HFA] 2 puff INHALATION RT-QID PRN 10/21/21 05/07/23 History Fluticasone/Umeclidin/Vilanter 1 puff INHALATION RT-DAILY 10/21/21 05/07/23 History [Trelegy Ellipta 100-62.5-25] Cyanocobalamin (Vitamin B-12) 1,000 mcg PO DAILY 07/02/22 05/07/23 History [Vitamin B-12] ALPRAZolam [Xanax] 0.5 mg PO HS 11/06/22 05/07/23 History Folic Acid 1 mg PO DAILY 11/06/22 05/07/23 History guaiFENesin [guaiFENesin ER] 600 mg PO BID 11/06/22 05/07/23 History Magnesium Oxide [Mag-Ox] 400 mg PO BID 30 Days #60 tab 11/10/22 05/07/23 Rx Aspirin EC [Ecotrin Low Dose] 81 mg PO DAILY 12/20/22 05/07/23 History Cholecalciferol [Vitamin D3 (25 75 mcg PO DAILY 12/20/22 05/07/23 History Mcg = 1000 Iu)] Doxazosin [Cardura] 4 mg PO HS 12/20/22 05/07/23 History Albuterol Nebulized [Ventolin 2.5 mg INHALATION RT-Q6H PRN 04/30/23 05/07/23 History Nebulized] Budesonide [Pulmicort] 0.5 mg INHALATION RT-BID 04/30/23 05/07/23 History Sodium Zirconium Cyclosilicate 1 packet PO DAILY 04/30/23 05/07/23 History [Lokelma] Tobramycin [Tobramycin Nebules] 300 mg IH DIRECTED 04/30/23 05/07/23 History ALPRAZolam [Xanax] 0.5 mg PO BID PRN 05/07/23 05/07/23 History Furosemide [Lasix] 40 mg PO DAILY PRN 05/07/23 05/07/23 History Sodium Bicarbonate Tab 650 mg PO DAILY 05/07/23 05/07/23 History polyethylene glycoL 3350 [Miralax] 17 gm PO DAILY PRN 05/07/23 05/07/23 History Allergies Allergy/AdvReac Type Severity Reaction Status Date / Time cefepime Allergy SHUT DOWN Verified 05/07/23 10:59 KIDNEYS ether Allergy Anaphylaxis Verified 05/07/23 10:59 Iodinated Contrast Media Allergy PAST Verified 05/07/23 10:59 [Iodinated Contrast Media - HISTORY OF Oral and] KIDNEY PROBLEMS venom-honey bee Allergy Anaphylaxis Verified 05/07/23 10:59 sulfamethoxazole AdvReac states Verified 05/07/23 10:59 [From Bactrim] effects kidneys trimethoprim [From Bactrim] AdvReac states Verified 05/07/23 10:59 effects kidneys Physical Exam Vitals: Vital Signs Temp Pulse Pulse Resp BP BP Pulse Ox 05/08/23 09:13 80 05/08/23 09:01 78 05/08/23 09:00 76 05/08/23 08:52 96 05/08/23 08:49 76 05/08/23 08:00 97.7 F 84 17 162/73 93 L 05/08/23 02:00 98 F 65 125/57 94 L 05/07/23 21:58 70 05/07/23 21:49 70 05/07/23 21:46 70 05/07/23 21:32 69 05/07/23 20:00 98.5 F 69 16 133/74 97 05/07/23 17:39 78 05/07/23 17:28 88 05/07/23 14:00 98.4 F 74 16 140/74 98 05/07/23 11:00 65 12 134/80 99 Intake and Output 05/07/23 05/08/23 05/08/23 22:59 06:59 14:59 Output Total 325 Balance -325 Output: Urine 325 Other: # Voids 2 Weight 68.039 kg Results - Lab Results Most recent lab results Calcium 9.1 mg/dL (8.4-10.2) 05/07/23 11:05 05/08/23 06:15 05/08/23 06:15 Assessment and Plan Plan: Assessment: 1. Acute kidney injury secondary to ATN secondary to infection and also from Bactrim which will impair creatinine secretion. Creatinine 2.1 today. CAT scan from December 2022 showed no evidence of hydronephrosis. 2. Chronic kidney disease stage IIIb with baseline creatinine 1.6-1.9 secondary to nonrecovered ATN and multiple episodes of acute kidney injury. 3. Chronic hyperkalemia maintained on Lokelma outpatient. 4. Recurrent episodes of pneumonia. Last culture from May 01, 2023 positive for stenotrophomonas maltophilia. Being followed by infectious disease and pulmonology. 5. Chronic diastolic CHF and moderate tricuspid regurgitation. 6. Anemia of chronic kidney disease. Plan: Maintain gentle IV hydration. Monitor renal function and potassium level closely. Avoid nephrotoxins. Continue to monitor renal function and urine output. Add Aranesp. Avoid IV iron in the setting of acute infection. Thank you for the consultation. I will continue to follow the patient with you during his hospital stay.
[2023-05-08] MEDS: DARBEPOETIN ALFA 40 MCG/0.4 ML SYRINGE SQ SCH (13:38)
--- NOTE | 2023-05-08 15:44 | P.PN ---
Subjective Progress Note Date: 05/08/23 Principal diagnosis: Reason for follow-up is stenotrophomonas pneumonia Patient is a 77-year-old male with a past medical history significant for COPD DVT reflux hypertension renal disease patient did have a history of recurrent Pseudomonas pneumonia recently did have a outpatient bronchoscopy done on 05/01/2023 that did grew stenotrophomonas sensitive only to Bactrim DS because of his kidney function patient has been admitted to hospital for treatment. On today's evaluation that is 05/08/2023,the patient denies any fever or any chills, patient was complaining of worsening shortness of breath and cough this morning seem to have slightly settled down this afternoon he is on a 5 L nasal cannula oxygen still bringing up some brownish sputum no hemoptysis no vomiting or diarrhea. Patient white count is 4.04, creatinine is 2.1 Pro-Prince 0.24 chest x-ray bibasilar infiltrate Objective - Vital Signs Vital signs: Vital Signs Temp 97.9 F 05/08/23 14:00 Pulse 83 05/08/23 14:00 Resp 15 05/08/23 14:00 BP 148/75 05/08/23 14:00 Pulse Ox 95 05/08/23 14:00 FiO2 Intake & Output 05/07/23 05/08/23 05/08/23 18:59 06:59 18:59 Intake Total 118 Output Total 325 Balance 118 -325 Weight 68.039 kg Intake: Oral 118 Output: Urine 325 Other: # Voids 2 - Exam GENERAL DESCRIPTION: An elderly male up in bed in no distress RESPIRATORY SYSTEM: Unlabored breathing , coarse breath sounds bilaterally HEART: S1 S2 regular rate and rhythm , ABDOMEN: Soft , no tenderness EXTREMITIES: No edema feet - Labs CBC & Chem 7: 05/08/23 06:15 05/08/23 06:15 Labs: Abnormal Lab Results - Last 24 Hours (Table) 05/08/23 05/08/23 05/08/23 Range/Units 06:15 06:15 06:15 WBC 4.04 L (4.50-10.00) X 10*3/uL RBC 2.91 L (4.40-5.60) X 10*6/uL Hgb 8.7 L (13.0-17.0) g/dL Hct 28.0 L (39.6-50.0) % MCHC 31.1 L (32.0-37.0) g/dL RDW 16.6 H (11.5-14.5) % MPV 12.8 H (9.5-12.2) FL Lymphocytes # 0.87 L (0.90-5.00) X 10*3/uL BUN 41.3 H (9.0-27.0) mg/dL Creatinine 2.1 H (0.6-1.5) mg/dL Est GFR (CKD-EPI) 31 L (>=60) Glucose 121 H (70-110) mg/dL C-Reactive Protein 2.90 H (0.00-0.80) mg/dL Procalcitonin 0.24 H (0.02-0.09) ng/mL Assessment and Plan (1) Infection due to Stenotrophomonas maltophilia Current Visit: Yes Status: Acute Code(s): A49.8 - OTHER BACTERIAL INFECTIONS OF UNSPECIFIED SITE SNOMED Code(s): 57036067 (2) Pneumonia Current Visit: No Status: Acute Code(s): J18.9 - PNEUMONIA, UNSPECIFIED ORGANISM SNOMED Code(s): 144096976 Plan: 1patient was in the hospital with increasing shortness of breath and cough in this patient who did have end-stage COPD and bronchiectasis and history of recurrent pneumonia with recent bronchoscopy culture positive for drug-resistant Stenotrophomonas maltophilia, patient did have a history of renal insufficiency and high risk of nephrotoxicity from Bactrim DS. 2we are currently waiting for sensitivity for minocycline 3patient did have elevated inflammatory markers and chest x-ray PA and lateral suggestive of pneumonia 4patient to continue with IV Bactrim DS and will watch his kidney function closely Daughter at the bedside questions were answered Dictation was produced using [employer] software. please excuse any grammatical, word or spelling errors. Time with Patient: Less than 30
--- NOTE | 2023-05-08 16:09 | P.PN ---
Subjective Progress Note Date: 05/08/23 This patient is 77 with known history of advanced COPD and severe tracheobronchomalacia in addition to her previous history of a lung mass that was treated by SBRT and previous history of renal cell mass she is by cryotherapy who has had several and recurrent respiratory tract infection with various gram-negative microorganisms including Pseudomonas aeruginosa and gram- positive organisms including MRSA. Looking at the various sputum samples that the patient has had, the patient had MRSA infection back in 02/17/2023 and subsequently on 04/13/2023 and the patient was treated on outpatient basis with Zyvox. As far as gram-negative infections, the patient had a combination of E. coli and stenotrophomonas on 03/10/2023. He continues to be symptomatic and the patient underwent a bronchoscopy endobronchial lavage on 05/01/2023 and there was recurrent infection with stenotrophomonas and this was resistant to Levaquin and Fortaz. It was sensitive to Bactrim. However, there was concern about patient by treatment with Bactrim as the patient is known to have chronic kidney disease, stage III. Based on that, the patient was asked to come into the hospital to be hospitalized for inpatient treatment. ID consultation will be obtained in regards to further advice for antibiotic management. The patient is currently on oxygen and he is on 3 L with a pulse ox of 98% he is afebrile. He has a congested cough and ongoing sputum production. No altered mentation. Appetite is good. No other specific complaints otherwise for now. In terms of his COPD, he has been maintained on Trelegy Ellipta on outpatient basis. His oxygen dependent over this past 6 months at least and the patient is having to use albuterol nebulized treatments [id number] as needed. He also uses inhaled tobramycin on outpatient basis regarding recurrent gram-negative and pseudomonal infections. This is being utilized every other month.the patient's most recent CAT scan of the chest abdomen and pelvis showed small bilateral pleural effusions and right lower lobe pulmonary nodule that has remained stable and the patient also has an ascending aortic aneurysm measuring 4.5 cm. This was done on 12/23/2022. The most recent echocardiogram that was done on 12/21/2022 showed a normal LV, elevated RVSP, moderate tricuspid regurgitation. On today's evaluation of 05/08/2023, the patient remains on IV Bactrim. The renal function is being monitored very closely. Blood work from today shows a Of 41 with a creatinine of 2.1. Sodium is at 140 with a potassium level of 4. The white cell count is 4 with a hemoglobin of 8.7. He remains on oxygen 3 L/min nasal cannula. He desaturates on room air oxygen. He is afebrile. He has a congested cough. A chest x-ray was also done today and it showed lower lobe pul monary infiltrates/atelectasis which are essentially chronic and the patient has a right upper lobe nodular density that was noted before. He is resting comfortably in bed. No other new complaints otherwise for now Objective - Vital Signs Vital signs: Vital Signs Temp 97.7 F 05/08/23 08:00 Pulse 80 05/08/23 09:13 Resp 17 05/08/23 08:00 BP 162/73 05/08/23 08:00 Pulse Ox 96 05/08/23 08:52 FiO2 Intake & Output 05/07/23 05/08/23 05/08/23 18:59 06:59 18:59 Intake Total 118 Output Total 325 Balance 118 -325 Weight 68.039 kg Intake: Oral 118 Output: Urine 325 Other: # Voids 2 - Exam GENERAL EXAM: Alert, thin 77-year-old male, on 3 L O2 nasal cannula, comfortable in no apparent distress. HEAD: Normocephalic. EYES: Normal reaction of pupils, equal size. NOSE: Clear with pink turbinates. THROAT: No erythema or exudates. NECK: No masses, no JVD. CHEST: No chest wall deformity. LUNGS: Equal air entry with faint crackles in the bilateral bases. Diminished. CVS: S1 and S2 normal with no audible murmur, regular rhythm. ABDOMEN: Dressing/binder in place. No hepatosplenomegaly, normal bowel sounds, no guarding or rigidity. SPINE: No scoliosis or deformity SKIN: No rashes CENTRAL NERVOUS SYSTEM: No focal deficits, tone is normal in all 4 extremities. EXTREMITIES: There is no peripheral edema. No clubbing, no cyanosis. Peripheral pulses are intact. - Labs CBC & Chem 7: 05/08/23 06:15 05/08/23 06:15 Labs: Abnormal Lab Results - Last 24 Hours (Table) 05/07/23 05/07/23 05/08/23 Range/Units 11:05 11:05 06:15 WBC 4.04 L (4.50-10.00) X 10*3/uL RBC 3.49 L 2.91 L (4.30-5.90) m/uL Hgb 10.9 L 8.7 L (13.0-17.5) gm/dL Hct 33.9 L 28.0 L (39.0-53.0) % MCHC 31.1 L (32.0-37.0) g/dL RDW 16.3 H 16.6 H (11.5-15.5) % MPV 12.8 H (9.5-12.2) FL Lymphocytes # 0.87 L (0.90-5.00) X 10*3/uL Carbon Dioxide 33 H (22-30) mmol/L BUN 49 H (9-20) mg/dL Creatinine 1.94 H (0.66-1.25) mg/dL Est GFR (CKD-EPI) (>=60) Glucose (70-110) mg/dL C-Reactive Protein (0.00-0.80) mg/dL Procalcitonin (0.02-0.09) ng/mL 05/08/23 05/08/23 Range/Units 06:15 06:15 WBC (4.50-10.00) X 10*3/uL RBC (4.30-5.90) m/uL Hgb (13.0-17.5) gm/dL Hct (39.0-53.0) % MCHC (32.0-37.0) g/dL RDW (11.5-15.5) % MPV (9.5-12.2) FL Lymphocytes # (0.90-5.00) X 10*3/uL Carbon Dioxide (22-30) mmol/L BUN 41.3 H (9-20) mg/dL Creatinine 2.1 H (0.66-1.25) mg/dL Est GFR (CKD-EPI) 31 L (>=60) Glucose 121 H (70-110) mg/dL C-Reactive Protein 2.90 H (0.00-0.80) mg/dL Procalcitonin 0.24 H (0.02-0.09) ng/mL Assessment and Plan Plan: Acute COPD exacerbation with ongoing r respiratory difficulties and cough and hypoxemic respiratory failure. The patient has been undergoing recurrent respite tract infection with gram-negative bacteria including Pseudomonas/stenotrophomonas and E. coli and gram-positive bacteria including MRSA. The patient was recently treated with Zyvox for his MRSA infection. 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 The bacteria is sensitive to Bactrim. The patient is symptomatic with excessive respiratory secretions and mucus production and ongoing shortness of breath. The chest x-ray from today showing bilateral lower lobe pulmonary infiltrate/atelectasis. Severe COPD with chronic hypoxic respiratory failure maintained on Trelegy Ellipta on outpatient basis in addition to DuoNeb updrafts Recurrent respiratory tract infection with Pseudomonas aeruginosa/stenotrophomonas and the patient has been maintained on inhaled tobramycin on outpatient basis every other month Previous history of MRSA lung infection treated with Zyvox Chronic stage III kidney disease Severe tracheobronchomalacia Previous bronchoscopies Previous history of a lung mass treated with SBRT and subsequent PET/CT showed no significant metabolic activity History of renal mass treated by cryotherapy Previous history of DVT and pulmonary embolism maintained on anticoagulation and the patient has factor V Leyden Hypertension Struct of sleep apnea Diverticulosis with previous history of diverticulitis and the patient has undergone previous colectomy and colostomy for colonic perforation. Chronic Anemia, anemia of chronic disease Plan Continue IV antibiotics and the patient is currently on Bactrim. I will be very cautious in treating this patient with Bactrim. Bactrim is already been started in the IV form. I am going to consult nephrology and infectious disease regarding possibility of other antibiotic treatment and close monitoring of the renal function to avoid any nephrotoxicity from use of Bactrim. Monitor renal function on daily basis Will check extended antibiogram regarding stenotrophomonas and ID is on the case Titrate oxygen flow to maintain saturation above 90% Continue using DuoNeb nebulizer treatments [id number] Allow the patient to utilize Trelegy Ellipta from home Home medication will be resumed Will continue to follow.
--- NOTE | 2023-05-08 19:11 | P.PN ---
Progress Note - Text Progress Note Date: 05/08/23 Chief Complaint: Cough Patient is a 77-year-old male with a past medical history of COPD on home oxygen 2 L as needed, , history of bronchial stent placement/removal, CKD stage III, history of lung cancer, history of DVT, hypertension anxiety and prior history of smoking presents underwent extensive lysis of adhesions, small bowel resection and repair of incisional hernia on 02/09/2022.reversal of ostomy and repair of incisional hernia done on November 14, 2022.-. Patient send repeated pneumonias. Also had bronchoscopy with lavages Patient has been having respiratory infection outpatient. Was given 10-day course of Zyvox. Then had a break. Underwent bronchoscopy with lavage on May 01, [address] Cortez. Cultures have come back showing Stenotrophomonas maltophilia. Based on the cultures patient be admitted for IV antibiotics. Started on IV Bactrim. ID consulted Patient is coughing of sputum. Appetite is fair. Short of breath. Some wheezing. Normally uses 2 L of oxygen at home as needed currently using 3 L at all times. May 07: Patient remains on IV Bactrim being followed by ID. Waiting on sensitivity. To minocycline. Cough. Some sputum production. Tolerating diet. Active Medications Acetaminophen (Acetaminophen Tab 325 Mg Tab) 650 mg PO Q6HR PRN PRN Reason: Mild Pain or Fever > 100.5 Albuterol/Ipratropium (Ipratropium-Albuterol 3 Ml Neb) 3 ml INHALATION RT-QID [facility] Last Admin: 05/08/23 16:18 Dose: 3 ml Albuterol/Ipratropium (Ipratropium-Albuterol 3 Ml Neb) 3 ml INHALATION RT-Q2H PRN PRN Reason: Shortness Of Breath Or Wheezing Allopurinol (Allopurinol 100 Mg Tab) 100 mg PO [facility] Last Admin: 05/07/23 21:14 Dose: 100 mg Alprazolam (Alprazolam 0.5 Mg Tab) 0.5 mg PO BID PRN PRN Reason: Anxiety Alprazolam (Alprazolam 0.5 Mg Tab) 0.5 mg PO [facility] Last Admin: 05/07/23 21:14 Dose: 0.5 mg Aspirin (Aspirin 81 Mg) 81 mg PO DAILY [facility] Last Admin: 05/08/23 09:39 Dose: 81 mg Budesonide (Budesonide 1 Mg/2 Ml Nebu) 1 mg INHALATION RT-BID [facility] Last Admin: 05/08/23 08:49 Dose: 1 mg Calcium Carbonate/Glycine (Calcium Carbonate 500 Mg Chewable) 1,000 mg PO Q4HR PRN PRN Reason: Dyspepsia Cholecalciferol (Cholecalciferol 25 Mcg (1000 Iu) Tablet) 75 mcg PO DAILY [facility] Last Admin: 05/08/23 09:38 Dose: 75 mcg Cyanocobalamin (Cyanocobalamin 500 Mcg Tab) 1,000 mcg PO DAILY [facility] Last Admin: 05/08/23 09:38 Dose: 1,000 mcg Darbepoetin Bobby (Darbepoetin Bobby 40 Mcg/0.4 Ml Syringe) 40 mcg SQ Q7D [facility] Last Admin: 05/08/23 13:38 Dose: 40 mcg Doxazosin Mesylate (Doxazosin 4 Mg Tab) 4 mg PO HS [facility] Last Admin: 05/07/23 21:14 Dose: 4 mg Enoxaparin Sodium (Enoxaparin 30 Mg/0.3 Ml Syringe) 30 mg SQ DAILY [facility] Last Admin: 05/08/23 09:39 Dose: 30 mg Folic Acid (Folic Acid 1 Mg Tab) 1 mg PO DAILY [facility] Last Admin: 05/08/23 09:38 Dose: 1 mg Formoterol Fumarate (Formoterol Fumarate 20 Mcg/2 Ml Nebu) 20 mcg INHALATION RT-BID [facility] Last Admin: 05/08/23 08:49 Dose: 20 mcg Furosemide (Furosemide 40 Mg Tab) 40 mg PO DAILY PRN PRN Reason: Edema Guaifenesin (Guaifenesin 600 Mg Tablet.Er) 600 mg PO QID [facility] Last Admin: 05/08/23 17:23 Dose: 600 mg Trimethoprim/Sulfamethoxazole (336 mg/ Dextrose/Water) 521 mls @ 333.33 mls/hr IVPB Q12H [facility] Last Admin: 05/08/23 13:38 Dose: 333.33 mls/hr Sodium Chloride (Saline 0.9%) 1,000 mls @ 50 mls/hr IV .Q20H [facility] Last Admin: 05/07/23 12:55 Dose: 50 mls/hr Lactobacillus Acidophilus (Lactobacillus Acidophilus/Pect 1 Each Capsule) 1 each PO DAILY [facility] Last Admin: 05/08/23 09:39 Dose: 1 each Lactulose (Lactulose 20 Gm/30 Ml Cup) 20 gm PO DAILY PRN PRN Reason: Constipation Magnesium Oxide (Magnesium Oxide 400 Mg Tab) 400 mg PO BID [facility] Last Admin: 05/08/23 09:38 Dose: 400 mg Metoprolol Tartrate (Metoprolol Tartrate 25 Mg Tab) 25 mg PO BID [facility] Last Admin: 05/08/23 09:39 Dose: 25 mg Montelukast Sodium (Montelukast 10 Mg Tab) 10 mg PO HS [facility] Last Admin: 05/07/23 21:14 Dose: 10 mg Naloxone HCl (Naloxone 0.4 Mg/Ml 1 Ml Vial) 0.2 mg IV Q2M PRN PRN Reason: Opioid Reversal Ondansetron HCl (Ondansetron 4 Mg/2 Ml Vial) 4 mg IVP Q8HR PRN PRN Reason: Nausea And Vomiting Polyethylene Glycol (Polyethylene Glycol 3350 17 Gm Powd.Pack) 17 gm PO DAILY PRN PRN Reason: Constipation Sodium Bicarbonate (Sodium Bicarbonate Tab 650 Mg Tab) 650 mg PO DAILY [facility] Last Admin: 05/08/23 09:39 Dose: 650 mg Sodium Zirconium Cyclosilicate (Sodium Zirconium Cyclosilicate 10 Gm Packet) 10 gm PO DAILY [facility] Last Admin: 05/08/23 09:40 Dose: Not Given Temazepam (Temazepam 15 Mg Cap) 15 mg PO HS PRN PRN Reason: Insomnia Physical examination: VITAL SIGNS: 97.9, 83, 15, 140 x 75, 95% on nasal cannula GENERAL: BMI 25, reclining in bed, a bit tired. EYES: Pupils equal. Conjunctiva wisam l. HEENT: External appearance of nose and ears normal, oral cavity grossly normal. NECK: JVD not raised; masses not palpable. HEART: First and second heart sounds are normal; some edema. LUNGS: Respiratory rate increased; diminished breath sounds, some scattered crackles. ABDOMEN: Soft, nontender, liver spleen not palpable, no masses palpable. PSYCH: Alert and oriented x3; mood and affect tired l. MUSCULOSKELETAL:No Clubbing/cyanosis;muscles-grossly intact. OA INVESTIGATIONS, reviewed in the clinical context: May 07: White count 4.0 hemoglobin 8.7 platelets 176 potassium 4 creatinine 2.1 May 07, 2023: White count 4.6 hemoglobin 10.9 platelets 184 potassium 4.3 BUN 49 creatinine 1.94 EKG tracing personally reviewed by me-right bundle bud block. Sinus rhythm. PVC. Previous labs: Sputum culture [May 01] Stenotrophomonas maltophilia Assessment and plan: -Pneumonia secondary to Stenotrophomonas maltophilia diagnosed on sputum culture following bronchoscopy with lavage on May [address] Dana Gonsalez. ID following -Acute COPD exacerbation in an ex-smoker: Peroformorist/Pulmicort nebulizer twice daily. Atrovent nebulizer. -Acute on chronic hypoxic respiratory failure On home oxygen 2 L at night. Currently on 3 L at all times Chronic kidney disease stage III baseline creatinine level -Creatinine 1.4 -Anemia of chronic kidney disease. Iron deficiency anemia. Has received IV iron in the past -Chronic hyperkalemia from underlying COPD Chronically on Lokelma -Reversal of colostomy and umbilical hernia repair on 11/14/2022. Wound care to continue Right upper lobe pulmonary nodule. Patient had PET scan and was treated with SBRT Obstructive sleep apnea not on CPAP Chronic hypoxic respiratory failure, from underlying COPD -on home oxygen 2 L at night -Chronic dysphagia On nectar thick liquids. Chin tuck History of DVT Essential Hypertension -Lopressor 25 mg twice a day Antibiotics per ID. Other medications to continue. Follow renal function. Past Medical History Past Medical History: Blood Disorder, Cancer, COPD, Deep Vein Thrombosis (DVT), GERD/Reflux, Hypertension, Pneumonia, Renal Disease Additional Past Medical History / Comment(s): currently exasperbated SOB and productive coughing,hx of pseudomonus lung infection, O2 @ 3L ATC, diverticulits, Factor V Leiden, hx of bronchial silicone stent now removed, PICC line in past now removed, past hx dialysis for kidney damage-was in the hospital for 1 month 2016-none currently, Stage 3 renal disease, Lung cancer - diagnosed and treated down in [place] 2019, colostomy for tx of hole in colon and bladder- later reversal History of Any Multi-Drug Resistant Organisms: MRSA, Other MDRO Date of last positivie culture/infection: 04/13/23 MRSA; 12/24/22 MDRO Pseudomonas MDRO Source:: Sputum-MDRO & MRSA Past Surgical History: Hernia Repair, Tonsillectomy Additional Past Surgical History / Comment(s): bronchoscopy, bronchial silicone stent, now removed, fatty tumor removed from chest area, COLONOSCOPY, alexandre cataract, incisional hernia repair, ileostomy/colostomy reversal Past Anesthesia/Blood Transfusion Reactions: Previous Problems w/ Anesthesia Additional Past Anesthesia/Blood Transfusion Reaction / Comment(s): "as turned black and blue from ETHER". FACTOR V LEIDEN. no problems w/ prior blood transfusion Past Psychological History: Anxiety Smoking Status: Former smoker
[2023-05-09] MEDS: IPRATROPIUM-ALBUTEROL 3 ML NEB INHALATION PRN (05:35)
[2023-05-09] MEDS: ALPRAZolam 0.5 MG TAB PO PRN (08:49)
[2023-05-09 10:37] LABS: BUN/Creat Ratio 15.32 Ratio (12.00-20.00); Blood Urea Nitrogen 33.7 mg/dL (9.0-27.0); Calcium 8.5 mg/dL (8.7-10.3); Carbon Dioxide 26.2 mmol/L (21.6-31.8); Chloride 102 mmol/L (96-109); Glucose 86 mg/dL (70-110); Potassium 4.4 mmol/L (3.5-5.5); Sodium 138 mmol/L (135-145)
--- NOTE | 2023-05-09 11:38 | P.PN ---
Subjective Patient is seen for follow-up for chronic kidney disease stage IIIb with baseline creatinine 1.6 to 1.9 mg/dL. He was admitted with respiratory symptoms for further treatment of pneumonia. Currently maintained on IV Bactrim. Serum creatinine at about 2.2 mg/dL. Good urine output Blood pressure is not low. Maintained on 3 L of oxygen via nasal cannula. Objective - Vital Signs Vital signs: Vital Signs Temp 98.3 F 05/09/23 07:40 Pulse 100 05/09/23 08:07 Resp 18 05/09/23 07:40 BP 162/73 05/09/23 07:40 Pulse Ox 96 05/09/23 07:46 FiO2 Intake & Output 05/08/23 05/09/23 05/09/23 18:59 06:59 18:59 Output Total 250 Balance -250 Output: Urine 250 Other: # Voids 2 - Exam Patient is awake, comfortable, no acute distress Examination of the heart S1 and S2 Examination of the lungs shows diffuse crackles with wheezing on and off Abdomen is nondistended Examination of lower extremities shows no significant edema [employer] exam grossly intact - Labs CBC & Chem 7: 05/08/23 06:15 05/09/23 06:49 Labs: Abnormal Lab Results - Last 24 Hours (Table) 05/09/23 Range/Units 06:49 BUN 33.7 H (9.0-27.0) mg/dL Creatinine 2.2 H (0.6-1.5) mg/dL Est GFR (CKD-EPI) 30 L (>=60) Calcium 8.5 L (8.7-10.3) mg/dL Assessment and Plan Assessment: 1. Acute kidney injury secondary to ATN secondary to infection and also from Bactrim which will impair creatinine secretion. Creatinine 2.2 today. Maintained on oral Lasix and IV fluids at 50 cc an hour. CAT scan from December 2022 showed no evidence of hydronephrosis. 2. Chronic kidney disease stage IIIb with baseline creatinine 1.6-1.9 secondary to nonrecovered ATN and multiple episodes of acute kidney injury. 3. Chronic hyperkalemia maintained on [facility] outpatient. 4. Recurrent episodes of pneumonia. Last culture from May 01, 2023 positive for stenotrophomonas maltophilia. Being followed by infectious disease and pulmonology. 5. Chronic diastolic CHF and moderate tricuspid regurgitation. 6. Anemia of chronic kidney disease. Plan: Hold Lasix Hold IV fluids as well Repeat labs in a.m. Continue with IV Bactrim.
--- NOTE | 2023-05-09 12:23 | P.PN ---
Subjective Progress Note Date: 05/09/23 This patient is 77 with known history of advanced COPD and severe tracheobronchomalacia in addition to her previous history of a lung mass that was treated by SBRT and previous history of renal cell mass she is by cryotherapy who has had several and recurrent respiratory tract infection with various gram-negative microorganisms including Pseudomonas aeruginosa and gram- positive organisms including MRSA. Looking at the various sputum samples that the patient has had, the patient had MRSA infection back in 02/17/2023 and subsequently on 04/13/2023 and the patient was treated on outpatient basis with Zyvox. As far as gram-negative infections, the patient had a combination of E. coli and stenotrophomonas on 03/10/2023. He continues to be symptomatic and the patient underwent a bronchoscopy endobronchial lavage on 05/01/2023 and there was recurrent infection with stenotrophomonas and this was resistant to Levaquin and Fortaz. It was sensitive to Bactrim. However, there was concern about patient by treatment with Bactrim as the patient is known to have chronic kidney disease, stage III. Based on that, the patient was asked to come into the hospital to be hospitalized for inpatient treatment. ID consultation will be obtained in regards to further advice for antibiotic management. The patient is currently on oxygen and he is on 3 L with a pulse ox of 98% he is afebrile. He has a congested cough and ongoing sputum production. No altered mentation. Appetite is good. No other specific complaints otherwise for now. In terms of his COPD, he has been maintained on Trelegy Ellipta on outpatient basis. His oxygen dependent over this past 6 months at least and the patient is having to use albuterol nebulized treatments [id number] as needed. He also uses inhaled tobramycin on outpatient basis regarding recurrent gram-negative and pseudomonal infections. This is being utilized every other month.the patient's most recent CAT scan of the chest abdomen and pelvis showed small bilateral pleural effusions and right lower lobe pulmonary nodule that has remained stable and the patient also has an ascending aortic aneurysm measuring 4.5 cm. This was done on 12/23/2022. The most recent echocardiogram that was done on 12/21/2022 showed a normal LV, elevated RVSP, moderate tricuspid regurgitation. On today's evaluation of 05/08/2023, the patient remains on IV Bactrim. The renal function is being monitored very closely. Blood work from today shows a Of 41 with a creatinine of 2.1. Sodium is at 140 with a potassium level of 4. The white cell count is 4 with a hemoglobin of 8.7. He remains on oxygen 3 L/min nasal cannula. He desaturates on room air oxygen. He is afebrile. He has a congested cough. A chest x-ray was also done today and it showed lower lobe pul monary infiltrates/atelectasis which are essentially chronic and the patient has a right upper lobe nodular density that was noted before. He is resting comfortably in bed. No other new complaints otherwise for now On today's evaluation of 05/09/2023, the patient is being seen for a follow-up. Creatinine is at 2.2 with a BUN of 30. The patient is receiving IV Bactrim. Still symptomatic. Still having cough and congestion and producing limited amount of mucus. Chest x-ray from yesterday showed lower lobe bilaterally pulmonary infiltrates and the patient's procalcitonin level is at 0.24. Remains on oxygen and he is still on 3 L O2 nasal cannula. No interval worsening shortness of breath. Nevertheless, no significant improvement. Objective - Vital Signs Vital signs: Vital Signs Temp 98.0 F 05/09/23 00:55 Pulse 100 05/09/23 08:07 Resp 18 05/09/23 00:55 BP 161/92 05/09/23 00:55 Pulse Ox 96 05/09/23 07:46 FiO2 Intake & Output 05/08/23 05/09/23 05/09/23 18:59 06:59 18:59 Output Total 250 Balance -250 Output: Urine 250 Other: # Voids 2 - Exam GENERAL EXAM: Alert, thin 77-year-old male, on 3 L O2 nasal cannula, comfortable in no apparent distress. HEAD: Normocephalic. EYES: Normal reaction of pupils, equal size. NOSE: Clear with pink turbinates. THROAT: No erythema or exudates. NECK: No masses, no JVD. CHEST: No chest wall deformity. LUNGS: Equal air entry with faint crackles in the bilateral bases. Diminished. CVS: S1 and S2 normal with no audible murmur, regular rhythm. ABDOMEN: Dressing/binder in place. No hepatosplenomegaly, normal bowel sounds, no guarding or rigidity. SPINE: No scoliosis or deformity SKIN: No rashes CENTRAL NERVOUS SYSTEM: No focal deficits, tone is normal in all 4 extremities. EXTREMITIES: There is no peripheral edema. No clubbing, no cyanosis. Peripheral pulses are intact. - Labs CBC & Chem 7: 05/08/23 06:15 05/09/23 06:49 Assessment and Plan Plan: Acute COPD exacerbation with ongoing r respiratory difficulties and cough and hypoxemic respiratory failure. The patient has been undergoing recurrent respite tract infection with gram-negative bacteria including Pseudomonas/steno trophomonas and E. coli and gram-positive bacteria including MRSA. The patient was recently treated with Zyvox for his MRSA infection. 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 The bacteria is sensitive to Bactrim. The patient is symptomatic with excessive respiratory secretions and mucus production and ongoing shortness of breath. The chest x-ray from today showing bilateral lower lobe pulmonary infiltrate/atelectasis. Severe COPD with chronic hypoxic respiratory failure maintained on Trelegy Ellipta on outpatient basis in addition to [facility] Recurrent respiratory tract infection with Pseudomonas aer uginosa/stenotrophomonas and the patient has been maintained on inhaled tobramycin on outpatient basis every other month Previous history of MRSA lung infection treated with Zyvox Chronic stage III kidney disease Severe tracheobronchomalacia Previous bronchoscopies Previous history of a lung mass treated with SBRT and subsequent PET/CT showed no significant metabolic activity History of renal mass treated by cryotherapy Previous history of DVT and pulmonary embolism maintained on anticoagulation and the patient has factor V Leyden Hypertension Struct of sleep apnea Diverticulosis with previous history of diverticulitis and the patient has undergone previous colectomy and colostomy for colonic perforation. Chronic Anemia, anemia of chronic disease Plan Continue IV antibiotics and the patient is currently on Bactrim. Creatinine remained stable I will be very cautious in treating this patient with Bactrim. Bactrim is already been started in the IV form. I am going to consult nephrology and infectious disease regarding possibility of other antibiotic treatment and close monitoring of the renal function to avoid any nephrotoxicity from use of Bactrim. Monitor renal function on daily basis Will check extended antibiogram regarding stenotrophomonas and ID is on the case Titrate oxygen flow to maintain saturation above 90%, currently on 2 L of oxygen by nasal cannula Continue using DuoNeb nebulizer treatments [id number] Allow the patient to utilize Trelegy Ellipta from home May consider another bronchoscopy for therapeutic airway suctioning to give the patient some symptomatic relief. This can be done probably by tomorrow if bench technician available. Will continue to follow.
[2023-05-09] MEDS: polyethylene glycoL 3350 17 GM POWD.PACK PO PRN (12:54)
--- NOTE | 2023-05-09 13:31 | P.PN ---
Subjective Progress Note Date: 05/09/23 Principal diagnosis: Reason for follow-up is stenotrophomonas pneumonia Patient is a 77-year-old male with a past medical history significant for COPD DVT reflux hypertension renal disease patient did have a history of recurrent Pseudomonas pneumonia recently did have a outpatient bronchoscopy done on 05/01/2023 that did grew stenotrophomonas sensitive only to Bactrim DS because of his kidney function patient has been admitted to hospital for treatment. On today's evaluation that is 05/09/2023,the patient remains to be afebrile, patient is on 3 L nasal cannula, was supplemental oxygen complaining of shortness of breath earlier this morning however some improvement now no chest pain denies any worsening cough or sputum production.Patient denies having any nausea or vomiting, no abdominal pain and no diarrhea has been reported Patient creatinine slightly up to 2.2 Objective - Vital Signs Vital signs: Vital Signs Temp 98.3 F 05/09/23 07:40 Pulse 98 05/09/23 11:43 Resp 18 05/09/23 07:40 BP 162/73 05/09/23 07:40 Pulse Ox 96 05/09/23 07:46 FiO2 Intake & Output 05/08/23 05/09/23 05/09/23 18:59 06:59 18:59 Output Total 250 Balance -250 Output: Urine 250 Other: # Voids 2 - Exam GENERAL DESCRIPTION: An elderly male up in bed in no distress RESPIRATORY SYSTEM: Unlabored breathing , coarse breath sounds bilaterally HEART: S1 S2 regular rate and rhythm , ABDOMEN: Soft , no tenderness EXTREMITIES: No edema feet - Labs CBC & Chem 7: 05/08/23 06:15 05/09/23 06:49 Labs: Abnormal Lab Results - Last 24 Hours (Table) 05/09/23 Range/Units 06:49 BUN 33.7 H (9.0-27.0) mg/dL Creatinine 2.2 H (0.6-1.5) mg/dL Est GFR (CKD-EPI) 30 L (>=60) Calcium 8.5 L (8.7-10.3) mg/dL Assessment and Plan (1) Infection due to Stenotrophomonas maltophilia Current Visit: Yes Status: Acute Code(s): A49.8 - OTHER BACTERIAL INFECTIONS OF UNSPECIFIED SITE SNOMED Code(s): 54727658 (2) Pneumonia Current Visit: No Status: Acute Code(s): J18.9 - PNEUMONIA, UNSPECIFIED ORGANISM SNOMED Code(s): 645426884 Plan: 1patient was in the hospital with increasing shortness of breath and cough in this patient who did have end-stage COPD and bronchiectasis and history of recurrent pneumonia with recent bronchoscopy culture positive for drug-resistant Stenotrophomonas maltophilia, patient did have a history of renal insufficiency and high risk of nephrotoxicity from Bactrim DS. 2 sensitivity for minocycline is currently pending 3patient did have elevated inflammatory markers and chest x-ray PA and lateral suggestive of pneumonia 4patient to continue with IV Bactrim DS, discussed with the pharmacist talk about adjustment of his Bactrim dose as creatinine is up to 2.2 and will monitor kidney function closely Dictation was produced using [employer] dictation software. please excuse any grammatical, word or spelling errors. Time with Patient: Less than 30
--- NOTE | 2023-05-09 14:00 | P.PN ---
Progress Note - Text Progress Note Date: 05/09/23 Chief Complaint: Cough Patient is a 77-year-old male with a past medical history of COPD on home oxygen 2 L as needed, , history of bronchial stent placement/removal, CKD stage III, history of lung cancer, history of DVT, hypertension anxiety and prior history of smoking presents underwent extensive lysis of adhesions, small bowel resection and repair of incisional hernia on 02/09/2022.reversal of ostomy and repair of incisional hernia done on November 14, 2022.-. Patient send repeated pneumonias. Also had bronchoscopy with lavages Patient has been having respiratory infection outpatient. Was given 10-day course of Zyvox. Then had a break. Underwent bronchoscopy with lavage on May 01, [address] Cortez. Cultures have come back showing Stenotrophomonas maltophilia. Based on the cultures patient be admitted for IV antibiotics. Started on IV Bactrim. ID consulted Patient is coughing of sputum. Appetite is fair. Short of breath. Some wheezing. Normally uses 2 L of oxygen at home as needed currently using 3 L at all times. May 07: Patient remains on IV Bactrim being followed by ID. Waiting on sensitivity. To minocycline. Cough. Some sputum production. Tolerating diet. May 08: Some cough. Little sputum. Creatinine 2.2. ID is waiting for sensitivity on minocycline. Remains on IV Bactrim. Eating well. Getting IV fluids being followed by nephrology. Active Medications Acetaminophen (Acetaminophen Tab 325 Mg Tab) 650 mg PO Q6HR PRN PRN Reason: Mild Pain or Fever > 100.5 Albuterol/Ipratropium (Ipratropium-Albuterol 3 Ml Neb) 3 ml INHALATION RT-QID [facility] Last Admin: 05/09/23 11:35 Dose: 3 ml Albuterol/Ipratropium (Ipratropium-Albuterol 3 Ml Neb) 3 ml INHALATION RT-Q2H PRN PRN Reason: Shortness Of Breath Or Wheezing Last Admin: 05/09/23 05:35 Dose: 3 ml Allopurinol (Allopurinol 100 Mg Tab) 100 mg PO HS [facility] Last Admin: 05/08/23 21:25 Dose: 100 mg Alprazolam (Alprazolam 0.5 Mg Tab) 0.5 mg PO BID PRN PRN Reason: Anxiety Last Admin: 05/09/23 08:49 Dose: 0.5 mg Alprazolam (Alprazolam 0.5 Mg Tab) 0.5 mg PO HS [facility] Last Admin: 05/08/23 21:24 Dose: 0.5 mg Aspirin (Aspirin 81 Mg) 81 mg PO DAILY [facility] Last Admin: 05/09/23 08:37 Dose: 81 mg Budesonide (Budesonide 1 Mg/2 Ml Nebu) 1 mg INHALATION RT-BID [facility] Last Admin: 05/09/23 07:43 Dose: 1 mg Calcium Carbonate/Glycine (Calcium Carbonate 500 Mg Chewable) 1,000 mg PO Q4HR PRN PRN Reason: Dyspepsia Cholecalciferol (Cholecalciferol 25 Mcg (1000 Iu) Tablet) 75 mcg PO DAILY [facility] Last Admin: 05/09/23 08:37 Dose: 75 mcg Cyanocobalamin (Cyanocobalamin 500 Mcg Tab) 1,000 mcg PO DAILY [facility] Last Admin: 05/09/23 08:37 Dose: 1,000 mcg Darbepoetin Bobby (Darbepoetin Bobby 40 Mcg/0.4 Ml Syringe) 40 mcg SQ Q7D [facility] Last Admin: 05/08/23 13:38 Dose: 40 mcg Doxazosin Mesylate (Doxazosin 4 Mg Tab) 4 mg PO HS [facility] Last Admin: 05/08/23 21:00 Dose: 4 mg Enoxaparin Sodium (Enoxaparin 30 Mg/0.3 Ml Syringe) 30 mg SQ DAILY [facility] Last Admin: 05/09/23 08:37 Dose: 30 mg Folic Acid (Folic Acid 1 Mg Tab) 1 mg PO DAILY [facility] Last Admin: 05/09/23 08:37 Dose: 1 mg Formoterol Fumarate (Formoterol Fumarate 20 Mcg/2 Ml Nebu) 20 mcg INHALATION RT-BID [facility] Last Admin: 05/09/23 07:43 Dose: 20 mcg Guaifenesin (Guaifenesin 600 Mg Tablet.Er) 600 mg PO QID [facility] Last Admin: 05/09/23 12:54 Dose: 600 mg Trimethoprim/Sulfamethoxazole (336 mg/ Dextrose/Water) 521 mls @ 333.33 mls/hr IVPB Q12H [facility] Last Admin: 05/09/23 13:50 Dose: 333.33 mls/hr Lactobacillus Acidophilus (Lactobacillus Acidophilus/Pect 1 Each Capsule) 1 each PO DAILY [facility] Last Admin: 05/09/23 08:37 Dose: 1 each Lactulose (Lactulose 20 Gm/30 Ml Cup) 20 gm PO DAILY PRN PRN Reason: Constipation Magnesium Oxide (Magnesium Oxide 400 Mg Tab) 400 mg PO BID [facility] Last Admin: 05/09/23 08:37 Dose: 400 mg Metoprolol Tartrate (Metoprolol Tartrate 25 Mg Tab) 25 mg PO BID [facility] Last Admin: 05/09/23 08:37 Dose: 25 mg Montelukast Sodium (Montelukast 10 Mg Tab) 10 mg PO HS [facility] Last Admin: 05/08/23 21:25 Dose: 10 mg Naloxone HCl (Naloxone 0.4 Mg/Ml 1 Ml Vial) 0.2 mg IV Q2M PRN PRN Reason: Opioid Reversal Ondansetron HCl (Ondansetron 4 Mg/2 Ml Vial) 4 mg IVP Q8HR PRN PRN Reason: Nausea And Vomiting Polyethylene Glycol (Polyethylene Glycol 3350 17 Gm Powd.Pack) 17 gm PO DAILY PRN PRN Reason: Constipation Last Admin: 05/09/23 12:54 Dose: 17 gm Sodium Bicarbonate (Sodium Bicarbonate Tab 650 Mg Tab) 650 mg PO DAILY [facility] Last Admin: 05/09/23 08:37 Dose: 650 mg Sodium Zirconium Cyclosilicate (Sodium Zirconium Cyclosilicate 10 Gm Packet) 10 gm PO DAILY [facility] Last Admin: 05/09/23 12:48 Dose: 10 gm Temazepam (Temazepam 15 Mg Cap) 15 mg PO HS PRN PRN Reason: Insomnia Physical examination: VITAL SIGNS: 98.3, 100, 18, 162 x 73, 96% on 3 L GENERAL: BMI 25, resting EYES: Pupils equal. Conjunctiva wisam l. HEENT: External appearance of nose and ears normal, oral cavity grossly normal. NECK: JVD not raised; masses not palpable. HEART: First and second heart sounds are normal; some edema. LUNGS: Respiratory rate increased; diminished breath sounds, some scattered crackles. ABDOMEN: Soft, nontender, liver spleen not palpable, no masses palpable. PSYCH: Alert and oriented x3; mood and affect tired l. MUSCULOSKELETAL:No Clubbing/cyanosis;muscles-grossly intact. OA INVESTIGATIONS, reviewed in the clinical context: May 08: Potassium 4.4 creatinine 2.2 May 07: White count 4.0 hemoglobin 8.7 platelets 176 potassium 4 creatinine 2.1 May 07, 2023: White count 4.6 hemoglobin 10.9 platelets 184 potassium 4.3 BUN 49 creatinine 1.94 EKG tracing personally reviewed by me-right bundle bud block. Sinus rhythm. PVC. Previous labs: Sputum culture [May 01] Stenotrophomonas maltophilia Assessment and plan: -Pneumonia secondary to Stenotrophomonas maltophilia diagnosed on sputum culture following bronchoscopy with lavage on May [address] Cortez IV Bactrim. ID following-pending decision if patient can be changed to minocycline based on sensitivity -Acute COPD exacerbation in an ex-smoker: Peroformorist/Pulmicort nebulizer twice daily. Atrovent nebulizer. -Acute on chronic hypoxic respiratory failure On home oxygen 2 L at night. Currently on 3 L at all times Chronic kidney disease stage III baseline creatinine level -Creatinine 1.4 -Anemia of chronic kidney disease. Iron deficiency anemia. Has received IV iron in the past -Chronic hyperkalemia from underlying COPD Chronically on Lokelma -Reversal of colostomy and umbilical hernia repair on 11/14/2022. Wound care to continue Right upper lobe pulmonary nodule. Patient had PET scan and was treated with SBRT Obstructive sleep apnea not on CPAP Chronic hypoxic respiratory failure, from underlying COPD -on home oxygen 2 L at night -Chronic dysphagia On nectar thick liquids. Chin tuck History of DVT Essential Hypertension -Lopressor 25 mg twice a day Discussed. Continue current medications. Past Medical History Past Medical History: Blood Disorder, Cancer, COPD, Deep Vein Thrombosis (DVT), GERD/Reflux, Hypertension, Pneumonia, Renal Disease Additional Past Medical History / Comment(s): currently exasperbated SOB and productive coughing,hx of pseudomonus lung infection, O2 @ 3L ATC, diverticulits, Factor V Leiden, hx of bronchial silicone stent now removed, PICC line in past now removed, past hx dialysis for kidney damage-was in the hospital for 1 month 2016-none currently, Stage 3 renal disease, Lung cancer - diagnosed and treated down in [place] 2018, colostomy for tx of hole in colon and bladder- later reversal History of Any Multi-Drug Resistant Organisms: MRSA, Other MDRO Date of last positivie culture/infection: 04/13/23 MRSA; 12/24/22 MDRO Pseudomonas MDRO Source:: Sputum-MDRO & MRSA Past Surgical History: Hernia Repair, Tonsillectomy Additional Past Surgical History / Comment(s): bronchoscopy, bronchial silicone stent, now removed, fatty tumor removed from chest area, COLONOSCOPY, alexandre cataract, incisional hernia repair, ileostomy/colostomy reversal Past Anesthesia/Blood Transfusion Reactions: Previous Problems w/ Anesthesia Additional Past Anesthesia/Blood Transfusion Reaction / Comment(s): "as turned black and blue from ETHER". FACTOR V LEIDEN. no problems w/ prior blood transfusion Past Psychological History: Anxiety Smoking Status: Former smoker
--- NOTE | 2023-05-10 11:21 | P.PN ---
Subjective Progress Note Date: 05/10/23 Principal diagnosis: Reason for follow-up is stenotrophomonas pneumonia Patient is a 77-year-old male with a past medical history significant for COPD DVT reflux hypertension renal disease patient did have a history of recurrent Pseudomonas pneumonia recently did have a outpatient bronchoscopy done on 05/01/2023 that did grew stenotrophomonas sensitive only to Bactrim DS because of his kidney function patient has been admitted to hospital for treatment. On today's evaluation that is 05/10/2023, the patient continues to be afebrile, the patient is on 3 L nasal cannula oxygen and is breathing slightly comfortably today, the Pt denies having any chest pain and no worsening cough or sputum production, the patient denies having any abdominal pain no vomiting or any diarrhea has been reported by the nursing staff. Labs pending from today Objective - Vital Signs Vital signs: Vital Signs Temp 98.7 F 05/10/23 07:26 Pulse 97 05/10/23 08:54 Resp 19 05/10/23 07:26 BP 120/70 05/10/23 07:26 Pulse Ox 95 05/10/23 08:34 FiO2 Intake & Output 05/09/23 05/10/23 05/10/23 18:59 06:59 18:59 Output Total 250 800 300 Balance -250 -800 -300 Output: Urine 250 800 300 Other: Voiding Method Toilet Urinal # Voids 3 - Exam GENERAL DESCRIPTION: An elderly male up in bed in no distress RESPIRATORY SYSTEM: Unlabored breathing , coarse breath sounds bilaterally HEART: S1 S2 regular rate and rhythm , ABDOMEN: Soft , no tenderness EXTREMITIES: No edema feet - Labs CBC & Chem 7: 05/08/23 06:15 05/09/23 06:49 Assessment and Plan (1) Infection due to Stenotrophomonas maltophilia Current Visit: Yes Status: Acute Code(s): A49.8 - OTHER BACTERIAL INFECTIONS OF UNSPECIFIED SITE SNOMED Code(s): 33854413 (2) Pneumonia Current Visit: No Status: Acute Code(s): J18.9 - PNEUMONIA, UNSPECIFIED ORGANISM SNOMED Code(s): 431178191 Plan: 1patient was in the hospital with increasing shortness of breath and cough in this patient who did have end-stage COPD and bronchiectasis and history of recurrent pneumonia with recent bronchoscopy culture positive for drug-resistant Stenotrophomonas maltophilia, patient did have a history of renal insufficiency and high risk of nephrotoxicity from Bactrim DS. 2 sensitivity for minocycline is currently pending 3patient did have elevated inflammatory markers and chest x-ray PA and lateral suggestive of pneumonia 4patient to continue with IV Bactrim DS, discussed with the pharmacist about his Bactrim dose if any further worsening of his creatinine today Bactrim dose will be adjusted and monitor clinical course closely Dictation was produced using [employer] dictation software. please excuse any grammatical, word or spelling errors. Time with Patient: Less than 30
--- NOTE | 2023-05-10 14:45 | P.PN ---
Subjective Patient is seen for follow-up for chronic kidney disease stage IIIb with baseline creatinine 1.6 to 1.9 mg/dL. He was admitted with respiratory symptoms for further treatment of pneumonia. Currently maintained on IV Bactrim. Serum creatinine at about 2.2 mg/dL. Good urine output Blood pressure is not low. Maintained on 3 L of oxygen via nasal cannula. Objective - Vital Signs Vital signs: Vital Signs Temp 98.7 F 05/10/23 07:26 Pulse 72 05/10/23 12:16 Resp 19 05/10/23 08:00 BP 120/70 05/10/23 07:26 Pulse Ox 95 05/10/23 08:34 FiO2 Intake & Output 05/09/23 05/10/23 05/10/23 18:59 06:59 18:59 Output Total 250 800 300 Balance -250 -800 -300 Output: Urine 250 800 300 Other: Voiding Method Toilet Urinal # Voids 3 - Exam Patient is awake, comfortable, no acute distress Examination of the heart S1 and S2 Examination of the lungs shows diffuse crackles with wheezing on and off Abdomen is nondistended Examination of lower extremities shows trace edema FLOOR HAND exam grossly intact - Labs CBC & Chem 7: 05/08/23 06:15 05/09/23 06:49 Assessment and Plan Assessment: 1. Acute kidney injury secondary to ATN secondary to infection and also from Bactrim which will impair creatinine secretion. Creatinine 2.2. Maintained on oral Lasix and IV fluids at 50 cc an hour. CAT scan from December 2022 showed no evidence of hydronephrosis. 2. Chronic kidney disease stage IIIb with baseline creatinine 1.6-1.9 secondary to nonrecovered ATN and multiple episodes of acute kidney injury. 3. Chronic hyperkalemia maintained on [facility] outpatient. 4. Recurrent episodes of pneumonia. Last culture from May 01, 2023 positive for stenotrophomonas maltophilia. Being followed by infectious disease and pulmonology. 5. Chronic diastolic CHF and moderate tricuspid regurgitation. 6. Anemia of chronic kidney disease. Plan: Continue off of IV fluids and diuretics Repeat labs in a.m. Continue with IV Bactrim.
--- NOTE | 2023-05-10 16:24 | P.PN ---
Progress Note - Text Progress Note Date: 05/10/23 Chief Complaint: Cough Patient is a 77-year-old male with a past medical history of COPD on home oxygen 2 L as needed, , history of bronchial stent placement/removal, CKD stage III, history of lung cancer, history of DVT, hypertension anxiety and prior history of smoking presents underwent extensive lysis of adhesions, small bowel resection and repair of incisional hernia on 02/09/2022.reversal of ostomy and repair of incisional hernia done on November 14, 2022.-. Patient send repeated pneumonias. Also had bronchoscopy with lavages Patient has been having respiratory infection outpatient. Was given 10-day course of Zyvox. Then had a break. Underwent bronchoscopy with lavage on May 01, [address] Cortez. Cultures have come back showing Stenotrophomonas maltophilia. Based on the cultures patient be admitted for IV antibiotics. Started on IV Bactrim. ID consulted Patient is coughing of sputum. Appetite is fair. Short of breath. Some wheezing. Normally uses 2 L of oxygen at home as needed currently using 3 L at all times. May 07: Patient remains on IV Bactrim being followed by ID. Waiting on sensitivity. To minocycline. Cough. Some sputum production. Tolerating diet. May 08: Some cough. Little sputum. Creatinine 2.2. ID is waiting for sensitivity on minocycline. Remains on IV Bactrim. Eating well. Getting IV fluids being followed by nephrology. May 09: Not much change clinically. Continues on continue IV Bactrim. Pending further input from ID depending upon sensitivity. Tolerating diet. Discussed with Dr. Cortez. Possible bronchial lavage by Dr. Howard. Tomorrow Active Medications Acetaminophen (Acetaminophen Tab 325 Mg Tab) 650 mg PO Q6HR PRN PRN Reason: Mild Pain or Fever > 100.5 Albuterol/Ipratropium (Ipratropium-Albuterol 3 Ml Neb) 3 ml INHALATION RT-QID [facility] Last Admin: 05/10/23 15:43 Dose: 3 ml Albuterol/Ipratropium (Ipratropium-Albuterol 3 Ml Neb) 3 ml INHALATION RT-Q2H PRN PRN Reason: Shortness Of Breath Or Wheezing Last Admin: 05/09/23 05:35 Dose: 3 ml Allopurinol (Allopurinol 100 Mg Tab) 100 mg PO HS [facility] Last Admin: 05/09/23 21:05 Dose: 100 mg Alprazolam (Alprazolam 0.5 Mg Tab) 0.5 mg PO BID PRN PRN Reason: Anxiety Last Admin: 05/10/23 10:14 Dose: 0.5 mg Alprazolam (Alprazolam 0.5 Mg Tab) 0.5 mg PO HS [facility] Last Admin: 05/09/23 21:05 Dose: 0.5 mg Aspirin (Aspirin 81 Mg) 81 mg PO DAILY [facility] Last Admin: 05/10/23 10:09 Dose: 81 mg Budesonide (Budesonide 1 Mg/2 Ml Nebu) 1 mg INHALATION RT-BID [facility] Last Admin: 05/10/23 08:32 Dose: 1 mg Calcium Carbonate/Glycine (Calcium Carbonate 500 Mg Chewable) 1,000 mg PO Q4HR PRN PRN Reason: Dyspepsia Cholecalciferol (Cholecalciferol 25 Mcg (1000 Iu) Tablet) 75 mcg PO DAILY [facility] Last Admin: 05/10/23 10:09 Dose: 75 mcg Cyanocobalamin (Cyanocobalamin 500 Mcg Tab) 1,000 mcg PO DAILY [facility] Last Admin: 05/10/23 10:10 Dose: 1,000 mcg Darbepoetin Bobby (Darbepoetin Obbby 40 Mcg/0.4 Ml Syringe) 40 mcg SQ Q7D [facility] Last Admin: 05/08/23 13:38 Dose: 40 mcg Doxazosin Mesylate (Doxazosin 4 Mg Tab) 4 mg PO HS [facility] Last Admin: 05/09/23 21:05 Dose: 4 mg Enoxaparin Sodium (Enoxaparin 30 Mg/0.3 Ml Syringe) 30 mg SQ DAILY [facility] Last Admin: 05/10/23 10:09 Dose: 30 mg Folic Acid (Folic Acid 1 Mg Tab) 1 mg PO DAILY [facility] Last Admin: 05/10/23 10:09 Dose: 1 mg Formoterol Fumarate (Formoterol Fumarate 20 Mcg/2 Ml Nebu) 20 mcg INHALATION RT-BID [facility] Last Admin: 05/10/23 08:32 Dose: 20 mcg Guaifenesin (Guaifenesin 600 Mg Tablet.Er) 600 mg PO QID [facility] Last Admin: 05/10/23 13:54 Dose: 600 mg Trimethoprim/Sulfamethoxazole (336 mg/ Dextrose/Water) 521 mls @ 333.33 mls/hr IVPB Q12H [facility] Last Admin: 05/10/23 00:50 Dose: 333.33 mls/hr Lactobacillus Acidophilus (Lactobacillus Acidophilus/Pect 1 Each Capsule) 1 each PO DAILY [facility] Last Admin: 05/10/23 10:09 Dose: 1 each Lactulose (Lactulose 20 Gm/30 Ml Cup) 20 gm PO DAILY PRN PRN Reason: Constipation Magnesium Oxide (Magnesium Oxide 400 Mg Tab) 400 mg PO BID [facility] Last Admin: 05/10/23 10:10 Dose: 400 mg Metoprolol Tartrate (Metoprolol Tartrate 25 Mg Tab) 25 mg PO BID [facility] Last Admin: 05/10/23 10:10 Dose: 25 mg Montelukast Sodium (Montelukast 10 Mg Tab) 10 mg PO HS [facility] Last Admin: 05/09/23 21:06 Dose: 10 mg Naloxone HCl (Naloxone 0.4 Mg/Ml 1 Ml Vial) 0.2 mg IV Q2M PRN PRN Reason: Opioid Reversal Ondansetron HCl (Ondansetron 4 Mg/2 Ml Vial) 4 mg IVP Q8HR PRN PRN Reason: Nausea And Vomiting Polyethylene Glycol (Polyethylene Glycol 3350 17 Gm Powd.Pack) 17 gm PO DAILY PRN PRN Reason: Constipation Last Admin: 05/10/23 13:48 Dose: 17 gm Sodium Bicarbonate (Sodium Bicarbonate Tab 650 Mg Tab) 650 mg PO DAILY [facility] Last Admin: 05/10/23 10:10 Dose: 650 mg Sodium Zirconium Cyclosilicate (Sodium Zirconium Cyclosilicate 10 Gm Packet) 10 gm PO DAILY [facility] Last Admin: 05/10/23 10:11 Dose: 10 gm Temazepam (Temazepam 15 Mg Cap) 15 mg PO HS PRN PRN Reason: Insomnia Physical examination: VITAL SIGNS: 98.7, 69, 19, 136 x 67, 97% on 4 L GENERAL: Sitting at the edge of the bed EYES: Pupils equal. Conjunctiva wisam l. HEENT: External appearance of nose and ears normal, oral cavity grossly normal. NECK: JVD not raised; masses not palpable. HEART: First and second heart sounds are normal; some edema. LUNGS: Respiratory rate increased; diminished breath sounds, some scattered crackles. ABDOMEN: Soft, nontender, liver spleen not palpable, no masses palpable. PSYCH: Alert and oriented x3; mood and affect tired l. MUSCULOSKELETAL:No Clubbing/cyanosis;muscles-grossly intact. OA INVESTIGATIONS, reviewed in the clinical context: May 08: Potassium 4.4 creatinine 2.2 May 07: White count 4.0 hemoglobin 8.7 platelets 176 potassium 4 creatinine 2.1 May 07, 2023: White count 4.6 hemoglobin 10.9 platelets 184 potassium 4.3 BUN 49 creatinine 1.94 EKG tracing personally reviewed by me-right bundle bud block. Sinus rhythm. PVC. Previous labs: Sputum culture [May 01] Stenotrophomonas maltophilia Assessment and plan: -Pneumonia secondary to Stenotrophomonas maltophilia diagnosed on sputum culture following bronchoscopy with lavage on May [address] Cortez IV Bactrim. ID following-pending decision if patient can be changed to minocycline based on sensitivity -Acute COPD exacerbation in an ex-smoker: Peroformorist/Pulmicort nebulizer twice daily. Atrovent nebulizer. -Acute on chronic hypoxic respiratory failure On home oxygen 2 L at night. Currently on 3 L at all times Chronic kidney disease stage III baseline creatinine level -Creatinine 1.4 -Anemia of chronic kidney disease. Iron deficiency anemia. Has received IV iron in the past -Chronic hyperkalemia from underlying COPD Chronically on Lokelma -Reversal of colostomy and umbilical hernia repair on 11/14/2022. Wound care to continue Right upper lobe pulmonary nodule. Patient had PET scan and was treated with SBRT Obstructive sleep apnea not on CPAP Chronic hypoxic respiratory failure, from underlying COPD -on home oxygen 2 L at night -Chronic dysphagia On nectar thick liquids. Chin tuck History of DVT Essential Hypertension -Lopressor 25 mg twice a day Possible bronchial lavage tomorrow. Discussed with Dr. Cortez. Repeat labs. Past Medical History Past Medical History: Blood Disorder, Cancer, COPD, Deep Vein Thrombosis (DVT), GERD/Reflux, Hypertension, Pneumonia, Renal Disease Additional Past Medical History / Comment(s): currently exasperbated SOB and productive coughing,hx of pseudomonus lung infection, O2 @ 3L ATC, diverticulits, Factor V Leiden, hx of bronchial silicone stent now removed, PICC line in past now removed, past hx dialysis for kidney damage-was in the hospital for 1 month 2016-none currently, Stage 3 renal disease, Lung cancer - diagnosed and treated down in [place] 2019, colostomy for tx of hole in colon and bladder- later reversal History of Any Multi-Drug Resistant Organisms: MRSA, Other MDRO Date of last positivie culture/infection: 04/13/23 MRSA; 12/24/22 MDRO Pseudomonas MDRO Source:: Sputum-MDRO & MRSA Past Surgical History: Hernia Repair, Tonsillectomy Additional Past Surgical History / Comment(s): bronchoscopy, bronchial silicone stent, now removed, fatty tumor removed from chest area, COLONOSCOPY, alexandre cataract, incisional hernia repair, ileostomy/colostomy reversal Past Anesthesia/Blood Transfusion Reactions: Previous Problems w/ Anesthesia Additional Past Anesthesia/Blood Transfusion Reaction / Comment(s): "as turned black and blue from ETHER". FACTOR V LEIDEN. no problems w/ prior blood transfusion Past Psychological History: Anxiety Smoking Status: Former smoker
[2023-05-10 17:36] LABS: African American GFR (CKD) 28 (>60 ml/min/1.73 sqM); Non-African American GFR(CKD) 25 (>60 ml/min/1.73 sqM)
--- NOTE | 2023-05-10 17:37 | P.PN ---
Subjective Progress Note Date: 05/10/23 This patient is 77 with known history of advanced COPD and severe tracheobronchomalacia in addition to her previous history of a lung mass that was treated by SBRT and previous history of renal cell mass she is by cryotherapy who has had several and recurrent respiratory tract infection with various gram-negative microorganisms including Pseudomonas aeruginosa and gram- positive organisms including MRSA. Looking at the various sputum samples that the patient has had, the patient had MRSA infection back in 02/17/2023 and subsequently on 04/13/2023 and the patient was treated on outpatient basis with Zyvox. As far as gram-negative infections, the patient had a combination of E. coli and stenotrophomonas on 03/10/2023. He continues to be symptomatic and the patient underwent a bronchoscopy endobronchial lavage on 05/01/2023 and there was recurrent infection with stenotrophomonas and this was resistant to Levaquin and Fortaz. It was sensitive to Bactrim. However, there was concern about patient by treatment with Bactrim as the patient is known to have chronic kidney disease, stage III. Based on that, the patient was asked to come into the hospital to be hospitalized for inpatient treatment. ID consultation will be obtained in regards to further advice for antibiotic management. The patient is currently on oxygen and he is on 3 L with a pulse ox of 98% he is afebrile. He has a congested cough and ongoing sputum production. No altered mentation. Appetite is good. No other specific complaints otherwise for now. In terms of his COPD, he has been maintained on Trelegy Ellipta on outpatient basis. His oxygen dependent over this past 6 months at least and the patient is having to use albuterol nebulized treatments [id number] as needed. He also uses inhaled tobramycin on outpatient basis regarding recurrent gram-negative and pseudomonal infections. This is being utilized every other month.the patient's most recent CAT scan of the chest abdomen and pelvis showed small bilateral pleural effusions and right lower lobe pulmonary nodule that has remained stable and the patient also has an ascending aortic aneurysm measuring 4.5 cm. This was done on 12/23/2022. The most recent echocardiogram that was done on 12/21/2022 showed a normal LV, elevated RVSP, moderate tricuspid regurgitation. On today's evaluation of 05/08/2023, the patient remains on IV Bactrim. The renal function is being monitored very closely. Blood work from today shows a Of 41 with a creatinine of 2.1. Sodium is at 140 with a potassium level of 4. The white cell count is 4 with a hemoglobin of 8.7. He remains on oxygen 3 L/min nasal cannula. He desaturates on room air oxygen. He is afebrile. He has a congested cough. A chest x-ray was also done today and it showed lower lobe pul monary infiltrates/atelectasis which are essentially chronic and the patient has a right upper lobe nodular density that was noted before. He is resting comfortably in bed. No other new complaints otherwise for now On today's evaluation of 05/09/2023, the patient is being seen for a follow-up. Creatinine is at 2.2 with a BUN of 30. The patient is receiving IV Bactrim. Still symptomatic. Still having cough and congestion and producing limited amount of mucus. Chest x-ray from yesterday showed lower lobe bilaterally pulmonary infiltrates and the patient's procalcitonin level is at 0.24. Remains on oxygen and he is still on 3 L O2 nasal cannula. No interval worsening shortness of breath. Nevertheless, no significant improvement. On 05/10/2023, the patient denies having any major improvement in his overall respiratory status. Remains on IV Bactrim. Creatinine is at 2.2. No new co mplaints otherwise for now. Remains on 3 L of oxygen by nasal cannula. No pleurisy or hemoptysis or chest pain. Afebrile. ID is on the case. Feels weak and lethargic and no altered mentation. No other new complaints otherwise for now. Objective - Vital Signs Vital signs: Vital Signs Temp 98.7 F 05/10/23 14:39 Pulse 70 05/10/23 16:03 Resp 19 05/10/23 14:39 BP 136/67 05/10/23 14:39 Pulse Ox 97 05/10/23 14:39 FiO2 Intake & Output 05/09/23 05/10/23 05/10/23 18:59 06:59 18:59 Output Total 250 800 300 Balance -250 -800 -300 Output: Urine 250 800 300 Other: Voiding Method Toilet Urinal # Voids 3 - Exam GENERAL EXAM: Alert, thin 77-year-old male, on 3 L O2 nasal cannula, comfortable in no apparent distress. HEAD: Normocephalic. EYES: Normal reaction of pupils, equal size. NOSE: Clear with pink turbinates. THROAT: No erythema or exudates. NECK: No masses, no JVD. CHEST: No chest wall deformity. LUNGS: Equal air entry with faint crackles in the bilateral bases. Diminished. CVS: S1 and S2 normal with no audible murmur, regular rhythm. ABDOMEN: Dressing/binder in place. No hepatosplenomegaly, normal bowel sounds, no guarding or rigidity. SPINE: No scoliosis or deformity SKIN: No rashes CENTRAL NERVOUS SYSTEM: No focal deficits, tone is normal in all 4 extremities. EXTREMITIES: There is no peripheral edema. No clubbing, no cyanosis. Peripheral pulses are intact. - Labs CBC & Chem 7: 05/08/23 06:15 05/09/23 06:49 Assessment and Plan Plan: Acute COPD exacerbation with ongoing r respiratory difficulties and cough and hypoxemic respiratory failure. The patient has been undergoing recurrent respite tract infection with gram-negative bacteria including Pseudomonas/stenotrophomonas and E. coli and gram-positive bacteria including MRSA. The patient was recently treated with Zyvox for his MRSA infection. 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 The bacteria is sensitive to Bactrim. The patient is symptomatic with excessive respiratory secretions and mucus production and ongoing shortness of breath. The chest x-ray from today showing bilateral lower lobe pulmonary infiltrate/atelectasis. Severe COPD with chronic hypoxic respiratory failure maintained on Trelegy Ellipta on outpatient basis in addition to [facility] Recurrent respiratory tract infection with Pseudomonas aeruginosa/stenotrophomonas and the patient has been maintained on inhaled tobramycin on outpatient basis every other month Previous history of MRSA lung infection treated with Zyvox Chronic stage III kidney disease Severe tracheobronchomalacia Previous bronchoscopies Previous history of a lung mass treated with SBRT and subsequent PET/CT showed no significant metabolic activity History of renal mass treated by cryotherapy Previous history of DVT and pulmonary embolism maintained on anticoagulation and the patient has factor V Leyden Hypertension Struct of sleep apnea Diverticulosis with previous history of diverticulitis and the patient has undergone previous colectomy and colostomy for colonic perforation. Chronic Anemia, anemia of chronic disease Plan Will continue same treatment and monitoring the renal function Continue IV antibiotics and the patient is currently on Bactrim. Creatinine remained stable, slight elevated at 2.2 I will be very cautious in treating this patient with Bactrim. Bactrim is already been started in the IV form. I am going to consult nephrology and infectious disease regarding possibility of other antibiotic treatment and close monitoring of the renal function to avoid any nephrotoxicity from use of Bactrim. Monitor renal function on daily basis Will check extended antibiogram regarding stenotrophomonas and ID is on the case Titrate oxygen flow to maintain saturation above 90%, currently on 2 L of oxygen by nasal cannula Continue using DuoNeb nebulizer treatments [id number] Allow the patient to utilize Trelegy Ellipta from home May consider another bronchoscopy for therapeutic airway suctioning to give the patient some symptomatic relief. This can be done probably by tomorrow if accredited pharmacy technician available. Will continue to follow.
[2023-05-11 08:01] LABS: African American GFR (CKD) 29 (>60 ml/min/1.73 sqM); Anion Gap 4 mmol/L; Blood Urea Nitrogen 36 mg/dL (9-20); Calcium 8.4 mg/dL (8.4-10.2); Carbon Dioxide 27 mmol/L (22-30); Chloride 103 mmol/L (98-107); Glucose 84 mg/dL (74-99); Non-African American GFR(CKD) 25 (>60 ml/min/1.73 sqM); Potassium 5.1 mmol/L (3.5-5.1); Sodium 134 mmol/L (137-145)
--- NOTE | 2023-05-11 12:06 | P.PN ---
Subjective Patient is seen for follow-up for chronic kidney disease stage IIIb with baseline creatinine 1.6 to 1.9 mg/dL. He was admitted with respiratory symptoms for further treatment of pneumonia. Currently maintained on IV Bactrim. Serum creatinine at about 2.2 -2.4mg/dL. Good urine output Blood pressure is not low. Maintained on 3 L of oxygen via nasal cannula. Objective - Vital Signs Vital signs: Vital Signs Temp 98.0 F 05/11/23 07:45 Pulse 88 05/11/23 12:04 Resp 18 05/11/23 07:45 BP 128/72 05/11/23 07:45 Pulse Ox 97 05/11/23 08:32 FiO2 Intake & Output 05/10/23 05/11/23 05/11/23 18:59 06:59 18:59 Intake Total 200 Output Total 300 1000 Balance -300 -800 Intake: Oral 200 Output: Urine 300 1000 Other: Voiding Method Toilet Urinal # Voids 1 - Exam Patient is awake, comfortable, no acute distress Examination of the heart S1 and S2 Examination of the lungs shows diffuse crackles with wheezing on and off Abdomen is nondistended Examination of lower extremities shows 1+ edema [employer] exam grossly intact - Labs CBC & Chem 7: 05/08/23 06:15 05/11/23 06:33 Labs: Abnormal Lab Results - Last 24 Hours (Table) 05/10/23 05/11/23 Range/Units 17:05 06:33 Sodium 134 L (137-145) mmol/L BUN 36 H (9-20) mg/dL Creatinine 2.42 H 2.41 H (0.66-1.25) mg/dL Assessment and Plan Assessment: 1. Acute kidney injury secondary to ATN secondary to infection and also from Bactrim which will impair creatinine secretion. Creatinine 2.2. Maintained on oral Lasix and IV fluids at 50 cc an hour. CAT scan from December 2022 showed no evidence of hydronephrosis. 2. Chronic kidney disease stage IIIb with baseline creatinine 1.6-1.9 secondary to nonrecovered ATN and multiple episodes of acute kidney injury. 3. Chronic hyperkalemia maintained on Lokelil outpatient. 4. Recurrent episodes of pneumonia. Last culture from May 01, 2023 positive for stenotrophomonas maltophilia. Being followed by infectious disease and pulmonology. 5. Chronic diastolic CHF and moderate tricuspid regurgitation. 6. Anemia of chronic kidney disease. Plan: Continue off of IV fluids and diuretics Repeat labs in a.m. Continue with IV Bactrim.
--- NOTE | 2023-05-11 14:51 | P.PN ---
Subjective Progress Note Date: 05/11/23 This patient is 77 with known history of advanced COPD and severe tracheobronchomalacia in addition to her previous history of a lung mass that was treated by SBRT and previous history of renal cell mass she is by cryotherapy who has had several and recurrent respiratory tract infection with various gram-negative microorganisms including Pseudomonas aeruginosa and gram- positive organisms including MRSA. Looking at the various sputum samples that the patient has had, the patient had MRSA infection back in 02/17/2023 and subsequently on 04/13/2023 and the patient was treated on outpatient basis with Z yvox. As far as gram-negative infections, the patient had a combination of E. coli and stenotrophomonas on 03/10/2023. He continues to be symptomatic and the patient underwent a bronchoscopy endobronchial lavage on 05/01/2023 and there was recurrent infection with stenotrophomonas and this was resistant to Levaquin and Fortaz. It was sensitive to Bactrim. However, there was concern about patient by treatment with Bactrim as the patient is known to have chronic kidney disease, stage III. Based on that, the patient was asked to come into the hospital to be hospitalized for inpatient treatment. ID consultation will be obtained in regards to further advice for antibiotic management. The patient is currently on oxygen and he is on 3 L with a pulse ox of 98% he is afebrile. He has a congested cough and ongoing sputum production. No altered mentation. Appetite is good. No other specific complaints otherwise for now. In terms of his COPD, he has been maintained on Trelegy Ellipta on outpatient basis. His oxygen dependent over this past 6 months at least and the patient is having to use albuterol nebulized treatments [id number] as needed. He also uses inhaled tobramycin on outpatient basis regarding recurrent gram-negative and pseudomonal infections. This is being utilized every other month.the patient's most recent CAT scan of the chest abdomen and pelvis showed small bilateral pleural effusions and right lower lobe pulmonary nodule that has remained stable and the patient also has an ascending aortic aneurysm measuring 4.5 cm. This was done on 12/23/2022. The most recent echocardiogram that was done on 12/21/2022 showed a normal LV, elevated RVSP, moderate tricuspid regurgitation. On today's evaluation of 05/08/2023, the patient remains on IV Bactrim. The renal function is being monitored very closely. Blood work from today shows a Of 41 with a creatinine of 2.1. Sodium is at 140 with a potassium level of 4. The white cell count is 4 with a hemoglobin of 8.7. He remains on oxygen 3 L/min nasal cannula. He desaturates on room air oxygen. He is afebrile. He has a congested cough. A chest x-ray was also done today and it showed lower lobe pulmonary infiltrates/atelectasis which are essentially chronic and the patient has a right upper lobe nodular density that was noted before. He is resting comfortably in bed. No other new complaints otherwise for now On today's evaluation of 05/09/2023, the patient is being seen for a follow-up. Creatinine is at 2.2 with a BUN of 30. The patient is receiving IV Bactrim. Still symptomatic. Still having cough and congestion and producing limited amount of mucus. Chest x-ray from yesterday showed lower lobe bilaterally pulmonary infiltrates and the patient's procalcitonin level is at 0.24. Remains on oxygen and he is still on 3 L O2 nasal cannula. No interval worsening shortness of breath. Nevertheless, no significant improvement. On 05/10/2023, the patient denies having any major improvement in his overall respiratory status. Remains on IV Bactrim. Creatinine is at 2.2. No new comp laints otherwise for now. Remains on 3 L of oxygen by nasal cannula. No pleurisy or hemoptysis or chest pain. Afebrile. ID is on the case. Feels weak and lethargic and no altered mentation. No other new complaints otherwise for now. The patient is seen today July 11, 2019 for follow-up on the regular medical floor. He is resting in bed. Awake and alert in no acute distress. Continues with a loose productive cough. Maintaining O2 saturations in the upper 90s on 4 L/min per nasal cannula. Sodium 134. Potassium 5.1. Bicarb 27. BUN 36. Creatinine 2.41. Most recent bronchoscopy lavage cultures on 05/01/2023 were positive for stenotrophomonas maltophilia. He is currently on Bactrim and Zosyn. Infectious diseases following. He remains on DuoNeb ventilations, Pulmicort and Perforomist inhalations, Solu-Medrol. Lovenox for DVT prophylaxis. Objective - Vital Signs Vital signs: Vital Signs Temp 98.0 F 05/11/23 07:45 Pulse 92 05/11/23 12:13 Resp 18 05/11/23 07:45 BP 128/72 05/11/23 07:45 Pulse Ox 97 05/11/23 08:32 FiO2 Intake & Output 05/10/23 05/11/23 05/11/23 18:59 06:59 18:59 Intake Total 200 Output Total 300 1000 Balance -300 -800 Intake: Oral 200 Output: Urine 300 1000 Other: Voiding Method Toilet Urinal # Voids 1 - Exam GENERAL EXAM: Alert, pleasant, thin 77-year-old male, on 4 L nasal cannula, comfortable in no apparent distress. HEAD: Normocephalic. EYES: Normal reaction of pupils, equal size. NOSE: Clear with pink turbinates. THROAT: No erythema or exudates. NECK: No masses, no JVD. CHEST: No chest wall deformity. LUNGS: Equal air entry with faint crackles in the bilateral bases. Diminished. CVS: S1 and S2 normal with no audible murmur, regular rhythm. ABDOMEN: Dressing/binder in place. No hepatosplenomegaly, normal bowel sounds, no guarding or rigidity. SPINE: No scoliosis or deformity SKIN: No rashes CENTRAL NERVOUS SYSTEM: No focal deficits, tone is normal in all 4 extremities. EXTREMITIES: There is no peripheral edema. No clubbing, no cyanosis. Periph eral pulses are intact. - Labs CBC & Chem 7: 05/08/23 06:15 05/11/23 06:33 Labs: Abnormal Lab Results - Last 24 Hours (Table) 05/10/23 05/11/23 Range/Units 17:05 06:33 Sodium 134 L (137-145) mmol/L BUN 36 H (9-20) mg/dL Creatinine 2.42 H 2.41 H (0.66-1.25) mg/dL Assessment and Plan Assessment: Acute COPD exacerbation with ongoing r respiratory difficulties and cough and hypoxemic respiratory failure. The patient has been undergoing recurrent respiratory tract infection with gram-negative bacteria including Pseudomonas/stenotrophomonas and E. coli and gram-positive bacteria including MRSA. The patient was recently treated with Zyvox for his MRSA infection. 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 The bacteria is sensitive to Bactrim. The patient is symptomatic with excessive respiratory secretions and mucus production and ongoing shortness of breath. The chest x-ray from today showing bilateral lower lobe pulmonary infiltrate/atelectasis. Severe COPD with chronic hypoxic respiratory failure maintained on Trelegy Ellipta on outpatient basis in addition to DuoNeb [facility] Recurrent respiratory tract infection with Pseudomonas aeruginosa/stenotrophomonas and the patient has been maintained on inhaled tobramycin on outpatient basis every other month Previous history of MRSA lung infection treated with Zyvox Chronic stage III kidney disease Severe tracheobronchomalacia Previous bronchoscopies Previous history of a lung mass treated with SBRT and subsequent PET/CT showed no significant metabolic activity History of renal mass treated by cryotherapy Previous history of DVT and pulmonary embolism maintained on anticoagulation and the patient has factor V Leyden Hypertension Struct of sleep apnea Diverticulosis with previous history of diverticulitis and the patient has undergone previous colectomy and colostomy for colonic perforation. Chronic anemia of chronic disease Plan: The patient was seen and evaluated Labs and medications reviewed Continue the current treatment plan Remains on Bactrim and Zosyn per ID services Renal function being monitored closely Titrate the FiO2 as tolerated Continue bronchodilators We will continue to follow I have personally seen and examined the patient, performed the documentation and the assessment and plan as written. Number of minutes spent on the visit: 10.
[2023-05-11] MEDS: PIPERACILLIN-TAZOBACTAM 3.375 GM in SODIUM CHLORIDE 0.9% 100 ML IVPB SCH (15:02)
--- NOTE | 2023-05-11 16:37 | P.PN ---
Progress Note - Text Progress Note Date: 05/11/23 Chief Complaint: Cough Patient is a 77-year-old male with a past medical history of COPD on home oxygen 2 L as needed, , history of bronchial stent placement/removal, CKD stage III, history of lung cancer, history of DVT, hypertension anxiety and prior history of smoking presents underwent extensive lysis of adhesions, small bowel resection and repair of incisional hernia on 02/09/2022.reversal of ostomy and repair of incisional hernia done on November 14, 2022.-. Patient send repeated pneumonias. Also had bronchoscopy with lavages Patient has been having respiratory infection outpatient. Was given 10-day course of Zyvox. Then had a break. Underwent bronchoscopy with lavage on May 01, [address] Cortez. Cultures have come back showing Stenotrophomonas maltophilia. Based on the cultures patient be admitted for IV antibiotics. Started on IV Bactrim. ID consulted Patient is coughing of sputum. Appetite is fair. Short of breath. Some wheezing. Normally uses 2 L of oxygen at home as needed currently using 3 L at all times. May 07: Patient remains on IV Bactrim being followed by ID. Waiting on sensitivity. To minocycline. Cough. Some sputum production. Tolerating diet. May 08: Some cough. Little sputum. Creatinine 2.2. ID is waiting for sensitivity on minocycline. Remains on IV Bactrim. Eating well. Getting IV fluids being followed by nephrology. May 09: Not much change clinically. Continues on continue IV Bactrim. Pending further input from ID depending upon sensitivity. Tolerating diet. Discussed with Dr. Cortez. Possible bronchial lavage by Dr. Howard. Tomorrow May 10: Remains on IV Bactrim. Creatinine up to 2.41. Being followed by nephrology and ID. At this point no plan for lavage per pulmonary. Active Medications Acetaminophen (Acetaminophen Tab 325 Mg Tab) 650 mg PO Q6HR PRN PRN Reason: Mild Pain or Fever > 100.5 Albuterol/Ipratropium (Ipratropium-Albuterol 3 Ml Neb) 3 ml INHALATION RT-QID BIJU Last Admin: 05/11/23 15:48 Dose: 3 ml Albuterol/Ipratropium (Ipratropium-Albuterol 3 Ml Neb) 3 ml INHALATION RT-Q2H PRN PRN Reason: Shortness Of Breath Or Wheezing Last Admin: 05/09/23 05:35 Dose: 3 ml Allopurinol (Allopurinol 100 Mg Tab) 100 mg PO HS [facility] Last Admin: 05/10/23 20:18 Dose: 100 mg Alprazolam (Alprazolam 0.5 Mg Tab) 0.5 mg PO BID PRN PRN Reason: Anxiety Last Admin: 05/10/23 10:14 Dose: 0.5 mg Alprazolam (Alprazolam 0.5 Mg Tab) 0.5 mg PO HS [facility] Last Admin: 05/10/23 20:18 Dose: 0.5 mg Aspirin (Aspirin 81 Mg) 81 mg PO DAILY [facility] Last Admin: 05/11/23 08:34 Dose: 81 mg Budesonide (Budesonide 1 Mg/2 Ml Nebu) 1 mg INHALATION RT-BID [facility] Last Admin: 05/11/23 08:31 Dose: 1 mg Calcium Carbonate/Glycine (Calcium Carbonate 500 Mg Chewable) 1,000 mg PO Q4HR PRN PRN Reason: Dyspepsia Cholecalciferol (Cholecalciferol 25 Mcg (1000 Iu) Tablet) 75 mcg PO DAILY [facility] Last Admin: 05/11/23 08:34 Dose: 75 mcg Cyanocobalamin (Cyanocobalamin 500 Mcg Tab) 1,000 mcg PO DAILY [facility] Last Admin: 05/11/23 08:34 Dose: 1,000 mcg Darbepoetin Bobby (Darbepoetin Bobby 40 Mcg/0.4 Ml Syringe) 40 mcg SQ Q7D [facility] Last Admin: 05/08/23 13:38 Dose: 40 mcg Doxazosin Mesylate (Doxazosin 4 Mg Tab) 4 mg PO HS [facility] Last Admin: 05/10/23 20:18 Dose: 4 mg Enoxaparin Sodium (Enoxaparin 30 Mg/0.3 Ml Syringe) 30 mg SQ DAILY [facility] Last Admin: 05/11/23 08:34 Dose: 30 mg Folic Acid (Folic Acid 1 Mg Tab) 1 mg PO DAILY [facility] Last Admin: 05/11/23 08:34 Dose: 1 mg Formoterol Fumarate (Formoterol Fumarate 20 Mcg/2 Ml Nebu) 20 mcg INHALATION RT-BID [facility] Last Admin: 05/11/23 08:31 Dose: 20 mcg Guaifenesin (Guaifenesin 600 Mg Tablet.Er) 600 mg PO QID [facility] Last Admin: 05/11/23 13:25 Dose: 600 mg Trimethoprim/Sulfamethoxazole (336 mg/ Dextrose/Water) 521 mls @ 333.33 mls/hr IVPB Q12H [facility] Stop: 05/12/23 00:00 Last Admin: 05/11/23 13:25 Dose: 333.33 mls/hr Piperacillin Sod/Tazobactam (Sod 3.375 gm/ Sodium Chloride) 100 mls @ 25 mls/hr IVPB Q8H [facility]; Protocol Last Admin: 05/11/23 15:02 Dose: 25 mls/hr Trimethoprim/Sulfamethoxazole (208 mg/ Dextrose/Water) 513 mls @ 333.33 mls/hr IVPB Q12H [facility] Lactobacillus Acidophilus (Lactobacillus Acidophilus/Pect 1 Each Capsule) 1 each PO DAILY [facility] Last Admin: 05/11/23 08:34 Dose: 1 each Lactulose (Lactulose 20 Gm/30 Ml Cup) 20 gm PO DAILY PRN PRN Reason: Constipation Magnesium Oxide (Magnesium Oxide 400 Mg Tab) 400 mg PO BID [facility] Last Admin: 05/11/23 08:34 Dose: 400 mg Metoprolol Tartrate (Metoprolol Tartrate 25 Mg Tab) 25 mg PO BID [facility] Last Admin: 05/11/23 08:34 Dose: 25 mg Montelukast Sodium (Montelukast 10 Mg Tab) 10 mg PO HS [facility] Last Admin: 05/10/23 20:18 Dose: 10 mg Naloxone HCl (Naloxone 0.4 Mg/Ml 1 Ml Vial) 0.2 mg IV Q2M PRN PRN Reason: Opioid Reversal Ondansetron HCl (Ondansetron 4 Mg/2 Ml Vial) 4 mg IVP Q8HR PRN PRN Reason: Nausea And Vomiting Polyethylene Glycol (Polyethylene Glycol 3350 17 Gm Powd.Pack) 17 gm PO DAILY PRN PRN Reason: Constipation Last Admin: 05/11/23 13:27 Dose: 17 gm Sodium Bicarbonate (Sodium Bicarbonate Tab 650 Mg Tab) 650 mg PO DAILY [facility] Last Admin: 05/11/23 08:33 Dose: 650 mg Sodium Zirconium Cyclosilicate (Sodium Zirconium Cyclosilicate 10 Gm Packet) 10 gm PO DAILY [facility] Last Admin: 05/11/23 08:35 Dose: 10 gm Temazepam (Temazepam 15 Mg Cap) 15 mg PO HS PRN PRN Reason: Insomnia Physical examination: VITAL SIGNS: 97.9, 71, 20, 115 x 75, 96% on 4 L GENERAL: Sitting at the edge of the bed EYES: Pupils equal. Conjunctiva wisam l. HEENT: External appearance of nose and ears normal, oral cavity grossly normal. NECK: JVD not raised; masses not palpable. HEART: First and second heart sounds are normal; some edema. LUNGS: Respiratory rate increased; diminished breath sounds, some scattered crackles. ABDOMEN: Soft, nontender, liver spleen not palpable, no masses palpable. PSYCH: Alert and oriented x3; mood and affect tired l. MUSCULOSKELETAL:No Clubbing/cyanosis;muscles-grossly intact. OA INVESTIGATIONS, reviewed in the clinical context: May 10: Sodium 134 potassium 5.1 BUN 36 creatinine 2.41 May 08: Potassium 4.4 creatinine 2.2 May 07: White count 4.0 hemoglobin 8.7 platelets 176 potassium 4 creatinine 2.1 May 07, 2023: White count 4.6 hemoglobin 10.9 platelets 184 potassium 4.3 BUN 49 creatinine 1.94 EKG tracing personally reviewed by me-right bundle bud block. Sinus rhythm. PVC. Previous labs: Sputum culture [May 01] Stenotrophomonas maltophilia Assessment and plan: -Pneumonia secondary to Stenotrophomonas maltophilia diagnosed on sputum culture following bronchoscopy with lavage on May [address] Dana REYES Bactrim. ID following-pending decision if patient can be changed to minocycline based on sensitivity -Acute COPD exacerbation in an ex-smoker: Peroformorist/Pulmicort nebulizer twice daily. Atrovent nebulizer. -Acute on chronic hypoxic respiratory failure On home oxygen 2 L at night. Currently on 3 L at all times Chronic kidney disease stage III baseline creatinine level -Creatinine 1.4 -Anemia of chronic kidney disease. Iron deficiency anemia. Has received IV iron in the past -Chronic hyperkalemia from underlying COPD Chronically on Lokelma -Reversal of colostomy and umbilical hernia repair on 11/14/2022. Wound care to continue Right upper lobe pulmonary nodule. Patient had PET scan and was treated with SBRT Obstructive sleep apnea not on CPAP Chronic hypoxic respiratory failure, from underlying COPD -on home oxygen 2 L at night -Chronic dysphagia On nectar thick liquids. Chin tuck History of DVT Essential Hypertension -Lopressor 25 mg twice a day No lavage per pulmonary. Await ID to change antibiotics. Based on cultures. Past Medical History Past Medical History: Blood Disorder, Cancer, COPD, Deep Vein Thrombosis (DVT), GERD/Reflux, Hypertension, Pneumonia, Renal Disease Additional Past Medical History / Comment(s): currently exasperbated SOB and productive coughing,hx of pseudomonus lung infection, O2 @ 3L ATC, diverticulits, Factor V Leiden, hx of bronchial silicone stent now removed, PICC line in past now removed, past hx dialysis for kidney damage-was in the hospital for 1 month 2016-none currently, Stage 3 renal disease, Lung cancer - diagnosed and treated down in [place] 2018, colostomy for tx of hole in colon and bladder- later reversal History of Any Multi-Drug Resistant Organisms: MRSA, Other MDRO Date of last positivie culture/infection: 04/13/23 MRSA; 12/24/22 MDRO Pseudomonas MDRO Source:: Sputum-MDRO & MRSA Past Surgical History: Hernia Repair, Tonsillectomy Additional Past Surgical History / Comment(s): bronchoscopy, bronchial silicone stent, now removed, fatty tumor removed from chest area, COLONOSCOPY, alexandre cataract, incisional hernia repair, ileostomy/colostomy reversal Past Anesthesia/Blood Transfusion Reactions: Previous Problems w/ Anesthesia Additional Past Anesthesia/Blood Transfusion Reaction / Comment(s): "as infant turned black and blue from ETHER". FACTOR V LEIDEN. no problems w/ prior blood transfusion Past Psychological History: Anxiety Smoking Status: Former smoker
--- NOTE | 2023-05-11 22:09 | P.PN ---
Subjective Progress Note Date: 05/11/23 Principal diagnosis: Reason for follow-up is stenotrophomonas pneumonia Patient is a 77-year-old male with a past medical history significant for COPD DVT reflux hypertension renal disease patient did have a history of recurrent Pseudomonas pneumonia recently did have a outpatient bronchoscopy done on 05/01/2023 that did grew stenotrophomonas sensitive only to Bactrim DS because of his kidney function patient has been admitted to hospital for treatment. On today's evaluation that is 05/11/2023 the patient remains to be afebrile patient still complaining of increasing shortness of breath and did have a cough and is bringing up some purulent sputum patient is currently on 4 L nasal cannula oxygen and mention overall not feeling well no nausea vomiting no abdominal pain and no diarrhea. Patient creatinine is up to 2.41 Objective - Vital Signs Vital signs: Vital Signs Temp 98.0 F 05/11/23 07:45 Pulse 92 05/11/23 12:13 Resp 18 05/11/23 07:45 BP 128/72 05/11/23 07:45 Pulse Ox 97 05/11/23 08:32 FiO2 Intake & Output 05/10/23 05/11/23 05/11/23 18:59 06:59 18:59 Intake Total 200 Output Total 300 1000 Balance -300 -800 Intake: Oral 200 Output: Urine 300 1000 Other: Voiding Method Toilet Urinal # Voids 1 - Exam GENERAL DESCRIPTION: An elderly male up in bed in no distress RESPIRATORY SYSTEM: Unlabored breathing , coarse breath sounds bilaterally HEART: S1 S2 regular rate and rhythm , ABDOMEN: Soft , no tenderness EXTREMITIES: No edema feet - Labs CBC & Chem 7: 05/08/23 06:15 05/11/23 06:33 Labs: Abnormal Lab Results - Last 24 Hours (Table) 05/10/23 05/11/23 Range/Units 17:05 06:33 Sodium 134 L (137-145) mmol/L BUN 36 H (9-20) mg/dL Creatinine 2.42 H 2.41 H (0.66-1.25) mg/dL Assessment and Plan (1) Infection due to Stenotrophomonas maltophilia Current Visit: Yes Status: Acute Code(s): A49.8 - OTHER BACTERIAL INFECTIONS OF UNSPECIFIED SITE SNOMED Code(s): 85023299 (2) Pneumonia Current Visit: No Status: Acute Code(s): J18.9 - PNEUMONIA, UNSPECIFIED ORGANISM SNOMED Code(s): 025740667 Plan: 1patient was in the hospital with increasing shortness of breath and cough in this patient who did have end-stage COPD and bronchiectasis and history of recurrent pneumonia with recent bronchoscopy culture positive for drug-resistant Stenotrophomonas maltophilia, patient did have a history of renal insufficiency and high risk of nephrotoxicity from Bactrim DS. 2 sensitivity for minocycline is currently pending 3patient did have elevated inflammatory markers and chest x-ray PA and lateral suggestive of pneumonia 4patient did have worsening of his kidney function creatinine is up to 2.42 discussed with the pharmacist dose of Bactrim DS has been cut back patient resp iratory symptoms continue to get worse and did not show any improvement with the Bactrim DS with a question of possible dealing with a different pathogen this has been discussed in detail with the patient we will try to obtain another sputum sample check his inflammatory markers and empirically add Zosyn prognosis remains to be guarded Dictation was produced using [employer] dictation software. please excuse any grammatical, word or spelling errors. Time with Patient: Greater than 30
[2023-05-12] MEDS: DEXTROSE 5% IVPB SCH (01:25)
[2023-05-12] MEDS: SULFAMETHOX TMP IVPB SCH (01:25)
[2023-05-12] MEDS: WATER IVPB SCH (01:25)
[2023-05-12 07:04] LABS: African American GFR (CKD) 29 (>60 ml/min/1.73 sqM); C Reactive Protein 4.4 mg/dL (<1.0); Non-African American GFR(CKD) 25 (>60 ml/min/1.73 sqM)
[2023-05-12 11:20] LABS: Basophils # (A) 0.01 X 10*3/uL (0.00-0.10); Basophils % (A) 0.2 %; Eosinophils # (A) 0.09 X 10*3/uL (0.04-0.35); HCT 25.1 % (39.6-50.0); HGB 7.9 g/dL (13.0-17.0); Lymphocytes # (A) 0.54 X 10*3/uL (0.90-5.00); Lymphocytes % (A) 11.9 %; MCH 29.8 pg (27.0-32.0); MCHC 31.5 g/dL (32.0-37.0); MCV 94.7 FL (80.0-97.0); Mean Platelet Volume 11.5 FL (9.5-12.2); Monocytes # (A) 0.52 X 10*3/uL (0.20-1.00); Monocytes % (A) 11.5 %; NRBC Per 100 WBC 0 X 10*3/uL (0.00-0.01); Neutrophils # (A) 3.34 X 10*3/uL (1.80-7.70); Platelet Count 158 X 10*3/uL (140-440); RBC 2.65 X 10*6/uL (4.40-5.60); RDW 17.2 % (11.5-14.5); WBC 4.52 X 10*3/uL (4.50-10.00)
[2023-05-12] MEDS: FUROSEMIDE 10 MG/ML 4 ML VIAL IV STA (11:36)
[2023-05-12] MEDS: methylPREDNISolone SOD SUCCI 125 MG/2 ML VIAL IV SCH (12:28)
--- NOTE | 2023-05-12 13:11 | P.PN ---
Subjective Patient is seen for follow-up for chronic kidney disease stage IIIb with baseline creatinine 1.6 to 1.9 mg/dL. He was admitted with respiratory symptoms for further treatment of pneumonia. Currently maintained on IV Bactrim. Serum creatinine at about 2.2 -2.4mg/dL. Good urine output Blood pressure is not low. Maintained on 3 L of oxygen via nasal cannula. Complaining of increased shortness of breath today. Objective - Vital Signs Vital signs: Vital Signs Temp 98.3 F 05/12/23 06:58 Pulse 80 05/12/23 12:43 Resp 21 05/12/23 08:20 BP 109/55 05/12/23 06:58 Pulse Ox 99 05/12/23 06:58 FiO2 Intake & Output 05/11/23 05/12/23 05/12/23 18:59 06:59 18:59 Intake Total 320 Output Total 1500 1125 Balance -1180 -1125 Intake: Oral 320 Output: Urine 1500 1125 Other: Voiding Method Toilet Urinal # Voids 1 - Exam Patient is awake, comfortable, no acute distress Examination of the heart S1 and S2 Examination of the lungs shows diffuse crackles with wheezing on and off Abdomen is nondistended Examination of lower extremities shows 1+ edema BSS SOLUTION ARCHITECT exam grossly intact - Labs CBC & Chem 7: 05/12/23 06:33 05/12/23 06:33 Labs: Abnormal Lab Results - Last 24 Hours (Table) 05/12/23 05/12/23 05/12/23 Range/Units 06:33 06:33 06:33 RBC 2.65 L (4.40-5.60) X 10*6/uL Hgb 7.9 L (13.0-17.0) g/dL Hct 25.1 L (39.6-50.0) % MCHC 31.5 L (32.0-37.0) g/dL RDW 17.2 H (11.5-14.5) % Lymphocytes # 0.54 L (0.90-5.00) X 10*3/uL Creatinine 2.38 H (0.66-1.25) mg/dL C-Reactive Protein 4.4 H (<1.0) mg/dL Procalcitonin 0.30 H (0.02-0.09) ng/mL Assessment and Plan Assessment: 1. Acute kidney injury secondary to ATN secondary to infection and also from Bactrim which will impair creatinine secretion. Creatinine 2.2-2.4 Maintained on oral Lasix and IV fluids at 50 cc an hour. CAT scan from December 2022 showed no evidence of hydronephrosis. 2. Chronic kidney disease stage IIIb with baseline creatinine 1.6-1.9 secondary to nonrecovered ATN and multiple episodes of acute kidney injury. 3. Chronic hyperkalemia maintained on Lokelhi outpatient. 4. Recurrent episodes of pneumonia. Last culture from May 01, 2023 positive for stenotrophomonas maltophilia. Being followed by infectious disease and pulmonology. 5. Chronic diastolic CHF and moderate tricuspid regurgitation. 6. Anemia of chronic kidney disease. 7. Volume overload Plan: Lasix IV 1 Reevaluate volume status in a.m. Patient may need to start low-dose scheduled diuretics Repeat labs in a.m. Continue with IV Bactrim.
--- NOTE | 2023-05-12 14:39 | P.PN ---
Subjective Progress Note Date: 05/12/23 This patient is 77 with known history of advanced COPD and severe tracheobronchomalacia in addition to her previous history of a lung mass that was treated by SBRT and previous history of renal cell mass she is by cryotherapy who has had several and recurrent respiratory tract infection with various gram-negative microorganisms including Pseudomonas aeruginosa and gram- positive organisms including MRSA. Looking at the various sputum samples that the patient has had, the patient had MRSA infection back in 02/17/2023 and subsequently on 04/13/2023 and the patient was treated on outpatient basis with Z yvox. As far as gram-negative infections, the patient had a combination of E. coli and stenotrophomonas on 03/10/2023. He continues to be symptomatic and the patient underwent a bronchoscopy endobronchial lavage on 05/01/2023 and there was recurrent infection with stenotrophomonas and this was resistant to Levaquin and Fortaz. It was sensitive to Bactrim. However, there was concern about patient by treatment with Bactrim as the patient is known to have chronic kidney disease, stage III. Based on that, the patient was asked to come into the hospital to be hospitalized for inpatient treatment. ID consultation will be obtained in regards to further advice for antibiotic management. The patient is currently on oxygen and he is on 3 L with a pulse ox of 98% he is afebrile. He has a congested cough and ongoing sputum production. No altered mentation. Appetite is good. No other specific complaints otherwise for now. In terms of his COPD, he has been maintained on Trelegy Ellipta on outpatient basis. His oxygen dependent over this past 6 months at least and the patient is having to use albuterol nebulized treatments [id number] as needed. He also uses inhaled tobramycin on outpatient basis regarding recurrent gram-negative and pseudomonal infections. This is being utilized every other month.the patient's most recent CAT scan of the chest abdomen and pelvis showed small bilateral pleural effusions and right lower lobe pulmonary nodule that has remained stable and the patient also has an ascending aortic aneurysm measuring 4.5 cm. This was done on 12/23/2022. The most recent echocardiogram that was done on 12/21/2022 showed a normal LV, elevated RVSP, moderate tricuspid regurgitation. On today's evaluation of 05/08/2023, the patient remains on IV Bactrim. The renal function is being monitored very closely. Blood work from today shows a Of 41 with a creatinine of 2.1. Sodium is at 140 with a potassium level of 4. The white cell count is 4 with a hemoglobin of 8.7. He remains on oxygen 3 L/min nasal cannula. He desaturates on room air oxygen. He is afebrile. He has a congested cough. A chest x-ray was also done today and it showed lower lobe pulmonary infiltrates/atelectasis which are essentially chronic and the patient has a right upper lobe nodular density that was noted before. He is resting comfortably in bed. No other new complaints otherwise for now On today's evaluation of 05/09/2023, the patient is being seen for a follow-up. Creatinine is at 2.2 with a BUN of 30. The patient is receiving IV Bactrim. Still symptomatic. Still having cough and congestion and producing limited amount of mucus. Chest x-ray from yesterday showed lower lobe bilaterally pulmonary infiltrates and the patient's procalcitonin level is at 0.24. Remains on oxygen and he is still on 3 L O2 nasal cannula. No interval worsening shortness of breath. Nevertheless, no significant improvement. On 05/10/2023, the patient denies having any major improvement in his overall respiratory status. Remains on IV Bactrim. Creatinine is at 2.2. No new comp laints otherwise for now. Remains on 3 L of oxygen by nasal cannula. No pleurisy or hemoptysis or chest pain. Afebrile. ID is on the case. Feels weak and lethargic and no altered mentation. No other new complaints otherwise for now. The patient is seen today May 11, 2023 for follow-up on the regular medical floor. He is resting in bed. Awake and alert in no acute distress. Continues with a loose productive cough. Maintaining O2 saturations in the upper 90s on 4 L/min per nasal cannula. Sodium 134. Potassium 5.1. Bicarb 27. BUN 36. Creatinine 2.41. Most recent bronchoscopy lavage cultures on 05/01/2023 were positive for stenotrophomonas maltophilia. He is currently on Bactrim and Zosyn. Infectious diseases following. He remains on DuoNeb ventilations, Pulmicort and Perforomist inhalations, Solu-Medrol. Lovenox for DVT prophylaxis. The patient is seen today May 12, 2023 in follow-up on the regular medical floor. He is currently sitting up at the bedside. Awake and alert in no acute distress. He has ongoing issues with shortness of breath mostly on exertion. S till with lots of cough and congestion. He is maintaining O2 saturations up to 100% on 5 L high flow nasal cannula. He is afebrile. Hemodynamically stable. White count 4.5. Hemoglobin 7.9. Platelets 158. BUN 2.38. C-reactive protein 4.4. Procalcitonin 0.30. He remains on DuoNeb inhalations, Pulmicort and Perforomist inhalation, Singulair, Mucinex and Solu-Medrol. Lovenox for DVT prophylaxis. He remains on antibiotics in the form of Zosyn and Bactrim Objective - Vital Signs Vital signs: Vital Signs Temp 99.1 F 05/12/23 13:08 Pulse 80 05/12/23 13:08 Resp 20 05/12/23 13:08 BP 118/65 05/12/23 13:08 Pulse Ox 100 05/12/23 13:08 FiO2 Intake & Output 05/11/23 05/12/23 05/12/23 18:59 06:59 18:59 Intake Total 320 Output Total 1500 1125 Balance -1180 -1125 Intake: Oral 320 Output: Urine 1500 1125 Other: Voiding Method Toilet Urinal # Voids 1 - Exam GENERAL EXAM: Alert, pleasant, thin 77-year-old male, sitting up at the bedside, on 5 L nasal cannula, comfortable in no apparent distress. HEAD: Normocephalic. EYES: Normal reaction of pupils, equal size. NOSE: Clear with pink turbinates. THROAT: No erythema or exudates. NECK: No masses, no JVD. CHEST: No chest wall deformity. LUNGS: Equal air entry with faint crackles in the bilateral bases scattered rhonchi. Diminished. CVS: S1 and S2 normal with no audible murmur, regular rhythm. ABDOMEN: Dressing/binder in place. No hepatosplenomegaly, normal bowel sounds, no guarding or rigidity. SPINE: No scoliosis or deformity SKIN: No rashes CENTRAL NERVOUS SYSTEM: No focal deficits, tone is normal in all 4 extremities. EXTREMITIES: There is no peripheral edema. No clubbing, no cyanosis. Peripheral pulses are intact. - Labs CBC & Chem 7: 05/12/23 06:33 05/12/23 06:33 Labs: Abnormal Lab Results - Last 24 Hours (Table) 05/12/23 05/12/23 05/12/23 Range/Units 06:33 06:33 06:33 RBC 2.65 L (4.40-5.60) X 10*6/uL Hgb 7.9 L (13.0-17.0) g/dL Hct 25.1 L (39.6-50.0) % MCHC 31.5 L (32.0-37.0) g/dL RDW 17.2 H (11.5-14.5) % Lymphocytes # 0.54 L (0.90-5.00) X 10*3/uL Creatinine 2.38 H (0.66-1.25) mg/dL C-Reactive Protein 4.4 H (<1.0) mg/dL Procalcitonin 0.30 H (0.02-0.09) ng/mL Assessment and Plan Assessment: Acute COPD exacerbation with ongoing respiratory difficulties and cough and hypoxemic respiratory failure. The patient has recurrent respiratory tract infection with gram-negative bacteria including Pseudomonas/stenotrophomonas and E. coli and gram-positive bacteria including MRSA. The patient was recently treated with Zyvox for his MRSA infection. 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 The patient is symptomatic with excessive respiratory secretions and mucus production and ongoing shortness of breath. The chest x- ray showing bilateral lower lobe pulmonary infiltrate/atelectasis. He remains on Zosyn and Bactrim. Severe COPD with chronic hypoxic respiratory failure maintained on Treleg[facility] on outpatient basis [facility] Recurrent respiratory tract infection with Pseudomonas aeruginosa/stenotrophomonas and the patient has been maintained on inhaled tobramycin on outpatient basis every other month Previous history of MRSA lung infection treated with Zyvox Chronic stage III kidney disease Severe tracheobronchomalacia Previous multiple bronchoscopies Previous history of a lung mass treated with SBRT and subsequent PET/CT showed no significant metabolic activity History of renal mass treated by cryotherapy Previous history of DVT and pulmonary embolism maintained on anticoagulation and the patient has factor V Leyden Hypertension Obstructive sleep apnea Diverticulosis with previous history of diverticulitis and the patient has undergone previous colectomy and colostomy for colonic perforation Chronic anemia of chronic disease Plan: The patient was seen and evaluated Labs and medications reviewed Remains on Bactrim and Zosyn Renal function being monitored closely Nephrology remains on the case Continue bronchodilators, steroids, Mucinex Titrate the FiO2 as tolerated We will continue to follow I have personally seen and examined the patient, performed the documentation and the assessment and plan as written. Number of minutes spent on the visit: 10.
--- NOTE | 2023-05-12 14:50 | P.PN ---
Subjective Progress Note Date: 05/12/23 Principal diagnosis: Reason for follow-up is stenotrophomonas pneumonia Patient is a 77-year-old male with a past medical history significant for COPD DVT reflux hypertension renal disease patient did have a history of recurrent Pseudomonas pneumonia recently did have a outpatient bronchoscopy done on 05/01/2023 that did grew stenotrophomonas sensitive only to Bactrim DS because of his kidney function patient has been admitted to hospital for treatment. On today's evaluation that is 05/12/2023,the patient denies any fever or any chills, patient is still complaining of shortness of breath currently on 5 L high flow nasal cannula oxygen denies any chest pain did have a cough and is bringing up some sputum no vomiting or diarrhea has been reported. The patient white count is 4.52 creatinine is 2.38 slightly lower than yesterday sputum culture requested yesterday is just been obtained Objective - Vital Signs Vital signs: Vital Signs Temp 98.3 F 05/12/23 06:58 Pulse 100 05/12/23 08:56 Resp 21 05/12/23 08:20 BP 109/55 05/12/23 06:58 Pulse Ox 99 05/12/23 06:58 FiO2 Intake & Output 05/11/23 05/12/23 05/12/23 18:59 06:59 18:59 Intake Total 320 Output Total 1500 1125 Balance -1180 -1125 Intake: Oral 320 Output: Urine 1500 1125 Other: Voiding Method Toilet Urinal # Voids 1 - Exam GENERAL DESCRIPTION: An elderly male up in bed in no distress RESPIRATORY SYSTEM: Unlabored breathing , coarse breath sounds bilaterally HEART: S1 S2 regular rate and rhythm , ABDOMEN: Soft , no tenderness EXTREMITIES: No edema feet - Labs CBC & Chem 7: 05/12/23 06:33 05/12/23 06:33 Labs: Abnormal Lab Results - Last 24 Hours (Table) 05/12/23 Range/Units 06:33 Creatinine 2.38 H (0.66-1.25) mg/dL C-Reactive Protein 4.4 H (<1.0) mg/dL Assessment and Plan (1) Infection due to Stenotrophomonas maltophilia Current Visit: Yes Status: Acute Code(s): A49.8 - OTHER BACTERIAL INFECTIONS OF UNSPECIFIED SITE SNOMED Code(s): 86933748 (2) Pneumonia Current Visit: No Status: Acute Code(s): J18.9 - PNEUMONIA, UNSPECIFIED ORGANISM SNOMED Code(s): 346606019 Plan: 1patient was in the hospital with increasing shortness of breath and cough in this patient who did have end-stage COPD and bronchiectasis and history of recurrent pneumonia with recent bronchoscopy culture positive for drug-resistant Stenotrophomonas maltophilia, patient did have a history of renal insufficiency and high risk of nephrotoxicity from Bactrim DS. 2 sensitivity for minocycline is currently pending 3patient did have elevated inflammatory markers and chest x-ray PA and lateral suggestive of pneumonia 4patient did have worsening of his kidney function creatinine and dose of IV Bactrim has been called back yesterday the patient creatinine slightly down today still having significant respiratory symptoms which is unusual and may be dealing with a different pathogen sputum culture requested obtained this morning results will be followed continue with the Zosyn along with IV Bactrim and monitor his kidney function closely Dictation was produced using [employer] dictation software. please excuse any grammatical, word or spelling errors. Time with Patient: Less than 30
--- NOTE | 2023-05-12 17:23 | P.PN ---
Progress Note - Text Progress Note Date: 05/12/23 Chief Complaint: Cough Patient is a 77-year-old male with a past medical history of COPD on home oxygen 2 L as needed, , history of bronchial stent placement/removal, CKD stage III, history of lung cancer, history of DVT, hypertension anxiety and prior history of smoking presents underwent extensive lysis of adhesions, small bowel resection and repair of incisional hernia on 02/09/2022.reversal of ostomy and repair of incisional hernia done on November 14, 2022.-. Patient send repeated pneumonias. Also had bronchoscopy with lavages Patient has been having respiratory infection outpatient. Was given 10-day course of Zyvox. Then had a break. Underwent bronchoscopy with lavage on May 01, [address] Cortez. Cultures have come back showing Stenotrophomonas maltophilia. Based on the cultures patient be admitted for IV antibiotics. Started on IV Bactrim. ID consulted Patient is coughing of sputum. Appetite is fair. Short of breath. Some wheezing. Normally uses 2 L of oxygen at home as needed currently using 3 L at all times. May 07: Patient remains on IV Bactrim being followed by ID. Waiting on sensitivity. To minocycline. Cough. Some sputum production. Tolerating diet. May 2: Some cough. Little sputum. Creatinine 2.2. ID is waiting for sensitivity on minocycline. Remains on IV Bactrim. Eating well. Getting IV fluids being followed by nephrology. May 09: Not much change clinically. Continues on continue IV Bactrim. Pending further input from ID depending upon sensitivity. Tolerating diet. Discussed with Dr. Cortez. Possible bronchial lavage by Dr. Howard. Tomorrow May 10: Remains on IV Bactrim. Creatinine up to 2.41. Being followed by nephrology and ID. At this point no plan for lavage per pulmonary. May 11: Dose of Bactrim adjusted by pharmacy per ID. Short of breath. Congested cough. No plans for lavage per pulmonary. Other medications to continue. Active Medications Acetaminophen (Acetaminophen Tab 325 Mg Tab) 650 mg PO Q6HR PRN PRN Reason: Mild Pain or Fever > 100.5 Albuterol/Ipratropium (Ipratropium-Albuterol 3 Ml Neb) 3 ml INHALATION RT-QID BIJU Last Admin: 05/12/23 16:04 Dose: 3 ml Albuterol/Ipratropium (Ipratropium-Albuterol 3 Ml Neb) 3 ml INHALATION RT-Q2H PRN PRN Reason: Shortness Of Breath Or Wheezing Last Admin: 05/12/23 02:44 Dose: 3 ml Allopurinol (Allopurinol 100 Mg Tab) 100 mg PO HS [facility] Last Admin: 05/11/23 20:39 Dose: 100 mg Alprazolam (Alprazolam 0.5 Mg Tab) 0.5 mg PO BID PRN PRN Reason: Anxiety Last Admin: 05/12/23 05:45 Dose: 0.5 mg Alprazolam (Alprazolam 0.5 Mg Tab) 0.5 mg PO HS [facility] Last Admin: 05/11/23 20:39 Dose: 0.5 mg Aspirin (Aspirin 81 Mg) 81 mg PO DAILY [facility] Last Admin: 05/12/23 08:23 Dose: 81 mg Budesonide (Budesonide 1 Mg/2 Ml Nebu) 1 mg INHALATION RT-BID [facility] Last Admin: 05/12/23 08:26 Dose: 1 mg Calcium Carbonate/Glycine (Calcium Carbonate 500 Mg Chewable) 1,000 mg PO Q4HR PRN PRN Reason: Dyspepsia Cholecalciferol (Cholecalciferol 25 Mcg (1000 Iu) Tablet) 75 mcg PO DAILY [facility] Last Admin: 05/12/23 08:23 Dose: 75 mcg Cyanocobalamin (Cyanocobalamin 500 Mcg Tab) 1,000 mcg PO DAILY [facility] Last Admin: 05/12/23 08:22 Dose: 1,000 mcg Darbepoetin Bobby (Darbepoetin Bobby 40 Mcg/0.4 Ml Syringe) 40 mcg SQ Q7D [facility] Last Admin: 05/08/23 13:38 Dose: 40 mcg Doxazosin Mesylate (Doxazosin 4 Mg Tab) 4 mg PO HS [facility] Last Admin: 05/11/23 20:39 Dose: 4 mg Enoxaparin Sodium (Enoxaparin 30 Mg/0.3 Ml Syringe) 30 mg SQ DAILY [facility] Last Admin: 05/12/23 08:23 Dose: 30 mg Folic Acid (Folic Acid 1 Mg Tab) 1 mg PO DAILY [facility] Last Admin: 05/12/23 08:22 Dose: 1 mg Formoterol Fumarate (Formoterol Fumarate 20 Mcg/2 Ml Nebu) 20 mcg INHALATION RT-BID [facility] Last Admin: 05/12/23 08:26 Dose: 20 mcg Guaifenesin (Guaifenesin 600 Mg Tablet.Er) 600 mg PO QID [facility] Last Admin: 05/12/23 12:28 Dose: 600 mg Piperacillin Sod/Tazobactam (Sod 3.375 gm/ Sodium Chloride) 100 mls @ 25 mls/hr IVPB Q8H [facility]; Protocol Last Admin: 05/12/23 15:23 Dose: 25 mls/hr Trimethoprim/Sulfamethoxazole (208 mg/ Dextrose/Water) 513 mls @ 333.33 mls/hr IVPB Q12H [facility] Last Admin: 05/12/23 13:17 Dose: 333.33 mls/hr Lactobacillus Acidophilus (Lactobacillus Acidophilus/Pect 1 Each Capsule) 1 each PO DAILY [facility] Last Admin: 05/12/23 08:22 Dose: 1 each Lactulose (Lactulose 20 Gm/30 Ml Cup) 20 gm PO DAILY PRN PRN Reason: Constipation Magnesium Oxide (Magnesium Oxide 400 Mg Tab) 400 mg PO BID [facility] Last Admin: 05/12/23 08:22 Dose: 400 mg Methylprednisolone Sodium Succinate (Methylprednisolone Sod Succi 125 Mg/2 Ml Vial) 60 mg IV Q6HR [facility] Last Admin: 05/12/23 12:28 Dose: 60 mg Metoprolol Tartrate (Metoprolol Tartrate 25 Mg Tab) 25 mg PO BID [facility] Last Admin: 05/12/23 08:22 Dose: 25 mg Montelukast Sodium (Montelukast 10 Mg Tab) 10 mg PO HS [facility] Last Admin: 05/11/23 20:39 Dose: 10 mg Naloxone HCl (Naloxone 0.4 Mg/Ml 1 Ml Vial) 0.2 mg IV Q2M PRN PRN Reason: Opioid Reversal Ondansetron HCl (Ondansetron 4 Mg/2 Ml Vial) 4 mg IVP Q8HR PRN PRN Reason: Nausea And Vomiting Polyethylene Glycol (Polyethylene Glycol 3350 17 Gm Powd.Pack) 17 gm PO DAILY PRN PRN Reason: Constipation Last Admin: 05/11/23 13:27 Dose: 17 gm Sodium Bicarbonate (Sodium Bicarbonate Tab 650 Mg Tab) 650 mg PO DAILY [facility] Last Admin: 05/12/23 08:23 Dose: 650 mg Sodium Zirconium Cyclosilicate (Sodium Zirconium Cyclosilicate 10 Gm Packet) 10 gm PO DAILY [facility] Last Admin: 05/12/23 08:22 Dose: 10 gm Temazepam (Temazepam 15 Mg Cap) 15 mg PO HS PRN PRN Reason: Insomnia Physical examination: VITAL SIGNS: 98.9, 80, 20, 1 one 8 x 65, 100% on 5 L GENERAL: Sitting at the edge of the bed EYES: Pupils equal. Conjunctiva wisam l. HEENT: External appearance of nose and ears normal, oral cavity grossly normal. NECK: JVD not raised; masses not palpable. HEART: First and second heart sounds are normal; some edema. LUNGS: Respiratory rate increased; diminished breath sounds, some scattered crackles. ABDOMEN: Soft, nontender, liver spleen not palpable, no masses palpable. PSYCH: Alert and oriented x3; mood and affect tired l. MUSCULOSKELETAL:No Clubbing/cyanosis;muscles-grossly intact. OA INVESTIGATIONS, reviewed in the clinical context: May 11: White count 4.5 hemoglobin 7.9 platelets 158 creatinine 2.38 procalcitonin 0.30 May 10: Sodium 134 potassium 5.1 BUN 36 creatinine 2.41 May 08: Potassium 4.4 creatinine 2.2 May 07: White count 4.0 hemoglobin 8.7 platelets 176 potassium 4 creatinine 2.1 May 07, 2023: White count 4.6 hemoglobin 10.9 platelets 184 potassium 4.3 BUN 49 creatinine 1.94 EKG tracing personally reviewed by me-right bundle bud block. Sinus rhythm. PVC. Previous labs: Sputum culture [May 01] Stenotrophomonas maltophilia Assessment and plan: -Pneumonia secondary to Stenotrophomonas maltophilia diagnosed on sputum culture following bronchoscopy with lavage on May [address] Cortez: Slow to respond IV Bactrim. ID following-pending decision if patient can be changed to minocycline based on sensitivity -Acute COPD exacerbation in an ex-smoker: Slow to respond Peroformorist/Pulmicort nebulizer twice daily. Atrovent nebulizer. -Acute on chronic hypoxic respiratory failure: Slow to respond On home oxygen 2 L at night. Currently on 5 L at all times Chronic kidney disease stage III baseline creatinine level -Creatinine 1.4 -Acute kidney injury, likely ATN from Bactrim Current creatinine 2.38 Being followed by nephrology -Anemia of chronic kidney disease. Iron deficiency anemia. Has received IV iron in the past -Chronic hyperkalemia from underlying COPD Chronically on Lokelma -Reversal of colostomy and umbilical hernia repair on 11/14/2022. Wound care to continue Right upper lobe pulmonary nodule. Patient had PET scan and was treated with SBRT Obstructive sleep apnea not on CPAP Chronic hypoxic respiratory failure, from underlying COPD -on home oxygen 2 L at night -Chronic dysphagia On nectar thick liquids. Chin tuck History of DVT Essential Hypertension -Lopressor 25 mg twice a day Continue current medication treatment plan. Follow-up with ID and pulmonary. Past Medical History Past Medical History: Blood Disorder, Cancer, COPD, Deep Vein Thrombosis (DVT), GERD/Reflux, Hypertension, Pneumonia, Renal Disease Additional Past Medical History / Comment(s): currently exasperbated SOB and productive coughing,hx of pseudomonus lung infection, O2 @ 3L ATC, diverticulits, Factor V Leiden, hx of bronchial silicone stent now removed, PICC line in past now removed, past hx dialysis for kidney damage-was in the hospital for 1 month 2016-none currently, Stage 3 renal disease, Lung cancer - diagnosed and treated down in [place] 2018, colostomy for tx of hole in colon and bladder-later reversal History of Any Multi-Drug Resistant Organisms: MRSA, Other MDRO Date of last positivie culture/infection: 04/13/23 MRSA; 12/24/22 MDRO Pseudomonas MDRO Source:: Sputum-MDRO & MRSA Past Surgical History: Hernia Repair, Tonsillectomy Additional Past Surgical History / Comment(s): bronchoscopy, bronchial silicone stent, now removed, fatty tumor removed from chest area, COLONOSCOPY, [place] cataract, incisional hernia repair, ileostomy/colostomy reversal Past Anesthesia/Blood Transfusion Reactions: Previous Problems w/ Anesthesia Additional Past Anesthesia/Blood Transfusion Reaction / Comment(s): "as infant turned black and blue from ETHER". FACTOR V LEIDEN. no problems w/ prior blood transfusion Past Psychological History: Anxiety Smoking Status: Former smoker
--- NOTE | 2023-05-13 13:30 | P.PN ---
Subjective Patient is seen for follow-up for chronic kidney disease stage IIIb with baseline creatinine 1.6 to 1.9 mg/dL. He was admitted with respiratory symptoms for further treatment of pneumonia. Currently maintained on IV Bactrim. Serum creatinine at about 2.2 -2.4mg/dL. Good urine output Blood pressure is not low. Maintained on 3 L of oxygen via nasal cannula. Status post IV Lasix yesterday with improvement in shortness of breath. Objective - Vital Signs Vital signs: Vital Signs Temp 97.9 F 05/13/23 07:57 Pulse 64 05/13/23 11:15 Resp 19 05/13/23 07:57 BP 137/66 05/13/23 07:57 Pulse Ox 94 L 05/13/23 07:57 FiO2 Intake & Output 05/12/23 05/13/23 05/13/23 18:59 06:59 18:59 Output Total 350 200 Balance -350 -200 Weight 68.039 kg Output: Urine 350 200 Other: Voiding Method Toilet Urinal # Voids 5 2 - Exam Patient is awake, comfortable, no acute distress Examination of the heart S1 and S2 Examination of the lungs shows diffuse crackles with improved wheezing Abdomen is nondistended Examination of lower extremities shows 1+ edema RN HEART exam grossly intact - Labs CBC & Chem 7: 05/12/23 06:33 05/12/23 06:33 Labs: Microbiology - Last 24 Hours (Table) 05/12/23 11:02 Gram Stain - Preliminary Sputum Sputum Culture - Preliminary Gram Neg Bacilli Assessment and Plan Assessment: 1. Acute kidney injury secondary to ATN secondary to infection and also from Bactrim which will impair creatinine secretion. Creatinine 2.2-2.4 CAT scan from December 2022 showed no evidence of hydronephrosis. 2. Chronic kidney disease stage IIIb with baseline creatinine 1.6-1.9 secondary to nonrecovered ATN and multiple episodes of acute kidney injury. 3. Chronic hyperkalemia maintained on Lokelnv outpatient. 4. Recurrent episodes of pneumonia. Last culture from May 01, 2023 positive for stenotrophomonas maltophilia. Being followed by infectious disease and pulmonology. 5. Chronic diastolic CHF and moderate tricuspid regurgitation. 6. Anemia of chronic kidney disease. 7. Volume overload Plan: Continue to monitor closely for need for diuretics on a daily basis. Status post IV Lasix yesterday Check labs today Repeat labs in a.m. Continue with IV Bactrim.
[2023-05-13 13:56] VITALS: BMI 25.0
--- NOTE | 2023-05-13 14:39 | P.PN ---
Subjective Progress Note Date: 05/13/23 This patient is 77 with known history of advanced COPD and severe tracheobronchomalacia in addition to her previous history of a lung mass that was treated by SBRT and previous history of renal cell mass she is by cryotherapy who has had several and recurrent respiratory tract infection with various gram-negative microorganisms including Pseudomonas aeruginosa and gram- positive organisms including MRSA. Looking at the various sputum samples that the patient has had, the patient had MRSA infection back in 02/17/2023 and subsequently on 04/13/2023 and the patient was treated on outpatient basis with Z yvox. As far as gram-negative infections, the patient had a combination of E. coli and stenotrophomonas on 03/10/2023. He continues to be symptomatic and the patient underwent a bronchoscopy endobronchial lavage on 05/01/2023 and there was recurrent infection with stenotrophomonas and this was resistant to Levaquin and Fortaz. It was sensitive to Bactrim. However, there was concern about patient by treatment with Bactrim as the patient is known to have chronic kidney disease, stage III. Based on that, the patient was asked to come into the hospital to be hospitalized for inpatient treatment. ID consultation will be obtained in regards to further advice for antibiotic management. The patient is currently on oxygen and he is on 3 L with a pulse ox of 98% he is afebrile. He has a congested cough and ongoing sputum production. No altered mentation. Appetite is good. No other specific complaints otherwise for now. In terms of his COPD, he has been maintained on Trelegy Ellipta on outpatient basis. His oxygen dependent over this past 6 months at least and the patient is having to use albuterol nebulized treatments [id number] as needed. He also uses inhaled tobramycin on outpatient basis regarding recurrent gram-negative and pseudomonal infections. This is being utilized every other month.the patient's most recent CAT scan of the chest abdomen and pelvis showed small bilateral pleural effusions and right lower lobe pulmonary nodule that has remained stable and the patient also has an ascending aortic aneurysm measuring 4.5 cm. This was done on 12/23/2022. The most recent echocardiogram that was done on 12/21/2022 showed a normal LV, elevated RVSP, moderate tricuspid regurgitation. On today's evaluation of 05/08/2023, the patient remains on IV Bactrim. The renal function is being monitored very closely. Blood work from today shows a Of 41 with a creatinine of 2.1. Sodium is at 140 with a potassium level of 4. The white cell count is 4 with a hemoglobin of 8.7. He remains on oxygen 3 L/min nasal cannula. He desaturates on room air oxygen. He is afebrile. He has a congested cough. A chest x-ray was also done today and it showed lower lobe pulmonary infiltrates/atelectasis which are essentially chronic and the patient has a right upper lobe nodular density that was noted before. He is resting comfortably in bed. No other new complaints otherwise for now On today's evaluation of 05/09/2023, the patient is being seen for a follow-up. Creatinine is at 2.2 with a BUN of 30. The patient is receiving IV Bactrim. Still symptomatic. Still having cough and congestion and producing limited amount of mucus. Chest x-ray from yesterday showed lower lobe bilaterally pulmonary infiltrates and the patient's procalcitonin level is at 0.24. Remains on oxygen and he is still on 3 L O2 nasal cannula. No interval worsening shortness of breath. Nevertheless, no significant improvement. On 05/10/2023, the patient denies having any major improvement in his overall respiratory status. Remains on IV Bactrim. Creatinine is at 2.2. No new comp laints otherwise for now. Remains on 3 L of oxygen by nasal cannula. No pleurisy or hemoptysis or chest pain. Afebrile. ID is on the case. Feels weak and lethargic and no altered mentation. No other new complaints otherwise for now. The patient is seen today May 11, 2023 for follow-up on the regular medical floor. He is resting in bed. Awake and alert in no acute distress. Continues with a loose productive cough. Maintaining O2 saturations in the upper 90s on 4 L/min per nasal cannula. Sodium 134. Potassium 5.1. Bicarb 27. BUN 36. Creatinine 2.41. Most recent bronchoscopy lavage cultures on 05/01/2023 were positive for stenotrophomonas maltophilia. He is currently on Bactrim and Zosyn. Infectious diseases following. He remains on DuoNeb ventilations, Pulmicort and Perforomist inhalations, Solu-Medrol. Lovenox for DVT prophylaxis. The patient is seen today May 12, 2023 in follow-up on the regular medical floor. He is currently sitting up at the bedside. Awake and alert in no acute distress. He has ongoing issues with shortness of breath mostly on exertion. S till with lots of cough and congestion. He is maintaining O2 saturations up to 100% on 5 L high flow nasal cannula. He is afebrile. Hemodynamically stable. White count 4.5. Hemoglobin 7.9. Platelets 158. BUN 2.38. C-reactive protein 4.4. Procalcitonin 0.30. He remains on DuoNeb inhalations, Pulmicort and Perforomist inhalation, Singulair, Mucinex and Solu-Medrol. Lovenox for DVT prophylaxis. He remains on antibiotics in the form of Zosyn and Bactrim Patient is seen today May 13, 2023 in follow-up on the regular medical floor. He is awake and alert in no acute distress. Sitting up at the bedside. He is breathing a bit easier today compared to yesterday. Less wheezing. He has been slow to progress. Sputum culture positive for gram-negative bacilli. He remains on Bactrim and Zosyn. Continued on bronchodilators and steroids. Maintaining O2 saturations in the high 90s on 5 L nasal cannula. Afebrile. Hemodynamically stable. Objective - Vital Signs Vital signs: Vital Signs Temp 97.9 F 05/13/23 07:57 Pulse 64 05/13/23 11:15 Resp 19 05/13/23 07:57 BP 137/66 05/13/23 07:57 Pulse Ox 94 L 05/13/23 07:57 FiO2 Intake & Output 05/12/23 05/13/23 05/13/23 18:59 06:59 18:59 Output Total 350 200 Balance -350 -200 Weight 68.039 kg Output: Urine 350 200 Other: Voiding Method Toilet Urinal # Voids 5 2 - Exam GENERAL EXAM: Alert, thin 77-year-old male, on 5 L nasal cannula, in no apparent distress. HEAD: Normocephalic. EYES: Normal reaction of pupils, equal size. NOSE: Clear with pink turbinates. THROAT: No erythema or exudates. NECK: No masses, no JVD. CHEST: No chest wall deformity. LUNGS: Equal air entry with faint crackles in the bilateral bases scattered rhonchi. Diminished. CVS: S1 and S2 normal with no audible murmur, regular rhythm. ABDOMEN: Dressing/binder in place. No hepatosplenomegaly, normal bowel sounds, no guarding or rigidity. SPINE: No scoliosis or deformity SKIN: No rashes CENTRAL NERVOUS SYSTEM: No focal deficits, tone is normal in all 4 extremities. EXTREMITIES: There is no peripheral edema. No clubbing, no cyanosis. Peripheral pulses are intact. - Labs CBC & Chem 7: 05/12/23 06:33 05/12/23 06:33 Labs: Microbiology - Last 24 Hours (Table) 05/12/23 11:02 Gram Stain - Preliminary Sputum Sputum Culture - Preliminary Gram Neg Bacilli Assessment and Plan Assessment: Acute COPD exacerbation with ongoing respiratory difficulties and cough and hypoxemic respiratory failure. The patient has recurrent respiratory tract infection with gram-negative bacteria including Pseudomonas/stenotrophomonas and E. coli and gram-positive bacteria including MRSA. The patient was recently treated with Zyvox for his MRSA infection. The patient subsequent underwent a bronchoscopy on 05/01/2023 and he was found to have drug-resistant stenotropho monas. The patient is symptomatic with excessive respiratory secretions and mucus production and ongoing shortness of breath. The chest x-ray showing bilateral lower lobe pulmonary infiltrate/atelectasis. He remains on Zosyn and Bactrim. Severe COPD with chronic hypoxic respiratory failure maintained on Trelegy Ellipta on outpatient basis in addition to DuoNeb updrafts Recurrent respiratory tract infection with Pseudomonas aeruginosa/stenotrophomonas and the patient has been maintained on inhaled tobramycin on outpatient basis every other month Previous history of MRSA lung infection treated with Zyvox Chronic stage III kidney disease Severe tracheobronchomalacia Previous multiple bronchoscopies Previous history of a lung mass treated with SBRT and subsequent PET/CT showed no significant metabolic activity History of renal mass treated by cryotherapy Previous history of DVT and pulmonary embolism maintained on anticoagulation and the patient has factor V Leyden Hypertension Obstructive sleep apnea Diverticulosis with previous history of diverticulitis and the patient has undergone previous colectomy and colostomy for colonic perforation Chronic anemia of chronic disease Plan: The patient was seen and evaluated Medications reviewed Continue the current treatment plan Follow-up chest x-ray in a.m. Titrate the FiO2 as tolerated We will continue to follow I have personally seen and examined the patient, performed the documentation and the assessment and plan as written. Number of minutes spent on the visit: 10.
[2023-05-13 15:22] LABS: African American GFR (CKD) 25 (>60 ml/min/1.73 sqM); Anion Gap 7 mmol/L; Blood Urea Nitrogen 35 mg/dL (9-20); Calcium 8.7 mg/dL (8.4-10.2); Carbon Dioxide 29 mmol/L (22-30); Chloride 99 mmol/L (98-107); Glucose 150 mg/dL (74-99); Non-African American GFR(CKD) 22 (>60 ml/min/1.73 sqM); Sodium 135 mmol/L (137-145)
[2023-05-13] MEDS: PIPERACILLIN-TAZOBACTAM 3.375 GM in SODIUM CHLORIDE 0.9% 100 ML IVPB SCH (18:01)
--- NOTE | 2023-05-13 18:13 | P.PN ---
Progress Note - Text Progress Note Date: 05/13/23 Chief Complaint: Cough Patient is a 77-year-old male with a past medical history of COPD on home oxygen 2 L as needed, , history of bronchial stent placement/removal, CKD stage III, history of lung cancer, history of DVT, hypertension anxiety and prior history of smoking presents underwent extensive lysis of adhesions, small bowel resection and repair of incisional hernia on 02/09/2022.reversal of ostomy and repair of incisional hernia done on November 14, 2022.-. Patient send repeated pneumonias. Also had bronchoscopy with lavages Patient has been having respiratory infection outpatient. Was given 10-day course of Zyvox. Then had a break. Underwent bronchoscopy with lavage on May 01, [address] Cortez. Cultures have come back showing Stenotrophomonas maltophilia. Based on the cultures patient be admitted for IV antibiotics. Started on IV Bactrim. ID consulted Patient is coughing of sputum. Appetite is fair. Short of breath. Some wheezing. Normally uses 2 L of oxygen at home as needed currently using 3 L at all times. May 07: Patient remains on IV Bactrim being followed by ID. Waiting on sensitivity. To minocycline. Cough. Some sputum production. Tolerating diet. May 2: Some cough. Little sputum. Creatinine 2.2. ID is waiting for sensitivity on minocycline. Remains on IV Bactrim. Eating well. Getting IV fluids being followed by nephrology. May 09: Not much change clinically. Continues on continue IV Bactrim. Pending further input from ID depending upon sensitivity. Tolerating diet. Discussed with Dr. Cortez. Possible bronchial lavage by Dr. Howard. Tomorrow May 10: Remains on IV Bactrim. Creatinine up to 2.41. Being followed by nephrology and ID. At this point no plan for lavage per pulmonary. May 11: Dose of Bactrim adjusted by pharmacy per ID. Short of breath. Congested cough. No plans for lavage per pulmonary. Other medications to continue. May 12: Remains on IV Bactrim. No sputum production. Breathing a bit better. Was increased on IV Solu-Medrol to 60 mg every 6 hours. By pulmonary some decrease in appetite.. Active Medications Acetaminophen (Acetaminophen Tab 325 Mg Tab) 650 mg PO Q6HR PRN PRN Reason: Mild Pain or Fever > 100.5 Albuterol/Ipratropium (Ipratropium-Albuterol 3 Ml Neb) 3 ml INHALATION RT-QID [facility] Last Admin: 05/13/23 15:14 Dose: 3 ml Albuterol/Ipratropium (Ipratropium-Albuterol 3 Ml Neb) 3 ml INHALATION RT-Q2H PRN PRN Reason: Shortness Of Breath Or Wheezing Last Admin: 05/12/23 02:44 Dose: 3 ml Allopurinol (Allopurinol 100 Mg Tab) 100 mg PO HS [facility] Last Admin: 05/12/23 21:00 Dose: 100 mg Alprazolam (Alprazolam 0.5 Mg Tab) 0.5 mg PO BID PRN PRN Reason: Anxiety Last Admin: 05/13/23 09:20 Dose: 0.5 mg Alprazolam (Alprazolam 0.5 Mg Tab) 0.5 mg PO HS [facility] Last Admin: 05/12/23 20:59 Dose: 0.5 mg Aspirin (Aspirin 81 Mg) 81 mg PO DAILY [facility] Last Admin: 05/13/23 09:14 Dose: 81 mg Budesonide (Budesonide 1 Mg/2 Ml Nebu) 1 mg INHALATION RT-BID [facility] Last Admin: 05/13/23 08:09 Dose: 1 mg Calcium Carbonate/Glycine (Calcium Carbonate 500 Mg Chewable) 1,000 mg PO Q4HR PRN PRN Reason: Dyspepsia Cholecalciferol (Cholecalciferol 25 Mcg (1000 Iu) Tablet) 75 mcg PO DAILY [facility] Last Admin: 05/13/23 09:14 Dose: 75 mcg Cyanocobalamin (Cyanocobalamin 500 Mcg Tab) 1,000 mcg PO DAILY [facility] Last Admin: 05/13/23 09:14 Dose: 1,000 mcg Darbepoetin Bobby (Darbepoetin Bobby 40 Mcg/0.4 Ml Syringe) 40 mcg SQ Q7D [facility] Last Admin: 05/08/23 13:38 Dose: 40 mcg Doxazosin Mesylate (Doxazosin 4 Mg Tab) 4 mg PO HS [facility] Last Admin: 05/12/23 21:10 Dose: 4 mg Enoxaparin Sodium (Enoxaparin 30 Mg/0.3 Ml Syringe) 30 mg SQ DAILY [facility] Last Admin: 05/13/23 09:14 Dose: 30 mg Folic Acid (Folic Acid 1 Mg Tab) 1 mg PO DAILY [facility] Last Admin: 05/13/23 09:14 Dose: 1 mg Formoterol Fumarate (Formoterol Fumarate 20 Mcg/2 Ml Nebu) 20 mcg INHALATION RT-BID [facility] Last Admin: 05/13/23 08:09 Dose: 20 mcg Guaifenesin (Guaifenesin 600 Mg Tablet.Er) 600 mg PO QID [facility] Last Admin: 05/13/23 18:02 Dose: 600 mg Trimethoprim/Sulfamethoxazole (208 mg/ Dextrose/Water) 513 mls @ 333.33 mls/hr IVPB Q12H [facility] Last Admin: 05/13/23 15:07 Dose: 333.33 mls/hr Piperacillin Sod/Tazobactam (Sod 3.375 gm/ Sodium Chloride) 100 mls @ 25 mls/hr IVPB Q8H [facility]; Protocol Last Admin: 05/13/23 18:01 Dose: 25 mls/hr Lactobacillus Acidophilus (Lactobacillus Acidophilus/Pect 1 Each Capsule) 1 each PO DAILY [facility] Last Admin: 05/13/23 09:14 Dose: 1 each Lactulose (Lactulose 20 Gm/30 Ml Cup) 20 gm PO DAILY PRN PRN Reason: Constipation Magnesium Oxide (Magnesium Oxide 400 Mg Tab) 400 mg PO BID [facility] Last Admin: 05/13/23 09:14 Dose: 400 mg Methylprednisolone Sodium Succinate (Methylprednisolone Sod Succi 125 Mg/2 Ml Vial) 60 mg IV Q6HR [facility] Last Admin: 05/13/23 11:55 Dose: 60 mg Metoprolol Tartrate (Metoprolol Tartrate 25 Mg Tab) 25 mg PO BID [facility] Last Admin: 05/13/23 09:14 Dose: 25 mg Montelukast Sodium (Montelukast 10 Mg Tab) 10 mg PO HS [facility] Last Admin: 05/12/23 20:59 Dose: 10 mg Naloxone HCl (Naloxone 0.4 Mg/Ml 1 Ml Vial) 0.2 mg IV Q2M PRN PRN Reason: Opioid Reversal Ondansetron HCl (Ondansetron 4 Mg/2 Ml Vial) 4 mg IVP Q8HR PRN PRN Reason: Nausea And Vomiting Polyethylene Glycol (Polyethylene Glycol 3350 17 Gm Powd.Pack) 17 gm PO DAILY PRN PRN Reason: Constipation Last Admin: 05/12/23 20:59 Dose: 17 gm Sodium Bicarbonate (Sodium Bicarbonate Tab 650 Mg Tab) 650 mg PO DAILY [facility] Last Admin: 05/13/23 09:15 Dose: 650 mg Sodium Zirconium Cyclosilicate (Sodium Zirconium Cyclosilicate 10 Gm Packet) 10 gm PO DAILY [facility] Last Admin: 05/13/23 09:15 Dose: 10 gm Temazepam (Temazepam 15 Mg Cap) 15 mg PO HS PRN PRN Reason: Insomnia Physical examination: VITAL SIGNS: 98, 74, 18, 128 x 55, 99% on 5 L GENERAL: Sitting at the edge of the bed EYES: Pupils equal. Conjunctiva wisam l. HEENT: External appearance of nose and ears normal, oral cavity grossly normal. NECK: JVD not raised; masses not palpable. HEART: First and second heart sounds are normal; some edema. LUNGS: Respiratory rate increased; diminished breath sounds, decreased scattered crackles. ABDOMEN: Soft, nontender, liver spleen not palpable, no masses palpable. PSYCH: Alert and oriented x3; mood and affect tired l. MUSCULOSKELETAL:No Clubbing/cyanosis;muscles-grossly intact. OA INVESTIGATIONS, reviewed in the clinical context: May 12: BUN 35 creatinine 2.65 creatinine 5 procalcitonin 0.3 May 11: White count 4.5 hemoglobin 7.9 platelets 158 creatinine 2.38 procalcitonin 0.30 May 10: Sodium 134 potassium 5.1 BUN 36 creatinine 2.41 May 08: Potassium 4.4 creatinine 2.2 May 07: White count 4.0 hemoglobin 8.7 platelets 176 potassium 4 creatinine 2.1 May 07, 2023: White count 4.6 hemoglobin 10.9 platelets 184 potassium 4.3 BUN 49 creatinine 1.94 EKG tracing personally reviewed by nm-right bundle bud block. Sinus rhythm. PVC. Previous labs: Sputum culture [May 01] Stenotrophomonas maltophilia Assessment and plan: -Pneumonia secondary to Stenotrophomonas maltophilia diagnosed on sputum culture following bronchoscopy with lavage on May [address] Cortez: Slow to respond IV Bactrim. ID following-pending decision if patient can be changed to minocycline based on sensitivity -Acute COPD exacerbation in an ex-smoker: Slow to respond Peroformorist/Pulmicort nebulizer twice daily. Atrovent nebulizer. IV Solu-Medrol -Acute on chronic hypoxic respiratory failure: Slow to respond On home oxygen 2 L at night. Currently on 5 L at all times Chronic kidney disease stage III baseline creatinine level -Creatinine 1.4 -Acute kidney injury, likely ATN from Bactrim Current creatinine 2.38 Being followed by nephrology -Anemia of chronic kidney disease. Iron deficiency anemia. Has received IV iron in the past -Chronic hyperkalemia from underlying COPD Chronically on Lokelma -Reversal of colostomy and umbilical hernia repair on 11/14/2022. Wound care to continue Right upper lobe pulmonary nodule. Patient had PET scan and was treated with SBRT Obstructive sleep apnea not on CPAP Chronic hypoxic respiratory failure, from underlying COPD -on home oxygen 2 L at night -Chronic dysphagia On nectar thick liquids. Chin tuck History of DVT Essential Hypertension -Lopressor 25 mg twice a day IV Solu-Medrol dose was increased to 60 mg every 6 last by pulmonary. Other medications to continue. Titrate down FiO2 to keep pulse ox above 94%. Past Medical History Past Medical History: Blood Disorder, Cancer, COPD, Deep Vein Thrombosis (DVT), GERD/Reflux, Hypertension, Pneumonia, Renal Disease Additional Past Medical History / Comment(s): currently exasperbated SOB and productive coughing,hx of pseudomonus lung infection, O2 @ 3L ATC, diverticulits, Factor V Leiden, hx of bronchial silicone stent now removed, PICC line in past now removed, past hx dialysis for kidney damage-was in the hospital for 1 month 2016-none currently, Stage 3 renal disease, Lung cancer - diagnosed and treated down in [place] 2018, colostomy for tx of hole in colon and bladder- later reversal History of Any Multi-Drug Resistant Organisms: MRSA, Other MDRO Date of last positivie culture/infection: 04/13/23 MRSA; 12/24/22 MDRO Pseudomonas MDRO Source:: Sputum-MDRO & MRSA Past Surgical History: Hernia Repair, Tonsillectomy Additional Past Surgical History / Comment(s): bronchoscopy, bronchial silicone stent, now removed, fatty tumor removed from chest area, COLONOSCOPY, alexandre cataract, incisional hernia repair, ileostomy/colostomy reversal Past Anesthesia/Blood Transfusion Reactions: Previous Problems w/ Anesthesia Additional Past Anesthesia/Blood Transfusion Reaction / Comment(s): "as infant turned black and blue from ETHER". FACTOR V LEIDEN. no problems w/ prior blood transfusion Past Psychological History: Anxiety Smoking Status: Former smoker
[2023-05-14 06:36] LABS: African American GFR (CKD) 28 (>60 ml/min/1.73 sqM); Non-African American GFR(CKD) 24 (>60 ml/min/1.73 sqM)
--- NOTE | 2023-05-14 07:57 | XR ---
EXAMINATION TYPE: XR chest 1V portable DATE OF EXAM: 05/14/2023 HISTORY: Shortness of breath. COMPARISON: 05/08/2023 TECHNIQUE: Single view of the chest is submitted. FINDINGS: Demonstrated are scattered senescent parenchymal change. Bilateral pleural effusions with scattered mid and lower lung zone infiltrates and bands of atelectas is. No significant change. The heart is stable. Hilar and mediastinal structures are within normal limits. Degenerative changes are seen of the dorsal spine. IMPRESSION: 1. Bilateral pleural effusions with scattered mid and lower lung zone infiltrates and bands of atele ctasis. No significant change.
[2023-05-14] MEDS: DOXYCYCLINE 100 MG in SODIUM CHLORIDE 0.9% 100 ML IVPB SCH (10:44)
[2023-05-14] MEDS: FUROSEMIDE 10 MG/ML 4 ML VIAL IV STA (10:52)
[2023-05-14] MEDS: FUROSEMIDE 10 MG/ML 4 ML VIAL IV SCH (11:00)
--- NOTE | 2023-05-14 13:11 | P.PN ---
Subjective Patient is seen for follow-up for chronic kidney disease stage IIIb with baseline creatinine 1.6 to 1.9 mg/dL. He was admitted with respiratory symptoms for further treatment of pneumonia. Patient was maintained on IV Bactrim which has now been discontinued. Serum creatinine decreased to 2.4 from 2.6 mg/dL. Good urine output Blood pressure is not low. Maintained on 3 L of oxygen via nasal cannula. Status post IV Lasix again today for worsening shortness of breath Objective - Vital Signs Vital signs: Vital Signs Temp 98.0 F 05/14/23 07:07 Pulse 75 05/14/23 13:02 Resp 20 05/14/23 07:07 BP 142/67 05/14/23 07:07 Pulse Ox 97 05/14/23 07:07 FiO2 Intake & Output 05/13/23 05/14/23 05/14/23 18:59 06:59 18:59 Output Total 200 900 Balance -200 -900 Weight 68.039 kg Output: Urine 200 900 - Exam Patient is awake, comfortable, no acute distress Examination of the heart S1 and S2 Examination of the lungs shows diffuse crackles with improved wheezing Abdomen is nondistended Examination of lower extremities shows 1+ edema MOTOR TESTER exam grossly intact - Labs CBC & Chem 7: 05/12/23 06:33 05/14/23 05:50 Labs: Abnormal Lab Results - Last 24 Hours (Table) 05/13/23 05/14/23 Range/Units 14:34 05:50 Sodium 135 L (137-145) mmol/L BUN 35 H (9-20) mg/dL Creatinine 2.65 H 2.48 H (0.66-1.25) mg/dL Glucose 150 H (74-99) mg/dL Microbiology - Last 24 Hours (Table) 05/12/23 11:02 Gram Stain - Final Sputum Sputum Culture - Final Escherichia coli Jaimie albicans Assessment and Plan Assessment: 1. Acute kidney injury secondary to ATN secondary to infection and also from Bactrim which will impair creatinine secretion. Creatinine 2.2-2.4 CAT scan from December 2022 showed no evidence of hydronephrosis. Bactrim now discontinued 2. Chronic kidney disease stage IIIb with baseline creatinine 1.6-1.9 secondary to nonrecovered ATN and multiple episodes of acute kidney injury. 3. Chronic hyperkalemia maintained on [facility] outpatient. 4. Recurrent episodes of pneumonia. Last culture from May 01, 2023 positive for stenotrophomonas maltophilia. Being followed by infectious disease and pulmonology. 5. Chronic diastolic CHF and moderate tricuspid regurgitation. 6. Anemia of chronic kidney disease. 7. Volume overload Plan: Add scheduled dose of loop diuretics Repeat labs in a.m. Antibiotics as per ID
--- NOTE | 2023-05-14 14:31 | P.PN ---
Subjective Progress Note Date: 05/13/23 Principal diagnosis: Reason for follow-up is stenotrophomonas pneumonia Patient is a 77-year-old male with a past medical history significant for COPD DVT reflux hypertension renal disease patient did have a history of recurrent Pseudomonas pneumonia recently did have a outpatient bronchoscopy done on 05/01/2023 that did grew stenotrophomonas sensitive only to Bactrim DS because of his kidney function patient has been admitted to hospital for treatment. On today's evaluation that is 05/13/2023,the patient remains to be afebrile, patient is on 5 L nasal cannula supplemental oxygen and patient be complaining of shortness of breath no chest pain did have a cough with some purulent sputum.Patient denies having any nausea or vomiting, no abdominal pain and no diarrhea has been reported. Hide no CBC was done today, patient creatinine is 2.65 Objective - Vital Signs Vital signs: Vital Signs Temp 97.9 F 05/13/23 07:57 Pulse 76 05/13/23 08:35 Resp 19 05/13/23 07:57 BP 137/66 05/13/23 07:57 Pulse Ox 94 L 05/13/23 07:57 FiO2 Intake & Output 05/12/23 05/13/23 05/13/23 18:59 06:59 18:59 Output Total 350 Balance -350 Output: Urine 350 Other: Voiding Method Toilet Urinal # Voids 5 2 - Exam GENERAL DESCRIPTION: An elderly male up in bed in no distress RESPIRATORY SYSTEM: Unlabored breathing , coarse breath sounds bilaterally HEART: S1 S2 regular rate and rhythm , ABDOMEN: Soft , no tenderness EXTREMITIES: No edema feet - Labs CBC & Chem 7: 05/12/23 06:33 05/14/23 05:50 Labs: Abnormal Lab Results - Last 24 Hours (Table) 05/12/23 05/12/23 Range/Units 06:33 06:33 RBC 2.65 L (4.40-5.60) X 10*6/uL Hgb 7.9 L (13.0-17.0) g/dL Hct 25.1 L (39.6-50.0) % MCHC 31.5 L (32.0-37.0) g/dL RDW 17.2 H (11.5-14.5) % Lymphocytes # 0.54 L (0.90-5.00) X 10*3/uL Procalcitonin 0.30 H (0.02-0.09) ng/mL Microbiology - Last 24 Hours (Table) 05/12/23 11:02 Gram Stain - Preliminary Sputum Assessment and Plan (1) Infection due to Stenotrophomonas maltophilia Current Visit: Yes Status: Acute Code(s): A49.8 - OTHER BACTERIAL INFECTIONS OF UNSPECIFIED SITE SNOMED Code(s): 67772149 (2) Pneumonia Current Visit: No Status: Acute Code(s): J18.9 - PNEUMONIA, UNSPECIFIED ORGANISM SNOMED Code(s): 628183005 Plan: 1patient was in the hospital with increasing shortness of breath and cough in this patient who did have end-stage COPD and bronchiectasis and history of recurrent pneumonia with recent bronchoscopy culture positive for drug-resistant Stenotrophomonas maltophilia, patient did have a history of renal insufficiency and high risk of nephrotoxicity from Bactrim DS. 2 sensitivity for minocycline is currently pending 3patient did have elevated inflammatory markers and chest x-ray PA and lateral suggestive of pneumonia 4patient did have worsening of his kidney function creatinine and dose of IV Bactrim has been decreased per discussion the pharmacy still waiting for the minocyclin sensitivity 5-repeat sputum culture currently pending to continue with the Zosyn and monitor clinical course closely Dictation was produced using [employer] dictation software. please excuse any grammatical, word or spelling errors. Time with Patient: Less than 30
--- NOTE | 2023-05-14 14:32 | P.PN ---
Subjective Progress Note Date: 05/14/23 Principal diagnosis: Reason for follow-up is stenotrophomonas pneumonia Patient is a 77-year-old male with a past medical history significant for COPD DVT reflux hypertension renal disease patient did have a history of recurrent Pseudomonas pneumonia recently did have a outpatient bronchoscopy done on 05/01/2023 that did grew stenotrophomonas sensitive only to Bactrim DS because of his kidney function patient has been admitted to hospital for treatment. On today's evaluation that is 05/14/2023, the patient continues to be afebrile, the patient is on 4 L nasal cannula oxygen and breathing comfortably today, the Pt denies having any chest pain no worsening cough, the patient denies having any abdominal pain no vomiting or any diarrhea has been reported by the nursing staff No CBC today creatinine is 2.48, sputum is growing gram-negative Objective - Vital Signs Vital signs: Vital Signs Temp 98.0 F 05/14/23 07:07 Pulse 76 05/14/23 08:15 Resp 20 05/14/23 07:07 BP 142/67 05/14/23 07:07 Pulse Ox 97 05/14/23 07:07 FiO2 Intake & Output 05/13/23 05/14/23 05/14/23 18:59 06:59 18:59 Output Total 200 900 Balance -200 -900 Weight 68.039 kg Output: Urine 200 900 - Exam GENERAL DESCRIPTION: An elderly male up in bed in no distress RESPIRATORY SYSTEM: Unlabored breathing , coarse breath sounds bilaterally HEART: S1 S2 regular rate and rhythm , ABDOMEN: Soft , no tenderness EXTREMITIES: No edema feet - Labs CBC & Chem 7: 05/12/23 06:33 05/14/23 05:50 Labs: Abnormal Lab Results - Last 24 Hours (Table) 05/13/23 05/14/23 Range/Units 14:34 05:50 Sodium 135 L (137-145) mmol/L BUN 35 H (9-20) mg/dL Creatinine 2.65 H 2.48 H (0.66-1.25) mg/dL Glucose 150 H (74-99) mg/dL Microbiology - Last 24 Hours (Table) 05/12/23 11:02 Gram Stain - Preliminary Sputum Sputum Culture - Preliminary Gram Neg Bacilli Assessment and Plan (1) Infection due to Stenotrophomonas maltophilia Current Visit: Yes Status: Acute Code(s): A49.8 - OTHER BACTERIAL INFECTIONS OF UNSPECIFIED SITE SNOMED Code(s): 00234051 (2) Pneumonia Current Visit: No Status: Acute Code(s): J18.9 - PNEUMONIA, UNSPECIFIED ORGANISM SNOMED Code(s): 723518913 Plan: 1patient was in the hospital with increasing shortness of breath and cough in this patient who did have end-stage COPD and bronchiectasis and history of recurrent pneumonia with recent bronchoscopy culture positive for drug-resistant Stenotrophomonas maltophilia, patient did have a history of renal insufficiency and high risk of nephrotoxicity from Bactrim DS. 2 sensitivity for minocycline is currently pending however per discussion with the micro lab on 05/14/2023 it is sensitive to tetracycline 3keeping in mind worsening of his kidney function we will discontinue IV Bactrim and start the patient on IV doxycycline as we do not have IV minocycline or tigecycline at this facility 5-repeat sputum culture currently growing gram-negative with ID and sensitivities pending to continue with the Zosyn as the seem to have minimal clinical improvement compared to yesterday Dictation was produced using [employer] dictation software. please excuse any grammatical, word or spelling errors. Time with Patient: Less than 30
--- NOTE | 2023-05-14 15:06 | P.PN ---
Subjective Progress Note Date: 05/14/23 This patient is 77 with known history of advanced COPD and severe tracheobronchomalacia in addition to her previous history of a lung mass that was treated by SBRT and previous history of renal cell mass she is by cryotherapy who has had several and recurrent respiratory tract infection with various gram-negative microorganisms including Pseudomonas aeruginosa and gram- positive organisms including MRSA. Looking at the various sputum samples that the patient has had, the patient had MRSA infection back in 02/17/2023 and subsequently on 04/13/2023 and the patient was treated on outpatient basis with Z yvox. As far as gram-negative infections, the patient had a combination of E. coli and stenotrophomonas on 03/10/2023. He continues to be symptomatic and the patient underwent a bronchoscopy endobronchial lavage on 05/01/2023 and there was recurrent infection with stenotrophomonas and this was resistant to Levaquin and Fortaz. It was sensitive to Bactrim. However, there was concern about patient by treatment with Bactrim as the patient is known to have chronic kidney disease, stage III. Based on that, the patient was asked to come into the hospital to be hospitalized for inpatient treatment. ID consultation will be obtained in regards to further advice for antibiotic management. The patient is currently on oxygen and he is on 3 L with a pulse ox of 98% he is afebrile. He has a congested cough and ongoing sputum production. No altered mentation. Appetite is good. No other specific complaints otherwise for now. In terms of his COPD, he has been maintained on Trelegy Ellipta on outpatient basis. His oxygen dependent over this past 6 months at least and the patient is having to use albuterol nebulized treatments [id number] as needed. He also uses inhaled tobramycin on outpatient basis regarding recurrent gram-negative and pseudomonal infections. This is being utilized every other month.the patient's most recent CAT scan of the chest abdomen and pelvis showed small bilateral pleural effusions and right lower lobe pulmonary nodule that has remained stable and the patient also has an ascending aortic aneurysm measuring 4.5 cm. This was done on 12/23/2022. The most recent echocardiogram that was done on 12/21/2022 showed a normal LV, elevated RVSP, moderate tricuspid regurgitation. On today's evaluation of 05/08/2023, the patient remains on IV Bactrim. The renal function is being monitored very closely. Blood work from today shows a Of 41 with a creatinine of 2.1. Sodium is at 140 with a potassium level of 4. The white cell count is 4 with a hemoglobin of 8.7. He remains on oxygen 3 L/min nasal cannula. He desaturates on room air oxygen. He is afebrile. He has a congested cough. A chest x-ray was also done today and it showed lower lobe pulmonary infiltrates/atelectasis which are essentially chronic and the patient has a right upper lobe nodular density that was noted before. He is resting comfortably in bed. No other new complaints otherwise for now On today's evaluation of 05/09/2023, the patient is being seen for a follow-up. Creatinine is at 2.2 with a BUN of 30. The patient is receiving IV Bactrim. Still symptomatic. Still having cough and congestion and producing limited amount of mucus. Chest x-ray from yesterday showed lower lobe bilaterally pulmonary infiltrates and the patient's procalcitonin level is at 0.24. Remains on oxygen and he is still on 3 L O2 nasal cannula. No interval worsening shortness of breath. Nevertheless, no significant improvement. On 05/10/2023, the patient denies having any major improvement in his overall respiratory status. Remains on IV Bactrim. Creatinine is at 2.2. No new comp laints otherwise for now. Remains on 3 L of oxygen by nasal cannula. No pleurisy or hemoptysis or chest pain. Afebrile. ID is on the case. Feels weak and lethargic and no altered mentation. No other new complaints otherwise for now. The patient is seen today May 11, 2023 for follow-up on the regular medical floor. He is resting in bed. Awake and alert in no acute distress. Continues with a loose productive cough. Maintaining O2 saturations in the upper 90s on 4 L/min per nasal cannula. Sodium 134. Potassium 5.1. Bicarb 27. BUN 36. Creatinine 2.41. Most recent bronchoscopy lavage cultures on 05/01/2023 were positive for stenotrophomonas maltophilia. He is currently on Bactrim and Zosyn. Infectious diseases following. He remains on DuoNeb ventilations, Pulmicort and Perforomist inhalations, Solu-Medrol. Lovenox for DVT prophylaxis. The patient is seen today May 12, 2023 in follow-up on the regular medical floor. He is currently sitting up at the bedside. Awake and alert in no acute distress. He has ongoing issues with shortness of breath mostly on exertion. S till with lots of cough and congestion. He is maintaining O2 saturations up to 100% on 5 L high flow nasal cannula. He is afebrile. Hemodynamically stable. White count 4.5. Hemoglobin 7.9. Platelets 158. BUN 2.38. C-reactive protein 4.4. Procalcitonin 0.30. He remains on DuoNeb inhalations, Pulmicort and Perforomist inhalation, Singulair, Mucinex and Solu-Medrol. Lovenox for DVT prophylaxis. He remains on antibiotics in the form of Zosyn and Bactrim Patient is seen today May 13, 2023 in follow-up on the regular medical floor. He is awake and alert in no acute distress. Sitting up at the bedside. He is breathing a bit easier today compared to yesterday. Less wheezing. He has been slow to progress. Sputum culture positive for gram-negative bacilli. He remains on Bactrim and Zosyn. Continued on bronchodilators and steroids. Maintaining O2 saturations in the high 90s on 5 L nasal cannula. Afebrile. Hemodynamically stable. The patient is seen today May 14, 2023 in follow-up on the regular medical floor. He is up ambulating in his room. Awake and alert in no acute distress. Feeling a bit better today compared to yesterday. Still requiring 4 L of oxygen to maintain O2 saturations in the 90s. Follow-up chest x-ray continues to show chronic bilateral pleural effusions with scattered mid and lower lung zone infiltrates with bands of atelectasis. No significant change. Sputum culture positive for E. coli. Creatinine 2.48. GFR 24. His Bactrim was discontinued. He is currently on doxycycline and Zosyn. Remains on bronchodilators and steroids. Lovenox for DVT prophylaxis. Objective - Vital Signs Vital signs: Vital Signs Temp 98.1 F 05/14/23 14:02 Pulse 79 05/14/23 14:02 Resp 18 05/14/23 14:02 BP 144/64 05/14/23 14:02 Pulse Ox 99 05/14/23 14:02 FiO2 Intake & Output 05/13/23 05/14/23 05/14/23 18:59 06:59 18:59 Output Total 200 900 Balance -200 -900 Weight 68.039 kg Output: Urine 200 900 - Exam GENERAL EXAM: Alert, thin pleasant 77-year-old male, ambulating in his room, on 4 L nasal cannula, in no apparent distress. HEAD: Normocephalic. EYES: Normal reaction of pupils, equal size. NOSE: Clear with pink turbinates. THROAT: No erythema or exudates. NECK: No masses, no JVD. CHEST: No chest wall deformity. LUNGS: Equal air entry with faint crackles in the bilateral bases scattered rhonchi. Diminished. CVS: S1 and S2 normal with no audible murmur, regular rhythm. ABDOMEN: Dressing/binder in place. No hepatosplenomegaly, normal bowel sounds, no guarding or rigidity. SPINE: No scoliosis or deformity SKIN: No rashes CENTRAL NERVOUS SYSTEM: No focal deficits, tone is normal in all 4 extremities. EXTREMITIES: There is no peripheral edema. No clubbing, no cyanosis. Peripheral pulses are intact. - Labs CBC & Chem 7: 05/12/23 06:33 05/14/23 05:50 Labs: Abnormal Lab Results - Last 24 Hours (Table) 05/13/23 05/14/23 Range/Units 14:34 05:50 Sodium 135 L (137-145) mmol/L BUN 35 H (9-20) mg/dL Creatinine 2.65 H 2.48 H (0.66-1.25) mg/dL Glucose 150 H (74-99) mg/dL Microbiology - Last 24 Hours (Table) 05/12/23 11:02 Gram Stain - Final Sputum Sputum Culture - Final Escherichia coli Jaimie albicans Assessment and Plan Assessment: Acute COPD exacerbation with ongoing respiratory difficulties and cough and hypoxemic respiratory failure. The patient has recurrent respiratory tract i nfection with gram-negative bacteria including Pseudomonas/stenotrophomonas and E. coli and gram-positive bacteria including MRSA. The patient was recently treated with Zyvox for his MRSA infection. 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 The patient is symptomatic with excessive respiratory secretions and mucus production and ongoing shortness of breath. Sputum sample reveals E. coli. Follow-up chest x-ray showing similar findings with bilateral lower lobe pulmonary infiltrate/atelectasis. He remains on Zosyn and doxycycline. Severe COPD with chronic hypoxic respiratory failure maintained on Trelegy Ellipta on outpatient basis in addition to DuoNeb [facility] Recurrent respiratory tract infection with Pseudomonas aeruginosa/stenotrophomonas and the patient has been maintained on inhaled tobramycin on outpatient basis every other month Previous history of MRSA lung infection treated with Zyvox Chronic stage III kidney disease Severe tracheobronchomalacia Previous multiple bronchoscopies Previous history of a lung mass treated with SBRT and subsequent PET/CT showed no significant metabolic activity History of renal mass treated by cryotherapy Previous history of DVT and pulmonary embolism maintained on anticoagulation and the patient has factor V Leyden Hypertension Obstructive sleep apnea Diverticulosis with previous history of diverticulitis and the patient has undergone previous colectomy and colostomy for colonic perforation Chronic anemia of chronic disease Plan: The patient was seen and evaluated Chest x-ray, labs and medications reviewed Will give Lasix 40 mg IVP x 1 Antibiotics now Zosyn and doxycycline Sputum culture revealing E. coli Titrate the FiO2 as tolerated Probable discharge in the a.m. We will continue to follow I have personally seen and examined the patient, performed the documentation and the assessment and plan as written. Number of minutes spent on the visit: 10.
[2023-05-14] MEDS: FUROSEMIDE 40 MG TAB PO SCH (15:28)
--- NOTE | 2023-05-14 17:06 | P.PN ---
Progress Note - Text Progress Note Date: 05/14/23 Chief Complaint: Cough Patient is a 77-year-old male with a past medical history of COPD on home oxygen 2 L as needed, , history of bronchial stent placement/removal, CKD stage III, history of lung cancer, history of DVT, hypertension anxiety and prior history of smoking presents underwent extensive lysis of adhesions, small bowel resection and repair of incisional hernia on 02/09/2022.reversal of ostomy and repair of incisional hernia done on November 14, 2022.-. Patient send repeated pneumonias. Also had bronchoscopy with lavages Patient has been having respiratory infection outpatient. Was given 10-day course of Zyvox. Then had a break. Underwent bronchoscopy with lavage on May 01, [address] Cortez. Cultures have come back showing Stenotrophomonas maltophilia. Based on the cultures patient be admitted for IV antibiotics. Started on IV Bactrim. ID consulted Patient is coughing of sputum. Appetite is fair. Short of breath. Some wheezing. Normally uses 2 L of oxygen at home as needed currently using 3 L at all times. May 07: Patient remains on IV Bactrim being followed by ID. Waiting on sensitivity. To minocycline. Cough. Some sputum production. Tolerating diet. May 2: Some cough. Little sputum. Creatinine 2.2. ID is waiting for sensitivity on minocycline. Remains on IV Bactrim. Eating well. Getting IV fluids being followed by nephrology. May 3: Not much change clinically. Continues on continue IV Bactrim. Pending further input from ID depending upon sensitivity. Tolerating diet. Discussed with Dr. Cortez. Possible bronchial lavage by Dr. Howard. Tomorrow May 10: Remains on IV Bactrim. Creatinine up to 2.41. Being followed by nephrology and ID. At this point no plan for lavage per pulmonary. May 11: Dose of Bactrim adjusted by pharmacy per ID. Short of breath. Congested cough. No plans for lavage per pulmonary. Other medications to continue. May 12: Remains on IV Bactrim. No sputum production. Breathing a bit better. Was increased on IV Solu-Medrol to 60 mg every 6 hours. By pulmonary some decrease in appetite.. May 13: No sputum production. Breathing slightly better. Remains on high-dose Solu-Medrol. Has been switched on to IV Zosyn. IV Bactrim resolved. Sputum cultures growing E. coli and Jaimie albicans. Also patient switched over to IV doxycycline Active Medications Acetaminophen (Acetaminophen Tab 325 Mg Tab) 650 mg PO Q6HR PRN PRN Reason: Mild Pain or Fever > 100.5 Albuterol/Ipratropium (Ipratropium-Albuterol 3 Ml Neb) 3 ml INHALATION RT-QID [facility] Last Admin: 05/14/23 12:54 Dose: 3 ml Albuterol/Ipratropium (Ipratropium-Albuterol 3 Ml Neb) 3 ml INHALATION RT-Q2H PRN PRN Reason: Shortness Of Breath Or Wheezing Last Admin: 05/12/23 02:44 Dose: 3 ml Allopurinol (Allopurinol 100 Mg Tab) 100 mg PO [facility] Last Admin: 05/13/23 20:37 Dose: 100 mg Alprazolam (Alprazolam 0.5 Mg Tab) 0.5 mg PO BID PRN PRN Reason: Anxiety Last Admin: 05/13/23 09:20 Dose: 0.5 mg Alprazolam (Alprazolam 0.5 Mg Tab) 0.5 mg PO [facility] Last Admin: 05/13/23 20:37 Dose: 0.5 mg Aspirin (Aspirin 81 Mg) 81 mg PO DAILY [facility] Last Admin: 05/14/23 08:35 Dose: 81 mg Budesonide (Budesonide 1 Mg/2 Ml Nebu) 1 mg INHALATION RT-BID [facility] Last Admin: 05/14/23 07:46 Dose: 1 mg Calcium Carbonate/Glycine (Calcium Carbonate 500 Mg Chewable) 1,000 mg PO Q4HR PRN PRN Reason: Dyspepsia Cholecalciferol (Cholecalciferol 25 Mcg (1000 Iu) Tablet) 75 mcg PO DAILY [facility] Last Admin: 05/14/23 08:35 Dose: 75 mcg Cyanocobalamin (Cyanocobalamin 500 Mcg Tab) 1,000 mcg PO DAILY [facility] Last Admin: 05/14/23 08:35 Dose: 1,000 mcg Darbepoetin Bobby (Darbepoetin Bobby 40 Mcg/0.4 Ml Syringe) 40 mcg SQ Q7D [facility] Last Admin: 05/08/23 13:38 Dose: 40 mcg Doxazosin Mesylate (Doxazosin 4 Mg Tab) 4 mg PO [facility] Last Admin: 05/13/23 20:37 Dose: 4 mg Enoxaparin Sodium (Enoxaparin 30 Mg/0.3 Ml Syringe) 30 mg SQ DAILY [facility] Last Admin: 05/14/23 08:35 Dose: 30 mg Folic Acid (Folic Acid 1 Mg Tab) 1 mg PO DAILY [facility] Last Admin: 05/14/23 08:35 Dose: 1 mg Formoterol Fumarate (Formoterol Fumarate 20 Mcg/2 Ml Nebu) 20 mcg INHALATION RT-BID [facility] Last Admin: 05/14/23 07:46 Dose: 20 mcg Furosemide (Furosemide 40 Mg Tab) 40 mg PO BID@0900,1600 [facility] Last Admin: 05/14/23 15:28 Dose: 40 mg Guaifenesin (Guaifenesin 600 Mg Tablet.Er) 600 mg PO QID [facility] Last Admin: 05/14/23 13:35 Dose: 600 mg Piperacillin Sod/Tazobactam (Sod 3.375 gm/ Sodium Chloride) 100 mls @ 25 mls/hr IVPB Q8H [facility]; Protocol Last Admin: 05/14/23 08:34 Dose: 25 mls/hr Doxycycline Hyclate 100 mg/ (Sodium Chloride) 100 mls @ 100 mls/hr IVPB Q12HR [facility]; Protocol Last Admin: 05/14/23 10:44 Dose: 100 mls/hr Lactobacillus Acidophilus (Lactobacillus Acidophilus/Pect 1 Each Capsule) 1 each PO DAILY [facility] Last Admin: 05/14/23 08:35 Dose: 1 each Lactulose (Lactulose 20 Gm/30 Ml Cup) 20 gm PO DAILY PRN PRN Reason: Constipation Magnesium Oxide (Magnesium Oxide 400 Mg Tab) 400 mg PO BID [facility] Last Admin: 05/14/23 08:35 Dose: 400 mg Methylprednisolone Sodium Succinate (Methylprednisolone Sod Succi 125 Mg/2 Ml Vial) 60 mg IV Q6HR [facility] Last Admin: 05/14/23 11:54 Dose: 60 mg Metoprolol Tartrate (Metoprolol Tartrate 25 Mg Tab) 25 mg PO BID [facility] Last Admin: 05/14/23 08:35 Dose: 25 mg Montelukast Sodium (Montelukast 10 Mg Tab) 10 mg PO HS [facility] Last Admin: 05/13/23 20:38 Dose: 10 mg Naloxone HCl (Naloxone 0.4 Mg/Ml 1 Ml Vial) 0.2 mg IV Q2M PRN PRN Reason: Opioid Reversal Ondansetron HCl (Ondansetron 4 Mg/2 Ml Vial) 4 mg IVP Q8HR PRN PRN Reason: Nausea And Vomiting Polyethylene Glycol (Polyethylene Glycol 3350 17 Gm Powd.Pack) 17 gm PO DAILY PRN PRN Reason: Constipation Last Admin: 05/13/23 20:38 Dose: 17 gm Sodium Bicarbonate (Sodium Bicarbonate Tab 650 Mg Tab) 650 mg PO DAILY [facility] Last Admin: 05/14/23 08:35 Dose: 650 mg Sodium Zirconium Cyclosilicate (Sodium Zirconium Cyclosilicate 10 Gm Packet) 10 gm PO DAILY [facility] Last Admin: 05/14/23 08:35 Dose: 10 gm Temazepam (Temazepam 15 Mg Cap) 15 mg PO HS PRN PRN Reason: Insomnia Physical examination: VITAL SIGNS: 98.1, 79, 18, 144 x 64, 99% on 4 L GENERAL: Sitting at the edge of the bed EYES: Pupils equal. Conjunctiva wisam l. HEENT: External appearance of nose and ears normal, oral cavity grossly normal. NECK: JVD not raised; masses not palpable. HEART: First and second heart sounds are normal; some edema. LUNGS: Respiratory rate increased; diminished breath sounds, decreased scattered crackles. ABDOMEN: Soft, nontender, liver spleen not palpable, no masses palpable. PSYCH: Alert and oriented x3; mood and affect tired l. MUSCULOSKELETAL:No Clubbing/cyanosis;muscles-grossly intact. OA INVESTIGATIONS, reviewed in the clinical context: Sputum culture [May 11] E. coli and Jaimie May 12: BUN 35 creatinine 2.65 creatinine 5 procalcitonin 0.3 May 11: White count 4.5 hemoglobin 7.9 platelets 158 creatinine 2.38 procalcitonin 0.30 May 10: Sodium 134 potassium 5.1 BUN 36 creatinine 2.41 May 08: Potassium 4.4 creatinine 2.2 May 07: White count 4.0 hemoglobin 8.7 platelets 176 potassium 4 creatinine 2.1 May 07, 2023: White count 4.6 hemoglobin 10.9 platelets 184 potassium 4.3 BUN 49 creatinine 1.94 EKG tracing personally reviewed by me-right bundle bud block. Sinus rhythm. PVC. Previous labs: Sputum culture [May 01] Stenotrophomonas maltophilia Assessment and plan: -Pneumonia secondary to Stenotrophomonas maltophilia diagnosed on sputum culture following bronchoscopy with lavage on May [address] Cortez: Sputum culture growing E. coli from [May 11] IV Bactrim discontinued because of worsening renal function. IV doxycycline and IV Zosyn started -Acute COPD exacerbation in an ex-smoker: Slow to respond Peroformorist/Pulmicort nebulizer twice daily. Atrovent nebulizer. IV Solu-Medrol 60 mg every 6 -Acute on chronic hypoxic respiratory failure: Slow to respond On home oxygen 2 L at night. Currently on 5 L at all times Chronic kidney disease stage III baseline creatinine level -Creatinine 1.4 -Acute kidney injury, likely ATN from Bactrim Current creatinine 2.38 Being followed by nephrology -Anemia of chronic kidney disease. Iron deficiency anemia. Has received IV iron in the past -Chronic hyperkalemia from underlying COPD Chronically on Lokelma -Reversal of colostomy and umbilical hernia repair on 11/14/2022. Wound care to continue Right upper lobe pulmonary nodule. Patient had PET scan and was treated with SBRT Obstructive sleep apnea not on CPAP Chronic hypoxic respiratory failure, from underlying COPD -on home oxygen 2 L at night -Chronic dysphagia On nectar thick liquids. Chin tuck History of DVT Essential Hypertension -Lopressor 25 mg twice a day Continue current medications. Antibiotics changed to IV Zosyn and IV doxycycl ine. Follow-up with pulmonary and ID. Past Medical History Past Medical History: Blood Disorder, Cancer, COPD, Deep Vein Thrombosis (DVT), GERD/Reflux, Hypertension, Pneumonia, Renal Disease Additional Past Medical History / Comment(s): currently exasperbated SOB and productive coughing,hx of pseudomonus lung infection, O2 @ 3L ATC, diverticulits, Factor V Leiden, hx of bronchial silicone stent now removed, PICC line in past now removed, past hx dialysis for kidney damage-was in the hospital for 1 month 2016-none currently, Stage 3 renal disease, Lung cancer - diagnosed and treated down in [place] 2019, colostomy for tx of hole in colon and bladder- later reversal History of Any Multi-Drug Resistant Organisms: MRSA, Other MDRO Date of last positivie culture/infection: 04/13/23 MRSA; 12/24/22 MDRO Pseudomonas MDRO Source:: Sputum-MDRO & MRSA Past Surgical History: Hernia Repair, Tonsillectomy Additional Past Surgical History / Comment(s): bronchoscopy, bronchial silicone stent, now removed, fatty tumor removed from chest area, COLONOSCOPY, alexandre cataract, incisional hernia repair, ileostomy/colostomy reversal Past Anesthesia/Blood Transfusion Reactions: Previous Problems w/ Anesthesia Additional Past Anesthesia/Blood Transfusion Reaction / Comment(s): "as turned black and blue from ETHER". FACTOR V LEIDEN. no problems w/ prior blood transfusion Past Psychological History: Anxiety Smoking Status: Former smoker
[2023-05-15 06:54] LABS: African American GFR (CKD) 27 (>60 ml/min/1.73 sqM); Non-African American GFR(CKD) 24 (>60 ml/min/1.73 sqM)
--- NOTE | 2023-05-15 13:52 | P.PN ---
Subjective Progress Note Date: 05/15/23 This patient is 77 with known history of advanced COPD and severe tracheobronchomalacia in addition to her previous history of a lung mass that was treated by SBRT and previous history of renal cell mass she is by cryotherapy who has had several and recurrent respiratory tract infection with various gram-negative microorganisms including Pseudomonas aeruginosa and gram- positive organisms including MRSA. Looking at the various sputum samples that the patient has had, the patient had MRSA infection back in 02/17/2023 and subsequently on 04/13/2023 and the patient was treated on outpatient basis with Z yvox. As far as gram-negative infections, the patient had a combination of E. coli and stenotrophomonas on 03/10/2023. He continues to be symptomatic and the patient underwent a bronchoscopy endobronchial lavage on 05/01/2023 and there was recurrent infection with stenotrophomonas and this was resistant to Levaquin and Fortaz. It was sensitive to Bactrim. However, there was concern about patient by treatment with Bactrim as the patient is known to have chronic kidney disease, stage III. Based on that, the patient was asked to come into the hospital to be hospitalized for inpatient treatment. ID consultation will be obtained in regards to further advice for antibiotic management. The patient is currently on oxygen and he is on 3 L with a pulse ox of 98% he is afebrile. He has a congested cough and ongoing sputum production. No altered mentation. Appetite is good. No other specific complaints otherwise for now. In terms of his COPD, he has been maintained on Trelegy Ellipta on outpatient basis. His oxygen dependent over this past 6 months at least and the patient is having to use albuterol nebulized treatments [id number] as needed. He also uses inhaled tobramycin on outpatient basis regarding recurrent gram-negative and pseudomonal infections. This is being utilized every other month.the patient's most recent CAT scan of the chest abdomen and pelvis showed small bilateral pleural effusions and right lower lobe pulmonary nodule that has remained stable and the patient also has an ascending aortic aneurysm measuring 4.5 cm. This was done on 12/23/2022. The most recent echocardiogram that was done on 12/21/2022 showed a normal LV, elevated RVSP, moderate tricuspid regurgitation. On today's evaluation of 05/08/2023, the patient remains on IV Bactrim. The renal function is being monitored very closely. Blood work from today shows a Of 41 with a creatinine of 2.1. Sodium is at 140 with a potassium level of 4. The white cell count is 4 with a hemoglobin of 8.7. He remains on oxygen 3 L/min nasal cannula. He desaturates on room air oxygen. He is afebrile. He has a congested cough. A chest x-ray was also done today and it showed lower lobe pulmonary infiltrates/atelectasis which are essentially chronic and the patient has a right upper lobe nodular density that was noted before. He is resting comfortably in bed. No other new complaints otherwise for now On today's evaluation of 05/09/2023, the patient is being seen for a follow-up. Creatinine is at 2.2 with a BUN of 30. The patient is receiving IV Bactrim. Still symptomatic. Still having cough and congestion and producing limited amount of mucus. Chest x-ray from yesterday showed lower lobe bilaterally pulmonary infiltrates and the patient's procalcitonin level is at 0.24. Remains on oxygen and he is still on 3 L O2 nasal cannula. No interval worsening shortness of breath. Nevertheless, no significant improvement. On 05/10/2023, the patient denies having any major improvement in his overall respiratory status. Remains on IV Bactrim. Creatinine is at 2.2. No new comp laints otherwise for now. Remains on 3 L of oxygen by nasal cannula. No pleurisy or hemoptysis or chest pain. Afebrile. ID is on the case. Feels weak and lethargic and no altered mentation. No other new complaints otherwise for now. The patient is seen today May 11, 2023 for follow-up on the regular medical floor. He is resting in bed. Awake and alert in no acute distress. Continues with a loose productive cough. Maintaining O2 saturations in the upper 90s on 4 L/min per nasal cannula. Sodium 134. Potassium 5.1. Bicarb 27. BUN 36. Creatinine 2.41. Most recent bronchoscopy lavage cultures on 05/01/2023 were positive for stenotrophomonas maltophilia. He is currently on Bactrim and Zosyn. Infectious diseases following. He remains on DuoNeb ventilations, Pulmicort and Perforomist inhalations, Solu-Medrol. Lovenox for DVT prophylaxis. The patient is seen today May 12, 2023 in follow-up on the regular medical floor. He is currently sitting up at the bedside. Awake and alert in no acute distress. He has ongoing issues with shortness of breath mostly on exertion. S till with lots of cough and congestion. He is maintaining O2 saturations up to 100% on 5 L high flow nasal cannula. He is afebrile. Hemodynamically stable. White count 4.5. Hemoglobin 7.9. Platelets 158. BUN 2.38. C-reactive protein 4.4. Procalcitonin 0.30. He remains on DuoNeb inhalations, Pulmicort and Perforomist inhalation, Singulair, Mucinex and Solu-Medrol. Lovenox for DVT prophylaxis. He remains on antibiotics in the form of Zosyn and Bactrim Patient is seen today May 13, 2023 in follow-up on the regular medical floor. He is awake and alert in no acute distress. Sitting up at the bedside. He is breathing a bit easier today compared to yesterday. Less wheezing. He has been slow to progress. Sputum culture positive for gram-negative bacilli. He remains on Bactrim and Zosyn. Continued on bronchodilators and steroids. Maintaining O2 saturations in the high 90s on 5 L nasal cannula. Afebrile. Hemodynamically stable. The patient is seen today May 14, 2023 in follow-up on the regular medical floor. He is up ambulating in his room. Awake and alert in no acute distress. Feeling a bit better today compared to yesterday. Still requiring 4 L of oxygen to maintain O2 saturations in the 90s. Follow-up chest x-ray continues to show chronic bilateral pleural effusions with scattered mid and lower lung zone infiltrates with bands of atelectasis. No significant change. Sputum culture positive for E. coli. Creatinine 2.48. GFR 24. His Bactrim was discontinued. He is currently on doxycycline and Zosyn. Remains on bronchodilators and steroids. Lovenox for DVT prophylaxis. The patient is seen today May 15, 2023 in follow-up on the regular medical floor. He is awake and alert in no acute distress. Continues to improve daily. He has been slow to progress. Continues to maintain good O2 saturations in the 90s on 3 L/min per nasal cannula. Sputum culture was positive for E. coli and Jaimie. Creatinine 2.50. He is on Lasix 40 mg twice daily per nephrology. Continued on bronchodilators, steroids, Singulair. Remains on antibiotics in t he form of Zosyn and doxycycline. Lovenox for DVT prophylaxis. Objective - Vital Signs Vital signs: Vital Signs Temp 97.4 F L 05/15/23 06:57 Pulse 70 05/15/23 12:12 Resp 19 05/15/23 06:57 BP 133/66 05/15/23 06:57 Pulse Ox 95 05/15/23 06:57 FiO2 Intake & Output 05/14/23 05/15/23 05/15/23 18:59 06:59 18:59 Output Total 600 Balance -600 Output: Urine 600 Other: Voiding Method Toilet Urinal # Voids 3 - Exam GENERAL EXAM: Alert, 77-year-old male, on 4 L nasal cannula, in no apparent distress. HEAD: Normocephalic. EYES: Normal reaction of pupils, equal size. NOSE: Clear with pink turbinates. THROAT: No erythema or exudates. NECK: No masses, no JVD. CHEST: No chest wall deformity. LUNGS: Equal air entry with faint crackles in the bilateral bases scattered rhonchi. Diminished. CVS: S1 and S2 normal with no audible murmur, regular rhythm. ABDOMEN: Dressing/binder in place. No hepatosplenomegaly, normal bowel sounds, no guarding or rigidity. SPINE: No scoliosis or deformity SKIN: No rashes CENTRAL NERVOUS SYSTEM: No focal deficits, tone is normal in all 4 extremities. EXTREMITIES: There is no peripheral edema. No clubbing, no cyanosis. Peripheral pulses are intact. - Labs CBC & Chem 7: 05/12/23 06:33 05/15/23 06:09 Labs: Abnormal Lab Results - Last 24 Hours (Table) 05/15/23 Range/Units 06:09 Creatinine 2.50 H (0.66-1.25) mg/dL Microbiology - Last 24 Hours (Table) 05/12/23 11:02 Gram Stain - Final Sputum Sputum Culture - Final Escherichia coli Jaimie albicans Assessment and Plan Assessment: Acute COPD exacerbation with ongoing respiratory difficulties and cough and hypoxemic respiratory failure. The patient has recurrent respiratory tract infection with gram-negative bacteria including Pseudomonas/stenotrophomonas and E. coli and gram-positive bacteria including MRSA. The patient was recently treated with Zyvox for his MRSA infection. 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 The patient is symptomatic with excessive respiratory secretions and mucus production and ongoing shortness of breath. Sputum sample reveals E. coli. Follow-up chest x-ray showing similar findings with bilateral lower lobe pulmonary infiltrate/atelectasis. He remains on Zosyn and doxycycline. Severe COPD with chronic hypoxic respiratory failure maintained on Trelegy Ellipta on outpatient basis in addition to [facility] Recurrent respiratory tract infection with Pseudomonas aeruginosa/stenotrophomonas and the patient has been maintained on inhaled tobramycin on outpatient basis every other month Previous history of MRSA lung infection treated with Zyvox Chronic stage III kidney disease Severe tracheobronchomalacia Previous multiple bronchoscopies Previous history of a lung mass treated with SBRT and subsequent PET/CT showed no significant metabolic activity History of renal mass treated by cryotherapy Previous history of DVT and pulmonary embolism maintained on anticoagulation and the patient has factor V Leyden Hypertension Obstructive sleep apnea Diverticulosis with previous history of diverticulitis and the patient has archiee parveenne previous colectomy and colostomy for colonic perforation Chronic anemia of chronic disease Plan: The patient was seen and evaluated Labs and medications reviewed On Lasix 40 mg p.o. twice daily per nephrology Continue Zosyn and doxycycline Titrate the FiO2 as tolerated We will continue to follow I have personally seen and examined the patient, performed the documentation and the assessment and plan as written. Number of minutes spent on the visit: 10.
--- NOTE | 2023-05-15 15:45 | P.PN ---
Subjective Patient is seen for follow-up for chronic kidney disease stage IIIb with baseline creatinine 1.6 to 1.9 mg/dL. He was admitted with respiratory symptoms for further treatment of pneumonia. Patient was maintained on IV Bactrim which has now been discontinued. Serum creatinine staying at 2.4-2.5 mg/dL. Good urine output Blood pressure is not low. Maintained on 3 L of oxygen via nasal cannula. No shortness of breath today. Maintained on low-dose loop diuretics. Objective - Vital Signs Vital signs: Vital Signs Temp 97.9 F 05/15/23 13:41 Pulse 78 05/15/23 13:41 Resp 18 05/15/23 13:41 BP 147/69 05/15/23 13:41 Pulse Ox 96 05/15/23 13:41 FiO2 Intake & Output 05/14/23 05/15/23 05/15/23 18:59 06:59 18:59 Output Total 600 Balance -600 Output: Urine 600 Other: Voiding Method Toilet Urinal # Voids 3 - Exam Patient is awake, comfortable, no acute distress Examination of the heart S1 and S2 Examination of the lungs shows decreased breath sounds at the bases. No w heezing Abdomen is nondistended Examination of lower extremities shows 1+ edema [employer] exam grossly intact - Labs CBC & Chem 7: 05/12/23 06:33 05/15/23 06:09 Labs: Abnormal Lab Results - Last 24 Hours (Table) 05/15/23 Range/Units 06:09 Creatinine 2.50 H (0.66-1.25) mg/dL Microbiology - Last 24 Hours (Table) 05/12/23 11:02 Gram Stain - Final Sputum Sputum Culture - Final Escherichia coli Jaimie albicans Assessment and Plan Assessment: 1. Acute kidney injury secondary to ATN secondary to infection and also from Bactrim which will impair creatinine secretion. Creatinine 2.2-2.4 CAT scan from December 2022 showed no evidence of hydronephrosis. Bactrim now discontinued 2. Chronic kidney disease stage IIIb with baseline creatinine 1.6-1.9 secondary to nonrecovered ATN and multiple episodes of acute kidney injury. 3. Chronic hyperkalemia maintained on Lokelga outpatient. 4. Recurrent episodes of pneumonia. Last culture from May 01, 2023 positive for stenotrophomonas maltophilia. Being followed by infectious disease and pulmonology. 5. Chronic diastolic CHF and moderate tricuspid regurgitation. 6. Anemia of chronic kidney disease. 7. Volume overload Plan: Continue with scheduled dose of loop diuretics Repeat labs in a.m. Antibiotics as per ID
--- NOTE | 2023-05-15 15:48 | P.PN ---
Progress Note - Text Progress Note Date: 05/15/23 Chief Complaint: Cough Patient is a 77-year-old male with a past medical history of COPD on home oxygen 2 L as needed, , history of bronchial stent placement/removal, CKD stage III, history of lung cancer, history of DVT, hypertension anxiety and prior history of smoking presents underwent extensive lysis of adhesions, small bowel resection and repair of incisional hernia on 02/09/2022.reversal of ostomy and repair of incisional hernia done on November 14, 2022.-. Patient send repeated pneumonias. Also had bronchoscopy with lavages Patient has been having respiratory infection outpatient. Was given 10-day course of Zyvox. Then had a break. Underwent bronchoscopy with lavage on May 01, [address] Cortez. Cultures have come back showing Stenotrophomonas maltophilia. Based on the cultures patient be admitted for IV antibiotics. Started on IV Bactrim. ID consulted Patient is coughing of sputum. Appetite is fair. Short of breath. Some wheezing. Normally uses 2 L of oxygen at home as needed currently using 3 L at all times. May 07: Patient remains on IV Bactrim being followed by ID. Waiting on sensitivity. To minocycline. Cough. Some sputum production. Tolerating diet. May 2: Some cough. Little sputum. Creatinine 2.2. ID is waiting for sensitivity on minocycline. Remains on IV Bactrim. Eating well. Getting IV fluids being followed by nephrology. May 3: Not much change clinically. Continues on continue IV Bactrim. Pending further input from ID depending upon sensitivity. Tolerating diet. Discussed with Dr. Cortez. Possible bronchial lavage by Dr. Howard. Tomorrow May 10: Remains on IV Bactrim. Creatinine up to 2.41. Being followed by nephrology and ID. At this point no plan for lavage per pulmonary. May 11: Dose of Bactrim adjusted by pharmacy per ID. Short of breath. Congested cough. No plans for lavage per pulmonary. Other medications to continue. May 12: Remains on IV Bactrim. No sputum production. Breathing a bit better. Was increased on IV Solu-Medrol to 60 mg every 6 hours. By pulmonary some decrease in appetite.. May 13: No sputum production. Breathing slightly better. Remains on high-dose Solu-Medrol. Has been switched on to IV Zosyn. IV Bactrim resolved. Sputum cultures growing E. coli and Jaimie albicans. Also patient switched over to IV doxycycline May 14: Tired. Minimal sputum. Shortness of breath. Remains of high-dose of steroids. IV Zosyn. IV doxycycline. Nephrology put the patient on Lasix. Active Medications Acetaminophen (Acetaminophen Tab 325 Mg Tab) 650 mg PO Q6HR PRN PRN Reason: Mild Pain or Fever > 100.5 Albuterol/Ipratropium (Ipratropium-Albuterol 3 Ml Neb) 3 ml INHALATION RT-QID [facility] Last Admin: 05/15/23 12:01 Dose: 3 ml Albuterol/Ipratropium (Ipratropium-Albuterol 3 Ml Neb) 3 ml INHALATION RT-Q2H PRN PRN Reason: Shortness Of Breath Or Wheezing Last Admin: 05/12/23 02:44 Dose: 3 ml Allopurinol (Allopurinol 100 Mg Tab) 100 mg PO [facility] Last Admin: 05/14/23 21:38 Dose: 100 mg Alprazolam (Alprazolam 0.5 Mg Tab) 0.5 mg PO BID PRN PRN Reason: Anxiety Last Admin: 05/13/23 09:20 Dose: 0.5 mg Alprazolam (Alprazolam 0.5 Mg Tab) 0.5 mg PO [facility] Last Admin: 05/14/23 21:38 Dose: 0.5 mg Aspirin (Aspirin 81 Mg) 81 mg PO DAILY [facility] Last Admin: 05/15/23 08:48 Dose: 81 mg Budesonide (Budesonide 1 Mg/2 Ml Nebu) 1 mg INHALATION RT-BID [facility] Last Admin: 05/15/23 09:01 Dose: 1 mg Calcium Carbonate/Glycine (Calcium Carbonate 500 Mg Chewable) 1,000 mg PO Q4HR PRN PRN Reason: Dyspepsia Cholecalciferol (Cholecalciferol 25 Mcg (1000 Iu) Tablet) 75 mcg PO DAILY [facility] Last Admin: 05/15/23 08:48 Dose: 75 mcg Cyanocobalamin (Cyanocobalamin 500 Mcg Tab) 1,000 mcg PO DAILY [facility] Last Admin: 05/15/23 08:47 Dose: 1,000 mcg Darbepoetin Bobby (Darbepoetin Bobby 40 Mcg/0.4 Ml Syringe) 40 mcg SQ Q7D [facility] Last Admin: 05/15/23 13:46 Dose: 40 mcg Doxazosin Mesylate (Doxazosin 4 Mg Tab) 4 mg PO HS [facility] Last Admin: 05/14/23 21:39 Dose: 4 mg Enoxaparin Sodium (Enoxaparin 30 Mg/0.3 Ml Syringe) 30 mg SQ DAILY [facility] Last Admin: 05/15/23 08:47 Dose: 30 mg Folic Acid (Folic Acid 1 Mg Tab) 1 mg PO DAILY [facility] Last Admin: 05/15/23 08:47 Dose: 1 mg Formoterol Fumarate (Formoterol Fumarate 20 Mcg/2 Ml Nebu) 20 mcg INHALATION RT-BID [facility] Last Admin: 05/15/23 09:01 Dose: 20 mcg Furosemide (Furosemide 40 Mg Tab) 40 mg PO BID@0900,1600 [facility] Last Admin: 05/15/23 08:47 Dose: 40 mg Guaifenesin (Guaifenesin 600 Mg Tablet.Er) 600 mg PO QID [facility] Last Admin: 05/15/23 13:47 Dose: 600 mg Piperacillin Sod/Tazobactam (Sod 3.375 gm/ Sodium Chloride) 100 mls @ 25 mls/hr IVPB Q8H [facility]; Protocol Last Admin: 05/15/23 09:56 Dose: 25 mls/hr Doxycycline Hyclate 100 mg/ (Sodium Chloride) 100 mls @ 100 mls/hr IVPB Q12HR [facility]; Protocol Last Admin: 05/15/23 08:46 Dose: 100 mls/hr Lactobacillus Acidophilus (Lactobacillus Acidophilus/Pect 1 Each Capsule) 1 each PO DAILY [facility] Last Admin: 05/15/23 08:47 Dose: 1 each Lactulose (Lactulose 20 Gm/30 Ml Cup) 20 gm PO DAILY PRN PRN Reason: Constipation Magnesium Oxide (Magnesium Oxide 400 Mg Tab) 400 mg PO BID [facility] Last Admin: 05/15/23 08:47 Dose: 400 mg Methylprednisolone Sodium Succinate (Methylprednisolone Sod Succi 125 Mg/2 Ml Vial) 60 mg IV Q6HR [facility] Last Admin: 05/15/23 13:47 Dose: 60 mg Metoprolol Tartrate (Metoprolol Tartrate 25 Mg Tab) 25 mg PO BID [facility] Last Admin: 05/15/23 08:47 Dose: 25 mg Montelukast Sodium (Montelukast 10 Mg Tab) 10 mg PO HS [facility] Last Admin: 05/14/23 21:38 Dose: 10 mg Naloxone HCl (Naloxone 0.4 Mg/Ml 1 Ml Vial) 0.2 mg IV Q2M PRN PRN Reason: Opioid Reversal Ondansetron HCl (Ondansetron 4 Mg/2 Ml Vial) 4 mg IVP Q8HR PRN PRN Reason: Nausea And Vomiting Polyethylene Glycol (Polyethylene Glycol 3350 17 Gm Powd.Pack) 17 gm PO DAILY PRN PRN Reason: Constipation Last Admin: 05/14/23 21:38 Dose: 17 gm Sodium Bicarbonate (Sodium Bicarbonate Tab 650 Mg Tab) 650 mg PO DAILY [facility] Last Admin: 05/15/23 08:47 Dose: 650 mg Sodium Zirconium Cyclosilicate (Sodium Zirconium Cyclosilicate 10 Gm Packet) 10 gm PO DAILY [facility] Last Admin: 05/15/23 08:48 Dose: 10 gm Temazepam (Temazepam 15 Mg Cap) 15 mg PO HS PRN PRN Reason: Insomnia Physical examination: VITAL SIGNS: 97.9, 78, 18, 147 x 69, 96% on 3 L GENERAL: Sitting at the edge of the bed EYES: Pupils equal. Conjunctiva wisam l. HEENT: External appearance of nose and ears normal, oral cavity grossly normal. NECK: JVD not raised; masses not palpable. HEART: First and second heart sounds are normal; some edema. LUNGS: Respiratory rate increased; diminished breath sounds, decreased scattered crackles. ABDOMEN: Soft, nontender, liver spleen not palpable, no masses palpable. PSYCH: Alert and oriented x3; mood and affect tired l. MUSCULOSKELETAL:No Clubbing/cyanosis;muscles-grossly intact. OA INVESTIGATIONS, reviewed in the clinical context: May 14: Creatinine 2.5 Sputum culture [May 11] E. coli and Jaimie May 12: BUN 35 creatinine 2.65 creatinine 5 procalcitonin 0.3 May 11: White count 4.5 hemoglobin 7.9 platelets 158 creatinine 2.38 procalcitonin 0.30 May 10: Sodium 134 potassium 5.1 BUN 36 creatinine 2.41 May 08: Potassium 4.4 creatinine 2.2 May 07: White count 4.0 hemoglobin 8.7 platelets 176 potassium 4 creatinine 2.1 May 07, 2023: White count 4.6 hemoglobin 10.9 platelets 184 potassium 4.3 BUN 49 creatinine 1.94 EKG tracing personally reviewed by me-right bundle bud block. Sinus rhythm. PVC. Previous labs: Sputum culture [May 01] Stenotrophomonas maltophilia Assessment and plan: -Pneumonia secondary to Stenotrophomonas maltophilia diagnosed on sputum culture following bronchoscopy with lavage on May [address] Cortez: Sputum culture growing E. coli from [May 11] IV Bactrim discontinued because of worsening renal function. IV doxycycline and IV Zosyn s -Acute COPD exacerbation in an ex-smoker: Slow to respond Peroformorist/Pulmicort nebulizer twice daily. Atrovent nebulizer. IV Solu-Medrol 60 mg every 6 -Acute on chronic hypoxic respiratory failure: Slow to respond On home oxygen 2 L at night. Currently on 5 L at all times Chronic kidney disease stage III baseline creatinine level -Creatinine 1.4 -Acute kidney injury, likely ATN from Bactrim Current creatinine 2.38 Being followed by nephrology -Anemia of chronic kidney disease. Iron deficiency anemia. Has received IV iron in the past -Chronic hyperkalemia from underlying COPD Chronically on Lokelma -Reversal of colostomy and umbilical hernia repair on 11/14/2022. Wound care to continue Right upper lobe pulmonary nodule. Patient had PET scan and was treated with SBRT Obstructive sleep apnea not on CPAP Chronic hypoxic respiratory failure, from underlying COPD -on home oxygen 2 L at night -Chronic dysphagia On nectar thick liquids. Chin tuck History of DVT Essential Hypertension -Lopressor 25 mg twice a day Continue IV Zosyn and IV doxycycline. High-dose steroids. Follow with ID and pulmonary. Past Medical History Past Medical History: Blood Disorder, Cancer, COPD, Deep Vein Thrombosis (DVT), GERD/Reflux, Hypertension, Pneumonia, Renal Disease Additional Past Medical History / Comment(s): currently exasperbated SOB and productive coughing,hx of pseudomonus lung infection, O2 @ 3L ATC, diverticulits, Factor V Leiden, hx of bronchial silicone stent now removed, PICC line in past now removed, past hx dialysis for kidney damage-was in the hospital for 1 month 2016-none currently, Stage 3 renal disease, Lung cancer - diagnosed and treated down in [place] 2018, colostomy for tx of hole in colon and bladder- later reversal History of Any Multi-Drug Resistant Organisms: MRSA, Other MDRO Date of last positivie culture/infection: 04/13/23 MRSA; 12/24/22 MDRO Pseudomonas MDRO Source:: Sputum-MDRO & MRSA Past Surgical History: Hernia Repair, Tonsillectomy Additional Past Surgical History / Comment(s): bronchoscopy, bronchial silicone stent, now removed, fatty tumor removed from chest area, COLONOSCOPY, alexandre linda ract, incisional hernia repair, ileostomy/colostomy reversal Past Anesthesia/Blood Transfusion Reactions: Previous Problems w/ Anesthesia Additional Past Anesthesia/Blood Transfusion Reaction / Comment(s): "as infant turned black and blue from ETHER". FACTOR V LEIDEN. no problems w/ prior blood transfusion Past Psychological History: Anxiety Smoking Status: Former smoker
--- NOTE | 2023-05-15 22:02 | P.PN ---
Subjective Progress Note Date: 05/15/23 Principal diagnosis: Reason for follow-up is stenotrophomonas pneumonia Patient is a 77-year-old male with a past medical history significant for COPD DVT reflux hypertension renal disease patient did have a history of recurrent Pseudomonas pneumonia recently did have a outpatient bronchoscopy done on 05/01/2023 that did grew stenotrophomonas sensitive only to Bactrim DS because of his kidney function patient has been admitted to hospital for treatment. On today's evaluation that is 05/15/2023, Patient is afebrile patient is currently on 3 L nasal cannula oxygen and d breathing more comfortably today than yesterday the patient denies any chest pain and no worsening cough, the patient denies any nausea vomiting did not have any abdominal pain and no diarrhea. Patient creatinine is 2.50 today sputum finalized with E. coli and Jaimie Objective - Vital Signs Vital signs: Vital Signs Temp 97.4 F L 05/15/23 06:57 Pulse 74 05/15/23 09:25 Resp 19 05/15/23 06:57 BP 133/66 05/15/23 06:57 Pulse Ox 95 05/15/23 06:57 FiO2 Intake & Output 05/14/23 05/15/23 05/15/23 18:59 06:59 18:59 Output Total 600 Balance -600 Output: Urine 600 Other: # Voids 3 - Exam GENERAL DESCRIPTION: An elderly male up in bed in no distress RESPIRATORY SYSTEM: Unlabored breathing , coarse breath sounds bilaterally HEART: S1 S2 regular rate and rhythm , ABDOMEN: Soft , no tenderness EXTREMITIES: No edema feet - Labs CBC & Chem 7: 05/12/23 06:33 05/15/23 06:09 Labs: Abnormal Lab Results - Last 24 Hours (Table) 05/15/23 Range/Units 06:09 Creatinine 2.50 H (0.66-1.25) mg/dL Microbiology - Last 24 Hours (Table) 05/12/23 11:02 Gram Stain - Final Sputum Sputum Culture - Final Escherichia coli Jaimie albicans Assessment and Plan (1) Infection due to Stenotrophomonas maltophilia Current Visit: Yes Status: Acute Code(s): A49.8 - OTHER BACTERIAL INFECTIONS OF UNSPECIFIED SITE SNOMED Code(s): 62364748 (2) Pneumonia Current Visit: No Status: Acute Code(s): J18.9 - PNEUMONIA, UNSPECIFIED ORGANISM SNOMED Code(s): 724893309 Plan: 1patient was in the hospital with increasing shortness of breath and cough in this patient who did have end-stage COPD and bronchiectasis and history of recurrent pneumonia with recent bronchoscopy culture positive for drug-resistant Stenotrophomonas maltophilia, patient did have a history of renal insufficiency and high risk of nephrotoxicity from Bactrim DS. 2 sensitivity for minocycline is currently pending however per discussion with the micro lab on 05/14/2023 it is sensitive to tetracycline 3the patient repeat sputum culture currently growing E. coli and Jaimie patient to continue with the Zosyn to his organism sensitive and discontinue doxycycline Dictation was produced using [employer] dictation software. please excuse any grammatical, word or spelling errors.
--- NOTE | 2023-05-16 10:51 | P.PN ---
Subjective Patient is seen in follow-up for acute kidney injury on chronic kidney disease. On oral Lasix. Receiving antibiotics. Denies chest pain or shortness of breath. No active complaints at this time. Vital signs are stable. General: No acute distress. HEENT: Head exam is unremarkable. LUNGS: No audible rhonchi or wheezes. HEART: Rate and Rhythm are regular. ABDOMEN: Nontender. EXTREMITITES: 1+ edema. Objective - Vital Signs Vital signs: Vital Signs Temp 98.2 F 05/16/23 07:34 Pulse 78 05/16/23 08:25 Resp 17 05/16/23 07:34 BP 121/56 05/16/23 07:34 Pulse Ox 96 05/16/23 07:34 FiO2 Intake & Output 05/15/23 05/16/23 05/16/23 18:59 06:59 18:59 Other: Voiding Method Toilet Urinal # Voids 4 0 - Labs CBC & Chem 7: 05/12/23 06:33 05/15/23 06:09 Assessment and Plan Plan: Assessment: 1. Acute kidney injury secondary to ATN secondary to infection and also from Bactrim which will impair creatinine secretion. Off Bactrim. Now on Lasix. Creatinine 2.5 today. CAT scan from December 2022 showed no evidence of hydronephrosis. 2. Chronic kidney disease stage IIIb with baseline creatinine 1.6-1.9 secondary to nonrecovered ATN and multiple episodes of acute kidney injury. 3. Chronic hyperkalemia maintained on Lokelct outpatient. Stable. 4. Recurrent episodes of pneumonia. Last culture from May 01, 2023 positive for stenotrophomonas maltophilia. Being followed by infectious disease and pulmonology. 5. Acute on chronic diastolic CHF and moderate tricuspid regurgitation. 6. Anemia of chronic kidney disease. On Aranesp. Plan: Maintain Lasix. Avoid nephrotoxins. Continue to monitor renal function and urine output. Morning labs pending.
[2023-05-16 11:13] LABS: African American GFR (CKD) 28 (>60 ml/min/1.73 sqM); Anion Gap 11 mmol/L; Blood Urea Nitrogen 59 mg/dL (9-20); Calcium 8.3 mg/dL (8.4-10.2); Carbon Dioxide 26 mmol/L (22-30); Chloride 98 mmol/L (98-107); Glucose 296 mg/dL (74-99); Non-African American GFR(CKD) 24 (>60 ml/min/1.73 sqM); Potassium 3.9 mmol/L (3.5-5.1); Sodium 135 mmol/L (137-145)
--- NOTE | 2023-05-16 13:18 | P.PN ---
Subjective Progress Note Date: 05/16/23 This patient is 77 with known history of advanced COPD and severe tracheobronchomalacia in addition to her previous history of a lung mass that was treated by SBRT and previous history of renal cell mass she is by cryotherapy who has had several and recurrent respiratory tract infection with various gram-negative microorganisms including Pseudomonas aeruginosa and gram- positive organisms including MRSA. Looking at the various sputum samples that the patient has had, the patient had MRSA infection back in 02/17/2023 and subsequently on 04/13/2023 and the patient was treated on outpatient basis with Z yvox. As far as gram-negative infections, the patient had a combination of E. coli and stenotrophomonas on 03/10/2023. He continues to be symptomatic and the patient underwent a bronchoscopy endobronchial lavage on 05/01/2023 and there was recurrent infection with stenotrophomonas and this was resistant to Levaquin and Fortaz. It was sensitive to Bactrim. However, there was concern about patient by treatment with Bactrim as the patient is known to have chronic kidney disease, stage III. Based on that, the patient was asked to come into the hospital to be hospitalized for inpatient treatment. ID consultation will be obtained in regards to further advice for antibiotic management. The patient is currently on oxygen and he is on 3 L with a pulse ox of 98% he is afebrile. He has a congested cough and ongoing sputum production. No altered mentation. Appetite is good. No other specific complaints otherwise for now. In terms of his COPD, he has been maintained on Trelegy Ellipta on outpatient basis. His oxygen dependent over this past 6 months at least and the patient is having to use albuterol nebulized treatments [id number] as needed. He also uses inhaled tobramycin on outpatient basis regarding recurrent gram-negative and pseudomonal infections. This is being utilized every other month.the patient's most recent CAT scan of the chest abdomen and pelvis showed small bilateral pleural effusions and right lower lobe pulmonary nodule that has remained stable and the patient also has an ascending aortic aneurysm measuring 4.5 cm. This was done on 12/23/2022. The most recent echocardiogram that was done on 12/21/2022 showed a normal LV, elevated RVSP, moderate tricuspid regurgitation. On today's evaluation of 05/08/2023, the patient remains on IV Bactrim. The renal function is being monitored very closely. Blood work from today shows a Of 41 with a creatinine of 2.1. Sodium is at 140 with a potassium level of 4. The white cell count is 4 with a hemoglobin of 8.7. He remains on oxygen 3 L/min nasal cannula. He desaturates on room air oxygen. He is afebrile. He has a congested cough. A chest x-ray was also done today and it showed lower lobe pulmonary infiltrates/atelectasis which are essentially chronic and the patient has a right upper lobe nodular density that was noted before. He is resting comfortably in bed. No other new complaints otherwise for now On today's evaluation of 05/09/2023, the patient is being seen for a follow-up. Creatinine is at 2.2 with a BUN of 30. The patient is receiving IV Bactrim. Still symptomatic. Still having cough and congestion and producing limited amount of mucus. Chest x-ray from yesterday showed lower lobe bilaterally pulmonary infiltrates and the patient's procalcitonin level is at 0.24. Remains on oxygen and he is still on 3 L O2 nasal cannula. No interval worsening shortness of breath. Nevertheless, no significant improvement. On 05/10/2023, the patient denies having any major improvement in his overall respiratory status. Remains on IV Bactrim. Creatinine is at 2.2. No new comp laints otherwise for now. Remains on 3 L of oxygen by nasal cannula. No pleurisy or hemoptysis or chest pain. Afebrile. ID is on the case. Feels weak and lethargic and no altered mentation. No other new complaints otherwise for now. The patient is seen today May 11, 2023 for follow-up on the regular medical floor. He is resting in bed. Awake and alert in no acute distress. Continues with a loose productive cough. Maintaining O2 saturations in the upper 90s on 4 L/min per nasal cannula. Sodium 134. Potassium 5.1. Bicarb 27. BUN 36. Creatinine 2.41. Most recent bronchoscopy lavage cultures on 05/01/2023 were positive for stenotrophomonas maltophilia. He is currently on Bactrim and Zosyn. Infectious diseases following. He remains on DuoNeb ventilations, Pulmicort and Perforomist inhalations, Solu-Medrol. Lovenox for DVT prophylaxis. The patient is seen today May 12, 2023 in follow-up on the regular medical floor. He is currently sitting up at the bedside. Awake and alert in no acute distress. He has ongoing issues with shortness of breath mostly on exertion. S till with lots of cough and congestion. He is maintaining O2 saturations up to 100% on 5 L high flow nasal cannula. He is afebrile. Hemodynamically stable. White count 4.5. Hemoglobin 7.9. Platelets 158. BUN 2.38. C-reactive protein 4.4. Procalcitonin 0.30. He remains on DuoNeb inhalations, Pulmicort and Perforomist inhalation, Singulair, Mucinex and Solu-Medrol. Lovenox for DVT prophylaxis. He remains on antibiotics in the form of Zosyn and Bactrim Patient is seen today May 13, 2023 in follow-up on the regular medical floor. He is awake and alert in no acute distress. Sitting up at the bedside. He is breathing a bit easier today compared to yesterday. Less wheezing. He has been slow to progress. Sputum culture positive for gram-negative bacilli. He remains on Bactrim and Zosyn. Continued on bronchodilators and steroids. Maintaining O2 saturations in the high 90s on 5 L nasal cannula. Afebrile. Hemodynamically stable. The patient is seen today May 14, 2023 in follow-up on the regular medical floor. He is up ambulating in his room. Awake and alert in no acute distress. Feeling a bit better today compared to yesterday. Still requiring 4 L of oxygen to maintain O2 saturations in the 90s. Follow-up chest x-ray continues to show chronic bilateral pleural effusions with scattered mid and lower lung zone infiltrates with bands of atelectasis. No significant change. Sputum culture positive for E. coli. Creatinine 2.48. GFR 24. His Bactrim was discontinued. He is currently on doxycycline and Zosyn. Remains on bronchodilators and steroids. Lovenox for DVT prophylaxis. The patient is seen today May 15, 2023 in follow-up on the regular medical floor. He is awake and alert in no acute distress. Continues to improve daily. He has been slow to progress. Continues to maintain good O2 saturations in the 90s on 3 L/min per nasal cannula. Sputum culture was positive for E. coli and Jaimie. Creatinine 2.50. He is on Lasix 40 mg twice daily per nephrology. Continued on bronchodilators, steroids, Singulair. Remains on antibiotics in t he form of Zosyn and doxycycline. Lovenox for DVT prophylaxis. The patient is seen today May 16, 2023 in follow-up on the regular medical floor. He is currently sitting up at the bedside. Awake and alert in no acute distress. Continues to feel better each day. No worsening shortness of breath, cough or congestion. Continues to maintain good O2 saturations in the mid 90s on 3 L/min per nasal cannula. Afebrile. Hemodynamically stable. Sputum cultures positive for E. coli and Jaimie. Sodium 135. Potassium 3.9. Bicarb 26. BUN 59. Creatinine 2.47. Glucose 296. Continued on bronchodilators, steroids, Singulair. Remains on antibiotics in the form of Zosyn and doxycycline. Lovenox for DVT prophylaxis. Objective - Vital Signs Vital signs: Vital Signs Temp 98.2 F 05/16/23 07:34 Pulse 78 05/16/23 11:51 Resp 17 05/16/23 07:34 BP 121/56 05/16/23 07:34 Pulse Ox 96 05/16/23 07:34 FiO2 Intake & Output 05/15/23 05/16/23 05/16/23 18:59 06:59 18:59 Other: Voiding Method Toilet Urinal # Voids 4 0 - Exam GENERAL EXAM: Alert, pleasant 77-year-old male, sitting up in bed, on 3 L nasal cannula, in no apparent distress. HEAD: Normocephalic. EYES: Normal reaction of pupils, equal size. NOSE: Clear with pink turbinates. THROAT: No erythema or exudates. NECK: No masses, no JVD. CHEST: No chest wall deformity. LUNGS: Equal air entry with faint crackles in the bilateral bases scattered rhonchi. Diminished. CVS: S1 and S2 normal with no audible murmur, regular rhythm. ABDOMEN: Dressing/binder in place. No hepatosplenomegaly, normal bowel sounds, no guarding or rigidity. SPINE: No scoliosis or deformity SKIN: No rashes CENTRAL NERVOUS SYSTEM: No focal deficits, tone is normal in all 4 extremities. EXTREMITIES: There is no peripheral edema. No clubbing, no cyanosis. Peripheral pulses are intact. - Labs CBC & Chem 7: 05/12/23 06:33 05/16/23 09:56 Labs: Abnormal Lab Results - Last 24 Hours (Table) 05/16/23 Range/Units 09:56 Sodium 135 L (137-145) mmol/L BUN 59 H (9-20) mg/dL Creatinine 2.47 H (0.66-1.25) mg/dL Glucose 296 H (74-99) mg/dL Calcium 8.3 L (8.4-10.2) mg/dL Assessment and Plan Assessment: Acute COPD exacerbation with ongoing respiratory difficulties and cough and hypoxemic respiratory failure. The patient has recurrent respiratory tract infection with gram-negative bacteria including Pseudomonas/stenotrophomonas and E. coli and gram-positive bacteria including MRSA. The patient was recently treated with Zyvox for his MRSA infection. 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 The patient is symptomatic with excessive respiratory secretions and mucus production and ongoing shortness of breath. Sputum sample reveals E. coli. Follow-up chest x-ray showing similar findings with bilateral lower lobe pulmonary infiltrate/atelectasis. He remains on Zosyn and doxycycline. Severe COPD with chronic hypoxic respiratory failure maintained on Trelegy Ellipta on outpatient basis in addition to [facility] Recurrent respiratory tract infection with Pseudomonas aer uginosa/stenotrophomonas and the patient has been maintained on inhaled tobramycin on outpatient basis every other month Previous history of MRSA lung infection treated with Zyvox Chronic stage III kidney disease Severe tracheobronchomalacia Previous multiple bronchoscopies Previous history of a lung mass treated with SBRT and subsequent PET/CT showed no significant metabolic activity History of renal mass treated by cryotherapy Previous history of DVT and pulmonary embolism maintained on anticoagulation and the patient has factor V Leyden Hypertension Obstructive sleep apnea Diverticulosis with previous history of diverticulitis and the patient has undergone previous colectomy and colostomy for colonic perforation Chronic anemia of chronic disease Plan: The patient was seen and evaluated Labs and medications reviewed Continue the current treatment plan We will continue to follow I have personally seen and examined the patient, performed the documentation and the assessment and plan as written. Number of minutes spent on the visit: 10.
--- NOTE | 2023-05-16 13:38 | P.PN ---
Progress Note - Text Progress Note Date: 05/16/23 Chief Complaint: Cough Patient is a 77-year-old male with a past medical history of COPD on home oxygen 2 L as needed, , history of bronchial stent placement/removal, CKD stage III, history of lung cancer, history of DVT, hypertension anxiety and prior history of smoking presents underwent extensive lysis of adhesions, small bowel resection and repair of incisional hernia on 02/09/2022.reversal of ostomy and repair of incisional hernia done on November 14, 2022.-. Patient send repeated pneumonias. Also had bronchoscopy with lavages Patient has been having respiratory infection outpatient. Was given 10-day course of Zyvox. Then had a break. Underwent bronchoscopy with lavage on May 01, [address] Cortez. Cultures have come back showing Stenotrophomonas maltophilia. Based on the cultures patient be admitted for IV antibiotics. Started on IV Bactrim. ID consulted Patient is coughing of sputum. Appetite is fair. Short of breath. Some wheezing. Normally uses 2 L of oxygen at home as needed currently using 3 L at all times. May 07: Patient remains on IV Bactrim being followed by ID. Waiting on sensitivity. To minocycline. Cough. Some sputum production. Tolerating diet. May 2: Some cough. Little sputum. Creatinine 2.2. ID is waiting for sensitivity on minocycline. Remains on IV Bactrim. Eating well. Getting IV fluids being followed by nephrology. May 3: Not much change clinically. Continues on continue IV Bactrim. Pending further input from ID depending upon sensitivity. Tolerating diet. Discussed with Dr. Cortez. Possible bronchial lavage by Dr. Howard. Tomorrow May 10: Remains on IV Bactrim. Creatinine up to 2.41. Being followed by nephrology and ID. At this point no plan for lavage per pulmonary. May 11: Dose of Bactrim adjusted by pharmacy per ID. Short of breath. Congested cough. No plans for lavage per pulmonary. Other medications to continue. May 12: Remains on IV Bactrim. No sputum production. Breathing a bit better. Was increased on IV Solu-Medrol to 60 mg every 6 hours. By pulmonary some decrease in appetite.. May 13: No sputum production. Breathing slightly better. Remains on high-dose Solu-Medrol. Has been switched on to IV Zosyn. IV Bactrim resolved. Sputum cultures growing E. coli and Jaimie albicans. Also patient switched over to IV doxycycline May 14: Tired. Minimal sputum. Shortness of breath. Remains of high-dose of steroids. IV Zosyn. IV doxycycline. Nephrology put the patient on Lasix. May 15: Breathing better. Tolerating diet. No sputum. Remains on high-dose steroids. Remains on IV Zosyn and IV doxycycline. Up to the bathroom. Active Medications Acetaminophen (Acetaminophen Tab 325 Mg Tab) 650 mg PO Q6HR PRN PRN Reason: Mild Pain or Fever > 100.5 Albuterol/Ipratropium (Ipratropium-Albuterol 3 Ml Neb) 3 ml INHALATION RT-QID [facility] Last Admin: 05/16/23 11:36 Dose: 3 ml Albuterol/Ipratropium (Ipratropium-Albuterol 3 Ml Neb) 3 ml INHALATION RT-Q2H PRN PRN Reason: Shortness Of Breath Or Wheezing Last Admin: 05/12/23 02:44 Dose: 3 ml Allopurinol (Allopurinol 100 Mg Tab) 100 mg PO [facility] Last Admin: 05/15/23 20:48 Dose: 100 mg Alprazolam (Alprazolam 0.5 Mg Tab) 0.5 mg PO BID PRN PRN Reason: Anxiety Last Admin: 05/13/23 09:20 Dose: 0.5 mg Alprazolam (Alprazolam 0.5 Mg Tab) 0.5 mg PO [facility] Last Admin: 05/15/23 20:48 Dose: 0.5 mg Aspirin (Aspirin 81 Mg) 81 mg PO DAILY [facility] Last Admin: 05/16/23 09:20 Dose: 81 mg Budesonide (Budesonide 1 Mg/2 Ml Nebu) 1 mg INHALATION RT-BID [facility] Last Admin: 05/16/23 07:59 Dose: 1 mg Calcium Carbonate/Glycine (Calcium Carbonate 500 Mg Chewable) 1,000 mg PO Q4HR PRN PRN Reason: Dyspepsia Cholecalciferol (Cholecalciferol 25 Mcg (1000 Iu) Tablet) 75 mcg PO DAILY [facility] Last Admin: 05/16/23 09:20 Dose: 75 mcg Cyanocobalamin (Cyanocobalamin 500 Mcg Tab) 1,000 mcg PO DAILY [facility] Last Admin: 05/16/23 09:20 Dose: 1,000 mcg Darbepoetin Bobby (Darbepoetin Bobby 40 Mcg/0.4 Ml Syringe) 40 mcg SQ Q7D [facility] Last Admin: 05/15/23 13:46 Dose: 40 mcg Doxazosin Mesylate (Doxazosin 4 Mg Tab) 4 mg PO HS [facility] Last Admin: 05/15/23 21:29 Dose: 4 mg Enoxaparin Sodium (Enoxaparin 30 Mg/0.3 Ml Syringe) 30 mg SQ DAILY [facility] Last Admin: 05/16/23 09:19 Dose: 30 mg Folic Acid (Folic Acid 1 Mg Tab) 1 mg PO DAILY [facility] Last Admin: 05/16/23 09:20 Dose: 1 mg Formoterol Fumarate (Formoterol Fumarate 20 Mcg/2 Ml Nebu) 20 mcg INHALATION RT-BID [facility] Last Admin: 05/16/23 07:59 Dose: 20 mcg Furosemide (Furosemide 40 Mg Tab) 40 mg PO BID@0900,1600 [facility] Last Admin: 05/16/23 09:20 Dose: 40 mg Guaifenesin (Guaifenesin 600 Mg Tablet.Er) 600 mg PO QID [facility] Last Admin: 05/16/23 11:55 Dose: 600 mg Piperacillin Sod/Tazobactam (Sod 3.375 gm/ Sodium Chloride) 100 mls @ 25 mls/hr IVPB Q8H [facility]; Protocol Last Admin: 05/16/23 09:19 Dose: 25 mls/hr Lactobacillus Acidophilus (Lactobacillus Acidophilus/Pect 1 Each Capsule) 1 each PO DAILY [facility] Last Admin: 05/16/23 09:20 Dose: 1 each Lactulose (Lactulose 20 Gm/30 Ml Cup) 20 gm PO DAILY PRN PRN Reason: Constipation Magnesium Oxide (Magnesium Oxide 400 Mg Tab) 400 mg PO BID [facility] Last Admin: 05/16/23 09:20 Dose: 400 mg Methylprednisolone Sodium Succinate (Methylprednisolone Sod Succi 125 Mg/2 Ml Vial) 60 mg IV Q6HR [facility] Last Admin: 05/16/23 11:55 Dose: 60 mg Metoprolol Tartrate (Metoprolol Tartrate 25 Mg Tab) 25 mg PO BID [facility] Last Admin: 05/16/23 09:20 Dose: 25 mg Montelukast Sodium (Montelukast 10 Mg Tab) 10 mg PO HS [facility] Last Admin: 05/15/23 20:48 Dose: 10 mg Naloxone HCl (Naloxone 0.4 Mg/Ml 1 Ml Vial) 0.2 mg IV Q2M PRN PRN Reason: Opioid Reversal Ondansetron HCl (Ondansetron 4 Mg/2 Ml Vial) 4 mg IVP Q8HR PRN PRN Reason: Nausea And Vomiting Polyethylene Glycol (Polyethylene Glycol 3350 17 Gm Powd.Pack) 17 gm PO DAILY PRN PRN Reason: Constipation Last Admin: 05/14/23 21:38 Dose: 17 gm Sodium Bicarbonate (Sodium Bicarbonate Tab 650 Mg Tab) 650 mg PO DAILY [facility] Last Admin: 05/16/23 09:20 Dose: 650 mg Sodium Zirconium Cyclosilicate (Sodium Zirconium Cyclosilicate 10 Gm Packet) 10 gm PO DAILY [facility] Last Admin: 05/16/23 09:19 Dose: 10 gm Temazepam (Temazepam 15 Mg Cap) 15 mg PO HS PRN PRN Reason: Insomnia Physical examination: VITAL SIGNS: 98.2, 78, 17, 121/56, 96% on 3 L GENERAL: More comfortable EYES: Pupils equal. Conjunctiva wisam l. HEENT: External appearance of nose and ears normal, oral cavity grossly normal. NECK: JVD not raised; masses not palpable. HEART: First and second heart sounds are normal; some edema. LUNGS: Respiratory rate increased; diminished breath sounds, ABDOMEN: Soft, nontender, liver spleen not palpable, no masses palpable. PSYCH: Alert and oriented x3; mood and affect tired l. MUSCULOSKELETAL:No Clubbing/cyanosis;muscles-grossly intact. OA INVESTIGATIONS, reviewed in the clinical context: May 15: Creatinine 2.47 May 14: Creatinine 2.5 Sputum culture [May 11] E. coli and Jaimie May 12: BUN 35 creatinine 2.65 creatinine 5 procalcitonin 0.3 May 11: White count 4.5 hemoglobin 7.9 platelets 158 creatinine 2.38 procalcitonin 0.30 May 10: Sodium 134 potassium 5.1 BUN 36 creatinine 2.41 May 08: Potassium 4.4 creatinine 2.2 May 07: White count 4.0 hemoglobin 8.7 platelets 176 potassium 4 creatinine 2.1 May 07, 2023: White count 4.6 hemoglobin 10.9 platelets 184 potassium 4.3 BUN 49 creatinine 1.94 EKG tracing personally reviewed by me-right bundle bud block. Sinus rhythm. PVC. Previous labs: Sputum culture [May 01] Stenotrophomonas maltophilia Assessment and plan: -Pneumonia secondary to Stenotrophomonas maltophilia diagnosed on sputum culture following bronchoscopy with lavage on May [address] Cortez: Sputum culture growing E. coli from [May 11] IV Bactrim discontinued because of worsening renal function. IV doxycycline and IV Zosyn s -Acute COPD exacerbation in an ex-smoker: Improving Peroformorist/Pulmicort nebulizer twice daily. Atrovent nebulizer. IV Solu-Medrol 60 mg every 6 -Acute on chronic hypoxic respiratory failure: Slow to respond On home oxygen 2 L at night. Currently on 3 L at all times Chronic kidney disease stage III baseline creatinine level -Creatinine 1.4 -Acute kidney injury, likely ATN from Bactrim Current creatinine 2.38 Being followed by nephrology -Anemia of chronic kidney disease. Iron deficiency anemia. Has received IV iron in the past -Chronic hyperkalemia from underlying COPD Chronically on Lokelma -Reversal of colostomy and umbilical hernia repair on 11/14/2022. Wound care to continue Right upper lobe pulmonary nodule. Patient had PET scan and was treated with SBRT Obstructive sleep apnea not on CPAP Chronic hypoxic respiratory failure, from underlying COPD -on home oxygen 2 L at night -Chronic dysphagia On nectar thick liquids. Chin tuck History of DVT Essential Hypertension -Lopressor 25 mg twice a day IV Zosyn and IV doxycycline. High-dose steroids. Oxygen down to 3 L Past Medical History Past Medical History: Blood Disorder, Cancer, COPD, Deep Vein Thrombosis (DVT), GERD/Reflux, Hypertension, Pneumonia, Renal Disease Additional Past Medical History / Comment(s): currently exasperbated SOB and productive coughing,hx of pseudomonus lung infection, O2 @ 3L ATC, diverticulits, Factor V Leiden, hx of bronchial silicone stent now removed, PICC line in past now removed, past hx dialysis for kidney damage-was in the hospital for 1 month 2016-none currently, Stage 3 renal disease, Lung cancer - diagnosed and treated down in 2018, colostomy for tx of hole in colon and bladder- later reversal History of Any Multi-Drug Resistant Organisms: MRSA, Other MDRO Date of last positivie culture/infection: 04/13/23 MRSA; 12/24/22 MDRO Pseudomonas MDRO Source:: Sputum-MDRO & MRSA Past Surgical History: Hernia Repair, Tonsillectomy Additional Past Surgical History / Comment(s): bronchoscopy, bronchial silicone stent, now removed, fatty tumor removed from chest area, COLONOSCOPY, alexandre cataract, incisional hernia repair, ileostomy/colostomy reversal Past Anesthesia/Blood Transfusion Reactions: Previous Problems w/ Anesthesia Additional Past Anesthesia/Blood Transfusion Reaction / Comment(s): "as turned black and blue from ETHER". FACTOR V LEIDEN. no problems w/ prior blood transfusion Past Psychological History: Anxiety Smoking Status: Former smoker
--- NOTE | 2023-05-16 13:56 | P.PN ---
Subjective Progress Note Date: 05/16/23 Principal diagnosis: Reason for follow-up is stenotrophomonas pneumonia Patient is a 77-year-old male with a past medical history significant for COPD DVT reflux hypertension renal disease patient did have a history of recurrent Pseudomonas pneumonia recently did have a outpatient bronchoscopy done on 05/01/2023 that did grew stenotrophomonas sensitive only to Bactrim DS because of his kidney function patient has been admitted to hospital for treatment. On today's evaluation that is 05/16/2023, patient has been afebrile, patient is breathing comfortably and is currently on 4 L nasal cannula oxygen, patient cough has decreased in intensity no chest pain , patient denies nausea vomiting or diarrhea and no abdominal pain. creatinine is 2.47 no CBC was done today Objective - Vital Signs Vital signs: Vital Signs Temp 98.0 F 05/16/23 13:37 Pulse 81 05/16/23 13:37 Resp 19 05/16/23 13:37 BP 124/77 05/16/23 13:37 Pulse Ox 95 05/16/23 13:37 FiO2 Intake & Output 05/15/23 05/16/23 05/16/23 18:59 06:59 18:59 Other: Voiding Method Toilet Urinal # Voids 4 0 - Exam GENERAL DESCRIPTION: An elderly male up in bed in no distress RESPIRATORY SYSTEM: Unlabored breathing , coarse breath sounds bilaterally HEART: S1 S2 regular rate and rhythm , ABDOMEN: Soft , no tenderness EXTREMITIES: No edema feet - Labs CBC & Chem 7: 05/12/23 06:33 05/16/23 09:56 Labs: Abnormal Lab Results - Last 24 Hours (Table) 05/16/23 Range/Units 09:56 Sodium 135 L (137-145) mmol/L BUN 59 H (9-20) mg/dL Creatinine 2.47 H (0.66-1.25) mg/dL Glucose 296 H (74-99) mg/dL Calcium 8.3 L (8.4-10.2) mg/dL Assessment and Plan (1) Infection due to Stenotrophomonas maltophilia Current Visit: Yes Status: Acute Code(s): A49.8 - OTHER BACTERIAL INFECTIONS OF UNSPECIFIED SITE SNOMED Code(s): 66669660 (2) Pneumonia Current Visit: No Status: Acute Code(s): J18.9 - PNEUMONIA, UNSPECIFIED ORGANISM SNOMED Code(s): 456191463 Plan: 1patient was in the hospital with increasing shortness of breath and cough in this patient who did have end-stage COPD and bronchiectasis and history of recurrent pneumonia with recent bronchoscopy culture positive for drug-resistant Stenotrophomonas maltophilia, patient did have a history of renal insufficiency and high risk of nephrotoxicity from Bactrim DS. 2 the patient repeat sputum culture currently growing E. coli and Jaimie patient to continue with the Zosyn to his organism sensitive and will monitor clinical course closely Dictation was produced using [employer] dictation software. please excuse any grammatical, word or spelling errors. Time with Patient: Less than 30
--- NOTE | 2023-05-17 07:41 | XR ---
EXAMINATION TYPE: XR chest 1V portable DATE OF EXAM: 05/17/2023 Comparison: 05/14/2023 Clinical History: 77-year-old male follow-up Pneumonia Findings: The heart is normal size. Relative upper lung lucencies. I'm going moderate right and [id number] te left pleural effusions with a adjacent bibasilar opacities. Impression: Ongoing bibasilar opacities with moderate right and small to moderate left pleural effusions.
--- NOTE | 2023-05-17 10:44 | P.PN ---
Subjective Patient is seen in follow-up for acute kidney injury on chronic kidney disease. On oral Lasix. Receiving antibiotics. Denies chest pain or shortness of breath. No active complaints at this time. Vital signs are stable. General: No acute distress. HEENT: Head exam is unremarkable. LUNGS: No audible rhonchi or wheezes. HEART: Rate and Rhythm are regular. ABDOMEN: Nontender. EXTREMITITES: 1+ edema. Objective - Vital Signs Vital signs: Vital Signs Temp 98.1 F 05/17/23 07:11 Pulse 78 05/17/23 09:16 Resp 16 05/17/23 08:05 BP 127/57 05/17/23 07:11 Pulse Ox 95 05/17/23 07:11 FiO2 Intake & Output 05/16/23 05/17/23 05/17/23 17:59 06:59 18:59 Output Total Balance Output: Urine Other: Voiding Method Toilet Urinal # Voids # Bowel Movements - Labs CBC & Chem 7: 05/12/23 06:33 05/16/23 09:56 Labs: Abnormal Lab Results - Last 24 Hours (Table) 05/16/23 Range/Units 09:56 Sodium 135 L (137-145) mmol/L BUN 59 H (9-20) mg/dL Creatinine 2.47 H (0.66-1.25) mg/dL Glucose 296 H (74-99) mg/dL Calcium 8.3 L (8.4-10.2) mg/dL Assessment and Plan Plan: Assessment: 1. Acute kidney injury secondary to ATN secondary to infection and also from Bactrim which will impair creatinine secretion. Off Bactrim. Now on Lasix. Creatinine 2.47 yesterday. CAT scan from December 2022 showed no evidence of hydronephrosis. 2. Chronic kidney disease stage IIIb with baseline creatinine 1.6-1.9 secondary to nonrecovered ATN and multiple episodes of acute kidney injury. 3. Chronic hyperkalemia maintained on [facility] outpatient. Stable. 4. Recurrent episodes of pneumonia. Last culture from May 01, 2023 positive for stenotrophomonas maltophilia. Being followed by infectious disease and pulmonology. 5. Acute on chronic diastolic CHF and moderate tricuspid regurgitation. 6. Anemia of chronic kidney disease. On Aranesp. Plan: Maintain Lasix. Avoid nephrotoxins. Continue to monitor renal function and urine output.
[2023-05-17] MEDS: PSYLLIUM HUSK 100% 6 GM PACKET PO SCH (12:12)
--- NOTE | 2023-05-17 12:52 | P.PN ---
Subjective Progress Note Date: 05/17/23 This patient is 77 with known history of advanced COPD and severe tracheobronchomalacia in addition to her previous history of a lung mass that was treated by SBRT and previous history of renal cell mass she is by cryotherapy who has had several and recurrent respiratory tract infection with various gram-negative microorganisms including Pseudomonas aeruginosa and gram- positive organisms including MRSA. Looking at the various sputum samples that the patient has had, the patient had MRSA infection back in 02/17/2023 and subsequently on 04/13/2023 and the patient was treated on outpatient basis with Z yvox. As far as gram-negative infections, the patient had a combination of E. coli and stenotrophomonas on 03/10/2023. He continues to be symptomatic and the patient underwent a bronchoscopy endobronchial lavage on 05/01/2023 and there was recurrent infection with stenotrophomonas and this was resistant to Levaquin and Fortaz. It was sensitive to Bactrim. However, there was concern about patient by treatment with Bactrim as the patient is known to have chronic kidney disease, stage III. Based on that, the patient was asked to come into the hospital to be hospitalized for inpatient treatment. ID consultation will be obtained in regards to further advice for antibiotic management. The patient is currently on oxygen and he is on 3 L with a pulse ox of 98% he is afebrile. He has a congested cough and ongoing sputum production. No altered mentation. Appetite is good. No other specific complaints otherwise for now. In terms of his COPD, he has been maintained on Trelegy Ellipta on outpatient basis. His oxygen dependent over this past 6 months at least and the patient is having to use albuterol nebulized treatments [id number] as needed. He also uses inhaled tobramycin on outpatient basis regarding recurrent gram-negative and pseudomonal infections. This is being utilized every other month.the patient's most recent CAT scan of the chest abdomen and pelvis showed small bilateral pleural effusions and right lower lobe pulmonary nodule that has remained stable and the patient also has an ascending aortic aneurysm measuring 4.5 cm. This was done on 12/23/2022. The most recent echocardiogram that was done on 12/21/2022 showed a normal LV, elevated RVSP, moderate tricuspid regurgitation. On today's evaluation of 05/08/2023, the patient remains on IV Bactrim. The renal function is being monitored very closely. Blood work from today shows a Of 41 with a creatinine of 2.1. Sodium is at 140 with a potassium level of 4. The white cell count is 4 with a hemoglobin of 8.7. He remains on oxygen 3 L/min nasal cannula. He desaturates on room air oxygen. He is afebrile. He has a congested cough. A chest x-ray was also done today and it showed lower lobe pulmonary infiltrates/atelectasis which are essentially chronic and the patient has a right upper lobe nodular density that was noted before. He is resting comfortably in bed. No other new complaints otherwise for now On today's evaluation of 05/09/2023, the patient is being seen for a follow-up. Creatinine is at 2.2 with a BUN of 30. The patient is receiving IV Bactrim. Still symptomatic. Still having cough and congestion and producing limited amount of mucus. Chest x-ray from yesterday showed lower lobe bilaterally pulmonary infiltrates and the patient's procalcitonin level is at 0.24. Remains on oxygen and he is still on 3 L O2 nasal cannula. No interval worsening shortness of breath. Nevertheless, no significant improvement. On 05/10/2023, the patient denies having any major improvement in his overall respiratory status. Remains on IV Bactrim. Creatinine is at 2.2. No new comp laints otherwise for now. Remains on 3 L of oxygen by nasal cannula. No pleurisy or hemoptysis or chest pain. Afebrile. ID is on the case. Feels weak and lethargic and no altered mentation. No other new complaints otherwise for now. The patient is seen today May 11, 2023 for follow-up on the regular medical floor. He is resting in bed. Awake and alert in no acute distress. Continues with a loose productive cough. Maintaining O2 saturations in the upper 90s on 4 L/min per nasal cannula. Sodium 134. Potassium 5.1. Bicarb 27. BUN 36. Creatinine 2.41. Most recent bronchoscopy lavage cultures on 05/01/2023 were positive for stenotrophomonas maltophilia. He is currently on Bactrim and Zosyn. Infectious diseases following. He remains on DuoNeb ventilations, Pulmicort and Perforomist inhalations, Solu-Medrol. Lovenox for DVT prophylaxis. The patient is seen today May 12, 2023 in follow-up on the regular medical floor. He is currently sitting up at the bedside. Awake and alert in no acute distress. He has ongoing issues with shortness of breath mostly on exertion. S till with lots of cough and congestion. He is maintaining O2 saturations up to 100% on 5 L high flow nasal cannula. He is afebrile. Hemodynamically stable. White count 4.5. Hemoglobin 7.9. Platelets 158. BUN 2.38. C-reactive protein 4.4. Procalcitonin 0.30. He remains on DuoNeb inhalations, Pulmicort and Perforomist inhalation, Singulair, Mucinex and Solu-Medrol. Lovenox for DVT prophylaxis. He remains on antibiotics in the form of Zosyn and Bactrim Patient is seen today May 13, 2023 in follow-up on the regular medical floor. He is awake and alert in no acute distress. Sitting up at the bedside. He is breathing a bit easier today compared to yesterday. Less wheezing. He has been slow to progress. Sputum culture positive for gram-negative bacilli. He remains on Bactrim and Zosyn. Continued on bronchodilators and steroids. Maintaining O2 saturations in the high 90s on 5 L nasal cannula. Afebrile. Hemodynamically stable. The patient is seen today May 14, 2023 in follow-up on the regular medical floor. He is up ambulating in his room. Awake and alert in no acute distress. Feeling a bit better today compared to yesterday. Still requiring 4 L of oxygen to maintain O2 saturations in the 90s. Follow-up chest x-ray continues to show chronic bilateral pleural effusions with scattered mid and lower lung zone infiltrates with bands of atelectasis. No significant change. Sputum culture positive for E. coli. Creatinine 2.48. GFR 24. His Bactrim was discontinued. He is currently on doxycycline and Zosyn. Remains on bronchodilators and steroids. Lovenox for DVT prophylaxis. The patient is seen today May 15, 2023 in follow-up on the regular medical floor. He is awake and alert in no acute distress. Continues to improve daily. He has been slow to progress. Continues to maintain good O2 saturations in the 90s on 3 L/min per nasal cannula. Sputum culture was positive for E. coli and Jaimie. Creatinine 2.50. He is on Lasix 40 mg twice daily per nephrology. Continued on bronchodilators, steroids, Singulair. Remains on antibiotics in t he form of Zosyn and doxycycline. Lovenox for DVT prophylaxis. The patient is seen today May 16, 2023 in follow-up on the regular medical floor. He is currently sitting up at the bedside. Awake and alert in no acute distress. Continues to feel better each day. No worsening shortness of breath, cough or congestion. Continues to maintain good O2 saturations in the mid 90s on 3 L/min per nasal cannula. Afebrile. Hemodynamically stable. Sputum cultures positive for E. coli and Jaimie. Sodium 135. Potassium 3.9. Bicarb 26. BUN 59. Creatinine 2.47. Glucose 296. Continued on bronchodilators, steroids, Singulair. Remains on antibiotics in the form of Zosyn and doxycycline. Lovenox for DVT prophylaxis. The patient is seen today May 17, 2023 in follow-up on the regular medical floor. He remains awake and alert in no acute distress. Continues to maintain O2 saturations in the 90s on 2 L/min per nasal cannula. Has been afebrile. Hemodynamically stable. Chest x-ray continues to show ongoing bibasilar opacities with moderate right and small left pleural effusions. This appears chronic in nature and unchanged. Sputum culture was positive for E. coli and Jaimie. He remains on Zosyn. Continued on bronchodilators and steroids. Continued on oral diuretics. Objective - Vital Signs Vital signs: Vital Signs Temp 98.1 F 05/17/23 07:11 Pulse 78 05/17/23 12:07 Resp 16 05/17/23 08:05 BP 127/57 05/17/23 07:11 Pulse Ox 95 05/17/23 07:11 FiO2 Intake & Output 05/16/23 05/17/23 05/17/23 17:59 06:59 18:59 Output Total Balance Output: Urine Other: Voiding Method Toilet Urinal # Voids # Bowel Movements - Exam GENERAL EXAM: Alert, pleasant 77-year-old male, on 2 L nasal cannula, in no apparent distress. HEAD: Normocephalic. EYES: Normal reaction of pupils, equal size. NOSE: Clear with pink turbinates. THROAT: No erythema or exudates. NECK: No masses, no JVD. CHEST: No chest wall deformity. LUNGS: Equal air entry with faint crackles in the bilateral bases scattered rhonchi. Diminished. CVS: S1 and S2 normal with no audible murmur, regular rhythm. ABDOMEN: Dressing/binder in place. No hepatosplenomegaly, normal bowel sounds, no guarding or rigidity. SPINE: No scoliosis or deformity SKIN: No rashes CENTRAL NERVOUS SYSTEM: No focal deficits, tone is normal in all 4 extremities. EXTREMITIES: There is no peripheral edema. No clubbing, no cyanosis. Peripheral pulses are intact. - Labs CBC & Chem 7: 05/12/23 06:33 05/16/23 09:56 Assessment and Plan Assessment: Acute COPD exacerbation with ongoing respiratory difficulties and cough and hypoxemic respiratory failure. The patient has recurrent respiratory tract infection with gram-negative bacteria including Pseudomonas/stenotrophomonas and E. coli and gram-positive bacteria including MRSA. The patient was recently treated with Zyvox for his MRSA infection. 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 The patient is symptomatic with excessive respiratory secretions and mucus production and ongoing shortness of breath. Sputum sample reveals E. coli. Follow-up chest x-ray showing similar findings with bilateral lower lobe pulmonary infiltrate/atelectasis. He remains on Zosyn. Remains on diuretics Severe COPD with chronic hypoxic respiratory failure maintained [facility]urrent [facility] tract infection with Pseudomonas aeruginosa/stenotrophomonas and the patient has been maintained on inhaled tobramycin on outpatient basis every other month Previous history of MRSA lung infection treated with Zyvox Chronic stage III kidney disease Severe tracheobronchomalacia Previous multiple bronchoscopies Previous history of a lung mass treated with SBRT and subsequent PET/CT showed no significant metabolic activity History of renal mass treated by cryotherapy Previous history of DVT and pulmonary embolism maintained on anticoagulation and the patient has factor V Leyden Hypertension Obstructive sleep apnea Diverticulosis with previous history of diverticulitis and the patient has undergone previous colectomy and colostomy for colonic perforation Chronic anemia of chronic disease Plan: The patient was seen and evaluated Chest x-ray, labs and medications reviewed Continue the current treatment plan Probable discharge in the a.m. We will continue to follow I have personally seen and examined the patient, performed the documentation and the assessment and plan as written. Number of minutes spent on the visit: 10.
--- NOTE | 2023-05-17 14:49 | P.PN ---
Subjective Progress Note Date: 05/17/23 Principal diagnosis: Reason for follow-up is stenotrophomonas pneumonia Patient is a 77-year-old male with a past medical history significant for COPD DVT reflux hypertension renal disease patient did have a history of recurrent Pseudomonas pneumonia recently did have a outpatient bronchoscopy done on 05/01/2023 that did grew stenotrophomonas sensitive only to Bactrim DS because of his kidney function patient has been admitted to hospital for treatment. On today's evaluation that is 05/17/2023,the patient denies any fever or any chills, patient is breathing comfortably on 3 L nasal cannula oxygen the patient denies chest pain shortness of breath and cough is decreased in intensity and less productive, patient denies abdominal pain, no nausea vomiting or diarrhea. Patient creatinine 2.47, sputum with E. coli sensitive to ceftriaxone resistant to quinolones Objective - Vital Signs Vital signs: Vital Signs Temp 97.4 F L 05/17/23 13:54 Pulse 72 05/17/23 13:54 Resp 17 05/17/23 13:54 BP 145/71 05/17/23 13:54 Pulse Ox 99 05/17/23 13:54 FiO2 Intake & Output 05/16/23 05/17/23 05/17/23 17:59 06:59 18:59 Output Total Balance Output: Urine Other: Voiding Method Toilet Urinal # Voids # Bowel Movements - Exam GENERAL DESCRIPTION: An elderly male up in bed in no distress RESPIRATORY SYSTEM: Unlabored breathing , coarse breath sounds bilaterally HEART: S1 S2 regular rate and rhythm , ABDOMEN: Soft , no tenderness EXTREMITIES: No edema feet - Labs CBC & Chem 7: 05/12/23 06:33 05/16/23 09:56 Assessment and Plan (1) Infection due to Stenotrophomonas maltophilia Current Visit: Yes Status: Acute Code(s): A49.8 - OTHER BACTERIAL INFECTIONS OF UNSPECIFIED SITE SNOMED Code(s): 78602774 (2) Pneumonia Current Visit: No Status: Acute Code(s): J18.9 - PNEUMONIA, UNSPECIFIED ORGANISM SNOMED Code(s): 692889690 Plan: 1patient was in the hospital with increasing shortness of breath and cough in this patient who did have end-stage COPD and bronchiectasis and history of recurrent pneumonia with recent bronchoscopy culture positive for drug-resistant Stenotrophomonas maltophilia, patient did have a history of renal insufficiency and high risk of nephrotoxicity from Bactrim DS. 2 the patient repeat sputum culture currently growing E. coli and Jaimie patient has shown clinical improvement is currently on Zosyn will be able to finish therapy with a 7-day course of Ceftin on discharge discussed with admitting physician Dictation was produced using [employer] dictation software. please excuse any grammatical, word or spelling errors. Time with Patient: Less than 30
--- NOTE | 2023-05-17 15:45 | P.PN ---
Progress Note - Text Progress Note Date: 05/17/23 Chief Complaint: Cough Patient is a 77-year-old male with a past medical history of COPD on home oxygen 2 L as needed, , history of bronchial stent placement/removal, CKD stage III, history of lung cancer, history of DVT, hypertension anxiety and prior history of smoking presents underwent extensive lysis of adhesions, small bowel resection and repair of incisional hernia on 02/09/2022.reversal of ostomy and repair of incisional hernia done on November 14, 2022.-. Patient send repeated pneumonias. Also had bronchoscopy with lavages Patient has been having respiratory infection outpatient. Was given 10-day course of Zyvox. Then had a break. Underwent bronchoscopy with lavage on May 01, [address] Cortez. Cultures have come back showing Stenotrophomonas maltophilia. Based on the cultures patient be admitted for IV antibiotics. Started on IV Bactrim. ID consulted Patient is coughing of sputum. Appetite is fair. Short of breath. Some wheezing. Normally uses 2 L of oxygen at home as needed currently using 3 L at all times. May 07: Patient remains on IV Bactrim being followed by ID. Waiting on sensitivity. To minocycline. Cough. Some sputum production. Tolerating diet. May 2: Some cough. Little sputum. Creatinine 2.2. ID is waiting for sensitivity on minocycline. Remains on IV Bactrim. Eating well. Getting IV fluids being followed by nephrology. May 3: Not much change clinically. Continues on continue IV Bactrim. Pending further input from ID depending upon sensitivity. Tolerating diet. Discussed with Dr. Cortez. Possible bronchial lavage by Dr. Howard. Tomorrow May 10: Remains on IV Bactrim. Creatinine up to 2.41. Being followed by nephrology and ID. At this point no plan for lavage per pulmonary. May 11: Dose of Bactrim adjusted by pharmacy per ID. Short of breath. Congested cough. No plans for lavage per pulmonary. Other medications to continue. May 12: Remains on IV Bactrim. No sputum production. Breathing a bit better. Was increased on IV Solu-Medrol to 60 mg every 6 hours. By pulmonary some decrease in appetite.. May 13: No sputum production. Breathing slightly better. Remains on high-dose Solu-Medrol. Has been switched on to IV Zosyn. IV Bactrim resolved. Sputum cultures growing E. coli and Jaimie albicans. Also patient switched over to IV doxycycline May 14: Tired. Minimal sputum. Shortness of breath. Remains of high-dose of steroids. IV Zosyn. IV doxycycline. Nephrology put the patient on Lasix. May 15: Breathing better. Tolerating diet. No sputum. Remains on high-dose steroids. Remains on IV Zosyn and IV doxycycline. Up to the bathroom. May 16: Breathing better. Ambulating in the room. Continue current dose of Solu-Medrol per pulmonary. They are hoping for discharge tomorrow. Discussed with patient. Active Medications Acetaminophen (Acetaminophen Tab 325 Mg Tab) 650 mg PO Q6HR PRN PRN Reason: Mild Pain or Fever > 100.5 Albuterol/Ipratropium (Ipratropium-Albuterol 3 Ml Neb) 3 ml INHALATION RT-QID [facility] Last Admin: 05/17/23 11:54 Dose: 3 ml Albuterol/Ipratropium (Ipratropium-Albuterol 3 Ml Neb) 3 ml INHALATION RT-Q2H PRN PRN Reason: Shortness Of Breath Or Wheezing Last Admin: 05/12/23 02:44 Dose: 3 ml Allopurinol (Allopurinol 100 Mg Tab) 100 mg PO [facility] Last Admin: 05/16/23 19:46 Dose: 100 mg Alprazolam (Alprazolam 0.5 Mg Tab) 0.5 mg PO BID PRN PRN Reason: Anxiety Last Admin: 05/13/23 09:20 Dose: 0.5 mg Alprazolam (Alprazolam 0.5 Mg Tab) 0.5 mg PO [facility] Last Admin: 05/16/23 19:46 Dose: 0.5 mg Aspirin (Aspirin 81 Mg) 81 mg PO DAILY [facility] Last Admin: 05/17/23 08:08 Dose: 81 mg Budesonide (Budesonide 1 Mg/2 Ml Nebu) 1 mg INHALATION RT-BID [facility] Last Admin: 05/17/23 08:54 Dose: 1 mg Calcium Carbonate/Glycine (Calcium Carbonate 500 Mg Chewable) 1,000 mg PO Q4HR PRN PRN Reason: Dyspepsia Cholecalciferol (Cholecalciferol 25 Mcg (1000 Iu) Tablet) 75 mcg PO DAILY [facility] Last Admin: 05/17/23 08:08 Dose: 75 mcg Cyanocobalamin (Cyanocobalamin 500 Mcg Tab) 1,000 mcg PO DAILY [facility] Last Admin: 05/17/23 08:08 Dose: 1,000 mcg Darbepoetin Bobby (Darbepoetin Bobby 40 Mcg/0.4 Ml Syringe) 40 mcg SQ Q7D [facility] Last Admin: 05/15/23 13:46 Dose: 40 mcg Doxazosin Mesylate (Doxazosin 4 Mg Tab) 4 mg PO HS [facility] Last Admin: 05/16/23 23:00 Dose: 4 mg Enoxaparin Sodium (Enoxaparin 30 Mg/0.3 Ml Syringe) 30 mg SQ DAILY [facility] Last Admin: 05/17/23 08:08 Dose: 30 mg Folic Acid (Folic Acid 1 Mg Tab) 1 mg PO DAILY [facility] Last Admin: 05/17/23 08:08 Dose: 1 mg Formoterol Fumarate (Formoterol Fumarate 20 Mcg/2 Ml Nebu) 20 mcg INHALATION RT-BID [facility] Last Admin: 05/17/23 08:54 Dose: 20 mcg Furosemide (Furosemide 40 Mg Tab) 40 mg PO BID@0900,1600 [facility] Last Admin: 05/17/23 08:08 Dose: 40 mg Guaifenesin (Guaifenesin 600 Mg Tablet.Er) 600 mg PO QID [facility] Last Admin: 05/17/23 12:01 Dose: 600 mg Piperacillin Sod/Tazobactam (Sod 3.375 gm/ Sodium Chloride) 100 mls @ 25 mls/hr IVPB Q8H [facility]; Protocol Last Admin: 05/17/23 08:08 Dose: 25 mls/hr Lactobacillus Acidophilus (Lactobacillus Acidophilus/Pect 1 Each Capsule) 1 each PO DAILY [facility] Last Admin: 05/17/23 08:08 Dose: 1 each Lactulose (Lactulose 20 Gm/30 Ml Cup) 20 gm PO DAILY PRN PRN Reason: Constipation Magnesium Oxide (Magnesium Oxide 400 Mg Tab) 400 mg PO BID [facility] Last Admin: 05/17/23 08:08 Dose: 400 mg Methylprednisolone Sodium Succinate (Methylprednisolone Sod Succi 125 Mg/2 Ml Vial) 60 mg IV Q6HR [facility] Last Admin: 05/17/23 12:00 Dose: 60 mg Metoprolol Tartrate (Metoprolol Tartrate 25 Mg Tab) 25 mg PO BID [facility] Last Admin: 05/17/23 08:08 Dose: 25 mg Montelukast Sodium (Montelukast 10 Mg Tab) 10 mg PO HS [facility] Last Admin: 05/16/23 19:46 Dose: 10 mg Naloxone HCl (Naloxone 0.4 Mg/Ml 1 Ml Vial) 0.2 mg IV Q2M PRN PRN Reason: Opioid Reversal Ondansetron HCl (Ondansetron 4 Mg/2 Ml Vial) 4 mg IVP Q8HR PRN PRN Reason: Nausea And Vomiting Polyethylene Glycol (Polyethylene Glycol 3350 17 Gm Powd.Pack) 17 gm PO DAILY PRN PRN Reason: Constipation Last Admin: 05/14/23 21:38 Dose: 17 gm Psyllium Hydrophilic Mucilloid (Psyllium Husk 100% 6 Gm Packet) 6 gm PO DAILY [facility] Last Admin: 05/17/23 12:12 Dose: 6 gm Sodium Bicarbonate (Sodium Bicarbonate Tab 650 Mg Tab) 650 mg PO DAILY [facility] Last Admin: 05/17/23 08:08 Dose: 650 mg Sodium Zirconium Cyclosilicate (Sodium Zirconium Cyclosilicate 10 Gm Packet) 10 gm PO DAILY [facility] Last Admin: 05/17/23 08:07 Dose: 10 gm Temazepam (Temazepam 15 Mg Cap) 15 mg PO HS PRN PRN Reason: Insomnia Physical examination: VITAL SIGNS: 97.4, 72, 17, 145 x 71, 99% on 3 L GENERAL: Sitting up, comfortable EYES: Pupils equal. Conjunctiva wisam l. HEENT: External appearance of nose and ears normal, oral cavity grossly normal. NECK: JVD not raised; masses not palpable. HEART: First and second heart sounds are normal; some edema. LUNGS: Respiratory rate normal, improved air entry ABDOMEN: Soft, nontender, liver spleen not palpable, no masses palpable. PSYCH: Alert and oriented x3; mood and affect tired l. MUSCULOSKELETAL:No Clubbing/cyanosis;muscles-grossly intact. OA INVESTIGATIONS, reviewed in the clinical context: May 15: Creatinine 2.47 May 14: Creatinine 2.5 Sputum culture [May 11] E. coli and Jaimie May 12: BUN 35 creatinine 2.65 creatinine 5 procalcitonin 0.3 May 11: White count 4.5 hemoglobin 7.9 platelets 158 creatinine 2.38 procalcitonin 0.30 May 10: Sodium 134 potassium 5.1 BUN 36 creatinine 2.41 March 2: Potassium 4.4 creatinine 2.2 May 07: White count 4.0 hemoglobin 8.7 platelets 176 potassium 4 creatinine 2.1 May 07, 2023: White count 4.6 hemoglobin 10.9 platelets 184 potassium 4.3 BUN 49 creatinine 1.94 EKG tracing personally reviewed by me-right bundle bud block. Sinus rhythm. PVC. Previous labs: Sputum culture [May 01] Stenotrophomonas maltophilia Assessment and plan: -Pneumonia secondary to Stenotrophomonas maltophilia diagnosed on sputum culture following bronchoscopy with lavage on May [address] Cortez: Sputum culture growing E. coli from [May 11]: Improving IV Bactrim discontinued because of worsening renal function. IV doxycycline and IV Zosyn s -Acute COPD exacerbation in an ex-smoker: Improving Peroformorist/Pulmicort nebulizer twice daily. Atrovent nebulizer. IV Solu-Medrol 60 mg every 6 -Acute on chronic hypoxic respiratory failure: Slow to respond On home oxygen 2 L at night. Currently on 3 L at all times Chronic kidney disease stage III baseline creatinine level -Creatinine 1.4 -Acute kidney injury, likely ATN from Bactrim Current creatinine 2.38 Being followed by nephrology -Anemia of chronic kidney disease. Iron deficiency anemia. Has received IV iron in the past -Chronic hyperkalemia from underlying COPD Chronically on Lokelma -Reversal of colostomy and umbilical hernia repair on 11/14/2022. Wound care to continue Right upper lobe pulmonary nodule. Patient had PET scan and was treated with SBRT Obstructive sleep apnea not on CPAP Chronic hypoxic respiratory failure, from underlying COPD -on home oxygen 2 L at night -Chronic dysphagia On nectar thick liquids. Chin tuck History of DVT Essential Hypertension -Lopressor 25 mg twice a day IV Zosyn and IV doxycycline. High-dose steroids. Hoping for discharge tomorrow. Discussed with patient. Past Medical History Past Medical History: Blood Disorder, Cancer, COPD, Deep Vein Thrombosis (DVT), GERD/Reflux, Hypertension, Pneumonia, Renal Disease Additional Past Medical History / Comment(s): currently exasperbated SOB and productive coughing,hx of pseudomonus lung infection, O2 @ 3L ATC, diverticulits, Factor V Leiden, hx of bronchial silicone stent now removed, PICC line in past now removed, past hx dialysis for kidney damage-was in the hospital for 1 month 2016-none currently, Stage 3 renal disease, Lung cancer - diagnosed and treated down in [place] 2019, colostomy for tx of hole in colon and bladder- later reversal History of Any Multi-Drug Resistant Organisms: MRSA, Other MDRO Date of last positivie culture/infection: 04/13/23 MRSA; 12/24/22 MDRO Pseudomonas MDRO Source:: Sputum-MDRO & MRSA Past Surgical History: Hernia Repair, Tonsillectomy Additional Past Surgical History / Comment(s): bronchoscopy, bronchial silicone stent, now removed, fatty tumor removed from chest area, COLONOSCOPY, alexandre cataract, incisional hernia repair, ileostomy/colostomy reversal Past Anesthesia/Blood Transfusion Reactions: Previous Problems w/ Anesthesia Additional Past Anesthesia/Blood Transfusion Reaction / Comment(s): "as infant turned black and blue from ETHER". FACTOR V LEIDEN. no problems w/ prior blood transfusion Past Psychological History: Anxiety Smoking Status: Former smoker
[2023-05-18 07:38] VITALS: BP 150/75; RESP 20; TEMP 97.7
[2023-05-18 11:19] LABS: BUN/Creat Ratio 33.95 Ratio (12.00-20.00); Blood Urea Nitrogen 71.3 mg/dL (9.0-27.0); Calcium 7.8 mg/dL (8.7-10.3); Carbon Dioxide 28.8 mmol/L (21.6-31.8); Chloride 102 mmol/L (96-109); Glucose 189 mg/dL (70-110); Magnesium 2.1 mg/dL (1.5-2.4); Potassium 3.8 mmol/L (3.5-5.5); Sodium 144 mmol/L (135-145)
[2023-05-18 11:46] VITALS: PULSE 84
--- NOTE | 2023-05-18 12:02 | P.PN ---
Subjective Patient is seen in follow-up for acute kidney injury on chronic kidney disease. On oral Lasix. Receiving antibiotics. Denies chest pain or shortness of breath. No active complaints at this time. Renal function better. Vital signs are stable. General: No acute distress. HEENT: Head exam is unremarkable. LUNGS: No audible rhonchi or wheezes. HEART: Rate and Rhythm are regular. ABDOMEN: Nontender. EXTREMITITES: 1+ edema. Objective - Vital Signs Vital signs: Vital Signs Temp 97.7 F 05/18/23 07:10 Pulse 84 05/18/23 11:44 Resp 20 05/18/23 08:10 BP 150/75 05/18/23 07:10 Pulse Ox 92 L 05/18/23 07:10 FiO2 Intake & Output 05/17/23 05/18/23 05/18/23 18:59 06:59 18:59 Other: Voiding Method Toilet Toilet Urinal Urinal # Voids 6 3 # Bowel Movements 1 - Labs CBC & Chem 7: 05/12/23 06:33 05/18/23 06:27 Labs: Abnormal Lab Results - Last 24 Hours (Table) 05/18/23 Range/Units 06:27 Anion Gap 13.20 H (4.00-12.00) mmol/L BUN 71.3 H (9.0-27.0) mg/dL Creatinine 2.1 H (0.6-1.5) mg/dL Est GFR (CKD-EPI) 31 L (>=60) BUN/Creatinine Ratio 33.95 H (12.00-20.00) Ratio Glucose 189 H (70-110) mg/dL Calcium 7.8 L (8.7-10.3) mg/dL Assessment and Plan Plan: Assessment: 1. Acute kidney injury secondary to ATN secondary to infection and also from Bactrim which will impair creatinine secretion. Off Bactrim. Now on Lasix. Renal function better. Creatinine 2.1 today. CAT scan from December 2022 showed no evidence of hydronephrosis. 2. Chronic kidney disease stage IIIb with baseline creatinine 1.6-1.9 secondary to nonrecovered ATN and multiple episodes of acute kidney injury. 3. Chronic hyperkalemia maintained on [facility] outpatient. Stable. 4. Recurrent episodes of pneumonia. Last culture from May 01, 2023 positive for stenotrophomonas maltophilia. Being followed by infectious disease and pulmonology. 5. Acute on chronic diastolic CHF and moderate tricuspid regurgitation. 6. Anemia of chronic kidney disease. On Aranesp. 7. Volume overload. Plan: Maintain Lasix. Avoid nephrotoxins. Continue to monitor renal function and urine output. Advised patient to monitor his weight closely at home and to notify physicians of developing worsening edema or gains more than 3 pounds in 1 week duration. Patient advised to maintain low-salt diet and fluid restriction of less than 50 ounces per day. Repeat BMP and magnesium level 2 to 3 days postdischarge. Follow-up outpatient in 1 week. Case discussed with primary team.
--- NOTE | 2023-05-18 12:18 | P.PN ---
Subjective Progress Note Date: 05/18/23 Principal diagnosis: Reason for follow-up is stenotrophomonas pneumonia Patient is a 77-year-old male with a past medical history significant for COPD DVT reflux hypertension renal disease patient did have a history of recurrent Pseudomonas pneumonia recently did have a outpatient bronchoscopy done on 05/01/2023 that did grew stenotrophomonas sensitive only to Bactrim DS because of his kidney function patient has been admitted to hospital for treatment. On today's evaluation that is 05/18/2023,the patient remains to be afebrile, patient is on 2 L nasal cannula supplemental oxygen and denies any chest pain cough is decreased intensity less productive.Patient denies having any nausea or vomiting, no abdominal pain and no diarrhea has been reported. Patient creatinine is down to 2.1 Objective - Vital Signs Vital signs: Vital Signs Temp 97.7 F 05/18/23 07:10 Pulse 84 05/18/23 11:44 Resp 20 05/18/23 08:10 BP 150/75 05/18/23 07:10 Pulse Ox 92 L 05/18/23 07:10 FiO2 Intake & Output 05/17/23 05/18/23 05/18/23 18:59 06:59 18:59 Other: Voiding Method Toilet Toilet Urinal Urinal # Voids 6 3 # Bowel Movements 1 - Exam GENERAL DESCRIPTION: An elderly male up in bed in no distress RESPIRATORY SYSTEM: Unlabored breathing , coarse breath sounds bilaterally HEART: S1 S2 regular rate and rhythm , ABDOMEN: Soft , no tenderness EXTREMITIES: No edema feet - Labs CBC & Chem 7: 05/12/23 06:33 05/18/23 06:27 Labs: Abnormal Lab Results - Last 24 Hours (Table) 05/18/23 Range/Units 06:27 Anion Gap 13.20 H (4.00-12.00) mmol/L BUN 71.3 H (9.0-27.0) mg/dL Creatinine 2.1 H (0.6-1.5) mg/dL Est GFR (CKD-EPI) 31 L (>=60) BUN/Creatinine Ratio 33.95 H (12.00-20.00) Ratio Glucose 189 H (70-110) mg/dL Calcium 7.8 L (8.7-10.3) mg/dL Assessment and Plan (1) Infection due to Stenotrophomonas maltophilia Current Visit: Yes Status: Acute Code(s): A49.8 - OTHER BACTERIAL INFECTIONS OF UNSPECIFIED SITE SNOMED Code(s): 98867772 (2) Pneumonia Current Visit: No Status: Acute Code(s): J18.9 - PNEUMONIA, UNSPECIFIED ORGANISM SNOMED Code(s): 992057459 Plan: 1patient was in the hospital with increasing shortness of breath and cough in this patient who did have end-stage COPD and bronchiectasis and history of recurrent pneumonia with recent bronchoscopy culture positive for drug-resistant Stenotrophomonas maltophilia, patient did have a history of renal insufficiency and high risk of nephrotoxicity from Bactrim DS. 2 the patient repeat sputum culture currently growing E. coli and Jaimie 3-patient has shown clinical improvement on Zosyn there is a documented allergy on the chart of cefepime reaction being kidney shutdown clinically doubt true cephalosporin allergy and Ceftin will be safe on discharge we will give a dose of Omnicef here before discharge in the hospital Dictation was produced using [employer] dictation software. please excuse any grammatical, word or spelling errors. Time with Patient: Less than 30
[2023-05-18] MEDS: CEFDINIR 300 MG CAP PO STA (12:42)
--- NOTE | 2023-05-18 13:58 | P.PN ---
Subjective Progress Note Date: 05/18/23 This patient is 77 with known history of advanced COPD and severe tracheobronchomalacia in addition to her previous history of a lung mass that was treated by SBRT and previous history of renal cell mass she is by cryotherapy who has had several and recurrent respiratory tract infection with various gram-negative microorganisms including Pseudomonas aeruginosa and gram- positive organisms including MRSA. Looking at the various sputum samples that the patient has had, the patient had MRSA infection back in 02/17/2023 and subsequently on 04/13/2023 and the patient was treated on outpatient basis with Z yvox. As far as gram-negative infections, the patient had a combination of E. coli and stenotrophomonas on 03/10/2023. He continues to be symptomatic and the patient underwent a bronchoscopy endobronchial lavage on 05/01/2023 and there was recurrent infection with stenotrophomonas and this was resistant to Levaquin and Fortaz. It was sensitive to Bactrim. However, there was concern about patient by treatment with Bactrim as the patient is known to have chronic kidney disease, stage III. Based on that, the patient was asked to come into the hospital to be hospitalized for inpatient treatment. ID consultation will be obtained in regards to further advice for antibiotic management. The patient is currently on oxygen and he is on 3 L with a pulse ox of 98% he is afebrile. He has a congested cough and ongoing sputum production. No altered mentation. Appetite is good. No other specific complaints otherwise for now. In terms of his COPD, he has been maintained on Trelegy Ellipta on outpatient basis. His oxygen dependent over this past 6 months at least and the patient is having to use albuterol nebulized treatments [id number] as needed. He also uses inhaled tobramycin on outpatient basis regarding recurrent gram-negative and pseudomonal infections. This is being utilized every other month.the patient's most recent CAT scan of the chest abdomen and pelvis showed small bilateral pleural effusions and right lower lobe pulmonary nodule that has remained stable and the patient also has an ascending aortic aneurysm measuring 4.5 cm. This was done on 12/23/2022. The most recent echocardiogram that was done on 12/21/2022 showed a normal LV, elevated RVSP, moderate tricuspid regurgitation. On today's evaluation of 05/08/2023, the patient remains on IV Bactrim. The renal function is being monitored very closely. Blood work from today shows a Of 41 with a creatinine of 2.1. Sodium is at 140 with a potassium level of 4. The white cell count is 4 with a hemoglobin of 8.7. He remains on oxygen 3 L/min nasal cannula. He desaturates on room air oxygen. He is afebrile. He has a congested cough. A chest x-ray was also done today and it showed lower lobe pulmonary infiltrates/atelectasis which are essentially chronic and the patient has a right upper lobe nodular density that was noted before. He is resting comfortably in bed. No other new complaints otherwise for now On today's evaluation of 05/09/2023, the patient is being seen for a follow-up. Creatinine is at 2.2 with a BUN of 30. The patient is receiving IV Bactrim. Still symptomatic. Still having cough and congestion and producing limited amount of mucus. Chest x-ray from yesterday showed lower lobe bilaterally pulmonary infiltrates and the patient's procalcitonin level is at 0.24. Remains on oxygen and he is still on 3 L O2 nasal cannula. No interval worsening shortness of breath. Nevertheless, no significant improvement. On 05/10/2023, the patient denies having any major improvement in his overall respiratory status. Remains on IV Bactrim. Creatinine is at 2.2. No new comp laints otherwise for now. Remains on 3 L of oxygen by nasal cannula. No pleurisy or hemoptysis or chest pain. Afebrile. ID is on the case. Feels weak and lethargic and no altered mentation. No other new complaints otherwise for now. The patient is seen today May 11, 2023 for follow-up on the regular medical floor. He is resting in bed. Awake and alert in no acute distress. Continues with a loose productive cough. Maintaining O2 saturations in the upper 90s on 4 L/min per nasal cannula. Sodium 134. Potassium 5.1. Bicarb 27. BUN 36. Creatinine 2.41. Most recent bronchoscopy lavage cultures on 05/01/2023 were positive for stenotrophomonas maltophilia. He is currently on Bactrim and Zosyn. Infectious diseases following. He remains on DuoNeb ventilations, Pulmicort and Perforomist inhalations, Solu-Medrol. Lovenox for DVT prophylaxis. The patient is seen today May 12, 2023 in follow-up on the regular medical floor. He is currently sitting up at the bedside. Awake and alert in no acute distress. He has ongoing issues with shortness of breath mostly on exertion. S till with lots of cough and congestion. He is maintaining O2 saturations up to 100% on 5 L high flow nasal cannula. He is afebrile. Hemodynamically stable. White count 4.5. Hemoglobin 7.9. Platelets 158. BUN 2.38. C-reactive protein 4.4. Procalcitonin 0.30. He remains on DuoNeb inhalations, Pulmicort and Perforomist inhalation, Singulair, Mucinex and Solu-Medrol. Lovenox for DVT prophylaxis. He remains on antibiotics in the form of Zosyn and Bactrim Patient is seen today May 13, 2023 in follow-up on the regular medical floor. He is awake and alert in no acute distress. Sitting up at the bedside. He is breathing a bit easier today compared to yesterday. Less wheezing. He has been slow to progress. Sputum culture positive for gram-negative bacilli. He remains on Bactrim and Zosyn. Continued on bronchodilators and steroids. Maintaining O2 saturations in the high 90s on 5 L nasal cannula. Afebrile. Hemodynamically stable. The patient is seen today May 14, 2023 in follow-up on the regular medical floor. He is up ambulating in his room. Awake and alert in no acute distress. Feeling a bit better today compared to yesterday. Still requiring 4 L of oxygen to maintain O2 saturations in the 90s. Follow-up chest x-ray continues to show chronic bilateral pleural effusions with scattered mid and lower lung zone infiltrates with bands of atelectasis. No significant change. Sputum culture positive for E. coli. Creatinine 2.48. GFR 24. His Bactrim was discontinued. He is currently on doxycycline and Zosyn. Remains on bronchodilators and steroids. Lovenox for DVT prophylaxis. The patient is seen today May 15, 2023 in follow-up on the regular medical floor. He is awake and alert in no acute distress. Continues to improve daily. He has been slow to progress. Continues to maintain good O2 saturations in the 90s on 3 L/min per nasal cannula. Sputum culture was positive for E. coli and Jaimie. Creatinine 2.50. He is on Lasix 40 mg twice daily per nephrology. Continued on bronchodilators, steroids, Singulair. Remains on antibiotics in t he form of Zosyn and doxycycline. Lovenox for DVT prophylaxis. The patient is seen today May 16, 2023 in follow-up on the regular medical floor. He is currently sitting up at the bedside. Awake and alert in no acute distress. Continues to feel better each day. No worsening shortness of breath, cough or congestion. Continues to maintain good O2 saturations in the mid 90s on 3 L/min per nasal cannula. Afebrile. Hemodynamically stable. Sputum cultures positive for E. coli and Jaimie. Sodium 135. Potassium 3.9. Bicarb 26. BUN 59. Creatinine 2.47. Glucose 296. Continued on bronchodilators, steroids, Singulair. Remains on antibiotics in the form of Zosyn and doxycycline. Lovenox for DVT prophylaxis. The patient is seen today May 17, 2023 in follow-up on the regular medical floor. He remains awake and alert in no acute distress. Continues to maintain O2 saturations in the 90s on 2 L/min per nasal cannula. Has been afebrile. Hemodynamically stable. Chest x-ray continues to show ongoing bibasilar opacities with moderate right and small left pleural effusions. This appears chronic in nature and unchanged. Sputum culture was positive for E. coli and Jaimie. He remains on Zosyn. Continued on bronchodilators and steroids. Continued on oral diuretics. The patient is seen today May 18, 2023 in follow-up on the regular medical floor. He is sitting up in bed. Awake and alert in no acute distress. Feeling nearly back to his baseline. No worsening shortness of breath, cough or congestion. Sputum culture was positive for E. coli and Jaimie. He remains on Zosyn. Continued on bronchodilators and steroids. Continued on oral diuretics. Sodium 144. Potassium 3.8. Bicarb 29. BUN 71. Creatinine 2.1. Glucose 189. Objective - Vital Signs Vital signs: Vital Signs Temp 97.7 F 05/18/23 07:10 Pulse 84 05/18/23 11:44 Resp 20 05/18/23 08:10 BP 150/75 05/18/23 07:10 Pulse Ox 92 L 05/18/23 07:10 FiO2 Intake & Output 05/17/23 05/18/23 05/18/23 18:59 06:59 18:59 Other: Voiding Method Toilet Toilet Urinal Urinal # Voids 6 3 # Bowel Movements 1 - Exam GENERAL EXAM: Alert, pleasant 77-year-old male, sitting up at the bedside, on 2 L nasal cannula, in no apparent distress. HEAD: Normocephalic. EYES: Normal reaction of pupils, equal size. NOSE: Clear with pink turbinates. THROAT: No erythema or exudates. NECK: No masses, no JVD. CHEST: No chest wall deformity. LUNGS: Equal air entry with faint crackles in the bilateral bases scattered rhonchi. Diminished. CVS: S1 and S2 normal with no audible murmur, regular rhythm. ABDOMEN: Dressing/binder in place. No hepatosplenomegaly, normal bowel sounds, no guarding or rigidity. SPINE: No scoliosis or deformity SKIN: No rashes CENTRAL NERVOUS SYSTEM: No focal deficits, tone is normal in all 4 extremities. EXTREMITIES: There is no peripheral edema. No clubbing, no cyanosis. Peripheral pulses are intact. - Labs CBC & Chem 7: 05/12/23 06:33 05/18/23 06:27 Labs: Abnormal Lab Results - Last 24 Hours (Table) 05/18/23 Range/Units 06:27 Anion Gap 13.20 H (4.00-12.00) mmol/L BUN 71.3 H (9.0-27.0) mg/dL Creatinine 2.1 H (0.6-1.5) mg/dL Est GFR (CKD-EPI) 31 L (>=60) BUN/Creatinine Ratio 33.95 H (12.00-20.00) Ratio Glucose 189 H (70-110) mg/dL Calcium 7.8 L (8.7-10.3) mg/dL Assessment and Plan Assessment: Acute COPD exacerbation with ongoing respiratory difficulties and cough and hypoxemic respiratory failure. The patient has recurrent respiratory tract infection with gram-negative bacteria including Pseudomonas/stenotrophomonas and E. coli and gram-positive bacteria including MRSA. The patient was recently treated with Zyvox for his MRSA infection. 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 The patient is symptomatic with excessive respiratory secretions and mucus production and ongoing shortness of breath. Sputum sample reveals E. coli. Follow-up chest x-ray showing similar findings with bilateral lower lobe pulmonary infiltrate/atelectasis. He remains on Zosyn. Remains on diuretics Severe COPD with chronic hypoxic respiratory failure maintained on Trelegy Ellipta on outpatient basis in addition to o[facility]eb [facility] Recurrent respiratory tract infection with Pseudomonas aeru ginosa/stenotrophomonas and the patient has been maintained on inhaled tobramycin on outpatient basis every other month Previous history of MRSA lung infection treated with Zyvox Chronic stage III kidney disease Severe tracheobronchomalacia Previous multiple bronchoscopies Previous history of a lung mass treated with SBRT and subsequent PET/CT showed no significant metabolic activity History of renal mass treated by cryotherapy Previous history of DVT and pulmonary embolism maintained on anticoagulation and the patient has factor V Leyden Hypertension Obstructive sleep apnea Diverticulosis with previous history of diverticulitis and the patient has undergone previous colectomy and colostomy for colonic perforation Chronic anemia of chronic disease Plan: The patient was seen and evaluated Labs and medications reviewed Transitioned to oral steroids Home once cleared by infectious disease and nephrology I have personally seen and examined the patient, performed the documentation and the assessment and plan as written. Number of minutes spent on the visit: 10.
--- NOTE | 2023-05-18 18:03 | P.DS ---
Providers Date of admission: 05/07/23 12:12 Expected date of discharge: 05/18/23 Attending physician: Brodie Cervantes Consults: 05/07/23 12:10 Consult Physician Urgent Consulting Provider: Ramona Cortez Consult Reason/Comments: MDRO pna Do you want consulting provider notified?: Yes Consult Physician Urgent Consulting Provider: Leandro Wise Consult Reason/Comments: MDRO PNA Do you want consulting provider notified?: Already Contacted 05/07/23 12:22 Consult Physician Urgent Consulting Provider: Anthony Heath Consult Reason/Comments: CKD, on bactrim Do you want consulting provider notified?: Yes Primary care physician: [facility] Course: Chief Complaint: Cough Patient is a 77-year-old male with a past medical history of COPD on home oxygen 2 L as needed, , history of bronchial stent placement/removal, CKD stage III, history of lung cancer, history of DVT, hypertension anxiety and prior history of smoking presents underwent extensive lysis of adhesions, small bowel resection and repair of incisional hernia on 02/09/2022.reversal of ostomy and repair of incisional hernia done on November 14, 2022.-. Patient send repeated pneumonias. Also had bronchoscopy with lavages Patient has been having respiratory infection outpatient. Was given 10-day course of Zyvox. Then had a break. Underwent bronchoscopy with lavage on May 01, [address] Cortez. Cultures have come back showing Stenotrophomonas maltophilia. Based on the cultures patient be admitted for IV antibiotics. Started on IV Bactrim. ID consulted Patient is coughing of sputum. Appetite is fair. Short of breath. Some wheezing. Normally uses 2 L of oxygen at home as needed currently using 3 L at all times. May 07: Patient remains on IV Bactrim being followed by ID. Waiting on sensitivity. To minocycline. Cough. Some sputum production. Tolerating diet. May 08: Some cough. Little sputum. Creatinine 2.2. ID is waiting for se nsitivity on minocycline. Remains on IV Bactrim. Eating well. Getting IV fluids being followed by nephrology. May 09: Not much change clinically. Continues on continue IV Bactrim. Pending further input from ID depending upon sensitivity. Tolerating diet. Discussed with Dr. Cortez. Possible bronchial lavage by Dr. Anita. Tomorrow May 10: Remains on IV Bactrim. Creatinine up to 2.41. Being followed by nephrology and ID. At this point no plan for lavage per pulmonary. May 11: Dose of Bactrim adjusted by pharmacy per ID. Short of breath. Congested cough. No plans for lavage per pulmonary. Other medications to continue. May 12: Remains on IV Bactrim. No sputum production. Breathing a bit better. Was increased on IV Solu-Medrol to 60 mg every 6 hours. By pulmonary some decrease in appetite.. May 13: No sputum production. Breathing slightly better. Remains on high-dose Solu-Medrol. Has been switched on to IV Zosyn. IV Bactrim resolved. Sputum cultures growing E. coli and Jaimie albicans. Also patient switched over to IV doxycycline May 14: Tired. Minimal sputum. Shortness of breath. Remains of high-dose of steroids. IV Zosyn. IV doxycycline. Nephrology put the patient on Lasix. May 15: Breathing better. Tolerating diet. No sputum. Remains on high-dose steroids. Remains on IV Zosyn and IV doxycycline. Up to the bathroom. May 16: Breathing better. Ambulating in the room. Continue current dose of Solu-Medrol per pulmonary. They are hoping for discharge tomorrow. Discussed with patient. May 17: Doing better. Patient be discharged on prednisone. Ceftin 5 mg twice daily for 7 days per ID. Lasix discussed. Including with nephrology. Patient to have a CBC BMP done in 3 days when he sees Dr. Lopez. 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 Patient's tobramycin is being managed by ID. Discussion and discharge planning more than 35 minutes Physical examination: VITAL SIGNS: 97.7, 84, 150 was 75, 92% on 2 L GENERAL: Sitting up, comfortable EYES: Pupils equal. Conjunctiva wisam l. HEENT: External appearance of nose and ears normal, oral cavity grossly normal. NECK: JVD not raised; masses not palpable. HEART: First and second heart sounds are normal; some edema. LUNGS: Respiratory rate normal, improved air entry ABDOMEN: Soft, nontender, liver spleen not palpable, no masses palpable. PSYCH: Alert and oriented x3; mood and affect tired l. MUSCULOSKELETAL:No Clubbing/cyanosis;muscles-grossly intact. OA INVESTIGATIONS, reviewed in the clinical context: May 17: Creatinine 2.1 Sputum culture [May 11] E. coli and Jaimie May 12: BUN 35 creatinine 2.65 creatinine 5 procalcitonin 0.3 May 08: Potassium 4.4 creatinine 2.2 May 07: White count 4.0 hemoglobin 8.7 platelets 176 potassium 4 creatinine 2.1 May 07, 2023: White count 4.6 hemoglobin 10.9 platelets 184 potassium 4.3 BUN 49 creatinine 1.94 EKG tracing personally reviewed by me-right bundle bud block. Sinus rhythm. PVC. Previous labs: Sputum culture [May 01] Stenotrophomonas maltophilia Assessment and plan: -Pneumonia secondary to Stenotrophomonas maltophilia diagnosed on sputum culture following bronchoscopy with lavage on May [address] Cortez: Sputum culture growing E. coli from [May 11]: Improving IV Bactrim discontinued because of worsening renal function. IV doxycycline and IV Zosyn s Discharged on Ceftin 5 mg twice daily for 7 days -Acute COPD exacerbation in an ex-smoker: Improving Peroformorist/Pulmicort nebulizer twice daily. Atrovent nebulizer. IV Solu-Medrol 60 mg every 6 Prednisone taper -Acute on chronic hypoxic respiratory failure: Better On home oxygen 2 L at night. Currently on 3 L at all times Chronic kidney disease stage III baseline creatinine level -Creatinine 1.4 -Acute kidney injury, likely ATN from Bactrim Creatinine peaked at 2.65. Now down to 2.1 Follow-up with Dr. Heath outpatient 1 week -Anemia of chronic kidney disease. Iron deficiency anemia. Has received IV iron in the past -Chronic hyperkalemia from underlying COPD Chronically on Lokelma. Low potassium diet -Reversal of colostomy and umbilical hernia repair on 11/14/2022. Wound care to continue Right upper lobe pulmonary nodule. Patient had PET scan and was treated with SBRT Obstructive sleep apnea not on CPAP Chronic hypoxic respiratory failure, from underlying COPD -on home oxygen 2 L at night -Chronic dysphagia On nectar thick liquids. Chin tuck History of DVT Essential Hypertension -Lopressor 25 mg twice a day Disposition: Home Past Medical History Past Medical History: Blood Disorder, Cancer, COPD, Deep Vein Thrombosis (DVT), GERD/Reflux, Hypertension, Pneumonia, Renal Disease Additional Past Medical History / Comment(s): currently exasperbated SOB and productive coughing,hx of pseudomonus lung infection, O2 @ 3L ATC, diverticulits, Factor V Leiden, hx of bronchial silicone stent now removed, PICC line in past now removed, past hx dialysis for kidney damage-was in the hospital for 1 month 2016-none currently, Stage 3 renal disease, Lung cancer - diagnosed and treated down in [place] 2018, colostomy for tx of hole in colon and bladder- later reversal History of Any Multi-Drug Resistant Organisms: MRSA, Other MDRO Date of last positivie culture/infection: 04/13/23 MRSA; 12/24/22 MDRO Pseudomonas MDRO Source:: Sputum-MDRO & MRSA Past Surgical History: Hernia Repair, Tonsillectomy Additional Past Surgical History / Comment(s): bronchoscopy, bronchial silicone stent, now removed, fatty tumor removed from chest area, COLONOSCOPY, alexandre cataract, incisional hernia repair, ileostomy/colostomy reversal Past Anesthesia/Blood Transfusion Reactions: Previous Problems w/ Anesthesia Additional Past Anesthesia/Blood Transfusion Reaction / Comment(s): "as turned black and blue from ETHER". FACTOR V LEIDEN. no problems w/ prior blood transfusion Past Psychological History: Anxiety Smoking Status: Former smoker Plan - Discharge Summary Discharge Rx Participant: No New Discharge Prescriptions: New Psyllium Husk 100% [Metamucil Packet] 6 gm PO DAILY packet Lactulose [Cephulac] 20 gm PO DAILY PRN ml PRN Reason: Constipation predniSONE [Deltasone] 60 mg PO DAILY #100 tab cefUROXime axetiL [Ceftin] 500 mg PO BID 7 Days #14 tab Continue Montelukast Sodium [Singulair] 10 mg PO HS Metoprolol Tartrate [Lopressor] 25 mg PO BID L.acidoph,Paracasei, B.lactis [Probiotic] 1 cap PO DAILY allopurinoL [Zyloprim] 100 mg PO HS Albuterol Sulfate [Ventolin HFA] 2 puff INHALATION RT-QID PRN PRN Reason: Shortness Of Breath Cyanocobalamin (Vitamin B-12) [Vitamin B-12] 1,000 mcg PO DAILY Folic Acid 1 mg PO DAILY Magnesium Oxide [Mag-Ox] 400 mg PO BID 30 Days #60 tab Doxazosin [Cardura] 4 mg PO HS Budesonide [Pulmicort] 0.5 mg INHALATION RT-BID Albuterol Nebulized [Ventolin Nebulized] 2.5 mg INHALATION RT-Q6H PRN PRN Reason: Shortness Of Breath ALPRAZolam [Xanax] 0.5 mg PO BID PRN PRN Reason: Anxiety Sodium Bicarbonate Tab 650 mg PO DAILY Fluticasone/Umeclidin/Vilanter [Trelegy Ellipta 100-62.5-25] 1 puff INHALATION RT-DAILY ALPRAZolam [Xanax] 0.5 mg PO HS guaiFENesin [guaiFENesin ER] 600 mg PO BID Cholecalciferol [Vitamin D3 (25 Mcg = 1000 Iu)] 75 mcg PO DAILY Aspirin EC [Ecotrin Low Dose] 81 mg PO DAILY Sodium Zirconium Cyclosilicate [Lokelma] 1 packet PO DAILY Tobramycin [Tobramycin Nebules] 300 mg IH DIRECTED polyethylene glycoL 3350 [Miralax] 17 gm PO DAILY PRN PRN Reason: Constipation Changed Furosemide [Lasix] 40 mg PO DAILY #30 tab Discharge Medication List Montelukast Sodium [Singulair] 10 mg PO HS 01/24/14 [History] Metoprolol Tartrate [Lopressor] 25 mg PO BID 07/25/16 [History] L.acidoph,Paracasei, B.lactis [Probiotic] 1 cap PO DAILY 09/01/18 [History] allopurinoL [Zyloprim] 100 mg PO HS 11/21/19 [History] Albuterol Sulfate [Ventolin HFA] 2 puff INHALATION RT-QID PRN 10/21/21 [History] Fluticasone/Umeclidin/Vilanter [Trelegy Ellipta 100-62.5-25] 1 puff INHALATION RT-DAILY 10/21/21 [History] Cyanocobalamin (Vitamin B-12) [Vitamin B-12] 1,000 mcg PO DAILY 07/02/22 [History] ALPRAZolam [Xanax] 0.5 mg PO HS 11/06/22 [History] Folic Acid 1 mg PO DAILY 11/06/22 [History] guaiFENesin [guaiFENesin ER] 600 mg PO BID 11/06/22 [History] Magnesium Oxide [Mag-Ox] 400 mg PO BID 30 Days #60 tab 11/10/22 [Rx] Aspirin EC [Ecotrin Low Dose] 81 mg PO DAILY 12/20/22 [History] Cholecalciferol [Vitamin D3 (25 Mcg = 1000 Iu)] 75 mcg PO DAILY 12/20/22 [History] Doxazosin [Cardura] 4 mg PO HS 12/20/22 [History] Albuterol Nebulized [Ventolin Nebulized] 2.5 mg INHALATION RT-Q6H PRN 04/30/23 [History] Budesonide [Pulmicort] 0.5 mg INHALATION RT-BID 04/30/23 [History] Sodium Zirconium Cyclosilicate [Lokelma] 1 packet PO DAILY 04/30/23 [History] Tobramycin [Tobramycin Nebules] 300 mg IH DIRECTED 04/30/23 [History] ALPRAZolam [Xanax] 0.5 mg PO BID PRN 05/07/23 [History] Sodium Bicarbonate Tab 650 mg PO DAILY 05/07/23 [History] polyethylene glycoL 3350 [Miralax] 17 gm PO DAILY PRN 05/07/23 [History] Furosemide [Lasix] 40 mg PO DAILY #30 tab 05/18/23 [Rx] Lactulose [Cephulac] 20 gm PO DAILY PRN ml 05/18/23 [Rx] Psyllium Husk 100% [Metamucil Packet] 6 gm PO DAILY packet 05/18/23 [Rx] cefUROXime axetiL [Ceftin] 500 mg PO BID 7 Days #14 tab 05/18/23 [Rx] predniSONE [Deltasone] 60 mg PO DAILY #100 tab 05/18/23 [Rx] Follow up Appointment(s)/Referral(s): Anthony Heath DO [STAFF PHYSICIAN] - 06/02/23 9:00 am Rohit Munguia MD [STAFF PHYSICIAN] - 1-2 days Ramona Cortez MD [STAFF PHYSICIAN] - 06/03/23 9:00 am Activity/Diet/Wound Care/Special Instructions: dc antibiotics per dr wise Discharge Disposition: HOME SELF-CARE
[2023-05-18] MEDS ORDERED: SYMBICORT 160-4.5 MCG INHALER INHALATION SCH (20:00)
[2023-05-19] MEDS ORDERED: predniSONE 20 MG TAB PO SCH (09:00)
== END 2023-05-18 14:47 | disposition home or self-care (01) | DRG 177 ==
LOC: EC 09:42 → 4SSUR 12:12
PROVIDERS: ADMIT Hospitalist; ATTEND Hospitalist
DX: J15.69 Pneumonia due to other Gram-negative bacteria (principal); B37.1 Pulmonary candidiasis; N17.0 Acute kidney failure with tubular necrosis; I50.33 Acute on chronic diastolic (congestive) heart failure; I13.0 Hypertensive heart and chronic kidney disease with heart failure and stage 1 through stage 4 chronic kidney disease, or unspecified chronic kidney disease; J44.1 Chronic obstructive pulmonary disease with (acute) exacerbation; J44.0 Chronic obstructive pulmonary disease with (acute) lower respiratory infection; Z16.23 Resistance to quinolones and fluoroquinolones; Z16.24 Resistance to multiple antibiotics; J15.5 Pneumonia due to Escherichia coli; D63.1 Anemia in chronic kidney disease; F41.9 Anxiety disorder, unspecified; G47.33 Obstructive sleep apnea (adult) (pediatric); I25.10 Atherosclerotic heart disease of native coronary artery without angina pectoris; N18.32 Chronic kidney disease, stage 3b; Z93.3 Colostomy status; I07.1 Rheumatic tricuspid insufficiency; I45.10 Unspecified right bundle-branch block; D50.9 Iron deficiency anemia, unspecified; R13.10 Dysphagia, unspecified; E87.5 Hyperkalemia; Z90.49 Acquired absence of other specified parts of digestive tract; Z87.01 Personal history of pneumonia (recurrent); Z86.711 Personal history of pulmonary embolism; Z86.14 Personal history of Methicillin resistant Staphylococcus aureus infection; Z85.118 Personal history of other malignant neoplasm of bronchus and lung; Z99.81 Dependence on supplemental oxygen; Z86.718 Personal history of other venous thrombosis and embolism; Z87.19 Personal history of other diseases of the digestive system; Z98.42 Cataract extraction status, left eye; Z98.41 Cataract extraction status, right eye; Z88.2 Allergy status to sulfonamides; Z91.041 Radiographic dye allergy status
CPT/HCPCS: 36415; 71045; 80048; 80053; 82565; 83735; 84145; 85025; 86140; 87070; 87077; 87186; 87205; 93005; 94640; 94667; 94668; 94760; 96372; 96374; 96376; 99285

== ENCOUNTER → 2023-06-04 | Outpatient (CLI) | payer MEDICARE, BC | END | disposition home or self-care (01) | LOC: LABWHC1 06:47 | PROVIDERS: ATTEND Internal Medicine Critical Care Medicine | DX: J15.1 Pneumonia due to Pseudomonas (principal) | CPT/HCPCS: 87070; 87205 ==

== ENCOUNTER → 2023-07-31 | Outpatient (CLI) | payer MEDICARE, BC ==
--- NOTE | 2023-08-02 09:41 | PE ---
EXAMINATION TYPE: PET CT fusion skull to thigh DATE OF EXAM: 07/31/2023 CLINICAL INDICATION:Male, 77 years old with history of R91.1 Nodule; TECHNIQUE: Following the intravenous administration of 10.67 mCi of F-18 FDG, whole body images are performed from the skull base to the midthigh. Images are reviewed on the computer in the coronal, axial, and sagittal planes. Reconstructed rotating images are created on independent workstation and reviewed on the computer. A non-contrast CT is performed in conjunction with the PET scan. Glucose level 127 mg/dL CT DLP: 428 mGycm, Automated exposure control for dose reduction was used. COMPARISON: CT 12/23/2022, PET/CT 08/26/2022. , FINDINGS: FINDINGS: Mediastinal SUV mean is 1.54. Hepatic parenchyma SUV mean is 1.98. SKULL BASE AND NECK: No suspicious radiotracer activity. CHEST, MEDIASTINUM, AND HILAR REGION: * Solid right upper lobe nodule measuring up to 1.7 cm not significantly changed from 12/23/2022. Ma x SUV 0.9, previously 1.1, 0.9. * There is bilateral pleural effusions. * Similar morphology to the mediastinal lymph nodes. No abnormal FDG activity within the mediastinal lymph nodes. ABDOMEN AND PELVIS: Areas of abnormal FDG activity near the surgical bed are no longer visualized. OSSEOUS STRUCTURES: No suspicious radiotracer activity. OTHER CT: Moderate to severe calcified plaque right carotid bulb level with more mild calcified plaqu e left carotid bulb level. Mild to moderate coronary artery calcification which is noted marker for u nderlying coronary artery disease. Nonspecific scattered hypodense lesions throughout the liver favor ing thin-walled cysts. No suspicious hypermetabolic uptake noted. Cortical thinning of both kidneys c onsistent with product of chronic medical renal disease. Colonic diverticula. Mildly enlarged prostat e gland consistent with BPH. Central calcifications are present. Left-sided ostomy. Slight Scoliotic curvature in the lumbar spine. Multilevel spurring and disc space narrowing. IMPRESSION: 1. Right upper lobe pulmonary nodule which is not significantly changed in size compared to 12/24/19 23 and has low levels FDG activity. If not already performed consider robotic guided tissue sampling for definitive diagnosis. 2. No obvious FDG activity near the colonic surgical bed on today's exam.
== END | disposition home or self-care (01) ==
LOC: RADPETMAIN 13:50
PROVIDERS: ATTEND Internal Medicine Critical Care Medicine
DX: R91.1 Solitary pulmonary nodule (principal)
CPT/HCPCS: 78815

== ENCOUNTER → 2023-09-23 | Outpatient (CLI) | payer MEDICARE, BC | END | disposition home or self-care (01) | LOC: LABPRL 12:49 | PROVIDERS: ATTEND Internal Medicine Critical Care Medicine | DX: J44.9 Chronic obstructive pulmonary disease, unspecified (principal); Z86.14 Personal history of Methicillin resistant Staphylococcus aureus infection | CPT/HCPCS: 87070; 87205 ==

== ENCOUNTER → 2024-08-18 | Outpatient (CLI) | payer MEDICARE, BC ==
--- NOTE | 2024-08-19 18:31 | PE ---
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 Images are reviewed on the computer in the coronal, axial, and sagittal planes. Reconstructed rotating images are created on independent workstation an d reviewed on the computer. A non-contrast CT is performed in conjunction with the PET scan. Glucos e level 111 mg/dL CT DLP: 862 mGycm, Automated exposure control for dose reduction was used. COMPARISON: CT None, PET/CT 07/31/2023, MRI: None FINDINGS: Mediastinal SUV mean is 2.3. Hepatic parenchyma SUV mean is 2.. SKULL BASE AND NECK: Right neck lymph node now with increased radiotracer uptake max SUV 3.3 measuring 11 mm in short axis previously 18 mm in short axis. CHEST, MEDIASTINUM, AND HILAR REGION: * Solid right upper lobe nodule measuring up to 1.9 cm, previously 1.7 cm not significantly changed from 12/23/2022. Max SUV 3.9, previously 0.9, 1.1, 0.9. * Nodular thickening more posterior and medial max SUV 3.89. Uptake along the right costophrenic ang le max SUV 6.4. Uptake along the left costophrenic angle masses V7.2. * There is bilateral pleural effusions. * Similar morphology to the mediastinal lymph nodes. No abnormal FDG activity within the mediastinal lymph nodes. ABDOMEN AND PELVIS: Areas of abnormal FDG activity near the surgical bed are no longer visualized. No abnormal uptake wit hin the liver to scattered cysts are present. OSSEOUS STRUCTURES: No suspicious radiotracer activity. OTHER CT: Moderate to severe calcified plaque right carotid bulb level with more mild calcified plaqu e left carotid bulb level. Mild to moderate coronary artery calcification which is noted marker for u nderlying coronary artery disease. Nonspecific scattered hypodense lesions throughout the liver favor ing thin-walled cysts. No suspicious hypermetabolic uptake noted. Cortical thinning of both kidneys c onsistent with product of chronic medical renal disease. Colonic diverticula. Mildly enlarged prostat e gland consistent with BPH. Central calcifications are present. Left-sided ostomy. Slight Scoliotic curvature in the lumbar spine. Multilevel spurring and disc space narrowing. IMPRESSION: 1. Right upper lobe pulmonary nodule has increased in FDG activity compared to prior 07/31/2023 radha rning for active malignancy. Additionally there is a right low neck lymph node now with increased rad iotracer uptake concerning for malignancy. 2. Uptake within the bilateral lower lungs concerning for infection. Correlate clinically. 3. No obvious FDG activity near the colonic surgical bed on today's exam. [facility], , 08/19/2024 6:29 PM
== END | disposition home or self-care (01) ==
LOC: RADPETMAIN 12:17
PROVIDERS: ATTEND Family Medicine
DX: C34.2 Malignant neoplasm of middle lobe, bronchus or lung (principal); R91.1 Solitary pulmonary nodule
CPT/HCPCS: 78815; A9552